=== PATIENT | male | born 1945 | race Caucasian/White ===

== ENCOUNTER 2020-11-25 16:16 | Emergency (ER) | payer MEDICARE, SELFPAY ==
[2020-11-25 16:26] VITALS: BP 157/113; PULSE 80; RESP 18; TEMP 36.6; O2SAT 100
--- NOTE | 2020-11-25 16:44 | ED.EAR ---
HPI - Ear Problem General Chief complaint: Ear Stated complaint: rt ear clogged Source: patient Mode of arrival: ambulatory Limitations: no limitations History of Present Illness HPI Narrative: Patient is a 75-year-old male who presents complaining with decreased hearing and right ear pain starting this a.m. Patient reports awaking and saw discharge from right ear. He denies fever, headache or known injury. He denies all other complaints at this time. Patient has not taking [id number]-[id number] medications prior to arrival. MD Complaint: ear pain, ear discharge and decreased hearing Location: right ear Related Data Home Medications Medication Instructions Recorded Confirmed ezetimibe 10 mg PO DAILY 11/25/20 11/25/20 hydrochlorothiazide 25 mg PO DAILY 11/25/20 11/25/20 Allergies Allergy/AdvReac Type Severity Reaction Status Date / Time cephalexin AdvReac Severe Rash Verified 11/25/20 16:46 Review of Systems Review of Systems: CONSTITUTIONAL: Denies fever, chills, or sweats. EYES: Denies visual changes, redness, or discharge. ENT: Reports right otalgia and decreased. CARDIOVASCULAR: Denies chest pain, palpitations, or edema. RESPIRATORY: Denies cough or dyspnea. GASTROINTESTINAL: Denies abdominal pain, nausea, vomiting, or diarrhea. GENITOURINARY: Denies dysuria or hematuria. SKIN: Denies rash or itching. MUSCULOSKELETAL: Denies back pain, joint pain, or myalgia. NEUROLOGIC: Denies headache, numbness, dizziness, or weakness. PSYCHIATRIC: Denies anxiety or depression. [facility] Past Medical History Medical History (Updated 11/25/20 @ 17:57 by MELITA Knott) Arthritis Colon polyps HTN (hypertension) Hypercholesterolemia Umbilical hernia Surgical History Surgical History H/O Spinal surgery H/O umbilical hernia repair Hx of tonsillectomy Social History Social History (Updated 11/25/20 @ 17:58 by MELITA Knott) Smoking status: Never smoker Alcohol intake: current Alcohol use details: Occasional Substance use: never Living arrangements: with family Comments At the time of signature, I have reviewed and agree with nursing past medical, surgical, social, and family history unless otherwise noted. Please see nursing chart for further information. There is no relevant family history pertinent to the presenting complaint. Exam Narrative: GENERAL: Well-appearing, well-nourished, and in no acute distress. HEAD: Normocephalic, atraumatic. EYES: EOMI. No redness or drainage. Conjunctiva are normal. ENT: Mucous membranes pink and moist. Left TM normal, right ear canal filled with pus and small amount of blood in canal NECK: AROM. Supple. No lymphadenopathy. CHEST: No respiratory distress. HEART: Regular rate and rhythm. EXTREMITIES: Normal range of motion. SKIN: Warm, dry, no rash. NEURO: No focal deficits. Alert and oriented x3. Gait steady. PSYCH: Normal affect. No signs of depression or anxiety. Course Vital Signs Vital signs: Vital Signs Temperature 36.6 C 11/25/20 16:26 Pulse Rate 80 11/25/20 16:26 Respiratory Rate 18 11/25/20 16:26 Blood Pressure 157/113 H 11/25/20 16:26 Pulse Oximetry 100 11/25/20 16:26 Temperature 36.6 C 11/25/20 16:26 Pulse Rate 80 11/25/20 16:26 Respiratory Rate 18 11/25/20 16:26 Blood Pressure 157/113 H 11/25/20 16:26 Pulse Oximetry 100 11/25/20 16:26 Reviewed. Patient has been instructed to follow-up with his PCP regarding his blood pressure. Medical Decision Making Vital Signs Vital Signs: Vital Signs Temperature 36.6 C 11/25/20 16:26 Pulse Rate 80 11/25/20 16:26 Respiratory Rate 18 11/25/20 16:26 Blood Pressure 157/113 H 11/25/20 16:26 Pulse Oximetry 100 11/25/20 16:26 Temperature 36.6 C 11/25/20 16:26 Pulse Rate 80 11/25/20 16:26 Respiratory Rate 18 11/25/20 16:26 Blood Pressure 157/113 H 11/25/20 16:26 P
== END 2020-11-25 17:10 | disposition home or self-care (01) ==
PROVIDERS: Emergency Provider Nurse Practitioner; PCP Family Medicine Adolescent Medicine
DX: H66.011 Acute suppurative otitis media with spontaneous rupture of ear drum, right ear (principal); M19.90 Unspecified osteoarthritis, unspecified site; I10 Essential (primary) hypertension; E78.00 Pure hypercholesterolemia, unspecified
CPT/HCPCS: 99213; G0463

== ENCOUNTER → 2021-10-02 16:48 | Outpatient (CLI) | payer MEDICARE, SELFPAY ==
--- NOTE | ~2021-10-02 | MR_ITS ---
EXAMINATION: MR lumbar spine wo con DATE: 10/02/2021 17:56 INDICATION: Low back pain. Unspecified fall, initial encounter. TECHNIQUE: Magnetic resonance imaging (MRI) of the lumbar spine was performed without intravenous con trast. Sequences included sagittal T2-weighted FSE, sagittal T2-weighted FS FSE, sagittal T1-weighted FSE, and axial T2-weighted FSE. COMPARISON: None FINDINGS: There is 13 degrees dextroscoliosis of thoracolumbar spine. There is 4 mm retrolisthesis of L2 on L3 and L3 on L4. There is 3 mm anterolisthesis of L4 on L5. There is 7 mm retrolisthesis of L5 on S1. Vertebral body heights are normal. There is moderately decreased disc height at T12-L1 and L1 -L2, severely decreased disc height at L2-L3 and L3-L4, and mildly decreased disc height at L4-L5. Th ere is severely decreased disc height at L5-S1 with interbody fusion. Epidural lipomatosis is noted. There is ligamentum flavum hypertrophy at the disc levels from T12-L1 through L4-L5. The distal spina l cord signal intensity is normal. The conus medullaris is at L1. The following disc levels are speci fically discussed: T12-L1: The disc is bulging with superimposed left central and subarticular zone extrusion. There is moderate right and severe left facet joint osteoarthritis. There is mild bilateral neural foraminal s tenosis. There is mild central canal stenosis. There is moderate stenosis of left lateral recess. L1-L2: The disc is bulging. There is mild bilateral facet joint osteoarthritis. There is mild bilater al neural foraminal stenosis. There is mild central canal stenosis. L2-L3: The disc is bulging and has an annular fissure. There is moderate bilateral facet joint osteoa rthritis. There is moderate bilateral neural foraminal stenosis. There is mild central canal stenosis . There is moderate stenosis of left lateral recess. L3-L4: The disc is bulging and has an annular fissure. There is severe bilateral facet joint osteoart hritis. There is moderate bilateral neural foraminal stenosis. There is severe central canal stenosis . L4-L5: The disc is bulging and has an annular fissure. There is severe bilateral facet joint osteoart hritis. There is moderate bilateral neural foraminal stenosis. There is severe central canal stenosis . L5-S1: There is moderate bilateral facet joint hypertrophy. There is mild bilateral neural foraminal stenosis. There is mild central canal stenosis with posterior decompression. IMPRESSION: 1. Severe lumbar spondylosis. Reviewed, dictated and finalized at location A.
== END ==
PROVIDERS: PCP Family Medicine Adolescent Medicine; Visit Provider Physician Assistant
DX: R20.2 Paresthesia of skin (principal); M47.896 Other spondylosis, lumbar region
CPT/HCPCS: 72148

== ENCOUNTER → 2021-10-25 13:54 | Outpatient (CLI) | payer MEDICARE, SELFPAY ==
--- NOTE | ~2021-10-25 | XR_ITS ---
EXAMINATION: XR lumbar spine min 4V DATE: 10/25/2021 14:14 INDICATION: Back pain. TECHNIQUE: 4 views of lumbar spine including flexion and extension views were obtained. COMPARISON: Lumbar spine MRI 10/02/2021 FINDINGS: There is 22 degrees dextroscoliosis of thoracolumbar spine. There is 3 mm retrolisthesis of L2 on L3 and L3 on L4 and 5 mm anterolisthesis of L4 on L5. Vertebral body heights are normal. There is interbody fusion at L5-S1. There is severely decreased disc height from L1-L2 through L3-L4 and m oderately decreased disc height at L4-L5. There is multilevel severe facet joint osteoarthritis. The spine is hypomobile with flexion and extension. IMPRESSION: 1. Severe lumbar spondylosis. 2. Thoracolumbar dextroscoliosis. Reviewed, dictated and finalized at location A.
== END ==
PROVIDERS: PCP Family Medicine Adolescent Medicine; Visit Provider Neurological Surgery
DX: M47.896 Other spondylosis, lumbar region (principal); M41.9 Scoliosis, unspecified
CPT/HCPCS: 72110

== ENCOUNTER 2022-04-16 10:45 | Outpatient (CLI) | payer MEDICARE, SELFPAY ==
--- NOTE | ~2022-04-16 | CT_ITS ---
EXAMINATION: CT inject muscle 1-2 w imaging DATE: 04/16/2022 11:36 INDICATION: Right piriformis muscle pain. TECHNIQUE: The procedure including the risks, benefits, and alternatives was discussed with the patie nt. Risks discussed included bleeding and infection. The patient verbalized understanding of the risk s and agreed to proceed. The skin overlying the right piriformis muscle was prepped and draped in us ua sterile fashion. Anesthetic was administered with 1% lidocaine subcutaneously. A 22 gauge needl e was advanced under CT guidance into the right piriformis muscle. 2 mL 1% lidocaine and 1 mL 80 mg/m L Depo-Medrol were injected. The dose-length product was 180.99 mGy-cm. The needle was removed and th e entry site was cleaned and dressed. There were no immediate complications. FINDINGS: CT images demonstrate the needle tip in the right piriformis muscle. IMPRESSION: 1. CT-guided right piriformis muscle injection with local anesthetic and steroid. Reviewed, dictated and finalized at location A. TS PHYSIOLOGIST IMPRESSION: 1. CT-guided right piriformis muscle injection with local anesthetic and stero id.
== END 2022-04-16 10:46 | disposition home or self-care (01) ==
PROVIDERS: PCP Family Medicine Adolescent Medicine; Visit Provider Nurse Practitioner Family
DX: G57.01 Lesion of sciatic nerve, right lower limb (principal); M79.18 Myalgia, other site
CPT/HCPCS: 20552; 77012; J1040

== ENCOUNTER 2022-07-02 05:42 | Inpatient (IN) | payer MEDICARE, SELFPAY ==
[2022-07-02] VITALS (34 sets, daily range): BP systolic 88–118; BP diastolic 8–76; PULSE 70–105; RESP 15–23; TEMP 36.5–37.8; O2SAT 90–100; BMI 36.3
--- NOTE | ~2022-07-02 | CT_ITS ---
EXAMINATION: CT abdomen pelvis wo con DATE: 07/02/2022 07:08 INDICATION: Right lower quadrant abdominal pain. Nausea, vomiting, and diarrhea. TECHNIQUE: Computed tomography (CT) of the abdomen and pelvis was performed without intravenous contr ast. Automated exposure control and iterative reconstruction technique were employed. The dose-length product was 1496.19 mGy-cm. COMPARISON: None. FINDINGS: The visualized portions of the lung bases demonstrate mild atelectasis. No pleural effusion . The heart size is normal. No pericardial effusion. There is a small sliding hiatal hernia. The live r, gallbladder, spleen, pancreas, and adrenal glands are normal. There are cysts in the kidneys measu ring up to 2.1 cm on the left. There is a 1 mm stone in right kidney. There are bilateral inguinal he rnias containing fat. The prostate is mildly enlarged. There is diverticulosis of the colon without e vidence of diverticulitis. There are appendicoliths in the appendix, which is fluid-filled and dilate d to 16 mm with adjacent fat stranding, consistent with acute appendicitis. There is an umbilical her suzie containing fat. There are a few punctate foci of free intraperitoneal gas in the anterior abdomen . There is severe lumbar spondylosis. IMPRESSION: 1. Acute appendicitis. 2. Punctate foci of free intraperitoneal gas. In the absence of recent surgery, this finding is consi stent with perforated viscus (such as the appendix). 3. Umbilical hernia and inguinal hernias containing fat. 4. Small sliding hiatal hernia. Reviewed, dictated and finalized at location A. IMPRESSION: 1. Acute appendicitis. 2. Punctate foci of free intraperitoneal gas. In the absence of recent surgery, this finding is consistent with perforated viscus (such as the appendix). 3. Umbilical hernia and inguinal hernias containing fat. 4. Small sliding hiatal hernia.
--- NOTE | ~2022-07-02 | XR_ITS ---
XR abdomen NG/feed tube insert INDICATION: Evaluate NG tube position. TECHNIQUE: Limited KUB perform for evaluating NG tube . COMPARISON: No prior studies for comparison. FINDINGS: NG tube tip in the stomach. Visualized bowel gas pattern is unremarkable.There is bibasila r atelectasis. IMPRESSION: 1: NG tube tip in the stomach. Reviewed, dictated and finalized at location B.
--- NOTE | ~2022-07-02 | CT_ITS ---
EXAMINATION: CT abdomen pelvis wo con DATE: 07/05/2022 18:12 INDICATION: Perforated appendicitis. TECHNIQUE: Computed tomography (CT) of the abdomen and pelvis was performed without intravenous contr ast. Automated exposure control and iterative reconstruction technique were employed. The dose-length product was 1603.67 mGy-cm. COMPARISON: 07/02/2022 FINDINGS: Small bilateral pleural effusions with dependent atelectasis in the bilateral lower lobes. Heart size is normal. No pericardial effusion. Nasogastric tube extends into the body the stomach with distal t ip curving back to the fundus. Liver, gallbladder, spleen, pancreas and bilateral adrenal glands are normal. Bilateral renal cysts the largest measuring up to 2.3 cm the left kidney. Unchanged nonobstru cting 1 mm right renal stone. Interval appendectomy with suture line at the tip the cecum. There is a surgical drain extending from right to left across the deep pelvis. Minimal free fluid scattered thr oughout the mesentery. No abscess or free intraperitoneal gas. There are multiple gas and fluid-fille d loops of small bowel extending to the colon without melly dilation or discrete transition point to suggest obstruction and this is most consistent with postoperative ileus. There are few scattered col onic diverticula without adjacent inflammatory stranding to suggest diverticulitis. Gas and a Bowman c atheter within the partially decompressed bladder which appears otherwise unremarkable. Prostatomegal y. Bilateral inguinal hernias containing fat which extends to the scrotum on both the left and right. Small fat-containing umbilical hernia. No pathologically enlarged abdominal or pelvic lymphadenopath y. Mild lumbar dextrocurvature with severe spondylosis. IMPRESSION: 1. Status post appendectomy with minimal free fluid scattered throughout the mesentery but no evident abscess or free intraperitoneal gas. 2. Multiple gas and fluid-filled but not likely dilated loops of small bowel without discrete transit ion point most consistent with a postoperative ileus. 3. 1 mm right renal stone. 4. Fat-containing umbilical and bilateral inguinal hernias. Reviewed, dictated and finalized at location A. IMPRESSION: 1. Status post appendectomy with minimal free fluid scattered throughout the me sentery but no evident abscess or free intraperitoneal gas. 2. Multiple gas and fluid-filled but not likely dilated loops of small bowel wi thout discrete transition point most consistent with a postoperative ileus. 3. 1 mm right renal stone. 4. Fat-containing umbilical and bilateral inguinal hernias.
--- NOTE | 2022-07-02 05:50 | ED.ABDPAIN ---
HPI - Abdominal Pain General Chief Complaint: Abdominal Pain <Kristin Yates MD - Last Filed: 07/02/22 07:04> Stated Complaint: n/v/d <Kristin Yates MD - Last Filed: 07/02/22 07:04> Source: patient <Kristin Yates MD - Last Filed: 07/02/22 07:04> Mode of arrival: ambulatory <Kristin Yates MD - Last Filed: 07/02/22 07:04> Limitations: no limitations <Kristin Yates MD - Last Filed: 07/02/22 07:04> History of Present Illness HPI narrative: Patient is a 76-year-old male with a history of spinal stenosis, hypertension, hyperlipidemia, presenting to the emergency department for evaluation of right lower quadrant abdominal pain. Patient reports a sharp, aching pain in the right lower quadrant which has been constant over the past 12 hours. Patient reports associated fever, chills, nausea and decreased appetite secondary to the pain. He denies dysuria, hematuria, constipation or diarrhea. No radiation of the pain to the flank. No overlying skin changes or rashes. Patient does have a history of umbilical hernia repair over a decade ago, denies history of other abdominal surgeries. He denies any chest pain, cough, shortness of breath. Last oral intake yesterday morning, over 12 hours ago. Patient was transported via EMS, noted to have borderline hypotension in route packet. IV access was obtained, patient was initiated on IV fluid bolus. <Kristin Yates MD - Last Filed: 07/02/22 07:04> Related Data Home Medications: Home Medications Medication Instructions Recorded Confirmed aspirin 325 mg tablet 325 mg PO DAILY PRN fever 09/13/21 07/02/22 fexofenadine 180 mg tablet 180 mg PO DAILY 09/13/21 07/02/22 gabapentin 300 mg capsule 600 mg PO BID 12/20/21 07/02/22 <Kristin Yates MD - Last Filed: 07/02/22 07:04> Allergies/Adverse Reactions: Allergies Allergy/AdvReac Type Severity Reaction Status Date / Time nickel Allergy Mild Other Verified 07/02/22 12:40 cephalexin AdvReac Severe Rash Verified 07/02/22 12:40 <Kristin Yates MD - Last Filed: 07/02/22 07:04> Review of Systems Review of Systems: CONSTITUTIONAL: Reports fever and chills EYES: Denies visual changes, redness, or discharge. ENT: Denies rhinorrhea, congestion, sore throat, or otalgia. CARDIOVASCULAR: Denies chest pain, palpitations, or edema. RESPIRATORY: Denies cough or dyspnea. GASTROINTESTINAL: Reports abdominal pain in the right lower quadrant, nausea, denies diarrhea or constipation GENITOURINARY: Denies dysuria or hematuria. SKIN: Denies rash or itching. MUSCULOSKELETAL: Reports chronic lower back pain, not worsened from normal, joint pain, or myalgia. NEUROLOGIC: Denies headache, numbness, or weakness. <Kristin Yates MD - Last Filed: 07/02/22 07:04> [facility] Past Medical History Medical History: Medical History Acute right hip pain Arthritis Colon polyps HTN (hypertension) Hypercholesterolemia Low Back Pain Lumbar stenosis Piriformis syndrome Trochanteric bursitis, right hip Umbilical hernia <Kristin Yates MD - Last Filed: 07/02/22 07:04> Surgical History Surgical History: Surgical History H/O Spinal surgery (1984) H/O umbilical hernia repair (2011) Hx of tonsillectomy <Kristin Yates MD - Last Filed: 07/02/22 07:04> Family History Family History: Family History Father Acute myocardial infarction Heart disease Mother Acute myocardial infarction Heart disease <Kristin Yates MD - Last Filed: 07/02/22 07:04> Social History Social History: Social History Smoking status: Never smoker Second hand tobacco smoke exposure: Yes Alcohol intake: current Alcohol use details: Occasional Substance use: never Subs
[2022-07-02] MEDS: MORPHINE SULFATE (*CRX) 4 MG/ML INJ IV PUSH (05:57)
[2022-07-02] MEDS: ONDANSETRON INJ 4 MG/2 ML VIAL IV PUSH (05:57)
[2022-07-02] MEDS: SODIUM CHLORIDE 0.9% IV 1,000 ML 999 ML IV CONT ×3 (05:58→10:34)
[2022-07-02 06:24] LABS: Basophils Absolute Auto 0.1 K/mm3 (0.0-0.1); Basophils Percent Auto 0.6 % (0.2-1.2); Eosinophils Percent Auto 0.1 % (0-4.4); Hematocrit 52.7 % (42.0-52.0); Hemoglobin 15.6 g/dL (14.0-18.0); Immature Granulocyte Percent A 0.6 % (0-0.5); Lymphocytes Absolute Auto 1.77 K/mm3 (0.9-3.2); Lymphocytes Percent Auto 10.1 % (18.3-44.2); Mean Corpuscular HGB Conc 29.6 g/dl (32-36); Mean Corpuscular Hemoglobin 28.8 pg (26-34); Mean Corpuscular Volume 97.4 fl (80-100); Monocytes Absolute Auto 1.4 K/mm3 (0.1-0.6); Monocytes Percent Auto 8.1 % (2.6-8.5); Neutrophils Absolute Auto 14.1 K/mm3 (1.3-6.7); Neutrophils Percent Auto 80.5 % (45.5-73.1); Platelet Count Result 283 k/mm3 (150-375); Red Blood Count 5.41 M/mm3 (4.6-6.20); Red Cell Distribution Width 14.5 % (11.5-14.5); White Blood Count 17.5 K/mm3 (4.5-10.0)
[2022-07-02 06:45] LABS: Hypochromasia 1+ (NORMAL); Platelet Estimate Adequate (Adequate)
[2022-07-02 06:46] LABS: Schistocytes None Seen (NORMAL)
[2022-07-02 06:58] LABS: Estimated Glomerular Filt Rate 28
[2022-07-02 07:02] LABS: Lactic Acid Reflex 4.9 mmol/L (0.7-2.0)
[2022-07-02] MEDS: ceFAZolin 2 GM/D5W 50 ML 2 GM/50 ML BAG IVPB (08:11)
[2022-07-02 08:13] LABS: Alanine Aminotransferase 22 U/L (6-50); Albumin Level 3.6 g/dL (3.5-5.1); Alkaline Phosphatase 78 U/L (38-126); Anion Gap 9 mmol/L (8-16); Aspartate Amino Transferase 22 U/L (17-59); Bilirubin,Total 0.9 mg/dL (0.2-1.3); Blood Urea Nitrogen 30 mg/dL (9-20); Calcium 8.1 mg/dL (8.4-10.2); Carbon Dioxide 24 mmol/L (22-30); Chloride 102 mmol/L (98-107); Estimated Glomerular Filt Rate 35; Glucose 123 mg/dL (65-110); Lipase 29 U/L (23-300); Potassium 4.9 mmol/L (3.4-5.0); Sodium 135 mmol/L (137-145)
[2022-07-02] MEDS: AZTREONAM 1 GM in SODIUM CHLORIDE 0.9% IV 50 ML 100 ML IVPB ×2 (08:34→18:18)
--- NOTE | 2022-07-02 08:54 | PM.IMHP ---
H&P: HPI History of Present Illness Date/Time: 07/02/22 08:54 Chief Complaint: RLQ abdominal pain Narrative: This is a 76-year-old man who presented to the ER today with complaints of right lower quadrant abdominal pain x 12 hours. He reports going to bed in his normal state of health and waking up through the night Review of Systems Review of Systems: All systems reviewed & are unremarkable except as noted in HPI and below Constitutional: Constitutional: Reports no additional constitutional complaints, Reports chills, Denies fatigue, Denies fever(s) and Denies poor appetite Eyes: Eyes: Reports no additional eye complaints ENT: Reports system reviewed and no additional complaints, except as documented and Denies dizziness Cardiovascular: Cardiovascular: Reports no additional cardiovascular complaints, Denies chest pain and Denies leg edema Respiratory: Respiratory: Reports no additional respiratory complaints, Denies cough and Denies dyspnea Gastrointestinal: Gastrointestinal: Reports as per HPI, Reports no additional gastrointestinal complaints, Reports abdominal pain, Denies change in stool character, Denies coffee ground emesis, Reports nausea, Reports vomiting and Denies hematemesis Genitourinary: Genitourinary: Reports no additional male genitourinary complaints Musculoskeletal: Musculoskeletal: Reports no additional musculoskeletal complaints, Denies abnormal gait and Denies joint swelling Integumentary/Breasts: Skin/Breast: Reports system reviewed and no additional complaints, except as docu Neurologic: Reports system reviewed and no additional complaints, except as documented, Denies headache(s), Denies focal weakness, Denies numbness and Denies tingling PMFSH Past Medical History Medical History Acute right hip pain Arthritis Colon polyps HTN (hypertension) Hypercholesterolemia Low Back Pain Lumbar stenosis Piriformis syndrome Trochanteric bursitis, right hip Umbilical hernia Surgical History Surgical History H/O Spinal surgery (1984) H/O umbilical hernia repair (2011) Hx of tonsillectomy Family History Family History Father Acute myocardial infarction Heart disease Mother Acute myocardial infarction Heart disease Social History Social History Smoking status: Never smoker Second hand tobacco smoke exposure: Yes Alcohol intake: current Alcohol use details: Occasional Substance use: never Substance use type: does not use Living arrangements: with family Occupation/Education: retired Gender identity (if verbalized by the patient): Male Spiritual care concerns: No Agree to blood products: Yes Meds Home Medications and Allergies Home Medications Medication Instructions Recorded Confirmed Type aspirin 325 mg tablet 325 mg PO DAILY PRN fever 09/13/21 03/19/22 History fexofenadine 180 mg tablet 180 mg PO DAILY 09/13/21 03/19/22 History gabapentin 300 mg capsule 600 mg PO BID 12/20/21 03/19/22 History diclofenac sodium 75 mg See Rx Instructions .Route 03/17/22 03/19/22 Rx tablet,delayed release .COMPLEX #180 tabs ezetimibe 10 mg tablet See Rx Instructions .Route 03/17/22 03/19/22 Rx .COMPLEX #90 tabs hydrochlorothiazide 25 mg tablet See Rx Instructions .Route 03/17/22 03/19/22 Rx .COMPLEX #90 tabs lisinopril 40 mg tablet 40 mg PO DAILY #90 tabs 03/19/22 03/19/22 Rx tramadol 50 mg tablet 50 mg PO Q4H PRN pain #90 tabs 04/16/22 Rx levofloxacin 500 mg tablet 500 mg PO DAILY #10 tabs 05/14/22 Rx benzonatate 200 mg capsule 200 mg PO TID PRN cough #30 caps 05/21/22 Rx Allergies Allergy/AdvReac Type Severity Reaction Status Date / Time nickel Allergy Mild Other Verified 07/02/22 05:50 cephalexin AdvReac Severe Rash Verified 07/02/22 05:50
--- NOTE | 2022-07-02 09:08 | PM.CNGS ---
Assessment and Plan Assessment and plan (1) Acute perforated appendicitis: Code(s): K35.32 - Acute appendicitis with perforation, localized peritonitis, and gangrene, without abscess Status: Acute Assessment and Plan: CT evidence of acute perforated appendicitis. No abscess seen on CT. He also presents with sepsis and acute renal failure. Discussed treatment options with the patient of both non operative versus surgical management with the patient. We discussed a laparoscopic appendectomy under general anesthesia. Description of the procedure, risks, benefits, alternatives, and expected recovery were discussed with the patient in detail. Also discussed the possibility of having to convert to an open procedure if necessary. Patient wishes to proceed with surgery. Given the concern of perforation and presentation with sepsis/RIC, he will require IV antibiotics and monitoring postoperatively. We would recommend to switch to IV aztreonam and metronidazole for broad-spectrum IV antibiotics. Continue IV fluid resuscitation, analgesics, and NPO status. (2) Sepsis: Code(s): A41.9 - Sepsis, unspecified organism Status: Acute Assessment and Plan: Criteria met on admission with hypotension, leukocytosis, acute renal failure, lactic acidosis. Secondary to perforated appendicitis. Blood cx pending. Continue broad-spectrum IV antibiotics and IV fluid resuscitation. Plan to proceed to the OR for urgent appendectomy today. (3) RIC (acute kidney injury): Code(s): N17.9 - Acute kidney failure, unspecified Status: Acute Assessment and Plan: Creatinine 2.3 on admission. Labs from December 2021 were normal. This improved already with IV fluid resuscitation. Likely related to sepsis/dehydration. Continue IV fluids and monitor labs. (4) HTN (hypertension): Code(s): I10 - Essential (primary) hypertension Status: Acute Plan I have discussed the patient's case and plan of care with Dr. Moreno. Thank you for allowing us to see the patient in consultation and we will continue to follow along with you. History of Present Illness Consult details Consult date: 07/02/22 Reason for consult: other (Acute perforated appendicitis) Requesting physician: Miguel Angel Comer MD Narrative: This is a 76-year-old man who presented to the ER today with complaints of right lower quadrant abdominal pain x 12 hours. He reports going to bed last night feeling well, and waking up with right lower quadrant abdominal pain and chills. The pain and chills continued to wake him up throughout the night. He developed nausea with 2 episodes of vomiting. His abdominal pain continued to worsen, and he presented to the ER this morning for further evaluation. Denies ever having this pain in the past. Labs were significant for a white blood cell count of 17,500, creatinine 2.3, GFR 28, lactic acid 4.9. CT scan of the abdomen and pelvis without contrast showed acute appendicitis with punctate foci of free intraperitoneal gas likely perforated appendicitis, umbilical hernia and inguinal hernias containing fat, and small sliding hiatal hernia. In the ER, he was found to be hypotensive with a blood pressure of 92/60 and as low as 88/58. His blood pressure improved with IV fluids. He has been afebrile. Our service was consulted by the ED physician for the acute perforated appendicitis. He is now seen in the ER. His abdominal pain has improved significantly after receiving analgesics in the ER. He was given 1 dose of Ancef IV in the ER. Remote history of an umbilical hernia repair. His home medication list has aspirin 325 mg daily listed and he reports only taking aspirin occasionally when he has a headache. This is not a regularly scheduled medication. Review of Systems Review of Systems: All systems reviewed & are unremarkable except as noted in HPI and below Constitutional: Constitutional: Reports no additional constitutional comp
[2022-07-02] MEDS: metroNIDAZOLE 500 MG/ISO 100ML 500 MG/100 ML BAG 100 MG IVPB ×3 (09:26→23:44)
[2022-07-02 09:45] LABS: Reflex Lactic Acid Yes or No Add Lactic
--- NOTE | 2022-07-02 09:51 | PC.NURSE ---
Hospitalist in ED to evaluated pt and gave Verbal order for 1 more NS bolus
--- NOTE | 2022-07-02 10:42 | ECG_ITS ---
Measurements Intervals [place] Rate: 86 P: 31 IL: 144 QRS: -20 QRSD: 98 T: 52 QT: 370 QTc: 444 Interpretive Statements SINUS RHYTHM DELAYED PRECORDIAL R/S TRANSITION LOW QRS VOLTAGE IN PRECORDIAL LEADS BASELINE WANDER- I, II BORDERLINE ECG NO PREVIOUS ECG AVAILABLE FOR COMPARISON Electronically Signed On 07-02-2022 11:06:13 CDT by Sammy Spear D.O.
[2022-07-02 10:48] LABS: Appearance Urine Cloudy (Clear); Bilirubin Urine 1+ (Negative); Blood Urine Negative (Negative); Color Urine Dark Yellow (Yellow); Glucose Urine UA Negative (Negative); Ketones Urine Trace mg/dL (Negative); Leukocyte Esterase Ur Trace LEU/UL (Negative); Nitrate Urine Negative (Negative); Protein Urine Trace mg/dL (Negative); Specific Grav Ur 1.022 (1.001-1.035)
[2022-07-02 11:20] LABS: Bacteria Urine 1+ /hpf; Mucus Urine Few /lpf; RBC Urine 0-2 /hpf (0-2); Squamous Epithelial Cell Urine Rare /hpf (Few)
[2022-07-02 11:27] LABS: Add Urine Microscopic? YES
[2022-07-02 11:44] LABS: Lactic Acid Reflex 2.1 mmol/L (0.7-2.0)
--- NOTE | 2022-07-02 12:07 | PM.IMHP ---
H&P: HPI History of Present Illness Date/Time: 07/02/22 12:07 Chief Complaint: severe abdominal pain Narrative: This is a 76-year-old man who presented to the ER today with complaints of right lower quadrant abdominal pain x 12 hours.? He reports going to bed last night feeling well, and waking up with right lower quadrant abdominal pain and chills.? The pain and chills continued to wake him up throughout the night.? He developed nausea with 2 episodes of vomiting.? His abdominal pain continued to worsen, and he presented to the ER this morning for further evaluation.? Labs were significant for a white blood cell count of 17,500, creatinine 2.3, GFR 28, lactic acid 4.9.? CT scan of the abdomen and pelvis without contrast showed acute appendicitis with punctate foci of free intraperitoneal gas likely perforated appendicitis, umbilical hernia and inguinal hernias containing fat, and small sliding hiatal hernia.? In the ER, he was found to be hypotensive with a blood pressure of 92/60 and as low as 88/58.? His blood pressure? improved with IV fluids.? He has been afebrile.? He was given 1 dose of Ancef IV in the ER.? general surgery was consulted. Review of Systems Review of Systems: All systems reviewed & are unremarkable except as noted in HPI and below Constitutional: Constitutional: Reports no additional constitutional complaints, Reports chills, Denies fatigue, Denies fever(s), Reports night sweats and Denies poor appetite Eyes: Eyes: Reports no additional eye complaints ENT: Reports system reviewed and no additional complaints, except as documented and Denies dizziness Cardiovascular: Cardiovascular: Reports no additional cardiovascular complaints, Denies chest pain at rest, Denies chest pain with activity, Reports leg edema (intermittent chronic foot/ankle swelling), Denies dyspnea on exertion and Denies orthopnea Respiratory: Respiratory: Reports no additional respiratory complaints, Denies cough and Denies dyspnea Gastrointestinal: Gastrointestinal: Reports as per HPI, Reports no additional gastrointestinal complaints, Reports abdominal pain, Denies bloating, Denies change in stool character, Denies coffee ground emesis, Denies constipation, Denies diarrhea, Reports nausea and Denies hematemesis Genitourinary: Genitourinary: Reports no additional male genitourinary complaints and Denies dysuria Musculoskeletal: Musculoskeletal: Reports no additional musculoskeletal complaints, Denies abnormal gait and Denies joint swelling Integumentary/Breasts: Skin/Breast: Reports system reviewed and no additional complaints, except as docu Neurologic: Reports system reviewed and no additional complaints, except as documented, Denies headache(s), Denies focal weakness, Denies numbness and Denies tingling PMFSH Past Medical History Medical History Acute right hip pain Arthritis Colon polyps HTN (hypertension) Hypercholesterolemia Low Back Pain Lumbar stenosis Piriformis syndrome Trochanteric bursitis, right hip Umbilical hernia Surgical History Surgical History H/O Spinal surgery (1984) H/O umbilical hernia repair (2011) Hx of tonsillectomy Family History Family History Father Acute myocardial infarction Heart disease Mother Acute myocardial infarction Heart disease Social History Social History Smoking status: Never smoker Second hand tobacco smoke exposure: Yes Alcohol intake: current Alcohol use details: Occasional Substance use: never Substance use type: does not use Living arrangements: with family Occupation/Education: retired Gender identity (if verbalized by the patient): Male Spiritual care concerns: No Agree to blood products: Yes Meds Home Medications and Allergies [facility]
--- NOTE | 2022-07-02 12:27 | WPDHPUPDATE1 ---
History and Physical Update Update Date/Time: 07/02/22 12:27 History and Physical has been reviewed, including an updated exam of the patient. There are NO changes in the patient's condition. Risks, benefits, and alternatives have been discussed and questions answered. Patient agrees to proceed with procedure.
[2022-07-02] MEDS: LACTATED RINGERS 1,000 ML 30 ML IV CONT ×2 (12:30→15:15)
--- NOTE | 2022-07-02 13:24 | WPDANESEPPF ---
Anes - Initial Pre Proc Eval Procedure: Operation Date: 07/02/22 13:30 Proposed Procedures p Laparoscopic Appendectomy - Demarcus Moreno MD Date/Time: 07/02/22 13:24 Surgeon: Zaki Rebolledo MD Pre Op Diagnosis: acute perforated bowel Patient Data Age: 76 Gender: M Height: Weight: Last Vital Signs Temp 36.7 C 07/02/22 12:43 Pulse 88 07/02/22 12:43 Resp 16 07/02/22 12:43 BP 110/54 L 07/02/22 12:43 Pulse Ox 100 07/02/22 12:43 O2 Del Method Room Air 07/02/22 12:43 Allergies Allergy/AdvReac Type Severity Reaction Status Date / Time nickel Allergy Mild Other Verified 07/02/22 12:40 cephalexin AdvReac Severe Rash Verified 07/02/22 12:40 Home Medications Medication Instructions Recorded Confirmed Type aspirin 325 mg tablet 325 mg PO DAILY PRN fever 09/13/21 07/02/22 History fexofenadine 180 mg tablet 180 mg PO DAILY 09/13/21 07/02/22 History gabapentin 300 mg capsule 600 mg PO BID 12/20/21 07/02/22 History diclofenac sodium 75 mg See Rx Instructions .Route 03/17/22 07/02/22 Rx tablet,delayed release .COMPLEX #180 tabs ezetimibe 10 mg tablet See Rx Instructions .Route 03/17/22 07/02/22 Rx .COMPLEX #90 tabs hydrochlorothiazide 25 mg tablet See Rx Instructions .Route 03/17/22 07/02/22 Rx .COMPLEX #90 tabs lisinopril 40 mg tablet 40 mg PO DAILY #90 tabs 03/19/22 07/02/22 Rx tramadol 50 mg tablet 50 mg PO Q4H PRN pain #90 tabs 04/16/22 07/02/22 Rx levofloxacin 500 mg tablet 500 mg PO DAILY #10 tabs 05/14/22 07/02/22 Rx benzonatate 200 mg capsule 200 mg PO TID PRN cough #30 caps 05/21/22 07/02/22 Rx Laboratory Tests 07/02/22 07/02/22 07/02/22 06:17 06:42 06:54 WBC 17.5 H K/mm3 (4.5-10.0) RBC 5.41 M/mm3 (4.6-6.20) Hgb 15.6 g/dL (14.0-18.0) Hct 52.7 H % (42.0-52.0) MCV 97.4 fl (80-100) MCH 28.8 pg (26-34) MCHC 29.6 L g/dl (32-36) RDW 14.5 % (11.5-14.5) Plt Count 283 k/mm3 (150-375) MPV 12.0 H fl (7.4-10.4) Immature Gran % (Auto) 0.6 H % (0-0.5) Neut % (Auto) 80.5 H % (45.5-73.1) Lymph % (Auto) 10.1 L % (18.3-44.2) [place] % (Auto) 8.1 % (2.6-8.5) Eos % (Auto) 0.1 % (0-4.4) Baso % (Auto) 0.6 % (0.2-1.2) Lymph # (Auto) 1.77 K/mm3 (0.9-3.2) [place] # (Auto) 1.4 H K/mm3 (0.1-0.6) Eos # (Auto) 0.0 K/mm3 (0-0.3) Baso # (Auto) 0.1 K/mm3 (0.0-0.1) Abs Immat Gran (auto) 0.10 H K/mm3 (0.00-0.031) Absolute Neuts (auto) 14.1 H K/mm3 (1.3-6.7) Absolute Nucleated RBC 0.0 K/mm3 (0.0-0.012) Nucleated RBC % 0.0 % (0.0-0.2) Platelet Estimate Adequate (Adequate) Hypochromasia 1+ (NORMAL) Schistocytes None seen (NORMAL) Sodium Potassium Chloride Carbon Dioxide Anion Gap BUN Creatinine 2.30 H mg/dL (0.8-1.5) Estim Creat Clear Calc Not Reportable Estimated GFR 28 L (59 - ) Glucose Lactic Acid 4.9 H* mmol/L (0.7-2.0) Calcium Total Bilirubin AST ALT Alkaline Phosphatase Total Protein Albumin Lipase Urine Color Urine Appearance Urine pH Ur Specific [place] Urine Protein Urine Glucose (UA) Urine Ketones Ur Blood (Man) Urine Nitrate Urine Bilirubin Urine Urobilinogen Leukocyte Esterase Rfl Urine RBC Urine WBC Ur Squamous Epith Cells Urine Bacteria Hyaline Casts Granular Casts Urine Mucus 07/02/22 07/02/22 07/02/22 0
[2022-07-02] MEDS: LIDO 1%/EPINEPHRINE 1:100,000 50 ML VIAL 20 ML INFILTRATE (14:13)
--- NOTE | 2022-07-02 16:20 | P.OPB_ITS ---
Procedure Note - Brief Procedure Note - Brief Date of procedure: 07/02/22 Acute appendicitis with perforation Post-op diagnosis: Same Procedure performed: Laparoscopic appendectomy Surgeon: Demarcus Moreno MD Registrar [employer]: [employer] Anesthesia: GETTristen Implants: none Estimated blood loss (mL): 10 Urine output (mL): -200.0 Drains: Yes ( 15 Urdu ELSA drain pelvis) Packing: No Pathology: Yes Complications: No immediate complications Condition: Stable Disposition: PACU
--- NOTE | 2022-07-02 16:36 | W.PM.PROC2 ---
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 He had a couple episodes of nausea and vomiting. Workup in emergency room showed a elevated white blood count [address]233. CT scan of the abdomen and pelvis showed a likely perforated appendix. He presents now for emergent laparoscopic appendectomy. Findings Patient a perforated appendix with minimal fecal contamination. The cecum appeared to be viable at the base of the appendix. Description of Procedure After informed consent was obtained patient brought to the operating room was placed in supine position and general endotracheal anesthesia was administered. He already had a Bowman catheter in place. The abdomen was then prepped and draped in usual sterile fashion. A time-out was then performed correctly identifying the patient as well as procedure to be performed verified he was given scheduled IV antibiotics. I then of the abdomen the left upper quadrant utilizing a 5mm Optiview port. Once inside the abdomen I in insufflated to adequate pneumoperitoneum of 15mmHg CO2. The patient had a history of previous umbilical hernia repair with piece of mesh. There was some omental adhesions to this mesh but I could see into the right lower quadrant the and without taking down these adhesions. I then placed a 12mm Optiview port in the lower epigastric region and a 5mm trocar port in the suprapubic region and 1 more additional 5mm trocar port in the right lower quadrant the abdomen. I was able to visualize the appendix which was actually right on the surface and not retrocecal. A blunt dissection utilizing the suction sand control worker tip was able to separate the appendix from the surrounding terminal ileum. The appendix seemed to have perforated about 0.5cm distal to the base of the appendix. There was a small amount of fecal material outside of the lumen of the appendix which was quickly aspirated her out of the abdomen. I was then able to hold the appendix midportion in the make a defect through the mesoappendix just at the base of the appendix. I then used a 5mm Endo-DAISY stapler to divide the appendix flush with the cecum. A vascular reload to the Endo-DAISY staple was then used to divide the mesoappendix. The appendix was then placed in Endo-Catch bag and brought out through the 12mm trocar port site. It was passed off table sent to pathology for examination. I then thoroughly irrigated out the right lower quadrant abdomen and the pelvis with sterile saline solution. Hemostasis good a baseplate staple lines. I irrigated the pelvis until the fluid was no longer cloudy. I then placed a 15 [place] round Dashawn drain through the right lower quadrant trocar port site and placed the tip of the drain into the pelvis. The drain was secured at the skin level the 3-0 nylon suture. I then removed all the trocar ports under visualization all port sites appeared hemostatic. I then allowed the abdomen decompressed. The 12mm lower epigastric trocar port fascial defect was closed utilizing 2 separate 0 PDS sutures placed in a figure-eight fashion. The skin edges on the port site to the proximal utilizing a running subcuticular 4 Monocryl suture. The incisions were then cleaned the skin glue was applied. The drain was placed to after grenade bulb suction. The patient tolerated the procedure well no complications. All sponges, needles, and instrument counts were correct at the end procedure. EBL was _10_cc. The patient was awakened and taken to recovery in stable and satisfactory condition. Implants None Estimated Blood Loss 10 Urine Output -200.0 Drains Yes ( ELSA drain pelvis) Packing
--- NOTE | 2022-07-02 17:39 | ADMGEN ---
This patient, Ludin Menon, was admitted to IMU Room 209-01 on 07/02/22 at 1635. Patient/family oriented to hospital policies and general routines including ID bracelet, bed and alarms, visiting hours, pain management, procedures, bathroom and other care routines, personal items, smoking policy, room service/diet, and visiting hours. Information on how to activate the Rapid Response Team has been discussed. Patient/Family are encouraged to report perceived risks to care and to ask questions if they do not understand what they are told or what they should do.
[2022-07-02] MEDS: GABAPENTIN 300 MG CAPSULE 600 MG PO (18:18)
[2022-07-02] MEDS: SODIUM CHLORIDE 0.9% IV 1,000 ML 100 ML IV CONT (21:17)
[2022-07-02] MEDS: oxyCODONE HCL (*CRX) 5 MG TAB IR PO (21:30)
[2022-07-03] VITALS (15 sets, daily range): BP systolic 112–160; BP diastolic 53–78; PULSE 75–99; RESP 16–94; TEMP 36.5–37.2; O2SAT 94–100
[2022-07-03] MEDS: AZTREONAM 1 GM in SODIUM CHLORIDE 0.9% IV 50 ML 100 ML IVPB ×4 (00:40→23:24)
[2022-07-03] MEDS: oxyCODONE HCL (*CRX) 5 MG TAB IR PO ×5 (02:50→23:58)
[2022-07-03 04:48] LABS: Basophils Percent Auto 0.1 % (0.2-1.2); Hematocrit 36.2 % (42.0-52.0); Hemoglobin 11.5 g/dL (14.0-18.0); Immature Granulocyte Absolute 0.09 K/mm3 (0.00-0.031); Immature Granulocyte Percent A 0.7 % (0-0.5); Lymphocytes Absolute Auto 0.63 K/mm3 (0.9-3.2); Lymphocytes Percent Auto 4.6 % (18.3-44.2); Mean Corpuscular HGB Conc 31.8 g/dl (32-36); Mean Corpuscular Hemoglobin 28.7 pg (26-34); Mean Corpuscular Volume 90.3 fl (80-100); Mean Platelet Volume 12.4 fl (7.4-10.4); Monocytes Absolute Auto 0.7 K/mm3 (0.1-0.6); Monocytes Percent Auto 5.4 % (2.6-8.5); Neutrophils Absolute Auto 12.2 K/mm3 (1.3-6.7); Neutrophils Percent Auto 89.2 % (45.5-73.1); Platelet Count Result 213 k/mm3 (150-375); Red Blood Count 4.01 M/mm3 (4.6-6.20); Red Cell Distribution Width 14.5 % (11.5-14.5); White Blood Count 13.7 K/mm3 (4.5-10.0)
[2022-07-03 05:02] LABS: Anion Gap 7 mmol/L (8-16); Blood Urea Nitrogen 34 mg/dL (9-20); Calcium 7.3 mg/dL (8.4-10.2); Carbon Dioxide 24 mmol/L (22-30); Chloride 105 mmol/L (98-107); Estimated CRCL calculation 43 ml/min; Estimated Glomerular Filt Rate 37; Glucose 122 mg/dL (65-110); Potassium 4.6 mmol/L (3.4-5.0); Sodium 136 mmol/L (137-145)
[2022-07-03 05:14] LABS: Anisocytosis 1+ (NORMAL); Burr Cells 2+ (NORMAL); Platelet Estimate Adequate (Adequate)
[2022-07-03 05:15] LABS: Schistocytes None Seen (NORMAL)
[2022-07-03] MEDS: SODIUM CHLORIDE 0.9% IV 1,000 ML 100 ML IV CONT ×2 (06:13→23:12)
[2022-07-03] MEDS: metroNIDAZOLE 500 MG/ISO 100ML 500 MG/100 ML BAG 100 MG IVPB ×3 (06:15→17:17)
[2022-07-03] MEDS: ENOXAPARIN 40 MG/0.4 ML SYRINGE SUB-Q (08:03)
[2022-07-03] MEDS: GABAPENTIN 300 MG CAPSULE 600 MG PO ×2 (08:03→17:17)
[2022-07-03] MEDS: lisinopriL 20 MG TABLET 40 MG PO (08:04)
[2022-07-03] MEDS: hydroCHLOROthiazide 25 MG TABLET PO (08:04)
[2022-07-03] MEDS: LORATADINE 10 MG TABLET PO (08:04)
[2022-07-03] MEDS: EZETIMIBE 10 MG TABLET PO (08:04)
[2022-07-03] MEDS: PANTOPRAZOLE 40 MG TABLET PO (08:04)
[2022-07-03] MEDS: LACTATED RINGERS 1,000 ML 999 ML IV CONT (09:33)
--- NOTE | 2022-07-03 12:13 | PM.IMPN ---
Progress Note: A&P Assessment and Plan (1) Acute perforated appendicitis: Code(s): K35.32 - Acute appendicitis with perforation, localized peritonitis, and gangrene, without abscess Status: Acute Assessment and Plan: Status post laparoscopic appendectomy. Continue IV aztreonam per surgery recommendations. continue maintenance IV fluids. Advance diet as tolerated (2) Sepsis: Code(s): A41.9 - Sepsis, unspecified organism Status: Acute Assessment and Plan: secondary to acute perforated appendicitis. Continue IV antibiotics. continue maintenance IV fluids. (3) RIC (acute kidney injury): Code(s): N17.9 - Acute kidney failure, unspecified Status: Acute Assessment and Plan: Improving. continue IV fluids. Monitor BMP daily (4) HTN (hypertension): Code(s): I10 - Essential (primary) hypertension Status: Acute Assessment and Plan: Continue home meds (5) Hypercholesterolemia: Code(s): E78.00 - Pure hypercholesterolemia, unspecified Status: Acute Assessment and Plan: Continue home meds Plan full code Subjective Date/time seen: 07/03/22 12:13 Interval history: Patient reports right lower quadrant tenderness Review of Systems Review of Systems: All systems reviewed & are unremarkable except as noted in HPI and below Constitutional: Constitutional: Reports no additional constitutional complaints, Reports chills, Denies fatigue, Denies fever(s), Reports night sweats and Denies poor appetite Eyes: Eyes: Reports no additional eye complaints ENT: Reports system reviewed and no additional complaints, except as documented and Denies dizziness Cardiovascular: Cardiovascular: Reports no additional cardiovascular complaints, Denies chest pain at rest, Denies chest pain with activity, Reports leg edema (intermittent chronic foot/ankle swelling), Denies dyspnea on exertion and Denies orthopnea Respiratory: Respiratory: Reports no additional respiratory complaints, Denies cough and Denies dyspnea Gastrointestinal: Gastrointestinal: Reports as per HPI, Reports no additional gastrointestinal complaints, Reports abdominal pain, Denies bloating, Denies change in stool character, Denies coffee ground emesis, Denies constipation, Denies diarrhea, Reports nausea and Denies hematemesis Genitourinary: Genitourinary: Reports no additional male genitourinary complaints and Denies dysuria Musculoskeletal: Musculoskeletal: Reports no additional musculoskeletal complaints, Denies abnormal gait and Denies joint swelling Integumentary/Breasts: Skin/Breast: Reports system reviewed and no additional complaints, except as docu Neurologic: Reports system reviewed and no additional complaints, except as documented, Denies headache(s), Denies focal weakness, Denies numbness and Denies tingling Exam Const: General: comfortable, no acute distress and awake Nutritional Appearance: average body habitus Orientation/consciousness: patient oriented x3 HENMT: Head: normocephalic and atraumatic Ears: hearing grossly normal bilaterally Mouth: Yes moist mucous membranes Eyes: General: appearance normal, both eyes and all related structures Pupils: Equal, round and reactive pupils present EOM: EOMs intact bilaterally Neck: Neck: normal visual inspection and full ROM Resp: Effort & Inspection: no respiratory distress Auscultation: clear to auscultation bilaterally Cardio: Rate: regular rate Rhythm: regular rhythm Heart sounds: S1 normal heart sound present and S2 normal heart sound present GI: Inspection: non-distended, scar (Small periumbilical scar), no visible herniation and other (Rounded, protuberant abdomen) GI Palp: Yes Soft to palpation, Yes Tenderness to palpation present (GI) (Right-sided tenderness most focally in the RLQ), No Guarding due to palpation present (GI), Yes No hepatosplenomegaly present and No Rebound tenderness present Percussio
--- NOTE | 2022-07-03 15:27 | PM.PNGS ---
Progress Note: A&P Assessment and Plan (1) Acute perforated appendicitis: Code(s): K35.32 - Acute appendicitis with perforation, localized peritonitis, and gangrene, without abscess Status: Acute Assessment and Plan: S/p laparoscopic appendectomy for perforated appendicitis with minimal fecal contamination. Continue IV Aztreonam and Flagyl. Monitor ELSA drain output. WBC down to 13,000 today. Repeat labs again tomorrow. Advanced to full liquids. Patient is having more bloating and some generalized abdominal pain this afternoon, will continue to monitor as he could develop an ileus. Pain is well-controlled. Encouraged getting up to the chair this evening and trying to ambulate with assistance if tolerated. Nursing plans to get the patient up this afternoon. PT and OT ordered, encourage incentive spirometry. (2) Sepsis: Code(s): A41.9 - Sepsis, unspecified organism Status: Acute Assessment and Plan: Secondary to perforated appendicitis s/p laparoscopic appendectomy. Continue IV antibiotics and IV fluids. Blood cx NGTD. Repeat lactic acid down to 2.1. Hypotension improved. RIC improving. (3) RIC (acute kidney injury): Code(s): N17.9 - Acute kidney failure, unspecified Status: Acute Assessment and Plan: Improving, creatinine down to 1.8, continue IV fluids and may start decreasing once taking more oral intake. Repeat labs tomorrow. Plan I have discussed the patient's case and plan of care with Dr. Moreno. Subjective Subjective Date/Time Seen: 07/03/22 15:27 Post Op day: 1 (Laparoscopic appendectomy) Patient reports: still having pain, tolerating liquids well, no flatus, no bowel movement and fever (100.1F last night, afebrile this morning) Interval history: Patient seen in IMU. He is complaining of some abdominal pain going across his mid abdomen. He denies any nausea or vomiting, but feels very bloated. He denies flatus or BM. Has not gotten out of bed yet. He had full liquids for lunch and did well with this. Not much of an appetite. No other complaints at this time. PT/OT ordered but have not yet seen the patient. He is requesting a walker as he uses one at home. Review of Systems Review of Systems: All systems reviewed & are unremarkable except as noted in HPI and below Constitutional: Constitutional: Reports no additional constitutional complaints Cardiovascular: Cardiovascular: Reports no additional cardiovascular complaints, Denies chest pain and Denies rapid heart rate Respiratory: Respiratory: Reports no additional respiratory complaints and Denies dyspnea Gastrointestinal: Gastrointestinal: Reports as per HPI and Reports no additional gastrointestinal complaints Exam Const: General: comfortable, no acute distress and awake Orientation/consciousness: patient oriented x3 Cardio: Rate: regular rate Rhythm: regular rhythm GI: Inspection: distended, incision (incision dry and intact, with localized ecchymosis, no erythema or drainage) and other (ELSA drain with yellow/[place] cloudy output) GI Palp: Yes Soft to palpation, Yes Tenderness to palpation present (GI) (diffuse tenderness), No Guarding due to palpation present (GI), No Hernia present and No Rebound tenderness present Auscultation: Hypoactive bowel sounds present Extrem: General: no edema Psych: Insight: Good insight present (Psych) Judgement: Good judgement present (Psych) Objective Data Vital Signs Vital Signs: Vital Signs - 24 hr 07/02/22 15:30 07/02/22 15:45 07/02/22 15:47 Temperature Pulse Rate 91 88 85 Respiratory Rate 20 20 18 Blood Pressure 92/60 L 100/59 L 103/54 L Pulse Oximetry 99 100 95 Oxygen Delivery Simple Face Mask Room Air Room Air Oxygen Flow Rate 8 07/02/22 16:00 07/02/22 15:50 07/02/22 16:15 Temperature Pulse Rate 82 83 82 Respiratory Rate 17 16 16 Blood Pressure 111/58 L 109/58 L 103/57 L Pulse Oximetry 96 95 96 Oxygen Delivery Room Air Room Air Room Air Oxygen Fl
[2022-07-03] MEDS: ONDANSETRON INJ 4 MG/2 ML VIAL IV PUSH ×2 (17:56→23:14)
[2022-07-03] MEDS: ACETAMINOPHEN 325 MG TABLET 650 MG PO ×2 (17:57→23:25)
[2022-07-03] MEDS: MORPHINE SULFATE (*CRX) 4 MG/ML INJ IV PUSH (23:14)
[2022-07-04] VITALS (15 sets, daily range): BP systolic 113–178; BP diastolic 58–88; PULSE 78–89; RESP 20–22; TEMP 36.2–37.1; O2SAT 93–99
[2022-07-04] MEDS: MORPHINE SULFATE (*CRX) 4 MG/ML INJ IV PUSH ×3 (03:24→13:30)
[2022-07-04] MEDS: ONDANSETRON INJ 4 MG/2 ML VIAL IV PUSH ×2 (03:24→06:54)
[2022-07-04] MEDS: oxyCODONE HCL (*CRX) 5 MG TAB IR PO (04:15)
[2022-07-04] MEDS: metroNIDAZOLE 500 MG/ISO 100ML 500 MG/100 ML BAG 100 MG IVPB ×5 (05:26→23:30)
[2022-07-04] MEDS: BENZONATATE 100 MG CAPSULE 200 MG PO (06:54)
[2022-07-04 09:13] LABS: Hemoglobin 13.9 g/dL (14.0-18.0); Mean Corpuscular HGB Conc 31.6 g/dl (32-36); Mean Corpuscular Hemoglobin 29.1 pg (26-34); Mean Corpuscular Volume 92.2 fl (80-100); Mean Platelet Volume 12.5 fl (7.4-10.4); Platelet Count Result 248 k/mm3 (150-375); Red Blood Count 4.77 M/mm3 (4.6-6.20); Red Cell Distribution Width 14.7 % (11.5-14.5); White Blood Count 16.7 K/mm3 (4.5-10.0)
[2022-07-04 09:24] LABS: Anion Gap 5 mmol/L (8-16); Blood Urea Nitrogen 31 mg/dL (9-20); Carbon Dioxide 25 mmol/L (22-30); Chloride 105 mmol/L (98-107); Estimated CRCL calculation 72 ml/min; Estimated Glomerular Filt Rate > 60; Glucose 130 mg/dL (65-110); Potassium 4.8 mmol/L (3.4-5.0); Sodium 135 mmol/L (137-145)
[2022-07-04] MEDS: AZTREONAM 1 GM in SODIUM CHLORIDE 0.9% IV 50 ML 100 ML IVPB ×3 (09:32→23:31)
[2022-07-04] MEDS: SODIUM CHLORIDE 0.9% IV 1,000 ML 100 ML IV CONT (09:33)
[2022-07-04] MEDS: ENOXAPARIN 40 MG/0.4 ML SYRINGE SUB-Q (09:34)
--- NOTE | 2022-07-04 09:56 | PM.PNGS ---
Progress Note: A&P Assessment and Plan (1) Acute perforated appendicitis: Code(s): K35.32 - Acute appendicitis with perforation, localized peritonitis, and gangrene, without abscess Status: Acute Assessment and Plan: Postop day 2. After laparoscopic appendectomy for perforated appendicitis. He continues to have a postoperative ileus. Will need to make him NPO again and placed an NG tube to decompress his stomach. We need to start him back on IV fluids since he has been throwing up overnight. Continue on IV antibiotics for now. If he spikes a fever then will have to do a CT scan looking for retained abdominal pelvic abscess after perforated appendicitis. Continue supportive management. Subjective Subjective Date/Time Seen: 07/04/22 09:56 Interval history: Patient is worse this morning with abdominal distension and episodes of emesis. He is not passing any flatus. No fever [place] [id number] today. Renal function has improved with a decrease of his creatinine down to 1.1. Exam GI: Other: The abdomen is distended but soft. Minimal bowel sounds. Incisions are healing well. ELSA drain is cloudy with output about 160 cc last 24hours. No feculent material was noted in the drain. Objective Data Vital Signs Vital Signs: Vital Signs - 24 hr 07/03/22 10:00 07/03/22 12:00 07/03/22 12:00 Temperature 36.9 C Pulse Rate 78 83 85 Respiratory Rate 94 H Blood Pressure 122/53 L Pulse Oximetry 94 Oxygen Delivery 07/03/22 14:00 07/03/22 17:19 07/03/22 16:00 Temperature 36.5 C Pulse Rate 75 83 Respiratory Rate 24 H Blood Pressure 142/73 H Pulse Oximetry 95 96 Oxygen Delivery Room Air 07/03/22 16:00 07/03/22 18:00 07/03/22 20:00 Temperature 36.6 C Pulse Rate 84 87 92 Respiratory Rate 20 Blood Pressure 160/78 H Pulse Oximetry 95 Oxygen Delivery 07/03/22 20:00 07/03/22 23:31 07/03/22 20:00 Temperature 36.6 C Pulse Rate 90 81 90 Respiratory Rate 22 H Blood Pressure 146/63 H Pulse Oximetry 94 Oxygen Delivery Room Air 07/03/22 22:00 07/04/22 00:00 07/04/22 00:00 Temperature Pulse Rate 82 81 81 Respiratory Rate Blood Pressure Pulse Oximetry Oxygen Delivery Room Air 07/04/22 02:00 07/04/22 04:00 07/04/22 04:00 Temperature Pulse Rate 81 78 78 Respiratory Rate Blood Pressure Pulse Oximetry Oxygen Delivery Room Air 07/04/22 04:00 07/04/22 06:00 07/04/22 08:00 Temperature 36.2 C L 37.1 C Pulse Rate 81 80 82 Respiratory Rate 22 H 22 H Blood Pressure 178/72 H 166/81 H Pulse Oximetry 94 95 Oxygen Delivery Intake/Output Intake/Output: Intake & Output 07/01/22 07/02/22 07/03/22 07/04/22 23:59 23:59 23:59 23:59 Intake Total 4050 3980 200 Output Total 315 2660 2160 Balance 3736 1320 -0500 Meds/Results Medications: Active Medications Generic Name Dose Route Start Last Admin Trade Name Freq PRN Reason Stop Dose Admin Acetaminophen 650 mg 07/03/22 09:38 07/03/22 23:25 Acetaminophen 325 Mg Tablet PO 650 mg Q6H PRN Administration Mild Pain (1-3) or Fever Benzonatate 200 mg 07/02/22 16:57 07/04/22 06:54 Benzonatate 100 Mg Capsule PO 200 mg TID PRN Administration cough Docusate Sodium 100 mg 07/03/22 15:25 Docusate Sodium 100 Mg Capsule PO Q12H PRN Constipation Ezetimibe 10 mg 07/03/22 09:00 07/03/22 08:04 Ezetimibe 10 Mg Tablet PO 10 mg DAILY ROSY Administration Enoxaparin Sodium 40 mg 07/03/22 09:00 07/04/22 09:34 Enoxaparin 40 Mg/0.4 Ml Syringe SUB-Q 40 mg DAILY ROSY Administration Gabapentin 600 mg 07/02/22 17:00 07/03/22 17:17 Gabapentin 300 Mg Capsule PO 600 mg BID ROSY Administration Hydrochlorothiazide 25 mg 07/03/22 09:00 07/03/22 08:04 Hydrochlorothiazide 25 Mg Tablet PO 25 mg DAILY ROSY Administration Aztreonam 1 gm/ Sodium 50 mls @ 100 mls/hr
--- NOTE | 2022-07-04 10:59 | PM.IMPN ---
Progress Note: A&P Assessment and Plan (1) Acute perforated appendicitis: Code(s): K35.32 - Acute appendicitis with perforation, localized peritonitis, and gangrene, without abscess Status: Acute Assessment and Plan: Status post laparoscopic appendectomy. Patient reported nausea and abdominal fullness. He was made NPO again this morning and NGT was placed and about 600 mL greenish fluid was obtained. Blood cultures growing Gram-negative bacilli. continue IV aztreonam per surgery recommendations. continue maintenance IV fluids. Advance diet as tolerated (2) Sepsis: Code(s): A41.9 - Sepsis, unspecified organism Status: Acute Assessment and Plan: Blood cultures growing Gram-negative bacilli. Likely secondary to acute perforated appendicitis. Continue IV antibiotics. continue maintenance IV fluids. (3) RIC (acute kidney injury): Code(s): N17.9 - Acute kidney failure, unspecified Status: Acute Assessment and Plan: Improving. continue IV fluids. Monitor BMP daily (4) HTN (hypertension): Code(s): I10 - Essential (primary) hypertension Status: Acute Assessment and Plan: Continue home meds (5) Hypercholesterolemia: Code(s): E78.00 - Pure hypercholesterolemia, unspecified Status: Acute Assessment and Plan: Continue home meds Subjective Date/time seen: 07/04/22 10:59 Interval history: Patient was nauseated this morning and complaining of abdominal fullness Review of Systems Review of Systems: All systems reviewed & are unremarkable except as noted in HPI and below Constitutional: Constitutional: Reports no additional constitutional complaints Cardiovascular: Cardiovascular: Reports no additional cardiovascular complaints, Denies chest pain and Denies rapid heart rate Respiratory: Respiratory: Reports no additional respiratory complaints and Denies dyspnea Gastrointestinal: Gastrointestinal: Reports as per HPI and Reports no additional gastrointestinal complaints Exam Const: General: awake and in distress Nutritional Appearance: average body habitus Orientation/consciousness: patient oriented x3 HENMT: Head: normocephalic and atraumatic Ears: hearing grossly normal bilaterally Mouth: Yes moist mucous membranes Eyes: General: appearance normal, both eyes and all related structures Pupils: Equal, round and reactive pupils present EOM: EOMs intact bilaterally Neck: Neck: normal visual inspection and full ROM Resp: Effort & Inspection: no respiratory distress Auscultation: clear to auscultation bilaterally Cardio: Rate: regular rate Rhythm: regular rhythm Heart sounds: S1 normal heart sound present and S2 normal heart sound present GI: Inspection: distended, scar (Small periumbilical scar), no visible herniation and other (Rounded, protuberant abdomen) GI Palp: Yes Tenderness to palpation present (GI) (Right-sided tenderness most focally in the RLQ) and Yes No hepatosplenomegaly present Percussion: Yes normal to percussion Auscultation: abnormal bowel sounds Rectal Exam: deferred Skin: General skin exam: normal color Rashes: no rashes Neuro: General: moves all extremities and no focal motor deficits Speech: normal speech Motor exam (neuro): 5/5 motor strength present throughout Extrem: General: normal to inspection and no edema Psych: Mental Status: mental status grossly normal Affect: normal affect Attitude: cooperative Insight: Good insight present (Psych) Judgement: Good judgement present (Psych) Objective Data Vital Signs Vital Signs: Vital Signs - 24 hr 07/03/22 12:00 07/03/22 12:00 07/03/22 14:00 Temperature 98.5 F Pulse Rate 83 85 75 Respiratory Rate 94 H Blood Pressure 122/53 L Pulse Oximetry 94 Oxygen Delivery 07/03/22 17:19 07/03/22 16:00 07/03/22 16:00 Temperature 97.7 F Pulse Rate 83 84 Respiratory Rate 24 H Blood Pressure 142/73 H Pulse Oximetry
--- NOTE | 2022-07-04 11:06 | PCOTNOTE ---
Attempted OT evaluation, patient refused therapy today. Will follow.
--- NOTE | 2022-07-04 11:06 | PCPTNOTE ---
Patient refusing PT evaluation at this time stating he would like to rest. Will attempt PT eval at later time/date.
[2022-07-04] MEDS: SODIUM CHLORIDE 0.9% IV 1,000 ML 130 ML IV CONT ×2 (14:37→23:30)
[2022-07-04] MEDS: HYDROmorphone HCL INJ (*CRX) 1 MG/ML SYR IV PUSH ×3 (16:13→22:27)
[2022-07-05] VITALS (13 sets, daily range): BP systolic 139–159; BP diastolic 63–81; PULSE 74–90; RESP 16–20; TEMP 36.2–36.8; O2SAT 93–100
[2022-07-05] MEDS: HYDROmorphone HCL INJ (*CRX) 1 MG/ML SYR IV PUSH ×3 (01:48→10:11)
[2022-07-05 05:10] LABS: Basophils Absolute Auto 0.1 K/mm3 (0.0-0.1); Basophils Percent Auto 0.4 % (0.2-1.2); Eosinophils Absolute Auto 0.1 K/mm3 (0-0.3); Eosinophils Percent Auto 0.4 % (0-4.4); Hematocrit 42.7 % (42.0-52.0); Hemoglobin 13.4 g/dL (14.0-18.0); Immature Granulocyte Absolute 0.15 K/mm3 (0.00-0.031); Immature Granulocyte Percent A 0.9 % (0-0.5); Lymphocytes Absolute Auto 0.79 K/mm3 (0.9-3.2); Lymphocytes Percent Auto 4.7 % (18.3-44.2); Mean Corpuscular HGB Conc 31.4 g/dl (32-36); Mean Corpuscular Hemoglobin 28.8 pg (26-34); Mean Corpuscular Volume 91.8 fl (80-100); Mean Platelet Volume 12.1 fl (7.4-10.4); Monocytes Absolute Auto 1.1 K/mm3 (0.1-0.6); Monocytes Percent Auto 6.4 % (2.6-8.5); Neutrophils Absolute Auto 14.7 K/mm3 (1.3-6.7); Neutrophils Percent Auto 87.2 % (45.5-73.1); Platelet Count Result 265 k/mm3 (150-375); Red Blood Count 4.65 M/mm3 (4.6-6.20); Red Cell Distribution Width 14.8 % (11.5-14.5); White Blood Count 16.9 K/mm3 (4.5-10.0)
[2022-07-05 05:21] LABS: Anion Gap 2 mmol/L (8-16); Blood Urea Nitrogen 43 mg/dL (9-20); Calcium 7.7 mg/dL (8.4-10.2); Carbon Dioxide 30 mmol/L (22-30); Chloride 106 mmol/L (98-107); Estimated CRCL calculation 50 ml/min; Estimated Glomerular Filt Rate 42; Glucose 106 mg/dL (65-110); Sodium 138 mmol/L (137-145)
[2022-07-05] MEDS: metroNIDAZOLE 500 MG/ISO 100ML 500 MG/100 ML BAG 100 MG IVPB ×4 (05:30→23:22)
--- NOTE | 2022-07-05 08:28 | PCOTNOTE ---
Patient refused to participate in OT evaluation. Will follow.
--- NOTE | 2022-07-05 09:22 | PM.IMPN ---
Progress Note: A&P Assessment and Plan (1) Acute perforated appendicitis: Code(s): K35.32 - Acute appendicitis with perforation, localized peritonitis, and gangrene, without abscess Status: Acute Assessment and Plan: 07/05 postop day 2 Continue aztreonam and metronidazole (2) RIC (acute kidney injury): Code(s): N17.9 - Acute kidney failure, unspecified Status: Acute Assessment and Plan: Creatinine 1.9 admission had normalized yesterday 1.6 07/05, continue to follow trend (3) Sepsis: Code(s): A41.9 - Sepsis, unspecified organism Status: Acute Assessment and Plan: Clinically improving (4) HTN (hypertension): Code(s): I10 - Essential (primary) hypertension Status: Acute Assessment and Plan: P.o. medications on will (5) Left foot drop: Code(s): M21.372 - Foot drop, left foot Status: Acute Assessment and Plan: Chronic and stable Subjective Date/time seen: 07/05/22 09:22 Interval history: Some abdominal discomfort. Has not passed gas. Still has nasogastric tube in. No nausea or vomiting. Denied chest pain or shortness of breath. No blood in urine. Has Bowman catheter. No weakness or numbness. Denied other pain. Review of Systems Review of Systems: All systems reviewed & are unremarkable except as noted in HPI and below Exam Narrative: HEENT: PERRL, sclerae nonicteric, pharyngeal mucosa pink and intact NECK: No JVD CHEST: Clear to auscultation. Normal effort. HEART: NL S1/S2, regular, no murmur ABDOMEN: BS present, protuberant but soft, mild incisional tenderness, no mass, no bruits EXTREMITIES: No cyanosis, edema, or clubbing NEUROLOGIC: CN intact and symmetric to inspection. MUSCULOSKELETAL: Left foot with weakness on dorsal and plantar flexion PSYCH: Alert. Oriented to person, place, and time. Objective Data Vital Signs Vital Signs: Vital Signs - 24 hr 07/04/22 12:00 07/04/22 10:00 07/04/22 12:00 Temperature 98.7 F Pulse Rate 82 81 83 Respiratory Rate 22 H Blood Pressure 166/81 H Pulse Oximetry 95 Oxygen Delivery 07/04/22 14:00 07/04/22 16:47 07/04/22 12:00 Temperature 98.2 F 98.6 F Pulse Rate 84 Respiratory Rate 20 Blood Pressure 153/72 H Pulse Oximetry 95 Oxygen Delivery Room Air 07/04/22 14:00 07/04/22 16:00 07/04/22 16:00 Temperature Pulse Rate 81 83 Respiratory Rate Blood Pressure Pulse Oximetry Oxygen Delivery Room Air 07/04/22 18:00 07/04/22 19:53 07/04/22 20:00 Temperature 98.3 F Pulse Rate 83 89 86 Respiratory Rate 20 Blood Pressure 152/88 H Pulse Oximetry 99 Oxygen Delivery 07/04/22 20:00 07/04/22 21:40 07/04/22 23:52 Temperature 97.2 F L Pulse Rate 86 84 82 Respiratory Rate 20 20 Blood Pressure 113/58 L Pulse Oximetry 99 93 Oxygen Delivery Room Air 07/05/22 00:00 07/05/22 00:00 07/05/22 02:00 Temperature Pulse Rate 82 82 80 Respiratory Rate 20 Blood Pressure Pulse Oximetry 93 Oxygen Delivery Room Air 07/05/22 04:00 07/05/22 04:00 07/05/22 04:00 Temperature 97.3 F L Pulse Rate 79 77 77 Respiratory Rate 20 20 Blood Pressure 139/81 Pulse Oximetry 95 95 Oxygen Delivery Room Air 07/05/22 06:00 07/05/22 08:00 Temperature 98.3 F Pulse Rate 74 79 Respiratory Rate 18 Blood Pressure 154/74 H Pulse Oximetry 96 Oxygen Delivery Intake/Output Intake/Output: Intake & Output 07/02/22 07/03/22 07/04/22 07/05/22 23:59 23:59 23:59 23:59 Intake Total 4050 3980 1780 150 Output Total 315 2660 7755 1590 Balance 3732 1320 -5975 -1440 Meds/Results Medications: Active Medications Generic Name Dose Route Start Last Admin Trade Name Freq PRN Reason Stop Dose Admin Acetaminophen 650 mg 07/03/22 09:38 07/03/22 23:25 Acetaminophen 325 Mg Tablet PO 650 mg Q6H PRN Administration Mild Pain (1-3) or Fever Benzonatate 200 mg 07/02
[2022-07-05] MEDS: SODIUM CHLORIDE 0.9% IV 1,000 ML 130 ML IV CONT ×2 (10:01→21:55)
[2022-07-05] MEDS: AZTREONAM 1 GM in SODIUM CHLORIDE 0.9% IV 50 ML 100 ML IVPB (10:01)
[2022-07-05] MEDS: PANTOPRAZOLE SODIUM IV 40 MG VIAL IV PUSH (10:02)
[2022-07-05] MEDS: ENOXAPARIN 40 MG/0.4 ML SYRINGE SUB-Q (10:02)
--- NOTE | 2022-07-05 10:20 | PM.PNGS ---
Progress Note: A&P Assessment and Plan (1) Acute perforated appendicitis: Code(s): K35.32 - Acute appendicitis with perforation, localized peritonitis, and gangrene, without abscess Status: Acute Assessment and Plan: Patient is improved today over yesterday. However he still has a ileus which could be due to abdominal pelvic abscess versus inflammation from his perforated appendicitis. For now will continue IV antibiotics. Acute from NPO and decompresses GI tract with an NG tube. We will go ahead and order a CT scan abdomen pelvis today with IV contrast to evaluate for retained abscess. He needs to get up out of bed and sit up in a chair. We will go ahead and switch to IV antibiotics to Zosyn from aztreonam. He has a allergy to cephalosporins which only causes a rash. I confirmed with him the and problems breathing with taking a cephalosporin. Order CT scan the abdomen pelvis today cannot give IV contrast due to his creatinine being 1.6. Subjective Subjective Date/Time Seen: 07/05/22 10:20 Post Op day: 3 Interval history: Patient is now postop day 3. After laparoscopic appendectomy for perforated appendicitis. Yesterday he had a rough day with nausea vomiting and abdominal distension. Nasogastric tube had to be replaced and he had [id number] of nasogastric tube output. The sclerae had a postoperative ileus due to the perforated appendicitis but I cannot rule out retained abscess. A pelvic which shows no purulence. White blood cell count was 13478 yesterday and is stable today at 16,000. He has had no fever. NG output is still bilious and is not passing any flatus. Exam GI: Other: Abdomen is soft and mildly distended. Distention is much better than yesterday. Decreased bowel sounds. Incisions are healing well. ELSA drain output is still light yellow serous without purulence or feculence. Urinary Catheter: Urinary Catheter: patent and draining and urine clear Objective Data Vital Signs Vital Signs: Vital Signs - 24 hr 07/04/22 12:00 07/04/22 12:00 07/04/22 14:00 Temperature 37.1 C 36.8 C Pulse Rate 82 83 Respiratory Rate 22 H Blood Pressure 166/81 H Pulse Oximetry 95 Oxygen Delivery 07/04/22 16:47 07/04/22 12:00 07/04/22 14:00 Temperature 37.0 C Pulse Rate 84 81 Respiratory Rate 20 Blood Pressure 153/72 H Pulse Oximetry 95 Oxygen Delivery Room Air 07/04/22 16:00 07/04/22 16:00 07/04/22 18:00 Temperature Pulse Rate 83 83 Respiratory Rate Blood Pressure Pulse Oximetry Oxygen Delivery Room Air 07/04/22 19:53 07/04/22 20:00 07/04/22 20:00 Temperature 36.8 C Pulse Rate 89 86 86 Respiratory Rate 20 20 Blood Pressure 152/88 H Pulse Oximetry 99 99 Oxygen Delivery Room Air 07/04/22 21:40 07/04/22 23:52 07/05/22 00:00 Temperature 36.2 C L Pulse Rate 84 82 82 Respiratory Rate 20 Blood Pressure 113/58 L Pulse Oximetry 93 Oxygen Delivery 07/05/22 00:00 07/05/22 02:00 07/05/22 04:00 Temperature 36.3 C L Pulse Rate 82 80 79 Respiratory Rate 20 20 Blood Pressure 139/81 Pulse Oximetry 93 95 Oxygen Delivery Room Air 07/05/22 04:00 07/05/22 04:00 07/05/22 06:00 Temperature Pulse Rate 77 77 74 Respiratory Rate 20 Blood Pressure Pulse Oximetry 95 Oxygen Delivery Room Air 07/05/22 08:00 Temperature 36.8 C Pulse Rate 79 Respiratory Rate 18 Blood Pressure 154/74 H Pulse Oximetry 96 Oxygen Delivery Intake/Output Intake/Output: Intake & Output 07/02/22 07/03/22 07/04/22 07/05/22 23:59 23:59 23:59 23:59 Intake Total 4050 3980 1780 1150 Output Total 315 9140 0760 2814 Balance 3733 5875 -3676 -0885 Meds/Results Medications: Active Medications Generic Name Dose Route Start Last Admin Trade Name Freq PRN Reason Stop Dose Admin Acetaminophen 650 mg 07/03/22 09:38 07/03/22 23:25 Acetaminophen 325 Mg Tablet PO 650 mg Q6H PRN Administration Mild Pain (
[2022-07-05] MEDS: LACTATED RINGERS 1,000 ML 999 ML IV CONT (11:20)
[2022-07-05] MEDS: PIPERACILLN/TAZ 3.375GM/NS50ML 3.375 GM/50 ML BAG IVPB ×3 (11:29→23:22)
[2022-07-05] MEDS: HYDROmorphone HCL INJ (*CRX) 1 MG/ML SYR 0.5 MG IV PUSH ×5 (13:30→23:16)
[2022-07-06] VITALS (11 sets, daily range): BP systolic 149–188; BP diastolic 57–71; PULSE 75–85; RESP 12–20; TEMP 36.1–37.1; O2SAT 95–99
[2022-07-06] MEDS: oxyCODONE HCL (*CRX) 5 MG TAB IR PO (01:42)
[2022-07-06] MEDS: ONDANSETRON INJ 4 MG/2 ML VIAL IV PUSH ×2 (01:46→06:53)
[2022-07-06] MEDS: HYDROmorphone HCL INJ (*CRX) 1 MG/ML SYR 0.5 MG IV PUSH ×7 (02:48→22:05)
[2022-07-06] MEDS: metroNIDAZOLE 500 MG/ISO 100ML 500 MG/100 ML BAG 100 MG IVPB (05:02)
[2022-07-06 05:07] LABS: Hematocrit 38.9 % (42.0-52.0); Hemoglobin 12.4 g/dL (14.0-18.0); Mean Corpuscular HGB Conc 31.9 g/dl (32-36); Mean Corpuscular Hemoglobin 29.2 pg (26-34); Mean Corpuscular Volume 91.5 fl (80-100); Mean Platelet Volume 11.8 fl (7.4-10.4); Platelet Count Result 227 k/mm3 (150-375); Red Blood Count 4.25 M/mm3 (4.6-6.20); Red Cell Distribution Width 14.6 % (11.5-14.5); White Blood Count 13.3 K/mm3 (4.5-10.0)
[2022-07-06] MEDS: PIPERACILLN/TAZ 3.375GM/NS50ML 3.375 GM/50 ML BAG IVPB ×4 (05:08→23:34)
[2022-07-06] MEDS: SODIUM CHLORIDE 0.9% IV 1,000 ML 130 ML IV CONT ×3 (05:12→22:01)
[2022-07-06 05:22] LABS: Albumin Level 2.7 g/dL (3.5-5.1); Anion Gap 3 mmol/L (8-16); Blood Urea Nitrogen 39 mg/dL (9-20); Calcium 7.7 mg/dL (8.4-10.2); Carbon Dioxide 29 mmol/L (22-30); Chloride 107 mmol/L (98-107); Estimated CRCL calculation 60 ml/min; Estimated Glomerular Filt Rate 54; Glucose 96 mg/dL (65-110); Phosphorus 3.5 mg/dL (2.5-4.5); Potassium 4.2 mmol/L (3.4-5.0); Sodium 139 mmol/L (137-145)
[2022-07-06] MEDS: PANTOPRAZOLE SODIUM IV 40 MG VIAL IV PUSH (09:17)
[2022-07-06] MEDS: ENOXAPARIN 40 MG/0.4 ML SYRINGE SUB-Q (09:17)
--- NOTE | 2022-07-06 10:43 | PM.IMPN ---
Progress Note: A&P Assessment and Plan (1) Acute perforated appendicitis: Code(s): K35.32 - Acute appendicitis with perforation, localized peritonitis, and gangrene, without abscess Status: Acute Assessment and Plan: 07/06 postop day 3, transferred from IMu to med/surgery floor Continue Lisset (WBC down to 13.3 07/06) (2) RIC (acute kidney injury): Code(s): N17.9 - Acute kidney failure, unspecified Status: Acute Assessment and Plan: Creatinine 1.9 admission had normalized yesterday 1.6 07/05, 1.3 07/06 Resolved (3) Sepsis: Code(s): A41.9 - Sepsis, unspecified organism Status: Acute Assessment and Plan: Clinically improving (4) HTN (hypertension): Code(s): I10 - Essential (primary) hypertension Status: Acute Assessment and Plan: P.o. medications on hold 07/06 Furosemide 20mg IV x 1 due to systolic hypternsion and edema (5) Left foot drop: Code(s): M21.372 - Foot drop, left foot Status: Acute Assessment and Plan: Chronic and stable Subjective Date/time seen: 07/06/22 10:43 Interval history: Incisional pain a little less. No stool or flatus yet. Denied cp or sob. No hematuria. No focal weakness or numbness. Exam Narrative: HEENT: PERRL, sclerae nonicteric, pharyngeal mucosa pink and intact NECK: No JVD CHEST: Clear to auscultation. Normal effort. HEART: NL S1/S2, regular, no murmur ABDOMEN: BS present, protuberant but soft, mild incisional tenderness, no mass, no bruits EXTREMITIES: Trace pitting edema of ankles NEUROLOGIC: CN intact and symmetric to inspection. MUSCULOSKELETAL: Left foot with weakness on dorsal and plantar flexion PSYCH: Alert. Oriented to person, place, and time. Objective Data Vital Signs Vital Signs: Vital Signs - 24 hr 07/05/22 12:00 07/05/22 12:00 07/05/22 14:00 Temperature 97.6 F Pulse Rate 85 90 81 Respiratory Rate 16 Blood Pressure 159/71 H Pulse Oximetry 100 Oxygen Delivery 07/05/22 12:00 07/05/22 16:00 07/05/22 16:00 Temperature Pulse Rate 81 Respiratory Rate Blood Pressure Pulse Oximetry Oxygen Delivery Room Air Room Air 07/05/22 16:00 07/05/22 18:00 07/05/22 20:00 Temperature 98.1 F 97.1 F L Pulse Rate 83 84 85 Respiratory Rate 16 20 Blood Pressure 159/63 H 157/69 H Pulse Oximetry 98 99 Oxygen Delivery 07/05/22 20:00 07/05/22 20:00 07/05/22 22:00 Temperature Pulse Rate 89 83 Respiratory Rate Blood Pressure Pulse Oximetry Oxygen Delivery Room Air 07/05/22 23:44 07/05/22 23:56 07/06/22 00:00 Temperature 97.8 F Pulse Rate 80 84 Respiratory Rate 20 Blood Pressure 158/64 H Pulse Oximetry 99 Oxygen Delivery Room Air 07/06/22 02:00 07/06/22 03:30 07/06/22 04:00 Temperature Pulse Rate 82 75 Respiratory Rate Blood Pressure Pulse Oximetry Oxygen Delivery Room Air 07/06/22 04:00 07/06/22 06:00 07/06/22 08:00 Temperature 97.3 F L 97.5 F L Pulse Rate 81 81 79 Respiratory Rate 20 20 Blood Pressure 153/71 H 174/66 H Pulse Oximetry 97 99 Oxygen Delivery Intake/Output Intake/Output: Intake & Output 07/03/22 07/04/22 07/05/22 07/06/22 23:59 23:59 23:59 23:59 Intake Total 3980 1780 3650 1460 Output Total 2660 5089 1535 1825 Balance 1320 -5975 -705 -365 Meds/Results Medications: Active Medications Generic Name Dose Route Start Last Admin Trade Name Fre PRN Reason Stop Dose Admin Acetaminophen 650 mg 07/03/22 09:38 07/03/22 23:25 Acetaminophen 325 Mg Tablet PO 650 mg Q6H PRN Administration Mild Pain (1-3) or Fever Benzonatate 200 mg 07/02/22 16:57 07/04/22 06:54 Benzonatate 100 Mg Capsule PO 200 mg TID PRN Administration cough Docusate Sodium 100 mg 07/03/22 15:25 Docusate Sodium 100 Mg Capsule PO Q12H PRN Constipation Ezetimibe 10 mg 07/03/22 09:00 07/04/22 10:41 Ezetimibe 10
--- NOTE | 2022-07-06 10:53 | PM.PNGS ---
Progress Note: A&P Assessment and Plan (1) Acute perforated appendicitis: Code(s): K35.32 - Acute appendicitis with perforation, localized peritonitis, and gangrene, without abscess Status: Acute Assessment and Plan: Continue IV antibiotics. Continue nasogastric tube decompression for now until he has bowel function. Ambulate with therapy. (2) Postoperative paralytic ileus: Code(s): T81.89XA - Other complications of procedures, not elsewhere classified, initial encounter; K56.0 - Paralytic ileus Status: Acute Assessment and Plan: Continue supportive management. Will give him some Reglan to help with bowel motility. Might consider giving him a suppository tomorrow. White blood cell count is decreasing and CT shows no retained abscess. Slow improvement. Subjective Subjective Date/Time Seen: 07/06/22 10:53 Post Op day: 3 Interval history: Patient is now postop day 3 after perforated appendicitis and laparoscopic appendectomy. Postoperative ileus requiring placement of NG tube and decompression GI tract. White blood cell count decreased to 13,000 today. He was switched to Zosyn yesterday for better IV antibiotic coverage. CT scan abdomen pelvis yesterday showed no evidence of retained pelvic abscess and likely a postoperative ileus. Today the nasogastric tube output is less bilious. He is having some stomach rumbling but no flatus or bowel movement yet. He has been able to get up out of bed sit up in a chair. He remains afebrile. Bowman catheter still in place with good urine output. Review of Systems Review of Systems: The remainder of the review of systems to include constitutional, HEENT, cardiovascular, respiratory, GI, , integumentary, musculoskeletal, endocrine, immunologic, hematologic, psychiatric, and neurologic are all negative except for which is mentioned above in the HPI. Exam Const: General: comfortable and no acute distress Resp: Effort & Inspection: normal respiratory effort Auscultation: clear to auscultation bilaterally Cardio: Rate: regular rate Rhythm: regular rhythm GI: Other: Abdomen is soft and mildly distended. Bowel sounds are noted. Incisions are healing without redness or drainage. Urinary Catheter: Urinary Catheter: patent and draining and urine clear Psych: Mental Status: mental status grossly normal Affect: normal affect Objective Data Vital Signs Vital Signs: Vital Signs - 24 hr 07/05/22 12:00 07/05/22 12:00 07/05/22 14:00 Temperature 36.4 C Pulse Rate 85 90 81 Respiratory Rate 16 Blood Pressure 159/71 H Pulse Oximetry 100 Oxygen Delivery 07/05/22 12:00 07/05/22 16:00 07/05/22 16:00 Temperature Pulse Rate 81 Respiratory Rate Blood Pressure Pulse Oximetry Oxygen Delivery Room Air Room Air 07/05/22 16:00 07/05/22 18:00 07/05/22 20:00 Temperature 36.7 C 36.2 C L Pulse Rate 83 84 85 Respiratory Rate 16 20 Blood Pressure 159/63 H 157/69 H Pulse Oximetry 98 99 Oxygen Delivery 07/05/22 20:00 07/05/22 20:00 07/05/22 22:00 Temperature Pulse Rate 89 83 Respiratory Rate Blood Pressure Pulse Oximetry Oxygen Delivery Room Air 07/05/22 23:44 07/05/22 23:56 07/06/22 00:00 Temperature 36.6 C Pulse Rate 80 84 Respiratory Rate 20 Blood Pressure 158/64 H Pulse Oximetry 99 Oxygen Delivery Room Air 07/06/22 02:00 07/06/22 03:30 07/06/22 04:00 Temperature Pulse Rate 82 75 Respiratory Rate Blood Pressure Pulse Oximetry Oxygen Delivery Room Air 07/06/22 04:00 07/06/22 06:00 07/06/22 08:00 Temperature 36.3 C L 36.4 C L Pulse Rate 81 81 79 Respiratory Rate 20 20 Blood Pressure 153/71 H 174/66 H Pulse Oximetry 97 99 Oxygen Delivery Intake/Output Intake/Output: Intake & Output 07/03/22 07/04/22 07/05/22 07/06/22 23:59 23:59 23:59 23:59 Intake Total 3980 1780 3650 1460 Output Total 5268 0836 7223 2878
[2022-07-06] MEDS: METOCLOPRAMIDE HCL INJ 10 MG/2 ML VIAL IV PUSH ×3 (12:19→23:34)
[2022-07-06] MEDS: FUROSEMIDE INJ 40 MG/4 ML VIAL 20 MG IV PUSH (12:19)
--- NOTE | 2022-07-06 12:50 | PC.NURSE ---
Received from [facility] / via bed.
--- NOTE | 2022-07-06 13:28 | PC.NURSE ---
This patient, Ludin Menon, was transferred to [facility] on 07/06/22 at 1243. Personal belongings sent with patient. Report given to Rosa LAMA. Appropriate documentation sent with patient.
[2022-07-07 03:31] VITALS: BP 163/62; PULSE 82; RESP 16; TEMP 36.9
[2022-07-07 04:47] LABS: Hematocrit 37.8 % (42.0-52.0); Hemoglobin 12.1 g/dL (14.0-18.0); Mean Corpuscular Hemoglobin 29.2 pg (26-34); Mean Corpuscular Volume 91.1 fl (80-100); Mean Platelet Volume 11.5 fl (7.4-10.4); Platelet Count Result 242 k/mm3 (150-375); Red Blood Count 4.15 M/mm3 (4.6-6.20); Red Cell Distribution Width 14.6 % (11.5-14.5); White Blood Count 12.1 K/mm3 (4.5-10.0)
[2022-07-07 05:03] LABS: Albumin Level 2.8 g/dL (3.5-5.1); Anion Gap 5 mmol/L (8-16); Blood Urea Nitrogen 36 mg/dL (9-20); Calcium 7.8 mg/dL (8.4-10.2); Carbon Dioxide 25 mmol/L (22-30); Chloride 110 mmol/L (98-107); Estimated CRCL calculation 71 ml/min; Estimated Glomerular Filt Rate > 60; Glucose 92 mg/dL (65-110); Phosphorus 4.1 mg/dL (2.5-4.5); Sodium 140 mmol/L (137-145)
[2022-07-07] MEDS: METOCLOPRAMIDE HCL INJ 10 MG/2 ML VIAL IV PUSH ×4 (05:22→23:29)
[2022-07-07] MEDS: PIPERACILLN/TAZ 3.375GM/NS50ML 3.375 GM/50 ML BAG IVPB ×4 (05:23→23:29)
[2022-07-07] MEDS: HYDROmorphone HCL INJ (*CRX) 1 MG/ML SYR 0.5 MG IV PUSH ×5 (06:08→17:51)
[2022-07-07] MEDS: SODIUM CHLORIDE 0.9% IV 1,000 ML 130 ML IV CONT (06:08)
[2022-07-07] MEDS: ENOXAPARIN 40 MG/0.4 ML SYRINGE SUB-Q (08:42)
[2022-07-07] MEDS: PANTOPRAZOLE SODIUM IV 40 MG VIAL IV PUSH (08:42)
[2022-07-07 09:49] VITALS: BP 177/60; PULSE 81; RESP 16; TEMP 36.2; O2SAT 98
[2022-07-07] MEDS: hydrALAZINE HCL 20 MG/ML VIAL 10 MG IV PUSH ×2 (10:14→17:51)
--- NOTE | 2022-07-07 11:01 | PM.PNGS ---
Progress Note: A&P Assessment and Plan (1) Acute perforated appendicitis: Code(s): K35.32 - Acute appendicitis with perforation, localized peritonitis, and gangrene, without abscess Status: Acute Assessment and Plan: Patient continues to have a postoperative ileus. Potassium level is 4. Magnesium level was not checked today. We will go ahead and get and magnesium level tomorrow. We give him a Dulcolax suppository today to see if we can stimulate passage of flatus and a bowel movement. Continue nasogastric tube decompression today. Ambulate chair. Continue IV antibiotics. Subjective Subjective Date/Time Seen: 07/07/22 11:01 Post Op day: 4 Interval history: Post op day 4 status post laparoscopic appendectomy for perforated appendicitis. He still appears to have a postoperative ileus. He is only passed 1 episode of flatus but no bowel movement yet. He continues to be mildly distended. Nasogastric tube output is less bilious [place] [address] he has been afebrile. He has been getting up to ambulate to a chair. He sat in a chair for 2hours yesterday. Exam Resp: Effort & Inspection: normal respiratory effort Auscultation: clear to auscultation bilaterally Cardio: Rate: regular rate Rhythm: regular rhythm GI: Other: Soft and moderately distended. Minimal diffuse tenderness. Incisions are healing well without any redness or drainage. ELSA drain output is serous. Extrem: Other: Mild 2+ pitting edema bilateral lower extremities. Psych: Mental Status: mental status grossly normal Affect: normal affect Objective Data Vital Signs Vital Signs: Vital Signs - 24 hr 07/06/22 12:00 07/06/22 13:00 07/06/22 13:35 Temperature 37.1 C 36.7 C Pulse Rate 82 80 Respiratory Rate 20 20 12 Blood Pressure 188/71 H 176/57 H Pulse Oximetry 95 95 96 Oxygen Delivery Room Air 07/06/22 16:00 07/06/22 20:00 07/06/22 20:00 Temperature 36.1 C L 36.9 C Pulse Rate 85 81 Respiratory Rate 12 18 Blood Pressure 153/58 H 181/62 H Pulse Oximetry 99 97 Oxygen Delivery Room Air 07/06/22 22:56 07/07/22 03:31 07/07/22 09:49 Temperature 36.9 C 36.9 C 36.2 C L Pulse Rate 80 82 81 Respiratory Rate 16 16 16 Blood Pressure 149/62 H 163/62 H 177/60 H Pulse Oximetry 97 98 Oxygen Delivery 07/07/22 08:42 Temperature Pulse Rate Respiratory Rate Blood Pressure Pulse Oximetry Oxygen Delivery Room Air Intake/Output Intake/Output: Intake & Output 07/04/22 07/05/22 07/06/22 07/07/22 23:59 23:59 23:59 23:59 Intake Total 1780 3650 3620 1100 Output Total 0755 4355 4275 890 [facility] -[phone] 210 Meds/Results Medications: Active Medications Generic Name Dose Route Start Last Admin Trade Name Freq PRN Reason Stop Dose Admin Acetaminophen 650 mg 07/03/22 09:38 07/03/22 23:25 Acetaminophen 325 Mg Tablet PO 650 mg Q6H PRN Administration Mild Pain (1-3) or Fever Benzonatate 200 mg 07/02/22 16:57 07/04/22 06:54 Benzonatate 100 Mg Capsule PO 200 mg TID PRN Administration cough Bisacodyl 10 mg 07/07/22 11:00 Bisacodyl 10 Mg Suppository RECTAL 07/07/22 11:01 ONCE ONE Bisacodyl 10 mg 07/07/22 10:55 Bisacodyl 10 Mg Suppository RECTAL QAM PRN Constipation Docusate Sodium 100 mg 07/03/22 15:25 Docusate Sodium 100 Mg Capsule PO Q12H PRN Constipation Ezetimibe 10 mg 07/03/22 09:00 07/04/22 10:41 Ezetimibe 10 Mg Tablet PO Not Given DAILY ROSY Enoxaparin Sodium 40 mg 07/03/22 09:00 07/07/22 08:42 Enoxaparin 40 Mg/0.4 Ml Syringe SUB-Q 40 mg DAILY ROSY Administration Furosemide 20 mg 07/07/22 10:59 Furosemide Inj 40 Mg/4 Ml Vial IV PUSH 07/07/22 11:00 ONCE ONE Gabapentin 600 mg 07/02/22 17:00 07/04/22 10:41 Gabapentin 300 Mg Capsule PO Not Given BID ROSY Hydralazine HCl 10 mg 07/07/22 09:53 07/07/22 10:14 Hydralazi
[2022-07-07] MEDS: BISACODYL 10 MG SUPPOSITORY RECTAL (11:08)
[2022-07-07] MEDS: FUROSEMIDE INJ 40 MG/4 ML VIAL 20 MG IV PUSH (11:08)
[2022-07-07] MEDS: KCL 20 MEQ/D5/0.45% SOD CHL 1,000 ML 90 ML IV CONT (11:30)
--- NOTE | 2022-07-07 11:46 | P.PNIM_ITS ---
Progress Note: A&P Assessment and Plan (1) Acute perforated appendicitis: Code(s): K35.32 - Acute appendicitis with perforation, localized peritonitis, and gangrene, without abscess Status: Acute Assessment and Plan: * S/p laparoscopic appendectomy on 07/02 * Continue Zosyn (WBC down to 12.1 today) * Managed per General surgery (2) RIC (acute kidney injury): Code(s): N17.9 - Acute kidney failure, unspecified Status: Acute Assessment and Plan: * Creatinine 1.9 admission * Resolved (3) Sepsis: Code(s): A41.9 - Sepsis, unspecified organism Status: Acute Assessment and Plan: * Secondary to acute perforated appendicitis * Clinically improving * Continue IV antibiotics as above (4) Bacteremia: Code(s): R78.81 - Bacteremia Status: Acute Assessment and Plan: * 2/2 blood cultures with growth of Bacteroides distasonis * Continue IV Zosyn * Repeat blood cultures today (5) HTN (hypertension): Code(s): I10 - Essential (primary) hypertension Status: Acute Assessment and Plan: * Blood pressure is running higher the past 1-2 days while p.o. antihypertensives on hold * Hydralazine as needed for systolic BP >165 * Lasix 20 mg IV x1 due to hypertension and edema * Monitor BP trends Subjective Date/time seen: 07/07/22 11:46 Interval history: Date of service: 07/07/2022 Ludin Menon a 76-year-old male with history of hypertension, hyperlipidemia, chronic back pain who is seen in follow-up for acute appendicitis. Patient reports being anxious today about being in the hospital. He complains of back pain which he reports is unchanged. He endorses abdominal discomfort which he rates as 5/10. He endorses bloating. Denies cramping. He is passing flatus but has not had a bowel movement. Denies shortness of breath, cough, chest pain. No urinary symptoms. Requests to speak with hospital stumper feller Review of Systems Review of Systems: All systems reviewed & are unremarkable except as noted in HPI and below Exam Narrative: General: Well-nourished, well-appearing 76-year-old male, sitting up in bed, comfortable, NARD Neuro: awake, alert and oriented x4, speech clear, no focal neuro deficits noted HEENMT: normocephalic, atraumatic, EOMI, sclerae anicteric Respiratory: clear to ausculta
--- NOTE | 2022-07-07 11:46 | PM.IMPN ---
Progress Note: A&P Assessment and Plan (1) Acute perforated appendicitis: Code(s): K35.32 - Acute appendicitis with perforation, localized peritonitis, and gangrene, without abscess Status: Acute Assessment and Plan: S/p laparoscopic appendectomy on 07/02 Continue Zosyn (WBC down to 12.1 today) Managed per General surgery (2) RIC (acute kidney injury): Code(s): N17.9 - Acute kidney failure, unspecified Status: Acute Assessment and Plan: Creatinine 1.9 admission Resolved (3) Sepsis: Code(s): A41.9 - Sepsis, unspecified organism Status: Acute Assessment and Plan: Secondary to acute perforated appendicitis Clinically improving Continue IV antibiotics as above (4) Bacteremia: Code(s): R78.81 - Bacteremia Status: Acute Assessment and Plan: 2/2 blood cultures with growth of Bacteroides distasonis Continue IV Zosyn Repeat blood cultures today (5) HTN (hypertension): Code(s): I10 - Essential (primary) hypertension Status: Acute Assessment and Plan: Blood pressure is running higher the past 1-2 days while p.o. antihypertensives on hold Hydralazine as needed for systolic BP >165 Lasix 20 mg IV x1 due to hypertension and edema Monitor BP trends Subjective Date/time seen: 07/07/22 11:46 Interval history: Date of service: 07/07/2022 Ludin Menon a 76-year-old male with history of hypertension, hyperlipidemia, chronic back pain who is seen in follow-up for acute appendicitis. Patient reports being anxious today about being in the hospital. He complains of back pain which he reports is unchanged. He endorses abdominal discomfort which he rates as 5/10. He endorses bloating. Denies cramping. He is passing flatus but has not had a bowel movement. Denies shortness of breath, cough, chest pain. No urinary symptoms. Requests to speak with hospital heading and priming tool setter Review of Systems Review of Systems: All systems reviewed & are unremarkable except as noted in HPI and below Exam Narrative: General: Well-nourished, well-appearing 76-year-old male, sitting up in bed, comfortable, NARD Neuro: awake, alert and oriented x4, speech clear, no focal neuro deficits noted HEENMT: normocephalic, atraumatic, EOMI, sclerae anicteric Respiratory: clear to auscultation bilaterally, nonlabored breathing Cardio: regular rate, regular rhythm with S1-S2 Abdomen: nondistended, normoactive bowel sounds, soft, nontender to palpation, ELSA drain with serous output Extremities: no edema, erythema, or tenderness to palpation Skin: no rashes or lesions, warm and dry Psych: appropriate mood, slightly anxious affect, judgment and insight intact Objective Data Vital Sign
[2022-07-07 13:49] VITALS: BP 191/73
[2022-07-07 16:51] VITALS: BP 174/67
[2022-07-07] MEDS: ONDANSETRON INJ 4 MG/2 ML VIAL IV PUSH (20:52)
[2022-07-07] MEDS: LORazepam INJ (*CRX) 2 MG/ML VIAL 0.5 MG IV PUSH (20:52)
[2022-07-07 21:49] VITALS: BP 148/68; PULSE 81; RESP 16; TEMP 37; O2SAT 98
[2022-07-08] MEDS: KCL 20 MEQ/D5/0.45% SOD CHL 1,000 ML 90 ML IV CONT ×2 (00:04→11:38)
[2022-07-08 00:10] VITALS: BP 142/55; PULSE 83; RESP 16; TEMP 36.8; O2SAT 95
[2022-07-08] MEDS: ONDANSETRON INJ 4 MG/2 ML VIAL IV PUSH ×2 (02:23→12:34)
[2022-07-08] MEDS: HYDROmorphone HCL INJ (*CRX) 1 MG/ML SYR 0.5 MG IV PUSH ×5 (04:54→22:37)
[2022-07-08 04:57] VITALS: BP 153/62; PULSE 81; RESP 16; TEMP 36.4; O2SAT 93
[2022-07-08 05:24] LABS: Basophils Absolute Auto 0.1 K/mm3 (0.0-0.1); Basophils Percent Auto 0.7 % (0.2-1.2); Eosinophils Absolute Auto 0.3 K/mm3 (0-0.3); Eosinophils Percent Auto 2.8 % (0-4.4); Hematocrit 37.3 % (42.0-52.0); Hemoglobin 11.8 g/dL (14.0-18.0); Immature Granulocyte Absolute 0.43 K/mm3 (0.00-0.031); Immature Granulocyte Percent A 4.4 % (0-0.5); Lymphocytes Absolute Auto 0.98 K/mm3 (0.9-3.2); Lymphocytes Percent Auto 10.1 % (18.3-44.2); Mean Corpuscular HGB Conc 31.6 g/dl (32-36); Mean Corpuscular Hemoglobin 28.4 pg (26-34); Mean Corpuscular Volume 89.7 fl (80-100); Mean Platelet Volume 11.5 fl (7.4-10.4); Monocytes Absolute Auto 1.1 K/mm3 (0.1-0.6); Monocytes Percent Auto 11.3 % (2.6-8.5); Neutrophils Absolute Auto 6.8 K/mm3 (1.3-6.7); Neutrophils Percent Auto 70.7 % (45.5-73.1); Platelet Count Result 244 k/mm3 (150-375); Red Blood Count 4.16 M/mm3 (4.6-6.20); Red Cell Distribution Width 14.6 % (11.5-14.5); White Blood Count 9.7 K/mm3 (4.5-10.0)
[2022-07-08] MEDS: PIPERACILLN/TAZ 3.375GM/NS50ML 3.375 GM/50 ML BAG IVPB ×3 (05:28→17:35)
[2022-07-08] MEDS: METOCLOPRAMIDE HCL INJ 10 MG/2 ML VIAL IV PUSH ×3 (05:29→17:35)
[2022-07-08 05:34] LABS: Alanine Aminotransferase 34 U/L (6-50); Albumin Level 2.8 g/dL (3.5-5.1); Alkaline Phosphatase 90 U/L (38-126); Anion Gap 3 mmol/L (8-16); Aspartate Amino Transferase 51 U/L (17-59); Bilirubin,Total 1.4 mg/dL (0.2-1.3); Blood Urea Nitrogen 29 mg/dL (9-20); Calcium 7.9 mg/dL (8.4-10.2); Carbon Dioxide 29 mmol/L (22-30); Chloride 109 mmol/L (98-107); Estimated CRCL calculation 78 ml/min; Estimated Glomerular Filt Rate > 60; Glucose 132 mg/dL (65-110); Phosphorus 3.7 mg/dL (2.5-4.5); Potassium 3.7 mmol/L (3.4-5.0); Sodium 141 mmol/L (137-145)
[2022-07-08] MEDS: PANTOPRAZOLE SODIUM IV 40 MG VIAL IV PUSH (08:31)
[2022-07-08] MEDS: ENOXAPARIN 40 MG/0.4 ML SYRINGE SUB-Q (08:31)
[2022-07-08] MEDS: BISACODYL 10 MG SUPPOSITORY RECTAL (08:38)
[2022-07-08 10:41] VITALS: BP 152/56; PULSE 91; RESP 16; TEMP 36.3; O2SAT 94
--- NOTE | 2022-07-08 11:13 | PM.PNGS ---
Progress Note: A&P Assessment and Plan (1) Acute perforated appendicitis: Code(s): K35.32 - Acute appendicitis with perforation, localized peritonitis, and gangrene, without abscess Status: Acute Assessment and Plan: Postop day 6 and still with postoperative ileus. Give another dulcolax suppository today. IV fluids currently with 20meq KCL, potassium this morning is 3.7. Will give an additional 40 meq KCL IVPB. Magnesium normal. Continue NG tube decompression, bowel rest, and maintenance IV fluids. Continue PT/OT to increase strength with goal of ambulation, up to chair today. Continue IV Zosyn, WBC normalized. Repeat labs again tomorrow. Plan I have discussed the patient's case and plan of care with Dr. Moreno. Subjective Subjective Date/Time Seen: 07/08/22 11:13 Post Op day: 6 (Laparoscopic appendectomy) Patient reports: voiding w/o difficulty, no flatus, no bowel movement and afebrile Interval history: Chart reviewed since last seen. He is sitting in the chair this morning and worked with PT to get to the chair. He was not able to ambulate due to generalized weakness. He reports generalized cramping abdominal pain and bloating. No better or worse than yesterday. No flatus or BM. Had a dulcolax suppository yesterday and again this morning. He reports having a hard time sleeping but getting some Ativan before bed last night for anxiety and having a better night sleeping. He also reports some lower extremity edema that is chronic, but slightly worse than normal. No other complaints at this time. NG tube with 700 cc output for day shift yesterday and another 700 cc output overnight last night. He is taking in ice chips with 4 cups yesterday. Review of Systems Review of Systems: All systems reviewed & are unremarkable except as noted in HPI and below Exam Const: General: comfortable and no acute distress Orientation/consciousness: patient oriented x3 Resp: Effort & Inspection: normal respiratory effort Auscultation: clear to auscultation bilaterally Cardio: Rate: regular rate Rhythm: regular rhythm GI: Inspection: distended, incision (dry and skin adhesive intact, no erythema or drainage) and other (RLQ ELSA drain with serous output) GI Palp: Yes Soft to palpation, Yes Tenderness to palpation present (GI) (diffusely tender) and No Guarding due to palpation present (GI) Auscultation: Hypoactive bowel sounds present Extrem: General: no calf tenderness and edema (mild bilateral 2+ pitting edema of lower extremities) Psych: Mental Status: mental status grossly normal Insight: Good insight present (Psych) Objective Data Vital Signs Vital Signs: Vital Signs - 24 hr 07/07/22 13:49 07/07/22 16:51 07/07/22 20:00 Temperature Pulse Rate Respiratory Rate Blood Pressure 191/73 H 174/67 H Pulse Oximetry Oxygen Delivery Room Air 07/07/22 21:49 07/08/22 00:10 07/08/22 04:57 Temperature 98.6 F 98.3 F 97.6 F Pulse Rate 81 83 81 Respiratory Rate 16 16 16 Blood Pressure 148/68 H 142/55 H 153/62 H Pulse Oximetry 98 95 93 Oxygen Delivery 07/08/22 10:41 Temperature 97.4 F L Pulse Rate 91 Respiratory Rate 16 Blood Pressure 152/56 H Pulse Oximetry 94 Oxygen Delivery Intake/Output Intake/Output: Intake & Output 07/05/22 07/06/22 07/07/22 07/08/22 23:59 23:59 23:59 23:59 Intake Total 3650 3620 2250 50 Output Total 4355 4275 2800 1600 [facility] -[phone] Meds/Results Medications: Active Medications Generic Name Dose Route Start Last Admin Trade Name Freq PRN Reason Stop Dose Admin Acetaminophen 650 mg 07/03/22 09:38 07/03/22 23:25 Acetaminophen 325 Mg Tablet PO 650 mg Q6H PRN Administration Mild Pain (1-3) or Fever Benzonatate 200 mg 07/02/22 16:57 07/04/22 06:54 Benzonatate 100 Mg Capsule PO 200 mg TID PRN Administration cough Bisacodyl 10 mg 07/07/22 10:55 07/08/22 08:38 Bisacodyl 10 Mg Suppository RECTAL 10 mg QA
--- NOTE | 2022-07-08 13:16 | P.PNIM_ITS ---
Progress Note: A&P Assessment and Plan (1) Acute perforated appendicitis: Code(s): K35.32 - Acute appendicitis with perforation, localized peritonitis, and gangrene, without abscess Status: Acute Assessment and Plan: * S/p laparoscopic appendectomy on 07/02 * Continue Zosyn (WBC down to 12.1 today) * Managed per General surgery (2) Postoperative paralytic ileus: Code(s): T81.89XA - Other complications of procedures, not elsewhere classified, initial encounter; K56.0 - Paralytic ileus Status: Acute Assessment and Plan: * Postop day 6, still with ileus * Dulcolax suppository given today per General surgery * NPO diet. Continue NG tube * Continue IV fluids * May need to consider TPN if not able to advance diet (3) RIC (acute kidney injury): Code(s): N17.9 - Acute kidney failure, unspecified Status: Resolved Assessment and Plan: * Creatinine 1.9 on admission * Resolved. Creatinine back to baseline, 1.0 today (4) Sepsis: Code(s): A41.9 - Sepsis, unspecified organism Status: Acute Assessment and Plan: * Secondary to acute perforated appendicitis * Clinically improving * Continue IV antibiotics as above (5) Bacteremia: Code(s): R78.81 - Bacteremia Status: Acute Assessment and Plan: * 2/2 blood cultures with growth of Bacteroides distasonis * Continue IV Zosyn * Repeat blood cultures collected on 07/07, negative today (6) HTN (hypertension): Code(s): I10 - Essential (primary) hypertension Status: Acute Assessment and Plan: * Blood pressures been slightly elevated, seems improved today. Last BP 152/56 * Hydralazine as needed for systolic BP >165 * Received 2 doses of IV Lasix due to edema, this improved BP * Monitor BP trends Subjective Date/time seen: 07/08/22 13:16 Interval history: Date of service: 07/08/2022 Ludin Menon a 76-year-old male with history of hypertension, hyperlipidemia, chronic back pain who is seen in follow-up for acute appendicitis. He feels anxious still today. Reports he has been having trouble sleeping. His symptoms have improved this morning after taking some pain medication. He has not had any bowel movements or passed flatus but states that his belly is ?rumbling? after receiving a suppository. He denies fevers but does endorse chills. Continues to endorse nausea but no episodes of emesis. Endorses 6/10 abdominal discomfort in the middle of his abdomen ?going left to right. ? Denies shortness of breath, cough, or chest pain
--- NOTE | 2022-07-08 13:16 | PM.IMPN ---
Progress Note: A&P Assessment and Plan (1) Acute perforated appendicitis: Code(s): K35.32 - Acute appendicitis with perforation, localized peritonitis, and gangrene, without abscess Status: Acute Assessment and Plan: S/p laparoscopic appendectomy on 07/02 Continue Zosyn (WBC down to 12.1 today) Managed per General surgery (2) Postoperative paralytic ileus: Code(s): T81.89XA - Other complications of procedures, not elsewhere classified, initial encounter; K56.0 - Paralytic ileus Status: Acute Assessment and Plan: Postop day 6, still with ileus Dulcolax suppository given today per General surgery NPO diet. Continue NG tube Continue IV fluids May need to consider TPN if not able to advance diet (3) RIC (acute kidney injury): Code(s): N17.9 - Acute kidney failure, unspecified Status: Resolved Assessment and Plan: Creatinine 1.9 on admission Resolved. Creatinine back to baseline, 1.0 today (4) Sepsis: Code(s): A41.9 - Sepsis, unspecified organism Status: Acute Assessment and Plan: Secondary to acute perforated appendicitis Clinically improving Continue IV antibiotics as above (5) Bacteremia: Code(s): R78.81 - Bacteremia Status: Acute Assessment and Plan: 2/2 blood cultures with growth of Bacteroides distasonis Continue IV Zosyn Repeat blood cultures collected on 07/07, negative today (6) HTN (hypertension): Code(s): I10 - Essential (primary) hypertension Status: Acute Assessment and Plan: Blood pressures been slightly elevated, seems improved today. Last BP 152/56 Hydralazine as needed for systolic BP >165 Received 2 doses of IV Lasix due to edema, this improved BP Monitor BP trends Subjective Date/time seen: 07/08/22 13:16 Interval history: Date of service: 07/08/2022 Ludin Menon a 76-year-old male with history of hypertension, hyperlipidemia, chronic back pain who is seen in follow-up for acute appendicitis. He feels anxious still today. Reports he has been having trouble sleeping. His symptoms have improved this morning after taking some pain medication. He has not had any bowel movements or passed flatus but states that his belly is ?rumbling? after receiving a suppository. He denies fevers but does endorse chills. Continues to endorse nausea but no episodes of emesis. Endorses 6/10 abdominal discomfort in the middle of his abdomen ?going left to right. ? Denies shortness of breath, cough, or chest pain Review of Systems Review of Systems: All systems reviewed & are unremarkable except as noted in HPI and below Exam Narrative: General: Well-nourished, well-appearing 76-year-old male, sitti
[2022-07-08 14:07] VITALS: BP 176/78; PULSE 79; RESP 18; TEMP 36.9; O2SAT 96
[2022-07-08] MEDS: hydrALAZINE HCL 20 MG/ML VIAL 10 MG IV PUSH (14:13)
[2022-07-08] MEDS: POTASSIUM CHLORIDE INJ 40 MEQ in SODIUM CHLORIDE 0.9% IV 500 ML 130 MEQ IVPB (15:47)
[2022-07-08 20:00] VITALS: BP 157/61; PULSE 79; PULSE 87; RESP 18; RESP 20; TEMP 36.7; O2SAT 95; O2SAT 96
[2022-07-08 22:29] VITALS: BP 157/61; PULSE 88; RESP 16; TEMP 36.7; O2SAT 95
[2022-07-09] VITALS (9 sets, daily range): BP systolic 146–171; BP diastolic 54–78; PULSE 73–81; RESP 14–20; TEMP 36.3–36.9; O2SAT 94–99
[2022-07-09] MEDS: PIPERACILLN/TAZ 3.375GM/NS50ML 3.375 GM/50 ML BAG IVPB ×5 (00:13→23:31)
[2022-07-09] MEDS: METOCLOPRAMIDE HCL INJ 10 MG/2 ML VIAL IV PUSH ×5 (00:13→23:31)
[2022-07-09] MEDS: HYDROmorphone HCL INJ (*CRX) 1 MG/ML SYR 0.5 MG IV PUSH ×3 (05:18→21:19)
[2022-07-09] MEDS: KCL 20 MEQ/D5/0.45% SOD CHL 1,000 ML 90 ML IV CONT (05:18)
[2022-07-09 05:42] LABS: Hemoglobin 12.3 g/dL (14.0-18.0); Mean Corpuscular HGB Conc 31.5 g/dl (32-36); Mean Corpuscular Hemoglobin 28.7 pg (26-34); Mean Corpuscular Volume 90.9 fl (80-100); Mean Platelet Volume 11.6 fl (7.4-10.4); Platelet Count Result 253 k/mm3 (150-375); Red Blood Count 4.29 M/mm3 (4.6-6.20); Red Cell Distribution Width 14.8 % (11.5-14.5); White Blood Count 11.5 K/mm3 (4.5-10.0)
[2022-07-09 06:00] LABS: Anion Gap 2 mmol/L (8-16); Blood Urea Nitrogen 23 mg/dL (9-20); Carbon Dioxide 30 mmol/L (22-30); Chloride 112 mmol/L (98-107); Estimated CRCL calculation 71 ml/min; Estimated Glomerular Filt Rate > 60; Glucose 125 mg/dL (65-110); Potassium 4.1 mmol/L (3.4-5.0); Sodium 144 mmol/L (137-145)
[2022-07-09 08:13] LABS: Alanine Aminotransferase 78 U/L (6-50); Albumin Level 2.7 g/dL (3.5-5.1); Alkaline Phosphatase 113 U/L (38-126); Aspartate Amino Transferase 96 U/L (17-59); Bilirubin,Total 1.2 mg/dL (0.2-1.3)
[2022-07-09] MEDS: ENOXAPARIN 40 MG/0.4 ML SYRINGE SUB-Q (09:41)
[2022-07-09] MEDS: PANTOPRAZOLE SODIUM IV 40 MG VIAL IV PUSH (09:41)
--- NOTE | 2022-07-09 14:56 | PM.PNGS ---
Progress Note: A&P Assessment and Plan (1) Acute perforated appendicitis: Code(s): K35.32 - Acute appendicitis with perforation, localized peritonitis, and gangrene, without abscess Status: Acute Assessment and Plan: Postop day 7 and bowel function returning. Start NG clamping trial this morning. Will remove NG tube and start clear liquids if he tolerates clamping. Decrease IV fluids. Continue IV Zosyn. Monitor ESLA drain. Continue PT/OT and encourage increasing activity as tolerated. WBC noted at 11,500 today, repeat labs tomorrow. CC working with patient on SNF placement on discharge. (2) Urinary retention: Code(s): R33.9 - Retention of urine, unspecified Status: Acute Assessment and Plan: Urinary retention with subsequent indwelling urinary catheter placement yesterday. Continue Odom for now. Will start Flomax. Plan I have discussed the patient's case and plan of care with Dr. Moreno. Subjective Subjective Date/Time Seen: 07/09/22 11:56 Post Op day: 7 (Laparoscopic appendectomy) Patient reports: no new complaints, feels better, pain is less, flatus and bowel movement Interval history: Patient seen today and still has some cramping abdominal pain that is in the center of his abdomen, near one of his incisions, but feels this is slightly better today. He has had at least 2 bowel movements this morning. His NG was clamped for the past hour and he is not having any nausea or bloating. He had urinary retention yesterday and an indwelling odom catheter was placed. He is still feeling anxious today. No other complaints at this time. Review of Systems Review of Systems: ROS unchanged Exam Const: General: comfortable and no acute distress Orientation/consciousness: patient oriented x3 Resp: Effort & Inspection: normal respiratory effort Auscultation: clear to auscultation bilaterally Cardio: Rate: regular rate Rhythm: regular rhythm GI: Inspection: incision (dry and skin adhesive intact, no erythema or drainage) and other (RLQ ELSA drain with serous output) GI Palp: Yes Soft to palpation, Yes Tenderness to palpation present (GI) (incisional tenderness mostly near the supraumbilical incision), No Guarding due to palpation present (GI) and No Rebound tenderness present Auscultation: normal bowel sounds Other: Abdomen less distended and softer today Urinary Catheter: Urinary Catheter: patent and draining and urine clear Neuro: General: moves all extremities and no focal motor deficits Extrem: General: no calf tenderness and edema (mild bilateral 2+ pitting edema of lower extremities) Psych: Mental Status: mental status grossly normal Insight: Good insight present (Psych) Objective Data Vital Signs Vital Signs: Vital Signs - 24 hr 07/08/22 20:00 07/08/22 22:29 07/08/22 20:00 Temperature 98.0 F 98.0 F Pulse Rate 79 88 87 Respiratory Rate 18 16 20 Blood Pressure 157/61 H 157/61 H Pulse Oximetry 96 95 95 Oxygen Delivery Room Air 07/09/22 00:43 07/09/22 06:59 07/09/22 10:01 Temperature 98.4 F 97.9 F 97.4 F L Pulse Rate 81 75 75 Respiratory Rate 16 14 18 Blood Pressure 150/54 H 146/60 H 155/60 H Pulse Oximetry 95 94 96 Oxygen Delivery 07/09/22 07:50 07/09/22 14:34 Temperature 97.5 F L Pulse Rate 73 Respiratory Rate 18 18 Blood Pressure 159/78 H Pulse Oximetry 96 98 Oxygen Delivery Room Air Intake/Output Intake/Output: Intake & Output 07/06/22 07/07/22 07/08/22 07/09/22 23:59 23:59 23:59 23:59 Intake Total 3620 2250 2770 150 Output Total 4275 2800 4200 980 Balance -655 -550 -1430 -830 Meds/Results Medications: Active Medications Generic Name Dose Route Start Last Admin Trade Name Freq PRN Reason Stop Dose Admin Benzonatate 200 mg 07/02/22 16:57 07/04/22 06:54 Benzonatate 100 Mg Capsule PO 200 mg TID PRN Administration cough Bisacodyl 10 mg 07/07/22 10:55 07/08/22 08:38 Bisacodyl 10 Mg Suppository RECT
[2022-07-09] MEDS: oxyCODONE HCL (*CRX) 5 MG TAB IR PO ×2 (15:38→19:59)
--- NOTE | 2022-07-09 16:03 | P.PNIM_ITS ---
Progress Note: A&P Assessment and Plan (1) Acute perforated appendicitis: Code(s): K35.32 - Acute appendicitis with perforation, localized peritonitis, and gangrene, without abscess Status: Acute Assessment and Plan: * S/p laparoscopic appendectomy on 07/02 * Continue Zosyn (WBC down to 11.5 today) * Managed per General surgery (2) Postoperative paralytic ileus: Code(s): T81.89XA - Other complications of procedures, not elsewhere classified, initial encounter; K56.0 - Paralytic ileus Status: Acute Assessment and Plan: * Postop day 7, bowel function has returned * NG tube removed today and patient has been started on clear liquids * Continue gentle IV fluids until better tolerating diet (3) RIC (acute kidney injury): Code(s): N17.9 - Acute kidney failure, unspecified Status: Resolved Assessment and Plan: * Creatinine 1.9 on admission * Resolved. Creatinine back to baseline, 1.1 today (4) Sepsis: Code(s): A41.9 - Sepsis, unspecified organism Status: Acute Assessment and Plan: * Secondary to acute perforated appendicitis * Clinically improving * Continue IV antibiotics as above (5) Bacteremia: Code(s): R78.81 - Bacteremia Status: Acute Assessment and Plan: * 2/2 blood cultures with growth of Bacteroides distasonis * Continue IV Zosyn * Repeat blood cultures collected on 07/07, negative to date (6) HTN (hypertension): Code(s): I10 - Essential (primary) hypertension Status: Acute Assessment and Plan: * Blood pressures improving. Last BP 159/78 * Hydralazine as needed for systolic BP >165 * will resume patient's p.o. lisinopril and hydrochlorothiazide * Monitor BP trends Subjective Date/time seen: 07/09/22 16:04 Interval history: Date of service: 07/09/2022 Ludin Menon a 76-year-old male with history of hypertension, hyperlipidemia, chronic back pain who is seen in follow-up for acute appendicitis. He is starting to feel a bit better today. He reports several loose stools today. He still has midline abdominal pain. Also complains of back pain due to laying in bed. Denies fever, chills, dizziness, lightheadedness. He has been able to get up with assistance. Anxiety is improved today. No urinary symptoms. No issues with NG tube. Review of Systems Review of Systems: All systems reviewed & are unremarkable except as noted in HPI and below Exam Narrative: Gen
--- NOTE | 2022-07-09 16:03 | PM.IMPN ---
Progress Note: A&P Assessment and Plan (1) Acute perforated appendicitis: Code(s): K35.32 - Acute appendicitis with perforation, localized peritonitis, and gangrene, without abscess Status: Acute Assessment and Plan: S/p laparoscopic appendectomy on 07/02 Continue Zosyn (WBC down to 11.5 today) Managed per General surgery (2) Postoperative paralytic ileus: Code(s): T81.89XA - Other complications of procedures, not elsewhere classified, initial encounter; K56.0 - Paralytic ileus Status: Acute Assessment and Plan: Postop day 7, bowel function has returned NG tube removed today and patient has been started on clear liquids Continue gentle IV fluids until better tolerating diet (3) RIC (acute kidney injury): Code(s): N17.9 - Acute kidney failure, unspecified Status: Resolved Assessment and Plan: Creatinine 1.9 on admission Resolved. Creatinine back to baseline, 1.1 today (4) Sepsis: Code(s): A41.9 - Sepsis, unspecified organism Status: Acute Assessment and Plan: Secondary to acute perforated appendicitis Clinically improving Continue IV antibiotics as above (5) Bacteremia: Code(s): R78.81 - Bacteremia Status: Acute Assessment and Plan: 2/2 blood cultures with growth of Bacteroides distasonis Continue IV Zosyn Repeat blood cultures collected on 07/07, negative to date (6) HTN (hypertension): Code(s): I10 - Essential (primary) hypertension Status: Acute Assessment and Plan: Blood pressures improving. Last BP 159/78 Hydralazine as needed for systolic BP >165 will resume patient's p.o. lisinopril and hydrochlorothiazide Monitor BP trends Subjective Date/time seen: 07/09/22 16:04 Interval history: Date of service: 07/09/2022 Ludin Menon a 76-year-old male with history of hypertension, hyperlipidemia, chronic back pain who is seen in follow-up for acute appendicitis. He is starting to feel a bit better today. He reports several loose stools today. He still has midline abdominal pain. Also complains of back pain due to laying in bed. Denies fever, chills, dizziness, lightheadedness. He has been able to get up with assistance. Anxiety is improved today. No urinary symptoms. No issues with NG tube. Review of Systems Review of Systems: All systems reviewed & are unremarkable except as noted in HPI and below Exam Narrative: General: Well-nourished, well-appearing 76-year-old male, supine in bed, comfortable Neuro: awake, alert and oriented x4, speech clear, no focal neuro deficits noted HEENMT: normocephalic, atraumatic, EOMI, sclerae anicteric Respiratory: clear to auscultation bilaterally, nonlabored breathing Cardio: regular rate, regular rhythm with S1-S2 Abdomen: nondistended, normoactive bowel sounds, soft, slightly tender to palp
[2022-07-09] MEDS: KCL 20 MEQ/D5/0.45% SOD CHL 1,000 ML 60 ML IV CONT (18:11)
[2022-07-09] MEDS: hydrALAZINE HCL 20 MG/ML VIAL 10 MG IV PUSH (23:31)
[2022-07-10] VITALS (7 sets, daily range): BP systolic 93–147; BP diastolic 45–83; PULSE 81–91; RESP 16–19; TEMP 35.8–36.9; O2SAT 96–99; BMI 41.2
[2022-07-10] MEDS: FLUoxetine HCL 10 MG CAPSULE PO (02:38)
[2022-07-10] MEDS: MELATONIN 3 MG TABLET PO ×2 (02:40→20:09)
[2022-07-10] MEDS: HYDROmorphone HCL INJ (*CRX) 1 MG/ML SYR 0.5 MG IV PUSH ×2 (05:09→10:29)
[2022-07-10] MEDS: PIPERACILLN/TAZ 3.375GM/NS50ML 3.375 GM/50 ML BAG IVPB ×2 (05:09→11:58)
[2022-07-10] MEDS: ONDANSETRON INJ 4 MG/2 ML VIAL IV PUSH (05:16)
[2022-07-10 05:37] LABS: Hemoglobin 11.6 g/dL (14.0-18.0); Mean Corpuscular HGB Conc 31.4 g/dl (32-36); Mean Corpuscular Hemoglobin 28.4 pg (26-34); Mean Corpuscular Volume 90.7 fl (80-100); Mean Platelet Volume 12.1 fl (7.4-10.4); Platelet Count Result 230 k/mm3 (150-375); Red Blood Count 4.08 M/mm3 (4.6-6.20); Red Cell Distribution Width 14.6 % (11.5-14.5); White Blood Count 9.6 K/mm3 (4.5-10.0)
[2022-07-10 05:50] LABS: Anion Gap 0 mmol/L (8-16); Blood Urea Nitrogen 17 mg/dL (9-20); Calcium 7.7 mg/dL (8.4-10.2); Carbon Dioxide 31 mmol/L (22-30); Chloride 109 mmol/L (98-107); Estimated CRCL calculation 80 ml/min; Estimated Glomerular Filt Rate > 60; Glucose 116 mg/dL (65-110); Sodium 140 mmol/L (137-145)
[2022-07-10] MEDS: ENOXAPARIN 40 MG/0.4 ML SYRINGE SUB-Q (10:11)
[2022-07-10] MEDS: TAMSULOSIN HCL 0.4 MG CAPSULE PO (10:12)
[2022-07-10] MEDS: PANTOPRAZOLE SODIUM IV 40 MG VIAL IV PUSH (10:12)
--- NOTE | 2022-07-10 10:15 | P.PNIM_ITS ---
Progress Note: A&P Assessment and Plan (1) Acute perforated appendicitis: Code(s): K35.32 - Acute appendicitis with perforation, localized peritonitis, and gangrene, without abscess Status: Acute Assessment and Plan: * S/p laparoscopic appendectomy on 07/02 * Change Zosyn to flagyl and augmentin (WBC down to 9.6 today) * Continue to trend labs * Surgery to remove drain today (2) Postoperative paralytic ileus: Code(s): T81.89XA - Other complications of procedures, not elsewhere classified, initial encounter; K56.0 - Paralytic ileus Status: Acute Assessment and Plan: * Postop day 8, bowel function has returned * NG tube removed today and patient has been started on clear liquids * Continue gentle IV fluids until better tolerating diet * Tolerating diet * diet advanced to full liquids (3) RIC (acute kidney injury): Code(s): N17.9 - Acute kidney failure, unspecified Status: Resolved Assessment and Plan: * Creatinine 1.9 on admission * Resolved. Creatinine back to baseline, 1.0 today (4) Sepsis: Code(s): A41.9 - Sepsis, unspecified organism Status: Acute Assessment and Plan: * Secondary to acute perforated appendicitis * Clinically improving * Change IV antibiotics to augmentin and flagyl (5) Bacteremia: Code(s): R78.81 - Bacteremia Status: Acute Assessment and Plan: * 2/2 blood cultures with growth of Bacteroides distasonis * Change zosyn to augmentin and flagyl * Repeat blood cultures collected on 07/07, negative to date (6) HTN (hypertension): Code(s): I10 - Essential (primary) hypertension Status: Acute Assessment and Plan: * Blood pressures improving. Last BP 93/67 * Hydralazine as needed for systolic BP >165 * will resume patient's p.o. lisinopril and hydrochlorothiazide * Monitor BP trends Plan Notable swelling to bilateral lower extremities start IV lasix x3 doses Add kandy hose Time Spent With Patient Time: 38 minutes Time with patient: Greater than 35 minutes Subjective Date/time seen: 07/10/22 1015 Interval history: 07/10/22 1015 patient is currently sit in the chair. Patient stated that he had just got some pain medicine so his pain was not bad. He was really excited that he got to eat today. He did state that the pain was worse due to playing in the bed. He had a little bit nauseous this last night and a little bit of anxiety however was relieve medication. Continues to have no chest pain, shortness a breath, nausea, vomiting, diarrhea constipation. Labs and vital signs remained stable at this time. Date of service: 07/09/2022 Ludin Menon a 76-year-old male with history of hypertension, hyperlipidemia, chronic back pain who is seen in follow-up for acute appendicitis. He is starting to feel a bit better today. He reports several loose stools today. He still has midline abdominal pain. Also complains of back pain due to laying in bed. Denies fever, chills, dizziness, lightheadedness. He has been able to get up with assistance. Anxiety is improved today. No urinary symptoms. No issues with NG tube.
[2022-07-10] MEDS: KCL 20 MEQ/D5/0.45% SOD CHL 1,000 ML 60 ML IV CONT (10:35)
--- NOTE | 2022-07-10 13:36 | PM.PNGS ---
Progress Note: A&P Assessment and Plan (1) Acute perforated appendicitis: Code(s): K35.32 - Acute appendicitis with perforation, localized peritonitis, and gangrene, without abscess Status: Acute Assessment and Plan: Tolerating clear liquids well. Bowels are moving. Advance to full liquids, start Ensure compact supplements. Stop IV fluids. Continue IV Zosyn. Increase activity as tolerated, continue PT/OT. CC working on SNF placement to [facility]. Hopefully, he can be discharged to SNF in the next few days if he continues to improve. (2) Urinary retention: Code(s): R33.9 - Retention of urine, unspecified Status: Acute Assessment and Plan: Continue Flomax. He feels he had an issue with urinating as he was not strong enough to stand for urination. He wishes to hold off on removing the catheter at least one more day to continue to work on his strength. He is also being diuresed today, therefore we will keep the Bowman today and potentially remove tomorrow. Plan I have discussed the patient's case and plan of care with Dr. Moreno. Subjective Subjective Date/Time Seen: 07/10/22 13:36 Post Op day: 8 (Laparoscopic appendectomy) Patient reports: no new complaints, feels better, pain is less, flatus, bowel movement and afebrile Interval history: Patient doing well today. Feeling better overall and reports feeling stronger. He has been in the chair today. He is tolerating clear liquids. He had a few BMs yesterday and another one overnight. He did not sleep well last night and was started on melatonin. He denies any nausea or bloating. His abdominal pain is improved today. Just some mild pain near the periumbilical incision. Review of Systems Review of Systems: ROS unchanged Exam Const: General: comfortable and no acute distress Orientation/consciousness: patient oriented x3 GI: Inspection: non-distended, incision (dry and skin adhesive intact, no erythema or drainage) and other (RLQ ELSA drain with serous output) GI Palp: Yes Soft to palpation, Yes Tenderness to palpation present (GI) (incisional) and No Guarding due to palpation present (GI) Auscultation: normal bowel sounds Urinary Catheter: Urinary Catheter: patent and draining and urine dark Extrem: General: no calf tenderness and edema (bilateral 3+ pitting edema of lower extremities) Psych: Mental Status: mental status grossly normal Insight: Good insight present (Psych) Objective Data Vital Signs Vital Signs: Vital Signs - 24 hr 07/09/22 14:34 07/09/22 18:00 07/09/22 19:48 Temperature 97.5 F L 98.1 F 97.6 F Pulse Rate 73 81 77 Respiratory Rate 18 18 16 Blood Pressure 159/78 H 165/66 H 164/70 H Pulse Oximetry 98 99 99 Oxygen Delivery 07/09/22 20:00 07/09/22 23:04 07/10/22 04:00 Temperature 97.7 F 98.4 F Pulse Rate 77 76 82 Respiratory Rate 16 20 19 Blood Pressure 171/68 H 147/60 H Pulse Oximetry 99 96 96 Oxygen Delivery Room Air 07/10/22 09:45 07/10/22 10:00 07/10/22 08:00 Temperature 96.4 F L Pulse Rate 88 86 Respiratory Rate 18 Blood Pressure 118/45 L 121/57 L Pulse Oximetry 98 Oxygen Delivery Room Air Intake/Output Intake/Output: Intake & Output 07/07/22 07/08/22 07/09/22 07/10/22 23:59 23:59 23:59 23:59 Intake Total 2250 2770 2280 2280 Output Total 2800 4200 1900 690 Balance -550 -2143 901 0217 Meds/Results Medications: Active Medications Generic Name Dose Route Start Last Admin Trade Name Freq PRN Reason Stop Dose Admin Benzonatate 200 mg 07/02/22 16:57 07/04/22 06:54 Benzonatate 100 Mg Capsule PO 200 mg TID PRN Administration cough Bisacodyl 10 mg 07/07/22 10:55 07/08/22 08:38 Bisacodyl 10 Mg Suppository RECTAL 10 mg QAM PRN Administration Constipation Docusate Sodium 100 mg 07/03/22 15:25 Docusate Sodium 100 Mg Capsule PO Q12H PRN Constipation Ezetimibe 10 mg 07/03/22 09:00 07/04/22 10:41 Ezetimibe 1
[2022-07-10] MEDS: FUROSEMIDE INJ 40 MG/4 ML VIAL IV PUSH (18:09)
[2022-07-10] MEDS: AMOXICILLIN/CLAVULANATE K 875-125 MG TAB 1 TABLET PO (20:09)
[2022-07-10] MEDS: DOCUSATE SODIUM 100 MG CAPSULE PO (20:09)
[2022-07-10] MEDS: metroNIDAZOLE 250 MG TABLET 500 MG PO (21:41)
[2022-07-11] VITALS (7 sets, daily range): BP systolic 97–135; BP diastolic 41–87; PULSE 79–99; RESP 16–18; TEMP 36.3–36.9; O2SAT 92–100
[2022-07-11] MEDS: oxyCODONE HCL (*CRX) 5 MG TAB IR PO ×2 (02:15→20:14)
[2022-07-11 05:13] LABS: Basophils Percent Auto 0.4 % (0.2-1.2); Eosinophils Absolute Auto 0.3 K/mm3 (0-0.3); Eosinophils Percent Auto 3.3 % (0-4.4); Hematocrit 38.8 % (42.0-52.0); Hemoglobin 12.2 g/dL (14.0-18.0); Immature Granulocyte Absolute 0.23 K/mm3 (0.00-0.031); Immature Granulocyte Percent A 2.4 % (0-0.5); Lymphocytes Absolute Auto 0.83 K/mm3 (0.9-3.2); Lymphocytes Percent Auto 8.7 % (18.3-44.2); Mean Corpuscular HGB Conc 31.4 g/dl (32-36); Mean Corpuscular Hemoglobin 29.1 pg (26-34); Mean Corpuscular Volume 92.6 fl (80-100); Mean Platelet Volume 11.7 fl (7.4-10.4); Monocytes Absolute Auto 0.6 K/mm3 (0.1-0.6); Monocytes Percent Auto 6.4 % (2.6-8.5); Neutrophils Absolute Auto 7.5 K/mm3 (1.3-6.7); Neutrophils Percent Auto 78.8 % (45.5-73.1); Platelet Count Result 222 k/mm3 (150-375); Red Blood Count 4.19 M/mm3 (4.6-6.20); Red Cell Distribution Width 14.9 % (11.5-14.5); White Blood Count 9.5 K/mm3 (4.5-10.0)
[2022-07-11 05:23] LABS: Anion Gap 6 mmol/L (8-16); Blood Urea Nitrogen 16 mg/dL (9-20); Carbon Dioxide 27 mmol/L (22-30); Chloride 104 mmol/L (98-107); Estimated CRCL calculation 73 ml/min; Estimated Glomerular Filt Rate > 60; Glucose 114 mg/dL (65-110); Potassium 4.1 mmol/L (3.4-5.0); Sodium 137 mmol/L (137-145)
[2022-07-11] MEDS: metroNIDAZOLE 250 MG TABLET 500 MG PO ×3 (05:45→21:52)
[2022-07-11] MEDS: DOCUSATE SODIUM 100 MG CAPSULE PO ×2 (09:57→20:14)
[2022-07-11] MEDS: ENOXAPARIN 40 MG/0.4 ML SYRINGE SUB-Q (09:57)
[2022-07-11] MEDS: AMOXICILLIN/CLAVULANATE K 875-125 MG TAB 1 TABLET PO ×2 (09:57→20:14)
[2022-07-11] MEDS: FLUoxetine HCL 10 MG CAPSULE PO (09:58)
[2022-07-11] MEDS: hydroCHLOROthiazide 25 MG TABLET PO (09:58)
[2022-07-11] MEDS: FUROSEMIDE INJ 40 MG/4 ML VIAL IV PUSH ×2 (09:58→17:05)
[2022-07-11] MEDS: lisinopriL 20 MG TABLET 40 MG PO (09:59)
[2022-07-11] MEDS: PANTOPRAZOLE SODIUM IV 40 MG VIAL IV PUSH (09:59)
[2022-07-11] MEDS: TAMSULOSIN HCL 0.4 MG CAPSULE PO (10:03)
--- NOTE | 2022-07-11 11:00 | PM.IMPN ---
Progress Note: A&P Assessment and Plan (1) Acute perforated appendicitis: Code(s): K35.32 - Acute appendicitis with perforation, localized peritonitis, and gangrene, without abscess Status: Acute Assessment and Plan: S/p laparoscopic appendectomy on 07/02 Change Zosyn to Flagyl and Augmentin (WBC down to 9.5 today) Continue to trend labs Surgery to remove drain today (2) Postoperative paralytic ileus: Code(s): T81.89XA - Other complications of procedures, not elsewhere classified, initial encounter; K56.0 - Paralytic ileus Status: Acute Assessment and Plan: Postop day 9, bowel function has returned NG tube removed today and patient has been started on clear liquids Continue gentle IV fluids until better tolerating diet Tolerating diet diet advanced to full liquids (3) RIC (acute kidney injury): Code(s): N17.9 - Acute kidney failure, unspecified Status: Resolved Assessment and Plan: Creatinine 1.9 on admission Resolved. Creatinine back to baseline, 1.10 today (4) Sepsis: Code(s): A41.9 - Sepsis, unspecified organism Status: Acute Assessment and Plan: Secondary to acute perforated appendicitis Clinically improving Change IV antibiotics to augmentin and flagyl, (5) Bacteremia: Code(s): R78.81 - Bacteremia Status: Acute Assessment and Plan: 2/2 blood cultures with growth of Bacteroides distasonis Change zosyn to augmentin and flagyl Repeat blood cultures collected on 07/07, negative to date (6) HTN (hypertension): Code(s): I10 - Essential (primary) hypertension Status: Acute Assessment and Plan: Blood pressures improving. Last BP 93/67 Hydralazine as needed for systolic BP >165 will resume patient's p.o. lisinopril and hydrochlorothiazide Monitor BP trends Plan Notable swelling to bilateral lower extremities start IV lasix x3 doses Add kandy hose Time Spent With Patient Time: 41 minutes Time with patient: Greater than 35 minutes Subjective Date/time seen: 07/11/22 1100 Interval history: 07/11/22 1100 Patient is sitting in the chair resting comfortably. He currently denies any chest pain, shortness a breath, nausea, vomiting, diarrhea constipation. He did state that he does not think the kandy hose are helping his legs. Legs still have 3 to 4+ pitting edema. urinary catheter is still present. He has been able to tolerate full liquids. He denies having any pain. 07/10/22 1015 patient is currently sit in the chair. Patient stated that he had just got some pain medicine so his pain was not bad. He was really excited that he got to eat today. He did state that the pain was worse due to playing in the bed. He had a little bit nauseous this last night and a little bit of anxiety however was relieve medication. Continues to have no chest pain, shortness a breath, nausea, vomiting, diarrhea constipation. Labs and vital signs remained stable at this time. Date of service: 07/09/2022 Ludin Menon a 76-year-old male with history of hypertension, hyperlipidemia, chronic back pain who is seen in follow-up for acute appendicitis. He is starting to feel a bit better today. He reports several loose stools today. He still has midline abdominal pain. Also complains of back pain due to laying in bed. Denies fever, chills, dizziness, lightheadedness. He has been able to get up with assistance. Anxiety is improved today. No urinary symptoms. No issues with NG tube.
--- NOTE | 2022-07-11 12:08 | PM.PNGS ---
Progress Note: A&P Assessment and Plan (1) Acute perforated appendicitis: Code(s): K35.32 - Acute appendicitis with perforation, localized peritonitis, and gangrene, without abscess Status: Acute Plan Postoperative ileus is not resolved after his perforated appendicitis. White blood count is normal he is on oral antibiotics. We will go ahead and advance him to a soft regular diet. Therapy is still seeing him. I think he has been accepted to nursing home at [facility] and can probably a discharge to nursing home facility hopefully hopefully tomorrow. Will try to get the Bowman catheter out again today. Subjective Subjective Date/Time Seen: 07/11/22 12:08 Interval history: Patient continues do well. Bowman class there is still a placed after diuresis. He is stronger today and will likely have the have the catheter removed. He is on Flomax. He tolerated full liquids very well. Having some bowel movements. He is afebrile and white blood cell count is normal. Review of Systems Review of Systems: The remainder of the review of systems to include constitutional, HEENT, cardiovascular, respiratory, GI, , integumentary, musculoskeletal, endocrine, immunologic, hematologic, psychiatric, and neurologic are all negative except for which is mentioned above in the HPI. Exam Const: General: comfortable and no acute distress Resp: Effort & Inspection: normal respiratory effort Auscultation: clear to auscultation bilaterally Cardio: Rate: regular rate Rhythm: regular rhythm GI: Other: Abdomen is soft and nondistended. Laparoscopic incisions are healing well. No redness or drainage. Good bowel sounds. Neuro: Speech: normal speech Sensory Exam: normal sensation Psych: Mental Status: mental status grossly normal Affect: normal affect Objective Data Vital Signs Vital Signs: Vital Signs - 24 hr 07/10/22 13:50 07/10/22 16:30 07/10/22 19:33 Temperature 36.2 C L 35.9 C L 36.3 C L Pulse Rate 81 91 86 Respiratory Rate 18 18 16 Blood Pressure 93/67 L 126/57 L 141/52 H Pulse Oximetry 99 97 99 Oxygen Delivery 07/10/22 20:00 07/10/22 23:09 07/11/22 04:00 Temperature 36.5 C 36.4 C L Pulse Rate 89 79 Respiratory Rate 17 18 Blood Pressure 106/83 126/51 L Pulse Oximetry 96 98 Oxygen Delivery Room Air 07/11/22 08:30 Temperature 36.3 C L Pulse Rate 88 Respiratory Rate 18 Blood Pressure 122/58 L Pulse Oximetry 99 Oxygen Delivery Intake/Output Intake/Output: Intake & Output 07/08/22 07/09/22 07/10/22 07/11/22 23:59 23:59 23:59 23:59 Intake Total 2770 2280 2720 850 Output Total 4200 1900 2670 650 Balance -1430 380 50 200 Meds/Results Medications: Active Medications Generic Name Dose Route Start Last Admin Trade Name Freq PRN Reason Stop Dose Admin Amoxicillin/Clavulanate Potassium 1 tablet 07/10/22 21:00 07/11/22 09:57 Amoxicillin/Clavulanate K 875-125 Mg Tab PO 1 tablet Q12HR ROSY Administration Benzonatate 200 mg 07/02/22 16:57 07/04/22 06:54 Benzonatate 100 Mg Capsule PO 200 mg TID PRN Administration cough Bisacodyl 10 mg 07/07/22 10:55 07/08/22 08:38 Bisacodyl 10 Mg Suppository RECTAL 10 mg QAM PRN Administration Constipation Docusate Sodium 100 mg 07/10/22 21:00 07/11/22 09:57 Docusate Sodium 100 Mg Capsule PO 100 mg Q12HR ROSY Administration Ezetimibe 10 mg 07/03/22 09:00 07/04/22 10:41 Ezetimibe 10 Mg Tablet PO Not Given DAILY ROSY Enoxaparin Sodium 40 mg 07/03/22 09:00 07/11/22 09:57 Enoxaparin 40 Mg/0.4 Ml Syringe SUB-Q 40 mg DAILY ROSY Administration Fluoxetine HCl 10 mg 07/10/22 02:30 07/11/22 09:58 Fluoxetine Hcl 10 Mg Capsule PO 10 mg QAM ROSY Administration Furosemide 40 mg 07/10/22 17:00 07/11/22 09:58 Furosemide Inj 40 Mg/4 Ml Vial IV PUSH 40 mg BID ROSY Administration Gabapentin 600 mg 07/02/22 17:00 07/04/22 10:41 Gabapenti
[2022-07-11] MEDS: MELATONIN 3 MG TABLET PO (20:14)
[2022-07-12 04:00] VITALS: BP 100/52; PULSE 87; RESP 18; TEMP 37.3; O2SAT 97
[2022-07-12] MEDS: metroNIDAZOLE 250 MG TABLET 500 MG PO ×3 (05:28→21:03)
[2022-07-12] MEDS: oxyCODONE HCL (*CRX) 5 MG TAB IR PO ×2 (05:30→14:56)
[2022-07-12 06:00] LABS: Basophils Absolute Auto 0.1 K/mm3 (0.0-0.1); Basophils Percent Auto 0.4 % (0.2-1.2); Eosinophils Absolute Auto 0.3 K/mm3 (0-0.3); Eosinophils Percent Auto 2.6 % (0-4.4); Hematocrit 38.3 % (42.0-52.0); Hemoglobin 12.2 g/dL (14.0-18.0); Immature Granulocyte Absolute 0.16 K/mm3 (0.00-0.031); Immature Granulocyte Percent A 1.3 % (0-0.5); Lymphocytes Absolute Auto 0.86 K/mm3 (0.9-3.2); Lymphocytes Percent Auto 7.2 % (18.3-44.2); Mean Corpuscular HGB Conc 31.9 g/dl (32-36); Mean Corpuscular Hemoglobin 28.8 pg (26-34); Mean Corpuscular Volume 90.3 fl (80-100); Mean Platelet Volume 12.3 fl (7.4-10.4); Monocytes Absolute Auto 0.8 K/mm3 (0.1-0.6); Monocytes Percent Auto 6.7 % (2.6-8.5); Neutrophils Absolute Auto 9.7 K/mm3 (1.3-6.7); Neutrophils Percent Auto 81.8 % (45.5-73.1); Platelet Count Result 236 k/mm3 (150-375); Red Blood Count 4.24 M/mm3 (4.6-6.20); Red Cell Distribution Width 14.6 % (11.5-14.5); White Blood Count 11.9 K/mm3 (4.5-10.0)
[2022-07-12 06:21] LABS: Alanine Aminotransferase 83 U/L (6-50); Albumin Level 3.2 g/dL (3.5-5.1); Alkaline Phosphatase 152 U/L (38-126); Anion Gap 8 mmol/L (8-16); Aspartate Amino Transferase 65 U/L (17-59); Bilirubin,Total 0.6 mg/dL (0.2-1.3); Blood Urea Nitrogen 27 mg/dL (9-20); Calcium 7.9 mg/dL (8.4-10.2); Carbon Dioxide 27 mmol/L (22-30); Chloride 101 mmol/L (98-107); Estimated CRCL calculation 62 ml/min; Estimated Glomerular Filt Rate 54; Glucose 115 mg/dL (65-110); Magnesium 1.7 mg/dL (1.6-2.3); Potassium 3.8 mmol/L (3.4-5.0); Sodium 136 mmol/L (137-145)
[2022-07-12 08:00] VITALS: PULSE 84; RESP 18; O2SAT 99
[2022-07-12] MEDS: FLUoxetine HCL 10 MG CAPSULE PO (08:24)
[2022-07-12] MEDS: ENOXAPARIN 40 MG/0.4 ML SYRINGE SUB-Q (08:24)
[2022-07-12] MEDS: TAMSULOSIN HCL 0.4 MG CAPSULE PO (08:24)
[2022-07-12] MEDS: AMOXICILLIN/CLAVULANATE K 875-125 MG TAB 1 TABLET PO ×2 (08:24→21:03)
[2022-07-12] MEDS: PANTOPRAZOLE 40 MG TABLET PO (08:24)
[2022-07-12] MEDS: DOCUSATE SODIUM 100 MG CAPSULE PO ×2 (08:24→21:03)
[2022-07-12] MEDS: lisinopriL 20 MG TABLET 40 MG PO (08:25)
[2022-07-12] MEDS: FUROSEMIDE INJ 40 MG/4 ML VIAL IV PUSH ×2 (08:25→18:50)
[2022-07-12] MEDS: hydroCHLOROthiazide 25 MG TABLET PO (08:25)
[2022-07-12 08:30] VITALS: BP 128/61; PULSE 84; RESP 18; TEMP 36.4; O2SAT 99
--- NOTE | 2022-07-12 10:45 | PM.IMPN ---
Progress Note: A&P Assessment and Plan (1) Acute perforated appendicitis: Code(s): K35.32 - Acute appendicitis with perforation, localized peritonitis, and gangrene, without abscess Status: Acute Assessment and Plan: S/p laparoscopic appendectomy on 07/02 Change Zosyn to Flagyl and Augmentin Continue to trend labs Drain removed on 07/10/22 (2) Postoperative paralytic ileus: Code(s): T81.89XA - Other complications of procedures, not elsewhere classified, initial encounter; K56.0 - Paralytic ileus Status: Resolved Assessment and Plan: Postop day 10, bowel function has returned NG tube removed today and patient has been started on clear liquids Continue gentle IV fluids until better tolerating diet Tolerating diet regular diet (3) RIC (acute kidney injury): Code(s): N17.9 - Acute kidney failure, unspecified Status: Resolved Assessment and Plan: Creatinine 1.9 on admission Resolved. Creatinine back to baseline, 1.30 today (4) Sepsis: Code(s): A41.9 - Sepsis, unspecified organism Status: Acute Assessment and Plan: Secondary to acute perforated appendicitis Clinically improving Change IV antibiotics to augmentin and flagyl, (5) Bacteremia: Code(s): R78.81 - Bacteremia Status: Acute Assessment and Plan: 2/2 blood cultures with growth of Bacteroides distasonis Change zosyn to augmentin and flagyl Repeat blood cultures collected on 07/07, negative to date (6) HTN (hypertension): Code(s): I10 - Essential (primary) hypertension Status: Acute Assessment and Plan: Blood pressures improving. Last BP 132/64 Hydralazine as needed for systolic BP >165 will resume patient's p.o. lisinopril and hydrochlorothiazide Monitor BP trends Plan Notable swelling to bilateral lower extremities start IV lasix x3 doses Add kandy hose Time Spent With Patient Time: 45 minutes Time with patient: Greater than 35 minutes Subjective Date/time seen: 07/12/22 1045 Interval history: 07/12/22 1045 Patient is sitting in the chair and he is doing pretty well. He stated that he feels great and that he is happy that he gets to eat food. He did walk with a walker he still does have 4+ pitting edema bilaterally. Currently he denies any chest pain, shortness a breath, nausea, vomiting, diarrhea constipation. Currently just waiting for placement. 07/11/22 1100 Patient is sitting in the chair resting comfortably. He currently denies any chest pain, shortness a breath, nausea, vomiting, diarrhea constipation. He did state that he does not think the kandy hose are helping his legs. Legs still have 3 to 4+ pitting edema. urinary catheter is still present. He has been able to tolerate full liquids. He denies having any pain. 07/10/22 1015 patient is currently sit in the chair. Patient stated that he had just got some pain medicine so his pain was not bad. He was really excited that he got to eat today. He did state that the pain was worse due to playing in the bed. He had a little bit nauseous this last night and a little bit of anxiety however was relieve medication. Continues to have no chest pain, shortness a breath, nausea, vomiting, diarrhea constipation. Labs and vital signs remained stable at this time. Date of service: 07/09/2022 Ludin Cervantes Lynsey a 76-year-old male with history of hypertension, hyperlipidemia, chronic back pain who is seen in follow-up for acute appendicitis. He is starting to feel a bit better today. He reports several loose stools today. He still has midline abdominal pain. Also complains of back pain due to laying in bed. Denies fever, chills, dizziness, lightheadedness. He has been able to get up with assistance. Anxiety is improved today. No urinary symptoms. No issues with NG tube.
--- NOTE | 2022-07-12 10:45 | P.PNIM_ITS ---
Progress Note: A&P Assessment and Plan (1) Acute perforated appendicitis: Code(s): K35.32 - Acute appendicitis with perforation, localized peritonitis, and gangrene, without abscess Status: Acute Assessment and Plan: * S/p laparoscopic appendectomy on 07/02 * Change Zosyn to Flagyl and Augmentin * Continue to trend labs * Drain removed on 07/10/22 (2) Postoperative paralytic ileus: Code(s): T81.89XA - Other complications of procedures, not elsewhere classified, initial encounter; K56.0 - Paralytic ileus Status: Resolved Assessment and Plan: * Postop day 10, bowel function has returned * NG tube removed today and patient has been started on clear liquids * Continue gentle IV fluids until better tolerating diet * Tolerating diet * regular diet (3) RIC (acute kidney injury): Code(s): N17.9 - Acute kidney failure, unspecified Status: Resolved Assessment and Plan: * Creatinine 1.9 on admission * Resolved. Creatinine back to baseline, 1.30 today (4) Sepsis: Code(s): A41.9 - Sepsis, unspecified organism Status: Acute Assessment and Plan: * Secondary to acute perforated appendicitis * Clinically improving * Change IV antibiotics to augmentin and flagyl, (5) Bacteremia: Code(s): R78.81 - Bacteremia Status: Acute Assessment and Plan: * 2/2 blood cultures with growth of Bacteroides distasonis * Change zosyn to augmentin and flagyl * Repeat blood cultures collected on 07/07, negative to date (6) HTN (hypertension): Code(s): I10 - Essential (primary) hypertension Status: Acute Assessment and Plan: * Blood pressures improving. Last BP 132/64 * Hydralazine as needed for systolic BP >165 * will resume patient's p.o. lisinopril and hydrochlorothiazide * Monitor BP trends Plan Notable swelling to bilateral lower extremities start IV lasix x3 doses Add kandy hose Time Spent With Patient Time: 45 minutes Time with patient: Greater than 35 minutes Subjective Date/time seen: 07/12/22 1045 Interval history: 07/12/22 1045 Patient is sitting in the chair and he is doing pretty well. He stated that he feels great and that he is happy that he gets to eat food. He did walk with a walker he still does have 4+ pitting edema bilaterally. Currently he denies any chest pain, shortness a breath, nausea, vomiting, diarrhea constipation. Currently just waiting for placement. 07/11/22 1100 Patient is sitting in the chair resting comfortably. He currently denies any chest pain, shortness a breath, nausea, vomiting, diarrhea constipation. He did state that he does not think the kandy hose are helping his legs. Legs still have 3 to 4+ pitting edema. urinary catheter is still present. He has been able to tolerate full liquids. He denies having any pain. 07/10/22 1015 patient is currently sit in the chair. Patient stated that he had just got some pain medicine so his pain was not bad. He was really excited that he got to eat today. He did state that the pain was worse due to playing in the bed. He had a little bit nauseous this last night and a little bit of anxiety however was relieve medication. Continues to have no chest pain, shortness a breath, na usea, vomiting, diarrhea constipation. Labs and vital signs remained stable at this time. Date of service:
--- NOTE | 2022-07-12 11:37 | PCOTNOTE ---
Attempted to see patient this am, however first attempt, patient was with physical therapy. Second attempt, patient was on phone. Waited 5 minutes and then patient waved over. Pt wrote on paper however difficult to read, My brother. Sorry. Patient then waved goodbye and said, Thank you.
[2022-07-12 12:35] VITALS: BP 132/64; PULSE 82; RESP 18; TEMP 36.4; O2SAT 100
--- NOTE | 2022-07-12 12:36 | PM.PNGS ---
Progress Note: A&P Assessment and Plan (1) Acute perforated appendicitis: Code(s): K35.32 - Acute appendicitis with perforation, localized peritonitis, and gangrene, without abscess Status: Acute Assessment and Plan: Status post appendectomy and healing well. See Dr. Moreno in the office in about 2 weeks. Discussed patient with Kong Melissa, hospitalist. Okay to discharge to senior care today from our perspective. Patient can take his tramadol that he normally takes p.r.n. for pain. (2) Postoperative paralytic ileus: Code(s): T81.89XA - Other complications of procedures, not elsewhere classified, initial encounter; K56.0 - Paralytic ileus Status: Resolved (3) Urinary retention: Code(s): R33.9 - Retention of urine, unspecified Status: Resolved Assessment and Plan: Bowman removed yesterday and patient voiding well. Subjective Subjective Date/Time Seen: 07/12/22 12:36 Patient reports: no new complaints, feels better, voiding w/o difficulty and afebrile Review of Systems Review of Systems: All systems reviewed & are unremarkable except as noted in HPI and below (HPI and those items noted below) Constitutional: Constitutional: Denies chills and Denies fever(s) Cardiovascular: Cardiovascular: Denies chest pain, Denies diaphoresis, Denies dyspnea and Denies paroxysmal nocturnal dyspnea Respiratory: Respiratory: Denies chest congestion, Denies cough and Denies dyspnea Integumentary/Breasts: Skin/Breast: Denies lesions and Denies rash Exam Const: General: comfortable, no acute distress, alert, awake and obese Nutritional Appearance: obese and edematous Orientation/consciousness: patient oriented x3 GI: Inspection: Abdominal wall edema, incision (Healing well) and obesity GI Palp: Yes Soft to palpation and No Tenderness to palpation present (GI) Extrem: General: edema Objective Data Vital Signs Vital Signs: Vital Signs - 24 hr 07/11/22 16:00 07/11/22 19:18 07/11/22 20:00 Temperature 36.4 C 36.8 C Pulse Rate 98 99 Respiratory Rate 18 16 Blood Pressure 115/87 106/62 Pulse Oximetry 97 97 Oxygen Delivery Room Air 07/11/22 23:36 07/11/22 21:20 07/12/22 04:00 Temperature 36.9 C 37.3 C Pulse Rate 91 87 Respiratory Rate 16 18 Blood Pressure 97/41 L 100/52 L Pulse Oximetry 92 94 97 Oxygen Delivery Room Air 07/12/22 08:30 07/12/22 08:00 Temperature 36.4 C Pulse Rate 84 84 Respiratory Rate 18 18 Blood Pressure 128/61 Pulse Oximetry 99 99 Oxygen Delivery Room Air Intake/Output Intake/Output: Intake & Output 07/09/22 07/10/22 07/11/22 07/12/22 23:59 23:59 23:59 23:59 Intake Total 2280 2720 2220 900 Output Total 1900 2670 2350 125 Balance 380 50 -130 775 Meds/Results Medications: Active Medications Generic Name Dose Route Start Last Admin Trade Name Freq PRN Reason Stop Dose Admin Amoxicillin/Clavulanate Potassium 1 tablet 07/10/22 21:00 07/12/22 08:24 Amoxicillin/Clavulanate K 875-125 Mg Tab PO 1 tablet Q12HR ROSY Administration Benzonatate 200 mg 07/02/22 16:57 07/04/22 06:54 Benzonatate 100 Mg Capsule PO 200 mg TID PRN Administration cough Bisacodyl 10 mg 07/07/22 10:55 07/08/22 08:38 Bisacodyl 10 Mg Suppository RECTAL 10 mg QAM PRN Administration Constipation Docusate Sodium 100 mg 07/10/22 21:00 07/12/22 08:24 Docusate Sodium 100 Mg Capsule PO 100 mg Q12HR ROSY Administration Ezetimibe 10 mg 07/03/22 09:00 07/04/22 10:41 Ezetimibe 10 Mg Tablet PO Not Given DAILY ROSY Enoxaparin Sodium 40 mg 07/03/22 09:00 07/12/22 08:24 Enoxaparin 40 Mg/0.4 Ml Syringe SUB-Q 40 mg DAILY ROSY Administration Fluoxetine HCl 10 mg 07/10/22 02:30 07/12/22 08:24 Fluoxetine Hcl 10 Mg Capsule PO 10 mg QAM ROSY Administration Furosemide 40 mg 07/10/22 17:00 07/12/22 08:25 Furosemide Inj 40 Mg/4 Ml Vial IV PUSH 40 mg BID ROSY Administration G
[2022-07-12 16:00] VITALS: BP 124/64; PULSE 66; RESP 18; TEMP 36.4; O2SAT 100
[2022-07-12 20:00] VITALS: BP 129/56; PULSE 89; RESP 18; TEMP 36.6; O2SAT 100
[2022-07-12] MEDS: MELATONIN 3 MG TABLET PO (21:03)
[2022-07-13 05:13] VITALS: BP 109/61; PULSE 78; RESP 20; TEMP 36.4; O2SAT 94
[2022-07-13] MEDS: metroNIDAZOLE 250 MG TABLET 500 MG PO ×3 (05:28→20:42)
[2022-07-13 05:51] LABS: Basophils Percent Auto 0.3 % (0.2-1.2); Eosinophils Absolute Auto 0.4 K/mm3 (0-0.3); Hematocrit 34.1 % (42.0-52.0); Hemoglobin 10.9 g/dL (14.0-18.0); Immature Granulocyte Absolute 0.12 K/mm3 (0.00-0.031); Lymphocytes Absolute Auto 0.92 K/mm3 (0.9-3.2); Mean Corpuscular Hemoglobin 28.5 pg (26-34); Mean Platelet Volume 12.8 fl (7.4-10.4); Monocytes Absolute Auto 0.8 K/mm3 (0.1-0.6); Monocytes Percent Auto 7.3 % (2.6-8.5); Neutrophils Absolute Auto 9.2 K/mm3 (1.3-6.7); Neutrophils Percent Auto 80.4 % (45.5-73.1); Platelet Count Result 220 k/mm3 (150-375); Red Blood Count 3.83 M/mm3 (4.6-6.20); Red Cell Distribution Width 14.6 % (11.5-14.5); White Blood Count 11.5 K/mm3 (4.5-10.0)
[2022-07-13 06:07] LABS: Alanine Aminotransferase 72 U/L (6-50); Albumin Level 2.8 g/dL (3.5-5.1); Alkaline Phosphatase 134 U/L (38-126); Anion Gap 5 mmol/L (8-16); Aspartate Amino Transferase 52 U/L (17-59); Bilirubin,Total 0.5 mg/dL (0.2-1.3); Blood Urea Nitrogen 29 mg/dL (9-20); Calcium 7.7 mg/dL (8.4-10.2); Carbon Dioxide 30 mmol/L (22-30); Chloride 100 mmol/L (98-107); Estimated CRCL calculation 74 ml/min; Estimated Glomerular Filt Rate > 60; Glucose 102 mg/dL (65-110); Magnesium 1.6 mg/dL (1.6-2.3); Potassium 3.8 mmol/L (3.4-5.0); Sodium 135 mmol/L (137-145)
[2022-07-13 06:10] LABS: Transferrin 148 mg/dL (206-381)
[2022-07-13 06:19] LABS: Iron 58 ug/dL (49-181)
[2022-07-13 06:31] LABS: Percent Iron Saturation 23 % (20-50)
[2022-07-13 07:10] LABS: Folic Acid 12.2 ng/mL (2.76->20)
[2022-07-13 08:00] VITALS: PULSE 78; RESP 20; O2SAT 94
[2022-07-13] MEDS: hydroCHLOROthiazide 25 MG TABLET PO (09:03)
[2022-07-13] MEDS: DOCUSATE SODIUM 100 MG CAPSULE PO ×2 (09:03→20:42)
[2022-07-13] MEDS: PANTOPRAZOLE 40 MG TABLET PO (09:03)
[2022-07-13] MEDS: TAMSULOSIN HCL 0.4 MG CAPSULE PO (09:03)
[2022-07-13] MEDS: lisinopriL 20 MG TABLET 40 MG PO (09:03)
[2022-07-13] MEDS: ENOXAPARIN 40 MG/0.4 ML SYRINGE SUB-Q (09:03)
[2022-07-13] MEDS: FLUoxetine HCL 10 MG CAPSULE PO (09:03)
[2022-07-13] MEDS: FUROSEMIDE INJ 40 MG/4 ML VIAL IV PUSH ×2 (09:03→17:15)
[2022-07-13] MEDS: AMOXICILLIN/CLAVULANATE K 875-125 MG TAB 1 TABLET PO ×2 (09:03→20:42)
[2022-07-13] MEDS: HYDROmorphone HCL INJ (*CRX) 1 MG/ML SYR 0.5 MG IV PUSH (09:09)
[2022-07-13] MEDS: MAGNESIUM SULF 4 GM/WATER100ML 4 GM/100 ML BAG IVPB (12:02)
[2022-07-13 13:56] VITALS: BP 104/51; PULSE 89; RESP 18; TEMP 36.4; O2SAT 100
[2022-07-13] MEDS: HYDROcodone/acetaminophen (*CRX) 5-325 MG TABLET 1 TAB PO ×2 (14:33→20:42)
--- NOTE | 2022-07-13 14:39 | PCOTNOTE ---
Attempted to see patient this pm, however patient unavailable with RN at this time.
--- NOTE | 2022-07-13 14:45 | PM.IMPN ---
Progress Note: A&P Assessment and Plan (1) Acute perforated appendicitis: Code(s): K35.32 - Acute appendicitis with perforation, localized peritonitis, and gangrene, without abscess Status: Acute Assessment and Plan: S/p laparoscopic appendectomy on 07/02 Change Zosyn to Flagyl and Augmentin day 8 of antibiotics Continue to trend labs Drain removed on 07/10/22 (2) Postoperative paralytic ileus: Code(s): T81.89XA - Other complications of procedures, not elsewhere classified, initial encounter; K56.0 - Paralytic ileus Status: Resolved Assessment and Plan: Postop day 11, bowel function has returned NG tube removed today and patient has been started on clear liquids Stop IV fluids Tolerating diet regular diet (3) RIC (acute kidney injury): Code(s): N17.9 - Acute kidney failure, unspecified Status: Resolved Assessment and Plan: Creatinine 1.9 on admission Resolved. Creatinine back to baseline, 1.10 today (4) Sepsis: Code(s): A41.9 - Sepsis, unspecified organism Status: Acute Assessment and Plan: Secondary to acute perforated appendicitis Clinically improving Change IV antibiotics to augmentin and flagyl, day 8 of total antibiotics (5) Bacteremia: Code(s): R78.81 - Bacteremia Status: Acute Assessment and Plan: 2/2 blood cultures with growth of Bacteroides distasonis Change zosyn to augmentin and flagyl Repeat blood cultures collected on 07/07, negative to date (6) HTN (hypertension): Code(s): I10 - Essential (primary) hypertension Status: Acute Assessment and Plan: Blood pressures improving. Last BP 109/61 Hydralazine as needed for systolic BP >165 will resume patient's p.o. lisinopril and hydrochlorothiazide Monitor BP trends Plan Notable swelling to bilateral lower extremities start IV lasix x3 doses Add kandy hose Time Spent With Patient Time: 48 minutes Time with patient: Greater than 35 minutes Subjective Date/time seen: 07/13/221444 Interval history: 07/13/221444 Patient is sitting in the chair. Patient is complaining of neck pain today. He cannot they turn his neck from side to side. He was also curious about his gabapentin. he denies any chest pain, shortness a breath, nausea, vomiting, diarrhea constipation. He did state that he had to really good explosions. 07/12/22 1045 Patient is sitting in the chair and he is doing pretty well. He stated that he feels great and that he is happy that he gets to eat food. He did walk with a walker he still does have 4+ pitting edema bilaterally. Currently he denies any chest pain, shortness a breath, nausea, vomiting, diarrhea constipation. Currently just waiting for placement. 07/11/22 1100 Patient is sitting in the chair resting comfortably. He currently denies any chest pain, shortness a breath, nausea, vomiting, diarrhea constipation. He did state that he does not think the kandy hose are helping his legs. Legs still have 3 to 4+ pitting edema. urinary catheter is still present. He has been able to tolerate full liquids. He denies having any pain. 07/10/22 1015 patient is currently sit in the chair. Patient stated that he had just got some pain medicine so his pain was not bad. He was really excited that he got to eat today. He did state that the pain was worse due to playing in the bed. He had a little bit nauseous this last night and a little bit of anxiety however was relieve medication. Continues to have no chest pain, shortness a breath, nausea, vomiting, diarrhea constipation. Labs and vital signs remained stable at this time. Date of service: 07/09/2022 Ludin Billy Menon a 76-year-old male with history of hypertension, hyperlipidemia, chronic back pain who is seen in follow-up for acute appendicitis. He is starting to feel a bit better
--- NOTE | 2022-07-13 14:45 | P.PNIM_ITS ---
Progress Note: A&P Assessment and Plan (1) Acute perforated appendicitis: Code(s): K35.32 - Acute appendicitis with perforation, localized peritonitis, and gangrene, without abscess Status: Acute Assessment and Plan: * S/p laparoscopic appendectomy on 07/02 * Change Zosyn to Flagyl and Augmentin day 8 of antibiotics * Continue to trend labs * Drain removed on 07/10/22 (2) Postoperative paralytic ileus: Code(s): T81.89XA - Other complications of procedures, not elsewhere classified, initial encounter; K56.0 - Paralytic ileus Status: Resolved Assessment and Plan: * Postop day 11, bowel function has returned * NG tube removed today and patient has been started on clear liquids * Stop IV fluids * Tolerating diet * regular diet (3) RIC (acute kidney injury): Code(s): N17.9 - Acute kidney failure, unspecified Status: Resolved Assessment and Plan: * Creatinine 1.9 on admission * Resolved. Creatinine back to baseline, 1.10 today (4) Sepsis: Code(s): A41.9 - Sepsis, unspecified organism Status: Acute Assessment and Plan: * Secondary to acute perforated appendicitis * Clinically improving * Change IV antibiotics to augmentin and flagyl, day 8 of total antibiotics (5) Bacteremia: Code(s): R78.81 - Bacteremia Status: Acute Assessment and Plan: * 2/2 blood cultures with growth of Bacteroides distasonis * Change zosyn to augmentin and flagyl * Repeat blood cultures collected on 07/07, negative to date (6) HTN (hypertension): Code(s): I10 - Essential (primary) hypertension Status: Acute Assessment and Plan: * Blood pressures improving. Last BP 109/61 * Hydralazine as needed for systolic BP >165 * will resume patient's p.o. lisinopril and hydrochlorothiazide * Monitor BP trends Plan Notable swelling to bilateral lower extremities start IV lasix x3 doses Add kandy hose Time Spent With Patient Time: 48 minutes Time with patient: Greater than 35 minutes Subjective Date/time seen: 07/13/221444 Interval history: 07/13/221444 Patient is sitting in the chair. Patient is complaining of neck pain today. He cannot they turn his neck from side to side. He was also curious about his gabapentin. he denies any chest pain, shortness a breath, nausea, vomiting, diarrhea constipation. He did state that he had to really good explosions. 07/12/22 1045 Patient is sitting in the chair and he is doing pretty well. He stated that he feels great and that he is happy that he gets to eat food. He did walk with a walker he still does have 4+ pitting edema bilaterally. Currently he denies any chest pain, shortness a breath, nausea, vomiting, diarrhea constipation. Currently just waiting for placement. 07/11/22 1100 Patient is sitting in the chair resting comfortably. He currently denies any chest pain, shortness a breath, nausea, vomiting, diarrhea constipation. He did state that he does not think the kandy hose are helping his legs. Legs still have 3 to 4+ pitting edema. urinary catheter is still present. He has been able to tolerate full liquids. He denies having any pain. 07/10/22 1015 patient is currently sit in the chair. Patient stated that he had just got some pain medicine so his pain was not bad. He was really excited that he got to eat today. He did
--- NOTE | 2022-07-13 16:41 | PM.PNGS ---
Progress Note: A&P Assessment and Plan (1) Acute perforated appendicitis: Code(s): K35.32 - Acute appendicitis with perforation, localized peritonitis, and gangrene, without abscess Status: Resolved Assessment and Plan: Doing well. Waiting to transfer to long term [facility] (2) Postoperative paralytic ileus: Code(s): T81.89XA - Other complications of procedures, not elsewhere classified, initial encounter; K56.0 - Paralytic ileus Status: Resolved Assessment and Plan: Eating solid food and having bowel movements. Doing well (3) Lower extremity edema: Code(s): R60.0 - Localized edema Status: Acute Assessment and Plan: Patient concerned about lower extremity edema. I explained that sitting with his legs hanging down only makes this worse. Explained that he needs to be in bed with his legs elevated when he is not up walking or doing therapy. Will order this. Subjective Subjective Date/Time Seen: 07/13/22 16:41 Patient reports: no new complaints, feels better, tolerating a regular diet, bowel movement and afebrile Exam Const: General: comfortable and no acute distress Orientation/consciousness: patient oriented x3 GI: Inspection: Abdominal wall edema, incision (Dry and healing well) and obesity GI Palp: Yes Soft to palpation, No Tenderness to palpation present (GI), No Guarding due to palpation present (GI), No Hernia present, No Palpable mass present and No Rebound tenderness present Neuro: General: patient oriented x3 and no focal motor deficits Extrem: General: no calf tenderness and edema bilateral (Both lower extremities very edematous) Psych: Affect: normal affect Insight: Good insight present (Psych) Judgement: Good judgement present (Psych) Objective Data Vital Signs Vital Signs: Vital Signs - 24 hr 07/12/22 20:00 07/12/22 20:00 07/13/22 05:13 Temperature 36.6 C 36.4 C Pulse Rate 89 89 78 Respiratory Rate 18 18 20 Blood Pressure 129/56 L 109/61 Pulse Oximetry 100 100 94 Oxygen Delivery Room Air 07/13/22 08:00 07/13/22 13:56 Temperature 36.4 C Pulse Rate 78 89 Respiratory Rate 20 18 Blood Pressure 104/51 L Pulse Oximetry 94 100 Oxygen Delivery Room Air Intake/Output Intake/Output: Intake & Output 07/10/22 07/11/22 07/12/2223 23:59 23:59 23:59 23:59 Intake Total 2720 2220 1980 770 Output Total 2670 2350 875 550 Balance 50 -130 1105 220 Meds/Results Medications: Active Medications Generic Name Dose Route Start Last Admin Trade Name Freq PRN Reason Stop Dose Admin Hydrocodone Bitart/Acetaminophen 1 tab 07/13/22 13:17 07/13/22 14:33 Hydrocodone/Acetaminophen (*Crx) 5-325 Mg Tablet PO 1 tab Q6H PRN Administration Pain Rated 4-6 Amoxicillin/Clavulanate Potassium 1 tablet 07/10/22 21:00 07/13/22 09:03 Amoxicillin/Clavulanate K 875-125 Mg Tab PO 1 tablet Q12HR ROSY Administration Benzonatate 200 mg 07/02/22 16:57 07/04/22 06:54 Benzonatate 100 Mg Capsule PO 200 mg TID PRN Administration cough Bisacodyl 10 mg 07/07/22 10:55 07/08/22 08:38 Bisacodyl 10 Mg Suppository RECTAL 10 mg QAM PRN Administration Constipation Docusate Sodium 100 mg 07/10/22 21:00 07/13/22 09:03 Docusate Sodium 100 Mg Capsule PO 100 mg Q12HR ROSY Administration Ezetimibe 10 mg 07/03/22 09:00 07/04/22 10:41 Ezetimibe 10 Mg Tablet PO Not Given DAILY ROSY Enoxaparin Sodium 40 mg 07/03/22 09:00 07/13/22 09:03 Enoxaparin 40 Mg/0.4 Ml Syringe SUB-Q 40 mg DAILY ROSY Administration Fluoxetine HCl 10 mg 07/10/22 02:30 07/13/22 09:03 Fluoxetine Hcl 10 Mg Capsule PO 10 mg QAM ROSY Administration Furosemide 40 mg 07/10/22 17:00 07/13/22 09:03 Furosemide Inj 40 Mg/4 Ml Vial IV PUSH 40 mg BID ROSY Administration Gabapentin 600 mg 07/02/22 17:00 07/04/22 10:41 Gabapentin 300 Mg Capsule PO Not Given BID ROSY Hydra
[2022-07-13] MEDS: GABAPENTIN 300 MG CAPSULE 600 MG PO (17:15)
[2022-07-13 20:00] VITALS: BP 154/52; PULSE 87; RESP 16; TEMP 37.4; O2SAT 98
[2022-07-13] MEDS: MELATONIN 3 MG TABLET PO (20:42)
[2022-07-14 04:57] VITALS: BP 123/60; PULSE 69; RESP 16; TEMP 36.9; O2SAT 97
[2022-07-14] MEDS: metroNIDAZOLE 250 MG TABLET 500 MG PO (05:08)
[2022-07-14 06:04] LABS: Basophils Absolute Auto 0.1 K/mm3 (0.0-0.1); Basophils Percent Auto 0.5 % (0.2-1.2); Eosinophils Absolute Auto 0.3 K/mm3 (0-0.3); Eosinophils Percent Auto 3.3 % (0-4.4); Hematocrit 32.6 % (42.0-52.0); Hemoglobin 10.4 g/dL (14.0-18.0); Immature Platelet Fraction Pct 16.6 % (0.9-11.2); Lymphocytes Absolute Auto 0.99 K/mm3 (0.9-3.2); Lymphocytes Percent Auto 10.2 % (18.3-44.2); Mean Corpuscular HGB Conc 31.9 g/dl (32-36); Mean Corpuscular Hemoglobin 29.1 pg (26-34); Mean Corpuscular Volume 91.1 fl (80-100); Mean Platelet Volume 13.1 fl (7.4-10.4); Monocytes Absolute Auto 0.8 K/mm3 (0.1-0.6); Monocytes Percent Auto 8.4 % (2.6-8.5); Neutrophils Absolute Auto 7.4 K/mm3 (1.3-6.7); Neutrophils Percent Auto 76.6 % (45.5-73.1); Platelet Count Result 236 k/mm3 (150-375); Red Blood Count 3.58 M/mm3 (4.6-6.20); Red Cell Distribution Width 14.6 % (11.5-14.5); White Blood Count 9.7 K/mm3 (4.5-10.0)
[2022-07-14 06:10] LABS: Alanine Aminotransferase 53 U/L (6-50); Albumin Level 2.5 g/dL (3.5-5.1); Alkaline Phosphatase 107 U/L (38-126); Anion Gap 2 mmol/L (8-16); Aspartate Amino Transferase 43 U/L (17-59); Bilirubin,Total 0.4 mg/dL (0.2-1.3); Blood Urea Nitrogen 29 mg/dL (9-20); Calcium 7.7 mg/dL (8.4-10.2); Carbon Dioxide 32 mmol/L (22-30); Chloride 100 mmol/L (98-107); Estimated CRCL calculation 77 ml/min; Estimated Glomerular Filt Rate 59; Glucose 101 mg/dL (65-110); Magnesium 2.3 mg/dL (1.6-2.3); Potassium 3.6 mmol/L (3.4-5.0); Sodium 134 mmol/L (137-145)
[2022-07-14] MEDS: TAMSULOSIN HCL 0.4 MG CAPSULE PO (08:34)
[2022-07-14] MEDS: DOCUSATE SODIUM 100 MG CAPSULE PO (08:34)
[2022-07-14] MEDS: AMOXICILLIN/CLAVULANATE K 875-125 MG TAB 1 TABLET PO (08:34)
[2022-07-14] MEDS: FLUoxetine HCL 10 MG CAPSULE PO (08:34)
[2022-07-14] MEDS: GABAPENTIN 300 MG CAPSULE 600 MG PO (08:35)
[2022-07-14] MEDS: PANTOPRAZOLE 40 MG TABLET PO (08:35)
[2022-07-14] MEDS: FUROSEMIDE INJ 40 MG/4 ML VIAL IV PUSH (08:35)
[2022-07-14] MEDS: lisinopriL 20 MG TABLET 40 MG PO (08:35)
[2022-07-14] MEDS: ENOXAPARIN 40 MG/0.4 ML SYRINGE SUB-Q (08:35)
[2022-07-14] MEDS: hydroCHLOROthiazide 25 MG TABLET PO (08:35)
--- NOTE | 2022-07-14 08:43 | PCPTNOTE ---
Attempted to see patient for PT, however patient working with OT.
[2022-07-14] MEDS: HYDROcodone/acetaminophen (*CRX) 5-325 MG TABLET 1 TAB PO (10:57)
--- NOTE | 2022-07-14 11:30 | P.DS_ITS ---
DS: Admitting Diagnosis Discharge Date 07/14/22 Admitting Diagnosis Acute appendicitis DS: Discharge Diagnosis Discharge Diagnosis (1) Acute perforated appendicitis: Code(s): K35.32 - Acute appendicitis with perforation, localized peritonitis, and gangrene, without abscess Status: Resolved Assessment and Plan: * S/p laparoscopic appendectomy on 07/02 * Change Zosyn to Flagyl and Augmentin day 9 of antibiotics * Continue to trend labs * Drain removed on 07/10/22 (2) Postoperative paralytic ileus: Code(s): T81.89XA - Other complications of procedures, not elsewhere classified, initial encounter; K56.0 - Paralytic ileus Status: Resolved Assessment and Plan: * Postop day 11, bowel function has returned * NG tube removed today and patient has been started on clear liquids * Stop IV fluids * Tolerating diet * regular diet (3) RIC (acute kidney injury): Code(s): N17.9 - Acute kidney failure, unspecified Status: Resolved Assessment and Plan: * Creatinine 1.9 on admission * Resolved. Creatinine back to baseline. (4) Sepsis: Code(s): A41.9 - Sepsis, unspecified organism Status: Acute Assessment and Plan: * Secondary to acute perforated appendicitis * Clinically improving * Change IV antibiotics to augmentin and flagyl, day 8 of total antibiotics (5) Bacteremia: Code(s): R78.81 - Bacteremia Status: Acute Assessment and Plan: * 2/2 blood cultures with growth of Bacteroides distasonis * Change zosyn to augmentin and flagyl * Repeat blood cultures collected on 07/07 are negative. (6) HTN (hypertension): Code(s): I10 - Essential (primary) hypertension Status: Acute Assessment and Plan: * Blood pressures improving. Last BP 109/61 * Hydralazine as needed for systolic BP >165 * will resume patient's p.o. lisinopril and hydrochlorothiazide * Monitor BP trends Plan Notable swelling to bilateral lower extremities start IV lasix x3 doses Add kandy mills DS: Summary Hospital Course Hospital Course: This is a 76-year-old the present to the ED on 07/02/2022 with complaints of right lower quadrant abdominal pain. CT scan of his abdomen pelvis showed acute appendicitis. General surgery consulted. Patient underwent laparoscopic appendectomy on 07/02/2022. Patient's appendix was found to be perforated. White blood cell count of 17,500 on day of presentation. Patient started on IV antibiotics. Patient developed postoperative ileus and NG tube was placed to decompress his stomach. Patient's blood cultures positive for Bacteroides distasonis and repeat blood cultures were drawn. Repeat blood cultures negative. Patient's NG tube removed 07/10/2022. Patient was evaluated by PT and OT. Patient was accepted into [facility] for rehab. Patient was accepted in able to be discharged on the day of 07/14/2022. Patient completed his a ntibiotic therapy while in the hospital. He was able to tolerate his diet and by the time of discharge was on a regular diet. Patient having regular bowel movements on day of discharge as well. Patient's labs and vital signs stable and she is medically clear for discharge. Time Spent with Patient Time attestation: Total time spent providing and/or coordinating discharge services: Exam Narrative: GENERAL: Comfortable, no acute distress MARIANN
--- NOTE | 2022-07-14 11:30 | PM.DS ---
DS: Admitting Diagnosis Discharge Date 07/14/22 Admitting Diagnosis Acute appendicitis DS: Discharge Diagnosis Discharge Diagnosis (1) Acute perforated appendicitis: Code(s): K35.32 - Acute appendicitis with perforation, localized peritonitis, and gangrene, without abscess Status: Resolved Assessment and Plan: S/p laparoscopic appendectomy on 07/02 Change Zosyn to Flagyl and Augmentin day 9 of antibiotics Continue to trend labs Drain removed on 07/10/22 (2) Postoperative paralytic ileus: Code(s): T81.89XA - Other complications of procedures, not elsewhere classified, initial encounter; K56.0 - Paralytic ileus Status: Resolved Assessment and Plan: Postop day 11, bowel function has returned NG tube removed today and patient has been started on clear liquids Stop IV fluids Tolerating diet regular diet (3) RIC (acute kidney injury): Code(s): N17.9 - Acute kidney failure, unspecified Status: Resolved Assessment and Plan: Creatinine 1.9 on admission Resolved. Creatinine back to baseline. (4) Sepsis: Code(s): A41.9 - Sepsis, unspecified organism Status: Acute Assessment and Plan: Secondary to acute perforated appendicitis Clinically improving Change IV antibiotics to augmentin and flagyl, day 8 of total antibiotics (5) Bacteremia: Code(s): R78.81 - Bacteremia Status: Acute Assessment and Plan: 2/2 blood cultures with growth of Bacteroides distasonis Change zosyn to augmentin and flagyl Repeat blood cultures collected on 07/07 are negative. (6) HTN (hypertension): Code(s): I10 - Essential (primary) hypertension Status: Acute Assessment and Plan: Blood pressures improving. Last BP 109/61 Hydralazine as needed for systolic BP >165 will resume patient's p.o. lisinopril and hydrochlorothiazide Monitor BP trends Plan Notable swelling to bilateral lower extremities start IV lasix x3 doses Add kandy mills DS: Summary Hospital Course Hospital Course: This is a 76-year-old the present to the ED on 07/02/2022 with complaints of right lower quadrant abdominal pain. CT scan of his abdomen pelvis showed acute appendicitis. General surgery consulted. Patient underwent laparoscopic appendectomy on 07/02/2022. Patient's appendix was found to be perforated. White blood cell count of 17,500 on day of presentation. Patient started on IV antibiotics. Patient developed postoperative ileus and NG tube was placed to decompress his stomach. Patient's blood cultures positive for Bacteroides distasonis and repeat blood cultures were drawn. Repeat blood cultures negative. Patient's NG tube removed 07/10/2022. Patient was evaluated by PT and OT. Patient was accepted into [facility] for rehab. Patient was accepted in able to be discharged on the day of 07/14/2022. Patient completed his antibiotic therapy while in the hospital. He was able to tolerate his diet and by the time of discharge was on a regular diet. Patient having regular bowel movements on day of discharge as well. Patient's labs and vital signs stable and she is medically clear for discharge. Time Spent with Patient Time attestation: Total time spent providing and/or coordinating discharge services: Exam Narrative: GENERAL: Comfortable, no acute distress HENMT: moist mucous membranes EYES: EOM intact b/l NECK: no lymphadenopathy RESPIRATORY: clear to auscultation CARDIO: RRR GI: soft, nontender, bowel sounds present SKIN: no rashes EXTREMITIES: no edema, redness or tenderness DS: Data Data Completed and Pending Completed studies during hospitalization: Pending at discharge 07/02/22 14:25 Surgical [PTH] Routine Labs on day of discharge: Labs from last 24 hours 07/14/22 05:08 WBC 9.7 RBC 3.58 L Hgb 10.4 L Hct 32.6 L MCV 91.1 MC
[2022-07-14 14:20] LABS: EDCOVIDSCREEN Negative (Negative)
== END 2022-07-14 14:25 | DRG 853 ==
LOC: ANHED 08:08 → ANH3MEDSUR 10:57 → ANHIMU 07-03 09:01 → ANH2MED 07-07 06:26 → ANH3MEDSUR 07-15 08:49 → ANHIMU 07-15 08:49
PROVIDERS: Internal Medicine; Internal Medicine Critical Care Medicine; Nurse Practitioner; Nurse Practitioner Family; Surgery; Admitting Provider Hospitalist; Emergency Provider Emergency Medicine; PCP Family Medicine Adolescent Medicine; Visit Provider Physician Assistant
PROC: 0DTJ4ZZ Resection of Appendix, Percutaneous Endoscopic Approach (ICD-10-PCS; CPT 44970; principal; 2022-07-02 13:30)
DX: A41.59 Other Gram-negative sepsis (principal); K35.32 Acute appendicitis with perforation, localized peritonitis, and gangrene, without abscess; K56.0 Paralytic ileus; N17.9 Acute kidney failure, unspecified; T81.89XA Other complications of procedures, not elsewhere classified, initial encounter; I10 Essential (primary) hypertension; R60.9 Edema, unspecified; Z20.822 Contact with and (suspected) exposure to COVID-19; Z79.899 Other long term (current) drug therapy
CPT/HCPCS: 36415; 74176; 80048; 80053; 80069; 80076; 81001; 82607; 82728; 82746; 83540; 83550; 83605; 83690; 83735; 84100; 84466; 85025; 85027; 85055; 87040; 87076; 87185; 87426; 88304; 93005; 96361; 96365; 96375; 97110; 97116; 97161; 97165; 97530; 97535; 99285; A9270; C9113; C9803; J0131; J0330; J0360; J0690; J1100; J1170; J1650; J1940; J2060; J2270; J2370; J2405; J2543; J2704; J2710; J2765; J3010; J3475; J3480; J7030; J7040; J7120

== ENCOUNTER 2022-09-01 14:43 | Emergency (ER) | payer MEDICARE, SELFPAY ==
--- NOTE | ~2022-09-01 | XR_ITS ---
XR ankle LT min 3V DATE: 09/01/2022 15:14 INDICATION: Left ankle pain and swelling. No injury. TECHNIQUE: 4 views COMPARISON: None FINDINGS: No fracture or dislocation of the ankle or disruption of the ankle mortise. No periosteal r eaction or bone destruction. There is generalized soft tissue swelling of the ankle. IMPRESSION: Generalized soft tissue swelling of the ankle; no significant bony abnormality Reviewed, dictated and finalized at location B.
--- NOTE | 2022-09-01 14:44 | ED.LOWEXIN ---
HPI - Extremity Injury (Lower) General Chief Complaint: Extremity Injury, Lower Stated Complaint: Throbbing & Swollen left ankle Time Seen by Provider: 09/01/22 14:44 Source: patient Mode of arrival: ambulatory Limitations: no limitations History of Present Illness HPI Narrative: Ludin is a 77-year-old male patient presenting to the clinic today with complaints of left ankle swelling/pain. He reports symptoms started around 12 30 today. He reports that he does have some swelling in his left leg. Pain is to the anterior aspect of the left ankle-area of pain looks to be indented from patient's orthotic brace. No known injury Related Data Home Medications Medication Instructions Recorded Confirmed aspirin 325 mg tablet 325 mg PO DAILY PRN fever 09/13/21 09/01/22 fexofenadine 180 mg tablet 180 mg PO DAILY PRN contact 09/13/21 09/01/22 dermititis gabapentin 300 mg capsule 600 mg PO BID 12/20/21 09/01/22 bisacodyl 5 mg tablet,delayed 5 mg PO ONCE 07/30/22 09/01/22 release Allergies Allergy/AdvReac Type Severity Reaction Status Date / Time nickel Allergy Mild Other Verified 09/01/22 14:52 cephalexin AdvReac Severe Rash Verified 09/01/22 14:52 Review of Systems Review of Systems: Pertinent positives per HPI. Patient denies any fever, chills, rash, headache, visual changes, dizziness, cough, runny nose, sore throat, shortness of breath, chest pain, palpitations, nausea, vomiting, diarrhea, constipation, abdominal pain, or any urinary issues. [facility] Past Medical History Medical History Acute right hip pain Arthritis Colon polyps HTN (hypertension) Hypercholesterolemia Low Back Pain Lumbar stenosis Piriformis syndrome Trochanteric bursitis, right hip Umbilical hernia Surgical History Surgical History H/O Spinal surgery (1984) H/O umbilical hernia repair (2011) History of appendectomy (06/2022) Perforated appemdix Hx of tonsillectomy Family History Family History Father Acute myocardial infarction Heart disease Alzheimer disease Mother Acute myocardial infarction Heart disease Alzheimer disease Social History Social History Smoking status: Never smoker Second hand tobacco smoke exposure: Yes Alcohol intake: never Alcohol use details: Occasional Substance use: never Substance use type: does not use Lack of Transportation: No Lack of Food: Never True Current Housing: I Have Housing Concerned About Future Housing: No Difficulty Paying Gas/Electric Bills: No Difficulty Paying for Meds: No Currently Unemployed: No Education: Master's Degree or Higher Difficulty w/ Childcare or Family Care: No Living arrangements: with family Occupation/Education: retired Gender identity (if verbalized by the patient): Male Spiritual care concerns: No Agree to blood products: Yes Comments At the time of my signature, I reviewed and agree with the nursing past medical, surgical, social, and family history. There is no relevant family history pertinent to the patient complaint. Exam Narrative: General: Well-developed, well nourished, in no apparent distress Head: Normocephalic, atraumatic. Cardio: Regular rate and rhythm, s1 and s2 normal, no murmur appreciated. Resp: Clear to auscultation bilaterally, no rhonchi, rales, wheezing or rubs. Musculoskeletal: No deformity, tender to palpation to the anterior lateral left ankle, grossly normal range of motion, muscle strength strong and equal, peripheral pulse strong, 2+ edema bilaterally left greater than right, no cyanosis, walking with a wheeled walker Course Course Emergency Course: Portions of this record may have been created with voice recognition softwareTangela Dye
[2022-09-01 14:53] VITALS: BP 140/87; PULSE 83; RESP 16; TEMP 36.8; O2SAT 99
== END 2022-09-01 15:41 | disposition home or self-care (01) ==
PROVIDERS: Emergency Provider Nurse Practitioner Family; PCP Family Medicine Adolescent Medicine
DX: R60.0 Localized edema (principal); M25.572 Pain in left ankle and joints of left foot; M19.90 Unspecified osteoarthritis, unspecified site; I10 Essential (primary) hypertension; E78.00 Pure hypercholesterolemia, unspecified; M48.061 Spinal stenosis, lumbar region without neurogenic claudication
CPT/HCPCS: 73610; 99213; G0463

== ENCOUNTER 2022-11-18 14:12 | Outpatient (CLI) | payer MEDICARE, SELFPAY ==
--- NOTE | ~2022-11-18 | US_ITS ---
US art doppler w press LE BI INDICATION: Abnormal peripheral circulation TECHNIQUE: Segmental pressures and plethysmographic and Doppler waveforms of the brachial and lower e xtremity arteries were obtained. COMPARISON: None. FINDINGS: Right and left brachial artery pressures of 125 mm Hg and 1:15 mm Hg, respectively, are concordant (n ormal difference <= 30 mmHg). There is bilateral multiphasic flow of the lower extremity arteries. The right ankle-brachial index (PAULINO) is 1.06 (normal >= 0.9-1.0). The right great toe-brachial index (TBI) is 0.52 (normal >= 0.60). The left PAULINO is 1.22. The left TBI is 0.31. IMPRESSION: 1. Normal bilateral ankle-brachial indices. 2: Diminished bilateral toe brachial indices consistent with peripheral arterial disease. Reviewed, dictated and finalized at location B. IMPRESSION: 1. Normal bilateral ankle-brachial indices. 2: Diminished bilateral toe brachial indices consistent with peripheral arteri al disease.
== END 2022-11-18 14:13 | disposition home or self-care (01) ==
LOC: ANHIMG 14:12
PROVIDERS: PCP Family Medicine Adolescent Medicine; Visit Provider Family Medicine Adolescent Medicine
DX: I73.9 Peripheral vascular disease, unspecified (principal)
CPT/HCPCS: 93923

== ENCOUNTER 2024-04-22 17:06 | Inpatient (IN) | payer MEDICARE, SELFPAY ==
[2024-04-22] VITALS (28 sets, daily range): BP systolic 62–156; BP diastolic 40–90; PULSE 79–117; RESP 16–26; TEMP 36.4–37; O2SAT 90–100; BMI 35.2
--- NOTE | ~2024-04-22 | XR_ITS ---
EXAMINATION: XR chest PICC line DATE: 05/04/2024 14:01 INDICATION: Central line placement. TECHNIQUE: A single frontal view of the chest was obtained. COMPARISON: Chest single view 05/01/2024 FINDINGS: There are airspace opacities in left lower lung zone. No pleural effusion or pneumothorax. The heart size is normal. A left upper extremity peripherally inserted central venous catheter (PICC) is seen with tip in the proximal right atrium. A right internal jugular central venous catheter is s een with tip in the superior vena cava. IMPRESSION: 1. PICC tip in the right atrium. 2. Airspace opacities in left lower lung zone with slight improvement, consistent with atelectasis ve rsus pneumonia. Reviewed, dictated and finalized at location A. IMPRESSION: 1. PICC tip in the right atrium. 2. Airspace opacities in left lower lung zone with slight improvement, consiste nt with atelectasis versus pneumonia.
--- NOTE | ~2024-04-22 | XR_ITS ---
EXAMINATION: XR UGI water soluble wo kub DATE: 05/09/2024 09:30 INDICATION: Gastric ulcer status post Clarence patch. TECHNIQUE: A single contrast was injected into the gastrostomy tube. Fluoroscopy of the stomach and p roximal small bowel was performed. Fluoroscopy exposure time was minutes. The total number of images was 19. Total dose-area product was 11.072 Gy-cm^2. COMPARISON: CT 05/08/2024, upper gastrointestinal series 04/28/2024 FINDINGS: There is an ulcer of the antrum of the stomach. There is contrast in a 6 x 3 cm area outsid e the expected ellison of the stomach. IMPRESSION: 1. Ulcer of the gastric antrum with contained extraluminal contrast similar to 04/28/2024. The extralu morgan contrast distribution is worse than typically seen after Clarence patch repair. Reviewed, dictated and finalized at location A. IMPRESSION: 1. Ulcer of the gastric antrum with contained extraluminal contrast similar to 04/28/2024. The extraluminal contrast distribution is worse than typically seen after Clarence patch repair.
--- NOTE | ~2024-04-22 | MR_ITS ---
EXAMINATION: MR lumbar spine wo/w con DATE: 05/26/2024 17:09 INDICATION: Sepsis. Assess for osteomyelitis. TECHNIQUE: Magnetic resonance imaging (MRI) of the lumbar spine was performed without and with 20 mL ProHance intravenous contrast. Sequences included sagittal T2-weighted FSE, sagittal T2-weighted FS F SE, and sagittal and axial T1-weighted FSE. Postcontrast sequences included axial T2-weighted FSE, sa gittal T1-weighted FSE, and axial and sagittal T1-weighted FS FSE. COMPARISON: None FINDINGS: 18 degrees lumbar dextroscoliosis. 2 mm retrolisthesis L3 on L4. L5 is fused to S1 with 3 mm retrolis thesis. Remaining vertebral body heights are normal. There is severe left-sided predominant disc heig ht loss at T12-L1 through L3-L4. Mild to moderate right-sided predominant disc height loss at L4-L5. There are annular fissures at each of these levels. There is increased T2 signal at the L1-L2 through L4-L5 disc spaces which appear to correspond in location and is likely related to vacuum phenomena e vident on the prior CT. There is however incompletely visualized large multiloculated peripherally en hancing fluid collection extending craniocaudally along the right psoas muscle for which differential would include abscess and therefore could not exclude associated discitis at these levels. Of the pr oximity is relatively close, definitive extension to the disc spaces is not identified There is howev er also peripheral increased T1 signal on noncontrast consistent with blood which would favor psoas m uscle hematoma. This could be secondarily superinfected. There is minimal enhancement along the right side of the endplates at L3-L4 and L4-L5 which does elevate suspicion for discitis and could not exc lude associated early osteomyelitis. There is however no appreciable marrow edema or loss of T1 marro w fat signal to more specifically suggest osteomyelitis. The conus medullaris terminates at L1. There is normal signal in the caudal spinal cord. The following disc levels are specifically discussed: T12-L1: Disc is bulging. There is moderate bilateral facet joint osteoarthritis. There is moderate bi lateral neural foraminal stenosis. There is moderate central canal stenosis. L1-L2: Disc is bulging. There is moderate bilateral facet joint osteoarthritis. There is mild to mode rate bilateral neural foraminal stenosis. There is mild central canal stenosis. L2-L3: Disc is bulging. There is severe bilateral facet joint osteoarthritis. There is moderate left and mild to moderate right neural foraminal stenosis. There is moderate central canal stenosis. L3-L4: Disc is bulging. There is severe bilateral facet joint osteoarthritis. There is moderate to se kika bilateral neural foraminal stenosis. There is severe central canal stenosis. L4-L5: Disc is mildly bulging. There is severe bilateral facet joint osteoarthritis. There is moderat e to severe right and moderate left neural foraminal stenosis. There is severe central canal stenosis . L5-S1: Disc space is fused with prominent left-sided predominant posterior endplate osteophytes. Ther e is severe bilateral facet joint osteoarthritis. Posterior decompression with left-sided hemilaminot rodrigue. There is mild right and moderate left neural foraminal stenosis. There is mild central canal maria c nosis. IMPRESSION: 1. Severe lumbar spondylosis with prominent increased disc signal at L1-L2 through L4-L5. Increased f luid signal is likely artifact of feculent phenomena which is seen at the same levels on locations on the prior CT although could not absent exclude discitis given the presence of a nearby complex locul ated right psoas muscle fluid collection with increased T1 signal suggesting this is due to hematoma although this could potentially be secondarily infected. Bone marrow signal remains normal with no me asurable enhancement along the endplates but no appreciable edema to more specifically elevated olu rn for discitis or osteomyelitis. Would consider percutaneous abscess drainage with Gram stain and cu lture of the right psoas fluid collection. Findings were discussed with Dashawn Stevens, the nurse car ing for the patient, at 6:18 PM. Reviewed, dictated and finalized at location A. IMPRESSION: 1. Severe lumbar spondylosis with prominent increased disc signal at L1-L2 thro ugh L4-L5. Increased fluid signal is likely artifact of feculent phenomena whic h is seen at the same levels on locations on the prior CT although could not ab sent exclude discitis given the presence of a nearby complex loculated right ps oas muscle fluid collection with increased T1 signal suggesting this is due to hematoma although this could potentially be secondarily infected. Bone marrow s ignal remains normal with no measurable enhancement along the endplates but no appreciable edema to more specifically elevated concern for discitis or osteomy elitis. Would consider percutaneous abscess drainage with Gram stain and cultur e of the right psoas fluid collection. Findings were discussed with Dashawn hubbard, the nurse caring for the patient, at 6:18 PM.
--- NOTE | ~2024-04-22 | CT_ITS ---
EXAMINATION: CTA LE LT DATE: 05/02/2024 16:33 INDICATION: Assess left lower limb ischemia with mild left foot TECHNIQUE: Computed tomographic angiography (CTA) of the left hemipelvis and left lower extremity was performed with 100 mL Omnipaque 350 intravenous contrast. Imaging begins at the level of the aortic bifurcation and extends through the left foot. The dose-length product was 1426.81 mGy-cm. COMPARISON: None. FINDINGS: Small amount of atherosclerotic plaque without hemodynamically significant stenosis at the aortic bif urcation and along the left common and internal iliac arteries. No evident atherosclerotic plaque sherwin ng the left external iliac, common femoral and deep (profunda) femoral arteries. Small amount of nonh emodynamically significant atherosclerotic plaque at the distal left superficial femoral and poplitea l arteries. There are scattered nonhemodynamically significant atherosclerotic plaque along the left tibioperoneal trunk and the anterior tibial, posterior tibial and peroneal arteries. The left peronea l anterior tibial arteries becomes atretic in the distal calf with minimal contrast seen in the anter ior tibial artery in the region of the distal most tibia with no discernible contrast evident in the dorsalis pedis artery. There is runoff below the ankle in the left posterior tibial artery. Gas and a Bowman catheter within the decompressed bladder. Moderate-sized fat-containing left inguinal hernia w hich extends to the base of the scrotum. No pathologically enlarged left pelvic or inguinal lymphaden opathy. IMPRESSION: 1. Scattered atherosclerotic plaque in the arteries of the left lower limb as detailed above without a discrete hemodynamic significant stenosis. Runoff below the ankle in the left posterior tibial art sandip this supplies the foot. Atretic distal peroneal and anterior tibial arteries with intraluminal co ntrast becoming indiscernible at the level of the ankle and with no appreciable contrast in the dorsa lis pedis artery. Reviewed, dictated and finalized at location B. IMPRESSION: 1. Scattered atherosclerotic plaque in the arteries of the left lower limb as detailed above without a discrete hemodynamic significant stenosis. Runoff belo w the ankle in the left posterior tibial artery this supplies the foot. Atretic distal peroneal and anterior tibial arteries with intraluminal contrast becomi ng indiscernible at the level of the ankle and with no appreciable contrast in the dorsalis pedis artery.
--- NOTE | ~2024-04-22 | CT_ITS ---
EXAMINATION: CT abdomen wo con DATE: 05/03/2024 10:38 INDICATION: Stomach perforation. TECHNIQUE: Computed tomography (CT) of the abdomen was performed without intravenous contrast after i njection of contrast into the gastrostomy tube. Automated exposure control and iterative reconstructi on technique were employed. The dose-length product was 1693.34 mGy-cm. COMPARISON: CT 04/22/2024, upper gastrointestinal series 04/28/2024 FINDINGS: The visualized portions of lung bases demonstrate small pleural effusions and mild atelecta sis. The heart size is normal. No pericardial effusion. The liver is normal. There is contrast in the gallbladder, which is normal in size. The spleen, pancreas, and adrenal glands are normal. There is cortical thinning in this kidneys. There are cysts in the kidneys measuring up to 22 mm on the left. There are no dilated loops of bowel. There is free intraperitoneal gas, consistent with recent surger y. Two surgical drains are noted. There is a gastrostomy tube in expected position. There is wall thi ckening of the gastric antrum. There is leakage of contrast from the posterior aspect of the gastric antrum where the mucosal defect measures 8 x 17 mm. There are no pathologically enlarged lymph nodes. There is a small volume of perihepatic ascites. There is severe lumbar spondylosis. IMPRESSION: 1. Perforation of the posterior aspect of the gastric antrum with extraluminal leakage of contrast. 2. Small volume of ascites. 3. Small pleural effusions. Reviewed, dictated and finalized at location A.
--- NOTE | ~2024-04-22 | CT_ITS ---
CLINICAL INDICATION: COMPARISON: . TECHNIQUE: Multiple contiguous axial images of the abdomen were performed without the administration of intravenous contrast. Water soluble contrast was given through the gastrostomy tube. The dose-length product (DLP) was 2083.75 mGy-cm. Automated exposure control and iterative reconstruction technique were employed. FINDINGS/OBSERVATIONS: Visualized lower thorax: Redemonstration of small bilateral pleural effusions (left greater than right) with adjacent consolid ation in the left lung base. The heart is of normal size, without pericardial effusion. Within the abdomen: Redemonstration of the gastrostomy tube opacifying the stomach with oral contrast. As best visualized on sagittal view the air opacified tract extending from the posterior superior mar gin of the stomach is again visualized, partially filled with oral contrast, but appears to occlude a fter the first (approximately) 3 cm. After the initial 3 cm, there is still a collection present, but without contrast within the cavity. This cavity measures 2.6 x 2.0 x 2.0 cm, and contains only air. Perhaps dedicated imaging of the bulb on the left side of the patient may be performed (not included on either the images this morning or the CT examination performed at 2:24 PM) to ascertain the presence of contrast evacuated by the drain . Remainder of the examination is otherwise unchanged. IMPRESSION: Redemonstration of a tract extending from the posterior superior margin of the antrum of the stomach only partially filled with oral contrast, perhaps demonstrating early healing. Reviewed, dictated and finalized at location A. IMPRESSION: Redemonstration of a tract extending from the posterior superior margin of the antrum of the stomach only partially filled with oral contrast, perhaps demonst rating early healing.
--- NOTE | ~2024-04-22 | CT_ITS ---
CLINICAL INDICATION: Leukocytosis and fever with a history of perforated gastric ulcer COMPARISON: CT examination of the abdomen and pelvis dated 05/03/2024. Reference is also made to a jamia in film evaluation of the chest performed 2 hours earlier on the same day. TECHNIQUE: Multiple contiguous axial images of the chest, abdomen and pelvis were performed without t he administration of intravenous contrast The dose-length product (DLP) was 1875.87 mGy-cm. Automated exposure control and iterative reconstruction technique were employed. FINDINGS/OBSERVATIONS: LUNG: Bilateral pleural effusions, increased from previous examination with adjacent consolidation, l eft greater than right. The bilateral upper lobes are clear. MEDIASTINUM: Limited evaluation without intravenous contrast. HEART: The heart is borderline enlarged, without pericardial effusion. SOFT TISSUES OF THE CHEST: Unremarkable. WITHIN THE ABDOMEN: Redemonstration of a percutaneous gastrostomy catheter with contrast in the endometrium good position . Air is identified with surrounding the catheter balloon within the stomach, not unexpected. Redemonstration of punctate foci of air along the undersurface of the anterior abdomen, to the left o f midline, decreased from prior study. The lack of enteric contrast limits evaluation of the presence or absence of a definitive continued l eak. However, within the upper abdomen (axial series images 99 through 119) anterior and caudal to the gre ater curvature of the stomach, and medial to the gastrostomy catheter is a focal collection of fluid and air which leads posteriorly and into the lumen of the stomach. This is best identified on sagitta l series, beginning with image 103, and extending through image 91. Right-sided drainage catheter is identified in excellent position, along the lesser curvature of the stomach - query the quality of the contents currently draining. Residual oral contrast within the distal colon. Left-sided drainage catheter is also identified. Remainder of examination is otherwise unchanged from prior. IMPRESSION: Findings suggesting air and possible fluid extending from the lumen of the antrum of the stomach, wit h a small anterior collection, as detailed above. Repeat evaluation with Gastrografin via the gastrostomy would provide additional information. Reviewed, dictated and finalized at location A. IMPRESSION: Findings suggesting air and possible fluid extending from the lumen of the antr um of the stomach, with a small anterior collection, as detailed above. Repeat evaluation with Gastrografin via the gastrostomy would provide additiona l information.
--- NOTE | ~2024-04-22 | XR_ITS ---
MODIFIED ESOPHAGRAM HISTORY: Aspiration. Swallow evaluation. TECHNIQUE: Modified barium esophagram was performed on 05/30/2024. I administered fluoroscopy and perf ormed the exam with speech pathologist. Patient was seated for lateral fluoroscopic imaging for arleth stion of thin liquids, pudding, solids and quantified amounts, followed by thin liquids in uncontroll ed amounts. This was recorded on tape. A single fluoroscopic spot image was also recorded. The DAP fo r this procedure was 1.786 Gycm2. The amount of fluoroscopy time used during this procedure was 2.2 m inutes. FINDINGS: Oral stage: Reduced lingual movement with premature spillage with thin liquids. Pharyngeal stage: Reduced laryngeal elevation and tongue base retraction. There is vallecular and pir iform sinus residue. There is laryngeal penetration with silent aspiration.. Cervical/esophageal stage: Adequate function. IMPRESSION: Oropharyngeal dysphagia with laryngeal penetration and silent aspiration. Please correla te with speech pathologist findings and specific feeding recommendations. Reviewed, dictated and finalized at location A. IMPRESSION: Oropharyngeal dysphagia with laryngeal penetration and silent aspir ation. Please correlate with speech pathologist findings and specific feeding recommendations.
--- NOTE | ~2024-04-22 | XR_ITS ---
EXAMINATION: XR chest 1V portable Exam Date/Time: 05/29/2024 16:05 CDT HISTORY: cough Comparison: 05/23/2024. RESULT: Lines, tubes, and devices: None. Lungs and pleura: Mild diffuse reticular opacities, with cephalization and indistinct vascular sonam ns. Segmental left and subsegmental right basilar airspace disease. Mild bilateral costophrenic angle blunting. Cardiomediastinal silhouette: Stable. Other: No acute osseous or upper abdominal finding. IMPRESSION: Mild pulmonary edema. Segmental left and subsegmental right basilar atelectasis/consolidation. Possible small bilateral pleural effusions. Reviewed, dictated and finalized at location K.
--- NOTE | ~2024-04-22 | CT_ITS ---
Non-contrast CT scan of the Abdomen and Pelvis Clinical indication: Status post perforated gastric ulcer repair Technique: 2.5 mm axial scans were obtained through the abdomen and pelvis without intravenous or or al contrast. Dose reduction technique was used on this scan by utilizing automated exposure control a nd iterative reconstruction technique. The dose-length product (DLP) was 3066.93 mGy-cm. COMPARISON: 05/09/2024 Findings: Images through the lung bases reveal small bilateral pleural effusions with mild bibasilar atelectatic change. There is no evidence of renal or ureteral calculi. The kidneys and the ureters are nondilated. The liver, spleen, pancreas, gallbladder, and adrenals appear normal. There are atherosclerotic calci fications of the aorta. No bowel obstruction. No extraluminal oral contrast present. There is wall thickening gastric antrum and proximal duodenum compatible with recent surgery/ulcer repair. Questionable small abscess or trac t extending from the gastric antrum superiorly, similar to prior exam, but no extraluminal oral contr ast is seen. 2 percutaneous drainage catheters are present in the right upper quadrant. There is righ t upper quadrant haziness and mesenteric edema, likely postoperative in nature. There is asymmetric enlargement of the right iliopsoas and psoas major muscles, compatible with intra muscular hematoma, with additional irregular hematoma extending to the posterior right retroperitoneu m.. Images through the pelvis were performed. Urinary bladder unremarkable, with Bowman catheter in place. No pelvic mass evident. Bilateral fat-containing inguinal hernias are present. Impression: Persistent wall thickening of the gastric antrum/duodenum with surrounding haziness, compatible posto perative change. There is persistent irregular tract with small amount of fluid and external air exte nding from the gastric antrum superiorly/anteriorly, which could reflect abscess or persistent contai sally perforation. No extraluminal contrast seen, and no oral contrast seen within this collection. Intramuscular hematoma of the right iliopsoas and psoas major muscles, with additional irregular frank ghazala extending to the posterior right retroperitoneum. Bilateral fat-containing inguinal hernias. Small bilateral pleural effusions. Reviewed, dictated and finalized at location M. Impression: Persistent wall thickening of the gastric antrum/duodenum with surrounding hazi ness, compatible postoperative change. There is persistent irregular tract with small amount of fluid and external air extending from the gastric antrum super iorly/anteriorly, which could reflect abscess or persistent contained perforati on. No extraluminal contrast seen, and no oral contrast seen within this collec tion. Intramuscular hematoma of the right iliopsoas and psoas major muscles, with add itional irregular hematoma extending to the posterior right retroperitoneum. Bilateral fat-containing inguinal hernias. Small bilateral pleural effusions.
--- NOTE | ~2024-04-22 | XR_ITS ---
XR chest 1V portable Ordering provider: Zully Redman APRN History: 78 years Male with . Pleural effusion . Comparison: May 14, 2024 FINDINGS: MEDIASTINUM: The cardiac silhouette is slightly enlarged. Left PICC line with the tip overlying superior vena cava. Congestive kristian. LUNGS: No effusions or pneumothorax. Minimal opacification in the left lung base is seen which may in dicate atelectasis versus pneumonia. Clinical correlation advised. OTHER: No free air under the diaphragm. Degenerative the spine. IMPRESSION: Left basilar atelectasis versus pneumonia. Clinical correlation advised. Reviewed, dictated and finalized at location A.
--- NOTE | ~2024-04-22 | XR_ITS ---
Portable chest x-ray Comparison: 04/25/2024 Clinical History: Respiratory failure Findings: Right IJ line remains in place. Small bilateral pleural effusions are present. There is mi ld pulmonary edema pattern and bibasilar atelectasis. Cardiomediastinal silhouette is stable. Bones and soft tissues are unremarkable. Impression: Mild pulmonary edema pattern and bibasilar atelectasis with small bilateral pleural effusions, left g reater than right. Right IJ line. Reviewed, dictated and finalized at location . Impression: Mild pulmonary edema pattern and bibasilar atelectasis with small bilateral ple ural effusions, left greater than right. Right IJ line.
--- NOTE | ~2024-04-22 | XR_ITS ---
XR chest port-a-cath/central Ordering provider: Demarcus Moreno MD History: 78 years Male with . ET tube and central line placement . Comparison: None. FINDINGS: MEDIASTINUM: The cardiac silhouette is slightly enlarged. Right central line with the tip overlying t he superior vena cava. Endotracheal tube with the tip above the lisa by about 2.8 cm. LUNGS: No pneumothorax. Opacification in the right lung base is seen suggestive of atelectasis versus pneumonia. Interstitial thickening in the left lung base. Minimal right pleural effusion. OTHER: No free air under the diaphragm. Degenerative changes of the spine. IMPRESSION: Right basilar atelectasis versus pneumonia. Interstitial thickening in the left lung base. Reviewed, dictated and finalized at location A.
--- NOTE | ~2024-04-22 | MR_ITS ---
EXAMINATION: MR thoracic spine wo/w con DATE: 05/26/2024 17:09 INDICATION: Sepsis. Assess for osteomyelitis. TECHNIQUE: Magnetic resonance imaging (MRI) of the thoracic spine was performed . without and with 20 mL ProHance intravenous contrast. Sagittal localizer T1-weighted FSE of the cervicothoracic spine wa s obtained. Sequences included sagittal T2-weighted FSE, sagittal T2-weighted FS FSE, sagittal T1-davion ghted FSE and axial T1-weighted SE. Postcontrast sequences included axial T2-weighted FSE, sagittal T 1-weighted FS FSE, and axial T1-weighted FS SE. COMPARISON: CT dated 05/22/2024 FINDINGS: Alignment is normal. Vertebral body heights are normal. Small Schmorl's nodes along the endplates in the mid to lower thoracic spine. Normal marrow signal. No marrow edema, loss of T1 fat signal or enha ncement to suggest osteomyelitis. Severe disc height loss at T12-L1 and L1-L2. Moderate disc height l oss at T3-T4, T6-T7, T8-T9 and T9-T10. Mild disc height loss at T2-T3, T5-T6 and and T7-T8. No abnorm al disc enhancement to suggest discitis. Right paracentral disc osteophyte complex at T10-T11 which r esults in mild central canal stenosis and indents the right ventral surface of cord.There is multilev el moderate to severe thoracic facet osteoarthritis. This contributes to additional mild central elizabeth l stenosis at T11-T12. There is also bilateral mild multilevel thoracic neural foraminal stenosis. Th ere is normal spinal cord signal. No abnormally enhancing lesions in the spine. There are small bilat eral pleural effusions with consolidation in the dependent lower lobes which could represent atelecta sis or pneumonia. IMPRESSION: 1. Moderate thoracic spondylosis with no evident discitis or ostomy myelitis. 2. Small bilateral pleural effusions with dependent atelectasis versus pneumonia in the bilateral low er lobes. Reviewed, dictated and finalized at location A. IMPRESSION: 1. Moderate thoracic spondylosis with no evident discitis or ostomy myelitis. 2. Small bilateral pleural effusions with dependent atelectasis versus pneumoni a in the bilateral lower lobes.
--- NOTE | ~2024-04-22 | XR_ITS ---
MODIFIED ESOPHAGRAM HISTORY: Assess for aspiration TECHNIQUE: Modified barium esophagram was performed on 05/26/2024. I administered fluoroscopy and perf ormed the exam with speech pathologist. Patient was seated for lateral fluoroscopic imaging for arleth stion of thin liquids, pudding, solids and quantified amounts, followed by thin liquids in uncontroll ed amounts. This was recorded on tape. A single fluoroscopic spot image was also recorded. The DAP fo r this procedure was 2.8 Gycm2. The amount of fluoroscopy time used during this procedure was 2.3 min utes. FINDINGS: Oral stage: There is reduced lingual movement. The dose is uncontrolled with anterior loss and premat ure spillage into the pharynx. Pharyngeal stage: Reduced laryngeal elevation and adduction. Reduced tongue base retraction. Reduced pharyngeal squeeze. There is vallecular and piriform sinus residue. Recurrent laryngeal penetration a nd aspiration. Cervical/esophageal stage: Adequate function. IMPRESSION: Oropharyngeal dysphagia with recurrent laryngeal penetration and aspiration. Please jonathan elate with speech pathologist findings and specific feeding recommendations. Reviewed, dictated and finalized at location A. IMPRESSION: Oropharyngeal dysphagia with recurrent laryngeal penetration and as piration. Please correlate with speech pathologist findings and specific feedi ng recommendations.
--- NOTE | ~2024-04-22 | XR_ITS ---
Portable chest x-ray Comparison: 04/22/2024 Clinical History: Respiratory failure Findings: Endotracheal tube and right IJ line are in place. There is small right pleural effusion an d probable right basilar atelectasis. Left lung essentially clear. Cardiomediastinal silhouette is s table. Bones and soft tissues are unremarkable. Impression: Small right pleural effusion with probable right basilar atelectasis. Correlate clinically for pneumo suzie. Support tubes, as above. Reviewed, dictated and finalized at location . Impression: Small right pleural effusion with probable right basilar atelectasis. Correlate clinically for pneumonia. Support tubes, as above.
--- NOTE | ~2024-04-22 | MR_ITS ---
EXAMINATION: MR cervical spine wo/w con DATE: 05/26/2024 17:09 INDICATION: Sepsis. Assess for osteomyelitis TECHNIQUE: Magnetic resonance imaging (MRI) of the cervical spine was performed without and with 20 m L ProHance intravenous contrast. Sequences included axial PD-weighted FSE, sagittal T1-weighted SE, s agittal PD-weighted FS FSE, axial T1-weighted SE, coronal PD-weighted FS FSE, coronal T1-weighted SE, axial T1-weighted FS SE. Postcontrast sequences included axial T1-weighted FS SE, sagittal T1-wegiht ed FS SE, and sagittal STIR FSE. OMPARISON: None FINDINGS: Reversal of the normal cervical lordosis. Vertebral body heights are normal. Bone marrow signal int ensity is normal with no marrow edema, loss of marrow fat signal or enhancement to suggest osteomyeli tis or other pathologic marrow replacing process.. Severe disc height loss at C5-C6 and C6-C7, modera te disc height loss at C4-C5 and mild disc height loss at C3-C4. No abnormal disc signal or enhanceme nt to suggest discitis. There are disc bulges contributing to mild central canal stenosis at C4-C5, C 5-C6 and C6-C7. There is multilevel severe uncovertebral and facet osteoarthritis. There is moderate to severe neural foraminal stenosis on the right at C5-6 and bilaterally at C6-C7 and moderate neural foraminal stenosis on the right at C2-C3 and bilaterally at C3-C4, C4-C5 and on the left at C5-C6. Cord signal intensity is normal. No abnormally enhancing lesions in the spine. There is prominent prevertebral soft tissue swelling with edema. There is a 1.7 x 1.3 x 0.4 cm small loculated fluid collection is slightly to the right midline in the retropharyngeal soft tissues anter ior to the base of the dens for which differential would include a small abscess. IMPRESSION: 1. Prevertebral/retropharyngeal soft tissue swelling anterior to the mid to upper cervical spine with peripheral enhancing fluid collection potentially a small abscess just right of midline at the level of the base of the dens. Findings were discussed with Dashawn Stevens, the nurse caring for the patie nt, at 6:18 PM. 2. Severe cervical spondylosis with no evident discitis or osteomyelitis. Reviewed, dictated and finalized at location A. IMPRESSION: 1. Prevertebral/retropharyngeal soft tissue swelling anterior to the mid to upp er cervical spine with peripheral enhancing fluid collection potentially a smal l abscess just right of midline at the level of the base of the dens. Findings were discussed with Dashawn Stevens, the nurse caring for the patient, at 6:18 P M. 2. Severe cervical spondylosis with no evident discitis or osteomyelitis.
--- NOTE | ~2024-04-22 | CT_ITS ---
EXAMINATION: CT chest abdomen pelvis wo con DATE: 05/22/2024 10:23 INDICATION: persistent bacteremia . TECHNIQUE: Computed tomography (CT) of the chest, abdomen, and pelvis was performed without intraveno us contrast. Automated exposure control and iterative reconstruction technique were employed. The dos e-length product was 1966.53 mGy-cm. COMPARISON: 05/08/2024; CT abdomen and pelvis 05/17/2024; CT abdomen 05/09/2024 and 05/03/2024 FINDINGS: CHEST: Exam limited by beam hardening from arm down positioning. Thoracic aorta: No significant dilation. No dissection. Lung parenchyma and airways: Bibasilar segmental consolidation. Scattered nodular opacities in the pe ripheral right upper lobe and right middle lobe, not seen in the prior study of 05/08/2024, rapid onse t favors infectious inflammatory process. Thoracic inlet, axillae and chest wall: No thyroid or soft tissue mass. No axillary lymphadenopathy. Left upper extremity PICC, terminating at the cavoatrial junction Mediastinum: Enlarged mediastinal lymph nodes. Dilated central pulmonary arteries as can be seen with pulmonary hypertension. Heart and pericardium: Cardiomegaly. Small volume pericardial fluid collection. Coronary artery calcifications: 2. Pleura: Small simple bilateral pleural fluid collections. Thoracic bones: No acute osseous finding. ABDOMEN/PELVIS: Liver: Normal. Biliary/Gallbladder: Gallbladder is normal. No bile duct dilation. Pancreas: No mass or duct dilation. Spleen: Normal. Adrenals:No mass. Kidneys: No suspicious mass, obstructing stone, or hydronephrosis. Simple left renal cyst. GI tract: No small or large bowel dilation. Normal appendix. Diverticulosis without diverticulitis. G -tube, in good position. Mesentery/Peritoneum: Persistent peritoneal gas collection anterior to the stomach secondary to antra l perforation, with small adjacent collection or tract. Perihepatic, gallbladder fossa, bilateral par acolic gutter and right psoas fluid of intermediate density. Retroperitoneum: No mass Atherosclerotic calcifications of intra-abdominal arterial vessels. Pelvis: Pelvic organs are within normal limits Soft Tissues: Significant body wall edema. Uncomplicated appearing bilateral fat-containing inguinal hernias. Interval removal of the upper abdominal drains. Abdominopelvic bones: No acute osseous finding in the abdomen/pelvis. Multilevel severe central elizabeth l stenosis in the lumbar spine secondary to degenerative changes. IMPRESSION: Nodular opacities in the right upper lobe and right middle lobe, likely representing small infectious /inflammatory foci. Segmental bibasilar atelectasis/consolidation. Small bilateral simple pleural effusions. Cardiomegaly with trace pericardial fluid. Peritoneal gas anterior to the stomach secondary to antral perforation, with possible small adjacent abscess or fistulous tract. Nonfluid density peritoneal and psoas collections, may represent complex ascites from bowel content, blood, or phlegmon, or combination thereof. Significant body wall edema. Reviewed, dictated and finalized at location K. IMPRESSION: Nodular opacities in the right upper lobe and right middle lobe, likely represe nting small infectious/inflammatory foci. Segmental bibasilar atelectasis/consolidation. Small bilateral simple pleural effusions. Cardiomegaly with trace pericardial fluid. Peritoneal gas anterior to the stomach secondary to antral perforation, with po ssible small adjacent abscess or fistulous tract. Nonfluid density peritoneal and psoas collections, may represent complex ascite s from bowel content, blood, or phlegmon, or combination thereof. Significant body wall edema.
--- NOTE | ~2024-04-22 | US_ITS ---
US renal BI Ordering provider: Jonathan Felix MD History: . elevated creatinine . Comparison: None. Technique: Ultrasound bilateral kidneys. Findings: RIGHT KIDNEY: Measures 11.6x 6.2x 5.8 cm in length which is normal in size. No renal cysts. No renal mass or visualized echogenic stones. Otherwise, normal echotexture and contour. No hydronephrosis. No rmal renal cortical thickness. LEFT KIDNEY: Measures 12.5x 6.5x 5.9 cm in length which is normal in size. Simple cyst is seen in the superior pole measuring 2.1 x 1.7 x 1.9 cm. no renal mass or visualized echogenic stones. Otherwise, normal echotexture and contour. No hydronephrosis. Normal renal cortical thickness. BLADDER: Not evaluated. Bowman's catheter is noted. IMPRESSION: Simple cyst in the left kidney upper pole. Other appearances are unremarkable. Reviewed, dictated and finalized at location A.
--- NOTE | ~2024-04-22 | XR_ITS ---
XR chest 1V portable Ordering provider: Eric Mancera APRN History: 78 years Male with . tachypnea; abdominal breathing . Comparison: May 17, 2024 FINDINGS: MEDIASTINUM: The cardiac silhouette is slightly enlarged. Congestive kristian. Left PICC line with the ti p overlying superior vena cava. LUNGS: No effusions or pneumothorax. Left basilar atelectasis versus pneumonia medially. Prominent markings bilaterally. Bilateral interst itial thickening. OTHER: No free air under the diaphragm. IMPRESSION: Left basilar atelectasis versus pneumonia. Cardiomegaly with congestive kristian and interstitial thickening which may indicate cardiac decompensati on and pulmonary edema. Clinical correlation advised. Pneumonitis is not excluded. Reviewed, dictated and finalized at location A. IMPRESSION: Left basilar atelectasis versus pneumonia. Cardiomegaly with congestive kristian and interstitial thickening which may indicat e cardiac decompensation and pulmonary edema. Clinical correlation advised. Pne umonitis is not excluded.
--- NOTE | ~2024-04-22 | XR_ITS ---
XR chest 1V portable Ordering provider: Irma Reynoso DO History: 78 years Male with . Respiratory failure intubated . Comparison: April 23, 2024 at 5:29 AM FINDINGS: MEDIASTINUM: The cardiac silhouette is slightly enlarged. Endotracheal tube is seen with the tip abov e the lisa by about 3.7 cm. Right central line with the tip overlying superior vena cava. Slightly prominent kristian. LUNGS: No pneumothorax. Right basilar atelectasis versus pneumonia with possible effusion is noted. B ilateral interstitial changes which may indicate pneumonitis versus edema. OTHER: No free air under the diaphragm. Degenerative changes of the spine. IMPRESSION: Right basilar atelectasis versus pneumonia with minimal effusion. Bilateral interstitial changes which may indicate pneumonitis versus pulmonary edema. Clinical correl ation advised. No significant change from previous examination. Reviewed, dictated and finalized at location A. IMPRESSION: Right basilar atelectasis versus pneumonia with minimal effusion. Bilateral interstitial changes which may indicate pneumonitis versus pulmonary edema. Clinical correlation advised. No significant change from previous examin ation.
--- NOTE | ~2024-04-22 | XR_ITS ---
EXAMINATION: XR hand RT 2V DATE: 05/23/2024 11:54 INDICATION: Right wrist pain TECHNIQUE: Posteroanterior, oblique and lateral views of the right hand were obtained. COMPARISON: None. FINDINGS: 1 cm ulnar minus variance. Widening of the scapholunate interval. There is disruption of the proximal carpal row with the lunate remaining in relatively normal alignment with respect to the head of the distal ulna but well proximal to the level of the distal articular surface of the radius. The scaphoi d remains in relatively normal alignment with respect to the distal radius. There is severe osteoarth ritis at the distal radioulnar, wrist, triscaphe and first carpal metacarpal joints. There are promin ent subarticular lucencies with sclerotic margins most likely degenerative subchondral cysts or diffe rential includes chronic erosions. These are seen at the distal radius and ulna, the capitate and bas e of the first metacarpal with additional smaller lucencies at a few additional carpal bones. Mild po lyarticular osteoarthritis at multiple metacarpophalangeal and interphalangeal joints. Prominent soft tissue swelling about the hand and wrist. IMPRESSION: 1. No acute fracture. 2. Likely chronic malalignment at the wrist and carpus including 1 cm ulnar minus variance and disrup tion of the proximal carpal row which is most likely sequela of old trauma. 3. 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 4. Multiple subarticular lucencies at the wrist and carpus most likely degenerative subchondral cyst although differential includes chronic erosion such as in the setting of gout. Reviewed, dictated and finalized at location A. IMPRESSION: 1. No acute fracture. 2. Likely chronic malalignment at the wrist and carpus including 1 cm ulnar min us variance and disruption of the proximal carpal row which is most likely sequ bee of old trauma. 3. 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 4. Multiple subarticular lucencies at the wrist and carpus most likely degenera tive subchondral cyst although differential includes chronic erosion such as in the setting of gout.
--- NOTE | ~2024-04-22 | XR_ITS ---
EXAMINATION: XR UGI water soluble wo kub DATE: 04/28/2024 15:51 INDICATION: Assess for gastric leak post perforated gastric ulcer repair TECHNIQUE: 100 mL of water-soluble oral contrast was injected through the patient's percutaneous brandon rostomy tube. A total of 23 fluoroscopic images and 3 overhead radiographs of the stomach and proxima l small bowel were obtained. Fluoroscopy exposure time was 2.2 minutes. Total DAP was 52.2 Gycm^2 COMPARISON: None. FINDINGS: General Assistant images demonstrate couple surgical drains as well as midline skin tono projecting over the u pper abdomen. Subsequent images demonstrate contrast injected through the percutaneous gastrostomy tu be outlining the bulb of the tube which is positioned in the mid body of the stomach. Contrast progre sses without evident obstruction to the normal-appearing proximal small bowel. There is appears to be a contained extraluminal leak of contrast at the gastric antrum with contrast projecting beyond the expected mucosal margins of the stomach and with irregular margins to the contrast. Findings were dis cussed with the calcified mass with at 4:55 PM. The configuration of the contrast suggests that is li alena locally confined by recorded omental patch. IMPRESSION: 1. Likely locally contained exophytic mucosal leakage of contrast at the gastric antrum at the site o f a reported repair ulcer. The irregular margins and absence of more diffuse distribution of the cont rast with no contrast extending along the adjacent drainage catheters suggests that this likely remai ns confined by a reported omental patch. Definitive determination is required would consider repeat c ontrast contrast injection into the gastrostomy tube with subsequent CT imaging. Reviewed, dictated and finalized at location A. IMPRESSION: 1. Likely locally contained exophytic mucosal leakage of contrast at the gastri c antrum at the site of a reported repair ulcer. The irregular margins and abse nce of more diffuse distribution of the contrast with no contrast extending sherwin ng the adjacent drainage catheters suggests that this likely remains confined b y a reported omental patch. Definitive determination is required would consider repeat contrast contrast injection into the gastrostomy tube with subsequent C T imaging.
--- NOTE | ~2024-04-22 | XR_ITS ---
CHEST RADIOGRAPH CLINICAL HISTORY: increase WBC, fever . COMPARISON: 05/04/2024 TECHNIQUE: Single portable view of the chest. FINDINGS Left upper extremity PICC line with its tip projecting over the right atrium. The remainder of the cardiomediastinal silhouette is otherwise unremarkable. Interval development of air bronchograms within the right mid to lower lung field, for which an early infiltrate is suspected. The remainder of the lungs are clear. IMPRESSION: Early infiltrate suspected within the right mid to lower lung field, as detailed above. Reviewed, dictated and finalized at location A. IMPRESSION: Early infiltrate suspected within the right mid to lower lung field, as detaile d above.
--- NOTE | ~2024-04-22 | XR_ITS ---
Portable chest x-ray Comparison: 04/24/2024 Clinical History: Respiratory failure Findings: Endotracheal tube and right IJ line are in place. There is central congestive change with mild bibasilar pulmonary edema and right basilar atelectasis. Cardiomediastinal silhouette is stable . Bones and soft tissues are unremarkable. Impression: Pulmonary edema pattern with central congestive change and right basilar atelectasis. Support tubes, as above. Reviewed, dictated and finalized at location . Impression: Pulmonary edema pattern with central congestive change and right basilar atelec tasis. Support tubes, as above.
--- NOTE | ~2024-04-22 | XR_ITS ---
EXAMINATION: XR chest 2V Exam Date/Time: 05/14/2024 14:00 CDT HISTORY: sob Comparison: X-ray chest and CT cap 05/08/2024. RESULT: Lines, tubes, and devices: Left upper extremity PICC terminating in the right atrium. Lungs and pleura: Indistinct and somewhat prominent appearing pulmonary vessels. Mild patchy subsegm ental bibasilar opacities. Bilateral costophrenic angle blunting. Cardiomediastinal silhouette: Stable. Other: No acute osseous or upper abdominal finding. IMPRESSION: Subsegmental bibasilar atelectasis/consolidation. Mild pulmonary congestion/interstitial edema. Small bilateral pleural effusions Reviewed, dictated and finalized at location K. IMPRESSION: Subsegmental bibasilar atelectasis/consolidation. Mild pulmonary congestion/int erstitial edema. Small bilateral pleural effusions
--- NOTE | ~2024-04-22 | CT_ITS ---
EXAMINATION: CTA chest abdomen pelvis DATE: 04/22/2024 18:10 CDT INDICATION: Flank pain with abdominal distention, and now with hypotension. TECHNIQUE: Computed tomographic angiography (CTA) of the chest was performed, along with multiple con tiguous axial images of the abdomen and pelvis with 100 mL Omnipaque-350 intravenous contrast. The do se-length product was 1486.30 mGy-cm. Maximum intensity projection 3D-reconstructions of the aorta an d other arteries were constructed by the technologist on a separate workstation. FINDINGS/OBSERVATIONS: PULMONARY ARTERIES: No filling defect is identified within the main or proximal pulmonary artery. The main pulmonary artery is not enlarged. THORACIC AORTA: No aneurysmal dilatation or dissection is present. The great vessels are intact LUNGS: Small bilateral pleural effusions, right greater than left with adjacent compressive atelectas is. MEDIASTINUM: No morphologically suspicious or pathologically enlarged lymph nodes are identified with in the mediastinum or bilateral axilla. BONES OF THE CHEST: No acute fracture. No significant degenerative disease. No lytic or blastic lesions. HEART: The heart is enlarged, without pericardial effusion. LIVER: The liver is decreased in attenuation and increased in size measuring 20 cm in longitudinal dimension . Perihepatic fluid is also noted. GALLBLADDER AND BILIARY SYSTEM: The gallbladder is distended, and otherwise unremarkable. PANCREAS: The pancreas enhances homogeneously without ductal dilatation. SPLEEN: The spleen enhances homogeneously and is not enlarged measuring 10 cm in longitudinal dimension. KIDNEYS: The bilateral kidneys enhance symmetrically without hydronephrosis or renal calculi. ADRENAL GLANDS: Unremarkable. GASTROINTESTINAL TRACT: Extraperitoneal air is identified within the abdomen for which viscus perforation is suspected. Significant mural thickening is identified within the distal stomach with surrounding punctate foci o f air for which the source of viscus perforation is suspected. A large amount of intraperitoneal, extra luminal air and fluid are present. No retroperitoneal air or fluid are noted. No air or fluid within the lesser sac. APPENDIX: Surgically absent. VASCULATURE: Unremarkable. No aneurysmal dilatation or significant stenosis. LYMPH NODES: No pathologically enlarged or morphologically suspicious lymph nodes within the retroperitoneum or at the root of the mesentery. PELVIC STRUCTURES: The bladder is minimally distended, and otherwise unremarkable. The prostate gland is not enlarged, but contains bulky calcifications. BODY WALL AND MUSCULOSKELETAL: Small fat-containing umbilical hernia. Significant degenerative disease is identified with osteophyte formation, disc space narrowing, endpl ate changes and vacuum phenomena. Facet arthropathy is also noted. IMPRESSION: Perforated viscus with a large amount of free air and fluid, with mural thickening in the distal stom ach and multiple punctate foci of extraluminal air in this area for which site of perforation is susp ected. Reviewed, dictated and finalized at location A. IMPRESSION: Perforated viscus with a large amount of free air and fluid, with mural thicken ing in the distal stomach and multiple punctate foci of extraluminal air in thi s area for which site of perforation is suspected.
--- NOTE | ~2024-04-22 | CT_ITS ---
EXAMINATION: CT guide absc cath placement DATE: 05/27/2024 16:46 INDICATION: Right psoas fluid collection TECHNIQUE: A time-out was performed to verify the patient's name, date of , and procedure to b e performed. The patient was confirmed to be receiving appropriate antibiotic coverage. The skin ove rlying the right lumbar paraspinal region was prepped and draped in usual sterile fashion. Anestheti c was administered with 1% lidocaine subcutaneously. Conscious sedation was provided with 50 mcg fent anyl. Utilizing CT guidance and 18-gauge trochar needle was inserted into the complex right psoas flu id collection. A J-wire was advanced to the needle with position confirmed by CT. Utilizing Seldinger technique the needle was removed over the wire and the tracks related dilated to 12 Vietnamese. A 12 Nixon nch catheter was then inserted over the wire and the loop formed and locked with position confirmed b y CT. The metal stiffener and the wire were removed and the catheter was stitched to the skin with plascencia ture. Antibiotic ointment and a sterile dressing were applied. An additional adhesive fixation device was applied. There is brisk drainage of dark maroon-colored fluid from the catheter and catheter tra ct during the procedure. 5 mL of dark maroon-colored fluid was aspirated and sent to the lab for Gram stain and cultures. The catheter was then attached to suction drainage. There were no immediate comp lications. The dose-length product was 605.56 mGy-cm. FINDINGS: CT images demonstrate the catheter within the right psoas fluid collection. 5 mL fluid was aspirated for testing. IMPRESSION: 1. Successful CT-guided right psoas muscle fluid collection drainage catheter placement. 2. 5 mL fluid was sent for aerobic and anaerobic cultures. 3. The catheter will be managed by Dr. Aguiar. Reviewed, dictated and finalized at location A. IMPRESSION: 1. Successful CT-guided right psoas muscle fluid collection drainage catheter p lacement. 2. 5 mL fluid was sent for aerobic and anaerobic cultures. 3. The catheter will be managed by Dr. Aguiar.
--- NOTE | ~2024-04-22 | XR_ITS ---
XR chest 1V portable Ordering provider: Cachorro Dick MD History: 78 years Male with . sob . Comparison: April 26, 2024 FINDINGS: MEDIASTINUM: The cardiac silhouette is slightly enlarged. Right central line with the tip overlying s uperior vena cava. Congestive kristian. LUNGS: No pneumothorax. Opacification in the lung bases suggestive of atelectasis versus pneumonia wi th possible effusion. Underlying pulmonary edema is not excluded. OTHER: No free air under the diaphragm. Degenerative changes of the spine. IMPRESSION: Bilateral basal atelectasis versus pneumonia with possible effusion. Underlying pulmonary edema is no t excluded. Reviewed, dictated and finalized at location A. IMPRESSION: Bilateral basal atelectasis versus pneumonia with possible effusion. Underlying pulmonary edema is not excluded.
--- NOTE | ~2024-04-22 | XR_ITS ---
CHEST RADIOGRAPH CLINICAL HISTORY: shortness of breath, wheezing . COMPARISON: 04/28/2024 TECHNIQUE: Single portable view of the chest. FINDINGS Redemonstration of a right internal jugular central venous catheter, with its tip injecting over the cavoatrial junction. The remainder of the cardiomediastinal silhouette is otherwise unremarkable. Improved right-sided ple ural effusion with interval increase in the left-sided pleural effusion, demonstrated on previous exa mination. Increased interstitial markings are identified bilaterally, findings suggesting moderate pulmonary va scular congestion. The lungs are otherwise clear. IMPRESSION: Interval increase in the left-sided pleural effusion with moderate pulmonary vascular congestion, as detailed above. Reviewed, dictated and finalized at location A. IMPRESSION: Interval increase in the left-sided pleural effusion with moderate pulmonary va scular congestion, as detailed above.
--- OUTSIDE RECORDS SUMMARY | 2024-04-22 17:01 | XMS_ITS | Continuity of Care Document ---
Author Organization [facility] - Main Address [address] [address] Insurance Providers Payer Plan Claims Address Claims Phone Policy Number Group Number Relation Employer Guarantor Name Guarantor Guarantor Address Guarantor Phone [facility] [id number] Self Ludin Oconnorbyron [address] [place] [id number] [facility] [id number] Self Ludin Lynsey [address] [place] [id number] Problems Condition ICD9 code ICD10 code SNOMED code Start Date End Date S tatus Anemia, unspecified D64.9 Impaired fasting glucose R73.01 Results No Results Allergies, adverse reactions, alerts No known allergies and adverse reactions Medications No administered medications reported Vital Signs No vital signs reported Social History No smoking Hx information available
[2024-04-22] MEDS: NOREPINEPHRINE 8 MG/D5W 250 ML 8 MG/250 ML BAG 9.38 MG IV CONT (17:32)
[2024-04-22] MEDS: SODIUM CHLORIDE 0.9% IV 2,000 ML 999 ML (17:35)
[2024-04-22] MEDS: SODIUM CHLORIDE 0.9% IV 1,000 ML 999 ML IV CONT (17:40)
[2024-04-22 17:50] LABS: Hematocrit 46.1 % (42.0-52.0); Hemoglobin 14.7 g/dL (14.0-18.0); Mean Corpuscular HGB Conc 31.9 g/dl (32-36); Mean Corpuscular Hemoglobin 29.6 pg (26-34); Mean Corpuscular Volume 92.8 fl (80-100); Mean Platelet Volume 12.4 fl (7.4-10.4); Platelet Count Result 335 k/mm3 (150-375); Red Blood Count 4.97 M/mm3 (4.6-6.20); Red Cell Distribution Width 13.7 % (11.5-14.5); White Blood Count 8.6 K/mm3 (4.5-10.0)
[2024-04-22 18:02] LABS: Estimated CRCL calculation 17 ml/min; Estimated Glomerular Filt Rate 13
[2024-04-22 18:03] LABS: INR 1.3; Prothrombin Time 16.9 Seconds (11.1-14.7)
[2024-04-22 18:04] LABS: Partial Thromboplastin Time 30.7 Seconds (22.3-36.8)
[2024-04-22] MEDS: TUBING, BLOOD SET 1 EACH XX ×2 (18:10)
[2024-04-22] MEDS: CEFEPIME 2 GM/NS 50 ML 2 GM/50 ML BAG IVPB (18:10)
[2024-04-22 18:14] LABS: Lactic Acid Reflex 5.4 mmol/L (0.7-2.0)
[2024-04-22 18:15] LABS: Alanine Aminotransferase 27 U/L (6-50); Albumin Level 3.8 g/dL (3.5-5.1); Alkaline Phosphatase 99 U/L (38-126); Anion Gap 17 mmol/L (4-12); Aspartate Amino Transferase 35 U/L (17-59); Bilirubin,Total 1.4 mg/dL (0.2-1.3); Blood Urea Nitrogen 67 mg/dL (9-20); Calcium 9.4 mg/dL (8.4-10.2); Carbon Dioxide 21 mmol/L (22-30); Chloride 99 mmol/L (98-107); Estimated CRCL calculation 18 ml/min; Estimated Glomerular Filt Rate 14; Glucose 112 mg/dL (65-110); Potassium 6.3 mmol/L (3.4-5.0); Sodium 137 mmol/L (137-145)
[2024-04-22] MEDS: SODIUM CHLORIDE 0.9% IV 250 ML 30 ML IV CONT (18:15)
[2024-04-22 18:18] LABS: Band Neutrophils Percent 60 % (0-6); Lymphocytes Absolute Manual 1.03 K/mm3 (1.1-4.5); Metamyelocytes Percent 3 %; Monocytes Absolute Manual 0.17 K/mm3 (0.1-0.90); Monocytes Percent Manual 2 % (3-9); Neutrophils Absolute Manual 7.13 K/mm3 (1.3-6.7); Neutrophils Percent Manual 23 % (46-73); Total Cells Counted 100
[2024-04-22 18:19] LABS: Platelet Estimate Adequate (Adequate); Schistocytes None Seen
[2024-04-22] MEDS: fentaNYL CITRATE INJ (*CRX) 100 MCG/2 ML VIAL (18:19)
[2024-04-22 18:22] LABS: Hypochromasia 1+
--- NOTE | 2024-04-22 18:25 | ED.ABDPAIN ---
HPI - Abdominal Pain General Chief Complaint: Abdominal Pain Stated Complaint: Abdominal Pain Time Seen by Provider: 04/22/24 17:20 History of Present Illness HPI narrative: 78-year-old male with a past medical history including hypertension, hyperlipidemia previous perforated appendicitis 2 years prior repaired by general surgeon Dr. Moreno your patient presents to the emergency department today with concerns of abdominal pain that started 3 hours prior to arrival. He states he had cramping abdominal pain and then slowly had abdominal distension. On initial presentation he is hypotensive, tachycardic, diaphoretic. Placed in the room 22 for medical resuscitation and evaluation. He is complaining of cramping right-sided flank and abdominal pain that started generalized aching with abdominal distension. No chest pain shortness a breath. No nausea or vomiting. No diarrhea. Normal bowel movement yesterday. Did not receive pain medicines prior to arrival. Normal vital signs any EMS with rapid decline upon presentation to the ER. Related Data Home Medications ?Medication ?Instructions ?Recorded ?Confirmed ?Last Taken ?Type aspirin 325 mg tablet 325 mg PO DAILY PRN fever 09/13/21 07/23/23 Unknown History fexofenadine 180 mg tablet 180 mg PO DAILY PRN contact 09/13/21 07/23/23 Unknown History dermititis gabapentin 300 mg capsule 600 mg PO BID 12/20/21 07/23/23 Unknown History hydrochlorothiazide 25 mg tablet See Rx Instructions .Route 07/23/23 07/23/23 Unknown History .COMPLEX PRN Allergies Allergy/AdvReac Type Severity Reaction Status Date / Time nickel Allergy Mild Other Verified 12/01/23 15:22 cephalexin AdvReac Severe Rash Verified 12/01/23 15:22 Review of Systems Review of Systems: As reviewed above in HPI [facility] Past Medical History Medical History PAD (peripheral artery disease) Acute perforated appendicitis RIC (acute kidney injury) Piriformis syndrome Trochanteric bursitis, right hip Lumbar stenosis Low Back Pain Arthritis Colon polyps Umbilical hernia HTN (hypertension) Hypercholesterolemia Surgical History Surgical History History of appendectomy (06/2022) Perforated appemdix H/O Spinal surgery (1984) H/O umbilical hernia repair (2011) Hx of tonsillectomy Family History Family History Father Acute myocardial infarction Heart disease Alzheimer disease Mother Acute myocardial infarction Heart disease Alzheimer disease Social History Social History Smoking status: Never smoker Second hand tobacco smoke exposure: Yes Alcohol intake: never Alcohol use details: Occasional Substance use: never Substance use type: does not use Lack of Transportation: No Lack of Food: Never True Current Housing: I Have Housing Concerned About Future Housing: No Difficulty Paying Gas/Electric Bills: No Difficulty Paying for Meds: No Currently Unemployed: No Education: Master's Degree or Higher Difficulty w/ Childcare or Family Care: No Living arrangements: with family Occupation/Education: retired Gender identity (if verbalized by the patient): Male Spiritual care concerns: No Agree to blood products: Yes Exam Narrative: GENERAL: In extremis, hypotensive, tachypneic, tachycardic, hypoxic. Diaphoretic HEAD: [Normocephalic, atraumatic.] EYES: Pale conjunctiva, pupils equal reactive to light, extraocular movements are full ENT: Nares clear, no rhinorrhea or epistaxis. Mucous membranes moist. NECK: Supple. CHEST: Labored breathing with respiratory distress, mild, tachypneic at 26 HEART: Tachycardic rate, regular rhythm. No murmur heard. [Normal peripheral pulses.] ABDOMEN: Massive abdominal distention with tenderness to palpation globally, right-sided flank ecchymoses, left-sided flank ecchymoses, mottling of the skin dependently, no rigidity, subjective guarding in the right-sided flank EXTREMITIES: Normal range of motion. [No edema.] SKIN: Cool and clammy extremities, NEURO: [No focal deficits]. Alert and oriented [x3.] PSYCH: [Normal mood and affect.] Course Vital Signs Vital signs: Vital Signs Temperature 36.4 C 04/22/24 17:16 Pulse Rate 98 04/22/24 17:16 Respiratory Rate 26 H 04/22/24 17:16 Blood Pressure 62/53 L 04/22/24 17:16 Pulse Oximetry 90 04/22/24 17:16 Oxygen Delivery Nasal Cannula 04/22/24 17:16 Oxygen Flow Rate 3 04/22/24 17:16 Temperature 36.5 C 04/22/24 18:14 Pulse Rate 112 H 04/22/24 18:14 Respiratory Rate 20 04/22/24 18:14 Blood Pressure 156/71 H 04/22/24 18:14 Pulse Oximetry 98 04/22/24 18:14 Oxygen Delivery Nasal Cannula 04/22/24 17:16 Oxygen Flow Rate 3 04/22/24 17:16 MDM - Abdominal Pain MDM Narrative Medical decision making narrative: 78-year-old male with history of perforated appendicitis 2 years ago, hypertension, hyperlipidemia. Presents today in extremis with hypotension, tachycardia, tachypnea and distension of the abdomen rapidly developing during presentation to the ER. Concern presently is for ruptured abdominal viscus, hemoperitoneum, aortic dissection, aortic rupture, sepsis, bladder rupture, small-bowel obstruction. Bedside echocardiogram and bedside fast examination shows diffuse free fluid and contents with air and his abdomen. No pericardial effusion, hyperdynamic ejection fraction consistent with tachycardia secondary to potentially ruptured viscus or organ in his abdomen. Patient was transfused 2 units packed red blood cells for potential hemorrhagic shock, 2 units of crystalloid given with moderate improvement, norepinephrine start peripherally at 5 micrograms/minute. CT angiography of the chest abdomen pelvis was ordered upon stabilization of the vitals. I followed the patient to the CT scanner and independently reviewed the films in real-time with suspected perforated viscus with intra-abdominal free fluid and air. Call general surgeon Dr. Moreno with concerns of needing emergent exploratory laparotomy. OR was made aware. Patient's laboratory studies started to return. No significant anemia, hemoglobin 14.7, no leukocytosis. Normal platelet count. Is a potassium 6.3, anion gap secondary to lactic acid of 5.4, acute renal failure with a creatinine of 4.15, BUN was 67. Likely dehydration and volume depletion. Glucose normal 112. LFTs within normal limits. CT angiography report per radiology shows perforated viscus was large amount of free fluid and air with mural thickening of distal stomach with suspected duodenal rupture versus duodenal ulcer perforation after discussion over the phone. Patient is made aware of the CT scan results and surgeon present at bedside. Going to operating room for ex lap. Spoke to the cage loader and the hospitalist who agreed to accept him to the ICU after the procedure. Patient presently does not have central access but if he still has pressor requirements after OR, this will be placed upstairs. Patient and family consented to procedure and patient left the emergency department at this time. Medical Records Attestation: I reviewed the patient's medical records. Lab Data Attestation: I reviewed the patient's lab results. 04/22/24 17:42 04/22/24 17:44 Labs: Lab Results 04/22/24 04/22/24 Range/Units 17:42 17:44 WBC 8.6 (4.5-10.0) K/mm3 RBC 4.97 (4.6-6.20) M/mm3 Hgb 14.7 D (14.0-18.0) g/dL Hct 46.1 (42.0-52.0) % MCV 92.8 (80-100) fl MCH 29.6 (26-34) pg MCHC 31.9 L (32-36) g/dl RDW 13.7 (11.5-14.5) % Plt Count 335 (150-375) k/mm3 MPV 12.4 H (7.4-10.4) fl Immature Gran % (Auto) Not Reportable Neut % (Auto) Not Reportable Lymph % (Auto) Not Reportable Harris % (Auto) Not Reportable Eos % (Auto) Not Reportable Baso % (Auto) Not Reportable Lymph # (Auto) Not Reportable Harris # (Auto) Not Reportable Eos # (Auto) Not Reportable Baso # (Auto) Not Reportable Abs Immat Gran (auto) Not Reportable Absolute Neuts (auto) Not Reportable Absolute Nucleated RBC Not Reportable Total Counted 100 Neutrophils % (Manual) 23 L (46-73) % Band Neutrophils % 60 H (0-6) % Lymphocytes % (Manual) 12.0 L (18-44) % Monocytes % (Manual) 2 L (3-9) % Metamyelocytes % 3 % Nucleated RBC % Not Reportable Abs Neuts (Manual) 7.13 H (1.3-6.7) K/mm3 Abs Lymphs (Manual) 1.03 L (1.1-4.5) K/mm3 Abs Monocytes (Manual) 0.17 (0.1-0.90) K/mm3 Platelet Estimate Adequate (Adequate) Hypochromasia 1+ Schistocytes None seen PT 16.9 H (11.1-14.7) Seconds INR 1.3 APTT 30.7 (22.3-36.8) Seconds Sodium 137 (137-145) mmol/L Potassium 6.3 H* (3.4-5.0) mmol/L Chloride 99 (98-107) mmol/L Carbon Dioxide 21 L (22-30) mmol/L Anion Gap 17 H (4-12) mmol/L BUN 67 H D (9-20) mg/dL Creatinine 4.15 H 4.40 H (0.7-1.3) mg/dL Estim Creat Clear Calc 18 17 ml/min Estimated GFR 14 L 13 L (59 - ) Glucose 112 H (65-110) mg/dL Lactic Acid 5.4 H* (0.7-2.0) mmol/L Calcium 9.4 (8.4-10.2) mg/dL Total Bilirubin 1.4 H (0.2-1.3) mg/dL AST 35 (17-59) U/L ALT 27 (6-50) U/L Alkaline Phosphatase 99 (38-126) U/L Total Protein 7.0 (6.3-8.2) g/dL Albumin 3.8 (3.5-5.1) g/dL Blood Type A Positive Antibody Screen Pending Crossmatch See Detail Imaging Data Attestation: I personally reviewed and interpreted this imaging study as follows: My impression: Perforated viscus with large amounts of free fluid and air, potential hemoperitoneum. Radiologist's impression: ITS Impressions Chest/Abdomen/Pelvis CTA 04/22/24 18:10 IMPRESSION: Perforated viscus with a large amount of free air and fluid, with mural thickening in the distal stomach and multiple punctate foci of extraluminal air in this area for which site of perforation is suspected. Critical Care Time Critical Care Time Critical Care Time: Yes Total Critical Care Time: 60 Discharge Plan Discharge Clinical Impression: Perforated abdominal viscus, Shock circulatory, Abdominal pain Patient Disposition: Still a Patient Condition: Serious Instructions: Antibiotic Form Patient Language: Ghanaian Prescriptions: No Action fexofenadine 180 mg tablet 180 mg PO DAILY PRN (Reason: contact dermititis) aspirin 325 mg tablet 325 mg PO DAILY PRN (Reason: fever) gabapentin 300 mg capsule 600 mg PO BID hydrochlorothiazide 25 mg tablet See Rx Instructions .ROUTE .COMPLEX PRN Dose Instruction: TAKE 1 TABLET BY MOUTH DAILY Rx Instructions: TAKE 1 TABLET BY MOUTH DAILY PRN; benzonatate 200 mg capsule 200 mg PO TID PRN (Reason: cough) Qty: 30 1RF lisinopril 40 mg tablet See Rx Instructions .ROUTE .COMPLEX Qty: 90 2RF Dose Instruction: TAKE 1 TABLET BY MOUTH EVERY DAY Rx Instructions: TAKE 1 TABLET BY MOUTH EVERY DAY furosemide 40 mg tablet 40 mg PO QAM Qty: 90 2RF tramadol 50 mg tablet 50 mg PO Q4H PRN (Reason: pain) Qty: 90 2RF diclofenac sodium 75 mg tablet,delayed release (DR/EC) See Rx Instructions .ROUTE .COMPLEX Qty: 180 2RF Dose Instruction: TAKE 1 TABLET BY MOUTH TWICE DAILY Rx Instructions: TAKE 1 TABLET BY MOUTH TWICE DAILY atorvastatin 20 mg tablet See Rx Instructions .ROUTE .COMPLEX Qty: 90 2RF Dose Instruction: TAKE 1 TABLET BY MOUTH EVERY DAY Rx Instructions: TAKE 1 TABLET BY MOUTH EVERY DAY Follow-up/Referrals: Ibrahima Bird MD [Primary Care Provider] - Time of Disposition: 18:44
--- NOTE | 2024-04-22 18:31 | WPDANESEPP ---
Anes - Eval Pre Procedure Procedure: Exploratory laparotomy Date/Time: 04/22/24 18:31 Surgeon: Josh Preop Diagnosis: Free air in abdomen Pre Op Diagnosis: Abdominal Pain Patient Data Age: 78 Gender: M Height: 1.8 m Weight: 114 kg Last Vital Signs Temp 97.7 F 04/22/24 18:14 Pulse 117 H 04/22/24 18:21 Resp 20 04/22/24 18:21 BP 122/76 04/22/24 18:21 Pulse Ox 100 04/22/24 18:21 O2 Del Method Nasal Cannula 04/22/24 17:16 O2 Flow Rate 3 04/22/24 17:16 Allergies Allergy/AdvReac Type Severity Reaction Status Date / Time nickel Allergy Mild Other Verified 12/01/23 15:22 cephalexin AdvReac Severe Rash Verified 12/01/23 15:22 Home Medications ?Medication ?Instructions ?Recorded ?Confirmed ?Type aspirin 325 mg tablet 325 mg PO DAILY PRN fever 09/13/21 07/23/23 History fexofenadine 180 mg tablet 180 mg PO DAILY PRN contact 09/13/21 07/23/23 History dermititis gabapentin 300 mg capsule 600 mg PO BID 12/20/21 07/23/23 History hydrochlorothiazide 25 mg tablet See Rx Instructions .Route 07/23/23 07/23/23 History .COMPLEX PRN benzonatate 200 mg capsule 200 mg PO TID PRN cough #30 caps 10/13/23 Rx lisinopril 40 mg tablet See Rx Instructions .Route 11/09/23 Rx .COMPLEX #90 tabs furosemide 40 mg tablet 40 mg PO QAM #90 tabs 02/03/24 Rx tramadol 50 mg tablet 50 mg PO Q4H PRN pain #90 tabs 02/08/24 Rx diclofenac sodium 75 mg See Rx Instructions .Route 02/16/24 Rx tablet,delayed release .COMPLEX #180 tabs atorvastatin 20 mg tablet See Rx Instructions .Route 03/06/24 Rx .COMPLEX #90 tabs Laboratory Tests 04/22/24 04/22/24 04/22/24 17:42 17:43 17:44 WBC 8.6 K/mm3 (4.5-10.0) RBC 4.97 M/mm3 (4.6-6.20) Hgb 14.7 D g/dL (14.0-18.0) Hct 46.1 % (42.0-52.0) MCV 92.8 fl (80-100) MCH 29.6 pg (26-34) MCHC 31.9 L g/dl (32-36) RDW 13.7 % (11.5-14.5) Plt Count 335 k/mm3 (150-375) MPV 12.4 H fl (7.4-10.4) Immature Gran % (Auto) Not Reportable Neut % (Auto) Not Reportable Lymph % (Auto) Not Reportable Conway % (Auto) Not Reportable Eos % (Auto) Not Reportable Baso % (Auto) Not Reportable Lymph # (Auto) Not Reportable [place] # (Auto) Not Reportable Eos # (Auto) Not Reportable Baso # (Auto) Not Reportable Abs Immat Gran (auto) Not Reportable Absolute Neuts (auto) Not Reportable Absolute Nucleated RBC Not Reportable Total Counted 100 Neutrophils % (Manual) 23 L % (46-73) Band Neutrophils % 60 H % (0-6) Lymphocytes % (Manual) 12.0 L % (18-44) Monocytes % (Manual) 2 L % (3-9) Metamyelocytes % 3 % Nucleated RBC % Not Reportable Abs Neuts (Manual) 7.13 H K/mm3 (1.3-6.7) Abs Lymphs (Manual) 1.03 L K/mm3 (1.1-4.5) Abs Monocytes (Manual) 0.17 K/mm3 (0.1-0.90) Platelet Estimate Adequate (Adequate) Hypochromasia 1+ Schistocytes None seen PT 16.9 H Seconds (11.1-14.7) INR 1.3 APTT 30.7 Seconds (22.3-36.8) Fibrinogen Pending D-Dimer Pending Sodium 137 mmol/L (137-145) Potassium 6.3 H* mmol/L (3.4-5.0) Chloride 99 mmol/L (98-107) Carbon Dioxide 21 L mmol/L (22-30) Anion Gap 17 H mmol/L (4-12) BUN 67 H D mg/dL (9-20) Creatinine 4.15 H mg/dL 4.40 H mg/dL (0.7-1.3) (0.8-1.5) Estim Creat Clear Calc 18 ml/min 17 ml/min Estimated GFR 14 L 13 L (59 - ) (59 - ) Glucose 112 H mg/dL (65-110) Lactic Acid 5.4 H* mmol/L (0.7-2.0) Calcium 9.4 mg/dL (8.4-10.2) Magnesium Pending Total Bilirubin 1.4 H mg/dL (0.2-1.3) AST 35 U/L (17-59) ALT 27 U/L (6-50) Alkaline Phosphatase 99 U/L (38-126) Total Protein 7.0 g/dL (6.3-8.2) Albumin 3.8 g/dL (3.5-5.1) Blood Type A Positive Antibody Screen Negative Crossmatch See Detail ECG: NSR from Patient hx anesthesia problems: none Family hx anesthesia problems: none Results Review: All pre-operative results and documents have been reviewed as part of the pre-operative evaluation. [facility] Past Medical History Medical History PAD (peripheral artery disease) Acute perforated appendicitis RIC (acute kidney injury) Piriformis syndrome Trochanteric bursitis, right hip Lumbar stenosis Low Back Pain Arthritis Colon polyps Umbilical hernia HTN (hypertension) Hypercholesterolemia Surgical History Surgical History History of appendectomy (06/2022) Perforated appemdix H/O Spinal surgery (1984) H/O umbilical hernia repair (2011) Hx of tonsillectomy Family History Family History Father Acute myocardial infarction Heart disease Alzheimer disease Mother Acute myocardial infarction Heart disease Alzheimer disease Social History Social History Smoking status: Never smoker Second hand tobacco smoke exposure: Yes Alcohol intake: never Alcohol use details: Occasional Substance use: never Substance use type: does not use Lack of Transportation: No Lack of Food: Never True Current Housing: I Have Housing Concerned About Future Housing: No Difficulty Paying Gas/Electric Bills: No Difficulty Paying for Meds: No Currently Unemployed: No Education: Master's Degree or Higher Difficulty w/ Childcare or Family Care: No Living arrangements: with family Occupation/Education: retired Gender identity (if verbalized by the patient): Male Spiritual care concerns: No Agree to blood products: Yes Exam Day of Procedure 04/22/24 18:31 Patient weight: obese Heart: regular rate and rhythm
[2024-04-22 18:39] LABS: Fibrinogen 1164 mg/dl (215-510)
[2024-04-22 18:44] LABS: Magnesium 2.1 mg/dL (1.6-2.3)
--- NOTE | 2024-04-22 18:51 | PC.NURSE ---
Blood consent not signed by pt d/t massive transfusion. Pt gave verbal consent for blood and v/u on needing the blood. ERP Dr T aware of pt not being able to sign. ERP ordered for blood to be given per Mass Transfusion protocol. ED KELBY Kenny, verified/cosigned both blood products at this time.
--- NOTE | 2024-04-22 18:59 | PC.NURSE ---
per vorb Dr. Hobbs patient to receive 2 units of blood mass transfusion. this rn obtained consent from EDP Dr. Araya for mass transfusion. this rn used closed loop communication to confirm mass transfusion for patient. edp dr. araya confirmed. patient recieving x2 units of blood via 18 gauge left AC on gravity tubing. pt sent to OR with mass transfusing still infusing.
--- NOTE | 2024-04-22 19:14 | P.CONS_ITS ---
Assessment and Plan Assessment and plan (1) Perforated abdominal viscus: Code(s): R19.8 - Other specified symptoms and signs involving the digestive system and abdomen Status: Acute Assessment and Plan: Patient likely has a perforated gastric or duodenal ulcer as imaged on CT scan. He has abdominal free air and acute surgical abdomen. He will need to go to the abdomen emergently this evening for exploratory laparotomy and repair of perforated duodenal ulcer. The risks, benefits, indications, expected outcomes were discussed with the patient and his family at the bedside in the emergency room. They understand 1 proceed with surgery. Postoperative admission to the ICU and need for mechanical ventilation was also discussed and they understand. Patient is already getting blood products in the emergency room. He will need to be typed and crossed formally and at least 2units of blood kept available for him in the blood bank. IV antibiotics and had anti fungal agent for a perforated duodenal ulcer. HPI Data of Consult Date/Time: 04/22/24 19:14 Requesting Physician: Demarcus Moreno MD Primary Care Provider: Ibrahima Bird MD Consult Narrative Reason for consult: Perforated abdominal viscus Narrative: Ludin Menon is a 78 year old male who is known to me from my treatment of him in 2022 for perforated appendicitis which was treated with laparoscopic appendectomy. He had an extended course in the hospital due to the peritonitis and postoperative ileus due to the perforated appendicitis but ultimately he did recover. He presented to the emergency room today complaining of right-sided abdominal pain. CT scan of the abdomen pelvis was obtained and in the emergency room the patient had decompensation with hypotension and what appeared to be possible blood in the abdomen. He was given IV fluid boluses and emergency release of blood products. His blood pressure is now better but he still is on pressors. The CT scan reading showed large amount abdominal free air with what appears to be a perforated distal gastric or duodenal ulcer. Presently the patient is hemodynamically stable and getting blood products. He will need to go to the operating room for emergent exploratory laparotomy and repair of the duodenal ulcer. Review of Systems 2 Review of Systems: The remainder of the review of systems to include constitutional, HEENT, cardiovascular, respiratory, GI, , integumentary, musculoskeletal, endocrine, immunologic, hematologic, psychiatric, and neurologic are all negative except for which is mentioned above in the HPI. [facility] Past Medical History Medical History PAD (peripheral artery disease) Acute perforated appendicitis RIC (acute kidney injury) Piriformis syndrome Trochanteric bursitis, right hip Lumbar stenosis Low Back Pain Arthritis Colon polyps Umbilical hernia HTN (hypertension) Hypercholesterolemia Surgical History Surgical History History of appendectomy (06/2022) Perforated appemdix H/O Spinal surgery (1984) H/O umbilical hernia repair (2011) Hx of tonsillectomy Family History Family History Father Acute myocardial infarction Heart disease Alzheimer disease Mother Acute myocardial infarction Heart disease Alzheimer disease Social History Social History Smoking status: Never smoker Second hand tobacco smoke exposure: Yes Alcohol intake: never Alcohol use details: Occasional Substance use: never Substance use type: does not use Lack of Transportation: No Lack of Food: Never True Current Housing: I Have Housing Concerned About Future Housing: No Difficulty Paying Gas/Electric Bills: No Difficulty Paying for Meds: No Currently Unemployed: No Education: Master's Degree or Higher Difficulty w/ Childcare or Family Care: No Living arrangements: with family Occupation/Education: retired Gender identity (if verbalized by the patient): Male Spiritual care concerns: No Agree to blood products: Yes Meds Home Medications and Allergies Home Medications ?Medication ?Instructions ?Recorded ?Confirmed ?Type aspirin 325 mg tablet 325 mg PO DAILY PRN fever 09/13/21 07/23/23 History fexofenadine 180 mg tablet 180 mg PO DAILY PRN contact 09/13/21 07/23/23 History dermititis gabapentin 300 mg capsule 600 mg PO BID 12/20/21 07/23/23 History hydrochlorothiazide 25 mg tablet See Rx Instructions .Route 07/23/23 07/23/23 History .COMPLEX PRN benzonatate 200 mg capsule 200 mg PO TID PRN cough #30 caps 10/13/23 Rx lisinopril 40 mg tablet See Rx Instructions .Route 11/09/23 Rx .COMPLEX #90 tabs furosemide 40 mg tablet 40 mg PO QAM #90 tabs 02/03/24 Rx tramadol 50 mg tablet 50 mg PO Q4H PRN pain #90 tabs 02/08/24 Rx diclofenac sodium 75 mg See Rx Instructions .Route 02/16/24 Rx tablet,delayed release .COMPLEX #180 tabs atorvastatin 20 mg tablet See Rx Instructions .Route 03/06/24 Rx .COMPLEX #90 tabs Allergies Allergy/AdvReac Type Severity Reaction Status Date / Time nickel Allergy Mild Other Verified 12/01/23 15:22 cephalexin AdvReac Severe Rash Verified 12/01/23 15:22 Vital Signs Vital Signs - 24 hr 04/22/24 17:16 04/22/24 17:24 04/22/24 17:32 Temperature 36.4 C Pulse Rate 98 90 79 Respiratory Rate 26 H 20 Blood Pressure 62/53 L 62/53 L 70/40 L Pulse Oximetry 90 90 Oxygen Delivery Nasal Cannula Oxygen Flow Rate 3 04/22/24 17:37 04/22/24 17:44 04/22/24 17:55 Temperature Pulse Rate 93 80 101 H Respiratory Rate 18 24 H Blood Pressure 80/61 L 81/49 L 106/72 Pulse Oximetry Oxygen Delivery Oxygen Flow Rate 04/22/24 17:56 04/22/24 18:01 04/22/24 18:06 Temperature Pulse Rate 98 103 H 99 Respiratory Rate 20 24 H 20 Blood Pressure 126/76 120/74 Pulse Oximetry 99 95 Oxygen Delivery Oxygen Flow Rate 04/22/24 18:11 04/22/24 18:14 04/22/24 18:15 Temperature 36.5 C Pulse Rate 100 112 H 113 H Respiratory Rate 21 H 20 19 Blood Pressure 120/70 156/71 H 156/71 H Pulse Oximetry 98 Oxygen Delivery Oxygen Flow Rate 04/22/24 18:16 04/22/24 18:21 04/22/24 18:22 Temperature 36.6 C Pulse Rate 113 H 117 H 114 H Respiratory Rate 22 H 20 18 Blood Pressure 122/76 Pulse Oximetry 97 100 97 Oxygen Delivery Oxygen Flow Rate 04/22/24 18:25 04/22/24 18:30 04/22/24 18:36 Temperature 37.0 C Pulse Rate 112 H 113 H 110 H Respiratory Rate 20 19 Blood Pressure 100/72 103/72 156/79 H Pulse Oximetry 97 99 Oxygen Delivery Oxygen Flow Rate 04/22/24 18:36 04/22/24 18:40 04/22/24 18:46 Temperature 36.6 C Pulse Rate 112 H 111 H 114 H Respiratory Rate 20 16 19 Blood Pressure 104/72 106/84 111/80 Pulse Oximetry 97 99 99 Oxygen Delivery Oxygen Flow Rate 04/22/24 18:50 04/22/24 18:55 04/22/24 18:55 Temperature 36.4 C Pulse Rate 111 H 108 H 108 H Respiratory Rate 17 19 17 Blood Pressure 112/74 124/77 124/77 Pulse Oximetry 98 98 Oxygen Delivery Oxygen Flow Rate 04/22/24 19:00 Temperature Pulse Rate 110 H Respiratory Rate 18 Blood Pressure 116/90 Pulse Oximetry 96 Oxygen Delivery Oxygen Flow Rate Exam 2 Const: General: in distress (Mild distress 0 abdominal pain. He is answering questions.) HENMT: Ears: TM's normal bilaterally Face/Nose/Sinus: Normal nares present Mouth: Yes moist mucous membranes Eyes: General: appearance normal, both eyes and all related structures S clera: sclerae normal Pupils: Equal, round and reactive pupils present E OM: EOMs intact bilaterally Neck: Neck: supple and no JVD Resp: Effort & Inspection: normal respiratory effort Auscultation: clear to auscultation bilaterally Cardio: Rate: tachycardic Rhythm: regular rhythm GI: Other: Abdomen is very distended and relatively firm. Diffuse abdominal tenderness with peritoneal signs. Acute surgical abdomen is noted. Skin: General skin exam: normal color and no rashes or lesions noted Neuro: General: gait normal Speech: normal speech Motor exam (neuro): 5 /5 motor strength present throughout Sensory Exam: normal sensation Extrem: General: normal to inspection Psych: Mental Status: mental status grossly normal Affect: normal affect Results Labs 04/22/24 17:42 04/22/24 17:44 Labs: Short CBC 04/22/24 Range/Units 17:42 WBC 8.6 (4.5-10.0) K/mm3 Hgb 14.7 D (14.0-18.0) g/dL Hct 46.1 (42.0-52.0) % Plt Count 335 (150-375) k/mm3 BMP 04/22/24 04/22/24 17:42 17:44 Sodium 137 Potassium 6.3 H* Chloride 99 Carbon Dioxide 21 L BUN 67 H D Creatinine 4.15 H 4.40 H Glucose 112 H Calcium 9.4 Liver Function 04/22/24 Range/Units 17:42 Total Bilirubin 1.4 H (0.2-1.3) mg/dL AST 35 (17-59) U/L ALT 27 (6-50) U/L Alkaline Phosphatase 99 (38-126) U/L Albumin 3.8 (3.5-5.1) g/dL Imaging Radiologist's impression: CT Scan Report Signed Patient: Ludin Menon : 1945 MR#: [id number] Age: 78 Acct:[id number] Loc: [facility] ADM Date: 04/22/24Attending Dr: Ordering Physician: Delfino Araya MD Date of Service: 04/22/24 Procedure(s): CTA chest abdomen pelvis Accession Number(s): [id number] cc: Delfino Araya MD; Ibrahima Bird MD~ EXAMINATION: CTA chest abdomen pelvis DATE: 04/22/2024 18:10 CDT INDICATION: Flank pain with abdominal distention, and now with hypotension. TECHNIQUE: Computed tomographic angiography (CTA) of the chest was performed, along with multiple contiguous axial images of the abdomen and pelvis with 100 mL Omnipaque-350 intravenous contrast. The dose-length product was 1486.30 mGy- cm. Maximum intensity projection 3D-reconstructions of the aorta and other arteries were constructed by the technologist on a separate workstation. FINDINGS/OBSERVATIONS: PULMONARY ARTERIES: No filling defect is identified within the main or proximal pulmonary artery. The main pulmonary artery is not enlarged. THORACIC AORTA: No aneurysmal dilatation or dissection is present. The great vessels are intact LUNGS: Small bilateral pleural effusions, right greater than left with adjacent compressive atelectasis. MEDIASTINUM: No morphologically suspicious or pathologically enlarged lymph nodes are identified within the mediastinum or bilateral axilla. BONES OF THE CHEST: No acute fracture. No significant degenerative disease. No lytic or blastic lesions. HEART: The heart is enlarged, without pericardial effusion. LIVER: The liver is decreased in attenuation and increased in size measuring 20 cm in longitudinal dimension. Perihepatic fluid is also noted. GALLBLADDER AND BILIARY SYSTEM: The gallbladder is distended, and otherwise unremarkable. PANCREAS: The pancreas enhances homogeneously without ductal dilatation. SPLEEN: The spleen enhances homogeneously and is not enlarged measuring 10 cm in longitudinal dimension. KIDNEYS: The bilateral kidneys enhance symmetrically without hydronephrosis or renal calculi. ADRENAL GLANDS: Unremarkable. GASTROINTESTINAL TRACT: Extraperitoneal air is identified within the abdomen for which viscus perforation is suspected. Significant mural thickening is identified within the distal stomach with surrounding punctate foci of air for which the source of viscus perforation is suspected. A large amount of intraperitoneal, extra luminal air and fluid are present. No retroperitoneal air or fluid are noted. No air or fluid within the lesser sac. APPENDIX: Surgically absent. VASCULATURE: Unremarkable. No aneurysmal dilatation or significant stenosis. LYMPH NODES: No pathologically enlarged or morphologically suspicious lymph nodes within the retroperitoneum or at the root of the mesentery. PELVIC STRUCTURES: The bladder is minimally distended, and otherwise unremarkable. The prostate gland is not enlarged, but contains bulky calcifications. BODY WALL AND MUSCULOSKELETAL: Small fat-containing umbilical hernia. Significant degenerative disease is identified with osteophyte formation, disc space narrowing, endplate changes and vacuum phenomena. Facet arthropathy is also noted. IMPRESSION: Perforated viscus with a large amount of free air and fluid, with mural thickening in the distal stomach and multiple punctate foci of extraluminal air in this area for which site of perforation is suspected. Reviewed, dictated and finalized at location A.
--- NOTE | 2024-04-22 19:38 | WPDANESEPPF ---
Anes - Initial Pre Proc Eval Procedure: Operation Date: 04/22/24 19:30 Proposed Procedures p Exploratory Laparotomy, Pos Bowel Resec - Demarcus Moreno MD Date/Time: 04/22/24 19:38 Surgeon: Demarcus Moreno MD Pre Op Diagnosis: Abdominal Pain Patient Data Age: 78 Gender: M Height: 1.8 m Weight: 114 kg Last Vital Signs Temp 97.6 F 04/22/24 19:31 Pulse 112 H 04/22/24 19:31 Resp 18 04/22/24 19:31 BP 116/90 04/22/24 19:31 Pulse Ox 96 04/22/24 19:31 O2 Del Method Nasal Cannula 04/22/24 17:16 O2 Flow Rate 3 04/22/24 17:16 Allergies Allergy/AdvReac Type Severity Reaction Status Date / Time nickel Allergy Mild Other Verified 12/01/23 15:22 cephalexin AdvReac Severe Rash Verified 12/01/23 15:22 Home Medications ?Medication ?Instructions ?Recorded ?Confirmed ?Type aspirin 325 mg tablet 325 mg PO DAILY PRN fever 09/13/21 07/23/23 History fexofenadine 180 mg tablet 180 mg PO DAILY PRN contact 09/13/21 07/23/23 History dermititis gabapentin 300 mg capsule 600 mg PO BID 12/20/21 07/23/23 History hydrochlorothiazide 25 mg tablet See Rx Instructions .Route 07/23/23 07/23/23 History .COMPLEX PRN benzonatate 200 mg capsule 200 mg PO TID PRN cough #30 caps 10/13/23 Rx lisinopril 40 mg tablet See Rx Instructions .Route 11/09/23 Rx .COMPLEX #90 tabs furosemide 40 mg tablet 40 mg PO QAM #90 tabs 02/03/24 Rx tramadol 50 mg tablet 50 mg PO Q4H PRN pain #90 tabs 02/08/24 Rx diclofenac sodium 75 mg See Rx Instructions .Route 02/16/24 Rx tablet,delayed release .COMPLEX #180 tabs atorvastatin 20 mg tablet See Rx Instructions .Route 03/06/24 Rx .COMPLEX #90 tabs Laboratory Tests 04/22/24 04/22/24 04/22/24 17:42 17:43 17:44 WBC 8.6 K/mm3 (4.5-10.0) RBC 4.97 M/mm3 (4.6-6.20) Hgb 14.7 D g/dL (14.0-18.0) Hct 46.1 % (42.0-52.0) MCV 92.8 fl (80-100) MCH 29.6 pg (26-34) MCHC 31.9 L g/dl (32-36) RDW 13.7 % (11.5-14.5) Plt Count 335 k/mm3 (150-375) MPV 12.4 H fl (7.4-10.4) Immature Gran % (Auto) Not Reportable Neut % (Auto) Not Reportable Lymph % (Auto) Not Reportable [place] % (Auto) Not Reportable Eos % (Auto) Not Reportable Baso % (Auto) Not Reportable Lymph # (Auto) Not Reportable [place] # (Auto) Not Reportable Eos # (Auto) Not Reportable Baso # (Auto) Not Reportable Abs Immat Gran (auto) Not Reportable Absolute Neuts (auto) Not Reportable Absolute Nucleated RBC Not Reportable Total Counted 100 Neutrophils % (Manual) 23 L % (46-73) Band Neutrophils % 60 H % (0-6) Lymphocytes % (Manual) 12.0 L % (18-44) Monocytes % (Manual) 2 L % (3-9) Metamyelocytes % 3 % Nucleated RBC % Not Reportable Abs Neuts (Manual) 7.13 H K/mm3 (1.3-6.7) Abs Lymphs (Manual) 1.03 L K/mm3 (1.1-4.5) Abs Monocytes (Manual) 0.17 K/mm3 (0.1-0.90) Platelet Estimate Adequate (Adequate) Hypochromasia 1+ Schistocytes None seen PT 16.9 H Seconds (11.1-14.7) INR 1.3 APTT 30.7 Seconds (22.3-36.8) Fibrinogen 1164 H mg/dl (215-510) D-Dimer 7.40 H ug/mL (<0.48) Sodium 137 mmol/L (137-145) Potassium 6.3 H* mmol/L (3.4-5.0) Chloride 99 mmol/L (98-107) Carbon Dioxide 21 L mmol/L (22-30) Anion Gap 17 H mmol/L (4-12) BUN 67 H D mg/dL (9-20) Creatinine 4.15 H mg/dL 4.40 H mg/dL (0.7-1.3) (0.8-1.5) Estim Creat Clear Calc 18 ml/min 17 ml/min Estimated GFR 14 L 13 L (59 - ) (59 - ) Glucose 112 H mg/dL (65-110) Lactic Acid 5.4 H* mmol/L (0.7-2.0) Calcium 9.4 mg/dL (8.4-10.2) Magnesium 2.1 mg/dL (1.6-2.3) Total Bilirubin 1.4 H mg/dL (0.2-1.3) AST 35 U/L (17-59) ALT 27 U/L (6-50) Alkaline Phosphatase 99 U/L (38-126) Total Protein 7.0 g/dL (6.3-8.2) Albumin 3.8 g/dL (3.5-5.1) Blood Type A Positive Antibody Screen Negative Crossmatch See Detail Patient hx anesthesia problems: none Family hx anesthesia problems: none Results Review: All pre-operative results and documents have been reviewed as part of the pre-operative evaluation. [facility] Past Medical History Medical History PAD (peripheral artery disease) Acute perforated appendicitis RIC (acute kidney injury) Piriformis syndrome Trochanteric bursitis, right hip Lumbar stenosis Low Back Pain Arthritis Colon polyps Umbilical hernia HTN (hypertension) Hypercholesterolemia Surgical History Surgical History History of appendectomy (06/2022) Perforated appemdix H/O Spinal surgery (1984) H/O umbilical hernia repair (2011) Hx of tonsillectomy Family History Family History Father Acute myocardial infarction Heart disease Alzheimer disease Mother Acute myocardial infarction Heart disease Alzheimer disease Social History Social History Smoking status: Never smoker Second hand tobacco smoke exposure: Yes Alcohol intake: never Alcohol use details: Occasional Substance use: never Substance use type: does not use Lack of Transportation: No Lack of Food: Never True Current Housing: I Have Housing Concerned About Future Housing: No Difficulty Paying Gas/Electric Bills: No Difficulty Paying for Meds: No Currently Unemployed: No Education: Master's Degree or Higher Difficulty w/ Childcare or Family Care: No Living arrangements: with family Occupation/Education: retired Gender identity (if verbalized by the patient): Male Spiritual care concerns: No Agree to blood products: Yes Anes - Eval Final PreProcedure Day of Procedure 04/22/24 19:38 Patient weight: obese Lungs: normal air movement Airway: Mallampati scale class II Neurological: alert and oriented Last oral intake: >/= 8 hours ASA classification: V Emergent: yes Anesthetic plan: proceed Anesthesia type and monitoring: general ETT and standard monitoring (Poss art line, poss art line discussed w pt and his son at bedside. ) Results Review: All pre-operative results and documents have been reviewed as part of the pre-operative evaluation. Pt critically ill w acute abdomen, electrolytes abnormal, GFR depressed. K 6.3. Discussed added lines, poss art/CVP/ poss post op mechanical vent and ICU admission w pt and son Raymond who understand and wish to proceed for this emergency surgery. Informed Consent: The patient's anesthetic plan and its attendant risks and benefits were discussed with the patient/family/POA. Questions were solicited and answers provided to the satisfaction of the patient/family/POA.
[2024-04-22 19:47] LABS: Reflex Lactic Acid Yes or No Add Lactic
--- NOTE | 2024-04-22 19:47 | PC.NURSE ---
At 1810, 2 units verified at bedside by 2 RNs and started to administered with 250mls Normal Saline to gravity to pts left AC 18G site under mass transfusion protocol.
[2024-04-22] MEDS: VANCOMYCIN 1,750 MG/NS 500 ML 1,750 MG/500 ML BAG 250 MG IVPB (20:23)
--- NOTE | 2024-04-22 20:32 | P.PCNANE_ITS ---
Arterial Cath Proc Note Consent: I have discussed with the patient/family/POA, the non-emergent placement of an arterial catheter, including its clinical necessity/indication and associated potential risks and complications. The patient/family/POA and/or understand(s) and acknowledge(s) the need to proceed with the arterial catheter insertion as an important element of the patient's clinical management. Given emergent patient conditions, temporal constraints may have precluded informed consent. Time-Out: A pre-procedural Time-Out was completed immediately before starting the procedure and confirmed: Patient Identification, Site, Procedure, Patient Position and the Availability of Requisite Equipment. 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
[2024-04-22 20:39] LABS: Hemoglobin 14.3 g/dL (14.0-18.0); Mean Corpuscular HGB Conc 31.8 g/dl (32-36); Mean Corpuscular Hemoglobin 29.2 pg (26-34); Mean Corpuscular Volume 91.8 fl (80-100); Mean Platelet Volume 12.5 fl (7.4-10.4); Platelet Count Result 295 k/mm3 (150-375); White Blood Count 8.9 K/mm3 (4.5-10.0)
[2024-04-22 20:41] LABS: Alveolar/Arterial O2 Gradient < 0.0 mmHg; Base Excess ABG -8.1 mEq/l (+/-2.0); Fractional Inspired Oxygen 21 %; HCO3 ABG 21.5 mEq/l (22.0-26.0); Oxygen Saturation ABG 98.9 % (95.0-100.0); PO2 FiO2 Ratio Arterial Blood > 0.00 %
[2024-04-22 20:43] LABS: PCO2 ABG 61.3 mmHg (35.0-45.0); pH ABG 7.162 (7.350-7.450)
[2024-04-22 20:48] LABS: Anion Gap 15 mmol/L (4-12); Blood Urea Nitrogen 62 mg/dL (9-20); Calcium 8.3 mg/dL (8.4-10.2); Carbon Dioxide 20 mmol/L (22-30); Chloride 102 mmol/L (98-107); Estimated CRCL calculation 20 ml/min; Estimated Glomerular Filt Rate 16; Glucose 107 mg/dL (65-110); Potassium 6.2 mmol/L (3.4-5.0); Sodium 137 mmol/L (137-145)
[2024-04-22 21:47] LABS: Alveolar/Arterial O2 Gradient 495.1 mmHg; Base Excess ABG -6.5 mEq/l (+/-2.0); Fractional Inspired Oxygen 100 %; Oxygen Content ABG 19.6 %vol (16.0-22.0); Oxygen Saturation ABG 98.8 % (95.0-100.0); Oxyhemoglobin 97.9 % THb (90.0-100.0); PCO2 ABG 49.9 mmHg (35.0-45.0); PO2 FiO2 Ratio Arterial Blood 1.68 %
[2024-04-22 21:54] LABS: Modified Allen's Test Pass; Site Drawn RIGHT RADIAL; pH ABG 7.243 (7.350-7.450)
[2024-04-22 21:55] LABS: Arterial Blood Gas Tidal Volume 500 ml; Arterial Blood Gas Vent Mode PRESSURE CONTROL; Arterial Blood Gas Ventilator rate 12 /MIN; Device VENTILATOR
--- NOTE | 2024-04-22 22:19 | WPDANESCVCPN ---
Anes - Cent Venous Cath Note Consent: I have discussed with the patient/family/POA, the non-emergent placement of a central venous catheter, including its clinical necessity/indication and associated potential risks and complications. The patient/family/POA understand(s) and acknowledge(s) the need to proceed with central venous catheter insertion as an important element of the patient's clinical management given emergent patient conditions, temporal constraints may have precluded informed consent. Time-Out: A pre-procedural Time-Out was completed immediately before starting the procedure and confirmed: Patient Identification, Site, Procedure, Patient Position and the Availability of Requisite Equipment. Procedure Note Patient position: trendelenburg Central venous catheter insertion site: right internal jugular CVC method of insertion: ultrasound-guided Hand hygiene/Aseptic technique: Hand hygiene procedures were performed. Aseptic technique was maintained throughout the procedure. Sterile barrier precautions: Maximal sterile barrier precautions, including use of a cap, mask, sterile gown, sterile gloves and a sterile full body drape. Site prep: chlorhexidine Skin anesthesia: placed under general anesthesia Kinyarwanda: 7 Lumen: 3 Length (cm): 20 cm Depth of insertion (cm): 18 Closure/Dressing: suture, biopatch and tegaderm Complications: None immediately noted/suspected. Confirmed venous w pressure tubing. Chest X Ray: Ordered/review to follow.
[2024-04-22 23:18] LABS: Alveolar/Arterial O2 Gradient 562.5 mmHg; Arterial Blood Gas PEEP 8 cmH2O; Arterial Blood Gas Tidal Volume 500 ml; Arterial Blood Gas Vent Mode CMV; Arterial Blood Gas Ventilator rate 20 /MIN; Base Excess ABG -5.4 mEq/l (+/-2.0); Device VENTILATOR; Fractional Inspired Oxygen 100 %; HCO3 ABG 20.7 mEq/l (22.0-26.0); Oxygen Saturation ABG 97.5 % (95.0-100.0); PCO2 ABG 42.8 mmHg (35.0-45.0); PO2 ABG 107.7 mmHg (80.0-100.0); PO2 FiO2 Ratio Arterial Blood 1.08 %; Site Drawn ARTLINE; Total Hemoglobin 14.6 g/dL (12.0-18.0); pH ABG 7.303 (7.350-7.450)
--- NOTE | 2024-04-22 23:34 | PM.IMHP ---
H&P: HPI History of Present Illness Date/Time: 04/22/24 23:34 Chief Complaint: 3 days of abdominal pain Narrative: 78-year-old male with a past medical history of the osteoarthritis on chronic NSAID therapy, hyperlipidemia, hypertension, prior umbilical hernia repair, perforated appendix status post resection 2022 who presented to the ER via EMS with 3 days of sharp radiating abdominal pain. Initial blood pressure on EMS arrival to the scene was 104 systolic and blood sugar was 114. Patient was satting 90% on room air at home. On arrival to the ER the patient was markedly hypotensive with systolic blood pressures of 62/53. He had a normal white count but his % bands were 60%. BMP demonstrated acute kidney injury on chronic kidney disease creatinine increased from 1.4-4.15 and potassium of 6.3 with a serum bicarb slightly decreased at 21. His D-dimer was elevated. The patient's lactic acid was 5.4. He received a 30 mL/kilos bolus and 2 units of packed red blood cells in the ER and he was sent for stat CT of the chest abdomen and pelvis. CT demonstrated perforated viscus with large amount of free air and fluid with mural thickening of the distal stomach and multiple punctate foci of extraluminal air with suspected perforated ulcer. Patient was evaluated by the surgeon in the ER was taken directly to the OR. In the ER patient received 2.3 L of isotonic fluids and albumin. He was started on Levophed due to persistent hypotension arrived to the ICU on Levophed 5 mcg minute. Her repeat BMP was performed postoperatively and patient was found to be persistently hyperkalemic at that time he received amps of bicarb, calcium, insulin and glucose. His ABG in PACU demonstrated mild Ellik acidosis. The patient was on pressure support ventilation at the time with high volumes of 600 and rate of 12 with 100% FiO2. Patient arrived to the ICU not on sedation and not responsive to painful stimuli. He is intubated with ET tube at 25 at the [facility]. Anesthesiology reported that the patient had over 2 L of gastric contents within the peritoneal space. Operative note not available for my review. Review of Systems Review of Systems: ROS unobtainable: Yes unobtainable due to endotracheal tube PMFSH Past Medical History Medical History (Updated 04/23/24 @ 08:09 by Irma Reynoso DO) PAD (peripheral artery disease) Acute perforated appendicitis RIC (acute kidney injury) Piriformis syndrome Trochanteric bursitis, right hip Lumbar stenosis Low Back Pain Arthritis Colon polyps (07/02/22) Umbilical hernia HTN (hypertension) Hypercholesterolemia Surgical History Surgical History History of appendectomy (06/2022) Perforated appemdix H/O Spinal surgery (1984) H/O umbilical hernia repair (2011) Hx of tonsillectomy Family History Family History Father Acute myocardial infarction Heart disease Alzheimer disease Mother Acute myocardial infarction Heart disease Alzheimer disease Social History Social History (Updated 04/22/24 @ 23:45 by Irma Reynoso DO) Social History: Code status: Full code Surrogate decision maker: Erika () Smoking status: Never smoker Second hand tobacco smoke exposure: Yes Alcohol intake: never Alcohol use details: Occasional Substance use: never Substance use type: does not use Lack of Transportation: No Lack of Food: Never True Current Housing: I Have Housing Concerned About Future Housing: No Difficulty Paying Gas/Electric Bills: No Difficulty Paying for Meds: No Currently Unemployed: No Education: Master's Degree or Higher Difficulty w/ Childcare or Family Care: No Living arrangements: with family Occupation/Education: retired Gender identity (if verbalized by the patient): Male Spiritual care concerns: No Agree to blood products: Yes Meds Home Medications and Allergies Home Medications ?Medication ?Instructions ?Recorded ?Confirmed ?Type aspirin 325 mg tablet 325 mg PO DAILY PRN fever 09/13/21 07/23/23 History fexofenadine 180 mg tablet 180 mg PO DAILY PRN contact 09/13/21 07/23/23 History dermititis gabapentin 300 mg capsule 600 mg PO BID 12/20/21 07/23/23 History hydrochlorothiazide 25 mg tablet See Rx Instructions .Route 07/23/23 07/23/23 History .COMPLEX PRN benzonatate 200 mg capsule 200 mg PO TID PRN cough #30 caps 10/13/23 Rx lisinopril 40 mg tablet See Rx Instructions .Route 11/09/23 Rx .COMPLEX #90 tabs furosemide 40 mg tablet 40 mg PO QAM #90 tabs 02/03/24 Rx tramadol 50 mg tablet 50 mg PO Q4H PRN pain #90 tabs 02/08/24 Rx diclofenac sodium 75 mg See Rx Instructions .Route 02/16/24 Rx tablet,delayed release .COMPLEX #180 tabs atorvastatin 20 mg tablet See Rx Instructions .Route 03/06/24 Rx .COMPLEX #90 tabs Allergies Allergy/AdvReac Type Severity Reaction Status Date / Time nickel Allergy Mild Other Verified 12/01/23 15:22 cephalexin AdvReac Severe Rash Verified 12/01/23 15:22 Vital Signs Vital Signs - 24 hr 04/22/24 17:16 04/22/24 17:24 04/22/24 17:32 Temperature 97.6 F Pulse Rate 98 90 79 Respiratory Rate 26 H 20 Blood Pressure 62/53 L 62/53 L 70/40 L Pulse Oximetry 90 90 Oxygen Delivery Nasal Cannula Oxygen Flow Rate 4 04/22/24 17:37 04/22/24 17:44 04/22/24 17:55 Temperature Pulse Rate 93 80 101 H Respiratory Rate 18 24 H Blood Pressure 80/61 L 81/49 L 106/72 Pulse Oximetry Oxygen Delivery Oxygen Flow Rate 04/22/24 17:56 04/22/24 18:01 04/22/24 18:06 Temperature Pulse Rate 98 103 H 99 Respiratory Rate 20 24 H 20 Blood Pressure 126/76 120/74 Pulse Oximetry 99 95 Oxygen Delivery Oxygen Flow Rate 04/22/24 18:11 04/22/24 18:14 04/22/24 18:15 Temperature 97.7 F Pulse Rate 100 112 H 113 H Respiratory Rate 21 H 20 19 Blood Pressure 120/70 156/71 H 156/71 H Pulse Oximetry 98 Oxygen Delivery Oxygen Flow Rate 04/22/24 18:16 04/22/24 18:21 04/22/24 18:22 Temperature 97.9 F Pulse Rate 113 H 117 H 114 H Respiratory Rate 22 H 20 18 Blood Pressure 122/76 Pulse Oximetry 97 100 97 Oxygen Delivery Oxygen Flow Rate 04/22/24 18:25 04/22/24 18:30 04/22/24 18:36 Temperature 98.6 F Pulse Rate 112 H 113 H 110 H Respiratory Rate 20 19 Blood Pressure 100/72 103/72 156/79 H Pulse Oximetry 97 99 Oxygen Delivery Oxygen Flow Rate 04/22/24 18:36 04/22/24 18:40 04/22/24 18:46 Temperature 97.9 F Pulse Rate 112 H 111 H 114 H Respiratory Rate 20 16 19 Blood Pressure 104/72 106/84 111/80 Pulse Oximetry 97 99 99 Oxygen Delivery Oxygen Flow Rate 04/22/24 18:50 04/22/24 18:55 04/22/24 18:55 Temperature 97.6 F Pulse Rate 111 H 108 H 108 H Respiratory Rate 17 19 17 Blood Pressure 112/74 124/77 124/77 Pulse Oximetry 98 98 Oxygen Delivery Oxygen Flow Rate 04/22/24 19:00 04/22/24 19:31 Temperature 97.6 F Pulse Rate 110 H 112 H Respiratory Rate 18 18 Blood Pressure 116/90 116/90 Pulse Oximetry 96 96 Oxygen Delivery Oxygen Flow Rate Exam Narrative: Weight 114 kg BMI 35 Const: Other: Acutely ill-appearing, intubated, sedated, obese HENMT: Other: Mucous membranes are dry, ET tube measuring at 25 at the lip, head is normocephalic atraumatic, few missing teeth, bridge in the lower jaw Eyes: Other: Pupils are equal and sluggishly reactive no scleral icterus Neck: Other: No JVD, trachea midline Resp: Other: Equal breath sounds, patient is not over breathing the vent Cardio: Other: Sinus tachycardia, 1+ bilateral radial pulses, unable to palpate pedal or posterior tibial pulses, pulses obtained with Doppler ultrasound GI: Other: Distended, postoperative dressings in place dressings are clean dry and intact patient has 2 ELSA drains, abdomen bowel sounds : Other: Bowman catheter in place was a small amount of turbid yellow urine Skin: Other: Generally cold to touch, 2nd cap refill, fingers and toes are cyanotic Neuro: Other: Patient is sedated, pupils are sluggishly reactive but equal Extrem: Other: 2+ pitting edema bilateral lower extremities, poor peripheral pulses of lower extremities with dorsalis pedis and posterior tibial the right lower extremity barely audible with the Doppler ultrasound, slightly better auscultation of pulses of the left pedal and dorsalis pedis Psych: Other: Unable to assess due to patient condition H&P: Results Labs Labs: Laboratory Tests 04/22/24 23:29 04/22/24 04/22/24 04/22/24 17:42 17:43 17:44 WBC 8.6 RBC 4.97 Hgb 14.7 D Hct 46.1 MCV 92.8 MCH 29.6 MCHC 31.9 L RDW 13.7 Plt Count 335 MPV 12.4 H Immature Gran % (Auto) Not Reportable Neut % (Auto) Not Reportable Lymph % (Auto) Not Reportable [place] % (Auto) Not Reportable Eos % (Auto) Not Reportable Baso % (Auto) Not Reportable Lymph # (Auto) Not Reportable [place] # (Auto) Not Reportable Eos # (Auto) Not Reportable Baso # (Auto) Not Reportable Abs Immat Gran (auto) Not Reportable Absolute Neuts (auto) Not Reportable Absolute Nucleated RBC Not Reportable Total Counted 100 Neutrophils % (Manual) 23 L Band Neutrophils % 60 H Lymphocytes % (Manual) 12.0 L Monocytes % (Manual) 2 L Metamyelocytes % 3 Nucleated RBC % Not Reportable Abs Neuts (Manual) 7.13 H Abs Lymphs (Manual) 1.03 L Abs Monocytes (Manual) 0.17 Platelet Estimate Adequate Hypochromasia 1+ Schistocytes None seen PT 16.9 H INR 1.3 APTT 30.7 Fibrinogen 1164 H D-Dimer 7.40 H Puncture Site ABG pH ABG pCO2 ABG pO2 ABG PO2/FiO2 Ratio ABG HCO3 ABG O2 Saturation ABG O2 Content ABG Base Excess A-a Gradient Oxyhemoglobin Total Hemoglobin O2 Delivery Device O2 Liters/Min Minute Volume Vent Rate Vent Mode FiO2 Tidal Volume PEEP Peak Inspir Pressure Pressure Support Sodium 137 Potassium 6.3 H* Chloride 99 Carbon Dioxide 21 L Anion Gap 17 H BUN 67 H D Creatinine 4.15 H 4.40 H Estim Creat Clear Calc 18 17 Estimated GFR 14 L 13 L Glucose 112 H Lactic Acid 5.4 H* Calcium 9.4 Phosphorus Magnesium 2.1 Total Bilirubin 1.4 H AST 35 ALT 27 Alkaline Phosphatase 99 Total Protein 7.0 Albumin 3.8 Procalcitonin Blood Type A Positive Antibody Screen Negative Crossmatch See Detail 04/22/24 04/22/24 04/22/24 20:27 21:25 23:08 WBC 8.9 RBC 4.90 Hgb 14.3 Hct 45.0 MCV 91.8 MCH 29.2 MCHC 31.8 L RDW 14.0 Plt Count 295 MPV 12.5 H Immature Gran % (Auto) Neut % (Auto) Lymph % (Auto) [place] % (Auto) Eos % (Auto) Baso % (Auto) Lymph # (Auto) [place] # (Auto) Eos # (Auto) Baso # (Auto) Abs Immat Gran (auto) Absolute Neuts (auto) Absolute Nucleated RBC Total Counted Neutrophils % (Manual) Band Neutrophils % Lymphocytes % (Manual) Monocytes % (Manual) Metamyelocytes % Nucleated RBC % Abs Neuts (Manual) Abs Lymphs (Manual) Abs Monocytes (Manual) Platelet Estimate Hypochromasia Schistocytes PT INR APTT Fibrinogen D-Dimer Puncture Site Not Reportable Right radial Artline ABG pH 7.162 L* 7.243 L* 7.303 L ABG pCO2 61.3 H* 49.9 H 42.8 ABG pO2 190.0 H 168.0 H 107.7 H ABG PO2/FiO2 Ratio > 0.00 1.68 1.08 ABG HCO3 21.5 L 21.0 L 20.7 L ABG O2 Saturation 98.9 98.8 97.5 ABG O2 Content 21.0 19.6 20.0 ABG Base Excess -8.1 -6.5 -5.4 A-a Gradient < 0.0 495.1 562.5 Oxyhemoglobin 98.0 97.9 97.0 Total Hemoglobin 15.0 14.0 14.6 O2 Delivery Device Not Reportable Ventilator Ventilator O2 Liters/Min Not Reportable Not Reportable Not Reportable Minute Volume Not Reportable Not Reportable Vent Rate 12 20 Vent Mode Pressure control Cmv FiO2 21 100 100 Tidal Volume 500 500 PEEP Not Reportable 8 Peak Inspir Pressure Not Reportable Not Reportable Pressure Support Not Reportable Not Reportable Sodium 137 Potassium 6.2 H* Chloride 102 Carbon Dioxide 20 L Anion Gap 15 H BUN 62 H Creatinine 3.77 H Estim Creat Clear Calc 20 Estimated GFR 16 L Glucose 107 Lactic Acid Calcium 8.3 L Phosphorus Magnesium Total Bilirubin AST ALT Alkaline Phosphatase Total Protein Albumin Procalcitonin Blood Type Antibody Screen Crossmatch 04/22/24 04/22/24 04/22/24 23:27 23:28 23:29 WBC Pending 9.6 RBC Pending 4.70 Hgb Pending 13.7 L Hct Pending 42.4 MCV Pending 90.2 MCH Pending 29.1 MCHC Pending 32.3 RDW Pending 14.1 Plt Count Pending 280 MPV Pending 11.8 H Immature Gran % (Auto) Pending Neut % (Auto) Pending Lymph % (Auto) Pending [place] % (Auto) Pending Eos % (Auto) Pending Baso % (Auto) Pending Lymph # (Auto) Pending [place] # (Auto) Pending Eos # (Auto) Pending Baso # (Auto) Pending Abs Immat Gran (auto) Pending Absolute Neuts (auto) Pending Absolute Nucleated RBC Pending Total Counted Neutrophils % (Manual) Band Neutrophils % Lymphocytes % (Manual) Monocytes % (Manual) Metamyelocytes % Nucleated RBC % Pending Abs Neuts (Manual) Abs Lymphs (Manual) Abs Monocytes (Manual) Platelet Estimate Hypochromasia Schistocytes PT Pending INR Pending APTT Pending Fibrinogen Pending D-Dimer Pending Puncture Site ABG pH ABG pCO2 ABG pO2 ABG PO2/FiO2 Ratio ABG HCO3 ABG O2 Saturation ABG O2 Content ABG Base Excess A-a Gradient Oxyhemoglobin Total Hemoglobin O2 Delivery Device O2 Liters/Min Minute Volume Vent Rate Vent Mode FiO2 Tidal Volume PEEP Peak Inspir Pressure Pressure Support Sodium Pending Potassium Pending Chloride Pending Carbon Dioxide Pending Anion Gap Pending BUN Pending Creatinine Pending Estim Creat Clear Calc Pending Estimated GFR Pending Glucose Pending Lactic Acid Pending Calcium Pending Phosphorus Pending Magnesium Pending Pending Total Bilirubin Pending AST Pending ALT Pending Alkaline Phosphatase Pending Total Protein Pending Albumin Pending Procalcitonin Pending Blood Type Antibody Screen Crossmatch Impressions Chest/Abdomen/Pelvis CTA 04/22/24 18:10 IMPRESSION: Perforated viscus with a large amount of free air and fluid, with mural thickening in the distal stomach and multiple punctate foci of extraluminal air in this area for which site of perforation is suspected. Chest X-Ray 04/22/24 23:18 IMPRESSION: Right basilar atelectasis versus pneumonia. Interstitial thickening in the left lung base. Assessment and Plan Assessment and plan (1) Perforated gastric ulcer: Qualifiers: Gastric ulcer chronicity: acute Qualified Code(s): K25.1 - Acute gastric ulcer with perforation Code(s): K25.5 - Chronic or unspecified gastric ulcer with perforation Status: Acute (2) Septic shock: Code(s): A41.9 - Sepsis, unspecified organism; R65.21 - Severe sepsis with septic shock Status: Acute (3) Acute kidney injury superimposed on stage 3b chronic kidney disease: Code(s): N17.9 - Acute kidney failure, unspecified; N18.32 - Chronic kidney disease, stage 3b Status: Acute (4) Acute hyperkalemia: Code(s): E87.5 - Hyperkalemia Status: Acute (5) PAD (peripheral artery disease): Code(s): I73.9 - Peripheral vascular disease, unspecified Status: Acute Plan The patient has septic shock due to perforated gastric ulcer with associated presume peritonitis and infection. Patient received Levaquin and Flagyl in the ER. Agree with change of the patient's antibiotics to Zosyn and vancomycin. Blood cultures are pending. The patient received adequate isotonic fluid resuscitation, albumin and blood products. Patient's hemoglobin has remained stable. Patient still remains hypotensive in is on Levophed. Initially patient was only requiring low-dose Levophed but throughout the course of the night patient became more profoundly hypotensive with acute decompensation again in pie icer machine hours of the . Subsequently vasopressin added to pressor therapy. Will continue pressors to maintain maps around 65. Patient started to wake up and appeared to be in distress and was started on sedation with fentanyl and Versed will aim for RASS of 0 to negative2. Will monitor CBC and electrolyte panel closely. Lactic acidosis improving with current management. Will continue IV fluid hydration with LR at 100 mL an hour. Patient does have acute kidney injury on chronic kidney disease with associated hyperkalemia and due to ATN from septic shock. The patient has received treatment for acute hyperkalemia including rectal Kayexalate, nebulizer treatment, dextrose, insulin, calcium and bicarb. Patient had metabolic acidosis a but with ventilator changes to a.c./CMPVwith a drop in tidal volume to 500 increased rate to 20 ABGs improving. Repeat ABG has been ordered for a.m. and will follow. Initial chest x-ray postop demonstrated ET tube about 2 cm above the lisa order was given to pull back ET tube 1 cm and repeat chest x-rays been ordered for a.m.. Serial chest x-rays and ABGs have been ordered for vent management. Will aim for low tidal volume strategy to reduce barotrauma. Patient did have persistent hypoxia despite 100% FiO2 and subsequently PEEP was increased to 8. The patient has poor peripheral pulses but known history of peripheral artery disease. Will monitor pulses closely. 130 minute spent in critical care activities. Condition: Critical Prognosis: Guarded Patient's family does not have access to the patient's home medications at this time and will bring in a record in the morning. Due to a high probability of clinically significant, life threatening deterioration, the patient required my highest level of preparedness to intervene emergently and I personally spent this critical care time directly and personally managing the patient. This critical care time included obtaining a history; examining the patient; pulse oximetry; ordering and review of studies; arranging urgent treatment with development of a management plan; evaluation of patient's response to treatment; frequent reassessment; and discussions with other providers. It was exclusive of separately billable procedures and treating other patients and teaching time. Please see Assessment and Plan section and the rest of the note for further information on patient assessment and treatment. Quality VTE Prophylaxis VTE prophylaxis: mechanical ordered (SCDs) Hospitalist MIPS Advance Care Plan I have confirmed that the patient's Advanced Care Plan is present, code status is documented, or surrogate decision maker is listed in patient medical record.: Yes Medication Reconciliation The patient is not eligible for med reconciliation; the patient is in a emergent medical situation where delaying treatment would jeopardize the patients health.: Yes
[2024-04-22 23:36] LABS: Hematocrit 43.2 % (42.0-52.0); Hemoglobin 13.8 g/dL (14.0-18.0); Mean Corpuscular HGB Conc 31.9 g/dl (32-36); Mean Corpuscular Hemoglobin 28.9 pg (26-34); Mean Corpuscular Volume 90.6 fl (80-100); Platelet Count Result 303 k/mm3 (150-375); Red Blood Count 4.77 M/mm3 (4.6-6.20); Red Cell Distribution Width 14.1 % (11.5-14.5); White Blood Count 9.4 K/mm3 (4.5-10.0)
[2024-04-22 23:36] LABS: Hematocrit 42.4 % (42.0-52.0); Hemoglobin 13.7 g/dL (14.0-18.0); Mean Corpuscular HGB Conc 32.3 g/dl (32-36); Mean Corpuscular Hemoglobin 29.1 pg (26-34); Mean Corpuscular Volume 90.2 fl (80-100); Mean Platelet Volume 11.8 fl (7.4-10.4); Platelet Count Result 280 k/mm3 (150-375); Red Cell Distribution Width 14.1 % (11.5-14.5); White Blood Count 9.6 K/mm3 (4.5-10.0)
--- NOTE | 2024-04-22 23:46 | ADMGEN ---
This patient, Ludin Menon, was admitted to Intensive Care Unit-7. Patient/family oriented to hospital policies and general routines including ID bracelet, bed and alarms, visiting hours, pain management, procedures, bathroom and other care routines, personal items, smoking policy, room service/diet, and visiting hours. Information on how to activate the Rapid Response Team has been discussed. Patient/Family are encouraged to report perceived risks to care and to ask questions if they do not understand what they are told or what they should do.
[2024-04-22 23:48] LABS: INR 1.4; Prothrombin Time 17.5 Seconds (11.1-14.7)
[2024-04-22 23:49] LABS: Magnesium 1.8 mg/dL (1.6-2.3); Partial Thromboplastin Time 34.2 Seconds (22.3-36.8)
[2024-04-22 23:49] LABS: Alanine Aminotransferase 29 U/L (6-50); Albumin Level 3.1 g/dL (3.5-5.1); Alkaline Phosphatase 74 U/L (38-126); Anion Gap 15 mmol/L (4-12); Aspartate Amino Transferase 47 U/L (17-59); Blood Urea Nitrogen 63 mg/dL (9-20); Calcium 8.2 mg/dL (8.4-10.2); Carbon Dioxide 18 mmol/L (22-30); Chloride 105 mmol/L (98-107); Estimated CRCL calculation 20 ml/min; Estimated Glomerular Filt Rate 16; Glucose 89 mg/dL (65-110); Magnesium 1.8 mg/dL (1.6-2.3); Phosphorus 4.9 mg/dL (2.5-4.5); Potassium 5.4 mmol/L (3.4-5.0); Sodium 138 mmol/L (137-145)
[2024-04-22 23:50] LABS: Lactic Acid Reflex 2.2 mmol/L (0.7-2.0)
[2024-04-22 23:55] LABS: Fibrinogen 1021 mg/dl (215-510)
[2024-04-23] VITALS (63 sets, daily range): BP systolic 60–157; BP diastolic 41–96; PULSE 67–135; RESP 20–26; TEMP 36.6–38.1; O2SAT 95–99
[2024-04-23 00:03] LABS: D Dimer 7.51 ug/mL (<0.48)
[2024-04-23 00:05] LABS: Procalcitonin 67.5 ng/mL
[2024-04-23 00:11] LABS: Band Neutrophils Percent 24 % (0-6); Hypochromasia 1+; Lymphocytes Absolute Manual 2.63 K/mm3 (1.1-4.5); Monocytes Absolute Manual 0.56 K/mm3 (0.1-0.90); Monocytes Percent Manual 6 % (3-9); Neutrophils Percent Manual 42 % (46-73); Platelet Estimate Adequate (Adequate); Schistocytes None Seen; Total Cells Counted 100
[2024-04-23] MEDS: PANTOPRAZOLE SODIUM IV 80 MG in SODIUM CHLORIDE 0.9% IV 500 ML 50 MG IV CONT ×3 (00:17→21:25)
[2024-04-23] MEDS: FENTANYL 2,500MCG/NS250ML(*CRX 2,500 MCG/250 ML BAG IV CONT (00:18)
[2024-04-23] MEDS: FLUCONAZOLE 100 MG/NACL 50 ML 100 MG/50 ML BTL 50 MG IVPB ×2 (00:20→22:13)
[2024-04-23] MEDS: MIDAZOLAM 100MG/NS 100ML(*CRX) 100 MG/100 ML BAG IV CONT (00:20)
[2024-04-23] MEDS: LACTATED RINGERS 1,000 ML 100 ML IV CONT ×2 (00:23→12:38)
[2024-04-23] MEDS: PIPERACILLIN/TAZ 2.25G/NS 50ML 2.25 GM/50 ML BAG IVPB ×5 (01:00→23:51)
[2024-04-23] MEDS: VASOPRESSIN INJ 100 UNITS in DEXTROSE 5% 95 ML IV CONT (05:35)
[2024-04-23] MEDS: SODIUM BICARBONATE 8.4% 50 MEQ/50 ML SYRINGE IV PUSH ×3 (05:36→13:32)
[2024-04-23 05:47] LABS: Alveolar/Arterial O2 Gradient 300.6 mmHg; Base Excess ABG -0.8 mEq/l (+/-2.0); Carboxyhemoglobin 0.4 % THb (0-2.0); Fractional Inspired Oxygen 60 %; HCO3 ABG 23.2 mEq/l (22.0-26.0); Methemoglobin ABG 0.1 %THb (0-1.5); Oxygen Content ABG 19.3 %vol (16.0-22.0); Oxygen Saturation ABG 96.8 % (95.0-100.0); Oxyhemoglobin 96.3 % THb (90.0-100.0); PCO2 ABG 36.6 mmHg (35.0-45.0); PO2 ABG 86.9 mmHg (80.0-100.0); PO2 FiO2 Ratio Arterial Blood 1.45 %; Reduced Hemoglobin 3.2 %THb (0-5.0); Total Hemoglobin 14.2 g/dL (12.0-18.0)
[2024-04-23 05:48] LABS: Arterial Blood Gas PEEP 8 cmH2O; Arterial Blood Gas Tidal Volume 500 ml; Arterial Blood Gas Vent Mode CMV; Arterial Blood Gas Ventilator rate 20 /MIN; Device VENTILATOR; Site Drawn ARTLINE
[2024-04-23 05:52] LABS: Hematocrit 40.7 % (42.0-52.0); Hemoglobin 13.4 g/dL (14.0-18.0); Mean Corpuscular HGB Conc 32.9 g/dl (32-36); Mean Corpuscular Hemoglobin 29.3 pg (26-34); Mean Corpuscular Volume 88.9 fl (80-100); Platelet Count Result 301 k/mm3 (150-375); Red Blood Count 4.58 M/mm3 (4.6-6.20); Red Cell Distribution Width 14.1 % (11.5-14.5); White Blood Count 12.3 K/mm3 (4.5-10.0)
[2024-04-23 06:21] LABS: Alanine Aminotransferase 29 U/L (6-50); Alkaline Phosphatase 95 U/L (38-126); Anion Gap 10 mmol/L (4-12); Aspartate Amino Transferase 46 U/L (17-59); Bilirubin,Total 3.2 mg/dL (0.2-1.3); Blood Urea Nitrogen 68 mg/dL (9-20); Calcium 8.3 mg/dL (8.4-10.2); Carbon Dioxide 24 mmol/L (22-30); Chloride 104 mmol/L (98-107); Creatine Kinase 408 U/L (55-170); Estimated CRCL calculation 19 ml/min; Estimated Glomerular Filt Rate 15; Glucose 91 mg/dL (65-110); Magnesium 1.8 mg/dL (1.6-2.3); Phosphorus 3.8 mg/dL (2.5-4.5); Potassium 6.5 mmol/L (3.4-5.0); Sodium 138 mmol/L (137-145)
[2024-04-23 06:51] LABS: Anisocytosis 1+; Band Neutrophils Percent 18 % (0-6); Burr Cells 1+; Lymphocytes Absolute Manual 0.86 K/mm3 (1.1-4.5); Lymphocytes Percent Manual 7 % (18-44); Monocytes Absolute Manual 0.12 K/mm3 (0.1-0.90); Monocytes Percent Manual 1 % (3-9); Neutrophils Absolute Manual 11.31 K/mm3 (1.3-6.7); Neutrophils Percent Manual 74 % (46-73); Platelet Estimate Adequate (Adequate); Schistocytes None Seen; Total Cells Counted 100
[2024-04-23] MEDS: CALCIUM GLUC 1,000 MG/NS 50 ML 1,000 MG/50 ML BAG 100 MG IVPB ×2 (07:08→13:32)
[2024-04-23] MEDS: LACTATED RINGERS 1,000 ML 999 ML IV CONT ×2 (07:11→10:23)
[2024-04-23] MEDS: HYDROCORTISONE SODIUM SUCCINATE 100 MG/2 ML VIAL IV PUSH ×3 (07:11→21:23)
[2024-04-23] MEDS: INSULIN HUMAN REGULAR (*BKC) 100 UNITS/ML 10 UNITS IV PUSH ×2 (07:17→13:34)
[2024-04-23] MEDS: DEXTROSE 50% 25 GM/50 ML SYRINGE IV PUSH ×2 (07:17→13:32)
[2024-04-23] MEDS: NOREPINEPHRINE 8 MG/D5W 250 ML 8 MG/250 ML BAG 56.25 MG IV CONT (07:20)
[2024-04-23] MEDS: ALBUTEROL SULFATE NEB 2.5 MG/3 ML INH 15 MG INHALATION ×2 (07:27→13:47)
[2024-04-23] MEDS: ALBUMIN HUMAN 25% 25 GM/100 ML 100 ML IVPB ×4 (08:00→23:51)
[2024-04-23] MEDS: ENOXAPARIN 30 MG/0.3 ML SYRINGE SUB-Q (08:42)
--- NOTE | 2024-04-23 09:43 | P.CONIN_ITS ---
Assessment and Plan Assessment and plan (1) Acute respiratory failure: Code(s): J96.00 - Acute respiratory failure, unspecified whether with hypoxia or hypercapnia Status: Acute Assessment and Plan: 04/22: Remains intubated post surgery/anesthesia -will continue CMV mode of ventilation, peep of 8 and 60% FiO2 -start bronchodilators -sedated with fentanyl and Versed infusion, maintain RASS of 0 to -2, daily sedation vacation and SBT (2) Septic shock: Code(s): A41.9 - Sepsis, unspecified organism; R65.21 - Severe sepsis with septic shock Status: Acute Assessment and Plan: 04/22: Patient presented with abdominal pain, CT abdomen and pelvis revealed perforated gastric ulcer, free air in the abdomen. status post ex lap with open gastrostomy tube placement, repair of the large gastric ulcer with Clarence patch, ELSA drain -patient was hypotensive when he arrived to the ER, with systolic blood pressures in the 60s, was given 2.5 L IV fluids, started on the Levophed. Patient then went to the OR where he had the procedure, remained on Levophed, central line was inserted in the OR and patient was transferred to the ICU -upon arrival to the ICU patient required addition of vasopressin along with Levophed -04/23.: Additional 2 L IV fluids were given as patient's blood pressures were low in the 60s and 70s systolic, -Patient currently on vasopressin, Levophed, will maintain MAP > 65 mm Hg and SBP > 100 mmHg -started on stress dose steroids -patient currently on Zosyn and fluconazole per surgery -04/23: Blood cultures ordered (3) Acute kidney injury superimposed on stage 3b chronic kidney disease: Code(s): N17.9 - Acute kidney failure, unspecified; N18.32 - Chronic kidney disease, stage 3b Status: Acute Assessment and Plan: Patient presented with acute on chronic kidney disease -creatinine on admission was 4.40 (baseline creatinine is 1.2-1.4) -patient was given 2.5 L of IV fluids in the ER, -on maintenance IV fluids, LR at 100 mL/hr -04/23 give additional 2 L IV fluid bolus as patient was hypotensive and probably is third-spacing -will infuse albumin for intravascular volume expansion -continue to monitor urine output, renal function electrolytes (4) Perforated gastric ulcer: Qualifiers: Gastric ulcer chronicity: acute Qualified Code(s): K25.1 - Acute gastric ulcer with perforation Code(s): K25.5 - Chronic or unspecified gastric ulcer with perforation Status: Acute Assessment and Plan: 04/22: Patient presented with abdominal pain, CT abdomen and pelvis revealed perforated gastric ulcer, free air in the abdomen. status post ex lap with open gastrostomy tube placement, repair of the large gastric ulcer with Clarence patch, ELSA drain -surgery following -continue antibiotics as above -on Protonix infusion (5) Acute hyperkalemia: Code(s): E87.5 - Hyperkalemia Status: Acute Assessment and Plan: Acute hyperkalemia secondary to acute kidney injury -hyperkalemia has been treated -will repeat BMP at noon today Plan DVT prophylaxis: Lovenox Stress ulcer prophylaxis: Protonix infusion Nutrition: NPO Code Status: Full code, as discussed code status with 2 daughters Critical Care Time Spent: 55 minutes Discussed with 2 daughters in rounds and updated them with patient's condition and plan of care. I did update them regarding patient being intubated on mechanical ventilation, in septic shock, on 2 pressors, acute on chronic kidney disease, hyperkalemia. I discussed with them regarding code status to which they said they wanted everything to be done but the patient would not want to be in a vegetative state. Due to a high probability of clinically significant, life threatening deterioration, the patient required my highest level of preparedness to intervene emergently and I personally spent this critical care time directly and personally managing the patient. This critical care time included obtaining a history; examining the patient; pulse oximetry; ordering and review of studies; arranging urgent treatment with development of a management plan; evaluation of patient's response to treatment; frequent reassessment; and discussions with other providers. It was exclusive of separately billable procedures and treating other patients and teaching time. Please see Assessment and Plan section and the rest of the note for further information on patient assessment and treatment This dictation may have been done utilizing a voice recognition system. Attempts have been made to correct errors. However, there may be uncorrected grammatical, spelling, and recognitions errors present. Delivery Director Consult Note Consult date: 04/23/24 Reason for consult: Acute respiratory failure, abdominal pain, perforated gastric ulcer, 04/22: status post ex lap with open gastrostomy tube placement, repair of the large gastric ulcer with Clarence patch, ELSA drain HPI: Ludin Menon is a 78 year old male with past medical history peripheral arterial disease, chronic arthritis, essential hypertension, hyperlipidemia, umbilical hernia repair, perforated appendix resection in 2022 presented the ER via EMS with 3 days of abdominal pain, which was cramping in nature, along with abdominal distention. In the ER he was hypotensive tachycardic, diaphoretic. In the ER systolic blood pressures were in the 60s, was given 2.5 L of IV fluids in the ER, lactic acid was 5.4, 60% bandemia, WBC count of 8.6, hemoglobin of 14.7, platelets of 335. INR was 1.3, sodium 137, potassium 6.3, chloride 99, CO2 21, BUN 67, creatinine 4.15, lactic acid of 5.4, blood sugars of 112, total bilirubin was 1.4, LFTs were within normal limits. CTA chest abdomen and pelvis: Perforated viscus with a large amount of free air and fluid, with mural thickening in the distal stomach and multiple punctate foci of extraluminal air in this area for which site of perforation is suspected. 04/22: Patient underwent an ex lap with open G-tube placement, repair of large gastric ulcer with Clarence patch, placement of a GP drain. Operative report is not available at the time of my writing this note. Patient was started on Zosyn and fluconazole. Patient was transferred to the ICU for further management, at that time he was on Levophed. 04/23/2024: Patient seen and examined the ICU, remains intubated on CMV mode of ventilation, peep of 8, 60% FiO2. Also on Levophed at 23 mcg/min, vasopressin 0.04 units/min, phenylephrine 40 mcg/min. I have asked the bedside RN to bolus patient with 1 L LR, started patient on stress dose steroids. Urine output has been low, T-max of 100.4?. Lactic acid this morning is 3.0. Patient patient opens his eyes and follows simple command Review of Systems 2 Review of Systems: ROS unobtainable: Yes unobtainable due to endotracheal tube and unobtainable due to medical condition PMFSH Past Medical History Medical History (Updated 04/23/24 @ 10:57 by Albert Tony MD) PAD (peripheral artery disease) Acute perforated appendicitis RIC (acute kidney injury) Piriformis syndrome Trochanteric bursitis, right hip Lumbar stenosis Low Back Pain Arthritis Colon polyps (07/02/22) Umbilical hernia HTN (hypertension) Hypercholesterolemia Surgical History Surgical History History of appendectomy (06/2022) Perforated appemdix H/O Spinal surgery (1984) H/O umbilical hernia repair (2011) Hx of tonsillectomy Family History Family History Father Acute myocardial infarction Heart disease Alzheimer disease Mother Acute myocardial infarction Heart disease Alzheimer disease Social History Social History (Updated 04/22/24 @ 23:45 by Irma Reynoso DO) Social History: Code status: Full code Surrogate decision maker: Erika () Smoking status: Never smoker Second hand tobacco smoke exposure: Yes Alcohol intake: never Alcohol use details: Occasional Substance use: never Substance use type: does not use Lack of Transportation: No Lack of Food: Never True Current Housing: I Have Housing Concerned About Future Housing: No Difficulty Paying Gas/Electric Bills: No Difficulty Paying for Meds: No Currently Unemployed: No Education: Master's Degree or Higher Difficulty w/ Childcare or Family Care: No Living arrangements: with family Occupation/Education: retired Gender identity (if verbalized by the patient): Male Spiritual care concerns: No Agree to blood products: Yes Meds Home Medications and Allergies Home Medications ?Medication ?Instructions ?Recorded ?Confirmed ?Type aspirin 325 mg tablet 325 mg PO DAILY PRN fever 09/13/21 07/23/23 History fexofenadine 180 mg tablet 180 mg PO DAILY PRN contact 09/13/21 07/23/23 History dermititis gabapentin 300 mg capsule 600 mg PO HS 12/20/21 04/23/24 History hydrochlorothiazide 25 mg tablet See Rx Instructions .Route 07/23/23 07/23/23 History .COMPLEX PRN benzonatate 200 mg capsule 200 mg PO TID PRN cough #30 caps 10/13/23 Rx lisinopril 40 mg tablet See Rx Instructions .Route 11/09/23 04/23/24 Rx .COMPLEX #90 tabs furosemide 40 mg tablet 40 mg PO QAM #90 tabs 02/03/24 04/23/24 Rx tramadol 50 mg tablet 50 mg PO Q4H PRN pain #90 tabs 02/08/24 04/23/24 Rx diclofenac sodium 75 mg See Rx Instructions .Route 02/16/24 04/23/24 Rx tablet,delayed release .COMPLEX #180 tabs atorvastatin 20 mg tablet See Rx Instructions .Route 03/06/24 04/23/24 Rx .COMPLEX #90 tabs Allergies Allergy/AdvReac Type Severity Reaction Status Date / Time nickel Allergy Mild Other Verified 12/01/23 15:22 cephalexin AdvReac Severe Rash Verified 12/01/23 15:22 Vital Signs Vital Signs - 24 hr 04/22/24 17:16 04/22/24 17:24 04/22/24 17:32 Temperature 97.6 F Pulse Rate 98 90 79 Respiratory Rate 26 H 20 Blood Pressure 62/53 L 62/53 L 70/40 L Pulse Oximetry 90 90 Oxygen Delivery Nasal Cannula Oxygen Flow Rate 4 Fraction of Inspired Oxygen 04/22/24 17:37 04/22/24 17:44 04/22/24 17:55 Temperature Pulse Rate 93 80 101 H Respiratory Rate 18 24 H Blood Pressure 80/61 L 81/49 L 106/72 Pulse Oximetry Oxygen Delivery Oxygen Flow Rate Fraction of Inspired Oxygen 04/22/24 17:56 04/22/24 18:01 04/22/24 18:06 Temperature Pulse Rate 98 103 H 99 Respiratory Rate 20 24 H 20 Blood Pressure 126/76 120/74 Pulse Oximetry 99 95 Oxygen Delivery Oxygen Flow Rate Fraction of Inspired Oxygen 04/22/24 18:11 04/22/24 18:14 04/22/24 18:15 Temperature 97.7 F Pulse Rate 100 112 H 113 H Respiratory Rate 21 H 20 19 Blood Pressure 120/70 156/71 H 156/71 H Pulse Oximetry 98 Oxygen Delivery Oxygen Flow Rate Fraction of Inspired Oxygen 04/22/24 18:16 04/22/24 18:21 04/22/24 18:22 Temperature 97.9 F Pulse Rate 113 H 117 H 114 H Respiratory Rate 22 H 20 18 Blood Pressure 122/76 Pulse Oximetry 97 100 97 Oxygen Delivery Oxygen Flow Rate Fraction of Inspired Oxygen 04/22/24 18:25 04/22/24 18:30 04/22/24 18:36 Temperature 98.6 F Pulse Rate 112 H 113 H 110 H Respiratory Rate 20 19 Blood Pressure 100/72 103/72 156/79 H Pulse Oximetry 97 99 Oxygen Delivery Oxygen Flow Rate Fraction of Inspired Oxygen 04/22/24 18:36 04/22/24 18:40 04/22/24 18:46 Temperature 97.9 F Pulse Rate 112 H 111 H 114 H Respiratory Rate 20 16 19 Blood Pressure 104/72 106/84 111/80 Pulse Oximetry 97 99 99 Oxygen Delivery Oxygen Flow Rate Fraction of Inspired Oxygen 04/22/24 18:50 04/22/24 18:55 04/22/24 18:55 Temperature 97.6 F Pulse Rate 111 H 108 H 108 H Respiratory Rate 17 19 17 Blood Pressure 112/74 124/77 124/77 Pulse Oximetry 98 98 Oxygen Delivery Oxygen Flow Rate Fraction of Inspired Oxygen 04/22/24 19:00 04/22/24 19:31 04/22/24 22:35 Temperature 97.6 F Pulse Rate 110 H 112 H 105 H Respiratory Rate 18 18 20 Blood Pressure 116/90 116/90 Pulse Oximetry 96 96 96 Oxygen Delivery Mechanical Ventilation Oxygen Flow Rate Fraction of Inspired Oxygen 80 04/22/24 22:45 04/22/24 22:50 04/22/24 23:45 Temperature Pulse Rate 111 H 112 H 103 H Respiratory Rate Blood Pressure 140/64 87/46 L Pulse Oximetry 94 Oxygen Delivery Mechanical Ventilation Oxygen Flow Rate Fraction of Inspired Oxygen 100 04/23/24 00:00 04/23/24 00:00 04/23/24 00:00 Temperature 98 F Pulse Rate 105 H 104 H 104 H Respiratory Rate 20 20 Blood Pressure 109/54 L Pulse Oximetry 96 98 Oxygen Delivery Mechanical Ventilation Oxygen Flow Rate Fraction of Inspired Oxygen 80 04/23/24 00:18 04/23/24 00:20 04/23/24 00:45 Temperature Pulse Rate 105 H 105 H 106 H Respiratory Rate 20 20 20 Blood Pressure Pulse Oximetry Oxygen Delivery Oxygen Flow Rate Fraction of Inspired Oxygen 04/23/24 02:00 04/23/24 02:00 04/23/24 02:00 Temperature Pulse Rate 107 H 104 H 106 H Respiratory Rate 20 Blood Pressure 104/52 L Pulse Oximetry Oxygen Delivery Oxygen Flow Rate Fraction of Inspired Oxygen 04/23/24 02:00 04/23/24 02:05 04/23/24 03:15 Temperature 99.1 F Pulse Rate 106 H 107 H 108 H Respiratory Rate 20 Blood Pressure 104/52 L 86/46 L Pulse Oximetry 99 99 Oxygen Delivery Mechanical Ventilation Oxygen Flow Rate Fraction of Inspired Oxygen 80 04/23/24 03:45 04/23/24 04:00 04/23/24 04:00 Temperature Pulse Rate 110 H 119 H 105 H Respiratory Rate 20 20 Blood Pressure 82/46 L Pulse Oximetry 96 Oxygen Delivery Mechanical Ventilation Oxygen Flow Rate Fraction of Inspired Oxygen 80 04/23/24 04:00 04/23/24 04:00 04/23/24 04:00 Temperature 100 F H Pulse Rate 112 H 112 H Respiratory Rate 20 Blood Pressure 77/43 L Pulse Oximetry 96 Oxygen Delivery Oxygen Flow Rate Fraction of Inspired Oxygen 60 04/23/24 04:15 04/23/24 04:30 04/23/24 04:40 Temperature Pulse Rate 115 H 115 H 118 H Respiratory Rate Blood Pressure 85/46 L 84/45 L 77/44 L Pulse Oximetry Oxygen Delivery Oxygen Flow Rate Fraction of Inspired Oxygen 04/23/24 05:00 04/23/24 05:05 04/23/24 05:15 Temperature Pulse Rate 119 H 128 H 118 H Respiratory Rate Blood Pressure 82/50 L 77/46 L Pulse Oximetry 96 Oxygen Delivery Mechanical Ventilation Oxygen Flow Rate Fraction of Inspired Oxygen 60 04/23/24 05:34 04/23/24 05:35 04/23/24 06:00 Temperature Pulse Rate 124 H 124 H 127 H Respiratory Rate Blood Pressure 81/47 L 85/50 L Pulse Oximetry Oxygen Delivery Oxygen Flow Rate Fraction of Inspired Oxygen 04/23/24 06:00 04/23/24 07:00 04/23/24 07:20 Temperature 100.4 F H Pulse Rate 127 H 131 H 133 H Respiratory Rate 20 Blood Pressure 60/41 L 75/48 L 75/49 L Pulse Oximetry 95 Oxygen Delivery Oxygen Flow Rate Fraction of Inspired Oxygen 04/23/24 07:20 04/23/24 07:27 04/23/24 07:27 Temperature Pulse Rate 133 H 131 H 131 H Respiratory Rate 20 Blood Pressure 75/49 L Pulse Oximetry 95 Oxygen Delivery Mechanical Ventilation Oxygen Flow Rate Fraction of Inspired Oxygen 60 04/23/24 08:00 04/23/24 08:00 04/23/24 08:00 Temperature Pulse Rate 134 H 134 H 134 H Respiratory Rate 20 Blood Pressure 90/58 L 90/51 L Pulse Oximetry Oxygen Delivery Oxygen Flow Rate Fraction of Inspired Oxygen 04/23/24 08:00 04/23/24 08:00 04/23/24 08:48 Temperature 100.5 F H Pulse Rate 134 H 134 H 131 H Respiratory Rate 20 20 20 Blood Pressure 79/53 L Pulse Oximetry 95 Oxygen Delivery Oxygen Flow Rate Fraction of Inspired Oxygen Exam 2 Narrative: General: Intubated and sedated, in no acute distress HEENT:? Pupils equal and reactive, sclerae is clear ETT in place Neck:? Supple Respiratory:? Coarse breath sounds bilaterally, decreased at bases, adequate air entry, no wheezing Cardiac:? S1-S2 is normal, sinus tachycardia Abdomen:? Soft, nondistended, tender to palpation, hypoactive bowel sound Extremities:? Cool extremities, dopplerable pedal pulses Neuro:? Patient is intubated, sedated, opens eyes and follows simple command Skin:? Dry scaly skin - bilateral lower extremity Psych:? Unable to assess at this time Results Labs 04/23/24 05:40 04/23/24 05:40 Labs: Short CBC 04/22/24 04/22/24 04/22/24 Range/Units 17:42 20:27 23:28 WBC 8.6 8.9 9.4 (4.5-10.0) K/mm3 Hgb 14.7 D 14.3 13.8 L (14.0-18.0) g/dL Hct 46.1 45.0 43.2 (42.0-52.0) % Plt Count 335 295 303 (150-375) k/mm3 04/22/24 04/23/24 Range/Units 23:29 05:40 WBC 9.6 12.3 H (4.5-10.0) K/mm3 Hgb 13.7 L 13.4 L (14.0-18.0) g/dL Hct 42.4 40.7 L (42.0-52.0) % Plt Count 280 301 (150-375) k/mm3 BMP 04/22/24 04/22/24 04/22/24 17:42 17:44 20:27 Sodium 137 137 Potassium 6.3 H* 6.2 H* Chloride 99 102 Carbon Dioxide 21 L 20 L BUN 67 H D 62 H Creatinine 4.15 H 4.40 H 3.77 H Glucose 112 H 107 Calcium 9.4 8.3 L 03/14/25 03/15/25 23:28 05:40 Sodium 138 138 Potassium 5.4 H 6.5 H* Chloride 105 104 Carbon Dioxide 18 L 24 BUN 63 H 68 H Creatinine 3.71 H 3.99 H Glucose 89 91 Calcium 8.2 L 8.3 L Cardiac Enzymes 04/23/24 Range/Units 05:40 Total Creatine Kinase 408 H (55-170) U/L Liver Function 04/22/24 04/22/24 04/23/24 Range/Units 17:42 23:28 05:40 Total Bilirubin 1.4 H 3.0 H 3.2 H (0.2-1.3) mg/dL AST 35 47 46 (17-59) U/L ALT 27 29 29 (6-50) U/L Alkaline Phosphatase 99 74 95 (38-126) U/L Albumin 3.8 3.1 L 3.0 L (3.5-5.1) g/dL Quality VTE Prophylaxis VTE prophylaxis: pharmacologic ordered Hospitalist MIPS Advance Care Plan I have confirmed that the patient's Advanced Care Plan is present, code status is documented, or surrogate decision maker is listed in patient medical record.: Yes Medication Reconciliation I have utilized all available resources to obtain, update and review the patients current medications (includes all prescriptions, OTC, herbals, cannabis, and nutritional supplements).: Yes
[2024-04-23 09:51] LABS: Reflex Lactic Acid Yes or No Add Lactic
--- NOTE | 2024-04-23 10:15 | W.PM.PROC2 ---
Procedure Note - Detailed Date of Procedure 04/22/24 Pre-op Diagnosis Abdominal Pain, ruptured abdominal viscus and abdominal free air Post-op Diagnosis Other (Perforated antral gastric ulcer with severe peritonitis and abdominal contamination gastric contents) Procedure Performed Exploratory laparotomy with repair of antral gastric ulcer with omental Clarence patch. Placement of open gastrostomy tube. Surgeon Demarcus Moreno MD Winding Machine Operator Diane KING Anesthesia General Indications Patient is a 78-year-old gentleman who into the emergency room with complaints of was thought to be flu like symptoms for about 4 days. About 2 days ago was started having some increasing upper abdominal pain and increasing abdominal girth and distention. When he presented to the emergency room had severe abdominal pain and CT scan abdomen pelvis was performed showing a large amount abdominal free air as well as what appeared to be a perforated gastric or duodenal ulcer. Large amount of ascites was noted. He decompensated in the emergency room with hypotension and tachycardia. He was then given IV fluids and blood products as per the ER physician. Then taken emergently to the operating room for exploratory laparotomy. Findings The patient had a perforated gastric antral ulcer on the anterior wall along the distal lesser curve of the stomach. The ulcer was large measuring approximately 2.5x2cm. There was [id number] of gastric succus and contents aspirated from the abdomen on initial entry into the abdomen. There was severe peritonitis of the upper abdomen were all the gastric contents was noted. The gallbladder was distended and had staining from the gastric contents the wall was viable. The liver was viable as well. The remaining part of the stomach was viable. All the colon the small bowel distal to the ligament Treitz that was visualized appeared to be normal. There was no evidence of bowel obstruction. No bleeding from the ulcer was noted. Description of Procedure After informed consent was obtained from the patient and his family he was brought emergently to the operating room directly from the emergency room. He was placed supine on the operating table and then general endotracheal anesthesia was administered by anesthesia. A Bowman catheter was placed decompress the bladder. An attempt to place a nasogastric tube was initially unsuccessful. The abdomen was then widely prepped from the nipples to the pubis in the usual sterile fashion. A time-out was then performed correctly identifying the patient as well as procedure to be performed. He had already been given broad-spectrum IV antibiotics in the emergency room. I then proceeded to make a epigastric midline incision starting just below the xiphoid process extending almost all the way down to the umbilicus. Dissection was carried down through the subcutaneous tissue electrocautery until the midline fascia was encountered. I then incised the midline fascia and opened the peritoneum and there was a kwong of air as the pneumoperitoneum was released. There was a large amount of gastric contents which was mildly cloudy with some bile tinged but really particulates of food in all of the contamination. No hemoperitoneum was noted. I then opened the midline fascia the mesh the whole length of skin incision. A Merritt retractor was placed to aid with closure. I then proceeded to pack the small bowel and the transverse colon away with laparotomy packs and the right lobe of the liver was retracted with a sweetheart retractor to expose the distal stomach and 1st portion of the duodenum. In the anterior wall of the gastric antrum along the distal lesser curve of the stomach I found a large defect in the stomach wall. It measured approximately 2.5x2cm. It easily admitted my index finger into the lumen of the stomach and distally into the 1st portion of the duodenum and pylorus. There was no bleeding from the perforated ulcer. My assessment was that the defect was so large that an attempt at a modified Clarence patch with primary closure of the defect and then omental patch on top of the closure would not be possible. Therefore a traditional Clarence patch with omentum placed into the defect and sutured to the edges of the anterior wall the stomach was performed. The patient had generous amount of omentum. The ended omentum was actually adherent to an umbilical hernia sac which I could easily see and feel had no involvement of bowel with the hernia. I then proceeded to divide the omentum close to the hernia sac with the LigaSure energy device to mobilize the omentum. I then divided the attachments of the midportion of the omentum off of the mid transverse colon so that I could further mobilize the omental flap up to the defect in the antrum of the stomach. The omental flap easily reached without any tension. Then utilizing multiple 2-0 silk sutures I then performed coverage of the defect with the omentum getting approximated 1cm bite of the anterior gastric wall with a generous portion of the omentum. A portion of omentum was stuffed into the defect and secured circumferentially with the 2-0 silk sutures. When this was done drainage of gastric contents out of the defect was markedly reduced. The omentum flap appeared to be totally viable without evidence of ischemia. I then proceeded to irrigate out the abdomen with [id number] of warm sterile saline solution. When all this irrigation and aspiration of fluid was complete the fluid aspirated was relatively clear. Anesthesia tried many times to pass a nasogastric tube but could not get past a area in the esophagus which would not let the NG tube passed. Fearing further traumatization of the esophagus we abandoned trying to place a nasogastric tube. I then thought the next best thing would be to place a open gastrostomy tube so that we could at the very least decompress the stomach through a G-tube. The lateral anterior wall of the midportion of the gastric body easily reached the left upper abdominal wall. I then placed a 0 silk suture in a pursestring fashion on the anterior wall of the gastric body a couple cm away from the short gastric vessels. This was followed by a inner pursestring suture of 2-0 silk suture. I then passed a 24 [place] Bowman catheter through the left upper quadrant abdominal wall. I checked the integrity of the Bowman catheter balloon by insufflated the balloon with 15cc of sterile saline solution. The balloon was completely intact. In order to help facilitate further drainage from the Bowman catheter I was using as a gastrostomy tube I cut off the very tip of the tube and this portion the tube was passed off and discarded. I once more checked the balloon and this did not impair the integrity of the Bowman balloon. I then made a defect through the anterior gastric wall in the center of the to pursestrings sutures with electrocautery. Once I entered the lumen of the stomach I then spread with a he to enlarge the gastrotomy I then placed the 24 [place] Bowman catheter into the stomach. The 2 pursestring silk sutures were then tied down around the catheter. The Bowman balloon was then insufflated with 15cc of sterile saline solution. I then pulled up on the Bowman external to the abdominal wall so that the anterior wall of the body of the stomach was in approximation to the left upper quadrant abdominal wall. I then further secured the anterior wall the stomach to the peritoneum in this area with additional 3-0 silk sutures. I then proceeded to secure the gastrostomy to to the skin in left upper quadrant utilizing a 0 silk suture. I then placed 2 separate 19 [place] round Dashawn drain in the upper abdomen. One drain was placed from the right upper quadrant abdominal wall and this drain extended superior to the Clarence patch and tip of the drain was placed in the left upper quadrant underneath the body of the stomach. The 2nd 19 [place] round Dashawn drain was placed via the mid left abdominal wall and it was placed inferior to the omental patch and the tip of the drain extended to the area of Morison's pouch. Both drains were then secured at the skin level utilizing 3-0 nylon sutures. I then proceeded to close the abdomen utilizing looped #1 PDS suture started at each end of the incision and then run to the manager learning of the midportion of the incision. The 2 sutures were then tied together. There was no tension on the closure. The skin edges were then approximated utilizing skin tono. Incision was then cleaned and then sterile dressings were applied to the G-tube, both Dashawn drains, and the midline incision. At this point the anesthesiologist then placed a central line to have good venous access postoperatively. That procedure can be found in the documentation from anesthesia. The patient tolerated the procedure well no complications. All sponges, needles, and instrument counts were correct at the end procedure. EBL was _30__cc. The patient was the from the operating room to intensive care unit intubated and sedated in stable but critical condition. Implants 24 [place] Bowman catheter used for a gastrostomy tube. Estimated Blood Loss 30 Drains Yes (Nineteen [place] Dashawn drain x2 upper abdomen) Packing No Pathology None sent Complications No immediate complications Condition Critical Disposition ICU [facility] Billing Surgery - Charge Forward: Surgery Billing
[2024-04-23] MEDS: MINERAL OIL/WHITE PETROLATUM OINTMENT 1 APPLIC EACH EYE ×2 (10:30→20:05)
[2024-04-23 10:48] LABS: Lactic Acid 2.7 mmol/L (0.7-2.0)
[2024-04-23] MEDS: NOREPINEPHRINE 8 MG/D5W 250 ML 8 MG/250 ML BAG 37.5 MG IV CONT (12:38)
[2024-04-23 12:53] LABS: Anion Gap 12 mmol/L (4-12); Blood Urea Nitrogen 66 mg/dL (9-20); Calcium 8.3 mg/dL (8.4-10.2); Carbon Dioxide 22 mmol/L (22-30); Chloride 103 mmol/L (98-107); Estimated CRCL calculation 20 ml/min; Estimated Glomerular Filt Rate 15; Glucose 178 mg/dL (65-110); Sodium 137 mmol/L (137-145)
[2024-04-23] MEDS: SODIUM POLYSTYRENE SULFONONATE 15 GM/60 ML BTL 30 GM RECTAL (13:34)
[2024-04-23] MEDS: CENTRAL LINE FLUSH 10 ML IV PUSH ×2 (13:46→20:43)
[2024-04-23 13:48] LABS: Lactic Acid Reflex 1.7 mmol/L (0.7-2.0)
[2024-04-23 14:40] LABS: Glucose Point of Care 117 mg/dl (65-105)
[2024-04-23 15:57] LABS: MRSA (PCR) NOT DETECTED (NOT DETECTE)
--- NOTE | 2024-04-23 17:04 | WPDPN ---
Progress Note: A&P Assessment and Plan (1) Perforated gastric ulcer: Qualifiers: Gastric ulcer chronicity: acute Qualified Code(s): K25.1 - Acute gastric ulcer with perforation Code(s): K25.5 - Chronic or unspecified gastric ulcer with perforation Status: Acute Assessment and Plan: Status post exploratory laparotomy and repair with omental Clarence patch. Placement of open gastrostomy tube to allow decompression of the stomach. Unable to pass a nasogastric tube during surgery. Continue NPO status for now. Continue IV Protonix drip. Perforated ulcer most likely secondary to chronic use of diclofenac nonsteroidal anti-inflammatory medication. May need to consider starting TPN the next couple of days. (2) Acute kidney injury superimposed on stage 3b chronic kidney disease: Code(s): N17.9 - Acute kidney failure, unspecified; N18.32 - Chronic kidney disease, stage 3b Status: Acute Assessment and Plan: Acute kidney injury on top of chronic renal insufficiency. Creatinine has increased to 3.9 today. He is starting to make more urine however. Hopefully the creatinine will plateau and start to decrease and his kidneys will recover. (3) Acute respiratory failure: Code(s): J96.00 - Acute respiratory failure, unspecified whether with hypoxia or hypercapnia Status: Acute Assessment and Plan: FiO2 is 60% now. Patient remains on vent support. Management as per vice president media relations Subjective Date/time seen: 04/23/24 17:04 Interval history: Patient remains intubated and sedated on the ventilator. Current FiO2 is 60%. He is postop day 1 after exploratory laparotomy and repair of large anterior antral gastric perforated ulcer with omental Clarence patch. Placement of open gastrostomy tube. Patient remains on Levophed and vasopressin which are weaning down. He is starting to make some urine but his creatinine increased to 3.9. He had underlying renal insufficiency prior to this insult. Abdominal drains and G-tube remain in place. Exam GI: Other: Abdomen is soft and mildly distended. Midline incision is dressed and dry. No redness or drainage from the midline incision. Left upper quadrant gastrostomy tube in place with typical dark bilious drainage. Epigastric Dash[place] drains x2 output is relatively low with bile tinged fluid. Objective Data Vital Signs Vital Signs: Vital Signs - 24 hr 04/22/24 17:16 04/22/24 17:24 04/22/24 17:32 Temperature 36.4 C Pulse Rate 98 90 79 Respiratory Rate 26 H 20 Blood Pressure 62/53 L 62/53 L 70/40 L Pulse Oximetry 90 90 Oxygen Delivery Nasal Cannula Oxygen Flow Rate 4 Fraction of Inspired Oxygen 04/22/24 17:37 04/22/24 17:44 04/22/24 17:55 Temperature Pulse Rate 93 80 101 H Respiratory Rate 18 24 H Blood Pressure 80/61 L 81/49 L 106/72 Pulse Oximetry Oxygen Delivery Oxygen Flow Rate Fraction of Inspired Oxygen 04/22/24 17:56 04/22/24 18:01 04/22/24 18:06 Temperature Pulse Rate 98 103 H 99 Respiratory Rate 20 24 H 20 Blood Pressure 126/76 120/74 Pulse Oximetry 99 95 Oxygen Delivery Oxygen Flow Rate Fraction of Inspired Oxygen 04/22/24 18:11 04/22/24 18:14 04/22/24 18:15 Temperature 36.5 C Pulse Rate 100 112 H 113 H Respiratory Rate 21 H 20 19 Blood Pressure 120/70 156/71 H 156/71 H Pulse Oximetry 98 Oxygen Delivery Oxygen Flow Rate Fraction of Inspired Oxygen 04/22/24 18:16 04/22/24 18:21 04/22/24 18:22 Temperature 36.6 C Pulse Rate 113 H 117 H 114 H Respiratory Rate 22 H 20 18 Blood Pressure 122/76 Pulse Oximetry 97 100 97 Oxygen Delivery Oxygen Flow Rate Fraction of Inspired Oxygen 04/22/24 18:25 04/22/24 18:30 04/22/24 18:36 Temperature 37.0 C Pulse Rate 112 H 113 H 110 H Respiratory Rate 20 19 Blood Pressure 100/72 103/72 156/79 H Pulse Oximetry 97 99 Oxygen Delivery Oxygen Flow Rate Fraction of Inspired Oxygen 04/22/24 18:36 04/22/24 18:40 04/22/24 18:46 Temperature 36.6 C Pulse Rate 112 H 111 H 114 H Respiratory Rate 20 16 19 Blood Pressure 104/72 106/84 111/80 Pulse Oximetry 97 99 99 Oxygen Delivery Oxygen Flow Rate Fraction of Inspired Oxygen 04/22/24 18:50 04/22/24 18:55 04/22/24 18:55 Temperature 36.4 C Pulse Rate 111 H 108 H 108 H Respiratory Rate 17 19 17 Blood Pressure 112/74 124/77 124/77 Pulse Oximetry 98 98 Oxygen Delivery Oxygen Flow Rate Fraction of Inspired Oxygen 04/22/24 19:00 04/22/24 19:31 04/22/24 22:35 Temperature 36.4 C Pulse Rate 110 H 112 H 105 H Respiratory Rate 18 18 20 Blood Pressure 116/90 116/90 Pulse Oximetry 96 96 96 Oxygen Delivery Mechanical Ventilation Oxygen Flow Rate Fraction of Inspired Oxygen 80 04/22/24 22:45 04/22/24 22:50 04/22/24 23:45 Temperature Pulse Rate 111 H 112 H 103 H Respiratory Rate Blood Pressure 140/64 87/46 L Pulse Oximetry 94 Oxygen Delivery Mechanical Ventilation Oxygen Flow Rate Fraction of Inspired Oxygen 100 04/23/24 00:00 04/23/24 00:00 04/23/24 00:00 Temperature 36.6 C Pulse Rate 105 H 104 H 104 H Respiratory Rate 20 20 Blood Pressure 109/54 L Pulse Oximetry 96 98 Oxygen Delivery Mechanical Ventilation Oxygen Flow Rate Fraction of Inspired Oxygen 80 04/23/24 00:18 04/23/24 00:20 04/23/24 00:45 Temperature Pulse Rate 105 H 105 H 106 H Respiratory Rate 20 20 20 Blood Pressure Pulse Oximetry Oxygen Delivery Oxygen Flow Rate Fraction of Inspired Oxygen 04/23/24 02:00 04/23/24 02:00 04/23/24 02:00 Temperature Pulse Rate 107 H 104 H 106 H Respiratory Rate 20 Blood Pressure 104/52 L Pulse Oximetry Oxygen Delivery Oxygen Flow Rate Fraction of Inspired Oxygen 04/23/24 02:00 04/23/24 02:05 04/23/24 03:15 Temperature 37.3 C Pulse Rate 106 H 107 H 108 H Respiratory Rate 20 Blood Pressure 104/52 L 86/46 L Pulse Oximetry 99 99 Oxygen Delivery Mechanical Ventilation Oxygen Flow Rate Fraction of Inspired Oxygen 80 04/23/24 03:45 04/23/24 04:00 04/23/24 04:00 Temperature Pulse Rate 110 H 119 H 105 H Respiratory Rate 20 20 Blood Pressure 82/46 L Pulse Oximetry 96 Oxygen Delivery Mechanical Ventilation Oxygen Flow Rate Fraction of Inspired Oxygen 80 04/23/24 04:00 04/23/24 04:00 04/23/24 04:00 Temperature 37.7 C H Pulse Rate 112 H 112 H Respiratory Rate 20 Blood Pressure 77/43 L Pulse Oximetry 96 Oxygen Delivery Oxygen Flow Rate Fraction of Inspired Oxygen 60 04/23/24 04:15 04/23/24 04:30 04/23/24 04:40 Temperature Pulse Rate 115 H 115 H 118 H Respiratory Rate Blood Pressure 85/46 L 84/45 L 77/44 L Pulse Oximetry Oxygen Delivery Oxygen Flow Rate Fraction of Inspired Oxygen 04/23/24 05:00 04/23/24 05:05 04/23/24 05:15 Temperature Pulse Rate 119 H 128 H 118 H Respiratory Rate Blood Pressure 82/50 L 77/46 L Pulse Oximetry 96 Oxygen Delivery Mechanical Ventilation Oxygen Flow Rate Fraction of Inspired Oxygen 60 04/23/24 05:34 04/23/24 05:35 04/23/24 06:00 Temperature Pulse Rate 124 H 124 H 127 H Respiratory Rate Blood Pressure 81/47 L 85/50 L Pulse Oximetry Oxygen Delivery Oxygen Flow Rate Fraction of Inspired Oxygen 04/23/24 06:00 04/23/24 07:00 04/23/24 07:20 Temperature 38.0 C H Pulse Rate 127 H 131 H 133 H Respiratory Rate 20 Blood Pressure 60/41 L 75/48 L 75/49 L Pulse Oximetry 95 Oxygen Delivery Oxygen Flow Rate Fraction of Inspired Oxygen 04/23/24 07:20 04/23/24 07:27 04/23/24 07:27 Temperature Pulse Rate 133 H 131 H 131 H Respiratory Rate 20 Blood Pressure 75/49 L Pulse Oximetry 95 Oxygen Delivery Mechanical Ventilation Oxygen Flow Rate Fraction of Inspired Oxygen 60 04/23/24 08:00 04/23/24 08:00 04/23/24 08:00 Temperature Pulse Rate 134 H 134 H 134 H Respiratory Rate 20 Blood Pressure 90/58 L 90/51 L Pulse Oximetry Oxygen Delivery Oxygen Flow Rate Fraction of Inspired Oxygen 04/23/24 08:00 04/23/24 08:00 04/23/24 08:00 Temperature 38.1 C H Pulse Rate 134 H 134 H 135 H Respiratory Rate 20 20 Blood Pressure 79/53 L Pulse Oximetry 95 Oxygen Delivery Oxygen Flow Rate Fraction of Inspired Oxygen 04/23/24 08:00 04/23/24 08:48 04/23/24 10:00 Temperature Pulse Rate 131 H 129 H Respiratory Rate 20 Blood Pressure 121/66 Pulse Oximetry Oxygen Delivery Oxygen Flow Rate Fraction of Inspired Oxygen 60 04/23/24 10:00 04/23/24 10:00 04/23/24 10:00 Temperature Pulse Rate 129 H 129 H 129 H Respiratory Rate 20 20 Blood Pressure 121/66 Pulse Oximetry Oxygen Delivery Oxygen Flow Rate Fraction of Inspired Oxygen 04/23/24 10:00 04/23/24 10:00 04/23/24 10:30 Temperature 37.7 C H Pulse Rate 129 H 129 H 121 H Respiratory Rate 20 Blood Pressure 121/66 141/73 H Pulse Oximetry 96 Oxygen Delivery Oxygen Flow Rate Fraction of Inspired Oxygen 04/23/24 10:35 04/23/24 11:00 04/23/24 12:00 Temperature Pulse Rate 114 H 117 H Respiratory Rate Blood Pressure 138/72 Pulse Oximetry 97 Oxygen Delivery Mechanical Ventilation Oxygen Flow Rate Fraction of Inspired Oxygen 60 60 04/23/24 12:00 04/23/24 12:00 04/23/24 12:00 Temperature Pulse Rate 119 H 119 H 119 H Respiratory Rate 20 Blood Pressure 125/65 125/65 Pulse Oximetry Oxygen Delivery Oxygen Flow Rate Fraction of Inspired Oxygen 04/23/24 12:00 04/23/24 12:00 04/23/24 12:05 Temperature 37.5 C Pulse Rate 119 H 119 H 118 H Respiratory Rate 20 20 Blood Pressure 125/65 132/67 Pulse Oximetry 96 Oxygen Delivery Oxygen Flow Rate Fraction of Inspired Oxygen 04/23/24 12:10 04/23/24 12:15 04/23/24 12:30 Temperature Pulse Rate 119 H 118 H 117 H Respiratory Rate Blood Pressure 135/70 136/70 137/78 Pulse Oximetry Oxygen Delivery Oxygen Flow Rate Fraction of Inspired Oxygen 04/23/24 12:38 04/23/24 12:38 04/23/24 12:45 Temperature Pulse Rate 114 H 114 H 117 H Respiratory Rate Blood Pressure 140/96 H 140/96 H 110/61 Pulse Oximetry Oxygen Delivery Oxygen Flow Rate Fraction of Inspired Oxygen 04/23/24 13:47 04/23/24 13:47 04/23/24 14:00 Temperature Pulse Rate 109 H 109 H 107 H Respiratory Rate 20 Blood Pressure 142/67 H Pulse Oximetry 98 Oxygen Delivery Mechanical Ventilation Oxygen Flow Rate Fraction of Inspired Oxygen 60 04/23/24 14:00 04/23/24 14:00 04/23/24 14:00 Temperature Pulse Rate 107 H 107 H 107 H Respiratory Rate 20 20 Blood Pressure 142/67 H Pulse Oximetry Oxygen Delivery Oxygen Flow Rate Fraction of Inspired Oxygen 04/23/24 14:05 04/23/24 14:10 04/23/24 14:15 Temperature Pulse Rate 106 H 111 H 119 H Respiratory Rate Blood Pressure 143/67 H 153/87 H 135/68 Pulse Oximetry Oxygen Delivery Oxygen Flow Rate Fraction of Inspired Oxygen 04/23/24 14:20 04/23/24 14:25 04/23/24 14:30 Temperature Pulse Rate 117 H 116 H 114 H Respiratory Rate Blood Pressure 132/64 140/67 138/63 Pulse Oximetry Oxygen Delivery Oxygen Flow Rate Fraction of Inspired Oxygen Intake/Output Intake/Output: Intake & Output 04/20/24 04/21/24 04/22/24 04/23/24 23:59 23:59 23:59 23:59 Intake Total 3966.5 3558.5 Output Total 475 Balance 3966.5 3083.5 Meds/Results Medications: Active Medications Generic Name Dose Route Start Last Admin Trade Name Freq PRN Reason Stop Dose Admin Dextrose 12.5 gm 04/22/24 23:06 Dextrose 50% 25 Gm/50 Ml Syringe IV PUSH PRN PRN Hypoglycemia Protocol Enoxaparin Sodium 30 mg 04/23/24 09:00 04/23/24 08:42 Enoxaparin 30 Mg/0.3 Ml Syringe SUB-Q 30 mg DAILY ROSY Administration Glucagon 1 mg 04/22/24 23:06 Glucagon For Inj 1 Mg Vial IM PRN PRN Hypoglycemia Protocol Glucose 15 gm 04/22/24 23:06 Glucose Oral Gel 15 Gm Of Glucse In 37.5 Gm Tube PO PRN PRN Hypoglycemia Protocol Hydrocortisone Sodium Succinate 100 mg 04/23/24 14:00 04/23/24 13:35 Hydrocortisone Sodium Succinate 100 Mg/2 Ml Vial IV PUSH 100 mg Q8HR ROSY Administration Norepinephrine Bitartrate 8 mg in 250 mls @ 37.5 mls/hr 04/22/24 17:55 04/23/24 14:30 Levophed 8 Mg/D5w 250 Ml IV CONT 15 mcg/min .Q6H40M ROSY 28.13 mls/hr Titration Protocol 20 MCG/MIN Piperacillin Sod/Tazobactam Sod 2.25 gm in 50 mls @ 100 mls/hr 04/23/24 00:00 04/23/24 13:45 Zosyn 2.25 Gm/Ns 50 Ml IVPB Infused Q6HR ROSY Infusion Fluconazole/Dextrose 100 mg in 50 mls @ 50 mls/hr 04/22/24 22:00 04/23/24 07:10 Diflucan 100 Mg/Nacl 50 Ml IVPB Infused Q24H ROSY Infusion Pantoprazole Sodium 80 mg/ 500 mls @ 50 mls/hr 04/22/24 22:00 04/23/24 10:44 Sodium Chloride IV CONT 50 mls/hr .Q10H ROSY Administration Fentanyl Citrate 2,500 mcg in 250 mls @ 5 mls/hr 04/22/24 23:10 04/23/24 14:00 Fentanyl 2,500 Mcg/Ns 250 Ml IV CONT 50 mcg/hr .Q50H ROSY 5 mls/hr Titration Protocol 50 MCG/HR Midazolam HCl 100 mg in 100 mls @ 2 mls/hr 04/22/24 23:10 04/23/24 14:00 Versed 100 Mg/Ns 100 Ml IV CONT 2 mg/hr .Q50H ROSY 2 mls/hr Titration Protocol 2 MG/HR Dextrose 1,000 mls @ 100 mls/hr 04/22/24 23:06 Dextrose 5% 1,000 Ml IVPB PRN PRN Hypoglycemia Protocol Lactated Ringer's 1,000 mls @ 100 mls/hr 04/22/24 23:55 04/23/24 12:38 Lr - Lactated Ringers Iv IV CONT 100 mls/hr .Q10H ROSY Administration Vasopressin 100 units/ 100 mls @ 2.4 mls/hr 04/23/24 05:05 04/23/24 14:00 Dextrose IV CONT 0.04 units/min .[id number] ROSY 2.4 mls/hr Titration Protocol 0.04 UNITS/MIN Phenylephrine HCl 50 mg/ 250 ml in 250 mls @ 12 mls/hr 04/23/24 07:15 04/23/24 07:30 Dextrose IV CONT Not Given .[id number] ROSY Protocol 40 MCG/MIN Albumin Human 100 mls @ 60 mls/hr 04/23/24 08:00 04/23/24 14:34 Albutein IVPB Infused Q6HR ROSY Infusion Ipratropium [place] 0.5 mg 04/23/24 14:00 04/23/24 13:47 Ipratropium Br 0.02% Inh Soln 0.5 Mg/2.5 Ml Vial INHALATION Not Given Q6HRT ROSY Levalbuterol HCl 0.63 mg 04/23/24 14:00 04/23/24 13:47 Levalbuterol Neb 1.25 Mg/3 Ml INHALATION Not Given Q6HRT ROSY Midazolam HCl 2 mg 04/22/24 23:06 Midazolam Hcl (*Crx) 2 Mg/2 Ml Vial IV PUSH Q5M PRN ventilator asynchrony Morphine Sulfate 4 mg 04/22/24 22:02 Morphine Sulfate (*Crx) 4 Mg/Ml Inj IV PUSH Q3H PRN Pain Rated 7-10 Multi-Ingred Cream/Lotion/Oil/Oint 1 applic 04/23/24 09:00 04/23/24 10:30 Mineral Oil/White Petrolatum Ointment EACH EYE 1 applic Q12HR ROSY Administration Sodium Chloride 10 ml 04/23/24 14:00 04/23/24 13:46 Central Line Flush IV PUSH 10 ml Q8HR ROSY Administration Sodium Chloride 20 ml 04/23/24 10:16 Central Line Flush IV PUSH PRN PRN after blood draws Vancomycin HCl 1 each 04/22/24 21:03 Vancomycin For Acute Kidney Injury IVPB PRN PRN Vancomycin Protocol Radiology Results: ITS Impressions Chest/Abdomen/Pelvis CTA 04/22/24 18:10 IMPRESSION: Perforated viscus with a large amount of free air and fluid, with mural thickening in the distal stomach and multiple punctate foci of extraluminal air in this area for which site of perforation is suspected. Chest X-Ray 04/23/24 07:13 Impression: Small right pleural effusion with probable right basilar atelectasis. Correlate clinically for pneumonia. Support tubes, as above. Labs Labs: Laboratory Results - last 24 hr 04/22/24 04/22/24 04/22/24 17:42 17:43 17:44 WBC 8.6 RBC 4.97 Hgb 14.7 D Hct 46.1 MCV 92.8 MCH 29.6 MCHC 31.9 L RDW 13.7 Plt Count 335 MPV 12.4 H Immature Gran % (Auto) Not Reportable Neut % (Auto) Not Reportable Lymph % (Auto) Not Reportable [place] % (Auto) Not Reportable Eos % (Auto) Not Reportable Baso % (Auto) Not Reportable Lymph # (Auto) Not Reportable [place] # (Auto) Not Reportable Eos # (Auto) Not Reportable Baso # (Auto) Not Reportable Abs Immat Gran (auto) Not Reportable Absolute Neuts (auto) Not Reportable Absolute Nucleated RBC Not Reportable Total Counted 100 Neutrophils % (Manual) 23 L Band Neutrophils % 60 H Lymphocytes % (Manual) 12.0 L Monocytes % (Manual) 2 L Metamyelocytes % 3 Nucleated RBC % Not Reportable Abs Neuts (Manual) 7.13 H Abs Lymphs (Manual) 1.03 L Abs Monocytes (Manual) 0.17 Platelet Estimate Adequate Hypochromasia 1+ Anisocytosis [place] Cells Schistocytes None seen PT 16.9 H INR 1.3 APTT 30.7 Fibrinogen 1164 H D-Dimer 7.40 H Puncture Site ABG pH ABG pCO2 ABG pO2 ABG PO2/FiO2 Ratio ABG HCO3 ABG O2 Saturation ABG O2 Content ABG Base Excess A-a Gradient Oxyhemoglobin Carboxyhemoglobin Methemoglobin Reduced Hemoglobin Total Hemoglobin O2 Delivery Device O2 Liters/Min Minute Volume Vent Rate Vent Mode FiO2 Tidal Volume PEEP Peak Inspir Pressure Pressure Support Sodium 137 Potassium 6.3 H* Chloride 99 Carbon Dioxide 21 L Anion Gap 17 H BUN 67 H D Creatinine 4.15 H 4.40 H Estim Creat Clear Calc 18 17 Estimated GFR 14 L 13 L Glucose 112 H POC Capillary Glucose Lactic Acid 5.4 H* Calcium 9.4 Phosphorus Magnesium 2.1 Total Bilirubin 1.4 H AST 35 ALT 27 Alkaline Phosphatase 99 Total Creatine Kinase Total Protein 7.0 Albumin 3.8 Procalcitonin Nasal MRSA (PCR) Blood Type A Positive Antibody Screen Negative Crossmatch See Detail 04/22/24 04/22/24 04/22/24 20:27 21:25 23:08 WBC 8.9 RBC 4.90 Hgb 14.3 Hct 45.0 MCV 91.8 MCH 29.2 MCHC 31.8 L RDW 14.0 Plt Count 295 MPV 12.5 H Immature Gran % (Auto) Neut % (Auto) Lymph % (Auto) [place] % (Auto) Eos % (Auto) Baso % (Auto) Lymph # (Auto) [place] # (Auto) Eos # (Auto) Baso # (Auto) Abs Immat Gran (auto) Absolute Neuts (auto) Absolute Nucleated RBC Total Counted Neutrophils % (Manual) Band Neutrophils % Lymphocytes % (Manual) Monocytes % (Manual) Metamyelocytes % Nucleated RBC % Abs Neuts (Manual) Abs Lymphs (Manual) Abs Monocytes (Manual) Platelet Estimate Hypochromasia Anisocytosis Fredy Cells Schistocytes PT INR APTT Fibrinogen D-Dimer Puncture Site Not Reportable Right radial Artline ABG pH 7.162 L* 7.243 L* 7.303 L ABG pCO2 61.3 H* 49.9 H 42.8 ABG pO2 190.0 H 168.0 H 107.7 H ABG PO2/FiO2 Ratio > 0.00 1.68 1.08 ABG HCO3 21.5 L 21.0 L 20.7 L ABG O2 Saturation 98.9 98.8 97.5 ABG O2 Content 21.0 19.6 20.0 ABG Base Excess -8.1 -6.5 -5.4 A-a Gradient < 0.0 495.1 562.5 Oxyhemoglobin 98.0 97.9 97.0 Carboxyhemoglobin Methemoglobin Reduced Hemoglobin Total Hemoglobin 15.0 14.0 14.6 O2 Delivery Device Not Reportable Ventilator Ventilator O2 Liters/Min Not Reportable Not Reportable Not Reportable Minute Volume Not Reportable Not Reportable Vent Rate 12 20 Vent Mode Pressure control Cmv FiO2 21 100 100 Tidal Volume 500 500 PEEP Not Reportable 8 Peak Inspir Pressure Not Reportable Not Reportable Pressure Support Not Reportable Not Reportable Sodium 137 Potassium 6.2 H* Chloride 102 Carbon Dioxide 20 L Anion Gap 15 H BUN 62 H Creatinine 3.77 H Estim Creat Clear Calc 20 Estimated GFR 16 L Glucose 107 POC Capillary Glucose Lactic Acid Calcium 8.3 L Phosphorus Magnesium Total Bilirubin AST ALT Alkaline Phosphatase Total Creatine Kinase Total Protein Albumin Procalcitonin Nasal MRSA (PCR) Blood Type Antibody Screen Crossmatch 04/22/24 04/22/24 04/22/24 23:27 23:28 23:29 WBC 9.4 9.6 RBC 4.77 4.70 Hgb 13.8 L 13.7 L Hct 43.2 42.4 MCV 90.6 90.2 MCH 28.9 29.1 MCHC 31.9 L 32.3 RDW 14.1 14.1 Plt Count 303 280 MPV 12.0 H 11.8 H Immature Gran % (Auto) Not Reportable Neut % (Auto) Not Reportable Lymph % (Auto) Not Reportable [place] % (Auto) Not Reportable Eos % (Auto) Not Reportable Baso % (Auto) Not Reportable Lymph # (Auto) Not Reportable [place] # (Auto) Not Reportable Eos # (Auto) Not Reportable Baso # (Auto) Not Reportable Abs Immat Gran (auto) Not Reportable Absolute Neuts (auto) Not Reportable Absolute Nucleated RBC Not Reportable Total Counted 100 Neutrophils % (Manual) 42 L Band Neutrophils % 24 H Lymphocytes % (Manual) 28.0 Monocytes % (Manual) 6 Metamyelocytes % Nucleated RBC % Not Reportable Abs Neuts (Manual) 6.20 Abs Lymphs (Manual) 2.63 Abs Monocytes (Manual) 0.56 Platelet Estimate Adequate Hypochromasia 1+ Anisocytosis [place] Cells Schistocytes None seen PT 17.5 H INR 1.4 APTT 34.2 Fibrinogen 1021 H D-Dimer 7.51 H Puncture Site ABG pH ABG pCO2 ABG pO2 ABG PO2/FiO2 Ratio ABG HCO3 ABG O2 Saturation ABG O2 Content ABG Base Excess A-a Gradient Oxyhemoglobin Carboxyhemoglobin Methemoglobin Reduced Hemoglobin Total Hemoglobin O2 Delivery Device O2 Liters/Min Minute Volume Vent Rate Vent Mode FiO2 Tidal Volume PEEP Peak Inspir Pressure Pressure Support Sodium 138 Potassium 5.4 H Chloride 105 Carbon Dioxide 18 L Anion Gap 15 H BUN 63 H Creatinine 3.71 H Estim Creat Clear Calc 20 Estimated GFR 16 L Glucose 89 POC Capillary Glucose Lactic Acid 2.2 H Calcium 8.2 L Phosphorus 4.9 H Magnesium 1.8 1.8 Total Bilirubin 3.0 H AST 47 ALT 29 Alkaline Phosphatase 74 Total Creatine Kinase Total Protein 6.0 L Albumin 3.1 L Procalcitonin 67.5 Nasal MRSA (PCR) Blood Type Antibody Screen Crossmatch 04/23/24 04/23/24 04/23/24 05:40 07:46 10:30 WBC 12.3 H RBC 4.58 L Hgb 13.4 L Hct 40.7 L MCV 88.9 MCH 29.3 MCHC 32.9 RDW 14.1 Plt Count 301 MPV 12.0 H Immature Gran % (Auto) Not Reportable Neut % (Auto) Not Reportable Lymph % (Auto) Not Reportable [place] % (Auto) Not Reportable Eos % (Auto) Not Reportable Baso % (Auto) Not Reportable Lymph # (Auto) Not Reportable [place] # (Auto) Not Reportable Eos # (Auto) Not Reportable Baso # (Auto) Not Reportable Abs Immat Gran (auto) Not Reportable Absolute Neuts (auto) Not Reportable Absolute Nucleated RBC Not Reportable Total Counted 100 Neutrophils % (Manual) 74 H Band Neutrophils % 18 H Lymphocytes % (Manual) 7 L Monocytes % (Manual) 1 L Metamyelocytes % Nucleated RBC % Not Reportable Abs Neuts (Manual) 11.31 H Abs Lymphs (Manual) 0.86 L Abs Monocytes (Manual) 0.12 Platelet Estimate Adequate Hypochromasia Anisocytosis 1+ Fredy Cells 1+ Schistocytes None seen PT INR APTT Fibrinogen D-Dimer Puncture Site Artline ABG pH 7.420 ABG pCO2 36.6 ABG pO2 86.9 ABG PO2/FiO2 Ratio 1.45 ABG HCO3 23.2 ABG O2 Saturation 96.8 ABG O2 Content 19.3 ABG Base Excess -0.8 A-a Gradient 300.6 Oxyhemoglobin 96.3 Carboxyhemoglobin 0.4 Methemoglobin 0.1 Reduced Hemoglobin 3.2 Total Hemoglobin 14.2 O2 Delivery Device Ventilator O2 Liters/Min Not Reportable Minute Volume Not Reportable Vent Rate 20 Vent Mode Cmv FiO2 60 Tidal Volume 500 PEEP 8 Peak Inspir Pressure Not Reportable Pressure Support Not Reportable Sodium 138 Potassium 6.5 H* Chloride 104 Carbon Dioxide 24 Anion Gap 10 BUN 68 H Creatinine 3.99 H Estim Creat Clear Calc 19 Estimated GFR 15 L Glucose 91 POC Capillary Glucose Lactic Acid 3.0 H 2.7 H Calcium 8.3 L Phosphorus 3.8 Magnesium 1.8 Total Bilirubin 3.2 H AST 46 ALT 29 Alkaline Phosphatase 95 Total Creatine Kinase 408 H Total Protein 6.0 L Albumin 3.0 L Procalcitonin Nasal MRSA (PCR) Blood Type Antibody Screen Crossmatch 04/23/24 04/23/24 04/23/24 12:30 13:24 13:30 WBC RBC Hgb Hct MCV MCH MCHC RDW Plt Count MPV Immature Gran % (Auto) Neut % (Auto) Lymph % (Auto) [place] % (Auto) Eos % (Auto) Baso % (Auto) Lymph # (Auto) [place] # (Auto) Eos # (Auto) Baso # (Auto) Abs Immat Gran (auto) Absolute Neuts (auto) Absolute Nucleated RBC Total Counted Neutrophils % (Manual) Band Neutrophils % Lymphocytes % (Manual) Monocytes % (Manual) Metamyelocytes % Nucleated RBC % Abs Neuts (Manual) Abs Lymphs (Manual) Abs Monocytes (Manual) Platelet Estimate Hypochromasia Anisocytosis Fred[place] Cells Schistocytes PT INR APTT Fibrinogen D-Dimer Puncture Site ABG pH ABG pCO2 ABG pO2 ABG PO2/FiO2 Ratio ABG HCO3 ABG O2 Saturation ABG O2 Content ABG Base Excess A-a Gradient Oxyhemoglobin Carboxyhemoglobin Methemoglobin Reduced Hemoglobin Total Hemoglobin O2 Delivery Device O2 Liters/Min Minute Volume Vent Rate Vent Mode FiO2 Tidal Volume PEEP Peak Inspir Pressure Pressure Support Sodium 137 Potassium 6.0 H* Chloride 103 Carbon Dioxide 22 Anion Gap 12 BUN 66 H Creatinine 3.86 H Estim Creat Clear Calc 20 Estimated GFR 15 L Glucose 178 H POC Capillary Glucose 117 H Lactic Acid 1.7 Calcium 8.3 L Phosphorus Magnesium Total Bilirubin AST ALT Alkaline Phosphatase Total Creatine Kinase Total Protein Albumin Procalcitonin Nasal MRSA (PCR) Not detected Blood Type Antibody Screen Crossmatch
[2024-04-23 19:11] LABS: Anion Gap 11 mmol/L (4-12); Blood Urea Nitrogen 67 mg/dL (9-20); Calcium 8.6 mg/dL (8.4-10.2); Carbon Dioxide 25 mmol/L (22-30); Chloride 102 mmol/L (98-107); Estimated CRCL calculation 20 ml/min; Estimated Glomerular Filt Rate 15; Glucose 238 mg/dL (65-110); Potassium 5.2 mmol/L (3.4-5.0); Sodium 138 mmol/L (137-145)
[2024-04-23 19:19] LABS: Vancomycin Trough 9.2 ug/mL (10.0-20.0)
[2024-04-23] MEDS: VANCOMYCIN 1,750 MG/NS 500 ML 1,750 MG/500 ML BAG 250 MG IVPB (20:04)
[2024-04-23] MEDS: LEVALBUTEROL NEB 1.25 MG/3 ML 0.63 MG INHALATION (20:53)
[2024-04-23] MEDS: IPRATROPIUM BR 0.02% INH SOLN 0.5 MG/2.5 ML VIAL INHALATION (20:53)
[2024-04-24] VITALS (37 sets, daily range): BP systolic 100–150; BP diastolic 45–72; PULSE 69–88; RESP 11–25; TEMP 35.9–37.3; O2SAT 95–98
[2024-04-24] MEDS: NOREPINEPHRINE 8 MG/D5W 250 ML 8 MG/250 ML BAG 9.38 MG IV CONT (01:37)
[2024-04-24] MEDS: LEVALBUTEROL NEB 1.25 MG/3 ML 0.63 MG INHALATION ×4 (02:24→20:15)
[2024-04-24] MEDS: IPRATROPIUM BR 0.02% INH SOLN 0.5 MG/2.5 ML VIAL INHALATION ×4 (02:25→20:16)
[2024-04-24] MEDS: LACTATED RINGERS 1,000 ML 100 ML IV CONT (04:14)
[2024-04-24 05:04] LABS: Alveolar/Arterial O2 Gradient 180.4 mmHg; Base Excess ABG -0.9 mEq/l (+/-2.0); Carboxyhemoglobin 0.3 % THb (0-2.0); Fractional Inspired Oxygen 45 %; HCO3 ABG 22.5 mEq/l (22.0-26.0); Oxygen Content ABG 14.6 %vol (16.0-22.0); Oxyhemoglobin 97.7 % THb (90.0-100.0); PCO2 ABG 32.8 mmHg (35.0-45.0); PO2 ABG 103.1 mmHg (80.0-100.0); PO2 FiO2 Ratio Arterial Blood 2.29 %; Total Hemoglobin 10.5 g/dL (12.0-18.0); pH ABG 7.454 (7.350-7.450)
[2024-04-24 05:08] LABS: Site Drawn ARTLINE
[2024-04-24 05:09] LABS: Device VENTILATOR
[2024-04-24 05:28] LABS: Arterial Blood Gas PEEP 8 cmH2O; Arterial Blood Gas Tidal Volume 500 ml; Arterial Blood Gas Vent Mode CMV; Arterial Blood Gas Ventilator rate 20 /MIN
[2024-04-24] MEDS: PIPERACILLIN/TAZ 2.25G/NS 50ML 2.25 GM/50 ML BAG IVPB ×3 (06:00→18:00)
[2024-04-24] MEDS: ALBUMIN HUMAN 25% 25 GM/100 ML 100 ML IVPB ×3 (06:01→18:00)
[2024-04-24] MEDS: CENTRAL LINE FLUSH 10 ML IV PUSH ×3 (06:02→22:47)
[2024-04-24] MEDS: HYDROCORTISONE SODIUM SUCCINATE 100 MG/2 ML VIAL IV PUSH (06:02)
[2024-04-24 06:18] LABS: Hematocrit 29.4 % (42.0-52.0); Hemoglobin 9.6 g/dL (14.0-18.0); Mean Corpuscular HGB Conc 32.7 g/dl (32-36); Mean Corpuscular Hemoglobin 29.6 pg (26-34); Mean Corpuscular Volume 90.7 fl (80-100); Mean Platelet Volume 11.7 fl (7.4-10.4); Platelet Count Result 178 k/mm3 (150-375); Red Blood Count 3.24 M/mm3 (4.6-6.20); Red Cell Distribution Width 14.3 % (11.5-14.5); White Blood Count 13.8 K/mm3 (4.5-10.0)
[2024-04-24 06:36] LABS: Alanine Aminotransferase 21 U/L (6-50); Albumin Level 3.3 g/dL (3.5-5.1); Alkaline Phosphatase 73 U/L (38-126); Anion Gap 12 mmol/L (4-12); Aspartate Amino Transferase 26 U/L (17-59); Bilirubin,Total 2.5 mg/dL (0.2-1.3); Blood Urea Nitrogen 71 mg/dL (9-20); Calcium 8.7 mg/dL (8.4-10.2); Carbon Dioxide 25 mmol/L (22-30); Chloride 104 mmol/L (98-107); Estimated CRCL calculation 21 ml/min; Estimated Glomerular Filt Rate 16; Glucose 114 mg/dL (65-110); Phosphorus 4.8 mg/dL (2.5-4.5); Potassium 4.3 mmol/L (3.4-5.0); Sodium 141 mmol/L (137-145)
[2024-04-24 07:10] LABS: Monocytes Absolute Manual 0.27 K/mm3 (0.1-0.90); Monocytes Percent Manual 2 % (3-9); Total Cells Counted 100
[2024-04-24 07:13] LABS: Band Neutrophils Percent 11 % (0-6); Lymphocytes Absolute Manual 0.13 K/mm3 (1.1-4.5); Lymphocytes Percent Manual 1 % (18-44); Neutrophils Absolute Manual 13.38 K/mm3 (1.3-6.7); Neutrophils Percent Manual 86 % (46-73)
[2024-04-24 07:16] LABS: Dohle Bodies Present; Schistocytes None Seen
[2024-04-24 07:17] LABS: Burr Cells 1+; Platelet Estimate Adequate (Adequate)
[2024-04-24 07:25] LABS: Creatine Kinase 387 U/L (55-170)
[2024-04-24] MEDS: PANTOPRAZOLE SODIUM IV 80 MG in SODIUM CHLORIDE 0.9% IV 500 ML 50 MG IV CONT ×2 (08:19→18:00)
--- NOTE | 2024-04-24 08:26 | WPDINTPN ---
Progress Note: A&P Assessment and Plan (1) Acute respiratory failure: Code(s): J96.00 - Acute respiratory failure, unspecified whether with hypoxia or hypercapnia Status: Acute Assessment and Plan: 04/22: Remains intubated post surgery/anesthesia -will continue CMV mode of ventilation, peep of 8 and 60% FiO2 -start bronchodilators -sedated with fentanyl and Versed infusion, maintain RASS of 0 to -2, daily sedation vacation and SBT -I have asked the bedside RN to wean of sedation, once patient is more awake will place patient on SBT and evaluate for extubation (2) Septic shock: Code(s): A41.9 - Sepsis, unspecified organism; R65.21 - Severe sepsis with septic shock Status: Acute Assessment and Plan: 04/22: Patient presented with abdominal pain, CT abdomen and pelvis revealed perforated gastric ulcer, free air in the abdomen. status post ex lap with open gastrostomy tube placement, repair of the large gastric ulcer with Clarence patch, ELSA drain -patient was hypotensive when he arrived to the ER, with systolic blood pressures in the 60s, was given 2.5 L IV fluids, started on the Levophed. Patient then went to the OR where he had the procedure, remained on Levophed, central line was inserted in the OR and patient was transferred to the ICU -upon arrival to the ICU patient required addition of vasopressin along with Levophed -04/23.: Additional 2 L IV fluids were given as patient's blood pressures were low in the 60s and 70s systolic, -Patient currently on vasopressin, Levophed, will maintain MAP > 65 mm Hg and SBP > 100 mmHg -started on stress dose steroids -patient currently on Zosyn and fluconazole per surgery -04/23: Blood cultures ordered -continue maintenance IV fluids (3) Acute kidney injury superimposed on stage 3b chronic kidney disease: Code(s): N17.9 - Acute kidney failure, unspecified; N18.32 - Chronic kidney disease, stage 3b Status: Acute Assessment and Plan: Patient presented with acute on chronic kidney disease -creatinine on admission was 4.40 (baseline creatinine is 1.2-1.4) -patient was given 2.5 L of IV fluids in the ER, -on maintenance IV fluids -04/23 give additional 2 L IV fluid bolus as patient was hypotensive and probably is third-spacing -will infuse albumin for intravascular volume expansion -continue to monitor urine output, renal function electrolytes Check urine electrolytes, urine eosinophils and CK level (4) Perforated gastric ulcer: Qualifiers: Gastric ulcer chronicity: acute Qualified Code(s): K25.1 - Acute gastric ulcer with perforation Code(s): K25.5 - Chronic or unspecified gastric ulcer with perforation Status: Acute Assessment and Plan: 04/22: Patient presented with abdominal pain, CT abdomen and pelvis revealed perforated gastric ulcer, free air in the abdomen. status post ex lap with open gastrostomy tube placement, repair of the large gastric ulcer with Clarence patch, ELSA drain -surgery following -continue antibiotics as above -on Protonix infusion (5) Acute hyperkalemia: Code(s): E87.5 - Hyperkalemia Status: Acute Assessment and Plan: RESOLVED -continue to monitor Plan DVT prophylaxis: Lovenox Stress ulcer prophylaxis: Protonix infusion Nutrition: NPO, patient may likely require TPN Code Status: Full code, as discussed code status with 2 daughters Critical Care Time Spent: 35 minutes Discussed with 2 daughters in rounds and updated them with patient's condition and plan of care. I did update them regarding patient being intubated on mechanical ventilation, in septic shock, on 2 pressors, acute on chronic kidney disease, hyperkalemia. I discussed with them regarding code status to which they said they wanted everything to be done but the patient would not want to be in a vegetative state. Due to a high probability of clinically significant, life threatening deterioration, the patient required my highest level of preparedness to intervene emergently and I personally spent this critical care time directly and personally managing the patient. This critical care time included obtaining a history; examining the patient; pulse oximetry; ordering and review of studies; arranging urgent treatment with development of a management plan; evaluation of patient's response to treatment; frequent reassessment; and discussions with other providers. It was exclusive of separately billable procedures and treating other patients and teaching time. Please see Assessment and Plan section and the rest of the note for further information on patient assessment and treatment This dictation may have been done utilizing a voice recognition system. Attempts have been made to correct errors. However, there may be uncorrected grammatical, spelling, and recognitions errors present. Subjective Date/time seen: 04/24/24 08:26 Interval history: Reason for consult: Acute respiratory failure, abdominal pain, perforated gastric ulcer, 04/22: status post ex lap with open gastrostomy tube placement, repair of the large gastric ulcer with Clarence patch, ELSA drain 04/24/2024: Patient seen and examined the ICU, remains intubated on CMV mode of ventilation, peep of 8, 45% FiO2. Sedated with fentanyl and Versed infusion, patient does not open his eyes or follow simple commands. Urine output has been adequate, afebrile. Off all pressors Review of Systems Review of Systems: ROS unobtainable: Yes unobtainable due to endotracheal tube and unobtainable due to medical condition Exam Narrative: General: Intubated and sedated, in no acute distress HEENT:? Pupils equal and reactive, sclerae is clear ETT in place Neck:? Supple Respiratory:? Coarse breath sounds bilaterally, decreased at bases, adequate air entry, no wheezing Cardiac:? S1-S2 is normal, sinus tachycardia Abdomen:? Soft, nondistended, tender to palpation, very hypoactive bowel sound Extremities:? Bilateral feet are warm, pulses are palpable, discoloration of the feet has improved Neuro:? Patient is intubated, sedated, does not open his eyes or follow simple commands Skin:? Dry scaly skin - bilateral lower extremity Psych:? Unable to assess at this time Objective Data Vital Signs Vital Signs: Vital Signs - 24 hr 04/23/24 08:48 04/23/24 10:00 04/23/24 10:00 Temperature Pulse Rate 131 H 129 H 129 H Respiratory Rate 20 Blood Pressure 121/66 121/66 Pulse Oximetry Oxygen Delivery Fraction of Inspired Oxygen 04/23/24 10:00 04/23/24 10:00 04/23/24 10:00 Temperature Pulse Rate 129 H 129 H 129 H Respiratory Rate 20 20 Blood Pressure Pulse Oximetry Oxygen Delivery Fraction of Inspired Oxygen 04/23/24 10:00 04/23/24 10:30 04/23/24 10:35 Temperature 100 F H Pulse Rate 129 H 121 H 114 H Respiratory Rate 20 Blood Pressure 121/66 141/73 H Pulse Oximetry 96 97 Oxygen Delivery Mechanical Ventilation Fraction of Inspired Oxygen 60 04/23/24 11:00 04/23/24 12:00 04/23/24 12:00 Temperature Pulse Rate 117 H 119 H Respiratory Rate Blood Pressure 138/72 125/65 Pulse Oximetry Oxygen Delivery Fraction of Inspired Oxygen 60 04/23/24 12:00 04/23/24 12:00 04/23/24 12:00 Temperature Pulse Rate 119 H 119 H 119 H Respiratory Rate 20 20 Blood Pressure 125/65 Pulse Oximetry Oxygen Delivery Fraction of Inspired Oxygen 04/23/24 12:00 04/23/24 12:00 04/23/24 12:00 Temperature 99.5 F Pulse Rate 119 H 107 H 119 H Respiratory Rate 20 20 Blood Pressure 125/65 Pulse Oximetry 96 96 Oxygen Delivery Mechanical Ventilation Fraction of Inspired Oxygen 80 04/23/24 12:05 04/23/24 12:10 04/23/24 12:15 Temperature Pulse Rate 118 H 119 H 118 H Respiratory Rate Blood Pressure 132/67 135/70 136/70 Pulse Oximetry Oxygen Delivery Fraction of Inspired Oxygen 04/23/24 12:30 04/23/24 12:38 04/23/24 12:38 Temperature Pulse Rate 117 H 114 H 114 H Respiratory Rate Blood Pressure 137/78 140/96 H 140/96 H Pulse Oximetry Oxygen Delivery Fraction of Inspired Oxygen 04/23/24 12:45 04/23/24 13:47 04/23/24 13:47 Temperature Pulse Rate 117 H 109 H 109 H Respiratory Rate 20 Blood Pressure 110/61 Pulse Oximetry 98 Oxygen Delivery Mechanical Ventilation Fraction of Inspired Oxygen 60 04/23/24 14:00 04/23/24 14:00 04/23/24 14:00 Temperature Pulse Rate 107 H 107 H 107 H Respiratory Rate 20 Blood Pressure 142/67 H 142/67 H Pulse Oximetry Oxygen Delivery Fraction of Inspired Oxygen 04/23/24 14:00 04/23/24 14:00 04/23/24 14:00 Temperature 99.1 F Pulse Rate 107 H 106 H 106 H Respiratory Rate 20 20 Blood Pressure 142/67 H Pulse Oximetry 97 Oxygen Delivery Fraction of Inspired Oxygen 04/23/24 14:05 04/23/24 14:10 04/23/24 14:15 Temperature Pulse Rate 106 H 111 H 119 H Respiratory Rate Blood Pressure 143/67 H 153/87 H 135/68 Pulse Oximetry Oxygen Delivery Fraction of Inspired Oxygen 04/23/24 14:20 04/23/24 14:25 04/23/24 14:30 Temperature Pulse Rate 117 H 116 H 114 H Respiratory Rate Blood Pressure 132/64 140/67 138/63 Pulse Oximetry Oxygen Delivery Fraction of Inspired Oxygen 04/23/24 15:30 04/23/24 15:45 04/23/24 16:00 Temperature Pulse Rate 109 H 108 H 108 H Respiratory Rate Blood Pressure 121/58 L 117/57 L 122/57 L Pulse Oximetry Oxygen Delivery Fraction of Inspired Oxygen 04/23/24 16:00 04/23/24 16:00 04/23/24 16:00 Temperature Pulse Rate 108 H 108 H 108 H Respiratory Rate 20 20 Blood Pressure 122/57 L Pulse Oximetry Oxygen Delivery Fraction of Inspired Oxygen 04/23/24 16:00 04/23/24 16:00 04/23/24 16:00 Temperature 98.6 F Pulse Rate 118 H 108 H 95 Respiratory Rate 20 20 Blood Pressure 122/57 L Pulse Oximetry 97 97 Oxygen Delivery Mechanical Ventilation Fraction of Inspired Oxygen 80 04/23/24 16:00 04/23/24 16:15 04/23/24 16:45 Temperature Pulse Rate 111 H 105 H Respiratory Rate Blood Pressure 90/48 L 113/56 L Pulse Oximetry Oxygen Delivery Fraction of Inspired Oxygen 60 04/23/24 17:15 04/23/24 17:28 04/23/24 17:30 Temperature Pulse Rate 99 100 98 Respiratory Rate Blood Pressure 121/57 L 134/60 Pulse Oximetry 97 Oxygen Delivery Mechanical Ventilation Fraction of Inspired Oxygen 50 04/23/24 18:00 04/23/24 18:00 04/23/24 18:00 Temperature Pulse Rate 95 95 95 Respiratory Rate 20 20 Blood Pressure 141/62 H Pulse Oximetry Oxygen Delivery Fraction of Inspired Oxygen 04/23/24 18:00 04/23/24 18:00 04/23/24 18:00 Temperature 98.5 F Pulse Rate 95 95 95 Respiratory Rate 20 Blood Pressure 141/62 H 141/62 H Pulse Oximetry 97 Oxygen Delivery Fraction of Inspired Oxygen 04/23/24 20:00 04/23/24 20:00 04/23/24 20:00 Temperature Pulse Rate 75 75 Respiratory Rate 20 Blood Pressure Pulse Oximetry 97 Oxygen Delivery Mechanical Ventilation Fraction of Inspired Oxygen 60 60 04/23/24 20:00 04/23/24 20:00 04/23/24 20:00 Temperature Pulse Rate 75 75 75 Respiratory Rate 20 20 Blood Pressure 141/62 H Pulse Oximetry Oxygen Delivery Fraction of Inspired Oxygen 04/23/24 20:00 04/23/24 20:00 04/23/24 20:30 Temperature 98.2 F Pulse Rate 78 78 70 Respiratory Rate 20 Blood Pressure 149/65 H 154/66 H Pulse Oximetry 97 Oxygen Delivery Fraction of Inspired Oxygen 04/23/24 20:40 04/23/24 20:50 04/23/24 20:50 Temperature Pulse Rate 70 86 86 Respiratory Rate 26 H Blood Pressure 154/66 H Pulse Oximetry 98 Oxygen Delivery Mechanical Ventilation Fraction of Inspired Oxygen 50 04/23/24 21:00 04/23/24 21:21 04/23/24 21:24 Temperature Pulse Rate 71 71 67 Respiratory Rate Blood Pressure 155/66 H 155/66 H 157/66 H Pulse Oximetry Oxygen Delivery Fraction of Inspired Oxygen 04/23/24 21:54 04/23/24 21:54 04/23/24 22:00 Temperature Pulse Rate 78 78 78 Respiratory Rate 20 Blood Pressure 116/55 L 104/51 L Pulse Oximetry 97 Oxygen Delivery Fraction of Inspired Oxygen 04/23/24 22:00 04/23/24 22:00 04/23/24 22:00 Temperature Pulse Rate 78 78 78 Respiratory Rate 20 20 Blood Pressure 116/55 L Pulse Oximetry Oxygen Delivery Fraction of Inspired Oxygen 04/23/24 23:00 04/23/24 23:15 04/23/24 23:22 Temperature Pulse Rate 92 88 92 Respiratory Rate Blood Pressure 116/56 L 120/57 L Pulse Oximetry 98 Oxygen Delivery Mechanical Ventilation Fraction of Inspired Oxygen 45 04/24/24 00:00 04/24/24 00:00 04/24/24 00:00 Temperature 97.1 F L Pulse Rate 86 86 Respiratory Rate 20 20 Blood Pressure 100/49 L Pulse Oximetry 97 96 Oxygen Delivery Mechanical Ventilation Fraction of Inspired Oxygen 45 45 04/24/24 00:00 04/24/24 00:00 04/24/24 00:00 Temperature Pulse Rate 87 87 87 Respiratory Rate 20 Blood Pressure 113/54 L Pulse Oximetry Oxygen Delivery Fraction of Inspired Oxygen 04/24/24 00:00 04/24/24 00:00 04/24/24 01:37 Temperature Pulse Rate 87 87 79 Respiratory Rate 20 Blood Pressure 100/49 L 111/53 L Pulse Oximetry Oxygen Delivery Fraction of Inspired Oxygen 04/24/24 02:00 04/24/24 02:00 04/24/24 02:00 Temperature Pulse Rate 76 76 76 Respiratory Rate 20 20 Blood Pressure 107/52 L 107/52 L Pulse Oximetry 97 Oxygen Delivery Fraction of Inspired Oxygen 04/24/24 02:00 04/24/24 02:07 04/24/24 02:25 Temperature Pulse Rate 76 76 77 Respiratory Rate 20 Blood Pressure 107/52 L Pulse Oximetry 97 Oxygen Delivery Mechanical Ventilation Fraction of Inspired Oxygen 45 04/24/24 02:25 04/24/24 02:40 04/24/24 04:00 Temperature Pulse Rate 77 80 76 Respiratory Rate 20 21 H Blood Pressure 135/55 L Pulse Oximetry Oxygen Delivery Fraction of Inspired Oxygen 04/24/24 04:00 04/24/24 04:00 04/24/24 04:00 Temperature Pulse Rate 76 76 76 Respiratory Rate 20 20 Blood Pressure 142/57 H Pulse Oximetry Oxygen Delivery Fraction of Inspired Oxygen 04/24/24 04:00 04/24/24 04:00 04/24/24 04:00 Temperature 96.7 F L Pulse Rate 75 78 Respiratory Rate 20 22 H Blood Pressure 127/53 L Pulse Oximetry 97 97 Oxygen Delivery Mechanical Ventilation Fraction of Inspired Oxygen 45 45 04/24/24 04:00 04/24/24 05:00 04/24/24 05:14 Temperature Pulse Rate 78 76 76 Respiratory Rate Blood Pressure 106/46 L Pulse Oximetry 98 Oxygen Delivery Mechanical Ventilation Fraction of Inspired Oxygen 45 04/24/24 05:30 04/24/24 05:45 04/24/24 06:00 Temperature Pulse Rate 76 76 76 Respiratory Rate 20 Blood Pressure 106/46 L 101/45 L 106/46 L Pulse Oximetry 97 Oxygen Delivery Fraction of Inspired Oxygen 04/24/24 06:00 04/24/24 06:00 04/24/24 06:00 Temperature Pulse Rate 76 73 73 Respiratory Rate 20 20 Blood Pressure 105/46 L Pulse Oximetry Oxygen Delivery Fraction of Inspired Oxygen 04/24/24 06:00 04/24/24 07:52 04/24/24 07:53 Temperature Pulse Rate 73 72 71 Respiratory Rate 20 20 Blood Pressure 105/46 L Pulse Oximetry Oxygen Delivery Fraction of Inspired Oxygen Intake/Output Intake/Output: Intake & Output 04/21/24 04/22/24 04/23/24 04/24/24 23:59 23:59 23:59 23:59 Intake Total 3966.5 5508.2 1270.0 Output Total 1120 840 Balance 3966.5 4388.2 430.0 Meds/Results Medications: Active Medications Generic Name Dose Route Start Last Admin Trade Name Freq PRN Reason Stop Dose Admin Dextrose 12.5 gm 04/22/24 23:06 Dextrose 50% 25 Gm/50 Ml Syringe IV PUSH PRN PRN Hypoglycemia Protocol Enoxaparin Sodium 30 mg 04/23/24 09:00 04/23/24 08:42 Enoxaparin 30 Mg/0.3 Ml Syringe SUB-Q 30 mg DAILY ROSY Administration Glucagon 1 mg 04/22/24 23:06 Glucagon For Inj 1 Mg Vial IM PRN PRN Hypoglycemia Protocol Glucose 15 gm 04/22/24 23:06 Glucose Oral Gel 15 Gm Of Glucse In 37.5 Gm Tube PO PRN PRN Hypoglycemia Protocol Hydrocortisone Sodium Succinate 100 mg 04/23/24 14:00 04/24/24 06:02 Hydrocortisone Sodium Succinate 100 Mg/2 Ml Vial IV PUSH 100 mg Q8HR ROSY Administration Norepinephrine Bitartrate 8 mg in 250 mls @ 0 mls/hr 04/22/24 17:55 04/24/24 06:00 Levophed 8 Mg/D5w 250 Ml IV CONT 0 mcg/min .Q0M ROSY 0 mls/hr Titration Protocol Piperacillin Sod/Tazobactam Sod 2.25 gm in 50 mls @ 100 mls/hr 04/23/24 00:00 04/24/24 06:44 Zosyn 2.25 Gm/Ns 50 Ml IVPB Infused Q6HR ROSY Infusion Fluconazole/Dextrose 100 mg in 50 mls @ 50 mls/hr 04/22/24 22:00 04/23/24 23:23 Diflucan 100 Mg/Nacl 50 Ml IVPB Infused Q24H ROSY Infusion Pantoprazole Sodium 80 mg/ 500 mls @ 50 mls/hr 04/22/24 22:00 04/24/24 08:19 Sodium Chloride IV CONT 50 mls/hr .Q10H ROSY Administration Fentanyl Citrate 2,500 mcg in 250 mls @ 2.5 mls/hr 04/22/24 23:10 04/24/24 07:52 Fentanyl 2,500 Mcg/Ns 250 Ml IV CONT 25 mcg/hr .Q72H ROSY 2.5 mls/hr Titration Protocol 25 MCG/HR Midazolam HCl 100 mg in 100 mls @ 1 mls/hr 04/22/24 23:10 04/24/24 07:53 Versed 100 Mg/Ns 100 Ml IV CONT 1 mg/hr .Q72H ROSY 1 mls/hr Titration Protocol 1 MG/HR Dextrose 1,000 mls @ 100 mls/hr 04/22/24 23:06 Dextrose 5% 1,000 Ml IVPB PRN PRN Hypoglycemia Protocol Lactated Ringer's 1,000 mls @ 75 mls/hr 04/22/24 23:55 04/24/24 07:51 Lr - Lactated Ringers Iv IV CONT 75 mls/hr .Q08Q00A ROSY Infusion Vasopressin 100 units/ 100 mls @ 0 mls/hr 04/23/24 05:05 04/24/24 06:00 Dextrose IV CONT 0 units/min .Q0M ROSY 0 mls/hr Titration Protocol 0 UNITS/MIN Albumin Human 100 mls @ 60 mls/hr 04/23/24 08:00 04/24/24 07:43 Albutein IVPB Infused Q6HR ROSY Infusion Ipratropium [place] 0.5 mg 04/23/24 14:00 04/24/24 02:25 Ipratropium Br 0.02% Inh Soln 0.5 Mg/2.5 Ml Vial INHALATION 0.5 mg Q6HRT ROSY Administration Levalbuterol HCl 0.63 mg 04/23/24 14:00 04/24/24 02:24 Levalbuterol Neb 1.25 Mg/3 Ml INHALATION 0.63 mg Q6HRT ROSY Administration Midazolam HCl 2 mg 04/22/24 23:06 Midazolam Hcl (*Crx) 2 Mg/2 Ml Vial IV PUSH Q5M PRN ventilator asynchrony Morphine Sulfate 4 mg 04/22/24 22:02 Morphine Sulfate (*Crx) 4 Mg/Ml Inj IV PUSH Q3H PRN Pain Rated 7-10 Multi-Ingred Cream/Lotion/Oil/Oint 1 applic 04/23/24 09:00 04/23/24 20:05 Mineral Oil/White Petrolatum Ointment EACH EYE 1 applic Q12HR ROSY Administration Sodium Chloride 10 ml 04/23/24 14:00 04/24/24 06:02 Central Line Flush IV PUSH 10 ml Q8HR ROSY Administration Sodium Chloride 20 ml 04/23/24 10:16 Central Line Flush IV PUSH PRN PRN after blood draws Vancomycin HCl 1 each 04/22/24 21:03 Vancomycin For Acute Kidney Injury IVPB PRN PRN Vancomycin Protocol Radiology Results: ITS Impressions Chest/Abdomen/Pelvis CTA 04/22/24 18:10 IMPRESSION: Perforated viscus with a large amount of free air and fluid, with mural thickening in the distal stomach and multiple punctate foci of extraluminal air in this area for which site of perforation is suspected. Chest X-Ray 04/24/24 06:43 IMPRESSION: Right basilar atelectasis versus pneumonia with minimal effusion. Bilateral interstitial changes which may indicate pneumonitis versus pulmonary edema. Clinical correlation advised. No significant change from previous examination. Labs Labs: Laboratory Results - last 24 hr 04/23/24 04/23/24 04/23/24 10:30 12:30 13:24 WBC RBC Hgb Hct MCV MCH MCHC RDW Plt Count MPV Immature Gran % (Auto) Neut % (Auto) Lymph % (Auto) [place] % (Auto) Eos % (Auto) Baso % (Auto) Lymph # (Auto) [place] # (Auto) Eos # (Auto) Baso # (Auto) Abs Immat Gran (auto) Absolute Neuts (auto) Absolute Nucleated RBC Total Counted Neutrophils % (Manual) Band Neutrophils % Lymphocytes % (Manual) Monocytes % (Manual) Nucleated RBC % Abs Neuts (Manual) Abs Lymphs (Manual) Abs Monocytes (Manual) Dohle Bodies Platelet Estimate Fredy Cells Schistocytes Puncture Site ABG pH ABG pCO2 ABG pO2 ABG PO2/FiO2 Ratio ABG HCO3 ABG O2 Saturation ABG O2 Content ABG Base Excess A-a Gradient Oxyhemoglobin Carboxyhemoglobin Methemoglobin Reduced Hemoglobin Total Hemoglobin O2 Delivery Device O2 Liters/Min Minute Volume Vent Rate Vent Mode FiO2 Tidal Volume PEEP Peak Inspir Pressure Pressure Support Sodium 137 Potassium 6.0 H* Chloride 103 Carbon Dioxide 22 Anion Gap 12 BUN 66 H Creatinine 3.86 H Estim Creat Clear Calc 20 Estimated GFR 15 L Glucose 178 H POC Capillary Glucose 117 H Lactic Acid 2.7 H Calcium 8.3 L Phosphorus Magnesium Total Bilirubin AST ALT Alkaline Phosphatase Total Creatine Kinase Total Protein Albumin Nasal MRSA (PCR) Vancomycin Trough 04/23/24 04/23/24 04/24/24 13:30 18:56 05:00 WBC RBC Hgb Hct MCV MCH MCHC RDW Plt Count MPV Immature Gran % (Auto) Neut % (Auto) Lymph % (Auto) [place] % (Auto) Eos % (Auto) Baso % (Auto) Lymph # (Auto) [place] # (Auto) Eos # (Auto) Baso # (Auto) Abs Immat Gran (auto) Absolute Neuts (auto) Absolute Nucleated RBC Total Counted Neutrophils % (Manual) Band Neutrophils % Lymphocytes % (Manual) Monocytes % (Manual) Nucleated RBC % Abs Neuts (Manual) Abs Lymphs (Manual) Abs Monocytes (Manual) Dohle Bodies Platelet Estimate Fredy Cells Schistocytes Puncture Site Artline ABG pH 7.454 H ABG pCO2 32.8 L ABG pO2 103.1 H ABG PO2/FiO2 Ratio 2.29 ABG HCO3 22.5 ABG O2 Saturation 98.0 ABG O2 Content 14.6 L ABG Base Excess -0.9 A-a Gradient 180.4 Oxyhemoglobin 97.7 Carboxyhemoglobin 0.3 Methemoglobin 0.0 Reduced Hemoglobin 2.0 Total Hemoglobin 10.5 L O2 Delivery Device Ventilator O2 Liters/Min Pediatric Clinical Nurse Specialist Minute Volume Not Reportable Vent Rate 20 Vent Mode Cmv FiO2 45 Tidal Volume 500 PEEP 8 Peak Inspir Pressure Not Reportable Pressure Support Not Reportable Sodium 138 Potassium 5.2 H Chloride 102 Carbon Dioxide 25 Anion Gap 11 BUN 67 H Creatinine 3.83 H Estim Creat Clear Calc 20 Estimated GFR 15 L Glucose 238 H POC Capillary Glucose Lactic Acid 1.7 Calcium 8.6 Phosphorus Magnesium Total Bilirubin AST ALT Alkaline Phosphatase Total Creatine Kinase Total Protein Albumin Nasal MRSA (PCR) Not detected Vancomycin Trough 9.2 L 04/24/24 05:53 WBC 13.8 H RBC 3.24 L Hgb 9.6 L D Hct 29.4 L MCV 90.7 MCH 29.6 MCHC 32.7 RDW 14.3 Plt Count 178 MPV 11.7 H Immature Gran % (Auto) Not Reportable Neut % (Auto) Not Reportable Lymph % (Auto) Not Reportable [place] % (Auto) Not Reportable Eos % (Auto) Not Reportable Baso % (Auto) Not Reportable Lymph # (Auto) Not Reportable [place] # (Auto) Not Reportable Eos # (Auto) Not Reportable Baso # (Auto) Not Reportable Abs Immat Gran (auto) Not Reportable Absolute Neuts (auto) Not Reportable Absolute Nucleated RBC Not Reportable Total Counted 100 Neutrophils % (Manual) 86 H Band Neutrophils % 11 H Lymphocytes % (Manual) 1 L Monocytes % (Manual) 2 L Nucleated RBC % Not Reportable Abs Neuts (Manual) 13.38 H Abs Lymphs (Manual) 0.13 L Abs Monocytes (Manual) 0.27 Dohle Bodies Present Platelet Estimate Adequate Fredy Cells 1+ Schistocytes None seen Puncture Site ABG pH ABG pCO2 ABG pO2 ABG PO2/FiO2 Ratio ABG HCO3 ABG O2 Saturation ABG O2 Content ABG Base Excess A-a Gradient Oxyhemoglobin Carboxyhemoglobin Methemoglobin Reduced Hemoglobin Total Hemoglobin O2 Delivery Device O2 Liters/Min Minute Volume Vent Rate Vent Mode FiO2 Tidal Volume PEEP Peak Inspir Pressure Pressure Support Sodium 141 Potassium 4.3 Chloride 104 Carbon Dioxide 25 Anion Gap 12 BUN 71 H Creatinine 3.70 H Estim Creat Clear Calc 21 Estimated GFR 16 L Glucose 114 H POC Capillary Glucose Lactic Acid Calcium 8.7 Phosphorus 4.8 H Magnesium 2.0 Total Bilirubin 2.5 H AST 26 ALT 21 Alkaline Phosphatase 73 Total Creatine Kinase 387 H Total Protein 6.0 L Albumin 3.3 L Nasal MRSA (PCR) Vancomycin Trough Quality VTE Prophylaxis VTE prophylaxis: pharmacologic ordered
--- NOTE | 2024-04-24 08:57 | P.CONNP_ITS ---
Assessment and Plan Assessment and plan (1) Acute kidney injury superimposed on stage 3b chronic kidney disease: Code(s): N17.9 - Acute kidney failure, unspecified; N18.32 - Chronic kidney disease, stage 3b Status: Acute Assessment and Plan: the patient has Chronic kidney disease. His baseline creatinine is around 1.5. This is probably related to hypertension, peripheral vascular disease, and possibly chronic nonsteroidal anti-inflammatory agent use. we can evaluate this further when he recovers, possibly in the office if he needs follow-up. The patient has acute kidney injury. there are multiple contributing factors. He had hypotension on admission and prior was hypotensive for a little while as well before he presented. He has septic shock and is on pressor which contributes to kidney injury as well he was on diclofenac before admission and has chronic kidney increasing the risk of RIC in the setting. His creatinine is improving a little bit not very much. He does not seem dehydrated or pre renal to me right now but we will check electrolytes. Will check an ultrasound of the kidneys to be sure there is nothing else going on since he had abdominal surgery but he is making urine so I doubt that he has obstruction. Will check a renal ultrasound, urine electrolytes, CPK. Continue general supportive measures and blood pressure support. Will check another lab tomorrow. (2) Perforated gastric ulcer: Qualifiers: Gastric ulcer chronicity: acute Qualified Code(s): K25.1 - Acute gastric ulcer with perforation Code(s): K25.5 - Chronic or unspecified gastric ulcer with perforation Status: Acute Assessment and Plan: He had a perforated gastric ulcer, likely related to nonsteroidal anti- inflammatory agents. This was repaired in the OR and he is recovering from this. (3) Acute respiratory failure: Code(s): J96.00 - Acute respiratory failure, unspecified whether with hypoxia or hypercapnia Status: Acute Assessment and Plan: the patient is on the ventilator. Settings are okay with a minute volume of 10, peep of 8, and FiO2 of 25%. (4) Shock circulatory: Code(s): R57.9 - Shock, unspecified Status: Acute Assessment and Plan: The patient is improved in this regard. He is off norepinephrine and vasopressin. Blood pressure seems to be doing pretty well in the low 100s. (5) Anemia: Code(s): D64.9 - Anemia, unspecified Status: Acute Assessment and Plan: Hemoglobin was low on admission and required blood transfusion. hemoglobin dropped from 13.4 yesterday morning to 9.6 today. Will repeat a CBC later today. (6) Acute hyperkalemia: Code(s): E87.5 - Hyperkalemia Status: Acute Assessment and Plan: Patient had hyperkalemia probably for related to steroidals plus the renal failure. His he potassium is fine today. (7) HTN (hypertension): Code(s): I10 - Essential (primary) hypertension Status: Acute Assessment and Plan: Blood pressure meds are on hold (8) Hypercholesterolemia: Code(s): E78.00 - Pure hypercholesterolemia, unspecified Status: Acute Assessment and Plan: atorvastatin is on hold History of Present Illness Reason for Consult Consult date: 04/24/24 Chief Complaint Chief complaint: Abdominal Pain History of Present Illness Narrative: Ludin is a very pleasant 78-year-old gentleman who has multiple medical problems including peripheral arterial disease, hypertension, hyperlipidemia, arthritis, low back pain, lumbar stenosis, trochanteric bursitis, piriform is syndrome. The patient has been taking diclofenac daily for his multiple arthritic issues. On the of this month the patient presented to the emergency room with abdominal pain. This had been going on for a few hours. He also developed abdominal distension. He was seen in the ER. X-ray showed free air. blood pressure is very low. He received IV fluids and pressors. Surgery was consulted And he was taken to the OR revealing a perforated gastric ulcer. He was transferred to the ICU. He has been on IV fluids and pressors to maintain his blood pressure. He is on the ventilator and sedated. He cannot give a history. As an outpatient his creatinine has been variable. It seems to run anywhere from about 1.1 to about 2.19. The higher creatinine was in August of 2022, in the setting of poor appetite a recent appendectomy for acute appendicitis and continued use of furosemide. It is unclear whether he was taking diclofenac at that time. I think his baseline creatinine is probably around 1.5. On admission his creatinine was 4.15. This georgette to 4.4 and has come down a little bit since then. His most recent creatinine was 3.7. He is making some urine. His blood pressure has been doing better but he requires norepinephrine plus vasopressin to maintain this blood pressure. He did receive a lot of IV fluid on the and the and he is getting some IV fluids now he was anemic on admission as well and received a unit of blood. Review of Systems 2 Review of Systems: ROS unobtainable: Yes unobtainable due to endotracheal tube, unobtainable due to medical condition and unobtainable due to mental status PMFSH Past Medical History Medical History PAD (peripheral artery disease) Acute perforated appendicitis RIC (acute kidney injury) Piriformis syndrome Trochanteric bursitis, right hip Lumbar stenosis Low Back Pain Arthritis Colon polyps (07/02/22) Umbilical hernia HTN (hypertension) Hypercholesterolemia Surgical History Surgical History History of appendectomy (06/2022) Perforated appemdix H/O Spinal surgery (1984) H/O umbilical hernia repair (2011) Hx of tonsillectomy Family History Family History Father Acute myocardial infarction Heart disease Alzheimer disease Mother Acute myocardial infarction Heart disease Alzheimer disease Social History Social History Social History: Code status: Full code Surrogate decision maker: Erika () Smoking status: Never smoker Second hand tobacco smoke exposure: Yes Alcohol intake: never Alcohol use details: Occasional Substance use: never Substance use type: does not use Lack of Transportation: No Lack of Food: Never True Current Housing: I Have Housing Concerned About Future Housing: No Difficulty Paying Gas/Electric Bills: No Difficulty Paying for Meds: No Currently Unemployed: No Education: Master's Degree or Higher Difficulty w/ Childcare or Family Care: No Living arrangements: with family Occupation/Education: retired Gender identity (if verbalized by the patient): Male Spiritual care concerns: No Agree to blood products: Yes Meds Home Medications and Allergies Home Medications ?Medication ?Instructions ?Recorded ?Confirmed ?Type aspirin 325 mg tablet 325 mg PO DAILY PRN fever 09/13/21 07/23/23 History fexofenadine 180 mg tablet 180 mg PO DAILY PRN contact 09/13/21 07/23/23 History dermititis gabapentin 300 mg capsule 600 mg PO HS 12/20/21 04/23/24 History hydrochlorothiazide 25 mg tablet See Rx Instructions .Route 07/23/23 07/23/23 History .COMPLEX PRN benzonatate 200 mg capsule 200 mg PO TID PRN cough #30 caps 10/13/23 Rx lisinopril 40 mg tablet See Rx Instructions .Route 11/09/23 04/23/24 Rx .COMPLEX #90 tabs furosemide 40 mg tablet 40 mg PO QAM #90 tabs 02/03/24 04/23/24 Rx tramadol 50 mg tablet 50 mg PO Q4H PRN pain #90 tabs 02/08/24 04/23/24 Rx diclofenac sodium 75 mg See Rx Instructions .Route 02/16/24 04/23/24 Rx tablet,delayed release .COMPLEX #180 tabs atorvastatin 20 mg tablet See Rx Instructions .Route 03/06/24 04/23/24 Rx .COMPLEX #90 tabs Allergies Allergy/AdvReac Type Severity Reaction Status Date / Time nickel Allergy Mild Other Verified 12/01/23 15:22 cephalexin AdvReac Severe Rash Verified 12/01/23 15:22 Vital Signs Vital Signs - 24 hr 04/23/24 10:00 04/23/24 10:00 04/23/24 10:00 Temperature Pulse Rate 129 H 129 H 129 H Respiratory Rate 20 Blood Pressure 121/66 121/66 Pulse Oximetry Oxygen Delivery Fraction of Inspired Oxygen 04/23/24 10:00 04/23/24 10:00 04/23/24 10:00 Temperature 100 F H Pulse Rate 129 H 129 H 129 H Respiratory Rate 20 20 Blood Pressure 121/66 Pulse Oximetry 96 Oxygen Delivery Fraction of Inspired Oxygen 04/23/24 10:30 04/23/24 10:35 04/23/24 11:00 Temperature Pulse Rate 121 H 114 H 117 H Respiratory Rate Blood Pressure 141/73 H 138/72 Pulse Oximetry 97 Oxygen Delivery Mechanical Ventilation Fraction of Inspired Oxygen 60 04/23/24 12:00 04/23/24 12:00 04/23/24 12:00 Temperature Pulse Rate 119 H 119 H Respiratory Rate Blood Pressure 125/65 125/65 Pulse Oximetry Oxygen Delivery Fraction of Inspired Oxygen 60 04/23/24 12:00 04/23/24 12:00 04/23/24 12:00 Temperature 99.5 F Pulse Rate 119 H 119 H 119 H Respiratory Rate 20 20 20 Blood Pressure 125/65 Pulse Oximetry 96 Oxygen Delivery Fraction of Inspired Oxygen 04/23/24 12:00 04/23/24 12:00 04/23/24 12:05 Temperature Pulse Rate 107 H 119 H 118 H Respiratory Rate 20 Blood Pressure 132/67 Pulse Oximetry 96 Oxygen Delivery Mechanical Ventilation Fraction of Inspired Oxygen 80 04/23/24 12:10 04/23/24 12:15 04/23/24 12:30 Temperature Pulse Rate 119 H 118 H 117 H Respiratory Rate Blood Pressure 135/70 136/70 137/78 Pulse Oximetry Oxygen Delivery Fraction of Inspired Oxygen 04/23/24 12:38 04/23/24 12:38 04/23/24 12:45 Temperature Pulse Rate 114 H 114 H 117 H Respiratory Rate Blood Pressure 140/96 H 140/96 H 110/61 Pulse Oximetry Oxygen Delivery Fraction of Inspired Oxygen 04/23/24 13:47 04/23/24 13:47 04/23/24 14:00 Temperature Pulse Rate 109 H 109 H 107 H Respiratory Rate 20 Blood Pressure 142/67 H Pulse Oximetry 98 Oxygen Delivery Mechanical Ventilation Fraction of Inspired Oxygen 60 04/23/24 14:00 04/23/24 14:00 04/23/24 14:00 Temperature Pulse Rate 107 H 107 H 107 H Respiratory Rate 20 20 Blood Pressure 142/67 H Pulse Oximetry Oxygen Delivery Fraction of Inspired Oxygen 04/23/24 14:00 04/23/24 14:00 04/23/24 14:05 Temperature 99.1 F Pulse Rate 106 H 106 H 106 H Respiratory Rate 20 Blood Pressure 142/67 H 143/67 H Pulse Oximetry 97 Oxygen Delivery Fraction of Inspired Oxygen 04/23/24 14:10 04/23/24 14:15 04/23/24 14:20 Temperature Pulse Rate 111 H 119 H 117 H Respiratory Rate Blood Pressure 153/87 H 135/68 132/64 Pulse Oximetry Oxygen Delivery Fraction of Inspired Oxygen 04/23/24 14:25 04/23/24 14:30 04/23/24 15:30 Temperature Pulse Rate 116 H 114 H 109 H Respiratory Rate Blood Pressure 140/67 138/63 121/58 L Pulse Oximetry Oxygen Delivery Fraction of Inspired Oxygen 04/23/24 15:45 04/23/24 16:00 04/23/24 16:00 Temperature Pulse Rate 108 H 108 H 108 H Respiratory Rate 20 Blood Pressure 117/57 L 122/57 L Pulse Oximetry Oxygen Delivery Fraction of Inspired Oxygen 04/23/24 16:00 04/23/24 16:00 04/23/24 16:00 Temperature Pulse Rate 108 H 108 H 118 H Respiratory Rate 20 Blood Pressure 122/57 L Pulse Oximetry Oxygen Delivery Fraction of Inspired Oxygen 04/23/24 16:00 04/23/24 16:00 04/23/24 16:00 Temperature 98.6 F Pulse Rate 108 H 95 Respiratory Rate 20 20 Blood Pressure 122/57 L Pulse Oximetry 97 97 Oxygen Delivery Mechanical Ventilation Fraction of Inspired Oxygen 80 60 04/23/24 16:15 04/23/24 16:45 04/23/24 17:15 Temperature Pulse Rate 111 H 105 H 99 Respiratory Rate Blood Pressure 90/48 L 113/56 L 121/57 L Pulse Oximetry Oxygen Delivery Fraction of Inspired Oxygen 04/23/24 17:28 04/23/24 17:30 04/23/24 18:00 Temperature Pulse Rate 100 98 95 Respiratory Rate Blood Pressure 134/60 141/62 H Pulse Oximetry 97 Oxygen Delivery Mechanical Ventilation Fraction of Inspired Oxygen 50 04/23/24 18:00 04/23/24 18:00 04/23/24 18:00 Temperature Pulse Rate 95 95 95 Respiratory Rate 20 20 Blood Pressure 141/62 H Pulse Oximetry Oxygen Delivery Fraction of Inspired Oxygen 04/23/24 18:00 04/23/24 18:00 04/23/24 20:00 Temperature 98.5 F Pulse Rate 95 95 75 Respiratory Rate 20 20 Blood Pressure 141/62 H Pulse Oximetry 97 97 Oxygen Delivery Mechanical Ventilation Fraction of Inspired Oxygen 60 04/23/24 20:00 04/23/24 20:00 04/23/24 20:00 Temperature Pulse Rate 75 75 Respiratory Rate Blood Pressure 141/62 H Pulse Oximetry Oxygen Delivery Fraction of Inspired Oxygen 60 04/23/24 20:00 04/23/24 20:00 04/23/24 20:00 Temperature Pulse Rate 75 75 78 Respiratory Rate 20 20 Blood Pressure Pulse Oximetry Oxygen Delivery Fraction of Inspired Oxygen 04/23/24 20:00 04/23/24 20:30 04/23/24 20:40 Temperature 98.2 F Pulse Rate 78 70 70 Respiratory Rate 20 Blood Pressure 149/65 H 154/66 H 154/66 H Pulse Oximetry 97 Oxygen Delivery Fraction of Inspired Oxygen 04/23/24 20:50 04/23/24 20:50 04/23/24 21:00 Temperature Pulse Rate 86 86 71 Respiratory Rate 26 H Blood Pressure 155/66 H Pulse Oximetry 98 Oxygen Delivery Mechanical Ventilation Fraction of Inspired Oxygen 50 04/23/24 21:21 04/23/24 21:24 04/23/24 21:54 Temperature Pulse Rate 71 67 78 Respiratory Rate Blood Pressure 155/66 H 157/66 H Pulse Oximetry Oxygen Delivery Fraction of Inspired Oxygen 04/23/24 21:54 04/23/24 22:00 04/23/24 22:00 Temperature Pulse Rate 78 78 78 Respiratory Rate 20 20 Blood Pressure 116/55 L 104/51 L Pulse Oximetry 97 Oxygen Delivery Fraction of Inspired Oxygen 04/23/24 22:00 04/23/24 22:00 04/23/24 23:00 Temperature Pulse Rate 78 78 92 Respiratory Rate 20 Blood Pressure 116/55 L 116/56 L Pulse Oximetry Oxygen Delivery Fraction of Inspired Oxygen 04/23/24 23:15 04/23/24 23:22 04/24/24 00:00 Temperature Pulse Rate 88 92 86 Respiratory Rate 20 Blood Pressure 120/57 L Pulse Oximetry 98 97 Oxygen Delivery Mechanical Ventilation Mechanical Ventilation Fraction of Inspired Oxygen 45 45 04/24/24 00:00 04/24/24 00:00 04/24/24 00:00 Temperature 97.1 F L Pulse Rate 86 87 Respiratory Rate 20 Blood Pressure 100/49 L Pulse Oximetry 96 Oxygen Delivery Fraction of Inspired Oxygen 45 04/24/24 00:00 04/24/24 00:00 04/24/24 00:00 Temperature Pulse Rate 87 87 87 Respiratory Rate 20 20 Blood Pressure 113/54 L Pulse Oximetry Oxygen Delivery Fraction of Inspired Oxygen 04/24/24 00:00 04/24/24 01:37 04/24/24 02:00 Temperature Pulse Rate 87 79 76 Respiratory Rate 20 Blood Pressure 100/49 L 111/53 L 107/52 L Pulse Oximetry 97 Oxygen Delivery Fraction of Inspired Oxygen 04/24/24 02:00 04/24/24 02:00 04/24/24 02:00 Temperature Pulse Rate 76 76 76 Respiratory Rate 20 20 Blood Pressure 107/52 L Pulse Oximetry Oxygen Delivery Fraction of Inspired Oxygen 04/24/24 02:07 04/24/24 02:25 04/24/24 02:25 Temperature Pulse Rate 76 77 77 Respiratory Rate 20 Blood Pressure 107/52 L Pulse Oximetry 97 Oxygen Delivery Mechanical Ventilation Fraction of Inspired Oxygen 45 04/24/24 02:40 04/24/24 04:00 04/24/24 04:00 Temperature Pulse Rate 80 76 76 Respiratory Rate 21 H 20 Blood Pressure 135/55 L Pulse Oximetry Oxygen Delivery Fraction of Inspired Oxygen 04/24/24 04:00 04/24/24 04:00 04/24/24 04:00 Temperature Pulse Rate 76 76 75 Respiratory Rate 20 20 Blood Pressure 142/57 H Pulse Oximetry 97 Oxygen Delivery Mechanical Ventilation Fraction of Inspired Oxygen 45 04/24/24 04:00 04/24/24 04:00 04/24/24 04:00 Temperature 96.7 F L Pulse Rate 78 78 Respiratory Rate 22 H Blood Pressure 127/53 L Pulse Oximetry 97 Oxygen Delivery Fraction of Inspired Oxygen 45 04/24/24 05:00 04/24/24 05:14 04/24/24 05:30 Temperature Pulse Rate 76 76 76 Respiratory Rate Blood Pressure 106/46 L 106/46 L Pulse Oximetry 98 Oxygen Delivery Mechanical Ventilation Fraction of Inspired Oxygen 45 04/24/24 05:45 04/24/24 06:00 04/24/24 06:00 Temperature Pulse Rate 76 76 76 Respiratory Rate 20 Blood Pressure 101/45 L 106/46 L 105/46 L Pulse Oximetry 97 Oxygen Delivery Fraction of Inspired Oxygen 04/24/24 06:00 04/24/24 06:00 04/24/24 06:00 Temperature Pulse Rate 73 73 73 Respiratory Rate 20 20 Blood Pressure 105/46 L Pulse Oximetry Oxygen Delivery Fraction of Inspired Oxygen 04/24/24 07:52 04/24/24 07:53 Temperature Pulse Rate 72 71 Respiratory Rate 20 20 Blood Pressure Pulse Oximetry Oxygen Delivery Fraction of Inspired Oxygen Exam 2 Narrative: Exam Narrative: Well developed well-nourished Male on the ventilator and sedated looking comfortable. Skin is warm and dry without rash Head normocephalic atraumatic Eyes normal sclerae and conjunctivae Mouth normal lips teeth and gums as far as I can see but he is orally intubated Neck no nodes no thyromegaly no carotid bruits Axillae no nodes Lungs symmetric and mildly coarse without wheezes on auscultation and percussion Heart regular rate and rhythm without rub or gallop. 1/6 systolic murmur. Abdomen bowel sounds absent and distended but not rigid, no HSM, masses, or bruits. Extremities no cyanosis, clubbing, but 1+ bilateral presacral edema Pulses 2+ equal in radial arteries Psychological not anxious or depressed Neuro sedated motor tone is normal cranial nerves 2-12 intact passively as he does not follow commands reflexes 2+ and equal in the biceps and patellar tendons cerebellar no seizure tremor or clonus Results Lab Results 04/24/24 05:53 04/24/24 05:53 Lab results: Most recent lab results ABG pH 7.454 (7.350-7.450) H 04/24/24 05:00 ABG pCO2 32.8 mmHg (35.0-45.0) L 04/24/24 05:00 ABG pO2 103.1 mmHg (80.0-100.0) H 04/24/24 05:00 ABG HCO3 22.5 mEq/l (22.0-26.0) 04/24/24 05:00 ABG O2 Saturation 98.0 % (95.0-100.0) 04/24/24 05:00 Calcium 8.7 mg/dL (8.4-10.2) 04/24/24 05:53 Phosphorus 4.8 mg/dL (2.5-4.5) H 04/24/24 05:53 Magnesium 2.0 mg/dL (1.6-2.3) 04/24/24 05:53
[2024-04-24] MEDS: MINERAL OIL/WHITE PETROLATUM OINTMENT 1 APPLIC EACH EYE ×2 (09:05→22:47)
[2024-04-24] MEDS: ENOXAPARIN 30 MG/0.3 ML SYRINGE SUB-Q (09:05)
--- NOTE | 2024-04-24 09:06 | PM.IMPN ---
Progress Note: A&P Assessment and Plan (1) Acute respiratory failure: Code(s): J96.00 - Acute respiratory failure, unspecified whether with hypoxia or hypercapnia Status: Acute Assessment and Plan: 04/22: Remains intubated post surgery/anesthesia -will continue CMV mode of ventilation, peep of 8 and 60% FiO2 -start bronchodilators -sedated with fentanyl and Versed infusion, maintain RASS of 0 to -2, daily sedation vacation and SBT -I have asked the bedside RN to wean of sedation, once patient is more awake will place patient on SBT and evaluate for extubation (2) Septic shock: Code(s): A41.9 - Sepsis, unspecified organism; R65.21 - Severe sepsis with septic shock Status: Acute Assessment and Plan: 04/22: Patient presented with abdominal pain, CT abdomen and pelvis revealed perforated gastric ulcer, free air in the abdomen. status post ex lap with open gastrostomy tube placement, repair of the large gastric ulcer with Clarence patch, ELSA drain -patient was hypotensive when he arrived to the ER, with systolic blood pressures in the 60s, was given 2.5 L IV fluids, started on the Levophed. Patient then went to the OR where he had the procedure, remained on Levophed, central line was inserted in the OR and patient was transferred to the ICU -upon arrival to the ICU patient required addition of vasopressin along with Levophed -04/23.: Additional 2 L IV fluids were given as patient's blood pressures were low in the 60s and 70s systolic, -Patient currently on vasopressin, Levophed, will maintain MAP > 65 mm Hg and SBP > 100 mmHg -started on stress dose steroids -patient currently on Zosyn and fluconazole per surgery -04/23: Blood cultures ordered -continue maintenance IV fluids (3) Acute kidney injury superimposed on stage 3b chronic kidney disease: Code(s): N17.9 - Acute kidney failure, unspecified; N18.32 - Chronic kidney disease, stage 3b Status: Acute Assessment and Plan: Patient presented with acute on chronic kidney disease -creatinine on admission was 4.40 (baseline creatinine is 1.2-1.4) -patient was given 2.5 L of IV fluids in the ER, -on maintenance IV fluids -04/23 give additional 2 L IV fluid bolus as patient was hypotensive and probably is third-spacing -will infuse albumin for intravascular volume expansion -continue to monitor urine output, renal function electrolytes Check urine electrolytes, urine eosinophils and CK level (4) Perforated gastric ulcer: Onset Date: 04/2024 Qualifiers: Gastric ulcer chronicity: acute Qualified Code(s): K25.1 - Acute gastric ulcer with perforation Code(s): K25.5 - Chronic or unspecified gastric ulcer with perforation Status: Inactive Assessment and Plan: 04/22: Patient presented with abdominal pain, CT abdomen and pelvis revealed perforated gastric ulcer, free air in the abdomen. status post ex lap with open gastrostomy tube placement, repair of the large gastric ulcer with Clarence patch, ELSA drain -surgery following -continue antibiotics as above -on Protonix infusion (5) Acute hyperkalemia: Code(s): E87.5 - Hyperkalemia Status: Acute Assessment and Plan: RESOLVED -continue to monitor Subjective Date/time seen: 04/24/24 09:06 Interval history: Patient is currently intubated. Most of the history was obtained from the wood milling machine tender documentation. Currently is off on sedation . Exam Narrative: General: Intubated and sedated, in no acute distress HEENT:? Pupils equal and reactive, sclerae is clear ETT in place Neck:? Supple Respiratory:? Coarse breath sounds bilaterally, decreased at bases, adequate air entry, no wheezing Cardiac:? S1-S2 is normal, sinus tachycardia Abdomen:? Soft, nondistended, tender to palpation, very hypoactive bowel sound Extremities:? Bilateral feet are warm, pulses are palpable, discoloration of the feet has improved Neuro:? Patient is intubated, sedated, does not open his eyes or follow simple commands Skin:? Dry scaly skin - bilateral lower extremity Psych:? Unable to assess at this time Const: Other: Acutely ill-appearing, intubated, sedated, obese HENMT: Other: Mucous membranes are dry, ET tube measuring at 25 at the lip, head is normocephalic atraumatic, few missing teeth, bridge in the lower jaw Eyes: Other: Pupils are equal and sluggishly reactive no scleral icterus Neck: Other: No JVD, trachea midline Resp: Other: Equal breath sounds, patient is not over breathing the vent Cardio: Other: Sinus tachycardia, 1+ bilateral radial pulses, unable to palpate pedal or posterior tibial pulses, pulses obtained with Doppler ultrasound GI: Other: Distended, postoperative dressings in place dressings are clean dry and intact patient has 2 ELSA drains, abdomen bowel sounds : Other: Bowman catheter in place was a small amount of turbid yellow urine Skin: Other: Generally cold to touch, 2nd cap refill, fingers and toes are cyanotic Neuro: Other: Patient is sedated, pupils are sluggishly reactive but equal Extrem: Other: 2+ pitting edema bilateral lower extremities, poor peripheral pulses of lower extremities with dorsalis pedis and posterior tibial the right lower extremity barely audible with the Doppler ultrasound, slightly better auscultation of pulses of the left pedal and dorsalis pedis Psych: Other: Unable to assess due to patient condition Objective Data Vital Signs Vital Signs: Vital Signs - 24 hr 04/23/24 10:00 04/23/24 10:00 04/23/24 10:00 Temperature Pulse Rate 129 H 129 H 129 H Respiratory Rate 20 Blood Pressure 121/66 121/66 Pulse Oximetry Oxygen Delivery Fraction of Inspired Oxygen 04/23/24 10:00 04/23/24 10:00 04/23/24 10:00 Temperature 100 F H Pulse Rate 129 H 129 H 129 H Respiratory Rate 20 20 Blood Pressure 121/66 Pulse Oximetry 96 Oxygen Delivery Fraction of Inspired Oxygen 04/23/24 10:30 04/23/24 10:35 04/23/24 11:00 Temperature Pulse Rate 121 H 114 H 117 H Respiratory Rate Blood Pressure 141/73 H 138/72 Pulse Oximetry 97 Oxygen Delivery Mechanical Ventilation Fraction of Inspired Oxygen 60 04/23/24 12:00 04/23/24 12:00 04/23/24 12:00 Temperature Pulse Rate 119 H 119 H Respiratory Rate Blood Pressure 125/65 125/65 Pulse Oximetry Oxygen Delivery Fraction of Inspired Oxygen 60 04/23/24 12:00 04/23/24 12:00 04/23/24 12:00 Temperature 99.5 F Pulse Rate 119 H 119 H 119 H Respiratory Rate 20 20 20 Blood Pressure 125/65 Pulse Oximetry 96 Oxygen Delivery Fraction of Inspired Oxygen 04/23/24 12:00 04/23/24 12:00 04/23/24 12:05 Temperature Pulse Rate 107 H 119 H 118 H Respiratory Rate 20 Blood Pressure 132/67 Pulse Oximetry 96 Oxygen Delivery Mechanical Ventilation Fraction of Inspired Oxygen 80 04/23/24 12:10 04/23/24 12:15 04/23/24 12:30 Temperature Pulse Rate 119 H 118 H 117 H Respiratory Rate Blood Pressure 135/70 136/70 137/78 Pulse Oximetry Oxygen Delivery Fraction of Inspired Oxygen 04/23/24 12:38 04/23/24 12:38 04/23/24 12:45 Temperature Pulse Rate 114 H 114 H 117 H Respiratory Rate Blood Pressure 140/96 H 140/96 H 110/61 Pulse Oximetry Oxygen Delivery Fraction of Inspired Oxygen 04/23/24 13:47 04/23/24 13:47 04/23/24 14:00 Temperature Pulse Rate 109 H 109 H 107 H Respiratory Rate 20 Blood Pressure 142/67 H Pulse Oximetry 98 Oxygen Delivery Mechanical Ventilation Fraction of Inspired Oxygen 60 04/23/24 14:00 04/23/24 14:00 04/23/24 14:00 Temperature Pulse Rate 107 H 107 H 107 H Respiratory Rate 20 20 Blood Pressure 142/67 H Pulse Oximetry Oxygen Delivery Fraction of Inspired Oxygen 04/23/24 14:00 04/23/24 14:00 04/23/24 14:05 Temperature 99.1 F Pulse Rate 106 H 106 H 106 H Respiratory Rate 20 Blood Pressure 142/67 H 143/67 H Pulse Oximetry 97 Oxygen Delivery Fraction of Inspired Oxygen 04/23/24 14:10 04/23/24 14:15 04/23/24 14:20 Temperature Pulse Rate 111 H 119 H 117 H Respiratory Rate Blood Pressure 153/87 H 135/68 132/64 Pulse Oximetry Oxygen Delivery Fraction of Inspired Oxygen 04/23/24 14:25 04/23/24 14:30 04/23/24 15:30 Temperature Pulse Rate 116 H 114 H 109 H Respiratory Rate Blood Pressure 140/67 138/63 121/58 L Pulse Oximetry Oxygen Delivery Fraction of Inspired Oxygen 04/23/24 15:45 04/23/24 16:00 04/23/24 16:00 Temperature Pulse Rate 108 H 108 H 108 H Respiratory Rate 20 Blood Pressure 117/57 L 122/57 L Pulse Oximetry Oxygen Delivery Fraction of Inspired Oxygen 04/23/24 16:00 04/23/24 16:00 04/23/24 16:00 Temperature Pulse Rate 108 H 108 H 118 H Respiratory Rate 20 Blood Pressure 122/57 L Pulse Oximetry Oxygen Delivery Fraction of Inspired Oxygen 04/23/24 16:00 04/23/24 16:00 04/23/24 16:00 Temperature 98.6 F Pulse Rate 108 H 95 Respiratory Rate 20 20 Blood Pressure 122/57 L Pulse Oximetry 97 97 Oxygen Delivery Mechanical Ventilation Fraction of Inspired Oxygen 80 60 04/23/24 16:15 04/23/24 16:45 04/23/24 17:15 Temperature Pulse Rate 111 H 105 H 99 Respiratory Rate Blood Pressure 90/48 L 113/56 L 121/57 L Pulse Oximetry Oxygen Delivery Fraction of Inspired Oxygen 04/23/24 17:28 04/23/24 17:30 04/23/24 18:00 Temperature Pulse Rate 100 98 95 Respiratory Rate Blood Pressure 134/60 141/62 H Pulse Oximetry 97 Oxygen Delivery Mechanical Ventilation Fraction of Inspired Oxygen 50 04/23/24 18:00 04/23/24 18:00 04/23/24 18:00 Temperature Pulse Rate 95 95 95 Respiratory Rate 20 20 Blood Pressure 141/62 H Pulse Oximetry Oxygen Delivery Fraction of Inspired Oxygen 04/23/24 18:00 04/23/24 18:00 04/23/24 20:00 Temperature 98.5 F Pulse Rate 95 95 75 Respiratory Rate 20 20 Blood Pressure 141/62 H Pulse Oximetry 97 97 Oxygen Delivery Mechanical Ventilation Fraction of Inspired Oxygen 60 04/23/24 20:00 04/23/24 20:00 04/23/24 20:00 Temperature Pulse Rate 75 75 Respiratory Rate Blood Pressure 141/62 H Pulse Oximetry Oxygen Delivery Fraction of Inspired Oxygen 60 04/23/24 20:00 04/23/24 20:00 04/23/24 20:00 Temperature Pulse Rate 75 75 78 Respiratory Rate 20 20 Blood Pressure Pulse Oximetry Oxygen Delivery Fraction of Inspired Oxygen 04/23/24 20:00 04/23/24 20:30 04/23/24 20:40 Temperature 98.2 F Pulse Rate 78 70 70 Respiratory Rate 20 Blood Pressure 149/65 H 154/66 H 154/66 H Pulse Oximetry 97 Oxygen Delivery Fraction of Inspired Oxygen 04/23/24 20:50 04/23/24 20:50 04/23/24 21:00 Temperature Pulse Rate 86 86 71 Respiratory Rate 26 H Blood Pressure 155/66 H Pulse Oximetry 98 Oxygen Delivery Mechanical Ventilation Fraction of Inspired Oxygen 50 04/23/24 21:21 04/23/24 21:24 04/23/24 21:54 Temperature Pulse Rate 71 67 78 Respiratory Rate Blood Pressure 155/66 H 157/66 H Pulse Oximetry Oxygen Delivery Fraction of Inspired Oxygen 04/23/24 21:54 04/23/24 22:00 04/23/24 22:00 Temperature Pulse Rate 78 78 78 Respiratory Rate 20 20 Blood Pressure 116/55 L 104/51 L Pulse Oximetry 97 Oxygen Delivery Fraction of Inspired Oxygen 04/23/24 22:00 04/23/24 22:00 04/23/24 23:00 Temperature Pulse Rate 78 78 92 Respiratory Rate 20 Blood Pressure 116/55 L 116/56 L Pulse Oximetry Oxygen Delivery Fraction of Inspired Oxygen 04/23/24 23:15 04/23/24 23:22 04/24/24 00:00 Temperature Pulse Rate 88 92 86 Respiratory Rate 20 Blood Pressure 120/57 L Pulse Oximetry 98 97 Oxygen Delivery Mechanical Ventilation Mechanical Ventilation Fraction of Inspired Oxygen 45 45 04/24/24 00:00 04/24/24 00:00 04/24/24 00:00 Temperature 97.1 F L Pulse Rate 86 87 Respiratory Rate 20 Blood Pressure 100/49 L Pulse Oximetry 96 Oxygen Delivery Fraction of Inspired Oxygen 45 04/24/24 00:00 04/24/24 00:00 04/24/24 00:00 Temperature Pulse Rate 87 87 87 Respiratory Rate 20 20 Blood Pressure 113/54 L Pulse Oximetry Oxygen Delivery Fraction of Inspired Oxygen 04/24/24 00:00 04/24/24 01:37 04/24/24 02:00 Temperature Pulse Rate 87 79 76 Respiratory Rate 20 Blood Pressure 100/49 L 111/53 L 107/52 L Pulse Oximetry 97 Oxygen Delivery Fraction of Inspired Oxygen 04/24/24 02:00 04/24/24 02:00 04/24/24 02:00 Temperature Pulse Rate 76 76 76 Respiratory Rate 20 20 Blood Pressure 107/52 L Pulse Oximetry Oxygen Delivery Fraction of Inspired Oxygen 04/24/24 02:07 04/24/24 02:25 04/24/24 02:25 Temperature Pulse Rate 76 77 77 Respiratory Rate 20 Blood Pressure 107/52 L Pulse Oximetry 97 Oxygen Delivery Mechanical Ventilation Fraction of Inspired Oxygen 45 04/24/24 02:40 04/24/24 04:00 04/24/24 04:00 Temperature Pulse Rate 80 76 76 Respiratory Rate 21 H 20 Blood Pressure 135/55 L Pulse Oximetry Oxygen Delivery Fraction of Inspired Oxygen 04/24/24 04:00 04/24/24 04:00 04/24/24 04:00 Temperature Pulse Rate 76 76 75 Respiratory Rate 20 20 Blood Pressure 142/57 H Pulse Oximetry 97 Oxygen Delivery Mechanical Ventilation Fraction of Inspired Oxygen 45 04/24/24 04:00 04/24/24 04:00 04/24/24 04:00 Temperature 96.7 F L Pulse Rate 78 78 Respiratory Rate 22 H Blood Pressure 127/53 L Pulse Oximetry 97 Oxygen Delivery Fraction of Inspired Oxygen 45 04/24/24 05:00 04/24/24 05:14 04/24/24 05:30 Temperature Pulse Rate 76 76 76 Respiratory Rate Blood Pressure 106/46 L 106/46 L Pulse Oximetry 98 Oxygen Delivery Mechanical Ventilation Fraction of Inspired Oxygen 45 04/24/24 05:45 04/24/24 06:00 04/24/24 06:00 Temperature Pulse Rate 76 76 76 Respiratory Rate 20 Blood Pressure 101/45 L 106/46 L 105/46 L Pulse Oximetry 97 Oxygen Delivery Fraction of Inspired Oxygen 04/24/24 06:00 04/24/24 06:00 04/24/24 06:00 Temperature Pulse Rate 73 73 73 Respiratory Rate 20 20 Blood Pressure 105/46 L Pulse Oximetry Oxygen Delivery Fraction of Inspired Oxygen 04/24/24 07:52 04/24/24 07:53 04/24/24 08:00 Temperature Pulse Rate 72 71 71 Respiratory Rate 20 20 Blood Pressure 101/54 L Pulse Oximetry Oxygen Delivery Fraction of Inspired Oxygen 04/24/24 08:00 04/24/24 08:50 04/24/24 08:50 Temperature Pulse Rate 71 75 69 Respiratory Rate 20 Blood Pressure 101/54 L Pulse Oximetry 96 Oxygen Delivery Mechanical Ventilation Fraction of Inspired Oxygen 45 04/24/24 09:03 04/24/24 09:03 Temperature Pulse Rate 72 70 Respiratory Rate 20 20 Blood Pressure Pulse Oximetry Oxygen Delivery Fraction of Inspired Oxygen Intake/Output Intake/Output: Intake & Output 04/21/24 04/22/24 04/23/24 04/24/24 23:59 23:59 23:59 23:59 Intake Total 3966.5 5508.2 1274.2 Output Total 1120 840 Balance 3966.5 4388.2 434.2 Meds/Results Medications: Active Medications Generic Name Dose Route Start Last Admin Trade Name Freq PRN Reason Stop Dose Admin Dextrose 12.5 gm 04/22/24 23:06 Dextrose 50% 25 Gm/50 Ml Syringe IV PUSH PRN PRN Hypoglycemia Protocol Enoxaparin Sodium 30 mg 04/23/24 09:00 04/24/24 09:05 Enoxaparin 30 Mg/0.3 Ml Syringe SUB-Q 30 mg DAILY ROSY Administration Glucagon 1 mg 04/22/24 23:06 Glucagon For Inj 1 Mg Vial IM PRN PRN Hypoglycemia Protocol Glucose 15 gm 04/22/24 23:06 Glucose Oral Gel 15 Gm Of Glucse In 37.5 Gm Tube PO PRN PRN Hypoglycemia Protocol Hydrocortisone Sodium Succinate 100 mg 04/23/24 14:00 04/24/24 06:02 Hydrocortisone Sodium Succinate 100 Mg/2 Ml Vial IV PUSH 100 mg Q8HR ROSY Administration Norepinephrine Bitartrate 8 mg in 250 mls @ 0 mls/hr 04/22/24 17:55 04/24/24 08:00 Levophed 8 Mg/D5w 250 Ml IV CONT 0 mcg/min .Q0M ROSY 0 mls/hr Titration Protocol Piperacillin Sod/Tazobactam Sod 2.25 gm in 50 mls @ 100 mls/hr 04/23/24 00:00 04/24/24 06:44 Zosyn 2.25 Gm/Ns 50 Ml IVPB Infused Q6HR ROSY Infusion Fluconazole/Dextrose 100 mg in 50 mls @ 50 mls/hr 04/22/24 22:00 04/23/24 23:23 Diflucan 100 Mg/Nacl 50 Ml IVPB Infused Q24H ROSY Infusion Pantoprazole Sodium 80 mg/ 500 mls @ 50 mls/hr 04/22/24 22:00 04/24/24 08:19 Sodium Chloride IV CONT 50 mls/hr .Q10H ROSY Administration Fentanyl Citrate 2,500 mcg in 250 mls @ 2.5 mls/hr 04/22/24 23:10 04/24/24 09:03 Fentanyl 2,500 Mcg/Ns 250 Ml IV CONT 0 mcg/hr .Q72H ROSY 0 mls/hr Titration Protocol 25 MCG/HR Midazolam HCl 100 mg in 100 mls @ 1 mls/hr 04/22/24 23:10 04/24/24 09:03 Versed 100 Mg/Ns 100 Ml IV CONT 0 mg/hr .Q72H ROSY 0 mls/hr Titration Protocol 1 MG/HR Dextrose 1,000 mls @ 100 mls/hr 04/22/24 23:06 Dextrose 5% 1,000 Ml IVPB PRN PRN Hypoglycemia Protocol Lactated Ringer's 1,000 mls @ 75 mls/hr 04/22/24 23:55 04/24/24 07:51 Lr - Lactated Ringers Iv IV CONT 75 mls/hr .[id number] ROSY Infusion Vasopressin 100 units/ 100 mls @ 0 mls/hr 04/23/24 05:05 04/24/24 08:00 Dextrose IV CONT 0 units/min .Q0M ROSY 0 mls/hr Titration Protocol 0 UNITS/MIN Albumin Human 100 mls @ 60 mls/hr 04/23/24 08:00 04/24/24 07:43 Albutein IVPB Infused Q6HR ROSY Infusion Ipratropium [place] 0.5 mg 04/23/24 14:00 04/24/24 08:49 Ipratropium Br 0.02% Inh Soln 0.5 Mg/2.5 Ml Vial INHALATION 0.5 mg Q6HRT ROSY Administration Levalbuterol HCl 0.63 mg 04/23/24 14:00 04/24/24 08:49 Levalbuterol Neb 1.25 Mg/3 Ml INHALATION 0.63 mg Q6HRT ROSY Administration Midazolam HCl 2 mg 04/22/24 23:06 Midazolam Hcl (*Crx) 2 Mg/2 Ml Vial IV PUSH Q5M PRN ventilator asynchrony Morphine Sulfate 4 mg 04/22/24 22:02 Morphine Sulfate (*Crx) 4 Mg/Ml Inj IV PUSH Q3H PRN Pain Rated 7-10 Multi-Ingred Cream/Lotion/Oil/Oint 1 applic 04/23/24 09:00 04/24/24 09:05 Mineral Oil/White Petrolatum Ointment EACH EYE 1 applic Q12HR ROSY Administration Sodium Chloride 10 ml 04/23/24 14:00 04/24/24 06:02 Central Line Flush IV PUSH 10 ml Q8HR ROSY Administration Sodium Chloride 20 ml 04/23/24 10:16 Central Line Flush IV PUSH PRN PRN after blood draws Vancomycin HCl 1 each 04/22/24 21:03 Vancomycin For Acute Kidney Injury IVPB PRN PRN Vancomycin Protocol Radiology Results: ITS Impressions Chest/Abdomen/Pelvis CTA 04/22/24 18:10 IMPRESSION: Perforated viscus with a large amount of free air and fluid, with mural thickening in the distal stomach and multiple punctate foci of extraluminal air in this area for which site of perforation is suspected. Chest X-Ray 04/24/24 06:43 IMPRESSION: Right basilar atelectasis versus pneumonia with minimal effusion. Bilateral interstitial changes which may indicate pneumonitis versus pulmonary edema. Clinical correlation advised. No significant change from previous examination. Labs Labs: Laboratory Results - last 24 hr 04/23/24 04/23/24 04/23/24 10:30 12:30 13:24 WBC RBC Hgb Hct MCV MCH MCHC RDW Plt Count MPV Immature Gran % (Auto) Neut % (Auto) Lymph % (Auto) [place] % (Auto) Eos % (Auto) Baso % (Auto) Lymph # (Auto) [place] # (Auto) Eos # (Auto) Baso # (Auto) Abs Immat Gran (auto) Absolute Neuts (auto) Absolute Nucleated RBC Total Counted Neutrophils % (Manual) Band Neutrophils % Lymphocytes % (Manual) Monocytes % (Manual) Nucleated RBC % Abs Neuts (Manual) Abs Lymphs (Manual) Abs Monocytes (Manual) Dohle Bodies Platelet Estimate [place] Cells Schistocytes Puncture Site ABG pH ABG pCO2 ABG pO2 ABG PO2/FiO2 Ratio ABG HCO3 ABG O2 Saturation ABG O2 Content ABG Base Excess A-a Gradient Oxyhemoglobin Carboxyhemoglobin Methemoglobin Reduced Hemoglobin Total Hemoglobin O2 Delivery Device O2 Liters/Min Minute Volume Vent Rate Vent Mode FiO2 Tidal Volume PEEP Peak Inspir Pressure Pressure Support Sodium 137 Potassium 6.0 H* Chloride 103 Carbon Dioxide 22 Anion Gap 12 BUN 66 H Creatinine 3.86 H Estim Creat Clear Calc 20 Estimated GFR 15 L Glucose 178 H POC Capillary Glucose 117 H Lactic Acid 2.7 H Calcium 8.3 L Phosphorus Magnesium Total Bilirubin AST ALT Alkaline Phosphatase Total Creatine Kinase Total Protein Albumin Nasal MRSA (PCR) Vancomycin Trough 04/23/24 04/23/24 04/24/24 13:30 18:56 05:00 WBC RBC Hgb Hct MCV MCH MCHC RDW Plt Count MPV Immature Gran % (Auto) Neut % (Auto) Lymph % (Auto) [place] % (Auto) Eos % (Auto) Baso % (Auto) Lymph # (Auto) [place] # (Auto) Eos # (Auto) Baso # (Auto) Abs Immat Gran (auto) Absolute Neuts (auto) Absolute Nucleated RBC Total Counted Neutrophils % (Manual) Band Neutrophils % Lymphocytes % (Manual) Monocytes % (Manual) Nucleated RBC % Abs Neuts (Manual) Abs Lymphs (Manual) Abs Monocytes (Manual) Dohle Bodies Platelet Estimate [place] Cells Schistocytes Puncture Site Artline ABG pH 7.454 H ABG pCO2 32.8 L ABG pO2 103.1 H ABG PO2/FiO2 Ratio 2.29 ABG HCO3 22.5 ABG O2 Saturation 98.0 ABG O2 Content 14.6 L ABG Base Excess -0.9 A-a Gradient 180.4 Oxyhemoglobin 97.7 Carboxyhemoglobin 0.3 Methemoglobin 0.0 Reduced Hemoglobin 2.0 Total Hemoglobin 10.5 L O2 Delivery Device Ventilator O2 Liters/Min Deployment Manager Minute Volume Not Reportable Vent Rate 20 Vent Mode Cmv FiO2 45 Tidal Volume 500 PEEP 8 Peak Inspir Pressure Not Reportable Pressure Support Not Reportable Sodium 138 Potassium 5.2 H Chloride 102 Carbon Dioxide 25 Anion Gap 11 BUN 67 H Creatinine 3.83 H Estim Creat Clear Calc 20 Estimated GFR 15 L Glucose 238 H POC Capillary Glucose Lactic Acid 1.7 Calcium 8.6 Phosphorus Magnesium Total Bilirubin AST ALT Alkaline Phosphatase Total Creatine Kinase Total Protein Albumin Nasal MRSA (PCR) Not detected Vancomycin Trough 9.2 L 04/24/24 05:53 WBC 13.8 H RBC 3.24 L Hgb 9.6 L D Hct 29.4 L MCV 90.7 MCH 29.6 MCHC 32.7 RDW 14.3 Plt Count 178 MPV 11.7 H Immature Gran % (Auto) Not Reportable Neut % (Auto) Not Reportable Lymph % (Auto) Not Reportable [place] % (Auto) Not Reportable Eos % (Auto) Not Reportable Baso % (Auto) Not Reportable Lymph # (Auto) Not Reportable [place] # (Auto) Not Reportable Eos # (Auto) Not Reportable Baso # (Auto) Not Reportable Abs Immat Gran (auto) Not Reportable Absolute Neuts (auto) Not Reportable Absolute Nucleated RBC Not Reportable Total Counted 100 Neutrophils % (Manual) 86 H Band Neutrophils % 11 H Lymphocytes % (Manual) 1 L Monocytes % (Manual) 2 L Nucleated RBC % Not Reportable Abs Neuts (Manual) 13.38 H Abs Lymphs (Manual) 0.13 L Abs Monocytes (Manual) 0.27 Dohle Bodies Present Platelet Estimate Adequate [place] Cells 1+ Schistocytes None seen Puncture Site ABG pH ABG pCO2 ABG pO2 ABG PO2/FiO2 Ratio ABG HCO3 ABG O2 Saturation ABG O2 Content ABG Base Excess A-a Gradient Oxyhemoglobin Carboxyhemoglobin Methemoglobin Reduced Hemoglobin Total Hemoglobin O2 Delivery Device O2 Liters/Min Minute Volume Vent Rate Vent Mode FiO2 Tidal Volume PEEP Peak Inspir Pressure Pressure Support Sodium 141 Potassium 4.3 Chloride 104 Carbon Dioxide 25 Anion Gap 12 BUN 71 H Creatinine 3.70 H Estim Creat Clear Calc 21 Estimated GFR 16 L Glucose 114 H POC Capillary Glucose Lactic Acid Calcium 8.7 Phosphorus 4.8 H Magnesium 2.0 Total Bilirubin 2.5 H AST 26 ALT 21 Alkaline Phosphatase 73 Total Creatine Kinase 387 H Total Protein 6.0 L Albumin 3.3 L Nasal MRSA (PCR) Vancomycin Trough Hospitalist MIPS Advance Care Plan I have confirmed that the patient's Advanced Care Plan is present, code status is documented, or surrogate decision maker is listed in patient medical record.: Yes Medication Reconciliation I have utilized all available resources to obtain, update and review the patients current medications (includes all prescriptions, OTC, herbals, cannabis, and nutritional supplements).: Yes
[2024-04-24 10:11] LABS: Creatinine Urine 128.5 mg/dL
[2024-04-24 10:17] LABS: Potassium Urine Random 77.1 meq/L
[2024-04-24 10:18] LABS: Sodium Urine Random < 5 meq/L
[2024-04-24 10:37] LABS: Eosinophil Urine None Seen % (None Seen); Urine Eos QC 2nd Tech Confirmed
[2024-04-24 10:54] LABS: Cortisol Random > 123.00 ug/dL
--- NOTE | 2024-04-24 11:37 | P.PN_ITS ---
Progress Note: A&P Assessment and Plan (1) Perforated gastric ulcer: Qualifiers: Gastric ulcer chronicity: acute Qualified Code(s): K25.1 - Acute gastric ulcer with perforation Code(s): K25.5 - Chronic or unspecified gastric ulcer with perforation Status: Acute Assessment and Plan: Postop day 2, status post laparotomy with repair of large perforated gastric ulcer with omental Clarence patch. Patient had 3L of gastric contents in the abdomen and severe peritonitis in the upper abdomen. Drains are in place and the output is bile tinged. Output is stable and slowly decreasing. Gastrostomy tube in place decompressing the stomach since we were not able to get a nasogastric tube in place. I discussed with aircraft accessories mechanic, likely will start TPN tomorrow. (2) Acute kidney injury superimposed on stage 3b chronic kidney disease: Code(s): N17.9 - Acute kidney failure, unspecified; N18.32 - Chronic kidney disease, stage 3b Status: Acute Assessment and Plan: Nephrology following. Seems to be stabilizing he is making urine. (3) Septic shock: Code(s): A41.9 - Sepsis, unspecified organism; R65.21 - Severe sepsis with septic shock Status: Acute Assessment and Plan: Hypotension seems to be resolved. He is now off pressors. Continue broad- spectrum IV antibiotics as ordered. (4) Acute respiratory failure: Code(s): J96.00 - Acute respiratory failure, unspecified whether with hypoxia or hypercapnia Status: Acute Assessment and Plan: Vent support is weaning down and FiO2 is down to 45%. Continue management as per aircraft accessories mechanic. Subjective Date/time seen: 04/24/24 11:37 Interval history: Patient is postop day 2 after emergent exploratory laparotomy and repair of large anterior antral gastric perforated ulcer with omental Clarence patch. He remains on the ventilator today. However he is responsive and opens his eyes to voice and pain. FiO2 was weaned down to 45% from 60% yesterday. [place] [address]. Nephrology consult was obtained for acute kidney injury superimposed on chronic renal insufficiency. Patient creatinine is still about 3.7 but he is making urine. She remains on broad- spectrum IV antibiotics to include vancomycin, Zosyn, and Diflucan for antifungal coverage. Exam GI: Other: Abdomen is obese and mildly distended. It is soft. Midline incision is dressed without any drainage and redness from the incision. Left upper quadrant ga strostomy tube site is clean and dry. Gastrostomy tube is to gravity bag drainage. Output is dark gastric and bilious but nonbloody. ELSA drains x2 is only blood tinged. Output is minimally bilious. Objective Data Vital Signs Vital Signs: Vital Signs - 24 hr 04/23/24 12:00 04/23/24 12:00 04/23/24 12:00 Temperature Pulse Rate 119 H 119 H Respiratory Rate Blood Pressure 125/65 125/65 Pulse Oximetry Oxygen Delivery Fraction of Inspired Oxygen 60 04/23/24 12:00 04/23/24 12:00 04/23/24 12:00 Temperature 37.5 C Pulse Rate 119 H 119 H 119 H Respiratory Rate 20 20 20 Blood Pressure 125/65 Pulse Oximetry 96 Oxygen Delivery Fraction of Inspired Oxygen 04/23/24 12:00 04/23/24 12:00 04/23/24 12:05 Temperature Pulse Rate 107 H 119 H 118 H Respiratory Rate 20 Blood Pressure 132/67 Pulse Oximetry 96 Oxygen Delivery Mechanical Ventilation Fraction of Inspired Oxygen 80 04/23/24 12:10 04/23/24 12:15 04/23/24 12:30 Temperature Pulse Rate 119 H 118 H 117 H Respiratory Rate Blood Pressure 135/70 136/70 137/78 Pulse Oximetry Oxygen Delivery Fraction of Inspired Oxygen 04/23/24 12:38 04/23/24 12:38 04/23/24 12:45 Temperature Pulse Rate 114 H 114 H 117 H Respiratory Rate Blood Pressure 140/96 H 140/96 H 110/61 Pulse Oximetry Oxygen Delivery Fraction of Inspired Oxygen 04/23/24 13:47 04/23/24 13:47 04/23/24 14:00 Temperature Pulse Rate 109 H 109 H 107 H Respiratory Rate 20 Blood Pressure 142/67 H Pulse Oximetry 98 Oxygen Delivery Mechanical Ventilation Fraction of Inspired Oxygen 60 04/23/24 14:00 04/23/24 14:00 04/23/24 14:00 Temperature Pulse Rate 107 H 107 H 107 H Respiratory Rate 20 20 Blood Pressure 142/67 H Pulse Oximetry Oxygen Delivery Fraction of Inspired Oxygen 04/23/24 14:00 04/23/24 14:00 04/23/24 14:05 Temperature 37.3 C Pulse Rate 106 H 106 H 106 H Respiratory Rate 20 Blood Pressure 142/67 H 143/67 H Pulse Oximetry 97 Oxygen Delivery Fraction of Inspired Oxygen 04/23/24 14:10 04/23/24 14:15 04/23/24 14:20 Temperature Pulse Rate 111 H 119 H 117 H Respiratory Rate Blood Pressure 153/87 H 135/68 132/64 Pulse Oximetry Oxygen Delivery Fraction of Inspired Oxygen 04/23/24 14:25 04/23/24 14:30 04/23/24 15:30 Temperature Pulse Rate 116 H 114 H 109 H Respiratory Rate Blood Pressure 140/67 138/63 121/58 L Pulse Oximetry Oxygen Delivery Fraction of Inspired Oxygen 04/23/24 15:45 04/23/24 16:00 04/23/24 16:00 Temperature Pulse Rate 108 H 108 H 108 H Respiratory Rate 20 Blood Pressure 117/57 L 122/57 L Pulse Oximetry Oxygen Delivery Fraction of Inspired Oxygen 04/23/24 16:00 04/23/24 16:00 04/23/24 16:00 Temperature Pulse Rate 108 H 108 H 118 H Respiratory Rate 20 Blood Pressure 122/57 L Pulse Oximetry Oxygen Delivery Fraction of Inspired Oxygen 04/23/24 16:00 04/23/24 16:00 04/23/24 16:00 Temperature 37.0 C Pulse Rate 108 H 95 Respiratory Rate 20 20 Blood Pressure 122/57 L Pulse Oximetry 97 97 Oxygen Delivery Mechanical Ventilation Fraction of Inspired Oxygen 80 60 04/23/24 16:15 04/23/24 16:45 04/23/24 17:15 Temperature Pulse Rate 111 H 105 H 99 Respiratory Rate Blood Pressure 90/48 L 113/56 L 121/57 L Pulse Oximetry Oxygen Delivery Fraction of Inspired Oxygen 04/23/24 17:28 04/23/24 17:30 04/23/24 18:00 Temperature Pulse Rate 100 98 95 Respiratory Rate Blood Pressure 134/60 141/62 H Pulse Oximetry 97 Oxygen Delivery Mechanical Ventilation Fraction of Inspired Oxygen 50 04/23/24 18:00 04/23/24 18:00 04/23/24 18:00 Temperature Pulse Rate 95 95 95 Respiratory Rate 20 20 Blood Pressure 141/62 H Pulse Oximetry Oxygen Delivery Fraction of Inspired Oxygen 04/23/24 18:00 04/23/24 18:00 04/23/24 20:00 Temperature 36.9 C Pulse Rate 95 95 75 Respiratory Rate 20 20 Blood Pressure 141/62 H Pulse Oximetry 97 97 Oxygen Delivery Mechanical Ventilation Fraction of Inspired Oxygen 60 04/23/24 20:00 04/23/24 20:00 04/23/24 20:00 Temperature Pulse Rate 75 75 Respiratory Rate Blood Pressure 141/62 H Pulse Oximetry Oxygen Delivery Fraction of Inspired Oxygen 60 04/23/24 20:00 04/23/24 20:00 04/23/24 20:00 Temperature Pulse Rate 75 75 78 Respiratory Rate 20 20 Blood Pressure Pulse Oximetry Oxygen Delivery Fraction of Inspired Oxygen 04/23/24 20:00 04/23/24 20:30 04/23/24 20:40 Temperature 36.8 C Pulse Rate 78 70 70 Respiratory Rate 20 Blood Pressure 149/65 H 154/66 H 154/66 H Pulse Oximetry 97 Oxygen Delivery Fraction of Inspired Oxygen 04/23/24 20:50 04/23/24 20:50 04/23/24 21:00 Temperature Pulse Rate 86 86 71 Respiratory Rate 26 H Blood Pressure 155/66 H Pulse Oximetry 98 Oxygen Delivery Mechanical Ventilation Fraction of Inspired Oxygen 50 04/23/24 21:21 04/23/24 21:24 04/23/24 21:54 Temperature Pulse Rate 71 67 78 Respiratory Rate Blood Pressure 155/66 H 157/66 H Pulse Oximetry Oxygen Delivery Fraction of Inspired Oxygen 04/23/24 21:54 04/23/24 22:00 04/23/24 22:00 Temperature Pulse Rate 78 78 78 Respiratory Rate 20 20 Blood Pressure 116/55 L 104/51 L Pulse Oximetry 97 Oxygen Delivery Fraction of Inspired Oxygen 04/23/24 22:00 04/23/24 22:00 04/23/24 23:00 Temperature Pulse Rate 78 78 92 Respiratory Rate 20 Blood Pressure 116/55 L 116/56 L Pulse Oximetry Oxygen Delivery Fraction of Inspired Oxygen 04/23/24 23:15 04/23/24 23:22 04/24/24 00:00 Temperature Pulse Rate 88 92 86 Respiratory Rate 20 Blood Pressure 120/57 L Pulse Oximetry 98 97 Oxygen Delivery Mechanical Ventilation Mechanical Ventilation Fraction of Inspired Oxygen 45 45 04/24/24 00:00 04/24/24 00:00 04/24/24 00:00 Temperature 36.2 C L Pulse Rate 86 87 Respiratory Rate 20 Blood Pressure 100/49 L Pulse Oximetry 96 Oxygen Delivery Fraction of Inspired Oxygen 45 04/24/24 00:00 04/24/24 00:00 04/24/24 00:00 Temperature Pulse Rate 87 87 87 Respiratory Rate 20 20 Blood Pressure 113/54 L Pulse Oximetry Oxygen Delivery Fraction of Inspired Oxygen 04/24/24 00:00 04/24/24 01:37 04/24/24 02:00 Temperature Pulse Rate 87 79 76 Respiratory Rate 20 Blood Pressure 100/49 L 111/53 L 107/52 L Pulse Oximetry 97 Oxygen Delivery Fraction of Inspired Oxygen 04/24/24 02:00 04/24/24 02:00 04/24/24 02:00 Temperature Pulse Rate 76 76 76 Respiratory Rate 20 20 Blood Pressure 107/52 L Pulse Oximetry Oxygen Delivery Fraction of Inspired Oxygen 04/24/24 02:07 04/24/24 02:25 04/24/24 02:25 Temperature Pulse Rate 76 77 77 Respiratory Rate 20 Blood Pressure 107/52 L Pulse Oximetry 97 Oxygen Delivery Mechanical Ventilation Fraction of Inspired Oxygen 45 04/24/24 02:40 04/24/24 04:00 04/24/24 04:00 Temperature Pulse Rate 80 76 76 Respiratory Rate 21 H 20 Blood Pressure 135/55 L Pulse Oximetry Oxygen Delivery Fraction of Inspired Oxygen 04/24/24 04:00 04/24/24 04:00 04/24/24 04:00 Temperature Pulse Rate 76 76 75 Respiratory Rate 20 20 Blood Pressure 142/57 H Pulse Oximetry 97 Oxygen Delivery Mechanical Ventilation Fraction of Inspired Oxygen 45 04/24/24 04:00 04/24/24 04:00 04/24/24 04:00 Temperature 35.9 C L Pulse Rate 78 78 Respiratory Rate 22 H Blood Pressure 127/53 L Pulse Oximetry 97 Oxygen Delivery Fraction of Inspired Oxygen 45 04/24/24 05:00 04/24/24 05:14 04/24/24 05:30 Temperature Pulse Rate 76 76 76 Respiratory Rate Blood Pressure 106/46 L 106/46 L Pulse Oximetry 98 Oxygen Delivery Mechanical Ventilation Fraction of Inspired Oxygen 45 04/24/24 05:45 04/24/24 06:00 04/24/24 06:00 Temperature Pulse Rate 76 76 76 Respiratory Rate 20 Blood Pressure 101/45 L 106/46 L 105/46 L Pulse Oximetry 97 Oxygen Delivery Fraction of Inspired Oxygen 04/24/24 06:00 04/24/24 06:00 04/24/24 06:00 Temperature Pulse Rate 73 73 73 Respiratory Rate 20 20 Blood Pressure 105/46 L Pulse Oximetry Oxygen Delivery Fraction of Inspired Oxygen 04/24/24 07:52 04/24/24 07:53 04/24/24 08:00 Temperature Pulse Rate 72 71 71 Respiratory Rate 20 20 Blood Pressure 101/54 L Pulse Oximetry Oxygen Delivery Fraction of Inspired Oxygen 04/24/24 08:00 04/24/24 08:00 04/24/24 08:00 Temperature 36.1 C L Pulse Rate 71 71 Respiratory Rate 20 Blood Pressure 101/54 L 101/54 L Pulse Oximetry 96 Oxygen Delivery Fraction of Inspired Oxygen 45 04/24/24 08:50 04/24/24 08:50 04/24/24 09:03 Temperature Pulse Rate 75 69 72 Respiratory Rate 20 20 Blood Pressure Pulse Oximetry 96 Oxygen Delivery Mechanical Ventilation Fraction of Inspired Oxygen 45 04/24/24 09:03 04/24/24 09:06 04/24/24 10:00 Temperature Pulse Rate 70 72 71 Respiratory Rate 20 20 Blood Pressure 128/56 L Pulse Oximetry Oxygen Delivery Fraction of Inspired Oxygen 04/24/24 10:00 04/24/24 10:00 04/24/24 10:00 Temperature Pulse Rate 71 71 71 Respiratory Rate 20 20 Blood Pressure 134/72 Pulse Oximetry Oxygen Delivery Fraction of Inspired Oxygen 04/24/24 10:00 04/24/24 10:25 04/24/24 10:32 Temperature 36.3 C L Pulse Rate 71 79 Respiratory Rate 20 Blood Pressure 134/72 Pulse Oximetry 97 97 Oxygen Delivery Mechanical Ventilation Fraction of Inspired Oxygen 45 45 Intake/Output Intake/Output: Intake & Output 04/21/24 04/22/24 04/23/24 04/24/24 23:59 23:59 23:59 23:59 Intake Total 3966.5 5508.2 1469.2 Output Total 1120 840 Balance 3966.5 4388.2 629.2 Meds/Results Medications: Active Medications Generic Name Dose Route Start Last Admin Trade Name Freq PRN Reason Stop Dose Admin Dextrose 12.5 gm 04/22/24 23:06 Dextrose 50% 25 Gm/50 Ml Syringe IV PUSH PRN PRN Hypoglycemia Protocol Enoxaparin Sodium 30 mg 04/23/24 09:00 04/24/24 09:05 Enoxaparin 30 Mg/0.3 Ml Syringe SUB-Q 30 mg DAILY ROSY Administration Glucagon 1 mg 04/22/24 23:06 Glucagon For Inj 1 Mg Vial IM PRN PRN Hypoglycemia Protocol Glucose 15 gm 04/22/24 23:06 Glucose Oral Gel 15 Gm Of Glucse In 37.5 Gm Tube PO PRN PRN Hypoglycemia Protocol Hydrocortisone Sodium Succinate 50 mg 04/24/24 18:00 Hydrocortisone Sodium Succinate 100 Mg/2 Ml Vial IV PUSH 04/25/24 06:01 Q12H ROSY Norepinephrine Bitartrate 8 mg in 250 mls @ 0 mls/hr 04/22/24 17:55 04/24/24 10:00 Levophed 8 Mg/D5w 250 Ml IV CONT 0 mcg/min .Q0M ROSY 0 mls/hr Titration Protocol Piperacillin Sod/Tazobactam Sod 2.25 gm in 50 mls @ 100 mls/hr 04/23/24 00:00 04/24/24 06:44 Zosyn 2.25 Gm/Ns 50 Ml IVPB Infused Q6HR ROSY Infusion Fluconazole/Dextrose 100 mg in 50 mls @ 50 mls/hr 04/22/24 22:00 04/23/24 23:23 Diflucan 100 Mg/Nacl 50 Ml IVPB Infused Q24H ROSY Infusion Pantoprazole Sodium 80 mg/ 500 mls @ 50 mls/hr 04/22/24 22:00 04/24/24 08:19 Sodium Chloride IV CONT 50 mls/hr .Q10H ROSY Administration Fentanyl Citrate 2,500 mcg in 250 mls @ 0 mls/hr 04/22/24 23:10 04/24/24 10:00 Fentanyl 2,500 Mcg/Ns 250 Ml IV CONT 0 mcg/hr .Q0M ROSY 0 mls/hr Titration Protocol Midazolam HCl 100 mg in 100 mls @ 0 mls/hr 04/22/24 23:10 04/24/24 10:00 Versed 100 Mg/Ns 100 Ml IV CONT 0 mg/hr .Q0M ROSY 0 mls/hr Titration Protocol Dextrose 1,000 mls @ 100 mls/hr 04/22/24 23:06 Dextrose 5% 1,000 Ml IVPB PRN PRN Hypoglycemia Protocol Vasopressin 100 units/ 100 mls @ 0 mls/hr 04/23/24 05:05 04/24/24 10:00 Dextrose IV CONT 0 units/min .Q0M ROSY 0 mls/hr Titration Protocol 0 UNITS/MIN Albumin Human 100 mls @ 60 mls/hr 04/23/24 08:00 04/24/24 07:43 Albutein IVPB Infused Q6HR ROSY Infusion Ipratropium [place] 0.5 mg 04/23/24 14:00 04/24/24 08:49 Ipratropium Br 0.02% Inh Soln 0.5 Mg/2.5 Ml Vial INHALATION 0.5 mg Q6HRT ROSY Administration Levalbuterol HCl 0.63 mg 04/23/24 14:00 04/24/24 08:49 Levalbuterol Neb 1.25 Mg/3 Ml INHALATION 0.63 mg Q6HRT ROSY Administration Midazolam HCl 2 mg 04/22/24 23:06 Midazolam Hcl (*Crx) 2 Mg/2 Ml Vial IV PUSH Q5M PRN ventilator asynchrony Morphine Sulfate 4 mg 04/22/24 22:02 Morphine Sulfate (*Crx) 4 Mg/Ml Inj IV PUSH Q3H PRN Pain Rated 7-10 Multi-Ingred Cream/Lotion/Oil/Oint 1 applic 04/23/24 09:00 04/24/24 09:05 Mineral Oil/White Petrolatum Ointment EACH EYE 1 applic Q12HR ROSY Administration Sodium Chloride 10 ml 04/23/24 14:00 04/24/24 06:02 Central Line Flush IV PUSH 10 ml Q8HR ROSY Administration Sodium Chloride 20 ml 04/23/24 10:16 Central Line Flush IV PUSH PRN PRN after blood draws Radiology Results: ITS Impressions Chest/Abdomen/Pelvis CTA 04/22/24 18:10 IMPRESSION: Perforated viscus with a large amount of free air and fluid, with mural thickening in the distal stomach and multiple punctate foci of extraluminal air in this area for which site of perforation is suspected. Chest X-Ray 04/24/24 06:43 IMPRESSION: Right basilar atelectasis versus pneumonia with minimal effusion. Bilateral interstitial changes which may indicate pneumonitis versus pulmonary edema. Clinical correlation advised. No significant change from previous examination. Labs Labs: Laboratory Results - last 24 hr 04/23/24 04/23/24 04/23/24 12:30 13:24 13:30 WBC RBC Hgb Hct MCV MCH MCHC RDW Plt Count MPV Immature Gran % (Auto) Neut % (Auto) Lymph % (Auto) [place] % (Auto) Eos % (Auto) Baso % (Auto) Lymph # (Auto) [place] # (Auto) Eos # (Auto) Baso # (Auto) Abs Immat Gran (auto) Absolute Neuts (auto) Absolute Nucleated RBC Total Counted Neutrophils % (Manual) Band Neutrophils % Lymphocytes % (Manual) Monocytes % (Manual) Nucleated RBC % Abs Neuts (Manual) Abs Lymphs (Manual) Abs Monocytes (Manual) Dohle Bodies Platelet Estimate [place] Cells Schistocytes Puncture Site ABG pH ABG pCO2 ABG pO2 ABG PO2/FiO2 Ratio ABG HCO3 ABG O2 Saturation ABG O2 Content ABG Base Excess A-a Gradient Oxyhemoglobin Carboxyhemoglobin Methemoglobin Reduced Hemoglobin Total Hemoglobin O2 Delivery Device O2 Liters/Min Minute Volume Vent Rate Vent Mode FiO2 Tidal Volume PEEP Peak Inspir Pressure Pressure Support Sodium 137 Potassium 6.0 H* Chloride 103 Carbon Dioxide 22 Anion Gap 12 BUN 66 H Creatinine 3.86 H Estim Creat Clear Calc 20 Estimated GFR 15 L Glucose 178 H POC Capillary Glucose 117 H Lactic Acid 1.7 Calcium 8.3 L Phosphorus Magnesium Total Bilirubin AST ALT Alkaline Phosphatase Total Creatine Kinase Total Protein Albumin Random Cortisol Urine Eosinophils Ur Random Sodium Ur Random Potassium Urine Creatinine Nasal MRSA (PCR) Not detected Vancomycin Trough 04/23/24 04/24/24 04/24/24 18:56 05:00 05:53 WBC 13.8 H RBC 3.24 L Hgb 9.6 L D Hct 29.4 L MCV 90.7 MCH 29.6 MCHC 32.7 RDW 14.3 Plt Count 178 MPV 11.7 H Immature Gran % (Auto) Not Reportable Neut % (Auto) Not Reportable Lymph % (Auto) Not Reportable [place] % (Auto) Not Reportable Eos % (Auto) Not Reportable Baso % (Auto) Not Reportable Lymph # (Auto) Not Reportable [place] # (Auto) Not Reportable Eos # (Auto) Not Reportable Baso # (Auto) Not Reportable Abs Immat Gran (auto) Not Reportable Absolute Neuts (auto) Not Reportable Absolute Nucleated RBC Not Reportable Total Counted 100 Neutrophils % (Manual) 86 H Band Neutrophils % 11 H Lymphocytes % (Manual) 1 L Monocytes % (Manual) 2 L Nucleated RBC % Not Reportable Abs Neuts (Manual) 13.38 H Abs Lymphs (Manual) 0.13 L Abs Monocytes (Manual) 0.27 Dohle Bodies Present Platelet Estimate Adequate [place] Cells 1+ Schistocytes None seen Puncture Site Artline ABG pH 7.454 H ABG pCO2 32.8 L ABG pO2 103.1 H ABG PO2/FiO2 Ratio 2.29 ABG HCO3 22.5 ABG O2 Saturation 98.0 ABG O2 Content 14.6 L ABG Base Excess -0.9 A-a Gradient 180.4 Oxyhemoglobin 97.7 Carboxyhemoglobin 0.3 Methemoglobin 0.0 Reduced Hemoglobin 2.0 Total Hemoglobin 10.5 L O2 Delivery Device Ventilator O2 Liters/Min Cutting Machine Tender Helper Minute Volume Not Reportable Vent Rate 20 Vent Mode Cmv FiO2 45 Tidal Volume 500 PEEP 8 Peak Inspir Pressure Not Reportable Pressure Support Not Reportable Sodium 138 141 Potassium 5.2 H 4.3 Chloride 102 104 Carbon Dioxide 25 25 Anion Gap 11 12 BUN 67 H 71 H Creatinine 3.83 H 3.70 H Estim Creat Clear Calc 20 21 Estimated GFR 15 L 16 L Glucose 238 H 114 H POC Capillary Glucose Lactic Acid Calcium 8.6 8.7 Phosphorus 4.8 H Magnesium 2.0 Total Bilirubin 2.5 H AST 26 ALT 21 Alkaline Phosphatase 73 Total Creatine Kinase 387 H Total Protein 6.0 L Albumin 3.3 L Random Cortisol > 123.00 Urine Eosinophils Ur Random Sodium Ur Random Potassium Urine Creatinine Nasal MRSA (PCR) Vancomycin Trough 9.2 L 04/24/24 09:26 WBC RBC Hgb Hct MCV MCH MCHC RDW Plt Count MPV Immature Gran % (Auto) Neut % (Auto) Lymph % (Auto) [place] % (Auto) Eos % (Auto) Baso % (Auto) Lymph # (Auto) [place] # (Auto) Eos # (Auto) Baso # (Auto) Abs Immat Gran (auto) Absolute Neuts (auto) Absolute Nucleated RBC Total Counted Neutrophils % (Manual) Band Neutrophils % Lymphocytes % (Manual) Monocytes % (Manual) Nucleated RBC % Abs Neuts (Manual) Abs Lymphs (Manual) Abs Monocytes (Manual) Dohle Bodies Platelet Estimate [place] Cells Schistocytes Puncture Site ABG pH ABG pCO2 ABG pO2 ABG PO2/FiO2 Ratio ABG HCO3 ABG O2 Saturation ABG O2 Content ABG Base Excess A-a Gradient Oxyhemoglobin Carboxyhemoglobin Methemoglobin Reduced Hemoglobin Total Hemoglobin O2 Delivery Device O2 Liters/Min Minute Volume Vent Rate Vent Mode FiO2 Tidal Volume PEEP Peak Inspir Pressure Pressure Support Sodium Potassium Chloride Carbon Dioxide Anion Gap BUN Creatinine Estim Creat Clear Calc Estimated GFR Glucose POC Capillary Glucose Lactic Acid Calcium Phosphorus Magnesium Total Bilirubin AST ALT Alkaline Phosphatase Total Creatine Kinase Total Protein Albumin Random Cortisol Urine Eosinophils None seen Ur Random Sodium < 5 Ur Random Potassium 77.1 Urine Creatinine 128.5 Nasal MRSA (PCR) Vancomycin Trough
[2024-04-24 12:02] LABS: Glucose Point of Care 99 mg/dl (65-105)
[2024-04-24 12:49] LABS: Sodium Urine Random < 5 meq/L
[2024-04-24 12:55] LABS: Creatinine Urine 129.6 mg/dL; Total Protein Urine Random 43 mg/dL; Ur Ttl Prot Creatinine Ratio 0.33 mg/mg (0-0.20)
[2024-04-24 12:59] LABS: Add Urine Microscopic? YES; Appearance Urine Turbid (Clear); Bacteria Urine None Seen /hpf; Bilirubin Urine 2+ (Negative); Blood Urine 3+ (Negative); Color Urine Dark Yellow (Yellow); Glucose Urine UA Negative (Negative); Hyaline Casts Urine Present /lpf; Ketones Urine Negative (Negative); Leukocyte Esterase Ur Trace LEU/UL (Negative); Mucus Urine Present /lpf; Need Manual Microscopic Reviewed; Nitrate Urine Negative (Negative); Non Pathogenic Casts >20; Protein Urine 2+ mg/dL (Negative); Specific Grav Ur 1.026 (1.001-1.035); Squamous Epithelial Cell Urine Many /hpf (Few)
[2024-04-24] MEDS: HYDROCORTISONE SODIUM SUCCINATE 100 MG/2 ML VIAL 50 MG IV PUSH (18:00)
[2024-04-24 18:13] LABS: Glucose Point of Care 92 mg/dl (65-105)
[2024-04-24] MEDS: FLUCONAZOLE 100 MG/NACL 50 ML 100 MG/50 ML BTL 50 MG IVPB (22:47)
[2024-04-24] MEDS: MORPHINE SULFATE (*CRX) 4 MG/ML INJ IV PUSH (23:06)
[2024-04-25] VITALS (25 sets, daily range): BP systolic 117–175; BP diastolic 49–88; PULSE 63–88; RESP 12–23; TEMP 36.8–37.3; O2SAT 94–100; BMI 36.8
[2024-04-25] MEDS: PIPERACILLIN/TAZ 2.25G/NS 50ML 2.25 GM/50 ML BAG IVPB ×4 (00:15→19:50)
[2024-04-25] MEDS: ALBUMIN HUMAN 25% 25 GM/100 ML 100 ML IVPB ×4 (00:15→18:32)
[2024-04-25] MEDS: LEVALBUTEROL NEB 1.25 MG/3 ML 0.63 MG INHALATION ×4 (02:13→20:19)
[2024-04-25] MEDS: IPRATROPIUM BR 0.02% INH SOLN 0.5 MG/2.5 ML VIAL INHALATION ×4 (02:14→20:20)
[2024-04-25 04:58] LABS: Alveolar/Arterial O2 Gradient 148.3 mmHg; Base Excess ABG 0.7 mEq/l (+/-2.0); Carboxyhemoglobin 0.2 % THb (0-2.0); Fractional Inspired Oxygen 45 %; HCO3 ABG 25.1 mEq/l (22.0-26.0); Methemoglobin ABG 0.1 %THb (0-1.5); Oxygen Content ABG 17.3 %vol (16.0-22.0); Oxygen Saturation ABG 98.6 % (95.0-100.0); Oxyhemoglobin 98.3 % THb (90.0-100.0); PCO2 ABG 39.2 mmHg (35.0-45.0); PO2 FiO2 Ratio Arterial Blood 2.84 %; Reduced Hemoglobin 1.4 %THb (0-5.0); Total Hemoglobin 12.4 g/dL (12.0-18.0); pH ABG 7.424 (7.350-7.450)
[2024-04-25] MEDS: PANTOPRAZOLE SODIUM IV 80 MG in SODIUM CHLORIDE 0.9% IV 500 ML 50 MG IV CONT ×2 (04:58→20:15)
[2024-04-25 05:34] LABS: Device VENTILATOR; Site Drawn ARTLINE
[2024-04-25 05:36] LABS: Arterial Blood Gas Minute Volume 7.7 LPM; Arterial Blood Gas PEEP 5 cmH2O; Arterial Blood Gas Vent Mode ASV
[2024-04-25 05:42] LABS: Arterial Blood Gas Pressure Support 18 cmH2O
[2024-04-25 06:10] LABS: Hematocrit 29.7 % (42.0-52.0); Hemoglobin 9.7 g/dL (14.0-18.0); Mean Corpuscular HGB Conc 32.7 g/dl (32-36); Mean Corpuscular Hemoglobin 29.6 pg (26-34); Mean Corpuscular Volume 90.5 fl (80-100); Platelet Count Result 160 k/mm3 (150-375); Red Blood Count 3.28 M/mm3 (4.6-6.20); Red Cell Distribution Width 14.2 % (11.5-14.5); White Blood Count 15.4 K/mm3 (4.5-10.0)
[2024-04-25] MEDS: CENTRAL LINE FLUSH 10 ML IV PUSH ×3 (06:13→22:09)
[2024-04-25] MEDS: HYDROCORTISONE SODIUM SUCCINATE 100 MG/2 ML VIAL 50 MG IV PUSH (06:13)
[2024-04-25 06:44] LABS: Band Neutrophils Percent 9 % (0-6); Burr Cells 1+; Dohle Bodies Present; Large Platelets Present; Lymphocytes Absolute Manual 0.61 K/mm3 (1.1-4.5); Lymphocytes Percent Manual 4 % (18-44); Monocytes Absolute Manual 0.61 K/mm3 (0.1-0.90); Monocytes Percent Manual 4 % (3-9); Neutrophils Absolute Manual 14.16 K/mm3 (1.3-6.7); Neutrophils Percent Manual 83 % (46-73); Platelet Estimate Adequate (Adequate); Schistocytes None Seen; Total Cells Counted 100
[2024-04-25 06:58] LABS: Alanine Aminotransferase 26 U/L (6-50); Albumin Level 3.5 g/dL (3.5-5.1); Alkaline Phosphatase 110 U/L (38-126); Anion Gap 12 mmol/L (4-12); Aspartate Amino Transferase 36 U/L (17-59); Bilirubin,Total 2.4 mg/dL (0.2-1.3); Blood Urea Nitrogen 80 mg/dL (9-20); Carbon Dioxide 25 mmol/L (22-30); Chloride 107 mmol/L (98-107); Estimated CRCL calculation 0 ml/min; Estimated Glomerular Filt Rate 16; Glucose 78 mg/dL (65-110); Magnesium 2.2 mg/dL (1.6-2.3); Phosphorus 5.1 mg/dL (2.5-4.5); Sodium 144 mmol/L (137-145)
[2024-04-25 07:12] LABS: Creatine Kinase 355 U/L (55-170)
--- NOTE | 2024-04-25 09:09 | WPDINTPN ---
Progress Note: A&P Assessment and Plan (1) Acute respiratory failure: Code(s): J96.00 - Acute respiratory failure, unspecified whether with hypoxia or hypercapnia Status: Acute Assessment and Plan: 04/22: Remains intubated post surgery/anesthesia -currently on ASV mode of ventilation 100% minute ventilation, peep of 5, 45% FiO2 -continue bronchodilators -off sedation since 04/24 -patient still seems to be somnolent could be related to residual effect of sedation medications due to acute renal failure -will place patient on SBT and evaluate for extubation, -chest x-ray reviewed will probably diurese patient for extubation (2) Septic shock: Code(s): A41.9 - Sepsis, unspecified organism; R65.21 - Severe sepsis with septic shock Status: Acute Assessment and Plan: 04/22: Patient presented with abdominal pain, CT abdomen and pelvis revealed perforated gastric ulcer, free air in the abdomen. status post ex lap with open gastrostomy tube placement, repair of the large gastric ulcer with Clarence patch, ELSA drain -patient was hypotensive when he arrived to the ER, with systolic blood pressures in the 60s, was given 2.5 L IV fluids, started on the Levophed. Patient then went to the OR where he had the procedure, remained on Levophed, central line was inserted in the OR and patient was transferred to the ICU -upon arrival to the ICU patient required addition of vasopressin along with Levophed -04/23.: Additional 2 L IV fluids were given as patient's blood pressures were low in the 60s and 70s systolic, -OFF ALL PRESSORS 04/24 -wean stress dose steroids -patient currently on Zosyn and fluconazole per surgery -04/23: Blood cultures negative x2 so far -will start albumin as patient is third-spacing (3) Acute kidney injury superimposed on stage 3b chronic kidney disease: Code(s): N17.9 - Acute kidney failure, unspecified; N18.32 - Chronic kidney disease, stage 3b Status: Acute Assessment and Plan: Patient presented with acute on chronic kidney disease -creatinine on admission was 4.40 (baseline creatinine is 1.2-1.4) -patient was given 2.5 L of IV fluids in the ER, -on maintenance IV fluids -04/23 give additional 2 L IV fluid bolus as patient was hypotensive and probably is third-spacing -will infuse albumin for intravascular volume expansion -continue to monitor urine output, renal function electrolytes CK levels slightly elevated -no urine he is on of pills -urine lytes showing prerenal picture (4) Perforated gastric ulcer: Onset Date: 04/2024 Qualifiers: Gastric ulcer chronicity: acute Qualified Code(s): K25.1 - Acute gastric ulcer with perforation Code(s): K25.5 - Chronic or unspecified gastric ulcer with perforation Status: Inactive Assessment and Plan: 04/22: Patient presented with abdominal pain, CT abdomen and pelvis revealed perforated gastric ulcer, free air in the abdomen. status post ex lap with open gastrostomy tube placement, repair of the large gastric ulcer with Clarence patch, ELSA drain -surgery following -continue antibiotics as above -on Protonix infusion, will discuss with surgery (5) Acute hyperkalemia: Code(s): E87.5 - Hyperkalemia Status: Acute Assessment and Plan: RESOLVED -continue to monitor Plan DVT prophylaxis: Lovenox Stress ulcer prophylaxis: Protonix infusion Nutrition: NPO, patient may likely require TPN Code Status: Full code, as discussed code status with 2 daughters Critical Care Time Spent: 34 minutes Discussed with 2 daughters in rounds and updated them with patient's condition and plan of care. I did update them regarding patient being intubated on mechanical ventilation, in septic shock, on 2 pressors, acute on chronic kidney disease, hyperkalemia. I discussed with them regarding code status to which they said they wanted everything to be done but the patient would not want to be in a vegetative state. Due to a high probability of clinically significant, life threatening deterioration, the patient required my highest level of preparedness to intervene emergently and I personally spent this critical care time directly and personally managing the patient. This critical care time included obtaining a history; examining the patient; pulse oximetry; ordering and review of studies; arranging urgent treatment with development of a management plan; evaluation of patient's response to treatment; frequent reassessment; and discussions with other providers. It was exclusive of separately billable procedures and treating other patients and teaching time. Please see Assessment and Plan section and the rest of the note for further information on patient assessment and treatment This dictation may have been done utilizing a voice recognition system. Attempts have been made to correct errors. However, there may be uncorrected grammatical, spelling, and recognitions errors present. Subjective Date/time seen: 04/25/24 09:09 Interval history: Reason for consult: Acute respiratory failure, abdominal pain, perforated gastric ulcer, 04/22: Intubated 04/22: status post ex lap with open gastrostomy tube placement, repair of the large gastric ulcer with Clarence patch, ELSA drain 04/25/2024: Patient seen examined the ICU, remains intubated on ASV mode of ventilation, peep of 5, 45% FiO2. Patient has been off sedation since the morning of 04/24. Patient opens his eyes, follows simple commands in all extremities, nods to questions appropriately. Urine output has been adequate, creatinine stable stable. Remains off all pressors. Hypertensive Review of Systems Review of Systems: ROS unobtainable: Yes unobtainable due to endotracheal tube and unobtainable due to medical condition Exam Narrative: General: Intubated and off sedation, in no acute distress HEENT:? Pupils equal and reactive, sclerae is clear ETT in place Neck:? Supple Respiratory:? Coarse breath sounds bilaterally, decreased at bases, adequate air entry, no wheezing Cardiac:? S1-S2 is normal, rate controlled Abdomen:? Soft, nondistended, tender to palpation, very hypoactive bowel sound Extremities:? Bilateral feet are warm, pulses are palpable, discoloration of the feet has resolved Neuro:? Patient is intubated, not on any sedation, is awake, alert, nods to questions and follows simple commands Skin:? Dry scaly skin - bilateral lower extremity Psych:? Unable to assess at this time Objective Data Vital Signs Vital Signs: Vital Signs - 24 hr 04/24/24 10:04/24/24 10:00 04/24/24 10:00 Temperature Pulse Rate 71 71 71 Respiratory Rate 20 20 Blood Pressure 128/56 L Pulse Oximetry Oxygen Delivery Fraction of Inspired Oxygen 04/24/24 10:04/24/24 10:00 04/24/24 10:00 Temperature 97.4 F L Pulse Rate 71 71 85 Respiratory Rate 20 Blood Pressure 134/72 134/72 Pulse Oximetry 97 Oxygen Delivery Fraction of Inspired Oxygen 04/24/24 10:25 04/24/24 10:32 04/24/24 12:00 Temperature Pulse Rate 79 86 Respiratory Rate Blood Pressure 132/62 Pulse Oximetry 97 Oxygen Delivery Mechanical Ventilation Fraction of Inspired Oxygen 45 45 04/24/24 12:00 04/24/24 12:00 04/24/24 12:00 Temperature Pulse Rate 88 88 88 Respiratory Rate 20 20 Blood Pressure 132/62 Pulse Oximetry Oxygen Delivery Fraction of Inspired Oxygen 04/24/24 12:00 04/24/24 12:00 04/24/24 12:00 Temperature 98.1 F Pulse Rate 87 Respiratory Rate 13 13 Blood Pressure 132/62 Pulse Oximetry 95 95 Oxygen Delivery Mechanical Ventilation Fraction of Inspired Oxygen 45 45 04/24/24 12:00 04/24/24 13:49 04/24/24 13:52 Temperature Pulse Rate 80 74 76 Respiratory Rate 13 Blood Pressure Pulse Oximetry 96 Oxygen Delivery Mechanical Ventilation Fraction of Inspired Oxygen 45 04/24/24 14:00 04/24/24 14:00 04/24/24 14:00 Temperature 98.4 F Pulse Rate 77 79 79 Respiratory Rate 13 Blood Pressure 133/60 128/58 L Pulse Oximetry 96 Oxygen Delivery Fraction of Inspired Oxygen 04/24/24 14:00 04/24/24 14:00 04/24/24 14:00 Temperature Pulse Rate 79 79 80 Respiratory Rate 13 13 Blood Pressure 141/63 H Pulse Oximetry Oxygen Delivery Fraction of Inspired Oxygen 04/24/24 14:04 04/24/24 16:00 04/24/24 16:00 Temperature 98.8 F Pulse Rate 79 81 Respiratory Rate 13 11 L 11 L Blood Pressure 149/64 H Pulse Oximetry 96 96 Oxygen Delivery Mechanical Ventilation Fraction of Inspired Oxygen 35 04/24/24 16:00 04/24/24 16:00 04/24/24 17:08 Temperature Pulse Rate 77 77 Respiratory Rate Blood Pressure Pulse Oximetry 96 Oxygen Delivery Mechanical Ventilation Fraction of Inspired Oxygen 35 35 04/24/24 18:00 04/24/24 18:00 04/24/24 18:50 Temperature 98.8 F Pulse Rate 81 81 83 Respiratory Rate 11 L 15 Blood Pressure 150/65 H Pulse Oximetry 96 Oxygen Delivery Fraction of Inspired Oxygen 04/24/24 18:51 04/24/24 19:52 04/24/24 19:54 Temperature Pulse Rate 85 85 85 Respiratory Rate 15 15 Blood Pressure Pulse Oximetry 96 Oxygen Delivery Mechanical Ventilation Fraction of Inspired Oxygen 35 04/24/24 19:54 04/24/24 20:00 04/24/24 20:16 Temperature 99 F Pulse Rate 81 84 Respiratory Rate 12 Blood Pressure 117/51 L Pulse Oximetry 97 97 Oxygen Delivery Mechanical Ventilation Fraction of Inspired Oxygen 35 35 04/24/24 20:16 04/24/24 20:30 04/24/24 22:00 Temperature Pulse Rate 84 88 88 Respiratory Rate 25 H 22 H Blood Pressure Pulse Oximetry Oxygen Delivery Fraction of Inspired Oxygen 04/24/24 22:00 04/24/24 23:00 04/25/24 00:00 Temperature 99.2 F Pulse Rate 88 82 79 Respiratory Rate 16 16 Blood Pressure 144/52 H Pulse Oximetry 96 98 98 Oxygen Delivery Mechanical Ventilation Mechanical Ventilation Fraction of Inspired Oxygen 35 35 04/25/24 00:00 04/25/24 00:00 04/25/24 00:00 Temperature 99.1 F Pulse Rate 79 73 Respiratory Rate 12 Blood Pressure 117/49 L Pulse Oximetry 94 Oxygen Delivery Fraction of Inspired Oxygen 35 04/25/24 01:54 04/25/24 02:00 04/25/24 02:14 Temperature 98.2 F Pulse Rate 76 76 83 Respiratory Rate 12 23 H Blood Pressure 146/76 H Pulse Oximetry 96 Oxygen Delivery Fraction of Inspired Oxygen 04/25/24 02:22 04/25/24 02:22 04/25/24 04:00 Temperature Pulse Rate 79 81 82 Respiratory Rate 17 12 Blood Pressure Pulse Oximetry 97 97 Oxygen Delivery Mechanical Ventilation Mechanical Ventilation Fraction of Inspired Oxygen 45 35 04/25/24 04:00 04/25/24 04:00 04/25/24 04:00 Temperature 98.4 F Pulse Rate 82 74 Respiratory Rate 15 Blood Pressure 151/80 H Pulse Oximetry 97 Oxygen Delivery Fraction of Inspired Oxygen 35 04/25/24 05:05 04/25/24 06:00 04/25/24 06:00 Temperature 98.2 F Pulse Rate 82 68 63 Respiratory Rate 13 Blood Pressure 163/58 H Pulse Oximetry 100 98 Oxygen Delivery Mechanical Ventilation Fraction of Inspired Oxygen 45 04/25/24 08:43 04/25/24 08:43 Temperature Pulse Rate 73 70 Respiratory Rate 14 Blood Pressure Pulse Oximetry 100 Oxygen Delivery Mechanical Ventilation Fraction of Inspired Oxygen 45 Intake/Output Intake/Output: Intake & Output 04/22/24 04/23/24 04/24/24 04/25/24 23:59 23:59 23:59 23:59 Intake Total 3966.5 5508.2 2303.7 650 Output Total 1120 1550 680 Balance 3966.5 4388.2 753.7 -30 Meds/Results Medications: Active Medications Generic Name Dose Route Start Last Admin Trade Name Freq PRN Reason Stop Dose Admin Dextrose 12.5 gm 04/22/24 23:06 Dextrose 50% 25 Gm/50 Ml Syringe IV PUSH PRN PRN Hypoglycemia Protocol Enoxaparin Sodium 30 mg 04/23/24 09:00 04/24/24 09:05 Enoxaparin 30 Mg/0.3 Ml Syringe SUB-Q 30 mg DAILY ROSY Administration Glucagon 1 mg 04/22/24 23:06 Glucagon For Inj 1 Mg Vial IM PRN PRN Hypoglycemia Protocol Glucose 15 gm 04/22/24 23:06 Glucose Oral Gel 15 Gm Of Glucse In 37.5 Gm Tube PO PRN PRN Hypoglycemia Protocol Hydralazine HCl 10 mg 04/25/24 08:00 Hydralazine Hcl 20 Mg/Ml Vial IV PUSH Q4H PRN Blood Pressure - High Piperacillin Sod/Tazobactam Sod 2.25 gm in 50 mls @ 100 mls/hr 04/23/24 00:00 04/25/24 06:13 Zosyn 2.25 Gm/Ns 50 Ml IVPB 100 mls/hr Q6HR ROSY Administration Fluconazole/Dextrose 100 mg in 50 mls @ 50 mls/hr 04/22/24 22:00 04/24/24 23:45 Diflucan 100 Mg/Nacl 50 Ml IVPB Infused Q24H ROSY Infusion Pantoprazole Sodium 80 mg/ 500 mls @ 50 mls/hr 04/22/24 22:00 04/25/24 04:58 Sodium Chloride IV CONT 50 mls/hr .Q10H ROSY Administration Dextrose 1,000 mls @ 100 mls/hr 04/22/24 23:06 Dextrose 5% 1,000 Ml IVPB PRN PRN Hypoglycemia Protocol Albumin Human 100 mls @ 60 mls/hr 04/25/24 08:05 Albutein IVPB 04/26/24 01:39 Q6HR ROSY Ipratropium [place] 0.5 mg 04/23/24 14:00 04/25/24 08:42 Ipratropium Br 0.02% Inh Soln 0.5 Mg/2.5 Ml Vial INHALATION 0.5 mg Q6HRT ROSY Administration Levalbuterol HCl 0.63 mg 04/23/24 14:00 04/25/24 08:42 Levalbuterol Neb 1.25 Mg/3 Ml INHALATION 0.63 mg Q6HRT ROSY Administration Midazolam HCl 2 mg 04/22/24 23:06 Midazolam Hcl (*Crx) 2 Mg/2 Ml Vial IV PUSH Q5M PRN ventilator asynchrony Morphine Sulfate 4 mg 04/22/24 22:02 04/24/24 23:06 Morphine Sulfate (*Crx) 4 Mg/Ml Inj IV PUSH 4 mg Q3H PRN Administration Pain Rated 7-10 Multi-Ingred Cream/Lotion/Oil/Oint 1 applic 04/23/24 09:00 04/24/24 22:47 Mineral Oil/White Petrolatum Ointment EACH EYE 1 applic Q12HR ROSY Administration Sodium Chloride 10 ml 04/23/24 14:00 04/25/24 06:13 Central Line Flush IV PUSH 10 ml Q8HR ROSY Administration Sodium Chloride 20 ml 04/23/24 10:16 Central Line Flush IV PUSH PRN PRN after blood draws Radiology Results: ITS Impressions Chest/Abdomen/Pelvis CTA 04/22/24 18:10 IMPRESSION: Perforated viscus with a large amount of free air and fluid, with mural thickening in the distal stomach and multiple punctate foci of extraluminal air in this area for which site of perforation is suspected. Renal Ultrasound 04/24/24 11:58 IMPRESSION: Simple cyst in the left kidney upper pole. Other appearances are unremarkable. Chest X-Ray 04/25/24 06:37 Impression: Pulmonary edema pattern with central congestive change and right basilar atelectasis. Support tubes, as above. Labs Labs: Laboratory Results - last 24 hr 04/22/24 04/24/24 04/24/24 17:42 05:53 09:25 WBC RBC Hgb Hct MCV MCH MCHC RDW Plt Count MPV Immature Gran % (Auto) Neut % (Auto) Lymph % (Auto) [place] % (Auto) Eos % (Auto) Baso % (Auto) Lymph # (Auto) [place] # (Auto) Eos # (Auto) Baso # (Auto) Abs Immat Gran (auto) Absolute Neuts (auto) Absolute Nucleated RBC Total Counted Neutrophils % (Manual) Band Neutrophils % Lymphocytes % (Manual) Monocytes % (Manual) Nucleated RBC % Abs Neuts (Manual) Abs Lymphs (Manual) Abs Monocytes (Manual) Dohle Bodies Platelet Estimate Large Platelets [place] Cells Schistocytes Puncture Site ABG pH ABG pCO2 ABG pO2 ABG PO2/FiO2 Ratio ABG HCO3 ABG O2 Saturation ABG O2 Content ABG Base Excess A-a Gradient Oxyhemoglobin Carboxyhemoglobin Methemoglobin Reduced Hemoglobin Total Hemoglobin O2 Delivery Device O2 Liters/Min Minute Volume Vent Rate Vent Mode FiO2 Tidal Volume PEEP Peak Inspir Pressure Pressure Support Sodium Potassium Chloride Carbon Dioxide Anion Gap BUN Creatinine Estim Creat Clear Calc Estimated GFR Glucose POC Capillary Glucose Calcium Phosphorus Magnesium Total Bilirubin AST ALT Alkaline Phosphatase Total Creatine Kinase Total Protein Albumin Random Cortisol > 123.00 Urine Color Dark yellow Urine Appearance Turbid H Urine pH 5.0 Ur Specific [place] 1.026 Urine Protein 2+ H Urine Glucose (UA) Negative Urine Ketones Negative Ur Blood (Man) 3+ H Urine Nitrate Negative Urine Bilirubin 2+ H Urine Urobilinogen 1.0 Ur Leukocyte Esterase Trace H Add Ur Microanalysis Reviewed Urine RBC 3-5 H Urine WBC 6-10 H Ur Squamous Epith Cells Many H Urine Bacteria None seen Urine Casts >20 Hyaline Casts Present Urine Mucus Present Urine Eosinophils U Random Total Protein 43 Ur Random Sodium < 5 Ur Random Potassium Urine Creatinine 129.6 Protein/Creat Ratio 2 0.33 H Crossmatch See Detail 04/24/24 04/24/24 04/24/24 09:26 11:50 18:09 WBC RBC Hgb Hct MCV MCH MCHC RDW Plt Count MPV Immature Gran % (Auto) Neut % (Auto) Lymph % (Auto) [place] % (Auto) Eos % (Auto) Baso % (Auto) Lymph # (Auto) [place] # (Auto) Eos # (Auto) Baso # (Auto) Abs Immat Gran (auto) Absolute Neuts (auto) Absolute Nucleated RBC Total Counted Neutrophils % (Manual) Band Neutrophils % Lymphocytes % (Manual) Monocytes % (Manual) Nucleated RBC % Abs Neuts (Manual) Abs Lymphs (Manual) Abs Monocytes (Manual) Dohle Bodies Platelet Estimate Large Platelets [place] Cells Schistocytes Puncture Site ABG pH ABG pCO2 ABG pO2 ABG PO2/FiO2 Ratio ABG HCO3 ABG O2 Saturation ABG O2 Content ABG Base Excess A-a Gradient Oxyhemoglobin Carboxyhemoglobin Methemoglobin Reduced Hemoglobin Total Hemoglobin O2 Delivery Device O2 Liters/Min Minute Volume Vent Rate Vent Mode FiO2 Tidal Volume PEEP Peak Inspir Pressure Pressure Support Sodium Potassium Chloride Carbon Dioxide Anion Gap BUN Creatinine Estim Creat Clear Calc Estimated GFR Glucose POC Capillary Glucose 99 92 Calcium Phosphorus Magnesium Total Bilirubin AST ALT Alkaline Phosphatase Total Creatine Kinase Total Protein Albumin Random Cortisol Urine Color Urine Appearance Urine pH Ur Specific [place] Urine Protein Urine Glucose (UA) Urine Ketones Ur Blood (Man) Urine Nitrate Urine Bilirubin Urine Urobilinogen Ur Leukocyte Esterase Add Ur Microanalysis Urine RBC Urine WBC Ur Squamous Epith Cells Urine Bacteria Urine Casts Hyaline Casts Urine Mucus Urine Eosinophils None seen U Random Total Protein Ur Random Sodium < 5 Ur Random Potassium 77.1 Urine Creatinine 128.5 Protein/Creat Ratio 2 Crossmatch 04/25/24 04/25/24 04:39 05:58 WBC 15.4 H RBC 3.28 L Hgb 9.7 L Hct 29.7 L MCV 90.5 MCH 29.6 MCHC 32.7 RDW 14.2 Plt Count 160 MPV 12.0 H Immature Gran % (Auto) Not Reportable Neut % (Auto) Not Reportable Lymph % (Auto) Not Reportable [place] % (Auto) Not Reportable Eos % (Auto) Not Reportable Baso % (Auto) Not Reportable Lymph # (Auto) Not Reportable [place] # (Auto) Not Reportable Eos # (Auto) Not Reportable Baso # (Auto) Not Reportable Abs Immat Gran (auto) Not Reportable Absolute Neuts (auto) Not Reportable Absolute Nucleated RBC Not Reportable Total Counted 100 Neutrophils % (Manual) 83 H Band Neutrophils % 9 H Lymphocytes % (Manual) 4 L Monocytes % (Manual) 4 Nucleated RBC % Not Reportable Abs Neuts (Manual) 14.16 H Abs Lymphs (Manual) 0.61 L Abs Monocytes (Manual) 0.61 Dohle Bodies Present Platelet Estimate Adequate Large Platelets Present [place] Cells 1+ Schistocytes None seen Puncture Site [place] ABG pH 7.424 ABG pCO2 39.2 ABG pO2 128.0 H ABG PO2/FiO2 Ratio 2.84 ABG HCO3 25.1 ABG O2 Saturation 98.6 ABG O2 Content 17.3 ABG Base Excess 0.7 A-a Gradient 148.3 Oxyhemoglobin 98.3 Carboxyhemoglobin 0.2 Methemoglobin 0.1 Reduced Hemoglobin 1.4 Total Hemoglobin 12.4 O2 Delivery Device Ventilator O2 Liters/Min Not Reportable Minute Volume 7.7 Vent Rate Not Reportable Vent Mode Asv FiO2 45 Tidal Volume Not Reportable PEEP 5 Peak Inspir Pressure Not Reportable Pressure Support 18 Sodium 144 Potassium 4.0 Chloride 107 Carbon Dioxide 25 Anion Gap 12 BUN 80 H Creatinine 3.68 H Estim Creat Clear Calc 0 Estimated GFR 16 L Glucose 78 POC Capillary Glucose Calcium 9.0 Phosphorus 5.1 H Magnesium 2.2 Total Bilirubin 2.4 H AST 36 ALT 26 Alkaline Phosphatase 110 Total Creatine Kinase 355 H Total Protein 6.0 L Albumin 3.5 Random Cortisol Urine Color Urine Appearance Urine pH Ur Specific [place] Urine Protein Urine Glucose (UA) Urine Ketones Ur Blood (Man) Urine Nitrate Urine Bilirubin Urine Urobilinogen Ur Leukocyte Esterase Add Ur Microanalysis Urine RBC Urine WBC Ur Squamous Epith Cells Urine Bacteria Urine Casts Hyaline Casts Urine Mucus Urine Eosinophils U Random Total Protein Ur Random Sodium Ur Random Potassium Urine Creatinine Protein/Creat Ratio 2 Crossmatch Quality VTE Prophylaxis VTE prophylaxis: pharmacologic ordered
[2024-04-25] MEDS: ENOXAPARIN 30 MG/0.3 ML SYRINGE SUB-Q (09:22)
--- NOTE | 2024-04-25 09:22 | P.PNIM_ITS ---
Progress Note: A&P Assessment and Plan (1) Perforated abdominal viscus: Code(s): R19.8 - Other specified symptoms and signs involving the digestive system and abdomen Status: Acute (2) Abdominal pain: Code(s): R10.9 - Unspecified abdominal pain Status: Acute (3) Acute kidney injury superimposed on stage 3b chronic kidney disease: Code(s): N17.9 - Acute kidney failure, unspecified; N18.32 - Chronic kidney disease, stage 3b Status: Acute (4) PAD (peripheral artery disease): Code(s): I73.9 - Peripheral vascular disease, unspecified Status: Acute (5) Shock circulatory: Code(s): R57.9 - Shock, unspecified Status: Acute (6) Acute respiratory failure: Code(s): J96.00 - Acute respiratory failure, unspecified whether with hypoxia or hypercapnia Status: Acute Plan (1) Acute respiratory failure: Code(s): J96.00 - Acute respiratory failure, unspecified whether with hypoxia or hypercapnia Status: Acute Assessment and Plan: 04/22: Remains intubated post surgery/anesthesia currently on ASV mode of ventilation 100% minute ventilation, peep of 5, 45% FiO2 continue bronchodilators Weaning trial per game operator (2) Septic shock: Code(s): A41.9 - Sepsis, unspecified organism; R65.21 - Severe sepsis with septic shock Status: Acute Assessment and Plan: 04/22: Patient presented with abdominal pain, CT abdomen and pelvis revealed perforated gastric ulcer, free air in the abdomen. status post ex lap with open gastrostomy tube placement, repair of the large gastric ulcer with Clarence patch, ELSA drain -patient was hypotensive when he arrived to the ER, with systolic blood pressures in the 60s, was given 2.5 L IV fluids, started on the Levophed. Patient then went to the OR where he had the procedure, remained on Levophed, central line was inserted in the OR and patient was transferred to the ICU upon arrival to the ICU patient required addition of vasopressin along with Levophed Patient is off vasopressors now, no growth from better culture (3) Acute kidney injury superimposed on stage 3b chronic kidney disease: Code(s): N17.9 - Acute kidney failure, unspecified; N18.32 - Chronic kidney disease, stage 3b Status: Acute Assessment and Plan: Patient presented with acute on chronic kidney disease creatinine on admission was 4.40 (baseline creatinine is 1.2-1.4) Likely secondary to sepsis Creatinine is trending down slowly today CK levels slightly elevated -no urine he is on of pills -urine lytes showing prerenal picture (4) Perforated gastric ulcer: Onset Date: 04/2024 Qualifiers: Gastric ulcer chronicity: acute Qualified Code(s): K25.1 - Acute gastric ulcer with perforation Code(s): K25.5 - Chronic or unspecified gastric ulcer with perforation Status: Inactive Assessment and Plan: 04/22: Patient presented with abdominal pain, CT abdomen and pelvis revealed perforated gastric ulcer, free air in the abdomen. status post ex lap with open gastrostomy tube placement, repair of the large gastric ulcer with Clarence patch, ELSA drain Patient on Protonix infusion Further management treatment per general surgeon (5) Acute hyperkalemia: Code(s): E87.5 - Hyperkalemia Status: Acute Assessment and Plan: RESOLVED -continue to monitor Subjective Date/time seen: 04/25/24 09:22 Interval history: Patient was intubated, on weaning trial. Patient was able to blink eyes. No obvious distress. Afebrile pressure stable. Labs reviewed, leukocytosis persists improving. Creatinine is trending down Exam Narrative: General: Intubated and off sedation, in no acute distress HEENT:? Pupils equal and reactive, sclerae is clear ETT in place Neck:? Supple Respiratory:? Coarse breath sounds bilaterally, decreased at bases, adequate air entry, no wheezing Cardiac:? S1-S2 is normal, rate controlled Abdomen:? Soft, nondistended, tender to palpation, very hypoactive bowel sound Extremities:? Bilateral feet are warm, pulses are palpable, discoloration of the feet has resolved Neuro:? Patient is intubated, not on any sedation, is awake, alert, nods to questions and follows simple commands Skin:? Dry scaly skin - bilateral lower extremity Psych:? Unable to assess at this time Objective Data Vital Signs Vital Signs: Vital Signs - 24 hr 04/24/24 10:04/24/24 10:04/24/24 10:00 Temperature Pulse Rate 71 71 71 Respiratory Rate 20 20 Blood Pressure 128/56 L Pulse Oximetry Oxygen Delivery Fraction of Inspired Oxygen 04/24/24 10:04/24/24 10:00 04/24/24 10:00 Temperature 97.4 F L Pulse Rate 71 71 85 Respiratory Rate 20 Blood Pressure 134/72 134/72 Pulse Oximetry 97 Oxygen Delivery Fraction of Inspired Oxygen 04/24/24 10:25 04/24/24 10:32 04/24/24 12:00 Temperature Pulse Rate 79 86 Respiratory Rate Blood Pressure 132/62 Pulse Oximetry 97 Oxygen Delivery Mechanical Ventilation Fraction of Inspired Oxygen 45 45 04/24/24 12:00 04/24/24 12:00 04/24/24 12:00 Temperature Pulse Rate 88 88 88 Respiratory Rate 20 20 Blood Pressure 132/62 Pulse Oximetry Oxygen Delivery Fraction of Inspired Oxygen 04/24/24 12:00 04/24/24 12:00 04/24/24 12:00 Temperature 98.1 F Pulse Rate 87 Respiratory Rate 13 13 Blood Pressure 132/62 Pulse Oximetry 95 95 Oxygen Delivery Mechanical Ventilation Fraction of Inspired Oxygen 45 45 04/24/24 12:00 04/24/24 13:49 04/24/24 13:52 Temperature Pulse Rate 80 74 76 Respiratory Rate 13 Blood Pressure Pulse Oximetry 96 Oxygen Delivery Mechanical Ventilation Fraction of Inspired Oxygen 45 04/24/24 14:00 04/24/24 14:00 04/24/24 14:00 Temperature 98.4 F Pulse Rate 77 79 79 Respiratory Rate 13 Blood Pressure 133/60 128/58 L Pulse Oximetry 96 Oxygen Delivery Fraction of Inspired Oxygen 04/24/24 14:00 04/24/24 14:00 04/24/24 14:00 Temperature Pulse Rate 79 79 80 Respiratory Rate 13 13 Blood Pressure 141/63 H Pulse Oximetry Oxygen Delivery Fraction of Inspired Oxygen 04/24/24 14:04 04/24/24 16:00 04/24/24 16:00 Temperature 98.8 F Pulse Rate 79 81 Respiratory Rate 13 11 L 11 L Blood Pressure 149/64 H Pulse Oximetry 96 96 Oxygen Delivery Mechanical Ventilation Fraction of Inspired Oxygen 35 04/24/24 16:00 04/24/24 16:00 04/24/24 17:08 Temperature Pulse Rate 77 77 Respiratory Rate Blood Pressure Pulse Oximetry 96 Oxygen Delivery Mechanical Ventilation Fraction of Inspired Oxygen 35 35 04/24/24 18:00 04/24/24 18:00 04/24/24 18:50 Temperature 98.8 F Pulse Rate 81 81 83 Respiratory Rate 11 L 15 Blood Pressure 150/65 H Pulse Oximetry 96 Oxygen Delivery Fraction of Inspired Oxygen 04/24/24 18:51 04/24/24 19:52 04/24/24 19:54 Temperature Pulse Rate 85 85 85 Respiratory Rate 15 15 Blood Pressure Pulse Oximetry 96 Oxygen Delivery Mechanical Ventilation Fraction of Inspired Oxygen 35 04/24/24 19:54 04/24/24 20:00 04/24/24 20:16 Temperature 99 F Pulse Rate 81 84 Respiratory Rate 12 Blood Pressure 117/51 L Pulse Oximetry 97 97 Oxygen Delivery Mechanical Ventilation Fraction of Inspired Oxygen 35 35 04/24/24 20:16 04/24/24 20:30 04/24/24 22:00 Temperature Pulse Rate 84 88 88 Respiratory Rate 25 H 22 H Blood Pressure Pulse Oximetry Oxygen Delivery Fraction of Inspired Oxygen 04/24/24 22:00 04/24/24 23:00 04/25/24 00:00 Temperature 99.2 F Pulse Rate 88 82 79 Respiratory Rate 16 16 Blood Pressure 144/52 H Pulse Oximetry 96 98 98 Oxygen Delivery Mechanical Ventilation Mechanical Ventilation Fraction of Inspired Oxygen 35 35 04/25/24 00:00 04/25/24 00:00 04/25/24 00:00 Temperature 99.1 F Pulse Rate 79 73 Respiratory Rate 12 Blood Pressure 117/49 L Pulse Oximetry 94 Oxygen Delivery Fraction of Inspired Oxygen 35 04/25/24 01:54 04/25/24 02:00 04/25/24 02:14 Temperature 98.2 F Pulse Rate 76 76 83 Respiratory Rate 12 23 H Blood Pressure 146/76 H Pulse Oximetry 96 Oxygen Delivery Fraction of Inspired Oxygen 04/25/24 02:22 04/25/24 02:22 04/25/24 04:00 Temperature Pulse Rate 79 81 82 Respiratory Rate 17 12 Blood Pressure Pulse Oximetry 97 97 Oxygen Delivery Mechanical Ventilation Mechanical Ventilation Fraction of Inspired Oxygen 45 35 04/25/24 04:00 04/25/24 04:00 04/25/24 04:00 Temperature 98.4 F Pulse Rate 82 74 Respiratory Rate 15 Blood Pressure 151/80 H Pulse Oximetry 97 Oxygen Delivery Fraction of Inspired Oxygen 35 04/25/24 05:05 04/25/24 06:00 04/25/24 06:00 Temperature 98.2 F Pulse Rate 82 68 63 Respiratory Rate 13 Blood Pressure 163/58 H Pulse Oximetry 100 98 Oxygen Delivery Mechanical Ventilation Fraction of Inspired Oxygen 45 04/25/24 08:00 04/25/24 08:00 04/25/24 08:00 Temperature 98.4 F Pulse Rate 78 73 Respiratory Rate 13 Blood Pressure 159/84 H Pulse Oximetry 97 Oxygen Delivery Fraction of Inspired Oxygen 35 04/25/24 08:43 04/25/24 08:43 Temperature Pulse Rate 73 70 Respiratory Rate 14 Blood Pressure Pulse Oximetry 100 Oxygen Delivery Mechanical Ventilation Fraction of Inspired Oxygen 45 Intake/Output Intake/Output: Intake & Output 04/22/24 04/23/24 04/24/24 04/25/24 23:59 23:59 23:59 23:59 Intake Total 3966.5 5508.2 2303.7 650 Output Total 1120 1550 680 Balance 3966.5 4388.2 753.7 -30 Meds/Results Medications: Active Medications Generic Name Dose Route Start Last Admin Trade Name Freq PRN Reason Stop Dose Admin Dextrose 12.5 gm 04/22/24 23:06 Dextrose 50% 25 Gm/50 Ml Syringe IV PUSH PRN PRN Hypoglycemia Protocol Enoxaparin Sodium 30 mg 04/23/24 09:00 04/24/24 09:05 Enoxaparin 30 Mg/0.3 Ml Syringe SUB-Q 30 mg DAILY ROSY Administration Glucagon 1 mg 04/22/24 23:06 Glucagon For Inj 1 Mg Vial IM PRN PRN Hypoglycemia Protocol Glucose 15 gm 04/22/24 23:06 Glucose Oral Gel 15 Gm Of Glucse In 37.5 Gm Tube PO PRN PRN Hypoglycemia Protocol Hydralazine HCl 10 mg 04/25/24 08:00 Hydralazine Hcl 20 Mg/Ml Vial IV PUSH Q4H PRN Blood Pressure - High Piperacillin Sod/Tazobactam Sod 2.25 gm in 50 mls @ 100 mls/hr 04/23/24 00:00 04/25/24 06:13 Zosyn 2.25 Gm/Ns 50 Ml IVPB 100 mls/hr Q6HR ROSY Administration Fluconazole/Dextrose 100 mg in 50 mls @ 50 mls/hr 04/22/24 22:00 04/24/24 23:45 Diflucan 100 Mg/Nacl 50 Ml IVPB Infused Q24H ROSY Infusion Pantoprazole Sodium 80 mg/ 500 mls @ 50 mls/hr 04/22/24 22:00 04/25/24 04:58 Sodium Chloride IV CONT 50 mls/hr .Q10H ROSY Administration Dextrose 1,000 mls @ 100 mls/hr 04/22/24 23:06 Dextrose 5% 1,000 Ml IVPB PRN PRN Hypoglycemia Protocol Albumin Human 100 mls @ 60 mls/hr 04/25/24 08:05 Albutein IVPB 04/26/24 01:39 Q6HR ROSY Ipratropium [place] 0.5 mg 04/23/24 14:00 04/25/24 08:42 Ipratropium Br 0.02% Inh Soln 0.5 Mg/2.5 Ml Vial INHALATION 0.5 mg Q6HRT ROSY Administration Levalbuterol HCl 0.63 mg 04/23/24 14:00 04/25/24 08:42 Levalbuterol Neb 1.25 Mg/3 Ml INHALATION 0.63 mg Q6HRT ROSY Administration Midazolam HCl 2 mg 04/22/24 23:06 Midazolam Hcl (*Crx) 2 Mg/2 Ml Vial IV PUSH Q5M PRN ventilator asynchrony Morphine Sulfate 4 mg 04/22/24 22:02 04/24/24 23:06 Morphine Sulfate (*Crx) 4 Mg/Ml Inj IV PUSH 4 mg Q3H PRN Administration Pain Rated 7-10 Multi-Ingred Cream/Lotion/Oil/Oint 1 applic 04/23/24 09:00 04/25/24 09:13 Mineral Oil/White Petrolatum Ointment EACH EYE Not Given Q12HR ROSY Sodium Chloride 10 ml 04/23/24 14:00 04/25/24 06:13 Central Line Flush IV PUSH 10 ml Q8HR ROYS Administration Sodium Chloride 20 ml 04/23/24 10:16 Central Line Flush IV PUSH PRN PRN after blood draws Radiology Results: ITS Impressions Chest/Abdomen/Pelvis CTA 04/22/24 18:10 IMPRESSION: Perforated viscus with a large amount of free air and fluid, with mural thickening in the distal stomach and multiple punctate foci of extraluminal air in this area for which site of perforation is suspected. Renal Ultrasound 04/24/24 11:58 IMPRESSION: Simple cyst in the left kidney upper pole. Other appearances are unremarkable. Chest X-Ray 04/25/24 06:37 Impression: Pulmonary edema pattern with central congestive change and right basilar atelectasis. Support tubes, as above. Labs Labs: Laboratory Results - last 24 hr 04/22/24 04/24/24 04/24/24 17:42 05:53 09:25 WBC RBC Hgb Hct MCV MCH MCHC RDW Plt Count MPV Immature Gran % (Auto) Neut % (Auto) Lymph % (Auto) [place] % (Auto) Eos % (Auto) Baso % (Auto) Lymph # (Auto) [place] # (Auto) Eos # (Auto) Baso # (Auto) Abs Immat Gran (auto) Absolute Neuts (auto) Absolute Nucleated RBC Total Counted Neutrophils % (Manual) Band Neutrophils % Lymphocytes % (Manual) Monocytes % (Manual) Nucleated RBC % Abs Neuts (Manual) Abs Lymphs (Manual) Abs Monocytes (Manual) Dohle Bodies Platelet Estimate Large Platelets Fredy Cells Schistocytes Puncture Site ABG pH ABG pCO2 ABG pO2 ABG PO2/FiO2 Ratio ABG HCO3 ABG O2 Saturation ABG O2 Content ABG Base Excess A-a Gradient Oxyhemoglobin Carboxyhemoglobin Methemoglobin Reduced Hemoglobin Total Hemoglobin O2 Delivery Device O2 Liters/Min Minute Volume Vent Rate Vent Mode FiO2 Tidal Volume PEEP Peak Inspir Pressure Pressure Support Sodium Potassium Chloride Carbon Dioxide Anion Gap BUN Creatinine Estim Creat Clear Calc Estimated GFR Glucose POC Capillary Glucose Calcium Phosphorus Magnesium Total Bilirubin AST ALT Alkaline Phosphatase Total Creatine Kinase Total Protein Albumin Random Cortisol > 123.00 Urine Color Dark yellow Urine Appearance Turbid H Urine pH 5.0 Ur Specific [place] 1.026 Urine Protein 2+ H Urine Glucose (UA) Negative Urine Ketones Negative Ur Blood (Man) 3+ H Urine Nitrate Negative Urine Bilirubin 2+ H Urine Urobilinogen 1.0 Ur Leukocyte Esterase Trace H Add Ur Microanalysis Reviewed Urine RBC 3-5 H Urine WBC 6-10 H Ur Squamous Epith Cells Many H Urine Bacteria None seen Urine Casts >20 Hyaline Casts Present Urine Mucus Present Urine Eosinophils U Random Total Protein 43 Ur Random Sodium < 5 Ur Random Potassium Urine Creatinine 129.6 Protein/Creat Ratio 2 0.33 H Crossmatch See Detail 04/24/24 04/24/24 04/24/24 09:26 11:50 18:09 WBC RBC Hgb Hct MCV MCH MCHC RDW Plt Count MPV Immature Gran % (Auto) Neut % (Auto) Lymph % (Auto) [place] % (Auto) Eos % (Auto) Baso % (Auto) Lymph # (Auto) [place] # (Auto) Eos # (Auto) Baso # (Auto) Abs Immat Gran (auto) Absolute Neuts (auto) Absolute Nucleated RBC Total Counted Neutrophils % (Manual) Band Neutrophils % Lymphocytes % (Manual) Monocytes % (Manual) Nucleated RBC % Abs Neuts (Manual) Abs Lymphs (Manual) Abs Monocytes (Manual) Dohle Bodies Platelet Estimate Large Platelets Fredy Cells Schistocytes Puncture Site ABG pH ABG pCO2 ABG pO2 ABG PO2/FiO2 Ratio ABG HCO3 ABG O2 Saturation ABG O2 Content ABG Base Excess A-a Gradient Oxyhemoglobin Carboxyhemoglobin Methemoglobin Reduced Hemoglobin Total Hemoglobin O2 Delivery Device O2 Liters/Min Minute Volume Vent Rate Vent Mode FiO2 Tidal Volume PEEP Peak Inspir Pressure Pressure Support Sodium Potassium Chloride Carbon Dioxide Anion Gap BUN Creatinine Estim Creat Clear Calc Estimated GFR Glucose POC Capillary Glucose 99 92 Calcium Phosphorus Magnesium Total Bilirubin AST ALT Alkaline Phosphatase Total Creatine Kinase Total Protein Albumin Random Cortisol Urine Color Urine Appearance Urine pH Ur Specific [place] Urine Protein Urine Glucose (UA) Urine Ketones Ur Blood (Man) Urine Nitrate Urine Bilirubin Urine Urobilinogen Ur Leukocyte Esterase Add Ur Microanalysis Urine RBC Urine WBC Ur Squamous Epith Cells Urine Bacteria Urine Casts Hyaline Casts Urine Mucus Urine Eosinophils None seen U Random Total Protein Ur Random Sodium < 5 Ur Random Potassium 77.1 Urine Creatinine 128.5 Protein/Creat Ratio 2 Crossmatch 04/25/24 04/25/24 04:39 05:58 WBC 15.4 H RBC 3.28 L Hgb 9.7 L Hct 29.7 L MCV 90.5 MCH 29.6 MCHC 32.7 RDW 14.2 Plt Count 160 MPV 12.0 H Immature Gran % (Auto) Not Reportable Neut % (Auto) Not Reportable Lymph % (Auto) Not Reportable [place] % (Auto) Not Reportable Eos % (Auto) Not Reportable Baso % (Auto) Not Reportable Lymph # (Auto) Not Reportable [place] # (Auto) Not Reportable Eos # (Auto) Not Reportable Baso # (Auto) Not Reportable Abs Immat Gran (auto) Not Reportable Absolute Neuts (auto) Not Reportable Absolute Nucleated RBC Not Reportable Total Counted 100 Neutrophils % (Manual) 83 H Band Neutrophils % 9 H Lymphocytes % (Manual) 4 L Monocytes % (Manual) 4 Nucleated RBC % Not Reportable Abs Neuts (Manual) 14.16 H Abs Lymphs (Manual) 0.61 L Abs Monocytes (Manual) 0.61 Dohle Bodies Present Platelet Estimate Adequate Large Platelets Present [place] Cells 1+ Schistocytes None seen Puncture Site Artline ABG pH 7.424 ABG pCO2 39.2 ABG pO2 128.0 H ABG PO2/FiO2 Ratio 2.84 ABG HCO3 25.1 ABG O2 Saturation 98.6 ABG O2 Content 17.3 ABG Base Excess 0.7 A-a Gradient 148.3 Oxyhemoglobin 98.3 Carboxyhemoglobin 0.2 Methemoglobin 0.1 Reduced Hemoglobin 1.4 Total Hemoglobin 12.4 O2 Delivery Device Ventilator O2 Liters/Min Not Reportable Minute Volume 7.7 Vent Rate Not Reportable Vent Mode Asv FiO2 45 Tidal Volume Not Reportable PEEP 5 Peak Inspir Pressure Not Reportable Pressure Support 18 Sodium 144 Potassium 4.0 Chloride 107 Carbon Dioxide 25 Anion Gap 12 BUN 80 H Creatinine 3.68 H Estim Creat Clear Calc 0 Estimated GFR 16 L Glucose 78 POC Capillary Glucose Calcium 9.0 Phosphorus 5.1 H Magnesium 2.2 Total Bilirubin 2.4 H AST 36 ALT 26 Alkaline Phosphatase 110 Total Creatine Kinase 355 H Total Protein 6.0 L Albumin 3.5 Random Cortisol Urine Color Urine Appearance Urine pH Ur Specific [place] Urine Protein Urine Glucose (UA) Urine Ketones Ur Blood (Man) Urine Nitrate Urine Bilirubin Urine Urobilinogen Ur Leukocyte Esterase Add Ur Microanalysis Urine RBC Urine WBC Ur Squamous Epith Cells Urine Bacteria Urine Casts Hyaline Casts Urine Mucus Urine Eosinophils U Random Total Protein Ur Random Sodium Ur Random Potassium Urine Creatinine Protein/Creat Ratio 2 Crossmatch
--- NOTE | 2024-04-25 09:35 | P.PNNP_ITS ---
Progress Note: A&P Assessment and Plan (1) Acute kidney injury superimposed on stage 3b chronic kidney disease: Code(s): N17.9 - Acute kidney failure, unspecified; N18.32 - Chronic kidney disease, stage 3b Status: Acute Assessment and Plan: the patient has Chronic kidney disease. His baseline creatinine is around 1.5. This is probably related to hypertension, peripheral vascular disease, and possibly chronic nonsteroidal anti-inflammatory agent use. we can evaluate this further when he recovers, possibly in the office if he needs follow-up. The patient has acute kidney injury. CT shows normal kidneys Renal sono simple cyst x 1 o/w unremarkable. Urine 'lytes are prerenal there are multiple contributing factors. diclofenac hypotension septic shock third spacing pt will be starting TPN this afternoon. okay to give a one time dose of diuretics later after TPN starts. once belly improves, his third spacing should mobilize and may improve available fluid to help kidney recovery. if the third spacing improves too quickly he may go into fluid overload shifting the fluid into the lungs. will watch volume status closely. starting tpn bumex 2mg IV once after TPN starts BP support resp support Will check another lab tomorrow. discussed with Dr Tony (2) Perforated gastric ulcer: Onset Date: 04/2024 Qualifiers: Gastric ulcer chronicity: acute Qualified Code(s): K25.1 - Acute gastric ulcer with perforation Code(s): K25.5 - Chronic or unspecified gastric ulcer with perforation Status: Inactive Assessment and Plan: He had a perforated gastric ulcer, likely related to nonsteroidal anti- inflammatory agents. This was repaired in the OR and he is recovering from this . (3) Acute respiratory failure: Code(s): J96.00 - Acute respiratory failure, unspecified whether with hypoxia or hypercapnia Status: Acute Assessment and Plan: the patient is on the ventilator. he is awake after sedation stopped considering removing ETT (4) Shock circulatory: Code(s): R57.9 - Shock, unspecified Status: Acute Assessment and Plan: The patient is improved in this regard. He is off norepinephrine and vasopressin. Blood pressure seems to be doing pretty well in the low 100s. (5) Anemia: Code(s): D64.9 - Anemia, unspecified Status: Acute Assessment and Plan: Hemoglobin was low on admission and required blood transfusion. hemoglobin dropped from 13.4 to 9.6 and now stable at 9.7. no need for epo yet (6) Acute hyperkalemia: Code(s): E87.5 - Hyperkalemia Status: Acute Assessment and Plan: Patient had hyperkalemia probably for related to steroidals plus the renal failure. His potassium is fine today. (7) HTN (hypertension): Code(s): I10 - Essential (primary) hypertension Status: Acute Assessment and Plan: Blood pressure meds are on hold (8) Hypercholesterolemia: Code(s): E78.00 - Pure hypercholesterolemia, unspecified Status: Acute Assessment and Plan: atorvastatin is on hold Subjective Date/time seen: 04/25/24 09:35 Interval history: pt is awake and regards examiner. he does not interact much more than that he looks comfortable Review of Systems Review of Systems: ROS unobtainable: Yes unobtainable due to endotracheal tube Exam Narrative: WDWN male intubated in NAD Neuro makes eye contact but doesn't interact much skin no rash head ncat lungs coarse mildly bilaterally cor reg no rub abd BS absent and distended ext 1+ bilateral presacral edema. Objective Data Vital Signs Vital Signs: Vital Signs - 24 hr 04/24/24 10:04/24/24 10:00 04/24/24 10:00 Temperature Pulse Rate 71 71 71 Respiratory Rate 20 20 Blood Pressure 128/56 L Pulse Oximetry Oxygen Delivery Fraction of Inspired Oxygen 04/24/24 10:00 04/24/24 10:00 04/24/24 10:00 Temperature 97.4 F L Pulse Rate 71 71 85 Respiratory Rate 20 Blood Pressure 134/72 134/72 Pulse Oximetry 97 Oxygen Delivery Fraction of Inspired Oxygen 04/24/24 10:25 04/24/24 10:32 04/24/24 12:00 Temperature Pulse Rate 79 86 Respiratory Rate Blood Pressure 132/62 Pulse Oximetry 97 Oxygen Delivery Mechanical Ventilation Fraction of Inspired Oxygen 45 45 04/24/24 12:00 04/24/24 12:00 04/24/24 12:00 Temperature Pulse Rate 88 88 88 Respiratory Rate 20 20 Blood Pressure 132/62 Pulse Oximetry Oxygen Delivery Fraction of Inspired Oxygen 04/24/24 12:00 04/24/24 12:00 04/24/24 12:00 Temperature 98.1 F Pulse Rate 87 Respiratory Rate 13 13 Blood Pressure 132/62 Pulse Oximetry 95 95 Oxygen Delivery Mechanical Ventilation Fraction of Inspired Oxygen 45 45 04/24/24 12:00 04/24/24 13:49 04/24/24 13:52 Temperature Pulse Rate 80 74 76 Respiratory Rate 13 Blood Pressure Pulse Oximetry 96 Oxygen Delivery Mechanical Ventilation Fraction of Inspired Oxygen 45 04/24/24 14:00 04/24/24 14:00 04/24/24 14:00 Temperature 98.4 F Pulse Rate 77 79 79 Respiratory Rate 13 Blood Pressure 133/60 128/58 L Pulse Oximetry 96 Oxygen Delivery Fraction of Inspired Oxygen 04/24/24 14:00 04/24/24 14:00 04/24/24 14:00 Temperature Pulse Rate 79 79 80 Respiratory Rate 13 13 Blood Pressure 141/63 H Pulse Oximetry Oxygen Delivery Fraction of Inspired Oxygen 04/24/24 14:04 04/24/24 16:00 04/24/24 16:00 Temperature 98.8 F Pulse Rate 79 81 Respiratory Rate 13 11 L 11 L Blood Pressure 149/64 H Pulse Oximetry 96 96 Oxygen Delivery Mechanical Ventilation Fraction of Inspired Oxygen 35 04/24/24 16:00 04/24/24 16:00 04/24/24 17:08 Temperature Pulse Rate 77 77 Respiratory Rate Blood Pressure Pulse Oximetry 96 Oxygen Delivery Mechanical Ventilation Fraction of Inspired Oxygen 35 35 04/24/24 18:00 04/24/24 18:00 04/24/24 18:50 Temperature 98.8 F Pulse Rate 81 81 83 Respiratory Rate 11 L 15 Blood Pressure 150/65 H Pulse Oximetry 96 Oxygen Delivery Fraction of Inspired Oxygen 04/24/24 18:51 04/24/24 19:52 04/24/24 19:54 Temperature Pulse Rate 85 85 85 Respiratory Rate 15 15 Blood Pressure Pulse Oximetry 96 Oxygen Delivery Mechanical Ventilation Fraction of Inspired Oxygen 35 04/24/24 19:54 04/24/24 20:00 04/24/24 20:16 Temperature 99 F Pulse Rate 81 84 Respiratory Rate 12 Blood Pressure 117/51 L Pulse Oximetry 97 97 Oxygen Delivery Mechanical Ventilation Fraction of Inspired Oxygen 35 35 04/24/24 20:16 04/24/24 20:30 04/24/24 22:00 Temperature Pulse Rate 84 88 88 Respiratory Rate 25 H 22 H Blood Pressure Pulse Oximetry Oxygen Delivery Fraction of Inspired Oxygen 04/24/24 22:00 04/24/24 23:00 04/25/24 00:00 Temperature 99.2 F Pulse Rate 88 82 79 Respiratory Rate 16 16 Blood Pressure 144/52 H Pulse Oximetry 96 98 98 Oxygen Delivery Mechanical Ventilation Mechanical Ventilation Fraction of Inspired Oxygen 35 35 04/25/24 00:00 04/25/24 00:00 04/25/24 00:00 Temperature 99.1 F Pulse Rate 79 73 Respiratory Rate 12 Blood Pressure 117/49 L Pulse Oximetry 94 Oxygen Delivery Fraction of Inspired Oxygen 35 04/25/24 01:54 04/25/24 02:00 04/25/24 02:14 Temperature 98.2 F Pulse Rate 76 76 83 Respiratory Rate 12 23 H Blood Pressure 146/76 H Pulse Oximetry 96 Oxygen Delivery Fraction of Inspired Oxygen 04/25/24 02:22 04/25/24 02:22 04/25/24 04:00 Temperature Pulse Rate 79 81 82 Respiratory Rate 17 12 Blood Pressure Pulse Oximetry 97 97 Oxygen Delivery Mechanical Ventilation Mechanical Ventilation Fraction of Inspired Oxygen 45 35 04/25/24 04:00 04/25/24 04:00 04/25/24 04:00 Temperature 98.4 F Pulse Rate 82 74 Respiratory Rate 15 Blood Pressure 151/80 H Pulse Oximetry 97 Oxygen Delivery Fraction of Inspired Oxygen 35 04/25/24 05:05 04/25/24 06:00 04/25/24 06:00 Temperature 98.2 F Pulse Rate 82 68 63 Respiratory Rate 13 Blood Pressure 163/58 H Pulse Oximetry 100 98 Oxygen Delivery Mechanical Ventilation Fraction of Inspired Oxygen 45 04/25/24 08:00 04/25/24 08:00 04/25/24 08:00 Temperature 98.4 F Pulse Rate 78 73 Respiratory Rate 13 Blood Pressure 159/84 H Pulse Oximetry 97 Oxygen Delivery Fraction of Inspired Oxygen 35 04/25/24 08:43 04/25/24 08:43 Temperature Pulse Rate 73 70 Respiratory Rate 14 Blood Pressure Pulse Oximetry 100 Oxygen Delivery Mechanical Ventilation Fraction of Inspired Oxygen 45 Intake/Output Intake/Output: Intake & Output 04/22/24 04/23/24 04/24/24 04/25/24 23:59 23:59 23:59 23:59 Intake Total 3966.5 5508.2 2303.7 650 Output Total 1120 1550 680 Balance 3966.5 4388.2 753.7 -30 Meds/Results Medications: Active Medications Generic Name Dose Route Start Last Admin Trade Name Freq PRN Reason Stop Dose Admin Dextrose 12.5 gm 04/22/24 23:06 Dextrose 50% 25 Gm/50 Ml Syringe IV PUSH PRN PRN Hypoglycemia Protocol Enoxaparin Sodium 30 mg 04/23/24 09:00 04/25/24 09:22 Enoxaparin 30 Mg/0.3 Ml Syringe SUB-Q 30 mg DAILY ROSY Administration Glucagon 1 mg 04/22/24 23:06 Glucagon For Inj 1 Mg Vial IM PRN PRN Hypoglycemia Protocol Glucose 15 gm 04/22/24 23:06 Glucose Oral Gel 15 Gm Of Glucse In 37.5 Gm Tube PO PRN PRN Hypoglycemia Protocol Hydralazine HCl 10 mg 04/25/24 08:00 Hydralazine Hcl 20 Mg/Ml Vial IV PUSH Q4H PRN Blood Pressure - High Piperacillin Sod/Tazobactam Sod 2.25 gm in 50 mls @ 100 mls/hr 04/23/24 00:00 04/25/24 06:13 Zosyn 2.25 Gm/Ns 50 Ml IVPB 100 mls/hr Q6HR ROSY Administration Fluconazole/Dextrose 100 mg in 50 mls @ 50 mls/hr 04/22/24 22:00 04/24/24 23:45 Diflucan 100 Mg/Nacl 50 Ml IVPB Infused Q24H ROSY Infusion Pantoprazole Sodium 80 mg/ 500 mls @ 50 mls/hr 04/22/24 22:00 04/25/24 04:58 Sodium Chloride IV CONT 50 mls/hr .Q10H ROSY Administration Dextrose 1,000 mls @ 100 mls/hr 04/22/24 23:06 Dextrose 5% 1,000 Ml IVPB PRN PRN Hypoglycemia Protocol Albumin Human 100 mls @ 60 mls/hr 04/25/24 08:05 04/25/24 09:22 Albutein IVPB 04/26/24 01:39 60 mls/hr Q6HR ROSY Administration Ipratropium [place] 0.5 mg 04/23/24 14:00 04/25/24 08:42 Ipratropium Br 0.02% Inh Soln 0.5 Mg/2.5 Ml Vial INHALATION 0.5 mg Q6HRT ROSY Administration Levalbuterol HCl 0.63 mg 04/23/24 14:00 04/25/24 08:42 Levalbuterol Neb 1.25 Mg/3 Ml INHALATION 0.63 mg Q6HRT ROSY Administration Midazolam HCl 2 mg 04/22/24 23:06 Midazolam Hcl (*Crx) 2 Mg/2 Ml Vial IV PUSH Q5M PRN ventilator asynchrony Morphine Sulfate 4 mg 04/22/24 22:02 04/24/24 23:06 Morphine Sulfate (*Crx) 4 Mg/Ml Inj IV PUSH 4 mg Q3H PRN Administration Pain Rated 7-10 Multi-Ingred Cream/Lotion/Oil/Oint 1 applic 04/23/24 09:00 04/25/24 09:13 Mineral Oil/White Petrolatum Ointment EACH EYE Not Given Q12HR ROSY Sodium Chloride 10 ml 04/23/24 14:00 04/25/24 06:13 Central Line Flush IV PUSH 10 ml Q8HR ROSY Administration Sodium Chloride 20 ml 04/23/24 10:16 Central Line Flush IV PUSH PRN PRN after blood draws Radiology Results: ITS Impressions Chest/Abdomen/Pelvis CTA 04/22/24 18:10 IMPRESSION: Perforated viscus with a large amount of free air and fluid, with mural thickening in the distal stomach and multiple punctate foci of extraluminal air in this area for which site of perforation is suspected. Renal Ultrasound 04/24/24 11:58 IMPRESSION: Simple cyst in the left kidney upper pole. Other appearances are unremarkable. Chest X-Ray 04/25/24 06:37 Impression: Pulmonary edema pattern with central congestive change and right basilar atelectasis. Support tubes, as above. Labs Labs: Laboratory Results - last 24 hr 04/22/24 04/24/24 04/24/24 17:42 05:53 09:25 WBC RBC Hgb Hct MCV MCH MCHC RDW Plt Count MPV Immature Gran % (Auto) Neut % (Auto) Lymph % (Auto) [place] % (Auto) Eos % (Auto) Baso % (Auto) Lymph # (Auto) [place] # (Auto) Eos # (Auto) Baso # (Auto) Abs Immat Gran (auto) Absolute Neuts (auto) Absolute Nucleated RBC Total Counted Neutrophils % (Manual) Band Neutrophils % Lymphocytes % (Manual) Monocytes % (Manual) Nucleated RBC % Abs Neuts (Manual) Abs Lymphs (Manual) Abs Monocytes (Manual) Dohle Bodies Platelet Estimate Large Platelets Fredy Cells Schistocytes Puncture Site ABG pH ABG pCO2 ABG pO2 ABG PO2/FiO2 Ratio ABG HCO3 ABG O2 Saturation ABG O2 Content ABG Base Excess A-a Gradient Oxyhemoglobin Carboxyhemoglobin Methemoglobin Reduced Hemoglobin Total Hemoglobin O2 Delivery Device O2 Liters/Min Minute Volume Vent Rate Vent Mode FiO2 Tidal Volume PEEP Peak Inspir Pressure Pressure Support Sodium Potassium Chloride Carbon Dioxide Anion Gap BUN Creatinine Estim Creat Clear Calc Estimated GFR Glucose POC Capillary Glucose Calcium Phosphorus Magnesium Total Bilirubin AST ALT Alkaline Phosphatase Total Creatine Kinase Total Protein Albumin Random Cortisol > 123.00 Urine Color Dark yellow Urine Appearance Turbid H Urine pH 5.0 Ur Specific [place] 1.026 Urine Protein 2+ H Urine Glucose (UA) Negative Urine Ketones Negative Ur Blood (Man) 3+ H Urine Nitrate Negative Urine Bilirubin 2+ H Urine Urobilinogen 1.0 Ur Leukocyte Esterase Trace H Add Ur Microanalysis Reviewed Urine RBC 3-5 H Urine WBC 6-10 H Ur Squamous Epith Cells Many H Urine Bacteria None seen Urine Casts >20 Hyaline Casts Present Urine Mucus Present Urine Eosinophils U Random Total Protein 43 Ur Random Sodium < 5 Ur Random Potassium Urine Creatinine 129.6 Protein/Creat Ratio 2 0.33 H Crossmatch See Detail 04/24/24 04/24/24 04/24/24 09:26 11:50 18:09 WBC RBC Hgb Hct MCV MCH MCHC RDW Plt Count MPV Immature Gran % (Auto) Neut % (Auto) Lymph % (Auto) [place] % (Auto) Eos % (Auto) Baso % (Auto) Lymph # (Auto) [place] # (Auto) Eos # (Auto) Baso # (Auto) Abs Immat Gran (auto) Absolute Neuts (auto) Absolute Nucleated RBC Total Counted Neutrophils % (Manual) Band Neutrophils % Lymphocytes % (Manual) Monocytes % (Manual) Nucleated RBC % Abs Neuts (Manual) Abs Lymphs (Manual) Abs Monocytes (Manual) Dohle Bodies Platelet Estimate Large Platelets Fredy Cells Schistocytes Puncture Site ABG pH ABG pCO2 ABG pO2 ABG PO2/FiO2 Ratio ABG HCO3 ABG O2 Saturation ABG O2 Content ABG Base Excess A-a Gradient Oxyhemoglobin Carboxyhemoglobin Methemoglobin Reduced Hemoglobin Total Hemoglobin O2 Delivery Device O2 Liters/Min Minute Volume Vent Rate Vent Mode FiO2 Tidal Volume PEEP Peak Inspir Pressure Pressure Support Sodium Potassium Chloride Carbon Dioxide Anion Gap BUN Creatinine Estim Creat Clear Calc Estimated GFR Glucose POC Capillary Glucose 99 92 Calcium Phosphorus Magnesium Total Bilirubin AST ALT Alkaline Phosphatase Total Creatine Kinase Total Protein Albumin Random Cortisol Urine Color Urine Appearance Urine pH Ur Specific [place] Urine Protein Urine Glucose (UA) Urine Ketones Ur Blood (Man) Urine Nitrate Urine Bilirubin Urine Urobilinogen Ur Leukocyte Esterase Add Ur Microanalysis Urine RBC Urine WBC Ur Squamous Epith Cells Urine Bacteria Urine Casts Hyaline Casts Urine Mucus Urine Eosinophils None seen U Random Total Protein Ur Random Sodium < 5 Ur Random Potassium 77.1 Urine Creatinine 128.5 Protein/Creat Ratio 2 Crossmatch 04/25/24 04/25/24 04:39 05:58 WBC 15.4 H RBC 3.28 L Hgb 9.7 L Hct 29.7 L MCV 90.5 MCH 29.6 MCHC 32.7 RDW 14.2 Plt Count 160 MPV 12.0 H Immature Gran % (Auto) Not Reportable Neut % (Auto) Not Reportable Lymph % (Auto) Not Reportable [place] % (Auto) Not Reportable Eos % (Auto) Not Reportable Baso % (Auto) Not Reportable Lymph # (Auto) Not Reportable [place] # (Auto) Not Reportable Eos # (Auto) Not Reportable Baso # (Auto) Not Reportable Abs Immat Gran (auto) Not Reportable Absolute Neuts (auto) Not Reportable Absolute Nucleated RBC Not Reportable Total Counted 100 Neutrophils % (Manual) 83 H Band Neutrophils % 9 H Lymphocytes % (Manual) 4 L Monocytes % (Manual) 4 Nucleated RBC % Not Reportable Abs Neuts (Manual) 14.16 H Abs Lymphs (Manual) 0.61 L Abs Monocytes (Manual) 0.61 Dohle Bodies Present Platelet Estimate Adequate Large Platelets Present Central Cells 1+ Schistocytes None seen Puncture Site Artline ABG pH 7.424 ABG pCO2 39.2 ABG pO2 128.0 H ABG PO2/FiO2 Ratio 2.84 ABG HCO3 25.1 ABG O2 Saturation 98.6 ABG O2 Content 17.3 ABG Base Excess 0.7 A-a Gradient 148.3 Oxyhemoglobin 98.3 Carboxyhemoglobin 0.2 Methemoglobin 0.1 Reduced Hemoglobin 1.4 Total Hemoglobin 12.4 O2 Delivery Device Ventilator O2 Liters/Min Not Reportable Minute Volume 7.7 Vent Rate Not Reportable Vent Mode Asv FiO2 45 Tidal Volume Not Reportable PEEP 5 Peak Inspir Pressure Not Reportable Pressure Support 18 Sodium 144 Potassium 4.0 Chloride 107 Carbon Dioxide 25 Anion Gap 12 BUN 80 H Creatinine 3.68 H Estim Creat Clear Calc 0 Estimated GFR 16 L Glucose 78 POC Capillary Glucose Calcium 9.0 Phosphorus 5.1 H Magnesium 2.2 Total Bilirubin 2.4 H AST 36 ALT 26 Alkaline Phosphatase 110 Total Creatine Kinase 355 H Total Protein 6.0 L Albumin 3.5 Random Cortisol Urine Color Urine Appearance Urine pH Ur Specific [place] Urine Protein Urine Glucose (UA) Urine Ketones Ur Blood (Man) Urine Nitrate Urine Bilirubin Urine Urobilinogen Ur Leukocyte Esterase Add Ur Microanalysis Urine RBC Urine WBC Ur Squamous Epith Cells Urine Bacteria Urine Casts Hyaline Casts Urine Mucus Urine Eosinophils U Random Total Protein Ur Random Sodium Ur Random Potassium Urine Creatinine Protein/Creat Ratio 2 Crossmatch
--- NOTE | 2024-04-25 10:45 | P.PNGS_ITS ---
Progress Note: A&P Assessment and Plan (1) Perforated gastric ulcer: Onset Date: 04/2024 Qualifiers: Gastric ulcer chronicity: acute Qualified Code(s): K25.1 - Acute gastric ulcer with perforation Code(s): K25.5 - Chronic or unspecified gastric ulcer with perforation Status: Inactive Assessment and Plan: Postop day 3, status post laparotomy with repair of large perforated gastric ulcer with omental Clarence patch. Patient had 3L of gastric contents in the abdomen and severe peritonitis in the upper abdomen. ELSA drains x [address] with more serous output today. Gastrostomy tube in place decompressing the stomach since we were not able to get a nasogastric tube in place. Continue G-tube to gravity. Will start TPN today as we do not plan to feed him for at least a week postop while the repair is healing. Will consult the dietitian for recommendat ions. Continue IV Protonix, and continue IV Zosyn and Fluconazole. Continue supportive care. (2) Acute kidney injury superimposed on stage 3b chronic kidney disease: Code(s): N17.9 - Acute kidney failure, unspecified; N18.32 - Chronic kidney disease, stage 3b Status: Acute Assessment and Plan: Nephrology following. Continues to have adequate urine output. (3) Septic shock: Code(s): A41.9 - Sepsis, unspecified organism; R65.21 - Severe sepsis with septic shock Status: Acute Assessment and Plan: Remains off vasopressors. Continue broad-spectrum IV antibiotics as ordered. (4) Acute respiratory failure: Code(s): J96.00 - Acute respiratory failure, unspecified whether with hypoxia or hypercapnia Status: Acute Assessment and Plan: Vent support is weaning down and FiO2 remains at 45%. He is off sedation and on a breathing trial this morning. 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 Plan I have discussed the patient's case and plan of care with Dr. Moreno. Subjective Subjective Date/Time Seen: 04/25/24 10:45 Post Op day: 3 (Exploratory laparotomy with repair of antral gastric ulcer with omental Clarence patch, Placement of open gastrostomy tube) Interval history: Seen in the ICU. He is intubated but off sedation. He is alert and nods appropriately to questions. He is not having any abdominal pain but is having some back pain. This improved after his head of the bed was elevated. He is currently on a breathing trial. He is on a Protonix infusion. Otherwise, no vasopressors or other infusions running. Gtube output was 150 cc overnight. ELSA drains x 2 noted. Urine output 450 overnight (37.5 cc/hr overnight). Review of Systems Review of Systems: ROS unobtainable: Yes unobtainable due to endotracheal tube Exam Const: General: comfortable, alert, awake and ill appearing Orientation/consciousness: Other orientation findings (intubated) GI: Inspection: distended, incision (dressing dry and intact) and other (ELSA drain x 2 with cloudy serous drainage) GI Palp: Yes Soft to palpation, Yes Tenderness to palpation present (GI) and No Guarding due to palpation present (GI) Auscultation: absent bowel sounds Other: G tube to gravity with minimal amount of bilious appearing output in odom bag Urinary Catheter: Urinary Catheter: patent and draining Objective Data Vital Signs Vital Signs: Vital Signs - 24 hr 04/24/24 12:00 04/24/24 12:00 04/24/24 12:00 Temperature Pulse Rate 86 88 88 Respiratory Rate 20 20 Blood Pressure 132/62 Pulse Oximetry Oxygen Delivery Fraction of Inspired Oxygen 04/24/24 12:00 04/24/24 12:00 04/24/24 12:00 Temperature 98.1 F Pulse Rate 88 87 Respiratory Rate 13 Blood Pressure 132/62 132/62 Pulse Oximetry 95 Oxygen Delivery Fraction of Inspired Oxygen 45 04/24/24 12:00 04/24/24 12:00 04/24/24 13:49 Temperature Pulse Rate 80 74 Respiratory Rate 13 13 Blood Pressure Pulse Oximetry 95 Oxygen Delivery Mechanical Ventilation Fraction of Inspired Oxygen 45 04/24/24 13:52 04/24/24 14:00 04/24/24 14:00 Temperature 98.4 F Pulse Rate 76 77 79 Respiratory Rate 13 Blood Pressure 133/60 Pulse Oximetry 96 96 Oxygen Delivery Mechanical Ventilation Fraction of Inspired Oxygen 45 04/24/24 14:00 04/24/24 14:00 04/24/24 14:00 Temperature Pulse Rate 79 79 79 Respiratory Rate 13 13 Blood Pressure 128/58 L Pulse Oximetry Oxygen Delivery Fraction of Inspired Oxygen 04/24/24 14:00 04/24/24 14:04 04/24/24 16:00 Temperature 98.8 F Pulse Rate 80 79 81 Respiratory Rate 13 11 L Blood Pressure 141/63 H 149/64 H Pulse Oximetry 96 Oxygen Delivery Fraction of Inspired Oxygen 04/24/24 16:00 04/24/24 16:00 04/24/24 16:00 Temperature Pulse Rate 77 Respiratory Rate 11 L Blood Pressure Pulse Oximetry 96 Oxygen Delivery Mechanical Ventilation Fraction of Inspired Oxygen 35 35 04/24/24 17:08 04/24/24 18:00 04/24/24 18:00 Temperature 98.8 F Pulse Rate 77 81 81 Respiratory Rate 11 L Blood Pressure 150/65 H Pulse Oximetry 96 96 Oxygen Delivery Mechanical Ventilation Fraction of Inspired Oxygen 35 04/24/24 18:50 04/24/24 18:51 04/24/24 19:52 Temperature Pulse Rate 83 85 85 Respiratory Rate 15 15 15 Blood Pressure Pulse Oximetry 96 Oxygen Delivery Mechanical Ventilation Fraction of Inspired Oxygen 35 04/24/24 19:54 04/24/24 19:54 04/24/24 20:00 Temperature 99 F Pulse Rate 85 81 Respiratory Rate 12 Blood Pressure 117/51 L Pulse Oximetry 97 Oxygen Delivery Fraction of Inspired Oxygen 35 04/24/24 20:16 04/24/24 20:16 04/24/24 20:30 Temperature Pulse Rate 84 84 88 Respiratory Rate 25 H 22 H Blood Pressure Pulse Oximetry 97 Oxygen Delivery Mechanical Ventilation Fraction of Inspired Oxygen 35 04/24/24 22:00 04/24/24 22:00 04/24/24 23:00 Temperature 99.2 F Pulse Rate 88 88 82 Respiratory Rate 16 Blood Pressure 144/52 H Pulse Oximetry 96 98 Oxygen Delivery Mechanical Ventilation Fraction of Inspired Oxygen 35 04/25/24 00:00 04/25/24 00:00 04/25/24 00:00 Temperature Pulse Rate 79 79 Respiratory Rate 16 Blood Pressure Pulse Oximetry 98 Oxygen Delivery Mechanical Ventilation Fraction of Inspired Oxygen 35 35 04/25/24 00:00 04/25/24 01:54 04/25/24 02:00 Temperature 99.1 F 98.2 F Pulse Rate 73 76 76 Respiratory Rate 12 12 Blood Pressure 117/49 L 146/76 H Pulse Oximetry 94 96 Oxygen Delivery Fraction of Inspired Oxygen 04/25/24 02:14 04/25/24 02:22 04/25/24 02:22 Temperature Pulse Rate 83 79 81 Respiratory Rate 23 H 17 Blood Pressure Pulse Oximetry 97 Oxygen Delivery Mechanical Ventilation Fraction of Inspired Oxygen 45 04/25/24 04:00 04/25/24 04:00 04/25/24 04:00 Temperature Pulse Rate 82 82 Respiratory Rate 12 Blood Pressure Pulse Oximetry 97 Oxygen Delivery Mechanical Ventilation Fraction of Inspired Oxygen 35 35 04/25/24 04:00 04/25/24 05:05 04/25/24 06:00 Temperature 98.4 F Pulse Rate 74 82 68 Respiratory Rate 15 Blood Pressure 151/80 H Pulse Oximetry 97 100 Oxygen Delivery Mechanical Ventilation Fraction of Inspired Oxygen 45 04/25/24 06:00 04/25/24 08:00 04/25/24 08:00 Temperature 98.2 F Pulse Rate 63 78 Respiratory Rate 13 Blood Pressure 163/58 H Pulse Oximetry 98 Oxygen Delivery Fraction of Inspired Oxygen 35 04/25/24 08:00 04/25/24 08:43 04/25/24 08:43 Temperature 98.4 F Pulse Rate 73 73 70 Respiratory Rate 13 14 Blood Pressure 159/84 H Pulse Oximetry 97 100 Oxygen Delivery Mechanical Ventilation Fraction of Inspired Oxygen 45 Intake/Output Intake/Output: Intake & Output 04/22/24 04/23/24 04/24/24 04/25/24 23:59 23:59 23:59 23:59 Intake Total 3966.5 5508.2 2303.7 650 Output Total 1120 1550 680 Balance 3966.5 4388.2 753.7 -30 Meds/Results Medications: Active Medications Generic Name Dose Route Start Last Admin Trade Name Freq PRN Reason Stop Dose Admin Bumetanide 2 mg 04/25/24 20:00 Bumetanide Inj 1 Mg/4 Ml Vial IV PUSH 04/25/24 20:01 ONCE ONE Dextrose 12.5 gm 04/22/24 23:06 Dextrose 50% 25 Gm/50 Ml Syringe IV PUSH PRN PRN Hypoglycemia Protocol Enoxaparin Sodium 30 mg 04/23/24 09:00 04/25/24 09:22 Enoxaparin 30 Mg/0.3 Ml Syringe SUB-Q 30 mg DAILY ROSY Administration Glucagon 1 mg 04/22/24 23:06 Glucagon For Inj 1 Mg Vial IM PRN PRN Hypoglycemia Protocol Glucose 15 gm 04/22/24 23:06 Glucose Oral Gel 15 Gm Of Glucse In 37.5 Gm Tube PO PRN PRN Hypoglycemia Protocol Hydralazine HCl 10 mg 04/25/24 08:00 Hydralazine Hcl 20 Mg/Ml Vial IV PUSH Q4H PRN Blood Pressure - High Piperacillin Sod/Tazobactam Sod 2.25 gm in 50 mls @ 100 mls/hr 04/23/24 00:00 04/25/24 06:13 Zosyn 2.25 Gm/Ns 50 Ml IVPB 100 mls/hr Q6HR ROSY Administration Fluconazole/Dextrose 100 mg in 50 mls @ 50 mls/hr 04/22/24 22:00 04/24/24 23:45 Diflucan 100 Mg/Nacl 50 Ml IVPB Infused Q24H ROSY Infusion Pantoprazole Sodium 80 mg/ 500 mls @ 50 mls/hr 04/22/24 22:00 04/25/24 04:58 Sodium Chloride IV CONT 50 mls/hr .Q10H ROSY Administration Dextrose 1,000 mls @ 100 mls/hr 04/22/24 23:06 Dextrose 5% 1,000 Ml IVPB PRN PRN Hypoglycemia Protocol Albumin Human 100 mls @ 60 mls/hr 04/25/24 08:05 04/25/24 09:22 Albutein IVPB 04/26/24 01:39 60 mls/hr Q6HR ROSY Administration Ipratropium [place] 0.5 mg 04/23/24 14:00 04/25/24 08:42 Ipratropium Br 0.02% Inh Soln 0.5 Mg/2.5 Ml Vial INHALATION 0.5 mg Q6HRT ROSY Administration Levalbuterol HCl 0.63 mg 04/23/24 14:00 04/25/24 08:42 Levalbuterol Neb 1.25 Mg/3 Ml INHALATION 0.63 mg Q6HRT ROSY Administration Midazolam HCl 2 mg 04/22/24 23:06 Midazolam Hcl (*Crx) 2 Mg/2 Ml Vial IV PUSH Q5M PRN ventilator asynchrony Morphine Sulfate 4 mg 04/22/24 22:02 04/24/24 23:06 Morphine Sulfate (*Crx) 4 Mg/Ml Inj IV PUSH 4 mg Q3H PRN Administration Pain Rated 7-10 Multi-Ingred Cream/Lotion/Oil/Oint 1 applic 04/23/24 09:00 04/25/24 09:13 Mineral Oil/White Petrolatum Ointment EACH EYE Not Given Q12HR ROSY Sodium Chloride 10 ml 04/23/24 14:00 04/25/24 06:13 Central Line Flush IV PUSH 10 ml Q8HR ROSY Administration Sodium Chloride 20 ml 04/23/24 10:16 Central Line Flush IV PUSH PRN PRN after blood draws Radiology Results: ITS Impressions Chest/Abdomen/Pelvis CTA 04/22/24 18:10 IMPRESSION: Perforated viscus with a large amount of free air and fluid, with mural thickening in the distal stomach and multiple punctate foci of extraluminal air in this area for which site of perforation is suspected. Renal Ultrasound 04/24/24 11:58 IMPRESSION: Simple cyst in the left kidney upper pole. Other appearances are unremarkable. Chest X-Ray 04/25/24 06:37 Impression: Pulmonary edema pattern with central congestive change and right basilar atelectasis. Support tubes, as above. Labs Labs: Laboratory Results - last 24 hr 04/22/24 04/24/24 04/24/24 17:42 05:53 09:25 WBC RBC Hgb Hct MCV MCH MCHC RDW Plt Count MPV Immature Gran % (Auto) Neut % (Auto) Lymph % (Auto) [place] % (Auto) Eos % (Auto) Baso % (Auto) Lymph # (Auto) [place] # (Auto) Eos # (Auto) Baso # (Auto) Abs Immat Gran (auto) Absolute Neuts (auto) Absolute Nucleated RBC Total Counted Neutrophils % (Manual) Band Neutrophils % Lymphocytes % (Manual) Monocytes % (Manual) Nucleated RBC % Abs Neuts (Manual) Abs Lymphs (Manual) Abs Monocytes (Manual) Dohle Bodies Platelet Estimate Large Platelets Spur Cells Schistocytes Puncture Site ABG pH ABG pCO2 ABG pO2 ABG PO2/FiO2 Ratio ABG HCO3 ABG O2 Saturation ABG O2 Content ABG Base Excess A-a Gradient Oxyhemoglobin Carboxyhemoglobin Methemoglobin Reduced Hemoglobin Total Hemoglobin O2 Delivery Device O2 Liters/Min Minute Volume Vent Rate Vent Mode FiO2 Tidal Volume PEEP Peak Inspir Pressure Pressure Support Sodium Potassium Chloride Carbon Dioxide Anion Gap BUN Creatinine Estim Creat Clear Calc Estimated GFR Glucose POC Capillary Glucose Calcium Phosphorus Magnesium Total Bilirubin AST ALT Alkaline Phosphatase Total Creatine Kinase Total Protein Albumin Random Cortisol > 123.00 Urine Color Dark yellow Urine Appearance Turbid H Urine pH 5.0 Ur Specific [place] 1.026 Urine Protein 2+ H Urine Glucose (UA) Negative Urine Ketones Negative Ur Blood (Man) 3+ H Urine Nitrate Negative Urine Bilirubin 2+ H Urine Urobilinogen 1.0 Ur Leukocyte Esterase Trace H Add Ur Microanalysis Reviewed Urine RBC 3-5 H Urine WBC 6-10 H Ur Squamous Epith Cells Many H Urine Bacteria None seen Urine Casts >20 Hyaline Casts Present Urine Mucus Present U Random Total Protein 43 Ur Random Sodium < 5 Urine Creatinine 129.6 Protein/Creat Ratio 2 0.33 H Crossmatch See Detail 04/24/24 04/24/24 04/25/24 11:50 18:09 04:39 WBC RBC Hgb Hct MCV MCH MCHC RDW Plt Count MPV Immature Gran % (Auto) Neut % (Auto) Lymph % (Auto) [place] % (Auto) Eos % (Auto) Baso % (Auto) Lymph # (Auto) [place] # (Auto) Eos # (Auto) Baso # (Auto) Abs Immat Gran (auto) Absolute Neuts (auto) Absolute Nucleated RBC Total Counted Neutrophils % (Manual) Band Neutrophils % Lymphocytes % (Manual) Monocytes % (Manual) Nucleated RBC % Abs Neuts (Manual) Abs Lymphs (Manual) Abs Monocytes (Manual) Dohle Bodies Platelet Estimate Large Platelets Fredy Cells Schistocytes Puncture Site Artline ABG pH 7.424 ABG pCO2 39.2 ABG pO2 128.0 H ABG PO2/FiO2 Ratio 2.84 ABG HCO3 25.1 ABG O2 Saturation 98.6 ABG O2 Content 17.3 ABG Base Excess 0.7 A-a Gradient 148.3 Oxyhemoglobin 98.3 Carboxyhemoglobin 0.2 Methemoglobin 0.1 Reduced Hemoglobin 1.4 Total Hemoglobin 12.4 O2 Delivery Device Ventilator O2 Liters/Min Not Reportable Minute Volume 7.7 Vent Rate Not Reportable Vent Mode Asv FiO2 45 Tidal Volume Not Reportable PEEP 5 Peak Inspir Pressure Not Reportable Pressure Support 18 Sodium Potassium Chloride Carbon Dioxide Anion Gap BUN Creatinine Estim Creat Clear Calc Estimated GFR Glucose POC Capillary Glucose 99 92 Calcium Phosphorus Magnesium Total Bilirubin AST ALT Alkaline Phosphatase Total Creatine Kinase Total Protein Albumin Random Cortisol Urine Color Urine Appearance Urine pH Ur Specific [place] Urine Protein Urine Glucose (UA) Urine Ketones Ur Blood (Man) Urine Nitrate Urine Bilirubin Urine Urobilinogen Ur Leukocyte Esterase Add Ur Microanalysis Urine RBC Urine WBC Ur Squamous Epith Cells Urine Bacteria Urine Casts Hyaline Casts Urine Mucus U Random Total Protein Ur Random Sodium Urine Creatinine Protein/Creat Ratio 2 Crossmatch 04/25/24 05:58 WBC 15.4 H RBC 3.28 L Hgb 9.7 L Hct 29.7 L MCV 90.5 MCH 29.6 MCHC 32.7 RDW 14.2 Plt Count 160 MPV 12.0 H Immature Gran % (Auto) Not Reportable Neut % (Auto) Not Reportable Lymph % (Auto) Not Reportable [place] % (Auto) Not Reportable Eos % (Auto) Not Reportable Baso % (Auto) Not Reportable Lymph # (Auto) Not Reportable [place] # (Auto) Not Reportable Eos # (Auto) Not Reportable Baso # (Auto) Not Reportable Abs Immat Gran (auto) Not Reportable Absolute Neuts (auto) Not Reportable Absolute Nucleated RBC Not Reportable Total Counted 100 Neutrophils % (Manual) 83 H Band Neutrophils % 9 H Lymphocytes % (Manual) 4 L Monocytes % (Manual) 4 Nucleated RBC % Not Reportable Abs Neuts (Manual) 14.16 H Abs Lymphs (Manual) 0.61 L Abs Monocytes (Manual) 0.61 Dohle Bodies Present Platelet Estimate Adequate Large Platelets Present Fredy Cells 1+ Schistocytes None seen Puncture Site ABG pH ABG pCO2 ABG pO2 ABG PO2/FiO2 Ratio ABG HCO3 ABG O2 Saturation ABG O2 Content ABG Base Excess A-a Gradient Oxyhemoglobin Carboxyhemoglobin Methemoglobin Reduced Hemoglobin Total Hemoglobin O2 Delivery Device O2 Liters/Min Minute Volume Vent Rate Vent Mode FiO2 Tidal Volume PEEP Peak Inspir Pressure Pressure Support Sodium 144 Potassium 4.0 Chloride 107 Carbon Dioxide 25 Anion Gap 12 BUN 80 H Creatinine 3.68 H Estim Creat Clear Calc 0 Estimated GFR 16 L Glucose 78 POC Capillary Glucose Calcium 9.0 Phosphorus 5.1 H Magnesium 2.2 Total Bilirubin 2.4 H AST 36 ALT 26 Alkaline Phosphatase 110 Total Creatine Kinase 355 H Total Protein 6.0 L Albumin 3.5 Random Cortisol Urine Color Urine Appearance Urine pH Ur Specific [place] Urine Protein Urine Glucose (UA) Urine Ketones Ur Blood (Man) Urine Nitrate Urine Bilirubin Urine Urobilinogen Ur Leukocyte Esterase Add Ur Microanalysis Urine RBC Urine WBC Ur Squamous Epith Cells Urine Bacteria Urine Casts Hyaline Casts Urine Mucus U Random Total Protein Ur Random Sodium Urine Creatinine Protein/Creat Ratio 2 Crossmatch
--- NOTE | 2024-04-25 11:57 | PC.NURSE ---
Awake and following commands. Production Team Member aware- SBT 09/13 RT notified
[2024-04-25] MEDS: FAT EMULSIONS IV 20% 250 ML 20.83 ML IVPB (12:04)
[2024-04-25] MEDS: AMINO ACIDS 5%/DEXTROSE 15% 2,000 ML with MULTIVITAMINS-12 INJ VIAL 1 2.5 ML, MULTIVITA... 40 ML IV CONT (12:04)
[2024-04-25] MEDS: hydrALAZINE HCL 20 MG/ML VIAL 10 MG IV PUSH (12:18)
[2024-04-25 12:20] LABS: Hematocrit 30.9 % (42.0-52.0); Hemoglobin 10.1 g/dL (14.0-18.0); Mean Corpuscular HGB Conc 32.7 g/dl (32-36); Mean Corpuscular Volume 88.8 fl (80-100); Mean Platelet Volume 11.4 fl (7.4-10.4); Platelet Count Result 150 k/mm3 (150-375); Red Blood Count 3.48 M/mm3 (4.6-6.20); Red Cell Distribution Width 14.2 % (11.5-14.5); White Blood Count 14.9 K/mm3 (4.5-10.0)
[2024-04-25 12:24] LABS: Glucose Point of Care 79 mg/dl (65-105)
[2024-04-25 13:45] LABS: Alveolar/Arterial O2 Gradient 119.4 mmHg; Base Excess ABG -2.8 mEq/l (+/-2.0); Fractional Inspired Oxygen 35 %; HCO3 ABG 20.2 mEq/l (22.0-26.0); Oxygen Content ABG 15.5 %vol (16.0-22.0); Oxygen Saturation ABG 97.7 % (95.0-100.0); Oxyhemoglobin 96.5 % THb (90.0-100.0); PCO2 ABG 29.7 mmHg (35.0-45.0); PO2 ABG 95.6 mmHg (80.0-100.0); PO2 FiO2 Ratio Arterial Blood 2.73 %; Total Hemoglobin 11.3 g/dL (12.0-18.0); pH ABG 7.451 (7.350-7.450)
[2024-04-25] MEDS: BUMETANIDE INJ 1 MG/4 ML VIAL 2 MG IV PUSH (13:49)
[2024-04-25 14:01] LABS: Arterial Blood Gas PEEP 5 cmH2O; Arterial Blood Gas Vent Mode ASV; Device VENTILATOR; Modified Allen's Test Pass; Site Drawn RIGHT RADIAL
[2024-04-25] MEDS: MORPHINE SULFATE (*CRX) 4 MG/ML INJ IV PUSH (16:53)
[2024-04-25 18:49] LABS: Glucose Point of Care 118 mg/dl (65-105)
[2024-04-25] MEDS: FLUCONAZOLE 100 MG/NACL 50 ML 100 MG/50 ML BTL 50 MG IVPB (22:09)
[2024-04-26] VITALS (24 sets, daily range): BP systolic 146–171; BP diastolic 64–84; PULSE 67–88; RESP 12–20; TEMP 36.8–37.7; O2SAT 90–98
[2024-04-26] MEDS: ALBUMIN HUMAN 25% 25 GM/100 ML 100 ML IVPB (00:30)
[2024-04-26] MEDS: PIPERACILLIN/TAZ 2.25G/NS 50ML 2.25 GM/50 ML BAG IVPB ×4 (00:45→17:49)
[2024-04-26] MEDS: IPRATROPIUM BR 0.02% INH SOLN 0.5 MG/2.5 ML VIAL INHALATION ×4 (01:59→19:43)
[2024-04-26] MEDS: LEVALBUTEROL NEB 1.25 MG/3 ML 0.63 MG INHALATION ×4 (01:59→19:43)
[2024-04-26 05:14] LABS: Basophils Absolute Auto 0.1 K/mm3 (0.0-0.1); Basophils Percent Auto 0.7 % (0.2-1.2); Eosinophils Absolute Auto 0.1 K/mm3 (0-0.3); Eosinophils Percent Auto 0.5 % (0-4.4); Hematocrit 32.9 % (42.0-52.0); Hemoglobin 10.5 g/dL (14.0-18.0); Immature Granulocyte Absolute 0.61 K/mm3 (0.00-0.031); Immature Granulocyte Percent A 5.5 % (0-0.5); Lymphocytes Absolute Auto 0.61 K/mm3 (0.9-3.2); Lymphocytes Percent Auto 5.5 % (18.3-44.2); Mean Corpuscular HGB Conc 31.9 g/dl (32-36); Mean Corpuscular Hemoglobin 29.2 pg (26-34); Mean Corpuscular Volume 91.6 fl (80-100); Mean Platelet Volume 11.9 fl (7.4-10.4); Monocytes Absolute Auto 0.8 K/mm3 (0.1-0.6); Neutrophils Absolute Auto 8.9 K/mm3 (1.3-6.7); Neutrophils Percent Auto 80.8 % (45.5-73.1); Platelet Count Result 150 k/mm3 (150-375); Red Blood Count 3.59 M/mm3 (4.6-6.20); Red Cell Distribution Width 14.4 % (11.5-14.5); White Blood Count 11.1 K/mm3 (4.5-10.0)
[2024-04-26 05:26] LABS: Alanine Aminotransferase 23 U/L (6-50); Albumin Level 3.9 g/dL (3.5-5.1); Alkaline Phosphatase 103 U/L (38-126); Anion Gap 12 mmol/L (4-12); Aspartate Amino Transferase 25 U/L (17-59); Bilirubin,Total 2.2 mg/dL (0.2-1.3); Blood Urea Nitrogen 89 mg/dL (9-20); Carbon Dioxide 27 mmol/L (22-30); Chloride 108 mmol/L (98-107); Creatine Kinase 238 U/L (55-170); Estimated CRCL calculation 21 ml/min; Estimated Glomerular Filt Rate 16; Glucose 102 mg/dL (65-110); Magnesium 2.2 mg/dL (1.6-2.3); Phosphorus 4.7 mg/dL (2.5-4.5); Potassium 3.5 mmol/L (3.4-5.0); Sodium 147 mmol/L (137-145)
[2024-04-26] MEDS: CENTRAL LINE FLUSH 10 ML IV PUSH ×3 (06:07→22:15)
[2024-04-26 07:34] LABS: Triglycerides 239 mg/dL (<150)
--- NOTE | 2024-04-26 08:09 | PM.PNNEP ---
Progress Note: A&P Assessment and Plan (1) Acute kidney injury superimposed on stage 3b chronic kidney disease: Code(s): N17.9 - Acute kidney failure, unspecified; N18.32 - Chronic kidney disease, stage 3b Status: Acute Assessment and Plan: the patient has Chronic kidney disease. His baseline creatinine is around 1.5. This is probably related to hypertension, peripheral vascular disease, and possibly chronic nonsteroidal anti-inflammatory agent use. we can evaluate this further when he recovers, possibly in the office if he needs follow-up. The patient has acute kidney injury. CT shows normal kidneys Renal sono simple cyst x 1 o/w unremarkable. Urine 'lytes are prerenal there are multiple contributing factors. diclofenac hypotension septic shock third spacing His urine output is doing well. He received a dose of bumetanide yesterday and made an extra L of urine yesterday compared to the day before. He is still making lots of urine overnight, 1525. hopefully urine output will continue to be this good so he will get the fluid from the TPN off but will check intake and output this evening and see if he is getting rid of as much as we are giving him. If not I can give him another dose of Bumex. The creatinine is marginally better The sodium level is a little high. This is most likely multifactorial. The kidneys are having a little trouble balancing the salt and water issues. I will give a little D5W today bring the sodium level back down. Repeat BMP later today (2) Perforated gastric ulcer: Onset Date: 04/2024 Qualifiers: Gastric ulcer chronicity: acute Qualified Code(s): K25.1 - Acute gastric ulcer with perforation Code(s): K25.5 - Chronic or unspecified gastric ulcer with perforation Status: Inactive Assessment and Plan: He had a perforated gastric ulcer, likely related to nonsteroidal anti-inflammatory agents. This was repaired in the OR and he is recovering from this. (3) Acute respiratory failure: Code(s): J96.00 - Acute respiratory failure, unspecified whether with hypoxia or hypercapnia Status: Acute Assessment and Plan: the patient is breathing on his own. (4) Shock circulatory: Code(s): R57.9 - Shock, unspecified Status: Acute Assessment and Plan: Blood pressure doing well (5) Anemia: Code(s): D64.9 - Anemia, unspecified Status: Acute Assessment and Plan: hemoglobin 10.5. (6) Acute hyperkalemia: Code(s): E87.5 - Hyperkalemia Status: Acute Assessment and Plan: His potassium is fine today. (7) HTN (hypertension): Code(s): I10 - Essential (primary) hypertension Status: Acute Assessment and Plan: Blood pressure meds are on hold (8) Hypercholesterolemia: Code(s): E78.00 - Pure hypercholesterolemia, unspecified Status: Acute Assessment and Plan: atorvastatin is on hold Subjective Date/time seen: 04/26/24 08:09 Interval history: patient is extubated now. He is awake and conversive bit weak he is thirsty belly still uncomfortable as it has been Exam Narrative: WDWN male resting comfortably in bed in NAD Neuro alert and interactive skin no rash or subcu nodules head ncat lungs fairly clear cor reg no rub abd BS absent, may be a tingle or two, and distended ext 1+ bilateral presacral edema. Objective Data Vital Signs Vital Signs: Vital Signs - 24 hr 04/25/24 08:43 04/25/24 08:43 04/25/24 10:00 Temperature Pulse Rate 73 70 67 Respiratory Rate 14 Blood Pressure Pulse Oximetry 100 Oxygen Delivery Mechanical Ventilation Oxygen Flow Rate Fraction of Inspired Oxygen 35 04/25/24 10:00 04/25/24 11:21 04/25/24 12:00 Temperature Pulse Rate 70 65 81 Respiratory Rate 17 Blood Pressure 167/79 H Pulse Oximetry 98 98 Oxygen Delivery Mechanical Ventilation Oxygen Flow Rate Fraction of Inspired Oxygen 35 04/25/24 12:00 04/25/24 12:00 04/25/24 14:00 Temperature Pulse Rate 85 82 73 Respiratory Rate 12 12 14 Blood Pressure 158/77 H Pulse Oximetry 96 96 Oxygen Delivery Mechanical Ventilation Oxygen Flow Rate Fraction of Inspired Oxygen 04/25/24 14:00 04/25/24 14:00 04/25/24 14:03 Temperature Pulse Rate 75 76 74 Respiratory Rate 17 13 Blood Pressure 175/85 H Pulse Oximetry 99 96 Oxygen Delivery Nasal Cannula Oxygen Flow Rate 2 Fraction of Inspired Oxygen 04/25/24 14:10 04/25/24 14:12 04/25/24 16:00 Temperature 98.3 F Pulse Rate 81 81 68 Respiratory Rate 16 18 12 Blood Pressure 150/73 H Pulse Oximetry 96 97 Oxygen Delivery Nasal Cannula Oxygen Flow Rate 2 Fraction of Inspired Oxygen 04/25/24 16:00 04/25/24 16:00 04/25/24 18:00 Temperature 98.4 F Pulse Rate 72 69 67 Respiratory Rate 16 12 Blood Pressure 163/70 H Pulse Oximetry 96 97 Oxygen Delivery Nasal Cannula Oxygen Flow Rate 2 Fraction of Inspired Oxygen 04/25/24 18:00 04/25/24 19:41 04/25/24 19:45 Temperature Pulse Rate 74 83 83 Respiratory Rate 18 Blood Pressure Pulse Oximetry 97 Oxygen Delivery Nasal Cannula Oxygen Flow Rate 2 Fraction of Inspired Oxygen 04/25/24 19:45 04/25/24 20:19 04/25/24 20:19 Temperature 98.3 F Pulse Rate 83 78 78 Respiratory Rate 18 18 18 Blood Pressure 134/76 Pulse Oximetry 95 95 Oxygen Delivery Nasal Cannula Oxygen Flow Rate 2 Fraction of Inspired Oxygen 04/25/24 20:38 04/25/24 22:00 04/25/24 22:00 Temperature 98.2 F Pulse Rate 78 88 83 Respiratory Rate 18 16 Blood Pressure 166/88 H Pulse Oximetry 95 Oxygen Delivery Oxygen Flow Rate Fraction of Inspired Oxygen 04/26/24 00:00 04/26/24 00:00 04/26/24 00:00 Temperature 98.3 F Pulse Rate 83 67 67 Respiratory Rate 16 16 Blood Pressure 149/74 H Pulse Oximetry 95 96 Oxygen Delivery Nasal Cannula Oxygen Flow Rate 2 Fraction of Inspired Oxygen 04/26/24 01:59 04/26/24 02:00 04/26/24 02:00 Temperature 98.2 F Pulse Rate 68 71 75 Respiratory Rate 16 16 Blood Pressure 157/75 H Pulse Oximetry 96 Oxygen Delivery Oxygen Flow Rate Fraction of Inspired Oxygen 04/26/24 02:12 04/26/24 03:56 04/26/24 03:56 Temperature Pulse Rate 68 75 68 Respiratory Rate 16 16 Blood Pressure Pulse Oximetry 96 Oxygen Delivery Nasal Cannula Oxygen Flow Rate 2 Fraction of Inspired Oxygen 04/26/24 04:00 04/26/24 06:00 04/26/24 06:00 Temperature 98.4 F 98.2 F Pulse Rate 72 69 69 Respiratory Rate 16 14 Blood Pressure 156/80 H 148/77 H Pulse Oximetry 95 96 Oxygen Delivery Oxygen Flow Rate Fraction of Inspired Oxygen 04/26/24 07:48 04/26/24 07:48 04/26/24 08:04 Temperature Pulse Rate 67 74 Respiratory Rate 20 20 Blood Pressure Pulse Oximetry 97 Oxygen Delivery Nasal Cannula Oxygen Flow Rate 2 Fraction of Inspired Oxygen Intake/Output Intake/Output: Intake & Output 04/23/24 04/24/24 04/25/24 04/26/24 23:59 23:59 23:59 23:59 Intake Total 5508.2 2303.7 1650 400 Output Total 1120 1550 2505 1525 Balance 4388.2 523.7 -644 -1272 Meds/Results Medications: Active Medications Generic Name Dose Route Start Last Admin Trade Name Freq PRN Reason Stop Dose Admin Dextrose 12.5 gm 04/22/24 23:06 Dextrose 50% 25 Gm/50 Ml Syringe IV PUSH PRN PRN Hypoglycemia Protocol Enoxaparin Sodium 30 mg 04/23/24 09:00 04/25/24 09:22 Enoxaparin 30 Mg/0.3 Ml Syringe SUB-Q 30 mg DAILY ROSY Administration Glucagon 1 mg 04/22/24 23:06 Glucagon For Inj 1 Mg Vial IM PRN PRN Hypoglycemia Protocol Glucose 15 gm 04/22/24 23:06 Glucose Oral Gel 15 Gm Of Glucse In 37.5 Gm Tube PO PRN PRN Hypoglycemia Protocol Hydralazine HCl 10 mg 04/25/24 08:00 04/25/24 12:18 Hydralazine Hcl 20 Mg/Ml Vial IV PUSH 10 mg Q4H PRN Administration Blood Pressure - High Piperacillin Sod/Tazobactam Sod 2.25 gm in 50 mls @ 100 mls/hr 04/23/24 00:00 04/26/24 06:07 Zosyn 2.25 Gm/Ns 50 Ml IVPB 100 mls/hr Q6HR ROSY Administration Fluconazole/Dextrose 100 mg in 50 mls @ 50 mls/hr 04/22/24 22:00 04/25/24 23:10 Diflucan 100 Mg/Nacl 50 Ml IVPB Infused Q24H ROSY Infusion Pantoprazole Sodium 80 mg/ 500 mls @ 50 mls/hr 04/22/24 22:00 04/26/24 05:10 Sodium Chloride IV CONT Not Given .Q10H ROSY Dextrose 1,000 mls @ 100 mls/hr 04/22/24 23:06 Dextrose 5% 1,000 Ml IVPB PRN PRN Hypoglycemia Protocol Dextrose 1,000 mls @ 50 mls/hr 04/25/24 10:46 Dextrose 10% IV CONT .Q20H PRN if PN is interrupted Multivitamins 2.5 ml/ 2,005 mls @ 40 mls/hr 04/25/24 12:00 04/25/24 12:04 Multivitamins 2.5 ml/ Amino IV CONT 40 mls/hr Acids/Dextrose .Q24H ROSY Administration Protocol Fat Emulsion Intravenous 250 mls @ 20.833 mls/hr 04/25/24 12:00 04/26/24 00:05 Lipids 20% IVPB Infused Q24H ROSY Infusion Ipratropium [place] 0.5 mg 04/23/24 14:00 04/26/24 07:49 Ipratropium Br 0.02% Inh Soln 0.5 Mg/2.5 Ml Vial INHALATION 0.5 mg Q6HRT ROSY Administration Levalbuterol HCl 0.63 mg 04/23/24 14:00 04/26/24 07:48 Levalbuterol Neb 1.25 Mg/3 Ml INHALATION 0.63 mg Q6HRT ROSY Administration Morphine Sulfate 4 mg 04/22/24 22:02 04/25/24 16:53 Morphine Sulfate (*Crx) 4 Mg/Ml Inj IV PUSH 4 mg Q3H PRN Administration Pain Rated 7-10 Multi-Ingred Cream/Lotion/Oil/Oint 1 applic 04/23/24 09:00 04/25/24 20:32 Mineral Oil/White Petrolatum Ointment EACH EYE Not Given Q12HR ROSY Sodium Chloride 10 ml 04/23/24 14:00 04/26/24 06:07 Central Line Flush IV PUSH 10 ml Q8HR ROSY Administration Sodium Chloride 20 ml 04/23/24 10:16 Central Line Flush IV PUSH PRN PRN after blood draws Radiology Results: ITS Impressions Chest/Abdomen/Pelvis CTA 04/22/24 18:10 IMPRESSION: Perforated viscus with a large amount of free air and fluid, with mural thickening in the distal stomach and multiple punctate foci of extraluminal air in this area for which site of perforation is suspected. Renal Ultrasound 04/24/24 11:58 IMPRESSION: Simple cyst in the left kidney upper pole. Other appearances are unremarkable. Chest X-Ray 04/26/24 06:18 Impression: Mild pulmonary edema pattern and bibasilar atelectasis with small bilateral pleural effusions, left greater than right. Right IJ line. Labs Labs: Laboratory Results - last 24 hr 04/22/24 04/25/24 04/25/24 17:42 12:06 12:22 WBC 14.9 H RBC 3.48 L Hgb 10.1 L Hct 30.9 L MCV 88.8 MCH 29.0 MCHC 32.7 RDW 14.2 Plt Count 150 MPV 11.4 H Immature Gran % (Auto) Neut % (Auto) Lymph % (Auto) Stephenson % (Auto) Eos % (Auto) Baso % (Auto) Lymph # (Auto) Stephenson # (Auto) Eos # (Auto) Baso # (Auto) Abs Immat Gran (auto) Absolute Neuts (auto) Absolute Nucleated RBC Nucleated RBC % Puncture Site ABG pH ABG pCO2 ABG pO2 ABG PO2/FiO2 Ratio ABG HCO3 ABG O2 Saturation ABG O2 Content ABG Base Excess A-a Gradient Oxyhemoglobin Total Hemoglobin O2 Delivery Device O2 Liters/Min Minute Volume Vent Rate Vent Mode FiO2 Tidal Volume PEEP Peak Inspir Pressure Pressure Support Sodium Potassium Chloride Carbon Dioxide Anion Gap BUN Creatinine Estim Creat Clear Calc Estimated GFR Glucose POC Capillary Glucose 79 Calcium Phosphorus Magnesium Total Bilirubin AST ALT Alkaline Phosphatase Total Creatine Kinase Total Protein Albumin Triglycerides Blood Type A Positive Antibody Screen Negative Crossmatch See Detail 04/25/24 04/25/24 04/26/24 13:38 18:47 05:01 WBC 11.1 H RBC 3.59 L Hgb 10.5 L Hct 32.9 L MCV 91.6 MCH 29.2 MCHC 31.9 L RDW 14.4 Plt Count 150 MPV 11.9 H Immature Gran % (Auto) 5.5 H Neut % (Auto) 80.8 H Lymph % (Auto) 5.5 L Stephenson % (Auto) 7.0 Eos % (Auto) 0.5 Baso % (Auto) 0.7 Lymph # (Auto) 0.61 L Stephenson # (Auto) 0.8 H Eos # (Auto) 0.1 Baso # (Auto) 0.1 Abs Immat Gran (auto) 0.61 H Absolute Neuts (auto) 8.9 H Absolute Nucleated RBC 0.000 Nucleated RBC % 0.0 Puncture Site Right radial ABG pH 7.451 H ABG pCO2 29.7 L ABG pO2 95.6 ABG PO2/FiO2 Ratio 2.73 ABG HCO3 20.2 L ABG O2 Saturation 97.7 ABG O2 Content 15.5 L ABG Base Excess -2.8 A-a Gradient 119.4 Oxyhemoglobin 96.5 Total Hemoglobin 11.3 L O2 Delivery Device Ventilator O2 Liters/Min Not Reportable Minute Volume 100.0 Vent Rate Not Reportable Vent Mode Asv FiO2 35 Tidal Volume Not Reportable PEEP 5 Peak Inspir Pressure Not Reportable Pressure Support Not Reportable Sodium 147 H Potassium 3.5 Chloride 108 H Carbon Dioxide 27 Anion Gap 12 BUN 89 H Creatinine 3.63 H Estim Creat Clear Calc 21 Estimated GFR 16 L Glucose 102 POC Capillary Glucose 118 H Calcium 9.0 Phosphorus 4.7 H Magnesium 2.2 Total Bilirubin 2.2 H AST 25 ALT 23 Alkaline Phosphatase 103 Total Creatine Kinase 238 H Total Protein 6.0 L Albumin 3.9 Triglycerides 239 H Blood Type Antibody Screen Crossmatch
[2024-04-26] MEDS: DEXTROSE 5% 1,000 ML 1,000 ML 100 ML IV CONT (08:28)
[2024-04-26] MEDS: ENOXAPARIN 30 MG/0.3 ML SYRINGE SUB-Q (08:29)
[2024-04-26] MEDS: PANTOPRAZOLE SODIUM IV 80 MG in SODIUM CHLORIDE 0.9% IV 500 ML 50 MG IV CONT (08:29)
--- NOTE | 2024-04-26 08:50 | P.PNINT_ITS ---
Progress Note: A&P Assessment and Plan (1) Acute respiratory failure: Code(s): J96.00 - Acute respiratory failure, unspecified whether with hypoxia or hypercapnia Status: Acute Assessment and Plan: 04/22: intubated post surgery/anesthesia -04/25: Extubated -currently on 2 L nasal cannula with adequate O2 sats -PT/OT has been ordered, patient up to chair -continue incentive spirometry and EzPAP (2) Septic shock: Code(s): A41.9 - Sepsis, unspecified organism; R65.21 - Severe sepsis with septic shock Status: Acute Assessment and Plan: 04/22: Patient presented with abdominal pain, CT abdomen and pelvis revealed perforated gastric ulcer, free air in the abdomen. status post ex lap with open gastrostomy tube placement, repair of the large gastric ulcer with Clarence patch, ELSA drain -patient was hypotensive when he arrived to the ER, with systolic blood pressures in the 60s, was given 2.5 L IV fluids, started on the Levophed. Patient then went to the OR where he had the procedure, remained on Levophed, central line was inserted in the OR and patient was transferred to the ICU -upon arrival to the ICU patient required addition of vasopressin along with Levophed -04/23.: Additional 2 L IV fluids were given as patient's blood pressures were low in the 60s and 70s systolic, -OFF ALL PRESSORS 04/24 -OFF stress dose steroids -patient currently on Zosyn and fluconazole per surgery -04/23: Blood cultures negative x2 so far -status post albumin (3) Acute kidney injury superimposed on stage 3b chronic kidney disease: Code(s): N17.9 - Acute kidney failure, unspecified; N18.32 - Chronic kidney disease, stage 3b Status: Acute Assessment and Plan: Patient presented with acute on chronic kidney disease -creatinine on admission was 4.40 (baseline creatinine is 1.2-1.4) -patient was given 2.5 L of IV fluids in the ER, -on maintenance IV fluids -04/23 give additional 2 L IV fluid bolus as patient was hypotensive and probably is third-spacing -status post intravascular volume expansion -continue to monitor urine output, renal function electrolytes CK levels slightly elevated -urine eosinophils negative -urine lytes showing prerenal picture, patient was adequately fluid-resuscitated (4) Perforated gastric ulcer: Onset Date: 04/2024 Qualifiers: Gastric ulcer chronicity: acute Qualified Code(s): K25.1 - Acute gastric ulcer with perforation Code(s): K25.5 - Chronic or unspecified gastric ulcer with perforation Status: Inactive Assessment and Plan: 04/22: Patient presented with abdominal pain, CT abdomen and pelvis revealed perforated gastric ulcer, free air in the abdomen. status post ex lap with open gastrostomy tube placement, repair of the large gastric ulcer with Clarence patch, ELSA drain -surgery following -continue antibiotics as above -on Protonix infusion, will discuss with surgery (5) Acute hyperkalemia: Code(s): E87.5 - Hyperkalemia Status: Acute Assessment and Plan: RESOLVED -continue to monitor Plan DVT prophylaxis: Lovenox Stress ulcer prophylaxis: Protonix infusion Nutrition: TPN started on 04/25 per surgery Code Status: Full code, as discussed code status with 2 daughters Critical Care Time Spent: 32 minutes Discussed with 2 daughters in rounds and updated them with patient's condition and plan of care. Due to a high probability of clinically significant, life threatening deterioration, the patient required my highest level of preparedness to intervene emergently and I personally spent this critical care time directly and personally managing the patient. This critical care time included obtaining a history; examining the patient; pulse oximetry; ordering and review of studies; arranging urgent treatment with development of a management plan; evaluation of patient's response to treatment; frequent reassessment; and discussions with other providers. It was exclusive of separately billable procedures and treating other patients and teaching time. Please see Assessment and Plan section and the rest of the note for further information on patient assessment and treatment This dictation may have been done utilizing a voice recognition system. Attempts have been made to correct errors. However, there may be uncorrected grammatical, spelling, and recognitions errors present. Subjective Date/time seen: 04/26/24 08:50 Interval history: Reason for consult: Acute respiratory failure, abdominal pain, perforated gastric ulcer, 04/22: Intubated 04/22: status post ex lap with open gastrostomy tube placement, repair of the large gastric ulcer with Clarence patch, ELSA drain 04/25: Extubated 04/26/2024: Patient seen and examined the ICU, remains extubated, on 2 L nasal cannula with adequate O2 sats. Urine output has been adequate in response to diuretics, creatinine almost stable at 3.63. Patient is awake, alert, oriented to his date of and he knows the president's name. Did not know where he was or what year is it. Patient states he is tired and weak. Denies any chest pain, shortness of breath. Does not complain of abdominal pain, nausea vomiting at this time Review of Systems Review of Systems: All systems reviewed & are unremarkable except as noted in HPI and below Exam Narrative: General: Patient is awake but closes eyes, in no acute distress HEENT:? Pupils equal and reactive, sclerae is clear Neck:? Supple Respiratory:? Coarse breath sounds bilaterally, decreased at bases, adequate air entry, no wheezing Cardiac:? S1-S2 is normal, rate controlled Abdomen:? Soft, nondistended, tender to palpation, very hypoactive bowel sound Extremities:? Bilateral feet are warm, pulses are palpable, discoloration of the feet has resolved Neuro:? Patient is awake,, opens his eyes, follows simple commands in all e xtremities, able to answer questions. Oriented to his date of , he knew the name of the president. He did not know where he was or what year it was Skin:? Dry scaly skin - bilateral lower extremity Psych:? Unable to assess at this time Objective Data Vital Signs Vital Signs: Vital Signs - 24 hr 04/25/24 10:00 04/25/24 10:00 04/25/24 11:21 Temperature Pulse Rate 67 70 65 Respiratory Rate 17 Blood Pressure 167/79 H Pulse Oximetry 98 98 Oxygen Delivery Mechanical Ventilation Oxygen Flow Rate Fraction of Inspired Oxygen 35 04/25/24 12:00 04/25/24 12:00 04/25/24 12:00 Temperature Pulse Rate 81 85 82 Respiratory Rate 12 12 Blood Pressure 158/77 H Pulse Oximetry 96 96 Oxygen Delivery Mechanical Ventilation Oxygen Flow Rate Fraction of Inspired Oxygen 04/25/24 14:00 04/25/24 14:00 04/25/24 14:00 Temperature Pulse Rate 73 75 76 Respiratory Rate 14 17 Blood Pressure 175/85 H Pulse Oximetry 99 Oxygen Delivery Oxygen Flow Rate Fraction of Inspired Oxygen 04/25/24 14:03 04/25/24 14:10 04/25/24 14:12 Temperature Pulse Rate 74 81 81 Respiratory Rate 13 16 18 Blood Pressure Pulse Oximetry 96 96 Oxygen Delivery Nasal Cannula Nasal Cannula Oxygen Flow Rate 2 2 Fraction of Inspired Oxygen 04/25/24 16:00 04/25/24 16:00 04/25/24 16:00 Temperature 98.3 F Pulse Rate 68 72 69 Respiratory Rate 12 16 Blood Pressure 150/73 H Pulse Oximetry 97 96 Oxygen Delivery Nasal Cannula Oxygen Flow Rate 2 Fraction of Inspired Oxygen 04/25/24 18:00 04/25/24 18:00 04/25/24 19:41 Temperature 98.4 F Pulse Rate 67 74 83 Respiratory Rate 12 18 Blood Pressure 163/70 H Pulse Oximetry 97 97 Oxygen Delivery Nasal Cannula Oxygen Flow Rate 2 Fraction of Inspired Oxygen 04/25/24 19:45 04/25/24 19:45 04/25/24 20:19 Temperature 98.3 F Pulse Rate 83 83 78 Respiratory Rate 18 18 Blood Pressure 134/76 Pulse Oximetry 95 95 Oxygen Delivery Nasal Cannula Oxygen Flow Rate 2 Fraction of Inspired Oxygen 04/25/24 20:19 04/25/24 20:38 04/25/24 22:00 Temperature Pulse Rate 78 78 88 Respiratory Rate 18 18 Blood Pressure Pulse Oximetry Oxygen Delivery Oxygen Flow Rate Fraction of Inspired Oxygen 04/25/24 22:00 04/26/24 00:00 04/26/24 00:00 Temperature 98.2 F Pulse Rate 83 83 67 Respiratory Rate 16 16 Blood Pressure 166/88 H Pulse Oximetry 95 95 Oxygen Delivery Nasal Cannula Oxygen Flow Rate 2 Fraction of Inspired Oxygen 04/26/24 00:00 04/26/24 01:59 04/26/24 02:00 Temperature 98.3 F Pulse Rate 67 68 71 Respiratory Rate 16 16 Blood Pressure 149/74 H Pulse Oximetry 96 Oxygen Delivery Oxygen Flow Rate Fraction of Inspired Oxygen 04/26/24 02:00 04/26/24 02:12 04/26/24 03:56 Temperature 98.2 F Pulse Rate 75 68 75 Respiratory Rate 16 16 16 Blood Pressure 157/75 H Pulse Oximetry 96 96 Oxygen Delivery Nasal Cannula Oxygen Flow Rate 2 Fraction of Inspired Oxygen 04/26/24 03:56 04/26/24 04:00 04/26/24 06:00 Temperature 98.4 F Pulse Rate 68 72 69 Respiratory Rate 16 Blood Pressure 156/80 H Pulse Oximetry 95 Oxygen Delivery Oxygen Flow Rate Fraction of Inspired Oxygen 04/26/24 06:00 04/26/24 07:48 04/26/24 07:48 Temperature 98.2 F Pulse Rate 69 67 Respiratory Rate 14 20 Blood Pressure 148/77 H Pulse Oximetry 96 97 Oxygen Delivery Nasal Cannula Oxygen Flow Rate 2 Fraction of Inspired Oxygen 04/26/24 08:04 Temperature Pulse Rate 74 Respiratory Rate 20 Blood Pressure Pulse Oximetry Oxygen Delivery Oxygen Flow Rate Fraction of Inspired Oxygen Intake/Output Intake/Output: Intake & Output 04/23/24 04/24/24 04/25/24 04/26/24 23:59 23:59 23:59 23:59 Intake Total 5508.2 2303.7 1650 900 Output Total 1120 1550 2505 1525 Balance 4388.2 693.7 -857 -625 Meds/Results Medications: Active Medications Generic Name Dose Route Start Last Admin Trade Name Freq PRN Reason Stop Dose Admin Dextrose 12.5 gm 04/22/24 23:06 Dextrose 50% 25 Gm/50 Ml Syringe IV PUSH PRN PRN Hypoglycemia Protocol Enoxaparin Sodium 30 mg 04/23/24 09:00 04/26/24 08:29 Enoxaparin 30 Mg/0.3 Ml Syringe SUB-Q 30 mg DAILY ROSY Administration Glucagon 1 mg 04/22/24 23:06 Glucagon For Inj 1 Mg Vial IM PRN PRN Hypoglycemia Protocol Glucose 15 gm 04/22/24 23:06 Glucose Oral Gel 15 Gm Of Glucse In 37.5 Gm Tube PO PRN PRN Hypoglycemia Protocol Hydralazine HCl 10 mg 04/25/24 08:00 04/25/24 12:18 Hydralazine Hcl 20 Mg/Ml Vial IV PUSH 10 mg Q4H PRN Administration Blood Pressure - High Piperacillin Sod/Tazobactam Sod 2.25 gm in 50 mls @ 100 mls/hr 04/23/24 00:00 04/26/24 06:07 Zosyn 2.25 Gm/Ns 50 Ml IVPB 100 mls/hr Q6HR ROSY Administration Fluconazole/Dextrose 100 mg in 50 mls @ 50 mls/hr 04/22/24 22:00 04/25/24 23:10 Diflucan 100 Mg/Nacl 50 Ml IVPB Infused Q24H ROSY Infusion Pantoprazole Sodium 80 mg/ 500 mls @ 50 mls/hr 04/22/24 22:00 04/26/24 08:29 Sodium Chloride IV CONT 50 mls/hr .Q10H ROSY Administration Dextrose 1,000 mls @ 100 mls/hr 04/22/24 23:06 Dextrose 5% 1,000 Ml IVPB PRN PRN Hypoglycemia Protocol Dextrose 1,000 mls @ 50 mls/hr 04/25/24 10:46 Dextrose 10% IV CONT .Q20H PRN if PN is interrupted Multivitamins 2.5 ml/ 2,005 mls @ 40 mls/hr 04/25/24 12:00 04/25/24 12:04 Multivitamins 2.5 ml/ Amino IV CONT 40 mls/hr Acids/Dextrose .Q24H ROSY Administration Protocol Fat Emulsion Intravenous 250 mls @ 20.833 mls/hr 04/25/24 12:00 04/26/24 00:05 Lipids 20% IVPB Infused Q24H ROSY Infusion Dextrose 1,000 mls @ 100 mls/hr 04/26/24 08:15 04/26/24 08:28 Dextrose 5% 1,000 Ml IV CONT 04/26/24 14:14 100 mls/hr .Q10H ROSY Administration Ipratropium [place] 0.5 mg 04/23/24 14:00 04/26/24 07:49 Ipratropium Br 0.02% Inh Soln 0.5 Mg/2.5 Ml Vial INHALATION 0.5 mg Q6HRT ROSY Administration Levalbuterol HCl 0.63 mg 04/23/24 14:00 04/26/24 07:48 Levalbuterol Neb 1.25 Mg/3 Ml INHALATION 0.63 mg Q6HRT ROSY Administration Morphine Sulfate 4 mg 04/22/24 22:02 04/25/24 16:53 Morphine Sulfate (*Crx) 4 Mg/Ml Inj IV PUSH 4 mg Q3H PRN Administration Pain Rated 7-10 Sodium Chloride 10 ml 04/23/24 14:00 04/26/24 06:07 Central Line Flush IV PUSH 10 ml Q8HR ROSY Administration Sodium Chloride 20 ml 04/23/24 10:16 Central Line Flush IV PUSH PRN PRN after blood draws Radiology Results: ITS Impressions Chest/Abdomen/Pelvis CTA 04/22/24 18:10 IMPRESSION: Perforated viscus with a large amount of free air and fluid, with mural thickening in the distal stomach and multiple punctate foci of extraluminal air in this area for which site of perforation is suspected. Renal Ultrasound 04/24/24 11:58 IMPRESSION: Simple cyst in the left kidney upper pole. Other appearances are unremarkable. Chest X-Ray 04/26/24 06:18 Impression: Mild pulmonary edema pattern and bibasilar atelectasis with small bilateral pleural effusions, left greater than right. Right IJ line. Labs Labs: Laboratory Results - last 24 hr 04/22/24 04/25/24 04/25/24 17:42 12:06 12:22 WBC 14.9 H RBC 3.48 L Hgb 10.1 L Hct 30.9 L MCV 88.8 MCH 29.0 MCHC 32.7 RDW 14.2 Plt Count 150 MPV 11.4 H Immature Gran % (Auto) Neut % (Auto) Lymph % (Auto) [place] % (Auto) Eos % (Auto) Baso % (Auto) Lymph # (Auto) [place] # (Auto) Eos # (Auto) Baso # (Auto) Abs Immat Gran (auto) Absolute Neuts (auto) Absolute Nucleated RBC Nucleated RBC % Puncture Site ABG pH ABG pCO2 ABG pO2 ABG PO2/FiO2 Ratio ABG HCO3 ABG O2 Saturation ABG O2 Content ABG Base Excess A-a Gradient Oxyhemoglobin Total Hemoglobin O2 Delivery Device O2 Liters/Min Minute Volume Vent Rate Vent Mode FiO2 Tidal Volume PEEP Peak Inspir Pressure Pressure Support Sodium Potassium Chloride Carbon Dioxide Anion Gap BUN Creatinine Estim Creat Clear Calc Estimated GFR Glucose POC Capillary Glucose 79 Calcium Phosphorus Magnesium Total Bilirubin AST ALT Alkaline Phosphatase Total Creatine Kinase Total Protein Albumin Triglycerides Blood Type A Positive Antibody Screen Negative Crossmatch See Detail 04/25/24 04/25/24 04/26/24 13:38 18:47 05:01 WBC 11.1 H RBC 3.59 L Hgb 10.5 L Hct 32.9 L MCV 91.6 MCH 29.2 MCHC 31.9 L RDW 14.4 Plt Count 150 MPV 11.9 H Immature Gran % (Auto) 5.5 H Neut % (Auto) 80.8 H Lymph % (Auto) 5.5 L [place] % (Auto) 7.0 Eos % (Auto) 0.5 Baso % (Auto) 0.7 Lymph # (Auto) 0.61 L [place] # (Auto) 0.8 H Eos # (Auto) 0.1 Baso # (Auto) 0.1 Abs Immat Gran (auto) 0.61 H Absolute Neuts (auto) 8.9 H Absolute Nucleated RBC 0.000 Nucleated RBC % 0.0 Puncture Site Right radial ABG pH 7.451 H ABG pCO2 29.7 L ABG pO2 95.6 ABG PO2/FiO2 Ratio 2.73 ABG HCO3 20.2 L ABG O2 Saturation 97.7 ABG O2 Content 15.5 L ABG Base Excess -2.8 A-a Gradient 119.4 Oxyhemoglobin 96.5 Total Hemoglobin 11.3 L O2 Delivery Device Ventilator O2 Liters/Min Not Reportable Minute Volume 100.0 Vent Rate Not Reportable Vent Mode Asv FiO2 35 Tidal Volume Not Reportable PEEP 5 Peak Inspir Pressure Not Reportable Pressure Support Not Reportable Sodium 147 H Potassium 3.5 Chloride 108 H Carbon Dioxide 27 Anion Gap 12 BUN 89 H Creatinine 3.63 H Estim Creat Clear Calc 21 Estimated GFR 16 L Glucose 102 POC Capillary Glucose 118 H Calcium 9.0 Phosphorus 4.7 H Magnesium 2.2 Total Bilirubin 2.2 H AST 25 ALT 23 Alkaline Phosphatase 103 Total Creatine Kinase 238 H Total Protein 6.0 L Albumin 3.9 Triglycerides 239 H Blood Type Antibody Screen Crossmatch Quality VTE Prophylaxis VTE prophylaxis: pharmacologic ordered
--- NOTE | 2024-04-26 11:41 | PCNFU ---
Nutrition Follow-Up Complete: Inadequate oral intake related to mechanical ventilation, altered GI function as evidenced by need for full TPN Goal: Tolerate TPN at goal rate Oral intake as medically able Patient is progressing towards goal. We will continue current goal. Pt current nutrition is TPN at 40 ml/hr. Nutrition recommendation: 50 ml/hr. Last recorded weight is 119.2 kg, down from 123 kg. Bowel Motility: last reported BM 04/20 Labs Reviewed: PO4 4.7, Na 147, BUN 89, Cr 3.63 Meds Noted:Protonix, Clinimix 5/15 at 40 ml/hr with 250 ml of 20% lipids, Zosyn, Dextrose 5% Skin: WNL Additional Notes: Patient current with TPN at 40 ml/hr and Lipids. Recommend advancing TPN to 50ml/hr today, providing 1352 kcal/60 gm protein. Discussions with JOSH Borja today regarding TPN rates. Agree with diet orders. Monitoring intakes, weights, labs, meds, plan of care Following in ICU rounds, reassess Thursday and Fridays
[2024-04-26] MEDS: FAT EMULSIONS IV 20% 250 ML 20.83 ML IVPB (11:59)
[2024-04-26] MEDS: AMINO ACIDS 5%/DEXTROSE 15% 2,000 ML with MULTIVITAMINS-12 INJ VIAL 1 2.5 ML, MULTIVITA... 40 ML IV CONT (11:59)
[2024-04-26 12:13] LABS: Glucose Point of Care 120 mg/dl (65-105)
[2024-04-26] MEDS: hydrALAZINE HCL 20 MG/ML VIAL 10 MG IV PUSH (14:07)
--- NOTE | 2024-04-26 14:37 | PM.PNGS ---
Progress Note: A&P Assessment and Plan (1) Perforated gastric ulcer: Onset Date: 04/2024 Qualifiers: Gastric ulcer chronicity: acute Qualified Code(s): K25.1 - Acute gastric ulcer with perforation Code(s): K25.5 - Chronic or unspecified gastric ulcer with perforation Status: Inactive Assessment and Plan: Postop day 4, status post laparotomy with repair of large perforated gastric ulcer with omental Clarence patch. Patient had 3L of gastric contents in the abdomen and severe peritonitis in the upper abdomen. ELSA drains x [address] with serous output, continue to monitor for now. Gastrostomy tube in place decompressing the stomach since we were not able to get a nasogastric tube in place. Continue G-tube to gravity. Will increase TPN to 50 mL/her per dietitian recommendations. Will not plan on feeding him for at least a week while the repair is healing. Will switch the Protonix infusion to Q12H IV push Protonix 40 mg. Continue IV Zosyn and Fluconazole. WBC count trending down. Okay to downgrade out of ICU to IMU from a surgical standpoint. Continue supportive care. (2) Acute kidney injury superimposed on stage 3b chronic kidney disease: Code(s): N17.9 - Acute kidney failure, unspecified; N18.32 - Chronic kidney disease, stage 3b Status: Acute Assessment and Plan: Creatinine slowly coming down over the past few days and is at 3.63 today. Responded well to diuresis yesterday. Nephrology following. (3) Septic shock: Code(s): A41.9 - Sepsis, unspecified organism; R65.21 - Severe sepsis with septic shock Status: Acute Assessment and Plan: Resolved. No longer on vasopressors. Okay to downgrade out of ICU. Continue broad-spectrum IV antibiotics as ordered. (4) Acute respiratory failure: Code(s): J96.00 - Acute respiratory failure, unspecified whether with hypoxia or hypercapnia Status: Acute Assessment and Plan: Extubated yesterday and doing well today. Plan to move out of ICU today. Plan I have discussed the patient's case and plan of care with Dr. Moreno. Subjective Subjective Date/Time Seen: 04/26/24 14:37 Post Op day: 4 (Exploratory laparotomy with repair of antral gastric ulcer with omental Clarence patch, Placement of open gastrostomy tube) Interval history: Patient extubated yesterday and now on 2 liters O2 in the ICU. He has had some intermittent confusion, which he is aware of, although he answers orientation questions appropriately for me this morning. He is alert and answering all questions well. He denies any abdominal pain. He has not noticed passing any flatus and still has not had a BM since surgery. No nausea or bloating. G-tube to gravity with 150 cc out overnight. Good u/o overnight. ELSA drains x [address] with 45 cc out overnight from one and 30 cc from the other. WBC trending down. He is afebrile. He was diuresed yesterday with Bumex. Creatinine down slightly to 3.6 and BUN still high at 89. Exam Const: General: comfortable and no acute distress Orientation/consciousness: patient oriented x3 Resp: Effort & Inspection: normal respiratory effort Auscultation: clear to auscultation bilaterally Cardio: Rate: regular rate Rhythm: regular rhythm GI: Inspection: incision (dry and tono intact, no erythema) and other (abdomen mildly distende) GI Palp: Yes Soft to palpation, Yes Tenderness to palpation present (GI), No Guarding due to palpation present (GI) and No Rebound tenderness present Auscultation: absent bowel sounds Other: G tube to gravity with minimal amount of gastric bilious appearing output in odom bag. Skin around the gastrostomy site is clean and dry. ELSA drain x 2 with serous drainage Psych: Mental Status: mental status grossly normal Objective Data Vital Signs Vital Signs: Vital Signs - 24 hr 04/25/24 16:00 04/25/24 16:00 04/25/24 16:00 Temperature 98.3 F Pulse Rate 68 72 69 Respiratory Rate 12 16 Blood Pressure 150/73 H Pulse Oximetry 97 96 Oxygen Delivery Nasal Cannula Oxygen Flow Rate 2 04/25/24 18:00 04/25/24 18:00 04/25/24 19:41 Temperature 98.4 F Pulse Rate 67 74 83 Respiratory Rate 12 18 Blood Pressure 163/70 H Pulse Oximetry 97 97 Oxygen Delivery Nasal Cannula Oxygen Flow Rate 2 04/25/24 19:45 04/25/24 19:45 04/25/24 20:19 Temperature 98.3 F Pulse Rate 83 83 78 Respiratory Rate 18 18 Blood Pressure 134/76 Pulse Oximetry 95 95 Oxygen Delivery Nasal Cannula Oxygen Flow Rate 2 04/25/24 20:19 04/25/24 20:38 04/25/24 22:00 Temperature Pulse Rate 78 78 88 Respiratory Rate 18 18 Blood Pressure Pulse Oximetry Oxygen Delivery Oxygen Flow Rate 04/25/24 22:00 04/26/24 00:00 04/26/24 00:00 Temperature 98.2 F Pulse Rate 83 83 67 Respiratory Rate 16 16 Blood Pressure 166/88 H Pulse Oximetry 95 95 Oxygen Delivery Nasal Cannula Oxygen Flow Rate 2 04/26/24 00:00 04/26/24 01:59 04/26/24 02:00 Temperature 98.3 F Pulse Rate 67 68 71 Respiratory Rate 16 16 Blood Pressure 149/74 H Pulse Oximetry 96 Oxygen Delivery Oxygen Flow Rate 04/26/24 02:00 04/26/24 02:12 04/26/24 03:56 Temperature 98.2 F Pulse Rate 75 68 75 Respiratory Rate 16 16 16 Blood Pressure 157/75 H Pulse Oximetry 96 96 Oxygen Delivery Nasal Cannula Oxygen Flow Rate 2 04/26/24 03:56 04/26/24 04:00 04/26/24 06:00 Temperature 98.4 F Pulse Rate 68 72 69 Respiratory Rate 16 Blood Pressure 156/80 H Pulse Oximetry 95 Oxygen Delivery Oxygen Flow Rate 04/26/24 06:00 04/26/24 07:48 04/26/24 07:48 Temperature 98.2 F Pulse Rate 69 67 Respiratory Rate 14 20 Blood Pressure 148/77 H Pulse Oximetry 96 97 Oxygen Delivery Nasal Cannula Oxygen Flow Rate 2 04/26/24 08:00 04/26/24 08:00 04/26/24 08:00 Temperature 98.2 F Pulse Rate 70 72 Respiratory Rate 12 Blood Pressure 147/70 H Pulse Oximetry 94 94 Oxygen Delivery Nasal Cannula Oxygen Flow Rate 2 04/26/24 08:04 04/26/24 10:00 04/26/24 10:00 Temperature 98.2 F Pulse Rate 74 74 74 Respiratory Rate 20 12 Blood Pressure 164/68 H Pulse Oximetry 94 Oxygen Delivery Oxygen Flow Rate 04/26/24 12:00 04/26/24 12:00 04/26/24 12:00 Temperature 98.9 F Pulse Rate 75 73 Respiratory Rate 12 Blood Pressure 157/73 H Pulse Oximetry 95 95 Oxygen Delivery Nasal Cannula Oxygen Flow Rate 2 04/26/24 14:00 04/26/24 14:00 Temperature 98.9 F Pulse Rate 73 72 Respiratory Rate 16 Blood Pressure 171/72 H Pulse Oximetry 95 Oxygen Delivery Oxygen Flow Rate Intake/Output Intake/Output: Intake & Output 04/23/24 04/24/24 04/25/24 04/26/24 23:59 23:59 23:59 23:59 Intake Total 5508.2 2303.7 1650 2556.7 Output Total 1120 1550 2505 2950 Balance 4388.2 753.7 -855 -393.3 Meds/Results Medications: Active Medications Generic Name Dose Route Start Last Admin Trade Name Freq PRN Reason Stop Dose Admin Dextrose 12.5 gm 04/22/24 23:06 Dextrose 50% 25 Gm/50 Ml Syringe IV PUSH PRN PRN Hypoglycemia Protocol Enoxaparin Sodium 30 mg 04/23/24 09:00 04/26/24 08:29 Enoxaparin 30 Mg/0.3 Ml Syringe SUB-Q 30 mg DAILY ROSY Administration Glucagon 1 mg 04/22/24 23:06 Glucagon For Inj 1 Mg Vial IM PRN PRN Hypoglycemia Protocol Glucose 15 gm 04/22/24 23:06 Glucose Oral Gel 15 Gm Of Glucse In 37.5 Gm Tube PO PRN PRN Hypoglycemia Protocol Hydralazine HCl 10 mg 04/25/24 08:00 04/26/24 14:07 Hydralazine Hcl 20 Mg/Ml Vial IV PUSH 10 mg Q4H PRN Administration Blood Pressure - High Piperacillin Sod/Tazobactam Sod 2.25 gm in 50 mls @ 100 mls/hr 04/23/24 00:00 04/26/24 12:30 Zosyn 2.25 Gm/Ns 50 Ml IVPB Infused Q6HR ROSY Infusion Fluconazole/Dextrose 100 mg in 50 mls @ 50 mls/hr 04/22/24 22:00 04/25/24 23:10 Diflucan 100 Mg/Nacl 50 Ml IVPB Infused Q24H ROSY Infusion Dextrose 1,000 mls @ 100 mls/hr 04/22/24 23:06 Dextrose 5% 1,000 Ml IVPB PRN PRN Hypoglycemia Protocol Dextrose 1,000 mls @ 50 mls/hr 04/25/24 10:46 Dextrose 10% IV CONT .Q20H PRN if PN is interrupted Multivitamins 2.5 ml/ 2,005 mls @ 50 mls/hr 04/25/24 12:00 04/26/24 11:59 Multivitamins 2.5 ml/ Amino IV CONT 40 mls/hr Acids/Dextrose .Q24H ROSY Administration Protocol Fat Emulsion Intravenous 250 mls @ 20.833 mls/hr 04/25/24 12:00 04/26/24 11:59 Lipids 20% IVPB 20.83 mls/hr Q24H ROSY Administration Ipratropium [place] 0.5 mg 04/23/24 14:00 04/26/24 07:49 Ipratropium Br 0.02% Inh Soln 0.5 Mg/2.5 Ml Vial INHALATION 0.5 mg Q6HRT ROSY Administration Levalbuterol HCl 0.63 mg 04/23/24 14:00 04/26/24 07:48 Levalbuterol Neb 1.25 Mg/3 Ml INHALATION 0.63 mg Q6HRT ROSY Administration Morphine Sulfate 4 mg 04/22/24 22:02 04/25/24 16:53 Morphine Sulfate (*Crx) 4 Mg/Ml Inj IV PUSH 4 mg Q3H PRN Administration Pain Rated 7-10 Sodium Chloride 10 ml 04/23/24 14:00 04/26/24 14:07 Central Line Flush IV PUSH 10 ml Q8HR ROSY Administration Sodium Chloride 20 ml 04/23/24 10:16 Central Line Flush IV PUSH PRN PRN after blood draws Radiology Results: ITS Impressions Chest/Abdomen/Pelvis CTA 04/22/24 18:10 IMPRESSION: Perforated viscus with a large amount of free air and fluid, with mural thickening in the distal stomach and multiple punctate foci of extraluminal air in this area for which site of perforation is suspected. Renal Ultrasound 04/24/24 11:58 IMPRESSION: Simple cyst in the left kidney upper pole. Other appearances are unremarkable. Chest X-Ray 04/26/24 06:18 Impression: Mild pulmonary edema pattern and bibasilar atelectasis with small bilateral pleural effusions, left greater than right. Right IJ line. Labs Labs: Laboratory Results - last 24 hr 04/22/24 04/25/24 04/26/24 17:42 18:47 05:01 WBC 11.1 H RBC 3.59 L Hgb 10.5 L Hct 32.9 L MCV 91.6 MCH 29.2 MCHC 31.9 L RDW 14.4 Plt Count 150 MPV 11.9 H Immature Gran % (Auto) 5.5 H Neut % (Auto) 80.8 H Lymph % (Auto) 5.5 L [place] % (Auto) 7.0 Eos % (Auto) 0.5 Baso % (Auto) 0.7 Lymph # (Auto) 0.61 L [place] # (Auto) 0.8 H Eos # (Auto) 0.1 Baso # (Auto) 0.1 Abs Immat Gran (auto) 0.61 H Absolute Neuts (auto) 8.9 H Absolute Nucleated RBC 0.000 Nucleated RBC % 0.0 Sodium 147 H Potassium 3.5 Chloride 108 H Carbon Dioxide 27 Anion Gap 12 BUN 89 H Creatinine 3.63 H Estim Creat Clear Calc 21 Estimated GFR 16 L Glucose 102 POC Capillary Glucose 118 H Calcium 9.0 Phosphorus 4.7 H Magnesium 2.2 Total Bilirubin 2.2 H AST 25 ALT 23 Alkaline Phosphatase 103 Total Creatine Kinase 238 H Total Protein 6.0 L Albumin 3.9 Triglycerides 239 H Blood Type A Positive Antibody Screen Negative Crossmatch See Detail 04/26/24 12:08 WBC RBC Hgb Hct MCV MCH MCHC RDW Plt Count MPV Immature Gran % (Auto) Neut % (Auto) Lymph % (Auto) [place] % (Auto) Eos % (Auto) Baso % (Auto) Lymph # (Auto) [place] # (Auto) Eos # (Auto) Baso # (Auto) Abs Immat Gran (auto) Absolute Neuts (auto) Absolute Nucleated RBC Nucleated RBC % Sodium Potassium Chloride Carbon Dioxide Anion Gap BUN Creatinine Estim Creat Clear Calc Estimated GFR Glucose POC Capillary Glucose 120 H Calcium Phosphorus Magnesium Total Bilirubin AST ALT Alkaline Phosphatase Total Creatine Kinase Total Protein Albumin Triglycerides Blood Type Antibody Screen Crossmatch
[2024-04-26 17:11] LABS: Anion Gap 11 mmol/L (4-12); Blood Urea Nitrogen 83 mg/dL (9-20); Calcium 8.8 mg/dL (8.4-10.2); Carbon Dioxide 27 mmol/L (22-30); Chloride 108 mmol/L (98-107); Estimated CRCL calculation 28 ml/min; Estimated Glomerular Filt Rate 23; Glucose 126 mg/dL (65-110); Potassium 3.3 mmol/L (3.4-5.0); Sodium 146 mmol/L (137-145)
[2024-04-26] MEDS: KCL 20 MEQ/D5W 1,000 ML 1,000 ML 100 ML IV CONT (17:49)
[2024-04-26] MEDS: FLUCONAZOLE 100 MG/NACL 50 ML 100 MG/50 ML BTL 50 MG IVPB (22:15)
[2024-04-26] MEDS: PANTOPRAZOLE SODIUM IV 40 MG VIAL IV PUSH (22:15)
[2024-04-26] MEDS: ACETAMINOPHEN 650 MG SUPPOSITORY RECTAL (22:57)
[2024-04-27] VITALS (29 sets, daily range): BP systolic 135–197; BP diastolic 53–83; PULSE 63–88; RESP 16–22; TEMP 36.4–37.6; O2SAT 90–100; BMI 10.0
[2024-04-27] MEDS: PIPERACILLIN/TAZ 2.25G/NS 50ML 2.25 GM/50 ML BAG IVPB ×5 (00:05→23:53)
[2024-04-27] MEDS: IPRATROPIUM BR 0.02% INH SOLN 0.5 MG/2.5 ML VIAL INHALATION ×4 (01:36→19:42)
[2024-04-27] MEDS: LEVALBUTEROL NEB 1.25 MG/3 ML 0.63 MG INHALATION ×4 (01:36→19:42)
[2024-04-27 04:46] LABS: Hematocrit 37.6 % (42.0-52.0); Hemoglobin 12.1 g/dL (14.0-18.0); Mean Corpuscular HGB Conc 32.2 g/dl (32-36); Mean Corpuscular Hemoglobin 29.2 pg (26-34); Mean Corpuscular Volume 90.6 fl (80-100); Mean Platelet Volume 12.4 fl (7.4-10.4); Platelet Count Result 149 k/mm3 (150-375); Red Blood Count 4.15 M/mm3 (4.6-6.20); Red Cell Distribution Width 14.4 % (11.5-14.5); White Blood Count 10.7 K/mm3 (4.5-10.0)
[2024-04-27 05:03] LABS: Alanine Aminotransferase 19 U/L (6-50); Albumin Level 3.4 g/dL (3.5-5.1); Alkaline Phosphatase 97 U/L (38-126); Anion Gap 11 mmol/L (4-12); Aspartate Amino Transferase 19 U/L (17-59); Bilirubin,Total 2.7 mg/dL (0.2-1.3); Blood Urea Nitrogen 74 mg/dL (9-20); Calcium 8.5 mg/dL (8.4-10.2); Carbon Dioxide 27 mmol/L (22-30); Chloride 108 mmol/L (98-107); Creatine Kinase 118 U/L (55-170); Estimated CRCL calculation 33 ml/min; Estimated Glomerular Filt Rate 27; Glucose 147 mg/dL (65-110); Potassium 3.2 mmol/L (3.4-5.0); Sodium 146 mmol/L (137-145)
[2024-04-27 05:16] LABS: Band Neutrophils Percent 5 % (0-6); Lymphocytes Absolute Manual 0.53 K/mm3 (1.1-4.5); Lymphocytes Percent Manual 5 % (18-44); Monocytes Absolute Manual 0.85 K/mm3 (0.1-0.90); Monocytes Percent Manual 8 % (3-9); Neutrophils Percent Manual 82 % (46-73); Platelet Estimate Adequate (Adequate); Total Cells Counted 100
[2024-04-27 05:17] LABS: Hypochromasia 1+; Large Platelets Present; Schistocytes None Seen
--- NOTE | 2024-04-27 06:02 | PC.NURSE ---
pt transferred to 212 report given to Brianne LAMA
[2024-04-27] MEDS: CENTRAL LINE FLUSH 10 ML IV PUSH ×3 (06:03→20:38)
--- NOTE | 2024-04-27 06:05 | PC.NURSE ---
This patient, Ludin Menon, was received from [ICU room 7 ] on 04/27/24 at 0602. Patient/family oriented to unit policies and routines
--- NOTE | 2024-04-27 09:42 | PM.IMPN ---
Progress Note: A&P Assessment and Plan (1) HTN (hypertension): Code(s): I10 - Essential (primary) hypertension Status: Acute (2) Acute kidney injury superimposed on stage 3b chronic kidney disease: Code(s): N17.9 - Acute kidney failure, unspecified; N18.32 - Chronic kidney disease, stage 3b Status: Acute (3) Hypertensive urgency: Code(s): I16.0 - Hypertensive urgency Status: Acute Plan Acute respiratory failure: Code(s): J96.00 - Acute respiratory failure, unspecified whether with hypoxia or hypercapnia Status: Acute Assessment and Plan: 04/22: Remains intubated post surgery/anesthesia currently on ASV mode of ventilation 100% minute ventilation, peep of 5, 45% FiO2 continue bronchodilators Patient was extubated on April 25, tolerated extubation Now patient is on 2 L oxygen, pulse ox about 96-99 Septic shock: Code(s): A41.9 - Sepsis, unspecified organism; R65.21 - Severe sepsis with septic shock Status: Acute Assessment and Plan: 04/22: Patient presented with abdominal pain, CT abdomen and pelvis revealed perforated gastric ulcer, free air in the abdomen. status post ex lap with open gastrostomy tube placement, repair of the large gastric ulcer with Clarence patch, ELSA drain -patient was hypotensive when he arrived to the ER, with systolic blood pressures in the 60s, was given 2.5 L IV fluids, started on the Levophed. Patient then went to the OR where he had the procedure, remained on Levophed, central line was inserted in the OR and patient was transferred to the ICU upon arrival to the ICU patient required addition of vasopressin along with Levophed Patient is off vasopressors now, no growth from better culture, moved to IMU Continue Zosyn IV Acute kidney injury superimposed on stage 3b chronic kidney disease: Code(s): N17.9 - Acute kidney failure, unspecified; N18.32 - Chronic kidney disease, stage 3b Status: Acute Assessment and Plan: Patient presented with acute on chronic kidney disease creatinine on admission was 4.40 (baseline creatinine is 1.2-1.4) Likely secondary to sepsis Creatinine is trending down slowly Uncontrolled hypertension Continue hydralazine 10 mg IV push p.r.n. with parameters Blood pressure 197/65, tachycardia. Provide labetalol 20 mg IV push once 04/27 CK levels slightly elevated no urine he is on of pills urine lytes showing prerenal picture Perforated gastric ulcer: Onset Date: 04/2024 Qualifiers: Gastric ulcer chronicity: acute Qualified Code(s): K25.1 - Acute gastric ulcer with perforation Code(s): K25.5 - Chronic or unspecified gastric ulcer with perforation Status: Inactive Assessment and Plan: 04/22: Patient presented with abdominal pain, CT abdomen and pelvis revealed perforated gastric ulcer, free air in the abdomen. status post ex lap with open gastrostomy tube placement, repair of the large gastric ulcer with Clarence patch, ELSA drain Patient on Protonix infusion Further management treatment per general surgeon Acute hyperkalemia: Code(s): E87.5 - Hyperkalemia Status: Acute Assessment and Plan: RESOLVED -continue to monitor Subjective Date/time seen: 04/27/24 09:42 Interval history: I saw examined the patient today, patient denies nausea vomiting, patient has not passed gas yet. Patient also denies headache, chest pain headache, focal weakness. Labs reviewed. Patient afebrile, blood pressure is not well controlled Exam Narrative: General: Patient is awake but closes eyes, in no acute distress HEENT:? Pupils equal and reactive, sclerae is clear Neck:? Supple Respiratory:? Coarse breath sounds bilaterally, decreased at bases, adequate air entry, no wheezing Cardiac:? S1-S2 is normal, rate controlled Abdomen:? Soft, nondistended, tender to palpation, very hypoactive bowel sound Extremities:? Bilateral feet are warm, pulses are palpable, discoloration of the feet has resolved Neuro:? Patient is awake,, opens his eyes, follows simple commands in all extremities, able to answer questions. Oriented to his date of , he knew the name of the president. He did not know where he was or what year it was Skin:? Dry scaly skin - bilateral lower extremity Psych:? Unable to assess at this time Objective Data Vital Signs Vital Signs: Vital Signs - 24 hr 04/26/24 10:04/26/24 10:04/26/24 12:00 Temperature 98.2 F Pulse Rate 74 74 Respiratory Rate 12 Blood Pressure 164/68 H Pulse Oximetry 94 95 Oxygen Delivery Nasal Cannula Oxygen Flow Rate 2 Fraction of Inspired Oxygen 04/26/24 12:00 04/26/24 12:00 04/26/24 14:00 Temperature 98.9 F Pulse Rate 75 73 73 Respiratory Rate 12 Blood Pressure 157/73 H Pulse Oximetry 95 Oxygen Delivery Oxygen Flow Rate Fraction of Inspired Oxygen 04/26/24 14:00 04/26/24 14:39 04/26/24 14:53 Temperature 98.9 F Pulse Rate 72 72 77 Respiratory Rate 16 20 20 Blood Pressure 171/72 H Pulse Oximetry 95 Oxygen Delivery Oxygen Flow Rate Fraction of Inspired Oxygen 04/26/24 16:00 04/26/24 16:00 04/26/24 16:00 Temperature 99.6 F Pulse Rate 77 83 Respiratory Rate 16 Blood Pressure 169/64 H Pulse Oximetry 93 93 Oxygen Delivery Nasal Cannula Oxygen Flow Rate 2 Fraction of Inspired Oxygen 04/26/24 18:00 04/26/24 18:00 04/26/24 19:25 Temperature 99.9 F H Pulse Rate 77 77 78 Respiratory Rate 18 17 Blood Pressure 169/64 H Pulse Oximetry 95 95 Oxygen Delivery Nasal Cannula Oxygen Flow Rate 2 Fraction of Inspired Oxygen 04/26/24 19:27 04/26/24 19:43 04/26/24 19:43 Temperature Pulse Rate 78 72 Respiratory Rate 16 Blood Pressure Pulse Oximetry 94 Oxygen Delivery Nasal Cannula Oxygen Flow Rate 2 Fraction of Inspired Oxygen 28 04/26/24 19:56 04/26/24 20:00 04/26/24 21:28 Temperature 98.9 F Pulse Rate 71 88 74 Respiratory Rate 16 16 Blood Pressure 146/84 H Pulse Oximetry 98 Oxygen Delivery Oxygen Flow Rate Fraction of Inspired Oxygen 04/26/24 22:00 04/27/24 00:00 04/27/24 00:00 Temperature 100 F H Pulse Rate 72 73 72 Respiratory Rate 18 18 Blood Pressure Pulse Oximetry 90 90 Oxygen Delivery Nasal Cannula Oxygen Flow Rate 2 Fraction of Inspired Oxygen 04/27/24 00:00 04/27/24 01:36 04/27/24 01:44 Temperature 99.6 F Pulse Rate 73 81 71 Respiratory Rate 17 18 16 Blood Pressure 160/67 H Pulse Oximetry 96 Oxygen Delivery Oxygen Flow Rate Fraction of Inspired Oxygen 04/27/24 02:00 04/27/24 04:00 04/27/24 04:00 Temperature 99.4 F Pulse Rate 63 68 68 Respiratory Rate 16 16 Blood Pressure 135/83 Pulse Oximetry 95 95 Oxygen Delivery Nasal Cannula Oxygen Flow Rate 2 Fraction of Inspired Oxygen 04/27/24 04:00 04/27/24 05:53 04/27/24 06:10 Temperature 97.8 F Pulse Rate 68 73 73 Respiratory Rate 20 Blood Pressure 164/74 H Pulse Oximetry 97 Oxygen Delivery Oxygen Flow Rate Fraction of Inspired Oxygen 04/27/24 06:26 04/27/24 08:03 04/27/24 08:59 Temperature 98.9 F Pulse Rate 67 Respiratory Rate 20 Blood Pressure 187/72 H Pulse Oximetry 97 96 97 Oxygen Delivery Nasal Cannula Nasal Cannula Oxygen Flow Rate 2 2 Fraction of Inspired Oxygen 04/27/24 08:59 04/27/24 09:14 Temperature Pulse Rate 69 88 Respiratory Rate 20 20 Blood Pressure Pulse Oximetry Oxygen Delivery Oxygen Flow Rate Fraction of Inspired Oxygen Intake/Output Intake/Output: Intake & Output 04/24/24 04/25/24 04/26/24 04/27/24 23:59 23:59 23:59 23:59 Intake Total 2303.7 1650 3188.2 300 Output Total 1550 2505 4250 2150 Balance 753.7 -855 -1061.8 -1850 Meds/Results Medications: Active Medications Generic Name Dose Route Start Last Admin Trade Name Freq PRN Reason Stop Dose Admin Acetaminophen 650 mg 04/26/24 22:19 04/26/24 22:57 Acetaminophen 650 Mg Suppository RECTAL 650 mg Q6H PRN Administration Mild Pain (1-3) or Fever Artificial Tears 1 drop 04/27/24 08:37 Artificial Tears Ophth Soln 15 Ml Bottle EACH EYE QID PRN Dry Eye(s) Dextrose 12.5 gm 04/22/24 23:06 Dextrose 50% 25 Gm/50 Ml Syringe IV PUSH PRN PRN Hypoglycemia Protocol Enoxaparin Sodium 30 mg 04/23/24 09:00 04/26/24 08:29 Enoxaparin 30 Mg/0.3 Ml Syringe SUB-Q 30 mg DAILY ROSY Administration Glucagon 1 mg 04/22/24 23:06 Glucagon For Inj 1 Mg Vial IM PRN PRN Hypoglycemia Protocol Glucose 15 gm 04/22/24 23:06 Glucose Oral Gel 15 Gm Of Glucse In 37.5 Gm Tube PO PRN PRN Hypoglycemia Protocol Hydralazine HCl 10 mg 04/25/24 08:00 04/26/24 14:07 Hydralazine Hcl 20 Mg/Ml Vial IV PUSH 10 mg Q4H PRN Administration Blood Pressure - High Piperacillin Sod/Tazobactam Sod 2.25 gm in 50 mls @ 100 mls/hr 04/23/24 00:00 04/27/24 06:02 Zosyn 2.25 Gm/Ns 50 Ml IVPB 100 mls/hr Q6HR ROSY Administration Fluconazole/Dextrose 100 mg in 50 mls @ 50 mls/hr 04/22/24 22:00 04/26/24 23:10 Diflucan 100 Mg/Nacl 50 Ml IVPB Infused Q24H ROSY Infusion Dextrose 1,000 mls @ 100 mls/hr 04/22/24 23:06 Dextrose 5% 1,000 Ml IVPB PRN PRN Hypoglycemia Protocol Dextrose 1,000 mls @ 50 mls/hr 04/25/24 10:46 Dextrose 10% IV CONT .Q20H PRN if PN is interrupted Multivitamins 2.5 ml/ 2,005 mls @ 50 mls/hr 04/25/24 12:00 04/26/24 15:50 Multivitamins 2.5 ml/ Amino IV CONT 50 mls/hr Acids/Dextrose .Q24H ROSY Infusion Protocol Fat Emulsion Intravenous 250 mls @ 20.833 mls/hr 04/25/24 12:00 04/27/24 00:00 Lipids 20% IVPB Infused Q24H ROSY Infusion Ipratropium [place] 0.5 mg 04/23/24 14:00 04/27/24 08:57 Ipratropium Br 0.02% Inh Soln 0.5 Mg/2.5 Ml Vial INHALATION 0.5 mg Q6HRT ROSY Administration Levalbuterol HCl 0.63 mg 04/23/24 14:00 04/27/24 08:57 Levalbuterol Neb 1.25 Mg/3 Ml INHALATION 0.63 mg Q6HRT ROSY Administration Morphine Sulfate 4 mg 04/22/24 22:02 04/25/24 16:53 Morphine Sulfate (*Crx) 4 Mg/Ml Inj IV PUSH 4 mg Q3H PRN Administration Pain Rated 7-10 Pantoprazole Sodium 40 mg 04/26/24 21:00 04/26/24 22:15 Pantoprazole Sodium Iv 40 Mg Vial IV PUSH 40 mg Q12HR ROSY Administration Sodium Chloride 10 ml 04/23/24 14:00 04/27/24 06:03 Central Line Flush IV PUSH 10 ml Q8HR ROSY Administration Sodium Chloride 20 ml 04/23/24 10:16 Central Line Flush IV PUSH PRN PRN after blood draws Radiology Results: ITS Impressions Chest/Abdomen/Pelvis CTA 04/22/24 18:10 IMPRESSION: Perforated viscus with a large amount of free air and fluid, with mural thickening in the distal stomach and multiple punctate foci of extraluminal air in this area for which site of perforation is suspected. Renal Ultrasound 04/24/24 11:58 IMPRESSION: Simple cyst in the left kidney upper pole. Other appearances are unremarkable. Chest X-Ray 04/26/24 06:18 Impression: Mild pulmonary edema pattern and bibasilar atelectasis with small bilateral pleural effusions, left greater than right. Right IJ line. Labs Labs: Laboratory Results - last 24 hr 04/26/24 04/26/24 04/27/24 12:08 16:50 04:34 WBC 10.7 H RBC 4.15 L Hgb 12.1 L Hct 37.6 L MCV 90.6 MCH 29.2 MCHC 32.2 RDW 14.4 Plt Count 149 L MPV 12.4 H Immature Gran % (Auto) Not Reportable Neut % (Auto) Not Reportable Lymph % (Auto) Not Reportable [place] % (Auto) Not Reportable Eos % (Auto) Not Reportable Baso % (Auto) Not Reportable Lymph # (Auto) Not Reportable [place] # (Auto) Not Reportable Eos # (Auto) Not Reportable Baso # (Auto) Not Reportable Abs Immat Gran (auto) Not Reportable Absolute Neuts (auto) Not Reportable Absolute Nucleated RBC Not Reportable Total Counted 100 Neutrophils % (Manual) 82 H Band Neutrophils % 5 Lymphocytes % (Manual) 5 L Monocytes % (Manual) 8 Nucleated RBC % Not Reportable Abs Neuts (Manual) 9.30 H Abs Lymphs (Manual) 0.53 L Abs Monocytes (Manual) 0.85 Platelet Estimate Adequate Large Platelets Present Hypochromasia 1+ Schistocytes None seen Sodium 146 H 146 H Potassium 3.3 L 3.2 L Chloride 108 H 108 H Carbon Dioxide 27 27 Anion Gap 11 11 BUN 83 H 74 H Creatinine 2.76 H 2.33 H Estim Creat Clear Calc 28 33 Estimated GFR 23 L 27 L Glucose 126 H 147 H POC Capillary Glucose 120 H Calcium 8.8 8.5 Phosphorus 3.0 Magnesium 2.0 Total Bilirubin 2.7 H AST 19 ALT 19 Alkaline Phosphatase 97 Total Creatine Kinase 118 Total Protein 6.0 L Albumin 3.4 L
[2024-04-27] MEDS: PANTOPRAZOLE SODIUM IV 40 MG VIAL IV PUSH ×2 (09:54→20:38)
[2024-04-27] MEDS: ENOXAPARIN 30 MG/0.3 ML SYRINGE SUB-Q (09:54)
[2024-04-27] MEDS: POTASSIUM CHLORIDE INJ 40 MEQ in SODIUM CHLORIDE 0.9% IV 500 ML 130 MEQ IVPB (10:09)
--- NOTE | 2024-04-27 10:09 | PM.PNNEP ---
Progress Note: A&P Assessment and Plan (1) Acute kidney injury superimposed on stage 3b chronic kidney disease: Code(s): N17.9 - Acute kidney failure, unspecified; N18.32 - Chronic kidney disease, stage 3b Status: Acute Assessment and Plan: the patient has Chronic kidney disease. His baseline creatinine is around 1.5. This is probably related to hypertension, peripheral vascular disease, and possibly chronic nonsteroidal anti-inflammatory agent use. we can evaluate this further when he recovers, possibly in the office if he needs follow-up. The patient has acute kidney injury. CT shows normal kidneys Renal sono simple cyst x 1 o/w unremarkable. Urine 'lytes are prerenal there are multiple contributing factors. diclofenac hypotension septic shock third spacing His urine output is doing well. He received Bumex 2 days ago. But none since. The creatinine is improved (2) Perforated gastric ulcer: Onset Date: 04/2024 Qualifiers: Gastric ulcer chronicity: acute Qualified Code(s): K25.1 - Acute gastric ulcer with perforation Code(s): K25.5 - Chronic or unspecified gastric ulcer with perforation Status: Inactive Assessment and Plan: He had a perforated gastric ulcer, likely related to nonsteroidal anti-inflammatory agents. This was repaired in the OR and he is recovering from this. (3) Acute respiratory failure: Code(s): J96.00 - Acute respiratory failure, unspecified whether with hypoxia or hypercapnia Status: Acute Assessment and Plan: the patient is breathing on his own. (4) Shock circulatory: Code(s): R57.9 - Shock, unspecified Status: Acute Assessment and Plan: Blood pressure doing well (5) Anemia: Code(s): D64.9 - Anemia, unspecified Status: Acute Assessment and Plan: hemoglobin 10.5. (6) Acute hyperkalemia: Code(s): E87.5 - Hyperkalemia Status: Acute Assessment and Plan: His potassium is fine today. (7) HTN (hypertension): Code(s): I10 - Essential (primary) hypertension Status: Acute Assessment and Plan: Blood pressure meds are on hold (8) Hypercholesterolemia: Code(s): E78.00 - Pure hypercholesterolemia, unspecified Status: Acute Assessment and Plan: atorvastatin is on hold Subjective Date/time seen: 04/27/24 10:09 Interval history: Patient is more awake. He did not recognize be. He is just waking Exam Narrative: WDWN male resting comfortably in bed in NAD Neuro alert and interactive skin no rash or subcu nodules head ncat lungs fairly clear cor reg no rub abd BS absent, may be a tingle or two, and distended ext 1+ bilateral presacral edema. Objective Data Vital Signs Vital Signs: Vital Signs - 24 hr 04/26/24 12:00 04/26/24 12:00 04/26/24 12:00 Temperature 98.9 F Pulse Rate 75 73 Respiratory Rate 12 Blood Pressure 157/73 H Pulse Oximetry 95 95 Oxygen Delivery Nasal Cannula Oxygen Flow Rate 2 Fraction of Inspired Oxygen 04/26/24 14:00 04/26/24 14:00 04/26/24 14:39 Temperature 98.9 F Pulse Rate 73 72 72 Respiratory Rate 16 20 Blood Pressure 171/72 H Pulse Oximetry 95 Oxygen Delivery Oxygen Flow Rate Fraction of Inspired Oxygen 04/26/24 14:53 04/26/24 16:00 04/26/24 16:00 Temperature 99.6 F Pulse Rate 77 77 Respiratory Rate 20 16 Blood Pressure 169/64 H Pulse Oximetry 93 93 Oxygen Delivery Nasal Cannula Oxygen Flow Rate 2 Fraction of Inspired Oxygen 04/26/24 16:00 04/26/24 18:00 04/26/24 18:00 Temperature 99.9 F H Pulse Rate 83 77 77 Respiratory Rate 18 Blood Pressure 169/64 H Pulse Oximetry 95 Oxygen Delivery Oxygen Flow Rate Fraction of Inspired Oxygen 04/26/24 19:25 04/26/24 19:27 04/26/24 19:43 Temperature Pulse Rate 78 78 Respiratory Rate 17 Blood Pressure Pulse Oximetry 95 94 Oxygen Delivery Nasal Cannula Nasal Cannula Oxygen Flow Rate 2 2 Fraction of Inspired Oxygen 28 04/26/24 19:43 04/26/24 19:56 04/26/24 20:00 Temperature 98.9 F Pulse Rate 72 71 88 Respiratory Rate 16 16 16 Blood Pressure 146/84 H Pulse Oximetry 98 Oxygen Delivery Oxygen Flow Rate Fraction of Inspired Oxygen 04/26/24 21:28 04/26/24 22:00 04/27/24 00:00 Temperature 100 F H Pulse Rate 74 72 73 Respiratory Rate 18 18 Blood Pressure Pulse Oximetry 90 90 Oxygen Delivery Nasal Cannula Oxygen Flow Rate 2 Fraction of Inspired Oxygen 04/27/24 00:00 04/27/24 00:00 04/27/24 01:36 Temperature 99.6 F Pulse Rate 72 73 81 Respiratory Rate 17 18 Blood Pressure 160/67 H Pulse Oximetry 96 Oxygen Delivery Oxygen Flow Rate Fraction of Inspired Oxygen 04/27/24 01:44 04/27/24 02:00 04/27/24 04:00 Temperature 99.4 F Pulse Rate 71 63 68 Respiratory Rate 16 16 Blood Pressure 135/83 Pulse Oximetry 95 Oxygen Delivery Oxygen Flow Rate Fraction of Inspired Oxygen 04/27/24 04:00 04/27/24 04:00 04/27/24 05:53 Temperature Pulse Rate 68 68 73 Respiratory Rate 16 Blood Pressure Pulse Oximetry 95 Oxygen Delivery Nasal Cannula Oxygen Flow Rate 2 Fraction of Inspired Oxygen 04/27/24 06:10 04/27/24 06:26 04/27/24 08:03 Temperature 97.8 F 98.9 F Pulse Rate 73 67 Respiratory Rate 20 20 Blood Pressure 164/74 H 187/72 H Pulse Oximetry 97 97 96 Oxygen Delivery Nasal Cannula Oxygen Flow Rate 2 Fraction of Inspired Oxygen 04/27/24 08:59 04/27/24 08:59 04/27/24 09:14 Temperature Pulse Rate 69 88 Respiratory Rate 20 20 Blood Pressure Pulse Oximetry 97 Oxygen Delivery Nasal Cannula Oxygen Flow Rate 2 Fraction of Inspired Oxygen Intake/Output Intake/Output: Intake & Output 04/24/24 04/25/24 04/26/24 04/27/24 23:59 23:59 23:59 23:59 Intake Total 2303.7 1650 3188.2 300 Output Total 1550 2505 4250 2150 Balance 753.7 -855 -1061.8 -1850 Meds/Results Medications: Active Medications Generic Name Dose Route Start Last Admin Trade Name Freq PRN Reason Stop Dose Admin Acetaminophen 650 mg 04/26/24 22:19 04/26/24 22:57 Acetaminophen 650 Mg Suppository RECTAL 650 mg Q6H PRN Administration Mild Pain (1-3) or Fever Artificial Tears 1 drop 04/27/24 08:37 Artificial Tears Ophth Soln 15 Ml Bottle EACH EYE QID PRN Dry Eye(s) Dextrose 12.5 gm 04/22/24 23:06 Dextrose 50% 25 Gm/50 Ml Syringe IV PUSH PRN PRN Hypoglycemia Protocol Enoxaparin Sodium 30 mg 04/23/24 09:00 04/27/24 09:54 Enoxaparin 30 Mg/0.3 Ml Syringe SUB-Q 30 mg DAILY ROSY Administration Glucagon 1 mg 04/22/24 23:06 Glucagon For Inj 1 Mg Vial IM PRN PRN Hypoglycemia Protocol Glucose 15 gm 04/22/24 23:06 Glucose Oral Gel 15 Gm Of Glucse In 37.5 Gm Tube PO PRN PRN Hypoglycemia Protocol Hydralazine HCl 10 mg 04/25/24 08:00 04/26/24 14:07 Hydralazine Hcl 20 Mg/Ml Vial IV PUSH 10 mg Q4H PRN Administration Blood Pressure - High Piperacillin Sod/Tazobactam Sod 2.25 gm in 50 mls @ 100 mls/hr 04/23/24 00:00 04/27/24 06:02 Zosyn 2.25 Gm/Ns 50 Ml IVPB 100 mls/hr Q6HR ROSY Administration Fluconazole/Dextrose 100 mg in 50 mls @ 50 mls/hr 04/22/24 22:00 04/26/24 23:10 Diflucan 100 Mg/Nacl 50 Ml IVPB Infused Q24H ROSY Infusion Dextrose 1,000 mls @ 100 mls/hr 04/22/24 23:06 Dextrose 5% 1,000 Ml IVPB PRN PRN Hypoglycemia Protocol Dextrose 1,000 mls @ 50 mls/hr 04/25/24 10:46 Dextrose 10% IV CONT .Q20H PRN if PN is interrupted Multivitamins 2.5 ml/ 2,005 mls @ 50 mls/hr 04/25/24 12:00 04/26/24 15:50 Multivitamins 2.5 ml/ Amino IV CONT 50 mls/hr Acids/Dextrose .Q24H ROSY Infusion Protocol Fat Emulsion Intravenous 250 mls @ 20.833 mls/hr 04/25/24 12:00 04/27/24 00:00 Lipids 20% IVPB Infused Q24H ROSY Infusion Potassium Chloride 40 meq/ 520 mls @ 130 mls/hr 04/27/24 09:47 Sodium Chloride IVPB 04/27/24 13:46 ONCE ONE Ipratropium [place] 0.5 mg 04/23/24 14:00 04/27/24 08:57 Ipratropium Br 0.02% Inh Soln 0.5 Mg/2.5 Ml Vial INHALATION 0.5 mg Q6HRT ROSY Administration Levalbuterol HCl 0.63 mg 04/23/24 14:00 04/27/24 08:57 Levalbuterol Neb 1.25 Mg/3 Ml INHALATION 0.63 mg Q6HRT ROSY Administration Morphine Sulfate 4 mg 04/22/24 22:02 04/25/24 16:53 Morphine Sulfate (*Crx) 4 Mg/Ml Inj IV PUSH 4 mg Q3H PRN Administration Pain Rated 7-10 Pantoprazole Sodium 40 mg 04/26/24 21:00 04/27/24 09:54 Pantoprazole Sodium Iv 40 Mg Vial IV PUSH 40 mg Q12HR ROSY Administration Sodium Chloride 10 ml 04/23/24 14:00 04/27/24 06:03 Central Line Flush IV PUSH 10 ml Q8HR ROSY Administration Sodium Chloride 20 ml 04/23/24 10:16 Central Line Flush IV PUSH PRN PRN after blood draws Radiology Results: ITS Impressions Chest/Abdomen/Pelvis CTA 04/22/24 18:10 IMPRESSION: Perforated viscus with a large amount of free air and fluid, with mural thickening in the distal stomach and multiple punctate foci of extraluminal air in this area for which site of perforation is suspected. Renal Ultrasound 04/24/24 11:58 IMPRESSION: Simple cyst in the left kidney upper pole. Other appearances are unremarkable. Chest X-Ray 04/26/24 06:18 Impression: Mild pulmonary edema pattern and bibasilar atelectasis with small bilateral pleural effusions, left greater than right. Right IJ line. Labs Labs: Laboratory Results - last 24 hr 04/26/24 04/26/24 04/27/24 12:08 16:50 04:34 WBC 10.7 H RBC 4.15 L Hgb 12.1 L Hct 37.6 L MCV 90.6 MCH 29.2 MCHC 32.2 RDW 14.4 Plt Count 149 L MPV 12.4 H Immature Gran % (Auto) Not Reportable Neut % (Auto) Not Reportable Lymph % (Auto) Not Reportable [place] % (Auto) Not Reportable Eos % (Auto) Not Reportable Baso % (Auto) Not Reportable Lymph # (Auto) Not Reportable [place] # (Auto) Not Reportable Eos # (Auto) Not Reportable Baso # (Auto) Not Reportable Abs Immat Gran (auto) Not Reportable Absolute Neuts (auto) Not Reportable Absolute Nucleated RBC Not Reportable Total Counted 100 Neutrophils % (Manual) 82 H Band Neutrophils % 5 Lymphocytes % (Manual) 5 L Monocytes % (Manual) 8 Nucleated RBC % Not Reportable Abs Neuts (Manual) 9.30 H Abs Lymphs (Manual) 0.53 L Abs Monocytes (Manual) 0.85 Platelet Estimate Adequate Large Platelets Present Hypochromasia 1+ Schistocytes None seen Sodium 146 H 146 H Potassium 3.3 L 3.2 L Chloride 108 H 108 H Carbon Dioxide 27 27 Anion Gap 11 11 BUN 83 H 74 H Creatinine 2.76 H 2.33 H Estim Creat Clear Calc 28 33 Estimated GFR 23 L 27 L Glucose 126 H 147 H POC Capillary Glucose 120 H Calcium 8.8 8.5 Phosphorus 3.0 Magnesium 2.0 Total Bilirubin 2.7 H AST 19 ALT 19 Alkaline Phosphatase 97 Total Creatine Kinase 118 Total Protein 6.0 L Albumin 3.4 L
--- NOTE | 2024-04-27 11:24 | P.PNGS_ITS ---
Progress Note: A&P Assessment and Plan (1) Perforated gastric ulcer: Onset Date: 04/2024 Qualifiers: Gastric ulcer chronicity: acute Qualified Code(s): K25.1 - Acute gastric ulcer with perforation Code(s): K25.5 - Chronic or unspecified gastric ulcer with perforation Status: Inactive Assessment and Plan: Postop day 5, status post laparotomy with repair of large perforated gastric ulcer with omental Clarence patch. Patient had 3L of gastric contents in the abdomen and severe peritonitis in the upper abdomen. ELSA drains x [address] with serous output, continue to monitor for now. Gastrostomy tube in place decompressing the stomach since we were not able to get a nasogastric tube in place. Continue G-tube to gravity. Continue TPN to 50 mL/hr. May consider water- soluble upper GI on Thursday to reassess the repair. Continue IV Zosyn and Fluconazole, continue Protonix IV Q12H. WBC count continues to trend down. Continue PT/OT, will try to get up to the chair today. (2) Acute kidney injury superimposed on stage 3b chronic kidney disease: Code(s): N17.9 - Acute kidney failure, unspecified; N18.32 - Chronic kidney disease, stage 3b Status: Acute Assessment and Plan: Responding well to diuresis. Creatinine coming down. Nephrology following. (3) Septic shock: Code(s): A41.9 - Sepsis, unspecified organism; R65.21 - Severe sepsis with septic shock Status: Acute Assessment and Plan: Resolved. Continue broad-spectrum IV antibiotics as ordered. (4) Acute respiratory failure: Code(s): J96.00 - Acute respiratory failure, unspecified whether with hypoxia or hypercapnia Status: Acute Assessment and Plan: Resolved. Plan I have discussed the patient's case and plan of care with Dr. Moreno. Subjective Subjective Date/Time Seen: 04/27/24 11:24 Post Op day: 5 (Exploratory laparotomy with repair of antral gastric ulcer with omental Clarence patch, Placement of open gastrostomy tube) Patient reports: no flatus, no bowel movement and fever (temp 100F last night around 2200) Interval history: Patient in IMU. He denies any abdominal pain or nausea. He is planning to try to get up into the chair today with therapy. He has not been out of bed since surgery while he was in the ICU intubated. White blood cell count trending down to 10,700 today. RIC improving. Gastrostomy tube with about 250 cc out overnight. good response to diuretics with good urine output. He had about 4100 cc urine output in the past 24 hours. He was about 1 L negative yesterday. Exam Const: General: comfortable and no acute distress Orientation/consciousness: patient oriented x3 GI: Inspection: incision (dry and tono intact, no erythema) and other (abdomen mildly distended) GI Palp: Yes Soft to palpation, Yes Tenderness to palpation present (GI) (tender near midline incision) and No Guarding due to palpation present (GI) Auscultation: absent bowel sounds Other: G tube to gravity with minimal amount of gastric bilious appearing output in odom bag. Skin around the gastrostomy site is clean and dry. ELSA drain x 2 with serous drainage Urinary Catheter: Urinary Catheter: patent and draining Extrem: General: no calf tenderness and no edema Objective Data Vital Signs Vital Signs: Vital Signs - 24 hr 04/26/24 12:00 04/26/24 12:00 04/26/24 12:00 Temperature 98.9 F Pulse Rate 75 73 Respiratory Rate 12 Blood Pressure 157/73 H Pulse Oximetry 95 95 Oxygen Delivery Nasal Cannula Oxygen Flow Rate 2 Fraction of Inspired Oxygen 04/26/24 14:00 04/26/24 14:00 04/26/24 14:39 Temperature 98.9 F Pulse Rate 73 72 72 Respiratory Rate 16 20 Blood Pressure 171/72 H Pulse Oximetry 95 Oxygen Delivery Oxygen Flow Rate Fraction of Inspired Oxygen 04/26/24 14:53 04/26/24 16:00 04/26/24 16:00 Temperature 99.6 F Pulse Rate 77 77 Respiratory Rate 20 16 Blood Pressure 169/64 H Pulse Oximetry 93 93 Oxygen Delivery Nasal Cannula Oxygen Flow Rate 2 Fraction of Inspired Oxygen 04/26/24 16:00 04/26/24 18:00 04/26/24 18:00 Temperature 99.9 F H Pulse Rate 83 77 77 Respiratory Rate 18 Blood Pressure 169/64 H Pulse Oximetry 95 Oxygen Delivery Oxygen Flow Rate Fraction of Inspired Oxygen 04/26/24 19:25 04/26/24 19:27 04/26/24 19:43 Temperature Pulse Rate 78 78 Respiratory Rate 17 Blood Pressure Pulse Oximetry 95 94 Oxygen Delivery Nasal Cannula Nasal Cannula Oxygen Flow Rate 2 2 Fraction of Inspired Oxygen 28 04/26/24 19:43 04/26/24 19:56 04/26/24 20:00 Temperature 98.9 F Pulse Rate 72 71 88 Respiratory Rate 16 16 16 Blood Pressure 146/84 H Pulse Oximetry 98 Oxygen Delivery Oxygen Flow Rate Fraction of Inspired Oxygen 04/26/24 21:28 04/26/24 22:00 04/27/24 00:00 Temperature 100 F H Pulse Rate 74 72 73 Respiratory Rate 18 18 Blood Pressure Pulse Oximetry 90 90 Oxygen Delivery Nasal Cannula Oxygen Flow Rate 2 Fraction of Inspired Oxygen 04/27/24 00:00 04/27/24 00:00 04/27/24 01:36 Temperature 99.6 F Pulse Rate 72 73 81 Respiratory Rate 17 18 Blood Pressure 160/67 H Pulse Oximetry 96 Oxygen Delivery Oxygen Flow Rate Fraction of Inspired Oxygen 04/27/24 01:44 04/27/24 02:00 04/27/24 04:00 Temperature 99.4 F Pulse Rate 71 63 68 Respiratory Rate 16 16 Blood Pressure 135/83 Pulse Oximetry 95 Oxygen Delivery Oxygen Flow Rate Fraction of Inspired Oxygen 04/27/24 04:00 04/27/24 04:00 04/27/24 05:53 Temperature Pulse Rate 68 68 73 Respiratory Rate 16 Blood Pressure Pulse Oximetry 95 Oxygen Delivery Nasal Cannula Oxygen Flow Rate 2 Fraction of Inspired Oxygen 04/27/24 06:10 04/27/24 06:26 04/27/24 08:03 Temperature 97.8 F 98.9 F Pulse Rate 73 67 Respiratory Rate 20 20 Blood Pressure 164/74 H 187/72 H Pulse Oximetry 97 97 96 Oxygen Delivery Nasal Cannula Oxygen Flow Rate 2 Fraction of Inspired Oxygen 04/27/24 08:59 04/27/24 08:59 04/27/24 09:14 Temperature Pulse Rate 69 88 Respiratory Rate 20 20 Blood Pressure Pulse Oximetry 97 Oxygen Delivery Nasal Cannula Oxygen Flow Rate 2 Fraction of Inspired Oxygen Intake/Output Intake/Output: Intake & Output 04/24/24 04/25/24 04/26/24 04/27/24 23:59 23:59 23:59 23:59 Intake Total 2303.7 1650 3188.2 300 Output Total 1550 2505 4250 2150 Balance 753.7 -855 -1061.8 -1850 Meds/Results Medications: Active Medications Generic Name Dose Route Start Last Admin Trade Name Freq PRN Reason Stop Dose Admin Acetaminophen 650 mg 04/26/24 22:19 04/26/24 22:57 Acetaminophen 650 Mg Suppository RECTAL 650 mg Q6H PRN Administration Mild Pain (1-3) or Fever Artificial Tears 1 drop 04/27/24 08:37 Artificial Tears Ophth Soln 15 Ml Bottle EACH EYE QID PRN Dry Eye(s) Dextrose 12.5 gm 04/22/24 23:06 Dextrose 50% 25 Gm/50 Ml Syringe IV PUSH PRN PRN Hypoglycemia Protocol Enoxaparin Sodium 30 mg 04/23/24 09:00 04/27/24 09:54 Enoxaparin 30 Mg/0.3 Ml Syringe SUB-Q 30 mg DAILY ROSY Administration Glucagon 1 mg 04/22/24 23:06 Glucagon For Inj 1 Mg Vial IM PRN PRN Hypoglycemia Protocol Glucose 15 gm 04/22/24 23:06 Glucose Oral Gel 15 Gm Of Glucse In 37.5 Gm Tube PO PRN PRN Hypoglycemia Protocol Hydralazine HCl 10 mg 04/25/24 08:00 04/26/24 14:07 Hydralazine Hcl 20 Mg/Ml Vial IV PUSH 10 mg Q4H PRN Administration Blood Pressure - High Piperacillin Sod/Tazobactam Sod 2.25 gm in 50 mls @ 100 mls/hr 04/23/24 00:00 04/27/24 06:02 Zosyn 2.25 Gm/Ns 50 Ml IVPB 100 mls/hr Q6HR ROSY Administration Fluconazole/Dextrose 100 mg in 50 mls @ 50 mls/hr 04/22/24 22:00 04/26/24 23:10 Diflucan 100 Mg/Nacl 50 Ml IVPB Infused Q24H ROSY Infusion Dextrose 1,000 mls @ 100 mls/hr 04/22/24 23:06 Dextrose 5% 1,000 Ml IVPB PRN PRN Hypoglycemia Protocol Dextrose 1,000 mls @ 50 mls/hr 04/25/24 10:46 Dextrose 10% IV CONT .Q20H PRN if PN is interrupted Multivitamins 2.5 ml/ 2,005 mls @ 50 mls/hr 04/25/24 12:00 04/26/24 15:50 Multivitamins 2.5 ml/ Amino IV CONT 50 mls/hr Acids/Dextrose .Q24H ROSY Infusion Protocol Fat Emulsion Intravenous 250 mls @ 20.833 mls/hr 04/25/24 12:00 04/27/24 00:00 Lipids 20% IVPB Infused Q24H ROSY Infusion Potassium Chloride 40 meq/ 520 mls @ 130 mls/hr 04/27/24 09:47 04/27/24 10:09 Sodium Chloride IVPB 04/27/24 13:46 130 mls/hr ONCE ONE Administration Ipratropium [place] 0.5 mg 04/23/24 14:00 04/27/24 08:57 Ipratropium Br 0.02% Inh Soln 0.5 Mg/2.5 Ml Vial INHALATION 0.5 mg Q6HRT ROSY Administration Levalbuterol HCl 0.63 mg 04/23/24 14:00 04/27/24 08:57 Levalbuterol Neb 1.25 Mg/3 Ml INHALATION 0.63 mg Q6HRT ROSY Administration Morphine Sulfate 4 mg 04/22/24 22:02 04/25/24 16:53 Morphine Sulfate (*Crx) 4 Mg/Ml Inj IV PUSH 4 mg Q3H PRN Administration Pain Rated 7-10 Pantoprazole Sodium 40 mg 04/26/24 21:00 04/27/24 09:54 Pantoprazole Sodium Iv 40 Mg Vial IV PUSH 40 mg Q12HR ROSY Administration Sodium Chloride 10 ml 04/23/24 14:00 04/27/24 06:03 Central Line Flush IV PUSH 10 ml Q8HR ROSY Administration Sodium Chloride 20 ml 04/23/24 10:16 Central Line Flush IV PUSH PRN PRN after blood draws Radiology Results: ITS Impressions Chest/Abdomen/Pelvis CTA 04/22/24 18:10 IMPRESSION: Perforated viscus with a large amount of free air and fluid, with mural thickening in the distal stomach and multiple punctate foci of extraluminal air in this area for which site of perforation is suspected. Renal Ultrasound 04/24/24 11:58 IMPRESSION: Simple cyst in the left kidney upper pole. Other appearances are unremarkable. Chest X-Ray 04/26/24 06:18 Impression: Mild pulmonary edema pattern and bibasilar atelectasis with small bilateral pleural effusions, left greater than right. Right IJ line. Labs Labs: Laboratory Results - last 24 hr 04/26/24 04/26/2425 12:08 16:50 04:34 WBC 10.7 H RBC 4.15 L Hgb 12.1 L Hct 37.6 L MCV 90.6 MCH 29.2 MCHC 32.2 RDW 14.4 Plt Count 149 L MPV 12.4 H Immature Gran % (Auto) Not Reportable Neut % (Auto) Not Reportable Lymph % (Auto) Not Reportable [place] % (Auto) Not Reportable Eos % (Auto) Not Reportable Baso % (Auto) Not Reportable Lymph # (Auto) Not Reportable [place] # (Auto) Not Reportable Eos # (Auto) Not Reportable Baso # (Auto) Not Reportable Abs Immat Gran (auto) Not Reportable Absolute Neuts (auto) Not Reportable Absolute Nucleated RBC Not Reportable Total Counted 100 Neutrophils % (Manual) 82 H Band Neutrophils % 5 Lymphocytes % (Manual) 5 L Monocytes % (Manual) 8 Nucleated RBC % Not Reportable Abs Neuts (Manual) 9.30 H Abs Lymphs (Manual) 0.53 L Abs Monocytes (Manual) 0.85 Platelet Estimate Adequate Large Platelets Present Hypochromasia 1+ Schistocytes None seen Sodium 146 H 146 H Potassium 3.3 L 3.2 L Chloride 108 H 108 H Carbon Dioxide 27 27 Anion Gap 11 11 BUN 83 H 74 H Creatinine 2.76 H 2.33 H Estim Creat Clear Calc 28 33 Estimated GFR 23 L 27 L Glucose 126 H 147 H POC Capillary Glucose 120 H Calcium 8.8 8.5 Phosphorus 3.0 Magnesium 2.0 Total Bilirubin 2.7 H AST 19 ALT 19 Alkaline Phosphatase 97 Total Creatine Kinase 118 Total Protein 6.0 L Albumin 3.4 L
[2024-04-27] MEDS: AMINO ACIDS 5%/DEXTROSE 15% 2,000 ML with MULTIVITAMINS-12 INJ VIAL 1 2.5 ML, MULTIVITA... 50 ML IV CONT (11:44)
[2024-04-27] MEDS: FAT EMULSIONS IV 20% 250 ML 20.83 ML IVPB (11:44)
[2024-04-27 12:06] LABS: Glucose Point of Care 118 mg/dl (65-105)
[2024-04-27] MEDS: LABETALOL HCL INJ 100 MG/20 ML VIAL 20 MG IV PUSH (13:37)
[2024-04-27] MEDS: hydrALAZINE HCL 20 MG/ML VIAL 10 MG IV PUSH ×2 (15:21→17:16)
[2024-04-27] MEDS: LIDOCAINE 5% PATCH 1 PATCH TRANSDERM (17:15)
[2024-04-27] MEDS: MORPHINE SULFATE (*CRX) 4 MG/ML INJ IV PUSH ×3 (17:27→23:56)
[2024-04-27 17:58] LABS: Glucose Point of Care 108 mg/dl (65-105)
[2024-04-27] MEDS: LORazepam INJ (*CRX) 2 MG/ML VIAL 0.5 MG IV PUSH (20:36)
[2024-04-27] MEDS: FLUCONAZOLE 100 MG/NACL 50 ML 100 MG/50 ML BTL 50 MG IVPB (20:38)
[2024-04-28] VITALS (26 sets, daily range): BP systolic 149–186; BP diastolic 57–67; PULSE 66–88; RESP 20; TEMP 36.2–36.9; O2SAT 96–100
[2024-04-28] MEDS: IPRATROPIUM BR 0.02% INH SOLN 0.5 MG/2.5 ML VIAL INHALATION ×4 (01:41→20:35)
[2024-04-28] MEDS: LEVALBUTEROL NEB 1.25 MG/3 ML 0.63 MG INHALATION ×4 (01:41→20:35)
[2024-04-28] MEDS: MORPHINE SULFATE (*CRX) 4 MG/ML INJ IV PUSH ×6 (04:12→23:42)
[2024-04-28] MEDS: CENTRAL LINE FLUSH 10 ML IV PUSH ×3 (05:19→20:05)
[2024-04-28] MEDS: PIPERACILLIN/TAZ 2.25G/NS 50ML 2.25 GM/50 ML BAG IVPB (05:20)
[2024-04-28 05:35] LABS: Hematocrit 37.3 % (42.0-52.0); Mean Corpuscular HGB Conc 32.2 g/dl (32-36); Mean Corpuscular Hemoglobin 29.3 pg (26-34); Mean Platelet Volume 12.6 fl (7.4-10.4); Platelet Count Result 156 k/mm3 (150-375); Red Cell Distribution Width 14.4 % (11.5-14.5); White Blood Count 11.5 K/mm3 (4.5-10.0)
[2024-04-28 06:01] LABS: Alanine Aminotransferase 24 U/L (6-50); Albumin Level 3.2 g/dL (3.5-5.1); Alkaline Phosphatase 136 U/L (38-126); Anion Gap 9 mmol/L (4-12); Aspartate Amino Transferase 29 U/L (17-59); Bilirubin,Total 2.6 mg/dL (0.2-1.3); Blood Urea Nitrogen 61 mg/dL (9-20); Calcium 8.6 mg/dL (8.4-10.2); Carbon Dioxide 29 mmol/L (22-30); Chloride 112 mmol/L (98-107); Estimated CRCL calculation 44 ml/min; Estimated Glomerular Filt Rate 39; Glucose 132 mg/dL (65-110); Phosphorus 2.7 mg/dL (2.5-4.5); Potassium 3.3 mmol/L (3.4-5.0); Sodium 150 mmol/L (137-145); Triglycerides 207 mg/dL (<150)
[2024-04-28 06:24] LABS: Total Cells Counted 100
[2024-04-28 06:25] LABS: Band Neutrophils Percent 5 % (0-6); Eosinophils Absolute Manual 0.57 K/mm3 (0.02-0.50); Eosinophils Percent Manual 5 % (0-4); Lymphocytes Absolute Manual 1.03 K/mm3 (1.1-4.5); Lymphocytes Percent Manual 9 % (18-44); Monocytes Absolute Manual 0.46 K/mm3 (0.1-0.90); Monocytes Percent Manual 4 % (3-9); Neutrophils Absolute Manual 9.43 K/mm3 (1.3-6.7); Neutrophils Percent Manual 77 % (46-73); Platelet Estimate Adequate (Adequate); Schistocytes None Seen
[2024-04-28] MEDS: hydrALAZINE HCL 20 MG/ML VIAL 10 MG IV PUSH (08:46)
[2024-04-28] MEDS: PANTOPRAZOLE SODIUM IV 40 MG VIAL IV PUSH ×2 (08:46→20:04)
[2024-04-28] MEDS: LIDOCAINE 5% PATCH 1 PATCH TRANSDERM (08:48)
[2024-04-28] MEDS: ENOXAPARIN 30 MG/0.3 ML SYRINGE SUB-Q (08:48)
--- NOTE | 2024-04-28 10:06 | P.PNIM_ITS ---
Progress Note: A&P Assessment and Plan (1) HTN (hypertension): Code(s): I10 - Essential (primary) hypertension Status: Acute (2) Acute kidney injury superimposed on stage 3b chronic kidney disease: Code(s): N17.9 - Acute kidney failure, unspecified; N18.32 - Chronic kidney disease, stage 3b Status: Acute (3) Hypertensive urgency: Code(s): I16.0 - Hypertensive urgency Status: Acute Plan Acute respiratory failure: Code(s): J96.00 - Acute respiratory failure, unspecified whether with hypoxia or hypercapnia Status: Acute Assessment and Plan: 04/22: Remains intubated post surgery/anesthesia currently on ASV mode of ventilation 100% minute ventilation, peep of 5, 45% FiO2 continue bronchodilators Patient was extubated on April 25, tolerated extubation Now patient is on 2 L oxygen, pulse ox about 96-99 had shortness or breath 30, patient has coarse breath sound, repeated chest x- ray. Provide Lasix 40 mg IV push once 04/28 Septic shock: Code(s): A41.9 - Sepsis, unspecified organism; R65.21 - Severe sepsis with septic shock Status: Acute Assessment and Plan: 04/22: Patient presented with abdominal pain, CT abdomen and pelvis revealed perforated gastric ulcer, free air in the abdomen. status post ex lap with open gastrostomy tube placement, repair of the large gastric ulcer with Clarence patch, ELSA drain -patient was hypotensive when he arrived to the ER, with systolic blood pressures in the 60s, was given 2.5 L IV fluids, started on the Levophed. Patient then went to the OR where he had the procedure, remained on Levophed, central line was inserted in the OR and patient was transferred to the ICU upon arrival to the ICU patient required addition of vasopressin along with Levophed Patient is off vasopressors now, no growth from better culture, moved to IMU Continue IV Zosyn and Fluconazole Sepsis resolved Acute kidney injury superimposed on stage 3b chronic kidney disease Code(s): N17.9 - Acute kidney failure, unspecified; N18.32 - Chronic kidney disease, stage 3b Status: Acute Assessment and Plan: Patient presented with acute on chronic kidney disease creatinine on admission was 4.40 (baseline creatinine is 1.2-1.4) Likely secondary to sepsis Creatinine is trending down slowly Management per carpenter helper Hypernatremia Sodium is trending up, sodium 150 today May restart D5 water, management per carpenter helper Uncontrolled hypertension Continue hydralazine 10 mg IV push p.r.n. with parameters Blood pressure 197/65, tachycardia. Provide labetalol 20 mg IV push once 04/27 Patient still has uncontrolled hypertension, provide labetalol 20 mg IV push once and continue hydralazine IV q.4 hours p.r.n. with parameters optimize pain management, CK levels slightly elevated no urine he is on of pills urine lytes showing prerenal picture Perforated gastric ulcer: Onset Date: 04/2024 Qualifiers: Gastric ulcer chronicity: acute Qualified Code(s): K25.1 - Acute gastric ulcer with perforation Code(s): K25.5 - Chronic or unspecified gastric ulcer with perforation Status: Inactive Assessment and Plan: 04/22: Patient presented with abdominal pain, CT abdomen and pelvis revealed perforated gastric ulcer, free air in the abdomen. status post ex lap with open gastrostomy tube placement, repair of the large gastric ulcer with Clarence patch, ELSA drain Patient on Protonix infusion Patient has not passed gas yet, will start Reglan IV 10 mg q.6 hours Further management treatment per general surgeon Acute hyperkalemia: Code(s): E87.5 - Hyperkalemia Status: Acute Assessment and Plan: RESOLVED -continue to monitor Subjective Date/time seen: 04/28/24 10:06 Interval history: I saw examined the patient in presents of patient's daughter today, patient is on TPN, had not passed gas yet, denied nausea vomiting. patient denied chest pain, has right shoulder pain. In are not known, patient had some shortness breath. Patient is afebrile blood pressure stable, no O2 desaturation on room air. Exam Narrative: General: Patient is awake but closes eyes, in no acute distress HEENT:? Pupils equal and reactive, sclerae is clear Neck:? Supple Respiratory:? Coarse breath sounds bilaterally, decreased at bases, adequate air entry, no wheezing Cardiac:? S1-S2 is normal, rate controlled Abdomen:? Soft, nondistended, tender to palpation, very hypoactive bowel sound Extremities:? Bilateral feet are warm, pulses are palpable, discoloration of the feet has resolved Neuro:? Patient is awake,, opens his eyes, follows simple commands in all extremities, able to answer questions. Oriented to his date of , he knew the name of the president. He did not know where he was or what year it was Skin:? Dry scaly skin - bilateral lower extremity Psych:? Unable to assess at this time Objective Data Vital Signs Vital Signs: Vital Signs - 24 hr 04/27/24 11:53 04/27/24 12:00 04/27/24 12:00 Temperature 97.9 F Pulse Rate 72 72 Respiratory Rate 22 H Blood Pressure 197/65 H Pulse Oximetry 99 99 Oxygen Delivery Nasal Cannula Oxygen Flow Rate 2 Fraction of Inspired Oxygen 04/27/24 13:37 04/27/24 13:48 04/27/24 14:00 Temperature Pulse Rate 72 67 64 Respiratory Rate 20 Blood Pressure Pulse Oximetry Oxygen Delivery Oxygen Flow Rate Fraction of Inspired Oxygen 04/27/24 14:08 04/27/24 14:29 04/27/24 16:00 Temperature Pulse Rate 68 72 Respiratory Rate 20 Blood Pressure 178/74 H Pulse Oximetry Oxygen Delivery Oxygen Flow Rate Fraction of Inspired Oxygen 04/27/24 16:00 04/27/24 16:26 04/27/24 16:35 Temperature 97.7 F Pulse Rate 73 Respiratory Rate 18 Blood Pressure 185/65 H Pulse Oximetry 100 100 Oxygen Delivery Nasal Cannula Nasal Cannula Oxygen Flow Rate 2 2 Fraction of Inspired Oxygen 04/27/24 18:00 04/27/24 19:44 04/27/24 19:44 Temperature Pulse Rate 72 72 Respiratory Rate 20 Blood Pressure Pulse Oximetry 97 Oxygen Delivery Nasal Cannula Oxygen Flow Rate 2 Fraction of Inspired Oxygen 28 04/27/24 19:53 04/27/24 20:00 04/27/24 20:00 Temperature Pulse Rate 69 71 75 Respiratory Rate 20 20 Blood Pressure Pulse Oximetry 96 Oxygen Delivery Nasal Cannula Oxygen Flow Rate 2 Fraction of Inspired Oxygen 04/27/24 20:04 04/27/24 22:00 04/27/24 23:27 Temperature 97.6 F 97.8 F Pulse Rate 71 73 69 Respiratory Rate 20 20 Blood Pressure 163/53 H 159/56 H Pulse Oximetry 96 97 Oxygen Delivery Oxygen Flow Rate Fraction of Inspired Oxygen 04/28/24 00:00 04/28/24 00:00 04/28/24 01:41 Temperature Pulse Rate 74 74 73 Respiratory Rate 20 20 Blood Pressure Pulse Oximetry 97 Oxygen Delivery Nasal Cannula Oxygen Flow Rate 2 Fraction of Inspired Oxygen 04/28/24 01:53 04/28/24 02:00 04/28/24 03:50 Temperature Pulse Rate 72 72 73 Respiratory Rate 20 20 Blood Pressure Pulse Oximetry 97 Oxygen Delivery Nasal Cannula Oxygen Flow Rate 2 Fraction of Inspired Oxygen 04/28/24 03:50 04/28/24 04:00 04/28/24 06:00 Temperature 97.7 F Pulse Rate 76 75 71 Respiratory Rate 20 Blood Pressure 156/57 H Pulse Oximetry 98 Oxygen Delivery Oxygen Flow Rate Fraction of Inspired Oxygen 04/28/24 08:00 04/28/24 08:08 04/28/24 08:08 Temperature 97.6 F Pulse Rate 73 70 Respiratory Rate 20 20 Blood Pressure 186/67 H Pulse Oximetry 100 96 Oxygen Delivery Nasal Cannula Oxygen Flow Rate 2 Fraction of Inspired Oxygen 04/28/24 08:25 Temperature Pulse Rate 73 Respiratory Rate 20 Blood Pressure Pulse Oximetry Oxygen Delivery Oxygen Flow Rate Fraction of Inspired Oxygen Intake/Output Intake/Output: Intake & Output 04/25/24 04/26/24 04/27/24 04/28/24 23:59 23:59 23:59 23:59 Intake Total 1650 3188.2 1745 100 Output Total 2505 [address] [facility] -855 -1061.8 -5531 -1250 Meds/Results Medications: Active Medications Generic Name Dose Route Start Last Admin Trade Name Freq PRN Reason Stop Dose Admin Acetaminophen 650 mg 04/26/24 22:19 04/26/24 22:57 Acetaminophen 650 Mg Suppository RECTAL 650 mg Q6H PRN Administration Mild Pain (1-3) or Fever Artificial Tears 1 drop 04/27/24 08:37 Artificial Tears Ophth Soln 15 Ml Bottle EACH EYE QID PRN Dry Eye(s) Dextrose 12.5 gm 04/22/24 23:06 Dextrose 50% 25 Gm/50 Ml Syringe IV PUSH PRN PRN Hypoglycemia Protocol Enoxaparin Sodium 30 mg 04/23/24 09:00 04/28/24 08:48 Enoxaparin 30 Mg/0.3 Ml Syringe SUB-Q 30 mg DAILY ROSY Administration Glucagon 1 mg 04/22/24 23:06 Glucagon For Inj 1 Mg Vial IM PRN PRN Hypoglycemia Protocol Glucose 15 gm 04/22/24 23:06 Glucose Oral Gel 15 Gm Of Glucse In 37.5 Gm Tube PO PRN PRN Hypoglycemia Protocol Hydralazine HCl 10 mg 04/25/24 08:00 04/28/24 08:46 Hydralazine Hcl 20 Mg/Ml Vial IV PUSH 10 mg Q4H PRN Administration Blood Pressure - High Fluconazole/Dextrose 100 mg in 50 mls @ 50 mls/hr 04/22/24 22:00 04/27/24 21:38 Diflucan 100 Mg/Nacl 50 Ml IVPB Infused Q24H ROSY Infusion Dextrose 1,000 mls @ 100 mls/hr 04/22/24 23:06 Dextrose 5% 1,000 Ml IVPB PRN PRN Hypoglycemia Protocol Dextrose 1,000 mls @ 50 mls/hr 04/25/24 10:46 Dextrose 10% IV CONT .Q20H PRN if PN is interrupted Multivitamins 2.5 ml/ 2,005 mls @ 50 mls/hr 04/25/24 12:00 04/27/24 11:44 Multivitamins 2.5 ml/ Amino IV CONT 50 mls/hr Acids/Dextrose .Q24H ROSY Administration Protocol Fat Emulsion Intravenous 250 mls @ 20.833 mls/hr 04/25/24 12:00 04/27/24 23:45 Lipids 20% IVPB Infused Q24H ROSY Infusion Potassium Chloride/Dextrose 1,000 mls @ 125 mls/hr 04/28/24 10:00 Kcl 20 Meq/D5w 1,000 Ml IV CONT .Q8H ROSY Piperacillin/Tazobactam/Dextrose 3.375 gm in 50 mls @ 100 mls/hr 04/28/24 12:00 Zosyn 3.375 Gm/Ns 50 Ml IVPB Q6HR ROSY Ipratropium [place] 0.5 mg 04/23/24 14:00 04/28/24 08:07 Ipratropium Br 0.02% Inh Soln 0.5 Mg/2.5 Ml Vial INHALATION 0.5 mg Q6HRT ROSY Administration Levalbuterol HCl 0.63 mg 04/23/24 14:00 04/28/24 08:07 Levalbuterol Neb 1.25 Mg/3 Ml INHALATION 0.63 mg Q6HRT ROSY Administration Lidocaine 1 patch 04/27/24 16:35 04/28/24 08:48 Lidocaine 5% Patch TRANSDERM 1 patch DAILY ROSY Administration Lorazepam 0.5 mg 04/27/24 19:01 04/27/24 20:36 Lorazepam Inj (*Crx) 2 Mg/Ml Vial IV PUSH 0.5 mg HS PRN Administration Sleep Miscellaneous Information 1 each 04/28/24 00:01 Tpn Needs To Be Renewed Or It Will Automatically Discontinue. XX 05/28/24 00:00 CLARIFY ROSY Morphine Sulfate 4 mg 04/22/24 22:02 04/28/24 07:59 Morphine Sulfate (*Crx) 4 Mg/Ml Inj IV PUSH 4 mg Q3H PRN Administration Pain Rated 7-10 Pantoprazole Sodium 40 mg 04/26/24 21:00 04/28/24 08:46 Pantoprazole Sodium Iv 40 Mg Vial IV PUSH 40 mg Q12HR ROSY Administration Sodium Chloride 10 ml 04/23/24 14:00 04/28/24 05:19 Central Line Flush IV PUSH 10 ml Q8HR ROSY Administration Sodium Chloride 20 ml 04/23/24 10:16 Central Line Flush IV PUSH PRN PRN after blood draws Radiology Results: ITS Impressions Chest/Abdomen/Pelvis CTA 04/22/24 18:10 IMPRESSION: Perforated viscus with a large amount of free air and fluid, with mural thickening in the distal stomach and multiple punctate foci of extraluminal air in this area for which site of perforation is suspected. Renal Ultrasound 04/24/24 11:58 IMPRESSION: Simple cyst in the left kidney upper pole. Other appearances are unremarkable. Chest X-Ray 04/26/24 06:18 Impression: Mild pulmonary edema pattern and bibasilar atelectasis with small bilateral pleural effusions, left greater than right. Right IJ line. Labs Labs: Laboratory Results - last 24 hr 04/27/24 04/27/24 04/28/24 12:01 17:55 05:19 WBC 11.5 H RBC 4.10 L Hgb 12.0 L Hct 37.3 L MCV 91.0 MCH 29.3 MCHC 32.2 RDW 14.4 Plt Count 156 MPV 12.6 H Immature Gran % (Auto) Not Reportable Neut % (Auto) Not Reportable Lymph % (Auto) Not Reportable [place] % (Auto) Not Reportable Eos % (Auto) Not Reportable Baso % (Auto) Not Reportable Lymph # (Auto) Not Reportable [place] # (Auto) Not Reportable Eos # (Auto) Not Reportable Baso # (Auto) Not Reportable Abs Immat Gran (auto) Not Reportable Absolute Neuts (auto) Not Reportable Absolute Nucleated RBC Not Reportable Total Counted 100 Neutrophils % (Manual) 77 H Band Neutrophils % 5 Lymphocytes % (Manual) 9 L Monocytes % (Manual) 4 Eosinophils % (Manual) 5 H Nucleated RBC % Not Reportable Abs Neuts (Manual) 9.43 H Abs Lymphs (Manual) 1.03 L Abs Monocytes (Manual) 0.46 Absolute Eos (Manual) 0.57 H Platelet Estimate Adequate Schistocytes None seen Sodium 150 H Potassium 3.3 L Chloride 112 H Carbon Dioxide 29 Anion Gap 9 BUN 61 H D Creatinine 1.71 H Estim Creat Clear Calc 44 Estimated GFR 39 L Glucose 132 H POC Capillary Glucose 118 H 108 H Calcium 8.6 Phosphorus 2.7 Magnesium 2.0 Total Bilirubin 2.6 H AST 29 ALT 24 Alkaline Phosphatase 136 H Total Protein 6.0 L Albumin 3.2 L Triglycerides 207 H
[2024-04-28] MEDS: LABETALOL HCL INJ 100 MG/20 ML VIAL 20 MG IV PUSH (10:32)
[2024-04-28] MEDS: KCL 20 MEQ/D5W 1,000 ML 1,000 ML 125 ML IV CONT ×2 (10:42→18:12)
--- NOTE | 2024-04-28 11:49 | PM.PNGS ---
Progress Note: A&P Assessment and Plan (1) Perforated gastric ulcer: Onset Date: 04/2024 Qualifiers: Gastric ulcer chronicity: acute Qualified Code(s): K25.1 - Acute gastric ulcer with perforation Code(s): K25.5 - Chronic or unspecified gastric ulcer with perforation Status: Inactive Assessment and Plan: Postop day 6 status post laparotomy with repair of large perforated gastric ulcer with omental Clarence patch. ELSA drains x [address] with serous output, continue to monitor for now. Gastrostomy tube in place decompressing the stomach since we were not able to get a nasogastric tube in place. Will order a water-soluble upper GI study through the Gastrostomy tube to evaluate for gastric leak. Will keep NPO for now and continue TPN to 50 mL/hr. Continue IV Zosyn and Fluconazole, continue Protonix IV Q12H. Continue PT/OT to continue working with the patient on strength and increasing activity. (2) Acute kidney injury superimposed on stage 3b chronic kidney disease: Code(s): N17.9 - Acute kidney failure, unspecified; N18.32 - Chronic kidney disease, stage 3b Status: Acute Assessment and Plan: Improving. Creatinine coming down. Nephrology following. (3) Septic shock: Code(s): A41.9 - Sepsis, unspecified organism; R65.21 - Severe sepsis with septic shock Status: Acute Assessment and Plan: Resolved. Continue broad-spectrum IV antibiotics as ordered. (4) Acute respiratory failure: Code(s): J96.00 - Acute respiratory failure, unspecified whether with hypoxia or hypercapnia Status: Acute Assessment and Plan: Resolved. Plan I have discussed the patient's case and plan of care with Dr. Moreno. Subjective Subjective Date/Time Seen: 04/28/24 11:49 Post Op day: 6 (Exploratory laparotomy with repair of antral gastric ulcer with omental Clarence patch, Placement of open gastrostomy tube) Patient reports: no new complaints, feels better, no flatus, no bowel movement and afebrile Interval history: Patient reports having generalized abdominal pain, but feels it is improving. No nausea. He is currently on TPN. gastrostomy tube to gravity with 100 cc out overnight. He was able to get up to the chair yesterday, but had some dizziness and returned to bed. Exam Const: General: comfortable and no acute distress Orientation/consciousness: patient oriented x3 GI: Inspection: distended and incision (dry and tono intact, no erythema) GI Palp: Yes Soft to palpation, Yes Tenderness to palpation present (GI) (mostly at midline incision and across the upper abdomen), No Guarding due to palpation present (GI) and No Rebound tenderness present Auscultation: absent bowel sounds Other: G tube to gravity with minimal amount of gastric bilious appearing output in odom bag. Skin around the gastrostomy site is clean and dry. ELSA drain x 2 with serous drainage Urinary Catheter: Urinary Catheter: patent and draining ( Dark yellow) Extrem: General: no calf tenderness and no edema Objective Data Vital Signs Vital Signs: Vital Signs - 24 hr 04/27/24 11:53 04/27/24 12:00 04/27/24 12:00 Temperature 97.9 F Pulse Rate 72 72 Respiratory Rate 22 H Blood Pressure 197/65 H Pulse Oximetry 99 99 Oxygen Delivery Nasal Cannula Oxygen Flow Rate 2 Fraction of Inspired Oxygen 04/27/24 13:37 04/27/24 13:48 04/27/24 14:00 Temperature Pulse Rate 72 67 64 Respiratory Rate 20 Blood Pressure Pulse Oximetry Oxygen Delivery Oxygen Flow Rate Fraction of Inspired Oxygen 04/27/24 14:08 04/27/24 14:29 04/27/24 16:00 Temperature Pulse Rate 68 72 Respiratory Rate 20 Blood Pressure 178/74 H Pulse Oximetry Oxygen Delivery Oxygen Flow Rate Fraction of Inspired Oxygen 04/27/24 16:00 04/27/24 16:26 04/27/24 16:35 Temperature 97.7 F Pulse Rate 73 Respiratory Rate 18 Blood Pressure 185/65 H Pulse Oximetry 100 100 Oxygen Delivery Nasal Cannula Nasal Cannula Oxygen Flow Rate 2 2 Fraction of Inspired Oxygen 04/27/24 18:00 04/27/24 19:44 04/27/24 19:44 Temperature Pulse Rate 72 72 Respiratory Rate 20 Blood Pressure Pulse Oximetry 97 Oxygen Delivery Nasal Cannula Oxygen Flow Rate 2 Fraction of Inspired Oxygen 28 04/27/24 19:53 04/27/24 20:00 04/27/24 20:00 Temperature Pulse Rate 69 71 75 Respiratory Rate 20 20 Blood Pressure Pulse Oximetry 96 Oxygen Delivery Nasal Cannula Oxygen Flow Rate 2 Fraction of Inspired Oxygen 04/27/24 20:04 04/27/24 22:00 04/27/24 23:27 Temperature 97.6 F 97.8 F Pulse Rate 71 73 69 Respiratory Rate 20 20 Blood Pressure 163/53 H 159/56 H Pulse Oximetry 96 97 Oxygen Delivery Oxygen Flow Rate Fraction of Inspired Oxygen 04/28/24 00:00 04/28/24 00:00 04/28/24 01:41 Temperature Pulse Rate 74 74 73 Respiratory Rate 20 20 Blood Pressure Pulse Oximetry 97 Oxygen Delivery Nasal Cannula Oxygen Flow Rate 2 Fraction of Inspired Oxygen 04/28/24 01:53 04/28/24 02:00 04/28/24 03:50 Temperature Pulse Rate 72 72 73 Respiratory Rate 20 20 Blood Pressure Pulse Oximetry 97 Oxygen Delivery Nasal Cannula Oxygen Flow Rate 2 Fraction of Inspired Oxygen 04/28/24 03:50 04/28/24 04:00 04/28/24 06:00 Temperature 97.7 F Pulse Rate 76 75 71 Respiratory Rate 20 Blood Pressure 156/57 H Pulse Oximetry 98 Oxygen Delivery Oxygen Flow Rate Fraction of Inspired Oxygen 04/28/24 08:00 04/28/24 08:08 04/28/24 08:08 Temperature 97.6 F Pulse Rate 73 70 Respiratory Rate 20 20 Blood Pressure 186/67 H Pulse Oximetry 100 96 Oxygen Delivery Nasal Cannula Oxygen Flow Rate 2 Fraction of Inspired Oxygen 04/28/24 08:25 04/28/24 10:32 Temperature Pulse Rate 73 73 Respiratory Rate 20 Blood Pressure Pulse Oximetry Oxygen Delivery Oxygen Flow Rate Fraction of Inspired Oxygen Intake/Output Intake/Output: Intake & Output 04/25/24 04/26/24 04/27/24 04/28/24 23:59 23:59 23:59 23:59 Intake Total 1650 3188.2 1745 100 Output Total 2505 4250 3500 1350 [facility]855 -1061.8 -1755 -1250 Meds/Results Medications: Active Medications Generic Name Dose Route Start Last Admin Trade Name Freq PRN Reason Stop Dose Admin Acetaminophen 650 mg 04/26/24 22:19 04/26/24 22:57 Acetaminophen 650 Mg Suppository RECTAL 650 mg Q6H PRN Administration Mild Pain (1-3) or Fever Artificial Tears 1 drop 04/27/24 08:37 Artificial Tears Ophth Soln 15 Ml Bottle EACH EYE QID PRN Dry Eye(s) Dextrose 12.5 gm 04/22/24 23:06 Dextrose 50% 25 Gm/50 Ml Syringe IV PUSH PRN PRN Hypoglycemia Protocol Enoxaparin Sodium 40 mg 04/29/24 09:00 Enoxaparin 40 Mg/0.4 Ml Syringe SUB-Q DAILY ROSY Glucagon 1 mg 04/22/24 23:06 Glucagon For Inj 1 Mg Vial IM PRN PRN Hypoglycemia Protocol Glucose 15 gm 04/22/24 23:06 Glucose Oral Gel 15 Gm Of Glucse In 37.5 Gm Tube PO PRN PRN Hypoglycemia Protocol Hydralazine HCl 10 mg 04/25/24 08:00 04/28/24 08:46 Hydralazine Hcl 20 Mg/Ml Vial IV PUSH 10 mg Q4H PRN Administration Blood Pressure - High Fluconazole/Dextrose 100 mg in 50 mls @ 50 mls/hr 04/22/24 22:00 04/27/24 21:38 Diflucan 100 Mg/Nacl 50 Ml IVPB Infused Q24H ROSY Infusion Dextrose 1,000 mls @ 100 mls/hr 04/22/24 23:06 Dextrose 5% 1,000 Ml IVPB PRN PRN Hypoglycemia Protocol Dextrose 1,000 mls @ 50 mls/hr 04/25/24 10:46 Dextrose 10% IV CONT .Q20H PRN if PN is interrupted Multivitamins 2.5 ml/ 2,005 mls @ 50 mls/hr 04/25/24 12:00 04/27/24 11:44 Multivitamins 2.5 ml/ Amino IV CONT 50 mls/hr Acids/Dextrose .Q24H ROSY Administration Protocol Fat Emulsion Intravenous 250 mls @ 20.833 mls/hr 04/25/24 12:00 04/27/24 23:45 Lipids 20% IVPB Infused Q24H ROSY Infusion Potassium Chloride/Dextrose 1,000 mls @ 125 mls/hr 04/28/24 10:00 04/28/24 10:42 Kcl 20 Meq/D5w 1,000 Ml IV CONT 125 mls/hr .Q8H ROSY Administration Piperacillin/Tazobactam/Dextrose 3.375 gm in 50 mls @ 100 mls/hr 04/28/24 12:00 Zosyn 3.375 Gm/Ns 50 Ml IVPB Q6HR ROSY Ipratropium [place] 0.5 mg 04/23/24 14:00 04/28/24 08:07 Ipratropium Br 0.02% Inh Soln 0.5 Mg/2.5 Ml Vial INHALATION 0.5 mg Q6HRT ROSY Administration Levalbuterol HCl 0.63 mg 04/23/24 14:00 04/28/24 08:07 Levalbuterol Neb 1.25 Mg/3 Ml INHALATION 0.63 mg Q6HRT ROSY Administration Lidocaine 1 patch 04/27/24 16:35 04/28/24 08:48 Lidocaine 5% Patch TRANSDERM 1 patch DAILY ROSY Administration Lorazepam 0.5 mg 04/27/24 19:01 04/27/24 20:36 Lorazepam Inj (*Crx) 2 Mg/Ml Vial IV PUSH 0.5 mg HS PRN Administration Sleep Metoclopramide HCl 10 mg 04/28/24 12:00 Metoclopramide Hcl Inj 10 Mg/2 Ml Vial IV PUSH Q6HR [facility] Miscellaneous Information 1 each 04/28/24 00:01 Tpn Needs To Be Renewed Or It Will Automatically Discontinue. XX 05/28/24 00:00 CLARIFY ROSY Morphine Sulfate 4 mg 04/22/24 22:02 04/28/24 07:59 Morphine Sulfate (*Crx) 4 Mg/Ml Inj IV PUSH 4 mg Q3H PRN Administration Pain Rated 7-10 Pantoprazole Sodium 40 mg 04/26/24 21:00 04/28/24 08:46 Pantoprazole Sodium Iv 40 Mg Vial IV PUSH 40 mg Q12HR ROSY Administration Sodium Chloride 10 ml 04/23/24 14:00 04/28/24 05:19 Central Line Flush IV PUSH 10 ml Q8HR ROSY Administration Sodium Chloride 20 ml 04/23/24 10:16 Central Line Flush IV PUSH PRN PRN after blood draws Radiology Results: ITS Impressions Chest/Abdomen/Pelvis CTA 04/22/24 18:10 IMPRESSION: Perforated viscus with a large amount of free air and fluid, with mural thickening in the distal stomach and multiple punctate foci of extraluminal air in this area for which site of perforation is suspected. Renal Ultrasound 04/24/24 11:58 IMPRESSION: Simple cyst in the left kidney upper pole. Other appearances are unremarkable. Chest X-Ray 04/26/24 06:18 Impression: Mild pulmonary edema pattern and bibasilar atelectasis with small bilateral pleural effusions, left greater than right. Right IJ line. Labs Labs: Laboratory Results - last 24 hr 04/27/24 04/27/24 04/28/24 12:01 17:55 05:19 WBC 11.5 H RBC 4.10 L Hgb 12.0 L Hct 37.3 L MCV 91.0 MCH 29.3 MCHC 32.2 RDW 14.4 Plt Count 156 MPV 12.6 H Immature Gran % (Auto) Not Reportable Neut % (Auto) Not Reportable Lymph % (Auto) Not Reportable [place] % (Auto) Not Reportable Eos % (Auto) Not Reportable Baso % (Auto) Not Reportable Lymph # (Auto) Not Reportable [place] # (Auto) Not Reportable Eos # (Auto) Not Reportable Baso # (Auto) Not Reportable Abs Immat Gran (auto) Not Reportable Absolute Neuts (auto) Not Reportable Absolute Nucleated RBC Not Reportable Total Counted 100 Neutrophils % (Manual) 77 H Band Neutrophils % 5 Lymphocytes % (Manual) 9 L Monocytes % (Manual) 4 Eosinophils % (Manual) 5 H Nucleated RBC % Not Reportable Abs Neuts (Manual) 9.43 H Abs Lymphs (Manual) 1.03 L Abs Monocytes (Manual) 0.46 Absolute Eos (Manual) 0.57 H Platelet Estimate Adequate Schistocytes None seen Sodium 150 H Potassium 3.3 L Chloride 112 H Carbon Dioxide 29 Anion Gap 9 BUN 61 H D Creatinine 1.71 H Estim Creat Clear Calc 44 Estimated GFR 39 L Glucose 132 H POC Capillary Glucose 118 H 108 H Calcium 8.6 Phosphorus 2.7 Magnesium 2.0 Total Bilirubin 2.6 H AST 29 ALT 24 Alkaline Phosphatase 136 H Total Protein 6.0 L Albumin 3.2 L Triglycerides 207 H
[2024-04-28] MEDS: AMINO ACIDS 5%/DEXTROSE 15% 2,000 ML with MULTIVITAMINS-12 INJ VIAL 1 2.5 ML, MULTIVITA... 50 ML IV CONT (11:53)
[2024-04-28] MEDS: FAT EMULSIONS IV 20% 250 ML 20.83 ML IVPB (11:55)
--- NOTE | 2024-04-28 12:02 | PCOTNOTE ---
RN, in with Patient, Patient not available at this time. Will try back at a later time.
[2024-04-28 12:10] LABS: Glucose Point of Care 128 mg/dl (65-105)
[2024-04-28] MEDS: METOCLOPRAMIDE HCL INJ 10 MG/2 ML VIAL IV PUSH ×3 (12:12→23:42)
[2024-04-28] MEDS: PIPERACILLN/TAZ 3.375GM/NS50ML 3.375 GM/50 ML BAG IVPB ×3 (12:12→23:43)
[2024-04-28 12:20] LABS: Chloride Rand Ur <20 mmol/L (32-290); Creatinine Random Urine 127 mg/dL (20-320)
--- NOTE | 2024-04-28 13:04 | PCOTNOTE ---
Per RN, Patient having increased shortness of breath, ordering a stat chest x-ray, not available at this time
[2024-04-28] MEDS: FUROSEMIDE INJ 40 MG/4 ML VIAL IV PUSH (13:24)
--- NOTE | 2024-04-28 13:45 | P.PNNP_ITS ---
Progress Note: A&P Assessment and Plan (1) Acute kidney injury superimposed on stage 3b chronic kidney disease: Code(s): N17.9 - Acute kidney failure, unspecified; N18.32 - Chronic kidney disease, stage 3b Status: Acute Assessment and Plan: the patient has Chronic kidney disease. His baseline creatinine is around 1.5. This is probably related to hypertension, peripheral vascular disease, and possibly chronic nonsteroidal anti-inflammatory agent use. we can evaluate this further when he recovers, possibly in the office if he needs follow-up. The patient has acute kidney injury. CT shows normal kidneys Renal sono simple cyst x 1 o/w unremarkable. Urine 'lytes are prerenal there are multiple contributing factors. diclofenac hypotension septic shock third spacing His urine output is doing well. He received Bumex 3 days ago. But none since. The creatinine is improved to 1.71 sodium level is stiull high. will give D5W with 20KCL per liter at 125/hr and repeat in 8 hours. (2) Perforated gastric ulcer: Onset Date: 04/2024 Qualifiers: Gastric ulcer chronicity: acute Qualified Code(s): K25.1 - Acute gastric ulcer with perforation Code(s): K25.5 - Chronic or unspecified gastric ulcer with perforation Status: Inactive Assessment and Plan: He had a perforated gastric ulcer, likely related to nonsteroidal anti- inflammatory agents. This was repaired in the OR and he is recovering from this. (3) Acute respiratory failure: Code(s): J96.00 - Acute respiratory failure, unspecified whether with hypoxia or hypercapnia Status: Acute Assessment and Plan: the patient is breathing on his own. (4) Shock circulatory: Code(s): R57.9 - Shock, unspecified Status: Acute Assessment and Plan: Blood pressure doing well (5) Anemia: Code(s): D64.9 - Anemia, unspecified Status: Acute Assessment and Plan: hemoglobin 10.5.upn to 12. probably due to hemoconcentration (6) Acute hyperkalemia: Code(s): E87.5 - Hyperkalemia Status: Acute Assessment and Plan: His potassium is fine today. (7) HTN (hypertension): Code(s): I10 - Essential (primary) hypertension Status: Acute Assessment and Plan: Blood pressure meds are on hold (8) Hypercholesterolemia: Code(s): E78.00 - Pure hypercholesterolemia, unspecified Status: Acute Assessment and Plan: atorvastatin is on hold Subjective Date/time seen: 04/28/24 13:45 Interval history: in room. patient is feeling sob. says he was sob when she got here at 11zm. Nurse came in. I asked her to get an O2 sat and let hospitalist know about the sob. Exam Narrative: WDWN male resting comfortably in bed in NAD Neuro alert and interactive skin no rash or subcu nodules head ncat lungs fairly clear and symmetric cor reg no rub abd BS very hypoactive if any ext 1+ bilateral presacral edema. Objective Data Vital Signs Vital Signs: Vital Signs - 24 hr 04/27/24 13:48 04/27/24 14:00 04/27/24 14:08 Temperature Pulse Rate 67 64 68 Respiratory Rate 20 20 Blood Pressure Pulse Oximetry Oxygen Delivery Oxygen Flow Rate Fraction of Inspired Oxygen 04/27/24 14:29 04/27/24 16:00 04/27/24 16:00 Temperature Pulse Rate 72 Respiratory Rate Blood Pressure 178/74 H Pulse Oximetry 100 Oxygen Delivery Nasal Cannula Oxygen Flow Rate 2 Fraction of Inspired Oxygen 04/27/24 16:26 04/27/24 16:35 04/27/24 18:00 Temperature 97.7 F Pulse Rate 73 72 Respiratory Rate 18 Blood Pressure 185/65 H Pulse Oximetry 100 Oxygen Delivery Nasal Cannula Oxygen Flow Rate 2 Fraction of Inspired Oxygen 04/27/24 19:44 04/27/24 19:44 04/27/24 19:53 Temperature Pulse Rate 72 69 Respiratory Rate 20 20 Blood Pressure Pulse Oximetry 97 Oxygen Delivery Nasal Cannula Oxygen Flow Rate 2 Fraction of Inspired Oxygen 28 04/27/24 20:00 04/27/24 20:00 04/27/24 20:04 Temperature 97.6 F Pulse Rate 71 75 71 Respiratory Rate 20 20 Blood Pressure 163/53 H Pulse Oximetry 96 96 Oxygen Delivery Nasal Cannula Oxygen Flow Rate 2 Fraction of Inspired Oxygen 04/27/24 22:00 04/27/24 23:27 04/28/24 00:00 Temperature 97.8 F Pulse Rate 73 69 74 Respiratory Rate 20 20 Blood Pressure 159/56 H Pulse Oximetry 97 97 Oxygen Delivery Nasal Cannula Oxygen Flow Rate 2 Fraction of Inspired Oxygen 04/28/24 00:00 04/28/24 01:41 04/28/24 01:53 Temperature Pulse Rate 74 73 72 Respiratory Rate 20 20 Blood Pressure Pulse Oximetry Oxygen Delivery Oxygen Flow Rate Fraction of Inspired Oxygen 04/28/24 02:00 04/28/24 03:50 04/28/24 03:50 Temperature 97.7 F Pulse Rate 72 73 76 Respiratory Rate 20 20 Blood Pressure 156/57 H Pulse Oximetry 97 98 Oxygen Delivery Nasal Cannula Oxygen Flow Rate 2 Fraction of Inspired Oxygen 04/28/24 04:00 04/28/24 06:00 04/28/24 08:00 Temperature 97.6 F Pulse Rate 75 71 73 Respiratory Rate 20 Blood Pressure 186/67 H Pulse Oximetry 100 Oxygen Delivery Oxygen Flow Rate Fraction of Inspired Oxygen 04/28/24 08:08 04/28/24 08:08 04/28/24 08:25 Temperature Pulse Rate 70 73 Respiratory Rate 20 20 Blood Pressure Pulse Oximetry 96 Oxygen Delivery Nasal Cannula Oxygen Flow Rate 2 Fraction of Inspired Oxygen 04/28/24 10:32 04/28/24 11:49 Temperature 97.1 F L Pulse Rate 73 68 Respiratory Rate 20 Blood Pressure 161/66 H Pulse Oximetry 99 Oxygen Delivery Oxygen Flow Rate Fraction of Inspired Oxygen Intake/Output Intake/Output: Intake & Output 04/25/24 04/26/24 04/27/24 04/28/24 23:59 23:59 23:59 23:59 Intake Total 1650 3188.2 1745 1307.5 Output Total 2505 4250 3500 1350 Balance -855 -1061.8 -1755 -42.5 Meds/Results Medications: Active Medications Generic Name Dose Route Start Last Admin Trade Name Freq PRN Reason Stop Dose Admin Acetaminophen 650 mg 04/26/24 22:19 04/26/24 22:57 Acetaminophen 650 Mg Suppository RECTAL 650 mg Q6H PRN Administration Mild Pain (1-3) or Fever Artificial Tears 1 drop 04/27/24 08:37 Artificial Tears Ophth Soln 15 Ml Bottle EACH EYE QID PRN Dry Eye(s) Dextrose 12.5 gm 04/22/24 23:06 Dextrose 50% 25 Gm/50 Ml Syringe IV PUSH PRN PRN Hypoglycemia Protocol Enoxaparin Sodium 40 mg 04/29/24 09:00 Enoxaparin 40 Mg/0.4 Ml Syringe SUB-Q DAILY ROSY Glucagon 1 mg 04/22/24 23:06 Glucagon For Inj 1 Mg Vial IM PRN PRN Hypoglycemia Protocol Glucose 15 gm 04/22/24 23:06 Glucose Oral Gel 15 Gm Of Glucse In 37.5 Gm Tube PO PRN PRN Hypoglycemia Protocol Hydralazine HCl 10 mg 04/25/24 08:00 04/28/24 08:46 Hydralazine Hcl 20 Mg/Ml Vial IV PUSH 10 mg Q4H PRN Administration Blood Pressure - High Fluconazole/Dextrose 100 mg in 50 mls @ 50 mls/hr 04/22/24 22:00 04/27/24 21:38 Diflucan 100 Mg/Nacl 50 Ml IVPB Infused Q24H ROSY Infusion Dextrose 1,000 mls @ 100 mls/hr 04/22/24 23:06 Dextrose 5% 1,000 Ml IVPB PRN PRN Hypoglycemia Protocol Dextrose 1,000 mls @ 50 mls/hr 04/25/24 10:46 Dextrose 10% IV CONT .Q20H PRN if PN is interrupted Multivitamins 2.5 ml/ 2,005 mls @ 50 mls/hr 04/25/24 12:00 04/28/24 11:53 Multivitamins 2.5 ml/ Amino IV CONT 50 mls/hr Acids/Dextrose .Q24H ROSY Administration Protocol Fat Emulsion Intravenous 250 mls @ 20.833 mls/hr 04/25/24 12:00 04/28/24 11:55 Lipids 20% IVPB 20.83 mls/hr Q24H ROSY Administration Potassium Chloride/Dextrose 1,000 mls @ 125 mls/hr 04/28/24 10:00 04/28/24 10:42 Kcl 20 Meq/D5w 1,000 Ml IV CONT 125 mls/hr .Q8H ROSY Administration Piperacillin/Tazobactam/Dextrose 3.375 gm in 50 mls @ 100 mls/hr 04/28/24 12:00 04/28/24 12:12 Zosyn 3.375 Gm/Ns 50 Ml IVPB 100 mls/hr Q6HR ROSY Administration Ipratropium [place] 0.5 mg 04/23/24 14:00 04/28/24 08:07 Ipratropium Br 0.02% Inh Soln 0.5 Mg/2.5 Ml Vial INHALATION 0.5 mg Q6HRT ROSY Administration Levalbuterol HCl 0.63 mg 04/23/24 14:00 04/28/24 08:07 Levalbuterol Neb 1.25 Mg/3 Ml INHALATION 0.63 mg Q6HRT ROSY Administration Lidocaine 1 patch 04/27/24 16:35 04/28/24 08:48 Lidocaine 5% Patch TRANSDERM 1 patch DAILY ROSY Administration Lorazepam 0.5 mg 04/27/24 19:01 04/27/24 20:36 Lorazepam Inj (*Crx) 2 Mg/Ml Vial IV PUSH 0.5 mg HS PRN Administration Sleep Metoclopramide HCl 10 mg 04/28/24 12:00 04/28/24 12:12 Metoclopramide Hcl Inj 10 Mg/2 Ml Vial IV PUSH 10 mg Q6HR ROSY Administration Miscellaneous Information 1 each 04/28/24 00:01 Tpn Needs To Be Renewed Or It Will Automatically Discontinue. XX 05/28/24 00:00 CLARIFY ROSY Morphine Sulfate 4 mg 04/22/24 22:02 04/28/24 12:20 Morphine Sulfate (*Crx) 4 Mg/Ml Inj IV PUSH 4 mg Q3H PRN Administration Pain Rated 7-10 Pantoprazole Sodium 40 mg 04/26/24 21:00 04/28/24 08:46 Pantoprazole Sodium Iv 40 Mg Vial IV PUSH 40 mg Q12HR ROSY Administration Sodium Chloride 10 ml 04/23/24 14:00 04/28/24 05:19 Central Line Flush IV PUSH 10 ml Q8HR ROSY Administration Sodium Chloride 20 ml 04/23/24 10:16 Central Line Flush IV PUSH PRN PRN after blood draws Radiology Results: ITS Impressions Chest/Abdomen/Pelvis CTA 04/22/24 18:10 IMPRESSION: Perforated viscus with a large amount of free air and fluid, with mural thickening in the distal stomach and multiple punctate foci of extraluminal air in this area for which site of perforation is suspected. Renal Ultrasound 04/24/24 11:58 IMPRESSION: Simple cyst in the left kidney upper pole. Other appearances are unremarkable. Labs Labs: Laboratory Results - last 24 hr 04/24/24 04/27/24 04/28/24 09:26 17:55 05:19 WBC 11.5 H RBC 4.10 L Hgb 12.0 L Hct 37.3 L MCV 91.0 MCH 29.3 MCHC 32.2 RDW 14.4 Plt Count 156 MPV 12.6 H Immature Gran % (Auto) Not Reportable Neut % (Auto) Not Reportable Lymph % (Auto) Not Reportable [place] % (Auto) Not Reportable Eos % (Auto) Not Reportable Baso % (Auto) Not Reportable Lymph # (Auto) Not Reportable [place] # (Auto) Not Reportable Eos # (Auto) Not Reportable Baso # (Auto) Not Reportable Abs Immat Gran (auto) Not Reportable Absolute Neuts (auto) Not Reportable Absolute Nucleated RBC Not Reportable Total Counted 100 Neutrophils % (Manual) 77 H Band Neutrophils % 5 Lymphocytes % (Manual) 9 L Monocytes % (Manual) 4 Eosinophils % (Manual) 5 H Nucleated RBC % Not Reportable Abs Neuts (Manual) 9.43 H Abs Lymphs (Manual) 1.03 L Abs Monocytes (Manual) 0.46 Absolute Eos (Manual) 0.57 H Platelet Estimate Adequate Schistocytes None seen Sodium 150 H Potassium 3.3 L Chloride 112 H Carbon Dioxide 29 Anion Gap 9 BUN 61 H D Creatinine 1.71 H Estim Creat Clear Calc 44 Estimated GFR 39 L Glucose 132 H POC Capillary Glucose 108 H Calcium 8.6 Phosphorus 2.7 Magnesium 2.0 Total Bilirubin 2.6 H AST 29 ALT 24 Alkaline Phosphatase 136 H Total Protein 6.0 L Albumin 3.2 L Triglycerides 207 H Ur Random Creatinine 127 Ur Random Chloride <20 L U Random Chloride/Creat See note 04/28/24 12:06 WBC RBC Hgb Hct MCV MCH MCHC RDW Plt Count MPV Immature Gran % (Auto) Neut % (Auto) Lymph % (Auto) [place] % (Auto) Eos % (Auto) Baso % (Auto) Lymph # (Auto) [place] # (Auto) Eos # (Auto) Baso # (Auto) Abs Immat Gran (auto) Absolute Neuts (auto) Absolute Nucleated RBC Total Counted Neutrophils % (Manual) Band Neutrophils % Lymphocytes % (Manual) Monocytes % (Manual) Eosinophils % (Manual) Nucleated RBC % Abs Neuts (Manual) Abs Lymphs (Manual) Abs Monocytes (Manual) Absolute Eos (Manual) Platelet Estimate Schistocytes Sodium Potassium Chloride Carbon Dioxide Anion Gap BUN Creatinine Estim Creat Clear Calc Estimated GFR Glucose POC Capillary Glucose 128 H Calcium Phosphorus Magnesium Total Bilirubin AST ALT Alkaline Phosphatase Total Protein Albumin Triglycerides Ur Random Creatinine Ur Random Chloride U Random Chloride/Creat
--- NOTE | 2024-04-28 14:17 | PCPTNOTE ---
Attempted to see patient for PT, however patient got very anxious during breathing treatment prior to PT and per MD to wait on therapy for tomorrow.
[2024-04-28 18:50] LABS: Anion Gap 9 mmol/L (4-12); Blood Urea Nitrogen 58 mg/dL (9-20); Calcium 8.8 mg/dL (8.4-10.2); Carbon Dioxide 28 mmol/L (22-30); Chloride 110 mmol/L (98-107); Estimated CRCL calculation 47 ml/min; Estimated Glomerular Filt Rate 42; Glucose 156 mg/dL (65-110); Potassium 3.3 mmol/L (3.4-5.0); Sodium 147 mmol/L (137-145)
[2024-04-28] MEDS: LORazepam INJ (*CRX) 2 MG/ML VIAL 0.5 MG IV PUSH (20:04)
[2024-04-28] MEDS: FLUCONAZOLE 100 MG/NACL 50 ML 100 MG/50 ML BTL 50 MG IVPB (20:05)
[2024-04-28 23:39] LABS: Glucose Point of Care 144 mg/dl (65-105)
[2024-04-29] VITALS (16 sets, daily range): BP systolic 133–184; BP diastolic 63–78; PULSE 75–86; RESP 14–20; TEMP 36.6–37.1; O2SAT 98–100; BMI 35.6
[2024-04-29] MEDS: LEVALBUTEROL NEB 1.25 MG/3 ML 0.63 MG INHALATION ×4 (02:15→19:39)
[2024-04-29] MEDS: IPRATROPIUM BR 0.02% INH SOLN 0.5 MG/2.5 ML VIAL INHALATION ×4 (02:15→19:39)
[2024-04-29] MEDS: MORPHINE SULFATE (*CRX) 4 MG/ML INJ IV PUSH ×3 (04:12→21:08)
[2024-04-29] MEDS: KCL 20 MEQ/D5W 1,000 ML 1,000 ML 75 ML IV CONT ×2 (05:28→15:45)
[2024-04-29] MEDS: METOCLOPRAMIDE HCL INJ 10 MG/2 ML VIAL IV PUSH ×4 (05:29→23:17)
[2024-04-29] MEDS: CENTRAL LINE FLUSH 10 ML IV PUSH ×3 (05:29→21:09)
[2024-04-29] MEDS: PIPERACILLN/TAZ 3.375GM/NS50ML 3.375 GM/50 ML BAG IVPB ×4 (05:29→23:17)
[2024-04-29 05:46] LABS: Anion Gap 9 mmol/L (4-12); Blood Urea Nitrogen 57 mg/dL (9-20); Calcium 8.7 mg/dL (8.4-10.2); Carbon Dioxide 27 mmol/L (22-30); Chloride 111 mmol/L (98-107); Estimated CRCL calculation 46 ml/min; Estimated CRCL calculation 47 ml/min; Estimated Glomerular Filt Rate 41; Estimated Glomerular Filt Rate 42; Glucose 148 mg/dL (65-110); Phosphorus 2.5 mg/dL (2.5-4.5); Potassium 3.2 mmol/L (3.4-5.0); Sodium 147 mmol/L (137-145)
--- NOTE | 2024-04-29 08:50 | P.PNIM_ITS ---
Progress Note: A&P Assessment and Plan (1) HTN (hypertension): Code(s): I10 - Essential (primary) hypertension Status: Acute (2) Acute kidney injury superimposed on stage 3b chronic kidney disease: Code(s): N17.9 - Acute kidney failure, unspecified; N18.32 - Chronic kidney disease, stage 3b Status: Acute (3) Hypertensive urgency: Code(s): I16.0 - Hypertensive urgency Status: Acute Plan Acute respiratory failure: Code(s): J96.00 - Acute respiratory failure, unspecified whether with hypoxia or hypercapnia Status: Acute Assessment and Plan: 04/22: Remains intubated post surgery/anesthesia currently on ASV mode of ventilation 100% minute ventilation, peep of 5, 45% FiO2 continue bronchodilators Patient was extubated on April 25, tolerated extubation Now patient is on 2 L oxygen, pulse ox about 96-99 had shortness or breath 30, patient has coarse breath sound, repeated chest x- ray:Bilateral basal atelectasis versus pneumonia with possible effusion. Underlying pulmonary edema is not excluded Provide Lasix 40 mg IV push once 04/28 now patient does not have rest distress, patient is on 2 L oxygen 04/29 Septic shock: Code(s): A41.9 - Sepsis, unspecified organism; R65.21 - Severe sepsis with septic shock Status: Acute Assessment and Plan: 04/22: Patient presented with abdominal pain, CT abdomen and pelvis revealed perforated gastric ulcer, free air in the abdomen. status post ex lap with open gastrostomy tube placement, repair of the large gastric ulcer with Clarence patch, ELSA drain -patient was hypotensive when he arrived to the ER, with systolic blood pressures in the 60s, was given 2.5 L IV fluids, started on the Levophed. Demetrius chun then went to the OR where he had the procedure, remained on Levophed, central line was inserted in the OR and patient was transferred to the ICU upon arrival to the ICU patient required addition of vasopressin along with Levophed Patient is off vasopressors now, no growth from better culture, moved to IMU Continue IV Zosyn and Fluconazole Sepsis resolved Acute kidney injury superimposed on stage 3b chronic kidney disease Code(s): N17.9 - Acute kidney failure, unspecified; N18.32 - Chronic kidney disease, stage 3b Status: Acute Assessment and Plan: Patient presented with acute on chronic kidney disease creatinine on admission was 4.40 (baseline creatinine is 1.2-1.4) Likely secondary to sepsis Creatinine is trending down slowly Management per clinical trial data manager Hypernatremia Sodium is trending up, Management per clinical trial data manager Uncontrolled hypertension Continue hydralazine 10 mg IV push p.r.n. with parameters Blood pressure 197/65, tachycardia. Provide labetalol 20 mg IV push once 04/27 Patient still has uncontrolled hypertension, provide labetalol 20 mg IV push once and continue hydralazine IV q.4 hours p.r.n. with parameters optimize pain management, now bp is controlled 133/65 CK levels slightly elevated no urine he is on of pills urine lytes showing prerenal picture Perforated gastric ulcer: Onset Date: 04/2024 Qualifiers: Gastric ulcer chronicity: acute Qualified Code(s): K25.1 - Acute gastric ulcer with perforation Code(s): K25.5 - Chronic or unspecified gastric ulcer with perforation Status: Inactive Assessment and Plan: 04/22: Patient presented with abdominal pain, CT abdomen and pelvis revealed perforated gastric ulcer, free air in the abdomen. status post ex lap with open gastrostomy tube placement, repair of the large gastric ulcer with Clarence patch, ELSA drain Patient on Protonix infusion Patient has not passed gas yet, will start Reglan IV 10 mg q.6 hours Further management treatment per general surgeon Acute hyperkalemia: Code(s): E87.5 - Hyperkalemia Status: Acute Assessment and Plan: RESOLVED -continue to monitor Subjective Date/time seen: 04/29/24 08:50 Interval history: I saw and examined the patient today, patient still on NG tube feeding, patient has not passed gas yet. Patient denies nausea vomiting. Abdomen pain is tolerable. Patient denies chest pain shortness of breath today Exam Narrative: GENERAL: Pleasant, in no acute distress. Well-nourished. - EYES: EOMI. Anicteric. - HENT: Moist mucous membranes. - LUNGS: Clear to auscultation bilateral ly, no wheezing, rhonchi, or rales. - CARDIOVASCULAR: Regular rate and rhyth m. No murmur. No JVD. - ABDOMEN: Soft, mild tender and non-dis tended. Hypoactive bowel sounds, surgical wound is dry and clean No palpable masses. Scant fluid drained out in ELSA - EXTREMITIES: No edema. Peripheral puls es 2+. Non-tender. - NEUROLOGIC: No focal neurological defi cits. CN II-XII grossly intact. - PSYCHIATRIC: Awake, Alert and oriented x 3. Appropriate mood and affect. - SKIN: No rashes or lesions. Warm. - LYMPH: No cervical lymphadenopathy. Objective Data Vital Signs Vital Signs: Vital Signs - 24 hr 04/28/24 10:00 04/28/24 10:32 04/28/24 11:49 Temperature 97.1 F L Pulse Rate 76 73 68 Respiratory Rate 20 Blood Pressure 161/66 H Pulse Oximetry 99 Oxygen Delivery Oxygen Flow Rate 04/28/24 12:00 04/28/24 12:00 04/28/24 13:52 Temperature Pulse Rate 66 88 Respiratory Rate 20 Blood Pressure Pulse Oximetry 100 Oxygen Delivery Nasal Cannula Oxygen Flow Rate 2 04/28/24 14:00 04/28/24 14:03 04/28/24 16:00 Temperature Pulse Rate 72 73 Respiratory Rate 20 Blood Pressure Pulse Oximetry 99 Oxygen Delivery Nasal Cannula Oxygen Flow Rate 2 04/28/24 16:00 04/28/24 16:00 04/28/24 18:00 Temperature 97.2 F L Pulse Rate 73 76 73 Respiratory Rate 20 Blood Pressure 149/60 H Pulse Oximetry 99 Oxygen Delivery Oxygen Flow Rate 04/28/24 19:49 04/28/24 19:55 04/28/24 20:00 Temperature 98.5 F Pulse Rate 75 75 76 Respiratory Rate 20 20 Blood Pressure 180/67 H Pulse Oximetry 100 100 Oxygen Delivery Nasal Cannula Oxygen Flow Rate 2 04/28/24 20:36 04/28/24 20:42 04/28/24 20:50 Temperature Pulse Rate 82 82 79 Respiratory Rate 20 20 Blood Pressure Pulse Oximetry 96 Oxygen Delivery Nasal Cannula Oxygen Flow Rate 2 04/28/24 23:42 04/29/24 00:00 04/29/24 02:15 Temperature Pulse Rate 84 85 75 Respiratory Rate 20 Blood Pressure Pulse Oximetry Oxygen Delivery Oxygen Flow Rate 04/29/24 02:25 04/29/24 04:00 04/29/24 08:00 Temperature 97.8 F Pulse Rate 76 82 76 Respiratory Rate 20 14 Blood Pressure 133/65 Pulse Oximetry 100 Oxygen Delivery Oxygen Flow Rate Intake/Output Intake/Output: Intake & Output 04/26/24 04/27/24 04/28/2404/29/25 23:59 23:59 23:59 23:59 Intake Total 3188.2 1745 2757.5 877.5 Output Total 4252 3941 9609 1300 Balance -1061.8 -1755 -1917.5 -422.5 Meds/Results Medications: Active Medications Generic Name Dose Route Start Last Admin Trade Name Freq PRN Reason Stop Dose Admin Acetaminophen 650 mg 04/26/24 22:19 04/26/24 22:57 Acetaminophen 650 Mg Suppository RECTAL 650 mg Q6H PRN Administration Mild Pain (1-3) or Fever Artificial Tears 1 drop 04/27/24 08:37 Artificial Tears Ophth Soln 15 Ml Bottle EACH EYE QID PRN Dry Eye(s) Dextrose 12.5 gm 04/22/24 23:06 Dextrose 50% 25 Gm/50 Ml Syringe IV PUSH PRN PRN Hypoglycemia Protocol Enoxaparin Sodium 40 mg 04/29/24 09:00 Enoxaparin 40 Mg/0.4 Ml Syringe SUB-Q DAILY ROSY Glucagon 1 mg 04/22/24 23:06 Glucagon For Inj 1 Mg Vial IM PRN PRN Hypoglycemia Protocol Glucose 15 gm 04/22/24 23:06 Glucose Oral Gel 15 Gm Of Glucse In 37.5 Gm Tube PO PRN PRN Hypoglycemia Protocol Hydralazine HCl 10 mg 04/25/24 08:00 04/28/24 08:46 Hydralazine Hcl 20 Mg/Ml Vial IV PUSH 10 mg Q4H PRN Administration Blood Pressure - High Fluconazole/Dextrose 100 mg in 50 mls @ 50 mls/hr 04/22/24 22:00 04/28/24 21:05 Diflucan 100 Mg/Nacl 50 Ml IVPB Infused Q24H ROSY Infusion Dextrose 1,000 mls @ 100 mls/hr 04/22/24 23:06 Dextrose 5% 1,000 Ml IVPB PRN PRN Hypoglycemia Protocol Dextrose 1,000 mls @ 50 mls/hr 04/25/24 10:46 Dextrose 10% IV CONT .Q20H PRN if PN is interrupted Multivitamins 2.5 ml/ 2,005 mls @ 50 mls/hr 04/25/24 12:00 04/28/24 11:53 Multivitamins 2.5 ml/ Amino IV CONT 50 mls/hr Acids/Dextrose .Q24H ROSY Administration Protocol Fat Emulsion Intravenous 250 mls @ 20.833 mls/hr 04/25/24 12:00 04/28/24 23:57 Lipids 20% IVPB Infused Q24H ROSY Infusion Potassium Chloride/Dextrose 1,000 mls @ 75 mls/hr 04/28/24 10:00 04/29/24 05:28 Kcl 20 Meq/D5w 1,000 Ml IV CONT 75 mls/hr .[id number] ROSY Administration Piperacillin/Tazobactam/Dextrose 3.375 gm in 50 mls @ 100 mls/hr 04/28/24 12:00 04/29/24 06:00 Zosyn 3.375 Gm/Ns 50 Ml IVPB Infused Q6HR ROSY Infusion Ipratropium [place] 0.5 mg 04/23/24 14:00 04/29/24 08:05 Ipratropium Br 0.02% Inh Soln 0.5 Mg/2.5 Ml Vial INHALATION 0.5 mg Q6HRT ROSY Administration Levalbuterol HCl 0.63 mg 04/23/24 14:00 04/29/24 08:05 Levalbuterol Neb 1.25 Mg/3 Ml INHALATION 0.63 mg Q6HRT ROSY Administration Lidocaine 1 patch 04/27/24 16:35 04/28/24 08:48 Lidocaine 5% Patch TRANSDERM 1 patch DAILY ROSY Administration Lorazepam 0.5 mg 04/27/24 19:01 04/28/24 20:04 Lorazepam Inj (*Crx) 2 Mg/Ml Vial IV PUSH 0.5 mg HS PRN Administration Sleep Metoclopramide HCl 10 mg 04/28/24 12:00 04/29/24 05:29 Metoclopramide Hcl Inj 10 Mg/2 Ml Vial IV PUSH 10 mg Q6HR ROSY Administration Miscellaneous Information 1 each 04/29/24 00:01 Tpn Needs To Be Renewed Or It Will Automatically Discontinue. XX 05/29/24 00:00 CLARIFY ROSY Morphine Sulfate 4 mg 04/22/24 22:02 04/29/24 04:12 Morphine Sulfate (*Crx) 4 Mg/Ml Inj IV PUSH 4 mg Q3H PRN Administration Pain Rated 7-10 Pantoprazole Sodium 40 mg 04/26/24 21:00 04/28/24 20:04 Pantoprazole Sodium Iv 40 Mg Vial IV PUSH 40 mg Q12HR ROSY Administration Sodium Chloride 10 ml 04/23/24 14:00 04/29/24 05:29 Central Line Flush IV PUSH 10 ml Q8HR ROSY Administration Sodium Chloride 20 ml 04/23/24 10:16 Central Line Flush IV PUSH PRN PRN after blood draws Radiology Results: ITS Impressions Chest/Abdomen/Pelvis CTA 04/22/24 18:10 IMPRESSION: Perforated viscus with a large amount of free air and fluid, with mural thickening in the distal stomach and multiple punctate foci of extraluminal air in this area for which site of perforation is suspected. Renal Ultrasound 04/24/24 11:58 IMPRESSION: Simple cyst in the left kidney upper pole. Other appearances are unremarkable. Chest X-Ray 04/28/24 13:44 IMPRESSION: Bilateral basal atelectasis versus pneumonia with possible effusion. Underlying pulmonary edema is not excluded. Upper GI Series 04/28/24 16:58 IMPRESSION: 1. Likely locally contained exophytic mucosal leakage of contrast at the gastric antrum at the site of a reported repair ulcer. The irregular margins and absence of more diffuse distribution of the contrast with no contrast extending along the adjacent drainage catheters suggests that this likely remains confined by a reported omental patch. Definitive determination is required would consider repeat contrast contrast injection into the gastrostomy tube with subsequent CT imaging. Labs Labs: Laboratory Results - last 24 hr 04/24/24 04/28/24 04/28/24 09:26 12:06 18:26 Sodium 147 H Potassium 3.3 L Chloride 110 H Carbon Dioxide 28 Anion Gap 9 BUN 58 H Creatinine 1.61 H Estim Creat Clear Calc 47 Estimated GFR 42 L Glucose 156 H POC Capillary Glucose 128 H Calcium 8.8 Phosphorus Ur Random Creatinine 127 Ur Random Chloride <20 L U Random Chloride/Creat See note 04/28/24 04/29/24 04/29/24 23:33 05:27 05:27 Sodium 147 H Potassium 3.2 L Chloride 111 H Carbon Dioxide 27 Anion Gap 9 BUN 57 H Creatinine 1.62 H 1.63 H Estim Creat Clear Calc 47 Estimated GFR Glucose POC Capillary Glucose 144 H Calcium Phosphorus Ur Random Creatinine Ur Random Chloride U Random Chloride/Creat 04/29/24 04/29/24 05:27 05:27 Sodium Potassium Chloride Carbon Dioxide Anion Gap BUN Creatinine Estim Creat Clear Calc 46 Estimated GFR 42 L 41 L Glucose 148 H POC Capillary Glucose Calcium 8.7 Phosphorus 2.5 Ur Random Creatinine Ur Random Chloride U Random Chloride/Creat
[2024-04-29] MEDS: LIDOCAINE 5% PATCH 1 PATCH TRANSDERM (08:57)
[2024-04-29] MEDS: ENOXAPARIN 40 MG/0.4 ML SYRINGE SUB-Q (08:59)
[2024-04-29] MEDS: PANTOPRAZOLE SODIUM IV 40 MG VIAL IV PUSH ×2 (08:59→21:08)
--- NOTE | 2024-04-29 09:59 | PCDIET ---
Tube feeding recommendations: Jevity 1.5 @ 40 ml/h : 1320 kcal, 56 g protein, 670 ml free water. Eventual goal rate 60 ml/h to provide 1980 kcal, 84 g protein, 1003 ml free water. Recommend starting at 40 ml/h and advancing to goal as tolerated
--- NOTE | 2024-04-29 10:51 | WPDPN ---
Progress Note: A&P Assessment and Plan (1) Perforated abdominal viscus: Code(s): R19.8 - Other specified symptoms and signs involving the digestive system and abdomen Status: Acute Assessment and Plan: Postop day 7 after emergent exploratory laparotomy and repair of large distal antral gastric ulcer with omental patch. He seems to be recovering pretty well. Continue TPN for now. We will repeat his water-soluble upper GI study early next week and if the spine very small leak in. Then hopefully can start him on tube feeds via his gastrostomy tube and stop his TPN. He will need to get a speech therapy evaluation and modified barium swallow prior to allowing him to have p.o. intake eventually. Continue with Zosyn and Diflucan for oral antibiotic therapy for now. White blood cell count is relatively low. No fevers to suggest ongoing sepsis. Continue PT and OT. DVT prophylaxis with Lovenox and GI treatment with a scheduled IV proton pump inhibitors. (2) Acute kidney injury superimposed on stage 3b chronic kidney disease: Code(s): N17.9 - Acute kidney failure, unspecified; N18.32 - Chronic kidney disease, stage 3b Status: Acute Assessment and Plan: Renal function is improving. He is making good urine. Nephrology is following and managing. (3) Malnutrition following gastrointestinal surgery: Code(s): K91.2 - Postsurgical malabsorption, not elsewhere classified Status: Acute Assessment and Plan: Continue on TPN for now. Upper GI study shows a small contained leak from the repaired gastric ulcer site. Will need to stay NPO for now and continue on the TPN until the leak has stopped. Subjective Date/time seen: 04/29/24 10:51 Interval history: Patient is doing fairly well today. Awake and alert and does not seem to be confused this morning. He did get up out of bed to a chair yesterday. Water-soluble upper GI study yesterday showed very small contained leak from the area of gastric perforation still. No evidence of gastric outlet obstruction. Exam GI: Other: Abdomen is soft and nondistended. Midline incision is healing well with tono in place. Bilateral upper quadrant abdominal drain sites are intact. Output from both drains is mostly [place] serous. No bilious drainage. Gastrostomy tube in place and sutured with dry dressing. Drainage from the gastrostomy tube is typical bilious and nonbloody. Objective Data Vital Signs Vital Signs: Vital Signs - 24 hr 04/28/24 11:49 04/28/24 12:00 04/28/24 12:00 Temperature 36.2 C L Pulse Rate 68 66 Respiratory Rate 20 Blood Pressure 161/66 H Pulse Oximetry 99 100 Oxygen Delivery Nasal Cannula Oxygen Flow Rate 2 04/28/24 13:52 04/28/24 14:00 04/28/24 14:03 Temperature Pulse Rate 88 72 73 Respiratory Rate 20 20 Blood Pressure Pulse Oximetry Oxygen Delivery Oxygen Flow Rate 04/28/24 16:00 04/28/24 16:00 04/28/24 16:00 Temperature 36.2 C L Pulse Rate 73 76 Respiratory Rate 20 Blood Pressure 149/60 H Pulse Oximetry 99 99 Oxygen Delivery Nasal Cannula Oxygen Flow Rate 2 04/28/24 18:00 04/28/24 19:49 04/28/24 19:55 Temperature 36.9 C Pulse Rate 73 75 75 Respiratory Rate 20 20 Blood Pressure 180/67 H Pulse Oximetry 100 100 Oxygen Delivery Nasal Cannula Oxygen Flow Rate 2 04/28/24 20:00 04/28/24 20:36 04/28/24 20:42 Temperature Pulse Rate 76 82 82 Respiratory Rate 20 Blood Pressure Pulse Oximetry 96 Oxygen Delivery Nasal Cannula Oxygen Flow Rate 2 04/28/24 20:50 04/28/24 23:42 04/29/24 00:00 Temperature Pulse Rate 79 84 85 Respiratory Rate 20 Blood Pressure Pulse Oximetry Oxygen Delivery Oxygen Flow Rate 04/29/24 02:15 04/29/24 02:25 04/29/24 04:00 Temperature Pulse Rate 75 76 82 Respiratory Rate 20 20 Blood Pressure Pulse Oximetry Oxygen Delivery Oxygen Flow Rate 04/29/24 08:00 04/29/24 08:05 04/29/24 08:19 Temperature 36.6 C Pulse Rate 76 79 78 Respiratory Rate 14 20 20 Blood Pressure 133/65 Pulse Oximetry 100 Oxygen Delivery Oxygen Flow Rate Intake/Output Intake/Output: Intake & Output 04/26/24 04/27/24 04/28/24 04/29/24 23:59 23:59 23:59 23:59 Intake Total 3188.2 1745 2757.5 877.5 Output Total 4250 3500 4675 1300 Balance -1061.8 -1755 -1917.5 -422.5 Meds/Results Medications: Active Medications Generic Name Dose Route Start Last Admin Trade Name Freq PRN Reason Stop Dose Admin Acetaminophen 650 mg 04/26/24 22:19 04/26/24 22:57 Acetaminophen 650 Mg Suppository RECTAL 650 mg Q6H PRN Administration Mild Pain (1-3) or Fever Artificial Tears 1 drop 04/27/24 08:37 Artificial Tears Ophth Soln 15 Ml Bottle EACH EYE QID PRN Dry Eye(s) Dextrose 12.5 gm 04/22/24 23:06 Dextrose 50% 25 Gm/50 Ml Syringe IV PUSH PRN PRN Hypoglycemia Protocol Enoxaparin Sodium 40 mg 04/29/24 09:00 04/29/24 08:59 Enoxaparin 40 Mg/0.4 Ml Syringe SUB-Q 40 mg DAILY ROSY Administration Glucagon 1 mg 04/22/24 23:06 Glucagon For Inj 1 Mg Vial IM PRN PRN Hypoglycemia Protocol Glucose 15 gm 04/22/24 23:06 Glucose Oral Gel 15 Gm Of Glucse In 37.5 Gm Tube PO PRN PRN Hypoglycemia Protocol Hydralazine HCl 10 mg 04/25/24 08:00 04/28/24 08:46 Hydralazine Hcl 20 Mg/Ml Vial IV PUSH 10 mg Q4H PRN Administration Blood Pressure - High Fluconazole/Dextrose 100 mg in 50 mls @ 50 mls/hr 04/22/24 22:00 04/28/24 21:05 Diflucan 100 Mg/Nacl 50 Ml IVPB Infused Q24H ROSY Infusion Dextrose 1,000 mls @ 100 mls/hr 04/22/24 23:06 Dextrose 5% 1,000 Ml IVPB PRN PRN Hypoglycemia Protocol Dextrose 1,000 mls @ 50 mls/hr 04/25/24 10:46 Dextrose 10% IV CONT .Q20H PRN if PN is interrupted Multivitamins 2.5 ml/ 2,005 mls @ 50 mls/hr 04/25/24 12:00 04/28/24 11:53 Multivitamins 2.5 ml/ Amino IV CONT 50 mls/hr Acids/Dextrose .Q24H ROSY Administration Protocol Fat Emulsion Intravenous 250 mls @ 20.833 mls/hr 04/25/24 12:00 04/28/24 23:57 Lipids 20% IVPB Infused Q24H ROSY Infusion Potassium Chloride/Dextrose 1,000 mls @ 100 mls/hr 04/28/24 10:00 04/29/24 05:28 Kcl 20 Meq/D5w 1,000 Ml IV CONT 75 mls/hr .Q10H ROSY Administration Piperacillin/Tazobactam/Dextrose 3.375 gm in 50 mls @ 100 mls/hr 04/28/24 12:00 04/29/24 06:00 Zosyn 3.375 Gm/Ns 50 Ml IVPB Infused Q6HR ROSY Infusion Ipratropium [place] 0.5 mg 04/23/24 14:00 04/29/24 08:05 Ipratropium Br 0.02% Inh Soln 0.5 Mg/2.5 Ml Vial INHALATION 0.5 mg Q6HRT ROSY Administration Levalbuterol HCl 0.63 mg 04/23/24 14:00 04/29/24 08:05 Levalbuterol Neb 1.25 Mg/3 Ml INHALATION 0.63 mg Q6HRT ROSY Administration Lidocaine 1 patch 04/27/24 16:35 04/29/24 08:57 Lidocaine 5% Patch TRANSDERM 1 patch DAILY ROSY Administration Lorazepam 0.5 mg 04/27/24 19:01 04/28/24 20:04 Lorazepam Inj (*Crx) 2 Mg/Ml Vial IV PUSH 0.5 mg HS PRN Administration Sleep Metoclopramide HCl 10 mg 04/28/24 12:00 04/29/24 05:29 Metoclopramide Hcl Inj 10 Mg/2 Ml Vial IV PUSH 10 mg Q6HR ROSY Administration Miscellaneous Information 1 each 04/29/24 00:01 Tpn Needs To Be Renewed Or It Will Automatically Discontinue. XX 05/29/24 00:00 CLARIFY ROSY Morphine Sulfate 4 mg 04/22/24 22:02 04/29/24 04:12 Morphine Sulfate (*Crx) 4 Mg/Ml Inj IV PUSH 4 mg Q3H PRN Administration Pain Rated 7-10 Pantoprazole Sodium 40 mg 04/26/24 21:00 04/29/24 08:59 Pantoprazole Sodium Iv 40 Mg Vial IV PUSH 40 mg Q12HR ROSY Administration Sodium Chloride 10 ml 04/23/24 14:00 04/29/24 05:29 Central Line Flush IV PUSH 10 ml Q8HR ROSY Administration Sodium Chloride 20 ml 04/23/24 10:16 Central Line Flush IV PUSH PRN PRN after blood draws Radiology Results: ITS Impressions Chest/Abdomen/Pelvis CTA 04/22/24 18:10 IMPRESSION: Perforated viscus with a large amount of free air and fluid, with mural thickening in the distal stomach and multiple punctate foci of extraluminal air in this area for which site of perforation is suspected. Renal Ultrasound 04/24/24 11:58 IMPRESSION: Simple cyst in the left kidney upper pole. Other appearances are unremarkable. Chest X-Ray 04/28/24 13:44 IMPRESSION: Bilateral basal atelectasis versus pneumonia with possible effusion. Underlying pulmonary edema is not excluded. Upper GI Series 04/28/24 16:58 IMPRESSION: 1. Likely locally contained exophytic mucosal leakage of contrast at the gastric antrum at the site of a reported repair ulcer. The irregular margins and absence of more diffuse distribution of the contrast with no contrast extending along the adjacent drainage catheters suggests that this likely remains confined by a reported omental patch. Definitive determination is required would consider repeat contrast contrast injection into the gastrostomy tube with subsequent CT imaging. Labs Labs: Laboratory Results - last 24 hr 04/24/24 04/28/24 04/28/24 09:26 12:06 18:26 Sodium 147 H Potassium 3.3 L Chloride 110 H Carbon Dioxide 28 Anion Gap 9 BUN 58 H Creatinine 1.61 H Estim Creat Clear Calc 47 Estimated GFR 42 L Glucose 156 H POC Capillary Glucose 128 H Calcium 8.8 Phosphorus Magnesium Ur Random Creatinine 127 Ur Random Chloride <20 L U Random Chloride/Creat See note 04/28/24 04/29/24 04/29/24 23:33 05:27 05:27 Sodium 147 H Potassium 3.2 L Chloride 111 H Carbon Dioxide 27 Anion Gap 9 BUN 57 H Creatinine 1.62 H 1.63 H Estim Creat Clear Calc 47 Estimated GFR Glucose POC Capillary Glucose 144 H Calcium Phosphorus Magnesium Ur Random Creatinine Ur Random Chloride U Random Chloride/Creat 04/29/24 04/29/24 05:27 05:27 Sodium Potassium Chloride Carbon Dioxide Anion Gap BUN Creatinine Estim Creat Clear Calc 46 Estimated GFR 42 L 41 L Glucose 148 H POC Capillary Glucose Calcium 8.7 Phosphorus 2.5 Magnesium Cancelled Ur Random Creatinine Ur Random Chloride U Random Chloride/Creat
--- NOTE | 2024-04-29 10:55 | P.PNNP_ITS ---
Progress Note: A&P Assessment and Plan (1) Acute kidney injury superimposed on stage 3b chronic kidney disease: Code(s): N17.9 - Acute kidney failure, unspecified; N18.32 - Chronic kidney disease, stage 3b Status: Acute Assessment and Plan: the patient has Chronic kidney disease. His baseline creatinine is around 1.5. This is probably related to hypertension, peripheral vascular disease, and possibly chronic nonsteroidal anti-inflammatory agent use. we can evaluate this further when he recovers, possibly in the office if he needs follow-up. The patient has acute kidney injury. CT shows normal kidneys Renal sono simple cyst x 1 o/w unremarkable. Urine 'lytes are prerenal there are multiple contributing factors. diclofenac hypotension septic shock third spacing His urine output is doing well. He is not on diuretics. The creatinine is improved to 1.63 sodium level is still high. He received D5W with 20KCL per liter at 125/hr and repeat labs were better after 8hours but not quite target. I reduce the dose from 125-75 overnight. The day nurse tells me that he has not been getting his IV fluids other than the TPN. I was writing orders because his numbers were still off this morning but because he was not getting any fluid I just restarted the D5W with 20 of K at 125 an hour and will see how his labs are this afternoon. (2) Perforated gastric ulcer: Onset Date: 04/2024 Qualifiers: Gastric ulcer chronicity: acute Qualified Code(s): K25.1 - Acute gastric ulcer with perforation Code(s): K25.5 - Chronic or unspecified gastric ulcer with perforation Status: Inactive Assessment and Plan: He had a perforated gastric ulcer, likely related to nonsteroidal anti- inflammatory agents. This was repaired in the OR and he is recovering from this. (3) Acute respiratory failure: Code(s): J96.00 - Acute respiratory failure, unspecified whether with hypoxia or hypercapnia Status: Acute Assessment and Plan: the patient is breathing on his own. (4) Shock circulatory: Code(s): R57.9 - Shock, unspecified Status: Acute Assessment and Plan: Blood pressure doing well (5) Anemia: Code(s): D64.9 - Anemia, unspecified Status: Acute Assessment and Plan: hemoglobin 10.5.upn to 12. probably due to hemoconcentration (6) Acute hyperkalemia: Code(s): E87.5 - Hyperkalemia Status: Acute Assessment and Plan: His potassium is fine today. (7) HTN (hypertension): Code(s): I10 - Essential (primary) hypertension Status: Acute Assessment and Plan: Blood pressure meds are on hold (8) Hypercholesterolemia: Code(s): E78.00 - Pure hypercholesterolemia, unspecified Status: Acute Assessment and Plan: atorvastatin is on hold Subjective Date/time seen: 04/29/24 10:55 Interval history: Patient is awake. He feels better Exam Narrative: WDWN male resting comfortably in bed in NAD Neuro alert and interactive skin no rash or subcu nodules head ncat lungs clear to auscultation cor reg no rub abd BS very hypoactive if any ext 1+ bilateral presacral edema. Objective Data Vital Signs Vital Signs: Vital Signs - 24 hr 04/28/24 11:49 04/28/24 12:00 04/28/24 12:00 Temperature 97.1 F L Pulse Rate 68 66 Respiratory Rate 20 Blood Pressure 161/66 H Pulse Oximetry 99 100 Oxygen Delivery Nasal Cannula Oxygen Flow Rate 2 04/28/24 13:52 04/28/24 14:00 04/28/24 14:03 Temperature Pulse Rate 88 72 73 Respiratory Rate 20 20 Blood Pressure Pulse Oximetry Oxygen Delivery Oxygen Flow Rate 04/28/24 16:00 04/28/24 16:00 04/28/24 16:00 Temperature 97.2 F L Pulse Rate 73 76 Respiratory Rate 20 Blood Pressure 149/60 H Pulse Oximetry 99 99 Oxygen Delivery Nasal Cannula Oxygen Flow Rate 2 04/28/24 18:00 04/28/24 19:49 04/28/24 19:55 Temperature 98.5 F Pulse Rate 73 75 75 Respiratory Rate 20 20 Blood Pressure 180/67 H Pulse Oximetry 100 100 Oxygen Delivery Nasal Cannula Oxygen Flow Rate 2 04/28/24 20:00 04/28/24 20:36 04/28/24 20:42 Temperature Pulse Rate 76 82 82 Respiratory Rate 20 Blood Pressure Pulse Oximetry 96 Oxygen Delivery Nasal Cannula Oxygen Flow Rate 2 04/28/24 20:50 04/28/24 23:42 04/29/24 00:00 Temperature Pulse Rate 79 84 85 Respiratory Rate 20 Blood Pressure Pulse Oximetry Oxygen Delivery Oxygen Flow Rate 04/29/24 02:15 04/29/24 02:25 04/29/24 04:00 Temperature Pulse Rate 75 76 82 Respiratory Rate 20 20 Blood Pressure Pulse Oximetry Oxygen Delivery Oxygen Flow Rate 04/29/24 08:00 04/29/24 08:05 04/29/24 08:19 Temperature 97.8 F Pulse Rate 76 79 78 Respiratory Rate 14 20 20 Blood Pressure 133/65 Pulse Oximetry 100 Oxygen Delivery Oxygen Flow Rate Intake/Output Intake/Output: Intake & Output 04/26/24 04/27/24 04/28/24 04/29/24 23:59 23:59 23:59 23:59 Intake Total 3188.2 1745 2757.5 877.5 Output Total 4250 3500 4675 1300 Balance -1061.8 -1755 -1917.5 -422.5 Meds/Results Medications: Active Medications Generic Name Dose Route Start Last Admin Trade Name Freq PRN Reason Stop Dose Admin Acetaminophen 650 mg 04/26/24 22:19 04/26/24 22:57 Acetaminophen 650 Mg Suppository RECTAL 650 mg Q6H PRN Administration Mild Pain (1-3) or Fever Artificial Tears 1 drop 04/27/24 08:37 Artificial Tears Ophth Soln 15 Ml Bottle EACH EYE QID PRN Dry Eye(s) Dextrose 12.5 gm 04/22/24 23:06 Dextrose 50% 25 Gm/50 Ml Syringe IV PUSH PRN PRN Hypoglycemia Protocol Enoxaparin Sodium 40 mg 04/29/24 09:00 04/29/24 08:59 Enoxaparin 40 Mg/0.4 Ml Syringe SUB-Q 40 mg DAILY ROSY Administration Glucagon 1 mg 04/22/24 23:06 Glucagon For Inj 1 Mg Vial IM PRN PRN Hypoglycemia Protocol Glucose 15 gm 04/22/24 23:06 Glucose Oral Gel 15 Gm Of Glucse In 37.5 Gm Tube PO PRN PRN Hypoglycemia Protocol Hydralazine HCl 10 mg 04/25/24 08:00 04/28/24 08:46 Hydralazine Hcl 20 Mg/Ml Vial IV PUSH 10 mg Q4H PRN Administration Blood Pressure - High Fluconazole/Dextrose 100 mg in 50 mls @ 50 mls/hr 04/22/24 22:00 04/28/24 21:05 Diflucan 100 Mg/Nacl 50 Ml IVPB Infused Q24H ROSY Infusion Dextrose 1,000 mls @ 100 mls/hr 04/22/24 23:06 Dextrose 5% 1,000 Ml IVPB PRN PRN Hypoglycemia Protocol Dextrose 1,000 mls @ 50 mls/hr 04/25/24 10:46 Dextrose 10% IV CONT .Q20H PRN if PN is interrupted Multivitamins 2.5 ml/ 2,005 mls @ 50 mls/hr 04/25/24 12:00 04/28/24 11:53 Multivitamins 2.5 ml/ Amino IV CONT 50 mls/hr Acids/Dextrose .Q24H ROSY Administration Protocol Fat Emulsion Intravenous 250 mls @ 20.833 mls/hr 04/25/24 12:00 04/28/24 23:57 Lipids 20% IVPB Infused Q24H ROSY Infusion Potassium Chloride/Dextrose 1,000 mls @ 100 mls/hr 04/28/24 10:00 04/29/24 05:28 Kcl 20 Meq/D5w 1,000 Ml IV CONT 75 mls/hr .Q10H ROSY Administration Piperacillin/Tazobactam/Dextrose 3.375 gm in 50 mls @ 100 mls/hr 04/28/24 12:00 04/29/24 06:00 Zosyn 3.375 Gm/Ns 50 Ml IVPB Infused Q6HR ROYS Infusion Ipratropium [place] 0.5 mg 04/23/24 14:00 04/29/24 08:05 Ipratropium Br 0.02% Inh Soln 0.5 Mg/2.5 Ml Vial INHALATION 0.5 mg Q6HRT ROSY Administration Levalbuterol HCl 0.63 mg 04/23/24 14:00 04/29/24 08:05 Levalbuterol Neb 1.25 Mg/3 Ml INHALATION 0.63 mg Q6HRT ROSY Administration Lidocaine 1 patch 04/27/24 16:35 04/29/24 08:57 Lidocaine 5% Patch TRANSDERM 1 patch DAILY ROSY Administration Lorazepam 0.5 mg 04/27/24 19:01 04/28/24 20:04 Lorazepam Inj (*Crx) 2 Mg/Ml Vial IV PUSH 0.5 mg HS PRN Administration Sleep Metoclopramide HCl 10 mg 04/28/24 12:00 04/29/24 05:29 Metoclopramide Hcl Inj 10 Mg/2 Ml Vial IV PUSH 10 mg Q6HR ROSY Administration Miscellaneous Information 1 each 04/29/24 00:01 Tpn Needs To Be Renewed Or It Will Automatically Discontinue. XX 05/29/24 00:00 CLARIFY ROSY Morphine Sulfate 4 mg 04/22/24 22:02 04/29/24 04:12 Morphine Sulfate (*Crx) 4 Mg/Ml Inj IV PUSH 4 mg Q3H PRN Administration Pain Rated 7-10 Pantoprazole Sodium 40 mg 04/26/24 21:00 04/29/24 08:59 Pantoprazole Sodium Iv 40 Mg Vial IV PUSH 40 mg Q12HR ROSY Administration Sodium Chloride 10 ml 04/23/24 14:00 04/29/24 05:29 Central Line Flush IV PUSH 10 ml Q8HR ROSY Administration Sodium Chloride 20 ml 04/23/24 10:16 Central Line Flush IV PUSH PRN PRN after blood draws Radiology Results: ITS Impressions Chest/Abdomen/Pelvis CTA 04/22/24 18:10 IMPRESSION: Perforated viscus with a large amount of free air and fluid, with mural thickening in the distal stomach and multiple punctate foci of extraluminal air in this area for which site of perforation is suspected. Renal Ultrasound 04/24/24 11:58 IMPRESSION: Simple cyst in the left kidney upper pole. Other appearances are unremarkable. Chest X-Ray 04/28/24 13:44 IMPRESSION: Bilateral basal atelectasis versus pneumonia with possible effusion. Underlying pulmonary edema is not excluded. Upper GI Series 04/28/24 16:58 IMPRESSION: 1. Likely locally contained exophytic mucosal leakage of contrast at the gastric antrum at the site of a reported repair ulcer. The irregular margins and absence of more diffuse distribution of the contrast with no contrast extending along the adjacent drainage catheters suggests that this likely remains confined by a reported omental patch. Definitive determination is required would consider repeat contrast contrast injection into the gastrostomy tube with subsequent CT imaging. Labs Labs: Laboratory Results - last 24 hr 04/24/24 04/28/24 04/28/24 09:26 12:06 18:26 Sodium 147 H Potassium 3.3 L Chloride 110 H Carbon Dioxide 28 Anion Gap 9 BUN 58 H Creatinine 1.61 H Estim Creat Clear Calc 47 Estimated GFR 42 L Glucose 156 H POC Capillary Glucose 128 H Calcium 8.8 Phosphorus Magnesium Ur Random Creatinine 127 Ur Random Chloride <20 L U Random Chloride/Creat See note 04/28/24 04/29/24 04/29/24 23:33 05:27 05:27 Sodium 147 H Potassium 3.2 L Chloride 111 H Carbon Dioxide 27 Anion Gap 9 BUN 57 H Creatinine 1.62 H 1.63 H Estim Creat Clear Calc 47 Estimated GFR Glucose POC Capillary Glucose 144 H Calcium Phosphorus Magnesium Ur Random Creatinine Ur Random Chloride U Random Chloride/Creat 04/29/24 04/29/24 05:27 05:27 Sodium Potassium Chloride Carbon Dioxide Anion Gap BUN Creatinine Estim Creat Clear Calc 46 Estimated GFR 42 L 41 L Glucose 148 H POC Capillary Glucose Calcium 8.7 Phosphorus 2.5 Magnesium Cancelled Ur Random Creatinine Ur Random Chloride U Random Chloride/Creat
[2024-04-29 11:40] LABS: Glucose Point of Care 122 mg/dl (65-105)
[2024-04-29] MEDS: AMINO ACIDS 5%/DEXTROSE 15% 2,000 ML with MULTIVITAMINS-12 INJ VIAL 1 2.5 ML, MULTIVITA... 50 ML IV CONT (15:42)
[2024-04-29] MEDS: FAT EMULSIONS IV 20% 250 ML 20.83 ML IVPB (15:45)
[2024-04-29 16:58] LABS: Anion Gap 9 mmol/L (4-12); Blood Urea Nitrogen 57 mg/dL (9-20); Calcium 8.6 mg/dL (8.4-10.2); Carbon Dioxide 26 mmol/L (22-30); Chloride 109 mmol/L (98-107); Estimated CRCL calculation 50 ml/min; Estimated Glomerular Filt Rate 44; Glucose 136 mg/dL (65-110); Potassium 3.4 mmol/L (3.4-5.0); Sodium 144 mmol/L (137-145)
[2024-04-29 18:17] LABS: Glucose Point of Care 122 mg/dl (65-105)
[2024-04-29 19:58] LABS: Glucose Point of Care 129 mg/dl (65-105)
[2024-04-29] MEDS: FLUCONAZOLE 100 MG/NACL 50 ML 100 MG/50 ML BTL 50 MG IVPB (21:09)
[2024-04-29] MEDS: ALTEPLASE 2 MG VIAL (CATHFLO) IV PUSH (21:42)
[2024-04-29] MEDS: WATER, STERILE FOR INJECTION 10 ML VIAL XX (21:43)
[2024-04-29] MEDS: hydrALAZINE HCL 20 MG/ML VIAL 10 MG IV PUSH (23:17)
[2024-04-30] VITALS (15 sets, daily range): BP systolic 157–199; BP diastolic 59–73; PULSE 75–91; RESP 18–20; TEMP 36.4–37.4; O2SAT 97–100
[2024-04-30] MEDS: MORPHINE SULFATE (*CRX) 4 MG/ML INJ IV PUSH ×5 (00:12→21:32)
[2024-04-30] MEDS: LEVALBUTEROL NEB 1.25 MG/3 ML 0.63 MG INHALATION ×4 (01:59→19:27)
[2024-04-30] MEDS: IPRATROPIUM BR 0.02% INH SOLN 0.5 MG/2.5 ML VIAL INHALATION ×4 (02:00→19:27)
[2024-04-30] MEDS: LORazepam INJ (*CRX) 2 MG/ML VIAL 0.5 MG IV PUSH ×2 (02:29→21:10)
[2024-04-30] MEDS: KCL 20 MEQ/D5W 1,000 ML 1,000 ML 75 ML IV CONT (02:59)
[2024-04-30 04:24] LABS: Basophils Absolute Auto 0.1 K/mm3 (0.0-0.1); Basophils Percent Auto 0.5 % (0.2-1.2); Eosinophils Absolute Auto 0.5 K/mm3 (0-0.3); Eosinophils Percent Auto 3.4 % (0-4.4); Hematocrit 34.6 % (42.0-52.0); Hemoglobin 11.1 g/dL (14.0-18.0); Immature Granulocyte Percent A 5.4 % (0-0.5); Lymphocytes Percent Auto 4.7 % (18.3-44.2); Mean Corpuscular HGB Conc 32.1 g/dl (32-36); Mean Corpuscular Hemoglobin 29.3 pg (26-34); Mean Corpuscular Volume 91.3 fl (80-100); Mean Platelet Volume 12.3 fl (7.4-10.4); Monocytes Percent Auto 6.5 % (2.6-8.5); Neutrophils Absolute Auto 11.8 K/mm3 (1.3-6.7); Neutrophils Percent Auto 79.5 % (45.5-73.1); Platelet Count Result 191 k/mm3 (150-375); Red Blood Count 3.79 M/mm3 (4.6-6.20); Red Cell Distribution Width 14.6 % (11.5-14.5); White Blood Count 14.8 K/mm3 (4.5-10.0)
[2024-04-30 04:35] LABS: Anion Gap 10 mmol/L (4-12); Blood Urea Nitrogen 51 mg/dL (9-20); Calcium 8.3 mg/dL (8.4-10.2); Carbon Dioxide 24 mmol/L (22-30); Chloride 109 mmol/L (98-107); Estimated CRCL calculation 48 ml/min; Estimated Glomerular Filt Rate 42; Glucose 144 mg/dL (65-110); Magnesium 1.7 mg/dL (1.6-2.3); Phosphorus 2.7 mg/dL (2.5-4.5); Potassium 3.2 mmol/L (3.4-5.0); Sodium 143 mmol/L (137-145); Triglycerides 216 mg/dL (<150)
[2024-04-30] MEDS: CENTRAL LINE FLUSH 10 ML IV PUSH ×3 (05:25→21:08)
[2024-04-30] MEDS: METOCLOPRAMIDE HCL INJ 10 MG/2 ML VIAL IV PUSH ×4 (05:44→23:08)
[2024-04-30] MEDS: PIPERACILLN/TAZ 3.375GM/NS50ML 3.375 GM/50 ML BAG IVPB ×4 (05:45→23:08)
--- NOTE | 2024-04-30 08:28 | PM.PNNEP ---
Progress Note: A&P Assessment and Plan (1) Acute kidney injury superimposed on stage 3b chronic kidney disease: Code(s): N17.9 - Acute kidney failure, unspecified; N18.32 - Chronic kidney disease, stage 3b Status: Acute Assessment and Plan: the patient has chronic kidney disease. His baseline creatinine is around 1.5. This is probably related to hypertension, peripheral vascular disease, and possibly chronic nonsteroidal anti-inflammatory agent use. we can evaluate this further when he recovers, possibly in the office if he needs follow-up. The patient has acute kidney injury. CT shows normal kidneys Renal sono simple cyst x 1 o/w unremarkable. Urine 'lytes are prerenal there are multiple contributing factors. diclofenac hypotension septic shock third spacing His urine output is doing well. he made 2000 cc urine yesterday. I/O are positive a little. He is not on diuretics. The creatinine is slightly improved to 1.61 sodium level is down to 143 now. probably his lower urine output and kidney function improvement is allowing his kidneys to balance sodium better. will reduce d5w to 50 and see how he does. this will give him 2400cc fluid (tpn and d5w) plus his other meds. K is low still. will give a k rider. (2) Perforated gastric ulcer: Onset Date: 04/2024 Qualifiers: Gastric ulcer chronicity: acute Qualified Code(s): K25.1 - Acute gastric ulcer with perforation Code(s): K25.5 - Chronic or unspecified gastric ulcer with perforation Status: Inactive Assessment and Plan: He had a perforated gastric ulcer, likely related to nonsteroidal anti-inflammatory agents. This was repaired in the OR and he is recovering from this. (3) Acute respiratory failure: Code(s): J96.00 - Acute respiratory failure, unspecified whether with hypoxia or hypercapnia Status: Acute Assessment and Plan: the patient is breathing on his own. in the middle of a breathing tx when I saw him (4) Shock circulatory: Code(s): R57.9 - Shock, unspecified Status: Acute Assessment and Plan: Blood pressure doing well (5) Anemia: Code(s): D64.9 - Anemia, unspecified Status: Acute Assessment and Plan: hemoglobin 11.1 today (6) Acute hyperkalemia: Code(s): E87.5 - Hyperkalemia Status: Acute Assessment and Plan: His potassium is now low. (7) HTN (hypertension): Code(s): I10 - Essential (primary) hypertension Status: Acute Assessment and Plan: Blood pressure meds are on hold (8) Hypercholesterolemia: Code(s): E78.00 - Pure hypercholesterolemia, unspecified Status: Acute Assessment and Plan: atorvastatin is on hold Subjective Date/time seen: 04/30/24 08:28 Interval history: patient is feeling about the same passing no gas no cp or sob Exam Narrative: WDWN male resting comfortably in bed in NAD Neuro alert and interactive skin no rash or subcu nodules head ncat lungs clear to auscultation cor reg no rub abd BS very hypoactive if any ext no edema. Objective Data Vital Signs Vital Signs: Vital Signs - 24 hr 04/29/24 12:00 04/29/24 13:48 04/29/24 13:59 Temperature Pulse Rate 75 75 79 Respiratory Rate 20 20 Blood Pressure Pulse Oximetry Oxygen Delivery Oxygen Flow Rate 04/29/24 16:00 04/29/24 16:00 04/29/24 19:39 Temperature 98.8 F Pulse Rate 75 82 85 Respiratory Rate 18 20 Blood Pressure 162/63 H Pulse Oximetry 100 Oxygen Delivery Oxygen Flow Rate 04/29/24 19:50 04/29/24 20:00 04/29/24 20:00 Temperature Pulse Rate 85 86 Respiratory Rate 20 Blood Pressure Pulse Oximetry 98 Oxygen Delivery Nasal Cannula Oxygen Flow Rate 2 04/29/24 20:30 04/29/24 21:26 04/30/24 00:00 Temperature 97.8 F 97.8 F Pulse Rate 83 85 82 Respiratory Rate 18 18 Blood Pressure 184/78 H 161/73 H Pulse Oximetry 100 100 100 Oxygen Delivery Nasal Cannula Oxygen Flow Rate 2.5 04/30/24 00:00 04/30/24 01:59 04/30/24 02:20 Temperature Pulse Rate 91 85 85 Respiratory Rate 20 20 Blood Pressure Pulse Oximetry Oxygen Delivery Oxygen Flow Rate 04/30/24 04:00 04/30/24 07:23 04/30/24 07:23 Temperature Pulse Rate 82 77 Respiratory Rate 20 Blood Pressure Pulse Oximetry 99 Oxygen Delivery Nasal Cannula Oxygen Flow Rate 1 04/30/24 07:35 Temperature Pulse Rate 79 Respiratory Rate 20 Blood Pressure Pulse Oximetry Oxygen Delivery Oxygen Flow Rate Intake/Output Intake/Output: Intake & Output 04/27/24 04/28/24 04/29/24 04/30/24 23:59 23:59 23:59 23:59 Intake Total 1745 2757.5 3239.5 1092.5 Output Total 3500 4675 2335 1095 Balance -1755 -1917.5 904.5 -2.5 Meds/Results Medications: Active Medications Generic Name Dose Route Start Last Admin Trade Name Freq PRN Reason Stop Dose Admin Acetaminophen 650 mg 04/26/24 22:19 04/26/24 22:57 Acetaminophen 650 Mg Suppository RECTAL 650 mg Q6H PRN Administration Mild Pain (1-3) or Fever Alteplase, Recombinant 2 mg 04/29/24 18:20 04/29/24 21:42 Alteplase 2 Mg Vial (Cathflo) IV PUSH 2 mg ONCE PRN Administration Line Occlusion Artificial Tears 1 drop 04/27/24 08:37 Artificial Tears Ophth Soln 15 Ml Bottle EACH EYE QID PRN Dry Eye(s) Atorvastatin Calcium 20 mg 04/30/24 09:00 Atorvastatin 20 Mg Tablet BY MOUTH DAILY ROSY Dextrose 12.5 gm 04/22/24 23:06 Dextrose 50% 25 Gm/50 Ml Syringe IV PUSH PRN PRN Hypoglycemia Protocol Enoxaparin Sodium 40 mg 04/29/24 09:00 04/29/24 08:59 Enoxaparin 40 Mg/0.4 Ml Syringe SUB-Q 40 mg DAILY ROSY Administration Glucagon 1 mg 04/22/24 23:06 Glucagon For Inj 1 Mg Vial IM PRN PRN Hypoglycemia Protocol Glucose 15 gm 04/22/24 23:06 Glucose Oral Gel 15 Gm Of Glucse In 37.5 Gm Tube PO PRN PRN Hypoglycemia Protocol Hydralazine HCl 10 mg 04/25/24 08:00 04/29/24 23:17 Hydralazine Hcl 20 Mg/Ml Vial IV PUSH 10 mg Q4H PRN Administration Blood Pressure - High Fluconazole/Dextrose 100 mg in 50 mls @ 50 mls/hr 04/22/24 22:00 04/29/24 22:09 Diflucan 100 Mg/Nacl 50 Ml IVPB Infused Q24H ROSY Infusion Dextrose 1,000 mls @ 100 mls/hr 04/22/24 23:06 Dextrose 5% 1,000 Ml IVPB PRN PRN Hypoglycemia Protocol Dextrose 1,000 mls @ 50 mls/hr 04/25/24 10:46 Dextrose 10% IV CONT .Q20H PRN if PN is interrupted Multivitamins 2.5 ml/ 2,005 mls @ 50 mls/hr 04/25/24 12:00 04/29/24 15:42 Multivitamins 2.5 ml/ Amino IV CONT 50 mls/hr Acids/Dextrose .Q24H ROSY Administration Protocol Fat Emulsion Intravenous 250 mls @ 20.833 mls/hr 04/25/24 12:00 04/30/24 04:00 Lipids 20% IVPB Infused Q24H ROSY Infusion Potassium Chloride/Dextrose 1,000 mls @ 100 mls/hr 04/28/24 10:00 04/30/24 02:59 Kcl 20 Meq/D5w 1,000 Ml IV CONT 75 mls/hr .Q10H ROSY Administration Piperacillin/Tazobactam/Dextrose 3.375 gm in 50 mls @ 100 mls/hr 04/28/24 12:00 04/30/24 05:45 Zosyn 3.375 Gm/Ns 50 Ml IVPB 100 mls/hr Q6HR ROSY Administration Multivitamins 1.25 ml/ 1,002.5 mls @ 50 mls/hr 05/01/24 12:00 Multivitamins 1.25 ml/ Amino IV CONT Acids/Electrolytes/Dextrose .Q20H3M ROSY Ipratropium [place] 0.5 mg 04/23/24 14:00 04/30/24 07:23 Ipratropium Br 0.02% Inh Soln 0.5 Mg/2.5 Ml Vial INHALATION 0.5 mg Q6HRT ROSY Administration Levalbuterol HCl 0.63 mg 04/23/24 14:00 04/30/24 07:23 Levalbuterol Neb 1.25 Mg/3 Ml INHALATION 0.63 mg Q6HRT ROSY Administration Lidocaine 1 patch 04/27/24 16:35 04/29/24 08:57 Lidocaine 5% Patch TRANSDERM 1 patch DAILY ROSY Administration Lorazepam 0.5 mg 04/27/24 19:01 04/30/24 02:29 Lorazepam Inj (*Crx) 2 Mg/Ml Vial IV PUSH 0.5 mg HS PRN Administration Sleep Metoclopramide HCl 10 mg 04/28/24 12:00 04/30/24 05:44 Metoclopramide Hcl Inj 10 Mg/2 Ml Vial IV PUSH 10 mg Q6HR ROSY Administration Morphine Sulfate 4 mg 04/22/24 22:02 04/30/24 00:12 Morphine Sulfate (*Crx) 4 Mg/Ml Inj IV PUSH 4 mg Q3H PRN Administration Pain Rated 7-10 Pantoprazole Sodium 40 mg 04/26/24 21:00 04/29/24 21:08 Pantoprazole Sodium Iv 40 Mg Vial IV PUSH 40 mg Q12HR ROSY Administration Sodium Chloride 10 ml 04/23/24 14:00 04/30/24 05:25 Central Line Flush IV PUSH 10 ml Q8HR ROSY Administration Sodium Chloride 20 ml 04/23/24 10:16 Central Line Flush IV PUSH PRN PRN after blood draws Radiology Results: ITS Impressions Chest/Abdomen/Pelvis CTA 04/22/24 18:10 IMPRESSION: Perforated viscus with a large amount of free air and fluid, with mural thickening in the distal stomach and multiple punctate foci of extraluminal air in this area for which site of perforation is suspected. Renal Ultrasound 04/24/24 11:58 IMPRESSION: Simple cyst in the left kidney upper pole. Other appearances are unremarkable. Chest X-Ray 04/28/24 13:44 IMPRESSION: Bilateral basal atelectasis versus pneumonia with possible effusion. Underlying pulmonary edema is not excluded. Upper GI Series 04/28/24 16:58 IMPRESSION: 1. Likely locally contained exophytic mucosal leakage of contrast at the gastric antrum at the site of a reported repair ulcer. The irregular margins and absence of more diffuse distribution of the contrast with no contrast extending along the adjacent drainage catheters suggests that this likely remains confined by a reported omental patch. Definitive determination is required would consider repeat contrast contrast injection into the gastrostomy tube with subsequent CT imaging. Labs Labs: Laboratory Results - last 24 hr 04/29/24 04/29/24 04/29/24 05:27 11:06 16:28 WBC RBC Hgb Hct MCV MCH MCHC RDW Plt Count MPV Immature Gran % (Auto) Neut % (Auto) Lymph % (Auto) [place] % (Auto) Eos % (Auto) Baso % (Auto) Lymph # (Auto) [place] # (Auto) Eos # (Auto) Baso # (Auto) Abs Immat Gran (auto) Absolute Neuts (auto) Absolute Nucleated RBC Nucleated RBC % Sodium 144 Potassium 3.4 Chloride 109 H Carbon Dioxide 26 Anion Gap 9 BUN 57 H Creatinine 1.54 H Estim Creat Clear Calc 50 Estimated GFR 44 L Glucose 136 H POC Capillary Glucose 122 H Calcium 8.6 Phosphorus Magnesium Cancelled Triglycerides 04/29/24 04/29/24 04/30/24 18:11 19:39 04:19 WBC 14.8 H RBC 3.79 L Hgb 11.1 L Hct 34.6 L MCV 91.3 MCH 29.3 MCHC 32.1 RDW 14.6 H Plt Count 191 MPV 12.3 H Immature Gran % (Auto) 5.4 H Neut % (Auto) 79.5 H Lymph % (Auto) 4.7 L [place] % (Auto) 6.5 Eos % (Auto) 3.4 Baso % (Auto) 0.5 Lymph # (Auto) 0.70 L [place] # (Auto) 1.0 H Eos # (Auto) 0.5 H Baso # (Auto) 0.1 Abs Immat Gran (auto) 0.80 H Absolute Neuts (auto) 11.8 H Absolute Nucleated RBC 0.000 Nucleated RBC % 0.0 Sodium Potassium Chloride Carbon Dioxide Anion Gap BUN Creatinine Estim Creat Clear Calc Estimated GFR Glucose POC Capillary Glucose 122 H 129 H Calcium Phosphorus Magnesium Triglycerides 04/30/24 04:20 WBC RBC Hgb Hct MCV MCH MCHC RDW Plt Count MPV Immature Gran % (Auto) Neut % (Auto) Lymph % (Auto) [place] % (Auto) Eos % (Auto) Baso % (Auto) Lymph # (Auto) [place] # (Auto) Eos # (Auto) Baso # (Auto) Abs Immat Gran (auto) Absolute Neuts (auto) Absolute Nucleated RBC Nucleated RBC % Sodium 143 Potassium 3.2 L Chloride 109 H Carbon Dioxide 24 Anion Gap 10 BUN 51 H Creatinine 1.61 H Estim Creat Clear Calc 48 Estimated GFR 42 L Glucose 144 H POC Capillary Glucose Calcium 8.3 L Phosphorus 2.7 Magnesium 1.7 Triglycerides 216 H
[2024-04-30] MEDS: LIDOCAINE 5% PATCH 1 PATCH TRANSDERM (08:59)
[2024-04-30] MEDS: ENOXAPARIN 40 MG/0.4 ML SYRINGE SUB-Q (08:59)
[2024-04-30] MEDS: PANTOPRAZOLE SODIUM IV 40 MG VIAL IV PUSH ×2 (08:59→21:08)
--- NOTE | 2024-04-30 09:19 | P.PNIM_ITS ---
Progress Note: A&P Assessment and Plan (1) Perforated abdominal viscus: Code(s): R19.8 - Other specified symptoms and signs involving the digestive system and abdomen Status: Acute Assessment and Plan: * Post op ileus persists * Continue Zosyn * Continue supportive care (2) Malnutrition following gastrointestinal surgery: Code(s): K91.2 - Postsurgical malabsorption, not elsewhere classified Status: Acute Assessment and Plan: * Continue TPN (3) Acute kidney injury superimposed on stage 3b chronic kidney disease: Code(s): N17.9 - Acute kidney failure, unspecified; N18.32 - Chronic kidney disease, stage 3b Status: Acute Assessment and Plan: * 04/30 creatinine 1.61, stable (4) Anemia: Code(s): D64.9 - Anemia, unspecified Status: Acute Assessment and Plan: * 04/30 Hgb 11.1, slightly decreased (5) Acute respiratory failure: Code(s): J96.00 - Acute respiratory failure, unspecified whether with hypoxia or hypercapnia Status: Acute Assessment and Plan: * 04/30 O2 1 L by NC, wean as tolerated (6) Hypokalemia: Code(s): E87.6 - Hypokalemia Status: Acute Assessment and Plan: * 04/30 3.2, K-rider ordered (7) HTN (hypertension): Code(s): I10 - Essential (primary) hypertension Status: Acute Assessment and Plan: * 04/30 158/59 * Continue to monitor Subjective Date/time seen: 04/30/24 09:19 Interval history: No stool or flatus. Abdominal pain still requires intermittent opioid analgesic. Denied chest pain or sob. Overall is feeling a bit better today. Review of Systems Review of Systems: All systems reviewed & are unremarkable except as noted in HPI and below Exam Narrative: HEENT: PERRL, sclerae nonicteric, pharyngeal mucosa pink and intact NECK: No JVD CHEST: Clear to auscultation. Normal effort. HEART: NL S1/S2, regular, no murmur. ABDOMEN: BS absent, protuberant but soft, nontender. EXTREMITIES: No cyanosis, edema, or clubbing. NEUROLOGIC: CN intact and symmetric to inspection. MUSCULOSKELETAL: Tone and strength symmetric. PSYCH: Alert. Oriented to person, place. Objective Data Vital Signs Vital Signs: Vital Signs - 24 hr 04/29/24 12:00 04/29/24 13:48 04/29/24 13:59 Temperature Pulse Rate 75 75 79 Respiratory Rate 20 20 Blood Pressure Pulse Oximetry Oxygen Delivery Oxygen Flow Rate 04/29/24 16:00 04/29/24 16:00 04/29/24 19:39 Temperature 98.8 F Pulse Rate 75 82 85 Respiratory Rate 18 20 Blood Pressure 162/63 H Pulse Oximetry 100 Oxygen Delivery Oxygen Flow Rate 04/29/24 19:50 04/29/24 20:00 04/29/24 20:00 Temperature Pulse Rate 85 86 Respiratory Rate 20 Blood Pressure Pulse Oximetry 98 Oxygen Delivery Nasal Cannula Oxygen Flow Rate 2 04/29/24 20:30 04/29/24 21:26 04/30/24 00:00 Temperature 97.8 F 97.8 F Pulse Rate 83 85 82 Respiratory Rate 18 18 Blood Pressure 184/78 H 161/73 H Pulse Oximetry 100 100 100 Oxygen Delivery Nasal Cannula Oxygen Flow Rate 2.5 04/30/24 00:00 04/30/24 01:59 04/30/24 02:20 Temperature Pulse Rate 91 85 85 Respiratory Rate 20 20 Blood Pressure Pulse Oximetry Oxygen Delivery Oxygen Flow Rate 04/30/24 04:00 04/30/24 07:23 04/30/24 07:23 Temperature Pulse Rate 82 77 Respiratory Rate 20 Blood Pressure Pulse Oximetry 99 Oxygen Delivery Nasal Cannula Oxygen Flow Rate 1 04/30/24 07:35 04/30/24 08:00 Temperature 99.3 F Pulse Rate 79 80 Respiratory Rate 20 20 Blood Pressure 158/59 H Pulse Oximetry 100 Oxygen Delivery Oxygen Flow Rate Intake/Output Intake/Output: Intake & Output 04/27/24 04/28/24 04/29/24 04/30/24 23:59 23:59 23:59 23:59 Intake Total 1745 2757.5 3239.5 1092.5 Output Total 3500 3898 2335 1095 Balance 1755 -1917.5 904.5 -2.5 Meds/Results Medications: Active Medications Generic Name Dose Route Start Last Admin Trade Name Freq PRN Reason Stop Dose Admin Acetaminophen 650 mg 04/26/24 22:19 04/26/24 22:57 Acetaminophen 650 Mg Suppository RECTAL 650 mg Q6H PRN Administration Mild Pain (1-3) or Fever Alteplase, Recombinant 2 mg 04/29/24 18:20 04/29/24 21:42 Alteplase 2 Mg Vial (Cathflo) IV PUSH 2 mg ONCE PRN Administration Line Occlusion Artificial Tears 1 drop 04/27/24 08:37 Artificial Tears Ophth Soln 15 Ml Bottle EACH EYE QID PRN Dry Eye(s) Atorvastatin Calcium 20 mg 04/30/24 09:00 Atorvastatin 20 Mg Tablet BY MOUTH DAILY ROSY Dextrose 12.5 gm 04/22/24 23:06 Dextrose 50% 25 Gm/50 Ml Syringe IV PUSH PRN PRN Hypoglycemia Protocol Enoxaparin Sodium 40 mg 04/29/24 09:00 04/30/24 08:59 Enoxaparin 40 Mg/0.4 Ml Syringe SUB-Q 40 mg DAILY ROSY Administration Glucagon 1 mg 04/22/24 23:06 Glucagon For Inj 1 Mg Vial IM PRN PRN Hypoglycemia Protocol Glucose 15 gm 04/22/24 23:06 Glucose Oral Gel 15 Gm Of Glucse In 37.5 Gm Tube PO PRN PRN Hypoglycemia Protocol Hydralazine HCl 10 mg 04/25/24 08:00 04/29/24 23:17 Hydralazine Hcl 20 Mg/Ml Vial IV PUSH 10 mg Q4H PRN Administration Blood Pressure - High Fluconazole/Dextrose 100 mg in 50 mls @ 50 mls/hr 04/22/24 22:00 04/29/24 22:09 Diflucan 100 Mg/Nacl 50 Ml IVPB Infused Q24H ROSY Infusion Dextrose 1,000 mls @ 100 mls/hr 04/22/24 23:06 Dextrose 5% 1,000 Ml IVPB PRN PRN Hypoglycemia Protocol Dextrose 1,000 mls @ 50 mls/hr 04/25/24 10:46 Dextrose 10% IV CONT .Q20H PRN if PN is interrupted Multivitamins 2.5 ml/ 2,005 mls @ 50 mls/hr 04/25/24 12:00 04/29/24 15:42 Multivitamins 2.5 ml/ Amino IV CONT 50 mls/hr Acids/Dextrose .Q24H ROSY Administration Protocol Fat Emulsion Intravenous 250 mls @ 20.833 mls/hr 04/25/24 12:00 04/30/24 04:00 Lipids 20% IVPB Infused Q24H ROSY Infusion Piperacillin/Tazobactam/Dextrose 3.375 gm in 50 mls @ 100 mls/hr 04/28/24 12:00 04/30/24 05:45 Zosyn 3.375 Gm/Ns 50 Ml IVPB 100 mls/hr Q6HR ROSY Administration Multivitamins 1.25 ml/ 1,002.5 mls @ 50 mls/hr 05/01/24 12:00 Multivitamins 1.25 ml/ Amino IV CONT Acids/Electrolytes/Dextrose .Q20H3M ROSY Dextrose 1,000 mls @ 50 mls/hr 04/30/24 08:35 Dextrose 5% 1,000 Ml IV CONT .Q20H ROSY Potassium Chloride 40 meq/ 520 mls @ 130 mls/hr 04/30/24 08:45 Sodium Chloride IVPB 04/30/24 12:44 ONCE ONE Ipratropium [place] 0.5 mg 04/23/24 14:00 04/30/24 07:23 Ipratropium Br 0.02% Inh Soln 0.5 Mg/2.5 Ml Vial INHALATION 0.5 mg Q6HRT ROSY Administration Levalbuterol HCl 0.63 mg 04/23/24 14:00 04/30/24 07:23 Levalbuterol Neb 1.25 Mg/3 Ml INHALATION 0.63 mg Q6HRT ROSY Administration Lidocaine 1 patch 04/27/24 16:35 04/30/24 08:59 Lidocaine 5% Patch TRANSDERM 1 patch DAILY ROSY Administration Lorazepam 0.5 mg 04/27/24 19:01 04/30/24 02:29 Lorazepam Inj (*Crx) 2 Mg/Ml Vial IV PUSH 0.5 mg HS PRN Administration Sleep Metoclopramide HCl 10 mg 04/28/24 12:00 04/30/24 05:44 Metoclopramide Hcl Inj 10 Mg/2 Ml Vial IV PUSH 10 mg Q6HR ROSY Administration Morphine Sulfate 4 mg 04/22/24 22:02 04/30/24 08:57 Morphine Sulfate (*Crx) 4 Mg/Ml Inj IV PUSH 4 mg Q3H PRN Administration Pain Rated 7-10 Pantoprazole Sodium 40 mg 04/26/24 21:00 04/30/24 08:59 Pantoprazole Sodium Iv 40 Mg Vial IV PUSH 40 mg Q12HR ROSY Administration Sodium Chloride 10 ml 04/23/24 14:00 04/30/24 05:25 Central Line Flush IV PUSH 10 ml Q8HR ROSY Administration Sodium Chloride 20 ml 04/23/24 10:16 Central Line Flush IV PUSH PRN PRN after blood draws Radiology Results: ITS Impressions Chest/Abdomen/Pelvis CTA 04/22/24 18:10 IMPRESSION: Perforated viscus with a large amount of free air and fluid, with mural thickening in the distal stomach and multiple punctate foci of extraluminal air in this area for which site of perforation is suspected. Renal Ultrasound 04/24/24 11:58 IMPRESSION: Simple cyst in the left kidney upper pole. Other appearances are unremarkable. Chest X-Ray 04/28/24 13:44 IMPRESSION: Bilateral basal atelectasis versus pneumonia with possible effusion. Underlying pulmonary edema is not excluded. Upper GI Series 04/28/24 16:58 IMPRESSION: 1. Likely locally contained exophytic mucosal leakage of contrast at the gastric antrum at the site of a reported repair ulcer. The irregular margins and absence of more diffuse distribution of the contrast with no contrast extending along the adjacent drainage catheters suggests that this likely remains confined by a reported omental patch. Definitive determination is required would consider repeat contrast contrast injection into the gastrostomy tube with subsequent CT imaging. Labs Labs: Laboratory Results - last 24 hr 04/29/24 04/29/24 04/29/24 05:27 11:06 16:28 WBC RBC Hgb Hct MCV MCH MCHC RDW Plt Count MPV Immature Gran % (Auto) Neut % (Auto) Lymph % (Auto) [place] % (Auto) Eos % (Auto) Baso % (Auto) Lymph # (Auto) [place] # (Auto) Eos # (Auto) Baso # (Auto) Abs Immat Gran (auto) Absolute Neuts (auto) Absolute Nucleated RBC Nucleated RBC % Sodium 144 Potassium 3.4 Chloride 109 H Carbon Dioxide 26 Anion Gap 9 BUN 57 H Creatinine 1.54 H Estim Creat Clear Calc 50 Estimated GFR 44 L Glucose 136 H POC Capillary Glucose 122 H Calcium 8.6 Phosphorus Magnesium Cancelled Triglycerides 04/29/24 04/29/24 04/30/24 18:11 19:39 04:19 WBC 14.8 H RBC 3.79 L Hgb 11.1 L Hct 34.6 L MCV 91.3 MCH 29.3 MCHC 32.1 RDW 14.6 H Plt Count 191 MPV 12.3 H Immature Gran % (Auto) 5.4 H Neut % (Auto) 79.5 H Lymph % (Auto) 4.7 L [place] % (Auto) 6.5 Eos % (Auto) 3.4 Baso % (Auto) 0.5 Lymph # (Auto) 0.70 L [place] # (Auto) 1.0 H Eos # (Auto) 0.5 H Baso # (Auto) 0.1 Abs Immat Gran (auto) 0.80 H Absolute Neuts (auto) 11.8 H Absolute Nucleated RBC 0.000 Nucleated RBC % 0.0 Sodium Potassium Chloride Carbon Dioxide Anion Gap BUN Creatinine Estim Creat Clear Calc Estimated GFR Glucose POC Capillary Glucose 122 H 129 H Calcium Phosphorus Magnesium Triglycerides 04/30/24 04:20 WBC RBC Hgb Hct MCV MCH MCHC RDW Plt Count MPV Immature Gran % (Auto) Neut % (Auto) Lymph % (Auto) [place] % (Auto) Eos % (Auto) Baso % (Auto) Lymph # (Auto) [place] # (Auto) Eos # (Auto) Baso # (Auto) Abs Immat Gran (auto) Absolute Neuts (auto) Absolute Nucleated RBC Nucleated RBC % Sodium 143 Potassium 3.2 L Chloride 109 H Carbon Dioxide 24 Anion Gap 10 BUN 51 H Creatinine 1.61 H Estim Creat Clear Calc 48 Estimated GFR 42 L Glucose 144 H POC Capillary Glucose Calcium 8.3 L Phosphorus 2.7 Magnesium 1.7 Triglycerides 216 H
--- NOTE | 2024-04-30 10:54 | P.PNGS_ITS ---
Progress Note: A&P Assessment and Plan (1) Perforated abdominal viscus: Code(s): R19.8 - Other specified symptoms and signs involving the digestive system and abdomen Status: Acute Assessment and Plan: small contained leak on upper GI, continue bowel rest and NG tube decompression, repeat upper GI next week, continue drains and antibiotics (2) Malnutrition following gastrointestinal surgery: Code(s): K91.2 - Postsurgical malabsorption, not elsewhere classified Status: Acute Assessment and Plan: continue TPN for now Subjective Subjective Date/Time Seen: 04/30/24 10:54 Interval history: no acute issues, some incisional pain, G tube with bilious drainage Review of Systems Review of Systems: All systems reviewed & are unremarkable except as noted in HPI and below Exam Const: General: cooperative, comfortable, no acute distress, ill appearing and obese Resp: Auscultation: clear to auscultation bilaterally Cardio: Rate: regular rate Rhythm: regular rhythm GI: Inspection: distended, incision and obesity GI Palp: Yes abdominal tenderness, Yes Soft to palpation, No Guarding due to palpation present (GI) and No Rigid due to palpation Other: G tube with bilious drainage, ELSA x2 with serous drainage (no bile) Objective Data Vital Signs Vital Signs: Vital Signs - 24 hr 04/29/24 12:00 04/29/24 13:48 04/29/24 13:59 Temperature Pulse Rate 75 75 79 Respiratory Rate 20 20 Blood Pressure Pulse Oximetry Oxygen Delivery Oxygen Flow Rate 04/29/24 16:00 04/29/24 16:00 04/29/24 19:39 Temperature 37.1 C Pulse Rate 75 82 85 Respiratory Rate 18 20 Blood Pressure 162/63 H Pulse Oximetry 100 Oxygen Delivery Oxygen Flow Rate 04/29/24 19:50 04/29/24 20:00 04/29/24 20:00 Temperature Pulse Rate 85 86 Respiratory Rate 20 Blood Pressure Pulse Oximetry 98 Oxygen Delivery Nasal Cannula Oxygen Flow Rate 2 04/29/24 20:30 04/29/24 21:26 04/30/24 00:00 Temperature 36.6 C 36.6 C Pulse Rate 83 85 82 Respiratory Rate 18 18 Blood Pressure 184/78 H 161/73 H Pulse Oximetry 100 100 100 Oxygen Delivery Nasal Cannula Oxygen Flow Rate 2.5 04/30/24 00:00 04/30/24 01:59 04/30/24 02:20 Temperature Pulse Rate 91 85 85 Respiratory Rate 20 20 Blood Pressure Pulse Oximetry Oxygen Delivery Oxygen Flow Rate 04/30/24 04:00 04/30/24 07:23 04/30/24 07:23 Temperature Pulse Rate 82 77 Respiratory Rate 20 Blood Pressure Pulse Oximetry 99 Oxygen Delivery Nasal Cannula Oxygen Flow Rate 1 04/30/24 07:35 04/30/24 08:00 Temperature 37.4 C Pulse Rate 79 80 Respiratory Rate 20 20 Blood Pressure 158/59 H Pulse Oximetry 100 Oxygen Delivery Oxygen Flow Rate Intake/Output Intake/Output: Intake & Output 04/27/24 04/28/24 04/29/24 04/30/24 23:59 23:59 23:59 23:59 Intake Total 1745 2757.5 3239.5 1092.5 Output Total 3500 4675 2335 1095 Balance -1755 -1917.5 904.5 -2.5 Meds/Results Medications: Active Medications Generic Name Dose Route Start Last Admin Trade Name Freq PRN Reason Stop Dose Admin Acetaminophen 650 mg 04/26/24 22:19 04/26/24 22:57 Acetaminophen 650 Mg Suppository RECTAL 650 mg Q6H PRN Administration Mild Pain (1-3) or Fever Alteplase, Recombinant 2 mg 04/29/24 18:20 04/29/24 21:42 Alteplase 2 Mg Vial (Cathflo) IV PUSH 2 mg ONCE PRN Administration Line Occlusion Artificial Tears 1 drop 04/27/24 08:37 Artificial Tears Ophth Soln 15 Ml Bottle EACH EYE QID PRN Dry Eye(s) Atorvastatin Calcium 20 mg 04/30/24 09:00 Atorvastatin 20 Mg Tablet BY MOUTH DAILY ROSY Dextrose 12.5 gm 04/22/24 23:06 Dextrose 50% 25 Gm/50 Ml Syringe IV PUSH PRN PRN Hypoglycemia Protocol Enoxaparin Sodium 40 mg 04/29/24 09:00 04/30/24 08:59 Enoxaparin 40 Mg/0.4 Ml Syringe SUB-Q 40 mg DAILY ROSY Administration Glucagon 1 mg 04/22/24 23:06 Glucagon For Inj 1 Mg Vial IM PRN PRN Hypoglycemia Protocol Glucose 15 gm 04/22/24 23:06 Glucose Oral Gel 15 Gm Of Glucse In 37.5 Gm Tube PO PRN PRN Hypoglycemia Protocol Hydralazine HCl 10 mg 04/25/24 08:00 04/29/24 23:17 Hydralazine Hcl 20 Mg/Ml Vial IV PUSH 10 mg Q4H PRN Administration Blood Pressure - High Fluconazole/Dextrose 100 mg in 50 mls @ 50 mls/hr 04/22/24 22:00 04/29/24 22:09 Diflucan 100 Mg/Nacl 50 Ml IVPB Infused Q24H ROSY Infusion Dextrose 1,000 mls @ 100 mls/hr 04/22/24 23:06 Dextrose 5% 1,000 Ml IVPB PRN PRN Hypoglycemia Protocol Dextrose 1,000 mls @ 50 mls/hr 04/25/24 10:46 Dextrose 10% IV CONT .Q20H PRN if PN is interrupted Multivitamins 2.5 ml/ 2,005 mls @ 50 mls/hr 04/25/24 12:00 04/29/24 15:42 Multivitamins 2.5 ml/ Amino IV CONT 50 mls/hr Acids/Dextrose .Q24H ROSY Administration Protocol Fat Emulsion Intravenous 250 mls @ 20.833 mls/hr 04/25/24 12:00 04/30/24 04:00 Lipids 20% IVPB Infused Q24H ROSY Infusion Piperacillin/Tazobactam/Dextrose 3.375 gm in 50 mls @ 100 mls/hr 04/28/24 12:00 04/30/24 05:45 Zosyn 3.375 Gm/Ns 50 Ml IVPB 100 mls/hr Q6HR ROSY Administration Multivitamins 1.25 ml/ 1,002.5 mls @ 50 mls/hr 05/01/24 12:00 Multivitamins 1.25 ml/ Amino IV CONT Acids/Electrolytes/Dextrose .Q20H3M ROSY Dextrose 1,000 mls @ 50 mls/hr 04/30/24 08:35 Dextrose 5% 1,000 Ml IV CONT .Q20H ROSY Potassium Chloride 40 meq/ 520 mls @ 130 mls/hr 04/30/24 08:45 Sodium Chloride IVPB 04/30/24 12:44 ONCE ONE Ipratropium [place] 0.5 mg 04/23/24 14:00 04/30/24 07:23 Ipratropium Br 0.02% Inh Soln 0.5 Mg/2.5 Ml Vial INHALATION 0.5 mg Q6HRT ROSY Administration Levalbuterol HCl 0.63 mg 04/23/24 14:00 04/30/24 07:23 Levalbuterol Neb 1.25 Mg/3 Ml INHALATION 0.63 mg Q6HRT ROSY Administration Lidocaine 1 patch 04/27/24 16:35 04/30/24 08:59 Lidocaine 5% Patch TRANSDERM 1 patch DAILY ROSY Administration Lorazepam 0.5 mg 04/27/24 19:01 04/30/24 02:29 Lorazepam Inj (*Crx) 2 Mg/Ml Vial IV PUSH 0.5 mg HS PRN Administration Sleep Metoclopramide HCl 10 mg 04/28/24 12:00 04/30/24 05:44 Metoclopramide Hcl Inj 10 Mg/2 Ml Vial IV PUSH 10 mg Q6HR ROSY Administration Morphine Sulfate 4 mg 04/22/24 22:02 04/30/24 08:57 Morphine Sulfate (*Crx) 4 Mg/Ml Inj IV PUSH 4 mg Q3H PRN Administration Pain Rated 7-10 Pantoprazole Sodium 40 mg 04/26/24 21:00 04/30/24 08:59 Pantoprazole Sodium Iv 40 Mg Vial IV PUSH 40 mg Q12HR ROSY Administration Sodium Chloride 10 ml 04/23/24 14:00 04/30/24 05:25 Central Line Flush IV PUSH 10 ml Q8HR ROSY Administration Sodium Chloride 20 ml 04/23/24 10:16 Central Line Flush IV PUSH PRN PRN after blood draws Radiology Results: ITS Impressions Chest/Abdomen/Pelvis CTA 04/22/24 18:10 IMPRESSION: Perforated viscus with a large amount of free air and fluid, with mural thickening in the distal stomach and multiple punctate foci of extraluminal air in this area for which site of perforation is suspected. Renal Ultrasound 04/24/24 11:58 IMPRESSION: Simple cyst in the left kidney upper pole. Other appearances are unremarkable. Chest X-Ray 04/28/24 13:44 IMPRESSION: Bilateral basal atelectasis versus pneumonia with possible effusion. Underlying pulmonary edema is not excluded. Upper GI Series 04/28/24 16:58 IMPRESSION: 1. Likely locally contained exophytic mucosal leakage of contrast at the gastric antrum at the site of a reported repair ulcer. The irregular margins and absence of more diffuse distribution of the contrast with no contrast extending along the adjacent drainage catheters suggests that this likely remains confined by a reported omental patch. Definitive determination is required would consider repeat contrast contrast injection into the gastrostomy tube with subsequent CT imaging. Labs Labs: Laboratory Results - last 24 hr 04/29/24 04/29/24 04/29/24 11:06 16:28 18:11 WBC RBC Hgb Hct MCV MCH MCHC RDW Plt Count MPV Immature Gran % (Auto) Neut % (Auto) Lymph % (Auto) [place] % (Auto) Eos % (Auto) Baso % (Auto) Lymph # (Auto) [place] # (Auto) Eos # (Auto) Baso # (Auto) Abs Immat Gran (auto) Absolute Neuts (auto) Absolute Nucleated RBC Nucleated RBC % Sodium 144 Potassium 3.4 Chloride 109 H Carbon Dioxide 26 Anion Gap 9 BUN 57 H Creatinine 1.54 H Estim Creat Clear Calc 50 Estimated GFR 44 L Glucose 136 H POC Capillary Glucose 122 H 122 H Calcium 8.6 Phosphorus Magnesium Triglycerides 04/29/24 04/30/24 04/30/24 19:39 04:19 04:20 WBC 14.8 H RBC 3.79 L Hgb 11.1 L Hct 34.6 L MCV 91.3 MCH 29.3 MCHC 32.1 RDW 14.6 H Plt Count 191 MPV 12.3 H Immature Gran % (Auto) 5.4 H Neut % (Auto) 79.5 H Lymph % (Auto) 4.7 L [place] % (Auto) 6.5 Eos % (Auto) 3.4 Baso % (Auto) 0.5 Lymph # (Auto) 0.70 L [place] # (Auto) 1.0 H Eos # (Auto) 0.5 H Baso # (Auto) 0.1 Abs Immat Gran (auto) 0.80 H Absolute Neuts (auto) 11.8 H Absolute Nucleated RBC 0.000 Nucleated RBC % 0.0 Sodium 143 Potassium 3.2 L Chloride 109 H Carbon Dioxide 24 Anion Gap 10 BUN 51 H Creatinine 1.61 H Estim Creat Clear Calc 48 Estimated GFR 42 L Glucose 144 H POC Capillary Glucose 129 H Calcium 8.3 L Phosphorus 2.7 Magnesium 1.7 Triglycerides 216 H
[2024-04-30 11:12] LABS: Glucose Point of Care 136 mg/dl (65-105)
[2024-04-30] MEDS: POTASSIUM CHLORIDE INJ 40 MEQ in SODIUM CHLORIDE 0.9% IV 500 ML 130 MEQ IVPB (12:32)
[2024-04-30] MEDS: DEXTROSE 5% 1,000 ML 1,000 ML 50 ML IV CONT (12:32)
[2024-04-30] MEDS: AMINO ACIDS 5%/DEXTROSE 15% 2,000 ML with MULTIVITAMINS-12 INJ VIAL 1 2.5 ML, MULTIVITA... 50 ML IV CONT (14:25)
[2024-04-30] MEDS: FAT EMULSIONS IV 20% 250 ML 20.83 ML IVPB (14:26)
[2024-04-30 16:48] LABS: Anion Gap 8 mmol/L (4-12); Blood Urea Nitrogen 48 mg/dL (9-20); Calcium 8.3 mg/dL (8.4-10.2); Carbon Dioxide 24 mmol/L (22-30); Chloride 110 mmol/L (98-107); Estimated CRCL calculation 52 ml/min; Estimated Glomerular Filt Rate 46; Glucose 109 mg/dL (65-110); Potassium 3.8 mmol/L (3.4-5.0); Sodium 142 mmol/L (137-145)
[2024-04-30 17:17] LABS: Glucose Point of Care 108 mg/dl (65-105)
[2024-04-30] MEDS: FLUCONAZOLE 100 MG/NACL 50 ML 100 MG/50 ML BTL 50 MG IVPB (21:08)
[2024-04-30] MEDS: hydrALAZINE HCL 20 MG/ML VIAL 10 MG IV PUSH (23:29)
[2024-05-01] VITALS (17 sets, daily range): BP systolic 153–189; BP diastolic 52–81; PULSE 62–93; RESP 16–20; TEMP 36.4–36.9; O2SAT 97–100
[2024-05-01 00:01] LABS: Glucose Point of Care 100 mg/dl (65-105)
[2024-05-01] MEDS: IPRATROPIUM BR 0.02% INH SOLN 0.5 MG/2.5 ML VIAL INHALATION ×4 (01:32→21:28)
[2024-05-01] MEDS: LEVALBUTEROL NEB 1.25 MG/3 ML 0.63 MG INHALATION ×4 (01:32→21:28)
[2024-05-01] MEDS: PIPERACILLN/TAZ 3.375GM/NS50ML 3.375 GM/50 ML BAG IVPB ×4 (05:30→23:06)
[2024-05-01] MEDS: METOCLOPRAMIDE HCL INJ 10 MG/2 ML VIAL IV PUSH ×4 (05:30→23:05)
[2024-05-01] MEDS: CENTRAL LINE FLUSH 10 ML IV PUSH ×3 (05:30→20:13)
[2024-05-01 05:43] LABS: Basophils Absolute Auto 0.1 K/mm3 (0.0-0.1); Basophils Percent Auto 0.5 % (0.2-1.2); Eosinophils Absolute Auto 0.4 K/mm3 (0-0.3); Eosinophils Percent Auto 2.9 % (0-4.4); Hematocrit 34.2 % (42.0-52.0); Immature Granulocyte Absolute 0.59 K/mm3 (0.00-0.031); Immature Granulocyte Percent A 3.9 % (0-0.5); Mean Corpuscular HGB Conc 32.2 g/dl (32-36); Mean Corpuscular Hemoglobin 29.6 pg (26-34); Mean Corpuscular Volume 91.9 fl (80-100); Mean Platelet Volume 12.9 fl (7.4-10.4); Monocytes Percent Auto 6.9 % (2.6-8.5); Neutrophils Absolute Auto 12.2 K/mm3 (1.3-6.7); Neutrophils Percent Auto 81.8 % (45.5-73.1); Platelet Count Result 218 k/mm3 (150-375); Red Blood Count 3.72 M/mm3 (4.6-6.20); Red Cell Distribution Width 14.7 % (11.5-14.5)
[2024-05-01 05:53] LABS: Anion Gap 8 mmol/L (4-12); Blood Urea Nitrogen 46 mg/dL (9-20); Calcium 8.4 mg/dL (8.4-10.2); Carbon Dioxide 23 mmol/L (22-30); Chloride 110 mmol/L (98-107); Estimated CRCL calculation 49 ml/min; Estimated Glomerular Filt Rate 42; Glucose 130 mg/dL (65-110); Magnesium 1.7 mg/dL (1.6-2.3); Phosphorus 2.6 mg/dL (2.5-4.5); Potassium 3.4 mmol/L (3.4-5.0); Sodium 141 mmol/L (137-145)
[2024-05-01] MEDS: LIDOCAINE 5% PATCH 1 PATCH TRANSDERM (09:33)
[2024-05-01] MEDS: ENOXAPARIN 40 MG/0.4 ML SYRINGE SUB-Q (09:33)
[2024-05-01] MEDS: MORPHINE SULFATE (*CRX) 4 MG/ML INJ IV PUSH ×5 (09:33→23:10)
[2024-05-01] MEDS: PANTOPRAZOLE SODIUM IV 40 MG VIAL IV PUSH ×2 (09:34→19:58)
--- NOTE | 2024-05-01 10:12 | P.PNIM_ITS ---
Progress Note: A&P Assessment and Plan (1) Perforated abdominal viscus: Code(s): R19.8 - Other specified symptoms and signs involving the digestive system and abdomen Status: Acute Assessment and Plan: * Post op ileus persists * Continue Zosyn * Continue supportive care (2) Malnutrition following gastrointestinal surgery: Code(s): K91.2 - Postsurgical malabsorption, not elsewhere classified Status: Acute Assessment and Plan: * Continue TPN (3) Acute kidney injury superimposed on stage 3b chronic kidney disease: Code(s): N17.9 - Acute kidney failure, unspecified; N18.32 - Chronic kidney disease, stage 3b Status: Acute Assessment and Plan: * 04/30 creatinine 1.61, . 1.6 (4) Anemia: Code(s): D64.9 - Anemia, unspecified Status: Acute Assessment and Plan: * 04/30 Hgb 11.1, 05/01/11.0 (5) Acute respiratory failure: Code(s): J96.00 - Acute respiratory failure, unspecified whether with hypoxia or hyp ercapnia Status: Acute Assessment and Plan: * 04/30 O2 1 L by NC, 05/01 on room air (6) Hypokalemia: Code(s): E87.6 - Hypokalemia Status: Acute Assessment and Plan: * 04/30 3.2, K-rider ordered * 05/01 K 3.4 (7) HTN (hypertension): Code(s): I10 - Essential (primary) hypertension Status: Acute Assessment and Plan: * 04/30 158/59, 05/01 167/52 * Continue to monitor Subjective Date/time seen: 05/01/24 10:12 Interval history: No stool or flatus. Abdominal pain improved. No opioids yet today.. Denied chest pain or sob. Overall is feeling a bit better today. Review of Systems Review of Systems: All systems reviewed & are unremarkable except as noted in HPI and below Exam Narrative: HEENT: PERRL, sclerae nonicteric, pharyngeal mucosa pink and intact NECK: No JVD CHEST: Clear to auscultation. Normal effort. HEART: NL S1/S2, regular, Soft LIZETTE RUSB ABDOMEN: BS hypoactive, protuberant but soft, mild diffuse tenderness. EXTREMITIES: No cyanosis, clubbing. Trace pitting edema of ankles. NEUROLOGIC: CN intact and symmetric to inspection. MUSCULOSKELETAL: Tone and strength symmetric. PSYCH: Alert. Oriented to person, place, time. Objective Data Vital Signs Vital Signs: Vital Signs - 24 hr 04/30/24 12:00 04/30/24 12:00 04/30/24 14:42 Temperature 97.5 F L Pulse Rate 78 77 79 Respiratory Rate 20 20 Blood Pressure 159/72 H Pulse Oximetry 99 Oxygen Delivery 04/30/24 14:58 04/30/24 16:00 04/30/24 16:00 Temperature 98.2 F Pulse Rate 79 78 83 Respiratory Rate 20 20 Blood Pressure 157/65 H Pulse Oximetry 100 Oxygen Delivery 04/30/24 19:28 04/30/24 19:28 04/30/24 19:38 Temperature Pulse Rate 83 80 Respiratory Rate 20 20 Blood Pressure Pulse Oximetry 97 Oxygen Delivery Room Air 04/30/24 20:00 04/30/24 20:00 04/30/24 23:53 Temperature 97.7 F Pulse Rate 82 87 Respiratory Rate 18 Blood Pressure 199/71 H Pulse Oximetry 100 Oxygen Delivery Room Air 05/01/24 00:00 05/01/24 01:32 05/01/24 01:37 Temperature Pulse Rate 88 91 Respiratory Rate 20 Blood Pressure 174/81 H Pulse Oximetry Oxygen Delivery 05/01/24 01:43 05/01/24 04:00 05/01/24 08:00 Temperature 98.5 F Pulse Rate 93 85 79 Respiratory Rate 20 20 Blood Pressure 167/52 H Pulse Oximetry 99 Oxygen Delivery 05/01/24 08:44 05/01/24 08:44 05/01/24 08:52 Temperature Pulse Rate 67 71 Respiratory Rate 20 20 Blood Pressure Pulse Oximetry 97 Oxygen Delivery Room Air Intake/Output Intake/Output: Intake & Output 04/28/24 04/29/24 04/30/24 05/01/24 23:59 23:59 23:59 23:59 Intake Total 2757.5 3239.5 2428.3 250 Output Total 4675 2335 2485 862 Balance -1917.5 904.5 -56.7 -612 Meds/Results Medications: Active Medications Generic Name Dose Route Start Last Admin Trade Name Freq PRN Reason Stop Dose Admin Acetaminophen 650 mg 04/26/24 22:19 04/26/24 22:57 Acetaminophen 650 Mg Suppository RECTAL 650 mg Q6H PRN Administration Mild Pain (1-3) or Fever Alteplase, Recombinant 2 mg 04/29/24 18:20 04/29/24 21:42 Alteplase 2 Mg Vial (Cathflo) IV PUSH 2 mg ONCE PRN Administration Line Occlusion Artificial Tears 1 drop 04/27/24 08:37 Artificial Tears Ophth Soln 15 Ml Bottle EACH EYE QID PRN Dry Eye(s) Atorvastatin Calcium 20 mg 04/30/24 09:00 Atorvastatin 20 Mg Tablet BY MOUTH DAILY ROSY Dextrose 12.5 gm 04/22/24 23:06 Dextrose 50% 25 Gm/50 Ml Syringe IV PUSH PRN PRN Hypoglycemia Protocol Enoxaparin Sodium 40 mg 04/29/24 09:00 05/01/24 09:33 Enoxaparin 40 Mg/0.4 Ml Syringe SUB-Q 40 mg DAILY ROSY Administration Glucagon 1 mg 04/22/24 23:06 Glucagon For Inj 1 Mg Vial IM PRN PRN Hypoglycemia Protocol Glucose 15 gm 04/22/24 23:06 Glucose Oral Gel 15 Gm Of Glucse In 37.5 Gm Tube PO PRN PRN Hypoglycemia Protocol Hydralazine HCl 10 mg 04/25/24 08:00 04/30/24 23:29 Hydralazine Hcl 20 Mg/Ml Vial IV PUSH 10 mg Q4H PRN Administration Blood Pressure - High Fluconazole/Dextrose 100 mg in 50 mls @ 50 mls/hr 04/22/24 22:00 04/30/24 21:08 Diflucan 100 Mg/Nacl 50 Ml IVPB 50 mls/hr Q24H ROSY Administration Dextrose 1,000 mls @ 100 mls/hr 04/22/24 23:06 Dextrose 5% 1,000 Ml IVPB PRN PRN Hypoglycemia Protocol Dextrose 1,000 mls @ 50 mls/hr 04/25/24 10:46 Dextrose 10% IV CONT .Q20H PRN if PN is interrupted Multivitamins 2.5 ml/ 2,005 mls @ 50 mls/hr 04/25/24 12:00 04/30/24 14:25 Multivitamins 2.5 ml/ Amino IV CONT 50 mls/hr Acids/Dextrose .Q24H ROSY Administration Protocol Fat Emulsion Intravenous 250 mls @ 20.833 mls/hr 04/25/24 12:00 04/30/24 14:26 Lipids 20% IVPB 20.83 mls/hr Q24H ROSY Administration Piperacillin/Tazobactam/Dextrose 3.375 gm in 50 mls @ 100 mls/hr 04/28/24 12: 00 05/01/24 05:30 Zosyn 3.375 Gm/Ns 50 Ml IVPB 100 mls/hr Q6HR ROSY Administration Multivitamins 1.25 ml/ 1,002.5 mls @ 50 mls/hr 05/01/24 12:00 Multivitamins 1.25 ml/ Amino IV CONT Acids/Electrolytes/Dextrose .Q20H3M ROSY Dextrose 1,000 mls @ 50 mls/hr 04/30/24 08:35 04/30/24 12:32 Dextrose 5% 1,000 Ml IV CONT 50 mls/hr .Q20H ROSY Administration Ipratropium [place] 0.5 mg 04/23/24 14:00 05/01/24 08:43 Ipratropium Br 0.02% Inh Soln 0.5 Mg/2.5 Ml Vial INHALATION 0.5 mg Q6HRT ROSY Administration Levalbuterol HCl 0.63 mg 04/23/24 14:00 05/01/24 08:43 Levalbuterol Neb 1.25 Mg/3 Ml INHALATION 0.63 mg Q6HRT ROSY Administration Lidocaine 1 patch 04/27/24 16:35 05/01/24 09:33 Lidocaine 5% Patch TRANSDERM 1 patch DAILY ROSY Administration Lorazepam 0.5 mg 04/27/24 19:01 04/30/24 21:10 Lorazepam Inj (*Crx) 2 Mg/Ml Vial IV PUSH 0.5 mg HS PRN Administration Sleep Metoclopramide HCl 10 mg 04/28/24 12:00 05/01/24 05:30 Metoclopramide Hcl Inj 10 Mg/2 Ml Vial IV PUSH 10 mg Q6HR ROSY Administration Morphine Sulfate 4 mg 04/22/24 22:02 05/01/24 09:33 Morphine Sulfate (*Crx) 4 Mg/Ml Inj IV PUSH 4 mg Q3H PRN Administration Pain Rated 7-10 Pantoprazole Sodium 40 mg 04/26/24 21:00 05/01/24 09:34 Pantoprazole Sodium Iv 40 Mg Vial IV PUSH 40 mg Q12HR ROSY Administration Sodium Chloride 10 ml 04/23/24 14:00 05/01/24 05:30 Central Line Flush IV PUSH 10 ml Q8HR ROSY Administration Sodium Chloride 20 ml 04/23/24 10:16 Central Line Flush IV PUSH PRN PRN after blood draws Radiology Results: ITS Impressions Chest/Abdomen/Pelvis CTA 04/22/24 18:10 IMPRESSION: Perforated viscus with a large amount of free air and fluid, with mural thickening in the distal stomach and multiple punctate foci of extraluminal air in this area for which site of perforation is suspected. Renal Ultrasound 04/24/24 11:58 IMPRESSION: Simple cyst in the left kidney upper pole. Other appearances are unremarkable. Upper GI Series 04/28/24 16:58 IMPRESSION: 1. Likely locally contained exophytic mucosal leakage of contrast at the gastric antrum at the site of a reported repair ulcer. The irregular margins and absence of more diffuse distribution of the contrast with no contrast extending along th e adjacent drainage catheters suggests that this likely remains confined by a reported omental patch. Definitive determination is required would consider repeat contrast contrast injection into the gastrostomy tube with subsequent CT imaging. Chest X-Ray 05/01/24 06:24 IMPRESSION: Interval increase in the left-sided pleural effusion with moderate pulmonary vascular congestion, as detailed above. Labs Labs: Laboratory Results - last 24 hr 04/30/24 04/30/24 04/30/24 11:10 16:28 17:14 WBC RBC Hgb Hct MCV MCH MCHC RDW Plt Count MPV Immature Gran % (Auto) Neut % (Auto) Lymph % (Auto) [place] % (Auto) Eos % (Auto) Baso % (Auto) Lymph # (Auto) [place] # (Auto) Eos # (Auto) Baso # (Auto) Abs Immat Gran (auto) Absolute Neuts (auto) Absolute Nucleated RBC Nucleated RBC % Sodium 142 Potassium 3.8 Chloride 110 H Carbon Dioxide 24 Anion Gap 8 BUN 48 H Creatinine 1.50 H Estim Creat Clear Calc 52 Estimated GFR 46 L Glucose 109 POC Capillary Glucose 136 H 108 H Calcium 8.3 L Phosphorus Magnesium 04/30/24 05/01/24 23:59 05:29 WBC 15.0 H RBC 3.72 L Hgb 11.0 L Hct 34.2 L MCV 91.9 MCH 29.6 MCHC 32.2 RDW 14.7 H Plt Count 218 MPV 12.9 H Immature Gran % (Auto) 3.9 H Neut % (Auto) 81.8 H Lymph % (Auto) 4.0 L [place] % (Auto) 6.9 Eos % (Auto) 2.9 Baso % (Auto) 0.5 Lymph # (Auto) 0.60 L [place] # (Auto) 1.0 H Eos # (Auto) 0.4 H Baso # (Auto) 0.1 Abs Immat Gran (auto) 0.59 H Absolute Neuts (auto) 12.2 H Absolute Nucleated RBC 0.000 Nucleated RBC % 0.0 Sodium 141 Potassium 3.4 Chloride 110 H Carbon Dioxide 23 Anion Gap 8 BUN 46 H Creatinine 1.60 H Estim Creat Clear Calc 49 Estimated GFR 42 L Glucose 130 H POC Capillary Glucose 100 Calcium 8.4 Phosphorus 2.6 Magnesium 1.7
--- NOTE | 2024-05-01 10:55 | P.PNNP_ITS ---
Progress Note: A&P Assessment and Plan (1) Acute kidney injury superimposed on stage 3b chronic kidney disease: Code(s): N17.9 - Acute kidney failure, unspecified; N18.32 - Chronic kidney disease, stage 3b Status: Acute Assessment and Plan: the patient has chronic kidney disease. His baseline creatinine is around 1.5. This is probably related to hypertension, peripheral vascular disease, and possibly chronic nonsteroidal anti-inflammatory agent use. we can evaluate this further when he recovers, possibly in the office if he needs follow-up. The patient has acute kidney injury. CT shows normal kidneys Renal sono simple cyst x 1 o/w unremarkable. Urine 'lytes are prerenal there are multiple contributing factors. diclofenac hypotension septic shock third spacing His urine output is doing well. he made 2485 cc urine yesterday. I/O are about equal He is not on diuretics. The creatinine is about the same sodium level is about the same in the normal range. He is getting TPN, the contents of which cannot be changed, and D5W 50. Potassium is good now. Chest x-ray shows a little bit of congestion. He does have a tiny bit of swelling today but he has no shortness of breath or hypoxia. Will just hold off on the D5W. Hopefully, since the kidney function seems to be improved and the urine output is better than before, he might be able to handle his sodium. Will check another BMP this afternoon and I will have the nurses call me the result. Hold off on diuretics for now. Discussed with Dr. Colby. (2) Perforated gastric ulcer: Onset Date: 04/2024 Qualifiers: Gastric ulcer chronicity: acute Qualified Code(s): K25.1 - Acute gastric ulcer with perforation Code(s): K25.5 - Chronic or unspecified gastric ulcer with perforation Status: Inactive Assessment and Plan: He had a perforated gastric ulcer, likely related to nonsteroidal anti- inflammatory agents. This was repaired in the OR and he is recovering from this. (3) Acute respiratory failure: Code(s): J96.00 - Acute respiratory failure, unspecified whether with hypoxia or hypercapnia Status: Acute Assessment and Plan: the patient is breathing on his own. Off oxygen and his O2 sats are good (4) Shock circulatory: Code(s): R57.9 - Shock, unspecified Status: Acute Assessment and Plan: Blood pressure doing well (5) Anemia: Code(s): D64.9 - Anemia, unspecified Status: Acute Assessment and Plan: hemoglobin 11.0 today (6) Acute hyperkalemia: Code(s): E87.5 - Hyperkalemia Status: Acute Assessment and Plan: His potassium is now normal (7) HTN (hypertension): Code(s): I10 - Essential (primary) hypertension Status: Acute Assessment and Plan: Blood pressure meds are on hold. Systolic pressures have been creeping up. He is on hydralazine p.r.n. for blood pressures. Will start a clonidine patch (8) Hypercholesterolemia: Code(s): E78.00 - Pure hypercholesterolemia, unspecified Status: Acute Assessment and Plan: atorvastatin is on hold Subjective Date/time seen: 05/01/24 10:55 Interval history: Patient is feeling about the same. No shortness of breath No chest pain He is passing a little Exam Narrative: WDWN male resting comfortably in bed in NAD Neuro alert and interactive skin no rash or subcu nodules head ncat lungs clear to auscultation cor reg no rub abd BS more active diffusely ext trace bilateral edema. Objective Data Vital Signs Vital Signs: Vital Signs - 24 hr 04/30/24 12:00 04/30/24 12:00 04/30/24 14:42 Temperature 97.5 F L Pulse Rate 78 77 79 Respiratory Rate 20 20 Blood Pressure 159/72 H Pulse Oximetry 99 Oxygen Delivery 04/30/24 14:58 04/30/24 16:00 04/30/24 16:00 Temperature 98.2 F Pulse Rate 79 78 83 Respiratory Rate 20 20 Blood Pressure 157/65 H Pulse Oximetry 100 Oxygen Delivery 04/30/24 19:28 04/30/24 19:28 04/30/24 19:38 Temperature Pulse Rate 83 80 Respiratory Rate 20 20 Blood Pressure Pulse Oximetry 97 Oxygen Delivery Room Air 04/30/24 20:00 04/30/24 20:00 04/30/24 23:53 Temperature 97.7 F Pulse Rate 82 87 Respiratory Rate 18 Blood Pressure 199/71 H Pulse Oximetry 100 Oxygen Delivery Room Air 05/01/24 00:00 05/01/24 01:32 05/01/24 01:37 Temperature Pulse Rate 88 91 Respiratory Rate 20 Blood Pressure 174/81 H Pulse Oximetry Oxygen Delivery 05/01/24 01:43 05/01/24 04:00 05/01/24 08:00 Temperature 98.5 F Pulse Rate 93 85 79 Respiratory Rate 20 20 Blood Pressure 167/52 H Pulse Oximetry 99 Oxygen Delivery 05/01/24 08:44 05/01/24 08:44 05/01/24 08:52 Temperature Pulse Rate 67 71 Respiratory Rate 20 20 Blood Pressure Pulse Oximetry 97 Oxygen Delivery Room Air Intake/Output Intake/Output: Intake & Output 04/28/24 04/29/24 04/30/24 05/01/24 23:59 23:59 23:59 23:59 Intake Total 2757.5 3239.5 2428.3 250 Output Total 4675 2335 2485 862 Balance -1917.5 904.5 -56.7 -612 Meds/Results Medications: Active Medications Generic Name Dose Route Start Last Admin Trade Name Freq PRN Reason Stop Dose Admin Acetaminophen 650 mg 04/26/24 22:19 04/26/24 22:57 Acetaminophen 650 Mg Suppository RECTAL 650 mg Q6H PRN Administration Mild Pain (1-3) or Fever Alteplase, Recombinant 2 mg 04/29/24 18:20 04/29/24 21:42 Alteplase 2 Mg Vial (Cathflo) IV PUSH 2 mg ONCE PRN Administration Line Occlusion Artificial Tears 1 drop 04/27/24 08:37 Artificial Tears Ophth Soln 15 Ml Bottle EACH EYE QID PRN Dry Eye(s) Atorvastatin Calcium 20 mg 04/30/24 09:00 Atorvastatin 20 Mg Tablet BY MOUTH DAILY ROSY Dextrose 12.5 gm 04/22/24 23:06 Dextrose 50% 25 Gm/50 Ml Syringe IV PUSH PRN PRN Hypoglycemia Protocol Enoxaparin Sodium 40 mg 04/29/24 09:00 05/01/24 09:33 Enoxaparin 40 Mg/0.4 Ml Syringe SUB-Q 40 mg DAILY ROSY Administration Glucagon 1 mg 04/22/24 23:06 Glucagon For Inj 1 Mg Vial IM PRN PRN Hypoglycemia Protocol Glucose 15 gm 04/22/24 23:06 Glucose Oral Gel 15 Gm Of Glucse In 37.5 Gm Tube PO PRN PRN Hypoglycemia Protocol Hydralazine HCl 10 mg 04/25/24 08:00 04/30/24 23:29 Hydralazine Hcl 20 Mg/Ml Vial IV PUSH 10 mg Q4H PRN Administration Blood Pressure - High Fluconazole/Dextrose 100 mg in 50 mls @ 50 mls/hr 04/22/24 22:00 04/30/24 21:08 Diflucan 100 Mg/Nacl 50 Ml IVPB 50 mls/hr Q24H ROSY Administration Dextrose 1,000 mls @ 100 mls/hr 04/22/24 23:06 Dextrose 5% 1,000 Ml IVPB PRN PRN Hypoglycemia Protocol Dextrose 1,000 mls @ 50 mls/hr 04/25/24 10:46 Dextrose 10% IV CONT .Q20H PRN if PN is interrupted Multivitamins 2.5 ml/ 2,005 mls @ 50 mls/hr 04/25/24 12:00 04/30/24 14:25 Multivitamins 2.5 ml/ Amino IV CONT 50 mls/hr Acids/Dextrose .Q24H ROSY Administration Protocol Fat Emulsion Intravenous 250 mls @ 20.833 mls/hr 04/25/24 12:00 04/30/24 14:26 Lipids 20% IVPB 20.83 mls/hr Q24H ROSY Administration Piperacillin/Tazobactam/Dextrose 3.375 gm in 50 mls @ 100 mls/hr 04/28/24 12:00 05/01/24 05:30 Zosyn 3.375 Gm/Ns 50 Ml IVPB 100 mls/hr Q6HR ROSY Administration Multivitamins 1.25 ml/ 1,002.5 mls @ 50 mls/hr 05/01/24 12:00 Multivitamins 1.25 ml/ Amino IV CONT Acids/Electrolytes/Dextrose .Q20H3M ROSY Dextrose 1,000 mls @ 50 mls/hr 04/30/24 08:35 04/30/24 12:32 Dextrose 5% 1,000 Ml IV CONT 50 mls/hr .Q20H ROSY Administration Ipratropium [place] 0.5 mg 04/23/24 14:00 05/01/24 08:43 Ipratropium Br 0.02% Inh Soln 0.5 Mg/2.5 Ml Vial INHALATION 0.5 mg Q6HRT ROSY Administration Levalbuterol HCl 0.63 mg 04/23/24 14:00 05/01/24 08:43 Levalbuterol Neb 1.25 Mg/3 Ml INHALATION 0.63 mg Q6HRT ROSY Administration Lidocaine 1 patch 04/27/24 16:35 05/01/24 09:33 Lidocaine 5% Patch TRANSDERM 1 patch DAILY ROSY Administration Lorazepam 0.5 mg 04/27/24 19:01 04/30/24 21:10 Lorazepam Inj (*Crx) 2 Mg/Ml Vial IV PUSH 0.5 mg HS PRN Administration Sleep Metoclopramide HCl 10 mg 04/28/24 12:00 05/01/24 05:30 Metoclopramide Hcl Inj 10 Mg/2 Ml Vial IV PUSH 10 mg Q6HR ROSY Administration Morphine Sulfate 4 mg 04/22/24 22:02 05/01/24 09:33 Morphine Sulfate (*Crx) 4 Mg/Ml Inj IV PUSH 4 mg Q3H PRN Administration Pain Rated 7-10 Pantoprazole Sodium 40 mg 04/26/24 21:00 05/01/24 09:34 Pantoprazole Sodium Iv 40 Mg Vial IV PUSH 40 mg Q12HR ROSY Administration Sodium Chloride 10 ml 04/23/24 14:00 05/01/24 05:30 Central Line Flush IV PUSH 10 ml Q8HR ROSY Administration Sodium Chloride 20 ml 04/23/24 10:16 Central Line Flush IV PUSH PRN PRN after blood draws Radiology Results: ITS Impressions Chest/Abdomen/Pelvis CTA 04/22/24 18:10 IMPRESSION: Perforated viscus with a large amount of free air and fluid, with mural thickening in the distal stomach and multiple punctate foci of extraluminal air in this area for which site of perforation is suspected. Renal Ultrasound 04/24/24 11:58 IMPRESSION: Simple cyst in the left kidney upper pole. Other appearances are unremarkable. Upper GI Series 04/28/24 16:58 IMPRESSION: 1. Likely locally contained exophytic mucosal leakage of contrast at the gastric antrum at the site of a reported repair ulcer. The irregular margins and absence of more diffuse distribution of the contrast with no contrast extending along the adjacent drainage catheters suggests that this likely remains confined by a reported omental patch. Definitive determination is required would consider repeat contrast contrast injection into the gastrostomy tube with subsequent CT imaging. Chest X-Ray 05/01/24 06:24 IMPRESSION: Interval increase in the left-sided pleural effusion with moderate pulmonary vascular congestion, as detailed above. Labs Labs: Laboratory Results - last 24 hr 04/30/24 04/30/24 04/30/24 11:10 16:28 17:14 WBC RBC Hgb Hct MCV MCH MCHC RDW Plt Count MPV Immature Gran % (Auto) Neut % (Auto) Lymph % (Auto) [place] % (Auto) Eos % (Auto) Baso % (Auto) Lymph # (Auto) [place] # (Auto) Eos # (Auto) Baso # (Auto) Abs Immat Gran (auto) Absolute Neuts (auto) Absolute Nucleated RBC Nucleated RBC % Sodium 142 Potassium 3.8 Chloride 110 H Carbon Dioxide 24 Anion Gap 8 BUN 48 H Creatinine 1.50 H Estim Creat Clear Calc 52 Estimated GFR 46 L Glucose 109 POC Capillary Glucose 136 H 108 H Calcium 8.3 L Phosphorus Magnesium 04/30/24 05/01/24 23:59 05:29 WBC 15.0 H RBC 3.72 L Hgb 11.0 L Hct 34.2 L MCV 91.9 MCH 29.6 MCHC 32.2 RDW 14.7 H Plt Count 218 MPV 12.9 H Immature Gran % (Auto) 3.9 H Neut % (Auto) 81.8 H Lymph % (Auto) 4.0 L [place] % (Auto) 6.9 Eos % (Auto) 2.9 Baso % (Auto) 0.5 Lymph # (Auto) 0.60 L [place] # (Auto) 1.0 H Eos # (Auto) 0.4 H Baso # (Auto) 0.1 Abs Immat Gran (auto) 0.59 H Absolute Neuts (auto) 12.2 H Absolute Nucleated RBC 0.000 Nucleated RBC % 0.0 Sodium 141 Potassium 3.4 Chloride 110 H Carbon Dioxide 23 Anion Gap 8 BUN 46 H Creatinine 1.60 H Estim Creat Clear Calc 49 Estimated GFR 42 L Glucose 130 H POC Capillary Glucose 100 Calcium 8.4 Phosphorus 2.6 Magnesium 1.7
[2024-05-01] MEDS: cloNIDine 0.1 MG/24 HR PATCH 1 PATCH TRANSDERM (11:36)
[2024-05-01 12:06] LABS: Glucose Point of Care 138 mg/dl (65-105)
--- NOTE | 2024-05-01 12:43 | PM.PNGS ---
Progress Note: A&P Assessment and Plan (1) Perforated abdominal viscus: Code(s): R19.8 - Other specified symptoms and signs involving the digestive system and abdomen Status: Acute Assessment and Plan: exam largely benign, cont G tube decompression and bowel rest, ELSA x 2 c no bilious drainage, cont abx, PT/OT, plan for repeat UGI early next wk (2) Malnutrition following gastrointestinal surgery: Code(s): K91.2 - Postsurgical malabsorption, not elsewhere classified Status: Acute Assessment and Plan: cont TPN Subjective Subjective Date/Time Seen: 05/01/24 12:43 Interval history: no acute issues, feels ok Review of Systems Review of Systems: All systems reviewed & are unremarkable except as noted in HPI and below Exam Const: General: cooperative, comfortable and no acute distress Resp: Auscultation: diminished lung sounds Cardio: Rate: regular rate Rhythm: regular rhythm GI: Inspection: normal to inspection and distended GI Palp: Yes abdominal tenderness and Yes Soft to palpation Other: ELSA x 2 c serous drainage, G tube c bilious output Objective Data Vital Signs Vital Signs: Vital Signs - 24 hr 04/30/24 14:42 04/30/24 14:58 04/30/24 16:00 Temperature 36.8 C Pulse Rate 79 79 78 Respiratory Rate 20 20 20 Blood Pressure 157/65 H Pulse Oximetry 100 Oxygen Delivery 04/30/24 16:00 04/30/24 19:28 04/30/24 19:28 Temperature Pulse Rate 83 83 Respiratory Rate 20 Blood Pressure Pulse Oximetry 97 Oxygen Delivery Room Air 04/30/24 19:38 04/30/24 20:00 04/30/24 20:00 Temperature Pulse Rate 80 82 Respiratory Rate 20 Blood Pressure Pulse Oximetry Oxygen Delivery Room Air 04/30/24 23:53 05/01/24 00:00 05/01/24 01:32 Temperature 36.5 C Pulse Rate 87 88 91 Respiratory Rate 18 20 Blood Pressure 199/71 H Pulse Oximetry 100 Oxygen Delivery 05/01/24 01:37 05/01/24 01:43 05/01/24 04:00 Temperature Pulse Rate 93 85 Respiratory Rate 20 Blood Pressure 174/81 H Pulse Oximetry Oxygen Delivery 05/01/24 08:00 05/01/24 08:00 05/01/24 08:44 Temperature 36.9 C Pulse Rate 79 78 Respiratory Rate 20 Blood Pressure 167/52 H Pulse Oximetry 99 97 Oxygen Delivery Room Air 05/01/24 08:44 05/01/24 08:52 Temperature Pulse Rate 67 71 Respiratory Rate 20 20 Blood Pressure Pulse Oximetry Oxygen Delivery Intake/Output Intake/Output: Intake & Output 04/28/24 04/29/24 04/30/24 05/01/24 23:59 23:59 23:59 23:59 Intake Total 2757.5 3239.5 2428.3 300 Output Total 4675 2335 2485 862 Balance -1917.5 904.5 -56.7 -562 Meds/Results Medications: Active Medications Generic Name Dose Route Start Last Admin Trade Name Freq PRN Reason Stop Dose Admin Acetaminophen 650 mg 04/26/24 22:19 04/26/24 22:57 Acetaminophen 650 Mg Suppository RECTAL 650 mg Q6H PRN Administration Mild Pain (1-3) or Fever Alteplase, Recombinant 2 mg 04/29/24 18:20 04/29/24 21:42 Alteplase 2 Mg Vial (Cathflo) IV PUSH 2 mg ONCE PRN Administration Line Occlusion Artificial Tears 1 drop 04/27/24 08:37 Artificial Tears Ophth Soln 15 Ml Bottle EACH EYE QID PRN Dry Eye(s) Atorvastatin Calcium 20 mg 04/30/24 09:00 Atorvastatin 20 Mg Tablet BY MOUTH DAILY ROSY Clonidine HCl 1 patch 05/01/24 09:00 05/01/24 11:36 Clonidine 0.1 Mg/24 Hr Patch TRANSDERM 1 patch WEEKLY ROSY Administration Dextrose 12.5 gm 04/22/24 23:06 Dextrose 50% 25 Gm/50 Ml Syringe IV PUSH PRN PRN Hypoglycemia Protocol Enoxaparin Sodium 40 mg 04/29/24 09:00 05/01/24 09:33 Enoxaparin 40 Mg/0.4 Ml Syringe SUB-Q 40 mg DAILY ROSY Administration Glucagon 1 mg 04/22/24 23:06 Glucagon For Inj 1 Mg Vial IM PRN PRN Hypoglycemia Protocol Glucose 15 gm 04/22/24 23:06 Glucose Oral Gel 15 Gm Of Glucse In 37.5 Gm Tube PO PRN PRN Hypoglycemia Protocol Hydralazine HCl 10 mg 04/25/24 08:00 04/30/24 23:29 Hydralazine Hcl 20 Mg/Ml Vial IV PUSH 10 mg Q4H PRN Administration Blood Pressure - High Fluconazole/Dextrose 100 mg in 50 mls @ 50 mls/hr 04/22/24 22:00 04/30/24 21:08 Diflucan 100 Mg/Nacl 50 Ml IVPB 50 mls/hr Q24H ROSY Administration Dextrose 1,000 mls @ 100 mls/hr 04/22/24 23:06 Dextrose 5% 1,000 Ml IVPB PRN PRN Hypoglycemia Protocol Dextrose 1,000 mls @ 50 mls/hr 04/25/24 10:46 Dextrose 10% IV CONT .Q20H PRN if PN is interrupted Multivitamins 2.5 ml/ 2,005 mls @ 50 mls/hr 04/25/24 12:00 04/30/24 14:25 Multivitamins 2.5 ml/ Amino IV CONT 50 mls/hr Acids/Dextrose .Q24H ROSY Administration Protocol Fat Emulsion Intravenous 250 mls @ 20.833 mls/hr 04/25/24 12:00 04/30/24 14:26 Lipids 20% IVPB 20.83 mls/hr Q24H ROSY Administration Piperacillin/Tazobactam/Dextrose 3.375 gm in 50 mls @ 100 mls/hr 04/28/24 12:00 05/01/24 11:36 Zosyn 3.375 Gm/Ns 50 Ml IVPB 100 mls/hr Q6HR ROSY Administration Multivitamins 1.25 ml/ 1,002.5 mls @ 50 mls/hr 05/01/24 12:00 Multivitamins 1.25 ml/ Amino IV CONT Acids/Electrolytes/Dextrose .Q20H3M ROSY Ipratropium [place] 0.5 mg 04/23/24 14:00 05/01/24 08:43 Ipratropium Br 0.02% Inh Soln 0.5 Mg/2.5 Ml Vial INHALATION 0.5 mg Q6HRT ROSY Administration Levalbuterol HCl 0.63 mg 04/23/24 14:00 05/01/24 08:43 Levalbuterol Neb 1.25 Mg/3 Ml INHALATION 0.63 mg Q6HRT ROSY Administration Lidocaine 1 patch 04/27/24 16:35 05/01/24 09:33 Lidocaine 5% Patch TRANSDERM 1 patch DAILY ROSY Administration Lorazepam 0.5 mg 04/27/24 19:01 04/30/24 21:10 Lorazepam Inj (*Crx) 2 Mg/Ml Vial IV PUSH 0.5 mg HS PRN Administration Sleep Metoclopramide HCl 10 mg 04/28/24 12:00 05/01/24 11:36 Metoclopramide Hcl Inj 10 Mg/2 Ml Vial IV PUSH 10 mg Q6HR ROSY Administration Morphine Sulfate 4 mg 04/22/24 22:02 05/01/24 09:33 Morphine Sulfate (*Crx) 4 Mg/Ml Inj IV PUSH 4 mg Q3H PRN Administration Pain Rated 7-10 Pantoprazole Sodium 40 mg 04/26/24 21:00 05/01/24 09:34 Pantoprazole Sodium Iv 40 Mg Vial IV PUSH 40 mg Q12HR ROSY Administration Perflutren Lipid Microsphere 0 ml 05/01/24 11:01 Perflutren Lipid Microspheres 1.5 Ml Vial Diluted To 10 Ml Total Volume IV PUSH 05/04/24 11:01 ONCE PRN adequate visualization Protocol Sodium Chloride 10 ml 04/23/24 14:00 05/01/24 05:30 Central Line Flush IV PUSH 10 ml Q8HR ROSY Administration Sodium Chloride 20 ml 04/23/24 10:16 Central Line Flush IV PUSH PRN PRN after blood draws Radiology Results: ITS Impressions Chest/Abdomen/Pelvis CTA 04/22/24 18:10 IMPRESSION: Perforated viscus with a large amount of free air and fluid, with mural thickening in the distal stomach and multiple punctate foci of extraluminal air in this area for which site of perforation is suspected. Renal Ultrasound 04/24/24 11:58 IMPRESSION: Simple cyst in the left kidney upper pole. Other appearances are unremarkable. Upper GI Series 04/28/24 16:58 IMPRESSION: 1. Likely locally contained exophytic mucosal leakage of contrast at the gastric antrum at the site of a reported repair ulcer. The irregular margins and absence of more diffuse distribution of the contrast with no contrast extending along the adjacent drainage catheters suggests that this likely remains confined by a reported omental patch. Definitive determination is required would consider repeat contrast contrast injection into the gastrostomy tube with subsequent CT imaging. Chest X-Ray 05/01/24 06:24 IMPRESSION: Interval increase in the left-sided pleural effusion with moderate pulmonary vascular congestion, as detailed above. Labs Labs: Laboratory Results - last 24 hr 04/30/24 04/30/24 04/30/24 16:28 17:14 23:59 WBC RBC Hgb Hct MCV MCH MCHC RDW Plt Count MPV Immature Gran % (Auto) Neut % (Auto) Lymph % (Auto) [place] % (Auto) Eos % (Auto) Baso % (Auto) Lymph # (Auto) [place] # (Auto) Eos # (Auto) Baso # (Auto) Abs Immat Gran (auto) Absolute Neuts (auto) Absolute Nucleated RBC Nucleated RBC % Sodium 142 Potassium 3.8 Chloride 110 H Carbon Dioxide 24 Anion Gap 8 BUN 48 H Creatinine 1.50 H Estim Creat Clear Calc 52 Estimated GFR 46 L Glucose 109 POC Capillary Glucose 108 H 100 Calcium 8.3 L Phosphorus Magnesium 05/01/24 05/01/24 05:29 11:56 WBC 15.0 H RBC 3.72 L Hgb 11.0 L Hct 34.2 L MCV 91.9 MCH 29.6 MCHC 32.2 RDW 14.7 H Plt Count 218 MPV 12.9 H Immature Gran % (Auto) 3.9 H Neut % (Auto) 81.8 H Lymph % (Auto) 4.0 L [place] % (Auto) 6.9 Eos % (Auto) 2.9 Baso % (Auto) 0.5 Lymph # (Auto) 0.60 L [place] # (Auto) 1.0 H Eos # (Auto) 0.4 H Baso # (Auto) 0.1 Abs Immat Gran (auto) 0.59 H Absolute Neuts (auto) 12.2 H Absolute Nucleated RBC 0.000 Nucleated RBC % 0.0 Sodium 141 Potassium 3.4 Chloride 110 H Carbon Dioxide 23 Anion Gap 8 BUN 46 H Creatinine 1.60 H Estim Creat Clear Calc 49 Estimated GFR 42 L Glucose 130 H POC Capillary Glucose 138 H Calcium 8.4 Phosphorus 2.6 Magnesium 1.7
[2024-05-01] MEDS: FAT EMULSIONS IV 20% 250 ML 20.83 ML IVPB (14:09)
[2024-05-01] MEDS: AMINO ACIDS 5%/D15W/E-LYTES/CA 1,000 ML with MULTIVITAMINS-12 INJ VIAL 1 1.25 ML, MULTI... 50 ML IV CONT (16:28)
[2024-05-01] MEDS: FLUCONAZOLE 100 MG/NACL 50 ML 100 MG/50 ML BTL 50 MG IVPB (20:12)
[2024-05-01 20:31] LABS: Anion Gap 11 mmol/L (4-12); Blood Urea Nitrogen 43 mg/dL (9-20); Carbon Dioxide 23 mmol/L (22-30); Chloride 108 mmol/L (98-107); Estimated CRCL calculation 47 ml/min; Estimated Glomerular Filt Rate 41; Glucose 113 mg/dL (65-110); Potassium 3.6 mmol/L (3.4-5.0); Sodium 142 mmol/L (137-145)
[2024-05-01] MEDS: hydrALAZINE HCL 20 MG/ML VIAL 10 MG IV PUSH (21:59)
--- NOTE | 2024-05-01 22:17 | PC.NURSE ---
This patient, Ludin Menon, was transferred to [[id number] ] on 05/01/24 at 2218. Personal belongings sent with patient. Report given to [Franca Perez RN ]. Appropriate documentation sent with patient.
--- NOTE | 2024-05-01 22:20 | PC.NURSE ---
Transfer received from IMU. Report received from KELBY Foster.
[2024-05-01] MEDS: LORazepam INJ (*CRX) 2 MG/ML VIAL 0.5 MG IV PUSH (22:48)
[2024-05-02] VITALS (17 sets, daily range): BP systolic 143–180; BP diastolic 50–66; PULSE 72–94; RESP 16–18; TEMP 36.6–37; O2SAT 96–99
[2024-05-02 02:17] LABS: Glucose Point of Care 128 mg/dl (65-105)
[2024-05-02] MEDS: LEVALBUTEROL NEB 1.25 MG/3 ML 0.63 MG INHALATION ×4 (02:35→20:47)
[2024-05-02] MEDS: IPRATROPIUM BR 0.02% INH SOLN 0.5 MG/2.5 ML VIAL INHALATION ×4 (02:35→20:47)
[2024-05-02] MEDS: MORPHINE SULFATE (*CRX) 4 MG/ML INJ IV PUSH ×4 (03:43→23:59)
[2024-05-02] MEDS: CENTRAL LINE FLUSH 20 ML IV PUSH ×2 (04:54→22:46)
[2024-05-02 04:56] LABS: Basophils Absolute Auto 0.1 K/mm3 (0.0-0.1); Basophils Percent Auto 0.4 % (0.2-1.2); Eosinophils Absolute Auto 0.3 K/mm3 (0-0.3); Hematocrit 33.1 % (42.0-52.0); Hemoglobin 10.6 g/dL (14.0-18.0); Immature Granulocyte Absolute 0.38 K/mm3 (0.00-0.031); Immature Granulocyte Percent A 2.5 % (0-0.5); Immature Platelet Fraction Pct 12.6 % (0.9-11.2); Lymphocytes Absolute Auto 0.61 K/mm3 (0.9-3.2); Mean Corpuscular Volume 90.7 fl (80-100); Mean Platelet Volume 13.3 fl (7.4-10.4); Monocytes Absolute Auto 1.1 K/mm3 (0.1-0.6); Monocytes Percent Auto 7.4 % (2.6-8.5); Neutrophils Absolute Auto 12.8 K/mm3 (1.3-6.7); Neutrophils Percent Auto 83.7 % (45.5-73.1); Platelet Count Result 254 k/mm3 (150-375); Red Blood Count 3.65 M/mm3 (4.6-6.20); Red Cell Distribution Width 14.7 % (11.5-14.5); White Blood Count 15.3 K/mm3 (4.5-10.0)
[2024-05-02] MEDS: PIPERACILLN/TAZ 3.375GM/NS50ML 3.375 GM/50 ML BAG IVPB ×4 (04:59→23:30)
[2024-05-02] MEDS: METOCLOPRAMIDE HCL INJ 10 MG/2 ML VIAL IV PUSH ×4 (05:00→23:24)
[2024-05-02] MEDS: CENTRAL LINE FLUSH 10 ML IV PUSH ×3 (05:02→21:12)
[2024-05-02 05:06] LABS: INR 1.1; Prothrombin Time 14.9 Seconds (11.1-14.7)
[2024-05-02 05:08] LABS: Partial Thromboplastin Time 30.9 Seconds (22.3-36.8)
[2024-05-02 05:10] LABS: Alanine Aminotransferase 25 U/L (6-50); Albumin Level 3.1 g/dL (3.5-5.1); Alkaline Phosphatase 155 U/L (38-126); Anion Gap 11 mmol/L (4-12); Aspartate Amino Transferase 32 U/L (17-59); Bilirubin,Total 3.4 mg/dL (0.2-1.3); Blood Urea Nitrogen 49 mg/dL (9-20); Calcium 8.8 mg/dL (8.4-10.2); Carbon Dioxide 21 mmol/L (22-30); Chloride 110 mmol/L (98-107); Estimated CRCL calculation 43 ml/min; Estimated Glomerular Filt Rate 37; Glucose 140 mg/dL (65-110); Magnesium 1.9 mg/dL (1.6-2.3); Phosphorus 3.5 mg/dL (2.5-4.5); Potassium 3.2 mmol/L (3.4-5.0); Sodium 142 mmol/L (137-145)
[2024-05-02 05:17] LABS: Transferrin 128 mg/dL (206-381)
[2024-05-02 06:06] LABS: Glucose Point of Care 131 mg/dl (65-105)
--- NOTE | 2024-05-02 07:00 | ECHO_ITS ---
Patient Info Name: Ludin Menon Age: 78 years : 1945 Gender: Male Ht: 72 in Wt: 276 lbs BSA: 2.57 m2 HR: 77 bpm BP: 145 / 61 mmHg Technical Quality: Good Exam Date: 05/02/2024 2:14 PM Exam Location: Echo Lab Patient Status: Inpatient Admit Date: 04/22/2024 Staff Ordering Physician: Jonathan Felix MD Policy Manager: Marcia Carolina RDCS Attending Provider: Demarcus Moreno MD Referring Physician: Isidro BERUMEN; Exam Type: CA echo doppler color flow Study Info Indications - Volume overload Complete two-dimensional, color flow and Doppler transthoracic echocardiogram is performed. Summary 1. Complete two-dimensional, color flow and Doppler transthoracic echocardiogram is performed. 2. Left ventricular chamber dimension is normal. 3. Left ventricular systolic function is normal, estimated at 65-70%. 4. There is moderate concentric increased left ventricular wall thickness. 5. The left ventricular diastolic function is grade I diastolic dysfunction. 6. E/e' 10 is mildly elevated. 7. Right ventricular chamber dimension is mildly enlarged. 8. There is moderate aortic valve sclerosis. 9. The mitral valve has mildly calcified annulus. 10. No pulmonary hypertension, estimated pulmonary arterial systolic pressure is 25 mmHg. Left Ventricle E/e' 10 is mildly elevated. Left ventricular chamber dimension is normal. Left ventricular systolic function is normal, estimated at 65-70%. There is moderate concentric increased left ventricular wall thickness. The left ventricular diastolic function is grade I diastolic dysfunction. Right Ventricle Right ventricular systolic function is normal and with normal TAPSE 2.3 cm. Right ventricular chamber dimension is mildly enlarged. Left Atria Left atrial chamber dimension is normal. Right Atria Right atrial chamber dimension is normal. Aortic Valve The aortic valve is trileaflet. There is moderate aortic valve sclerosis. There is no aortic valve stenosis. There is no aortic valve regurgitation. Pulmonic Valve There is no pulmonic regurgitation. Mitral Valve The mitral valve has mildly calcified annulus. There is no mitral valve stenosis. There is no mitral valve regurgitation. Tricuspid Valve There is no tricuspid valve regurgitation. No pulmonary hypertension, estimated pulmonary arterial systolic pressure is 25 mmHg. Pericardium/Pleural There is no pericardial effusion. Inferior Vena Cava Inferior vena cava is not well visualized. Aorta The aortic root size at the sinus of Valsalva is normal. Left Ventricular Outflow Tract Name Value Normal LVOT 2D LVOT Diameter 2.0 cm LVOT Doppler LVOT Peak Gradient 8 mmHg LVOT Mean Gradient 5 mmHg LVOT VTI 34 cm LVOT VTI/AV VTI Ratio 1.3 LVOT Stroke Volume 107 ml LVOT CO 21.1 l/min LVOT CI 8.2 l/min/m2 Pulmonic Valve Name Value Normal PV Doppler PV Peak Gradient 5 mmHg Mitral Valve Name Value Normal MV Doppler MV Decel [place] 303 cm/s2 MV PHT 99 ms MV Area (PHT) 2.2 cm2 4.0-5.0 MV Diastolic Function MV E Peak Velocity 104 cm/s MV A Peak Velocity 117 cm/s MV E/A 0.9 MV Decel Time 343 ms MV Annular TDI MV E/e' (Septal) 10.9 <=8.0 MV E/e' (Lateral) 9.4 <=8.0 MV E/e' (Average) 10.2 Tricuspid Valve Name Value Normal TV Regurgitation Doppler TR Peak Velocity 224 cm/s TR Peak Gradient 20 mmHg Estimated PAP/RSVP RA Pressure 5 mmHg <=5 PA Systolic Pressure 25 mmHg <36 RV Systolic Pressure 25 mmHg <36 Aorta Name Value Normal Ascending Aorta Ao Root Diameter (MM) 3.6 cm Ao Root Diam Index (MM) 1.4 cm/m2 Aortic Valve Name Value Normal AV Doppler AV Peak Velocity 146 cm/s AV Peak Gradient 8 mmHg AV Mean Gradient 7 mmHg AV VTI 27 cm AV Area (Cont Eq VTI) 4.0 cm2 >=3.0 AV Area (Cont Eq Ariel) 3.1 cm2 AV Regurgitation 2D LVOT Area 3.1 cm2 Ventricles Name Value Normal LV Dimensions 2D/MM IVS Diastolic Thickness (2D) 1.8 cm 0.6-1.0 LVID Diastole (2D) 4.1 cm 4.2-5.8 LVIW Diastolic Thickness (2D) 1.3 cm 0.6-1.0 LVID Systole (2D) 2.9 cm 2.5-4.0 LVOT Diameter 2.0 cm LV Mass (2D Cubed) 269.48 g 88.00-224.00 LV Mass Index (2D Cubed) 105 g/m2 49-115 Relative Wall Thickness (2D) 0.65 LV Fractional Shortening/Ejection Fraction 2D/MM LV Fractional Shortening (2D) 31 % 25-43 LV EF (2D Teicholz) 58 % 52-72 LV Diastolic Volume (4C MOD) 115 ml LV EF (4C MOD) 66 % LV Diastolic Volume (2C MOD) 99 ml LV EF (2C MOD) 73 % LV Diastolic Volume (BP MOD) 115 ml 62-150 LV Diastolic Volume Index (BP MOD) 45 ml/m2 34-74 LV Systolic Volume (BP MOD) 34 ml 21-61 LV Systolic Volume Index (BP MOD) 13 ml/m2 11-31 LV EF (BP MOD) 71 % 52-72 LV Diastolic Length (4C) 8.8 cm LV Systolic Length (4C) 6.6 cm LV Stroke Volume (4C MOD) 76 ml RV Dimensions 2D/MM RVID Diastole (2D) 5.0 cm 2.5-3.5 Atria Name Value Normal LA Dimensions LA Dimension (MM) 4.1 cm 3.0-4.1 LA Volume (4C A-L) 44 ml LA Volume (BP A-L) 47 ml RA Dimensions RA Area (4C) 13.2 cm2 <=18.0 Report Signatures
[2024-05-02] MEDS: PANTOPRAZOLE SODIUM IV 40 MG VIAL IV PUSH ×2 (08:03→20:17)
[2024-05-02] MEDS: ENOXAPARIN 40 MG/0.4 ML SYRINGE SUB-Q (08:04)
[2024-05-02] MEDS: LIDOCAINE 5% PATCH 1 PATCH TRANSDERM (08:04)
[2024-05-02] MEDS: KCL 40 MEQ/WATER 100 ML 100 ML 25 ML IVPB (10:37)
--- NOTE | 2024-05-02 11:01 | P.PNNP_ITS ---
Progress Note: A&P Assessment and Plan (1) Acute kidney injury: Code(s): N17.9 - Acute kidney failure, unspecified Status: Acute Assessment and Plan: * suspect multifactorial etiology: * NSAID use * hypotension/hemodynmic instability/shock * sepsis/infection * third spacing * evaluation to date: * CT shows normal kidneys * renal u/s with simple cyst x 1 o/w unremarkable. * urine electrolytes are prerenal * CPK mildly elevated (but not enough to affect kidneys) * urine eosinophils negative * mild proteinuria * good urine output noted * creatinine better but fluctuating * follow trend of repeat labs and UOP (2) Stage 3b chronic kidney disease: Code(s): N18.32 - Chronic kidney disease, stage 3b Status: Chronic Assessment and Plan: * creatinine ~ 1.5mg/dl in November 2023 * suspect secondary to hypertension, peripheral vascular disease, and possibly chronic NSAID use as well as age-related change (3) Perforated gastric ulcer: Onset Date: 04/2024 Qualifiers: Gastric ulcer chronicity: acute Qualified Code(s): K25.1 - Acute gastric ulcer with perforation Code(s): K25.5 - Chronic or unspecified gastric ulcer with perforation Status: Acute Assessment and Plan: * suspect secondary to NSAID use * s/p exploratory laparotomy and repair of antral gastric ulcer with omental Clarence patch and placement of open gastrostomy tube (on 04/22) * on antibiotics * TPN for nutritional support * General Surgery following (4) Acute respiratory failure: Code(s): J96.00 - Acute respiratory failure, unspecified whether with hypoxia or hypercapnia Status: Acute Assessment and Plan: * resolved * on room air * follow CXRs and respiratory status (5) Anemia: Code(s): D64.9 - Anemia, unspecified Status: Acute Assessment and Plan: * relatively stable * due to RIC, CKD, and acute illness * follow trend of H/H (6) HTN (hypertension): Code(s): I10 - Essential (primary) hypertension Status: Acute Assessment and Plan: * blood pressure slowly increasing * on PRN hydralazine and clonidine patch * resume oral meds when able to take po intake * follow trend of hemodynamics Will continue to follow. L Subjective Date/time seen: 05/02/24 11:01 Interval history: Follow-up for acute kidney injury/acute renal failure on chronic kidney disease. Chart reviewed -- assuming care from Dr. Felix; no apparent distress voiced at the time of my visit; denies any chest pain or shortness of breath; renal function/creatinine continues to fluctuate but continues to make good urine output; no other issues/events overnight or earlier this morning. Exam 2 Narrative: General: elderly but WD/WN male in NAD Heart: normal S1 and S2; no rub Lungs: clear anteriorly Abdomen: soft, mild TTP; some bowel sounds; +G-tube Extremities: no cyanosis or clubbing; trace - 1+ edema Skin: warm and dry Objective Data Vital Signs Vital Signs: Vital Signs Temp Pulse Resp BP Pulse Ox O2 Del Method 05/02/24 08:20 147/55 H 05/02/24 08:00 Room Air 05/02/24 07:56 78 18 05/02/24 07:24 76 18 05/02/24 05:27 98.6 F 72 16 145/61 H 96 05/02/24 04:00 80 05/02/24 02:46 86 18 05/02/24 02:35 86 18 05/02/24 00:59 98.2 F 93 16 168/50 H 97 05/02/24 00:00 89 05/01/24 22:30 98.4 F 93 20 153/53 H 98 05/01/24 21:52 85 20 05/01/24 21:32 87 97 Room Air 05/01/24 21:28 87 20 05/01/24 20:00 83 05/01/24 20:00 Room Air 05/01/24 19:33 97.6 F 86 18 180/62 H 99 05/01/24 16:00 98.0 F 82 16 189/62 H 100 05/01/24 16:00 78 05/01/24 14:08 84 20 05/01/24 13:54 62 20 Intake/Output Intake/Output: Intake & Output 04/29/24 04/30/24 05/01/24 05/02/24 23:59 23:59 23:59 23:59 Intake Total 3239.5 2478.3 730 2305 Output Total 2335 2485 2162 720 Balance 904.5 -6.7 -1432 1585 Meds/Results Medications: Active Medications Generic Name Dose Route Start Last Admin Trade Name Freq PRN Reason Stop Dose Admin Acetaminophen 650 mg 04/26/24 22:19 04/26/24 22:57 Acetaminophen 650 Mg Suppository RECTAL 650 mg Q6H PRN Administration Mild Pain (1-3) or Fever Alteplase, Recombinant 2 mg 04/29/24 18:20 04/29/24 21:42 Alteplase 2 Mg Vial (Cathflo) IV PUSH 2 mg ONCE PRN Administration Line Occlusion Artificial Tears 1 drop 04/27/24 08:37 Artificial Tears Ophth Soln 15 Ml Bottle EACH EYE QID PRN Dry Eye(s) Atorvastatin Calcium 20 mg 04/30/24 09:00 Atorvastatin 20 Mg Tablet BY MOUTH DAILY ROSY Clonidine HCl 1 patch 05/01/24 09:00 05/01/24 11:36 Clonidine 0.1 Mg/24 Hr Patch TRANSDERM 1 patch WEEKLY ROSY Administration Dextrose 12.5 gm 04/22/24 23:06 Dextrose 50% 25 Gm/50 Ml Syringe IV PUSH PRN PRN Hypoglycemia Protocol Enoxaparin Sodium 40 mg 04/29/24 09:00 05/02/24 08:04 Enoxaparin 40 Mg/0.4 Ml Syringe SUB-Q 40 mg DAILY ROSY Administration Glucagon 1 mg 04/22/24 23:06 Glucagon For Inj 1 Mg Vial IM PRN PRN Hypoglycemia Protocol Glucose 15 gm 04/22/24 23:06 Glucose Oral Gel 15 Gm Of Glucse In 37.5 Gm Tube PO PRN PRN Hypoglycemia Protocol Hydralazine HCl 10 mg 04/25/24 08:00 05/01/24 21:59 Hydralazine Hcl 20 Mg/Ml Vial IV PUSH 10 mg Q4H PRN Administration Blood Pressure - High Fluconazole/Dextrose 100 mg in 50 mls @ 50 mls/hr 04/22/24 22:00 05/01/24 20:12 Diflucan 100 Mg/Nacl 50 Ml IVPB 50 mls/hr Q24H ROSY Administration Dextrose 1,000 mls @ 100 mls/hr 04/22/24 23:06 Dextrose 5% 1,000 Ml IVPB PRN PRN Hypoglycemia Protocol Dextrose 1,000 mls @ 50 mls/hr 04/25/24 10:46 Dextrose 10% IV CONT .Q20H PRN if PN is interrupted Multivitamins 2.5 ml/ 2,005 mls @ 50 mls/hr 04/25/24 12:00 05/02/24 12:24 Multivitamins 2.5 ml/ Amino IV CONT 50 mls/hr Acids/Dextrose .Q24H ROSY Administration Protocol Fat Emulsion Intravenous 250 mls @ 20.833 mls/hr 04/25/24 12:00 05/02/24 12:22 Lipids 20% IVPB 20.83 mls/hr Q24H ROSY Administration Piperacillin/Tazobactam/Dextrose 3.375 gm in 50 mls @ 100 mls/hr 04/28/24 12:00 05/02/24 12:22 Zosyn 3.375 Gm/Ns 50 Ml IVPB 100 mls/hr Q6HR ROSY Administration Potassium Chloride 100 mls @ 25 mls/hr 05/02/24 10:14 05/02/24 10:37 Kcl 40 Meq/Water 100 Ml IVPB 05/02/24 14:13 25 mls/hr ONCE ONE Administration Ipratropium [place] 0.5 mg 04/23/24 14:00 05/02/24 07:24 Ipratropium Br 0.02% Inh Soln 0.5 Mg/2.5 Ml Vial INHALATION 0.5 mg Q6HRT ROSY Administration Levalbuterol HCl 0.63 mg 04/23/24 14:00 05/02/24 07:24 Levalbuterol Neb 1.25 Mg/3 Ml INHALATION 0.63 mg Q6HRT ROSY Administration Lidocaine 1 patch 04/27/24 16:35 05/02/24 08:04 Lidocaine 5% Patch TRANSDERM 1 patch DAILY ROSY Administration Lorazepam 0.5 mg 04/27/24 19:01 05/01/24 22:48 Lorazepam Inj (*Crx) 2 Mg/Ml Vial IV PUSH 0.5 mg HS PRN Administration Sleep Metoclopramide HCl 10 mg 04/28/24 12:00 05/02/24 12:24 Metoclopramide Hcl Inj 10 Mg/2 Ml Vial IV PUSH 10 mg Q6HR ROSY Administration Miscellaneous Information 1 each 05/02/24 00:01 Fluconazole Needs To Be Renewed Or It Will Automatically Discontinue. XX 06/01/24 00:00 CLARIFY ROSY Miscellaneous Information 1 each 05/02/24 00:01 Morphine Needs To Be Renewed Or It Will Automatically Discontinue. XX 06/01/24 00:00 CLARIFY ROSY Morphine Sulfate 4 mg 04/22/24 22:02 05/02/24 08:02 Morphine Sulfate (*Crx) 4 Mg/Ml Inj IV PUSH 4 mg Q3H PRN Administration Pain Rated 7-10 Pantoprazole Sodium 40 mg 04/26/24 21:00 05/02/24 08:03 Pantoprazole Sodium Iv 40 Mg Vial IV PUSH 40 mg Q12HR ROSY Administration Perflutren Lipid Microsphere 0 ml 05/01/24 11:01 Perflutren Lipid Microspheres 1.5 Ml Vial Diluted To 10 Ml Total Volume IV PUSH 05/04/24 11:01 ONCE PRN adequate visualization Protocol Sodium Chloride 10 ml 04/23/24 14:00 05/02/24 05:02 Central Line Flush IV PUSH 10 ml Q8HR ROSY Administration Sodium Chloride 20 ml 04/23/24 10:16 05/02/24 04:54 Central Line Flush IV PUSH 20 ml PRN PRN Administration after blood draws Radiology Results: ITS Impressions Chest/Abdomen/Pelvis CTA 04/22/24 18:10 IMPRESSION: Perforated viscus with a large amount of free air and fluid, with mural thickening in the distal stomach and multiple punctate foci of extraluminal air in this area for which site of perforation is suspected. Renal Ultrasound 04/24/24 11:58 IMPRESSION: Simple cyst in the left kidney upper pole. Other appearances are unremarkable. Upper GI Series 04/28/24 16:58 IMPRESSION: 1. Likely locally contained exophytic mucosal leakage of contrast at the gastric antrum at the site of a reported repair ulcer. The irregular margins and absence of more diffuse distribution of the contrast with no contrast extending along the adjacent drainage catheters suggests that this likely remains confined by a reported omental patch. Definitive determination is required would consider repeat contrast contrast injection into the gastrostomy tube with subsequent CT imaging. Chest X-Ray 05/01/24 06:24 IMPRESSION: Interval increase in the left-sided pleural effusion with moderate pulmonary vascular congestion, as detailed above. Labs Labs: Laboratory Tests 05/02/24 04:26 05/02/24 04:26 Calcium 8.8 Phosphorus 3.5 Magnesium 1.9 Transferrin 128 L Total Bilirubin 3.4 H AST 32 ALT 25 Alkaline Phosphatase 155 H Total Protein 6.0 L Albumin 3.1 L
--- NOTE | 2024-05-02 11:19 | PM.IMPN ---
Progress Note: A&P Assessment and Plan (1) HTN (hypertension): Code(s): I10 - Essential (primary) hypertension Status: Acute (2) Perforated abdominal viscus: Code(s): R19.8 - Other specified symptoms and signs involving the digestive system and abdomen Status: Acute (3) Malnutrition following gastrointestinal surgery: Code(s): K91.2 - Postsurgical malabsorption, not elsewhere classified Status: Acute (4) Acute kidney injury superimposed on stage 3b chronic kidney disease: Code(s): N17.9 - Acute kidney failure, unspecified; N18.32 - Chronic kidney disease, stage 3b Status: Acute Plan 78-year-old male with a past medical history of the osteoarthritis on chronic NSAID therapy, hyperlipidemia, hypertension, prior umbilical hernia repair, perforated appendix status post resection 2022 who presented to the ER via EMS with 3 days of sharp radiating abdominal pain. CT demonstrated perforated viscus with large amount of free air and fluid with mural thickening of the distal stomach and multiple punctate foci of extraluminal air with suspected perforated ulcer. Patient was evaluated by the surgeon in the ER was taken directly to the OR. Status post exploratory laparotomy with repair of antral gastric ulcer with omental Clarence patch. Placement of open gastrostomy tube on 04/22/2024. Patient was admitted to the ICU with shock requiring pressor support, intubated. Was eventually extubated on 04/25/2024. He was off pressor support on 04/24/2024. Has been on Zosyn and Diflucan as per surgery. 1. Septic shock in setting of peritonitis with perforated gastric ulcer: Shock has resolved Status post exploratory laparotomy with repair of antral gastric ulcer with omental Clarence patch, open gastrostomy tube Surgery is following Continues to be on Zosyn, Diflucan Still has the NG tube for postop ileus Currently on TPN Await bowel function to return Electrolyte supplementation as per pharmacy as patient is on TPN Continue with PPI 2. RIC on CKD stage IIIB: Avoid nephrotoxins Recheck BMP in a.m. Nephrology following Renal ultrasound was unremarkable for any acute issues 3. DVT prophylaxis: Lovenox 4. Code status: Full 5. Disposition: Pending improvement Time Spent With Patient Time: 38 min Subjective Date/time seen: 05/02/24 11:19 Interval history: No acute events overnight, Has not passed flatus yet Review of Systems Review of Systems: All systems reviewed & are unremarkable except as noted in HPI and below Exam Narrative: HEENT: PERRL, sclerae nonicteric, pharyngeal mucosa pink and intact NECK: No JVD CHEST: Clear to auscultation. Normal effort. HEART: NL S1/S2, regular, ABDOMEN: Midline dressing present, drains present, NG tube present EXTREMITIES: No cyanosis, clubbing. Trace pitting edema of ankles. NEUROLOGIC: CN intact and symmetric to inspection. MUSCULOSKELETAL: Tone and strength symmetric. PSYCH: Alert. Oriented to person, place, time. Objective Data Vital Signs Vital Signs: Vital Signs - 24 hr 05/01/24 13:54 05/01/24 14:08 05/01/24 16:00 Temperature Pulse Rate 62 84 78 Respiratory Rate 20 20 Blood Pressure Pulse Oximetry Oxygen Delivery 05/01/24 16:00 05/01/24 19:33 05/01/24 20:00 Temperature 98.0 F 97.6 F Pulse Rate 82 86 Respiratory Rate 16 18 Blood Pressure 189/62 H 180/62 H Pulse Oximetry 100 99 Oxygen Delivery Room Air 05/01/24 20:00 05/01/24 21:28 05/01/24 21:32 Temperature Pulse Rate 83 87 87 Respiratory Rate 20 Blood Pressure Pulse Oximetry 97 Oxygen Delivery Room Air 05/01/24 21:52 05/01/24 22:30 05/02/24 00:00 Temperature 98.4 F Pulse Rate 85 93 89 Respiratory Rate 20 20 Blood Pressure 153/53 H Pulse Oximetry 98 Oxygen Delivery 05/02/24 00:59 05/02/24 02:35 05/02/24 02:46 Temperature 98.2 F Pulse Rate 93 86 86 Respiratory Rate 16 18 18 Blood Pressure 168/50 H Pulse Oximetry 97 Oxygen Delivery 05/02/24 04:00 05/02/24 05:27 05/02/24 07:24 Temperature 98.6 F Pulse Rate 80 72 76 Respiratory Rate 16 18 Blood Pressure 145/61 H Pulse Oximetry 96 Oxygen Delivery 05/02/24 07:56 05/02/24 08:20 Temperature Pulse Rate 78 Respiratory Rate 18 Blood Pressure 147/55 H Pulse Oximetry Oxygen Delivery Intake/Output Intake/Output: Intake & Output 04/29/24 04/30/24 05/01/24 05/02/24 23:59 23:59 23:59 23:59 Intake Total 3239.5 2478.3 730 300 Output Total 5819 1516 2165 720 Balance 904.5 -6.7 -1432 -420 Meds/Results Medications: Active Medications Generic Name Dose Route Start Last Admin Trade Name Freq PRN Reason Stop Dose Admin Acetaminophen 650 mg 04/26/24 22:19 04/26/24 22:57 Acetaminophen 650 Mg Suppository RECTAL 650 mg Q6H PRN Administration Mild Pain (1-3) or Fever Alteplase, Recombinant 2 mg 04/29/24 18:20 04/29/24 21:42 Alteplase 2 Mg Vial (Cathflo) IV PUSH 2 mg ONCE PRN Administration Line Occlusion Artificial Tears 1 drop 04/27/24 08:37 Artificial Tears Ophth Soln 15 Ml Bottle EACH EYE QID PRN Dry Eye(s) Atorvastatin Calcium 20 mg 04/30/24 09:00 Atorvastatin 20 Mg Tablet BY MOUTH DAILY ROSY Clonidine HCl 1 patch 05/01/24 09:00 05/01/24 11:36 Clonidine 0.1 Mg/24 Hr Patch TRANSDERM 1 patch WEEKLY ROSY Administration Dextrose 12.5 gm 04/22/24 23:06 Dextrose 50% 25 Gm/50 Ml Syringe IV PUSH PRN PRN Hypoglycemia Protocol Enoxaparin Sodium 40 mg 04/29/24 09:00 05/02/24 08:04 Enoxaparin 40 Mg/0.4 Ml Syringe SUB-Q 40 mg DAILY ROSY Administration Glucagon 1 mg 04/22/24 23:06 Glucagon For Inj 1 Mg Vial IM PRN PRN Hypoglycemia Protocol Glucose 15 gm 04/22/24 23:06 Glucose Oral Gel 15 Gm Of Glucse In 37.5 Gm Tube PO PRN PRN Hypoglycemia Protocol Hydralazine HCl 10 mg 04/25/24 08:00 05/01/24 21:59 Hydralazine Hcl 20 Mg/Ml Vial IV PUSH 10 mg Q4H PRN Administration Blood Pressure - High Fluconazole/Dextrose 100 mg in 50 mls @ 50 mls/hr 04/22/24 22:00 05/01/24 20:12 Diflucan 100 Mg/Nacl 50 Ml IVPB 50 mls/hr Q24H ROSY Administration Dextrose 1,000 mls @ 100 mls/hr 04/22/24 23:06 Dextrose 5% 1,000 Ml IVPB PRN PRN Hypoglycemia Protocol Dextrose 1,000 mls @ 50 mls/hr 04/25/24 10:46 Dextrose 10% IV CONT .Q20H PRN if PN is interrupted Multivitamins 2.5 ml/ 2,005 mls @ 50 mls/hr 04/25/24 12:00 04/30/24 14:25 Multivitamins 2.5 ml/ Amino IV CONT 50 mls/hr Acids/Dextrose .Q24H ROSY Administration Protocol Fat Emulsion Intravenous 250 mls @ 20.833 mls/hr 04/25/24 12:00 05/02/24 02:12 Lipids 20% IVPB Infused Q24H ROSY Infusion Piperacillin/Tazobactam/Dextrose 3.375 gm in 50 mls @ 100 mls/hr 04/28/24 12:00 05/02/24 05:29 Zosyn 3.375 Gm/Ns 50 Ml IVPB Infused Q6HR ROSY Infusion Potassium Chloride 100 mls @ 25 mls/hr 05/02/24 10:14 05/02/24 10:37 Kcl 40 Meq/Water 100 Ml IVPB 05/02/24 14:13 25 mls/hr ONCE ONE Administration Ipratropium [place] 0.5 mg 04/23/24 14:00 05/02/24 07:24 Ipratropium Br 0.02% Inh Soln 0.5 Mg/2.5 Ml Vial INHALATION 0.5 mg Q6HRT ROSY Administration Levalbuterol HCl 0.63 mg 04/23/24 14:00 05/02/24 07:24 Levalbuterol Neb 1.25 Mg/3 Ml INHALATION 0.63 mg Q6HRT ROSY Administration Lidocaine 1 patch 04/27/24 16:35 05/02/24 08:04 Lidocaine 5% Patch TRANSDERM 1 patch DAILY ROSY Administration Lorazepam 0.5 mg 04/27/24 19:01 05/01/24 22:48 Lorazepam Inj (*Crx) 2 Mg/Ml Vial IV PUSH 0.5 mg HS PRN Administration Sleep Metoclopramide HCl 10 mg 04/28/24 12:00 05/02/24 05:00 Metoclopramide Hcl Inj 10 Mg/2 Ml Vial IV PUSH 10 mg Q6HR ROSY Administration Miscellaneous Information 1 each 05/02/24 00:01 Fluconazole Needs To Be Renewed Or It Will Automatically Discontinue. XX 06/01/24 00:00 [facility] Miscellaneous Information 1 each 05/02/24 00:01 Morphine Needs To Be Renewed Or It Will Automatically Discontinue. XX 06/01/24 00:00 [facility] Morphine Sulfate 4 mg 04/22/24 22:02 05/02/24 08:02 Morphine Sulfate (*Crx) 4 Mg/Ml Inj IV PUSH 4 mg Q3H PRN Administration Pain Rated 7-10 Pantoprazole Sodium 40 mg 04/26/24 21:00 05/02/24 08:03 Pantoprazole Sodium Iv 40 Mg Vial IV PUSH 40 mg Q12HR ROSY Administration Perflutren Lipid Microsphere 0 ml 05/01/24 11:01 Perflutren Lipid Microspheres 1.5 Ml Vial Diluted To 10 Ml Total Volume IV PUSH 05/04/24 11:01 ONCE PRN adequate visualization Protocol Sodium Chloride 10 ml 04/23/24 14:00 05/02/24 05:02 Central Line Flush IV PUSH 10 ml Q8HR ROSY Administration Sodium Chloride 20 ml 04/23/24 10:16 05/02/24 04:54 Central Line Flush IV PUSH 20 ml PRN PRN Administration after blood draws Radiology Results: ITS Impressions Chest/Abdomen/Pelvis CTA 04/22/24 18:10 IMPRESSION: Perforated viscus with a large amount of free air and fluid, with mural thickening in the distal stomach and multiple punctate foci of extraluminal air in this area for which site of perforation is suspected. Renal Ultrasound 04/24/24 11:58 IMPRESSION: Simple cyst in the left kidney upper pole. Other appearances are unremarkable. Upper GI Series 04/28/24 16:58 IMPRESSION: 1. Likely locally contained exophytic mucosal leakage of contrast at the gastric antrum at the site of a reported repair ulcer. The irregular margins and absence of more diffuse distribution of the contrast with no contrast extending along the adjacent drainage catheters suggests that this likely remains confined by a reported omental patch. Definitive determination is required would consider repeat contrast contrast injection into the gastrostomy tube with subsequent CT imaging. Chest X-Ray 05/01/24 06:24 IMPRESSION: Interval increase in the left-sided pleural effusion with moderate pulmonary vascular congestion, as detailed above. Labs Labs: Laboratory Results - last 24 hr 05/01/24 05/01/2405/02/25 11:56 19:57 00:18 WBC RBC Hgb Hct MCV MCH MCHC RDW Plt Count MPV Immature Gran % (Auto) Neut % (Auto) Lymph % (Auto) [place] % (Auto) Eos % (Auto) Baso % (Auto) Lymph # (Auto) [place] # (Auto) Eos # (Auto) Baso # (Auto) Abs Immat Gran (auto) Absolute Neuts (auto) Absolute Nucleated RBC Nucleated RBC % % Immature Plt Fraction PT INR APTT Sodium 142 Potassium 3.6 Chloride 108 H Carbon Dioxide 23 Anion Gap 11 BUN 43 H Creatinine 1.64 H Estim Creat Clear Calc 47 Estimated GFR 41 L Glucose 113 H POC Capillary Glucose 138 H 128 H Calcium 9.0 Phosphorus Magnesium Transferrin Total Bilirubin AST ALT Alkaline Phosphatase Total Protein Albumin 05/02/24 05/02/24 05/02/24 04:26 04:29 05:29 WBC 15.3 H RBC 3.65 L Hgb 10.6 L Hct 33.1 L MCV 90.7 MCH 29.0 MCHC 32.0 RDW 14.7 H Plt Count 254 MPV 13.3 H Immature Gran % (Auto) 2.5 H Neut % (Auto) 83.7 H Lymph % (Auto) 4.0 L [place] % (Auto) 7.4 Eos % (Auto) 2.0 Baso % (Auto) 0.4 Lymph # (Auto) 0.61 L [place] # (Auto) 1.1 H Eos # (Auto) 0.3 Baso # (Auto) 0.1 Abs Immat Gran (auto) 0.38 H Absolute Neuts (auto) 12.8 H Absolute Nucleated RBC 0.000 Nucleated RBC % 0.0 % Immature Plt Fraction 12.6 H PT 14.9 H INR 1.1 APTT 30.9 Sodium 142 Potassium 3.2 L Chloride 110 H Carbon Dioxide 21 L Anion Gap 11 BUN 49 H Creatinine 1.80 H Estim Creat Clear Calc 43 Estimated GFR 37 L Glucose 140 H POC Capillary Glucose 131 H Calcium 8.8 Phosphorus 3.5 Magnesium 1.9 Transferrin 128 L Total Bilirubin 3.4 H AST 32 ALT 25 Alkaline Phosphatase 155 H Total Protein 6.0 L Albumin 3.1 L Quality VTE Prophylaxis VTE prophylaxis: pharmacologic ordered
[2024-05-02 11:26] LABS: Triglycerides 226 mg/dL (<150)
[2024-05-02 12:03] LABS: Glucose Point of Care 108 mg/dl (65-105)
[2024-05-02] MEDS: FAT EMULSIONS IV 20% 250 ML 20.83 ML IVPB (12:22)
[2024-05-02] MEDS: AMINO ACIDS 5%/DEXTROSE 15% 2,000 ML with MULTIVITAMINS-12 INJ VIAL 1 2.5 ML, MULTIVITA... 50 ML IV CONT (12:24)
--- NOTE | 2024-05-02 15:53 | P.PNGS_ITS ---
Progress Note: A&P Assessment and Plan (1) Critical limb ischemia of left lower extremity: Code(s): I70.222 - Atherosclerosis of [place] arteries of extremities with rest pain, left leg Status: Acute Assessment and Plan: * ? Concern for limb ischemia in the left lower extremity. On my exam this afternoon, the patient has a cool, mottled left foot. I was able to doppler his pedal and posterior pulses. He is not having any pain or paresthesia. Discussed with Dr. Moreno and ordered stat CTA left lower extremity. Discussed the Case with Nephrology due to giving contrast in the setting of his improving RIC, will start NS @ 50 cc/hr along with his TPN leading up to the CTA and for an hour after. Also discussed the case with the Hospitalist and we would recommend starting a Heparin infusion now while awaiting workup. This can be discontinued if his CTA is negative. Will follow closely. (2) Perforated abdominal viscus: Code(s): R19.8 - Other specified symptoms and signs involving the digestive system and abdomen Status: Acute Assessment and Plan: * Postop day 9 status post laparotomy with repair of large perforated gastric ulcer with omental [place] patch. His WBC count has slowly come up over the past 3 days and is at 15,300 today. He is not having any abdominal pain and only minimal tenderness in the RUQ. He is afebrile. His incision is healing well without any signs of an infection. Continue IV antibiotics for now. Monitor ELSA drains x 2, which continue to have serous output. Repeat labs again tomorrow. He is getting CTA left lower extremity this afternoon, but we will consider repeating a water-soluble upper GI tomorrow to reassess his gastric leak. (3) Malnutrition following gastrointestinal surgery: Code(s): K91.2 - Postsurgical malabsorption, not elsewhere classified Status: Acute Assessment and Plan: * Continue TPN for now. Plan I have discussed the patient's case and plan of care with Dr. Moreno. Subjective Subjective Date/Time Seen: 05/02/24 15:53 Patient reports: no new complaints Interval history: Patient is sleeping when I walked in the room but was able to wake up and was conversable. He denies any specific complaints. He denies abdominal pain or nausea. There is one BM documented from yesterday evening, but he does not recall having a bowel movement. He denies flatus. On my exam, his left leg is cold and appears slightly purple and mottled. With further questioning, he denies any pain in his left lower extremity, denies numbness/tingling. He denies SOB, chest pain, or any other complaints at this time. Per nursing, his left foot did not appear mottled or cold this morning when she had last assessed him. Exam Const: General: comfortable and no acute distress Orientation/consciousness: patient oriented x3 Resp: Effort & Inspection: normal respiratory effort Auscultation: wheezes right lower and diminished lung sounds Cardio: Rate: regular rate Rhythm: regular rhythm GI: Inspection: incision (dry with tono intact, no erythema) and other (mildly distended) GI Palp: Yes Soft to palpation, Yes Tenderness to palpation present (GI) (mild tenderness in the RUQ and right mid abdomen), No Guarding due to palpation present (GI) and No Rebound tenderness present Auscultation: Hypoactive bowel sounds present Other: ELSA drain x 2 with scant serous drainage Gastrostomy tube to gravity with the gauze dressing around the tube dry and intact, skin without erythema and no drainage Neuro: General: no focal motor deficits Extrem: Right upper extremity: normal capillary refill and edema (mild diffuse edema ) Left upper extremity: normal capillary refill and edema (mild diffuse edema) Other: Bilateral lower extremities with mild 1-2+ edema. His left foot is very cool in comparison to his right foot which is warm. The skin of his left foot extending to the ankle and lower 1/4 of the lower leg appears slightly pale with mottling of the lateral ankle and dorsal foot. Capillary refill slightly long on the left foot compared to right. He is able to wiggle his toes and actively dorsiflex and plantarflex his left foot, but his ROM and strength of dorsiflexion is slightly decreased in the left compared to the right. I am unable to palpate DP or pedal pulses bilaterally, but was able to doppler weak pulses bilaterally of both pedal and posterior tibial pulses. He had diminished sensation of the both feet on the plantar aspect of his feet. Psych: Mental Status: mental status grossly normal Objective Data Vital Signs Vital Signs: Vital Signs - 24 hr 05/01/24 16:00 05/01/24 16:00 05/01/24 19:33 Temperature 98.0 F 97.6 F Pulse Rate 78 82 86 Respiratory Rate 16 18 Blood Pressure 189/62 H 180/62 H Pulse Oximetry 100 99 Oxygen Delivery 05/01/24 20:00 05/01/24 20:00 05/01/24 21:28 Temperature Pulse Rate 83 87 Respiratory Rate 20 Blood Pressure Pulse Oximetry Oxygen Delivery Room Air 05/01/24 21:32 05/01/24 21:52 05/01/24 22:30 Temperature 98.4 F Pulse Rate 87 85 93 Respiratory Rate 20 20 Blood Pressure 153/53 H Pulse Oximetry 97 98 Oxygen Delivery Room Air 05/02/24 00:00 05/02/24 00:59 05/02/24 02:35 Temperature 98.2 F Pulse Rate 89 93 86 Respiratory Rate 16 18 Blood Pressure 168/50 H Pulse Oximetry 97 Oxygen Delivery 05/02/24 02:46 05/02/24 04:00 05/02/24 05:27 Temperature 98.6 F Pulse Rate 86 80 72 Respiratory Rate 18 16 Blood Pressure 145/61 H Pulse Oximetry 96 Oxygen Delivery 05/02/24 07:24 05/02/24 07:56 05/02/24 08:00 Temperature Pulse Rate 76 78 Respiratory Rate 18 18 Blood Pressure Pulse Oximetry Oxygen Delivery Room Air 05/02/24 08:20 05/02/24 13:53 Temperature Pulse Rate 75 Respiratory Rate 18 Blood Pressure 147/55 H Pulse Oximetry Oxygen Delivery Intake/Output Intake/Output: Intake & Output 04/29/24 04/30/24 05/01/24 05/02/24 23:59 23:59 23:59 23:59 Intake Total 3239.5 2478.3 730 2455 Output Total 2335 2485 2162 720 Balance 904.5 -6.7 -1432 1735 Meds/Results Medications: Active Medications Generic Name Dose Route Start Last Admin Trade Name Freq PRN Reason Stop Dose Admin Acetaminophen 650 mg 04/26/24 22:19 04/26/24 22:57 Acetaminophen 650 Mg Suppository RECTAL 650 mg Q6H PRN Administration Mild Pain (1-3) or Fever Alteplase, Recombinant 2 mg 04/29/24 18:20 04/29/24 21:42 Alteplase 2 Mg Vial (Cathflo) IV PUSH 2 mg ONCE PRN Administration Line Occlusion Artificial Tears 1 drop 04/27/24 08:37 Artificial Tears Ophth Soln 15 Ml Bottle EACH EYE QID PRN Dry Eye(s) Atorvastatin Calcium 20 mg 04/30/24 09:00 Atorvastatin 20 Mg Tablet BY MOUTH DAILY ROSY Clonidine HCl 1 patch 05/01/24 09:00 05/01/24 11:36 Clonidine 0.1 Mg/24 Hr Patch TRANSDERM 1 patch WEEKLY ROSY Administration Dextrose 12.5 gm 04/22/24 23:06 Dextrose 50% 25 Gm/50 Ml Syringe IV PUSH PRN PRN Hypoglycemia Protocol Enoxaparin Sodium 40 mg 04/29/24 09:00 05/02/24 08:04 Enoxaparin 40 Mg/0.4 Ml Syringe SUB-Q 40 mg DAILY ROSY Administration Glucagon 1 mg 04/22/24 23:06 Glucagon For Inj 1 Mg Vial IM PRN PRN Hypoglycemia Protocol Glucose 15 gm 04/22/24 23:06 Glucose Oral Gel 15 Gm Of Glucse In 37.5 Gm Tube PO PRN PRN Hypoglycemia Protocol Hydralazine HCl 10 mg 04/25/24 08:00 05/01/24 21:59 Hydralazine Hcl 20 Mg/Ml Vial IV PUSH 10 mg Q4H PRN Administration Blood Pressure - High Fluconazole/Dextrose 100 mg in 50 mls @ 50 mls/hr 04/22/24 22:00 05/01/24 20:12 Diflucan 100 Mg/Nacl 50 Ml IVPB 50 mls/hr Q24H ROSY Administration Dextrose 1,000 mls @ 100 mls/hr 04/22/24 23:06 Dextrose 5% 1,000 Ml IVPB PRN PRN Hypoglycemia Protocol Dextrose 1,000 mls @ 50 mls/hr 04/25/24 10:46 Dextrose 10% IV CONT .Q20H PRN if PN is interrupted Multivitamins 2.5 ml/ 2,005 mls @ 50 mls/hr 04/25/24 12:00 05/02/24 12:24 Multivitamins 2.5 ml/ Amino IV CONT 50 mls/hr Acids/Dextrose .Q24H ROSY Administration Protocol Fat Emulsion Intravenous 250 mls @ 20.833 mls/hr 04/25/24 12:00 05/02/24 12:22 Lipids 20% IVPB 20.83 mls/hr Q24H ROSY Administration Piperacillin/Tazobactam/Dextrose 3.375 gm in 50 mls @ 100 mls/hr 04/28/24 12:00 05/02/24 12:52 Zosyn 3.375 Gm/Ns 50 Ml IVPB Infused Q6HR ROSY Infusion Sodium Chloride 1,000 mls @ 50 mls/hr 05/02/24 15:50 Normal Saline Iv IV CONT .Q20H ROSY Ipratropium [place] 0.5 mg 04/23/24 14:00 05/02/24 13:53 Ipratropium Br 0.02% Inh Soln 0.5 Mg/2.5 Ml Vial INHALATION 0.5 mg Q6HRT ROSY Administration Levalbuterol HCl 0.63 mg 04/23/24 14:00 05/02/24 13:53 Levalbuterol Neb 1.25 Mg/3 Ml INHALATION 0.63 mg Q6HRT ROSY Administration Lidocaine 1 patch 04/27/24 16:35 05/02/24 08:04 Lidocaine 5% Patch TRANSDERM 1 patch DAILY ROSY Administration Lorazepam 0.5 mg 04/27/24 19:01 05/01/24 22:48 Lorazepam Inj (*Crx) 2 Mg/Ml Vial IV PUSH 0.5 mg HS PRN Administration Sleep Metoclopramide HCl 10 mg 04/28/24 12:00 05/02/24 12:24 Metoclopramide Hcl Inj 10 Mg/2 Ml Vial IV PUSH 10 mg Q6HR ROSY Administration Miscellaneous Information 1 each 05/02/24 00:01 Fluconazole Needs To Be Renewed Or It Will Automatically Discontinue. XX 06/01/24 00:00 [facility] Miscellaneous Information 1 each 05/02/24 00:01 Morphine Needs To Be Renewed Or It Will Automatically Discontinue. XX 06/01/24 00:00 [facility] Morphine Sulfate 4 mg 04/22/24 22:02 05/02/24 08:02 Morphine Sulfate (*Crx) 4 Mg/Ml Inj IV PUSH 4 mg Q3H PRN Administration Pain Rated 7-10 Pantoprazole Sodium 40 mg 04/26/24 21:00 05/02/24 08:03 Pantoprazole Sodium Iv 40 Mg Vial IV PUSH 40 mg Q12HR ROSY Administration Perflutren Lipid Microsphere 0 ml 05/01/24 11:01 Perflutren Lipid Microspheres 1.5 Ml Vial Diluted To 10 Ml Total Volume IV PUSH 05/04/24 11:01 ONCE PRN adequate visualization Protocol Sodium Chloride 10 ml 04/23/24 14:00 05/02/24 13:50 Central Line Flush IV PUSH 10 ml Q8HR ROSY Administration Sodium Chloride 20 ml 04/23/24 10:16 05/02/24 04:54 Central Line Flush IV PUSH 20 ml PRN PRN Administration after blood draws Radiology Results: ITS Impressions Chest/Abdomen/Pelvis CTA 04/22/24 18:10 IMPRESSION: Perforated viscus with a large amount of free air and fluid, with mural thickening in the distal stomach and multiple punctate foci of extraluminal air in this area for which site of perforation is suspected. Renal Ultrasound 04/24/24 11:58 IMPRESSION: Simple cyst in the left kidney upper pole. Other appearances are unremarkable. Upper GI Series 04/28/24 16:58 IMPRESSION: 1. Likely locally contained exophytic mucosal leakage of contrast at the gastric antrum at the site of a reported repair ulcer. The irregular margins and absence of more diffuse distribution of the contrast with no contrast extending along the adjacent drainage catheters suggests that this likely remains confined by a reported omental patch. Definitive determination is required would consider repeat contrast contrast injection into the gastrostomy tube with subsequent CT imaging. Chest X-Ray 05/01/24 06:24 IMPRESSION: Interval increase in the left-sided pleural effusion with moderate pulmonary vascular congestion, as detailed above. Labs Labs: Laboratory Results - last 24 hr 05/01/24 05/02/24 05/02/24 19:57 00:18 04:21 WBC RBC Hgb Hct MCV MCH MCHC RDW Plt Count MPV Immature Gran % (Auto) Neut % (Auto) Lymph % (Auto) Randall % (Auto) Eos % (Auto) Baso % (Auto) Lymph # (Auto) Randall # (Auto) Eos # (Auto) Baso # (Auto) Abs Immat Gran (auto) Absolute Neuts (auto) Absolute Nucleated RBC Nucleated RBC % % Immature Plt Fraction PT INR APTT Sodium 142 Potassium 3.6 Chloride 108 H Carbon Dioxide 23 Anion Gap 11 BUN 43 H Creatinine 1.64 H Estim Creat Clear Calc 47 Estimated GFR 41 L Glucose 113 H POC Capillary Glucose 128 H Calcium 9.0 Phosphorus Magnesium Transferrin Total Bilirubin AST ALT Alkaline Phosphatase Total Protein Albumin Triglycerides 226 H 05/02/24 05/02/24 05/02/24 04:26 04:29 05:29 WBC 15.3 H RBC 3.65 L Hgb 10.6 L Hct 33.1 L MCV 90.7 MCH 29.0 MCHC 32.0 RDW 14.7 H Plt Count 254 MPV 13.3 H Immature Gran % (Auto) 2.5 H Neut % (Auto) 83.7 H Lymph % (Auto) 4.0 L Randall % (Auto) 7.4 Eos % (Auto) 2.0 Baso % (Auto) 0.4 Lymph # (Auto) 0.61 L Randall # (Auto) 1.1 H Eos # (Auto) 0.3 Baso # (Auto) 0.1 Abs Immat Gran (auto) 0.38 H Absolute Neuts (auto) 12.8 H Absolute Nucleated RBC 0.000 Nucleated RBC % 0.0 % Immature Plt Fraction 12.6 H PT 14.9 H INR 1.1 APTT 30.9 Sodium 142 Potassium 3.2 L Chloride 110 H Carbon Dioxide 21 L Anion Gap 11 BUN 49 H Creatinine 1.80 H Estim Creat Clear Calc 43 Estimated GFR 37 L Glucose 140 H POC Capillary Glucose 131 H Calcium 8.8 Phosphorus 3.5 Magnesium 1.9 Transferrin 128 L Total Bilirubin 3.4 H AST 32 ALT 25 Alkaline Phosphatase 155 H Total Protein 6.0 L Albumin 3.1 L Triglycerides 05/02/24 11:52 WBC RBC Hgb Hct MCV MCH MCHC RDW Plt Count MPV Immature Gran % (Auto) Neut % (Auto) Lymph % (Auto) Randall % (Auto) Eos % (Auto) Baso % (Auto) Lymph # (Auto) Randall # (Auto) Eos # (Auto) Baso # (Auto) Abs Immat Gran (auto) Absolute Neuts (auto) Absolute Nucleated RBC Nucleated RBC % % Immature Plt Fraction PT INR APTT Sodium Potassium Chloride Carbon Dioxide Anion Gap BUN Creatinine Estim Creat Clear Calc Estimated GFR Glucose POC Capillary Glucose 108 H Calcium Phosphorus Magnesium Transferrin Total Bilirubin AST ALT Alkaline Phosphatase Total Protein Albumin Triglycerides
[2024-05-02] MEDS: SODIUM CHLORIDE 0.9% IV 1,000 ML 50 ML IV CONT (16:02)
--- NOTE | 2024-05-02 16:06 | PC.NURSE ---
pt to CT via bed
[2024-05-02] MEDS: HEPARIN SOD/D5W 100 UNITS/ML 25,000 UNITS/250 ML BAG 15 UNITS IV CONT (17:02)
[2024-05-02 18:29] LABS: Basophils Absolute Auto 0.1 K/mm3 (0.0-0.1); Basophils Percent Auto 0.4 % (0.2-1.2); Eosinophils Absolute Auto 0.3 K/mm3 (0-0.3); Eosinophils Percent Auto 2.4 % (0-4.4); Hematocrit 31.9 % (42.0-52.0); Hemoglobin 10.2 g/dL (14.0-18.0); Immature Granulocyte Absolute 0.26 K/mm3 (0.00-0.031); Immature Granulocyte Percent A 1.9 % (0-0.5); Lymphocytes Absolute Auto 0.68 K/mm3 (0.9-3.2); Lymphocytes Percent Auto 4.9 % (18.3-44.2); Mean Corpuscular Hemoglobin 29.1 pg (26-34); Mean Corpuscular Volume 90.9 fl (80-100); Mean Platelet Volume 12.2 fl (7.4-10.4); Monocytes Percent Auto 7.5 % (2.6-8.5); Neutrophils Absolute Auto 11.6 K/mm3 (1.3-6.7); Neutrophils Percent Auto 82.9 % (45.5-73.1); Platelet Count Result 247 k/mm3 (150-375); Red Blood Count 3.51 M/mm3 (4.6-6.20); Red Cell Distribution Width 14.8 % (11.5-14.5); White Blood Count 13.9 K/mm3 (4.5-10.0)
[2024-05-02 18:41] LABS: INR 1.1
[2024-05-02 18:43] LABS: Partial Thromboplastin Time 46.3 Seconds (22.3-36.8)
[2024-05-02 18:47] LABS: Glucose Point of Care 138 mg/dl (65-105)
[2024-05-02] MEDS: LORazepam INJ (*CRX) 2 MG/ML VIAL 0.5 MG IV PUSH (20:17)
[2024-05-02] MEDS: hydrALAZINE HCL 20 MG/ML VIAL 10 MG IV PUSH (20:23)
[2024-05-02] MEDS: FLUCONAZOLE 100 MG/NACL 50 ML 100 MG/50 ML BTL 50 MG IVPB (21:11)
[2024-05-02 23:06] LABS: Partial Thromboplastin Time 49.2 Seconds (22.3-36.8)
[2024-05-02] MEDS: HEPARIN SODIUM 5,000 UNITS/ML VIAL 7500 UNITS IV PUSH (23:22)
[2024-05-03] VITALS (17 sets, daily range): BP systolic 135–158; BP diastolic 42–68; PULSE 72–83; RESP 16–17; TEMP 36.4–36.8; O2SAT 96–97
[2024-05-03] MEDS: [UNRECOGNIZED DRUG - REMARK] 1 EACH XX (00:25)
[2024-05-03] MEDS: [UNRECOGNIZED DRUG - REMARK] 1 EACH XX (00:25)
[2024-05-03] MEDS: hydrALAZINE HCL 20 MG/ML VIAL 10 MG IV PUSH ×2 (01:47→21:47)
[2024-05-03 01:58] LABS: Glucose Point of Care 129 mg/dl (65-105)
[2024-05-03] MEDS: IPRATROPIUM BR 0.02% INH SOLN 0.5 MG/2.5 ML VIAL INHALATION ×4 (02:33→21:16)
[2024-05-03] MEDS: LEVALBUTEROL NEB 1.25 MG/3 ML 0.63 MG INHALATION ×4 (02:34→21:16)
[2024-05-03] MEDS: CENTRAL LINE FLUSH 20 ML IV PUSH (04:55)
[2024-05-03] MEDS: METOCLOPRAMIDE HCL INJ 10 MG/2 ML VIAL IV PUSH ×4 (04:59→23:54)
[2024-05-03] MEDS: MORPHINE SULFATE (*CRX) 4 MG/ML INJ IV PUSH ×5 (04:59→21:49)
[2024-05-03] MEDS: CENTRAL LINE FLUSH 10 ML IV PUSH ×3 (05:00→20:24)
[2024-05-03] MEDS: PIPERACILLN/TAZ 3.375GM/NS50ML 3.375 GM/50 ML BAG IVPB ×4 (05:00→23:53)
[2024-05-03 05:04] LABS: Basophils Absolute Auto 0.1 K/mm3 (0.0-0.1); Basophils Percent Auto 0.5 % (0.2-1.2); Eosinophils Absolute Auto 0.3 K/mm3 (0-0.3); Eosinophils Percent Auto 2.3 % (0-4.4); Hematocrit 29.7 % (42.0-52.0); Hemoglobin 9.7 g/dL (14.0-18.0); Immature Granulocyte Absolute 0.26 K/mm3 (0.00-0.031); Immature Granulocyte Percent A 2.1 % (0-0.5); Lymphocytes Percent Auto 5.7 % (18.3-44.2); Mean Corpuscular HGB Conc 32.7 g/dl (32-36); Mean Corpuscular Hemoglobin 29.7 pg (26-34); Mean Corpuscular Volume 90.8 fl (80-100); Monocytes Percent Auto 8.1 % (2.6-8.5); Neutrophils Percent Auto 81.3 % (45.5-73.1); Platelet Count Result 250 k/mm3 (150-375); Red Blood Count 3.27 M/mm3 (4.6-6.20); Red Cell Distribution Width 14.8 % (11.5-14.5); White Blood Count 12.3 K/mm3 (4.5-10.0)
[2024-05-03 05:14] LABS: Partial Thromboplastin Time 97.4 Seconds (22.3-36.8)
[2024-05-03 05:20] LABS: Anion Gap 10 mmol/L (4-12); Blood Urea Nitrogen 58 mg/dL (9-20); Calcium 8.5 mg/dL (8.4-10.2); Carbon Dioxide 21 mmol/L (22-30); Chloride 112 mmol/L (98-107); Estimated CRCL calculation 37 ml/min; Estimated Glomerular Filt Rate 31; Glucose 134 mg/dL (65-110); Potassium 3.4 mmol/L (3.4-5.0); Sodium 143 mmol/L (137-145)
[2024-05-03 05:28] LABS: Platelet Estimate Adequate (Adequate)
[2024-05-03 05:29] LABS: Hypochromasia 1+; Large Platelets Present
[2024-05-03 05:30] LABS: Schistocytes None Seen
[2024-05-03 07:07] LABS: Glucose Point of Care 131 mg/dl (65-105)
[2024-05-03] MEDS: HEPARIN SOD/D5W 100 UNITS/ML 25,000 UNITS/250 ML BAG 19 UNITS IV CONT ×2 (07:12→20:21)
[2024-05-03] MEDS: LIDOCAINE 5% PATCH 1 PATCH TRANSDERM (08:34)
[2024-05-03] MEDS: PANTOPRAZOLE SODIUM IV 40 MG VIAL IV PUSH ×2 (08:35→20:24)
--- NOTE | 2024-05-03 09:02 | PM.IMPN ---
Progress Note: A&P Assessment and Plan (1) HTN (hypertension): Code(s): I10 - Essential (primary) hypertension Status: Acute (2) Perforated abdominal viscus: Code(s): R19.8 - Other specified symptoms and signs involving the digestive system and abdomen Status: Acute (3) Malnutrition following gastrointestinal surgery: Code(s): K91.2 - Postsurgical malabsorption, not elsewhere classified Status: Acute (4) Acute kidney injury superimposed on stage 3b chronic kidney disease: Code(s): N17.9 - Acute kidney failure, unspecified; N18.32 - Chronic kidney disease, stage 3b Status: Acute Plan 78-year-old male with a past medical history of the osteoarthritis on chronic NSAID therapy, hyperlipidemia, hypertension, prior umbilical hernia repair, perforated appendix status post resection 2022 who presented to the ER via EMS with 3 days of sharp radiating abdominal pain. CT demonstrated perforated viscus with large amount of free air and fluid with mural thickening of the distal stomach and multiple punctate foci of extraluminal air with suspected perforated ulcer. Patient was evaluated by the surgeon in the ER was taken directly to the OR. Status post exploratory laparotomy with repair of antral gastric ulcer with omental Clarence patch. Placement of open gastrostomy tube on 04/22/2024. Patient was admitted to the ICU with shock requiring pressor support, intubated. Was eventually extubated on 04/25/2024. He was off pressor support on 04/24/2024. Has been on Zosyn and Diflucan as per surgery. Septic shock in setting of peritonitis with perforated gastric ulcer: Shock has resolved Status post exploratory laparotomy with repair of antral gastric ulcer with omental Clarence patch, open gastrostomy tube Surgery is following Continues to be on Zosyn, Diflucan Still has the NG tube for postop ileus Currently on TPN Await bowel function to return Electrolyte supplementation as per pharmacy as patient is on TPN Continue with PPI Critical limb ischemia of left lower extremity cool, mottled left foot on 05/02 CT showed scattered atherosclerotic plaque in the arteries of the left lower limb as detailed above without a discrete hemodynamic significant stenosis RIC on CKD stage IIIB: Avoid nephrotoxins Recheck BMP in a.m. Nephrology following Renal ultrasound was unremarkable for any acute issues DVT prophylaxis: Lovenox Code status: Full Patient still NPO on TPN, patient has a general weakness, consult PT OT sore for a for evaluation and assisting placement Subjective Date/time seen: 05/03/24 09:02 Interval history: Patient has no new issue even over the night, patient denies any chest pain or shortness of breath; patient has not passed gas yet, patient is on TPN, patient is afebrile, blood pressure stable Exam Narrative: HEENT: PERRL, sclerae nonicteric, pharyngeal mucosa pink and intact NECK: No JVD CHEST: Clear to auscultation. Normal effort. HEART: NL S1/S2, regular, ABDOMEN: Midline dressing present, drains present, NG tube present EXTREMITIES: No cyanosis, clubbing. Trace pitting edema of ankles. NEUROLOGIC: CN intact and symmetric to inspection. MUSCULOSKELETAL: Tone and strength symmetric. PSYCH: Alert. Oriented to person, place, time. Objective Data Vital Signs Vital Signs: Vital Signs - 24 hr 05/02/24 12:00 05/02/24 13:53 05/02/24 16:00 Temperature 98.0 F Pulse Rate 76 75 78 Respiratory Rate 18 17 Blood Pressure 143/66 H Pulse Oximetry 99 Oxygen Delivery 05/02/24 16:00 05/02/24 20:00 05/02/24 20:23 Temperature 97.8 F Pulse Rate 83 79 81 Respiratory Rate 16 Blood Pressure 180/66 H Pulse Oximetry 98 Oxygen Delivery 05/02/24 20:47 05/02/24 21:00 05/02/24 21:00 Temperature Pulse Rate 94 86 Respiratory Rate 16 16 Blood Pressure Pulse Oximetry Oxygen Delivery Room Air 05/03/24 00:00 05/03/24 02:00 05/03/24 02:34 Temperature 98.2 F Pulse Rate 83 83 82 Respiratory Rate 16 16 Blood Pressure 158/68 H Pulse Oximetry 96 Oxygen Delivery 05/03/24 02:43 05/03/24 04:00 05/03/24 06:09 Temperature 97.8 F Pulse Rate 78 79 79 Respiratory Rate 16 16 Blood Pressure 135/42 L Pulse Oximetry 97 Oxygen Delivery 05/03/24 08:04 Temperature Pulse Rate 77 Respiratory Rate 16 Blood Pressure Pulse Oximetry Oxygen Delivery Intake/Output Intake/Output: Intake & Output 04/30/24 05/01/24 05/02/24 05/03/24 23:59 23:59 23:59 23:59 Intake Total 2478.3 780 2650.7 497.9 Output Total 2485 2162 1800 970 Balance -6.7 -1382 850.7 -472.1 Meds/Results Medications: Active Medications Generic Name Dose Route Start Last Admin Trade Name Freq PRN Reason Stop Dose Admin Acetaminophen 650 mg 04/26/24 22:19 04/26/24 22:57 Acetaminophen 650 Mg Suppository RECTAL 650 mg Q6H PRN Administration Mild Pain (1-3) or Fever Alteplase, Recombinant 2 mg 04/29/24 18:20 04/29/24 21:42 Alteplase 2 Mg Vial (Cathflo) IV PUSH 2 mg ONCE PRN Administration Line Occlusion Artificial Tears 1 drop 04/27/24 08:37 Artificial Tears Ophth Soln 15 Ml Bottle EACH EYE QID PRN Dry Eye(s) Atorvastatin Calcium 20 mg 04/30/24 09:00 Atorvastatin 20 Mg Tablet BY MOUTH DAILY ROSY Clonidine HCl 1 patch 05/01/24 09:00 05/01/24 11:36 Clonidine 0.1 Mg/24 Hr Patch TRANSDERM 1 patch WEEKLY ROSY Administration Dextrose 12.5 gm 04/22/24 23:06 Dextrose 50% 25 Gm/50 Ml Syringe IV PUSH PRN PRN Hypoglycemia Protocol Enoxaparin Sodium 40 mg 04/29/24 09:00 05/02/24 08:04 Enoxaparin 40 Mg/0.4 Ml Syringe SUB-Q 40 mg DAILY ROSY Administration Glucagon 1 mg 04/22/24 23:06 Glucagon For Inj 1 Mg Vial IM PRN PRN Hypoglycemia Protocol Glucose 15 gm 04/22/24 23:06 Glucose Oral Gel 15 Gm Of Glucse In 37.5 Gm Tube PO PRN PRN Hypoglycemia Protocol Heparin Sodium (Porcine) 4,000 units 05/02/24 16:05 Heparin Sodium 5,000 Units/Ml Vial IV PUSH PRN PRN aPTT 55 - 70 seconds Heparin Sodium (Porcine) 7,500 units 05/02/24 16:05 05/02/24 23:22 Heparin Sodium 5,000 Units/Ml Vial IV PUSH 7,500 units PRN PRN Administration aPTT less than 55 seconds Hydralazine HCl 10 mg 04/25/24 08:00 05/03/24 01:47 Hydralazine Hcl 20 Mg/Ml Vial IV PUSH 10 mg Q4H PRN Administration Blood Pressure - High Fluconazole/Dextrose 100 mg in 50 mls @ 50 mls/hr 04/22/24 22:00 05/02/24 22:11 Diflucan 100 Mg/Nacl 50 Ml IVPB Infused Q24H ROSY Infusion Dextrose 1,000 mls @ 100 mls/hr 04/22/24 23:06 Dextrose 5% 1,000 Ml IVPB PRN PRN Hypoglycemia Protocol Dextrose 1,000 mls @ 50 mls/hr 04/25/24 10:46 Dextrose 10% IV CONT .Q20H PRN if PN is interrupted Multivitamins 2.5 ml/ 2,005 mls @ 50 mls/hr 04/25/24 12:00 05/02/24 12:24 Multivitamins 2.5 ml/ Amino IV CONT 50 mls/hr Acids/Dextrose .Q24H ROSY Administration Protocol Fat Emulsion Intravenous 250 mls @ 20.833 mls/hr 04/25/24 12:00 05/03/24 00:26 Lipids 20% IVPB Infused Q24H ROSY Infusion Piperacillin/Tazobactam/Dextrose 3.375 gm in 50 mls @ 100 mls/hr 04/28/24 12:00 05/03/24 05:28 Zosyn 3.375 Gm/Ns 50 Ml IVPB 05/05/24 23:59 Infused Q6HR ROSY Infusion Heparin Sodium/Dextrose 25,000 units in 250 mls @ 19 mls/hr 05/02/24 16:05 05/03/24 07:12 Heparin Sodium/D5w 100 Units/Ml IV CONT 1,900 units/hr .[id number] ROSY 19 mls/hr Administration Protocol 1,900 UNITS/HR Ipratropium [place] 0.5 mg 04/23/24 14:00 05/03/24 08:03 Ipratropium Br 0.02% Inh Soln 0.5 Mg/2.5 Ml Vial INHALATION 0.5 mg Q6HRT ROSY Administration Levalbuterol HCl 0.63 mg 04/23/24 14:00 05/03/24 08:03 Levalbuterol Neb 1.25 Mg/3 Ml INHALATION 0.63 mg Q6HRT ROSY Administration Lidocaine 1 patch 04/27/24 16:35 05/03/24 08:34 Lidocaine 5% Patch TRANSDERM 1 patch DAILY ROSY Administration Lorazepam 0.5 mg 04/27/24 19:01 05/02/24 20:17 Lorazepam Inj (*Crx) 2 Mg/Ml Vial IV PUSH 0.5 mg HS PRN Administration Sleep Metoclopramide HCl 10 mg 04/28/24 12:00 05/03/24 04:59 Metoclopramide Hcl Inj 10 Mg/2 Ml Vial IV PUSH 10 mg Q6HR ROSY Administration Miscellaneous Information 1 each 05/02/24 00:01 05/03/24 00:26 Fluconazole Needs To Be Renewed Or It Will Automatically Discontinue. XX 06/01/24 00:00 Not Given CLARIFY ROSY Miscellaneous Information 1 each 05/02/24 00:01 05/03/24 00:26 Morphine Needs To Be Renewed Or It Will Automatically Discontinue. XX 06/01/24 00:00 Not Given CLARIFY ROSY Morphine Sulfate 4 mg 04/22/24 22:02 05/03/24 04:59 Morphine Sulfate (*Crx) 4 Mg/Ml Inj IV PUSH 4 mg Q3H PRN Administration Pain Rated 7-10 Pantoprazole Sodium 40 mg 04/26/24 21:00 05/03/24 08:35 Pantoprazole Sodium Iv 40 Mg Vial IV PUSH 40 mg Q12HR ROSY Administration Perflutren Lipid Microsphere 0 ml 05/01/24 11:01 Perflutren Lipid Microspheres 1.5 Ml Vial Diluted To 10 Ml Total Volume IV PUSH 05/04/24 11:01 ONCE PRN adequate visualization Protocol Sodium Chloride 10 ml 04/23/24 14:00 05/03/24 05:00 Central Line Flush IV PUSH 10 ml Q8HR ROSY Administration Sodium Chloride 20 ml 04/23/24 10:16 05/03/24 04:55 Central Line Flush IV PUSH 20 ml PRN PRN Administration after blood draws Radiology Results: ITS Impressions Chest/Abdomen/Pelvis CTA 04/22/24 18:10 IMPRESSION: Perforated viscus with a large amount of free air and fluid, with mural thickening in the distal stomach and multiple punctate foci of extraluminal air in this area for which site of perforation is suspected. Renal Ultrasound 04/24/24 11:58 IMPRESSION: Simple cyst in the left kidney upper pole. Other appearances are unremarkable. Upper GI Series 04/28/24 16:58 IMPRESSION: 1. Likely locally contained exophytic mucosal leakage of contrast at the gastric antrum at the site of a reported repair ulcer. The irregular margins and absence of more diffuse distribution of the contrast with no contrast extending along the adjacent drainage catheters suggests that this likely remains confined by a reported omental patch. Definitive determination is required would consider repeat contrast contrast injection into the gastrostomy tube with subsequent CT imaging. Chest X-Ray 05/01/24 06:24 IMPRESSION: Interval increase in the left-sided pleural effusion with moderate pulmonary vascular congestion, as detailed above. Lower Extremity CTA 05/02/24 16:36 IMPRESSION: 1. Scattered atherosclerotic plaque in the arteries of the left lower limb as detailed above without a discrete hemodynamic significant stenosis. Runoff below the ankle in the left posterior tibial artery this supplies the foot. Atretic distal peroneal and anterior tibial arteries with intraluminal contrast becoming indiscernible at the level of the ankle and with no appreciable contrast in the dorsalis pedis artery. Labs Labs: Laboratory Results - last 24 hr 05/02/24 05/02/24 05/02/24 04:21 11:52 18:21 WBC 13.9 H RBC 3.51 L Hgb 10.2 L Hct 31.9 L MCV 90.9 MCH 29.1 MCHC 32.0 RDW 14.8 H Plt Count 247 MPV 12.2 H Immature Gran % (Auto) 1.9 H Neut % (Auto) 82.9 H Lymph % (Auto) 4.9 L [place] % (Auto) 7.5 Eos % (Auto) 2.4 Baso % (Auto) 0.4 Lymph # (Auto) 0.68 L [place] # (Auto) 1.0 H Eos # (Auto) 0.3 Baso # (Auto) 0.1 Abs Immat Gran (auto) 0.26 H Absolute Neuts (auto) 11.6 H Absolute Nucleated RBC 0.000 Band Neutrophils % Nucleated RBC % 0.0 Platelet Estimate Large Platelets Hypochromasia Schistocytes PT 15.0 H INR 1.1 APTT 46.3 H Sodium Potassium Chloride Carbon Dioxide Anion Gap BUN Creatinine Estim Creat Clear Calc Estimated GFR Glucose POC Capillary Glucose 108 H Calcium Triglycerides 226 H 05/02/24 05/02/24 05/03/24 18:43 22:43 01:35 WBC RBC Hgb Hct MCV MCH MCHC RDW Plt Count MPV Immature Gran % (Auto) Neut % (Auto) Lymph % (Auto) [place] % (Auto) Eos % (Auto) Baso % (Auto) Lymph # (Auto) [place] # (Auto) Eos # (Auto) Baso # (Auto) Abs Immat Gran (auto) Absolute Neuts (auto) Absolute Nucleated RBC Band Neutrophils % Nucleated RBC % Platelet Estimate Large Platelets Hypochromasia Schistocytes PT INR APTT 49.2 H Sodium Potassium Chloride Carbon Dioxide Anion Gap BUN Creatinine Estim Creat Clear Calc Estimated GFR Glucose POC Capillary Glucose 138 H 129 H Calcium Triglycerides 05/03/24 05/03/24 04:51 06:04 WBC 12.3 H RBC 3.27 L Hgb 9.7 L Hct 29.7 L MCV 90.8 MCH 29.7 MCHC 32.7 RDW 14.8 H Plt Count 250 MPV 13.0 H Immature Gran % (Auto) 2.1 H Neut % (Auto) 81.3 H Lymph % (Auto) 5.7 L [place] % (Auto) 8.1 Eos % (Auto) 2.3 Baso % (Auto) 0.5 Lymph # (Auto) 0.70 L [place] # (Auto) 1.0 H Eos # (Auto) 0.3 Baso # (Auto) 0.1 Abs Immat Gran (auto) 0.26 H Absolute Neuts (auto) 10.0 H Absolute Nucleated RBC 0.000 Band Neutrophils % Not Reportable Nucleated RBC % 0.0 Platelet Estimate Adequate Large Platelets Present Hypochromasia 1+ Schistocytes None seen PT INR APTT 97.4 H Sodium 143 Potassium 3.4 Chloride 112 H Carbon Dioxide 21 L Anion Gap 10 BUN 58 H Creatinine 2.10 H Estim Creat Clear Calc 37 Estimated GFR 31 L Glucose 134 H POC Capillary Glucose 131 H Calcium 8.5 Triglycerides
--- NOTE | 2024-05-03 09:48 | P.PNGS_ITS ---
Progress Note: A&P Assessment and Plan (1) Perforated abdominal viscus: Code(s): R19.8 - Other specified symptoms and signs involving the digestive system and abdomen Status: Acute Assessment and Plan: * Postop day 11 status post laparotomy with repair of large perforated gastric ulcer with omental Clarence patch. WBC count down from 15 to 12.3 today. He is slowly improving clinically. Incision is healing well. Continue IV Zosyn and fluconazole while NPO. He will need at least 14 days of treatment, and potentially longer. Continue to monitor ELSA drains x 2. Will give water soluble contrast through his gastrostomy tube and get a CT scan today to re-evaluate the gastric leak. If there is no leak, then we could consider starting trickle tube feedings through his gastrostomy tube. Eventually, we will need a swallow study before feeding him, but will start with tube feedings initially. We will keep the TPN going until we are able to start giving nutrition if he no longer has a gastric leak. Will have nursing attempt to get peripheral IVs today with a goal of removing his central line. If he will need to continue with TPN, then we may need to consider PICC line placement later today or tomorrow prior to removing his central line. We will also plan on holding the heparin infusion prior to removing the central line, which will be coordinated with nursing. (2) Malnutrition following gastrointestinal surgery: Code(s): K91.2 - Postsurgical malabsorption, not elsewhere classified Status: Acute Assessment and Plan: * Continue TPN while the repair is healing and he remains NPO. (3) PAD (peripheral artery disease): Code(s): I73.9 - Peripheral vascular disease, unspecified Status: Acute Assessment and Plan: * Yesterday patient found to have a cold, mottled left foot. CTA left lower extremity showed scattered atherosclerotic plaque in the arteries with no distal perfusion into the dorsalis pedis artery. Supply below the ankle to the foot is from the left posterior tibial artery. This is likely an acute on chronic issue, and there is no proximal significant stenosis identified that would require urgent surgical management. This has improved with anticoagulation and his foot has regained color and warmth today. Will continue the Heparin infusion for now and monitor closely. Plan I have discussed the patient's case and plan of care with Dr. Moreno. Subjective Subjective Date/Time Seen: 05/03/24 09:48 Post Op day: 11 (Exploratory laparotomy with repair of antral gastric ulcer with omental Clarence patch, placement of open gastrostomy tube) Patient reports: no new complaints and afebrile (WBC count down from 15 to 12 today) Interval history: Patient has had some confusion at night at times per staff, but this improves by morning. He is oriented x 3 for me this morning. Denies any abdominal pain, nausea, SOB, cough, chest pain, leg pain, or any other complaints. He had one BM documented 2 nights ago, but denies having any BM yesterday or through the night last night. He denies flatus today. ELSA drains with minimal output over the pa st 24 hours. Gastrostomy tube with 400 cc output in the past 24 hours. Good urine output, at 66 cc/hr overnight (800 cc in 12 hours). Exam Const: General: comfortable and no acute distress Orientation/consciousness: patient oriented x3 Resp: Effort & Inspection: normal respiratory effort Auscultation: diminished lung sounds Cardio: Rate: regular rate Rhythm: regular rhythm GI: Other: Abdomen mildly distended and soft. ELSA drains x 2 with serous output. Gastrostomy tube to gravity with dark bilious-appearing output in bag. Skin around the G- tube without erythema or drainage. Incision dry and tono intact, no erythema. He has mild tenderness near his midline incision and RUQ, no guarding or peritoneal signs. Good bowel sounds today. Urinary Catheter: Urinary Catheter: patent and draining and urine clear Skin: General skin exam: normal color Neuro: General: moves all extremities and no focal motor deficits Extrem: General: no calf tenderness bilaterally Other: Bilateral lower extremities are both warm with good color today. No mottling or pallor on the left lower extremity. Movement is equal bilaterally with ROM intact. Strong pedal pulse palpable today, unable to palpate PT pulse. Objective Data Vital Signs Vital Signs: Vital Signs - 24 hr 05/02/24 12:00 05/02/24 13:53 05/02/24 16:00 Temperature 98.0 F Pulse Rate 76 75 78 Respiratory Rate 18 17 Blood Pressure 143/66 H Pulse Oximetry 99 Oxygen Delivery 05/02/24 16:00 05/02/24 20:00 05/02/24 20:23 Temperature 97.8 F Pulse Rate 83 79 81 Respiratory Rate 16 Blood Pressure 180/66 H Pulse Oximetry 98 Oxygen Delivery 05/02/24 20:47 05/02/24 21:00 05/02/24 21:00 Temperature Pulse Rate 94 86 Respiratory Rate 16 16 Blood Pressure Pulse Oximetry Oxygen Delivery Room Air 05/03/24 00:00 05/03/24 02:00 05/03/24 02:34 Temperature 98.2 F Pulse Rate 83 83 82 Respiratory Rate 16 16 Blood Pressure 158/68 H Pulse Oximetry 96 Oxygen Delivery 05/03/24 02:43 05/03/24 04:00 05/03/24 06:09 Temperature 97.8 F Pulse Rate 78 79 79 Respiratory Rate 16 16 Blood Pressure 135/42 L Pulse Oximetry 97 Oxygen Delivery 05/03/24 08:00 05/03/24 08:04 Temperature Pulse Rate 72 77 Respiratory Rate 16 Blood Pressure Pulse Oximetry Oxygen Delivery Intake/Output Intake/Output: Intake & Output 04/30/24 05/01/24 05/02/24 05/03/24 23:59 23:59 23:59 23:59 Intake Total 2478.3 780 2650.7 497.9 Output Total 2485 2162 1800 970 Balance -6.7 -1382 850.7 -472.1 Meds/Results Medications: Active Medications Generic Name Dose Route Start Last Admin Trade Name Freq PRN Reason Stop Dose Admin Acetaminophen 650 mg 04/26/24 22:19 04/26/24 22:57 Acetaminophen 650 Mg Suppository RECTAL 650 mg Q6H PRN Administration Mild Pain (1-3) or Fever Alteplase, Recombinant 2 mg 04/29/24 18:20 04/29/24 21:42 Alteplase 2 Mg Vial (Cathflo) IV PUSH 2 mg ONCE PRN Administration Line Occlusion Artificial Tears 1 drop 04/27/24 08:37 Artificial Tears Ophth Soln 15 Ml Bottle EACH EYE QID PRN Dry Eye(s) Atorvastatin Calcium 20 mg 04/30/24 09:00 Atorvastatin 20 Mg Tablet BY MOUTH DAILY ROSY Clonidine HCl 1 patch 05/01/24 09:00 05/01/24 11:36 Clonidine 0.1 Mg/24 Hr Patch TRANSDERM 1 patch WEEKLY ROSY Administration Dextrose 12.5 gm 04/22/24 23:06 Dextrose 50% 25 Gm/50 Ml Syringe IV PUSH PRN PRN Hypoglycemia Protocol Enoxaparin Sodium 40 mg 04/29/24 09:00 05/02/24 08:04 Enoxaparin 40 Mg/0.4 Ml Syringe SUB-Q 40 mg DAILY ROSY Administration Glucagon 1 mg 04/22/24 23:06 Glucagon For Inj 1 Mg Vial IM PRN PRN Hypoglycemia Protocol Glucose 15 gm 04/22/24 23:06 Glucose Oral Gel 15 Gm Of Glucse In 37.5 Gm Tube PO PRN PRN Hypoglycemia Protocol Heparin Sodium (Porcine) 4,000 units 05/02/24 16:05 Heparin Sodium 5,000 Units/Ml Vial IV PUSH PRN PRN aPTT 55 - 70 seconds Heparin Sodium (Porcine) 7,500 units 05/02/24 16:05 05/02/24 23:22 Heparin Sodium 5,000 Units/Ml Vial IV PUSH 7,500 units PRN PRN Administration aPTT less than 55 seconds Hydralazine HCl 10 mg 04/25/24 08:00 05/03/24 01:47 Hydralazine Hcl 20 Mg/Ml Vial IV PUSH 10 mg Q4H PRN Administration Blood Pressure - High Fluconazole/Dextrose 100 mg in 50 mls @ 50 mls/hr 04/22/24 22:00 05/02/24 22:11 Diflucan 100 Mg/Nacl 50 Ml IVPB Infused Q24H ROSY Infusion Dextrose 1,000 mls @ 100 mls/hr 04/22/24 23:06 Dextrose 5% 1,000 Ml IVPB PRN PRN Hypoglycemia Protocol Dextrose 1,000 mls @ 50 mls/hr 04/25/24 10:46 Dextrose 10% IV CONT .Q20H PRN if PN is interrupted Multivitamins 2.5 ml/ 2,005 mls @ 50 mls/hr 04/25/24 12:00 05/02/24 12:24 Multivitamins 2.5 ml/ Amino IV CONT 50 mls/hr Acids/Dextrose .Q24H ROSY Administration Protocol Fat Emulsion Intravenous 250 mls @ 20.833 mls/hr 04/25/24 12:00 05/03/24 00:26 Lipids 20% IVPB Infused Q24H ROSY Infusion Piperacillin/Tazobactam/Dextrose 3.375 gm in 50 mls @ 100 mls/hr 04/28/24 12:00 05/03/24 05:28 Zosyn 3.375 Gm/Ns 50 Ml IVPB 05/05/24 23:59 Infused Q6HR ROSY Infusion Heparin Sodium/Dextrose 25,000 units in 250 mls @ 19 mls/hr 05/02/24 16:05 05/03/24 07:12 Heparin Sodium/D5w 100 Units/Ml IV CONT 1,900 units/hr .[id number] ROSY 19 mls/hr Administration Protocol 1,900 UNITS/HR Ipratropium [place] 0.5 mg 04/23/24 14:00 05/03/24 08:03 Ipratropium Br 0.02% Inh Soln 0.5 Mg/2.5 Ml Vial INHALATION 0.5 mg Q6HRT ROSY Administration Levalbuterol HCl 0.63 mg 04/23/24 14:00 05/03/24 08:03 Levalbuterol Neb 1.25 Mg/3 Ml INHALATION 0.63 mg Q6HRT ROSY Administration Lidocaine 1 patch 04/27/24 16:35 05/03/24 08:34 Lidocaine 5% Patch TRANSDERM 1 patch DAILY ROSY Administration Lorazepam 0.5 mg 04/27/24 19:01 05/02/24 20:17 Lorazepam Inj (*Crx) 2 Mg/Ml Vial IV PUSH 0.5 mg HS PRN Administration Sleep Metoclopramide HCl 10 mg 04/28/24 12:00 05/03/24 04:59 Metoclopramide Hcl Inj 10 Mg/2 Ml Vial IV PUSH 10 mg Q6HR ROSY Administration Miscellaneous Information 1 each 05/02/24 00:01 05/03/24 00:26 Fluconazole Needs To Be Renewed Or It Will Automatically Discontinue. XX 06/01/24 00:00 Not Given CLARIFY ROSY Miscellaneous Information 1 each 05/02/24 00:01 05/03/24 00:26 Morphine Needs To Be Renewed Or It Will Automatically Discontinue. XX 06/01/24 00:00 Not Given CLARIFY ROSY Morphine Sulfate 4 mg 04/22/24 22:02 05/03/24 04:59 Morphine Sulfate (*Crx) 4 Mg/Ml Inj IV PUSH 4 mg Q3H PRN Administration Pain Rated 7-10 Pantoprazole Sodium 40 mg 04/26/24 21:00 05/03/24 08:35 Pantoprazole Sodium Iv 40 Mg Vial IV PUSH 40 mg Q12HR ROSY Administration Perflutren Lipid Microsphere 0 ml 05/01/24 11:01 Perflutren Lipid Microspheres 1.5 Ml Vial Diluted To 10 Ml Total Volume IV PUSH 05/04/24 11:01 ONCE PRN adequate visualization Protocol Sodium Chloride 10 ml 04/23/24 14:00 05/03/24 05:00 Central Line Flush IV PUSH 10 ml Q8HR ROSY Administration Sodium Chloride 20 ml 04/23/24 10:16 05/03/24 04:55 Central Line Flush IV PUSH 20 ml PRN PRN Administration after blood draws Radiology Results: ITS Impressions Chest/Abdomen/Pelvis CTA 04/22/24 18:10 IMPRESSION: Perforated viscus with a large amount of free air and fluid, with mural thickening in the distal stomach and multiple punctate foci of extraluminal air in this area for which site of perforation is suspected. Renal Ultrasound 04/24/24 11:58 IMPRESSION: Simple cyst in the left kidney upper pole. Other appearances are unremarkable. Upper GI Series 04/28/24 16:58 IMPRESSION: 1. Likely locally contained exophytic mucosal leakage of contrast at the gastric antrum at the site of a reported repair ulcer. The irregular margins and absence of more diffuse distribution of the contrast with no contrast extending along the adjacent drainage catheters suggests that this likely remains confined by a reported omental patch. Definitive determination is required would consider repeat contrast contrast injection into the gastrostomy tube with subsequent CT imaging. Chest X-Ray 05/01/24 06:24 IMPRESSION: Interval increase in the left-sided pleural effusion with moderate pulmonary vascular congestion, as detailed above. Lower Extremity CTA 05/02/24 16:36 IMPRESSION: 1. Scattered atherosclerotic plaque in the arteries of the left lower limb as detailed above without a discrete hemodynamic significant stenosis. Runoff below the ankle in the left posterior tibial artery this supplies the foot. Atretic distal peroneal and anterior tibial arteries with intraluminal contrast becoming indiscernible at the level of the ankle and with no appreciable contrast in the dorsalis pedis artery. Labs Labs: Laboratory Results - last 24 hr 05/02/24 05/02/24 05/02/24 04:21 11:52 18:21 WBC 13.9 H RBC 3.51 L Hgb 10.2 L Hct 31.9 L MCV 90.9 MCH 29.1 MCHC 32.0 RDW 14.8 H Plt Count 247 MPV 12.2 H Immature Gran % (Auto) 1.9 H Neut % (Auto) 82.9 H Lymph % (Auto) 4.9 L [place] % (Auto) 7.5 Eos % (Auto) 2.4 Baso % (Auto) 0.4 Lymph # (Auto) 0.68 L [place] # (Auto) 1.0 H Eos # (Auto) 0.3 Baso # (Auto) 0.1 Abs Immat Gran (auto) 0.26 H Absolute Neuts (auto) 11.6 H Absolute Nucleated RBC 0.000 Band Neutrophils % Nucleated RBC % 0.0 Platelet Estimate Large Platelets Hypochromasia Schistocytes PT 15.0 H INR 1.1 APTT 46.3 H Sodium Potassium Chloride Carbon Dioxide Anion Gap BUN Creatinine Estim Creat Clear Calc Estimated GFR Glucose POC Capillary Glucose 108 H Calcium Triglycerides 226 H 05/02/24 05/02/24 05/03/24 18:43 22:43 01:35 WBC RBC Hgb Hct MCV MCH MCHC RDW Plt Count MPV Immature Gran % (Auto) Neut % (Auto) Lymph % (Auto) [place] % (Auto) Eos % (Auto) Baso % (Auto) Lymph # (Auto) [place] # (Auto) Eos # (Auto) Baso # (Auto) Abs Immat Gran (auto) Absolute Neuts (auto) Absolute Nucleated RBC Band Neutrophils % Nucleated RBC % Platelet Estimate Large Platelets Hypochromasia Schistocytes PT INR APTT 49.2 H Sodium Potassium Chloride Carbon Dioxide Anion Gap BUN Creatinine Estim Creat Clear Calc Estimated GFR Glucose POC Capillary Glucose 138 H 129 H Calcium Triglycerides 05/03/24 05/03/24 04:51 06:04 WBC 12.3 H RBC 3.27 L Hgb 9.7 L Hct 29.7 L MCV 90.8 MCH 29.7 MCHC 32.7 RDW 14.8 H Plt Count 250 MPV 13.0 H Immature Gran % (Auto) 2.1 H Neut % (Auto) 81.3 H Lymph % (Auto) 5.7 L [place] % (Auto) 8.1 Eos % (Auto) 2.3 Baso % (Auto) 0.5 Lymph # (Auto) 0.70 L [place] # (Auto) 1.0 H Eos # (Auto) 0.3 Baso # (Auto) 0.1 Abs Immat Gran (auto) 0.26 H Absolute Neuts (auto) 10.0 H Absolute Nucleated RBC 0.000 Band Neutrophils % Not Reportable Nucleated RBC % 0.0 Platelet Estimate Adequate Large Platelets Present Hypochromasia 1+ Schistocytes None seen PT INR APTT 97.4 H Sodium 143 Potassium 3.4 Chloride 112 H Carbon Dioxide 21 L Anion Gap 10 BUN 58 H Creatinine 2.10 H Estim Creat Clear Calc 37 Estimated GFR 31 L Glucose 134 H POC Capillary Glucose 131 H Calcium 8.5 Triglycerides
--- NOTE | 2024-05-03 10:10 | PCOTNOTE ---
The patient treatment was not able to be completed. Patient out of the room. Will plan to continue treatment per plan of care.
--- NOTE | 2024-05-03 11:03 | P.PNNP_ITS ---
Progress Note: A&P Assessment and Plan (1) Acute kidney injury: Code(s): N17.9 - Acute kidney failure, unspecified Status: Acute Assessment and Plan: * continues to fluctuate * suspect multifactorial etiology: * NSAID use * hypotension/hemodynmic instability/shock * sepsis/infection * third spacing * evaluation to date: * CT shows normal kidneys * renal u/s with simple cyst x 1 o/w unremarkable. * urine electrolytes are prerenal * CPK mildly elevated (but not enough to affect kidneys) * urine eosinophils negative * mild proteinuria * good urine output noted * creatinine better but fluctuating * follow trend of repeat labs and UOP (2) Stage 3b chronic kidney disease: Code(s): N18.32 - Chronic kidney disease, stage 3b Status: Chronic Assessment and Plan: * creatinine ~ 1.5mg/dl in November 2023 * suspect secondary to hypertension, peripheral vascular disease, and possibly chronic NSAID use as well as age-related change (3) Perforated gastric ulcer: Onset Date: 04/2024 Qualifiers: Gastric ulcer chronicity: acute Qualified Code(s): K25.1 - Acute gastric ulcer with perforation Code(s): K25.5 - Chronic or unspecified gastric ulcer with perforation Status: Acute Assessment and Plan: * suspect secondary to NSAID use * s/p exploratory laparotomy and repair of antral gastric ulcer with omental Clarence patch and placement of open gastrostomy tube (on 04/22) * on antibiotics * TPN for nutritional support * General Surgery following (4) PAD (peripheral artery disease): Code(s): I73.9 - Peripheral vascular disease, unspecified Status: Acute Assessment and Plan: * CTA of left lower extremity noted * suspect acute on chronic issue * on heparin gtt (5) Acute respiratory failure: Code(s): J96.00 - Acute respiratory failure, unspecified whether with hypoxia or hypercapnia Status: Acute Assessment and Plan: * resolved * on room air * follow CXRs and respiratory status (6) Anemia: Code(s): D64.9 - Anemia, unspecified Status: Acute Assessment and Plan: * relatively stable * due to RIC, CKD, and acute illness * follow trend of H/H (7) Malnutrition following gastrointestinal surgery: Code(s): K91.2 - Postsurgical malabsorption, not elsewhere classified Status: Acute Assessment and Plan: * remains on TPN for now * plan tube feeds in no evidence of gastric leak * eventual goal is to transition to oral intake (8) HTN (hypertension): Code(s): I10 - Essential (primary) hypertension Status: Acute Assessment and Plan: * blood pressure slowly increasing * on PRN hydralazine and clonidine patch * resume oral meds when able to take po intake * follow trend of hemodynamics Will continue to follow. L Subjective Date/time seen: 05/03/24 11:03 Interval history: Follow-up for acute kidney injury/acute renal failure on chronic kidney disease. Noted cold mottled left foot yesterday afternoon -- started on heparin gtt and underwent CTA of right lower extremity with findings noted (no urgent surgical intervention needed based on this test); remains on heparin gtt with improved perfusion/color to left foot; renal function/creatinine continues to fluctuate but make good urine output; reported some confusion earlier this AM but seems at baseline mentation at the time of my visit. Exam 2 Narrative: General: elderly but WD/WN male in NAD Heart: normal S1 and S2; no rub Lungs: clear anteriorly Abdomen: soft, nontender; some bowel sounds; +G-tube Extremities: no cyanosis or clubbing; trace - 1+ edema Skin: warm and intact Objective Data Vital Signs Vital Signs: Vital Signs Temp Pulse Resp BP Pulse Ox O2 Del Method 05/03/24 08:30 Room Air 05/03/24 08:15 76 16 05/03/24 08:04 77 16 05/03/24 08:00 72 05/03/24 06:09 97.8 F 79 16 135/42 L 97 05/03/24 04:00 79 05/03/24 02:43 78 16 05/03/24 02:34 82 16 05/03/24 02:00 98.2 F 83 16 158/68 H 96 05/03/24 00:00 83 05/02/24 21:00 86 16 05/02/24 21:00 Room Air 05/02/24 20:47 94 16 05/02/24 20:23 97.8 F 81 16 180/66 H 98 05/02/24 20:00 79 Intake/Output Intake/Output: Intake & Output 04/30/24 05/01/24 05/02/24 05/03/24 23:59 23:59 23:59 23:59 Intake Total 9978.3 780 2650.7 2009.2 Output Total 2485 2162 1800 970 Balance -6.7 -1382 850.7 1040.2 Meds/Results Medications: Active Medications Generic Name Dose Route Start Last Admin Trade Name Freq PRN Reason Stop Dose Admin Acetaminophen 650 mg 04/26/24 22:19 04/26/24 22:57 Acetaminophen 650 Mg Suppository RECTAL 650 mg Q6H PRN Administration Mild Pain (1-3) or Fever Alteplase, Recombinant 2 mg 04/29/24 18:20 04/29/24 21:42 Alteplase 2 Mg Vial (Cathflo) IV PUSH 2 mg ONCE PRN Administration Line Occlusion Artificial Tears 1 drop 04/27/24 08:37 Artificial Tears Ophth Soln 15 Ml Bottle EACH EYE QID PRN Dry Eye(s) Atorvastatin Calcium 20 mg 04/30/24 09:00 Atorvastatin 20 Mg Tablet BY MOUTH DAILY ROSY Clonidine HCl 1 patch 05/01/24 09:00 05/01/24 11:36 Clonidine 0.1 Mg/24 Hr Patch TRANSDERM 1 patch WEEKLY ROSY Administration Dextrose 12.5 gm 04/22/24 23:06 Dextrose 50% 25 Gm/50 Ml Syringe IV PUSH PRN PRN Hypoglycemia Protocol Glucagon 1 mg 04/22/24 23:06 Glucagon For Inj 1 Mg Vial IM PRN PRN Hypoglycemia Protocol Glucose 15 gm 04/22/24 23:06 Glucose Oral Gel 15 Gm Of Glucse In 37.5 Gm Tube PO PRN PRN Hypoglycemia Protocol Heparin Sodium (Porcine) 4,000 units 05/02/24 16:05 Heparin Sodium 5,000 Units/Ml Vial IV PUSH PRN PRN aPTT 55 - 70 seconds Heparin Sodium (Porcine) 7,500 units 05/02/24 16:05 05/02/24 23:22 Heparin Sodium 5,000 Units/Ml Vial IV PUSH 7,500 units PRN PRN Administration aPTT less than 55 seconds Hydralazine HCl 10 mg 04/25/24 08:00 05/03/24 01:47 Hydralazine Hcl 20 Mg/Ml Vial IV PUSH 10 mg Q4H PRN Administration Blood Pressure - High Dextrose 1,000 mls @ 100 mls/hr 04/22/24 23:06 Dextrose 5% 1,000 Ml IVPB PRN PRN Hypoglycemia Protocol Dextrose 1,000 mls @ 50 mls/hr 04/25/24 10:46 Dextrose 10% IV CONT .Q20H PRN if PN is interrupted Multivitamins 2.5 ml/ 2,005 mls @ 50 mls/hr 04/25/24 12:00 05/03/24 15:52 Multivitamins 2.5 ml/ Amino IV CONT 50 mls/hr Acids/Dextrose .Q24H ROSY Administration Protocol Fat Emulsion Intravenous 250 mls @ 20.833 mls/hr 04/25/24 12:00 05/03/24 15:52 Lipids 20% IVPB 20.83 mls/hr Q24H ROSY Administration Piperacillin/Tazobactam/Dextrose 3.375 gm in 50 mls @ 100 mls/hr 04/28/24 12:00 05/03/24 17:19 Zosyn 3.375 Gm/Ns 50 Ml IVPB 05/05/24 23:59 100 mls/hr Q6HR ROSY Administration Heparin Sodium/Dextrose 25,000 units in 250 mls @ 19 mls/hr 05/02/24 16:05 05/03/24 11:53 Heparin Sodium/D5w 100 Units/Ml IV CONT 1,900 units/hr .[id number] ROSY 19 mls/hr Titration Protocol 1,900 UNITS/HR Fluconazole 200 mg in 100 mls @ 100 mls/hr 05/03/24 21:00 Diflucan 200 Mg/Nacl 100 Ml IVPB 05/05/24 23:59 QHS ROSY Ipratropium [place] 0.5 mg 04/23/24 14:00 05/03/24 13:42 Ipratropium Br 0.02% Inh Soln 0.5 Mg/2.5 Ml Vial INHALATION 0.5 mg Q6HRT ROSY Administration Levalbuterol HCl 0.63 mg 04/23/24 14:00 05/03/24 13:42 Levalbuterol Neb 1.25 Mg/3 Ml INHALATION 0.63 mg Q6HRT ROSY Administration Lidocaine 1 patch 04/27/24 16:35 05/03/24 08:34 Lidocaine 5% Patch TRANSDERM 1 patch DAILY ROSY Administration Lorazepam 0.5 mg 04/27/24 19:01 05/02/24 20:17 Lorazepam Inj (*Crx) 2 Mg/Ml Vial IV PUSH 0.5 mg HS PRN Administration Sleep Metoclopramide HCl 10 mg 04/28/24 12:00 05/03/24 17:18 Metoclopramide Hcl Inj 10 Mg/2 Ml Vial IV PUSH 10 mg Q6HR ROSY Administration Morphine Sulfate 4 mg 04/22/24 22:02 05/03/24 17:18 Morphine Sulfate (*Crx) 4 Mg/Ml Inj IV PUSH 4 mg Q3H PRN Administration Pain Rated 7-10 Pantoprazole Sodium 40 mg 04/26/24 21:00 05/03/24 08:35 Pantoprazole Sodium Iv 40 Mg Vial IV PUSH 40 mg Q12HR ROSY Administration Perflutren Lipid Microsphere 0 ml 05/01/24 11:01 Perflutren Lipid Microspheres 1.5 Ml Vial Diluted To 10 Ml Total Volume IV PUSH 05/04/24 11:01 ONCE PRN adequate visualization Protocol Sodium Chloride 10 ml 04/23/24 14:00 05/03/24 11:18 Central Line Flush IV PUSH 10 ml Q8HR ROSY Administration Sodium Chloride 20 ml 04/23/24 10:16 05/03/24 04:55 Central Line Flush IV PUSH 20 ml PRN PRN Administration after blood draws Radiology Results: ITS Impressions Chest/Abdomen/Pelvis CTA 04/22/24 18:10 IMPRESSION: Perforated viscus with a large amount of free air and fluid, with mural thickening in the distal stomach and multiple punctate foci of extraluminal air in this area for which site of perforation is suspected. Renal Ultrasound 04/24/24 11:58 IMPRESSION: Simple cyst in the left kidney upper pole. Other appearances are unremarkable. Upper GI Series 04/28/24 16:58 IMPRESSION: 1. Likely locally contained exophytic mucosal leakage of contrast at the gastric antrum at the site of a reported repair ulcer. The irregular margins and absence of more diffuse distribution of the contrast with no contrast extending along the adjacent drainage catheters suggests that this likely remains confined by a reported omental patch. Definitive determination is required would consider repeat contrast contrast injection into the gastrostomy tube with subsequent CT imaging. Chest X-Ray 05/01/24 06:24 IMPRESSION: Interval increase in the left-sided pleural effusion with moderate pulmonary vascular congestion, as detailed above. Lower Extremity CTA 05/02/24 16:36 IMPRESSION: 1. Scattered atherosclerotic plaque in the arteries of the left lower limb as detailed above without a discrete hemodynamic significant stenosis. Runoff below the ankle in the left posterior tibial artery this supplies the foot. Atretic distal peroneal and anterior tibial arteries with intraluminal contrast becoming indiscernible at the level of the ankle and with no appreciable contrast in the dorsalis pedis artery. Abdomen CT 05/03/24 10:41 IMPRESSION: 1. Perforation of the posterior aspect of the gastric antrum with extraluminal leakage of contrast. 2. Small volume of ascites. 3. Small pleural effusions. ADDENDUM: 05/03/24 1331 The extraluminal contrast remains near the site of perforation and may be contained by the omental patch. I discussed these findings with Dr. Moreno. Labs Labs: Laboratory Tests 05/03/24 04:51 05/03/24 04:51 Calcium 8.5
--- NOTE | 2024-05-03 11:40 | PCNFU ---
Nutrition Follow-Up Complete: Inadequate oral intake related to altered GI function as evidenced by need for full TPN Goal: Meet estimated nutrition needs Patient is progressing towards goal. We will continue current goal. Pt current nutrition is TPN at 50 ml/hr. Last recorded weight is 125.2 kg, up from 123 kg on admit. Bowel Motility: BM reported 05/01 Labs Reviewed: Glu 134, Cr 2.10, BUN 58, GFR 31, Hct 29.7, Hgb 9.7 Meds Noted: Protonix, Reglan, Zosyn, Diflucan, Clinimix E 5/15 at 50ml/hr with 250 ml of 20% Lipid Emulsion. Skin: WNL Additional Notes: Upper GI planned for today. Patient remains on a TPN at this time providing 1352 kcal/60 gm protein. Meeting 73% kcal needs at 15 kcal/kg and 61% protein needs at 0.8-1.0 gm protein. If tube feedings start would recommend Jevity 1.5 at 20 ml/hr goal rate at 60 ml/hr. Monitoring TPN tolerance, GI function, plan of care, weights, labs, orders Follow up Thursday/Thursday
[2024-05-03 12:21] LABS: Glucose Point of Care 113 mg/dl (65-105)
[2024-05-03] MEDS: FAT EMULSIONS IV 20% 250 ML 20.83 ML IVPB (15:52)
[2024-05-03] MEDS: AMINO ACIDS 5%/DEXTROSE 15% 2,000 ML with MULTIVITAMINS-12 INJ VIAL 1 2.5 ML, MULTIVITA... 50 ML IV CONT (15:52)
[2024-05-03 18:46] LABS: Glucose Point of Care 116 mg/dl (65-105)
[2024-05-03] MEDS: FLUCONAZOLE 200 MG/NACL 100 ML 200 MG/100 ML BAG 100 MG IVPB (20:24)
[2024-05-03] MEDS: LORazepam INJ (*CRX) 2 MG/ML VIAL 0.5 MG IV PUSH (21:48)
[2024-05-03 23:52] LABS: Glucose Point of Care 121 mg/dl (65-105)
[2024-05-04] VITALS (11 sets, daily range): BP systolic 130–140; BP diastolic 50–58; PULSE 75–81; RESP 17–20; TEMP 36.4–36.7; O2SAT 96–100
[2024-05-04] MEDS: METOCLOPRAMIDE HCL INJ 10 MG/2 ML VIAL IV PUSH ×3 (05:25→17:12)
[2024-05-04] MEDS: CENTRAL LINE FLUSH 10 ML IV PUSH ×4 (05:25→20:35)
[2024-05-04] MEDS: CENTRAL LINE FLUSH 20 ML IV PUSH (05:25)
[2024-05-04] MEDS: PIPERACILLN/TAZ 3.375GM/NS50ML 3.375 GM/50 ML BAG IVPB ×3 (05:25→17:12)
[2024-05-04 05:40] LABS: Anion Gap 12 mmol/L (4-12); Blood Urea Nitrogen 62 mg/dL (9-20); Calcium 8.2 mg/dL (8.4-10.2); Carbon Dioxide 19 mmol/L (22-30); Chloride 111 mmol/L (98-107); Estimated CRCL calculation 33 ml/min; Estimated Glomerular Filt Rate 26; Glucose 129 mg/dL (65-110); Potassium 3.2 mmol/L (3.4-5.0); Sodium 142 mmol/L (137-145)
[2024-05-04 05:42] LABS: Partial Thromboplastin Time 124.5 Seconds (22.3-36.8)
[2024-05-04 05:44] LABS: Glucose Point of Care 122 mg/dl (65-105)
[2024-05-04] MEDS: MORPHINE SULFATE (*CRX) 4 MG/ML INJ IV PUSH ×4 (07:17→20:32)
[2024-05-04] MEDS: IPRATROPIUM BR 0.02% INH SOLN 0.5 MG/2.5 ML VIAL INHALATION (07:25)
[2024-05-04] MEDS: LEVALBUTEROL NEB 1.25 MG/3 ML 0.63 MG INHALATION (07:25)
[2024-05-04] MEDS: PANTOPRAZOLE SODIUM IV 40 MG VIAL IV PUSH ×2 (08:20→20:30)
[2024-05-04] MEDS: KCL 40 MEQ/WATER 100 ML 100 ML 25 ML IVPB (08:20)
[2024-05-04] MEDS: LIDOCAINE 5% PATCH 1 PATCH TRANSDERM (08:20)
[2024-05-04 08:56] LABS: Triglycerides 172 mg/dL (<150)
--- NOTE | 2024-05-04 09:52 | P.PNGS_ITS ---
Progress Note: A&P Assessment and Plan (1) Perforated abdominal viscus: Code(s): R19.8 - Other specified symptoms and signs involving the digestive system and abdomen Status: Acute Assessment and Plan: * Postop day 12 status post laparotomy with repair of large perforated gastric ulcer with omental Clarence patch. CBC pending this morning. CT scan with WS contrast through the gastrostomy tube showed still a possible small but contained gastric leak. Yesterday after the CT scan, we started continuous water at 20 cc/hr through the gastrostomy tube while monitoring the ELSA drains output. So far, ELSA drainage has been minimal, and actually decreased over the past 24 hours. Continue TPN for now. Will consider starting trickle tube feedings if he is able to tolerate the water infusion. Continue IV Zosyn and f luconazole. We have ordered a PICC line that should be placed this morning, with a goal of removing the right IJ central line once the PICC is in place. Incision is healing well. May remove tono later today or tomorrow. Continue working with PT/OT to increase activity as tolerated, up to chair today. (2) Malnutrition following gastrointestinal surgery: Code(s): K91.2 - Postsurgical malabsorption, not elsewhere classified Status: Acute Assessment and Plan: * Continue TPN, see plan above. (3) PAD (peripheral artery disease): Code(s): I73.9 - Peripheral vascular disease, unspecified Status: Acute Assessment and Plan: * Continue heparin infusion for now and we will plan to transition to Lovenox injections once his right IJ central line has been removed. Plan I have discussed the patient's case and plan of care with Dr. Moreno. Subjective Subjective Date/Time Seen: 05/04/24 09:52 Post Op day: 12 (Exploratory laparotomy with repair of antral gastric ulcer with omental Clarence patch, placement of open gastrostomy tube) Patient reports: no flatus, no bowel movement and afebrile Interval history: Patient reports having some lower abdominal pain that radiated into his back earlier this morning, which quickly resolved. No abd pain at this time. No flatus or BM. He has no specific complaints at this time. Per staff, he worked with therapy and was 2 assist to get up to [place] steady for transfer and had to use the tate to get him back to bed. ELSA drains with only 5 cc out of drain #1 and #2 yesterday over day shift and no documented output overnight. 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 Exam Const: General: comfortable and no acute distress Orientation/consciousness: patient oriented x3 GI: Other: Abdomen mildly distended and soft. He has tenderness near his incisions and mild tenderness in the upper abdomen. Today, he is also mildly tender in the LLQ. ELSA drains x 2 with scant serous output. Gastrostomy tube in place with dry gauze dressing around the tube and it has water running through at 20 cc/hr. Skin around the G-tube without erythema or drainage. Incision dry and tono intact, no erythema. Good bowel sounds today. Urinary Catheter: Urinary Catheter: patent and draining and urine clear Neuro: General: moves all extremities and no focal motor deficits Extrem: General: no calf tenderness and no edema Other: Bilateral lower extremities are both warm with good color. No mottling or pallor on the left lower extremity. Movement is equal bilaterally with ROM intact. Bilateral weak, but palpable pedal and PT pulses. Objective Data Vital Signs Vital Signs: Vital Signs - 24 hr 05/03/24 12:00 05/03/24 13:44 05/03/24 13:44 Temperature Pulse Rate 77 80 Respiratory Rate 16 Blood Pressure Pulse Oximetry 97 Oxygen Delivery Room Air 05/03/24 14:00 05/03/24 16:00 05/03/24 19:45 Temperature 97.6 F 97.7 F Pulse Rate 80 77 77 Respiratory Rate 17 17 Blood Pressure 140/62 155/63 H Pulse Oximetry 97 97 Oxygen Delivery 05/03/24 20:00 05/03/24 20:00 05/03/24 21:17 Temperature Pulse Rate 78 81 Respiratory Rate 16 Blood Pressure Pulse Oximetry Oxygen Delivery Room Air 05/03/24 21:27 05/03/24 21:27 05/04/24 00:00 Temperature Pulse Rate 78 81 Respiratory Rate 16 Blood Pressure Pulse Oximetry 97 Oxygen Delivery Room Air 05/04/24 04:00 05/04/24 05:13 05/04/24 07:27 Temperature 97.7 F Pulse Rate 75 75 Respiratory Rate 18 Blood Pressure 140/55 L Pulse Oximetry 97 96 Oxygen Delivery Room Air 05/04/24 07:27 05/04/24 07:42 Temperature Pulse Rate 76 78 Respiratory Rate 18 20 Blood Pressure Pulse Oximetry Oxygen Delivery Intake/Output Intake/Output: Intake & Output 05/01/24 05/02/24 05/03/24 05/04/24 23:59 23:59 23:59 23:59 Intake Total 780 2650.7 2321.1 867 Output Total 2162 1800 2330 800 Balance -1382 850.7 -8.9 67 Meds/Results Medications: Active Medications Generic Name Dose Route Start Last Admin Trade Name Freq PRN Reason Stop Dose Admin Acetaminophen 650 mg 04/26/24 22:19 04/26/24 22:57 Acetaminophen 650 Mg Suppository RECTAL 650 mg Q6H PRN Administration Mild Pain (1-3) or Fever Alteplase, Recombinant 2 mg 04/29/24 18:20 04/29/24 21:42 Alteplase 2 Mg Vial (Cathflo) IV PUSH 2 mg ONCE PRN Administration Line Occlusion Artificial Tears 1 drop 04/27/24 08:37 Artificial Tears Ophth Soln 15 Ml Bottle EACH EYE QID PRN Dry Eye(s) Atorvastatin Calcium 20 mg 04/30/24 09:00 Atorvastatin 20 Mg Tablet BY MOUTH DAILY ROSY Clonidine HCl 1 patch 05/01/24 09:00 05/01/24 11:36 Clonidine 0.1 Mg/24 Hr Patch TRANSDERM 1 patch WEEKLY ROSY Administration Dextrose 12.5 gm 04/22/24 23:06 Dextrose 50% 25 Gm/50 Ml Syringe IV PUSH PRN PRN Hypoglycemia Protocol Glucagon 1 mg 04/22/24 23:06 Glucagon For Inj 1 Mg Vial IM PRN PRN Hypoglycemia Protocol Glucose 15 gm 04/22/24 23:06 Glucose Oral Gel 15 Gm Of Glucse In 37.5 Gm Tube PO PRN PRN Hypoglycemia Protocol Heparin Sodium (Porcine) 4,000 units 05/02/24 16:05 Heparin Sodium 5,000 Units/Ml Vial IV PUSH PRN PRN aPTT 55 - 70 seconds Heparin Sodium (Porcine) 7,500 units 05/02/24 16:05 05/02/24 23:22 Heparin Sodium 5,000 Units/Ml Vial IV PUSH 7,500 units PRN PRN Administration aPTT less than 55 seconds Hydralazine HCl 10 mg 04/25/24 08:00 05/03/24 21:47 Hydralazine Hcl 20 Mg/Ml Vial IV PUSH 10 mg Q4H PRN Administration Blood Pressure - High Dextrose 1,000 mls @ 100 mls/hr 04/22/24 23:06 Dextrose 5% 1,000 Ml IVPB PRN PRN Hypoglycemia Protocol Dextrose 1,000 mls @ 50 mls/hr 04/25/24 10:46 Dextrose 10% IV CONT .Q20H PRN if PN is interrupted Multivitamins 2.5 ml/ 2,005 mls @ 50 mls/hr 04/25/24 12:00 05/03/24 15:52 Multivitamins 2.5 ml/ Amino IV CONT 50 mls/hr Acids/Dextrose .Q24H ROSY Administration Protocol Fat Emulsion Intravenous 250 mls @ 20.833 mls/hr 04/25/24 12:00 05/04/24 03:53 Lipids 20% IVPB Infused Q24H ROSY Infusion Piperacillin/Tazobactam/Dextrose 3.375 gm in 50 mls @ 100 mls/hr 04/28/24 12:00 05/04/24 05:25 Zosyn 3.375 Gm/Ns 50 Ml IVPB 05/05/24 23:59 100 mls/hr Q6HR ROSY Administration Heparin Sodium/Dextrose 25,000 units in 250 mls @ 17 mls/hr 05/02/24 16:05 05/04/24 07:46 Heparin Sodium/D5w 100 Units/Ml IV CONT Not Given .[id number] ROSY Protocol 1,700 UNITS/HR Fluconazole 200 mg in 100 mls @ 100 mls/hr 05/03/24 21:00 05/03/24 21:24 Diflucan 200 Mg/Nacl 100 Ml IVPB 05/05/24 23:59 Infused QHS ORSY Infusion Potassium Chloride 100 mls @ 25 mls/hr 05/04/24 07:45 05/04/24 08:20 Kcl 40 Meq/Water 100 Ml IVPB 05/04/24 11:44 25 mls/hr ONCE ONE Administration Ipratropium Mobile 0.5 mg 05/04/24 09:32 Ipratropium Br 0.02% Inh Soln 0.5 Mg/2.5 Ml Vial INHALATION Q6HRT PRN Shortness Of Breath Levalbuterol HCl 0.63 mg 05/04/24 09:32 Levalbuterol Neb 1.25 Mg/3 Ml INHALATION Q6HRT PRN Shortness Of Breath Lidocaine 1 patch 04/27/24 16:35 05/04/24 08:20 Lidocaine 5% Patch TRANSDERM 1 patch DAILY ROSY Administration Lorazepam 0.5 mg 04/27/24 19:01 05/03/24 21:48 Lorazepam Inj (*Crx) 2 Mg/Ml Vial IV PUSH 0.5 mg HS PRN Administration Sleep Metoclopramide HCl 10 mg 04/28/24 12:00 05/04/24 05:25 Metoclopramide Hcl Inj 10 Mg/2 Ml Vial IV PUSH 10 mg Q6HR ROSY Administration Morphine Sulfate 4 mg 04/22/24 22:02 05/04/24 07:17 Morphine Sulfate (*Crx) 4 Mg/Ml Inj IV PUSH 4 mg Q3H PRN Administration Pain Rated 7-10 Pantoprazole Sodium 40 mg 04/26/24 21:00 05/04/24 08:20 Pantoprazole Sodium Iv 40 Mg Vial IV PUSH 40 mg Q12HR ROSY Administration Perflutren Lipid Microsphere 0 ml 05/01/24 11:01 Perflutren Lipid Microspheres 1.5 Ml Vial Diluted To 10 Ml Total Volume IV PUSH 05/04/24 11:01 ONCE PRN adequate visualization Protocol Sodium Chloride 10 ml 04/23/24 14:00 05/04/24 05:25 Central Line Flush IV PUSH 10 ml Q8HR ROSY Administration Sodium Chloride 20 ml 04/23/24 10:16 05/04/24 05:25 Central Line Flush IV PUSH 20 ml PRN PRN Administration after blood draws Radiology Results: ITS Impressions Chest/Abdomen/Pelvis CTA 04/22/24 18:10 IMPRESSION: Perforated viscus with a large amount of free air and fluid, with mural thickening in the distal stomach and multiple punctate foci of extraluminal air in this area for which site of perforation is suspected. Renal Ultrasound 04/24/24 11:58 IMPRESSION: Simple cyst in the left kidney upper pole. Other appearances are unremarkable. Upper GI Series 04/28/24 16:58 IMPRESSION: 1. Likely locally contained exophytic mucosal leakage of contrast at the gastric antrum at the site of a reported repair ulcer. The irregular margins and absence of more diffuse distribution of the contrast with no contrast extending along the adjacent drainage catheters suggests that this likely remains confined by a reported omental patch. Definitive determination is required would consider repeat contrast contrast injection into the gastrostomy tube with subsequent CT imaging. Chest X-Ray 05/01/24 06:24 IMPRESSION: Interval increase in the left-sided pleural effusion with moderate pulmonary vascular congestion, as detailed above. Lower Extremity CTA 05/02/24 16:36 IMPRESSION: 1. Scattered atherosclerotic plaque in the arteries of the left lower limb as detailed above without a discrete hemodynamic significant stenosis. Runoff below the ankle in the left posterior tibial artery this supplies the foot. Atretic distal peroneal and anterior tibial arteries with intraluminal contrast becoming indiscernible at the level of the ankle and with no appreciable contrast in the dorsalis pedis artery. Abdomen CT 05/03/24 10:41 IMPRESSION: 1. Perforation of the posterior aspect of the gastric antrum with extraluminal leakage of contrast. 2. Small volume of ascites. 3. Small pleural effusions. ADDENDUM: 05/03/24 1331 The extraluminal contrast remains near the site of perforation and may be contai sally by the omental patch. I discussed these findings with Dr. Moreno. Labs Labs: Laboratory Results - last 24 hr 05/03/24 05/03/24 05/03/24 11:14 11:54 17:58 APTT 75.0 H 72.0 H Sodium Potassium Chloride Carbon Dioxide Anion Gap BUN Creatinine Estim Creat Clear Calc Estimated GFR Glucose POC Capillary Glucose 113 H Calcium Triglycerides 05/03/24 05/03/24 05/04/24 18:37 23:48 05:02 APTT Sodium Potassium Chloride Carbon Dioxide Anion Gap BUN Creatinine Estim Creat Clear Calc Estimated GFR Glucose POC Capillary Glucose 116 H 121 H Calcium Triglycerides 172 H 05/04/24 05/04/24 05:03 05:40 APTT 124.5 H Sodium 142 Potassium 3.2 L Chloride 111 H Carbon Dioxide 19 L Anion Gap 12 BUN 62 H Creatinine 2.40 H Estim Creat Clear Calc 33 Estimated GFR 26 L Glucose 129 H POC Capillary Glucose 122 H Calcium 8.2 L Triglycerides
[2024-05-04] MEDS: HEPARIN SOD/D5W 100 UNITS/ML 25,000 UNITS/250 ML BAG 17 UNITS IV CONT (10:02)
[2024-05-04 10:20] LABS: Hematocrit 28.6 % (42.0-52.0); Hemoglobin 9.1 g/dL (14.0-18.0); Mean Corpuscular HGB Conc 31.8 g/dl (32-36); Mean Corpuscular Hemoglobin 29.4 pg (26-34); Mean Corpuscular Volume 92.3 fl (80-100); Mean Platelet Volume 12.5 fl (7.4-10.4); Platelet Count Result 275 k/mm3 (150-375); Red Cell Distribution Width 15.1 % (11.5-14.5)
--- NOTE | 2024-05-04 10:28 | PCPTNOTE ---
Attempted to see patient for PT, however per RN patient will be getting a PICC line soon and will have to be in bed. Patient unable to bed seen for this reason.
--- NOTE | 2024-05-04 11:25 | P.PNIM_ITS ---
Progress Note: A&P Assessment and Plan (1) Perforated abdominal viscus: Code(s): R19.8 - Other specified symptoms and signs involving the digestive system and abdomen Status: Acute Assessment and Plan: * Septic shock in setting of peritonitis with perforated gastric ulcer: * Shock has resolved * Status post exploratory laparotomy with repair of antral gastric ulcer with omental Clarence patch, open gastrostomy tube * Surgery is following * Continues to be on Zosyn, Diflucan * Currently on TPN, start tube feeding today. * Await bowel function to return * Electrolyte supplementation as per pharmacy as patient is on TPN * Continue with PPI. * Pain regimen. * Monitor labs. (2) Malnutrition following gastrointestinal surgery: Code(s): K91.2 - Postsurgical malabsorption, not elsewhere classified Status: Acute Assessment and Plan: * Patient has been receiving TPN. * Starting tube feeding today at 20 ml/hr to see how patient tolerates. * Surgery following. (3) Acute kidney injury superimposed on stage 3b chronic kidney disease: Code(s): N17.9 - Acute kidney failure, unspecified; N18.32 - Chronic kidney disease, stage 3b Status: Acute Assessment and Plan: * Avoid nephrotoxins * BUN 62, Creatinine 2.40, & GFR 26. * Nephrology following * Renal ultrasound was unremarkable for any acute issues. * Monitor labs. (4) HTN (hypertension): Code(s): I10 - Essential (primary) hypertension Status: Acute Assessment and Plan: * Blood pressure 140/55. Continue Clonidine patch and Hydralazine PRN. (5) Generalized weakness: Code(s): R53.1 - Weakness Status: Acute Assessment and Plan: * PT/OT (6) Hypokalemia: Code(s): E87.6 - Hypokalemia Status: Acute Assessment and Plan: * Potassium 3.2. * Potassium chloride 40 meq IVPB x1 given. * Monitor levels. Plan 78-year-old male with a past medical history of the osteoarthritis on chronic NSAID therapy, hyperlipidemia, hypertension, prior umbilical hernia repair, perforated appendix status post resection 2022 who presented to the ER via EMS with 3 days of sharp radiating abdominal pain. CT demonstrated perforated viscus with large amount of free air and fluid with mural thickening of the distal stomach and multiple punctate foci of extraluminal air with suspected perforated ulcer. Patient was evaluated by the surgeon in the ER was taken directly to the OR. Status post exploratory laparotomy with repair of antral gastric ulcer with omental Clarence patch. Placement of open gastrostomy tube on 04/22/2024. Patient was admitted to the ICU with shock requiring pressor support, intubated. Was eventually extubated on 04/25/2024. He was off pressor support on 04/24/2024. Has been on Zosyn and Diflucan as per surgery. Subjective Date/time seen: 05/04/24 11:25 Interval history: Patient lying in bed with daughter at bedside. Patient reports pain in his back that is a 7 , constant, and aching. Patient denies chest pain, palpitations, headache, dizziness, nausea, or vomiting. Surgery plans to start patient on tube feedings today. Review of Systems Review of Systems: All systems reviewed & are unremarkable except as noted in HPI and below Exam Const: General: no acute distress and uncomfortable Resp: Effort & Inspection: normal respiratory effort Auscultation: d iminished lung sounds Cardio: Rate: regular rate Rhythm: regular rhythm Other: Telemetry- 72. GI: GI Palp: Yes Soft to palpation Auscultation: normal bowel sounds Neuro: Speech: normal speech Extrem: General: no pedal edema Other: 1+PP bilateral feet are warm. Psych: Mental Status: mental status grossly normal Affect: normal affect Objective Data Vital Signs Vital Signs: Vital Signs - 24 hr 05/03/24 12:00 05/03/24 13:44 05/03/24 13:44 Temperature Pulse Rate 77 80 Respiratory Rate 16 Blood Pressure Pulse Oximetry 97 Oxygen Delivery Room Air 05/03/24 14:00 05/03/24 16:00 05/03/24 19:45 Temperature 97.6 F 97.7 F Pulse Rate 80 77 77 Respiratory Rate 17 17 Blood Pressure 140/62 155/63 H Pulse Oximetry 97 97 Oxygen Delivery 05/03/24 20:00 05/03/24 20:00 05/03/24 21:17 Temperature Pulse Rate 78 81 Respiratory Rate 16 Blood Pressure Pulse Oximetry Oxygen Delivery Room Air 05/03/24 21:27 05/03/24 21:27 05/04/24 00:00 Temperature Pulse Rate 78 81 Respiratory Rate 16 Blood Pressure Pulse Oximetry 97 Oxygen Delivery Room Air 05/04/24 04:00 05/04/24 05:13 05/04/24 07:27 Temperature 97.7 F Pulse Rate 75 75 Respiratory Rate 18 Blood Pressure 140/55 L Pulse Oximetry 97 96 Oxygen Delivery Room Air 05/04/24 07:27 05/04/24 07:42 05/04/24 08:00 Temperature Pulse Rate 76 78 75 Respiratory Rate 18 20 Blood Pressure Pulse Oximetry Oxygen Delivery 05/04/24 08:00 Temperature Pulse Rate Respiratory Rate Blood Pressure Pulse Oximetry Oxygen Delivery Room Air Intake/Output Intake/Output: Intake & Output 05/01/24 05/02/24 05/03/24 05/04/24 23:59 23:59 23:59 23:59 Intake Total 780 2650.7 2321.1 934 Output Total 2162 1800 2330 800 Balance -1382 850.7 -8.9 134 Meds/Results Medications: Active Medications Generic Name Dose Route Start Last Admin Trade Name Freq PRN Reason Stop Dose Admin Acetaminophen 650 mg 04/26/24 22:19 04/26/24 22:57 Acetaminophen 650 Mg Suppository RECTAL 650 mg Q6H PRN Administration Mild Pain (1-3) or Fever Alteplase, Recombinant 2 mg 04/29/24 18:20 04/29/24 21:42 Alteplase 2 Mg Vial (Cathflo) IV PUSH 2 mg ONCE PRN Administration Line Occlusion Artificial Tears 1 drop 04/27/24 08:37 Artificial Tears Ophth Soln 15 Ml Bottle EACH EYE QID PRN Dry Eye(s) Atorvastatin Calcium 20 mg 04/30/24 09:00 Atorvastatin 20 Mg Tablet BY MOUTH DAILY [facility] Clonidine HCl 1 patch 05/01/24 09:00 05/01/24 11:36 Clonidine 0.1 Mg/24 Hr Patch TRANSDERM 1 patch WEEKLY ROSY Administration Dextrose 12.5 gm 04/22/24 23:06 Dextrose 50% 25 Gm/50 Ml Syringe IV PUSH PRN PRN Hypoglycemia Protocol Glucagon 1 mg 04/22/24 23:06 Glucagon For Inj 1 Mg Vial IM PRN PRN Hypoglycemia Protocol Glucose 15 gm 04/22/24 23:06 Glucose Oral Gel 15 Gm Of Glucse In 37.5 Gm Tube PO PRN PRN Hypoglycemia Protocol Heparin Sodium (Porcine) 4,000 units 05/02/24 16:05 Heparin Sodium 5,000 Units/Ml Vial IV PUSH PRN PRN aPTT 55 - 70 seconds Heparin Sodium (Porcine) 7,500 units 05/02/24 16:05 05/02/24 23:22 Heparin Sodium 5,000 Units/Ml Vial IV PUSH 7,500 units PRN PRN Administration aPTT less than 55 seconds Hydralazine HCl 10 mg 04/25/24 08:00 05/03/24 21:47 Hydralazine Hcl 20 Mg/Ml Vial IV PUSH 10 mg Q4H PRN Administration Blood Pressure - High Dextrose 1,000 mls @ 100 mls/hr 04/22/24 23:06 Dextrose 5% 1,000 Ml IVPB PRN PRN Hypoglycemia Protocol Dextrose 1,000 mls @ 50 mls/hr 04/25/24 10:46 Dextrose 10% IV CONT .Q20H PRN if PN is interrupted Multivitamins 2.5 ml/ 2,005 mls @ 50 mls/hr 04/25/24 12:00 05/03/24 15:52 Multivitamins 2.5 ml/ Amino IV CONT 50 mls/hr Acids/Dextrose .Q24H ROSY Administration Protocol Fat Emulsion Intravenous 250 mls @ 20.833 mls/hr 04/25/24 12:00 05/04/24 03:53 Lipids 20% IVPB Infused Q24H ROSY Infusion Piperacillin/Tazobactam/Dextrose 3.375 gm in 50 mls @ 100 mls/hr 04/28/24 12:00 05/04/24 05:25 Zosyn 3.375 Gm/Ns 50 Ml IVPB 05/05/24 23:59 100 mls/hr Q6HR ROSY Administration Heparin Sodium/Dextrose 25,000 units in 250 mls @ 17 mls/hr 05/02/24 16:05 05/04/24 10:02 Heparin Sodium/D5w 100 Units/Ml IV CONT 1,700 units/hr .[id number] ROSY 17 mls/hr Administration Protocol 1,700 UNITS/HR Fluconazole 200 mg in 100 mls @ 100 mls/hr 05/03/24 21:00 05/03/24 21:24 Diflucan 200 Mg/Nacl 100 Ml IVPB 05/05/24 23:59 Infused QHS ROSY Infusion Potassium Chloride 100 mls @ 25 mls/hr 05/04/24 07:45 05/04/24 08:20 Kcl 40 Meq/Water 100 Ml IVPB 05/04/24 11:44 25 mls/hr ONCE ONE Administration Ipratropium [place] 0.5 mg 05/04/24 09:32 Ipratropium Br 0.02% Inh Soln 0.5 Mg/2.5 Ml Vial INHALATION Q6HRT PRN Shortness Of Breath Levalbuterol HCl 0.63 mg 05/04/24 09:32 Levalbuterol Neb 1.25 Mg/3 Ml INHALATION Q6HRT PRN Shortness Of Breath Lidocaine 1 patch 04/27/24 16:35 05/04/24 08:20 Lidocaine 5% Patch TRANSDERM 1 patch DAILY ROSY Administration Lorazepam 0.5 mg 04/27/24 19:01 05/03/24 21:48 Lorazepam Inj (*Crx) 2 Mg/Ml Vial IV PUSH 0.5 mg HS PRN Administration Sleep Metoclopramide HCl 10 mg 04/28/24 12:00 05/04/24 05:25 Metoclopramide Hcl Inj 10 Mg/2 Ml Vial IV PUSH 10 mg Q6HR ROSY Administration Morphine Sulfate 4 mg 04/22/24 22:02 05/04/24 07:17 Morphine Sulfate (*Crx) 4 Mg/Ml Inj IV PUSH 4 mg Q3H PRN Administration Pain Rated 7-10 Pantoprazole Sodium 40 mg 04/26/24 21:00 05/04/24 08:20 Pantoprazole Sodium Iv 40 Mg Vial IV PUSH 40 mg Q12HR ROSY Administration Sodium Chloride 10 ml 04/23/24 14:00 05/04/24 05:25 Central Line Flush IV PUSH 10 ml Q8HR ROSY Administration Sodium Chloride 20 ml 04/23/24 10:16 05/04/24 05:25 Central Line Flush IV PUSH 20 ml PRN PRN Administration after blood draws Radiology Results: ITS Impressions Chest/Abdomen/Pelvis CTA 04/22/24 18:10 IMPRESSION: Perforated viscus with a large amount of free air and fluid, with mural thickening in the distal stomach and multiple punctate foci of extraluminal air in this area for which site of perforation is suspected. Renal Ultrasound 04/24/24 11:58 IMPRESSION: Simple cyst in the left kidney upper pole. Other appearances are unremarkable. Upper GI Series 04/28/24 16:58 IMPRESSION: 1. Likely locally contained exophytic mucosal leakage of contrast at the gastric antrum at the site of a reported repair ulcer. The irregular margins and absence of more diffuse distribution of the contrast with no contrast extending along the adjacent drainage catheters suggests that this likely remains confined by a reported omental patch. Definitive determination is required would consider repeat contrast contrast injection into the gastrostomy tube with subsequent CT imaging. Chest X-Ray 05/01/24 06:24 IMPRESSION: Interval increase in the left-sided pleural effusion with moderate pulmonary vascular congestion, as detailed above. Lower Extremity CTA 05/02/24 16:36 IMPRESSION: 1. Scattered atherosclerotic plaque in the arteries of the left lower limb as detailed above without a discrete hemodynamic significant stenosis. Runoff below the ankle in the left posterior tibial artery this supplies the foot. Atretic distal peroneal and anterior tibial arteries with intraluminal contrast becoming indiscernible at the level of the ankle and with no appreciable contrast in the dorsalis pedis artery. Abdomen CT 05/03/24 10:41 IMPRESSION: 1. Perforation of the posterior aspect of the gastric antrum with extraluminal leakage of contrast. 2. Small volume of ascites. 3. Small pleural effusions. ADDENDUM: 05/03/24 1331 The extraluminal contrast remains near the site of perforation and may be contained by the omental patch. I discussed these findings with Dr. Moreno. Labs Labs: Laboratory Results - last 24 hr 05/03/24 05/03/24 05/03/24 11:14 11:54 17:58 WBC RBC Hgb Hct MCV MCH MCHC RDW Plt Count MPV APTT 75.0 H 72.0 H Sodium Potassium Chloride Carbon Dioxide Anion Gap BUN Creatinine Estim Creat Clear Calc Estimated GFR Glucose POC Capillary Glucose 113 H Calcium Triglycerides 05/03/24 05/03/24 05/04/24 18:37 23:48 05:02 WBC RBC Hgb Hct MCV MCH MCHC RDW Plt Count MPV APTT Sodium Potassium Chloride Carbon Dioxide Anion Gap BUN Creatinine Estim Creat Clear Calc Estimated GFR Glucose POC Capillary Glucose 116 H 121 H Calcium Triglycerides 172 H 05/04/24 05/04/24 05/04/24 05:03 05:40 10:05 WBC 10.0 RBC 3.10 L Hgb 9.1 L Hct 28.6 L MCV 92.3 MCH 29.4 MCHC 31.8 L RDW 15.1 H Plt Count 275 MPV 12.5 H APTT 124.5 H Sodium 142 Potassium 3.2 L Chloride 111 H Carbon Dioxide 19 L Anion Gap 12 BUN 62 H Creatinine 2.40 H Estim Creat Clear Calc 33 Estimated GFR 26 L Glucose 129 H POC Capillary Glucose 122 H Calcium 8.2 L Triglycerides Quality VTE Prophylaxis VTE prophylaxis: mechanical ordered and pharmacologic ordered
[2024-05-04 12:14] LABS: Glucose Point of Care 114 mg/dl (65-105)
--- NOTE | 2024-05-04 13:16 | P.PNNP_ITS ---
Progress Note: A&P Assessment and Plan (1) Acute kidney injury: Code(s): N17.9 - Acute kidney failure, unspecified Status: Acute Assessment and Plan: * continues to fluctuate * suspect multifactorial etiology: * NSAID use * hypotension/hemodynmic instability/shock * sepsis/infection * third spacing * recent contrast exposure (with LE CTA on 05/02) * evaluation to date: * CT shows normal kidneys * renal u/s with simple cyst x 1 o/w unremarkable. * urine electrolytes are prerenal * CPK mildly elevated (but not enough to affect kidneys) * urine eosinophils negative * mild proteinuria * good urine output noted * follow trend of repeat labs and UOP (2) Stage 3b chronic kidney disease: Code(s): N18.32 - Chronic kidney disease, stage 3b Status: Chronic Assessment and Plan: * creatinine ~ 1.5mg/dl in November 2023 * suspect secondary to hypertension, peripheral vascular disease, and possibly chronic NSAID use as well as age-related change (3) Perforated gastric ulcer: Onset Date: 04/2024 Qualifiers: Gastric ulcer chronicity: acute Qualified Code(s): K25.1 - Acute gastric ulcer with perforation Code(s): K25.5 - Chronic or unspecified gastric ulcer with perforation Status: Acute Assessment and Plan: * suspect secondary to NSAID use * s/p exploratory laparotomy and repair of antral gastric ulcer with omental Clarence patch and placement of open gastrostomy tube (on 04/22) * on antibiotics * TPN for nutritional support * G-tube feeding when able * General Surgery following (4) PAD (peripheral artery disease): Code(s): I73.9 - Peripheral vascular disease, unspecified Status: Acute Assessment and Plan: * CTA of left lower extremity noted * suspect acute on chronic issue * on heparin gtt (with plan to transition to lovenox) (5) Acute respiratory failure: Code(s): J96.00 - Acute respiratory failure, unspecified whether with hypoxia or hypercapnia Status: Acute Assessment and Plan: * resolved * on room air * follow CXRs and respiratory status (6) Anemia: Code(s): D64.9 - Anemia, unspecified Status: Acute Assessment and Plan: * relatively stable * due to RIC, CKD, and acute illness * follow trend of H/H (7) Malnutrition following gastrointestinal surgery: Code(s): K91.2 - Postsurgical malabsorption, not elsewhere classified Status: Acute Assessment and Plan: * remains on TPN for now * plan tube feeds in no evidence of gastric leak * eventual goal is to transition to oral intake (8) HTN (hypertension): Code(s): I10 - Essential (primary) hypertension Status: Acute Assessment and Plan: * blood pressure slowly increasing * on PRN hydralazine and clonidine patch * resume oral meds when able to take po intake * follow trend of hemodynamics Will continue to follow. L Subjective Date/time seen: 05/04/24 13:16 Interval history: Follow-up for acute kidney injury/acute renal failure. Renal function/creatinine worsening since 05/01 when it had come down as low as 1.5mg/dl -- however, continues to make good urine output in spite of this; major complaint is that of back pain; no apparent distress noted; no other issues/events overnight or earlier this morning. Exam 2 Narrative: General: elderly but WD/WN male in NAD Heart: normal S1 and S2; no rub Lungs: clear anteriorly Abdomen: soft, nontender; some bowel sounds; +G-tube Extremities: no cyanosis or clubbing; trace - 1+ edema Skin: no rash Objective Data Vital Signs Vital Signs: Vital Signs Temp Pulse Resp BP Pulse Ox O2 Del Method 05/04/24 12:00 77 05/04/24 08:00 Room Air 05/04/24 08:00 75 05/04/24 07:42 78 20 05/04/24 07:27 76 18 05/04/24 07:27 96 Room Air 05/04/24 05:13 97.7 F 75 18 140/55 L 97 05/04/24 04:00 75 05/04/24 00:00 81 05/03/24 21:27 78 16 05/03/24 21:27 97 Room Air 05/03/24 21:17 81 16 05/03/24 20:00 78 05/03/24 20:00 Room Air 05/03/24 19:45 97.7 F 77 17 155/63 H 97 Intake/Output Intake/Output: Intake & Output 05/01/24 05/02/24 05/03/24 05/04/24 23:59 23:59 23:59 23:59 Intake Total 780 2650.7 2321.1 2275.9 Output Total 2162 1800 2330 800 Balance -1382 850.7 -8.9 1475.9 Meds/Results Medications: Active Medications Generic Name Dose Route Start Last Admin Trade Name Freq PRN Reason Stop Dose Admin Acetaminophen 650 mg 04/26/24 22:19 04/26/24 22:57 Acetaminophen 650 Mg Suppository RECTAL 650 mg Q6H PRN Administration Mild Pain (1-3) or Fever Artificial Tears 1 drop 04/27/24 08:37 Artificial Tears Ophth Soln 15 Ml Bottle EACH EYE QID PRN Dry Eye(s) Atorvastatin Calcium 20 mg 04/30/24 09:00 Atorvastatin 20 Mg Tablet BY MOUTH DAILY ROSY Clonidine HCl 1 patch 05/01/24 09:00 05/01/24 11:36 Clonidine 0.1 Mg/24 Hr Patch TRANSDERM 1 patch WEEKLY ROSY Administration Dextrose 12.5 gm 04/22/24 23:06 Dextrose 50% 25 Gm/50 Ml Syringe IV PUSH PRN PRN Hypoglycemia Protocol Enoxaparin Sodium 100 mg 05/04/24 16:00 05/04/24 15:03 Enoxaparin 100 Mg/Ml Syringe SUB-Q Not Given 0600,1800 [facility] Enoxaparin Sodium 25 mg 05/04/24 16:00 05/04/24 15:03 Enoxaparin 60 Mg/0.6 Ml Syringe SUB-Q Not Given 0600,1800 [facility] Glucagon 1 mg 04/22/24 23:06 Glucagon For Inj 1 Mg Vial IM PRN PRN Hypoglycemia Protocol Glucose 15 gm 04/22/24 23:06 Glucose Oral Gel 15 Gm Of Glucse In 37.5 Gm Tube PO PRN PRN Hypoglycemia Protocol Hydralazine HCl 10 mg 04/25/24 08:00 05/03/24 21:47 Hydralazine Hcl 20 Mg/Ml Vial IV PUSH 10 mg Q4H PRN Administration Blood Pressure - High Dextrose 1,000 mls @ 100 mls/hr 04/22/24 23:06 Dextrose 5% 1,000 Ml IVPB PRN PRN Hypoglycemia Protocol Dextrose 1,000 mls @ 50 mls/hr 04/25/24 10:46 Dextrose 10% IV CONT .Q20H PRN if PN is interrupted Multivitamins 2.5 ml/ 2,005 mls @ 50 mls/hr 04/25/24 12:00 05/04/24 15:17 Multivitamins 2.5 ml/ Amino IV CONT 50 mls/hr Acids/Dextrose .Q24H ROSY Administration Protocol Fat Emulsion Intravenous 250 mls @ 20.833 mls/hr 04/25/24 12:00 05/04/24 15:17 Lipids 20% IVPB 20 mls/hr Q24H ROSY Administration Piperacillin/Tazobactam/Dextrose 3.375 gm in 50 mls @ 100 mls/hr 04/28/24 12:00 05/04/24 12:21 Zosyn 3.375 Gm/Ns 50 Ml IVPB 05/05/24 23:59 Infused Q6HR ROSY Infusion Fluconazole 200 mg in 100 mls @ 100 mls/hr 05/03/24 21:00 05/03/24 21:24 Diflucan 200 Mg/Nacl 100 Ml IVPB 05/05/24 23:59 Infused QHS ROSY Infusion Ipratropium [place] 0.5 mg 05/04/24 09:32 Ipratropium Br 0.02% Inh Soln 0.5 Mg/2.5 Ml Vial INHALATION Q6HRT PRN Shortness Of Breath Levalbuterol HCl 0.63 mg 05/04/24 09:32 Levalbuterol Neb 1.25 Mg/3 Ml INHALATION Q6HRT PRN Shortness Of Breath Lidocaine 1 patch 04/27/24 16:35 05/04/24 08:20 Lidocaine 5% Patch TRANSDERM 1 patch DAILY ROSY Administration Lorazepam 0.5 mg 04/27/24 19:01 05/03/24 21:48 Lorazepam Inj (*Crx) 2 Mg/Ml Vial IV PUSH 0.5 mg HS PRN Administration Sleep Metoclopramide HCl 10 mg 04/28/24 12:00 05/04/24 11:51 Metoclopramide Hcl Inj 10 Mg/2 Ml Vial IV PUSH 10 mg Q6HR ROSY Administration Morphine Sulfate 4 mg 04/22/24 22:02 05/04/24 15:10 Morphine Sulfate (*Crx) 4 Mg/Ml Inj IV PUSH 4 mg Q3H PRN Administration Pain Rated 7-10 Pantoprazole Sodium 40 mg 04/26/24 21:00 05/04/24 08:20 Pantoprazole Sodium Iv 40 Mg Vial IV PUSH 40 mg Q12HR ROSY Administration Sodium Chloride 10 ml 04/23/24 14:00 05/04/24 11:52 Central Line Flush IV PUSH 10 ml Q8HR ROSY Administration Sodium Chloride 20 ml 04/23/24 10:16 05/04/24 05:25 Central Line Flush IV PUSH 20 ml PRN PRN Administration after blood draws Sodium Chloride 10 ml 05/04/24 22:00 Central Line Flush IV PUSH Q8HR ROSY Sodium Chloride 10 ml 05/04/24 14:15 Central Line Flush IV PUSH PRN PRN with TPN bag changes Sodium Chloride 20 ml 05/04/24 14:15 Central Line Flush IV PUSH PRN PRN after blood draws Radiology Results: ITS Impressions Chest/Abdomen/Pelvis CTA 04/22/24 18:10 IMPRESSION: Perforated viscus with a large amount of free air and fluid, with mural thickening in the distal stomach and multiple punctate foci of extraluminal air in this area for which site of perforation is suspected. Renal Ultrasound 04/24/24 11:58 IMPRESSION: Simple cyst in the left kidney upper pole. Other appearances are unremarkable. Upper GI Series 04/28/24 16:58 IMPRESSION: 1. Likely locally contained exophytic mucosal leakage of contrast at the gastric antrum at the site of a reported repair ulcer. The irregular margins and absence of more diffuse distribution of the contrast with no contrast extending along the adjacent drainage catheters suggests that this likely remains confined by a reported omental patch. Definitive determination is required would consider repeat contrast contrast injection into the gastrostomy tube with subsequent CT imaging. Lower Extremity CTA 05/02/24 16:36 IMPRESSION: 1. Scattered atherosclerotic plaque in the arteries of the left lower limb as detailed above without a discrete hemodynamic significant stenosis. Runoff below the ankle in the left posterior tibial artery this supplies the foot. Atretic distal peroneal and anterior tibial arteries with intraluminal contrast becoming indiscernible at the level of the ankle and with no appreciable contrast in the dorsalis pedis artery. Abdomen CT 05/03/24 10:41 IMPRESSION: 1. Perforation of the posterior aspect of the gastric antrum with extraluminal leakage of contrast. 2. Small volume of ascites. 3. Small pleural effusions. ADDENDUM: 05/03/24 1331 The extraluminal contrast remains near the site of perforation and may be contained by the omental patch. I discussed these findings with Dr. Moreno. Labs Labs: Laboratory Tests 05/04/24 10:05 05/04/24 05:03
[2024-05-04] MEDS: LIDOCAINE 1% PF INJ 5 ML VIAL INFILTRATE (14:15)
--- NOTE | 2024-05-04 14:28 | PCOTNOTE ---
Attempted to see Patient at this time. Patient in bed sleeping, stated he had just recently got done with a procedure with his PICC line and exhausted, needs rest. Patient declined to participate and requested therapy come back tomorrow.
[2024-05-04] MEDS: AMINO ACIDS 5%/DEXTROSE 15% 2,000 ML with MULTIVITAMINS-12 INJ VIAL 1 2.5 ML, MULTIVITA... 50 ML IV CONT (15:17)
[2024-05-04] MEDS: FAT EMULSIONS IV 20% 250 ML 20 ML IVPB (15:17)
[2024-05-04 18:00] LABS: Glucose Point of Care 100 mg/dl (65-105)
[2024-05-04] MEDS: FLUCONAZOLE 200 MG/NACL 100 ML 200 MG/100 ML BAG 100 MG IVPB (20:39)
[2024-05-04 23:49] LABS: Glucose Point of Care 127 mg/dl (65-105)
[2024-05-05] VITALS (9 sets, daily range): BP systolic 118–157; BP diastolic 50–54; PULSE 72–78; RESP 17–18; TEMP 36.5–36.7; O2SAT 97–100
[2024-05-05] MEDS: METOCLOPRAMIDE HCL INJ 10 MG/2 ML VIAL IV PUSH ×5 (00:15→23:31)
[2024-05-05] MEDS: PIPERACILLN/TAZ 3.375GM/NS50ML 3.375 GM/50 ML BAG IVPB ×2 (00:15→06:16)
[2024-05-05] MEDS: MORPHINE SULFATE (*CRX) 4 MG/ML INJ IV PUSH ×3 (04:50→19:32)
[2024-05-05 05:14] LABS: Basophils Absolute Auto 0.1 K/mm3 (0.0-0.1); Basophils Percent Auto 0.8 % (0.2-1.2); Eosinophils Absolute Auto 0.3 K/mm3 (0-0.3); Eosinophils Percent Auto 3.3 % (0-4.4); Hematocrit 30.6 % (42.0-52.0); Hemoglobin 9.7 g/dL (14.0-18.0); Immature Granulocyte Absolute 0.15 K/mm3 (0.00-0.031); Immature Granulocyte Percent A 1.7 % (0-0.5); Immature Platelet Fraction Pct 10.9 % (0.9-11.2); Lymphocytes Absolute Auto 0.67 K/mm3 (0.9-3.2); Lymphocytes Percent Auto 7.6 % (18.3-44.2); Mean Corpuscular HGB Conc 31.7 g/dl (32-36); Mean Corpuscular Hemoglobin 29.3 pg (26-34); Mean Corpuscular Volume 92.4 fl (80-100); Mean Platelet Volume 13.3 fl (7.4-10.4); Monocytes Absolute Auto 0.8 K/mm3 (0.1-0.6); Monocytes Percent Auto 9.6 % (2.6-8.5); Neutrophils Absolute Auto 6.8 K/mm3 (1.3-6.7); Platelet Count Result 305 k/mm3 (150-375); Red Blood Count 3.31 M/mm3 (4.6-6.20); Red Cell Distribution Width 15.3 % (11.5-14.5); White Blood Count 8.8 K/mm3 (4.5-10.0)
[2024-05-05 05:23] LABS: Alanine Aminotransferase 35 U/L (6-50); Alkaline Phosphatase 235 U/L (38-126); Anion Gap 12 mmol/L (4-12); Aspartate Amino Transferase 46 U/L (17-59); Bilirubin,Total 2.5 mg/dL (0.2-1.3); Blood Urea Nitrogen 70 mg/dL (9-20); Calcium 8.5 mg/dL (8.4-10.2); Carbon Dioxide 19 mmol/L (22-30); Chloride 111 mmol/L (98-107); Estimated CRCL calculation 28 ml/min; Estimated Glomerular Filt Rate 22; Glucose 136 mg/dL (65-110); Magnesium 2.1 mg/dL (1.6-2.3); Potassium 3.6 mmol/L (3.4-5.0); Sodium 142 mmol/L (137-145)
[2024-05-05 05:44] LABS: Anisocytosis 1+; Large Platelets Present; Platelet Estimate Adequate (Adequate); Schistocytes None Seen; Spherocytes 1+
[2024-05-05 06:17] LABS: Glucose Point of Care 132 mg/dl (65-105)
[2024-05-05] MEDS: ENOXAPARIN 60 MG/0.6 ML SYRINGE 25 MG SUB-Q ×2 (06:17→18:04)
[2024-05-05] MEDS: CENTRAL LINE FLUSH 20 ML IV PUSH ×2 (06:18)
[2024-05-05] MEDS: ENOXAPARIN 100 MG/ML SYRINGE SUB-Q ×2 (06:18→18:04)
[2024-05-05] MEDS: CENTRAL LINE FLUSH 10 ML IV PUSH ×3 (06:18→20:31)
[2024-05-05] MEDS: PANTOPRAZOLE SODIUM IV 40 MG VIAL IV PUSH ×2 (08:12→20:31)
[2024-05-05] MEDS: LIDOCAINE 5% PATCH 1 PATCH TRANSDERM (08:12)
--- NOTE | 2024-05-05 10:06 | PCSTNOTE ---
Please refer to the Bedside Swallow Evaluation in the EMR. Please note, silent aspiration cannot be ruled out at bedside.
--- NOTE | 2024-05-05 10:08 | P.PNIM_ITS ---
Progress Note: A&P Assessment and Plan (1) Perforated abdominal viscus: Code(s): R19.8 - Other specified symptoms and signs involving the digestive system and abdomen Status: Acute Assessment and Plan: * Septic shock in setting of peritonitis with perforated gastric ulcer: * Shock has resolved * Status post exploratory laparotomy with repair of antral gastric ulcer with omental Clarence patch, open gastrostomy tube * Surgery is following * Zosyn and Diflucan stopped today. * Passed swallow study. * TPN cut in half and tube feeding increased to 40 cc/hr. Surgery will consider starting clear liquids in the next day or so depending on how patient progresses. * Await bowel function to return * Electrolyte supplementation as per pharmacy as patient is on TPN. * Continue with PPI. * Pain regimen. * Monitor labs. (2) Malnutrition following gastrointestinal surgery: Code(s): K91.2 - Postsurgical malabsorption, not elsewhere classified Status: Acute Assessment and Plan: * Passed swallow study. * TPN cut in half and tube feeding increased to 40 cc/hr. Surgery will consider starting clear liquids in the next day or so depending on how patient progresses. * Surgery following. (3) Acute kidney injury superimposed on stage 3b chronic kidney disease: Code(s): N17.9 - Acute kidney failure, unspecified; N18.32 - Chronic kidney disease, stage 3b Status: Acute Assessment and Plan: * Avoid nephrotoxins * BUN 70, Creatinine 2.84, & GFR 22. * Nephrology following * Renal ultrasound was unremarkable for any acute issues. * Monitor labs. (4) HTN (hypertension): Code(s): I10 - Essential (primary) hypertension Status: Acute Assessment and Plan: * Blood pressure 118/53. Continue Clonidine patch and Hydralazine PRN. (5) Generalized weakness: Code(s): R53.1 - Weakness Status: Acute Assessment and Plan: * PT/OT (6) Hypokalemia: Code(s): E87.6 - Hypokalemia Status: Acute Assessment and Plan: * Potassium 3.6. * Monitor levels. Plan 78-year-old male with a past medical history of the osteoarthritis on chronic NS AID therapy, hyperlipidemia, hypertension, prior umbilical hernia repair, perforated appendix status post resection 2022 who presented to the ER via EMS with 3 days of sharp radiating abdominal pain. CT demonstrated perforated viscus with large amount of free air and fluid with mural thickening of the distal stomach and multiple punctate foci of extraluminal air with suspected perforated ulcer. Patient was evaluated by the surgeon in the ER was taken directly to the OR. Status post exploratory laparotomy with repair of antral gastric ulcer with omental Clarence patch. Placement of open gastrostomy tube on 04/22/2024. Patient was admitted to the ICU with shock requiring pressor support, intubated. Was eventually extubated on 04/25/2024. He was off pressor support on 04/24/2024. Has been on Zosyn and Diflucan as per surgery. Subjective Date/time seen: 05/05/24 10:08 Interval history: Patient sitting up in chair. Patient rates pain in his neck a 7 , constant, and aching. Patient denies chest pain, palpitations, headache, dizziness, nausea, or vomiting. Patient passed his swallow study this morning. Patient reports tolerating the tube feedings well. Review of Systems Review of Systems: All systems reviewed & are unremarkable except as noted in HPI and below Exam Const: General: no acute distress and uncomfortable Resp: Effort & Inspection: normal respiratory effort Auscultation: diminished lung sounds Cardio: Rate: regular rate Rhythm: regular rhythm Other: Telemetry- SR 75. GI: GI Palp: Yes Soft to palpation Auscultation: normal bowel sounds Other: Mildly distended. ELSA drains x2 with scant serous output. Neuro: Speech: normal speech Extrem: General: pedal edema bilaterally (trace edema) Psych: Mental Status: mental status grossly normal Affect: normal affect Objective Data Vital Signs Vital Signs: Vital Signs - 24 hr 05/04/24 12:00 05/04/24 14:00 05/04/24 16:00 Temperature 98.1 F Pulse Rate 77 75 75 Respiratory Rate 18 Blood Pressure 130/50 L Pulse Oximetry 100 Oxygen Delivery 05/04/24 19:26 05/04/24 20:00 05/05/24 00:00 Temperature 97.6 F Pulse Rate 80 77 77 Respiratory Rate 17 Blood Pressure 138/58 L Pulse Oximetry 99 Oxygen Delivery 05/05/24 04:00 05/05/24 06:00 05/05/24 08:00 Temperature 97.7 F Pulse Rate 75 76 75 Respiratory Rate 17 Blood Pressure 118/53 L Pulse Oximetry 97 Oxygen Delivery 05/05/24 08:10 Temperature Pulse Rate Respiratory Rate Blood Pressure Pulse Oximetry Oxygen Delivery Room Air Intake/Output Intake/Output: Intake & Output 05/02/24 05/03/24 05/04/24 05/05/24 23:59 23:59 23:59 23:59 Intake Total 2650.7 2321.1 2525.9 660 Output Total 1800 2330 1650 600 Balance 850.7 -8.9 875.9 60 Meds/Results Medications: Active Medications Generic Name Dose Route Start Last Admin Trade Name Freq PRN Reason Stop Dose Admin Acetaminophen 650 mg 04/26/24 22:19 04/26/24 22:57 Acetaminophen 650 Mg Suppository RECTAL 650 mg Q6H PRN Administration Mild Pain (1-3) or Fever Artificial Tears 1 drop 04/27/24 08:37 Artificial Tears Ophth Soln 15 Ml Bottle EACH EYE QID PRN Dry Eye(s) Atorvastatin Calcium 20 mg 04/30/24 09:00 Atorvastatin 20 Mg Tablet BY MOUTH DAILY ROSY Clonidine HCl 1 patch 05/01/24 09:00 05/01/24 11:36 Clonidine 0.1 Mg/24 Hr Patch TRANSDERM 1 patch WEEKLY ROSY Administration Dextrose 12.5 gm 04/22/24 23:06 Dextrose 50% 25 Gm/50 Ml Syringe IV PUSH PRN PRN Hypoglycemia Protocol Enoxaparin Sodium 100 mg 05/04/24 16:00 05/05/24 06:18 Enoxaparin 100 Mg/Ml Syringe SUB-Q 100 mg 0600,1800 ROSY Administration Enoxaparin Sodium 25 mg 05/04/24 16:00 05/05/24 06:17 Enoxaparin 60 Mg/0.6 Ml Syringe SUB-Q 25 mg 0600,1800 ROSY Administration Glucagon 1 mg 04/22/24 23:06 Glucagon For Inj 1 Mg Vial IM PRN PRN Hypoglycemia Protocol Glucose 15 gm 04/22/24 23:06 Glucose Oral Gel 15 Gm Of Glucse In 37.5 Gm Tube PO PRN PRN Hypoglycemia Protocol Hydralazine HCl 10 mg 04/25/24 08:00 05/03/24 21:47 Hydralazine Hcl 20 Mg/Ml Vial IV PUSH 10 mg Q4H PRN Administration Blood Pressure - High Dextrose 1,000 mls @ 100 mls/hr 04/22/24 23:06 Dextrose 5% 1,000 Ml IVPB PRN PRN Hypoglycemia Protocol Dextrose 1,000 mls @ 50 mls/hr 04/25/24 10:46 Dextrose 10% IV CONT .Q20H PRN if PN is interrupted Multivitamins 2.5 ml/ 2,005 mls @ 50 mls/hr 04/25/24 12:00 05/04/24 15:17 Multivitamins 2.5 ml/ Amino IV CONT 50 mls/hr Acids/Dextrose .Q24H ROSY Administration Protocol Fat Emulsion Intravenous 250 mls @ 20.833 mls/hr 04/25/24 12:00 05/05/24 04:24 Lipids 20% IVPB Infused Q24H ROSY Infusion Ipratropium [place] 0.5 mg 05/04/24 09:32 Ipratropium Br 0.02% Inh Soln 0.5 Mg/2.5 Ml Vial INHALATION Q6HRT PRN Shortness Of Breath Levalbuterol HCl 0.63 mg 05/04/24 09:32 Levalbuterol Neb 1.25 Mg/3 Ml INHALATION Q6HRT PRN Shortness Of Breath Lidocaine 1 patch 04/27/24 16:35 05/05/24 08:12 Lidocaine 5% Patch TRANSDERM 1 patch DAILY ROSY Administration Lorazepam 0.5 mg 04/27/24 19:01 05/03/24 21:48 Lorazepam Inj (*Crx) 2 Mg/Ml Vial IV PUSH 0.5 mg HS PRN Administration Sleep Metoclopramide HCl 10 mg 04/28/24 12:00 05/05/24 06:17 Metoclopramide Hcl Inj 10 Mg/2 Ml Vial IV PUSH 10 mg Q6HR ROSY Administration Morphine Sulfate 4 mg 04/22/24 22:02 05/05/24 04:50 Morphine Sulfate (*Crx) 4 Mg/Ml Inj IV PUSH 4 mg Q3H PRN Administration Pain Rated 7-10 Pantoprazole Sodium 40 mg 04/26/24 21:00 05/05/24 08:12 Pantoprazole Sodium Iv 40 Mg Vial IV PUSH 40 mg Q12HR ROSY Administration Sodium Chloride 10 ml 04/23/24 14:00 05/05/24 06:18 Central Line Flush IV PUSH 10 ml Q8HR ROSY Administration Sodium Chloride 20 ml 04/23/24 10:16 05/05/24 06:18 Central Line Flush IV PUSH 20 ml PRN PRN Administration after blood draws Sodium Chloride 10 ml 05/04/24 14:15 Central Line Flush IV PUSH PRN PRN with TPN bag changes Sodium Chloride 20 ml 05/04/24 14:15 05/05/24 06:18 Central Line Flush IV PUSH 20 ml PRN PRN Administration after blood draws Radiology Results: ITS Impressions Chest/Abdomen/Pelvis CTA 04/22/24 18:10 IMPRESSION: Perforated viscus with a large amount of free air and fluid, with mural thickening in the distal stomach and multiple punctate foci of extraluminal air in this area for which site of perforation is suspected. Renal Ultrasound 04/24/24 11:58 IMPRESSION: Simple cyst in the left kidney upper pole. Other appearances are unremarkable. Upper GI Series 04/28/24 16:58 IMPRESSION: 1. Likely locally contained exophytic mucosal leakage of contrast at the gastric antrum at the site of a reported repair ulcer. The irregular margins and absence of more diffuse distribution of the contrast with no contrast extending along the adjacent drainage catheters suggests that this likely remains confined by a reported omental patch. Definitive determination is required would consider repeat contrast contrast injection into the gastrostomy tube with subsequent CT imaging. Lower Extremity CTA 05/02/24 16:36 IMPRESSION: 1. Scattered atherosclerotic plaque in the arteries of the left lower limb as detailed above without a discrete hemodynamic significant stenosis. Runoff below the ankle in the left posterior tibial artery this supplies the foot. Atretic distal peroneal and anterior tibial arteries with intraluminal contrast becoming indiscernible at the level of the ankle and with no appreciable contrast in the dorsalis pedis artery. Abdomen CT 05/03/24 10:41 IMPRESSION: 1. Perforation of the posterior aspect of the gastric antrum with extraluminal leakage of contrast. 2. Small volume of ascites. 3. Small pleural effusions. ADDENDUM: 05/03/24 1331 The extraluminal contrast remains near the site of perforation and may be contained by the omental patch. I discussed these findings with Dr. Moreno. Chest X-Ray 05/04/24 14:03 IMPRESSION: 1. PICC tip in the right atrium. 2. Airspace opacities in left lower lung zone with slight improvement, consistent with atelectasis versus pneumonia. Labs Labs: Laboratory Results - last 24 hr 05/04/24 05/04/24 05/04/24 10:05 12:05 17:57 WBC 10.0 RBC 3.10 L Hgb 9.1 L Hct 28.6 L MCV 92.3 MCH 29.4 MCHC 31.8 L RDW 15.1 H Plt Count 275 MPV 12.5 H Immature Gran % (Auto) Neut % (Auto) Lymph % (Auto) [place] % (Auto) Eos % (Auto) Baso % (Auto) Lymph # (Auto) [place] # (Auto) Eos # (Auto) Baso # (Auto) Abs Immat Gran (auto) Absolute Neuts (auto) Absolute Nucleated RBC Band Neutrophils % Nucleated RBC % Platelet Estimate Large Platelets % Immature Plt Fraction Anisocytosis Spherocytes Schistocytes Sodium Potassium Chloride Carbon Dioxide Anion Gap BUN Creatinine Estim Creat Clear Calc Estimated GFR Glucose POC Capillary Glucose 114 H 100 Calcium Magnesium Total Bilirubin AST ALT Alkaline Phosphatase Total Protein Albumin 05/04/24 05/05/24 05/05/24 23:40 04:48 05:57 WBC 8.8 RBC 3.31 L Hgb 9.7 L Hct 30.6 L MCV 92.4 MCH 29.3 MCHC 31.7 L RDW 15.3 H Plt Count 305 MPV 13.3 H Immature Gran % (Auto) 1.7 H Neut % (Auto) 77.0 H Lymph % (Auto) 7.6 L [place] % (Auto) 9.6 H Eos % (Auto) 3.3 Baso % (Auto) 0.8 Lymph # (Auto) 0.67 L [place] # (Auto) 0.8 H Eos # (Auto) 0.3 Baso # (Auto) 0.1 Abs Immat Gran (auto) 0.15 H Absolute Neuts (auto) 6.8 H Absolute Nucleated RBC 0.000 Band Neutrophils % Not Reportable Nucleated RBC % 0.0 Platelet Estimate Adequate Large Platelets Present % Immature Plt Fraction 10.9 Anisocytosis 1+ Spherocytes 1+ Schistocytes None seen Sodium 142 Potassium 3.6 Chloride 111 H Carbon Dioxide 19 L Anion Gap 12 BUN 70 H Creatinine 2.84 H Estim Creat Clear Calc 28 Estimated GFR 22 L Glucose 136 H POC Capillary Glucose 127 H 132 H Calcium 8.5 Magnesium 2.1 Total Bilirubin 2.5 H AST 46 ALT 35 Alkaline Phosphatase 235 H Total Protein 6.0 L Albumin 3.0 L Quality VTE Prophylaxis VTE prophylaxis: mechanical ordered and pharmacologic ordered
--- NOTE | 2024-05-05 11:00 | P.PNGS_ITS ---
Progress Note: A&P Assessment and Plan (1) Perforated abdominal viscus: Code(s): R19.8 - Other specified symptoms and signs involving the digestive system and abdomen Status: Acute Assessment and Plan: * Postop day 13 status post laparotomy with repair of large perforated gastric ulcer with omental Clarence patch. He continues to slowly improve. His WBC count has normalized. We stopped the IV Zosyn and Fluconazole. He is tolerating trickle tube feedings without any change in the ELSA drainage. Continue to monitor ELSA drains. Will advance his tube feeding to 40 cc/hr today and cut his TPN rate in half. He passed his swallow test, so we will consider starting clear liquids in the next day or so depending on how he progresses. Will hopefully stop the TPN tomorrow if he is tolerating tube feedings. PICC line is in place and his central line has been removed. Incision continues to heal well and mitch have been removed. Continue to increase activity, PT/OT following. (2) Malnutrition following gastrointestinal surgery: Code(s): K91.2 - Postsurgical malabsorption, not elsewhere classified Status: Acute Assessment and Plan: * Will decrease TPN rate today, discussed rate changes with the dietitian. See plan above. (3) PAD (peripheral artery disease): Code(s): I73.9 - Peripheral vascular disease, unspecified Status: Acute Assessment and Plan: * He has been transitioned to Lovenox 1 mg/kg Q12H. We will plan on eventually transitioning him to an oral agent once he is tolerating oral intake prior to discharge. Plan I have discussed the patient's case and plan of care with Dr. Moreno. Subjective Subjective Date/Time Seen: 05/05/24 11:00 Post Op day: 13 (Exploratory laparotomy with repair of antral gastric ulcer with omental Clarence patch, placement of open gastrostomy tube) Patient reports: no new complaints, no flatus, no bowel movement and afebrile Interval history: Patient passed his swallow test without any restrictions from speech therapy. He denies any abdominal pain. He actually complains more of pain in his right neck where the central line was removed. He still feels weak and is requiring a fair amount of assistance to stand and transfer to the chair. Per nursing, he is tolerating tube feedings with no high residuals. Exam Const: General: comfortable and no acute distress Orientation/consciousness: patient oriented x3 GI: Other: Abdomen mildly distended and soft. He has tenderness near his incisions and mild tenderness in the upper abdomen. ELSA drains x 2 with scant serous output, nothing in the drains that look like tube feeding. Gastrostomy tube in place with dry gauze dressing and skin around the G-tube without erythema or drainage. Incision dry with no erythema. Mitch removed and steri strips applied. Good bowel sounds again today. Urinary Catheter: Urinary Catheter: patent and draining and urine clear Extrem: General: no calf tenderness and no edema Other: Bilateral lower extremities are both warm with good color. No mottling or pallor on the left lower extremity. Movement is equal bilaterally with ROM intact. Bilateral weak, but palpable pedal and PT pulses. Objective Data Vital Signs Vital Signs: Vital Signs - 24 hr 05/04/24 12:00 05/04/24 14:00 05/04/24 16:00 Temperature 98.1 F Pulse Rate 77 75 75 Respiratory Rate 18 Blood Pressure 130/50 L Pulse Oximetry 100 Oxygen Delivery 05/04/24 19:26 05/04/24 20:00 05/05/24 00:00 Temperature 97.6 F Pulse Rate 80 77 77 Respiratory Rate 17 Blood Pressure 138/58 L Pulse Oximetry 99 Oxygen Delivery 05/05/24 04:00 05/05/24 06:00 05/05/24 08:00 Temperature 97.7 F Pulse Rate 75 76 75 Respiratory Rate 17 Blood Pressure 118/53 L Pulse Oximetry 97 Oxygen Delivery 05/05/24 08:10 Temperature Pulse Rate Respiratory Rate Blood Pressure Pulse Oximetry Oxygen Delivery Room Air Intake/Output Intake/Output: Intake & Output 05/02/24 05/03/24 05/04/24 05/05/24 23:59 23:59 23:59 23:59 Intake Total 2650.7 2321.1 2525.9 660 Output Total 1800 2330 1650 600 Balance 850.7 -8.9 875.9 60 Meds/Results Medications: Active Medications Generic Name Dose Route Start Last Admin Trade Name Freq PRN Reason Stop Dose Admin Acetaminophen 650 mg 04/26/24 22:19 04/26/24 22:57 Acetaminophen 650 Mg Suppository RECTAL 650 mg Q6H PRN Administration Mild Pain (1-3) or Fever Acetaminophen 650 mg 05/05/24 10:27 Acetaminophen Elixir 325 Mg/10.15 Ml Udc PO Q6H PRN Mild Pain (1-3) or Fever Artificial Tears 1 drop 04/27/24 08:37 Artificial Tears Ophth Soln 15 Ml Bottle EACH EYE QID PRN Dry Eye(s) Atorvastatin Calcium 20 mg 04/30/24 09:00 Atorvastatin 20 Mg Tablet BY MOUTH DAILY ROSY Clonidine HCl 1 patch 05/01/24 09:00 05/01/24 11:36 Clonidine 0.1 Mg/24 Hr Patch TRANSDERM 1 patch WEEKLY ROSY Administration Dextrose 12.5 gm 04/22/24 23:06 Dextrose 50% 25 Gm/50 Ml Syringe IV PUSH PRN PRN Hypoglycemia Protocol Enoxaparin Sodium 100 mg 05/04/24 16:00 05/05/24 06:18 Enoxaparin 100 Mg/Ml Syringe SUB-Q 100 mg 0600,1800 ROSY Administration Enoxaparin Sodium 25 mg 05/04/24 16:00 05/05/24 06:17 Enoxaparin 60 Mg/0.6 Ml Syringe SUB-Q 25 mg 0600,1800 ROSY Administration Glucagon 1 mg 04/22/24 23:06 Glucagon For Inj 1 Mg Vial IM PRN PRN Hypoglycemia Protocol Glucose 15 gm 04/22/24 23:06 Glucose Oral Gel 15 Gm Of Glucse In 37.5 Gm Tube PO PRN PRN Hypoglycemia Protocol Hydralazine HCl 10 mg 04/25/24 08:00 05/03/24 21:47 Hydralazine Hcl 20 Mg/Ml Vial IV PUSH 10 mg Q4H PRN Administration Blood Pressure - High Dextrose 1,000 mls @ 100 mls/hr 04/22/24 23:06 Dextrose 5% 1,000 Ml IVPB PRN PRN Hypoglycemia Protocol Dextrose 1,000 mls @ 50 mls/hr 04/25/24 10:46 Dextrose 10% IV CONT .Q20H PRN if PN is interrupted Multivitamins 2.5 ml/ 2,005 mls @ 50 mls/hr 04/25/24 12:00 05/04/24 15:17 Multivitamins 2.5 ml/ Amino IV CONT 50 mls/hr Acids/Dextrose .Q24H ROSY Administration Protocol Fat Emulsion Intravenous 250 mls @ 20.833 mls/hr 04/25/24 12:00 05/05/24 04:24 Lipids 20% IVPB Infused Q24H ROSY Infusion Ipratropium [place] 0.5 mg 05/04/24 09:32 Ipratropium Br 0.02% Inh Soln 0.5 Mg/2.5 Ml Vial INHALATION Q6HRT PRN Shortness Of Breath Levalbuterol HCl 0.63 mg 05/04/24 09:32 Levalbuterol Neb 1.25 Mg/3 Ml INHALATION Q6HRT PRN Shortness Of Breath Lidocaine 1 patch 04/27/24 16:35 05/05/24 08:12 Lidocaine 5% Patch TRANSDERM 1 patch DAILY ROSY Administration Lorazepam 0.5 mg 04/27/24 19:01 05/03/24 21:48 Lorazepam Inj (*Crx) 2 Mg/Ml Vial IV PUSH 0.5 mg HS PRN Administration Sleep Metoclopramide HCl 10 mg 04/28/24 12:00 05/05/24 06:17 Metoclopramide Hcl Inj 10 Mg/2 Ml Vial IV PUSH 10 mg Q6HR ROSY Administration Morphine Sulfate 4 mg 04/22/24 22:02 05/05/24 04:50 Morphine Sulfate (*Crx) 4 Mg/Ml Inj IV PUSH 4 mg Q3H PRN Administration Pain Rated 7-10 Pantoprazole Sodium 40 mg 04/26/24 21:00 05/05/24 08:12 Pantoprazole Sodium Iv 40 Mg Vial IV PUSH 40 mg Q12HR ROSY Administration Sodium Chloride 10 ml 04/23/24 14:00 05/05/24 06:18 Central Line Flush IV PUSH 10 ml Q8HR ROSY Administration Sodium Chloride 20 ml 04/23/24 10:16 05/05/24 06:18 Central Line Flush IV PUSH 20 ml PRN PRN Administration after blood draws Sodium Chloride 10 ml 05/04/24 14:15 Central Line Flush IV PUSH PRN PRN with TPN bag changes Sodium Chloride 20 ml 05/04/24 14:15 05/05/24 06:18 Central Line Flush IV PUSH 20 ml PRN PRN Administration after blood draws Radiology Results: ITS Impressions Chest/Abdomen/Pelvis CTA 04/22/24 18:10 IMPRESSION: Perforated viscus with a large amount of free air and fluid, with mural thickening in the distal stomach and multiple punctate foci of extraluminal air in this area for which site of perforation is suspected. Renal Ultrasound 04/24/24 11:58 IMPRESSION: Simple cyst in the left kidney upper pole. Other appearances are unremarkable. Upper GI Series 04/28/24 16:58 IMPRESSION: 1. Likely locally contained exophytic mucosal leakage of contrast at the gastric antrum at the site of a reported repair ulcer. The irregular margins and absence of more diffuse distribution of the contrast with no contrast extending along the adjacent drainage catheters suggests that this likely remains confined by a reported omental patch. Definitive determination is required would consider repeat contrast contrast injection into the gastrostomy tube with subsequent CT imaging. Lower Extremity CTA 05/02/24 16:36 IMPRESSION: 1. Scattered atherosclerotic plaque in the arteries of the left lower limb as detailed above without a discrete hemodynamic significant stenosis. Runoff below the ankle in the left posterior tibial artery this supplies the foot. Atretic distal peroneal and anterior tibial arteries with intraluminal contrast becoming indiscernible at the level of the ankle and with no appreciable contrast in the dorsalis pedis artery. Abdomen CT 05/03/24 10:41 IMPRESSION: 1. Perforation of the posterior aspect of the gastric antrum with extraluminal leakage of contrast. 2. Small volume of ascites. 3. Small pleural effusions. ADDENDUM: 05/03/24 1331 The extraluminal contrast remains near the site of perforation and may be contained by the omental patch. I discussed these findings with Dr. Moreno. Chest X-Ray 05/04/24 14:03 IMPRESSION: 1. PICC tip in the right atrium. 2. Airspace opacities in left lower lung zone with slight improvement, consistent with atelectasis versus pneumonia. Labs Labs: Laboratory Results - last 24 hr 05/04/24 05/04/24 05/04/24 12:05 17:57 23:40 WBC RBC Hgb Hct MCV MCH MCHC RDW Plt Count MPV Immature Gran % (Auto) Neut % (Auto) Lymph % (Auto) [place] % (Auto) Eos % (Auto) Baso % (Auto) Lymph # (Auto) [place] # (Auto) Eos # (Auto) Baso # (Auto) Abs Immat Gran (auto) Absolute Neuts (auto) Absolute Nucleated RBC Band Neutrophils % Nucleated RBC % Platelet Estimate Large Platelets % Immature Plt Fraction Anisocytosis Spherocytes Schistocytes Sodium Potassium Chloride Carbon Dioxide Anion Gap BUN Creatinine Estim Creat Clear Calc Estimated GFR Glucose POC Capillary Glucose 114 H 100 127 H Calcium Magnesium Total Bilirubin AST ALT Alkaline Phosphatase Total Protein Albumin 05/05/24 05/05/24 04:48 05:57 WBC 8.8 RBC 3.31 L Hgb 9.7 L Hct 30.6 L MCV 92.4 MCH 29.3 MCHC 31.7 L RDW 15.3 H Plt Count 305 MPV 13.3 H Immature Gran % (Auto) 1.7 H Neut % (Auto) 77.0 H Lymph % (Auto) 7.6 L [place] % (Auto) 9.6 H Eos % (Auto) 3.3 Baso % (Auto) 0.8 Lymph # (Auto) 0.67 L [place] # (Auto) 0.8 H Eos # (Auto) 0.3 Baso # (Auto) 0.1 Abs Immat Gran (auto) 0.15 H Absolute Neuts (auto) 6.8 H Absolute Nucleated RBC 0.000 Band Neutrophils % Not Reportable Nucleated RBC % 0.0 Platelet Estimate Adequate Large Platelets Present % Immature Plt Fraction 10.9 Anisocytosis 1+ Spherocytes 1+ Schistocytes None seen Sodium 142 Potassium 3.6 Chloride 111 H Carbon Dioxide 19 L Anion Gap 12 BUN 70 H Creatinine 2.84 H Estim Creat Clear Calc 28 Estimated GFR 22 L Glucose 136 H POC Capillary Glucose 132 H Calcium 8.5 Magnesium 2.1 Total Bilirubin 2.5 H AST 46 ALT 35 Alkaline Phosphatase 235 H Total Protein 6.0 L Albumin 3.0 L
--- NOTE | 2024-05-05 11:13 | PCNFU ---
Nutrition Follow-Up Complete: Inadequate oral intake related to altered GI function as evidenced by need for full TPN Goal: Meet estimated nutrition needs Patient is progressing towards goal. We will continue current goal. Pt current nutrition is Clinimix E 5/15 at 50 ml/hr with Jevity 1.5 at 20 ml/hr. Last recorded weight is 125.2 kg, up from 123 kg on admit. Bowel Motility: Spoke with nursing regarding BM, +Bm 04/20. Patient did confirm with nursing. Labs Reviewed: Cr 2.84, GFR 22, BUN 70, TG 172, Alb 3.0 Meds Noted:Reglan, Zosyn, Clinimix E 5/15, Lipid Emulsion. Skin:WNL Additional Notes:Spoke with nursing, patient is tolerating tube feedings of Jevity 1.5 at 20 ml/hr. Discussion with JOSH Borja today, recommending 1/2 rate TPN and increased tube feedings at 30 ml/hr with goal rate of 40 ml/hr. Patient had Bedside Swallow today, recommend regular consistencies and monitoring with po intake. Monitoring diet orders, GI function, plan of care, weights, labs, orders Follow up Thursday/Thursday
[2024-05-05 12:50] LABS: Glucose Point of Care 117 mg/dl (65-105)
--- NOTE | 2024-05-05 14:19 | P.PNNP_ITS ---
Progress Note: A&P Assessment and Plan (1) Acute kidney injury: Code(s): N17.9 - Acute kidney failure, unspecified Status: Acute Assessment and Plan: * continues to fluctuate * suspect multifactorial etiology: * NSAID use * hypotension/hemodynmic instability/shock * sepsis/infection * third spacing * recent contrast exposure (with LE CTA on 05/02) * evaluation to date: * CT shows normal kidneys * renal u/s with simple cyst x 1 o/w unremarkable. * urine electrolytes are prerenal * CPK mildly elevated (but not enough to affect kidneys) * urine eosinophils negative * mild proteinuria * good urine output noted * follow trend of repeat labs and UOP (2) Stage 3b chronic kidney disease: Code(s): N18.32 - Chronic kidney disease, stage 3b Status: Chronic Assessment and Plan: * creatinine ~ 1.5mg/dl in November 2023 * suspect secondary to hypertension, peripheral vascular disease, and possibly chronic NSAID use as well as age-related change (3) Perforated gastric ulcer: Onset Date: 04/2024 Qualifiers: Gastric ulcer chronicity: acute Qualified Code(s): K25.1 - Acute gastric ulcer with perforation Code(s): K25.5 - Chronic or unspecified gastric ulcer with perforation Status: Acute Assessment and Plan: * suspect secondary to NSAID use * s/p exploratory laparotomy and repair of antral gastric ulcer with omental Clarence patch and placement of open gastrostomy tube (on 04/22) * completed course of antibiotics * weaning TPN * G-tube feeding being advanced * General Surgery following (4) PAD (peripheral artery disease): Code(s): I73.9 - Peripheral vascular disease, unspecified Status: Acute Assessment and Plan: * CTA of left lower extremity noted * suspect acute on chronic issue * on anticoagulation (5) Acute respiratory failure: Code(s): J96.00 - Acute respiratory failure, unspecified whether with hypoxia or hypercapnia Status: Acute Assessment and Plan: * resolved * on room air * follow CXRs and respiratory status (6) Anemia: Code(s): D64.9 - Anemia, unspecified Status: Acute Assessment and Plan: * relatively stable * due to RIC, CKD, and acute illness * follow trend of H/H (7) Malnutrition following gastrointestinal surgery: Code(s): K91.2 - Postsurgical malabsorption, not elsewhere classified Status: Acute Assessment and Plan: * on TPN * slowly transitioning to tube feeds as tolerated * eventual goal is to transition to oral intake (8) HTN (hypertension): Code(s): I10 - Essential (primary) hypertension Status: Acute Assessment and Plan: * blood pressure under reasonable control * on PRN hydralazine and clonidine patch * resume oral meds when able to take po intake * follow trend of hemodynamics Will continue to follow. L Subjective Date/time seen: 05/05/24 14:19 Interval history: Follow-up for acute kidney injury/acute renal failure. Renal function/creatinine worsening since 05/01 (when it had come down as low as 1.5mg/dl) but continues to make good urine output; off heparin gtt and transitioned to lovenox; tube feeds are being advanced and TPN is being weaned as tolerated; no apparent distress noted. Exam 2 Narrative: General: elderly but WD/WN male in NAD Heart: normal S1 and S2; no rub Lungs: clear anteriorly Abdomen: soft, nontender; some bowel sounds; +G-tube Extremities: no cyanosis or clubbing; trace - 1+ edema Skin: no nodules Objective Data Vital Signs Vital Signs: Vital Signs Temp Pulse Resp BP Pulse Ox O2 Del Method 05/05/24 14:00 98.0 F 78 18 143/50 H 99 05/05/24 12:00 72 05/05/24 08:10 Room Air 05/05/24 08:00 75 05/05/24 06:00 97.7 F 76 17 118/53 L 97 05/05/24 04:00 75 05/05/24 00:00 77 05/04/24 20:00 77 05/04/24 19:26 97.6 F 80 17 138/58 L 99 Intake/Output Intake/Output: Intake & Output 05/02/24 05/03/24 05/04/24 05/05/24 23:59 23:59 23:59 23:59 Intake Total 2650.7 2321.1 2525.9 1791.6 Output Total 1800 2330 1670 1450 Balance 850.7 -8.9 855.9 341.6 Meds/Results Medications: Active Medications Generic Name Dose Route Start Last Admin Trade Name Freq PRN Reason Stop Dose Admin Acetaminophen 650 mg 04/26/24 22:19 04/26/24 22:57 Acetaminophen 650 Mg Suppository RECTAL 650 mg Q6H PRN Administration Mild Pain (1-3) or Fever Acetaminophen 650 mg 05/05/24 10:27 Acetaminophen Elixir 325 Mg/10.15 Ml Udc PO Q6H PRN Mild Pain (1-3) or Fever Artificial Tears 1 drop 04/27/24 08:37 Artificial Tears Ophth Soln 15 Ml Bottle EACH EYE QID PRN Dry Eye(s) Atorvastatin Calcium 20 mg 04/30/24 09:00 Atorvastatin 20 Mg Tablet BY MOUTH DAILY ROSY Clonidine HCl 1 patch 05/01/24 09:00 05/01/24 11:36 Clonidine 0.1 Mg/24 Hr Patch TRANSDERM 1 patch WEEKLY ROSY Administration Dextrose 12.5 gm 04/22/24 23:06 Dextrose 50% 25 Gm/50 Ml Syringe IV PUSH PRN PRN Hypoglycemia Protocol Enoxaparin Sodium 100 mg 05/04/24 16:00 05/05/24 18:04 Enoxaparin 100 Mg/Ml Syringe SUB-Q 100 mg 0600,1800 ROSY Administration Enoxaparin Sodium 25 mg 05/04/24 16:00 05/05/24 18:04 Enoxaparin 60 Mg/0.6 Ml Syringe SUB-Q 25 mg 0600,1800 ROSY Administration Glucagon 1 mg 04/22/24 23:06 Glucagon For Inj 1 Mg Vial IM PRN PRN Hypoglycemia Protocol Glucose 15 gm 04/22/24 23:06 Glucose Oral Gel 15 Gm Of Glucse In 37.5 Gm Tube PO PRN PRN Hypoglycemia Protocol Hydralazine HCl 10 mg 04/25/24 08:00 05/03/24 21:47 Hydralazine Hcl 20 Mg/Ml Vial IV PUSH 10 mg Q4H PRN Administration Blood Pressure - High Dextrose 1,000 mls @ 100 mls/hr 04/22/24 23:06 Dextrose 5% 1,000 Ml IVPB PRN PRN Hypoglycemia Protocol Dextrose 1,000 mls @ 50 mls/hr 04/25/24 10:46 Dextrose 10% IV CONT .Q20H PRN if PN is interrupted Multivitamins 2.5 ml/ 2,005 mls @ 25 mls/hr 04/25/24 12:00 05/05/24 16:26 Multivitamins 2.5 ml/ Amino IV CONT 25 mls/hr Acids/Dextrose .Q24H ROSY Administration Protocol Fat Emulsion Intravenous 250 mls @ 20.833 mls/hr 04/25/24 12:00 05/05/24 16:27 Lipids 20% IVPB 20 mls/hr Q24H ROSY Administration Ipratropium [place] 0.5 mg 05/04/24 09:32 Ipratropium Br 0.02% Inh Soln 0.5 Mg/2.5 Ml Vial INHALATION Q6HRT PRN Shortness Of Breath Levalbuterol HCl 0.63 mg 05/04/24 09:32 Levalbuterol Neb 1.25 Mg/3 Ml INHALATION Q6HRT PRN Shortness Of Breath Lidocaine 1 patch 04/27/24 16:35 05/05/24 08:12 Lidocaine 5% Patch TRANSDERM 1 patch DAILY ROSY Administration Lorazepam 0.5 mg 04/27/24 19:01 05/03/24 21:48 Lorazepam Inj (*Crx) 2 Mg/Ml Vial IV PUSH 0.5 mg HS PRN Administration Sleep Metoclopramide HCl 10 mg 04/28/24 12:00 05/05/24 18:04 Metoclopramide Hcl Inj 10 Mg/2 Ml Vial IV PUSH 10 mg Q6HR ROSY Administration Morphine Sulfate 4 mg 04/22/24 22:02 05/05/24 11:22 Morphine Sulfate (*Crx) 4 Mg/Ml Inj IV PUSH 4 mg Q3H PRN Administration Pain Rated 7-10 Pantoprazole Sodium 40 mg 04/26/24 21:00 05/05/24 08:12 Pantoprazole Sodium Iv 40 Mg Vial IV PUSH 40 mg Q12HR ROSY Administration Sodium Chloride 10 ml 04/23/24 14:00 05/05/24 11:23 Central Line Flush IV PUSH 10 ml Q8HR ROSY Administration Sodium Chloride 20 ml 04/23/24 10:16 05/05/24 06:18 Central Line Flush IV PUSH 20 ml PRN PRN Administration after blood draws Sodium Chloride 10 ml 05/04/24 14:15 Central Line Flush IV PUSH PRN PRN with TPN bag changes Sodium Chloride 20 ml 05/04/24 14:15 05/05/24 06:18 Central Line Flush IV PUSH 20 ml PRN PRN Administration after blood draws Radiology Results: ITS Impressions Chest/Abdomen/Pelvis CTA 04/22/24 18:10 IMPRESSION: Perforated viscus with a large amount of free air and fluid, with mural thickening in the distal stomach and multiple punctate foci of extraluminal air in this area for which site of perforation is suspected. Renal Ultrasound 04/24/24 11:58 IMPRESSION: Simple cyst in the left kidney upper pole. Other appearances are unremarkable. Upper GI Series 04/28/24 16:58 IMPRESSION: 1. Likely locally contained exophytic mucosal leakage of contrast at the gastric antrum at the site of a reported repair ulcer. The irregular margins and absence of more diffuse distribution of the contrast with no contrast extending along the adjacent drainage catheters suggests that this likely remains confined by a reported omental patch. Definitive determination is required would consider repeat contrast contrast injection into the gastrostomy tube with subsequent CT imaging. Lower Extremity CTA 05/02/24 16:36 IMPRESSION: 1. Scattered atherosclerotic plaque in the arteries of the left lower limb as detailed above without a discrete hemodynamic significant stenosis. Runoff below the ankle in the left posterior tibial artery this supplies the foot. Atretic distal peroneal and anterior tibial arteries with intraluminal contrast becoming indiscernible at the level of the ankle and with no appreciable contrast in the dorsalis pedis artery. Abdomen CT 05/03/24 10:41 IMPRESSION: 1. Perforation of the posterior aspect of the gastric antrum with extraluminal leakage of contrast. 2. Small volume of ascites. 3. Small pleural effusions. ADDENDUM: 05/03/24 1331 The extraluminal contrast remains near the site of perforation and may be contained by the omental patch. I discussed these findings with Dr. Moreno. Chest X-Ray 05/04/24 14:03 IMPRESSION: 1. PICC tip in the right atrium. 2. Airspace opacities in left lower lung zone with slight improvement, consistent with atelectasis versus pneumonia. Labs Labs: Laboratory Tests 05/05/24 04:48 05/05/24 04:48 Calcium 8.5 Magnesium 2.1 Total Bilirubin 2.5 H AST 46 ALT 35 Alkaline Phosphatase 235 H Total Protein 6.0 L Albumin 3.0 L
[2024-05-05] MEDS: AMINO ACIDS 5%/DEXTROSE 15% 2,000 ML with MULTIVITAMINS-12 INJ VIAL 1 2.5 ML, MULTIVITA... 25 ML IV CONT (16:26)
[2024-05-05] MEDS: FAT EMULSIONS IV 20% 250 ML 20 ML IVPB (16:27)
[2024-05-05 18:28] LABS: Glucose Point of Care 121 mg/dl (65-105)
[2024-05-05 23:37] LABS: Glucose Point of Care 140 mg/dl (65-105)
[2024-05-06] VITALS (11 sets, daily range): BP systolic 148–184; BP diastolic 52–66; PULSE 75–85; RESP 16–20; TEMP 36.4–37.9; O2SAT 95–99
[2024-05-06 05:49] LABS: Glucose Point of Care 130 mg/dl (65-105)
[2024-05-06] MEDS: METOCLOPRAMIDE HCL INJ 10 MG/2 ML VIAL IV PUSH ×3 (06:19→17:01)
[2024-05-06] MEDS: CENTRAL LINE FLUSH 10 ML IV PUSH ×3 (06:20→21:01)
[2024-05-06] MEDS: ENOXAPARIN 100 MG/ML SYRINGE SUB-Q ×2 (06:30→17:01)
[2024-05-06] MEDS: ENOXAPARIN 60 MG/0.6 ML SYRINGE 25 MG SUB-Q ×2 (06:30→17:01)
[2024-05-06] MEDS: LIDOCAINE 5% PATCH 1 PATCH TRANSDERM (08:23)
[2024-05-06] MEDS: MORPHINE SULFATE (*CRX) 4 MG/ML INJ IV PUSH ×5 (08:23→21:52)
[2024-05-06] MEDS: PANTOPRAZOLE SODIUM IV 40 MG VIAL IV PUSH ×2 (08:23→21:00)
--- NOTE | 2024-05-06 11:00 | PCNFU ---
Nutrition Follow-Up Complete: Inadequate oral intake related to altered GI function as evidenced by need for full TPN Goal: Meet estimated nutrition needs Patient is progressing towards goal. We will continue current goal. Pt current nutrition is Jevity 1.5 at 40 ml/hr with TPN at 25 ml/hr. Nutrition recommendation: Recommend d/c TPN and increase Jevity 1.5 to goal rate of 60 ml/hr. If able to tolerate PO recommending clear liquid diet. Last recorded weight is 125.2 kg, up from 123 kg on admit. Bowel Motility: Last reported BM 04/20 Labs Reviewed: No new labs to report. Meds Noted: Reglan, Zosyn, Diflucan, Lovenox. Skin: WNL Additional Notes: Patient is tolerating tube feedings of Jevity 1.5 at 40 ml/hr. Recommend d/c TPN and increase tube feedings to goal rate of 60ml/hr. Total nutrition from TF: 1980 kcal/84 gm protein/1003 ml water. Flush 100 ml q 4 hours. Patient passed bedside swallow eval, if patient is able to tolerate po recommend starting clear liquid diet. Ensure Clear TID will be on trays for additional 220 kcal and 8 gm protein. Monitoring TPN tolerance, GI function, plan of care, weights, labs, orders Follow up 3 days.
[2024-05-06 11:55] LABS: Glucose Point of Care 101 mg/dl (65-105)
--- NOTE | 2024-05-06 11:58 | P.PNIM_ITS ---
Progress Note: A&P Assessment and Plan (1) Perforated abdominal viscus: Code(s): R19.8 - Other specified symptoms and signs involving the digestive system and abdomen Status: Acute Assessment and Plan: * Septic shock in setting of peritonitis with perforated gastric ulcer: * Shock has resolved * Status post exploratory laparotomy with repair of antral gastric ulcer with omental Clarence patch, open gastrostomy tube * Surgery is following * Zosyn and Diflucan stopped today. * Passed swallow study. * TPN cut in half and tube feeding increased to 40 cc/hr. Surgery will consider starting clear liquids in the next day or so depending on how patient progresses. * Await bowel function to return * Electrolyte supplementation as per pharmacy as patient is on TPN. * Continue with PPI. * Pain regimen. * Monitor labs. (2) Malnutrition following gastrointestinal surgery: Code(s): K91.2 - Postsurgical malabsorption, not elsewhere classified Status: Acute Assessment and Plan: * Passed swallow study. * TPN cut in half and tube feeding increased to 40 cc/hr. Surgery will consider starting clear liquids in the next day or so depending on how patient progresses. * Surgery following. (3) Acute kidney injury superimposed on stage 3b chronic kidney disease: Code(s): N17.9 - Acute kidney failure, unspecified; N18.32 - Chronic kidney disease, stage 3b Status: Acute Assessment and Plan: * Avoid nephrotoxins * BUN 71, Creatinine 2.76, & GFR 23. * Nephrology following * Renal ultrasound was unremarkable for any acute issues. * Monitor labs. (4) HTN (hypertension): Code(s): I10 - Essential (primary) hypertension Status: Acute Assessment and Plan: * Blood pressure 148/55. Continue Clonidine patch and Hydralazine PRN. (5) Generalized weakness: Code(s): R53.1 - Weakness Status: Acute Assessment and Plan: * PT/OT (6) Hypokalemia: Code(s): E87.6 - Hypokalemia Status: Acute Assessment and Plan: * Potassium 3.6. * Monitor levels. Plan 78-year-old male with a past medical history of the osteoarthritis on chronic NS AID therapy, hyperlipidemia, hypertension, prior umbilical hernia repair, perforated appendix status post resection 2022 who presented to the ER via EMS with 3 days of sharp radiating abdominal pain. CT demonstrated perforated viscus with large amount of free air and fluid with mural thickening of the distal stomach and multiple punctate foci of extraluminal air with suspected perforated ulcer. Patient was evaluated by the surgeon in the ER was taken directly to the OR. Status post exploratory laparotomy with repair of antral gastric ulcer with omental Clarence patch. Placement of open gastrostomy tube on 04/22/2024. Patient was admitted to the ICU with shock requiring pressor support, intubated. Was eventually extubated on 04/25/2024. He was off pressor support on 04/24/2024. Has been on Zosyn and Diflucan as per surgery. Subjective Date/time seen: 05/06/24 11:58 Interval history: Patient sitting up in chair. Granddaughter at bedside. Patient reports pain in back is a 7 1/2 , constant, and aching. Patient denies chest pain, palpitations, headache, dizziness, nausea, or vomiting. Review of Systems Review of Systems: All systems reviewed & are unremarkable except as noted in HPI and below Exam Const: General: no acute distress and uncomfortable Resp: Effort & Inspection: normal respiratory effort Auscultation: diminished lung sounds Cardio: Rate: regular rate Rhythm: regular rhythm Other: Telemetry SR 78 GI: GI Palp: Yes Soft to palpation Auscultation: normal bowel sounds Other: Mildly distended. ELSA drains x2 with scant serous output. Neuro: Speech: normal speech Extrem: General: no pedal edema Psych: Mental Status: mental status grossly normal Affect: normal affect Objective Data Vital Signs Vital Signs: Vital Signs - 24 hr 05/05/24 12:00 05/05/24 14:00 05/05/24 16:00 Temperature 98.0 F Pulse Rate 72 78 72 Respiratory Rate 18 Blood Pressure 143/50 H Pulse Oximetry 99 Oxygen Delivery 05/05/24 19:37 05/05/24 20:00 05/06/24 00:00 Temperature 97.9 F Pulse Rate 78 74 75 Respiratory Rate 18 Blood Pressure 157/54 H Pulse Oximetry 100 Oxygen Delivery 05/06/24 04:00 05/06/24 04:21 05/06/24 07:49 Temperature 98.0 F 98.6 F Pulse Rate 80 77 80 Respiratory Rate 17 20 Blood Pressure 148/55 H 153/52 H Pulse Oximetry 96 97 Oxygen Delivery 05/06/24 08:20 Temperature Pulse Rate Respiratory Rate Blood Pressure Pulse Oximetry Oxygen Delivery Room Air Intake/Output Intake/Output: Intake & Output 05/03/24 05/04/24 05/05/24 05/06/24 23:59 23:59 23:59 23:59 Intake Total 2321.1 2525.9 1791.6 840 Output Total 2330 1670 1450 815 Balance -8.9 855.9 341.6 25 Meds/Results Medications: Active Medications Generic Name Dose Route Start Last Admin Trade Name Freq PRN Reason Stop Dose Admin Acetaminophen 650 mg 04/26/24 22:19 04/26/24 22:57 Acetaminophen 650 Mg Suppository RECTAL 650 mg Q6H PRN Administration Mild Pain (1-3) or Fever Acetaminophen 650 mg 05/05/24 10:27 Acetaminophen Elixir 325 Mg/10.15 Ml Udc PO Q6H PRN Mild Pain (1-3) or Fever Artificial Tears 1 drop 04/27/24 08:37 Artificial Tears Ophth Soln 15 Ml Bottle EACH EYE QID PRN Dry Eye(s) Atorvastatin Calcium 20 mg 04/30/24 09:00 Atorvastatin 20 Mg Tablet BY MOUTH DAILY ROSY Clonidine HCl 1 patch 05/01/24 09:00 05/01/24 11:36 Clonidine 0.1 Mg/24 Hr Patch TRANSDERM 1 patch WEEKLY ROSY Administration Dextrose 12.5 gm 04/22/24 23:06 Dextrose 50% 25 Gm/50 Ml Syringe IV PUSH PRN PRN Hypoglycemia Protocol Enoxaparin Sodium 100 mg 05/04/24 16:00 05/06/24 06:30 Enoxaparin 100 Mg/Ml Syringe SUB-Q 100 mg 0600,1800 ROSY Administration Enoxaparin Sodium 25 mg 05/04/24 16:00 05/06/24 06:30 Enoxaparin 60 Mg/0.6 Ml Syringe SUB-Q 25 mg 0600,1800 ROSY Administration Glucagon 1 mg 04/22/24 23:06 Glucagon For Inj 1 Mg Vial IM PRN PRN Hypoglycemia Protocol Glucose 15 gm 04/22/24 23:06 Glucose Oral Gel 15 Gm Of Glucse In 37.5 Gm Tube PO PRN PRN Hypoglycemia Protocol Hydralazine HCl 10 mg 04/25/24 08:00 05/03/24 21:47 Hydralazine Hcl 20 Mg/Ml Vial IV PUSH 10 mg Q4H PRN Administration Blood Pressure - High Dextrose 1,000 mls @ 100 mls/hr 04/22/24 23:06 Dextrose 5% 1,000 Ml IVPB PRN PRN Hypoglycemia Protocol Dextrose 1,000 mls @ 50 mls/hr 04/25/24 10:46 Dextrose 10% IV CONT .Q20H PRN if PN is interrupted Multivitamins 2.5 ml/ 2,005 mls @ 25 mls/hr 04/25/24 12:00 05/05/24 16:26 Multivitamins 2.5 ml/ Amino IV CONT 25 mls/hr Acids/Dextrose .Q24H ROSY Administration Protocol Fat Emulsion Intravenous 250 mls @ 20.833 mls/hr 04/25/24 12:00 05/06/24 05:00 Lipids 20% IVPB Infused Q24H ROSY Infusion Ipratropium [place] 0.5 mg 05/04/24 09:32 Ipratropium Br 0.02% Inh Soln 0.5 Mg/2.5 Ml Vial INHALATION Q6HRT PRN Shortness Of Breath Levalbuterol HCl 0.63 mg 05/04/24 09:32 Levalbuterol Neb 1.25 Mg/3 Ml INHALATION Q6HRT PRN Shortness Of Breath Lidocaine 1 patch 04/27/24 16:35 05/06/24 08:23 Lidocaine 5% Patch TRANSDERM 1 patch DAILY ROSY Administration Lorazepam 0.5 mg 04/27/24 19:01 05/03/24 21:48 Lorazepam Inj (*Crx) 2 Mg/Ml Vial IV PUSH 0.5 mg HS PRN Administration Sleep Metoclopramide HCl 10 mg 04/28/24 12:00 05/06/24 06:19 Metoclopramide Hcl Inj 10 Mg/2 Ml Vial IV PUSH 10 mg Q6HR ROSY Administration Morphine Sulfate 4 mg 04/22/24 22:02 05/06/24 08:23 Morphine Sulfate (*Crx) 4 Mg/Ml Inj IV PUSH 4 mg Q3H PRN Administration Pain Rated 7-10 Pantoprazole Sodium 40 mg 04/26/24 21:00 05/06/24 08:23 Pantoprazole Sodium Iv 40 Mg Vial IV PUSH 40 mg Q12HR ROSY Administration Sodium Chloride 10 ml 04/23/24 14:00 05/06/24 06:20 Central Line Flush IV PUSH 10 ml Q8HR ROSY Administration Sodium Chloride 20 ml 04/23/24 10:16 05/05/24 06:18 Central Line Flush IV PUSH 20 ml PRN PRN Administration after blood draws Sodium Chloride 10 ml 05/04/24 14:15 Central Line Flush IV PUSH PRN PRN with TPN bag changes Sodium Chloride 20 ml 05/04/24 14:15 05/05/24 06:18 Central Line Flush IV PUSH 20 ml PRN PRN Administration after blood draws Radiology Results: ITS Impressions Chest/Abdomen/Pelvis CTA 04/22/24 18:10 IMPRESSION: Perforated viscus with a large amount of free air and fluid, with mural thickening in the distal stomach and multiple punctate foci of extraluminal air in this area for which site of perforation is suspected. Renal Ultrasound 04/24/24 11:58 IMPRESSION: Simple cyst in the left kidney upper pole. Other appearances are unremarkable. Upper GI Series 04/28/24 16:58 IMPRESSION: 1. Likely locally contained exophytic mucosal leakage of contrast at the gastric antrum at the site of a reported repair ulcer. The irregular margins and absence of more diffuse distribution of the contrast with no contrast extending along the adjacent drainage catheters suggests that this likely remains confined by a reported omental patch. Definitive determination is required would consider repeat contrast contrast injection into the gastrostomy tube with subsequent CT imaging. Lower Extremity CTA 05/02/24 16:36 IMPRESSION: 1. Scattered atherosclerotic plaque in the arteries of the left lower limb as d etailed above without a discrete hemodynamic significant stenosis. Runoff below the ankle in the left posterior tibial artery this supplies the foot. Atretic distal peroneal and anterior tibial arteries with intraluminal contrast becoming indiscernible at the level of the ankle and with no appreciable contrast in the dorsalis pedis artery. Abdomen CT 05/03/24 10:41 IMPRESSION: 1. Perforation of the posterior aspect of the gastric antrum with extraluminal leakage of contrast. 2. Small volume of ascites. 3. Small pleural effusions. ADDENDUM: 05/03/24 1331 The extraluminal contrast remains near the site of perforation and may be contained by the omental patch. I discussed these findings with Dr. Moreno. Chest X-Ray 05/04/24 14:03 IMPRESSION: 1. PICC tip in the right atrium. 2. Airspace opacities in left lower lung zone with slight improvement, consistent with atelectasis versus pneumonia. Labs Labs: Laboratory Results - last 24 hr 05/05/24 05/05/24 05/05/24 12:48 18:25 23:34 POC Capillary Glucose 117 H 121 H 140 H 05/06/24 05/06/24 05:45 11:53 POC Capillary Glucose 130 H 101 Quality VTE Prophylaxis VTE prophylaxis: mechanical ordered and pharmacologic ordered
[2024-05-06 12:03] LABS: Basophils Absolute Auto 0.1 K/mm3 (0.0-0.1); Basophils Percent Auto 0.9 % (0.2-1.2); Eosinophils Absolute Auto 0.3 K/mm3 (0-0.3); Eosinophils Percent Auto 3.8 % (0-4.4); Hematocrit 30.2 % (42.0-52.0); Hemoglobin 9.6 g/dL (14.0-18.0); Immature Granulocyte Absolute 0.14 K/mm3 (0.00-0.031); Immature Granulocyte Percent A 1.7 % (0-0.5); Immature Platelet Fraction Pct 9.8 % (0.9-11.2); Lymphocytes Absolute Auto 0.62 K/mm3 (0.9-3.2); Lymphocytes Percent Auto 7.6 % (18.3-44.2); Mean Corpuscular HGB Conc 31.8 g/dl (32-36); Mean Corpuscular Hemoglobin 29.3 pg (26-34); Mean Corpuscular Volume 92.1 fl (80-100); Mean Platelet Volume 13.3 fl (7.4-10.4); Monocytes Absolute Auto 0.8 K/mm3 (0.1-0.6); Monocytes Percent Auto 10.1 % (2.6-8.5); Neutrophils Absolute Auto 6.2 K/mm3 (1.3-6.7); Neutrophils Percent Auto 75.9 % (45.5-73.1); Platelet Count Result 298 k/mm3 (150-375); Red Blood Count 3.28 M/mm3 (4.6-6.20); Red Cell Distribution Width 15.4 % (11.5-14.5); White Blood Count 8.1 K/mm3 (4.5-10.0)
[2024-05-06 12:09] LABS: Triglycerides 128 mg/dL (<150)
[2024-05-06 12:11] LABS: Alanine Aminotransferase 37 U/L (6-50); Alkaline Phosphatase 251 U/L (38-126); Anion Gap 12 mmol/L (4-12); Aspartate Amino Transferase 40 U/L (17-59); Bilirubin,Total 1.5 mg/dL (0.2-1.3); Blood Urea Nitrogen 71 mg/dL (9-20); Calcium 8.4 mg/dL (8.4-10.2); Carbon Dioxide 18 mmol/L (22-30); Chloride 113 mmol/L (98-107); Estimated CRCL calculation 29 ml/min; Estimated Glomerular Filt Rate 23; Glucose 138 mg/dL (65-110); Magnesium 2.1 mg/dL (1.6-2.3); Phosphorus 3.8 mg/dL (2.5-4.5); Potassium 3.6 mmol/L (3.4-5.0); Sodium 143 mmol/L (137-145)
--- NOTE | 2024-05-06 12:13 | P.PNNP_ITS ---
Progress Note: A&P Assessment and Plan (1) Acute kidney injury: Code(s): N17.9 - Acute kidney failure, unspecified Status: Acute Assessment and Plan: * continues to fluctuate * suspect multifactorial etiology: * NSAID use * hypotension/hemodynmic instability/shock * sepsis/infection * third spacing * recent contrast exposure (with LE CTA on 05/02) * evaluation to date: * CT shows normal kidneys * renal u/s with simple cyst x 1 o/w unremarkable. * urine electrolytes are prerenal * CPK mildly elevated (but not enough to affect kidneys) * urine eosinophils negative * mild proteinuria * good urine output noted * follow trend of repeat labs and UOP (2) Stage 3b chronic kidney disease: Code(s): N18.32 - Chronic kidney disease, stage 3b Status: Chronic Assessment and Plan: * creatinine ~ 1.5mg/dl in November 2023 * suspect secondary to hypertension, peripheral vascular disease, and possibly chronic NSAID use as well as age-related change (3) Perforated gastric ulcer: Onset Date: 04/2024 Qualifiers: Gastric ulcer chronicity: acute Qualified Code(s): K25.1 - Acute gastric ulcer with perforation Code(s): K25.5 - Chronic or unspecified gastric ulcer with perforation Status: Acute Assessment and Plan: * suspect secondary to NSAID use * s/p exploratory laparotomy and repair of antral gastric ulcer with omental [place] patch and placement of open gastrostomy tube (on 04/22) * completed course of antibiotics * weaning TPN * G-tube feeding being advanced * General Surgery following (4) PAD (peripheral artery disease): Code(s): I73.9 - Peripheral vascular disease, unspecified Status: Acute Assessment and Plan: * CTA of left lower extremity noted * suspect acute on chronic issue * on anticoagulation (5) Acute respiratory failure: Code(s): J96.00 - Acute respiratory failure, unspecified whether with hypoxia or hypercapnia Status: Acute Assessment and Plan: * resolved * on room air * follow CXRs and respiratory status (6) Anemia: Code(s): D64.9 - Anemia, unspecified Status: Acute Assessment and Plan: * relatively stable * due to RIC, CKD, and acute illness * follow trend of H/H (7) Malnutrition following gastrointestinal surgery: Code(s): K91.2 - Postsurgical malabsorption, not elsewhere classified Status: Acute Assessment and Plan: * on TPN * slowly transitioning to tube feeds as tolerated * eventual goal is to transition to oral intake (8) HTN (hypertension): Code(s): I10 - Essential (primary) hypertension Status: Acute Assessment and Plan: * blood pressure under reasonable control * on PRN hydralazine and clonidine patch * resume oral meds when able to take po intake * follow trend of hemodynamics Will continue to follow. L Subjective Date/time seen: 05/06/24 12:12 Interval history: Follow-up for acute kidney injury/acute renal failure. Tolerating tube feeds reasonably well with slow weaning of TPN; unfortunately, renal function/creatinine continues to fluctuate although still making reasonable urine output; no other issues/events overnight or earlier this morning; no apparent distress noted. Exam 2 Narrative: General: elderly but WD/WN male in NAD Heart: normal S1 and S2; no rub Lungs: clear anteriorly Abdomen: soft, nontender; some bowel sounds; +G-tube Extremities: no cyanosis or clubbing; trace - 1+ edema Skin: warm and dry Objective Data Vital Signs Vital Signs: Vital Signs Temp Pulse Resp BP Pulse Ox O2 Del Method 05/06/24 12:00 97.5 F L 75 16 99 05/06/24 08:20 Room Air 05/06/24 08:00 76 05/06/24 07:49 98.6 F 80 20 153/52 H 97 05/06/24 04:21 98.0 F 77 17 148/55 H 96 05/06/24 04:00 80 05/06/24 00:00 75 05/05/24 20:00 74 05/05/24 19:37 97.9 F 78 18 157/54 H 100 Intake/Output Intake/Output: Intake & Output 05/03/24 05/04/24 05/05/24 05/06/24 23:59 23:59 23:59 23:59 Intake Total 2321.1 2525.9 1791.6 840 Output Total 2330 1670 1450 1249 Balance -8.9 855.9 341.6 -409 Meds/Results Medications: Active Medications Generic Name Dose Route Start Last Admin Trade Name Freq PRN Reason Stop Dose Admin Acetaminophen 650 mg 04/26/24 22:19 04/26/24 22:57 Acetaminophen 650 Mg Suppository RECTAL 650 mg Q6H PRN Administration Mild Pain (1-3) or Fever Acetaminophen 650 mg 05/05/24 10:27 Acetaminophen Elixir 325 Mg/10.15 Ml Udc PO Q6H PRN Mild Pain (1-3) or Fever Artificial Tears 1 drop 04/27/24 08:37 Artificial Tears Ophth Soln 15 Ml Bottle EACH EYE QID PRN Dry Eye(s) Atorvastatin Calcium 20 mg 04/30/24 09:00 Atorvastatin 20 Mg Tablet BY MOUTH DAILY ROSY Clonidine HCl 1 patch 05/01/24 09:00 05/01/24 11:36 Clonidine 0.1 Mg/24 Hr Patch TRANSDERM 1 patch WEEKLY ROSY Administration Dextrose 12.5 gm 04/22/24 23:06 Dextrose 50% 25 Gm/50 Ml Syringe IV PUSH PRN PRN Hypoglycemia Protocol Enoxaparin Sodium 100 mg 05/04/24 16:00 05/06/24 06:30 Enoxaparin 100 Mg/Ml Syringe SUB-Q 100 mg 0600,1800 ROSY Administration Enoxaparin Sodium 25 mg 05/04/24 16:00 05/06/24 06:30 Enoxaparin 60 Mg/0.6 Ml Syringe SUB-Q 25 mg 0600,1800 ROSY Administration Glucagon 1 mg 04/22/24 23:06 Glucagon For Inj 1 Mg Vial IM PRN PRN Hypoglycemia Protocol Glucose 15 gm 04/22/24 23:06 Glucose Oral Gel 15 Gm Of Glucse In 37.5 Gm Tube PO PRN PRN Hypoglycemia Protocol Hydralazine HCl 10 mg 04/25/24 08:00 05/03/24 21:47 Hydralazine Hcl 20 Mg/Ml Vial IV PUSH 10 mg Q4H PRN Administration Blood Pressure - High Dextrose 1,000 mls @ 100 mls/hr 04/22/24 23:06 Dextrose 5% 1,000 Ml IVPB PRN PRN Hypoglycemia Protocol Dextrose 1,000 mls @ 50 mls/hr 04/25/24 10:46 Dextrose 10% IV CONT .Q20H PRN if PN is interrupted Fat Emulsion Intravenous 250 mls @ 20.833 mls/hr 04/25/24 12:00 05/06/24 05:00 Lipids 20% IVPB Infused Q24H ROSY Infusion Multivitamins 1.25 ml/ 1,002.5 mls @ 25 mls/hr 05/06/24 16:30 Multivitamins 1.25 ml/ Amino IV CONT Acids/Dextrose .Q24H ROSY Ipratropium [place] 0.5 mg 05/04/24 09:32 Ipratropium Br 0.02% Inh Soln 0.5 Mg/2.5 Ml Vial INHALATION Q6HRT PRN Shortness Of Breath Levalbuterol HCl 0.63 mg 05/04/24 09:32 Levalbuterol Neb 1.25 Mg/3 Ml INHALATION Q6HRT PRN Shortness Of Breath Lidocaine 1 patch 04/27/24 16:35 05/06/24 08:23 Lidocaine 5% Patch TRANSDERM 1 patch DAILY ROSY Administration Lorazepam 0.5 mg 04/27/24 19:01 05/03/24 21:48 Lorazepam Inj (*Crx) 2 Mg/Ml Vial IV PUSH 0.5 mg HS PRN Administration Sleep Metoclopramide HCl 10 mg 04/28/24 12:00 05/06/24 11:55 Metoclopramide Hcl Inj 10 Mg/2 Ml Vial IV PUSH 10 mg Q6HR ROSY Administration Morphine Sulfate 4 mg 04/22/24 22:02 05/06/24 15:08 Morphine Sulfate (*Crx) 4 Mg/Ml Inj IV PUSH 4 mg Q3H PRN Administration Pain Rated 7-10 Pantoprazole Sodium 40 mg 04/26/24 21:00 05/06/24 08:23 Pantoprazole Sodium Iv 40 Mg Vial IV PUSH 40 mg Q12HR ROSY Administration Sodium Chloride 10 ml 04/23/24 14:00 05/06/24 11:56 Central Line Flush IV PUSH 10 ml Q8HR ROSY Administration Sodium Chloride 20 ml 04/23/24 10:16 05/05/24 06:18 Central Line Flush IV PUSH 20 ml PRN PRN Administration after blood draws Sodium Chloride 10 ml 05/04/24 14:15 Central Line Flush IV PUSH PRN PRN with TPN bag changes Sodium Chloride 20 ml 05/04/24 14:15 05/05/24 06:18 Central Line Flush IV PUSH 20 ml PRN PRN Administration after blood draws Radiology Results: ITS Impressions Chest/Abdomen/Pelvis CTA 04/22/24 18:10 IMPRESSION: Perforated viscus with a large amount of free air and fluid, with mural thickening in the distal stomach and multiple punctate foci of extraluminal air in this area for which site of perforation is suspected. Renal Ultrasound 04/24/24 11:58 IMPRESSION: Simple cyst in the left kidney upper pole. Other appearances are unremarkable. Upper GI Series 04/28/24 16:58 IMPRESSION: 1. Likely locally contained exophytic mucosal leakage of contrast at the gastric antrum at the site of a reported repair ulcer. The irregular margins and absence of more diffuse distribution of the contrast with no contrast extending along the adjacent drainage catheters suggests that this likely remains confined by a reported omental patch. Definitive determination is required would consider repeat contrast contrast injection into the gastrostomy tube with subsequent CT imaging. Lower Extremity CTA 05/02/24 16:36 IMPRESSION: 1. Scattered atherosclerotic plaque in the arteries of the left lower limb as detailed above without a discrete hemodynamic significant stenosis. Runoff below the ankle in the left posterior tibial artery this supplies the foot. Atretic distal peroneal and anterior tibial arteries with intraluminal contrast becoming indiscernible at the level of the ankle and with no appreciable contrast in the dorsalis pedis artery. Abdomen CT 05/03/24 10:41 IMPRESSION: 1. Perforation of the posterior aspect of the gastric antrum with extraluminal leakage of contrast. 2. Small volume of ascites. 3. Small pleural effusions. ADDENDUM: 05/03/24 1331 The extraluminal contrast remains near the site of perforation and may be contained by the omental patch. I discussed these findings with Dr. Moreno. Chest X-Ray 05/04/24 14:03 IMPRESSION: 1. PICC tip in the right atrium. 2. Airspace opacities in left lower lung zone with slight improvement, consistent with atelectasis versus pneumonia. Labs Labs: Laboratory Tests 05/06/24 11:23 05/06/24 11:23 Calcium 8.4 Phosphorus 3.8 Magnesium 2.1 Total Bilirubin 1.5 H AST 40 ALT 37 Alkaline Phosphatase 251 H Total Protein 6.0 L Albumin 3.0 L Triglycerides 128
[2024-05-06] MEDS: AMINO ACIDS 5%/DEXTROSE 15% 1,000 ML with MULTIVITAMINS-12 INJ VIAL 1 1.25 ML, MULTIVIT... 25 ML IV CONT (16:50)
[2024-05-06] MEDS: FAT EMULSIONS IV 20% 250 ML 20 ML IVPB (16:50)
--- NOTE | 2024-05-06 17:11 | PC.NURSE ---
On 05/06/24, the student,Jovanny Jarrett, provided care and completed [facility] documentation on this patient. I have reviewed the student's documentation and agree with the findings.
--- NOTE | 2024-05-06 18:23 | PM.PNGS ---
Progress Note: A&P Assessment and Plan (1) Perforated abdominal viscus: Code(s): R19.8 - Other specified symptoms and signs involving the digestive system and abdomen Status: Acute Assessment and Plan: Tube feeding rate advanced to 60 an hour. If tolerates okay will DC TPN tomorrow. May try working in some liquids day after tomorrow. (2) Malnutrition following gastrointestinal surgery: Code(s): K91.2 - Postsurgical malabsorption, not elsewhere classified Status: Acute Assessment and Plan: See above (3) PAD (peripheral artery disease): Code(s): I73.9 - Peripheral vascular disease, unspecified Status: Acute Assessment and Plan: He has been transitioned to Lovenox 1 mg/kg Q12H. We will plan on eventually transitioning him to an oral agent once he is tolerating oral intake prior to discharge. Subjective Subjective Date/Time Seen: 05/06/24 18:23 Patient reports: no new complaints, bowel movement, afebrile and other (Tolerating tube feedings pretty well. Have advanced goal rate to 60 cc an hour as recommended by dietitian.) Exam Const: General: comfortable, alert and awake Orientation/consciousness: patient oriented x3 GI: Inspection: obesity GI Palp: Yes Soft to palpation and No Tenderness to palpation present (GI) Objective Data Vital Signs Vital Signs: Vital Signs - 24 hr 05/05/24 19:37 05/05/24 20:00 05/06/24 00:00 Temperature 36.6 C Pulse Rate 78 74 75 Respiratory Rate 18 Blood Pressure 157/54 H Pulse Oximetry 100 Oxygen Delivery 05/06/24 04:00 05/06/24 04:21 05/06/24 07:49 Temperature 36.7 C 37.0 C Pulse Rate 80 77 80 Respiratory Rate 17 20 Blood Pressure 148/55 H 153/52 H Pulse Oximetry 96 97 Oxygen Delivery 05/06/24 08:00 05/06/24 08:20 05/06/24 12:00 Temperature Pulse Rate 76 77 Respiratory Rate Blood Pressure Pulse Oximetry Oxygen Delivery Room Air 05/06/24 14:00 05/06/24 15:18 05/06/24 16:00 Temperature 36.4 C L 36.4 C L Pulse Rate 75 75 77 Respiratory Rate 16 16 Blood Pressure 165/66 H Pulse Oximetry 99 99 Oxygen Delivery Intake/Output Intake/Output: Intake & Output 05/03/24 05/04/24 05/05/24 05/06/24 23:59 23:59 23:59 23:59 Intake Total 2321.1 2525.9 1791.6 1450 Output Total 2330 1670 1450 1249 Balance -8.9 855.9 341.6 201 Meds/Results Medications: Active Medications Generic Name Dose Route Start Last Admin Trade Name Freq PRN Reason Stop Dose Admin Acetaminophen 650 mg 04/26/24 22:19 04/26/24 22:57 Acetaminophen 650 Mg Suppository RECTAL 650 mg Q6H PRN Administration Mild Pain (1-3) or Fever Acetaminophen 650 mg 05/05/24 10:27 Acetaminophen Elixir 325 Mg/10.15 Ml Udc PO Q6H PRN Mild Pain (1-3) or Fever Artificial Tears 1 drop 04/27/24 08:37 Artificial Tears Ophth Soln 15 Ml Bottle EACH EYE QID PRN Dry Eye(s) Atorvastatin Calcium 20 mg 04/30/24 09:00 Atorvastatin 20 Mg Tablet BY MOUTH DAILY ROSY Clonidine HCl 1 patch 05/01/24 09:00 05/01/24 11:36 Clonidine 0.1 Mg/24 Hr Patch TRANSDERM 1 patch WEEKLY ROSY Administration Dextrose 12.5 gm 04/22/24 23:06 Dextrose 50% 25 Gm/50 Ml Syringe IV PUSH PRN PRN Hypoglycemia Protocol Enoxaparin Sodium 100 mg 05/04/24 16:00 05/06/24 17:01 Enoxaparin 100 Mg/Ml Syringe SUB-Q 100 mg 0600,1800 ROSY Administration Enoxaparin Sodium 25 mg 05/04/24 16:00 05/06/24 17:01 Enoxaparin 60 Mg/0.6 Ml Syringe SUB-Q 25 mg 0600,1800 ROSY Administration Glucagon 1 mg 04/22/24 23:06 Glucagon For Inj 1 Mg Vial IM PRN PRN Hypoglycemia Protocol Glucose 15 gm 04/22/24 23:06 Glucose Oral Gel 15 Gm Of Glucse In 37.5 Gm Tube PO PRN PRN Hypoglycemia Protocol Hydralazine HCl 10 mg 04/25/24 08:00 05/03/24 21:47 Hydralazine Hcl 20 Mg/Ml Vial IV PUSH 10 mg Q4H PRN Administration Blood Pressure - High Dextrose 1,000 mls @ 100 mls/hr 04/22/24 23:06 Dextrose 5% 1,000 Ml IVPB PRN PRN Hypoglycemia Protocol Dextrose 1,000 mls @ 50 mls/hr 04/25/24 10:46 Dextrose 10% IV CONT .Q20H PRN if PN is interrupted Fat Emulsion Intravenous 250 mls @ 20.833 mls/hr 04/25/24 12:00 05/06/24 16:50 Lipids 20% IVPB 20 mls/hr Q24H ROSY Administration Multivitamins 1.25 ml/ 1,002.5 mls @ 25 mls/hr 05/06/24 16:30 05/06/24 16:50 Multivitamins 1.25 ml/ Amino IV CONT 25 mls/hr Acids/Dextrose .Q24H ROSY Administration Ipratropium [place] 0.5 mg 05/04/24 09:32 Ipratropium Br 0.02% Inh Soln 0.5 Mg/2.5 Ml Vial INHALATION Q6HRT PRN Shortness Of Breath Levalbuterol HCl 0.63 mg 05/04/24 09:32 Levalbuterol Neb 1.25 Mg/3 Ml INHALATION Q6HRT PRN Shortness Of Breath Lidocaine 1 patch 04/27/24 16:35 05/06/24 08:23 Lidocaine 5% Patch TRANSDERM 1 patch DAILY ROSY Administration Lorazepam 0.5 mg 04/27/24 19:01 05/03/24 21:48 Lorazepam Inj (*Crx) 2 Mg/Ml Vial IV PUSH 0.5 mg HS PRN Administration Sleep Metoclopramide HCl 10 mg 04/28/24 12:00 05/06/24 17:01 Metoclopramide Hcl Inj 10 Mg/2 Ml Vial IV PUSH 10 mg Q6HR ROSY Administration Morphine Sulfate 4 mg 04/22/24 22:02 05/06/24 15:08 Morphine Sulfate (*Crx) 4 Mg/Ml Inj IV PUSH 4 mg Q3H PRN Administration Pain Rated 7-10 Pantoprazole Sodium 40 mg 04/26/24 21:00 05/06/24 08:23 Pantoprazole Sodium Iv 40 Mg Vial IV PUSH 40 mg Q12HR ROSY Administration Sodium Chloride 10 ml 04/23/24 14:00 05/06/24 11:56 Central Line Flush IV PUSH 10 ml Q8HR ROSY Administration Sodium Chloride 20 ml 04/23/24 10:16 05/05/24 06:18 Central Line Flush IV PUSH 20 ml PRN PRN Administration after blood draws Sodium Chloride 10 ml 05/04/24 14:15 Central Line Flush IV PUSH PRN PRN with TPN bag changes Sodium Chloride 20 ml 05/04/24 14:15 05/05/24 06:18 Central Line Flush IV PUSH 20 ml PRN PRN Administration after blood draws Radiology Results: ITS Impressions Chest/Abdomen/Pelvis CTA 04/22/24 18:10 IMPRESSION: Perforated viscus with a large amount of free air and fluid, with mural thickening in the distal stomach and multiple punctate foci of extraluminal air in this area for which site of perforation is suspected. Renal Ultrasound 04/24/24 11:58 IMPRESSION: Simple cyst in the left kidney upper pole. Other appearances are unremarkable. Upper GI Series 04/28/24 16:58 IMPRESSION: 1. Likely locally contained exophytic mucosal leakage of contrast at the gastric antrum at the site of a reported repair ulcer. The irregular margins and absence of more diffuse distribution of the contrast with no contrast extending along the adjacent drainage catheters suggests that this likely remains confined by a reported omental patch. Definitive determination is required would consider repeat contrast contrast injection into the gastrostomy tube with subsequent CT imaging. Lower Extremity CTA 05/02/24 16:36 IMPRESSION: 1. Scattered atherosclerotic plaque in the arteries of the left lower limb as detailed above without a discrete hemodynamic significant stenosis. Runoff below the ankle in the left posterior tibial artery this supplies the foot. Atretic distal peroneal and anterior tibial arteries with intraluminal contrast becoming indiscernible at the level of the ankle and with no appreciable contrast in the dorsalis pedis artery. Abdomen CT 05/03/24 10:41 IMPRESSION: 1. Perforation of the posterior aspect of the gastric antrum with extraluminal leakage of contrast. 2. Small volume of ascites. 3. Small pleural effusions. ADDENDUM: 05/03/24 1331 The extraluminal contrast remains near the site of perforation and may be contained by the omental patch. I discussed these findings with Dr. Moreno. Chest X-Ray 05/04/24 14:03 IMPRESSION: 1. PICC tip in the right atrium. 2. Airspace opacities in left lower lung zone with slight improvement, consistent with atelectasis versus pneumonia. Labs Labs: Laboratory Results - last 24 hr 05/05/24 05/05/24 05/06/24 18:25 23:34 05:45 WBC RBC Hgb Hct MCV MCH MCHC RDW Plt Count MPV Immature Gran % (Auto) Neut % (Auto) Lymph % (Auto) [place] % (Auto) Eos % (Auto) Baso % (Auto) Lymph # (Auto) [place] # (Auto) Eos # (Auto) Baso # (Auto) Abs Immat Gran (auto) Absolute Neuts (auto) Absolute Nucleated RBC Nucleated RBC % % Immature Plt Fraction Sodium Potassium Chloride Carbon Dioxide Anion Gap BUN Creatinine Estim Creat Clear Calc Estimated GFR Glucose POC Capillary Glucose 121 H 140 H 130 H Calcium Phosphorus Magnesium Total Bilirubin AST ALT Alkaline Phosphatase Total Protein Albumin Triglycerides 05/06/24 05/06/24 11:23 11:53 WBC 8.1 RBC 3.28 L Hgb 9.6 L Hct 30.2 L MCV 92.1 MCH 29.3 MCHC 31.8 L RDW 15.4 H Plt Count 298 MPV 13.3 H Immature Gran % (Auto) 1.7 H Neut % (Auto) 75.9 H Lymph % (Auto) 7.6 L [place] % (Auto) 10.1 H Eos % (Auto) 3.8 Baso % (Auto) 0.9 Lymph # (Auto) 0.62 L [place] # (Auto) 0.8 H Eos # (Auto) 0.3 Baso # (Auto) 0.1 Abs Immat Gran (auto) 0.14 H Absolute Neuts (auto) 6.2 Absolute Nucleated RBC 0.000 Nucleated RBC % 0.0 % Immature Plt Fraction 9.8 Sodium 143 Potassium 3.6 Chloride 113 H Carbon Dioxide 18 L Anion Gap 12 BUN 71 H Creatinine 2.76 H Estim Creat Clear Calc 29 Estimated GFR 23 L Glucose 138 H POC Capillary Glucose 101 Calcium 8.4 Phosphorus 3.8 Magnesium 2.1 Total Bilirubin 1.5 H AST 40 ALT 37 Alkaline Phosphatase 251 H Total Protein 6.0 L Albumin 3.0 L Triglycerides 128
[2024-05-06] MEDS: LORazepam INJ (*CRX) 2 MG/ML VIAL 0.5 MG IV PUSH (21:00)
[2024-05-07] VITALS (11 sets, daily range): BP systolic 101–136; BP diastolic 39–57; PULSE 77–94; RESP 16–18; TEMP 36.6–38.2; O2SAT 94–96
[2024-05-07 00:09] LABS: Glucose Point of Care 136 mg/dl (65-105)
[2024-05-07] MEDS: METOCLOPRAMIDE HCL INJ 10 MG/2 ML VIAL IV PUSH ×2 (00:26→05:59)
[2024-05-07] MEDS: ACETAMINOPHEN ELIXIR 325 MG/10.15 ML UDC 650 MG PO ×2 (01:04→17:37)
[2024-05-07] MEDS: MORPHINE SULFATE (*CRX) 4 MG/ML INJ IV PUSH ×3 (02:23→14:18)
[2024-05-07 04:38] LABS: Estimated CRCL calculation 27 ml/min; Estimated Glomerular Filt Rate 21
[2024-05-07] MEDS: ENOXAPARIN 60 MG/0.6 ML SYRINGE 25 MG SUB-Q (05:58)
[2024-05-07] MEDS: ENOXAPARIN 100 MG/ML SYRINGE SUB-Q (05:59)
[2024-05-07] MEDS: CENTRAL LINE FLUSH 10 ML IV PUSH ×3 (05:59→21:32)
[2024-05-07 06:03] LABS: Glucose Point of Care 146 mg/dl (65-105)
[2024-05-07] MEDS: LIDOCAINE 5% PATCH 1 PATCH TRANSDERM (09:50)
[2024-05-07] MEDS: PANTOPRAZOLE SODIUM IV 40 MG VIAL IV PUSH ×2 (09:51→20:31)
[2024-05-07 10:01] LABS: Albumin Level 2.8 g/dL (3.5-5.1); Anion Gap 9 mmol/L (4-12); Blood Urea Nitrogen 74 mg/dL (9-20); Calcium 7.8 mg/dL (8.4-10.2); Carbon Dioxide 19 mmol/L (22-30); Chloride 110 mmol/L (98-107); Estimated CRCL calculation 25 ml/min; Estimated Glomerular Filt Rate 19; Glucose 425 mg/dL (65-110); Phosphorus 3.9 mg/dL (2.5-4.5); Potassium 3.8 mmol/L (3.4-5.0); Sodium 138 mmol/L (137-145)
[2024-05-07 10:31] LABS: Glucose Point of Care 131 mg/dl (65-105)
--- NOTE | 2024-05-07 10:35 | P.PNIM_ITS ---
Progress Note: A&P Assessment and Plan (1) Perforated abdominal viscus: Code(s): R19.8 - Other specified symptoms and signs involving the digestive system and abdomen Status: Acute Assessment and Plan: * Septic shock in setting of peritonitis with perforated gastric ulcer: * Shock has resolved * Status post exploratory laparotomy with repair of antral gastric ulcer with omental Clarence patch, open gastrostomy tube * Surgery is following * Zosyn and Diflucan stopped on 05/05/24. * Passed swallow study. * TPN stopped today. Tube feeding at 60 cc/hr. Increase flush from 30 cc to 120 cc. Surgery will consider starting clear liquids in the next day or so depending on how patient progresses. * Await bowel function to return * Continue with PPI. * Pain regimen. * Monitor labs. (2) Malnutrition following gastrointestinal surgery: Code(s): K91.2 - Postsurgical malabsorption, not elsewhere classified Status: Acute Assessment and Plan: * Passed swallow study. * TPN stopped today. Tube feeding at 60 cc/hr. Increase flush from 30 cc to 120 cc. Surgery will consider starting clear liquids in the next day or so depending on how patient progresses. * Surgery following. (3) Acute kidney injury superimposed on stage 3b chronic kidney disease: Code(s): N17.9 - Acute kidney failure, unspecified; N18.32 - Chronic kidney disease, stage 3b Status: Acute Assessment and Plan: * Avoid nephrotoxins * BUN 74, Creatinine 3.19, & GFR 19. * Nephrology following * Renal ultrasound was unremarkable for any acute issues. * Monitor labs. (4) HTN (hypertension): Code(s): I10 - Essential (primary) hypertension Status: Acute Assessment and Plan: * Blood pressure 136/57. * Continue Clonidine patch and Hydralazine PRN. (5) Generalized weakness: Code(s): R53.1 - Weakness Status: Acute Assessment and Plan: * PT/OT (6) Hypokalemia: Code(s): E87.6 - Hypokalemia Status: Acute Assessment and Plan: * Potassium 3.8. * Monitor levels. Plan 78-year-old male with a past medical history of the osteoarthritis on chronic NSAID therapy, hyperlipidemia, hypertension, prior umbilical hernia repair, perforated appendix status post resection 2022 who presented to the ER via EMS with 3 days of sharp radiating abdominal pain. CT demonstrated perforated viscus with large amount of free air and fluid with mural thickening of the distal stomach and multiple punctate foci of extraluminal air with suspected perforated ulcer. Patient was evaluated by the surgeon in the ER was taken directly to the OR. Status post exploratory laparotomy with repair of antral gastric ulcer with omental Clarence patch. Placement of open gastrostomy tube on 04/22/2024. Patient was admitted to the ICU with shock requiring pressor support, intubated. Was eventually extubated on 04/25/2024. He was off pressor support on 04/24/2024. Has been on Zosyn and Diflucan as per surgery, stopped 05/05/24. Subjective Date/time seen: 05/07/24 10:35 Interval history: Patient lying in bed with hob elevated. Patient denies chest pain, shortness of breath, nausea, vomiting, headache, dizziness, nausea, or vomiting. Review of Systems Review of Systems: All systems reviewed & are unremarkable except as noted in HPI and below Exam Const: General: comfortable and no acute distress Resp: Effort & Inspection: normal respiratory effort Auscultation: diminished lung sounds Cardio: Rate: regular rate Rhythm: regular rhythm Other: Telemetry- SR 82 GI: GI Palp: Yes Soft to palpation and Yes Tenderness to palpation present (GI) Other: hypoactive bowel sounds. Urinary Catheter: Urinary Catheter: patent and draining Neuro: Speech: normal speech Extrem: General: no pedal edema Psych: Mental Status: mental status grossly normal Affect: normal affect Objective Data Vital Signs Vital Signs: Vital Signs - 24 hr 05/06/24 12:00 05/06/24 14:00 05/06/24 15:18 Temperature 97.5 F L 97.5 F L Pulse Rate 77 75 75 Respiratory Rate 16 16 Blood Pressure 165/66 H Pulse Oximetry 99 99 Oxygen Delivery Fraction of Inspired Oxygen 05/06/24 16:00 05/06/24 19:20 05/06/24 20:00 Temperature 100.2 F H Pulse Rate 77 85 85 Respiratory Rate 16 16 Blood Pressure 184/59 H Pulse Oximetry 95 95 Oxygen Delivery Room Air Fraction of Inspired Oxygen 05/06/24 20:00 05/07/24 00:00 05/07/24 00:47 Temperature 100.7 F H Pulse Rate 83 94 94 Respiratory Rate 16 Blood Pressure 136/57 L Pulse Oximetry 95 Oxygen Delivery Fraction of Inspired Oxygen 05/07/24 01:04 05/07/24 04:00 05/07/24 04:27 Temperature 100.7 F H 97.8 F Pulse Rate 84 79 Respiratory Rate 16 Blood Pressure 104/39 L Pulse Oximetry 96 Oxygen Delivery Fraction of Inspired Oxygen Intake/Output Intake/Output: Intake & Output 05/04/24 05/05/24 05/06/24 05/07/24 23:59 23:59 23:59 23:59 Intake Total 2525.9 1791.6 1450 1354 Output Total 1670 1450 1624 350 Balance 855.9 341.6 -174 1004 Meds/Results Medications: Active Medications Generic Name Dose Route Start Last Admin Trade Name Freq PRN Reason Stop Dose Admin Acetaminophen 650 mg 04/26/24 22:19 04/26/24 22:57 Acetaminophen 650 Mg Suppository RECTAL 650 mg Q6H PRN Administration Mild Pain (1-3) or Fever Acetaminophen 650 mg 05/05/24 10:27 05/07/24 01:04 Acetaminophen Elixir 325 Mg/10.15 Ml Udc PO 650 mg Q6H PRN Administration Mild Pain (1-3) or Fever Artificial Tears 1 drop 04/27/24 08:37 Artificial Tears Ophth Soln 15 Ml Bottle EACH EYE QID PRN Dry Eye(s) Atorvastatin Calcium 20 mg 04/30/24 09:00 Atorvastatin 20 Mg Tablet BY MOUTH DAILY ROSY Clonidine HCl 1 patch 05/01/24 09:00 05/01/24 11:36 Clonidine 0.1 Mg/24 Hr Patch TRANSDERM 1 patch WEEKLY ROSY Administration Dextrose 12.5 gm 04/22/24 23:06 Dextrose 50% 25 Gm/50 Ml Syringe IV PUSH PRN PRN Hypoglycemia Protocol Enoxaparin Sodium 100 mg 05/04/24 16:00 05/07/24 05:59 Enoxaparin 100 Mg/Ml Syringe SUB-Q 100 mg 0600,1800 ROSY Administration Enoxaparin Sodium 25 mg 05/04/24 16:00 05/07/24 05:58 Enoxaparin 60 Mg/0.6 Ml Syringe SUB-Q 25 mg 0600,1800 ROSY Administration Glucagon 1 mg 04/22/24 23:06 Glucagon For Inj 1 Mg Vial IM PRN PRN Hypoglycemia Protocol Glucose 15 gm 04/22/24 23:06 Glucose Oral Gel 15 Gm Of Glucse In 37.5 Gm Tube PO PRN PRN Hypoglycemia Protocol Hydralazine HCl 10 mg 04/25/24 08:00 05/03/24 21:47 Hydralazine Hcl 20 Mg/Ml Vial IV PUSH 10 mg Q4H PRN Administration Blood Pressure - High Dextrose 1,000 mls @ 100 mls/hr 04/22/24 23:06 Dextrose 5% 1,000 Ml IVPB PRN PRN Hypoglycemia Protocol Dextrose 1,000 mls @ 50 mls/hr 04/25/24 10:46 Dextrose 10% IV CONT .Q20H PRN if PN is interrupted Fat Emulsion Intravenous 250 mls @ 20.833 mls/hr 04/25/24 12:00 05/07/24 05:20 Lipids 20% IVPB Infused Q24H ROSY Infusion Multivitamins 1.25 ml/ 1,002.5 mls @ 25 mls/hr 05/06/24 16:30 05/06/24 16:50 Multivitamins 1.25 ml/ Amino IV CONT 25 mls/hr Acids/Dextrose .Q24H ROSY Administration Ipratropium [place] 0.5 mg 05/04/24 09:32 Ipratropium Br 0.02% Inh Soln 0.5 Mg/2.5 Ml Vial INHALATION Q6HRT PRN Shortness Of Breath Levalbuterol HCl 0.63 mg 05/04/24 09:32 Levalbuterol Neb 1.25 Mg/3 Ml INHALATION Q6HRT PRN Shortness Of Breath Lidocaine 1 patch 04/27/24 16:35 05/07/24 09:50 Lidocaine 5% Patch TRANSDERM 1 patch DAILY ROSY Administration Lorazepam 0.5 mg 04/27/24 19:01 05/06/24 21:00 Lorazepam Inj (*Crx) 2 Mg/Ml Vial IV PUSH 0.5 mg HS PRN Administration Sleep Metoclopramide HCl 10 mg 04/28/24 12:00 05/07/24 05:59 Metoclopramide Hcl Inj 10 Mg/2 Ml Vial IV PUSH 10 mg Q6HR ROSY Administration Morphine Sulfate 4 mg 04/22/24 22:02 05/07/24 09:56 Morphine Sulfate (*Crx) 4 Mg/Ml Inj IV PUSH 4 mg Q3H PRN Administration Pain Rated 7-10 Pantoprazole Sodium 40 mg 04/26/24 21:00 05/07/24 09:51 Pantoprazole Sodium Iv 40 Mg Vial IV PUSH 40 mg Q12HR ROSY Administration Sodium Chloride 10 ml 04/23/24 14:00 05/07/24 05:59 Central Line Flush IV PUSH 10 ml Q8HR ROSY Administration Sodium Chloride 20 ml 04/23/24 10:16 05/05/24 06:18 Central Line Flush IV PUSH 20 ml PRN PRN Administration after blood draws Sodium Chloride 10 ml 05/04/24 14:15 Central Line Flush IV PUSH PRN PRN with TPN bag changes Sodium Chloride 20 ml 05/04/24 14:15 05/05/24 06:18 Central Line Flush IV PUSH 20 ml PRN PRN Administration after blood draws Radiology Results: ITS Impressions Chest/Abdomen/Pelvis CTA 04/22/24 18:10 IMPRESSION: Perforated viscus with a large amount of free air and fluid, with mural thickening in the distal stomach and multiple punctate foci of extraluminal air in this area for which site of perforation is suspected. Renal Ultrasound 04/24/24 11:58 IMPRESSION: Simple cyst in the left kidney upper pole. Other appearances are unremarkable. Upper GI Series 04/28/24 16:58 IMPRESSION: 1. Likely locally contained exophytic mucosal leakage of contrast at the gastric antrum at the site of a reported repair ulcer. The irregular margins and absence of more diffuse distribution of the contrast with no contrast extending along the adjacent drainage catheters suggests that this likely remains confined by a reported omental patch. Definitive determination is required would consider repeat contrast contrast injection into the gastrostomy tube with subsequent CT imaging. Lower Extremity CTA 05/02/24 16:36 IMPRESSION: 1. Scattered atherosclerotic plaque in the arteries of the left lower limb as detailed above without a discrete hemodynamic significant stenosis. Runoff below the ankle in the left posterior tibial artery this supplies the foot. Atretic distal peroneal and anterior tibial arteries with intraluminal contrast becoming indiscernible at the level of the ankle and with no appreciable contrast in the dorsalis pedis artery. Abdomen CT 05/03/24 10:41 IMPRESSION: 1. Perforation of the posterior aspect of the gastric antrum with extraluminal leakage of contrast. 2. Small volume of ascites. 3. Small pleural effusions. ADDENDUM: 05/03/24 0266 The extraluminal contrast remains near the site of perforation and may be contained by the omental patch. I discussed these findings with Dr. Moreno. Chest X-Ray 05/04/24 14:03 IMPRESSION: 1. PICC tip in the right atrium. 2. Airspace opacities in left lower lung zone with slight improvement, consistent with atelectasis versus pneumonia. Labs Labs: Laboratory Results - last 24 hr 05/06/24 05/06/24 05/06/24 11:23 11:53 23:33 WBC 8.1 RBC 3.28 L Hgb 9.6 L Hct 30.2 L MCV 92.1 MCH 29.3 MCHC 31.8 L RDW 15.4 H Plt Count 298 MPV 13.3 H Immature Gran % (Auto) 1.7 H Neut % (Auto) 75.9 H Lymph % (Auto) 7.6 L [place] % (Auto) 10.1 H Eos % (Auto) 3.8 Baso % (Auto) 0.9 Lymph # (Auto) 0.62 L [place] # (Auto) 0.8 H Eos # (Auto) 0.3 Baso # (Auto) 0.1 Abs Immat Gran (auto) 0.14 H Absolute Neuts (auto) 6.2 Absolute Nucleated RBC 0.000 Nucleated RBC % 0.0 % Immature Plt Fraction 9.8 Sodium 143 Potassium 3.6 Chloride 113 H Carbon Dioxide 18 L Anion Gap 12 BUN 71 H Creatinine 2.76 H Estim Creat Clear Calc 29 Estimated GFR 23 L Glucose 138 H POC Capillary Glucose 101 136 H Calcium 8.4 Phosphorus 3.8 Magnesium 2.1 Total Bilirubin 1.5 H AST 40 ALT 37 Alkaline Phosphatase 251 H Total Protein 6.0 L Albumin 3.0 L Triglycerides 128 05/07/24 05/07/24 05/07/24 03:45 06:01 09:45 WBC RBC Hgb Hct MCV MCH MCHC RDW Plt Count MPV Immature Gran % (Auto) Neut % (Auto) Lymph % (Auto) [place] % (Auto) Eos % (Auto) Baso % (Auto) Lymph # (Auto) [place] # (Auto) Eos # (Auto) Baso # (Auto) Abs Immat Gran (auto) Absolute Neuts (auto) Absolute Nucleated RBC Nucleated RBC % % Immature Plt Fraction Sodium 138 Potassium 3.8 Chloride 110 H Carbon Dioxide 19 L Anion Gap 9 BUN 74 H Creatinine 2.96 H 3.19 H Estim Creat Clear Calc 27 25 Estimated GFR 21 L 19 L Glucose 425 H POC Capillary Glucose 146 H Calcium 7.8 L Phosphorus 3.9 Magnesium Total Bilirubin AST ALT Alkaline Phosphatase Total Protein Albumin 2.8 L Triglycerides 05/07/24 10:29 WBC RBC Hgb Hct MCV MCH MCHC RDW Plt Count MPV Immature Gran % (Auto) Neut % (Auto) Lymph % (Auto) [place] % (Auto) Eos % (Auto) Baso % (Auto) Lymph # (Auto) [place] # (Auto) Eos # (Auto) Baso # (Auto) Abs Immat Gran (auto) Absolute Neuts (auto) Absolute Nucleated RBC Nucleated RBC % % Immature Plt Fraction Sodium Potassium Chloride Carbon Dioxide Anion Gap BUN Creatinine Estim Creat Clear Calc Estimated GFR Glucose POC Capillary Glucose 131 H Calcium Phosphorus Magnesium Total Bilirubin AST ALT Alkaline Phosphatase Total Protein Albumin Triglycerides Quality VTE Prophylaxis VTE prophylaxis: mechanical ordered and pharmacologic ordered
--- NOTE | 2024-05-07 11:10 | P.PNGS_ITS ---
Progress Note: A&P Assessment and Plan (1) Perforated gastric ulcer: Onset Date: 04/2024 Qualifiers: Gastric ulcer chronicity: acute Qualified Code(s): K25.1 - Acute gastric ulcer with perforation Code(s): K25.5 - Chronic or unspecified gastric ulcer with perforation Status: Acute Assessment and Plan: No sign of abscess or leakage from repair. ELSA drains have small output and clear fluid. Tube feeds advanced to 60 cc an hour yesterday and tolerating well. Probably try liquids tomorrow. (2) Malnutrition following gastrointestinal surgery: Code(s): K91.2 - Postsurgical malabsorption, not elsewhere classified Status: Acute Assessment and Plan: Discontinue TPN today. Tube feeds being tolerated at 60 cc an hour. (3) Acute kidney injury superimposed on stage 3b chronic kidney disease: Code(s): N17.9 - Acute kidney failure, unspecified; N18.32 - Chronic kidney disease, stage 3b Status: Acute Assessment and Plan: Creatinine continues to slowly rise, will increase flushes on tube feeds from 30cc to 120 cc. Subjective Subjective Date/Time Seen: 05/07/24 11:10 Post Op day: #15 Patient reports: no new complaints, still having pain (Had pain medication about an hour earlier and feeling much better now), no bowel movement and fever (Had temp 38.2? about midnight last night) Exam Const: General: cooperative, comfortable, awake and lethargic Orientation/consciousness: No confusion GI: Inspection: incision (All are dry and healing), obesity and other (Left ELSA yellow clear, right ELSA serous) GI Palp: Yes Soft to palpation (Protuberant), Yes Tenderness to palpation present (GI) (Mild diffuse tenderness) and No Guarding due to palpation present (GI) Auscultation: Hypoactive bowel sounds present Urinary Catheter: Urinary Catheter: patent and draining Objective Data Vital Signs Vital Signs: Vital Signs - 24 hr 05/06/24 12:00 05/06/24 14:00 05/06/24 15:18 Temperature 36.4 C L 36.4 C L Pulse Rate 77 75 75 Respiratory Rate 16 16 Blood Pressure 165/66 H Pulse Oximetry 99 99 Oxygen Delivery Fraction of Inspired Oxygen 05/06/24 16:00 05/06/24 19:20 05/06/24 20:00 Temperature 37.9 C H Pulse Rate 77 85 85 Respiratory Rate 16 16 Blood Pressure 184/59 H Pulse Oximetry 95 95 Oxygen Delivery Room Air Fraction of Inspired Oxygen 05/06/24 20:00 05/07/24 00:00 05/07/24 00:47 Temperature 38.2 C H Pulse Rate 83 94 94 Respiratory Rate 16 Blood Pressure 136/57 L Pulse Oximetry 95 Oxygen Delivery Fraction of Inspired Oxygen 05/07/24 01:04 05/07/24 04:00 05/07/24 04:27 Temperature 38.2 C H 36.6 C Pulse Rate 84 79 Respiratory Rate 16 Blood Pressure 104/39 L Pulse Oximetry 96 Oxygen Delivery Fraction of Inspired Oxygen temp 38.2? midnight 1:00 a.m. last night, normal since Intake/Output Intake/Output: Intake & Output 05/04/24 05/05/24 05/06/24 05/07/24 23:59 23:59 23:59 23:59 Intake Total 2525.9 1791.6 1450 1354 Output Total 1670 1450 1624 350 Balance 855.9 341.6 -174 1004 ELSA 1. 15 cc output yesterday ELSA 2. 20 cc output yesterday Meds/Results Medications: Active Medications Generic Name Dose Route Start Last Admin Trade Name Freq PRN Reason Stop Dose Admin Acetaminophen 650 mg 04/26/24 22:19 04/26/24 22:57 Acetaminophen 650 Mg Suppository RECTAL 650 mg Q6H PRN Administration Mild Pain (1-3) or Fever Acetaminophen 650 mg 05/05/24 10:27 05/07/24 01:04 Acetaminophen Elixir 325 Mg/10.15 Ml Udc PO 650 mg Q6H PRN Administration Mild Pain (1-3) or Fever Artificial Tears 1 drop 04/27/24 08:37 Artificial Tears Ophth Soln 15 Ml Bottle EACH EYE QID PRN Dry Eye(s) Atorvastatin Calcium 20 mg 04/30/24 09:00 Atorvastatin 20 Mg Tablet BY MOUTH DAILY ROSY Clonidine HCl 1 patch 05/01/24 09:00 05/01/24 11:36 Clonidine 0.1 Mg/24 Hr Patch TRANSDERM 1 patch WEEKLY ROSY Administration Dextrose 12.5 gm 04/22/24 23:06 Dextrose 50% 25 Gm/50 Ml Syringe IV PUSH PRN PRN Hypoglycemia Protocol Enoxaparin Sodium 100 mg 05/04/24 16:00 05/07/24 05:59 Enoxaparin 100 Mg/Ml Syringe SUB-Q 100 mg 0600,1800 ROSY Administration Enoxaparin Sodium 25 mg 05/04/24 16:00 05/07/24 05:58 Enoxaparin 60 Mg/0.6 Ml Syringe SUB-Q 25 mg 0600,1800 ROSY Administration Glucagon 1 mg 04/22/24 23:06 Glucagon For Inj 1 Mg Vial IM PRN PRN Hypoglycemia Protocol Glucose 15 gm 04/22/24 23:06 Glucose Oral Gel 15 Gm Of Glucse In 37.5 Gm Tube PO PRN PRN Hypoglycemia Protocol Hydralazine HCl 10 mg 04/25/24 08:00 05/03/24 21:47 Hydralazine Hcl 20 Mg/Ml Vial IV PUSH 10 mg Q4H PRN Administration Blood Pressure - High Dextrose 1,000 mls @ 100 mls/hr 04/22/24 23:06 Dextrose 5% 1,000 Ml IVPB PRN PRN Hypoglycemia Protocol Dextrose 1,000 mls @ 50 mls/hr 04/25/24 10:46 Dextrose 10% IV CONT .Q20H PRN if PN is interrupted Multivitamins 1.25 ml/ 1,002.5 mls @ 25 mls/hr 05/06/24 16:30 05/06/24 16:50 Multivitamins 1.25 ml/ Amino IV CONT 25 mls/hr Acids/Dextrose .Q24H ROSY Administration Ipratropium [place] 0.5 mg 05/04/24 09:32 Ipratropium Br 0.02% Inh Soln 0.5 Mg/2.5 Ml Vial INHALATION Q6HRT PRN Shortness Of Breath Levalbuterol HCl 0.63 mg 05/04/24 09:32 Levalbuterol Neb 1.25 Mg/3 Ml INHALATION Q6HRT PRN Shortness Of Breath Lidocaine 1 patch 04/27/24 16:35 05/07/24 09:50 Lidocaine 5% Patch TRANSDERM 1 patch DAILY ROSY Administration Lorazepam 0.5 mg 04/27/24 19:01 05/06/24 21:00 Lorazepam Inj (*Crx) 2 Mg/Ml Vial IV PUSH 0.5 mg HS PRN Administration Sleep Morphine Sulfate 4 mg 04/22/24 22:02 05/07/24 09:56 Morphine Sulfate (*Crx) 4 Mg/Ml Inj IV PUSH 4 mg Q3H PRN Administration Pain Rated 7-10 Pantoprazole Sodium 40 mg 04/26/24 21:00 05/07/24 09:51 Pantoprazole Sodium Iv 40 Mg Vial IV PUSH 40 mg Q12HR ROSY Administration Sodium Chloride 10 ml 04/23/24 14:00 05/07/24 05:59 Central Line Flush IV PUSH 10 ml Q8HR ROSY Administration Sodium Chloride 20 ml 04/23/24 10:16 05/05/24 06:18 Central Line Flush IV PUSH 20 ml PRN PRN Administration after blood draws Sodium Chloride 10 ml 05/04/24 14:15 Central Line Flush IV PUSH PRN PRN with TPN bag changes Sodium Chloride 20 ml 05/04/24 14:15 05/05/24 06:18 Central Line Flush IV PUSH 20 ml PRN PRN Administration after blood draws Radiology Results: ITS Impressions Chest/Abdomen/Pelvis CTA 04/22/24 18:10 IMPRESSION: Perforated viscus with a large amount of free air and fluid, with mural thickening in the distal stomach and multiple punctate foci of extraluminal air in this area for which site of perforation is suspected. Renal Ultrasound 04/24/24 11:58 IMPRESSION: Simple cyst in the left kidney upper pole. Other appearances are unremarkable. Upper GI Series 04/28/24 16:58 IMPRESSION: 1. Likely locally contained exophytic mucosal leakage of contrast at the gastric antrum at the site of a reported repair ulcer. The irregular margins and absence of more diffuse distribution of the contrast with no contrast extending along the adjacent drainage catheters suggests that this likely remains confined by a reported omental patch. Definitive determination is required would consider repeat contrast contrast injection into the gastrostomy tube with subsequent CT imaging. Lower Extremity CTA 05/02/24 16:36 IMPRESSION: 1. Scattered atherosclerotic plaque in the arteries of the left lower limb as detailed above without a discrete hemodynamic significant stenosis. Runoff below the ankle in the left posterior tibial artery this supplies the foot. Atretic distal peroneal and anterior tibial arteries with intraluminal contrast becoming indiscernible at the level of the ankle and with no appreciable contrast in the dorsalis pedis artery. Abdomen CT 05/03/24 10:41 IMPRESSION: 1. Perforation of the posterior aspect of the gastric antrum with extraluminal leakage of contrast. 2. Small volume of ascites. 3. Small pleural effusions. ADDENDUM: 05/03/24 1331 The extraluminal contrast remains near the site of perforation and may be contained by the omental patch. I discussed these findings with Dr. Moreno. Chest X-Ray 05/04/24 14:03 IMPRESSION: 1. PICC tip in the right atrium. 2. Airspace opacities in left lower lung zone with slight improvement, consistent with atelectasis versus pneumonia. Labs Labs: Laboratory Results - last 24 hr 05/06/24 05/06/24 05/06/24 11:23 11:53 23:33 WBC 8.1 RBC 3.28 L Hgb 9.6 L Hct 30.2 L MCV 92.1 MCH 29.3 MCHC 31.8 L RDW 15.4 H Plt Count 298 MPV 13.3 H Immature Gran % (Auto) 1.7 H Neut % (Auto) 75.9 H Lymph % (Auto) 7.6 L [place] % (Auto) 10.1 H Eos % (Auto) 3.8 Baso % (Auto) 0.9 Lymph # (Auto) 0.62 L [place] # (Auto) 0.8 H Eos # (Auto) 0.3 Baso # (Auto) 0.1 Abs Immat Gran (auto) 0.14 H Absolute Neuts (auto) 6.2 Absolute Nucleated RBC 0.000 Nucleated RBC % 0.0 % Immature Plt Fraction 9.8 Sodium 143 Potassium 3.6 Chloride 113 H Carbon Dioxide 18 L Anion Gap 12 BUN 71 H Creatinine 2.76 H Estim Creat Clear Calc 29 Estimated GFR 23 L Glucose 138 H POC Capillary Glucose 101 136 H Calcium 8.4 Phosphorus 3.8 Magnesium 2.1 Total Bilirubin 1.5 H AST 40 ALT 37 Alkaline Phosphatase 251 H Total Protein 6.0 L Albumin 3.0 L Triglycerides 128 05/07/24 05/07/24 05/07/24 03:45 06:01 09:45 WBC RBC Hgb Hct MCV MCH MCHC RDW Plt Count MPV Immature Gran % (Auto) Neut % (Auto) Lymph % (Auto) [place] % (Auto) Eos % (Auto) Baso % (Auto) Lymph # (Auto) [place] # (Auto) Eos # (Auto) Baso # (Auto) Abs Immat Gran (auto) Absolute Neuts (auto) Absolute Nucleated RBC Nucleated RBC % % Immature Plt Fraction Sodium 138 Potassium 3.8 Chloride 110 H Carbon Dioxide 19 L Anion Gap 9 BUN 74 H Creatinine 2.96 H 3.19 H Estim Creat Clear Calc 27 25 Estimated GFR 21 L 19 L Glucose 425 H POC Capillary Glucose 146 H Calcium 7.8 L Phosphorus 3.9 Magnesium Total Bilirubin AST ALT Alkaline Phosphatase Total Protein Albumin 2.8 L Triglycerides 05/07/24 10:29 WBC RBC Hgb Hct MCV MCH MCHC RDW Plt Count MPV Immature Gran % (Auto) Neut % (Auto) Lymph % (Auto) [place] % (Auto) Eos % (Auto) Baso % (Auto) Lymph # (Auto) [place] # (Auto) Eos # (Auto) Baso # (Auto) Abs Immat Gran (auto) Absolute Neuts (auto) Absolute Nucleated RBC Nucleated RBC % % Immature Plt Fraction Sodium Potassium Chloride Carbon Dioxide Anion Gap BUN Creatinine Estim Creat Clear Calc Estimated GFR Glucose POC Capillary Glucose 131 H Calcium Phosphorus Magnesium Total Bilirubin AST ALT Alkaline Phosphatase Total Protein Albumin Triglycerides creatinine continues to slowly increase
--- NOTE | 2024-05-07 11:11 | P.PNNP_ITS ---
Progress Note: A&P Assessment and Plan (1) Acute kidney injury: Code(s): N17.9 - Acute kidney failure, unspecified Status: Acute Assessment and Plan: * continues to fluctuate * suspect multifactorial etiology: * NSAID use * hypotension/hemodynmic instability/shock * sepsis/infection * third spacing * recent contrast exposure (with LE CTA on 05/02) * evaluation to date: * CT shows normal kidneys * renal u/s with simple cyst x 1 o/w unremarkable. * urine electrolytes are prerenal * CPK mildly elevated (but not enough to affect kidneys) * urine eosinophils negative * mild proteinuria * decrease in urine output noted in the last 24 hours.... * consider repeat imaging if renal function worse tomorrow * follow trend of repeat labs and UOP (2) Stage 3b chronic kidney disease: Code(s): N18.32 - Chronic kidney disease, stage 3b Status: Chronic Assessment and Plan: * creatinine ~ 1.5mg/dl in November 2023 * suspect secondary to hypertension, peripheral vascular disease, and possibly chronic NSAID use as well as age-related change (3) Perforated gastric ulcer: Onset Date: 04/2024 Qualifiers: Gastric ulcer chronicity: acute Qualified Code(s): K25.1 - Acute gastric ulcer with perforation Code(s): K25.5 - Chronic or unspecified gastric ulcer with perforation Status: Acute Assessment and Plan: * suspect secondary to NSAID use * s/p exploratory laparotomy and repair of antral gastric ulcer with omental Clarence patch and placement of open gastrostomy tube (on 04/22) * completed course of antibiotics * TPN to be discontinued today * tolerating G-tube feeding at this time * General Surgery following (4) PAD (peripheral artery disease): Code(s): I73.9 - Peripheral vascular disease, unspecified Status: Acute Assessment and Plan: * CTA of left lower extremity noted * suspect acute on chronic issue * on anticoagulation (5) Acute respiratory failure: Code(s): J96.00 - Acute respiratory failure, unspecified whether with hypoxia or hypercapnia Status: Acute Assessment and Plan: * resolved * on room air * follow CXRs and respiratory status (6) Anemia: Code(s): D64.9 - Anemia, unspecified Status: Acute Assessment and Plan: * relatively stable * due to RIC, CKD, and acute illness * follow trend of H/H (7) Malnutrition following gastrointestinal surgery: Code(s): K91.2 - Postsurgical malabsorption, not elsewhere classified Status: Acute Assessment and Plan: * off TPN today * continue tube feeds at this time * eventual goal is to transition to oral intake (8) HTN (hypertension): Code(s): I10 - Essential (primary) hypertension Status: Acute Assessment and Plan: * blood pressure under reasonable control * on PRN hydralazine and clonidine patch * resume oral meds via G-tube as tolerated * follow trend of hemodynamics Will continue to follow. L Subjective Date/time seen: 05/07/24 11:11 Interval history: Follow-up for acute kidney injury/acute renal failure. Noted plans for discontinuation of TPN since tolerating tube feeds reasonably well; however, renal function/creatinine has deteriorated once again and more concerning is decline in urine output in the last 24 hours as well; no apparent distress noted as resting comfortably at the time of my visit. Exam 2 Narrative: General: elderly but WD/WN male in NAD Heart: normal S1 and S2; no rub Lungs: clear anteriorly Abdomen: soft, nontender; some bowel sounds; +G-tube Extremities: no cyanosis or clubbing; trace - 1+ edema Skin: warm and intact Objective Data Vital Signs Vital Signs: Vital Signs Temp Pulse Resp BP Pulse Ox O2 Del Method FiO2 05/07/24 10:53 Room Air 05/07/24 08:00 79 05/07/24 08:00 Room Air 05/07/24 04:27 97.8 F 79 16 104/39 L 96 05/07/24 04:00 84 05/07/24 01:04 100.7 F H 05/07/24 00:47 100.7 F H 94 16 136/57 L 95 05/07/24 00:00 94 05/06/24 20:00 83 05/06/24 20:00 85 16 95 Room Air 28 05/06/24 19:20 100.2 F H 85 16 184/59 H 95 05/06/24 16:00 77 05/06/24 15:18 97.5 F L 75 16 165/66 H 99 05/06/24 14:00 97.5 F L 75 16 99 Intake/Output Intake/Output: Intake & Output 05/04/24 05/05/24 05/06/2429/25 23:59 23:59 23:59 23:59 Intake Total 2525.9 1791.6 1450 1354 Output Total 1670 1450 1624 350 Balance 855.9 341.6 -174 1004 Meds/Results Medications: Active Medications Generic Name Dose Route Start Last Admin Trade Name Freq PRN Reason Stop Dose Admin Acetaminophen 650 mg 04/26/24 22:19 04/26/24 22:57 Acetaminophen 650 Mg Suppository RECTAL 650 mg Q6H PRN Administration Mild Pain (1-3) or Fever Acetaminophen 650 mg 05/05/24 10:27 05/07/24 01:04 Acetaminophen Elixir 325 Mg/10.15 Ml Udc PO 650 mg Q6H PRN Administration Mild Pain (1-3) or Fever Artificial Tears 1 drop 04/27/24 08:37 Artificial Tears Ophth Soln 15 Ml Bottle EACH EYE QID PRN Dry Eye(s) Atorvastatin Calcium 20 mg 04/30/24 09:00 Atorvastatin 20 Mg Tablet BY MOUTH DAILY ROSY Clonidine HCl 1 patch 05/01/24 09:00 05/01/24 11:36 Clonidine 0.1 Mg/24 Hr Patch TRANSDERM 1 patch WEEKLY ROSY Administration Dextrose 12.5 gm 04/22/24 23:06 Dextrose 50% 25 Gm/50 Ml Syringe IV PUSH PRN PRN Hypoglycemia Protocol Enoxaparin Sodium 100 mg 05/04/24 16:00 05/07/24 05:59 Enoxaparin 100 Mg/Ml Syringe SUB-Q 100 mg 0600,1800 ROSY Administration Enoxaparin Sodium 25 mg 05/04/24 16:00 05/07/24 05:58 Enoxaparin 60 Mg/0.6 Ml Syringe SUB-Q 25 mg 0600,1800 ROSY Administration Glucagon 1 mg 04/22/24 23:06 Glucagon For Inj 1 Mg Vial IM PRN PRN Hypoglycemia Protocol Glucose 15 gm 04/22/24 23:06 Glucose Oral Gel 15 Gm Of Glucse In 37.5 Gm Tube PO PRN PRN Hypoglycemia Protocol Hydralazine HCl 10 mg 04/25/24 08:00 05/03/24 21:47 Hydralazine Hcl 20 Mg/Ml Vial IV PUSH 10 mg Q4H PRN Administration Blood Pressure - High Dextrose 1,000 mls @ 100 mls/hr 04/22/24 23:06 Dextrose 5% 1,000 Ml IVPB PRN PRN Hypoglycemia Protocol Dextrose 1,000 mls @ 50 mls/hr 04/25/24 10:46 Dextrose 10% IV CONT .Q20H PRN if PN is interrupted Multivitamins 1.25 ml/ 1,002.5 mls @ 25 mls/hr 05/06/24 16:30 05/06/24 16:50 Multivitamins 1.25 ml/ Amino IV CONT 25 mls/hr Acids/Dextrose .Q24H ROSY Administration Ipratropium [place] 0.5 mg 05/04/24 09:32 Ipratropium Br 0.02% Inh Soln 0.5 Mg/2.5 Ml Vial INHALATION Q6HRT PRN Shortness Of Breath Levalbuterol HCl 0.63 mg 05/04/24 09:32 Levalbuterol Neb 1.25 Mg/3 Ml INHALATION Q6HRT PRN Shortness Of Breath Lidocaine 1 patch 04/27/24 16:35 05/07/24 09:50 Lidocaine 5% Patch TRANSDERM 1 patch DAILY ORSY Administration Lorazepam 0.5 mg 04/27/24 19:01 05/06/24 21:00 Lorazepam Inj (*Crx) 2 Mg/Ml Vial IV PUSH 0.5 mg HS PRN Administration Sleep Morphine Sulfate 4 mg 04/22/24 22:02 05/07/24 09:56 Morphine Sulfate (*Crx) 4 Mg/Ml Inj IV PUSH 4 mg Q3H PRN Administration Pain Rated 7-10 Pantoprazole Sodium 40 mg 04/26/24 21:00 05/07/24 09:51 Pantoprazole Sodium Iv 40 Mg Vial IV PUSH 40 mg Q12HR ROSY Administration Sodium Chloride 10 ml 04/23/24 14:00 05/07/24 05:59 Central Line Flush IV PUSH 10 ml Q8HR ROSY Administration Sodium Chloride 20 ml 04/23/24 10:16 05/05/24 06:18 Central Line Flush IV PUSH 20 ml PRN PRN Administration after blood draws Sodium Chloride 10 ml 05/04/24 14:15 Central Line Flush IV PUSH PRN PRN with TPN bag changes Sodium Chloride 20 ml 05/04/24 14:15 05/05/24 06:18 Central Line Flush IV PUSH 20 ml PRN PRN Administration after blood draws Radiology Results: ITS Impressions Chest/Abdomen/Pelvis CTA 04/22/24 18:10 IMPRESSION: Perforated viscus with a large amount of free air and fluid, with mural thickening in the distal stomach and multiple punctate foci of extraluminal air in this area for which site of perforation is suspected. Renal Ultrasound 04/24/24 11:58 IMPRESSION: Simple cyst in the left kidney upper pole. Other appearances are unremarkable. Upper GI Series 04/28/24 16:58 IMPRESSION: 1. Likely locally contained exophytic mucosal leakage of contrast at the gastric antrum at the site of a reported repair ulcer. The irregular margins and absence of more diffuse distribution of the contrast with no contrast extending along the adjacent drainage catheters suggests that this likely remains confined by a reported omental patch. Definitive determination is required would consider repeat contrast contrast injection into the gastrostomy tube with subsequent CT imaging. Lower Extremity CTA 05/02/24 16:36 IMPRESSION: 1. Scattered atherosclerotic plaque in the arteries of the left lower limb as detailed above without a discrete hemodynamic significant stenosis. Runoff below the ankle in the left posterior tibial artery this supplies the foot. Atretic distal peroneal and anterior tibial arteries with intraluminal contrast becoming indiscernible at the level of the ankle and with no appreciable contrast in the dorsalis pedis artery. Abdomen CT 05/03/24 10:41 IMPRESSION: 1. Perforation of the posterior aspect of the gastric antrum with extraluminal leakage of contrast. 2. Small volume of ascites. 3. Small pleural effusions. ADDENDUM: 05/03/24 1331 The extraluminal contrast remains near the site of perforation and may be contained by the omental patch. I discussed these findings with Dr. Moreno. Chest X-Ray 05/04/24 14:03 IMPRESSION: 1. PICC tip in the right atrium. 2. Airspace opacities in left lower lung zone with slight improvement, consistent with atelectasis versus pneumonia. Labs Labs: Laboratory Tests 05/06/24 11:23 05/07/24 09:45 Calcium 7.8 L Phosphorus 3.9 Albumin 2.8 L
[2024-05-07 12:07] LABS: Glucose Point of Care 130 mg/dl (65-105)
--- NOTE | 2024-05-07 16:57 | PM.EVENT ---
Event Note Event Note Event Note: Nurse (Teresita LAMA) called whether we can decrease the dose Lovenox from 125mg SQ BID to 120 mg SQ BID since pharmacy recommend the decrease in dosage due to CrCl. Agreed to decrease in dosage.
[2024-05-07] MEDS: ENOXAPARIN 120 MG/0.8 ML SYRINGE SUB-Q (17:34)
[2024-05-07 18:50] LABS: Glucose Point of Care 131 mg/dl (65-105)
[2024-05-07] MEDS: LORazepam INJ (*CRX) 2 MG/ML VIAL 0.5 MG IV PUSH (20:31)
[2024-05-07 23:36] LABS: Glucose Point of Care 128 mg/dl (65-105)
[2024-05-08] VITALS (10 sets, daily range): BP systolic 135–155; BP diastolic 53–57; PULSE 82–90; RESP 16–18; TEMP 36.7–37.6; O2SAT 96–100
[2024-05-08] MEDS: MORPHINE SULFATE (*CRX) 4 MG/ML INJ IV PUSH (00:21)
[2024-05-08 06:06] LABS: Glucose Point of Care 131 mg/dl (65-105)
[2024-05-08] MEDS: ENOXAPARIN 120 MG/0.8 ML SYRINGE SUB-Q (06:09)
[2024-05-08] MEDS: CENTRAL LINE FLUSH 20 ML IV PUSH (06:10)
[2024-05-08] MEDS: CENTRAL LINE FLUSH 10 ML IV PUSH ×2 (06:10→20:51)
[2024-05-08] MEDS: ACETAMINOPHEN ELIXIR 325 MG/10.15 ML UDC 650 MG PO ×2 (06:34→12:38)
[2024-05-08 06:47] LABS: Basophils Absolute Auto 0.1 K/mm3 (0.0-0.1); Basophils Percent Auto 0.4 % (0.2-1.2); Eosinophils Absolute Auto 0.2 K/mm3 (0-0.3); Eosinophils Percent Auto 1.4 % (0-4.4); Hematocrit 31.2 % (42.0-52.0); Hemoglobin 9.8 g/dL (14.0-18.0); Immature Granulocyte Absolute 0.19 K/mm3 (0.00-0.031); Immature Granulocyte Percent A 1.5 % (0-0.5); Immature Platelet Fraction Pct 9.5 % (0.9-11.2); Lymphocytes Absolute Auto 0.95 K/mm3 (0.9-3.2); Lymphocytes Percent Auto 7.5 % (18.3-44.2); Mean Corpuscular HGB Conc 31.4 g/dl (32-36); Mean Corpuscular Volume 92.3 fl (80-100); Mean Platelet Volume 13.7 fl (7.4-10.4); Monocytes Percent Auto 7.8 % (2.6-8.5); Neutrophils Absolute Auto 10.4 K/mm3 (1.3-6.7); Neutrophils Percent Auto 81.4 % (45.5-73.1); Platelet Count Result 307 k/mm3 (150-375); Red Blood Count 3.38 M/mm3 (4.6-6.20); Red Cell Distribution Width 15.9 % (11.5-14.5); White Blood Count 12.8 K/mm3 (4.5-10.0)
[2024-05-08 07:05] LABS: Alanine Aminotransferase 35 U/L (6-50); Alkaline Phosphatase 234 U/L (38-126); Anion Gap 11 mmol/L (4-12); Aspartate Amino Transferase 37 U/L (17-59); Bilirubin,Total 1.1 mg/dL (0.2-1.3); Blood Urea Nitrogen 90 mg/dL (9-20); Calcium 8.2 mg/dL (8.4-10.2); Carbon Dioxide 19 mmol/L (22-30); Chloride 112 mmol/L (98-107); Estimated CRCL calculation 20 ml/min; Estimated Glomerular Filt Rate 15; Glucose 145 mg/dL (65-110); Phosphorus 4.2 mg/dL (2.5-4.5); Potassium 4.2 mmol/L (3.4-5.0); Sodium 142 mmol/L (137-145)
[2024-05-08 07:16] LABS: Platelet Estimate Adequate (Adequate)
[2024-05-08 07:17] LABS: Giant Platelets Present; Large Platelets Present; Schistocytes None Seen
[2024-05-08] MEDS: LIDOCAINE 5% PATCH 1 PATCH TRANSDERM (08:42)
[2024-05-08] MEDS: cloNIDine 0.1 MG/24 HR PATCH 1 PATCH TRANSDERM (08:43)
[2024-05-08] MEDS: PANTOPRAZOLE SODIUM IV 40 MG VIAL IV PUSH ×2 (08:43→20:50)
--- NOTE | 2024-05-08 10:56 | P.PNIM_ITS ---
Progress Note: A&P Assessment and Plan (1) Perforated abdominal viscus: Code(s): R19.8 - Other specified symptoms and signs involving the digestive system and abdomen Status: Acute Assessment and Plan: * Septic shock in setting of peritonitis with perforated gastric ulcer: * Shock has resolved * Status post exploratory laparotomy with repair of antral gastric ulcer with omental Clarence patch, open gastrostomy tube * Surgery is following. Surgery wants to hold tube feedings and hold off on starting oral liquids. * Zosyn and Diflucan stopped on 05/05/24. * Passed swallow study. * Await bowel function to return * Continue with PPI. * Pain regimen. * Monitor labs. (2) Pneumonia: Code(s): J18.9 - Pneumonia, unspecified organism Status: Acute Assessment and Plan: * Chest X-ray showed: FINDINGS Left upper extremity PICC line with its tip projecting over the right atrium. The remainder of the cardiomediastinal silhouette is otherwise unremarkable. Interval development of air bronchograms within the right mid to lower lung field, for which an early infiltrate is suspected. The remainder of the lungs are clear. IMPRESSION: Early infiltrate suspected within the right mid to lower lung field, as detailed above. * Patient started on Levofloxacin 750 mg IVPB q 48. * Instructed and patient demonstrated how to use incentive spirometer. * Nebs PRN. (3) Malnutrition following gastrointestinal surgery: Code(s): K91.2 - Postsurgical malabsorption, not elsewhere classified Status: Acute Assessment and Plan: * Passed swallow study. * Surgery wants to hold tube feedings and hold off on starting oral liquids. * Bolus NS 1,000 ml and then NS @ 100ml/hr, per Nephrology. * Surgery following. (4) Acute kidney injury superimposed on stage 3b chronic kidney disease: Code(s): N17.9 - Acute kidney failure, unspecified; N18.32 - Chronic kidney disease, stage 3b Status: Acute Assessment and Plan: * Avoid nephrotoxins * BUN 90, Creatinine 3.98, & GFR 15. * Nephrology following * Renal ultrasound was unremarkable for any acute issues. * Monitor labs. (5) HTN (hypertension): Code(s): I10 - Essential (primary) hypertension Status: Acute Assessment and Plan: * Blood pressure 147/57. * Continue Clonidine patch and Hydralazine PRN. (6) Generalized weakness: Code(s): R53.1 - Weakness Status: Acute Assessment and Plan: * PT/OT (7) Hypokalemia: Code(s): E87.6 - Hypokalemia Status: Acute Assessment and Plan: * Potassium 4.2. * Monitor levels. Plan 78-year-old male with a past medical history of the osteoarthritis on chronic NSAID therapy, hyperlipidemia, hypertension, prior umbilical hernia repair, perforated appendix status post resection 2022 who presented to the ER via EMS with 3 days of sharp radiating abdominal pain. CT demonstrated perforated viscus with large amount of free air and fluid with mural thickening of the distal stomach and multiple punctate foci of extraluminal air with suspected perforated ulcer. Patient was evaluated by the surgeon in the ER was taken directly to the OR. Status post exploratory laparotomy with repair of antral gastric ulcer with omental Clarence patch. Placement of open gastrostomy tube on 04/22/2024. Patient was admitted to the ICU with shock requiring pressor support, intubated. Was eventually extubated on 04/25/2024. He was off pressor support on 04/24/2024. Has been on Zosyn and Diflucan as per surgery, stopped 05/05/24. Subjective Date/time seen: 05/08/24 10:56 Interval history: Patient sitting up in bed. Patient reports pain in back is a 6 , frequent, and aching. Patient denies chest pain, palpitations, headache, dizziness, nausea, or vomiting. Review of Systems Review of Systems: All systems reviewed & are unremarkable except as noted in HPI and below Exam Const: General: no acute distress and uncomfortable Resp: Effort & Inspection: normal respiratory effort Auscultation: diminished lung sounds Cardio: Rate: regular rate Rhythm: regular rhythm Other: Telemetry- SR 89. GI: GI Palp: Yes Soft to palpation Auscultation: normal bowel sounds Urinary Catheter: Urinary Catheter: patent and draining Neuro: Speech: normal speech Extrem: General: pedal edema bilaterally (trace edema) Psych: Mental Status: mental status grossly normal Affect: normal affect Objective Data Vital Signs Vital Signs: Vital Signs - 24 hr 05/07/24 12:00 05/07/24 14:00 05/07/24 16:00 Temperature 99.8 F H Pulse Rate 85 85 85 Respiratory Rate 18 Blood Pressure 118/44 L Pulse Oximetry 94 Oxygen Delivery Fraction of Inspired Oxygen 05/07/24 19:42 05/07/24 20:00 05/07/24 20:00 Temperature 98.5 F Pulse Rate 79 79 77 Respiratory Rate 16 16 Blood Pressure 101/48 L Pulse Oximetry 96 96 Oxygen Delivery Room Air Fraction of Inspired Oxygen 05/08/24 00:00 05/08/24 04:00 05/08/24 04:22 Temperature 98.7 F Pulse Rate 90 85 86 Respiratory Rate 16 Blood Pressure 147/57 H Pulse Oximetry 96 Oxygen Delivery Fraction of Inspired Oxygen 05/08/24 06:34 Temperature 99.7 F H Pulse Rate Respiratory Rate Blood Pressure Pulse Oximetry Oxygen Delivery Fraction of Inspired Oxygen Intake/Output Intake/Output: Intake & Output 05/05/24 05/06/24 05/07/24 05/08/24 23:59 23:59 23:59 23:59 Intake Total 1791.6 1450 2692 669 Output Total 1450 1624 665 250 Balance 341.6 -174 2027 419 Meds/Results Medications: Active Medications Generic Name Dose Route Start Last Admin Trade Name Freq PRN Reason Stop Dose Admin Acetaminophen 650 mg 04/26/24 22:19 04/26/24 22:57 Acetaminophen 650 Mg Suppository RECTAL 650 mg Q6H PRN Administration Mild Pain (1-3) or Fever Acetaminophen 650 mg 05/05/24 10:27 05/08/24 06:34 Acetaminophen Elixir 325 Mg/10.15 Ml Udc PO 650 mg Q6H PRN Administration Mild Pain (1-3) or Fever Artificial Tears 1 drop 04/27/24 08:37 Artificial Tears Ophth Soln 15 Ml Bottle EACH EYE QID PRN Dry Eye(s) Atorvastatin Calcium 20 mg 04/30/24 09:00 Atorvastatin 20 Mg Tablet BY MOUTH DAILY [facility] Clonidine HCl 1 patch 05/01/24 09:00 05/08/24 08:43 Clonidine 0.1 Mg/24 Hr Patch TRANSDERM 1 patch WEEKLY ROSY Administration Dextrose 12.5 gm 04/22/24 23:06 Dextrose 50% 25 Gm/50 Ml Syringe IV PUSH PRN PRN Hypoglycemia Protocol Enoxaparin Sodium 120 mg 05/09/24 06:00 Enoxaparin 120 Mg/0.8 Ml Syringe SUB-Q Q24H ROSY Glucagon 1 mg 04/22/24 23:06 Glucagon For Inj 1 Mg Vial IM PRN PRN Hypoglycemia Protocol Glucose 15 gm 04/22/24 23:06 Glucose Oral Gel 15 Gm Of Glucse In 37.5 Gm Tube PO PRN PRN Hypoglycemia Protocol Hydralazine HCl 10 mg 04/25/24 08:00 05/03/24 21:47 Hydralazine Hcl 20 Mg/Ml Vial IV PUSH 10 mg Q4H PRN Administration Blood Pressure - High Dextrose 1,000 mls @ 100 mls/hr 04/22/24 23:06 Dextrose 5% 1,000 Ml IVPB PRN PRN Hypoglycemia Protocol Dextrose 1,000 mls @ 50 mls/hr 04/25/24 10:46 Dextrose 10% IV CONT .Q20H PRN if PN is interrupted Sodium Chloride 1,000 mls @ 100 mls/hr 05/08/24 08:55 Normal Saline Iv IV CONT .Q10H ROSY Levofloxacin/Dextrose 750 mg in 150 mls @ 100 mls/hr 05/08/24 10:35 Levaquin 750 Mg/D5w 150 Ml IVPB Q48HR ROSY Ipratropium [place] 0.5 mg 05/04/24 09:32 Ipratropium Br 0.02% Inh Soln 0.5 Mg/2.5 Ml Vial INHALATION Q6HRT PRN Shortness Of Breath Levalbuterol HCl 0.63 mg 05/04/24 09:32 Levalbuterol Neb 1.25 Mg/3 Ml INHALATION Q6HRT PRN Shortness Of Breath Lidocaine 1 patch 04/27/24 16:35 05/08/24 08:42 Lidocaine 5% Patch TRANSDERM 1 patch DAILY ROSY Administration Lorazepam 0.5 mg 04/27/24 19:01 05/07/24 20:31 Lorazepam Inj (*Crx) 2 Mg/Ml Vial IV PUSH 0.5 mg HS PRN Administration Sleep Morphine Sulfate 4 mg 04/22/24 22:02 05/08/24 00:21 Morphine Sulfate (*Crx) 4 Mg/Ml Inj IV PUSH 4 mg Q3H PRN Administration Pain Rated 7-10 Pantoprazole Sodium 40 mg 04/26/24 21:00 05/08/24 08:43 Pantoprazole Sodium Iv 40 Mg Vial IV PUSH 40 mg Q12HR ROSY Administration Sodium Chloride 10 ml 04/23/24 14:00 05/08/24 06:10 Central Line Flush IV PUSH 10 ml Q8HR ROSY Administration Sodium Chloride 20 ml 04/23/24 10:16 05/08/24 06:10 Central Line Flush IV PUSH 20 ml PRN PRN Administration after blood draws Sodium Chloride 10 ml 05/04/24 14:15 Central Line Flush IV PUSH PRN PRN with TPN bag changes Sodium Chloride 20 ml 05/04/24 14:15 05/05/24 06:18 Central Line Flush IV PUSH 20 ml PRN PRN Administration after blood draws Radiology Results: ITS Impressions Chest/Abdomen/Pelvis CTA 04/22/24 18:10 IMPRESSION: Perforated viscus with a large amount of free air and fluid, with mural thickening in the distal stomach and multiple punctate foci of extraluminal air in this area for which site of perforation is suspected. Renal Ultrasound 04/24/24 11:58 IMPRESSION: Simple cyst in the left kidney upper pole. Other appearances are unremarkable. Upper GI Series 04/28/24 16:58 IMPRESSION: 1. Likely locally contained exophytic mucosal leakage of contrast at the gastric antrum at the site of a reported repair ulcer. The irregular margins and absence of more diffuse distribution of the contrast with no contrast extending along the adjacent drainage catheters suggests that this likely remains confined by a reported omental patch. Definitive determination is required would consider repeat contrast contrast injection into the gastrostomy tube with subsequent CT imaging. Lower Extremity CTA 05/02/24 16:36 IMPRESSION: 1. Scattered atherosclerotic plaque in the arteries of the left lower limb as detailed above without a discrete hemodynamic significant stenosis. Runoff below the ankle in the left posterior tibial artery this supplies the foot. Atretic distal peroneal and anterior tibial arteries with intraluminal contrast becoming indiscernible at the level of the ankle and with no appreciable contrast in the dorsalis pedis artery. Abdomen CT 05/03/24 10:41 IMPRESSION: 1. Perforation of the posterior aspect of the gastric antrum with extraluminal leakage of contrast. 2. Small volume of ascites. 3. Small pleural effusions. ADDENDUM: 05/03/24 1331 The extraluminal contrast remains near the site of perforation and may be contained by the omental patch. I discussed these findings with Dr. Moreno. Chest X-Ray 03/30/25 08:14 IMPRESSION: Early infiltrate suspected within the right mid to lower lung field, as detailed above. Labs Labs: Laboratory Results - last 24 hr 05/07/24 05/07/24 05/07/24 12:03 18:47 23:31 WBC RBC Hgb Hct MCV MCH MCHC RDW Plt Count MPV Immature Gran % (Auto) Neut % (Auto) Lymph % (Auto) [place] % (Auto) Eos % (Auto) Baso % (Auto) Lymph # (Auto) [place] # (Auto) Eos # (Auto) Baso # (Auto) Abs Immat Gran (auto) Absolute Neuts (auto) Absolute Nucleated RBC Band Neutrophils % Nucleated RBC % Platelet Estimate Large Platelets Giant Platelets % Immature Plt Fraction Schistocytes Sodium Potassium Chloride Carbon Dioxide Anion Gap BUN Creatinine Estim Creat Clear Calc Estimated GFR Glucose POC Capillary Glucose 130 H 131 H 128 H Calcium Phosphorus Total Bilirubin AST ALT Alkaline Phosphatase Total Protein Albumin 05/08/24 05/08/24 06:02 06:09 WBC 12.8 H RBC 3.38 L Hgb 9.8 L Hct 31.2 L MCV 92.3 MCH 29.0 MCHC 31.4 L RDW 15.9 H Plt Count 307 MPV 13.7 H Immature Gran % (Auto) 1.5 H Neut % (Auto) 81.4 H Lymph % (Auto) 7.5 L [place] % (Auto) 7.8 Eos % (Auto) 1.4 Baso % (Auto) 0.4 Lymph # (Auto) 0.95 [place] # (Auto) 1.0 H Eos # (Auto) 0.2 Baso # (Auto) 0.1 Abs Immat Gran (auto) 0.19 H Absolute Neuts (auto) 10.4 H Absolute Nucleated RBC 0.000 Band Neutrophils % Not Reportable Nucleated RBC % 0.0 Platelet Estimate Adequate Large Platelets Present Giant Platelets Present % Immature Plt Fraction 9.5 Schistocytes None seen Sodium 142 Potassium 4.2 Chloride 112 H Carbon Dioxide 19 L Anion Gap 11 BUN 90 H D Creatinine 3.98 H Estim Creat Clear Calc 20 Estimated GFR 15 L Glucose 145 H POC Capillary Glucose 131 H Calcium 8.2 L Phosphorus 4.2 Total Bilirubin 1.1 AST 37 ALT 35 Alkaline Phosphatase 234 H Total Protein 6.0 L Albumin 3.0 L Quality VTE Prophylaxis VTE prophylaxis: mechanical ordered and pharmacologic ordered
[2024-05-08 11:00] LABS: Add Urine Microscopic? YES; Appearance Urine Turbid (Clear); Bacteria Urine None Seen /hpf; Bilirubin Urine 1+ (Negative); Blood Urine 2+ (Negative); Color Urine Dark Yellow (Yellow); Glucose Urine UA Negative (Negative); Granular Casts Urine Present /lpf; Ketones Urine Negative (Negative); Leukocyte Esterase Ur 2+ LEU/UL (Negative); Nitrate Urine Negative (Negative); Non Pathogenic Casts >20; Protein Urine 1+ mg/dL (Negative); Specific Grav Ur 1.018 (1.001-1.035); Squamous Epithelial Cell Urine Many /hpf (Few); WBC Urine 21-50 /hpf (0-3)
[2024-05-08 11:01] LABS: Amorphous Sediment Urine Heavy
[2024-05-08 11:08] LABS: Sodium Urine Random 35 meq/L
[2024-05-08 11:09] LABS: Creatinine Urine 151.6 mg/dL; Total Protein Urine Random 24 mg/dL; Ur Ttl Prot Creatinine Ratio 0.16 mg/mg (0-0.20); Urea Random Urine 582 MG/DL
[2024-05-08 11:17] LABS: Eosinophil Urine 3 % (None Seen); Urine Eos QC 2nd Tech Confirmed
[2024-05-08] MEDS: levoFLOXacin 750 MG/D5W 150 ML 750 MG/150 ML BAG 100 MG IVPB (11:25)
[2024-05-08] MEDS: SODIUM CHLORIDE 0.9% IV 1,000 ML 999 ML IV CONT (11:26)
[2024-05-08] MEDS: SODIUM CHLORIDE 0.9% IV 1,000 ML 100 ML IV CONT ×2 (11:27→21:56)
[2024-05-08 12:02] LABS: Glucose Point of Care 126 mg/dl (65-105)
--- NOTE | 2024-05-08 12:10 | P.PNNP_ITS ---
Progress Note: A&P Assessment and Plan (1) Acute kidney injury: Code(s): N17.9 - Acute kidney failure, unspecified Status: Acute Assessment and Plan: * deterioration noted in the last few days * had improved to baseline (1.5mg/dl) on 04/30) * suspect initial insult to be of multifactorial etiology: * NSAID use * hypotension/hemodynmic instability/shock * sepsis/infection * third spacing * evaluation to date: * CT shows normal kidneys * renal u/s with simple cyst x 1 o/w unremarkable. * urine electrolytes are prerenal * CPK mildly elevated (but not enough to affect kidneys) * urine eosinophils negative * mild proteinuria * another acute insult noted by recent labs (since 05/02): * possible due to pre-renal factors, infection (UTI +/- pneumonia versus gastric leak) * recent imaging CT of C/A/P on 05/08 noted * repeat urine studies (on 05/08) suggestive of UTI and prerenal azotemia * agree with trial of IVFs * monitor respiratory status given noted bilateral pleural effusion on recent imaging * follow trend of repeat labs and UOP (2) Stage 3b chronic kidney disease: Code(s): N18.32 - Chronic kidney disease, stage 3b Status: Chronic Assessment and Plan: * creatinine ~ 1.5mg/dl in November 2023 * suspect secondary to hypertension, peripheral vascular disease, and possibly chronic NSAID use as well as age-related change (3) Perforated gastric ulcer: Onset Date: 04/2024 Qualifiers: Gastric ulcer chronicity: acute Qualified Code(s): K25.1 - Acute gastric ulcer with perforation Code(s): K25.5 - Chronic or unspecified gastric ulcer with perforation Status: Acute Assessment and Plan: * suspect secondary to NSAID use * s/p exploratory laparotomy and repair of antral gastric ulcer with omental [place] patch and placement of open gastrostomy tube (on 04/22) * completed course of antibiotics * TPN to be discontinued * was tolerating G-tube feeding but placed on hold due to concern for possible gastric leak * General Surgery following (4) PAD (peripheral artery disease): Code(s): I73.9 - Peripheral vascular disease, unspecified Status: Acute Assessment and Plan: * CTA of left lower extremity noted * suspect acute on chronic issue * on anticoagulation (5) Acute respiratory failure: Code(s): J96.00 - Acute respiratory failure, unspecified whether with hypoxia or hypercapnia Status: Acute Assessment and Plan: * resolved * on room air * follow imaging and respiratory status * noted pleural effusion on CT of chest (6) Anemia: Code(s): D64.9 - Anemia, unspecified Status: Acute Assessment and Plan: * relatively stable * due to RIC, CKD, and acute illness * follow trend of H/H (7) Malnutrition following gastrointestinal surgery: Code(s): K91.2 - Postsurgical malabsorption, not elsewhere classified Status: Acute Assessment and Plan: * off TPN * tube feeds on hold given concerns for gastric leak based on CT imaging on 05/08 * eventual goal is to transition to oral intake (8) HTN (hypertension): Code(s): I10 - Essential (primary) hypertension Status: Acute Assessment and Plan: * blood pressure under reasonable control * on PRN hydralazine and clonidine patch * resume oral meds via G-tube when able * follow trend of hemodynamics Will continue to follow. L Subjective Date/time seen: 05/08/24 12:10 Interval history: Follow-up for acute kidney injury/acute renal failure. Renal function/creatinine continues to deteriorate by trend of labs over the last 48 hours in association with decline in urine output as well; stable hemodynamics noted but low grade fevers noted in the last 24 hours; repeat CT imaging done earlier today noted/reviewed; antibiotics initiated given concerns for possible pneumonia and UTI (based on imaging and urine testing); major complaint remains that of back pain which seems somewhat better with heating pad at the time of my visit as well as dry mouth. Exam 2 Narrative: General: elderly but WD/WN male in NAD Heart: normal S1 and S2; no rub Lungs: clear anteriorly; decreased at bases Abdomen: soft, nontender; some bowel sounds; +G-tube Extremities: no cyanosis or clubbing; trace - 1+ edema Skin: no rash Objective Data Vital Signs Vital Signs: Vital Signs Temp Pulse Resp BP Pulse Ox O2 Del Method FiO2 05/08/24 12:08 98.4 F 87 18 135/53 L 97 05/08/24 06:34 99.7 F H 05/08/24 04:22 98.7 F 86 16 147/57 H 96 05/08/24 04:00 85 05/08/24 00:00 90 05/07/24 20:00 77 05/07/24 20:00 79 16 96 Room Air 28 05/07/24 19:42 98.5 F 79 16 101/48 L 96 05/07/24 16:00 85 05/07/24 14:00 99.8 F H 85 18 118/44 L 94 Intake/Output Intake/Output: Intake & Output 05/05/24 05/06/24 05/07/24 05/08/24 23:59 23:59 23:59 23:59 Intake Total 1791.6 1450 2692 669 Output Total 1450 1624 665 250 Balance 341.6 -174 7 419 Meds/Results Medications: Active Medications Generic Name Dose Route Start Last Admin Trade Name Freq PRN Reason Stop Dose Admin Acetaminophen 650 mg 04/26/24 22:19 04/26/24 22:57 Acetaminophen 650 Mg Suppository RECTAL 650 mg Q6H PRN Administration Mild Pain (1-3) or Fever Acetaminophen 650 mg 05/05/24 10:27 05/08/24 12:38 Acetaminophen Elixir 325 Mg/10.15 Ml Udc PO 650 mg Q6H PRN Administration Mild Pain (1-3) or Fever Artificial Tears 1 drop 04/27/24 08:37 Artificial Tears Ophth Soln 15 Ml Bottle EACH EYE QID PRN Dry Eye(s) Atorvastatin Calcium 20 mg 04/30/24 09:00 Atorvastatin 20 Mg Tablet BY MOUTH DAILY ROSY Clonidine HCl 1 patch 05/01/24 09:00 05/08/24 08:43 Clonidine 0.1 Mg/24 Hr Patch TRANSDERM 1 patch WEEKLY ROSY Administration Dextrose 12.5 gm 04/22/24 23:06 Dextrose 50% 25 Gm/50 Ml Syringe IV PUSH PRN PRN Hypoglycemia Protocol Enoxaparin Sodium 120 mg 05/09/24 06:00 Enoxaparin 120 Mg/0.8 Ml Syringe SUB-Q Q24H ROSY Glucagon 1 mg 04/22/24 23:06 Glucagon For Inj 1 Mg Vial IM PRN PRN Hypoglycemia Protocol Glucose 15 gm 04/22/24 23:06 Glucose Oral Gel 15 Gm Of Glucse In 37.5 Gm Tube PO PRN PRN Hypoglycemia Protocol Hydralazine HCl 10 mg 04/25/24 08:00 05/03/24 21:47 Hydralazine Hcl 20 Mg/Ml Vial IV PUSH 10 mg Q4H PRN Administration Blood Pressure - High Dextrose 1,000 mls @ 100 mls/hr 04/22/24 23:06 Dextrose 5% 1,000 Ml IVPB PRN PRN Hypoglycemia Protocol Dextrose 1,000 mls @ 50 mls/hr 04/25/24 10:46 Dextrose 10% IV CONT .Q20H PRN if PN is interrupted Sodium Chloride 1,000 mls @ 100 mls/hr 05/08/24 08:55 05/08/24 11:27 Normal Saline Iv IV CONT 100 mls/hr .Q10H ROSY Administration Levofloxacin/Dextrose 750 mg in 150 mls @ 100 mls/hr 05/08/24 10:35 05/08/24 11:25 Levaquin 750 Mg/D5w 150 Ml IVPB 100 mls/hr Q48HR ROSY Administration Ipratropium [place] 0.5 mg 05/04/24 09:32 Ipratropium Br 0.02% Inh Soln 0.5 Mg/2.5 Ml Vial INHALATION Q6HRT PRN Shortness Of Breath Levalbuterol HCl 0.63 mg 05/04/24 09:32 Levalbuterol Neb 1.25 Mg/3 Ml INHALATION Q6HRT PRN Shortness Of Breath Lidocaine 1 patch 04/27/24 16:35 05/08/24 08:42 Lidocaine 5% Patch TRANSDERM 1 patch DAILY ROSY Administration Lorazepam 0.5 mg 04/27/24 19:01 05/07/24 20:31 Lorazepam Inj (*Crx) 2 Mg/Ml Vial IV PUSH 0.5 mg HS PRN Administration Sleep Morphine Sulfate 4 mg 04/22/24 22:02 05/08/24 00:21 Morphine Sulfate (*Crx) 4 Mg/Ml Inj IV PUSH 4 mg Q3H PRN Administration Pain Rated 7-10 Pantoprazole Sodium 40 mg 04/26/24 21:00 05/08/24 08:43 Pantoprazole Sodium Iv 40 Mg Vial IV PUSH 40 mg Q12HR ROSY Administration Sodium Chloride 10 ml 04/23/24 14:00 05/08/24 06:10 Central Line Flush IV PUSH 10 ml Q8HR ROSY Administration Sodium Chloride 20 ml 04/23/24 10:16 05/08/24 06:10 Central Line Flush IV PUSH 20 ml PRN PRN Administration after blood draws Sodium Chloride 10 ml 05/04/24 14:15 Central Line Flush IV PUSH PRN PRN with TPN bag changes Sodium Chloride 20 ml 05/04/24 14:15 05/05/24 06:18 Central Line Flush IV PUSH 20 ml PRN PRN Administration after blood draws Radiology Results: ITS Impressions Chest/Abdomen/Pelvis CTA 04/22/24 18:10 IMPRESSION: Perforated viscus with a large amount of free air and fluid, with mural thickening in the distal stomach and multiple punctate foci of extraluminal air in this area for which site of perforation is suspected. Renal Ultrasound 04/24/24 11:58 IMPRESSION: Simple cyst in the left kidney upper pole. Other appearances are unremarkable. Upper GI Series 04/28/24 16:58 IMPRESSION: 1. Likely locally contained exophytic mucosal leakage of contrast at the gastric antrum at the site of a reported repair ulcer. The irregular margins and absence of more diffuse distribution of the contrast with no contrast extending along the adjacent drainage catheters suggests that this likely remains confined by a reported omental patch. Definitive determination is required would consider repeat contrast contrast injection into the gastrostomy tube with subsequent CT imaging. Lower Extremity CTA 05/02/24 16:36 IMPRESSION: 1. Scattered atherosclerotic plaque in the arteries of the left lower limb as detailed above without a discrete hemodynamic significant stenosis. Runoff below the ankle in the left posterior tibial artery this supplies the foot. Atretic distal peroneal and anterior tibial arteries with intraluminal contrast becoming indiscernible at the level of the ankle and with no appreciable contrast in the dorsalis pedis artery. Abdomen CT 05/03/24 10:41 IMPRESSION: 1. Perforation of the posterior aspect of the gastric antrum with extraluminal leakage of contrast. 2. Small volume of ascites. 3. Small pleural effusions. ADDENDUM: 05/03/24 1331 The extraluminal contrast remains near the site of perforation and may be contained by the omental patch. I discussed these findings with Dr. Moreno. Chest X-Ray 05/08/24 08:14 IMPRESSION: Early infiltrate suspected within the right mid to lower lung field, as detailed above. Chest/Abdomen/Pelvis CT 05/08/24 10:43 IMPRESSION: Findings suggesting air and possible fluid extending from the lumen of the antrum of the stomach, with a small anterior collection, as detailed above. Repeat evaluation with Gastrografin via the gastrostomy would provide additional information. Labs Labs: Laboratory Tests 05/08/24 06:09 05/08/24 06:09 Calcium 8.2 L Phosphorus 4.2 Total Bilirubin 1.1 AST 37 ALT 35 Alkaline Phosphatase 234 H Total Protein 6.0 L Albumin 3.0 L
--- NOTE | 2024-05-08 12:40 | PM.PNGS ---
Progress Note: A&P Assessment and Plan (1) Perforated gastric ulcer: Onset Date: 04/2024 Qualifiers: Gastric ulcer chronicity: acute Qualified Code(s): K25.1 - Acute gastric ulcer with perforation Code(s): K25.5 - Chronic or unspecified gastric ulcer with perforation Status: Acute Assessment and Plan: Patient had low-grade fever last 2 days and today white blood cell count up to 12,800 from 8,100 2 days ago. Chest x-ray suggested an infiltrate. CT scan without contrast chest, abdomen, and pelvis is concerning for small gastric leak not drained by ELSA drains. Patient clinically does not appear any different and has same abdominal exam as before with normal and active bowel sounds. Will get Gastrografin G-tube injection with water-soluble contrast to better evaluate. Hold tube feedings for now. Also hold off on starting oral liquids today too. (2) Malnutrition following gastrointestinal surgery: Code(s): K91.2 - Postsurgical malabsorption, not elsewhere classified Status: Acute Assessment and Plan: Holding tube feeds for now until water-soluble contrast G-tube injection has been performed and read. (3) Acute kidney injury superimposed on stage 3b chronic kidney disease: Code(s): N17.9 - Acute kidney failure, unspecified; N18.32 - Chronic kidney disease, stage 3b Status: Acute Assessment and Plan: Creatinine up to nearly 4 and BUN up to 90. Probably due to hypovolemia. Will bolus with 1000 cc of saline and start saline at 100 per hour. Ask Nephrology to evaluate. Subjective Subjective Date/Time Seen: 05/08/24 12:40 Patient reports: no new complaints, pain is less (Pain is in his lower back, has had pain here before admission but worse since), bowel movement and fever (Low-grade temp 37.7? yesterday, was 38.2 day before) Exam Const: General: comfortable, alert and awake Orientation/consciousness: No confusion GI: Inspection: incision (Dry and healing well, ELSA drains clear with small amount) and obesity GI Palp: Yes Soft to palpation (Protuberant), Yes Tenderness to palpation present (GI) (Mild incisional) and No Rebound tenderness present Auscultation: normal bowel sounds Urinary Catheter: Urinary Catheter: patent and draining Objective Data Vital Signs Vital Signs: Vital Signs - 24 hr 05/07/24 14:00 05/07/24 16:00 05/07/24 19:42 Temperature 37.7 C H 36.9 C Pulse Rate 85 85 79 Respiratory Rate 18 16 Blood Pressure 118/44 L 101/48 L Pulse Oximetry 94 96 Oxygen Delivery Fraction of Inspired Oxygen 05/07/24 20:00 05/07/24 20:00 05/08/24 00:00 Temperature Pulse Rate 79 77 90 Respiratory Rate 16 Blood Pressure Pulse Oximetry 96 Oxygen Delivery Room Air Fraction of Inspired Oxygen 05/08/24 04:00 05/08/24 04:22 05/08/24 06:34 Temperature 37.1 C 37.6 C H Pulse Rate 85 86 Respiratory Rate 16 Blood Pressure 147/57 H Pulse Oximetry 96 Oxygen Delivery Fraction of Inspired Oxygen 05/08/24 12:28 Temperature 36.9 C Pulse Rate 87 Respiratory Rate 18 Blood Pressure 135/53 L Pulse Oximetry 97 Oxygen Delivery Fraction of Inspired Oxygen low-grade fever as noted Intake/Output Intake/Output: Intake & Output 05/05/24 05/06/24 05/07/24 05/08/24 23:59 23:59 23:59 23:59 Intake Total 1791.6 1450 2692 669 Output Total 1450 1624 665 250 Balance 341.6 -174 2027 419 Meds/Results Medications: Active Medications Generic Name Dose Route Start Last Admin Trade Name Freq PRN Reason Stop Dose Admin Acetaminophen 650 mg 04/26/24 22:19 04/26/24 22:57 Acetaminophen 650 Mg Suppository RECTAL 650 mg Q6H PRN Administration Mild Pain (1-3) or Fever Acetaminophen 650 mg 05/05/24 10:27 05/08/24 06:34 Acetaminophen Elixir 325 Mg/10.15 Ml Udc PO 650 mg Q6H PRN Administration Mild Pain (1-3) or Fever Artificial Tears 1 drop 04/27/24 08:37 Artificial Tears Ophth Soln 15 Ml Bottle EACH EYE QID PRN Dry Eye(s) Atorvastatin Calcium 20 mg 04/30/24 09:00 Atorvastatin 20 Mg Tablet BY MOUTH DAILY ROSY Clonidine HCl 1 patch 05/01/24 09:00 05/08/24 08:43 Clonidine 0.1 Mg/24 Hr Patch TRANSDERM 1 patch WEEKLY ROSY Administration Dextrose 12.5 gm 04/22/24 23:06 Dextrose 50% 25 Gm/50 Ml Syringe IV PUSH PRN PRN Hypoglycemia Protocol Enoxaparin Sodium 120 mg 05/09/24 06:00 Enoxaparin 120 Mg/0.8 Ml Syringe SUB-Q Q24H ROSY Glucagon 1 mg 04/22/24 23:06 Glucagon For Inj 1 Mg Vial IM PRN PRN Hypoglycemia Protocol Glucose 15 gm 04/22/24 23:06 Glucose Oral Gel 15 Gm Of Glucse In 37.5 Gm Tube PO PRN PRN Hypoglycemia Protocol Hydralazine HCl 10 mg 04/25/24 08:00 05/03/24 21:47 Hydralazine Hcl 20 Mg/Ml Vial IV PUSH 10 mg Q4H PRN Administration Blood Pressure - High Dextrose 1,000 mls @ 100 mls/hr 04/22/24 23:06 Dextrose 5% 1,000 Ml IVPB PRN PRN Hypoglycemia Protocol Dextrose 1,000 mls @ 50 mls/hr 04/25/24 10:46 Dextrose 10% IV CONT .Q20H PRN if PN is interrupted Sodium Chloride 1,000 mls @ 100 mls/hr 05/08/24 08:55 05/08/24 11:27 Normal Saline Iv IV CONT 100 mls/hr .Q10H ROSY Administration Levofloxacin/Dextrose 750 mg in 150 mls @ 100 mls/hr 05/08/24 10:35 05/08/24 11:25 Levaquin 750 Mg/D5w 150 Ml IVPB 100 mls/hr Q48HR ROSY Administration Ipratropium [place] 0.5 mg 05/04/24 09:32 Ipratropium Br 0.02% Inh Soln 0.5 Mg/2.5 Ml Vial INHALATION Q6HRT PRN Shortness Of Breath Levalbuterol HCl 0.63 mg 05/04/24 09:32 Levalbuterol Neb 1.25 Mg/3 Ml INHALATION Q6HRT PRN Shortness Of Breath Lidocaine 1 patch 04/27/24 16:35 05/08/24 08:42 Lidocaine 5% Patch TRANSDERM 1 patch DAILY ROSY Administration Lorazepam 0.5 mg 04/27/24 19:01 05/07/24 20:31 Lorazepam Inj (*Crx) 2 Mg/Ml Vial IV PUSH 0.5 mg HS PRN Administration Sleep Morphine Sulfate 4 mg 04/22/24 22:02 05/08/24 00:21 Morphine Sulfate (*Crx) 4 Mg/Ml Inj IV PUSH 4 mg Q3H PRN Administration Pain Rated 7-10 Pantoprazole Sodium 40 mg 04/26/24 21:00 05/08/24 08:43 Pantoprazole Sodium Iv 40 Mg Vial IV PUSH 40 mg Q12HR ROSY Administration Sodium Chloride 10 ml 04/23/24 14:00 05/08/24 06:10 Central Line Flush IV PUSH 10 ml Q8HR ROSY Administration Sodium Chloride 20 ml 04/23/24 10:16 05/08/24 06:10 Central Line Flush IV PUSH 20 ml PRN PRN Administration after blood draws Sodium Chloride 10 ml 05/04/24 14:15 Central Line Flush IV PUSH PRN PRN with TPN bag changes Sodium Chloride 20 ml 05/04/24 14:15 05/05/24 06:18 Central Line Flush IV PUSH 20 ml PRN PRN Administration after blood draws Radiology Results: ITS Impressions Chest/Abdomen/Pelvis CTA 04/22/24 18:10 IMPRESSION: Perforated viscus with a large amount of free air and fluid, with mural thickening in the distal stomach and multiple punctate foci of extraluminal air in this area for which site of perforation is suspected. Renal Ultrasound 04/24/24 11:58 IMPRESSION: Simple cyst in the left kidney upper pole. Other appearances are unremarkable. Upper GI Series 04/28/24 16:58 IMPRESSION: 1. Likely locally contained exophytic mucosal leakage of contrast at the gastric antrum at the site of a reported repair ulcer. The irregular margins and absence of more diffuse distribution of the contrast with no contrast extending along the adjacent drainage catheters suggests that this likely remains confined by a reported omental patch. Definitive determination is required would consider repeat contrast contrast injection into the gastrostomy tube with subsequent CT imaging. Lower Extremity CTA 05/02/24 16:36 IMPRESSION: 1. Scattered atherosclerotic plaque in the arteries of the left lower limb as detailed above without a discrete hemodynamic significant stenosis. Runoff below the ankle in the left posterior tibial artery this supplies the foot. Atretic distal peroneal and anterior tibial arteries with intraluminal contrast becoming indiscernible at the level of the ankle and with no appreciable contrast in the dorsalis pedis artery. Abdomen CT 05/03/24 10:41 IMPRESSION: 1. Perforation of the posterior aspect of the gastric antrum with extraluminal leakage of contrast. 2. Small volume of ascites. 3. Small pleural effusions. ADDENDUM: 05/03/24 1331 The extraluminal contrast remains near the site of perforation and may be contained by the omental patch. I discussed these findings with Dr. Moreno. Chest X-Ray 05/08/24 08:14 IMPRESSION: Early infiltrate suspected within the right mid to lower lung field, as detailed above. Chest/Abdomen/Pelvis CT 05/08/24 10:43 IMPRESSION: Findings suggesting air and possible fluid extending from the lumen of the antrum of the stomach, with a small anterior collection, as detailed above. Repeat evaluation with Gastrografin via the gastrostomy would provide additional information. Labs Labs: Laboratory Results - last 24 hr 05/07/24 05/07/24 05/08/24 18:47 23:31 06:02 WBC RBC Hgb Hct MCV MCH MCHC RDW Plt Count MPV Immature Gran % (Auto) Neut % (Auto) Lymph % (Auto) [place] % (Auto) Eos % (Auto) Baso % (Auto) Lymph # (Auto) [place] # (Auto) Eos # (Auto) Baso # (Auto) Abs Immat Gran (auto) Absolute Neuts (auto) Absolute Nucleated RBC Band Neutrophils % Nucleated RBC % Platelet Estimate Large Platelets Giant Platelets % Immature Plt Fraction Schistocytes Sodium Potassium Chloride Carbon Dioxide Anion Gap BUN Creatinine Estim Creat Clear Calc Estimated GFR Glucose POC Capillary Glucose 131 H 128 H 131 H Calcium Phosphorus Total Bilirubin AST ALT Alkaline Phosphatase Total Protein Albumin Urine Color Urine Appearance Urine pH Ur Specific [place] Urine Protein Urine Glucose (UA) Urine Ketones Ur Blood (Man) Urine Nitrate Urine Bilirubin Urine Urobilinogen Leukocyte Esterase Rfl Urine RBC Urine WBC Ur Squamous Epith Cells Amorphous Sediment Urine Bacteria Urine Casts Granular Casts Urine Eosinophils U Random Total Protein Ur Random Sodium Ur Random Urea Urine Creatinine Protein/Creat Ratio 2 05/08/24 05/08/24 05/08/24 06:09 10:38 10:42 WBC 12.8 H RBC 3.38 L Hgb 9.8 L Hct 31.2 L MCV 92.3 MCH 29.0 MCHC 31.4 L RDW 15.9 H Plt Count 307 MPV 13.7 H Immature Gran % (Auto) 1.5 H Neut % (Auto) 81.4 H Lymph % (Auto) 7.[address] [place] % (Auto) 7.8 Eos % (Auto) 1.4 Baso % (Auto) 0.4 Lymph # (Auto) 0.95 [place] # (Auto) 1.0 H Eos # (Auto) 0.2 Baso # (Auto) 0.1 Abs Immat Gran (auto) 0.19 H Absolute Neuts (auto) 10.4 H Absolute Nucleated RBC 0.000 Band Neutrophils % Not Reportable Nucleated RBC % 0.0 Platelet Estimate Adequate Large Platelets Present Giant Platelets Present % Immature Plt Fraction 9.5 Schistocytes None seen Sodium 142 Potassium 4.2 Chloride 112 H Carbon Dioxide 19 L Anion Gap 11 BUN 90 H D Creatinine 3.98 H Estim Creat Clear Calc 20 Estimated GFR 15 L Glucose 145 H POC Capillary Glucose Calcium 8.2 L Phosphorus 4.2 Total Bilirubin 1.1 AST 37 ALT 35 Alkaline Phosphatase 234 H Total Protein 6.0 L Albumin 3.0 L Urine Color Dark yellow Urine Appearance Turbid H Urine pH 5.0 Ur Specific [place] 1.018 Urine Protein 1+ H Urine Glucose (UA) Negative Urine Ketones Negative Ur Blood (Man) 2+ H Urine Nitrate Negative Urine Bilirubin 1+ H Urine Urobilinogen 1.0 Leukocyte Esterase Rfl 2+ H Urine RBC 6-10 H Urine WBC 21-50 H Ur Squamous Epith Cells Many H Amorphous Sediment Heavy H Urine Bacteria None seen Urine Casts >20 Granular Casts Present Urine Eosinophils 3 U Random Total Protein 24 Ur Random Sodium 35 Ur Random Urea 582 Urine Creatinine 151.6 Protein/Creat Ratio 2 0.16 05/08/24 11:58 WBC RBC Hgb Hct MCV MCH MCHC RDW Plt Count MPV Immature Gran % (Auto) Neut % (Auto) Lymph % (Auto) [place] % (Auto) Eos % (Auto) Baso % (Auto) Lymph # (Auto) [place] # (Auto) Eos # (Auto) Baso # (Auto) Abs Immat Gran (auto) Absolute Neuts (auto) Absolute Nucleated RBC Band Neutrophils % Nucleated RBC % Platelet Estimate Large Platelets Giant Platelets % Immature Plt Fraction Schistocytes Sodium Potassium Chloride Carbon Dioxide Anion Gap BUN Creatinine Estim Creat Clear Calc Estimated GFR Glucose POC Capillary Glucose 126 H Calcium Phosphorus Total Bilirubin AST ALT Alkaline Phosphatase Total Protein Albumin Urine Color Urine Appearance Urine pH Ur Specific [place] Urine Protein Urine Glucose (UA) Urine Ketones Ur Blood (Man) Urine Nitrate Urine Bilirubin Urine Urobilinogen Leukocyte Esterase Rfl Urine RBC Urine WBC Ur Squamous Epith Cells Amorphous Sediment Urine Bacteria Urine Casts Granular Casts Urine Eosinophils U Random Total Protein Ur Random Sodium Ur Random Urea Urine Creatinine Protein/Creat Ratio 2 white blood cell count up to 12,800 with no left shift. Creatinine nearly 4, BUN 90 Imaging Attestation: I personally reviewed and interpreted this imaging study as follows: (CT scan without contrast chest abdomen pelvis) My impression: Small pockets of air and possibly fluid posterior to stomach and medial to ELSA drains. No free fluid appreciated Radiologist's impression:
[2024-05-08 17:48] LABS: Glucose Point of Care 113 mg/dl (65-105)
[2024-05-08] MEDS: LORazepam INJ (*CRX) 2 MG/ML VIAL 0.5 MG IV PUSH (20:50)
[2024-05-08 23:42] LABS: Glucose Point of Care 119 mg/dl (65-105)
[2024-05-09] VITALS (9 sets, daily range): BP systolic 126–143; BP diastolic 47–55; PULSE 85–93; RESP 18; TEMP 36.7–37.2; O2SAT 97–100
[2024-05-09] MEDS: MORPHINE SULFATE (*CRX) 4 MG/ML INJ IV PUSH ×4 (00:31→15:45)
[2024-05-09 05:38] LABS: Glucose Point of Care 134 mg/dl (65-105)
[2024-05-09] MEDS: ENOXAPARIN 120 MG/0.8 ML SYRINGE SUB-Q (06:31)
[2024-05-09 06:57] LABS: Basophils Percent Auto 0.4 % (0.2-1.2); Eosinophils Absolute Auto 0.1 K/mm3 (0-0.3); Eosinophils Percent Auto 1.4 % (0-4.4); Hematocrit 26.1 % (42.0-52.0); Hemoglobin 8.3 g/dL (14.0-18.0); Immature Granulocyte Absolute 0.16 K/mm3 (0.00-0.031); Immature Granulocyte Percent A 1.6 % (0-0.5); Immature Platelet Fraction Pct 9.1 % (0.9-11.2); Lymphocytes Absolute Auto 0.65 K/mm3 (0.9-3.2); Lymphocytes Percent Auto 6.5 % (18.3-44.2); Mean Corpuscular HGB Conc 31.8 g/dl (32-36); Mean Corpuscular Hemoglobin 29.2 pg (26-34); Mean Corpuscular Volume 91.9 fl (80-100); Mean Platelet Volume 13.5 fl (7.4-10.4); Monocytes Absolute Auto 0.9 K/mm3 (0.1-0.6); Monocytes Percent Auto 8.6 % (2.6-8.5); Neutrophils Absolute Auto 8.2 K/mm3 (1.3-6.7); Neutrophils Percent Auto 81.5 % (45.5-73.1); Platelet Count Result 219 k/mm3 (150-375); Red Blood Count 2.84 M/mm3 (4.6-6.20); White Blood Count 10.1 K/mm3 (4.5-10.0)
[2024-05-09 07:05] LABS: Alanine Aminotransferase 28 U/L (6-50); Albumin Level 2.7 g/dL (3.5-5.1); Alkaline Phosphatase 211 U/L (38-126); Anion Gap 12 mmol/L (4-12); Aspartate Amino Transferase 30 U/L (17-59); Bilirubin,Total 0.9 mg/dL (0.2-1.3); Blood Urea Nitrogen 91 mg/dL (9-20); Calcium 8.3 mg/dL (8.4-10.2); Carbon Dioxide 18 mmol/L (22-30); Chloride 113 mmol/L (98-107); Estimated CRCL calculation 21 ml/min; Estimated Glomerular Filt Rate 16; Glucose 143 mg/dL (65-110); Magnesium 2.1 mg/dL (1.6-2.3); Phosphorus 4.2 mg/dL (2.5-4.5); Potassium 4.1 mmol/L (3.4-5.0); Sodium 143 mmol/L (137-145)
[2024-05-09] MEDS: PANTOPRAZOLE SODIUM IV 40 MG VIAL IV PUSH ×2 (09:37→20:08)
[2024-05-09] MEDS: LIDOCAINE 5% PATCH 1 PATCH TRANSDERM (09:37)
[2024-05-09] MEDS: SODIUM CHLORIDE 0.9% IV 1,000 ML 100 ML IV CONT ×2 (09:38→20:13)
--- NOTE | 2024-05-09 10:40 | PM.IMHP ---
H&P: HPI History of Present Illness Date/Time: 05/09/24 10:40 Review of Systems Review of Systems: All systems reviewed & are unremarkable except as noted in HPI and below PMFSH Past Medical History Medical History (Updated 05/08/24 @ 16:40 by Ashlie Jordan APRN) Perforated gastric ulcer (04/2024) Repair 05/03 PAD (peripheral artery disease) Acute perforated appendicitis Piriformis syndrome Trochanteric bursitis, right hip Lumbar stenosis Low Back Pain Arthritis Colon polyps (07/02/22) Umbilical hernia HTN (hypertension) Hypercholesterolemia Surgical History Surgical History (Updated 04/24/24 @ 13:25 by Ibrahima Bird MD) History of abdominal surgery (04/2024) Repair perforated gastric ulcer History of appendectomy (06/2022) Perforated appemdix H/O Spinal surgery (1984) H/O umbilical hernia repair (2011) Hx of tonsillectomy Family History Family History Father Acute myocardial infarction Heart disease Alzheimer disease Mother Acute myocardial infarction Heart disease Alzheimer disease Social History Social History Social History: Code status: Full code Surrogate decision maker: Erika () Smoking status: Never smoker Second hand tobacco smoke exposure: Yes Alcohol intake: never Alcohol use details: Occasional Substance use: never Substance use type: does not use Lack of Transportation: No Lack of Food: Never True Current Housing: I Have Housing Concerned About Future Housing: No Difficulty Paying Gas/Electric Bills: No Difficulty Paying for Meds: No Currently Unemployed: No Education: Master's Degree or Higher Difficulty w/ Childcare or Family Care: No Living arrangements: with family Occupation/Education: retired Gender identity (if verbalized by the patient): Male Spiritual care concerns: No Agree to blood products: Yes Meds Home Medications and Allergies Home Medications ?Medication ?Instructions ?Recorded ?Confirmed ?Type aspirin 325 mg tablet 325 mg PO DAILY PRN fever 09/13/21 04/24/24 History fexofenadine 180 mg tablet 180 mg PO DAILY PRN contact 09/13/21 04/24/24 History dermititis gabapentin 300 mg capsule 600 mg PO Q12H 12/20/21 04/24/24 History hydrochlorothiazide 25 mg tablet 25 mg PO DAILY 07/23/23 04/24/24 History lisinopril 40 mg tablet See Rx Instructions .Route 11/09/23 04/23/24 Rx .COMPLEX #90 tabs furosemide 40 mg tablet 40 mg PO QAM #90 tabs 02/03/24 04/23/24 Rx tramadol 50 mg tablet 50 mg PO Q4H PRN pain #90 tabs 02/08/24 04/23/24 Rx diclofenac sodium 75 mg See Rx Instructions .Route 02/16/24 04/23/24 Rx tablet,delayed release .COMPLEX #180 tabs atorvastatin 20 mg tablet See Rx Instructions .Route 03/06/24 04/23/24 Rx .COMPLEX #90 tabs Allergies Allergy/AdvReac Type Severity Reaction Status Date / Time nickel Allergy Mild Other Verified 12/01/23 15:22 cetirizine (From yrte) Allergy Unknown Unknown Verified 04/24/24 14:15 cephalexin AdvReac Severe Rash Verified 12/01/23 15:22 Vital Signs Vital Signs - 24 hr 05/08/24 12:00 05/08/24 12:28 05/08/24 16:00 Temperature 98.4 F Pulse Rate 88 87 82 Respiratory Rate 18 Blood Pressure 135/53 L Pulse Oximetry 97 Oxygen Delivery Fraction of Inspired Oxygen 05/08/24 19:57 05/08/24 20:00 05/08/24 20:00 Temperature 98.0 F Pulse Rate 88 88 86 Respiratory Rate 18 18 Blood Pressure 155/55 H Pulse Oximetry 100 100 Oxygen Delivery Room Air Fraction of Inspired Oxygen 28 05/09/24 00:00 05/09/24 04:00 05/09/24 05:11 Temperature 98.6 F Pulse Rate 90 93 86 Respiratory Rate 18 Blood Pressure 132/55 L Pulse Oximetry 100 Oxygen Delivery Fraction of Inspired Oxygen 05/09/24 08:00 05/09/24 09:30 Temperature Pulse Rate 85 Respiratory Rate Blood Pressure Pulse Oximetry Oxygen Delivery Room Air Fraction of Inspired Oxygen H&P: Results Labs Labs: Short CBC 05/09/24 Range/Units 06:26 WBC 10.1 H (4.5-10.0) K/mm3 Hgb 8.3 L (14.0-18.0) g/dL Hct 26.1 L (42.0-52.0) % Plt Count 219 (150-375) k/mm3 BMP 05/09/24 06:26 Sodium 143 Potassium 4.1 Chloride 113 H Carbon Dioxide 18 L BUN 91 H Creatinine 3.80 H Glucose 143 H Calcium 8.3 L Liver Function 05/09/24 Range/Units 06:26 Total Bilirubin 0.9 (0.2-1.3) mg/dL AST 30 (17-59) U/L ALT 28 (6-50) U/L Alkaline Phosphatase 211 H (38-126) U/L Albumin 2.7 L (3.5-5.1) g/dL Urine 05/08/24 Range/Units 10:38 Urine Color Dark yellow (Yellow) Urine Appearance Turbid H (Clear) Urine pH 5.0 (5.0-9.0) Ur Specific [place] 1.018 (1.001-1.035) Urine Protein 1+ H (Negative) mg/dL Urine Glucose (UA) Negative (Negative) mg/dL
--- NOTE | 2024-05-09 10:51 | P.PNNP_ITS ---
Progress Note: A&P Assessment and Plan (1) Acute kidney injury: Code(s): N17.9 - Acute kidney failure, unspecified Status: Acute Assessment and Plan: * a bit worse in the last several days * had improved to baseline (1.5mg/dl) on 04/30 * suspect initial insult to be of multifactorial etiology: * NSAID use * hypotension/hemodynmic instability/shock * sepsis/infection * third spacing * evaluation to date: * CT shows normal kidneys * renal u/s with simple cyst x 1 o/w unremarkable. * urine electrolytes are prerenal * CPK mildly elevated (but not enough to affect kidneys) * urine eosinophils negative * mild proteinuria * another acute insult noted by recent labs (since 05/02): * possible due to pre-renal factors, infection (UTI +/- pneumonia versus gastric leak) * recent imaging CT of C/A/P on 05/08 noted * repeat urine studies (on 05/08) suggestive of UTI and prerenal azotemia * on trial of IVFs * monitor respiratory status given noted bilateral pleural effusion on recent imaging * follow trend of repeat labs and UOP (2) Stage 3b chronic kidney disease: Code(s): N18.32 - Chronic kidney disease, stage 3b Status: Chronic Assessment and Plan: * creatinine ~ 1.5mg/dl in November 2023 * suspect secondary to hypertension, peripheral vascular disease, and possibly chronic NSAID use as well as age-related change (3) Perforated gastric ulcer: Onset Date: 04/2024 Qualifiers: Gastric ulcer chronicity: acute Qualified Code(s): K25.1 - Acute gastric ulcer with perforation Code(s): K25.5 - Chronic or unspecified gastric ulcer with perforation Status: Acute Assessment and Plan: * suspect secondary to NSAID use * s/p exploratory laparotomy and repair of antral gastric ulcer with omental Clarence patch and placement of open gastrostomy tube (on 04/22) * completed course of antibiotics * TPN to be discontinued * was tolerating G-tube feeding but placed on hold due to concern for possible gastric leak * repeat imaging planned to re-assess this issue * General Surgery following (4) PAD (peripheral artery disease): Code(s): I73.9 - Peripheral vascular disease, unspecified Status: Acute Assessment and Plan: * CTA of left lower extremity noted * suspect acute on chronic issue * on anticoagulation (5) Acute respiratory failure: Code(s): J96.00 - Acute respiratory failure, unspecified whether with hypoxia or hypercapnia Status: Acute Assessment and Plan: * resolved * on room air * follow imaging and respiratory status * noted pleural effusion on CT of chest (6) Anemia: Code(s): D64.9 - Anemia, unspecified Status: Acute Assessment and Plan: * relatively stable * due to RIC, CKD, and acute illness * consider RADHA given renal function while hospitalized * follow trend of H/H (7) Malnutrition following gastrointestinal surgery: Code(s): K91.2 - Postsurgical malabsorption, not elsewhere classified Status: Acute Assessment and Plan: * off TPN * tube feeds on hold given concerns for gastric leak based on CT imaging on 05/08 * eventual goal is to transition to oral intake (8) HTN (hypertension): Code(s): I10 - Essential (primary) hypertension Status: Acute Assessment and Plan: * blood pressure under reasonable control * on PRN hydralazine and clonidine patch * resume oral meds via G-tube when able * follow trend of hemodynamics Will continue to follow. L Subjective Date/time seen: 05/09/24 10:51 Interval history: Follow-up for acute kidney injury/acute renal failure. Renal function/creatinine a tad better by recent labs with better urine output with IVFs; no apparent distress noted at the time of my visit; back pain seems to be doing a bit better currently; no other issues/events overnight or earlier this morning. Exam 2 Narrative: General: elderly but WD/WN male in NAD Heart: normal S1 and S2; no rub Lungs: clear anteriorly; decreased at bases Abdomen: soft, nontender; some bowel sounds; +G-tube Extremities: no cyanosis or clubbing; trace - 1+ edema Skin: no nodules Objective Data Vital Signs Vital Signs: Vital Signs Temp Pulse Resp BP Pulse Ox O2 Del Method FiO2 05/09/24 09:30 Room Air 05/09/24 08:00 85 05/09/24 05:11 98.6 F 86 18 132/55 L 100 05/09/24 04:00 93 05/09/24 00:00 90 05/08/24 20:00 86 05/08/24 20:00 88 18 100 Room Air 28 05/08/24 19:57 98.0 F 88 18 155/55 H 100 Intake/Output Intake/Output: Intake & Output 05/06/24 05/07/24 05/08/24 05/09/24 23:59 23:59 23:59 23:59 Intake Total 1450 2692 1819 1000 Output Total 1624 647 126 8052 Balance -174 2026 1254 -50 Meds/Results Medications: Active Medications Generic Name Dose Route Start Last Admin Trade Name Freq PRN Reason Stop Dose Admin Acetaminophen 650 mg 04/26/24 22:19 04/26/24 22:57 Acetaminophen 650 Mg Suppository RECTAL 650 mg Q6H PRN Administration Mild Pain (1-3) or Fever Acetaminophen 650 mg 05/05/24 10:27 05/08/24 12:38 Acetaminophen Elixir 325 Mg/10.15 Ml Udc PO 650 mg Q6H PRN Administration Mild Pain (1-3) or Fever Artificial Tears 1 drop 04/27/24 08:37 Artificial Tears Ophth Soln 15 Ml Bottle EACH EYE QID PRN Dry Eye(s) Atorvastatin Calcium 20 mg 04/30/24 09:00 Atorvastatin 20 Mg Tablet BY MOUTH DAILY ROSY Clonidine HCl 1 patch 05/01/24 09:00 05/08/24 08:43 Clonidine 0.1 Mg/24 Hr Patch TRANSDERM 1 patch WEEKLY ROSY Administration Dextrose 12.5 gm 04/22/24 23:06 Dextrose 50% 25 Gm/50 Ml Syringe IV PUSH PRN PRN Hypoglycemia Protocol Enoxaparin Sodium 120 mg 05/09/24 06:00 05/09/24 06:31 Enoxaparin 120 Mg/0.8 Ml Syringe SUB-Q 120 mg Q24H ROSY Administration Glucagon 1 mg 04/22/24 23:06 Glucagon For Inj 1 Mg Vial IM PRN PRN Hypoglycemia Protocol Glucose 15 gm 04/22/24 23:06 Glucose Oral Gel 15 Gm Of Glucse In 37.5 Gm Tube PO PRN PRN Hypoglycemia Protocol Hydralazine HCl 10 mg 04/25/24 08:00 05/03/24 21:47 Hydralazine Hcl 20 Mg/Ml Vial IV PUSH 10 mg Q4H PRN Administration Blood Pressure - High Dextrose 1,000 mls @ 100 mls/hr 04/22/24 23:06 Dextrose 5% 1,000 Ml IVPB PRN PRN Hypoglycemia Protocol Dextrose 1,000 mls @ 50 mls/hr 04/25/24 10:46 Dextrose 10% IV CONT .Q20H PRN if PN is interrupted Sodium Chloride 1,000 mls @ 100 mls/hr 05/08/24 08:55 05/09/24 09:38 Normal Saline Iv IV CONT 100 mls/hr .Q10H ROSY Administration Levofloxacin/Dextrose 750 mg in 150 mls @ 100 mls/hr 05/08/24 10:35 05/08/24 12:55 Levaquin 750 Mg/D5w 150 Ml IVPB Infused Q48HR ROSY Infusion Ipratropium [place] 0.5 mg 05/04/24 09:32 Ipratropium Br 0.02% Inh Soln 0.5 Mg/2.5 Ml Vial INHALATION Q6HRT PRN Shortness Of Breath Levalbuterol HCl 0.63 mg 05/04/24 09:32 Levalbuterol Neb 1.25 Mg/3 Ml INHALATION Q6HRT PRN Shortness Of Breath Lidocaine 1 patch 04/27/24 16:35 05/09/24 09:37 Lidocaine 5% Patch TRANSDERM 1 patch DAILY ROSY Administration Lorazepam 0.5 mg 04/27/24 19:01 05/08/24 20:50 Lorazepam Inj (*Crx) 2 Mg/Ml Vial IV PUSH 0.5 mg HS PRN Administration Sleep Morphine Sulfate 4 mg 04/22/24 22:02 05/09/24 15:45 Morphine Sulfate (*Crx) 4 Mg/Ml Inj IV PUSH 4 mg Q3H PRN Administration Pain Rated 7-10 Pantoprazole Sodium 40 mg 04/26/24 21:00 05/09/24 09:37 Pantoprazole Sodium Iv 40 Mg Vial IV PUSH 40 mg Q12HR ROSY Administration Sodium Chloride 10 ml 04/23/24 14:00 05/09/24 13:07 Central Line Flush IV PUSH 10 ml Q8HR ROSY Administration Sodium Chloride 20 ml 04/23/24 10:16 05/08/24 06:10 Central Line Flush IV PUSH 20 ml PRN PRN Administration after blood draws Sodium Chloride 10 ml 05/04/24 14:15 Central Line Flush IV PUSH PRN PRN with TPN bag changes Sodium Chloride 20 ml 05/04/24 14:15 05/05/24 06:18 Central Line Flush IV PUSH 20 ml PRN PRN Administration after blood draws Radiology Results: ITS Impressions Chest/Abdomen/Pelvis CTA 04/22/24 18:10 IMPRESSION: Perforated viscus with a large amount of free air and fluid, with mural thickening in the distal stomach and multiple punctate foci of extraluminal air in this area for which site of perforation is suspected. Renal Ultrasound 04/24/24 11:58 IMPRESSION: Simple cyst in the left kidney upper pole. Other appearances are unremarkable. Lower Extremity CTA 05/02/24 16:36 IMPRESSION: 1. Scattered atherosclerotic plaque in the arteries of the left lower limb as detailed above without a discrete hemodynamic significant stenosis. Runoff below the ankle in the left posterior tibial artery this supplies the foot. Atretic distal peroneal and anterior tibial arteries with intraluminal contrast becoming indiscernible at the level of the ankle and with no appreciable contrast in the dorsalis pedis artery. Chest X-Ray 05/08/24 08:14 IMPRESSION: Early infiltrate suspected within the right mid to lower lung field, as detailed above. Chest/Abdomen/Pelvis CT 05/08/24 10:43 IMPRESSION: Findings suggesting air and possible fluid extending from the lumen of the antrum of the stomach, with a small anterior collection, as detailed above. Repeat evaluation with Gastrografin via the gastrostomy would provide additional information. Upper GI Series 05/09/24 09:31 IMPRESSION: 1. Ulcer of the gastric antrum with contained extraluminal contrast similar to 04/28/2024. The extraluminal contrast distribution is worse than typically seen after Clarence patch repair. Labs Labs: Laboratory Tests 05/09/24 06:26 05/09/24 06:26 Calcium 8.3 L Phosphorus 4.2 Magnesium 2.1 Total Bilirubin 0.9 AST 30 ALT 28 Alkaline Phosphatase 211 H Total Protein 6.0 L Albumin 2.7 L
--- NOTE | 2024-05-09 11:18 | P.PNIM_ITS ---
Progress Note: A&P Assessment and Plan (1) Perforated abdominal viscus: Code(s): R19.8 - Other specified symptoms and signs involving the digestive system and abdomen Status: Acute Assessment and Plan: * Septic shock in setting of peritonitis with perforated gastric ulcer: * Shock has resolved * Status post exploratory laparotomy with repair of antral gastric ulcer with omental Clarence patch, open gastrostomy tube * Surgery is following. Surgery wants to hold tube feedings and hold off on starting oral liquids. * Zosyn and Diflucan stopped on 05/05/24. * Passed swallow study. * Await bowel function to return * Continue with PPI. * Pain regimen. * Monitor labs. * Upper GI series today showed: FINDINGS: There is an ulcer of the antrum of the stomach. There is contrast in a 6 x 3 cm area outside the expected ellison of the stomach. IMPRESSION: 1. Ulcer of the gastric antrum with contained extraluminal contrast similar to 04/28/2024. The extraluminal contrast distribution is worse than typically seen after Clarence patch repair. * CT abdomen without contrast, give water soluble contrast through G tube only ordered. (2) Pneumonia: Code(s): J18.9 - Pneumonia, unspecified organism Status: Acute Assessment and Plan: * Chest X-ray showed: FINDINGS Left upper extremity PICC line with its tip projecting over the right atrium. The remainder of the cardiomediastinal silhouette is otherwise unremarkable. Interval development of air bronchograms within the right mid to lower lung field, for which an early infiltrate is suspected. The remainder of the lungs are clear. IMPRESSION: Early infiltrate suspected within the right mid to lower lung field, as detailed above. * Continue Levofloxacin 750 mg IVPB q 48. * Instructed to continue using incentive spirometer, air movement is improving. * Cornet * Nebs PRN. * WBC improving from 12.8>10.1. (3) Malnutrition following gastrointestinal surgery: Code(s): K91.2 - Postsurgical malabsorption, not elsewhere classified Status: Acute Assessment and Plan: * Passed swallow study. * Surgery wants to hold tube feedings and hold off on starting oral liquids. * NS @ 100ml/hr * Surgery following. (4) Acute kidney injury superimposed on stage 3b chronic kidney disease: Code(s): N17.9 - Acute kidney failure, unspecified; N18.32 - Chronic kidney disease, stage 3b Status: Acute Assessment and Plan: * Avoid nephrotoxins * BUN 91, Creatinine 3.80, & GFR 16 * NS@ 100 ml/hr. * Nephrology following * Renal ultrasound was unremarkable for any acute issues. * Monitor labs. (5) HTN (hypertension): Code(s): I10 - Essential (primary) hypertension Status: Acute Assessment and Plan: * Blood pressure 132/55. * Continue Clonidine patch and Hydralazine PRN. (6) Generalized weakness: Code(s): R53.1 - Weakness Status: Acute Assessment and Plan: * PT/OT (7) Hypokalemia: Code(s): E87.6 - Hypokalemia Status: Acute Assessment and Plan: * Potassium 4.1. * Monitor levels. Plan 78-year-old male with a past medical history of the osteoarthritis on chronic NSAID therapy, hyperlipidemia, hypertension, prior umbilical hernia repair, perforated appendix status post resection 2022 who presented to the ER via EMS with 3 days of sharp radiating abdominal pain. CT demonstrated perforated viscus with large amount of free air and fluid with mural thickening of the distal stomach and multiple punctate foci of extraluminal air with suspected perforated ulcer. Patient was evaluated by the surgeon in the ER was taken directly to the OR. Status post exploratory laparotomy with repair of antral gastric ulcer with omental Clarence patch. Placement of open gastrostomy tube on 04/22/2024. Patient was admitted to the ICU with shock requiring pressor support, intubated. Was eventually extubated on 04/25/2024. He was off pressor support on 04/24/2024. Has been on Zosyn and Diflucan as per surgery, stopped 05/05/24. Subjective Date/time seen: 05/09/24 11:18 Interval history: Patient denies chest pain, palpitations, headache, dizziness, nausea, or vomiting. Patient reports that he has been using his incentive spirometer. Review of Systems Review of Systems: All systems reviewed & are unremarkable except as noted in HPI and below Exam Const: General: comfortable and no acute distress Resp: Effort & Inspection: normal respiratory effort Other: Slightly diminished, air movement improving. Cardio: Rate: regular rate Rhythm: regular rhythm Other: Telemetry-SR 87 GI: GI Palp: Yes Soft to palpation Auscultation: normal bowel sounds Other: semi distended. Neuro: Speech: normal speech Extrem: General: pedal edema (1+ RLE, trace LLE) Psych: Mental Status: mental status grossly normal Affect: normal affect Objective Data Vital Signs Vital Signs: Vital Signs - 24 hr 05/08/24 12:00 05/08/24 12:28 05/08/24 16:00 Temperature 98.4 F Pulse Rate 88 87 82 Respiratory Rate 18 Blood Pressure 135/53 L Pulse Oximetry 97 Oxygen Delivery Fraction of Inspired Oxygen 05/08/24 19:57 05/08/24 20:00 05/08/24 20:00 Temperature 98.0 F Pulse Rate 88 88 86 Respiratory Rate 18 18 Blood Pressure 155/55 H Pulse Oximetry 100 100 Oxygen Delivery Room Air Fraction of Inspired Oxygen 05/09/24 00:00 05/09/24 04:00 05/09/24 05:11 Temperature 98.6 F Pulse Rate 90 93 86 Respiratory Rate 18 Blood Pressure 132/55 L Pulse Oximetry 100 Oxygen Delivery Fraction of Inspired Oxygen 05/09/24 08:00 05/09/24 09:30 Temperature Pulse Rate 85 Respiratory Rate Blood Pressure Pulse Oximetry Oxygen Delivery Room Air Fraction of Inspired Oxygen Intake/Output Intake/Output: Intake & Output 05/06/24 05/07/24 05/08/24 05/09/24 23:59 23:59 23:59 23:59 Intake Total 1450 2692 1819 1000 Output Total 1624 665 565 700 Balance -174 2027 1254 300 Meds/Results Medications: Active Medications Generic Name Dose Route Start Last Admin Trade Name Freq PRN Reason Stop Dose Admin Acetaminophen 650 mg 04/26/24 22:19 04/26/24 22:57 Acetaminophen 650 Mg Suppository RECTAL 650 mg Q6H PRN Administration Mild Pain (1-3) or Fever Acetaminophen 650 mg 05/05/24 10:27 05/08/24 12:38 Acetaminophen Elixir 325 Mg/10.15 Ml Udc PO 650 mg Q6H PRN Administration Mild Pain (1-3) or Fever Artificial Tears 1 drop 04/27/24 08:37 Artificial Tears Ophth Soln 15 Ml Bottle EACH EYE QID PRN Dry Eye(s) Atorvastatin Calcium 20 mg 04/30/24 09:00 Atorvastatin 20 Mg Tablet BY MOUTH DAILY ROSY Clonidine HCl 1 patch 05/01/24 09:00 05/08/24 08:43 Clonidine 0.1 Mg/24 Hr Patch TRANSDERM 1 patch WEEKLY ROSY Administration Dextrose 12.5 gm 04/22/24 23:06 Dextrose 50% 25 Gm/50 Ml Syringe IV PUSH PRN PRN Hypoglycemia Protocol Enoxaparin Sodium 120 mg 05/09/24 06:00 05/09/24 06:31 Enoxaparin 120 Mg/0.8 Ml Syringe SUB-Q 120 mg Q24H ROSY Administration Glucagon 1 mg 04/22/24 23:06 Glucagon For Inj 1 Mg Vial IM PRN PRN Hypoglycemia Protocol Glucose 15 gm 04/22/24 23:06 Glucose Oral Gel 15 Gm Of Glucse In 37.5 Gm Tube PO PRN PRN Hypoglycemia Protocol Hydralazine HCl 10 mg 04/25/24 08:00 05/03/24 21:47 Hydralazine Hcl 20 Mg/Ml Vial IV PUSH 10 mg Q4H PRN Administration Blood Pressure - High Dextrose 1,000 mls @ 100 mls/hr 04/22/24 23:06 Dextrose 5% 1,000 Ml IVPB PRN PRN Hypoglycemia Protocol Dextrose 1,000 mls @ 50 mls/hr 04/25/24 10:46 Dextrose 10% IV CONT .Q20H PRN if PN is interrupted Sodium Chloride 1,000 mls @ 100 mls/hr 05/08/24 08:55 05/09/24 09:38 Normal Saline Iv IV CONT 100 mls/hr .Q10H ROSY Administration Levofloxacin/Dextrose 750 mg in 150 mls @ 100 mls/hr 05/08/24 10:35 05/08/24 12:55 Levaquin 750 Mg/D5w 150 Ml IVPB Infused Q48HR ROSY Infusion Ipratropium [place] 0.5 mg 05/04/24 09:32 Ipratropium Br 0.02% Inh Soln 0.5 Mg/2.5 Ml Vial INHALATION Q6HRT PRN Shortness Of Breath Levalbuterol HCl 0.63 mg 05/04/24 09:32 Levalbuterol Neb 1.25 Mg/3 Ml INHALATION Q6HRT PRN Shortness Of Breath Lidocaine 1 patch 04/27/24 16:35 05/09/24 09:37 Lidocaine 5% Patch TRANSDERM 1 patch DAILY ROSY Administration Lorazepam 0.5 mg 04/27/24 19:01 05/08/24 20:50 Lorazepam Inj (*Crx) 2 Mg/Ml Vial IV PUSH 0.5 mg HS PRN Administration Sleep Morphine Sulfate 4 mg 04/22/24 22:02 05/09/24 09:37 Morphine Sulfate (*Crx) 4 Mg/Ml Inj IV PUSH 4 mg Q3H PRN Administration Pain Rated 7-10 Pantoprazole Sodium 40 mg 04/26/24 21:00 05/09/24 09:37 Pantoprazole Sodium Iv 40 Mg Vial IV PUSH 40 mg Q12HR ROSY Administration Sodium Chloride 10 ml 04/23/24 14:00 05/09/24 07:43 Central Line Flush IV PUSH Not Given Q8HR ROSY Sodium Chloride 20 ml 04/23/24 10:16 05/08/24 06:10 Central Line Flush IV PUSH 20 ml PRN PRN Administration after blood draws Sodium Chloride 10 ml 05/04/24 14:15 Central Line Flush IV PUSH PRN PRN with TPN bag changes Sodium Chloride 20 ml 05/04/24 14:15 05/05/24 06:18 Central Line Flush IV PUSH 20 ml PRN PRN Administration after blood draws Radiology Results: ITS Impressions Chest/Abdomen/Pelvis CTA 04/22/24 18:10 IMPRESSION: Perforated viscus with a large amount of free air and fluid, with mural thickening in the distal stomach and multiple punctate foci of extraluminal air in this area for which site of perforation is suspected. Renal Ultrasound 04/24/24 11:58 IMPRESSION: Simple cyst in the left kidney upper pole. Other appearances are unremarkable. Lower Extremity CTA 05/02/24 16:36 IMPRESSION: 1. Scattered atherosclerotic plaque in the arteries of the left lower limb as detailed above without a discrete hemodynamic significant stenosis. Runoff below the ankle in the left posterior tibial artery this supplies the foot. Atretic distal peroneal and anterior tibial arteries with intraluminal contrast becoming indiscernible at the level of the ankle and with no appreciable contrast in the dorsalis pedis artery. Abdomen CT 05/03/24 10:41 IMPRESSION: 1. Perforation of the posterior aspect of the gastric antrum with extraluminal leakage of contrast. 2. Small volume of ascites. 3. Small pleural effusions. ADDENDUM: 05/03/24 1331 The extraluminal contrast remains near the site of perforation and may be contained by the omental patch. I discussed these findings with Dr. Moreno. Chest X-Ray 05/08/24 08:14 IMPRESSION: Early infiltrate suspected within the right mid to lower lung field, as detailed above. Chest/Abdomen/Pelvis CT 05/08/24 10:43 IMPRESSION: Findings suggesting air and possible fluid extending from the lumen of the antrum of the stomach, with a small anterior collection, as detailed above. Repeat evaluation with Gastrografin via the gastrostomy would provide additional information. Upper GI Series 05/09/24 09:31 IMPRESSION: 1. Ulcer of the gastric antrum with contained extraluminal contrast similar to 04/28/2024. The extraluminal contrast distribution is worse than typically seen after Clarence patch repair. Labs Labs: Laboratory Results - last 24 hr 05/08/24 05/08/24 05/08/24 10:42 11:58 17:45 WBC RBC Hgb Hct MCV MCH MCHC RDW Plt Count MPV Immature Gran % (Auto) Neut % (Auto) Lymph % (Auto) [place] % (Auto) Eos % (Auto) Baso % (Auto) Lymph # (Auto) [place] # (Auto) Eos # (Auto) Baso # (Auto) Abs Immat Gran (auto) Absolute Neuts (auto) Absolute Nucleated RBC Nucleated RBC % % Immature Plt Fraction Sodium Potassium Chloride Carbon Dioxide Anion Gap BUN Creatinine Estim Creat Clear Calc Estimated GFR Glucose POC Capillary Glucose 126 H 113 H Calcium Phosphorus Magnesium Total Bilirubin AST ALT Alkaline Phosphatase Total Protein Albumin Urine Eosinophils 3 05/08/24 05/09/24 05/09/24 23:38 05:34 06:26 WBC 10.1 H RBC 2.84 L Hgb 8.3 L Hct 26.1 L MCV 91.9 MCH 29.2 MCHC 31.8 L RDW 16.0 H Plt Count 219 MPV 13.5 H Immature Gran % (Auto) 1.6 H Neut % (Auto) 81.5 H Lymph % (Auto) 6.5 L [place] % (Auto) 8.6 H Eos % (Auto) 1.4 Baso % (Auto) 0.4 Lymph # (Auto) 0.65 L [place] # (Auto) 0.9 H Eos # (Auto) 0.1 Baso # (Auto) 0.0 Abs Immat Gran (auto) 0.16 H Absolute Neuts (auto) 8.2 H Absolute Nucleated RBC 0.000 Nucleated RBC % 0.0 % Immature Plt Fraction 9.1 Sodium 143 Potassium 4.1 Chloride 113 H Carbon Dioxide 18 L Anion Gap 12 BUN 91 H Creatinine 3.80 H Estim Creat Clear Calc 21 Estimated GFR 16 L Glucose 143 H POC Capillary Glucose 119 H 134 H Calcium 8.3 L Phosphorus 4.2 Magnesium 2.1 Total Bilirubin 0.9 AST 30 ALT 28 Alkaline Phosphatase 211 H Total Protein 6.0 L Albumin 2.7 L Urine Eosinophils Quality VTE Prophylaxis VTE prophylaxis: mechanical ordered and pharmacologic ordered
[2024-05-09 11:55] LABS: Glucose Point of Care 124 mg/dl (65-105)
--- NOTE | 2024-05-09 12:17 | P.PNGS_ITS ---
Progress Note: A&P Assessment and Plan (1) Perforated gastric ulcer: Onset Date: 04/2024 Qualifiers: Gastric ulcer chronicity: acute Qualified Code(s): K25.1 - Acute gastric ulcer with perforation Code(s): K25.5 - Chronic or unspecified gastric ulcer with perforation Status: Acute Assessment and Plan: WBC down to 10,000 today and no fevers overnight or this morning. CT abdomen/pelvis concerning for gastric leak. Water-soluble contrast study through the G-tube ordered today to further evaluate and showed the ulcer of the gastric antrum with contained extraluminal contrast similar to his previous imaging from 04/28/24. Will order a CT abdomen with water-soluble contrast through the G-tube today to better evaluate the possible extraluminal contrast. Unlikely that this is an acute finding that is causing his fevers and leukocytosis. Chest x-ray radha wed an infiltrate and he was started on renally-dosed IV Levaquin. Continue to hold tube feedings until CT has resulted. Could potentially start clear liquids with tube feeding if CT appears unchanged. (2) Malnutrition following gastrointestinal surgery: Code(s): K91.2 - Postsurgical malabsorption, not elsewhere classified Status: Acute Assessment and Plan: Holding tube feeds for now until CT has resulted, see plan above. If we need to hold tube feedings, then we may need to restarting TPN. (3) Acute kidney injury superimposed on stage 3b chronic kidney disease: Code(s): N17.9 - Acute kidney failure, unspecified; N18.32 - Chronic kidney disease, stage 3b Status: Acute Assessment and Plan: Creatinine down slightly to 3.8 today and urine output better overnight after trial of IV fluids, Nephrology following. Continue IV fluids for now, especially while NPO. Plan I have discussed the patient's case and plan of care with Dr. Aguiar. Subjective Subjective Date/Time Seen: 05/09/24 12:17 Post Op day: 17 Patient reports: flatus, bowel movement (this am) and afebrile (no fever over 100F since 05/07) Interval history: Patient denies any abdominal pain or nausea. He had some shoulder pain earlier this morning and is using a lidocaine patch. He also had a bowel movement this morning. Denies any other issues. Per nursing, he had tube feeding running this morning when they assessed the patient. This was supposed to be held. He has been tolerating tube feedings without any issues with residuals. Minimal output from ELSA drains. Review of Systems Review of Systems: All systems reviewed & are unremarkable except as noted in HPI and below Exam Const: General: comfortable and no acute distress GI: Auscultation: normal bowel sounds Other: Abdomen mildly distended and soft. He has mild tenderness near gastrostomy tube in the LUQ and RUQ. No guarding. ELSA drains x 2 with scant serous output. Gastrostomy tube in place with dry gauze dressing and skin around the G-tube wi thout erythema or drainage. Incision dry with steri strips intact, no erythema. Extrem: Other: Bilateral lower extremities are both warm with good color. No mottling or pallor on the left lower extremity. Objective Data Vital Signs Vital Signs: Vital Signs - 24 hr 05/08/24 12:28 05/08/24 16:00 05/08/24 19:57 Temperature 98.4 F 98.0 F Pulse Rate 87 82 88 Respiratory Rate 18 18 Blood Pressure 135/53 L 155/55 H Pulse Oximetry 97 100 Oxygen Delivery Fraction of Inspired Oxygen 05/08/24 20:00 05/08/24 20:00 05/09/24 00:00 Temperature Pulse Rate 88 86 90 Respiratory Rate 18 Blood Pressure Pulse Oximetry 100 Oxygen Delivery Room Air Fraction of Inspired Oxygen 05/09/24 04:00 05/09/24 05:11 05/09/24 08:00 Temperature 98.6 F Pulse Rate 93 86 85 Respiratory Rate 18 Blood Pressure 132/55 L Pulse Oximetry 100 Oxygen Delivery Fraction of Inspired Oxygen 05/09/24 09:30 Temperature Pulse Rate Respiratory Rate Blood Pressure Pulse Oximetry Oxygen Delivery Room Air Fraction of Inspired Oxygen Intake/Output Intake/Output: Intake & Output 05/06/24 05/07/24 05/08/24 05/09/24 23:59 23:59 23:59 23:59 Intake Total 1450 2692 1819 1000 Output Total 1624 665 565 700 Balance -174 2027 1254 300 Meds/Results Medications: Active Medications Generic Name Dose Route Start Last Admin Trade Name Freq PRN Reason Stop Dose Admin Acetaminophen 650 mg 04/26/24 22:19 04/26/24 22:57 Acetaminophen 650 Mg Suppository RECTAL 650 mg Q6H PRN Administration Mild Pain (1-3) or Fever Acetaminophen 650 mg 05/05/24 10:27 05/08/24 12:38 Acetaminophen Elixir 325 Mg/10.15 Ml Udc PO 650 mg Q6H PRN Administration Mild Pain (1-3) or Fever Artificial Tears 1 drop 04/27/24 08:37 Artificial Tears Ophth Soln 15 Ml Bottle EACH EYE QID PRN Dry Eye(s) Atorvastatin Calcium 20 mg 04/30/24 09:00 Atorvastatin 20 Mg Tablet BY MOUTH DAILY ROSY Clonidine HCl 1 patch 05/01/24 09:00 05/08/24 08:43 Clonidine 0.1 Mg/24 Hr Patch TRANSDERM 1 patch WEEKLY ROSY Administration Dextrose 12.5 gm 04/22/24 23:06 Dextrose 50% 25 Gm/50 Ml Syringe IV PUSH PRN PRN Hypoglycemia Protocol Enoxaparin Sodium 120 mg 05/09/24 06:00 05/09/24 06:31 Enoxaparin 120 Mg/0.8 Ml Syringe SUB-Q 120 mg Q24H ROSY Administration Glucagon 1 mg 04/22/24 23:06 Glucagon For Inj 1 Mg Vial IM PRN PRN Hypoglycemia Protocol Glucose 15 gm 04/22/24 23:06 Glucose Oral Gel 15 Gm Of Glucse In 37.5 Gm Tube PO PRN PRN Hypoglycemia Protocol Hydralazine HCl 10 mg 04/25/24 08:00 05/03/24 21:47 Hydralazine Hcl 20 Mg/Ml Vial IV PUSH 10 mg Q4H PRN Administration Blood Pressure - High Dextrose 1,000 mls @ 100 mls/hr 04/22/24 23:06 Dextrose 5% 1,000 Ml IVPB PRN PRN Hypoglycemia Protocol Dextrose 1,000 mls @ 50 mls/hr 04/25/24 10:46 Dextrose 10% IV CONT .Q20H PRN if PN is interrupted Sodium Chloride 1,000 mls @ 100 mls/hr 05/08/24 08:55 05/09/24 09:38 Normal Saline Iv IV CONT 100 mls/hr .Q10H ROSY Administration Levofloxacin/Dextrose 750 mg in 150 mls @ 100 mls/hr 05/08/24 10:35 05/08/24 12:55 Levaquin 750 Mg/D5w 150 Ml IVPB Infused Q48HR ROSY Infusion Ipratropium [place] 0.5 mg 05/04/24 09:32 Ipratropium Br 0.02% Inh Soln 0.5 Mg/2.5 Ml Vial INHALATION Q6HRT PRN Shortness Of Breath Levalbuterol HCl 0.63 mg 05/04/24 09:32 Levalbuterol Neb 1.25 Mg/3 Ml INHALATION Q6HRT PRN Shortness Of Breath Lidocaine 1 patch 04/27/24 16:35 05/09/24 09:37 Lidocaine 5% Patch TRANSDERM 1 patch DAILY ROSY Administration Lorazepam 0.5 mg 04/27/24 19:01 05/08/24 20:50 Lorazepam Inj (*Crx) 2 Mg/Ml Vial IV PUSH 0.5 mg HS PRN Administration Sleep Morphine Sulfate 4 mg 04/22/24 22:02 05/09/24 09:37 Morphine Sulfate (*Crx) 4 Mg/Ml Inj IV PUSH 4 mg Q3H PRN Administration Pain Rated 7-10 Pantoprazole Sodium 40 mg 04/26/24 21:00 05/09/24 09:37 Pantoprazole Sodium Iv 40 Mg Vial IV PUSH 40 mg Q12HR ROSY Administration Sodium Chloride 10 ml 04/23/24 14:00 05/09/24 07:43 Central Line Flush IV PUSH Not Given Q8HR ROSY Sodium Chloride 20 ml 04/23/24 10:16 05/08/24 06:10 Central Line Flush IV PUSH 20 ml PRN PRN Administration after blood draws Sodium Chloride 10 ml 05/04/24 14:15 Central Line Flush IV PUSH PRN PRN with TPN bag changes Sodium Chloride 20 ml 05/04/24 14:15 05/05/24 06:18 Central Line Flush IV PUSH 20 ml PRN PRN Administration after blood draws Radiology Results: ITS Impressions Chest/Abdomen/Pelvis CTA 04/22/24 18:10 IMPRESSION: Perforated viscus with a large amount of free air and fluid, with mural thickening in the distal stomach and multiple punctate foci of extraluminal air in this area for which site of perforation is suspected. Renal Ultrasound 04/24/24 11:58 IMPRESSION: Simple cyst in the left kidney upper pole. Other appearances are unremarkable. Lower Extremity CTA 05/02/24 16:36 IMPRESSION: 1. Scattered atherosclerotic plaque in the arteries of the left lower limb as detailed above without a discrete hemodynamic significant stenosis. Runoff below the ankle in the left posterior tibial artery this supplies the foot. Atretic distal peroneal and anterior tibial arteries with intraluminal contrast becoming indiscernible at the level of the ankle and with no appreciable contrast in the dorsalis pedis artery. Abdomen CT 05/03/24 10:41 IMPRESSION: 1. Perforation of the posterior aspect of the gastric antrum with extraluminal leakage of contrast. 2. Small volume of ascites. 3. Small pleural effusions. ADDENDUM: 05/03/24 1331 The extraluminal contrast remains near the site of perforation and may be contained by the omental patch. I discussed these findings with Dr. Moreno. Chest X-Ray 05/08/24 08:14 IMPRESSION: Early infiltrate suspected within the right mid to lower lung field, as detailed above. Chest/Abdomen/Pelvis CT 05/08/24 10:43 IMPRESSION: Findings suggesting air and possible fluid extending from the lumen of the antrum of the stomach, with a small anterior collection, as detailed above. Repeat evaluation with Gastrografin via the gastrostomy would provide additional information. Upper GI Series 05/09/24 09:31 IMPRESSION: 1. Ulcer of the gastric antrum with contained extraluminal contrast similar to 04/28/2024. The extraluminal contrast distribution is worse than typically seen after Clarence patch repair. Labs Labs: Laboratory Results - last 24 hr 05/08/24 05/08/24 05/09/24 17:45 23:38 05:34 WBC RBC Hgb Hct MCV MCH MCHC RDW Plt Count MPV Immature Gran % (Auto) Neut % (Auto) Lymph % (Auto) [place] % (Auto) Eos % (Auto) Baso % (Auto) Lymph # (Auto) [place] # (Auto) Eos # (Auto) Baso # (Auto) Abs Immat Gran (auto) Absolute Neuts (auto) Absolute Nucleated RBC Nucleated RBC % % Immature Plt Fraction Sodium Potassium Chloride Carbon Dioxide Anion Gap BUN Creatinine Estim Creat Clear Calc Estimated GFR Glucose POC Capillary Glucose 113 H 119 H 134 H Calcium Phosphorus Magnesium Total Bilirubin AST ALT Alkaline Phosphatase Total Protein Albumin 05/09/24 05/09/24 06:26 11:51 WBC 10.1 H RBC 2.84 L Hgb 8.3 L Hct 26.1 L MCV 91.9 MCH 29.2 MCHC 31.8 L RDW 16.0 H Plt Count 219 MPV 13.5 H Immature Gran % (Auto) 1.6 H Neut % (Auto) 81.5 H Lymph % (Auto) 6.[address] [place] % (Auto) 8.6 H Eos % (Auto) 1.4 Baso % (Auto) 0.4 Lymph # (Auto) 0.[address] [place] # (Auto) 0.9 H Eos # (Auto) 0.1 Baso # (Auto) 0.0 Abs Immat Gran (auto) 0.16 H Absolute Neuts (auto) 8.2 H Absolute Nucleated RBC 0.000 Nucleated RBC % 0.0 % Immature Plt Fraction 9.1 Sodium 143 Potassium 4.1 Chloride 113 H Carbon Dioxide 18 L Anion Gap 12 BUN 91 H Creatinine 3.80 H Estim Creat Clear Calc 21 Estimated GFR 16 L Glucose 143 H POC Capillary Glucose 124 H Calcium 8.3 L Phosphorus 4.2 Magnesium 2.1 Total Bilirubin 0.9 AST 30 ALT 28 Alkaline Phosphatase 211 H Total Protein 6.0 L Albumin 2.7 L
[2024-05-09] MEDS: CENTRAL LINE FLUSH 10 ML IV PUSH ×2 (13:07→20:08)
--- NOTE | 2024-05-09 13:15 | PCNFU ---
Nutrition Follow-Up Complete: Inadequate oral intake related to altered GI function as evidenced by need for full tube feeding Meet estimated nutrition needs -Nutrition is on hold today because of procedure Goal: Pt current nutrition is NPO. Nutrition recommendation: Depending on results, restart tube feeding: Jevity 1.5 @ 40 ml/h. Flush 30 ml q 4 h. TPN is stopped. Last recorded weight is 127.7 kg. Bowel Motility: +2 BMs 05/09/24 Labs Reviewed: Hgb 8.3, Hct 26.1, Alb 2.7, BUN 91, Cre 3.8, Glu 143 Meds Noted: Protonix Skin: No skin issues Additional Notes: Pt having CT today determine status of GI leak; to restart TF and clear liquids afterward if cleared. If not cleared, restart TPN Clinmix E 15 @ 50 ml/g to provide 1352 kcal, 60 g protein, 1450 ml total volume. Monitoring TPN tolerance, GI function, plan of care, weights, labs, orders Follow up Thursday/Thursday
[2024-05-09 17:44] LABS: Glucose Point of Care 110 mg/dl (65-105)
[2024-05-09 23:30] LABS: Glucose Point of Care 95 mg/dl (65-105)
[2024-05-10] VITALS (13 sets, daily range): BP systolic 121–141; BP diastolic 49–67; PULSE 84–96; RESP 16–18; TEMP 36.5–37; O2SAT 95–100
[2024-05-10] MEDS: LORazepam INJ (*CRX) 2 MG/ML VIAL 0.5 MG IV PUSH ×2 (00:28→23:50)
[2024-05-10] MEDS: MORPHINE SULFATE (*CRX) 4 MG/ML INJ IV PUSH ×5 (00:30→23:55)
[2024-05-10] MEDS: SODIUM CHLORIDE 0.9% IV 1,000 ML 100 ML IV CONT (05:50)
[2024-05-10] MEDS: CENTRAL LINE FLUSH 10 ML IV PUSH ×3 (05:50→21:14)
[2024-05-10] MEDS: ENOXAPARIN 120 MG/0.8 ML SYRINGE SUB-Q (05:51)
[2024-05-10 06:05] LABS: Glucose Point of Care 100 mg/dl (65-105)
[2024-05-10 06:06] LABS: Basophils Percent Auto 0.3 % (0.2-1.2); Eosinophils Absolute Auto 0.1 K/mm3 (0-0.3); Eosinophils Percent Auto 0.5 % (0-4.4); Hematocrit 21.1 % (42.0-52.0); Immature Granulocyte Absolute 0.14 K/mm3 (0.00-0.031); Immature Granulocyte Percent A 1.5 % (0-0.5); Lymphocytes Absolute Auto 0.68 K/mm3 (0.9-3.2); Lymphocytes Percent Auto 7.2 % (18.3-44.2); Mean Corpuscular HGB Conc 31.3 g/dl (32-36); Mean Corpuscular Hemoglobin 28.9 pg (26-34); Mean Corpuscular Volume 92.5 fl (80-100); Mean Platelet Volume 12.9 fl (7.4-10.4); Monocytes Absolute Auto 0.9 K/mm3 (0.1-0.6); Monocytes Percent Auto 9.9 % (2.6-8.5); Neutrophils Absolute Auto 7.6 K/mm3 (1.3-6.7); Neutrophils Percent Auto 80.6 % (45.5-73.1); Platelet Count Result 175 k/mm3 (150-375); Red Blood Count 2.28 M/mm3 (4.6-6.20); White Blood Count 9.5 K/mm3 (4.5-10.0)
[2024-05-10 06:18] LABS: Alanine Aminotransferase 25 U/L (6-50); Albumin Level 2.5 g/dL (3.5-5.1); Alkaline Phosphatase 169 U/L (38-126); Anion Gap 13 mmol/L (4-12); Aspartate Amino Transferase 32 U/L (17-59); Bilirubin,Total 0.7 mg/dL (0.2-1.3); Blood Urea Nitrogen 95 mg/dL (9-20); Calcium 8.2 mg/dL (8.4-10.2); Carbon Dioxide 16 mmol/L (22-30); Chloride 119 mmol/L (98-107); Estimated CRCL calculation 21 ml/min; Estimated Glomerular Filt Rate 15; Glucose 102 mg/dL (65-110); Phosphorus 5.5 mg/dL (2.5-4.5); Potassium 4.1 mmol/L (3.4-5.0); Sodium 148 mmol/L (137-145)
[2024-05-10 06:24] LABS: Hemoglobin 6.6 g/dL (14.0-18.0)
--- NOTE | 2024-05-10 06:34 | PC.NURSE ---
05/10/[address] Reynoso for critical hemoglobin. Dr. Reynoso with a patient and requests a message be left with Kimberly the nurse for the hospitalist group r/t crtical hemoglobin and she can notify the day provider of result. At 0630 a message was left on Kimberly's phone. Charge nurse made aware and will pass information along to the day nurse.
[2024-05-10 07:28] LABS: Hematocrit 21.2 % (42.0-52.0); Mean Corpuscular HGB Conc 31.6 g/dl (32-36); Mean Corpuscular Hemoglobin 29.1 pg (26-34); Mean Corpuscular Volume 92.2 fl (80-100); Platelet Count Result 182 k/mm3 (150-375); Red Cell Distribution Width 15.9 % (11.5-14.5); White Blood Count 9.7 K/mm3 (4.5-10.0)
[2024-05-10 07:39] LABS: Hemoglobin 6.7 g/dL (14.0-18.0)
[2024-05-10] MEDS: levoFLOXacin 750 MG/D5W 150 ML 750 MG/150 ML BAG 100 MG IVPB (08:13)
[2024-05-10] MEDS: LIDOCAINE 5% PATCH 1 PATCH TRANSDERM (08:14)
[2024-05-10] MEDS: PANTOPRAZOLE SODIUM IV 40 MG VIAL IV PUSH ×2 (08:14→21:07)
[2024-05-10] MEDS: SODIUM CHLORIDE 0.9% IV 250 ML 30 ML IV CONT (09:47)
[2024-05-10] MEDS: TUBING, BLOOD PLUM PUMP TUBING 1 EACH XX (09:48)
--- NOTE | 2024-05-10 10:22 | P.PNNP_ITS ---
Progress Note: A&P Assessment and Plan (1) Acute kidney injury: Code(s): N17.9 - Acute kidney failure, unspecified Status: Acute Assessment and Plan: * a bit worse but relatively stable in the last several days * had improved to baseline (1.5mg/dl) on 04/30 * suspect initial insult to be of multifactorial etiology: * NSAID use * hypotension/hemodynmic instability/shock * sepsis/infection * third spacing * evaluation to date: * CT shows normal kidneys * renal u/s with simple cyst x 1 o/w unremarkable. * urine electrolytes are prerenal * CPK mildly elevated (but not enough to affect kidneys) * urine eosinophils negative * mild proteinuria * another acute insult noted by recent labs (since 05/02): * possible due to pre-renal factors, infection (UTI +/- pneumonia versus gastric leak) * recent imaging noted - no evidence of gastric leak * repeat urine studies (on 05/08) suggestive of UTI and prerenal azotemia * back off on IVFs since tolerating tube feeds * titrate FWF with tube feeds given elevated sodium level * follow trend of repeat labs and UOP (2) Stage 3b chronic kidney disease: Code(s): N18.32 - Chronic kidney disease, stage 3b Status: Chronic Assessment and Plan: * creatinine ~ 1.5mg/dl in November 2023 * suspect secondary to hypertension, peripheral vascular disease, and possibly chronic NSAID use as well as age-related change (3) Perforated gastric ulcer: Onset Date: 04/2024 Qualifiers: Gastric ulcer chronicity: acute Qualified Code(s): K25.1 - Acute gastric ulcer with perforation Code(s): K25.5 - Chronic or unspecified gastric ulcer with perforation Status: Acute Assessment and Plan: * suspect secondary to NSAID use * s/p exploratory laparotomy and repair of antral gastric ulcer with omental Clarence patch and placement of open gastrostomy tube (on 04/22) * completed course of antibiotics * TPN to be discontinued * tolerating G-tube feedings * General Surgery following (4) PAD (peripheral artery disease): Code(s): I73.9 - Peripheral vascular disease, unspecified Status: Acute Assessment and Plan: * CTA of left lower extremity noted * suspect acute on chronic issue * on anticoagulation (5) Acute respiratory failure: Code(s): J96.00 - Acute respiratory failure, unspecified whether with hypoxia or hypercapnia Status: Acute Assessment and Plan: * resolved * on room air * follow imaging and respiratory status * noted pleural effusion on CT of chest (6) Anemia: Code(s): D64.9 - Anemia, unspecified Status: Acute Assessment and Plan: * noted acute drop (on 05/10) * due to RIC, CKD, and acute illness * consider RADHA given renal function while hospitalized * PRBC transfusion per protocol * follow trend of H/H (7) Malnutrition following gastrointestinal surgery: Code(s): K91.2 - Postsurgical malabsorption, not elsewhere classified Status: Acute Assessment and Plan: * off TPN * tube feeds ongoing * eventual goal is to transition to oral intake (8) HTN (hypertension): Code(s): I10 - Essential (primary) hypertension Status: Acute Assessment and Plan: * blood pressure under reasonable control * on PRN hydralazine and clonidine patch * resume oral meds via G-tube when able * follow trend of hemodynamics Will continue to follow. Subjective Date/time seen: 05/10/24 10:22 Interval history: Follow-up for acute kidney injury/acute renal failure. Further imaging/testing yesterday seems to indicate there is no gastric leak; tolerating tube feedings at this time as well; renal function/creatinine about the same but still has reasonable urine output; drop in H/H noted by AM labs so PRBC transfusion ordered/initiated; no evidence of hematochezia or melena per patient or nursing staff. Exam Narrative: General: elderly but WD/WN male in NAD Heart: normal S1 and S2; no rub Lungs: clear anteriorly; decreased at bases Abdomen: soft, nontender; some bowel sounds; +G-tube Extremities: no cyanosis or clubbing; trace - 1+ edema Skin: warm and dry Objective Data Vital Signs Vital Signs: Vital Signs Temp Pulse Resp BP Pulse Ox O2 Del Method 05/10/24 10:20 97.9 F 85 16 125/67 100 05/10/24 10:05 97.7 F 86 16 123/49 L 98 05/10/24 08:00 86 05/10/24 08:00 Room Air 05/10/24 04:43 97.8 F 87 18 124/62 95 05/10/24 04:00 87 05/10/24 00:00 89 05/09/24 20:00 87 05/09/24 19:20 98.9 F 89 18 143/50 H 97 Intake/Output Intake/Output: Intake & Output 05/07/24 05/08/24 05/09/24 05/10/24 23:59 23:59 23:59 23:59 Intake Total 2692 1819 1999 2260 Output Total 488 259 2134 1107 Balance 2026 0176 007 4698 Meds/Results Medications: Active Medications Generic Name Dose Route Start Last Admin Trade Name Freq PRN Reason Stop Dose Admin Acetaminophen 650 mg 04/26/24 22:19 04/26/24 22:57 Acetaminophen 650 Mg Suppository RECTAL 650 mg Q6H PRN Administration Mild Pain (1-3) or Fever Acetaminophen 650 mg 05/05/24 10:27 05/08/24 12:38 Acetaminophen Elixir 325 Mg/10.15 Ml Udc PO 650 mg Q6H PRN Administration Mild Pain (1-3) or Fever Artificial Tears 1 drop 04/27/24 08:37 Artificial Tears Ophth Soln 15 Ml Bottle EACH EYE QID PRN Dry Eye(s) Atorvastatin Calcium 20 mg 04/30/24 09:00 Atorvastatin 20 Mg Tablet BY MOUTH DAILY ROSY Clonidine HCl 1 patch 05/01/24 09:00 05/08/24 08:43 Clonidine 0.1 Mg/24 Hr Patch TRANSDERM 1 patch WEEKLY ROSY Administration Dextrose 12.5 gm 04/22/24 23:06 Dextrose 50% 25 Gm/50 Ml Syringe IV PUSH PRN PRN Hypoglycemia Protocol Enoxaparin Sodium 120 mg 05/09/24 06:00 05/10/24 05:51 Enoxaparin 120 Mg/0.8 Ml Syringe SUB-Q 120 mg Q24H ROSY Administration Glucagon 1 mg 04/22/24 23:06 Glucagon For Inj 1 Mg Vial IM PRN PRN Hypoglycemia Protocol Glucose 15 gm 04/22/24 23:06 Glucose Oral Gel 15 Gm Of Glucse In 37.5 Gm Tube PO PRN PRN Hypoglycemia Protocol Hydralazine HCl 10 mg 04/25/24 08:00 05/03/24 21:47 Hydralazine Hcl 20 Mg/Ml Vial IV PUSH 10 mg Q4H PRN Administration Blood Pressure - High Dextrose 1,000 mls @ 100 mls/hr 04/22/24 23:06 Dextrose 5% 1,000 Ml IVPB PRN PRN Hypoglycemia Protocol Sodium Chloride 1,000 mls @ 50 mls/hr 05/08/24 08:55 05/10/24 14:56 Normal Saline Iv IV CONT 50 mls/hr .Q20H ROSY Infusion Levofloxacin/Dextrose 750 mg in 150 mls @ 100 mls/hr 05/08/24 10:35 05/10/24 08:13 Levaquin 750 Mg/D5w 150 Ml IVPB 100 mls/hr Q48HR ROSY Administration Ipratropium [place] 0.5 mg 05/04/24 09:32 Ipratropium Br 0.02% Inh Soln 0.5 Mg/2.5 Ml Vial INHALATION Q6HRT PRN Shortness Of Breath Levalbuterol HCl 0.63 mg 05/04/24 09:32 Levalbuterol Neb 1.25 Mg/3 Ml INHALATION Q6HRT PRN Shortness Of Breath Lidocaine 1 patch 04/27/24 16:35 05/10/24 08:14 Lidocaine 5% Patch TRANSDERM 1 patch DAILY ROSY Administration Lorazepam 0.5 mg 04/27/24 19:01 05/10/24 00:28 Lorazepam Inj (*Crx) 2 Mg/Ml Vial IV PUSH 0.5 mg HS PRN Administration Sleep Morphine Sulfate 4 mg 04/22/24 22:02 05/10/24 16:56 Morphine Sulfate (*Crx) 4 Mg/Ml Inj IV PUSH 4 mg Q3H PRN Administration Pain Rated 7-10 Pantoprazole Sodium 40 mg 04/26/24 21:00 05/10/24 08:14 Pantoprazole Sodium Iv 40 Mg Vial IV PUSH 40 mg Q12HR ROSY Administration Sodium Chloride 10 ml 04/23/24 14:00 05/10/24 12:38 Central Line Flush IV PUSH 10 ml Q8HR ROSY Administration Sodium Chloride 20 ml 04/23/24 10:16 05/08/24 06:10 Central Line Flush IV PUSH 20 ml PRN PRN Administration after blood draws Sodium Chloride 10 ml 05/04/24 14:15 Central Line Flush IV PUSH PRN PRN with TPN bag changes Sodium Chloride 20 ml 05/04/24 14:15 05/05/24 06:18 Central Line Flush IV PUSH 20 ml PRN PRN Administration after blood draws Radiology Results: ITS Impressions Chest/Abdomen/Pelvis CTA 04/22/24 18:10 IMPRESSION: Perforated viscus with a large amount of free air and fluid, with mural thick ening in the distal stomach and multiple punctate foci of extraluminal air in this area for which site of perforation is suspected. Renal Ultrasound 04/24/24 11:58 IMPRESSION: Simple cyst in the left kidney upper pole. Other appearances are unremarkable. Lower Extremity CTA 05/02/24 16:36 IMPRESSION: 1. Scattered atherosclerotic plaque in the arteries of the left lower limb as detailed above without a discrete hemodynamic significant stenosis. Runoff below the ankle in the left posterior tibial artery this supplies the foot. Atretic distal peroneal and anterior tibial arteries with intraluminal contrast becoming indiscernible at the level of the ankle and with no appreciable contrast in the dorsalis pedis artery. Chest X-Ray 05/08/24 08:14 IMPRESSION: Early infiltrate suspected within the right mid to lower lung field, as detailed above. Chest/Abdomen/Pelvis CT 05/08/24 10:43 IMPRESSION: Findings suggesting air and possible fluid extending from the lumen of the antrum of the stomach, with a small anterior collection, as detailed above. Repeat evaluation with Gastrografin via the gastrostomy would provide additional information. Upper GI Series 05/09/24 09:31 IMPRESSION: 1. Ulcer of the gastric antrum with contained extraluminal contrast similar to 04/28/2024. The extraluminal contrast distribution is worse than typically seen after Clarence patch repair. Abdomen CT 05/09/24 15:27 IMPRESSION: Redemonstration of a tract extending from the posterior superior margin of the antrum of the stomach only partially filled with oral contrast, perhaps demonstrating early healing. Labs Labs: Laboratory Tests 05/10/24 05:57 WBC 9.5 Hgb 6.6 L* Hct 21.1 L Plt Count 175 Sodium 148 H Potassium 4.1 Chloride 119 H Carbon Dioxide 16 L Anion Gap 13 H BUN 95 H Creatinine 3.83 H Estim Creat Clear Calc 21 Estimated GFR 15 L Glucose 102 Calcium 8.2 L Phosphorus 5.5 H Total Bilirubin 0.7 AST 32 ALT 25 Alkaline Phosphatase 169 H Total Protein 5.0 L Albumin 2.5 L
--- NOTE | 2024-05-10 10:34 | P.PNIM_ITS ---
Progress Note: A&P Assessment and Plan (1) Perforated abdominal viscus: Code(s): R19.8 - Other specified symptoms and signs involving the digestive system and abdomen Status: Acute Assessment and Plan: * Septic shock in setting of peritonitis with perforated gastric ulcer: * Shock has resolved * Status post exploratory laparotomy with repair of antral gastric ulcer with omental Clarence patch, open gastrostomy tube * Surgery is following, restarted tube feedings today. * Zosyn and Diflucan stopped on 05/05/24. * Passed swallow study. * Await bowel function to return * Continue with PPI. * Pain regimen. * Monitor labs. * Upper GI series today showed: FINDINGS: There is an ulcer of the antrum of the stomach. There is contrast in a 6 x 3 cm area outside the expected ellison of the stomach. IMPRESSION: 1. Ulcer of the gastric antrum with contained extraluminal contrast similar to 04/28/2024. The extraluminal contrast distribution is worse than typically seen after Clarence patch repair. * CT abdomen without contrast, give water soluble contrast through G tube only showed: FINDINGS/OBSERVATIONS: Visualized lower thorax: Redemonstration of small bilateral pleural effusions (left greater than right) w ith adjacent consolidation in the left lung base. The heart is of normal size, without pericardial effusion. Within the abdomen: Redemonstration of the gastrostomy tube opacifying the stomach with oral contrast. As best visualized on sagittal view the air opacified tract extending from the posterior superior margin of the stomach is again visualized, partially filled with oral contrast, but appears to occlude after the first (approximately) 3 cm. After the initial 3 cm, there is still a collection present, but without contrast within the cavity. This cavity measures 2.6 x 2.0 x 2.0 cm, and contains only air. Perhaps dedicated imaging of the bulb on the left side of the patient may be performed (not included on either the images this morning or the CT examination performed at 2:24 PM) to ascertain the presence of contrast evacuated by the drain. Remainder of the examination is otherwise unchanged. IMPRESSION: Redemonstration of a tract extending from the posterior superior margin of the antrum of the stomach only partially filled with oral contrast, perhaps demonstrating early healing. (2) Pneumonia: Code(s): J18.9 - Pneumonia, unspecified organism Status: Acute Assessment and Plan: * Chest X-ray showed: FINDINGS Left upper extremity PICC line with its tip projecting over the right atrium. The remainder of the cardiomediastinal silhouette is otherwise unremarkable. Interval development of air bronchograms within the right mid to lower lung field, for which an early infiltrate is suspected. The remainder of the lungs are clear. IMPRESSION: Early infiltrate suspected within the right mid to lower lung field, as detailed above. * Continue Levofloxacin 750 mg IVPB q 48. * Instructed to continue using incentive spirometer, air movement is improving. * [place] * Nebs PRN. * WBC improving from 12.8>10.1>9.7. (3) Malnutrition following gastrointestinal surgery: Code(s): K91.2 - Postsurgical malabsorption, not elsewhere classified Status: Acute Assessment and Plan: * Passed swallow study. * Surgery restarted tube feedings today. * NS @ 50ml/hr * Surgery following. (4) Acute kidney injury superimposed on stage 3b chronic kidney disease: Code(s): N17.9 - Acute kidney failure, unspecified; N18.32 - Chronic kidney disease, stage 3b Status: Acute Assessment and Plan: * Avoid nephrotoxins * BUN 95, Creatinine 3.83, & GFR 15 * NS@ 50 ml/hr. * Nephrology following * Renal ultrasound was unremarkable for any acute issues. * Monitor labs. (5) Anemia: Code(s): D64.9 - Anemia, unspecified Status: Acute Assessment and Plan: * H&H 6.7/21.2 * Patient received 1 unit of PRBC's. * Post transfusion H&H was 7.4/23.3. * CBC at 22:00. * Trend CBC. (6) HTN (hypertension): Code(s): I10 - Essential (primary) hypertension Status: Acute Assessment and Plan: * Blood pressure 141/50. * Continue Clonidine patch and Hydralazine PRN. (7) Generalized weakness: Code(s): R53.1 - Weakness Status: Acute Assessment and Plan: * PT/OT (8) Hypokalemia: Code(s): E87.6 - Hypokalemia Status: Acute Assessment and Plan: * Potassium 4.1. * Monitor levels. Plan 78-year-old male with a past medical history of the osteoarthritis on chronic NSAID therapy, hyperlipidemia, hypertension, prior umbilical hernia repair, perforated appendix status post resection 2022 who presented to the ER via EMS with 3 days of sharp radiating abdominal pain. CT demonstrated perforated viscus with large amount of free air and fluid with mural thickening of the distal stomach and multiple punctate foci of extraluminal air with suspected perforated ulcer. Patient was evaluated by the surgeon in the ER was taken directly to the OR. Status post exploratory laparotomy with repair of antral gastric ulcer with omental Clarence patch. Placement of open gastrostomy tube on 04/22/2024. Patient was admitted to the ICU with shock requiring pressor support, intubated. Was eventually extubated on 04/25/2024. He was off pressor support on 04/24/2024. Has been on Zosyn and Diflucan as per surgery, stopped 05/05/24. Subjective Date/time seen: 05/10/24 10:34 Interval history: Patient lying in bed with hob elevated. Daughter at bedside. Patient denies chest pain, palpitations, headache, dizziness, nausea, or vomiting. Patient reports abdominal tenderness that is a 7 and frequent. Review of Systems Review of Systems: All systems reviewed & are unremarkable except as noted in HPI and below Exam Const: General: no acute distress and uncomfortable Resp: Effort & Inspection: normal respiratory effort Other: Slightly diminished, air movement improving. Cardio: Rate: regular rate Rhythm: regular rhythm Other: Telemetry SR 85. GI: GI Palp: Yes Tenderness to palpation present (GI) Auscultation: normal bowel sounds Other: Gastrostomy tube in place with dry gauze dressing and skin around the G-tube without erythema or drainage. Incision dry with steri strips intact, no erythema. Slightly distended. Neuro: Speech: normal speech Extrem: General: pedal edema bilaterally 2+ Psych: Mental Status: mental status grossly normal Affect: normal affect Objective Data Vital Signs Vital Signs: Vital Signs - 24 hr 05/09/24 12:00 05/09/24 14:00 05/09/24 16:00 Temperature 98.1 F Pulse Rate 90 91 89 Respiratory Rate 18 Blood Pressure 126/47 L Pulse Oximetry 99 05/09/24 19:20 05/09/24 20:00 05/10/24 00:00 Temperature 98.9 F Pulse Rate 89 87 89 Respiratory Rate 18 Blood Pressure 143/50 H Pulse Oximetry 97 05/10/24 04:00 05/10/24 04:43 05/10/24 10:05 Temperature 97.8 F 97.7 F Pulse Rate 87 87 86 Respiratory Rate 18 16 Blood Pressure 124/62 123/49 L Pulse Oximetry 95 98 05/10/24 10:20 Temperature 97.9 F Pulse Rate 85 Respiratory Rate 16 Blood Pressure 125/67 Pulse Oximetry 100 Intake/Output Intake/Output: Intake & Output 05/07/24 05/08/24 05/09/24 05/10/24 23:59 23:59 23:59 23:59 Intake Total 2692 1819 1999 1000 Output Total 529 641 5421 657 Balance 2026 131 287 343 Meds/Results Medications: Active Medications Generic Name Dose Route Start Last Admin Trade Name Freq PRN Reason Stop Dose Admin Acetaminophen 650 mg 04/26/24 22:19 04/26/24 22:57 Acetaminophen 650 Mg Suppository RECTAL 650 mg Q6H PRN Administration Mild Pain (1-3) or Fever Acetaminophen 650 mg 05/05/24 10:27 05/08/24 12:38 Acetaminophen Elixir 325 Mg/10.15 Ml Udc PO 650 mg Q6H PRN Administration Mild Pain (1-3) or Fever Artificial Tears 1 drop 04/27/24 08:37 Artificial Tears Ophth Soln 15 Ml Bottle EACH EYE QID PRN Dry Eye(s) Atorvastatin Calcium 20 mg 04/30/24 09:00 Atorvastatin 20 Mg Tablet BY MOUTH DAILY ROSY Clonidine HCl 1 patch 05/01/24 09:00 05/08/24 08:43 Clonidine 0.1 Mg/24 Hr Patch TRANSDERM 1 patch WEEKLY ROSY Administration Dextrose 12.5 gm 04/22/24 23:06 Dextrose 50% 25 Gm/50 Ml Syringe IV PUSH PRN PRN Hypoglycemia Protocol Enoxaparin Sodium 120 mg 05/09/24 06:00 05/10/24 05:51 Enoxaparin 120 Mg/0.8 Ml Syringe SUB-Q 120 mg Q24H ROSY Administration Glucagon 1 mg 04/22/24 23:06 Glucagon For Inj 1 Mg Vial IM PRN PRN Hypoglycemia Protocol Glucose 15 gm 04/22/24 23:06 Glucose Oral Gel 15 Gm Of Glucse In 37.5 Gm Tube PO PRN PRN Hypoglycemia Protocol Hydralazine HCl 10 mg 04/25/24 08:00 05/03/24 21:47 Hydralazine Hcl 20 Mg/Ml Vial IV PUSH 10 mg Q4H PRN Administration Blood Pressure - High Dextrose 1,000 mls @ 100 mls/hr 04/22/24 23:06 Dextrose 5% 1,000 Ml IVPB PRN PRN Hypoglycemia Protocol Dextrose 1,000 mls @ 50 mls/hr 04/25/24 10:46 Dextrose 10% IV CONT .Q20H PRN if PN is interrupted Sodium Chloride 1,000 mls @ 100 mls/hr 05/08/24 08:55 05/10/24 05:50 Normal Saline Iv IV CONT 100 mls/hr .Q10H ROSY Administration Levofloxacin/Dextrose 750 mg in 150 mls @ 100 mls/hr 05/08/24 10:35 05/10/24 08:13 Levaquin 750 Mg/D5w 150 Ml IVPB 100 mls/hr Q48HR ROSY Administration Sodium Chloride 250 mls @ 30 mls/hr 05/10/24 07:40 05/10/24 09:47 Normal Saline Iv IV CONT 05/10/24 15:59 30 mls/hr .Q8H20M STA Administration Ipratropium [place] 0.5 mg 05/04/24 09:32 Ipratropium Br 0.02% Inh Soln 0.5 Mg/2.5 Ml Vial INHALATION Q6HRT PRN Shortness Of Breath Levalbuterol HCl 0.63 mg 05/04/24 09:32 Levalbuterol Neb 1.25 Mg/3 Ml INHALATION Q6HRT PRN Shortness Of Breath Lidocaine 1 patch 04/27/24 16:35 05/10/24 08:14 Lidocaine 5% Patch TRANSDERM 1 patch DAILY ROSY Administration Lorazepam 0.5 mg 04/27/24 19:01 05/10/24 00:28 Lorazepam Inj (*Crx) 2 Mg/Ml Vial IV PUSH 0.5 mg HS PRN Administration Sleep Morphine Sulfate 4 mg 04/22/24 22:02 05/10/24 00:30 Morphine Sulfate (*Crx) 4 Mg/Ml Inj IV PUSH 4 mg Q3H PRN Administration Pain Rated 7-10 Pantoprazole Sodium 40 mg 04/26/24 21:00 05/10/24 08:14 Pantoprazole Sodium Iv 40 Mg Vial IV PUSH 40 mg Q12HR ROSY Administration Sodium Chloride 10 ml 04/23/24 14:00 05/10/24 05:50 Central Line Flush IV PUSH 10 ml Q8HR ROSY Administration Sodium Chloride 20 ml 04/23/24 10:16 05/08/24 06:10 Central Line Flush IV PUSH 20 ml PRN PRN Administration after blood draws Sodium Chloride 10 ml 05/04/24 14:15 Central Line Flush IV PUSH PRN PRN with TPN bag changes Sodium Chloride 20 ml 05/04/24 14:15 05/05/24 06:18 Central Line Flush IV PUSH 20 ml PRN PRN Administration after blood draws Radiology Results: ITS Impressions Chest/Abdomen/Pelvis CTA 04/22/24 18:10 IMPRESSION: Perforated viscus with a large amount of free air and fluid, with mural thickening in the distal stomach and multiple punctate foci of extraluminal air in this area for which site of perforation is suspected. Renal Ultrasound 04/24/24 11:58 IMPRESSION: Simple cyst in the left kidney upper pole. Other appearances are unremarkable. Lower Extremity CTA 05/02/24 16:36 IMPRESSION: 1. Scattered atherosclerotic plaque in the arteries of the left lower limb as detailed above without a discrete hemodynamic significant stenosis. Runoff below the ankle in the left posterior tibial artery this supplies the foot. Atretic distal peroneal and anterior tibial arteries with intraluminal contrast becoming indiscernible at the level of the ankle and with no appreciable contrast in the dorsalis pedis artery. Chest X-Ray 05/08/24 08:14 IMPRESSION: Early infiltrate suspected within the right mid to lower lung field, as detailed above. Chest/Abdomen/Pelvis CT 05/08/24 10:43 IMPRESSION: Findings suggesting air and possible fluid extending from the lumen of the antrum of the stomach, with a small anterior collection, as detailed above. Repeat evaluation with Gastrografin via the gastrostomy would provide additional information. Upper GI Series 05/09/24 09:31 IMPRESSION: 1. Ulcer of the gastric antrum with contained extraluminal contrast similar to 04/28/2024. The extraluminal contrast distribution is worse than typically seen after Clarence patch repair. Abdomen CT 05/09/24 15:27 IMPRESSION: Redemonstration of a tract extending from the posterior superior margin of the antrum of the stomach only partially filled with oral contrast, perhaps demonstrating early healing. Labs Labs: Laboratory Results - last 24 hr 05/09/24 05/09/24 05/09/24 11:51 17:42 23:19 WBC RBC Hgb Hct MCV MCH MCHC RDW Plt Count MPV Immature Gran % (Auto) Neut % (Auto) Lymph % (Auto) [place] % (Auto) Eos % (Auto) Baso % (Auto) Lymph # (Auto) [place] # (Auto) Eos # (Auto) Baso # (Auto) Abs Immat Gran (auto) Absolute Neuts (auto) Absolute Nucleated RBC Nucleated RBC % Sodium Potassium Chloride Carbon Dioxide Anion Gap BUN Creatinine Estim Creat Clear Calc Estimated GFR Glucose POC Capillary Glucose 124 H 110 H 95 Calcium Phosphorus Total Bilirubin AST ALT Alkaline Phosphatase Total Protein Albumin Blood Type Antibody Screen Crossmatch 05/10/24 05/10/24 05/10/24 05:57 05:58 07:23 WBC 9.5 9.7 RBC 2.28 L 2.30 L Hgb 6.6 L* 6.7 L* Hct 21.1 L 21.2 L MCV 92.5 92.2 MCH 28.9 29.1 MCHC 31.3 L 31.6 L RDW 16.0 H 15.9 H Plt Count 175 182 MPV 12.9 H 13.0 H Immature Gran % (Auto) 1.5 H Neut % (Auto) 80.6 H Lymph % (Auto) 7.2 L [place] % (Auto) 9.9 H Eos % (Auto) 0.5 Baso % (Auto) 0.3 Lymph # (Auto) 0.68 L [place] # (Auto) 0.9 H Eos # (Auto) 0.1 Baso # (Auto) 0.0 Abs Immat Gran (auto) 0.14 H Absolute Neuts (auto) 7.6 H Absolute Nucleated RBC 0.000 Nucleated RBC % 0.0 Sodium 148 H Potassium 4.1 Chloride 119 H Carbon Dioxide 16 L Anion Gap 13 H BUN 95 H Creatinine 3.83 H Estim Creat Clear Calc 21 Estimated GFR 15 L Glucose 102 POC Capillary Glucose 100 Calcium 8.2 L Phosphorus 5.5 H Total Bilirubin 0.7 AST 32 ALT 25 Alkaline Phosphatase 169 H Total Protein 5.0 L Albumin 2.5 L Blood Type Antibody Screen Crossmatch 05/10/24 07:47 WBC RBC Hgb Hct MCV MCH MCHC RDW Plt Count MPV Immature Gran % (Auto) Neut % (Auto) Lymph % (Auto) [place] % (Auto) Eos % (Auto) Baso % (Auto) Lymph # (Auto) [place] # (Auto) Eos # (Auto) Baso # (Auto) Abs Immat Gran (auto) Absolute Neuts (auto) Absolute Nucleated RBC Nucleated RBC % Sodium Potassium Chloride Carbon Dioxide Anion Gap BUN Creatinine Estim Creat Clear Calc Estimated GFR Glucose POC Capillary Glucose Calcium Phosphorus Total Bilirubin AST ALT Alkaline Phosphatase Total Protein Albumin Blood Type A Positive Antibody Screen Negative Crossmatch See Detail Quality VTE Prophylaxis VTE prophylaxis: mechanical ordered and pharmacologic ordered
[2024-05-10 11:43] LABS: Glucose Point of Care 103 mg/dl (65-105)
--- NOTE | 2024-05-10 13:19 | PCNFU ---
Nutrition Follow-Up Complete: Inadequate oral intake related to altered GI function as evidenced by need for full TPN Goal: Meet estimated nutrition needs We will continue current goal-nutrition currently on hold. Pt current nutrition is NPO. Last recorded weight is 127.7 kg, up from 123 kg on admit. Bowel Motility: +BM rpeorted 05/10 Labs Reviewed:Glu 148, BUN 95, Cr 3.83, GFR 15, Hgb 6.7, Hct 21.2, Alb 2.5 Meds Noted: NS, Protonix. Skin: WNL Additional Notes: Patient remains NPO. Spoke with JOSH Borja today regarding nutrition. Patient had Upper GI series on 05/09. Surgery plans to see patient today and advance diet orders. Monitoring diet orders, GI function, plan of care, weights, labs, orders every 3 days.
--- NOTE | 2024-05-10 13:57 | P.PNGS_ITS ---
Progress Note: A&P Assessment and Plan (1) Perforated gastric ulcer: Onset Date: 04/2024 Qualifiers: Gastric ulcer chronicity: acute Qualified Code(s): K25.1 - Acute gastric ulcer with perforation Code(s): K25.5 - Chronic or unspecified gastric ulcer with perforation Status: Acute Assessment and Plan: WBC normalized and no fevers since the weekend. It does not appear that the patient has a significant gastric leak and he is no longer having any fevers and his leukocytosis resolved. We will try to restart his tube feedings today and advance to goal rate as tolerated. Will also allow him to have sips of water while advancing his diet. Will turn his IV fluids down to 50 mL/hr for now while advancing his tube feedings. Continue to monitor the ELSA drains and their output. His hemoglobin dropped today from 8.3 to 6.7. He doesn't have any signs of act miranda bleeding at this time. We would recommend to continue his therapeutic Lovenox for now, especially as his left foot is cold again today. He is not having any pain or paresthesia in his left lower extremity and still has good ROM. 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 With his renal failure, it would be ideal to avoid another contrast study unless absolutely necessary. Will keep him on the Lovenox for now and continue to monitor closely. (2) Malnutrition following gastrointestinal surgery: Code(s): K91.2 - Postsurgical malabsorption, not elsewhere classified Status: Acute Assessment and Plan: Will resume tube feeding and advance as tolerated over the next 24 hours to get back to his goal rate of 60 mL/hr. (3) Acute kidney injury superimposed on stage 3b chronic kidney disease: Code(s): N17.9 - Acute kidney failure, unspecified; N18.32 - Chronic kidney disease, stage 3b Status: Acute Assessment and Plan: Creatinine still at 3.83, will decrease IV fluids while restarting his tube feedings. His urine output has picked up some over the past 24 hours. Nephrology is following. Plan I have discussed the patient's case and plan of care with Dr. Moreno. Subjective Subjective Date/Time Seen: 05/10/24 13:57 Post Op day: 18 Patient reports: no new complaints, flatus, bowel movement and afebrile Interval history: Patient sitting in the chair this afternoon and feeling well. His only complaint of pain today was his shoulder and lower back pain, and he feels better being up in the chair. He also feels the Lidocaine patch is helping. He denies any abdominal pain, nausea, shortness of breath or cough. He denies pain in his lower extremities or any numbness/tingling. He has been afebrile for a few days. WBC count down to normal today, but his hemoglobin dropped from 8.3 to 6.7. He received PRBCs this morning. He has had many bowel movements in the past 24 hours but no dark or melanotic stools. He still has a Bowman in place with clear yellow urine draining. Exam Const: General: comfortable and no acute distress Orientation/consciousness: patient oriented x3 GI: Auscultation: normal bowel sounds Other: Abdomen mildly distended and soft. He has mild tenderness near gastrostomy tube in the LUQ and RUQ. No guarding. ELSA drains x 2, the RUQ drain has scant serous output, the LUQ drain has scant cloudy yellow/[place] output. Gastrostomy tube in place with dry gauze dressing and skin around the G-tube without erythema or drainage. Incision dry with steri strips intact, no erythema. Urinary Catheter: Urinary Catheter: patent and draining and urine clear (yellow) Neuro: General: moves all extremities Extrem: General: no calf tenderness bilaterally and edema (bilateral lower extremity 2-3+ pitting edema) Other: Left lower extremity is cold again on exam and unable to palpate pedal pulse on left, he has no pain in the left leg and sensation is intact, he is able to wiggle his toes and flex/extend his left ankle. Right lower extremity is warm with normal color and good capillary refill. His skin is pale bilaterally. Objective Data Vital Signs Vital Signs: Vital Signs - 24 hr 05/09/24 14:00 05/09/24 16:00 05/09/24 19:20 Temperature 98.1 F 98.9 F Pulse Rate 91 89 89 Respiratory Rate 18 18 Blood Pressure 126/47 L 143/50 H Pulse Oximetry 99 97 Oxygen Delivery 05/09/24 20:00 05/10/24 00:00 05/10/24 04:00 Temperature Pulse Rate 87 89 87 Respiratory Rate Blood Pressure Pulse Oximetry Oxygen Delivery 05/10/24 04:43 05/10/24 10:05 05/10/24 10:20 Temperature 97.8 F 97.7 F 97.9 F Pulse Rate 87 86 85 Respiratory Rate 18 16 16 Blood Pressure 124/62 123/49 L 125/67 Pulse Oximetry 95 98 100 Oxygen Delivery 05/10/24 11:20 05/10/24 11:48 05/10/24 12:20 Temperature 98.1 F 98.6 F Pulse Rate 84 90 Respiratory Rate 16 18 Blood Pressure 132/51 L 121/61 Pulse Oximetry 97 97 Oxygen Delivery Room Air 05/10/24 13:07 Temperature 98.0 F Pulse Rate 88 Respiratory Rate 16 Blood Pressure 141/50 H Pulse Oximetry 96 Oxygen Delivery Intake/Output Intake/Output: Intake & Output 05/07/24 05/08/24 05/09/24 05/10/24 23:59 23:59 23:59 23:59 Intake Total 2692 1819 2000 1350 Output Total 290 153 7398 1107 Balance 2026 1254 940 243 Meds/Results Medications: Active Medications Generic Name Dose Route Start Last Admin Trade Name Freq PRN Reason Stop Dose Admin Acetaminophen 650 mg 04/26/24 22:19 04/26/24 22:57 Acetaminophen 650 Mg Suppository RECTAL 650 mg Q6H PRN Administration Mild Pain (1-3) or Fever Acetaminophen 650 mg 05/05/24 10:27 05/08/24 12:38 Acetaminophen Elixir 325 Mg/10.15 Ml Udc PO 650 mg Q6H PRN Administration Mild Pain (1-3) or Fever Artificial Tears 1 drop 04/27/24 08:37 Artificial Tears Ophth Soln 15 Ml Bottle EACH EYE QID PRN Dry Eye(s) Atorvastatin Calcium 20 mg 04/30/24 09:00 Atorvastatin 20 Mg Tablet BY MOUTH DAILY ROSY Clonidine HCl 1 patch 05/01/24 09:00 05/08/24 08:43 Clonidine 0.1 Mg/24 Hr Patch TRANSDERM 1 patch WEEKLY ROSY Administration Dextrose 12.5 gm 04/22/24 23:06 Dextrose 50% 25 Gm/50 Ml Syringe IV PUSH PRN PRN Hypoglycemia Protocol Enoxaparin Sodium 120 mg 05/09/24 06:00 05/10/24 05:51 Enoxaparin 120 Mg/0.8 Ml Syringe SUB-Q 120 mg Q24H ROSY Administration Glucagon 1 mg 04/22/24 23:06 Glucagon For Inj 1 Mg Vial IM PRN PRN Hypoglycemia Protocol Glucose 15 gm 04/22/24 23:06 Glucose Oral Gel 15 Gm Of Glucse In 37.5 Gm Tube PO PRN PRN Hypoglycemia Protocol Hydralazine HCl 10 mg 04/25/24 08:00 05/03/24 21:47 Hydralazine Hcl 20 Mg/Ml Vial IV PUSH 10 mg Q4H PRN Administration Blood Pressure - High Dextrose 1,000 mls @ 100 mls/hr 04/22/24 23:06 Dextrose 5% 1,000 Ml IVPB PRN PRN Hypoglycemia Protocol Dextrose 1,000 mls @ 50 mls/hr 04/25/24 10:46 Dextrose 10% IV CONT .Q20H PRN if PN is interrupted Sodium Chloride 1,000 mls @ 100 mls/hr 05/08/24 08:55 05/10/24 05:50 Normal Saline Iv IV CONT 100 mls/hr .Q10H ROSY Administration Levofloxacin/Dextrose 750 mg in 150 mls @ 100 mls/hr 05/08/24 10:35 05/10/24 08:13 Levaquin 750 Mg/D5w 150 Ml IVPB 100 mls/hr Q48HR ROSY Administration Sodium Chloride 250 mls @ 30 mls/hr 05/10/24 07:40 05/10/24 09:47 Normal Saline Iv IV CONT 05/10/24 15:59 30 mls/hr .Q8H20M STA Administration Ipratropium [place] 0.5 mg 05/04/24 09:32 Ipratropium Br 0.02% Inh Soln 0.5 Mg/2.5 Ml Vial INHALATION Q6HRT PRN Shortness Of Breath Levalbuterol HCl 0.63 mg 05/04/24 09:32 Levalbuterol Neb 1.25 Mg/3 Ml INHALATION Q6HRT PRN Shortness Of Breath Lidocaine 1 patch 04/27/24 16:35 05/10/24 08:14 Lidocaine 5% Patch TRANSDERM 1 patch DAILY ROSY Administration Lorazepam 0.5 mg 04/27/24 19:01 05/10/24 00:28 Lorazepam Inj (*Crx) 2 Mg/Ml Vial IV PUSH 0.5 mg HS PRN Administration Sleep Morphine Sulfate 4 mg 04/22/24 22:02 05/10/24 12:37 Morphine Sulfate (*Crx) 4 Mg/Ml Inj IV PUSH 4 mg Q3H PRN Administration Pain Rated 7-10 Pantoprazole Sodium 40 mg 04/26/24 21:00 05/10/24 08:14 Pantoprazole Sodium Iv 40 Mg Vial IV PUSH 40 mg Q12HR ROSY Administration Sodium Chloride 10 ml 04/23/24 14:00 05/10/24 12:38 Central Line Flush IV PUSH 10 ml Q8HR ROSY Administration Sodium Chloride 20 ml 04/23/24 10:16 05/08/24 06:10 Central Line Flush IV PUSH 20 ml PRN PRN Administration after blood draws Sodium Chloride 10 ml 05/04/24 14:15 Central Line Flush IV PUSH PRN PRN with TPN bag changes Sodium Chloride 20 ml 05/04/24 14:15 05/05/24 06:18 Central Line Flush IV PUSH 20 ml PRN PRN Administration after blood draws Radiology Results: ITS Impressions Chest/Abdomen/Pelvis CTA 04/22/24 18:10 IMPRESSION: Perforated viscus with a large amount of free air and fluid, with mural thickening in the distal stomach and multiple punctate foci of extraluminal air in this area for which site of perforation is suspected. Renal Ultrasound 04/24/24 11:58 IMPRESSION: Simple cyst in the left kidney upper pole. Other appearances are unremarkable. Lower Extremity CTA 05/02/24 16:36 IMPRESSION: 1. Scattered atherosclerotic plaque in the arteries of the left lower limb as detailed above without a discrete hemodynamic significant stenosis. Runoff below the ankle in the left posterior tibial artery this supplies the foot. Atretic distal peroneal and anterior tibial arteries with intraluminal contrast becoming indiscernible at the level of the ankle and with no appreciable contrast in the dorsalis pedis artery. Chest X-Ray 05/08/24 08:14 IMPRESSION: Early infiltrate suspected within the right mid to lower lung field, as detailed above. Chest/Abdomen/Pelvis CT 05/08/24 10:43 IMPRESSION: Findings suggesting air and possible fluid extending from the lumen of the antrum of the stomach, with a small anterior collection, as detailed above. Repeat evaluation with Gastrografin via the gastrostomy would provide additional information. Upper GI Series 05/09/24 09:31 IMPRESSION: 1. Ulcer of the gastric antrum with contained extraluminal contrast similar to 04/28/2024. The extraluminal contrast distribution is worse than typically seen after Clarence patch repair. Abdomen CT 05/09/24 15:27 IMPRESSION: Redemonstration of a tract extending from the posterior superior margin of the antrum of the stomach only partially filled with oral contrast, perhaps demonstrating early healing. Labs Labs: Laboratory Results - last 24 hr 05/09/24 05/09/24 05/10/24 17:42 23:19 05:57 WBC 9.5 RBC 2.28 L Hgb 6.6 L* Hct 21.1 L MCV 92.5 MCH 28.9 MCHC 31.3 L RDW 16.0 H Plt Count 175 MPV 12.9 H Immature Gran % (Auto) 1.5 H Neut % (Auto) 80.6 H Lymph % (Auto) 7.2 L [place] % (Auto) 9.9 H Eos % (Auto) 0.5 Baso % (Auto) 0.3 Lymph # (Auto) 0.68 L [place] # (Auto) 0.9 H Eos # (Auto) 0.1 Baso # (Auto) 0.0 Abs Immat Gran (auto) 0.14 H Absolute Neuts (auto) 7.6 H Absolute Nucleated RBC 0.000 Nucleated RBC % 0.0 Sodium 148 H Potassium 4.1 Chloride 119 H Carbon Dioxide 16 L Anion Gap 13 H BUN 95 H Creatinine 3.83 H Estim Creat Clear Calc 21 Estimated GFR 15 L Glucose 102 POC Capillary Glucose 110 H 95 Calcium 8.2 L Phosphorus 5.5 H Total Bilirubin 0.7 AST 32 ALT 25 Alkaline Phosphatase 169 H Total Protein 5.0 L Albumin 2.5 L Blood Type Antibody Screen Crossmatch 05/10/24 05/10/24 05/10/24 05:58 07:23 07:47 WBC 9.7 RBC 2.30 L Hgb 6.7 L* Hct 21.2 L MCV 92.2 MCH 29.1 MCHC 31.6 L RDW 15.9 H Plt Count 182 MPV 13.0 H Immature Gran % (Auto) Neut % (Auto) Lymph % (Auto) [place] % (Auto) Eos % (Auto) Baso % (Auto) Lymph # (Auto) [place] # (Auto) Eos # (Auto) Baso # (Auto) Abs Immat Gran (auto) Absolute Neuts (auto) Absolute Nucleated RBC Nucleated RBC % Sodium Potassium Chloride Carbon Dioxide Anion Gap BUN Creatinine Estim Creat Clear Calc Estimated GFR Glucose POC Capillary Glucose 100 Calcium Phosphorus Total Bilirubin AST ALT Alkaline Phosphatase Total Protein Albumin Blood Type A Positive Antibody Screen Negative Crossmatch See Detail 05/10/24 11:41 WBC RBC Hgb Hct MCV MCH MCHC RDW Plt Count MPV Immature Gran % (Auto) Neut % (Auto) Lymph % (Auto) [place] % (Auto) Eos % (Auto) Baso % (Auto) Lymph # (Auto) [place] # (Auto) Eos # (Auto) Baso # (Auto) Abs Immat Gran (auto) Absolute Neuts (auto) Absolute Nucleated RBC Nucleated RBC % Sodium Potassium Chloride Carbon Dioxide Anion Gap BUN Creatinine Estim Creat Clear Calc Estimated GFR Glucose POC Capillary Glucose 103 Calcium Phosphorus Total Bilirubin AST ALT Alkaline Phosphatase Total Protein Albumin Blood Type Antibody Screen Crossmatch
[2024-05-10 15:34] LABS: Basophils Absolute Auto 0.1 K/mm3 (0.0-0.1); Basophils Percent Auto 0.5 % (0.2-1.2); Eosinophils Absolute Auto 0.1 K/mm3 (0-0.3); Eosinophils Percent Auto 0.9 % (0-4.4); Hematocrit 23.3 % (42.0-52.0); Hemoglobin 7.4 g/dL (14.0-18.0); Immature Granulocyte Absolute 0.14 K/mm3 (0.00-0.031); Immature Granulocyte Percent A 1.5 % (0-0.5); Immature Platelet Fraction Pct 8.6 % (0.9-11.2); Lymphocytes Absolute Auto 0.67 K/mm3 (0.9-3.2); Lymphocytes Percent Auto 7.3 % (18.3-44.2); Mean Corpuscular HGB Conc 31.8 g/dl (32-36); Mean Corpuscular Hemoglobin 29.4 pg (26-34); Mean Corpuscular Volume 92.5 fl (80-100); Mean Platelet Volume 13.4 fl (7.4-10.4); Monocytes Absolute Auto 0.8 K/mm3 (0.1-0.6); Monocytes Percent Auto 9.1 % (2.6-8.5); Neutrophils Absolute Auto 7.4 K/mm3 (1.3-6.7); Neutrophils Percent Auto 80.7 % (45.5-73.1); Platelet Count Result 161 k/mm3 (150-375); Red Blood Count 2.52 M/mm3 (4.6-6.20); Red Cell Distribution Width 15.9 % (11.5-14.5); White Blood Count 9.2 K/mm3 (4.5-10.0)
[2024-05-10 17:52] LABS: Glucose Point of Care 108 mg/dl (65-105)
[2024-05-10] MEDS: SODIUM CHLORIDE 0.9% IV 1,000 ML 50 ML IV CONT (21:15)
[2024-05-10 22:19] LABS: Basophils Percent Auto 0.5 % (0.2-1.2); Eosinophils Absolute Auto 0.1 K/mm3 (0-0.3); Eosinophils Percent Auto 1.3 % (0-4.4); Hematocrit 22.1 % (42.0-52.0); Hemoglobin 7.1 g/dL (14.0-18.0); Immature Granulocyte Absolute 0.17 K/mm3 (0.00-0.031); Immature Granulocyte Percent A 2.2 % (0-0.5); Lymphocytes Absolute Auto 0.66 K/mm3 (0.9-3.2); Lymphocytes Percent Auto 8.4 % (18.3-44.2); Mean Corpuscular HGB Conc 32.1 g/dl (32-36); Mean Corpuscular Hemoglobin 29.5 pg (26-34); Mean Corpuscular Volume 91.7 fl (80-100); Mean Platelet Volume 12.7 fl (7.4-10.4); Monocytes Absolute Auto 0.8 K/mm3 (0.1-0.6); Monocytes Percent Auto 9.6 % (2.6-8.5); Neutrophils Absolute Auto 6.2 K/mm3 (1.3-6.7); Platelet Count Result 164 k/mm3 (150-375); Red Blood Count 2.41 M/mm3 (4.6-6.20); Red Cell Distribution Width 15.8 % (11.5-14.5); White Blood Count 7.9 K/mm3 (4.5-10.0)
[2024-05-11] VITALS (14 sets, daily range): BP systolic 130–155; BP diastolic 50–58; PULSE 85–95; RESP 16; TEMP 36.4–37.2; O2SAT 96–100
[2024-05-11 00:03] LABS: Glucose Point of Care 125 mg/dl (65-105)
[2024-05-11] MEDS: ENOXAPARIN 120 MG/0.8 ML SYRINGE SUB-Q (06:29)
[2024-05-11] MEDS: CENTRAL LINE FLUSH 10 ML IV PUSH ×3 (06:29→21:02)
[2024-05-11 06:38] LABS: Glucose Point of Care 138 mg/dl (65-105)
--- NOTE | 2024-05-11 06:40 | P.PNIM_ITS ---
Progress Note: A&P Assessment and Plan (1) Perforated abdominal viscus: Code(s): R19.8 - Other specified symptoms and signs involving the digestive system and abdomen Status: Acute Assessment and Plan: * Septic shock in setting of peritonitis with perforated gastric ulcer: * Shock has resolved * Status post exploratory laparotomy with repair of antral gastric ulcer with omental Clarence patch, open gastrostomy tube * CT of the abdomen: Redemonstration of a tract extending from the posterior superior margin of the antrum of the stomach only partially filled with oral contrast, perhaps demonstrating early healing. * Surgery is following, restarted tube feedings today. * Zosyn and Diflucan stopped on 05/05/24. * Continue levofloxacin for now * Stop IV fluids for now * Passed swallow study. * Noted bowel movement with bowel sounds present * General surgery to advance diet * Continue with PPI. * Pain regimen. * Monitor labs. * Upper GI series today showed: FINDINGS: There is an ulcer of the antrum of the stomach. There is contrast in a 6 x 3 cm area outside the expected ellison of the stomach. (2) Pneumonia: Code(s): J18.9 - Pneumonia, unspecified organism Status: Acute Assessment and Plan: * Chest xray from 05/08/2024 showed early infiltrate * Continue levaquin for now * Encourage IS use * Cornet therapy * nebs PRN (3) Malnutrition following gastrointestinal surgery: Code(s): K91.2 - Postsurgical malabsorption, not elsewhere classified Status: Acute Assessment and Plan: * Passed swallow study. * Continue tube feedings * NS @ 50ml/hr * Passed swallow study * Advance deit per surgery's recommendations * Surgery following. (4) Acute kidney injury superimposed on stage 3b chronic kidney disease: Code(s): N17.9 - Acute kidney failure, unspecified; N18.32 - Chronic kidney disease, stage 3b Status: Acute Assessment and Plan: * Avoid nephrotoxins * BUN 95, Creatinine 3.83, & GFR 15 * today BUN 94, Creatinine is 3.75 * baseline most likely around 1.5 * NS@ 50 ml/hr stopped for now * Trial with lasix 40mg x 1 * Nephrology following * Renal ultrasound was unremarkable for any acute issues. * trend labs * Adjust therapy as indicated (5) Anemia: Code(s): D64.9 - Anemia, unspecified Status: Acute Assessment and Plan: * H&H 6.7/21.2 from 05/10/2024 * Patient received 1 unit of PRBC's. * Post transfusion H&H was 7.4/23.3. * Current H/H 6.8/21.8 * 1 unit PRBCs ordered * Could be related to fluid overload as well * Trend CBC. * transfuse if hgb <7.0 * Consider anemia labs if hgb remains low (6) HTN (hypertension): Code(s): I10 - Essential (primary) hypertension Status: Acute Assessment and Plan: * Blood pressure 127/51 * Continue Clonidine patch and Hydralazine PRN. * Trend BP * Adjust therapy as indicated (7) Generalized weakness: Code(s): R53.1 - Weakness Status: Acute Assessment and Plan: * PT/OT (8) Hypokalemia: Code(s): E87.6 - Hypokalemia Status: Acute Assessment and Plan: * Potassium 4.1. * Monitor levels. (9) Hypernatremia: Code(s): E87.0 - Hyperosmolality and hypernatremia Status: Acute Assessment and Plan: * Sodium slightly elevated at 149 * Continue to trend * Stop IV fluid Plan Discussed case with General surgery who was concerned of the fluid overload. Fluids have been turned off at this time. Tube feedings are to continued per their request. Diet to be advanced per General surgery as well. Continue to trend monitor labs and vital signs. Time Spent With Patient Time: 56 minutes Time with patient: Greater than 35 minutes Subjective Date/time seen: 05/11/24 06:40 Interval history: 05/11/2024 Patient is lying in bed is comfortable. Surgery was also present. Patient also did have a hemoglobin of 6.8 today. He denies any current chest pain, shortness a breath, nausea, vomiting, diarrhea constipation. Patient states that he feels pretty okay and pain is controlled. Will give 1 dose of Lasix to see if that will help with the bilateral lower extremities swelling and possibly the work of breathing. Since admission 78-year-old male with a past medical history of the osteoarthritis on chronic NSAID therapy, hyperlipidemia, hypertension, prior umbilical hernia repair, perforated appendix status post resection 2022 who presented to the ER via EMS with 3 days of sharp radiating abdominal pain. CT demonstrated perforated viscus with large amount of free air and fluid with mural thickening of the distal stomach and multiple punctate foci of extraluminal air with suspected perforated ulcer. Patient was evaluated by the surgeon in the ER was taken directly to the OR. Status post exploratory laparotomy with repair of antral gastric ulcer with omental Clarence patch. Placement of open gastrostomy tube on 04/22/2024. Patient was admitted to the ICU with shock requiring pressor support, intubated. Was eventually extubated on 04/25/2024. He was off pressor support on 04/24/2024. Has been on Zosyn and Diflucan as per surgery, stopped 05/05/24. Review of Systems Review of Systems: All systems reviewed & are unremarkable except as noted in HPI and below Exam Narrative: General: well-nourished, well-appearing 78-year-old male, sitting up in bed, comfortable, NARD Neuro: awake, alert and oriented x4, speech clear, no focal neuro deficits noted HEENMT: normocephalic, atraumatic, EOMI, sclerae anicteric, moist oral mucosa Respiratory: Clear per auscultation bilaterally however increased work of breathing Cardio: regular rate, regular rhythm with S1-S2 Abdomen: Soft and not tender to drains present and midline incision which is clean dry and intact and appears to be healing well with no signs of infection Extremities: 4+ pitting edema bilaterally temperature even bilaterally Skin: no rashes or lesions, warm and dry Psych: appropriate mood and affect, judgment and insight intact Objective Data Vital Signs Vital Signs: Vital Signs - 24 hr 05/10/24 08:00 05/10/24 08:00 05/10/24 10:05 Temperature 97.7 F Pulse Rate 86 86 Respiratory Rate 16 Blood Pressure 123/49 L Pulse Oximetry 98 Oxygen Delivery Room Air 05/10/24 10:20 05/10/24 11:20 05/10/24 11:48 Temperature 97.9 F 98.1 F Pulse Rate 85 84 Respiratory Rate 16 16 Blood Pressure 125/67 132/51 L Pulse Oximetry 100 97 Oxygen Delivery Room Air 05/10/24 12:00 05/10/24 12:20 05/10/24 13:07 Temperature 98.6 F 98.0 F Pulse Rate 96 90 88 Respiratory Rate 18 16 Blood Pressure 121/61 141/50 H Pulse Oximetry 97 96 Oxygen Delivery 05/10/24 13:08 05/10/24 20:00 05/10/24 21:16 Temperature 98.0 F 98.1 F Pulse Rate 88 85 87 Respiratory Rate 16 16 Blood Pressure 141/50 H 127/51 L Pulse Oximetry 96 97 Oxygen Delivery 05/11/24 00:00 05/11/24 04:00 Temperature Pulse Rate 87 85 Respiratory Rate Blood Pressure Pulse Oximetry Oxygen Delivery Intake/Output Intake/Output: Intake & Output 05/08/24 05/09/24 05/10/24 05/11/24 23:59 23:59 23:59 23:59 Intake Total 1819 1999 2350 Output Total 565 1060 1107 Balance 5306 795 5305 Meds/Results Medications: Active Medications Generic Name Dose Route Start Last Admin Trade Name Freq PRN Reason Stop Dose Admin Acetaminophen 650 mg 04/26/24 22:19 04/26/24 22:57 Acetaminophen 650 Mg Suppository RECTAL 650 mg Q6H PRN Administration Mild Pain (1-3) or Fever Acetaminophen 650 mg 05/05/24 10:27 05/08/24 12:38 Acetaminophen Elixir 325 Mg/10.15 Ml Udc PO 650 mg Q6H PRN Administration Mild Pain (1-3) or Fever Artificial Tears 1 drop 04/27/24 08:37 Artificial Tears Ophth Soln 15 Ml Bottle EACH EYE QID PRN Dry Eye(s) Atorvastatin Calcium 20 mg 04/30/24 09:00 Atorvastatin 20 Mg Tablet BY MOUTH DAILY ROSY Clonidine HCl 1 patch 05/01/24 09:00 05/08/24 08:43 Clonidine 0.1 Mg/24 Hr Patch TRANSDERM 1 patch WEEKLY ROSY Administration Dextrose 12.5 gm 04/22/24 23:06 Dextrose 50% 25 Gm/50 Ml Syringe IV PUSH PRN PRN Hypoglycemia Protocol Enoxaparin Sodium 120 mg 05/09/24 06:00 05/11/24 06:29 Enoxaparin 120 Mg/0.8 Ml Syringe SUB-Q 120 mg Q24H ROSY Administration Glucagon 1 mg 04/22/24 23:06 Glucagon For Inj 1 Mg Vial IM PRN PRN Hypoglycemia Protocol Glucose 15 gm 04/22/24 23:06 Glucose Oral Gel 15 Gm Of Glucse In 37.5 Gm Tube PO PRN PRN Hypoglycemia Protocol Hydralazine HCl 10 mg 04/25/24 08:00 05/03/24 21:47 Hydralazine Hcl 20 Mg/Ml Vial IV PUSH 10 mg Q4H PRN Administration Blood Pressure - High Dextrose 1,000 mls @ 100 mls/hr 04/22/24 23:06 Dextrose 5% 1,000 Ml IVPB PRN PRN Hypoglycemia Protocol Sodium Chloride 1,000 mls @ 50 mls/hr 05/08/24 08:55 05/10/24 21:15 Normal Saline Iv IV CONT 50 mls/hr .Q20H ROSY Administration Levofloxacin/Dextrose 750 mg in 150 mls @ 100 mls/hr 05/08/24 10:35 05/10/24 08:13 Levaquin 750 Mg/D5w 150 Ml IVPB 100 mls/hr Q48HR ROSY Administration Ipratropium [place] 0.5 mg 05/04/24 09:32 Ipratropium Br 0.02% Inh Soln 0.5 Mg/2.5 Ml Vial INHALATION Q6HRT PRN Shortness Of Breath Levalbuterol HCl 0.63 mg 05/04/24 09:32 Levalbuterol Neb 1.25 Mg/3 Ml INHALATION Q6HRT PRN Shortness Of Breath Lidocaine 1 patch 04/27/24 16:35 05/10/24 08:14 Lidocaine 5% Patch TRANSDERM 1 patch DAILY ROSY Administration Lorazepam 0.5 mg 04/27/24 19:01 05/10/24 23:50 Lorazepam Inj (*Crx) 2 Mg/Ml Vial IV PUSH 0.5 mg HS PRN Administration Sleep Morphine Sulfate 4 mg 04/22/24 22:02 05/10/24 23:55 Morphine Sulfate (*Crx) 4 Mg/Ml Inj IV PUSH 4 mg Q3H PRN Administration Pain Rated 7-10 Pantoprazole Sodium 40 mg 04/26/24 21:00 05/10/24 21:07 Pantoprazole Sodium Iv 40 Mg Vial IV PUSH 40 mg Q12HR ROSY Administration Sodium Chloride 10 ml 04/23/24 14:00 05/11/24 06:29 Central Line Flush IV PUSH 10 ml Q8HR ROSY Administration Sodium Chloride 20 ml 04/23/24 10:16 05/08/24 06:10 Central Line Flush IV PUSH 20 ml PRN PRN Administration after blood draws Sodium Chloride 10 ml 05/04/24 14:15 Central Line Flush IV PUSH PRN PRN with TPN bag changes Sodium Chloride 20 ml 05/04/24 14:15 05/05/24 06:18 Central Line Flush IV PUSH 20 ml PRN PRN Administration after blood draws Radiology Results: ITS Impressions Chest/Abdomen/Pelvis CTA 04/22/24 18:10 IMPRESSION: Perforated viscus with a large amount of free air and fluid, with mural thickening in the distal stomach and multiple punctate foci of extraluminal air in this area for which site of perforation is suspected. Renal Ultrasound 04/24/24 11:58 IMPRESSION: Simple cyst in the left kidney upper pole. Other appearances are unremarkable. Lower Extremity CTA 05/02/24 16:36 IMPRESSION: 1. Scattered atherosclerotic plaque in the arteries of the left lower limb as detailed above without a discrete hemodynamic significant stenosis. Runoff below the ankle in the left posterior tibial artery this supplies the foot. Atretic distal peroneal and anterior tibial arteries with intraluminal contrast becoming indiscernible at the level of the ankle and with no appreciable contrast in the dorsalis pedis artery. Chest X-Ray 05/08/24 08:14 IMPRESSION: Early infiltrate suspected within the right mid to lower lung field, as detailed above. Chest/Abdomen/Pelvis CT 05/08/24 10:43 IMPRESSION: Findings suggesting air and possible fluid extending from the lumen of the antrum of the stomach, with a small anterior collection, as detailed above. Repeat evaluation with Gastrografin via the gastrostomy would provide additional information. Upper GI Series 05/09/24 09:31 IMPRESSION: 1. Ulcer of the gastric antrum with contained extraluminal contrast similar to 04/28/2024. The extraluminal contrast distribution is worse than typically seen after Clarence patch repair. Abdomen CT 05/09/24 15:27 IMPRESSION: Redemonstration of a tract extending from the posterior superior margin of the antrum of the stomach only partially filled with oral contrast, perhaps demonstrating early healing. Labs Labs: Laboratory Results - last 24 hr 05/10/24 05/10/24 05/10/24 07:23 07:47 11:41 WBC 9.7 RBC 2.30 L Hgb 6.7 L* Hct 21.2 L MCV 92.2 MCH 29.1 MCHC 31.6 L RDW 15.9 H Plt Count 182 MPV 13.0 H Immature Gran % (Auto) Neut % (Auto) Lymph % (Auto) Bullock % (Auto) Eos % (Auto) Baso % (Auto) Lymph # (Auto) Bullock # (Auto) Eos # (Auto) Baso # (Auto) Abs Immat Gran (auto) Absolute Neuts (auto) Absolute Nucleated RBC Nucleated RBC % % Immature Plt Fraction POC Capillary Glucose 103 Blood Type A Positive Antibody Screen Negative Crossmatch See Detail 05/10/24 05/10/24 05/10/24 15:24 17:50 22:14 WBC 9.2 7.9 RBC 2.52 L 2.41 L Hgb 7.4 L 7.1 L Hct 23.3 L 22.1 L MCV 92.5 91.7 MCH 29.4 29.5 MCHC 31.8 L 32.1 RDW 15.9 H 15.8 H Plt Count 161 164 MPV 13.4 H 12.7 H Immature Gran % (Auto) 1.5 H 2.2 H Neut % (Auto) 80.7 H 78.0 H Lymph % (Auto) 7.3 L 8.4 L Bullock % (Auto) 9.1 H 9.6 H Eos % (Auto) 0.9 1.3 Baso % (Auto) 0.5 0.5 Lymph # (Auto) 0.67 L 0.66 L Bullock # (Auto) 0.8 H 0.8 H Eos # (Auto) 0.1 0.1 Baso # (Auto) 0.1 0.0 Abs Immat Gran (auto) 0.14 H 0.17 H Absolute Neuts (auto) 7.4 H 6.2 Absolute Nucleated RBC 0.000 0.000 Nucleated RBC % 0.0 0.0 % Immature Plt Fraction 8.6 POC Capillary Glucose 108 H Blood Type Antibody Screen Crossmatch 05/10/24 05/11/24 23:53 06:34 WBC RBC Hgb Hct MCV MCH MCHC RDW Plt Count MPV Immature Gran % (Auto) Neut % (Auto) Lymph % (Auto) Bullock % (Auto) Eos % (Auto) Baso % (Auto) Lymph # (Auto) Bullock # (Auto) Eos # (Auto) Baso # (Auto) Abs Immat Gran (auto) Absolute Neuts (auto) Absolute Nucleated RBC Nucleated RBC % % Immature Plt Fraction POC Capillary Glucose 125 H 138 H Blood Type Antibody Screen Crossmatch Quality VTE Prophylaxis VTE prophylaxis: mechanical ordered and pharmacologic ordered Hospitalist MIPS Advance Care Plan I have confirmed that the patient's Advanced Care Plan is present, code status is documented, or surrogate decision maker is listed in patient medical record.: Yes Medication Reconciliation I have utilized all available resources to obtain, update and review the patients current medications (includes all prescriptions, OTC, herbals, cannabis, and nutritional supplements).: Yes
[2024-05-11 07:12] LABS: Alanine Aminotransferase 34 U/L (6-50); Albumin Level 2.5 g/dL (3.5-5.1); Alkaline Phosphatase 181 U/L (38-126); Anion Gap 12 mmol/L (4-12); Aspartate Amino Transferase 48 U/L (17-59); Bilirubin,Total 0.7 mg/dL (0.2-1.3); Blood Urea Nitrogen 94 mg/dL (9-20); Calcium 8.2 mg/dL (8.4-10.2); Carbon Dioxide 18 mmol/L (22-30); Chloride 119 mmol/L (98-107); Estimated CRCL calculation 21 ml/min; Estimated Glomerular Filt Rate 16; Glucose 156 mg/dL (65-110); Phosphorus 5.2 mg/dL (2.5-4.5); Potassium 4.1 mmol/L (3.4-5.0); Sodium 149 mmol/L (137-145)
[2024-05-11 07:18] LABS: Basophils Percent Auto 0.4 % (0.2-1.2); Eosinophils Absolute Auto 0.2 K/mm3 (0-0.3); Eosinophils Percent Auto 1.9 % (0-4.4); Hematocrit 21.8 % (42.0-52.0); Immature Granulocyte Absolute 0.21 K/mm3 (0.00-0.031); Immature Granulocyte Percent A 2.7 % (0-0.5); Immature Platelet Fraction Pct 10.1 % (0.9-11.2); Lymphocytes Absolute Auto 0.71 K/mm3 (0.9-3.2); Lymphocytes Percent Auto 9.1 % (18.3-44.2); Mean Corpuscular HGB Conc 31.2 g/dl (32-36); Mean Corpuscular Hemoglobin 28.8 pg (26-34); Mean Corpuscular Volume 92.4 fl (80-100); Mean Platelet Volume 13.9 fl (7.4-10.4); Monocytes Absolute Auto 0.7 K/mm3 (0.1-0.6); Monocytes Percent Auto 8.5 % (2.6-8.5); Neutrophils Absolute Auto 6.1 K/mm3 (1.3-6.7); Neutrophils Percent Auto 77.4 % (45.5-73.1); Platelet Count Result 138 k/mm3 (150-375); Red Blood Count 2.36 M/mm3 (4.6-6.20); Red Cell Distribution Width 15.9 % (11.5-14.5); White Blood Count 7.8 K/mm3 (4.5-10.0)
[2024-05-11 08:47] LABS: Hemoglobin 6.8 g/dL (14.0-18.0)
[2024-05-11] MEDS: PANTOPRAZOLE SODIUM IV 40 MG VIAL IV PUSH ×2 (08:58→21:00)
[2024-05-11] MEDS: LIDOCAINE 5% PATCH 1 PATCH TRANSDERM (08:58)
[2024-05-11] MEDS: FUROSEMIDE INJ 40 MG/4 ML VIAL IV PUSH (10:39)
[2024-05-11] MEDS: SODIUM CHLORIDE 0.9% IV 250 ML 30 ML IV CONT (10:39)
[2024-05-11] MEDS: TUBING, BLOOD PLUM PUMP TUBING 1 EACH XX (11:00)
--- NOTE | 2024-05-11 12:11 | PM.PNGS ---
Progress Note: A&P Assessment and Plan (1) Perforated gastric ulcer: Onset Date: 04/2024 Qualifiers: Gastric ulcer chronicity: acute Qualified Code(s): K25.1 - Acute gastric ulcer with perforation Code(s): K25.5 - Chronic or unspecified gastric ulcer with perforation Status: Acute Assessment and Plan: Tolerating tube feedings at goal and WBC count remains normal. Will continue to monitor for now. Doubt that there is a significant gastric leak as he seems to be healing well. Will start him on a clear liquid diet today. Monitor ELSA drains, which I will flush this afternoon as there is minimal to no output over the past few days. He does appear more edematous today. IV fluids stopped this morning and hospitalist is diuresing him. His hemoglobin drifted down slightly again today to 6.8. He will get another blood transfusion today. No signs of active bleeding. Continue therapeutic dosed Lovenox for his peripheral arterial disease. (2) Malnutrition following gastrointestinal surgery: Code(s): K91.2 - Postsurgical malabsorption, not elsewhere classified Status: Acute Assessment and Plan: Tolerating tube feedings at goal. Continue for now wall trying to slowly advanced an oral diet. (3) Acute kidney injury superimposed on stage 3b chronic kidney disease: Code(s): N17.9 - Acute kidney failure, unspecified; N18.32 - Chronic kidney disease, stage 3b Status: Acute Assessment and Plan: Creatinine slightly improved today to 3.75. He is being diuresed today. Nephrology is following. Plan I have discussed the patient's case and plan of care with Dr. Moreno. Subjective Subjective Date/Time Seen: 05/11/24 12:11 Patient reports: no new complaints, flatus and bowel movement Interval history: Patient denies any abdominal pain this morning. He has no specific complaints. Sipping on water without any issues. Tube feeding has been advanced overnight and he has tolerated this well. He was increased to goal this morning. There are documented overnight bowel movements in the last 24 hours. Per nursing, he has only had 2-3 bowel movements yesterday during day shift and 1 overnight. Patient denies excessive diarrhea and reports 3 bowel movements yesterday. Still no blood noted in his stool or Bowman catheter. Hgb down to 6.8 again this morning. Hgb went up to 7.4 after 1 unit of blood yesterday. Exam Const: General: comfortable and no acute distress GI: Inspection: Abdominal wall edema (mild edema in bilateral flanks) Other: Abdomen mildly distended and soft. He has mild tenderness in the RUQ. No guarding. ELSA drains x 2, the RUQ drain has scant serous output, the LUQ drain with no output today. Gastrostomy tube in place with dry gauze dressing and skin around the G-tube without erythema or drainage. Incision dry with steri strips intact, no erythema. Urinary Catheter: Urinary Catheter: patent and draining and urine clear Extrem: General: no calf tenderness bilaterally and edema (bilateral lower extremity 3+ pitting edema) Objective Data Vital Signs Vital Signs: Vital Signs - 24 hr 05/10/24 12:20 05/10/24 13:07 05/10/24 13:08 Temperature 98.6 F 98.0 F 98.0 F Pulse Rate 90 88 88 Respiratory Rate 18 16 16 Blood Pressure 121/61 141/50 H 141/50 H Pulse Oximetry 97 96 96 Oxygen Delivery 05/10/24 20:00 05/10/24 21:16 05/11/24 00:00 Temperature 98.1 F Pulse Rate 85 87 87 Respiratory Rate 16 Blood Pressure 127/51 L Pulse Oximetry 97 Oxygen Delivery 05/11/24 04:00 05/11/24 06:00 05/11/24 08:00 Temperature 98.9 F Pulse Rate 85 85 Respiratory Rate 16 Blood Pressure 136/55 L Pulse Oximetry 96 Oxygen Delivery Room Air 05/11/24 10:55 05/11/24 11:10 Temperature 98.3 F 97.6 F Pulse Rate 87 87 Respiratory Rate 16 16 Blood Pressure 130/56 L 138/57 L Pulse Oximetry 97 96 Oxygen Delivery Intake/Output Intake/Output: Intake & Output 05/08/24 05/09/24 05/10/24 05/11/24 23:59 23:59 23:59 23:59 Intake Total 1819 2000 2350 707 Output Total 565 1060 1107 865 Balance 4042 089 8679 158 Meds/Results Medications: Active Medications Generic Name Dose Route Start Last Admin Trade Name Freq PRN Reason Stop Dose Admin Acetaminophen 650 mg 04/26/24 22:19 04/26/24 22:57 Acetaminophen 650 Mg Suppository RECTAL 650 mg Q6H PRN Administration Mild Pain (1-3) or Fever Acetaminophen 650 mg 05/05/24 10:27 05/08/24 12:38 Acetaminophen Elixir 325 Mg/10.15 Ml Udc PO 650 mg Q6H PRN Administration Mild Pain (1-3) or Fever Artificial Tears 1 drop 04/27/24 08:37 Artificial Tears Ophth Soln 15 Ml Bottle EACH EYE QID PRN Dry Eye(s) Atorvastatin Calcium 20 mg 04/30/24 09:00 Atorvastatin 20 Mg Tablet BY MOUTH DAILY ROSY Clonidine HCl 1 patch 05/01/24 09:00 05/08/24 08:43 Clonidine 0.1 Mg/24 Hr Patch TRANSDERM 1 patch WEEKLY ROSY Administration Dextrose 12.5 gm 04/22/24 23:06 Dextrose 50% 25 Gm/50 Ml Syringe IV PUSH PRN PRN Hypoglycemia Protocol Enoxaparin Sodium 120 mg 05/09/24 06:00 05/11/24 06:29 Enoxaparin 120 Mg/0.8 Ml Syringe SUB-Q 120 mg Q24H ROSY Administration Glucagon 1 mg 04/22/24 23:06 Glucagon For Inj 1 Mg Vial IM PRN PRN Hypoglycemia Protocol Glucose 15 gm 04/22/24 23:06 Glucose Oral Gel 15 Gm Of Glucse In 37.5 Gm Tube PO PRN PRN Hypoglycemia Protocol Hydralazine HCl 10 mg 04/25/24 08:00 05/03/24 21:47 Hydralazine Hcl 20 Mg/Ml Vial IV PUSH 10 mg Q4H PRN Administration Blood Pressure - High Dextrose 1,000 mls @ 100 mls/hr 04/22/24 23:06 Dextrose 5% 1,000 Ml IVPB PRN PRN Hypoglycemia Protocol Sodium Chloride 250 mls @ 30 mls/hr 05/11/24 09:13 05/11/24 10:39 Normal Saline Iv IV CONT 05/11/24 17:32 30 mls/hr .Q8H20M STA Administration Ipratropium [place] 0.5 mg 05/04/24 09:32 Ipratropium Br 0.02% Inh Soln 0.5 Mg/2.5 Ml Vial INHALATION Q6HRT PRN Shortness Of Breath Levalbuterol HCl 0.63 mg 05/04/24 09:32 Levalbuterol Neb 1.25 Mg/3 Ml INHALATION Q6HRT PRN Shortness Of Breath Levofloxacin 750 mg 05/12/24 09:00 Levofloxacin 750 Mg Tablet PO 05/14/24 09:01 Q48HR ROSY Lidocaine 1 patch 04/27/24 16:35 05/11/24 08:58 Lidocaine 5% Patch TRANSDERM 1 patch DAILY ROSY Administration Lorazepam 0.5 mg 04/27/24 19:01 05/10/24 23:50 Lorazepam Inj (*Crx) 2 Mg/Ml Vial IV PUSH 0.5 mg HS PRN Administration Sleep Miscellaneous Information 0 each 05/11/24 00:01 Please Renew Morphine If Still Needed XX 06/10/24 00:00 CLARIFY ROSY Morphine Sulfate 4 mg 04/22/24 22:02 05/10/24 23:55 Morphine Sulfate (*Crx) 4 Mg/Ml Inj IV PUSH 4 mg Q3H PRN Administration Pain Rated 7-10 Pantoprazole Sodium 40 mg 04/26/24 21:00 05/11/24 08:58 Pantoprazole Sodium Iv 40 Mg Vial IV PUSH 40 mg Q12HR ROSY Administration Sodium Chloride 10 ml 04/23/24 14:00 05/11/24 06:29 Central Line Flush IV PUSH 10 ml Q8HR ROSY Administration Sodium Chloride 20 ml 04/23/24 10:16 05/08/24 06:10 Central Line Flush IV PUSH 20 ml PRN PRN Administration after blood draws Sodium Chloride 10 ml 05/04/24 14:15 Central Line Flush IV PUSH PRN PRN with TPN bag changes Sodium Chloride 20 ml 05/04/24 14:15 05/05/24 06:18 Central Line Flush IV PUSH 20 ml PRN PRN Administration after blood draws Radiology Results: ITS Impressions Chest/Abdomen/Pelvis CTA 04/22/24 18:10 IMPRESSION: Perforated viscus with a large amount of free air and fluid, with mural thickening in the distal stomach and multiple punctate foci of extraluminal air in this area for which site of perforation is suspected. Renal Ultrasound 04/24/24 11:58 IMPRESSION: Simple cyst in the left kidney upper pole. Other appearances are unremarkable. Lower Extremity CTA 05/02/24 16:36 IMPRESSION: 1. Scattered atherosclerotic plaque in the arteries of the left lower limb as detailed above without a discrete hemodynamic significant stenosis. Runoff below the ankle in the left posterior tibial artery this supplies the foot. Atretic distal peroneal and anterior tibial arteries with intraluminal contrast becoming indiscernible at the level of the ankle and with no appreciable contrast in the dorsalis pedis artery. Chest X-Ray 05/08/24 08:14 IMPRESSION: Early infiltrate suspected within the right mid to lower lung field, as detailed above. Chest/Abdomen/Pelvis CT 05/08/24 10:43 IMPRESSION: Findings suggesting air and possible fluid extending from the lumen of the antrum of the stomach, with a small anterior collection, as detailed above. Repeat evaluation with Gastrografin via the gastrostomy would provide additional information. Upper GI Series 05/09/24 09:31 IMPRESSION: 1. Ulcer of the gastric antrum with contained extraluminal contrast similar to 04/28/2024. The extraluminal contrast distribution is worse than typically seen after Clarence patch repair. Abdomen CT 05/09/24 15:27 IMPRESSION: Redemonstration of a tract extending from the posterior superior margin of the antrum of the stomach only partially filled with oral contrast, perhaps demonstrating early healing. Labs Labs: Laboratory Results - last 24 hr 05/10/24 05/10/24 05/10/24 07:47 15:24 17:50 WBC 9.2 RBC 2.52 L Hgb 7.4 L Hct 23.3 L MCV 92.5 MCH 29.4 MCHC 31.8 L RDW 15.9 H Plt Count 161 MPV 13.4 H Immature Gran % (Auto) 1.5 H Neut % (Auto) 80.7 H Lymph % (Auto) 7.3 L [place] % (Auto) 9.1 H Eos % (Auto) 0.9 Baso % (Auto) 0.5 Lymph # (Auto) 0.67 L [place] # (Auto) 0.8 H Eos # (Auto) 0.1 Baso # (Auto) 0.1 Abs Immat Gran (auto) 0.14 H Absolute Neuts (auto) 7.4 H Absolute Nucleated RBC 0.000 Nucleated RBC % 0.0 % Immature Plt Fraction 8.6 Sodium Potassium Chloride Carbon Dioxide Anion Gap BUN Creatinine Estim Creat Clear Calc Estimated GFR Glucose POC Capillary Glucose 108 H Calcium Phosphorus Total Bilirubin AST ALT Alkaline Phosphatase Total Protein Albumin Blood Type A Positive Antibody Screen Negative Crossmatch See Detail 05/10/24 05/10/24 05/11/24 22:14 23:53 06:30 WBC 7.9 7.8 RBC 2.41 L 2.36 L Hgb 7.1 L 6.8 L* Hct 22.1 L 21.8 L MCV 91.7 92.4 MCH 29.5 28.8 MCHC 32.1 31.2 L RDW 15.8 H 15.9 H Plt Count 164 138 L MPV 12.7 H 13.9 H Immature Gran % (Auto) 2.2 H 2.7 H Neut % (Auto) 78.0 H 77.4 H Lymph % (Auto) 8.4 L 9.1 L [place] % (Auto) 9.6 H 8.5 Eos % (Auto) 1.3 1.9 Baso % (Auto) 0.5 0.4 Lymph # (Auto) 0.66 L 0.71 L [place] # (Auto) 0.8 H 0.7 H Eos # (Auto) 0.1 0.2 Baso # (Auto) 0.0 0.0 Abs Immat Gran (auto) 0.17 H 0.21 H Absolute Neuts (auto) 6.2 6.1 Absolute Nucleated RBC 0.000 0.000 Nucleated RBC % 0.0 0.0 % Immature Plt Fraction 10.1 Sodium Potassium Chloride Carbon Dioxide Anion Gap BUN Creatinine Estim Creat Clear Calc Estimated GFR Glucose POC Capillary Glucose 125 H Calcium Phosphorus Total Bilirubin AST ALT Alkaline Phosphatase Total Protein Albumin Blood Type Antibody Screen Crossmatch 05/11/24 05/11/24 06:34 06:35 WBC RBC Hgb Hct MCV MCH MCHC RDW Plt Count MPV Immature Gran % (Auto) Neut % (Auto) Lymph % (Auto) [place] % (Auto) Eos % (Auto) Baso % (Auto) Lymph # (Auto) [place] # (Auto) Eos # (Auto) Baso # (Auto) Abs Immat Gran (auto) Absolute Neuts (auto) Absolute Nucleated RBC Nucleated RBC % % Immature Plt Fraction Sodium 149 H Potassium 4.1 Chloride 119 H Carbon Dioxide 18 L Anion Gap 12 BUN 94 H Creatinine 3.75 H Estim Creat Clear Calc 21 Estimated GFR 16 L Glucose 156 H POC Capillary Glucose 138 H Calcium 8.2 L Phosphorus 5.2 H Total Bilirubin 0.7 AST 48 ALT 34 Alkaline Phosphatase 181 H Total Protein 6.0 L Albumin 2.5 L Blood Type Antibody Screen Crossmatch
[2024-05-11 12:16] LABS: Glucose Point of Care 160 mg/dl (65-105)
--- NOTE | 2024-05-11 13:47 | P.PNNP_ITS ---
Progress Note: A&P Assessment and Plan (1) Acute kidney injury: Code(s): N17.9 - Acute kidney failure, unspecified Status: Acute Assessment and Plan: * a bit worse but relatively stable in the last several days * had improved to baseline (1.5mg/dl) on 04/30 * suspect initial insult to be of multifactorial etiology: * NSAID use * hypotension/hemodynmic instability/shock * sepsis/infection * third spacing * evaluation to date: * CT shows normal kidneys * renal u/s with simple cyst x 1 o/w unremarkable. * urine electrolytes are prerenal * CPK mildly elevated (but not enough to affect kidneys) * urine eosinophils negative * mild proteinuria * another acute insult noted by recent labs (since 05/02): * possible due to pre-renal factors, infection (UTI +/- pneumonia versus gastric leak) * recent imaging noted - no evidence of gastric leak * repeat urine studies (on 05/08) suggestive of UTI and prerenal azotemia * back off on IVFs since tolerating tube feeds * titrate FWF with tube feeds given elevated sodium level * follow trend of repeat labs and UOP (2) Stage 3b chronic kidney disease: Code(s): N18.32 - Chronic kidney disease, stage 3b Status: Chronic Assessment and Plan: * creatinine ~ 1.5mg/dl in November 2023 * suspect secondary to hypertension, peripheral vascular disease, and possibly chronic NSAID use as well as age-related change (3) Perforated gastric ulcer: Onset Date: 04/2024 Qualifiers: Gastric ulcer chronicity: acute Qualified Code(s): K25.1 - Acute gastric ulcer with perforation Code(s): K25.5 - Chronic or unspecified gastric ulcer with perforation Status: Acute Assessment and Plan: * suspect secondary to NSAID use * s/p exploratory laparotomy and repair of antral gastric ulcer with omental Clarence patch and placement of open gastrostomy tube (on 04/22) * completed course of antibiotics * TPN to be discontinued * tolerating G-tube feedings * General Surgery following (4) PAD (peripheral artery disease): Code(s): I73.9 - Peripheral vascular disease, unspecified Status: Acute Assessment and Plan: * CTA of left lower extremity noted * suspect acute on chronic issue * on anticoagulation (5) Acute respiratory failure: Code(s): J96.00 - Acute respiratory failure, unspecified whether with hypoxia or hypercapnia Status: Acute Assessment and Plan: * resolved * on room air * follow imaging and respiratory status * noted pleural effusion on CT of chest (6) Anemia: Code(s): D64.9 - Anemia, unspecified Status: Acute Assessment and Plan: * noted acute drop (on 05/10 and 05/11) * due to RIC, CKD, and acute illness * consider RADHA given renal function while hospitalized * PRBC transfusion per protocol * follow trend of H/H (7) Malnutrition following gastrointestinal surgery: Code(s): K91.2 - Postsurgical malabsorption, not elsewhere classified Status: Acute Assessment and Plan: * off TPN * tube feeds ongoing * eventual goal is to transition to oral intake (8) HTN (hypertension): Code(s): I10 - Essential (primary) hypertension Status: Acute Assessment and Plan: * blood pressure under reasonable control * on PRN hydralazine and clonidine patch * resume oral meds via G-tube when able * follow trend of hemodynamics Will continue to follow. Subjective Date/time seen: 05/11/24 13:47 Interval history: Follow-up for acute kidney injury/acute renal failure. Renal function/creatinine remains about the same but continues to have good urine output; tolerated PRBC transfusion yesterday with appropriate incrementation in hemoglobin but repeat labs this morning show hemoglobin down to 6.8 -- another PRBC transfusion today; tolerating tube feeds at this time. Exam Narrative: General: elderly but WD/WN male in NAD Heart: normal S1 and S2; no rub Lungs: clear anteriorly; decreased at bases Abdomen: soft, nontender; some bowel sounds; +G-tube Extremities: no cyanosis or clubbing; trace - 1+ edema Skin: warm and intact Objective Data Vital Signs Vital Signs: Vital Signs Temp Pulse Resp BP Pulse Ox O2 Del Method 05/11/24 13:40 98.2 F 92 16 155/50 H 100 05/11/24 13:10 98.5 F 94 16 144/52 H 98 05/11/24 12:10 97.6 F 88 16 138/58 L 98 05/11/24 12:00 87 05/11/24 11:10 97.6 F 87 16 138/57 L 96 05/11/24 10:55 98.3 F 87 16 130/56 L 97 05/11/24 08:00 86 05/11/24 08:00 Room Air 05/11/24 06:00 98.9 F 85 16 136/55 L 96 05/11/24 04:00 85 05/11/24 00:00 87 05/10/24 21:16 98.1 F 87 16 127/51 L 97 05/10/24 20:00 85 Intake/Output Intake/Output: Intake & Output 05/08/24 05/09/24 05/10/24 05/11/24 23:59 23:59 23:59 23:59 Intake Total 1819 2000 2350 1722 Output Total 565 1060 1107 865 Balance 2520 256 6831 857 Meds/Results Medications: Active Medications Generic Name Dose Route Start Last Admin Trade Name Freq PRN Reason Stop Dose Admin Acetaminophen 650 mg 04/26/24 22:19 04/26/24 22:57 Acetaminophen 650 Mg Suppository RECTAL 650 mg Q6H PRN Administration Mild Pain (1-3) or Fever Acetaminophen 650 mg 05/05/24 10:27 05/08/24 12:38 Acetaminophen Elixir 325 Mg/10.15 Ml Udc PO 650 mg Q6H PRN Administration Mild Pain (1-3) or Fever Artificial Tears 1 drop 04/27/24 08:37 Artificial Tears Ophth Soln 15 Ml Bottle EACH EYE QID PRN Dry Eye(s) Atorvastatin Calcium 20 mg 04/30/24 09:00 Atorvastatin 20 Mg Tablet BY MOUTH DAILY ROSY Clonidine HCl 1 patch 05/01/24 09:00 05/08/24 08:43 Clonidine 0.1 Mg/24 Hr Patch TRANSDERM 1 patch WEEKLY ROSY Administration Dextrose 12.5 gm 04/22/24 23:06 Dextrose 50% 25 Gm/50 Ml Syringe IV PUSH PRN PRN Hypoglycemia Protocol Enoxaparin Sodium 120 mg 05/09/24 06:00 05/11/24 06:29 Enoxaparin 120 Mg/0.8 Ml Syringe SUB-Q 120 mg Q24H ROSY Administration Glucagon 1 mg 04/22/24 23:06 Glucagon For Inj 1 Mg Vial IM PRN PRN Hypoglycemia Protocol Glucose 15 gm 04/22/24 23:06 Glucose Oral Gel 15 Gm Of Glucse In 37.5 Gm Tube PO PRN PRN Hypoglycemia Protocol Hydralazine HCl 10 mg 04/25/24 08:00 05/03/24 21:47 Hydralazine Hcl 20 Mg/Ml Vial IV PUSH 10 mg Q4H PRN Administration Blood Pressure - High Dextrose 1,000 mls @ 100 mls/hr 04/22/24 23:06 Dextrose 5% 1,000 Ml IVPB PRN PRN Hypoglycemia Protocol Dextrose 1,000 mls @ 100 mls/hr 05/11/24 14:20 05/11/24 14:44 Dextrose 5% 1,000 Ml IV CONT 05/12/24 00:19 100 mls/hr .Q10H ROSY Administration Ipratropium [place] 0.5 mg 05/04/24 09:32 Ipratropium Br 0.02% Inh Soln 0.5 Mg/2.5 Ml Vial INHALATION Q6HRT PRN Shortness Of Breath Levalbuterol HCl 0.63 mg 05/04/24 09:32 Levalbuterol Neb 1.25 Mg/3 Ml INHALATION Q6HRT PRN Shortness Of Breath Levofloxacin 750 mg 05/12/24 09:00 Levofloxacin 750 Mg Tablet PO 05/14/24 09:01 Q48HR ROSY Lidocaine 1 patch 04/27/24 16:35 05/11/24 08:58 Lidocaine 5% Patch TRANSDERM 1 patch DAILY ROSY Administration Lorazepam 0.5 mg 04/27/24 19:01 05/10/24 23:50 Lorazepam Inj (*Crx) 2 Mg/Ml Vial IV PUSH 0.5 mg HS PRN Administration Sleep Morphine Sulfate 4 mg 04/22/24 22:02 05/11/24 14:54 Morphine Sulfate (*Crx) 4 Mg/Ml Inj IV PUSH 4 mg Q3H PRN Administration Pain Rated 7-10 Pantoprazole Sodium 40 mg 04/26/24 21:00 05/11/24 08:58 Pantoprazole Sodium Iv 40 Mg Vial IV PUSH 40 mg Q12HR ROSY Administration Sodium Chloride 10 ml 04/23/24 14:00 05/11/24 14:10 Central Line Flush IV PUSH 10 ml Q8HR ROSY Administration Sodium Chloride 20 ml 04/23/24 10:16 05/08/24 06:10 Central Line Flush IV PUSH 20 ml PRN PRN Administration after blood draws Sodium Chloride 10 ml 05/04/24 14:15 Central Line Flush IV PUSH PRN PRN with TPN bag changes Sodium Chloride 20 ml 05/04/24 14:15 05/05/24 06:18 Central Line Flush IV PUSH 20 ml PRN PRN Administration after blood draws Radiology Results: ITS Impressions Chest/Abdomen/Pelvis CTA 04/22/24 18:10 IMPRESSION: Perforated viscus with a large amount of free air and fluid, with mural thickening in the distal stomach and multiple punctate foci of extraluminal air in this area for which site of perforation is suspected. Renal Ultrasound 04/24/24 11:58 IMPRESSION: Simple cyst in the left kidney upper pole. Other appearances are unremarkable. Lower Extremity CTA 05/02/24 16:36 IMPRESSION: 1. Scattered atherosclerotic plaque in the arteries of the left lower limb as detailed above without a discrete hemodynamic significant stenosis. Runoff below the ankle in the left posterior tibial artery this supplies the foot. Atretic distal peroneal and anterior tibial arteries with intraluminal contrast becoming indiscernible at the level of the ankle and with no appreciable contrast in the dorsalis pedis artery. Chest X-Ray 05/08/24 08:14 IMPRESSION: Early infiltrate suspected within the right mid to lower lung field, as detailed above. Chest/Abdomen/Pelvis CT 05/08/24 10:43 IMPRESSION: Findings suggesting air and possible fluid extending from the lumen of the antrum of the stomach, with a small anterior collection, as detailed above. Repeat evaluation with Gastrografin via the gastrostomy would provide additional information. Upper GI Series 05/09/24 09:31 IMPRESSION: 1. Ulcer of the gastric antrum with contained extraluminal contrast similar to 04/28/2024. The extraluminal contrast distribution is worse than typically seen after Clarence patch repair. Abdomen CT 05/09/24 15:27 IMPRESSION: Redemonstration of a tract extending from the posterior superior margin of the antrum of the stomach only partially filled with oral contrast, perhaps demonstrating early healing. Labs Labs: Laboratory Tests 05/11/24 06:35 WBC 7.8 Hgb 6.8 L* Hct 21.8 L Plt Count 138 L Sodium 149 H Potassium 4.1 Chloride 119 H Carbon Dioxide 18 L Anion Gap 12 BUN 94 H Creatinine 3.75 H Estim Creat Clear Calc 21 Estimated GFR 16 L Glucose 156 H Calcium 8.2 L Phosphorus 5.2 H Total Bilirubin 0.7 AST 48 ALT 34 Alkaline Phosphatase 181 H Total Protein 6.0 L Albumin 2.5 L
--- NOTE | 2024-05-11 13:53 | PCPTNOTE ---
Attempted to see patient for PT, however patient reported he just worked with OT and needed a rest break. Patient declined PT at this time.
[2024-05-11] MEDS: WATER FOR IRRIGATION, STERILE 1,000 ML BOTTLE 1000 ML (14:10)
[2024-05-11] MEDS: DEXTROSE 5% 1,000 ML 1,000 ML 100 ML IV CONT (14:44)
[2024-05-11] MEDS: MORPHINE SULFATE (*CRX) 4 MG/ML INJ IV PUSH (14:54)
[2024-05-11 15:52] LABS: Hematocrit 23.9 % (42.0-52.0); Hemoglobin 7.8 g/dL (14.0-18.0); Mean Corpuscular HGB Conc 32.6 g/dl (32-36); Mean Corpuscular Hemoglobin 30.1 pg (26-34); Mean Corpuscular Volume 92.3 fl (80-100); Mean Platelet Volume 13.7 fl (7.4-10.4); Platelet Count Result 157 k/mm3 (150-375); Red Blood Count 2.59 M/mm3 (4.6-6.20); Red Cell Distribution Width 15.6 % (11.5-14.5); White Blood Count 8.7 K/mm3 (4.5-10.0)
[2024-05-11 18:38] LABS: Glucose Point of Care 183 mg/dl (65-105)
[2024-05-12] VITALS (21 sets, daily range): BP systolic 124–150; BP diastolic 49–65; PULSE 86–102; RESP 14–20; TEMP 36.3–37.1; O2SAT 95–100; BMI 10.0
[2024-05-12 00:21] LABS: Glucose Point of Care 159 mg/dl (65-105)
[2024-05-12] MEDS: MORPHINE SULFATE (*CRX) 4 MG/ML INJ IV PUSH ×2 (02:34→15:59)
[2024-05-12] MEDS: ENOXAPARIN 120 MG/0.8 ML SYRINGE SUB-Q (05:50)
[2024-05-12] MEDS: CENTRAL LINE FLUSH 20 ML IV PUSH (05:50)
[2024-05-12] MEDS: CENTRAL LINE FLUSH 10 ML IV PUSH ×2 (05:50→20:49)
[2024-05-12 06:25] LABS: Glucose Point of Care 146 mg/dl (65-105)
--- NOTE | 2024-05-12 06:25 | P.PNIM_ITS ---
Progress Note: A&P Assessment and Plan (1) Perforated abdominal viscus: Code(s): R19.8 - Other specified symptoms and signs involving the digestive system and abdomen Status: Acute Assessment and Plan: * Septic shock in setting of peritonitis with perforated gastric ulcer: * Shock has resolved * Status post exploratory laparotomy with repair of antral gastric ulcer with omental Clarence patch, open gastrostomy tube * CT of the abdomen: Redemonstration of a tract extending from the posterior superior margin of the antrum of the stomach only partially filled with oral contrast, perhaps demonstrating early healing. * Surgery is following * Continue levofloxacin for now * Passed swallow study. * Noted bowel movement with bowel sounds present * Diet advanced to clear liquids, with tube feeding * Drains present with minimal output * Continue with PPI. * Pain regimen. * Monitor labs. * Upper GI series showed: FINDINGS: There is an ulcer of the antrum of the stomach. There is contrast in a 6 x 3 cm area outside the expected ellison of the stomach. (2) Pneumonia: Code(s): J18.9 - Pneumonia, unspecified organism Status: Acute Assessment and Plan: * Chest xray from 05/08/2024 showed early infiltrate * Continue levaquin for now * Encourage IS use * Cornet therapy * nebs PRN * No oxygen demand * Continue current therapy (3) Malnutrition following gastrointestinal surgery: Code(s): K91.2 - Postsurgical malabsorption, not elsewhere classified Status: Acute Assessment and Plan: * Passed swallow study. * Continue tube feedings * NS @ 50ml/hr * Passed swallow study * Advance deit per surgery's recommendations * Surgery following. (4) Acute kidney injury superimposed on stage 3b chronic kidney disease: Code(s): N17.9 - Acute kidney failure, unspecified; N18.32 - Chronic kidney disease, stage 3b Status: Acute Assessment and Plan: * Avoid nephrotoxins * BUN 95, Creatinine 3.83, & GFR 15 * today BUN 96, Creatinine is 3.89 * baseline most likely around 1.5 * NS@ 50 ml/hr stopped for now * Trial with lasix 40mg x 1 on 05/11/2024 with worsening kidney function * Nephrology following * Renal ultrasound was unremarkable for any acute issues. * trend labs * Adjust therapy as indicated (5) Anemia: Code(s): D64.9 - Anemia, unspecified Status: Acute Assessment and Plan: * H&H 6.7/21.2 from 05/10/2024 * Patient received 1 unit of PRBC's. * Post transfusion H&H was 7.4/23.3. * Current H/H 6.6/20.9 * 1 unit PRBCs ordered * Could be related to fluid overload as well * Trend CBC. * transfuse if hgb <7.0 * anemia labs obtained iron 23, TIBC 147,% saturation 16, transferrin less than 80, ferritin 842 * 500 mg of IV iron ordered and given (6) HTN (hypertension): Code(s): I10 - Essential (primary) hypertension Status: Acute Assessment and Plan: * Blood pressure 148/52 * Continue Clonidine patch and Hydralazine PRN. * Trend BP * Adjust therapy as indicated (7) Generalized weakness: Code(s): R53.1 - Weakness Status: Acute Assessment and Plan: * PT/OT (8) Hypokalemia: Code(s): E87.6 - Hypokalemia Status: Acute Assessment and Plan: * Potassium 4.2 * Monitor levels. * Trend labs * Replace as indicated (9) Hypernatremia: Code(s): E87.0 - Hyperosmolality and hypernatremia Status: Acute Assessment and Plan: * Sodium slightly elevated at 144 * Continue to trend * Stop IV fluid * resolved Time Spent With Patient Time: 56 minutes Time with patient: Greater than 35 minutes Subjective Date/time seen: 05/12/24 06:25 Interval history: 05/12/2024 Patient is doing better today. He is lying in bed. Hemoglobin is down again and blood has been ordered. Spoke with surgery about continuing or discontinuing the Lovenox. Will continue to trend H&H Ordered 1 does of iron. 05/11/2024 Patient is lying in bed is comfortable. Surgery was also present. Patient also did have a hemoglobin of 6.8 today. He denies any current chest pain, shortness a breath, nausea, vomiting, diarrhea constipation. Patient states that he feels pretty okay and pain is controlled. Will give 1 dose of Lasix to see if that will help with the bilateral lower extremities swelling and possibly the work of breathing. Since admission 78-year-old male with a past medical history of the osteoarthritis on chronic NSAID therapy, hyperlipidemia, hypertension, prior umbilical hernia repair, perforated appendix status post resection 2022 who presented to the ER via EMS with 3 days of sharp radiating abdominal pain. CT demonstrated perforated viscus with large amount of free air and fluid with mural thickening of the distal stomach and multiple punctate foci of extraluminal air with suspected perforated ulcer. Patient was evaluated by the surgeon in the ER was taken directly to the OR. Status post exploratory laparotomy with repair of antral gastric ulcer with omental Clarence patch. Placement of open gastrostomy tube on 04/22/2024. Patient was admitted to the ICU with shock requiring pressor support, intubated. Was eventually extubated on 04/25/2024. He was off pressor support on 04/24/2024. Has been on Zosyn and Diflucan as per surgery, stopped 05/05/24. Review of Systems Review of Systems: All systems reviewed & are unremarkable except as noted in HPI and below Exam Narrative: General: well-nourished, ill-appearing 78-year-old male, sitting up in bed, comfortable, NARD Neuro: awake, alert and oriented x4, speech clear, no focal neuro deficits noted HEENMT: normocephalic, atraumatic, EOMI, sclerae anicteric, moist oral mucosa Respiratory: Clear per auscultation bilaterally however increased work of breathing Cardio: regular rate, regular rhythm with S1-S2 Abdomen: Soft and not tender to drains present and midline incision which is clean dry and intact and appears to be healing well with no signs of infection, G tube present Extremities: 4+ pitting edema bilaterally temperature even bilaterally Skin: no rashes or lesions, warm and dry Psych: appropriate mood and affect, judgment and insight intact Objective Data Vital Signs Vital Signs: Vital Signs - 24 hr 05/11/24 08:00 05/11/24 08:00 05/11/24 10:55 Temperature 98.3 F Pulse Rate 86 87 Respiratory Rate 16 Blood Pressure 130/56 L Pulse Oximetry 97 Oxygen Delivery Room Air 05/11/24 11:10 05/11/24 12:00 05/11/24 12:10 Temperature 97.6 F 97.6 F Pulse Rate 87 87 88 Respiratory Rate 16 16 Blood Pressure 138/57 L 138/58 L Pulse Oximetry 96 98 Oxygen Delivery 05/11/24 13:10 05/11/24 13:50 05/11/24 14:13 Temperature 98.5 F 98.2 F 98.2 F Pulse Rate 94 92 92 Respiratory Rate 16 16 16 Blood Pressure 144/52 H 155/50 H 155/50 H Pulse Oximetry 98 100 100 Oxygen Delivery 05/11/24 16:00 05/11/24 20:00 05/11/24 20:02 Temperature 98.7 F Pulse Rate 93 95 87 Respiratory Rate 16 Blood Pressure 148/50 H Pulse Oximetry 98 Oxygen Delivery 05/12/24 00:00 05/12/24 04:00 05/12/24 05:44 Temperature 98.2 F Pulse Rate 94 88 88 Respiratory Rate 14 Blood Pressure 148/52 H Pulse Oximetry 97 Oxygen Delivery Intake/Output Intake/Output: Intake & Output 05/09/24 05/10/24 05/11/24 05/12/24 23:59 23:59 23:59 23:59 Intake Total 19990 1722 2405 Output Total 1060 1107 865 850 Balance 940 8756 256 1114 Meds/Results Medications: Active Medications Generic Name Dose Route Start Last Admin Trade Name Freq PRN Reason Stop Dose Admin Acetaminophen 650 mg 04/26/24 22:19 04/26/24 22:57 Acetaminophen 650 Mg Suppository RECTAL 650 mg Q6H PRN Administration Mild Pain (1-3) or Fever Acetaminophen 650 mg 05/05/24 10:27 05/08/24 12:38 Acetaminophen Elixir 325 Mg/10.15 Ml Udc PO 650 mg Q6H PRN Administration Mild Pain (1-3) or Fever Artificial Tears 1 drop 04/27/24 08:37 Artificial Tears Ophth Soln 15 Ml Bottle EACH EYE QID PRN Dry Eye(s) Atorvastatin Calcium 20 mg 04/30/24 09:00 Atorvastatin 20 Mg Tablet BY MOUTH DAILY ROSY Clonidine HCl 1 patch 05/01/24 09:00 05/08/24 08:43 Clonidine 0.1 Mg/24 Hr Patch TRANSDERM 1 patch WEEKLY ROSY Administration Dextrose 12.5 gm 04/22/24 23:06 Dextrose 50% 25 Gm/50 Ml Syringe IV PUSH PRN PRN Hypoglycemia Protocol Enoxaparin Sodium 120 mg 05/09/24 06:00 05/12/24 05:50 Enoxaparin 120 Mg/0.8 Ml Syringe SUB-Q 120 mg Q24H ROSY Administration Glucagon 1 mg 04/22/24 23:06 Glucagon For Inj 1 Mg Vial IM PRN PRN Hypoglycemia Protocol Glucose 15 gm 04/22/24 23:06 Glucose Oral Gel 15 Gm Of Glucse In 37.5 Gm Tube PO PRN PRN Hypoglycemia Protocol Hydralazine HCl 10 mg 04/25/24 08:00 05/03/24 21:47 Hydralazine Hcl 20 Mg/Ml Vial IV PUSH 10 mg Q4H PRN Administration Blood Pressure - High Dextrose 1,000 mls @ 100 mls/hr 04/22/24 23:06 Dextrose 5% 1,000 Ml IVPB PRN PRN Hypoglycemia Protocol Ipratropium [place] 0.5 mg 05/04/24 09:32 Ipratropium Br 0.02% Inh Soln 0.5 Mg/2.5 Ml Vial INHALATION Q6HRT PRN Shortness Of Breath Levalbuterol HCl 0.63 mg 05/04/24 09:32 Levalbuterol Neb 1.25 Mg/3 Ml INHALATION Q6HRT PRN Shortness Of Breath Levofloxacin 750 mg 05/12/24 09:00 Levofloxacin 750 Mg Tablet PO 05/14/24 09:01 Q48HR ROSY Lidocaine 1 patch 04/27/24 16:35 05/11/24 08:58 Lidocaine 5% Patch TRANSDERM 1 patch DAILY ROSY Administration Lorazepam 0.5 mg 04/27/24 19:01 05/10/24 23:50 Lorazepam Inj (*Crx) 2 Mg/Ml Vial IV PUSH 0.5 mg HS PRN Administration Sleep Morphine Sulfate 4 mg 04/22/24 22:02 05/12/24 02:34 Morphine Sulfate (*Crx) 4 Mg/Ml Inj IV PUSH 4 mg Q3H PRN Administration Pain Rated 7-10 Pantoprazole Sodium 40 mg 04/26/24 21:00 05/11/24 21:00 Pantoprazole Sodium Iv 40 Mg Vial IV PUSH 40 mg Q12HR ROSY Administration Sodium Chloride 10 ml 04/23/24 14:00 05/12/24 05:50 Central Line Flush IV PUSH 10 ml Q8HR ROSY Administration Sodium Chloride 20 ml 04/23/24 10:16 05/08/24 06:10 Central Line Flush IV PUSH 20 ml PRN PRN Administration after blood draws Sodium Chloride 10 ml 05/04/24 14:15 Central Line Flush IV PUSH PRN PRN with TPN bag changes Sodium Chloride 20 ml 05/04/24 14:15 05/12/24 05:50 Central Line Flush IV PUSH 20 ml PRN PRN Administration after blood draws Radiology Results: ITS Impressions Chest/Abdomen/Pelvis CTA 04/22/24 18:10 IMPRESSION: Perforated viscus with a large amount of free air and fluid, with mural thickening in the distal stomach and multiple punctate foci of extraluminal air in this area for which site of perforation is suspected. Renal Ultrasound 04/24/24 11:58 IMPRESSION: Simple cyst in the left kidney upper pole. Other appearances are unremarkable. Lower Extremity CTA 05/02/24 16:36 IMPRESSION: 1. Scattered atherosclerotic plaque in the arteries of the left lower limb as d etailed above without a discrete hemodynamic significant stenosis. Runoff below the ankle in the left posterior tibial artery this supplies the foot. Atretic distal peroneal and anterior tibial arteries with intraluminal contrast becoming indiscernible at the level of the ankle and with no appreciable contrast in the dorsalis pedis artery. Chest X-Ray 05/08/24 08:14 IMPRESSION: Early infiltrate suspected within the right mid to lower lung field, as detailed above. Chest/Abdomen/Pelvis CT 05/08/24 10:43 IMPRESSION: Findings suggesting air and possible fluid extending from the lumen of the antrum of the stomach, with a small anterior collection, as detailed above. Repeat evaluation with Gastrografin via the gastrostomy would provide additional information. Upper GI Series 05/09/24 09:31 IMPRESSION: 1. Ulcer of the gastric antrum with contained extraluminal contrast similar to 04/28/2024. The extraluminal contrast distribution is worse than typically seen after Clarence patch repair. Abdomen CT 05/09/24 15:27 IMPRESSION: Redemonstration of a tract extending from the posterior superior margin of the antrum of the stomach only partially filled with oral contrast, perhaps demonstrating early healing. Labs Labs: Laboratory Results - last 24 hr 05/10/24 05/11/24 05/11/24 07:47 06:30 06:34 WBC 7.8 RBC 2.36 L Hgb 6.8 L* Hct 21.8 L MCV 92.4 MCH 28.8 MCHC 31.2 L RDW 15.9 H Plt Count 138 L MPV 13.9 H Immature Gran % (Auto) 2.7 H Neut % (Auto) 77.4 H Lymph % (Auto) 9.1 L [place] % (Auto) 8.5 Eos % (Auto) 1.9 Baso % (Auto) 0.4 Lymph # (Auto) 0.71 L [place] # (Auto) 0.7 H Eos # (Auto) 0.2 Baso # (Auto) 0.0 Abs Immat Gran (auto) 0.21 H Absolute Neuts (auto) 6.1 Absolute Nucleated RBC 0.000 Nucleated RBC % 0.0 % Immature Plt Fraction 10.1 Sodium Potassium Chloride Carbon Dioxide Anion Gap BUN Creatinine Estim Creat Clear Calc Estimated GFR Glucose POC Capillary Glucose 138 H Calcium Phosphorus Total Bilirubin AST ALT Alkaline Phosphatase Total Protein Albumin Blood Type A Positive Antibody Screen Negative Crossmatch See Detail 05/11/24 05/11/24 05/11/24 06:35 12:14 15:36 WBC 8.7 RBC 2.59 L Hgb 7.8 L Hct 23.9 L MCV 92.3 MCH 30.1 MCHC 32.6 RDW 15.6 H Plt Count 157 MPV 13.7 H Immature Gran % (Auto) Neut % (Auto) Lymph % (Auto) [place] % (Auto) Eos % (Auto) Baso % (Auto) Lymph # (Auto) [place] # (Auto) Eos # (Auto) Baso # (Auto) Abs Immat Gran (auto) Absolute Neuts (auto) Absolute Nucleated RBC Nucleated RBC % % Immature Plt Fraction Sodium 149 H Potassium 4.1 Chloride 119 H Carbon Dioxide 18 L Anion Gap 12 BUN 94 H Creatinine 3.75 H Estim Creat Clear Calc 21 Estimated GFR 16 L Glucose 156 H POC Capillary Glucose 160 H Calcium 8.2 L Phosphorus 5.2 H Total Bilirubin 0.7 AST 48 ALT 34 Alkaline Phosphatase 181 H Total Protein 6.0 L Albumin 2.5 L Blood Type Antibody Screen Crossmatch 05/11/24 05/12/24 18:08 00:13 WBC RBC Hgb Hct MCV MCH MCHC RDW Plt Count MPV Immature Gran % (Auto) Neut % (Auto) Lymph % (Auto) [place] % (Auto) Eos % (Auto) Baso % (Auto) Lymph # (Auto) [place] # (Auto) Eos # (Auto) Baso # (Auto) Abs Immat Gran (auto) Absolute Neuts (auto) Absolute Nucleated RBC Nucleated RBC % % Immature Plt Fraction Sodium Potassium Chloride Carbon Dioxide Anion Gap BUN Creatinine Estim Creat Clear Calc Estimated GFR Glucose POC Capillary Glucose 183 H 159 H Calcium Phosphorus Total Bilirubin AST ALT Alkaline Phosphatase Total Protein Albumin Blood Type Antibody Screen Crossmatch Quality VTE Prophylaxis VTE prophylaxis: mechanical ordered and pharmacologic ordered
[2024-05-12 06:43] LABS: Basophils Percent Auto 0.4 % (0.2-1.2); Eosinophils Absolute Auto 0.2 K/mm3 (0-0.3); Eosinophils Percent Auto 1.9 % (0-4.4); Immature Granulocyte Absolute 0.33 K/mm3 (0.00-0.031); Immature Granulocyte Percent A 3.2 % (0-0.5); Lymphocytes Percent Auto 8.7 % (18.3-44.2); Mean Corpuscular HGB Conc 31.6 g/dl (32-36); Mean Corpuscular Hemoglobin 29.6 pg (26-34); Mean Corpuscular Volume 93.7 fl (80-100); Mean Platelet Volume 13.3 fl (7.4-10.4); Monocytes Absolute Auto 0.8 K/mm3 (0.1-0.6); Neutrophils Absolute Auto 8.1 K/mm3 (1.3-6.7); Neutrophils Percent Auto 77.8 % (45.5-73.1); Platelet Count Result 113 k/mm3 (150-375); Red Blood Count 2.23 M/mm3 (4.6-6.20); Red Cell Distribution Width 15.9 % (11.5-14.5); White Blood Count 10.4 K/mm3 (4.5-10.0)
[2024-05-12 06:53] LABS: Alanine Aminotransferase 35 U/L (6-50); Albumin Level 2.4 g/dL (3.5-5.1); Alkaline Phosphatase 172 U/L (38-126); Anion Gap 10 mmol/L (4-12); Aspartate Amino Transferase 49 U/L (17-59); Bilirubin,Total 0.7 mg/dL (0.2-1.3); Blood Urea Nitrogen 96 mg/dL (9-20); Calcium 7.8 mg/dL (8.4-10.2); Carbon Dioxide 18 mmol/L (22-30); Chloride 116 mmol/L (98-107); Estimated CRCL calculation 21 ml/min; Estimated Glomerular Filt Rate 15; Glucose 146 mg/dL (65-110); Magnesium 2.2 mg/dL (1.6-2.3); Phosphorus 5.3 mg/dL (2.5-4.5); Potassium 4.2 mmol/L (3.4-5.0); Sodium 144 mmol/L (137-145)
[2024-05-12 07:33] LABS: Hematocrit 20.9 % (42.0-52.0); Hemoglobin 6.6 g/dL (14.0-18.0)
[2024-05-12 07:36] LABS: Hypochromasia 1+; Platelet Estimate Slightly Decreased (Adequate)
[2024-05-12 07:37] LABS: Anisocytosis 1+
[2024-05-12 07:41] LABS: Schistocytes None Seen
[2024-05-12] MEDS: LIDOCAINE 5% PATCH 1 PATCH TRANSDERM (08:20)
[2024-05-12] MEDS: PANTOPRAZOLE SODIUM IV 40 MG VIAL IV PUSH ×2 (08:20→20:49)
[2024-05-12] MEDS: levoFLOXacin 750 MG TABLET PO (08:20)
[2024-05-12] MEDS: SODIUM CHLORIDE 0.9% IV 250 ML 30 ML IV CONT (08:37)
[2024-05-12] MEDS: TUBING, BLOOD PLUM PUMP TUBING 1 EACH XX ×3 (08:37→16:51)
--- NOTE | 2024-05-12 10:07 | P.PNGS_ITS ---
Progress Note: A&P Assessment and Plan (1) Perforated gastric ulcer: Onset Date: 04/2024 Qualifiers: Gastric ulcer chronicity: acute Qualified Code(s): K25.1 - Acute gastric ulcer with perforation Code(s): K25.5 - Chronic or unspecified gastric ulcer with perforation Status: Acute Assessment and Plan: WBC count up slightly to 10.4 today. He has been afebrile since last weekend and is not having any abdominal pain. His exam is benign and his incision and drains all appear clean without any signs of infection. Repeat labs tomorrow. Monitor drains. Will stop tube feeding and start advancing his diet to full liquids with supplements. Hgb still low, no signs of active bleeding. Discussed with Hospitalist, will continue Lovenox for now unless he shows signs of bleeding. Hospitalist will initiate and anemia workup and speak with Nephrology regarding his fluid status. (2) Malnutrition following gastrointestinal surgery: Code(s): K91.2 - Postsurgical malabsorption, not elsewhere classified Status: Acute Assessment and Plan: Will stop tube feedings and start advancing his diet. Will add supplements (3) Acute kidney injury superimposed on stage 3b chronic kidney disease: Code(s): N17.9 - Acute kidney failure, unspecified; N18.32 - Chronic kidney disease, stage 3b Status: Acute Assessment and Plan: Creatinine still at 3.89 and BUN continues to climb to 96 today. Discussed with Hospitalist. He appears fluid overloaded. Hospitalist will discuss with Nephrology. Plan I have discussed the patient's case and plan of care with Dr. Moreno. Subjective Subjective Date/Time Seen: 05/12/24 10:07 Post Op day: 20 Patient reports: tolerating liquids well, bowel movement and afebrile Interval history: Patient seen in the chair today. He denies any specific complaints. His work of breathing looks slightly more labored today, but no respiratory distress. He is on room air with good O2 saturations. He denies cough or SOB. He denies abdominal pain. He had at least 1-2 bowel movements yesterday that were soft and brown per staff, no diarrhea. Hgb again down to 6.6 today after receiving 1 unit of PRBCs yesterday. 2 units have been ordered this morning by the Hospitalist. He has no drain output documented from ELSA drains last night, but there is 5-10 cc in both drains on my exam. He is tolerating his tube feedings at goal per nursing. He also has tolerating the clear liquid diet well and has eaten 100% of all of his trays. Exam Const: General: comfortable and no acute distress Orientation/consciousness: patient oriented x3 Resp: Effort & Inspection: audible wheezes (initially on my exam he had slight audible wheezing), labored (very mildly labored with more work of breathing today, no distress), no respiratory distress, no stridor and not tachypneic Auscultation: crackles on the right at the base Cardio: Rate: regular rate Rhythm: regular rhythm GI: Inspection: Abdominal wall edema bilateral (mostly in bilateral flanks) Auscultation: normal bowel sounds Other: Abdomen mildly distended and soft. He has mild tenderness in the RUQ. No guarding. ELSA drains x 2, the RUQ drain has scant rust-colored output, the LUQ drain with scant cloudy yellow drainage. Gastrostomy tube in place with dry gauze dressing and skin around the G-tube without erythema or drainage. Incision dry with steri strips intact, no erythema. Urinary Catheter: Urinary Catheter: patent and draining and urine clear Extrem: General: no calf tenderness bilaterally and edema (bilateral lower extremity 3+ pitting edema) Other: Bilateral feet are warm with normal color and good capillary refill Objective Data Vital Signs Vital Signs: Vital Signs - 24 hr 05/11/24 10:55 05/11/24 11:10 05/11/24 12:00 Temperature 98.3 F 97.6 F Pulse Rate 87 87 87 Respiratory Rate 16 16 Blood Pressure 130/56 L 138/57 L Pulse Oximetry 97 96 Oxygen Delivery 05/11/24 12:10 05/11/24 13:10 05/11/24 13:50 Temperature 97.6 F 98.5 F 98.2 F Pulse Rate 88 94 92 Respiratory Rate 16 16 16 Blood Pressure 138/58 L 144/52 H 155/50 H Pulse Oximetry 98 98 100 Oxygen Delivery 05/11/24 14:13 05/11/24 16:00 05/11/24 20:00 Temperature 98.2 F Pulse Rate 92 93 95 Respiratory Rate 16 Blood Pressure 155/50 H Pulse Oximetry 100 Oxygen Delivery 05/11/24 20:02 05/12/24 00:00 05/12/24 04:00 Temperature 98.7 F Pulse Rate 87 94 88 Respiratory Rate 16 Blood Pressure 148/50 H Pulse Oximetry 98 Oxygen Delivery 05/12/24 05:44 05/12/24 08:00 05/12/24 09:00 Temperature 98.2 F 97.5 F L Pulse Rate 88 87 Respiratory Rate 14 20 Blood Pressure 148/52 H 124/49 L Pulse Oximetry 97 97 Oxygen Delivery Room Air 05/12/24 09:15 Temperature 98.3 F Pulse Rate 94 Respiratory Rate 18 Blood Pressure 150/59 H Pulse Oximetry 100 Oxygen Delivery Intake/Output Intake/Output: Intake & Output 05/09/24 05/10/24 05/11/24 05/12/24 23:59 23:59 23:59 23:59 Intake Total 19990 1722 2405 Output Total 1060 1107 865 850 Balance 940 2757 358 7721 Meds/Results Medications: Active Medications Generic Name Dose Route Start Last Admin Trade Name Freq PRN Reason Stop Dose Admin Acetaminophen 650 mg 04/26/24 22:19 04/26/24 22:57 Acetaminophen 650 Mg Suppository RECTAL 650 mg Q6H PRN Administration Mild Pain (1-3) or Fever Acetaminophen 650 mg 05/05/24 10:27 05/08/24 12:38 Acetaminophen Elixir 325 Mg/10.15 Ml Udc PO 650 mg Q6H PRN Administration Mild Pain (1-3) or Fever Artificial Tears 1 drop 04/27/24 08:37 Artificial Tears Ophth Soln 15 Ml Bottle EACH EYE QID PRN Dry Eye(s) Atorvastatin Calcium 20 mg 04/30/24 09:00 Atorvastatin 20 Mg Tablet BY MOUTH DAILY ROSY Clonidine HCl 1 patch 05/01/24 09:00 05/08/24 08:43 Clonidine 0.1 Mg/24 Hr Patch TRANSDERM 1 patch WEEKLY ROSY Administration Dextrose 12.5 gm 04/22/24 23:06 Dextrose 50% 25 Gm/50 Ml Syringe IV PUSH PRN PRN Hypoglycemia Protocol Enoxaparin Sodium 120 mg 05/09/24 06:00 05/12/24 05:50 Enoxaparin 120 Mg/0.8 Ml Syringe SUB-Q 120 mg Q24H ROSY Administration Glucagon 1 mg 04/22/24 23:06 Glucagon For Inj 1 Mg Vial IM PRN PRN Hypoglycemia Protocol Glucose 15 gm 04/22/24 23:06 Glucose Oral Gel 15 Gm Of Glucse In 37.5 Gm Tube PO PRN PRN Hypoglycemia Protocol Hydralazine HCl 10 mg 04/25/24 08:00 05/03/24 21:47 Hydralazine Hcl 20 Mg/Ml Vial IV PUSH 10 mg Q4H PRN Administration Blood Pressure - High Dextrose 1,000 mls @ 100 mls/hr 04/22/24 23:06 Dextrose 5% 1,000 Ml IVPB PRN PRN Hypoglycemia Protocol Sodium Chloride 250 mls @ 30 mls/hr 05/12/24 07:35 05/12/24 08:37 Normal Saline Iv IV CONT 05/12/24 15:54 30 mls/hr .Q8H20M STA Administration Ipratropium [place] 0.5 mg 05/04/24 09:32 Ipratropium Br 0.02% Inh Soln 0.5 Mg/2.5 Ml Vial INHALATION Q6HRT PRN Shortness Of Breath Levalbuterol HCl 0.63 mg 05/04/24 09:32 Levalbuterol Neb 1.25 Mg/3 Ml INHALATION Q6HRT PRN Shortness Of Breath Levofloxacin 750 mg 05/12/24 09:00 05/12/24 08:20 Levofloxacin 750 Mg Tablet PO 05/14/24 09:01 750 mg Q48HR ROSY Administration Lidocaine 1 patch 04/27/24 16:35 05/12/24 08:20 Lidocaine 5% Patch TRANSDERM 1 patch DAILY ROSY Administration Lorazepam 0.5 mg 04/27/24 19:01 05/10/24 23:50 Lorazepam Inj (*Crx) 2 Mg/Ml Vial IV PUSH 0.5 mg HS PRN Administration Sleep Morphine Sulfate 4 mg 04/22/24 22:02 05/12/24 02:34 Morphine Sulfate (*Crx) 4 Mg/Ml Inj IV PUSH 4 mg Q3H PRN Administration Pain Rated 7-10 Pantoprazole Sodium 40 mg 04/26/24 21:00 05/12/24 08:20 Pantoprazole Sodium Iv 40 Mg Vial IV PUSH 40 mg Q12HR ROSY Administration Sodium Chloride 10 ml 04/23/24 14:00 05/12/24 05:50 Central Line Flush IV PUSH 10 ml Q8HR ROSY Administration Sodium Chloride 20 ml 04/23/24 10:16 05/08/24 06:10 Central Line Flush IV PUSH 20 ml PRN PRN Administration after blood draws Sodium Chloride 10 ml 05/04/24 14:15 Central Line Flush IV PUSH PRN PRN with TPN bag changes Sodium Chloride 20 ml 05/04/24 14:15 05/12/24 05:50 Central Line Flush IV PUSH 20 ml PRN PRN Administration after blood draws Radiology Results: ITS Impressions Chest/Abdomen/Pelvis CTA 04/22/24 18:10 IMPRESSION: Perforated viscus with a large amount of free air and fluid, with mural thickening in the distal stomach and multiple punctate foci of extraluminal air in this area for which site of perforation is suspected. Renal Ultrasound 04/24/24 11:58 IMPRESSION: Simple cyst in the left kidney upper pole. Other appearances are unremarkable. Lower Extremity CTA 05/02/24 16:36 IMPRESSION: 1. Scattered atherosclerotic plaque in the arteries of the left lower limb as detailed above without a discrete hemodynamic significant stenosis. Runoff below the ankle in the left posterior tibial artery this supplies the foot. Atretic distal peroneal and anterior tibial arteries with intraluminal contrast becoming indiscernible at the level of the ankle and with no appreciable contrast in the dorsalis pedis artery. Chest X-Ray 05/08/24 08:14 IMPRESSION: Early infiltrate suspected within the right mid to lower lung field, as detailed above. Chest/Abdomen/Pelvis CT 05/08/24 10:43 IMPRESSION: Findings suggesting air and possible fluid extending from the lumen of the antrum of the stomach, with a small anterior collection, as detailed above. Repeat evaluation with Gastrografin via the gastrostomy would provide additional information. Upper GI Series 05/09/24 09:31 IMPRESSION: 1. Ulcer of the gastric antrum with contained extraluminal contrast similar to 04/28/2024. The extraluminal contrast distribution is worse than typically seen after Clarence patch repair. Abdomen CT 05/09/24 15:27 IMPRESSION: Redemonstration of a tract extending from the posterior superior margin of the antrum of the stomach only partially filled with oral contrast, perhaps demonstrating early healing. Labs Labs: Laboratory Results - last 24 hr 05/10/24 05/11/24 05/11/24 07:47 12:14 15:36 WBC 8.7 RBC 2.59 L Hgb 7.8 L Hct 23.9 L MCV 92.3 MCH 30.1 MCHC 32.6 RDW 15.6 H Plt Count 157 MPV 13.7 H Immature Gran % (Auto) Neut % (Auto) Lymph % (Auto) [place] % (Auto) Eos % (Auto) Baso % (Auto) Lymph # (Auto) [place] # (Auto) Eos # (Auto) Baso # (Auto) Abs Immat Gran (auto) Absolute Neuts (auto) Absolute Nucleated RBC Band Neutrophils % Nucleated RBC % Platelet Estimate % Immature Plt Fraction Hypochromasia Anisocytosis Schistocytes Sodium Potassium Chloride Carbon Dioxide Anion Gap BUN Creatinine Estim Creat Clear Calc Estimated GFR Glucose POC Capillary Glucose 160 H Calcium Phosphorus Magnesium Total Bilirubin AST ALT Alkaline Phosphatase Total Protein Albumin Blood Type A Positive Antibody Screen Negative Crossmatch See Detail 05/11/24 05/12/24 05/12/24 18:08 00:13 05:39 WBC RBC Hgb Hct MCV MCH MCHC RDW Plt Count MPV Immature Gran % (Auto) Neut % (Auto) Lymph % (Auto) [place] % (Auto) Eos % (Auto) Baso % (Auto) Lymph # (Auto) [place] # (Auto) Eos # (Auto) Baso # (Auto) Abs Immat Gran (auto) Absolute Neuts (auto) Absolute Nucleated RBC Band Neutrophils % Nucleated RBC % Platelet Estimate % Immature Plt Fraction Hypochromasia Anisocytosis Schistocytes Sodium Potassium Chloride Carbon Dioxide Anion Gap BUN Creatinine Estim Creat Clear Calc Estimated GFR Glucose POC Capillary Glucose 183 H 159 H 146 H Calcium Phosphorus Magnesium Total Bilirubin AST ALT Alkaline Phosphatase Total Protein Albumin Blood Type Antibody Screen Crossmatch 05/12/24 06:36 WBC 10.4 H RBC 2.23 L Hgb 6.6 L* Hct 20.9 L* MCV 93.7 MCH 29.6 MCHC 31.6 L RDW 15.9 H Plt Count 113 L MPV 13.3 H Immature Gran % (Auto) 3.2 H Neut % (Auto) 77.8 H Lymph % (Auto) 8.7 L [place] % (Auto) 8.0 Eos % (Auto) 1.9 Baso % (Auto) 0.4 Lymph # (Auto) 0.90 [place] # (Auto) 0.8 H Eos # (Auto) 0.2 Baso # (Auto) 0.0 Abs Immat Gran (auto) 0.33 H Absolute Neuts (auto) 8.1 H Absolute Nucleated RBC 0.000 Band Neutrophils % Not Reportable Nucleated RBC % 0.0 Platelet Estimate Slightly decreased % Immature Plt Fraction 12.0 H Hypochromasia 1+ Anisocytosis 1+ Schistocytes None seen Sodium 144 Potassium 4.2 Chloride 116 H Carbon Dioxide 18 L Anion Gap 10 BUN 96 H Creatinine 3.89 H Estim Creat Clear Calc 21 Estimated GFR 15 L Glucose 146 H POC Capillary Glucose Calcium 7.8 L Phosphorus 5.3 H Magnesium 2.2 Total Bilirubin 0.7 AST 49 ALT 35 Alkaline Phosphatase 172 H Total Protein 5.0 L Albumin 2.4 L Blood Type Antibody Screen Crossmatch
--- NOTE | 2024-05-12 10:25 | PCNFU ---
Nutrition Follow-Up Complete: Inadequate oral intake related to altered GI function as evidenced by need for TF. Goal: Meet estimated nutrition needs Patient is progressing towards goal. We will continue current goal. Pt current nutrition is Clear Liquids with Nepro at 50 ml/hr. Last recorded weight is 127 kg, up from 123 kg on admit. Bowel Motility: +BM reported 05/10 Labs Reviewed: Glu 146, PO4 5.3, Cr 3.89, BUN 96 Meds Noted: Protonix, NS Skin: WNL Additional Notes: Patient started on clear liquids and is tolerating per nursing. Spoke with JOSH Borja regarding tube feeding formula. Recommend change to Nepro at 50 ml/hr due to elevated renal labs. Tube feeding providing 1980 kcal/89 gm protein/800 ml water. Flush 30 ml q 4 hours. Clear liquid trays will have diet supplement of ensure clear providing an additional 240 kcal and 8 gm protein. Agree with diet orders. Monitoring GI function, plan of care, weights, labs, orders Follow up Thursday/Thursday
[2024-05-12 10:35] LABS: Iron 23 ug/dL (49-181)
[2024-05-12 11:15] LABS: Percent Iron Saturation 16 % (20-50)
[2024-05-12 11:40] LABS: Folic Acid 7.9 ng/mL (2.76->20)
[2024-05-12 12:06] LABS: Glucose Point of Care 133 mg/dl (65-105)
[2024-05-12] MEDS: IRON SUCROSE COMPLEX 400 MG, IRON SUCROSE COMPLEX 100 MG in SODIUM CHLORIDE 0.9% IV 250 ML 78.57 MG IVPB (12:09)
[2024-05-12 12:54] LABS: Transferrin < 80 mg/dL (206-381)
--- NOTE | 2024-05-12 13:20 | P.PNNP_ITS ---
Progress Note: A&P Assessment and Plan (1) Acute kidney injury: Code(s): N17.9 - Acute kidney failure, unspecified Status: Acute Assessment and Plan: * a bit worse but relatively stable in the last several days * had improved to baseline (1.5mg/dl) on 04/30 * suspect initial insult to be of multifactorial etiology: * NSAID use * hypotension/hemodynmic instability/shock * sepsis/infection * third spacing * evaluation to date: * CT shows normal kidneys * renal u/s with simple cyst x 1 o/w unremarkable. * urine electrolytes are prerenal * CPK mildly elevated (but not enough to affect kidneys) * urine eosinophils negative * mild proteinuria * another acute insult noted by recent labs (since 05/02): * possible due to pre-renal factors, infection (UTI +/- pneumonia versus gastric leak) * recent imaging noted - no evidence of gastric leak * repeat urine studies (on 05/08) suggestive of UTI and prerenal azotemia * back off on IVFs since tolerating tube feeds * titrate FWF with tube feeds given elevated sodium level * follow trend of repeat labs and UOP (2) Stage 3b chronic kidney disease: Code(s): N18.32 - Chronic kidney disease, stage 3b Status: Chronic Assessment and Plan: * creatinine ~ 1.5mg/dl in November 2023 * suspect secondary to hypertension, peripheral vascular disease, and possibly chronic NSAID use as well as age-related change (3) Perforated gastric ulcer: Onset Date: 04/2024 Qualifiers: Gastric ulcer chronicity: acute Qualified Code(s): K25.1 - Acute gastric ulcer with perforation Code(s): K25.5 - Chronic or unspecified gastric ulcer with perforation Status: Acute Assessment and Plan: * suspect secondary to NSAID use * s/p exploratory laparotomy and repair of antral gastric ulcer with omental Clarence patch and placement of open gastrostomy tube (on 04/22) * completed course of antibiotics * TPN to be discontinued * tolerating G-tube feedings * General Surgery following (4) PAD (peripheral artery disease): Code(s): I73.9 - Peripheral vascular disease, unspecified Status: Acute Assessment and Plan: * CTA of left lower extremity noted * suspect acute on chronic issue * on anticoagulation (5) Acute respiratory failure: Code(s): J96.00 - Acute respiratory failure, unspecified whether with hypoxia or hypercapnia Status: Acute Assessment and Plan: * resolved * on room air * follow imaging and respiratory status * noted pleural effusion on CT of chest (6) Anemia: Code(s): D64.9 - Anemia, unspecified Status: Acute Assessment and Plan: * noted acute drop (on 05/10, 05/11, and 05/12) * due to RIC, CKD, and acute illness * anemia studies note iron deficiency * consider RADHA given renal function while hospitalized * PRBC transfusion per protocol * follow trend of H/H (7) Malnutrition following gastrointestinal surgery: Code(s): K91.2 - Postsurgical malabsorption, not elsewhere classified Status: Acute Assessment and Plan: * off TPN * tube feeds ongoing * eventual goal is to transition to oral intake (8) HTN (hypertension): Code(s): I10 - Essential (primary) hypertension Status: Acute Assessment and Plan: * blood pressure under reasonable control * on PRN hydralazine and clonidine patch * resume oral meds via G-tube when able * follow trend of hemodynamics Will continue to follow. L Subjective Date/time seen: 05/12/24 13:20 Interval history: Follow-up for acute kidney injury/acute renal failure. Renal function/creatinine has been up and down over the last few days but continues to have good urine output; tolerated PRBC transfusion yesterday but repeat labs this morning show hemoglobin down again -- another PRBC transfusion today; tolerating tube feeds at this time; no apparent distress noted. Exam 2 Narrative: General: elderly but WD/WN male in NAD Heart: normal S1 and S2; no rub Lungs: clear anteriorly; decreased at bases Abdomen: soft, nontender; some bowel sounds; +G-tube Extremities: no cyanosis or clubbing; trace - 1+ edema Skin: no rash Objective Data Vital Signs Vital Signs: Vital Signs Temp Pulse Resp BP Pulse Ox O2 Del Method 05/12/24 13:00 98.5 F 102 H 18 132/61 98 05/12/24 12:20 97.3 F L 94 18 148/65 H 98 05/12/24 12:05 97.3 F L 92 18 128/56 L 98 05/12/24 12:00 88 05/12/24 11:55 97.3 F L 92 18 128/56 L 98 05/12/24 11:15 98.5 F 92 18 144/55 H 98 05/12/24 10:15 97.9 F 90 18 128/56 L 98 05/12/24 09:15 98.3 F 94 18 150/59 H 100 05/12/24 09:00 97.5 F L 87 20 124/49 L 97 05/12/24 08:00 87 05/12/24 08:00 Room Air 05/12/24 05:44 98.2 F 88 14 148/52 H 97 05/12/24 04:00 88 05/12/24 00:00 94 05/11/24 20:02 98.7 F 87 16 148/50 H 98 05/11/24 20:00 95 Intake/Output Intake/Output: Intake & Output 05/09/24 05/10/24 05/11/24 05/12/24 23:59 23:59 23:59 23:59 Intake Total 1999 2350 1722 3595 Output Total 1060 3984 937 9123 Balance 940 2615 805 9952 Meds/Results Medications: Active Medications Generic Name Dose Route Start Last Admin Trade Name Freq PRN Reason Stop Dose Admin Acetaminophen 650 mg 04/26/24 22:19 04/26/24 22:57 Acetaminophen 650 Mg Suppository RECTAL 650 mg Q6H PRN Administration Mild Pain (1-3) or Fever Acetaminophen 650 mg 05/05/24 10:27 05/08/24 12:38 Acetaminophen Elixir 325 Mg/10.15 Ml Udc PO 650 mg Q6H PRN Administration Mild Pain (1-3) or Fever Artificial Tears 1 drop 04/27/24 08:37 Artificial Tears Ophth Soln 15 Ml Bottle EACH EYE QID PRN Dry Eye(s) Atorvastatin Calcium 20 mg 04/30/24 09:00 Atorvastatin 20 Mg Tablet BY MOUTH DAILY ROSY Clonidine HCl 1 patch 05/01/24 09:00 05/08/24 08:43 Clonidine 0.1 Mg/24 Hr Patch TRANSDERM 1 patch WEEKLY ROSY Administration Dextrose 12.5 gm 04/22/24 23:06 Dextrose 50% 25 Gm/50 Ml Syringe IV PUSH PRN PRN Hypoglycemia Protocol Enoxaparin Sodium 120 mg 05/09/24 06:00 05/12/24 05:50 Enoxaparin 120 Mg/0.8 Ml Syringe SUB-Q 120 mg Q24H ROSY Administration Glucagon 1 mg 04/22/24 23:06 Glucagon For Inj 1 Mg Vial IM PRN PRN Hypoglycemia Protocol Glucose 15 gm 04/22/24 23:06 Glucose Oral Gel 15 Gm Of Glucse In 37.5 Gm Tube PO PRN PRN Hypoglycemia Protocol Hydralazine HCl 10 mg 04/25/24 08:00 05/03/24 21:47 Hydralazine Hcl 20 Mg/Ml Vial IV PUSH 10 mg Q4H PRN Administration Blood Pressure - High Dextrose 1,000 mls @ 100 mls/hr 04/22/24 23:06 Dextrose 5% 1,000 Ml IVPB PRN PRN Hypoglycemia Protocol Sodium Chloride 250 mls @ 30 mls/hr 05/12/24 16:18 05/12/24 16:50 Normal Saline Iv IV CONT 05/13/24 00:37 Not Given .Q8H20M STA Ipratropium [place] 0.5 mg 05/04/24 09:32 Ipratropium Br 0.02% Inh Soln 0.5 Mg/2.5 Ml Vial INHALATION Q6HRT PRN Shortness Of Breath Levalbuterol HCl 0.63 mg 05/04/24 09:32 Levalbuterol Neb 1.25 Mg/3 Ml INHALATION Q6HRT PRN Shortness Of Breath Levofloxacin 750 mg 05/12/24 09:00 05/12/24 08:20 Levofloxacin 750 Mg Tablet PO 05/14/24 09:01 750 mg Q48HR ROSY Administration Lidocaine 1 patch 04/27/24 16:35 05/12/24 08:20 Lidocaine 5% Patch TRANSDERM 1 patch DAILY ROSY Administration Lorazepam 0.5 mg 04/27/24 19:01 05/10/24 23:50 Lorazepam Inj (*Crx) 2 Mg/Ml Vial IV PUSH 0.5 mg HS PRN Administration Sleep Morphine Sulfate 4 mg 04/22/24 22:02 05/12/24 15:59 Morphine Sulfate (*Crx) 4 Mg/Ml Inj IV PUSH 4 mg Q3H PRN Administration Pain Rated 7-10 Pantoprazole Sodium 40 mg 04/26/24 21:00 05/12/24 08:20 Pantoprazole Sodium Iv 40 Mg Vial IV PUSH 40 mg Q12HR ROSY Administration Sodium Chloride 10 ml 04/23/24 14:00 05/12/24 12:15 Central Line Flush IV PUSH Not Given Q8HR ROSY Sodium Chloride 20 ml 04/23/24 10:16 05/08/24 06:10 Central Line Flush IV PUSH 20 ml PRN PRN Administration after blood draws Sodium Chloride 10 ml 05/04/24 14:15 Central Line Flush IV PUSH PRN PRN with TPN bag changes Sodium Chloride 20 ml 05/04/24 14:15 05/12/24 05:50 Central Line Flush IV PUSH 20 ml PRN PRN Administration after blood draws Radiology Results: ITS Impressions Chest/Abdomen/Pelvis CTA 04/22/24 18:10 IMPRESSION: Perforated viscus with a large amount of free air and fluid, with mural thickening in the distal stomach and multiple punctate foci of extraluminal air in this area for which site of perforation is suspected. Renal Ultrasound 04/24/24 11:58 IMPRESSION: Simple cyst in the left kidney upper pole. Other appearances are unremarkable. Lower Extremity CTA 05/02/24 16:36 IMPRESSION: 1. Scattered atherosclerotic plaque in the arteries of the left lower limb as detailed above without a discrete hemodynamic significant stenosis. Runoff below the ankle in the left posterior tibial artery this supplies the foot. Atretic distal peroneal and anterior tibial arteries with intraluminal contrast becoming indiscernible at the level of the ankle and with no appreciable contrast in the dorsalis pedis artery. Chest X-Ray 05/08/24 08:14 IMPRESSION: Early infiltrate suspected within the right mid to lower lung field, as detailed above. Chest/Abdomen/Pelvis CT 05/08/24 10:43 IMPRESSION: Findings suggesting air and possible fluid extending from the lumen of the antrum of the stomach, with a small anterior collection, as detailed above. Repeat evaluation with Gastrografin via the gastrostomy would provide additional information. Upper GI Series 05/09/24 09:31 IMPRESSION: 1. Ulcer of the gastric antrum with contained extraluminal contrast similar to 04/28/2024. The extraluminal contrast distribution is worse than typically seen after Clarence patch repair. Abdomen CT 05/09/24 15:27 IMPRESSION: Redemonstration of a tract extending from the posterior superior margin of the antrum of the stomach only partially filled with oral contrast, perhaps demonstrating early healing. Labs Labs: Laboratory Tests 05/12/24 06:36 05/12/24 06:36 Calcium 7.8 L Phosphorus 5.3 H Magnesium 2.2 Iron 23 L TIBC 147 L % Saturation 16 L Transferrin < 80 Ferritin 842 Total Bilirubin 0.7 AST 49 ALT 35 Alkaline Phosphatase 172 H Total Protein 5.0 L Albumin 2.4 L Vitamin B12 575 Folate 7.9
--- NOTE | 2024-05-12 14:10 | PCPTNOTE ---
Attempted to see patient for PT, however patient was working with OT.
--- NOTE | 2024-05-12 16:15 | PC.NURSE ---
Hung pt's 2nd unit of blood at 1205 and forgot to press start on IV pump. Realized at 1610 that pt's blood was not running so I called the blood bank and they said to return the blood to the blood bank and put an order in for another unit.
[2024-05-12 18:15] LABS: Glucose Point of Care 141 mg/dl (65-105)
[2024-05-12 21:31] LABS: Hematocrit 27.4 % (42.0-52.0); Hemoglobin 8.6 g/dL (14.0-18.0)
[2024-05-13] VITALS (10 sets, daily range): BP systolic 127–135; BP diastolic 54–67; PULSE 81–88; RESP 16–20; TEMP 36.6–36.8; O2SAT 95–99
[2024-05-13 00:32] LABS: Glucose Point of Care 110 mg/dl (65-105)
[2024-05-13] MEDS: MORPHINE SULFATE (*CRX) 4 MG/ML INJ IV PUSH ×3 (02:03→16:59)
[2024-05-13] MEDS: CENTRAL LINE FLUSH 20 ML IV PUSH (05:48)
[2024-05-13] MEDS: CENTRAL LINE FLUSH 10 ML IV PUSH ×3 (05:48→21:07)
[2024-05-13] MEDS: ENOXAPARIN 120 MG/0.8 ML SYRINGE SUB-Q (05:48)
[2024-05-13 06:47] LABS: Alanine Aminotransferase 38 U/L (6-50); Albumin Level 2.5 g/dL (3.5-5.1); Alkaline Phosphatase 178 U/L (38-126); Anion Gap 11 mmol/L (4-12); Aspartate Amino Transferase 46 U/L (17-59); Bilirubin,Total 0.9 mg/dL (0.2-1.3); Blood Urea Nitrogen 96 mg/dL (9-20); Carbon Dioxide 18 mmol/L (22-30); Chloride 115 mmol/L (98-107); Estimated CRCL calculation 20 ml/min; Estimated Glomerular Filt Rate 15; Glucose 106 mg/dL (65-110); Phosphorus 5.8 mg/dL (2.5-4.5); Potassium 4.3 mmol/L (3.4-5.0); Sodium 144 mmol/L (137-145)
[2024-05-13 07:07] LABS: Hematocrit 26.6 % (42.0-52.0); Hemoglobin 8.3 g/dL (14.0-18.0); Immature Platelet Fraction Pct 9.7 % (0.9-11.2); Mean Corpuscular HGB Conc 31.2 g/dl (32-36); Mean Corpuscular Hemoglobin 29.5 pg (26-34); Mean Corpuscular Volume 94.7 fl (80-100); Mean Platelet Volume 13.8 fl (7.4-10.4); Platelet Count Result 102 k/mm3 (150-375); Red Blood Count 2.81 M/mm3 (4.6-6.20); Red Cell Distribution Width 15.9 % (11.5-14.5)
[2024-05-13 07:40] LABS: Band Neutrophils Percent 8 % (0-6); Basophils Absolute Manual 0.13 K/mm3 (0.0-0.1); Basophils Percent Manual 1 % (0-1); Eosinophils Absolute Manual 0.39 K/mm3 (0.02-0.50); Eosinophils Percent Manual 3 % (0-4); Lymphocytes Absolute Manual 0.65 K/mm3 (1.1-4.5); Lymphocytes Percent Manual 5 % (18-44); Monocytes Absolute Manual 0.65 K/mm3 (0.1-0.90); Monocytes Percent Manual 5 % (3-9); Neutrophils Absolute Manual 11.18 K/mm3 (1.3-6.7); Neutrophils Percent Manual 78 % (46-73); Total Cells Counted 100
[2024-05-13 07:41] LABS: Anisocytosis 1+; Burr Cells 1+; Giant Platelets Present; Hypochromasia 1+; Large Platelets Present; Platelet Estimate Decreased (Adequate); Schistocytes None Seen
[2024-05-13] MEDS: LIDOCAINE 5% PATCH 1 PATCH TRANSDERM (09:27)
[2024-05-13] MEDS: PANTOPRAZOLE SODIUM IV 40 MG VIAL IV PUSH ×2 (09:27→21:06)
--- NOTE | 2024-05-13 11:03 | P.PNNP_ITS ---
Progress Note: A&P Assessment and Plan (1) Acute kidney injury: Code(s): N17.9 - Acute kidney failure, unspecified Status: Acute Assessment and Plan: * a bit worse in the last several days (but good urine output noted) * had improved to baseline (1.5mg/dl) on 04/30 * suspect initial insult to be of multifactorial etiology: * NSAID use * hypotension/hemodynmic instability/shock * sepsis/infection * third spacing * evaluation to date: * CT shows normal kidneys * renal u/s with simple cyst x 1 o/w unremarkable. * urine electrolytes are prerenal * CPK mildly elevated (but not enough to affect kidneys) * urine eosinophils negative * mild proteinuria * another acute insult noted by recent labs (since 05/02): * possible due to pre-renal factors, infection (UTI +/- pneumonia versus gastric leak) * recent imaging noted - no evidence of gastric leak * repeat urine studies (on 05/08) suggestive of UTI and prerenal azotemia * back off on IVFs since tolerating tube feeds * titrate FWF with tube feeds to keep sodium level * follow trend of repeat labs and UOP (2) Stage 3b chronic kidney disease: Code(s): N18.32 - Chronic kidney disease, stage 3b Status: Chronic Assessment and Plan: * creatinine ~ 1.5mg/dl in November 2023 * suspect secondary to hypertension, peripheral vascular disease, and possibly chronic NSAID use as well as age-related change (3) Perforated gastric ulcer: Onset Date: 04/2024 Qualifiers: Gastric ulcer chronicity: acute Qualified Code(s): K25.1 - Acute gastric ulcer with perforation Code(s): K25.5 - Chronic or unspecified gastric ulcer with perforation Status: Acute Assessment and Plan: * suspect secondary to NSAID use * s/p exploratory laparotomy and repair of antral gastric ulcer with omental Clarence patch and placement of open gastrostomy tube (on 04/22) * completed course of antibiotics * TPN to be discontinued * tolerating G-tube feedings * General Surgery following (4) PAD (peripheral artery disease): Code(s): I73.9 - Peripheral vascular disease, unspecified Status: Acute Assessment and Plan: * CTA of left lower extremity noted * suspect acute on chronic issue * on anticoagulation (5) Acute respiratory failure: Code(s): J96.00 - Acute respiratory failure, unspecified whether with hypoxia or hypercapnia Status: Acute Assessment and Plan: * resolved * on room air * follow imaging and respiratory status * noted pleural effusion on CT of chest (6) Anemia: Code(s): D64.9 - Anemia, unspecified Status: Acute Assessment and Plan: * noted acute drop (on 05/10, 05/11, and 05/12) * due to RIC, CKD, and acute illness * anemia studies note iron deficiency * consider RADHA given renal function while hospitalized * PRBC transfusion per protocol * follow trend of H/H (7) Malnutrition following gastrointestinal surgery: Code(s): K91.2 - Postsurgical malabsorption, not elsewhere classified Status: Acute Assessment and Plan: * off TPN * tube feeds ongoing * eventual goal is to transition to oral intake (8) HTN (hypertension): Code(s): I10 - Essential (primary) hypertension Status: Acute Assessment and Plan: * blood pressure under reasonable control * on PRN hydralazine and clonidine patch * resume oral meds via G-tube when able * follow trend of hemodynamics Will continue to follow. L Subjective Date/time seen: 05/13/24 11:03 Interval history: Follow-up for acute kidney injury/acute renal failure on chronic kidney disease. Renal function/creatinine a tad worse by recent labs although continues to make reasonable urine output; tolerated PRBC transfusiona (2 units) yesterday without any issues or problems with improvement in H/H noted; no other acute issues/complaints voiced at this time; tolerating tube feeds at this time. Exam 2 Narrative: General: elderly but WD/WN male in NAD Heart: normal S1 and S2; no rub Lungs: clear anteriorly; decreased at bases Abdomen: soft, nontender; some bowel sounds; +G-tube Extremities: no cyanosis or clubbing; trace - 1+ edema Skin: no nodules Objective Data Vital Signs Vital Signs: Vital Signs Temp Pulse Resp BP Pulse Ox O2 Del Method 05/13/24 11:00 98.3 F 84 20 127/54 L 98 05/13/24 09:30 Room Air 05/13/24 08:00 84 05/13/24 07:45 97.8 F 83 18 128/54 L 99 05/13/24 06:45 98.2 F 81 16 135/60 95 05/13/24 04:00 82 05/13/24 00:00 85 05/12/24 21:37 98.0 F 87 16 148/58 H 96 05/12/24 20:10 98.0 F 87 20 144/62 H 97 05/12/24 20:00 86 05/12/24 19:00 97.7 F 87 18 135/54 L 96 05/12/24 18:00 98.0 F 96 16 132/55 L 96 05/12/24 17:00 98.8 F 90 18 132/49 L 96 05/12/24 16:45 98.7 F 91 18 137/56 L 95 Intake/Output Intake/Output: Intake & Output 05/10/24 05/11/24 05/12/24 05/13/24 23:59 23:59 23:59 23:59 Intake Total 2350 1722 4385 800 Output Total 8043 210 5038 1083 Balance 5919 709 0408 -283 Meds/Results Medications: Active Medications Generic Name Dose Route Start Last Admin Trade Name Freq PRN Reason Stop Dose Admin Acetaminophen 650 mg 04/26/24 22:19 04/26/24 22:57 Acetaminophen 650 Mg Suppository RECTAL 650 mg Q6H PRN Administration Mild Pain (1-3) or Fever Acetaminophen 650 mg 05/05/24 10:27 05/08/24 12:38 Acetaminophen Elixir 325 Mg/10.15 Ml Udc PO 650 mg Q6H PRN Administration Mild Pain (1-3) or Fever Artificial Tears 1 drop 04/27/24 08:37 Artificial Tears Ophth Soln 15 Ml Bottle EACH EYE QID PRN Dry Eye(s) Atorvastatin Calcium 20 mg 04/30/24 09:00 Atorvastatin 20 Mg Tablet BY MOUTH DAILY ROSY Clonidine HCl 1 patch 05/01/24 09:00 05/08/24 08:43 Clonidine 0.1 Mg/24 Hr Patch TRANSDERM 1 patch WEEKLY ROSY Administration Dextrose 12.5 gm 04/22/24 23:06 Dextrose 50% 25 Gm/50 Ml Syringe IV PUSH PRN PRN Hypoglycemia Protocol Enoxaparin Sodium 120 mg 05/09/24 06:00 05/13/24 05:48 Enoxaparin 120 Mg/0.8 Ml Syringe SUB-Q 120 mg Q24H ROSY Administration Glucagon 1 mg 04/22/24 23:06 Glucagon For Inj 1 Mg Vial IM PRN PRN Hypoglycemia Protocol Glucose 15 gm 04/22/24 23:06 Glucose Oral Gel 15 Gm Of Glucse In 37.5 Gm Tube PO PRN PRN Hypoglycemia Protocol Hydralazine HCl 10 mg 04/25/24 08:00 05/03/24 21:47 Hydralazine Hcl 20 Mg/Ml Vial IV PUSH 10 mg Q4H PRN Administration Blood Pressure - High Dextrose 1,000 mls @ 100 mls/hr 04/22/24 23:06 Dextrose 5% 1,000 Ml IVPB PRN PRN Hypoglycemia Protocol Ipratropium [place] 0.5 mg 05/04/24 09:32 Ipratropium Br 0.02% Inh Soln 0.5 Mg/2.5 Ml Vial INHALATION Q6HRT PRN Shortness Of Breath Levalbuterol HCl 0.63 mg 05/04/24 09:32 Levalbuterol Neb 1.25 Mg/3 Ml INHALATION Q6HRT PRN Shortness Of Breath Levofloxacin 750 mg 05/12/24 09:00 05/12/24 08:20 Levofloxacin 750 Mg Tablet PO 05/14/24 09:01 750 mg Q48HR ROSY Administration Lidocaine 1 patch 04/27/24 16:35 05/13/24 09:27 Lidocaine 5% Patch TRANSDERM 1 patch DAILY ROSY Administration Lorazepam 0.5 mg 04/27/24 19:01 05/10/24 23:50 Lorazepam Inj (*Crx) 2 Mg/Ml Vial IV PUSH 0.5 mg HS PRN Administration Sleep Morphine Sulfate 4 mg 04/22/24 22:02 05/13/24 09:30 Morphine Sulfate (*Crx) 4 Mg/Ml Inj IV PUSH 4 mg Q3H PRN Administration Pain Rated 7-10 Ondansetron HCl 4 mg 05/13/24 11:22 05/13/24 11:57 Ondansetron Inj 4 Mg/2 Ml Vial IV PUSH 4 mg Q6H PRN Administration Nausea And Vomiting Pantoprazole Sodium 40 mg 04/26/24 21:00 05/13/24 09:27 Pantoprazole Sodium Iv 40 Mg Vial IV PUSH 40 mg Q12HR ROSY Administration Sodium Chloride 10 ml 04/23/24 14:00 05/13/24 13:35 Central Line Flush IV PUSH 10 ml Q8HR ROSY Administration Sodium Chloride 20 ml 04/23/24 10:16 05/08/24 06:10 Central Line Flush IV PUSH 20 ml PRN PRN Administration after blood draws Sodium Chloride 10 ml 05/04/24 14:15 Central Line Flush IV PUSH PRN PRN with TPN bag changes Sodium Chloride 20 ml 05/04/24 14:15 05/13/24 05:48 Central Line Flush IV PUSH 20 ml PRN PRN Administration after blood draws Radiology Results: ITS Impressions Chest/Abdomen/Pelvis CTA 04/22/24 18:10 IMPRESSION: Perforated viscus with a large amount of free air and fluid, with mural thickening in the distal stomach and multiple punctate foci of extraluminal air in this area for which site of perforation is suspected. Renal Ultrasound 04/24/24 11:58 IMPRESSION: Simple cyst in the left kidney upper pole. Other appearances are unremarkable. Lower Extremity CTA 05/02/24 16:36 IMPRESSION: 1. Scattered atherosclerotic plaque in the arteries of the left lower limb as detailed above without a discrete hemodynamic significant stenosis. Runoff below the ankle in the left posterior tibial artery this supplies the foot. Atretic distal peroneal and anterior tibial arteries with intraluminal contrast becoming indiscernible at the level of the ankle and with no appreciable contrast in the dorsalis pedis artery. Chest X-Ray 05/08/24 08:14 IMPRESSION: Early infiltrate suspected within the right mid to lower lung field, as detailed above. Chest/Abdomen/Pelvis CT 05/08/24 10:43 IMPRESSION: Findings suggesting air and possible fluid extending from the lumen of the antrum of the stomach, with a small anterior collection, as detailed above. Repeat evaluation with Gastrografin via the gastrostomy would provide additional information. Upper GI Series 05/09/24 09:31 IMPRESSION: 1. Ulcer of the gastric antrum with contained extraluminal contrast similar to 04/28/2024. The extraluminal contrast distribution is worse than typically seen after Clarence patch repair. Abdomen CT 05/09/24 15:27 IMPRESSION: Redemonstration of a tract extending from the posterior superior margin of the antrum of the stomach only partially filled with oral contrast, perhaps demonstrating early healing. Labs Labs: Laboratory Tests 05/13/24 06:32 05/13/24 06:32 Calcium 8.0 L Phosphorus 5.8 H Total Bilirubin 0.9 AST 46 ALT 38 Alkaline Phosphatase 178 H Total Protein 6.0 L Albumin 2.5 L
--- NOTE | 2024-05-13 11:27 | P.PNIM_ITS ---
Progress Note: A&P Assessment and Plan (1) Perforated abdominal viscus: Code(s): R19.8 - Other specified symptoms and signs involving the digestive system and abdomen Status: Acute Assessment and Plan: * Septic shock in setting of peritonitis with perforated gastric ulcer: * Shock has resolved * Status post exploratory laparotomy with repair of antral gastric ulcer with omental Clarence patch, open gastrostomy tube * CT of the abdomen: Redemonstration of a tract extending from the posterior superior margin of the antrum of the stomach only partially filled with oral contrast, perhaps demonstrating early healing. * Surgery is following * Continue levofloxacin for now * Passed swallow study. * Noted bowel movement with bowel sounds present * Diet advanced to clear liquids, with tube feeding * Drains present with minimal output * Continue with PPI. * Pain regimen. * Monitor labs. * Upper GI series showed: FINDINGS: There is an ulcer of the antrum of the stomach. There is contrast in a 6 x 3 cm area outside the expected ellison of the stomach. 05/13 * General surgery following * Finished antibiotics today * Diet advanced to soft diet per General surgery * Continue PPI * Continue pain medications as needed (2) Pneumonia: Code(s): J18.9 - Pneumonia, unspecified organism Status: Acute Assessment and Plan: * Chest xray from 05/08/2024 showed early infiltrate * Continue levaquin for now * Encourage IS use * Cornet therapy * nebs PRN * No oxygen demand * Continue current therapy 05/13 * Patient finished antibiotics today * Currently on room air * Keep oxygen saturation greater than 92% (3) Malnutrition following gastrointestinal surgery: Code(s): K91.2 - Postsurgical malabsorption, not elsewhere classified Status: Acute Assessment and Plan: * Passed swallow study. * Continue tube feedings * NS @ 50ml/hr * Passed swallow study * Advance deit per surgery's recommendations * Surgery following. 05/13 * Patient advanced to soft diet today per General surgery recommendation * Continue to monitor (4) Acute kidney injury superimposed on stage 3b chronic kidney disease: Code(s): N17.9 - Acute kidney failure, unspecified; N18.32 - Chronic kidney disease, stage 3b Status: Acute Assessment and Plan: * Avoid nephrotoxins * BUN 95, Creatinine 3.83, & GFR 15 * today BUN 96, Creatinine is 3.89 * baseline most likely around 1.5 * NS@ 50 ml/hr stopped for now * Trial with lasix 40mg x 1 on 05/11/2024 with worsening kidney function * Nephrology following * Renal ultrasound was unremarkable for any acute issues. * trend labs * Adjust therapy as indicated 05/13 * Creatinine today is 4.03, EGFR 15 * Nephrology following (5) Anemia: Code(s): D64.9 - Anemia, unspecified Status: Acute Assessment and Plan: * H&H 6.7/21.2 from 05/10/2024 * Patient received 1 unit of PRBC's. * Post transfusion H&H was 7.4/23.3. * Current H/H 6.6/20.9 * 1 unit PRBCs ordered * Could be related to fluid overload as well * Trend CBC. * transfuse if hgb <7.0 * anemia labs obtained iron 23, TIBC 147,% saturation 16, transferrin less than 80, ferritin 842 * 500 mg of IV iron ordered and given 05/13 * Hemoglobin 8.3 * Transfuse if hemoglobin less than 7.0 * Continue to trend (6) HTN (hypertension): Code(s): I10 - Essential (primary) hypertension Status: Acute Assessment and Plan: * Blood pressure 148/52 * Continue Clonidine patch and Hydralazine PRN. * Trend BP * Adjust therapy as indicated 05/13 * Blood pressure ranging 127/54 to 148/58 * No change to current treatment plan (7) Generalized weakness: Code(s): R53.1 - Weakness Status: Acute Assessment and Plan: * PT/OT 05/13 * No change to current treatment plan (8) Hypokalemia: Code(s): E87.6 - Hypokalemia Status: Acute Assessment and Plan: * Potassium 4.2 * Monitor levels. * Trend labs * Replace as indicated 05/13 * Resolved (9) Hypernatremia: Code(s): E87.0 - Hyperosmolality and hypernatremia Status: Acute Assessment and Plan: * Sodium slightly elevated at 144 * Continue to trend * Stop IV fluid * resolved 05/13 * Resolved Time Spent With Patient Time with patient: Greater than 35 minutes Subjective Date/time seen: 05/13/24 11:27 Interval history: Interval summary: This is a 78-year-old male with a significant past medical history of hype rtension, hyperlipidemia, osteoarthritis, umbilical hernia repair, perforated appendix status post resection in 2022 who presented to the hospital with 3 days sharp radiating abdominal pain. Workup in the hospital included a CT of the abdomen and pelvis which demonstrated a perforated viscus with large amount of free air and fluid with marked wall thickening of the distal stomach and multiple punctuate foci of extraluminal air with suspected perforated ulcer. General surgery was consulted and took patient directly to the OR and performed a exploratory laparotomy with repair of antral gastric ulcer with omental Clarence patch she also had G-tube placed while in the OR on 04/22/2024. He was then admitted to ICU with postoperative shock requiring pressor support and remained intubated. He was then extubated on 04/25/2024. He was noted to be off pressor support on 04/24/2024. He then was placed on Zosyn and Diflucan per surgery which was stopped on 05/05/2024. He was then downgraded out of ICU status to regular floor where he has been working with PT and OT. Subjective: Patient denies any new complaints today. He does still have 3 to 4+ pitting edema to both lower extremities. Labs and imaging reviewed. Review of Systems Review of Systems: All systems reviewed & are unremarkable except as noted in HPI and below Exam Narrative: General: In no acute distress, well nourished Head: atraumatic, no encephalopathy Eyes: PERRLA, sclera clear ENT: moist mucous membranes, nasal passages clear Neck: supple, no JVD, no adenopathy, trachea midline Cardiac: Normal S1 and S2. No murmur, gallops or friction rubs, peripheral pulses intact. Respiratory: Lungs clear to auscultation, no adventitious lung sounds currently on room air Gastrointestinal: soft, non-distended, non-tender, normoactive bowel sounds. : voiding without difficulty. Extremities: moves all extremities well, no edema Skin: ELSA drain x2 in place, midline incision well approximated without redness or drainage. Neuro: Alert and oriented x4, cranial nerves intact, no neuro deficits. Psych: normal mood, normal affect, interactive Objective Data Vital Signs Vital Signs: Vital Signs - 24 hr 05/12/24 11:55 05/12/24 12:00 05/12/24 12:05 Temperature 97.3 F L 97.3 F L Pulse Rate 92 88 92 Respiratory Rate 18 18 Blood Pressure 128/56 L 128/56 L Pulse Oximetry 98 98 Oxygen Delivery 05/12/24 12:20 05/12/24 14:00 05/12/24 14:05 Temperature 97.3 F L 98.5 F Pulse Rate 94 102 H Respiratory Rate 18 18 Blood Pressure 148/65 H 132/61 Pulse Oximetry 98 98 Oxygen Delivery Room Air 05/12/24 16:00 05/12/24 16:45 05/12/24 17:00 Temperature 98.7 F 98.8 F Pulse Rate 93 91 90 Respiratory Rate 18 18 Blood Pressure 137/56 L 132/49 L Pulse Oximetry 95 96 Oxygen Delivery 05/12/24 18:00 05/12/24 19:00 05/12/24 20:00 Temperature 98.0 F 97.7 F Pulse Rate 96 87 86 Respiratory Rate 16 18 Blood Pressure 132/55 L 135/54 L Pulse Oximetry 96 96 Oxygen Delivery 05/12/24 20:10 05/12/24 21:37 05/13/24 00:00 Temperature 98.0 F 98.0 F Pulse Rate 87 87 85 Respiratory Rate 20 16 Blood Pressure 144/62 H 148/58 H Pulse Oximetry 97 96 Oxygen Delivery 05/13/24 04:00 05/13/24 06:45 05/13/24 07:45 Temperature 98.2 F 97.8 F Pulse Rate 82 81 83 Respiratory Rate 16 18 Blood Pressure 135/60 128/54 L Pulse Oximetry 95 99 Oxygen Delivery 05/13/24 08:00 05/13/24 09:30 Temperature Pulse Rate 84 Respiratory Rate Blood Pressure Pulse Oximetry Oxygen Delivery Room Air Intake/Output Intake/Output: Intake & Output 05/10/24 05/11/24 05/12/24 05/13/24 23:59 23:59 23:59 23:59 Intake Total 2350 1722 4385 800 Output Total 3838 724 7666 608 Balance 1521 514 3233 192 Meds/Results Medications: Active Medications Generic Name Dose Route Start Last Admin Trade Name Freq PRN Reason Stop Dose Admin Acetaminophen 650 mg 04/26/24 22:19 04/26/24 22:57 Acetaminophen 650 Mg Suppository RECTAL 650 mg Q6H PRN Administration Mild Pain (1-3) or Fever Acetaminophen 650 mg 05/05/24 10:27 05/08/24 12:38 Acetaminophen Elixir 325 Mg/10.15 Ml Udc PO 650 mg Q6H PRN Administration Mild Pain (1-3) or Fever Artificial Tears 1 drop 04/27/24 08:37 Artificial Tears Ophth Soln 15 Ml Bottle EACH EYE QID PRN Dry Eye(s) Atorvastatin Calcium 20 mg 04/30/24 09:00 Atorvastatin 20 Mg Tablet BY MOUTH DAILY ROSY Clonidine HCl 1 patch 05/01/24 09:00 05/08/24 08:43 Clonidine 0.1 Mg/24 Hr Patch TRANSDERM 1 patch WEEKLY ROSY Administration Dextrose 12.5 gm 04/22/24 23:06 Dextrose 50% 25 Gm/50 Ml Syringe IV PUSH PRN PRN Hypoglycemia Protocol Enoxaparin Sodium 120 mg 05/09/24 06:00 05/13/24 05:48 Enoxaparin 120 Mg/0.8 Ml Syringe SUB-Q 120 mg Q24H ROSY Administration Glucagon 1 mg 04/22/24 23:06 Glucagon For Inj 1 Mg Vial IM PRN PRN Hypoglycemia Protocol Glucose 15 gm 04/22/24 23:06 Glucose Oral Gel 15 Gm Of Glucse In 37.5 Gm Tube PO PRN PRN Hypoglycemia Protocol Hydralazine HCl 10 mg 04/25/24 08:00 05/03/24 21:47 Hydralazine Hcl 20 Mg/Ml Vial IV PUSH 10 mg Q4H PRN Administration Blood Pressure - High Dextrose 1,000 mls @ 100 mls/hr 04/22/24 23:06 Dextrose 5% 1,000 Ml IVPB PRN PRN Hypoglycemia Protocol Ipratropium [place] 0.5 mg 05/04/24 09:32 Ipratropium Br 0.02% Inh Soln 0.5 Mg/2.5 Ml Vial INHALATION Q6HRT PRN Shortness Of Breath Levalbuterol HCl 0.63 mg 05/04/24 09:32 Levalbuterol Neb 1.25 Mg/3 Ml INHALATION Q6HRT PRN Shortness Of Breath Levofloxacin 750 mg 05/12/24 09:00 05/12/24 08:20 Levofloxacin 750 Mg Tablet PO 05/14/24 09:01 750 mg Q48HR ROSY Administration Lidocaine 1 patch 04/27/24 16:35 05/13/24 09:27 Lidocaine 5% Patch TRANSDERM 1 patch DAILY ROSY Administration Lorazepam 0.5 mg 04/27/24 19:01 05/10/24 23:50 Lorazepam Inj (*Crx) 2 Mg/Ml Vial IV PUSH 0.5 mg HS PRN Administration Sleep Morphine Sulfate 4 mg 04/22/24 22:02 05/13/24 09:30 Morphine Sulfate (*Crx) 4 Mg/Ml Inj IV PUSH 4 mg Q3H PRN Administration Pain Rated 7-10 Ondansetron HCl 4 mg 05/13/24 11:22 Ondansetron Inj 4 Mg/2 Ml Vial IV PUSH Q6H PRN Nausea And Vomiting Pantoprazole Sodium 40 mg 04/26/24 21:00 05/13/24 09:27 Pantoprazole Sodium Iv 40 Mg Vial IV PUSH 40 mg Q12HR ROSY Administration Sodium Chloride 10 ml 04/23/24 14:00 05/13/24 05:48 Central Line Flush IV PUSH 10 ml Q8HR ROSY Administration Sodium Chloride 20 ml 04/23/24 10:16 05/08/24 06:10 Central Line Flush IV PUSH 20 ml PRN PRN Administration after blood draws Sodium Chloride 10 ml 05/04/24 14:15 Central Line Flush IV PUSH PRN PRN with TPN bag changes Sodium Chloride 20 ml 05/04/24 14:15 05/13/24 05:48 Central Line Flush IV PUSH 20 ml PRN PRN Administration after blood draws Radiology Results: ITS Impressions Chest/Abdomen/Pelvis CTA 04/22/24 18:10 IMPRESSION: Perforated viscus with a large amount of free air and fluid, with mural thickening in the distal stomach and multiple punctate foci of extraluminal air in this area for which site of perforation is suspected. Renal Ultrasound 04/24/24 11:58 IMPRESSION: Simple cyst in the left kidney upper pole. Other appearances are unremarkable. Lower Extremity CTA 05/02/24 16:36 IMPRESSION: 1. Scattered atherosclerotic plaque in the arteries of the left lower limb as detailed above without a discrete hemodynamic significant stenosis. Runoff below the ankle in the left posterior tibial artery this supplies the foot. Atretic distal peroneal and anterior tibial arteries with intraluminal contrast becoming indiscernible at the level of the ankle and with no appreciable contrast in the dorsalis pedis artery. Chest X-Ray 05/08/24 08:14 IMPRESSION: Early infiltrate suspected within the right mid to lower lung field, as detailed above. Chest/Abdomen/Pelvis CT 05/08/24 10:43 IMPRESSION: Findings suggesting air and possible fluid extending from the lumen of the antrum of the stomach, with a small anterior collection, as detailed above. Repeat evaluation with Gastrografin via the gastrostomy would provide additional information. Upper GI Series 05/09/24 09:31 IMPRESSION: 1. Ulcer of the gastric antrum with contained extraluminal contrast similar to 04/28/2024. The extraluminal contrast distribution is worse than typically seen after Clarence patch repair. Abdomen CT 05/09/24 15:27 IMPRESSION: Redemonstration of a tract extending from the posterior superior margin of the antrum of the stomach only partially filled with oral contrast, perhaps demonstrating early healing. Labs Labs: Laboratory Results - last 24 hr 04/22/24 05/10/24 05/12/24 17:42 07:47 09:51 WBC RBC Hgb Hct MCV MCH MCHC RDW Plt Count MPV Immature Gran % (Auto) Neut % (Auto) Lymph % (Auto) [place] % (Auto) Eos % (Auto) Baso % (Auto) Lymph # (Auto) [place] # (Auto) Eos # (Auto) Baso # (Auto) Abs Immat Gran (auto) Absolute Neuts (auto) Absolute Nucleated RBC Total Counted Neutrophils % (Manual) Band Neutrophils % Lymphocytes % (Manual) Monocytes % (Manual) Eosinophils % (Manual) Basophils % (Manual) Nucleated RBC % Abs Neuts (Manual) Abs Lymphs (Manual) Abs Monocytes (Manual) Absolute Eos (Manual) Abs Basophils (Manual) Platelet Estimate Large Platelets Giant Platelets % Immature Plt Fraction Hypochromasia Anisocytosis Fredy Cells Schistocytes Sodium Potassium Chloride Carbon Dioxide Anion Gap BUN Creatinine Estim Creat Clear Calc Estimated GFR Glucose POC Capillary Glucose Calcium Phosphorus Transferrin < 80 L Total Bilirubin AST ALT Alkaline Phosphatase Total Protein Albumin Vitamin B12 575.0 Folate 7.9 Blood Type A Positive Antibody Screen Negative Crossmatch See Detail See Detail 05/12/24 05/12/24 05/12/24 11:58 18:10 21:22 WBC RBC Hgb 8.6 L Hct 27.4 L MCV MCH MCHC RDW Plt Count MPV Immature Gran % (Auto) Neut % (Auto) Lymph % (Auto) [place] % (Auto) Eos % (Auto) Baso % (Auto) Lymph # (Auto) [place] # (Auto) Eos # (Auto) Baso # (Auto) Abs Immat Gran (auto) Absolute Neuts (auto) Absolute Nucleated RBC Total Counted Neutrophils % (Manual) Band Neutrophils % Lymphocytes % (Manual) Monocytes % (Manual) Eosinophils % (Manual) Basophils % (Manual) Nucleated RBC % Abs Neuts (Manual) Abs Lymphs (Manual) Abs Monocytes (Manual) Absolute Eos (Manual) Abs Basophils (Manual) Platelet Estimate Large Platelets Giant Platelets % Immature Plt Fraction Hypochromasia Anisocytosis Fredy Cells Schistocytes Sodium Potassium Chloride Carbon Dioxide Anion Gap BUN Creatinine Estim Creat Clear Calc Estimated GFR Glucose POC Capillary Glucose 133 H 141 H Calcium Phosphorus Transferrin Total Bilirubin AST ALT Alkaline Phosphatase Total Protein Albumin Vitamin B12 Folate Blood Type Antibody Screen Crossmatch 05/13/24 05/13/24 00:20 06:32 WBC 13.0 H RBC 2.81 L Hgb 8.3 L Hct 26.6 L MCV 94.7 MCH 29.5 MCHC 31.2 L RDW 15.9 H Plt Count 102 L MPV 13.8 H Immature Gran % (Auto) Not Reportable Neut % (Auto) Not Reportable Lymph % (Auto) Not Reportable [place] % (Auto) Not Reportable Eos % (Auto) Not Reportable Baso % (Auto) Not Reportable Lymph # (Auto) Not Reportable [place] # (Auto) Not Reportable Eos # (Auto) Not Reportable Baso # (Auto) Not Reportable Abs Immat Gran (auto) Not Reportable Absolute Neuts (auto) Not Reportable Absolute Nucleated RBC Not Reportable Total Counted 100 Neutrophils % (Manual) 78 H Band Neutrophils % 8 H Lymphocytes % (Manual) 5 L Monocytes % (Manual) 5 Eosinophils % (Manual) 3 Basophils % (Manual) 1 Nucleated RBC % Not Reportable Abs Neuts (Manual) 11.18 H Abs Lymphs (Manual) 0.65 L Abs Monocytes (Manual) 0.65 Absolute Eos (Manual) 0.39 Abs Basophils (Manual) 0.13 H Platelet Estimate Decreased Large Platelets Present Giant Platelets Present % Immature Plt Fraction 9.7 Hypochromasia 1+ Anisocytosis 1+ [place] Cells 1+ Schistocytes None seen Sodium 144 Potassium 4.3 Chloride 115 H Carbon Dioxide 18 L Anion Gap 11 BUN 96 H Creatinine 4.03 H Estim Creat Clear Calc 20 Estimated GFR 15 L Glucose 106 POC Capillary Glucose 110 H Calcium 8.0 L Phosphorus 5.8 H Transferrin Total Bilirubin 0.9 AST 46 ALT 38 Alkaline Phosphatase 178 H Total Protein 6.0 L Albumin 2.5 L Vitamin B12 Folate Blood Type Antibody Screen Crossmatch Quality VTE Prophylaxis VTE prophylaxis: mechanical ordered and pharmacologic ordered
--- NOTE | 2024-05-13 11:30 | PCPTNOTE ---
Attempted to see patient for PT, however patient declined due to working with OT earlier and reported he was too worn out to do PT.
[2024-05-13] MEDS: ONDANSETRON INJ 4 MG/2 ML VIAL IV PUSH ×2 (11:57→17:45)
--- NOTE | 2024-05-13 11:59 | PCRCNOTE ---
Nurse called Rt and said pt was SOB and needed a tx. Rt to bedside, pt refused tx. RN aware.
[2024-05-13 12:07] LABS: Glucose Point of Care 104 mg/dl (65-105)
--- NOTE | 2024-05-13 13:51 | PCNFU ---
Nutrition Follow-Up Complete: Inadequate oral intake related to altered GI function as evidenced by need for full TPN goal: Meet estimated nutrition needs Patient will continue current goal. Pt current nutrition is Full Liquids with Nutritional Ice Cream and Ensure Enlive. Last recorded weight is 127 kg, up from 123 kg on admit. Bowel Motility: Last reported BM 05/10 Labs Reviewed: PO4 5.8, BUN 96, ,Cr 4.03, Alb 2.5, Hgb 8.3 Meds Noted: Protonix,Lipitor. Skin: WNL Additional Notes: diet order have advanced to full liquids, tube feedings have been discontinued. Oral Intake poor, 0-10%, nausea reported at breakfast. PO intake encouraged. Will continue to monitor for any further nutritional interventions. Monitoring diet orders, GI function, plan of care, weights, labs, orders every 3 days.
--- NOTE | 2024-05-13 14:01 | P.PN_ITS ---
Progress Note: A&P Assessment and Plan (1) PAD (peripheral artery disease): Code(s): I73.9 - Peripheral vascular disease, unspecified Status: Acute Assessment and Plan: Patient remains on treatment doses of Lovenox subQ. Will eventually convert to antiplatelet therapy by using Plavix or Eliquis for his PAD. (2) Perforated gastric ulcer: Onset Date: 04/2024 Qualifiers: Gastric ulcer chronicity: acute Qualified Code(s): K25.1 - Acute gastr ic ulcer with perforation Code(s): K25.5 - Chronic or unspecified gastric ulcer with perforation Status: Acute Assessment and Plan: Repair with Clarence patch. Tolerating full liquids. Abdominal exam is benign. Output from drains is minimal. We will go ahead advanced to soft solid food with continued Ensure supplements. (3) Malnutrition following gastrointestinal surgery: Code(s): K91.2 - Postsurgical malabsorption, not elsewhere classified Status: Acute Assessment and Plan: Tube feeds are now off. TPN is off. Advance diet to soft diet with supplements. (4) Acute kidney injury: Code(s): N17.9 - Acute kidney failure, unspecified Status: Acute Assessment and Plan: Creatinine is now about 4. Nephrology is following. (5) Anemia: Code(s): D64.9 - Anemia, unspecified Status: Acute Assessment and Plan: Hemoglobin is 8.3. Responded well to the blood transfusion and is stable for the last 24hours. No obvious evidence of GI bleeding. Subjective Date/time seen: 05/13/24 14:01 Interval history: Patient has no new complaints today. Denies any abdominal pain. Had bowel movement yesterday. A blood transfusion yesterday. His hemoglobin increased appropriately with the blood transfusion and is stable at 8.3 today. No upper GI bloody output and no bloody bowel movements. He remains on treatment doses of Lovenox for chronic lower extremity ischemia. He has been tolerating full liquids with Ensure supplements. He is agreeable starting some [place] [id number] today. No fever no tachycardia. Exam GI: Other: Abdomen is soft and nondistended. ELSA drains x2 in place with minimal output. No bilious output. Midline incision is healing well without redness or drainage. Exam is benign. Objective Data Vital Signs Vital Signs: Vital Signs - 24 hr 05/12/24 14:05 05/12/24 16:00 05/12/24 16:45 Temperature 37.1 C Pulse Rate 93 91 Respiratory Rate 18 Blood Pressure 137/56 L Pulse Oximetry 95 Oxygen Delivery Room Air 05/12/24 17:00 05/12/24 18:00 05/12/24 19:00 Temperature 37.1 C 36.7 C 36.5 C Pulse Rate 90 96 87 Respiratory Rate 18 16 18 Blood Pressure 132/49 L 132/55 L 135/54 L Pulse Oximetry 96 96 96 Oxygen Delivery 05/12/24 20:00 05/12/24 20:10 05/12/24 21:37 Temperature 36.7 C 36.7 C Pulse Rate 86 87 87 Respiratory Rate 20 16 Blood Pressure 144/62 H 148/58 H Pulse Oximetry 97 96 Oxygen Delivery 05/13/24 00:00 05/13/24 04:00 05/13/24 06:45 Temperature 36.8 C Pulse Rate 85 82 81 Respiratory Rate 16 Blood Pressure 135/60 Pulse Oximetry 95 Oxygen Delivery 05/13/24 07:45 05/13/24 08:00 05/13/24 09:30 Temperature 36.6 C Pulse Rate 83 84 Respiratory Rate 18 Blood Pressure 128/54 L Pulse Oximetry 99 Oxygen Delivery Room Air Intake/Output Intake/Output: Intake & Output 05/10/24 05/11/24 05/12/24 05/13/24 23:59 23:59 23:59 23:59 Intake Total 2350 1722 4385 800 Output Total 0332 996 3086 608 Balance 8125 994 8257 192 Meds/Results Medications: Active Medications Generic Name Dose Route Start Last Admin Trade Name Freq PRN Reason Stop Dose Admin Acetaminophen 650 mg 04/26/24 22:19 04/26/24 22:57 Acetaminophen 650 Mg Suppository RECTAL 650 mg Q6H PRN Administration Mild Pain (1-3) or Fever Acetaminophen 650 mg 05/05/24 10:27 05/08/24 12:38 Acetaminophen Elixir 325 Mg/10.15 Ml Udc PO 650 mg Q6H PRN Administration Mild Pain (1-3) or Fever Artificial Tears 1 drop 04/27/24 08:37 Artificial Tears Ophth Soln 15 Ml Bottle EACH EYE QID PRN Dry Eye(s) Atorvastatin Calcium 20 mg 04/30/24 09:00 Atorvastatin 20 Mg Tablet BY MOUTH DAILY ROSY Clonidine HCl 1 patch 05/01/24 09:00 05/08/24 08:43 Clonidine 0.1 Mg/24 Hr Patch TRANSDERM 1 patch WEEKLY ROSY Administration Dextrose 12.5 gm 04/22/24 23:06 Dextrose 50% 25 Gm/50 Ml Syringe IV PUSH PRN PRN Hypoglycemia Protocol Enoxaparin Sodium 120 mg 05/09/24 06:00 05/13/24 05:48 Enoxaparin 120 Mg/0.8 Ml Syringe SUB-Q 120 mg Q24H ROSY Administration Glucagon 1 mg 04/22/24 23:06 Glucagon For Inj 1 Mg Vial IM PRN PRN Hypoglycemia Protocol Glucose 15 gm 04/22/24 23:06 Glucose Oral Gel 15 Gm Of Glucse In 37.5 Gm Tube PO PRN PRN Hypoglycemia Protocol Hydralazine HCl 10 mg 04/25/24 08:00 05/03/24 21:47 Hydralazine Hcl 20 Mg/Ml Vial IV PUSH 10 mg Q4H PRN Administration Blood Pressure - High Dextrose 1,000 mls @ 100 mls/hr 04/22/24 23:06 Dextrose 5% 1,000 Ml IVPB PRN PRN Hypoglycemia Protocol Ipratropium [place] 0.5 mg 05/04/24 09:32 Ipratropium Br 0.02% Inh Soln 0.5 Mg/2.5 Ml Vial INHALATION Q6HRT PRN Shortness Of Breath Levalbuterol HCl 0.63 mg 05/04/24 09:32 Levalbuterol Neb 1.25 Mg/3 Ml INHALATION Q6HRT PRN Shortness Of Breath Levofloxacin 750 mg 05/12/24 09:00 05/12/24 08:20 Levofloxacin 750 Mg Tablet PO 05/14/24 09:01 750 mg Q48HR ROSY Administration Lidocaine 1 patch 04/27/24 16:35 05/13/24 09:27 Lidocaine 5% Patch TRANSDERM 1 patch DAILY ROSY Administration Lorazepam 0.5 mg 04/27/24 19:01 05/10/24 23:50 Lorazepam Inj (*Crx) 2 Mg/Ml Vial IV PUSH 0.5 mg HS PRN Administration Sleep Morphine Sulfate 4 mg 04/22/24 22:02 05/13/24 09:30 Morphine Sulfate (*Crx) 4 Mg/Ml Inj IV PUSH 4 mg Q3H PRN Administration Pain Rated 7-10 Ondansetron HCl 4 mg 05/13/24 11:22 05/13/24 11:57 Ondansetron Inj 4 Mg/2 Ml Vial IV PUSH 4 mg Q6H PRN Administration Nausea And Vomiting Pantoprazole Sodium 40 mg 04/26/24 21:00 05/13/24 09:27 Pantoprazole Sodium Iv 40 Mg Vial IV PUSH 40 mg Q12HR ROSY Administration Sodium Chloride 10 ml 04/23/24 14:00 05/13/24 13:35 Central Line Flush IV PUSH 10 ml Q8HR ROSY Administration Sodium Chloride 20 ml 04/23/24 10:16 05/08/24 06:10 Central Line Flush IV PUSH 20 ml PRN PRN Administration after blood draws Sodium Chloride 10 ml 05/04/24 14:15 Central Line Flush IV PUSH PRN PRN with TPN bag changes Sodium Chloride 20 ml 05/04/24 14:15 05/13/24 05:48 Central Line Flush IV PUSH 20 ml PRN PRN Administration after blood draws Radiology Results: ITS Impressions Chest/Abdomen/Pelvis CTA 04/22/24 18:10 IMPRESSION: Perforated viscus with a large amount of free air and fluid, with mural thickening in the distal stomach and multiple punctate foci of extraluminal air in this area for which site of perforation is suspected. Renal Ultrasound 04/24/24 11:58 IMPRESSION: Simple cyst in the left kidney upper pole. Other appearances are unremarkable. Lower Extremity CTA 05/02/24 16:36 IMPRESSION: 1. Scattered atherosclerotic plaque in the arteries of the left lower limb as detailed above without a discrete hemodynamic significant stenosis. Runoff below the ankle in the left posterior tibial artery this supplies the foot. Atretic distal peroneal and anterior tibial arteries with intraluminal contrast becoming indiscernible at the level of the ankle and with no appreciable contrast in the dorsalis pedis artery. Chest X-Ray 05/08/24 08:14 IMPRESSION: Early infiltrate suspected within the right mid to lower lung field, as detailed above. Chest/Abdomen/Pelvis CT 05/08/24 10:43 IMPRESSION: Findings suggesting air and possible fluid extending from the lumen of the antrum of the stomach, with a small anterior collection, as detailed above. Repeat evaluation with Gastrografin via the gastrostomy would provide additional information. Upper GI Series 05/09/24 09:31 IMPRESSION: 1. Ulcer of the gastric antrum with contained extraluminal contrast similar to 04/28/2024. The extraluminal contrast distribution is worse than typically seen after Clarnece patch repair. Abdomen CT 05/09/24 15:27 IMPRESSION: Redemonstration of a tract extending from the posterior superior margin of the antrum of the stomach only partially filled with oral contrast, perhaps demonstrating early healing. Labs Labs: Laboratory Results - last 24 hr 05/10/24 05/12/24 05/12/24 07:47 18:10 21:22 WBC RBC Hgb 8.6 L Hct 27.4 L MCV MCH MCHC RDW Plt Count MPV Immature Gran % (Auto) Neut % (Auto) Lymph % (Auto) Gillespie % (Auto) Eos % (Auto) Baso % (Auto) Lymph # (Auto) Gillespie # (Auto) Eos # (Auto) Baso # (Auto) Abs Immat Gran (auto) Absolute Neuts (auto) Absolute Nucleated RBC Total Counted Neutrophils % (Manual) Band Neutrophils % Lymphocytes % (Manual) Monocytes % (Manual) Eosinophils % (Manual) Basophils % (Manual) Nucleated RBC % Abs Neuts (Manual) Abs Lymphs (Manual) Abs Monocytes (Manual) Absolute Eos (Manual) Abs Basophils (Manual) Platelet Estimate Large Platelets Giant Platelets % Immature Plt Fraction Hypochromasia Anisocytosis Summers Cells Schistocytes Sodium Potassium Chloride Carbon Dioxide Anion Gap BUN Creatinine Estim Creat Clear Calc Estimated GFR Glucose POC Capillary Glucose 141 H Calcium Phosphorus Total Bilirubin AST ALT Alkaline Phosphatase Total Protein Albumin Blood Type A Positive Antibody Screen Negative Crossmatch See Detail 05/13/24 05/13/24 05/13/24 00:20 06:32 11:59 WBC 13.0 H RBC 2.81 L Hgb 8.3 L Hct 26.6 L MCV 94.7 MCH 29.5 MCHC 31.2 L RDW 15.9 H Plt Count 102 L MPV 13.8 H Immature Gran % (Auto) Not Reportable Neut % (Auto) Not Reportable Lymph % (Auto) Not Reportable Gillespie % (Auto) Not Reportable Eos % (Auto) Not Reportable Baso % (Auto) Not Reportable Lymph # (Auto) Not Reportable Gillespie # (Auto) Not Reportable Eos # (Auto) Not Reportable Baso # (Auto) Not Reportable Abs Immat Gran (auto) Not Reportable Absolute Neuts (auto) Not Reportable Absolute Nucleated RBC Not Reportable Total Counted 100 Neutrophils % (Manual) 78 H Band Neutrophils % 8 H Lymphocytes % (Manual) 5 L Monocytes % (Manual) 5 Eosinophils % (Manual) 3 Basophils % (Manual) 1 Nucleated RBC % Not Reportable Abs Neuts (Manual) 11.18 H Abs Lymphs (Manual) 0.65 L Abs Monocytes (Manual) 0.65 Absolute Eos (Manual) 0.39 Abs Basophils (Manual) 0.13 H Platelet Estimate Decreased Large Platelets Present Giant Platelets Present % Immature Plt Fraction 9.7 Hypochromasia 1+ Anisocytosis 1+ Fredy Cells 1+ Schistocytes None seen Sodium 144 Potassium 4.3 Chloride 115 H Carbon Dioxide 18 L Anion Gap 11 BUN 96 H Creatinine 4.03 H Estim Creat Clear Calc 20 Estimated GFR 15 L Glucose 106 POC Capillary Glucose 110 H 104 Calcium 8.0 L Phosphorus 5.8 H Total Bilirubin 0.9 AST 46 ALT 38 Alkaline Phosphatase 178 H Total Protein 6.0 L Albumin 2.5 L Blood Type Antibody Screen Crossmatch
--- NOTE | 2024-05-13 14:47 | PCPTNOTE ---
Attempted to see patient for PT, however patient was getting washed up by nursing and unable to be seen at this time.
[2024-05-13 18:05] LABS: Glucose Point of Care 125 mg/dl (65-105)
[2024-05-13 20:53] LABS: Glucose Point of Care 107 mg/dl (65-105)
[2024-05-13] MEDS: LORazepam INJ (*CRX) 2 MG/ML VIAL 0.5 MG IV PUSH (21:07)
[2024-05-14] VITALS (11 sets, daily range): BP systolic 123–180; BP diastolic 45–70; PULSE 80–87; RESP 18–20; TEMP 36.6–36.8; O2SAT 98–99
[2024-05-14] MEDS: CENTRAL LINE FLUSH 20 ML IV PUSH (05:12)
[2024-05-14] MEDS: CENTRAL LINE FLUSH 10 ML IV PUSH ×3 (05:12→20:39)
[2024-05-14] MEDS: ENOXAPARIN 120 MG/0.8 ML SYRINGE SUB-Q (05:12)
[2024-05-14 05:59] LABS: Alanine Aminotransferase 36 U/L (6-50); Albumin Level 2.4 g/dL (3.5-5.1); Alkaline Phosphatase 166 U/L (38-126); Anion Gap 9 mmol/L (4-12); Aspartate Amino Transferase 42 U/L (17-59); Bilirubin,Total 0.8 mg/dL (0.2-1.3); Blood Urea Nitrogen 95 mg/dL (9-20); Carbon Dioxide 19 mmol/L (22-30); Chloride 113 mmol/L (98-107); Estimated CRCL calculation 21 ml/min; Estimated Glomerular Filt Rate 16; Glucose 106 mg/dL (65-110); Potassium 4.7 mmol/L (3.4-5.0); Sodium 141 mmol/L (137-145)
[2024-05-14] MEDS: levoFLOXacin 750 MG TABLET PO (08:22)
[2024-05-14] MEDS: PANTOPRAZOLE SODIUM IV 40 MG VIAL IV PUSH ×2 (08:22→20:38)
[2024-05-14] MEDS: LIDOCAINE 5% PATCH 1 PATCH TRANSDERM (08:22)
--- NOTE | 2024-05-14 10:55 | P.PNIM_ITS ---
Progress Note: A&P Assessment and Plan (1) Perforated abdominal viscus: Code(s): R19.8 - Other specified symptoms and signs involving the digestive system and abdomen Status: Acute Assessment and Plan: * Septic shock in setting of peritonitis with perforated gastric ulcer: * Shock has resolved * Status post exploratory laparotomy with repair of antral gastric ulcer with omental Clarence patch, open gastrostomy tube * CT of the abdomen: Redemonstration of a tract extending from the posterior superior margin of the antrum of the stomach only partially filled with oral contrast, perhaps demonstrating early healing. * Surgery is following * Continue levofloxacin for now * Passed swallow study. * Noted bowel movement with bowel sounds present * Diet advanced to clear liquids, with tube feeding * Drains present with minimal output * Continue with PPI. * Pain regimen. * Monitor labs. * Upper GI series showed: FINDINGS: There is an ulcer of the antrum of the stomach. There is contrast in a 6 x 3 cm area outside the expected ellison of the stomach. 05/13 * General surgery following * Finished antibiotics today * Diet advanced to soft diet per General surgery * Continue PPI * Continue pain medications as needed 05/14 * WBC 12.8 today * plan for a repeat CT per general surgery (2) Pneumonia: Code(s): J18.9 - Pneumonia, unspecified organism Status: Acute Assessment and Plan: * Chest xray from 05/08/2024 showed early infiltrate * Continue levaquin for now * Encourage IS use * Cornet therapy * nebs PRN * No oxygen demand * Continue current therapy 05/13 * Patient finished antibiotics today * Currently on room air * Keep oxygen saturation greater than 92% 05/14 * No change (3) Malnutrition following gastrointestinal surgery: Code(s): K91.2 - Postsurgical malabsorption, not elsewhere classified Status: Acute Assessment and Plan: * Passed swallow study. * Continue tube feedings * NS @ 50ml/hr * Passed swallow study * Advance deit per surgery's recommendations * Surgery following. 05/13 * Patient advanced to soft diet today per General surgery recommendation * Continue to monitor 05/14 * Continue to encourage po intake * Bolus ensure via G tube per general surgery recommendations (4) Acute kidney injury superimposed on stage 3b chronic kidney disease: Code(s): N17.9 - Acute kidney failure, unspecified; N18.32 - Chronic kidney disease, stage 3b Status: Acute Assessment and Plan: * Avoid nephrotoxins * BUN 95, Creatinine 3.83, & GFR 15 * today BUN 96, Creatinine is 3.89 * baseline most likely around 1.5 * NS@ 50 ml/hr stopped for now * Trial with lasix 40mg x 1 on 05/11/2024 with worsening kidney function * Nephrology following * Renal ultrasound was unremarkable for any acute issues. * trend labs * Adjust therapy as indicated 05/13 * Creatinine today is 4.03, EGFR 15 * Nephrology following 05/14 * Creatinine 3.81, eGFR 16 * Nephrology following * Patient started on Lasix and albumin per Nephrology recommendation * Patient is up 30 pounds since admission * Currently has 2-3+ pitting edema to BLE (5) Anemia: Code(s): D64.9 - Anemia, unspecified Status: Acute Assessment and Plan: * H&H 6.7/21.2 from 05/10/2024 * Patient received 1 unit of PRBC's. * Post transfusion H&H was 7.4/23.3. * Current H/H 6.6/20.9 * 1 unit PRBCs ordered * Could be related to fluid overload as well * Trend CBC. * transfuse if hgb <7.0 * anemia labs obtained iron 23, TIBC 147,% saturation 16, transferrin less than 80, ferritin 842 * 500 mg of IV iron ordered and given 05/13 * Hemoglobin 8.3 * Transfuse if hemoglobin less than 7.0 * Continue to trend 05/14 * No change to treatment plan (6) HTN (hypertension): Code(s): I10 - Essential (primary) hypertension Status: Acute Assessment and Plan: * Blood pressure 148/52 * Continue Clonidine patch and Hydralazine PRN. * Trend BP * Adjust therapy as indicated 05/13 * Blood pressure ranging 127/54 to 148/58 * No change to current treatment plan (7) Generalized weakness: Code(s): R53.1 - Weakness Status: Acute Assessment and Plan: * PT/OT 05/13 * No change to current treatment plan (8) Hypokalemia: Code(s): E87.6 - Hypokalemia Status: Acute Assessment and Plan: * Potassium 4.2 * Monitor levels. * Trend labs * Replace as indicated 05/13 * Resolved (9) Hypernatremia: Code(s): E87.0 - Hyperosmolality and hypernatremia Status: Acute Assessment and Plan: * Sodium slightly elevated at 144 * Continue to trend * Stop IV fluid * resolved 05/13 * Resolved Subjective Date/time seen: 05/14/24 10:55 Interval history: Interval summary: This is a 78-year-old male with a significant past medical history of hypertension, hyperlipidemia, osteoarthritis, umbilical hernia repair, perforated appendix status post resection in 2022 who presented to the hospital with 3 days sharp radiating abdominal pain. Workup in the hospital included a CT of the abdomen and pelvis which demonstrated a perforated viscus with large amount of free air and fluid with marked wall thickening of the distal stomach and multiple punctuate foci of extraluminal air with suspected perforated ulcer. General surgery was consulted and took patient directly to the OR and performed a exploratory laparotomy with repair of antral gastric ulcer with omental Clarence patch she also had G-tube placed while in the OR on 04/22/2024. He was then a dmitted to ICU with postoperative shock requiring pressor support and remained intubated. He was then extubated on 04/25/2024. He was noted to be off pressor support on 04/24/2024. He then was placed on Zosyn and Diflucan per surgery which was stopped on 05/05/2024. He was then downgraded out of ICU status to regular floor where he has been working with PT and OT. Subjective: Patient denies any new complaints today. Labs reviewed. Review of Systems Review of Systems: All systems reviewed & are unremarkable except as noted in HPI and below Exam Narrative: General: In no acute distress, well nourished Cardiac: Normal S1 and S2. No murmur, gallops or friction rubs, peripheral pulses intact. Respiratory: Bilateral crackles in lower lobes, no adventitious lung sounds currently on room air Gastrointestinal: soft, distended, non-tender, normoactive bowel sounds. G-tube in place : voiding without difficulty. Extremities: moves all extremities well, 2+ edema Bilateral lower extremities Skin: ELSA drain x2 in place, midline incision well approximated without redness or drainage. Neuro: Alert and oriented x4 Objective Data Vital Signs Vital Signs: Vital Signs - 24 hr 05/13/24 12:00 05/13/24 13:50 05/13/24 16:00 Temperature 98.3 F Pulse Rate 84 84 88 Respiratory Rate 20 Blood Pressure 127/54 L Pulse Oximetry 98 Oxygen Delivery Fraction of Inspired Oxygen 05/13/24 20:00 05/13/24 20:00 05/13/24 22:00 Temperature 98.0 F Pulse Rate 88 81 84 Respiratory Rate 20 18 Blood Pressure 132/67 Pulse Oximetry 98 99 Oxygen Delivery Room Air Fraction of Inspired Oxygen 28 05/14/24 00:00 05/14/24 04:00 05/14/24 06:00 Temperature 97.9 F Pulse Rate 83 81 81 Respiratory Rate 18 Blood Pressure 180/66 H Pulse Oximetry 99 Oxygen Delivery Fraction of Inspired Oxygen 05/14/24 08:00 05/14/24 08:17 05/14/24 08:22 Temperature Pulse Rate 81 Respiratory Rate Blood Pressure 123/45 L Pulse Oximetry Oxygen Delivery Room Air Fraction of Inspired Oxygen 05/14/24 09:11 05/14/24 09:11 05/14/24 09:25 Temperature Pulse Rate 84 80 Respiratory Rate 20 20 Blood Pressure Pulse Oximetry 98 Oxygen Delivery Room Air Fraction of Inspired Oxygen 21 Intake/Output Intake/Output: Intake & Output 05/11/24 05/12/24 05/13/24 05/14/24 23:59 23:59 23:59 23:59 Intake Total 1722 4385 1780 480 Output Total 865 1330 1098 2300 Balance 857 3059 462 -2430 Meds/Results Medications: Active Medications Generic Name Dose Route Start Last Admin Trade Name Freq PRN Reason Stop Dose Admin Acetaminophen 650 mg 04/26/24 22:19 04/26/24 22:57 Acetaminophen 650 Mg Suppository RECTAL 650 mg Q6H PRN Administration Mild Pain (1-3) or Fever Acetaminophen 650 mg 05/05/24 10:27 05/08/24 12:38 Acetaminophen Elixir 325 Mg/10.15 Ml Udc PO 650 mg Q6H PRN Administration Mild Pain (1-3) or Fever Artificial Tears 1 drop 04/27/24 08:37 Artificial Tears Ophth Soln 15 Ml Bottle EACH EYE QID PRN Dry Eye(s) Atorvastatin Calcium 20 mg 04/30/24 09:00 Atorvastatin 20 Mg Tablet BY MOUTH DAILY ROSY Clonidine HCl 1 patch 05/01/24 09:00 05/08/24 08:43 Clonidine 0.1 Mg/24 Hr Patch TRANSDERM 1 patch WEEKLY ROSY Administration Dextrose 12.5 gm 04/22/24 23:06 Dextrose 50% 25 Gm/50 Ml Syringe IV PUSH PRN PRN Hypoglycemia Protocol Enoxaparin Sodium 120 mg 05/09/24 06:00 05/14/24 05:12 Enoxaparin 120 Mg/0.8 Ml Syringe SUB-Q 120 mg Q24H ROSY Administration Glucagon 1 mg 04/22/24 23:06 Glucagon For Inj 1 Mg Vial IM PRN PRN Hypoglycemia Protocol Glucose 15 gm 04/22/24 23:06 Glucose Oral Gel 15 Gm Of Glucse In 37.5 Gm Tube PO PRN PRN Hypoglycemia Protocol Hydralazine HCl 10 mg 04/25/24 08:00 05/03/24 21:47 Hydralazine Hcl 20 Mg/Ml Vial IV PUSH 10 mg Q4H PRN Administration Blood Pressure - High Dextrose 1,000 mls @ 100 mls/hr 04/22/24 23:06 Dextrose 5% 1,000 Ml IVPB PRN PRN Hypoglycemia Protocol Ipratropium [place] 0.5 mg 05/04/24 09:32 Ipratropium Br 0.02% Inh Soln 0.5 Mg/2.5 Ml Vial INHALATION Q6HRT PRN Shortness Of Breath Levalbuterol HCl 0.63 mg 05/04/24 09:32 Levalbuterol Neb 1.25 Mg/3 Ml INHALATION Q6HRT PRN Shortness Of Breath Lidocaine 1 patch 04/27/24 16:35 05/14/24 08:22 Lidocaine 5% Patch TRANSDERM 1 patch DAILY ROSY Administration Lorazepam 0.5 mg 04/27/24 19:01 05/13/24 21:07 Lorazepam Inj (*Crx) 2 Mg/Ml Vial IV PUSH 0.5 mg HS PRN Administration Sleep Morphine Sulfate 4 mg 04/22/24 22:02 05/13/24 16:59 Morphine Sulfate (*Crx) 4 Mg/Ml Inj IV PUSH 4 mg Q3H PRN Administration Pain Rated 7-10 Ondansetron HCl 4 mg 05/13/24 11:22 05/13/24 17:45 Ondansetron Inj 4 Mg/2 Ml Vial IV PUSH 4 mg Q6H PRN Administration Nausea And Vomiting Pantoprazole Sodium 40 mg 04/26/24 21:00 05/14/24 08:22 Pantoprazole Sodium Iv 40 Mg Vial IV PUSH 40 mg Q12HR ROSY Administration Sodium Chloride 10 ml 04/23/24 14:00 05/14/24 05:12 Central Line Flush IV PUSH 10 ml Q8HR ROSY Administration Sodium Chloride 20 ml 04/23/24 10:16 05/08/24 06:10 Central Line Flush IV PUSH 20 ml PRN PRN Administration after blood draws Sodium Chloride 10 ml 05/04/24 14:15 Central Line Flush IV PUSH PRN PRN with TPN bag changes Sodium Chloride 20 ml 05/04/24 14:15 05/14/24 05:12 Central Line Flush IV PUSH 20 ml PRN PRN Administration after blood draws Radiology Results: ITS Impressions Chest/Abdomen/Pelvis CTA 04/22/24 18:10 IMPRESSION: Perforated viscus with a large amount of free air and fluid, with mural thickening in the distal stomach and multiple punctate foci of extraluminal air in this area for which site of perforation is suspected. Renal Ultrasound 04/24/24 11:58 IMPRESSION: Simple cyst in the left kidney upper pole. Other appearances are unremarkable. Lower Extremity CTA 05/02/24 16:36 IMPRESSION: 1. Scattered atherosclerotic plaque in the arteries of the left lower limb as detailed above without a discrete hemodynamic significant stenosis. Runoff below the ankle in the left posterior tibial artery this supplies the foot. Atretic distal peroneal and anterior tibial arteries with intraluminal contrast becoming indiscernible at the level of the ankle and with no appreciable contrast in the dorsalis pedis artery. Chest X-Ray 05/08/24 08:14 IMPRESSION: Early infiltrate suspected within the right mid to lower lung field, as detailed above. Chest/Abdomen/Pelvis CT 05/08/24 10:43 IMPRESSION: Findings suggesting air and possible fluid extending from the lumen of the antrum of the stomach, with a small anterior collection, as detailed above. Repeat evaluation with Gastrografin via the gastrostomy would provide additional information. Upper GI Series 05/09/24 09:31 IMPRESSION: 1. Ulcer of the gastric antrum with contained extraluminal contrast similar to 04/28/2024. The extraluminal contrast distribution is worse than typically seen after Clarence patch repair. Abdomen CT 05/09/24 15:27 IMPRESSION: Redemonstration of a tract extending from the posterior superior margin of the antrum of the stomach only partially filled with oral contrast, perhaps demonstrating early healing. Labs Labs: Laboratory Results - last 24 hr 05/13/24 05/13/24 05/13/24 11:59 18:03 20:42 Sodium Potassium Chloride Carbon Dioxide Anion Gap BUN Creatinine Estim Creat Clear Calc Estimated GFR Glucose POC Capillary Glucose 104 125 H 107 H Calcium Phosphorus Total Bilirubin AST ALT Alkaline Phosphatase Total Protein Albumin 05/14/24 05:09 Sodium 141 Potassium 4.7 Chloride 113 H Carbon Dioxide 19 L Anion Gap 9 BUN 95 H Creatinine 3.81 H Estim Creat Clear Calc 21 Estimated GFR 16 L Glucose 106 POC Capillary Glucose Calcium 8.0 L Phosphorus 6.0 H Total Bilirubin 0.8 AST 42 ALT 36 Alkaline Phosphatase 166 H Total Protein 6.0 L Albumin 2.4 L Quality VTE Prophylaxis VTE prophylaxis: mechanical ordered and pharmacologic ordered
[2024-05-14] MEDS: FUROSEMIDE INJ 40 MG/4 ML VIAL IV PUSH ×2 (11:21→12:52)
[2024-05-14] MEDS: EPOETIN ALFA-EPBX 10,000 UNITS/ML VIAL 10000 UNITS SUB-Q (11:21)
[2024-05-14 11:39] LABS: NT Pro B Type Natriuretic Pept 551 pg/mL (19.9-100)
--- NOTE | 2024-05-14 11:57 | P.PNNP_ITS ---
Progress Note: A&P Assessment and Plan (1) Acute kidney injury: Code(s): N17.9 - Acute kidney failure, unspecified Status: Acute Assessment and Plan: * a bit worse in the last several days (but good urine output noted) * had improved to baseline (1.5mg/dl) on 04/30 * then georgette to the low 4s and now back to 3.81. * suspect initial insult to be of multifactorial etiology: * NSAID use * hypotension/hemodynmic instability/shock * sepsis/infection * third spacing * evaluation to date: * CT shows normal kidneys * renal u/s with simple cyst x 1 o/w unremarkable. * urine electrolytes are prerenal * CPK mildly elevated (but not enough to affect kidneys) * urine eosinophils negative * mild proteinuria * another acute insult noted by recent labs (since 05/02): * possible due to pre-renal factors, infection (UTI +/- pneumonia versus gastric leak) * recent imaging noted - no evidence of gastric leak * repeat urine studies (on 05/08) suggestive of UTI and prerenal azotemia * He does have signs of volume overload with 2+ edema. * Yet his urine electrolytes are definitely pre renal. * echocardiogram done a few days ago shows good LV function and no pulmonary hypertension. * It is unclear why he has fluid plus pre renal azotemia. Possibly the low albumin is to blame * White count is only 13, belly is soft and nontender, no symptoms pointing to the belly. CT scan reviewed and surgery is on the case. * titrate FWF with tube feeds to keep sodium level. So far sodium level is okay at 141 today. * Will try albumin plus Lasix chaser for a couple of doses and see how he does (2) Stage 3b chronic kidney disease: Code(s): N18.32 - Chronic kidney disease, stage 3b Status: Chronic Assessment and Plan: * creatinine ~ 1.5mg/dl in November 2023 * suspect secondary to hypertension, peripheral vascular disease, and possibly chronic NSAID use as well as age-related change (3) Perforated gastric ulcer: Onset Date: 04/2024 Qualifiers: Gastric ulcer chronicity: acute Qualified Code(s): K25.1 - Acute gastric ulcer with perforation Code(s): K25.5 - Chronic or unspecified gastric ulcer with perforation Status: Acute Assessment and Plan: * suspect secondary to NSAID use * s/p exploratory laparotomy and repair of antral gastric ulcer with omental Clarence patch and placement of open gastrostomy tube (on 04/22) * completed course of antibiotics * TPN Stopped * tolerating G-tube feedings * General Surgery following (4) PAD (peripheral artery disease): Code(s): I73.9 - Peripheral vascular disease, unspecified Status: Acute Assessment and Plan: * CTA of left lower extremity noted * suspect acute on chronic issue * on anticoagulation (5) Acute respiratory failure: Code(s): J96.00 - Acute respiratory failure, unspecified whether with hypoxia or hyperc apnia Status: Acute Assessment and Plan: * resolved * on room air * follow imaging and respiratory status * noted pleural effusion on CT of chest (6) Anemia: Code(s): D64.9 - Anemia, unspecified Status: Acute Assessment and Plan: * noted acute drop (on 05/10, 05/11, and 05/12) * due to RIC, CKD, and acute illness * anemia studies note iron deficiency * check stool guaiacs * check a retake * PRBC transfusion per protocol * he is on Epogen as of today (7) Malnutrition following gastrointestinal surgery: Code(s): K91.2 - Postsurgical malabsorption, not elsewhere classified Status: Acute Assessment and Plan: * off TPN * tube feeds ongoing * eventual goal is to transition to oral intake (8) HTN (hypertension): Code(s): I10 - Essential (primary) hypertension Status: Acute Assessment and Plan: * mostly in the 120s to 140s. * on PRN hydralazine and clonidine patch * Keep meds the same for now. Subjective Date/time seen: 05/14/24 11:57 Interval history: Ludin is feeling about the same. Some abdominal discomfort but gradually better since surgery. Eating some but he does not have much of an appetite. He is still swollen. No shortness of breath Exam Narrative: General: elderly but WD/WN male in NAD Heart: normal S1 and S2; no rub or gallop Lungs: clear anteriorly; decreased at bases Abdomen: soft, nontender; some bowel sounds; +G-tube Extremities: no cyanosis or clubbing; trace - 1+ bilateral edema Skin: no nodules or subcu nodules Objective Data Vital Signs Vital Signs: Vital Signs - 24 hr 05/13/24 12:00 05/13/24 13:50 05/13/24 16:00 Temperature 98.3 F Pulse Rate 84 84 88 Respiratory Rate 20 Blood Pressure 127/54 L Pulse Oximetry 98 Oxygen Delivery Fraction of Inspired Oxygen 05/13/24 20:00 05/13/24 20:00 05/13/24 22:00 Temperature 98.0 F Pulse Rate 88 81 84 Respiratory Rate 20 18 Blood Pressure 132/67 Pulse Oximetry 98 99 Oxygen Delivery Room Air Fraction of Inspired Oxygen 28 05/14/24 00:00 05/14/24 04:00 05/14/24 06:00 Temperature 97.9 F Pulse Rate 83 81 81 Respiratory Rate 18 Blood Pressure 180/66 H Pulse Oximetry 99 Oxygen Delivery Fraction of Inspired Oxygen 05/14/24 08:00 05/14/24 08:17 05/14/24 08:22 Temperature Pulse Rate 81 Respiratory Rate Blood Pressure 123/45 L Pulse Oximetry Oxygen Delivery Room Air Fraction of Inspired Oxygen 05/14/24 09:11 05/14/24 09:11 05/14/24 09:25 Temperature Pulse Rate 84 80 Respiratory Rate 20 20 Blood Pressure Pulse Oximetry 98 Oxygen Delivery Room Air Fraction of Inspired Oxygen 21 Intake/Output Intake/Output: Intake & Output 05/11/24 05/12/24 05/13/24 05/14/24 23:59 23:59 23:59 23:59 Intake Total 1722 4385 1780 480 Output Total 865 1330 1098 2300 Balance 857 1505 372 -3980 Meds/Results Medications: Active Medications Generic Name Dose Route Start Last Admin Trade Name Freq PRN Reason Stop Dose Admin Acetaminophen 650 mg 04/26/24 22:19 04/26/24 22:57 Acetaminophen 650 Mg Suppository RECTAL 650 mg Q6H PRN Administration Mild Pain (1-3) or Fever Acetaminophen 650 mg 05/05/24 10:27 05/08/24 12:38 Acetaminophen Elixir 325 Mg/10.15 Ml Udc PO 650 mg Q6H PRN Administration Mild Pain (1-3) or Fever Artificial Tears 1 drop 04/27/24 08:37 Artificial Tears Ophth Soln 15 Ml Bottle EACH EYE QID PRN Dry Eye(s) Atorvastatin Calcium 20 mg 04/30/24 09:00 Atorvastatin 20 Mg Tablet BY MOUTH DAILY ROSY Clonidine HCl 1 patch 05/01/24 09:00 05/08/24 08:43 Clonidine 0.1 Mg/24 Hr Patch TRANSDERM 1 patch WEEKLY ROSY Administration Dextrose 12.5 gm 04/22/24 23:06 Dextrose 50% 25 Gm/50 Ml Syringe IV PUSH PRN PRN Hypoglycemia Protocol Enoxaparin Sodium 120 mg 05/09/24 06:00 05/14/24 05:12 Enoxaparin 120 Mg/0.8 Ml Syringe SUB-Q 120 mg Q24H ROSY Administration Epoetin Olu-epbx 10,000 units 05/14/24 11:05 05/14/24 11:21 Epoetin Olu-Epbx 10,000 Units/Ml Vial SUB-Q 10,000 units TUTHSA@09 ROSY Administration Furosemide 40 mg 05/14/24 11:00 05/14/24 11:21 Furosemide Inj 40 Mg/4 Ml Vial IV PUSH 40 mg BID ROSY Administration Glucagon 1 mg 04/22/24 23:06 Glucagon For Inj 1 Mg Vial IM PRN PRN Hypoglycemia Protocol Glucose 15 gm 04/22/24 23:06 Glucose Oral Gel 15 Gm Of Glucse In 37.5 Gm Tube PO PRN PRN Hypoglycemia Protocol Hydralazine HCl 10 mg 04/25/24 08:00 05/03/24 21:47 Hydralazine Hcl 20 Mg/Ml Vial IV PUSH 10 mg Q4H PRN Administration Blood Pressure - High Dextrose 1,000 mls @ 100 mls/hr 04/22/24 23:06 Dextrose 5% 1,000 Ml IVPB PRN PRN Hypoglycemia Protocol Ipratropium [place] 0.5 mg 05/04/24 09:32 Ipratropium Br 0.02% Inh Soln 0.5 Mg/2.5 Ml Vial INHALATION Q6HRT PRN Shortness Of Breath Levalbuterol HCl 0.63 mg 05/04/24 09:32 Levalbuterol Neb 1.25 Mg/3 Ml INHALATION Q6HRT PRN Shortness Of Breath Lidocaine 1 patch 04/27/24 16:35 05/14/24 08:22 Lidocaine 5% Patch TRANSDERM 1 patch DAILY ROSY Administration Lorazepam 0.5 mg 04/27/24 19:01 05/13/24 21:07 Lorazepam Inj (*Crx) 2 Mg/Ml Vial IV PUSH 0.5 mg HS PRN Administration Sleep Morphine Sulfate 4 mg 04/22/24 22:02 05/13/24 16:59 Morphine Sulfate (*Crx) 4 Mg/Ml Inj IV PUSH 4 mg Q3H PRN Administration Pain Rated 7-10 Ondansetron HCl 4 mg 05/13/24 11:22 05/13/24 17:45 Ondansetron Inj 4 Mg/2 Ml Vial IV PUSH 4 mg Q6H PRN Administration Nausea And Vomiting Pantoprazole Sodium 40 mg 04/26/24 21:00 05/14/24 08:22 Pantoprazole Sodium Iv 40 Mg Vial IV PUSH 40 mg Q12HR ROSY Administration Sodium Chloride 10 ml 04/23/24 14:00 05/14/24 05:12 Central Line Flush IV PUSH 10 ml Q8HR ROSY Administration Sodium Chloride 20 ml 04/23/24 10:16 05/08/24 06:10 Central Line Flush IV PUSH 20 ml PRN PRN Administration after blood draws Sodium Chloride 10 ml 05/04/24 14:15 Central Line Flush IV PUSH PRN PRN with TPN bag changes Sodium Chloride 20 ml 05/04/24 14:15 05/14/24 05:12 Central Line Flush IV PUSH 20 ml PRN PRN Administration after blood draws Radiology Results: ITS Impressions Chest/Abdomen/Pelvis CTA 04/22/24 18:10 IMPRESSION: Perforated viscus with a large amount of free air and fluid, with mural thickening in the distal stomach and multiple punctate foci of extraluminal air in this area for which site of perforation is suspected. Renal Ultrasound 04/24/24 11:58 IMPRESSION: Simple cyst in the left kidney upper pole. Other appearances are unremarkable. Lower Extremity CTA 05/02/24 16:36 IMPRESSION: 1. Scattered atherosclerotic plaque in the arteries of the left lower limb as detailed above without a discrete hemodynamic significant stenosis. Runoff below the ankle in the left posterior tibial artery this supplies the foot. Atretic distal peroneal and anterior tibial arteries with intraluminal contrast becoming indiscernible at the level of the ankle and with no appreciable contrast in the dorsalis pedis artery. Chest X-Ray 05/08/24 08:14 IMPRESSION: Early infiltrate suspected within the right mid to lower lung field, as detailed above. Chest/Abdomen/Pelvis CT 05/08/24 10:43 IMPRESSION: Findings suggesting air and possible fluid extending from the lumen of the antrum of the stomach, with a small anterior collection, as detailed above. Repeat evaluation with Gastrografin via the gastrostomy would provide additional information. Upper GI Series 05/09/24 09:31 IMPRESSION: 1. Ulcer of the gastric antrum with contained extraluminal contrast similar to 04/28/2024. The extraluminal contrast distribution is worse than typically seen after Clarence patch repair. Abdomen CT 05/09/24 15:27 IMPRESSION: Redemonstration of a tract extending from the posterior superior margin of the antrum of the stomach only partially filled with oral contrast, perhaps demonstrating early healing. Labs Labs: Laboratory Results - last 24 hr 05/13/24 05/13/24 05/13/24 11:59 18:03 20:42 Sodium Potassium Chloride Carbon Dioxide Anion Gap BUN Creatinine Estim Creat Clear Calc Estimated GFR Glucose POC Capillary Glucose 104 125 H 107 H Calcium Phosphorus Total Bilirubin AST ALT Alkaline Phosphatase NT-Pro-B Natriuret Pep Total Protein Albumin 05/14/24 05/14/24 04:57 05:09 Sodium 141 Potassium 4.7 Chloride 113 H Carbon Dioxide 19 L Anion Gap 9 BUN 95 H Creatinine 3.81 H Estim Creat Clear Calc 21 Estimated GFR 16 L Glucose 106 POC Capillary Glucose Calcium 8.0 L Phosphorus 6.0 H Total Bilirubin 0.8 AST 42 ALT 36 Alkaline Phosphatase 166 H NT-Pro-B Natriuret Pep 551 H Total Protein 6.0 L Albumin 2.4 L
[2024-05-14 12:22] LABS: Hemoglobin 8.4 g/dL (14.0-18.0); Immature Platelet Fraction Pct 12.9 % (0.9-11.2); Mean Corpuscular HGB Conc 31.1 g/dl (32-36); Mean Corpuscular Volume 96.4 fl (80-100); Mean Platelet Volume 13.5 fl (7.4-10.4); Platelet Count Result 107 k/mm3 (150-375); Red Cell Distribution Width 16.2 % (11.5-14.5); White Blood Count 12.8 K/mm3 (4.5-10.0)
--- NOTE | 2024-05-14 12:29 | P.PN_ITS ---
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, not elsewhere classified Status: Acute Assessment and Plan: P.o. intake is marginal at best. Nephrology is suggesting possible supplementing with tube feeds as he still has a gastrostomy tube. May consider just bolusing Ensure supplements through the gastrostomy tube t.i.d.. Can also use the tube for free water if it is needed as per Nephrology. (2) Perforated abdominal viscus: Code(s): R19.8 - Other specified symptoms and signs involving the digestive system and abdomen Status: Acute Assessment and Plan: Status post omental patch of large antral gastric ulcer. No obvious evidence of continue gastric [place] [address]. Today result is pending. The white blood cell count is higher than we would likely repeat a CT scan without IV contrast but with oral contrast to see if there is any evidence of a leak or abscess. (3) Acute kidney injury superimposed on stage 3b chronic kidney disease: Code(s): N17.9 - Acute kidney failure, unspecified; N18.32 - Chronic kidney disease, stage 3b Status: Acute Assessment and Plan: Creatinine is a little better today. Nephrology following. Subjective Date/time seen: 05/14/24 12:29 Interval history: Patient awake and alert. Not much of an appetite but is tolerating what solid food he is eating. Continues to have bowel movements. A little nausea but was given Zofran which resolved the nausea. No real increase in his abdominal pain. Drains in place and G-tube in place without issues. Output from the ELSA drains x2 is minimal. White blood count is still pending is a bit of 13,000 yesterday. If it increases then may need to consider repeating a CT scan without IV contrast. Creatinine is down to 3.8 today from 4.0 yesterday. He is 800cc negative in terms fluid balance today. Nephrology continues to follow. Exam GI: Other: Abdomen is obese but soft. Midline incision is healing well without redness or drainage. The drains x2 without any bilious output. Output is minimal. G-tube in place. G-tube site clean and dry. G tube is plugged. Extrem: Other: 3 + bilateral pitting lower extremity ed adina. Left lower extremity is warm today. Objective Data Vital Signs Vital Signs: Vital Signs - 24 hr 05/13/24 13:50 05/13/24 16:00 05/13/24 20:00 Temperature 36.8 C Pulse Rate 84 88 88 Respiratory Rate 20 20 Blood Pressure 127/54 L Pulse Oximetry 98 98 Oxygen Delivery Room Air Fraction of Inspired Oxygen 28 05/13/24 20:00 05/13/24 22:00 05/14/24 00:00 Temperature 36.7 C Pulse Rate 81 84 83 Respiratory Rate 18 Blood Pressure 132/67 Pulse Oximetry 99 Oxygen Delivery Fraction of Inspired Oxygen 05/14/24 04:00 05/14/24 06:00 05/14/24 08:00 Temperature 36.6 C Pulse Rate 81 81 81 Respiratory Rate 18 Blood Pressure 180/66 H Pulse Oximetry 99 Oxygen Delivery Fraction of Inspired Oxygen 05/14/24 08:17 05/14/24 08:22 05/14/24 09:11 Temperature Pulse Rate Respiratory Rate Blood Pressure 123/45 L Pulse Oximetry 98 Oxygen Delivery Room Air Room Air Fraction of Inspired Oxygen 21 05/14/24 09:11 05/14/24 09:25 Temperature Pulse Rate 84 80 Respiratory Rate 20 20 Blood Pressure Pulse Oximetry Oxygen Delivery Fraction of Inspired Oxygen Intake/Output Intake/Output: Intake & Output 05/11/24 05/12/24 05/13/24 05/14/24 23:59 23:59 23:59 23:59 Intake Total 1722 4385 1780 960 Output Total 865 1330 1098 2300 Balance 857 3055 682 -1340 Meds/Results Medications: Active Medications Generic Name Dose Route Start Last Admin Trade Name Freq PRN Reason Stop Dose Admin Acetaminophen 650 mg 04/26/24 22:19 04/26/24 22:57 Acetaminophen 650 Mg Suppository RECTAL 650 mg Q6H PRN Administration Mild Pain (1-3) or Fever Acetaminophen 650 mg 05/05/24 10:27 05/08/24 12:38 Acetaminophen Elixir 325 Mg/10.15 Ml Udc PO 650 mg Q6H PRN Administration Mild Pain (1-3) or Fever Artificial Tears 1 drop 04/27/24 08:37 Artificial Tears Ophth Soln 15 Ml Bottle EACH EYE QID PRN Dry Eye(s) Atorvastatin Calcium 20 mg 04/30/24 09:00 Atorvastatin 20 Mg Tablet BY MOUTH DAILY ROSY Clonidine HCl 1 patch 05/01/24 09:00 05/08/24 08:43 Clonidine 0.1 Mg/24 Hr Patch TRANSDERM 1 patch WEEKLY ROSY Administration Dextrose 12.5 gm 04/22/24 23:06 Dextrose 50% 25 Gm/50 Ml Syringe IV PUSH PRN PRN Hypoglycemia Protocol Enoxaparin Sodium 120 mg 05/09/24 06:00 05/14/24 05:12 Enoxaparin 120 Mg/0.8 Ml Syringe SUB-Q 120 mg Q24H ROSY Administration Epoetin Olu-epbx 10,000 units 05/14/24 11:05 05/14/24 11:21 Epoetin Olu-Epbx 10,000 Units/Ml Vial SUB-Q 10,000 units TUTHSA@09 ROSY Administration Furosemide 80 mg 05/15/24 00:15 Furosemide Inj 100 Mg/10 Ml Vial IV PUSH 05/15/24 00:16 ONCE ONE Furosemide 40 mg 05/14/24 12:15 Furosemide Inj 40 Mg/4 Ml Vial IV PUSH 05/14/24 12:16 ONCE ONE Glucagon 1 mg 04/22/24 23:06 Glucagon For Inj 1 Mg Vial IM PRN PRN Hypoglycemia Protocol Glucose 15 gm 04/22/24 23:06 Glucose Oral Gel 15 Gm Of Glucse In 37.5 Gm Tube PO PRN PRN Hypoglycemia Protocol Hydralazine HCl 10 mg 04/25/24 08:00 05/03/24 21:47 Hydralazine Hcl 20 Mg/Ml Vial IV PUSH 10 mg Q4H PRN Administration Blood Pressure - High Dextrose 1,000 mls @ 100 mls/hr 04/22/24 23:06 Dextrose 5% 1,000 Ml IVPB PRN PRN Hypoglycemia Protocol Albumin Human 100 mls @ 60 mls/hr 05/14/24 12:15 Albutein IVPB 05/15/24 01:54 Q12H ROSY Ipratropium [place] 0.5 mg 05/04/24 09:32 Ipratropium Br 0.02% Inh Soln 0.5 Mg/2.5 Ml Vial INHALATION Q6HRT PRN Shortness Of Breath Levalbuterol HCl 0.63 mg 05/04/24 09:32 Levalbuterol Neb 1.25 Mg/3 Ml INHALATION Q6HRT PRN Shortness Of Breath Lidocaine 1 patch 04/27/24 16:35 05/14/24 08:22 Lidocaine 5% Patch TRANSDERM 1 patch DAILY ROSY Administration Lorazepam 0.5 mg 04/27/24 19:01 05/13/24 21:07 Lorazepam Inj (*Crx) 2 Mg/Ml Vial IV PUSH 0.5 mg HS PRN Administration Sleep Morphine Sulfate 4 mg 04/22/24 22:02 05/13/24 16:59 Morphine Sulfate (*Crx) 4 Mg/Ml Inj IV PUSH 4 mg Q3H PRN Administration Pain Rated 7-10 Ondansetron HCl 4 mg 05/13/24 11:22 05/13/24 17:45 Ondansetron Inj 4 Mg/2 Ml Vial IV PUSH 4 mg Q6H PRN Administration Nausea And Vomiting Pantoprazole Sodium 40 mg 04/26/24 21:00 05/14/24 08:22 Pantoprazole Sodium Iv 40 Mg Vial IV PUSH 40 mg Q12HR ROSY Administration Sodium Chloride 10 ml 04/23/24 14:00 05/14/24 05:12 Central Line Flush IV PUSH 10 ml Q8HR ROSY Administration Sodium Chloride 20 ml 04/23/24 10:16 05/08/24 06:10 Central Line Flush IV PUSH 20 ml PRN PRN Administration after blood draws Sodium Chloride 10 ml 05/04/24 14:15 Central Line Flush IV PUSH PRN PRN with TPN bag changes Sodium Chloride 20 ml 05/04/24 14:15 05/14/24 05:12 Central Line Flush IV PUSH 20 ml PRN PRN Administration after blood draws Radiology Results: ITS Impressions Chest/Abdomen/Pelvis CTA 04/22/24 18:10 IMPRESSION: Perforated viscus with a large amount of free air and fluid, with mural thickening in the distal stomach and multiple punctate foci of extraluminal air in this area for which site of perforation is suspected. Renal Ultrasound 04/24/24 11:58 IMPRESSION: Simple cyst in the left kidney upper pole. Other appearances are unremarkable. Lower Extremity CTA 05/02/24 16:36 IMPRESSION: 1. Scattered atherosclerotic plaque in the arteries of the left lower limb as detailed above without a discrete hemodynamic significant stenosis. Runoff below the ankle in the left posterior tibial artery this supplies the foot. Atretic distal peroneal and anterior tibial arteries with intraluminal contrast becoming indiscernible at the level of the ankle and with no appreciable contrast in the dorsalis pedis artery. Chest X-Ray 05/08/24 08:14 IMPRESSION: Early infiltrate suspected within the right mid to lower lung field, as detailed above. Chest/Abdomen/Pelvis CT 05/08/24 10:43 IMPRESSION: Findings suggesting air and possible fluid extending from the lumen of the antrum of the stomach, with a small anterior collection, as detailed above. Repeat evaluation with Gastrografin via the gastrostomy would provide additional information. Upper GI Series 05/09/24 09:31 IMPRESSION: 1. Ulcer of the gastric antrum with contained extraluminal contrast similar to 04/28/2024. The extraluminal contrast distribution is worse than typically seen after Clarence patch repair. Abdomen CT 05/09/24 15:27 IMPRESSION: Redemonstration of a tract extending from the posterior superior margin of the antrum of the stomach only partially filled with oral contrast, perhaps demonstrating early healing. Labs Labs: Laboratory Results - last 24 hr 05/13/24 05/13/24 05/14/24 18:03 20:42 04:57 Sodium Potassium Chloride Carbon Dioxide Anion Gap BUN Creatinine Estim Creat Clear Calc Estimated GFR Glucose POC Capillary Glucose 125 H 107 H Calcium Phosphorus Total Bilirubin AST ALT Alkaline Phosphatase NT-Pro-B Natriuret Pep 551 H Total Protein Albumin 05/14/24 05:09 Sodium 141 Potassium 4.7 Chloride 113 H Carbon Dioxide 19 L Anion Gap 9 BUN 95 H Creatinine 3.81 H Estim Creat Clear Calc 21 Estimated GFR 16 L Glucose 106 POC Capillary Glucose Calcium 8.0 L Phosphorus 6.0 H Total Bilirubin 0.8 AST 42 ALT 36 Alkaline Phosphatase 166 H NT-Pro-B Natriuret Pep Total Protein 6.0 L Albumin 2.4 L
[2024-05-14] MEDS: ALBUMIN HUMAN 25% 25 GM/100 ML 100 ML IVPB ×2 (12:51→23:48)
[2024-05-14] MEDS: LORazepam INJ (*CRX) 2 MG/ML VIAL 0.5 MG IV PUSH (20:38)
[2024-05-14] MEDS: FUROSEMIDE INJ 100 MG/10 ML VIAL 80 MG IV PUSH (23:48)
--- NOTE | 2024-05-15 00:01 | PC.NURSE ---
Patient has called for a cough suppressant at least three times tonight. Educated patient that even though it may be uncomfortable that we need him to cough to prevent pneumonia. Patient was agreeable.
[2024-05-15] MEDS: ENOXAPARIN 120 MG/0.8 ML SYRINGE SUB-Q (05:08)
[2024-05-15] MEDS: CENTRAL LINE FLUSH 20 ML IV PUSH (05:08)
[2024-05-15] MEDS: CENTRAL LINE FLUSH 10 ML IV PUSH ×3 (05:08→20:26)
[2024-05-15 06:00] VITALS: BP 174/72; PULSE 88; RESP 18; TEMP 37.1; O2SAT 97
[2024-05-15 06:00] LABS: Hematocrit 25.9 % (42.0-52.0); Hemoglobin 7.9 g/dL (14.0-18.0); Immature Platelet Fraction Pct 9.2 % (0.9-11.2); Mean Corpuscular HGB Conc 30.5 g/dl (32-36); Mean Corpuscular Hemoglobin 29.7 pg (26-34); Mean Corpuscular Volume 97.4 fl (80-100); Mean Platelet Volume 13.7 fl (7.4-10.4); Platelet Count Result 97 k/mm3 (150-375); Red Blood Count 2.66 M/mm3 (4.6-6.20); Red Cell Distribution Width 16.3 % (11.5-14.5); White Blood Count 11.5 K/mm3 (4.5-10.0)
[2024-05-15 06:08] LABS: Chloride 108 mmol/L (98-107)
[2024-05-15 06:32] LABS: Alanine Aminotransferase 32 U/L (6-50); Albumin Level 2.7 g/dL (3.5-5.1); Alkaline Phosphatase 144 U/L (38-126); Anion Gap 12 mmol/L (4-12); Aspartate Amino Transferase 34 U/L (17-59); Bilirubin,Total 0.9 mg/dL (0.2-1.3); Blood Urea Nitrogen 95 mg/dL (9-20); Calcium 8.1 mg/dL (8.4-10.2); Carbon Dioxide 20 mmol/L (22-30); Estimated CRCL calculation 22 ml/min; Estimated Glomerular Filt Rate 16; Glucose 111 mg/dL (65-110); Phosphorus 5.3 mg/dL (2.5-4.5); Potassium 4.4 mmol/L (3.4-5.0); Sodium 140 mmol/L (137-145)
[2024-05-15 07:07] LABS: Eosinophils Percent Manual 7 % (0-4); Lymphocytes Absolute Manual 0.57 K/mm3 (1.1-4.5); Lymphocytes Percent Manual 5 % (18-44); Monocytes Absolute Manual 0.23 K/mm3 (0.1-0.90); Monocytes Percent Manual 2 % (3-9); Total Cells Counted 100
[2024-05-15 07:09] LABS: Band Neutrophils Percent 5 % (0-6)
[2024-05-15 07:10] LABS: Neutrophils Absolute Manual 9.89 K/mm3 (1.3-6.7); Neutrophils Percent Manual 81 % (46-73)
[2024-05-15 07:11] LABS: Anisocytosis 1+; Platelet Estimate Adequate (Adequate); Schistocytes None Seen
[2024-05-15 08:39] VITALS: BP 165/63; PULSE 89; RESP 16; TEMP 36.9; O2SAT 97
[2024-05-15 08:41] VITALS: PULSE 89; RESP 16; O2SAT 97
[2024-05-15] MEDS: LIDOCAINE 5% PATCH 1 PATCH TRANSDERM (08:41)
[2024-05-15] MEDS: PANTOPRAZOLE SODIUM IV 40 MG VIAL IV PUSH ×2 (08:41→20:25)
[2024-05-15] MEDS: cloNIDine 0.1 MG/24 HR PATCH 1 PATCH TRANSDERM (08:47)
[2024-05-15] MEDS: guaiFENesin/DEXTROMETHORPHAN 10 ML UDC PO (10:23)
--- NOTE | 2024-05-15 11:04 | PCOTNOTE ---
Attempted to see pt for OT treatment this AM. Pt is lethargic and confused on this date stating its 2037 for the year. Pt's granddaughter is present and stating he is really out of it today. Pt reports that the nurse gave him a cough drop and it has knocked him off his and to not bother him. Will attempt per poc duration/frequency when appropriate.
--- NOTE | 2024-05-15 11:35 | P.PNIM_ITS ---
Progress Note: A&P Assessment and Plan (1) Perforated abdominal viscus: Code(s): R19.8 - Other specified symptoms and signs involving the digestive system and abdomen Status: Acute Assessment and Plan: * Septic shock in setting of peritonitis with perforated gastric ulcer: * Shock has resolved * Status post exploratory laparotomy with repair of antral gastric ulcer with omental Clarence patch, open gastrostomy tube * CT of the abdomen: Redemonstration of a tract extending from the posterior superior margin of the antrum of the stomach only partially filled with oral contrast, perhaps demonstrating early healing. * Surgery is following * Continue levofloxacin for now * Passed swallow study. * Noted bowel movement with bowel sounds present * Diet advanced to clear liquids, with tube feeding * Drains present with minimal output * Continue with PPI. * Pain regimen. * Monitor labs. * Upper GI series showed: FINDINGS: There is an ulcer of the antrum of the stomach. There is contrast in a 6 x 3 cm area outside the expected ellison of the stomach. 05/13 * General surgery following * Finished antibiotics today * Diet advanced to soft diet per General surgery * Continue PPI * Continue pain medications as needed 05/14 * WBC 12.8 today * plan for a repeat CT per general surgery 05/15 * WBC 11.5 * CT on hold due to kidney function (2) Pneumonia: Code(s): J18.9 - Pneumonia, unspecified organism Status: Acute Assessment and Plan: * Chest xray from 05/08/2024 showed early infiltrate * Continue levaquin for now * Encourage IS use * Cornet therapy * nebs PRN * No oxygen demand * Continue current therapy 05/13 * Patient finished antibiotics today * Currently on room air * Keep oxygen saturation greater than 92% 05/14 * No change (3) Malnutrition following gastrointestinal surgery: Code(s): K91.2 - Postsurgical malabsorption, not elsewhere classified Status: Acute Assessment and Plan: * Passed swallow study. * Continue tube feedings * NS @ 50ml/hr * Passed swallow study * Advance deit per surgery's recommendations * Surgery following. 05/13 * Patient advanced to soft diet today per General surgery recommendation * Continue to monitor 05/14 * Continue to encourage po intake * Bolus tube feeding via G tube per general surgery recommendations (4) Acute kidney injury superimposed on stage 3b chronic kidney disease: Code(s): N17.9 - Acute kidney failure, unspecified; N18.32 - Chronic kidney disease, stage 3b Status: Acute Assessment and Plan: * Avoid nephrotoxins * BUN 95, Creatinine 3.83, & GFR 15 * today BUN 96, Creatinine is 3.89 * baseline most likely around 1.5 * NS@ 50 ml/hr stopped for now * Trial with lasix 40mg x 1 on 05/11/2024 with worsening kidney function * Nephrology following * Renal ultrasound was unremarkable for any acute issues. * trend labs * Adjust therapy as indicated 05/13 * Creatinine today is 4.03, EGFR 15 * Nephrology following 05/14 * Creatinine 3.81, eGFR 16 * Nephrology following * Patient started on Lasix and albumin per Nephrology recommendation * Patient is up 30 pounds since admission * Currently has 2-3+ pitting edema to BLE 05/15 * Creatinine 3.72, eGFR 16 * Nephrology following * Continue diuresis per Nephrology recommendations * Weight today is 129 * 285# today, still up from 259# on admission (5) Anemia: Code(s): D64.9 - Anemia, unspecified Status: Acute Assessment and Plan: * H&H 6.7/21.2 from 05/10/2024 * Patient received 1 unit of PRBC's. * Post transfusion H&H was 7.4/23.3. * Current H/H 6.6/20.9 * 1 unit PRBCs ordered * Could be related to fluid overload as well * Trend CBC. * transfuse if hgb <7.0 * anemia labs obtained iron 23, TIBC 147,% saturation 16, transferrin less than 80, ferritin 842 * 500 mg of IV iron ordered and given 05/13 * Hemoglobin 8.3 * Transfuse if hemoglobin less than 7.0 * Continue to trend 05/14 * No change to treatment plan (6) HTN (hypertension): Code(s): I10 - Essential (primary) hypertension Status: Acute Assessment and Plan: * Blood pressure 148/52 * Continue Clonidine patch and Hydralazine PRN. * Trend BP * Adjust therapy as indicated 05/13 * Blood pressure ranging 127/54 to 148/58 * No change to current treatment plan (7) Generalized weakness: Code(s): R53.1 - Weakness Status: Acute Assessment and Plan: * PT/OT 05/13 * No change to current treatment plan (8) Hypokalemia: Code(s): E87.6 - Hypokalemia Status: Acute Assessment and Plan: * Potassium 4.2 * Monitor levels. * Trend labs * Replace as indicated 05/13 * Resolved (9) Hypernatremia: Code(s): E87.0 - Hyperosmolality and hypernatremia Status: Acute Assessment and Plan: * Sodium slightly elevated at 144 * Continue to trend * Stop IV fluid * resolved / * Resolved Time Spent With Patient Time with patient: 25 - 35 minutes Subjective Date/time seen: 05/15/24 11:35 Interval history: Interval summary: This is a 78-year-old male with a significant past medical history of hypertension, hyperlipidemia, osteoarthritis, umbilical hernia repair, perforated appendix status post resection in 2022 who presented to the hospital with 3 days sharp radiating abdominal pain. Workup in the hospital included a CT of the abdomen and pelvis which demonstrated a perforated viscus with large amount of free air and fluid with marked wall thickening of the distal stomach and multiple punctuate foci of extraluminal air with suspected perforated ulcer. General surgery was consulted and took patient directly to the OR and performed a exploratory laparotomy with repair of antral gastric ulcer with omental Clarence patch she also had G-tube placed while in the OR on 04/22/2024. He was then admitted to ICU with postoperative shock requiring pressor support and remained intubated. He was then extubated on 04/25/2024. He was noted to be off pressor support on 04/24/2024. He then was placed on Zosyn and Diflucan per surgery which was stopped on 05/05/2024. He was then downgraded out of ICU status to regular floor where he has been working with PT and OT. Subjective: Patient denies any new complaints today. Labs reviewed. Review of Systems Review of Systems: All systems reviewed & are unremarkable except as noted in HPI and below Exam Narrative: General: In no acute distress, well nourished Cardiac: Normal S1 and S2. Murmur noted,No gallops or friction rubs, peripheral pulses intact. Respiratory: Bilateral crackles in lower lobes, no adventitious lung sounds currently on room air Gastrointestinal: soft, distended, non-tender, normoactive bowel sounds. G-tube in place : voiding without difficulty. Extremities: moves all extremities well, 2+ edema Bilateral lower extremities Skin: ELSA drain x2 in place, midline incision well approximated without redness or drainage. Neuro: Alert and oriented x4 Objective Data Vital Signs Vital Signs: Vital Signs - 24 hr 05/14/24 12:00 05/14/24 14:00 05/14/24 20:00 Temperature 98.0 F Pulse Rate 86 87 87 Respiratory Rate 18 18 Blood Pressure 139/58 L Pulse Oximetry 98 98 Oxygen Delivery Room Air Fraction of Inspired Oxygen 21 05/14/24 22:00 05/15/24 06:00 05/15/24 08:39 Temperature 98.3 F 98.8 F 98.4 F Pulse Rate 87 88 89 Respiratory Rate 18 18 16 Blood Pressure 163/70 H 174/72 H 165/63 H Pulse Oximetry 98 97 97 Oxygen Delivery Fraction of Inspired Oxygen 05/15/24 08:41 Temperature Pulse Rate 89 Respiratory Rate 16 Blood Pressure Pulse Oximetry 97 Oxygen Delivery Room Air Fraction of Inspired Oxygen 21 Intake/Output Intake/Output: Intake & Output 05/12/24 05/13/24 05/14/24 05/15/24 23:59 23:59 23:59 23:59 Intake Total 4385 1780 1947 677 Output Total 1330 1098 5295 3800 Balance 3052 [phone] Meds/Results Medications: Active Medications Generic Name Dose Route Start Last Admin Trade Name Freq PRN Reason Stop Dose Admin Acetaminophen 650 mg 04/26/24 22:19 04/26/24 22:57 Acetaminophen 650 Mg Suppository RECTAL 650 mg Q6H PRN Administration Mild Pain (1-3) or Fever Acetaminophen 650 mg 05/05/24 10:27 05/08/24 12:38 Acetaminophen Elixir 325 Mg/10.15 Ml Udc PO 650 mg Q6H PRN Administration Mild Pain (1-3) or Fever Artificial Tears 1 drop 04/27/24 08:37 Artificial Tears Ophth Soln 15 Ml Bottle EACH EYE QID PRN Dry Eye(s) Atorvastatin Calcium 20 mg 04/30/24 09:00 Atorvastatin 20 Mg Tablet BY MOUTH DAILY ROSY Clonidine HCl 1 patch 05/01/24 09:00 05/15/24 08:47 Clonidine 0.1 Mg/24 Hr Patch TRANSDERM 1 patch WEEKLY ROSY Administration Dextrose 12.5 gm 04/22/24 23:06 Dextrose 50% 25 Gm/50 Ml Syringe IV PUSH PRN PRN Hypoglycemia Protocol Enoxaparin Sodium 120 mg 05/09/24 06:00 05/15/24 05:08 Enoxaparin 120 Mg/0.8 Ml Syringe SUB-Q 120 mg Q24H ROSY Administration Epoetin Olu-epbx 10,000 units 05/14/24 11:05 05/14/24 11:21 Epoetin Olu-Epbx 10,000 Units/Ml Vial SUB-Q 10,000 units TUTHSA@09 ROSY Administration Glucagon 1 mg 04/22/24 23:06 Glucagon For Inj 1 Mg Vial IM PRN PRN Hypoglycemia Protocol Glucose 15 gm 04/22/24 23:06 Glucose Oral Gel 15 Gm Of Glucse In 37.5 Gm Tube PO PRN PRN Hypoglycemia Protocol Guaifenesin/Dextromethorphan 10 ml 05/15/24 10:07 05/15/24 10:23 Guaifenesin/Dextromethorphan 10 Ml Udc PO 10 ml Q4H PRN Administration Cough Hydralazine HCl 10 mg 04/25/24 08:00 05/03/24 21:47 Hydralazine Hcl 20 Mg/Ml Vial IV PUSH 10 mg Q4H PRN Administration Blood Pressure - High Dextrose 1,000 mls @ 100 mls/hr 04/22/24 23:06 Dextrose 5% 1,000 Ml IVPB PRN PRN Hypoglycemia Protocol Ipratropium [place] 0.5 mg 05/04/24 09:32 Ipratropium Br 0.02% Inh Soln 0.5 Mg/2.5 Ml Vial INHALATION Q6HRT PRN Shortness Of Breath Levalbuterol HCl 0.63 mg 05/04/24 09:32 Levalbuterol Neb 1.25 Mg/3 Ml INHALATION Q6HRT PRN Shortness Of Breath Lidocaine 1 patch 04/27/24 16:35 05/15/24 08:41 Lidocaine 5% Patch TRANSDERM 1 patch DAILY ROSY Administration Lorazepam 0.5 mg 04/27/24 19:01 05/14/24 20:38 Lorazepam Inj (*Crx) 2 Mg/Ml Vial IV PUSH 0.5 mg HS PRN Administration Sleep Miscellaneous Information 1 each 05/15/24 00:01 Lorazepam Needs To Be Renewed Or It Will Automatically Discontinue. XX 06/14/24 00:00 CLARIFY ROSY Morphine Sulfate 4 mg 04/22/24 22:02 05/13/24 16:59 Morphine Sulfate (*Crx) 4 Mg/Ml Inj IV PUSH 4 mg Q3H PRN Administration Pain Rated 7-10 Ondansetron HCl 4 mg 05/13/24 11:22 05/13/24 17:45 Ondansetron Inj 4 Mg/2 Ml Vial IV PUSH 4 mg Q6H PRN Administration Nausea And Vomiting Pantoprazole Sodium 40 mg 04/26/24 21:00 05/15/24 08:41 Pantoprazole Sodium Iv 40 Mg Vial IV PUSH 40 mg Q12HR ROSY Administration Sodium Chloride 10 ml 04/23/24 14:00 05/15/24 05:08 Central Line Flush IV PUSH 10 ml Q8HR ROSY Administration Sodium Chloride 20 ml 04/23/24 10:16 05/08/24 06:10 Central Line Flush IV PUSH 20 ml PRN PRN Administration after blood draws Sodium Chloride 10 ml 05/04/24 14:15 Central Line Flush IV PUSH PRN PRN with TPN bag changes Sodium Chloride 20 ml 05/04/24 14:15 05/15/24 05:08 Central Line Flush IV PUSH 20 ml PRN PRN Administration after blood draws Radiology Results: ITS Impressions Chest/Abdomen/Pelvis CTA 04/22/24 18:10 IMPRESSION: Perforated viscus with a large amount of free air and fluid, with mural thickening in the distal stomach and multiple punctate foci of extraluminal air in this area for which site of perforation is suspected. Renal Ultrasound 04/24/24 11:58 IMPRESSION: Simple cyst in the left kidney upper pole. Other appearances are unremarkable. Lower Extremity CTA 05/02/24 16:36 IMPRESSION: 1. Scattered atherosclerotic plaque in the arteries of the left lower limb as detailed above without a discrete hemodynamic significant stenosis. Runoff below the ankle in the left posterior tibial artery this supplies the foot. Atretic distal peroneal and anterior tibial arteries with intraluminal contrast becoming indiscernible at the level of the ankle and with no appreciable contrast in the dorsalis pedis artery. Chest/Abdomen/Pelvis CT 05/08/24 10:43 IMPRESSION: Findings suggesting air and possible fluid extending from the lumen of the antrum of the stomach, with a small anterior collection, as detailed above. Repeat evaluation with Gastrografin via the gastrostomy would provide additional information. Upper GI Series 05/09/24 09:31 IMPRESSION: 1. Ulcer of the gastric antrum with contained extraluminal contrast similar to 04/28/2024. The extraluminal contrast distribution is worse than typically seen after Clarence patch repair. Abdomen CT 05/09/24 15:27 IMPRESSION: Redemonstration of a tract extending from the posterior superior margin of the antrum of the stomach only partially filled with oral contrast, perhaps demonstrating early healing. Chest X-Ray 05/14/24 14:23 IMPRESSION: Subsegmental bibasilar atelectasis/consolidation. Mild pulmonary congestion/interstitial edema. Small bilateral pleural effusions Labs Labs: Laboratory Results - last 24 hr 05/14/24 05/14/24 05/15/24 04:57 12:11 05:07 WBC 12.8 H 11.5 H RBC 2.80 L 2.66 L Hgb 8.4 L 7.9 L Hct 27.0 L 25.9 L MCV 96.4 97.4 MCH 30.0 29.7 MCHC 31.1 L 30.5 L RDW 16.2 H 16.3 H Plt Count 107 L 97 L MPV 13.5 H 13.7 H Immature Gran % (Auto) Not Reportable Neut % (Auto) Not Reportable Lymph % (Auto) Not Reportable Carver % (Auto) Not Reportable Eos % (Auto) Not Reportable Baso % (Auto) Not Reportable Lymph # (Auto) Not Reportable Carver # (Auto) Not Reportable Eos # (Auto) Not Reportable Baso # (Auto) Not Reportable Abs Immat Gran (auto) Not Reportable Absolute Neuts (auto) Not Reportable Absolute Nucleated RBC Not Reportable Total Counted 100 Neutrophils % (Manual) 81 H Band Neutrophils % 5 Lymphocytes % (Manual) 5 L Monocytes % (Manual) 2 L Eosinophils % (Manual) 7 H Nucleated RBC % Not Reportable Abs Neuts (Manual) 9.89 H Abs Lymphs (Manual) 0.57 L Abs Monocytes (Manual) 0.23 Absolute Eos (Manual) 0.80 H Platelet Estimate Adequate % Immature Plt Fraction 12.9 H 9.2 Anisocytosis 1+ Schistocytes None seen Sodium 140 Potassium 4.4 Chloride 108 H Carbon Dioxide 20 L Anion Gap 12 BUN 95 H Creatinine 3.72 H Estim Creat Clear Calc 22 Estimated GFR 16 L Glucose 111 H Calcium 8.1 L Phosphorus 5.3 H Total Bilirubin 0.9 AST 34 ALT 32 Alkaline Phosphatase 144 H NT-Pro-B Natriuret Pep 551 H Total Protein 6.0 L Albumin 2.7 L Quality VTE Prophylaxis VTE prophylaxis: mechanical ordered and pharmacologic ordered
--- NOTE | 2024-05-15 12:05 | P.PN_ITS ---
Progress Note: A&P Assessment and Plan (1) Perforated gastric ulcer: Onset Date: 04/2024 Qualifiers: Gastric ulcer chronicity: acute Qualified Code(s): K25.1 - Acute gastric ulcer with perforation Code(s): K25.5 - Chronic or unspecified gastric ulcer with perforation Status: Acute Assessment and Plan: Status post repair with omental patch. Still not much output from the drains. Will repeat a CT scan of the abdomen pelvis without IV contrast but with oral contrast a couple of days as long as remains stable. Fluid collection around the repair will need to be re-evaluated. (2) Malnutrition following gastrointestinal surgery: Code(s): K91.2 - Postsurgical malabsorption, not elsewhere classified Status: Acute Assessment and Plan: He is not taking enough p.o. intake but not having any issues with aspiration. Just does not have much of an appetite. Continue supplementing with bolus tube feeds of nephro b.i.d.. (3) Acute kidney injury superimposed on stage 3b chronic kidney disease: Code(s): N17.9 - Acute kidney failure, unspecified; N18.32 - Chronic kidney disease, stage 3b Status: Acute Assessment and Plan: Creatinine is a little better today. Had a good diuresis yesterday. Hopefully his kidneys are improving. Nephrology is following and management as per Nephrology. Subjective Date/time seen: 05/15/24 12:05 Interval history: Patient is clinically stable. No new complaints. Still very mild stable a bdominal tenderness mostly around his incision. No nausea or vomiting. Patient is having bowel movements. He is tolerating having 2 cans of nephro per his G- tube a day and still eating solid food as tolerated. Creatinine is down to 3.7 from 3.8 yesterday. He had a good diuresis with Lasix yesterday. Nephrology continues to follow. White blood cell count is down to 11,000 today. No fever. Exam GI: Other: Abdomen is soft nondistended. Midline incision is healing well without redness or drainage. G-tube is in place. No drainage around the G-tube. ELSA drains x2 still minimal output but the right side ELSA drain output is a little more milky in coloration now rather than plain serous. No blood in the ELSA drains. Extrem: Other: Left lower extremity is warm. 2-3+ pitting edema bilateral lower extremities Objective Data Vital Signs Vital Signs: Vital Signs - 24 hr 05/14/24 14:00 05/14/24 20:00 05/14/24 22:00 Temperature 36.7 C 36.8 C Pulse Rate 87 87 87 Respiratory Rate 18 18 18 Blood Pressure 139/58 L 163/70 H Pulse Oximetry 98 98 98 Oxygen Delivery Room Air Fraction of Inspired Oxygen 21 05/15/24 06:00 05/15/24 08:39 05/15/24 08:41 Temperature 37.1 C 36.9 C Pulse Rate 88 89 89 Respiratory Rate 18 16 16 Blood Pressure 174/72 H 165/63 H Pulse Oximetry 97 97 97 Oxygen Delivery Room Air Fraction of Inspired Oxygen 21 Intake/Output Intake/Output: Intake & Output 05/12/24 05/13/24 05/14/24 05/15/24 23:59 23:59 23:59 23:59 Intake Total 4385 1780 1947 677 Output Total 1330 1098 5295 3800 Balance 3059 260 [phone] Meds/Results Medications: Active Medications Generic Name Dose Route Start Last Admin Trade Name Freq PRN Reason Stop Dose Admin Acetaminophen 650 mg 04/26/24 22:19 04/26/24 22:57 Acetaminophen 650 Mg Suppository RECTAL 650 mg Q6H PRN Administration Mild Pain (1-3) or Fever Acetaminophen 650 mg 05/05/24 10:27 05/08/24 12:38 Acetaminophen Elixir 325 Mg/10.15 Ml Udc PO 650 mg Q6H PRN Administration Mild Pain (1-3) or Fever Artificial Tears 1 drop 04/27/24 08:37 Artificial Tears Ophth Soln 15 Ml Bottle EACH EYE QID PRN Dry Eye(s) Atorvastatin Calcium 20 mg 04/30/24 09:00 Atorvastatin 20 Mg Tablet BY MOUTH DAILY ROSY Clonidine HCl 1 patch 05/01/24 09:00 05/15/24 08:47 Clonidine 0.1 Mg/24 Hr Patch TRANSDERM 1 patch WEEKLY ROSY Administration Dextrose 12.5 gm 04/22/24 23:06 Dextrose 50% 25 Gm/50 Ml Syringe IV PUSH PRN PRN Hypoglycemia Protocol Enoxaparin Sodium 120 mg 05/09/24 06:00 05/15/24 05:08 Enoxaparin 120 Mg/0.8 Ml Syringe SUB-Q 120 mg Q24H ROSY Administration Epoetin Olu-epbx 10,000 units 05/14/24 11:05 05/14/24 11:21 Epoetin Olu-Epbx 10,000 Units/Ml Vial SUB-Q 10,000 units TUTHSA@09 ROSY Administration Glucagon 1 mg 04/22/24 23:06 Glucagon For Inj 1 Mg Vial IM PRN PRN Hypoglycemia Protocol Glucose 15 gm 04/22/24 23:06 Glucose Oral Gel 15 Gm Of Glucse In 37.5 Gm Tube PO PRN PRN Hypoglycemia Protocol Guaifenesin/Dextromethorphan 10 ml 05/15/24 10:07 05/15/24 10:23 Guaifenesin/Dextromethorphan 10 Ml Udc PO 10 ml Q4H PRN Administration Cough Hydralazine HCl 10 mg 04/25/24 08:00 05/03/24 21:47 Hydralazine Hcl 20 Mg/Ml Vial IV PUSH 10 mg Q4H PRN Administration Blood Pressure - High Dextrose 1,000 mls @ 100 mls/hr 04/22/24 23:06 Dextrose 5% 1,000 Ml IVPB PRN PRN Hypoglycemia Protocol Ipratropium [place] 0.5 mg 05/04/24 09:32 Ipratropium Br 0.02% Inh Soln 0.5 Mg/2.5 Ml Vial INHALATION Q6HRT PRN Shortness Of Breath Levalbuterol HCl 0.63 mg 05/04/24 09:32 Levalbuterol Neb 1.25 Mg/3 Ml INHALATION Q6HRT PRN Shortness Of Breath Lidocaine 1 patch 04/27/24 16:35 05/15/24 08:41 Lidocaine 5% Patch TRANSDERM 1 patch DAILY ROSY Administration Lorazepam 0.5 mg 04/27/24 19:01 05/14/24 20:38 Lorazepam Inj (*Crx) 2 Mg/Ml Vial IV PUSH 0.5 mg HS PRN Administration Sleep Miscellaneous Information 1 each 05/15/24 00:01 Lorazepam Needs To Be Renewed Or It Will Automatically Discontinue. XX 06/14/24 00:00 CLARIFY [facility] Morphine Sulfate 4 mg 04/22/24 22:02 05/13/24 16:59 Morphine Sulfate (*Crx) 4 Mg/Ml Inj IV PUSH 4 mg Q3H PRN Administration Pain Rated 7-10 Ondansetron HCl 4 mg 05/13/24 11:22 05/13/24 17:45 Ondansetron Inj 4 Mg/2 Ml Vial IV PUSH 4 mg Q6H PRN Administration Nausea And Vomiting Pantoprazole Sodium 40 mg 04/26/24 21:00 05/15/24 08:41 Pantoprazole Sodium Iv 40 Mg Vial IV PUSH 40 mg Q12HR ROSY Administration Sodium Chloride 10 ml 04/23/24 14:00 05/15/24 05:08 Central Line Flush IV PUSH 10 ml Q8HR ROSY Administration Sodium Chloride 20 ml 04/23/24 10:16 05/08/24 06:10 Central Line Flush IV PUSH 20 ml PRN PRN Administration after blood draws Sodium Chloride 10 ml 05/04/24 14:15 Central Line Flush IV PUSH PRN PRN with TPN bag changes Sodium Chloride 20 ml 05/04/24 14:15 05/15/24 05:08 Central Line Flush IV PUSH 20 ml PRN PRN Administration after blood draws Radiology Results: ITS Impressions Chest/Abdomen/Pelvis CTA 04/22/24 18:10 IMPRESSION: Perforated viscus with a large amount of free air and fluid, with mural thickening in the distal stomach and multiple punctate foci of extraluminal air in this area for which site of perforation is suspected. Renal Ultrasound 04/24/24 11:58 IMPRESSION: Simple cyst in the left kidney upper pole. Other appearances are unremarkable. Lower Extremity CTA 05/02/24 16:36 IMPRESSION: 1. Scattered atherosclerotic plaque in the arteries of the left lower limb as d etailed above without a discrete hemodynamic significant stenosis. Runoff below the ankle in the left posterior tibial artery this supplies the foot. Atretic distal peroneal and anterior tibial arteries with intraluminal contrast becoming indiscernible at the level of the ankle and with no appreciable contrast in the dorsalis pedis artery. Chest/Abdomen/Pelvis CT 05/08/24 10:43 IMPRESSION: Findings suggesting air and possible fluid extending from the lumen of the antrum of the stomach, with a small anterior collection, as detailed above. Repeat evaluation with Gastrografin via the gastrostomy would provide additional information. Upper GI Series 05/09/24 09:31 IMPRESSION: 1. Ulcer of the gastric antrum with contained extraluminal contrast similar to 04/28/2024. The extraluminal contrast distribution is worse than typically seen after Clarence patch repair. Abdomen CT 05/09/24 15:27 IMPRESSION: Redemonstration of a tract extending from the posterior superior margin of the antrum of the stomach only partially filled with oral contrast, perhaps demonstrating early healing. Chest X-Ray 05/14/24 14:23 IMPRESSION: Subsegmental bibasilar atelectasis/consolidation. Mild pulmonary congestion/interstitial edema. Small bilateral pleural effusions Labs Labs: Laboratory Results - last 24 hr 05/14/24 05/15/24 12:11 05:07 WBC 12.8 H 11.5 H RBC 2.80 L 2.66 L Hgb 8.4 L 7.9 L Hct 27.0 L 25.9 L MCV 96.4 97.4 MCH 30.0 29.7 MCHC 31.1 L 30.5 L RDW 16.2 H 16.3 H Plt Count 107 L 97 L MPV 13.5 H 13.7 H Immature Gran % (Auto) Not Reportable Neut % (Auto) Not Reportable Lymph % (Auto) Not Reportable [place] % (Auto) Not Reportable Eos % (Auto) Not Reportable Baso % (Auto) Not Reportable Lymph # (Auto) Not Reportable [place] # (Auto) Not Reportable Eos # (Auto) Not Reportable Baso # (Auto) Not Reportable Abs Immat Gran (auto) Not Reportable Absolute Neuts (auto) Not Reportable Absolute Nucleated RBC Not Reportable Total Counted 100 Neutrophils % (Manual) 81 H Band Neutrophils % 5 Lymphocytes % (Manual) 5 L Monocytes % (Manual) 2 L Eosinophils % (Manual) 7 H Nucleated RBC % Not Reportable Abs Neuts (Manual) 9.89 H Abs Lymphs (Manual) 0.57 L Abs Monocytes (Manual) 0.23 Absolute Eos (Manual) 0.80 H Platelet Estimate Adequate % Immature Plt Fraction 12.9 H 9.2 Anisocytosis 1+ Schistocytes None seen Sodium 140 Potassium 4.4 Chloride 108 H Carbon Dioxide 20 L Anion Gap 12 BUN 95 H Creatinine 3.72 H Estim Creat Clear Calc 22 Estimated GFR 16 L Glucose 111 H Calcium 8.1 L Phosphorus 5.3 H Total Bilirubin 0.9 AST 34 ALT 32 Alkaline Phosphatase 144 H Total Protein 6.0 L Albumin 2.7 L
--- NOTE | 2024-05-15 12:13 | P.PNNP_ITS ---
Progress Note: A&P Assessment and Plan (1) Acute kidney injury: Code(s): N17.9 - Acute kidney failure, unspecified Status: Acute Assessment and Plan: * a bit worse in the last several days (but good urine output noted) * had improved to baseline (1.5mg/dl) on 04/30 * then georgette to the low 4s and now back to 3.81. * suspect initial insult to be of multifactorial etiology: * NSAID use * hypotension/hemodynmic instability/shock * sepsis/infection * third spacing * evaluation to date: * CT shows normal kidneys * renal u/s with simple cyst x 1 o/w unremarkable. * urine electrolytes are prerenal * CPK mildly elevated (but not enough to affect kidneys) * urine eosinophils negative * mild proteinuria * another acute insult noted by recent labs (since 05/02): * possible due to pre-renal factors, infection (UTI +/- pneumonia versus gastric leak) * recent imaging noted - no evidence of gastric leak * repeat urine studies (on 05/08) suggestive of UTI and prerenal azotemia * He does have signs of volume overload with 2+ edema. * Yet his urine electrolytes are definitely pre renal. * echocardiogram done a few days ago shows good LV function and no pulmonary hypertension. * he received albumin jand lasix for 2 doses each yesterday and made a large amount of urine. today will hold off on more of same and reassess tomorrow. (2) Stage 3b chronic kidney disease: Code(s): N18.32 - Chronic kidney disease, stage 3b Status: Chronic Assessment and Plan: * creatinine ~ 1.5mg/dl in November 2023 * suspect secondary to hypertension, peripheral vascular disease, and possibly chronic NSAID use as well as age-related change (3) Perforated gastric ulcer: Onset Date: 04/2024 Qualifiers: Gastric ulcer chronicity: acute Qualified Code(s): K25.1 - Acute gastric ulcer with perforation Code(s): K25.5 - Chronic or unspecified gastric ulcer with perforation Status: Acute Assessment and Plan: * suspect secondary to NSAID use * s/p exploratory laparotomy and repair of antral gastric ulcer with omental Clarence patch and placement of open gastrostomy tube (on 04/22) * completed course of antibiotics * TPN Stopped * tolerating G-tube feedings * General Surgery following (4) PAD (peripheral artery disease): Code(s): I73.9 - Peripheral vascular disease, unspecified Status: Acute Assessment and Plan: * CTA of left lower extremity noted * suspect acute on chronic issue * on anticoagulation (5) Acute respiratory failure: Code(s): J96.00 - Acute respiratory failure, unspecified whether with hypoxia or hypercapnia Status: Acute Assessment and Plan: * resolved * on room air * follow imaging and respiratory status * noted pleural effusion on CT of chest (6) Anemia: Code(s): D64.9 - Anemia, unspecified Status: Acute Assessment and Plan: * noted acute drop (on 05/10, 05/11, and 05/12) * due to RIC, CKD, and acute illness * anemia studies note iron deficiency * check stool guaiacs * check a retic count * PRBC transfusion per protocol * he is on Epogen (7) Malnutrition following gastrointestinal surgery: Code(s): K91.2 - Postsurgical malabsorption, not elsewhere classified Status: Acute Assessment and Plan: * off TPN * tube feeds ongoing * eventual goal is to transition to oral intake (8) HTN (hypertension): Code(s): I10 - Essential (primary) hypertension Status: Acute Assessment and Plan: * mostly in the 120s to 170s. * on PRN hydralazine and clonidine patch * Keep meds the same for now. Subjective Date/time seen: 05/15/24 12:13 Interval history: and daughter in the room. pt johnson some coughing which leads to gagging and nausea. I called nursing to give him something for cough and nausea Exam Narrative: General: elderly but WD/WN male in NAD Heart: normal S1 and S2; no rub or gallop Lungs: clear anteriorly; decreased at bases Abdomen: soft, nontender; some bowel sounds; +G-tube Extremities: trace - 1+ bilateral edema Skin: no nodules or rash Objective Data Vital Signs Vital Signs: Vital Signs - 24 hr 05/14/24 14:00 05/14/24 20:00 05/14/24 22:00 Temperature 98.0 F 98.3 F Pulse Rate 87 87 87 Respiratory Rate 18 18 18 Blood Pressure 139/58 L 163/70 H Pulse Oximetry 98 98 98 Oxygen Delivery Room Air Fraction of Inspired Oxygen 21 05/15/24 06:00 05/15/24 08:39 05/15/24 08:41 Temperature 98.8 F 98.4 F Pulse Rate 88 89 89 Respiratory Rate 18 16 16 Blood Pressure 174/72 H 165/63 H Pulse Oximetry 97 97 97 Oxygen Delivery Room Air Fraction of Inspired Oxygen 21 Intake/Output Intake/Output: Intake & Output 05/12/24 05/13/24 05/14/24 05/15/24 23:59 23:59 23:59 23:59 Intake Total 4385 1780 1947 677 Output Total 1330 1098 5295 3800 Balance 3055 950 -3868 -5915 Meds/Results Medications: Active Medications Generic Name Dose Route Start Last Admin Trade Name Freq PRN Reason Stop Dose Admin Acetaminophen 650 mg 04/26/24 22:19 04/26/24 22:57 Acetaminophen 650 Mg Suppository RECTAL 650 mg Q6H PRN Administration Mild Pain (1-3) or Fever Acetaminophen 650 mg 05/05/24 10:27 05/08/24 12:38 Acetaminophen Elixir 325 Mg/10.15 Ml Udc PO 650 mg Q6H PRN Administration Mild Pain (1-3) or Fever Artificial Tears 1 drop 04/27/24 08:37 Artificial Tears Ophth Soln 15 Ml Bottle EACH EYE QID PRN Dry Eye(s) Atorvastatin Calcium 20 mg 04/30/24 09:00 Atorvastatin 20 Mg Tablet BY MOUTH DAILY [facility] Clonidine HCl 1 patch 05/01/24 09:00 05/15/24 08:47 Clonidine 0.1 Mg/24 Hr Patch TRANSDERM 1 patch WEEKLY ROSY Administration Dextrose 12.5 gm 04/22/24 23:06 Dextrose 50% 25 Gm/50 Ml Syringe IV PUSH PRN PRN Hypoglycemia Protocol Enoxaparin Sodium 120 mg 05/09/24 06:00 05/15/24 05:08 Enoxaparin 120 Mg/0.8 Ml Syringe SUB-Q 120 mg Q24H ROSY Administration Epoetin Olu-epbx 10,000 units 05/14/24 11:05 05/14/24 11:21 Epoetin Olu-Epbx 10,000 Units/Ml Vial SUB-Q 10,000 units TUTHSA@09 ROSY Administration Glucagon 1 mg 04/22/24 23:06 Glucagon For Inj 1 Mg Vial IM PRN PRN Hypoglycemia Protocol Glucose 15 gm 04/22/24 23:06 Glucose Oral Gel 15 Gm Of Glucse In 37.5 Gm Tube PO PRN PRN Hypoglycemia Protocol Guaifenesin/Dextromethorphan 10 ml 05/15/24 10:07 05/15/24 10:23 Guaifenesin/Dextromethorphan 10 Ml Udc PO 10 ml Q4H PRN Administration Cough Hydralazine HCl 10 mg 04/25/24 08:00 05/03/24 21:47 Hydralazine Hcl 20 Mg/Ml Vial IV PUSH 10 mg Q4H PRN Administration Blood Pressure - High Dextrose 1,000 mls @ 100 mls/hr 04/22/24 23:06 Dextrose 5% 1,000 Ml IVPB PRN PRN Hypoglycemia Protocol Ipratropium [place] 0.5 mg 05/04/24 09:32 Ipratropium Br 0.02% Inh Soln 0.5 Mg/2.5 Ml Vial INHALATION Q6HRT PRN Shortness Of Breath Levalbuterol HCl 0.63 mg 05/04/24 09:32 Levalbuterol Neb 1.25 Mg/3 Ml INHALATION Q6HRT PRN Shortness Of Breath Lidocaine 1 patch 04/27/24 16:35 05/15/24 08:41 Lidocaine 5% Patch TRANSDERM 1 patch DAILY ROSY Administration Lorazepam 0.5 mg 04/27/24 19:01 05/14/24 20:38 Lorazepam Inj (*Crx) 2 Mg/Ml Vial IV PUSH 0.5 mg HS PRN Administration Sleep Miscellaneous Information 1 each 05/15/24 00:01 Lorazepam Needs To Be Renewed Or It Will Automatically Discontinue. XX 06/14/24 00:00 CLARIFY ROSY Morphine Sulfate 4 mg 04/22/24 22:02 05/13/24 16:59 Morphine Sulfate (*Crx) 4 Mg/Ml Inj IV PUSH 4 mg Q3H PRN Administration Pain Rated 7-10 Ondansetron HCl 4 mg 05/13/24 11:22 05/13/24 17:45 Ondansetron Inj 4 Mg/2 Ml Vial IV PUSH 4 mg Q6H PRN Administration Nausea And Vomiting Pantoprazole Sodium 40 mg 04/26/24 21:00 05/15/24 08:41 Pantoprazole Sodium Iv 40 Mg Vial IV PUSH 40 mg Q12HR ROSY Administration Sodium Chloride 10 ml 04/23/24 14:00 05/15/24 05:08 Central Line Flush IV PUSH 10 ml Q8HR ROSY Administration Sodium Chloride 20 ml 04/23/24 10:16 05/08/24 06:10 Central Line Flush IV PUSH 20 ml PRN PRN Administration after blood draws Sodium Chloride 10 ml 05/04/24 14:15 Central Line Flush IV PUSH PRN PRN with TPN bag changes Sodium Chloride 20 ml 05/04/24 14:15 05/15/24 05:08 Central Line Flush IV PUSH 20 ml PRN PRN Administration after blood draws Radiology Results: ITS Impressions Chest/Abdomen/Pelvis CTA 04/22/24 18:10 IMPRESSION: Perforated viscus with a large amount of free air and fluid, with mural thickening in the distal stomach and multiple punctate foci of extraluminal air in this area for which site of perforation is suspected. Renal Ultrasound 04/24/24 11:58 IMPRESSION: Simple cyst in the left kidney upper pole. Other appearances are unremarkable. Lower Extremity CTA 05/02/24 16:36 IMPRESSION: 1. Scattered atherosclerotic plaque in the arteries of the left lower limb as d etailed above without a discrete hemodynamic significant stenosis. Runoff below the ankle in the left posterior tibial artery this supplies the foot. Atretic distal peroneal and anterior tibial arteries with intraluminal contrast becoming indiscernible at the level of the ankle and with no appreciable contrast in the dorsalis pedis artery. Chest/Abdomen/Pelvis CT 05/08/24 10:43 IMPRESSION: Findings suggesting air and possible fluid extending from the lumen of the antrum of the stomach, with a small anterior collection, as detailed above. Repeat evaluation with Gastrografin via the gastrostomy would provide additional information. Upper GI Series 05/09/24 09:31 IMPRESSION: 1. Ulcer of the gastric antrum with contained extraluminal contrast similar to 04/28/2024. The extraluminal contrast distribution is worse than typically seen after Clarence patch repair. Abdomen CT 05/09/24 15:27 IMPRESSION: Redemonstration of a tract extending from the posterior superior margin of the antrum of the stomach only partially filled with oral contrast, perhaps demonstrating early healing. Chest X-Ray 05/14/24 14:23 IMPRESSION: Subsegmental bibasilar atelectasis/consolidation. Mild pulmonary congestion/interstitial edema. Small bilateral pleural effusions Labs Labs: Laboratory Results - last 24 hr 05/14/24 05/15/24 12:11 05:07 WBC 12.8 H 11.5 H RBC 2.80 L 2.66 L Hgb 8.4 L 7.9 L Hct 27.0 L 25.9 L MCV 96.4 97.4 MCH 30.0 29.7 MCHC 31.1 L 30.5 L RDW 16.2 H 16.3 H Plt Count 107 L 97 L MPV 13.5 H 13.7 H Immature Gran % (Auto) Not Reportable Neut % (Auto) Not Reportable Lymph % (Auto) Not Reportable Grainger % (Auto) Not Reportable Eos % (Auto) Not Reportable Baso % (Auto) Not Reportable Lymph # (Auto) Not Reportable Grainger # (Auto) Not Reportable Eos # (Auto) Not Reportable Baso # (Auto) Not Reportable Abs Immat Gran (auto) Not Reportable Absolute Neuts (auto) Not Reportable Absolute Nucleated RBC Not Reportable Total Counted 100 Neutrophils % (Manual) 81 H Band Neutrophils % 5 Lymphocytes % (Manual) 5 L Monocytes % (Manual) 2 L Eosinophils % (Manual) 7 H Nucleated RBC % Not Reportable Abs Neuts (Manual) 9.89 H Abs Lymphs (Manual) 0.57 L Abs Monocytes (Manual) 0.23 Absolute Eos (Manual) 0.80 H Platelet Estimate Adequate % Immature Plt Fraction 12.9 H 9.2 Anisocytosis 1+ Schistocytes None seen Sodium 140 Potassium 4.4 Chloride 108 H Carbon Dioxide 20 L Anion Gap 12 BUN 95 H Creatinine 3.72 H Estim Creat Clear Calc 22 Estimated GFR 16 L Glucose 111 H Calcium 8.1 L Phosphorus 5.3 H Total Bilirubin 0.9 AST 34 ALT 32 Alkaline Phosphatase 144 H Total Protein 6.0 L Albumin 2.7 L
[2024-05-15] MEDS: ONDANSETRON INJ 4 MG/2 ML VIAL IV PUSH (12:53)
[2024-05-15 14:00] VITALS: BP 134/46; PULSE 88; RESP 14; O2SAT 95
[2024-05-15] MEDS: BENZOCAINE/MENTHOL (*BKC) 18 EA LOZENGE 1 LOZENGE PO ×2 (15:54→20:27)
[2024-05-15 19:38] VITALS: BP 117/48; PULSE 84; RESP 17; TEMP 36.7; O2SAT 95
[2024-05-15 20:00] VITALS: PULSE 84; RESP 17; O2SAT 95
[2024-05-15] MEDS: LORazepam INJ (*CRX) 2 MG/ML VIAL 0.5 MG IV PUSH (20:26)
[2024-05-16] MEDS: MORPHINE SULFATE (*CRX) 4 MG/ML INJ IV PUSH ×5 (00:35→23:42)
[2024-05-16 01:43] LABS: IFOB Positive Control Positive; Immunochemical Fecal Occult Bl Positive (N)
[2024-05-16 04:37] VITALS: BP 145/61; PULSE 87; RESP 18; TEMP 36.4; O2SAT 95
[2024-05-16] MEDS: CENTRAL LINE FLUSH 10 ML IV PUSH ×3 (05:29→20:30)
[2024-05-16] MEDS: CENTRAL LINE FLUSH 20 ML IV PUSH (05:29)
[2024-05-16 06:10] LABS: Immature Reticulocyte Fraction 22.5 % (3.0-15.9); Reticulocyte Hemoglobin Conten 31.9 pg (28.2-36.6); Reticulocyte Percent 1.44 % (0.7-4.3); Reticulocytes Absolute 0.04 10^6/uL (0.02-0.10)
[2024-05-16 06:12] LABS: Basophils Percent Auto 0.3 % (0.2-1.2); Eosinophils Absolute Auto 0.4 K/mm3 (0-0.3); Eosinophils Percent Auto 3.1 % (0-4.4); Hematocrit 26.3 % (42.0-52.0); Hemoglobin 8.1 g/dL (14.0-18.0); Immature Granulocyte Absolute 0.92 K/mm3 (0.00-0.031); Lymphocytes Absolute Auto 0.71 K/mm3 (0.9-3.2); Lymphocytes Percent Auto 5.4 % (18.3-44.2); Mean Corpuscular HGB Conc 30.8 g/dl (32-36); Mean Corpuscular Hemoglobin 30.2 pg (26-34); Mean Corpuscular Volume 98.1 fl (80-100); Mean Platelet Volume 13.7 fl (7.4-10.4); Monocytes Absolute Auto 0.7 K/mm3 (0.1-0.6); Neutrophils Absolute Auto 10.4 K/mm3 (1.3-6.7); Neutrophils Percent Auto 79.2 % (45.5-73.1); Platelet Count Result 111 k/mm3 (150-375); Red Blood Count 2.68 M/mm3 (4.6-6.20); Red Cell Distribution Width 16.2 % (11.5-14.5); White Blood Count 13.1 K/mm3 (4.5-10.0)
[2024-05-16 06:22] LABS: Alanine Aminotransferase 31 U/L (6-50); Albumin Level 2.5 g/dL (3.5-5.1); Alkaline Phosphatase 136 U/L (38-126); Anion Gap 8 mmol/L (4-12); Aspartate Amino Transferase 35 U/L (17-59); Bilirubin,Total 0.8 mg/dL (0.2-1.3); Blood Urea Nitrogen 89 mg/dL (9-20); Carbon Dioxide 22 mmol/L (22-30); Chloride 107 mmol/L (98-107); Estimated CRCL calculation 25 ml/min; Estimated Glomerular Filt Rate 19; Glucose 113 mg/dL (65-110); Magnesium 1.8 mg/dL (1.6-2.3); Potassium 4.3 mmol/L (3.4-5.0); Sodium 137 mmol/L (137-145)
[2024-05-16 06:29] LABS: Partial Thromboplastin Time 33.5 Seconds (22.3-36.8)
[2024-05-16 06:53] LABS: Anisocytosis 1+; Hypochromasia 1+; Platelet Estimate Slightly Decreased (Adequate); Schistocytes None Seen
[2024-05-16 08:39] VITALS: BMI 10.0
[2024-05-16] MEDS: PANTOPRAZOLE SODIUM IV 40 MG VIAL IV PUSH ×2 (09:18→20:30)
[2024-05-16] MEDS: LIDOCAINE 5% PATCH 1 PATCH TRANSDERM (09:20)
[2024-05-16] MEDS: guaiFENesin/DEXTROMETHORPHAN 10 ML UDC PO (09:52)
--- NOTE | 2024-05-16 10:02 | P.PNNP_ITS ---
Progress Note: A&P Assessment and Plan (1) Acute kidney injury: Code(s): N17.9 - Acute kidney failure, unspecified Status: Acute Assessment and Plan: * better by recent labs * had improved to baseline (1.5mg/dl) on 04/30 * then georgette to the low 4ish range * suspect initial insult to be of multifactorial etiology: * NSAID use * hypotension/hemodynmic instability/shock * sepsis/infection * third spacing * evaluation to date: * CT shows normal kidneys * renal u/s with simple cyst x 1 o/w unremarkable. * urine electrolytes are prerenal * CPK mildly elevated (but not enough to affect kidneys) * urine eosinophils negative * mild proteinuria * another acute insult noted by recent labs (since 05/02): * possible due to pre-renal factors, infection (UTI +/- pneumonia versus gastric leak) * recent imaging noted - no evidence of gastric leak * repeat urine studies (on 05/08) suggestive of UTI and prerenal azotemia * despite prerenal urine electrolytes, he has evidence of volume overload * suspect related to 3rd spacing and hypoalbuminemia * recent echocardiogram shows good LV function and no pulmonary hypertension * good diuresis/UOP with IV albumin and IV lasix x 3 doses * follow trend of repeat labs and UOP (2) Stage 3b chronic kidney disease: Code(s): N18.32 - Chronic kidney disease, stage 3b Status: Chronic Assessment and Plan: * creatinine ~ 1.5mg/dl in November 2023 * suspect secondary to hypertension, peripheral vascular disease, and possibly chronic NSAID use as well as age-related change (3) Perforated gastric ulcer: Onset Date: 04/2024 Qualifiers: Gastric ulcer chronicity: acute Qualified Code(s): K25.1 - Acute gastric ulcer with perforation Code(s): K25.5 - Chronic or unspecified gastric ulcer with perforation Status: Acute Assessment and Plan: * suspect secondary to NSAID use * s/p exploratory laparotomy and repair of antral gastric ulcer with omental Clarence patch and placement of open gastrostomy tube (on 04/22) * completed course of antibiotics * TPN discontinued * tolerating G-tube feedings but attempting oral feeding * General Surgery following (4) PAD (peripheral artery disease): Code(s): I73.9 - Peripheral vascular disease, unspecified Status: Acute Assessment and Plan: * CTA of left lower extremity noted * suspect acute on chronic issue * on anticoagulation (5) Anemia: Code(s): D64.9 - Anemia, unspecified Status: Acute Assessment and Plan: * noted acute drop (on 05/10, 05/11, and 05/12) * due to RIC, CKD, and acute illness * anemia studies note iron deficiency * PRBC transfusion per protocol * on Epogen 3x/week (6) Malnutrition following gastrointestinal surgery: Code(s): K91.2 - Postsurgical malabsorption, not elsewhere classified Status: Acute Assessment and Plan: * off TPN * tube feeds ongoing * attempting to transition to oral intake (but poor appetite noted) (7) HTN (hypertension): Code(s): I10 - Essential (primary) hypertension Status: Acute Assessment and Plan: * reasonable control * follow trend of hemodynamics (8) Generalized weakness: Code(s): R53.1 - Weakness Status: Acute Assessment and Plan: * multifactorial * PT/OT as tolerated Will continue to follow. L Subjective Date/time seen: 05/16/24 10:02 Interval history: Follow-up for acute kidney injury/acute renal failure on chronic kidney disease. Chart reviewed since last seen -- good diuresis noted over the weekend with IV albumin chases by IV diuretics; improvement in renal function/creatinine noted despite recent diuresis; resting in bed when I came to see him -- complainitng of weakness, fatigue and pain in his shoulders and right leg; reported had some on/off confusion yesterday; poor appetite noted per nursing; no other acute events overnight or earlier this morning. Exam 2 Narrative: General: elderly but WD/WN male in NAD Heart: normal S1 and S2; no rub Lungs: clear anteriorly; decreased at bases Abdomen: soft, nontender; some bowel sounds; +G-tube Extremities: no cyanosis or clubbing; trace - 1+ edema Skin: warm and dry Objective Data Vital Signs Vital Signs: Vital Signs Temp Pulse Resp BP Pulse Ox O2 Del Method FiO2 05/16/24 10:02 84 16 96 Room Air 05/16/24 09:18 Room Air 21 05/16/24 04:37 97.5 F L 87 18 145/61 H 95 05/15/24 20:00 84 17 95 Room Air 21 05/15/24 19:38 98.1 F 84 17 117/48 L 95 Intake/Output Intake/Output: Intake & Output 05/13/24 05/14/24 05/15/24 05/16/24 23:59 23:59 23:59 23:59 Intake Total 1780 1947 1437 1777 Output Total 1099 3419 4394 1954 Balance 682 -3348 -2968 -178 Meds/Results Medications: Active Medications Generic Name Dose Route Start Last Admin Trade Name Freq PRN Reason Stop Dose Admin Acetaminophen 650 mg 04/26/24 22:19 04/26/24 22:57 Acetaminophen 650 Mg Suppository RECTAL 650 mg Q6H PRN Administration Mild Pain (1-3) or Fever Acetaminophen 650 mg 05/05/24 10:27 05/08/24 12:38 Acetaminophen Elixir 325 Mg/10.15 Ml Udc PO 650 mg Q6H PRN Administration Mild Pain (1-3) or Fever Artificial Tears 1 drop 04/27/24 08:37 Artificial Tears Ophth Soln 15 Ml Bottle EACH EYE QID PRN Dry Eye(s) Atorvastatin Calcium 20 mg 04/30/24 09:00 Atorvastatin 20 Mg Tablet BY MOUTH DAILY ROSY Benzocaine 1 lozenge 05/15/24 15:35 05/15/24 20:27 Benzocaine/Menthol (*Bkc) 18 Ea Lozenge PO 1 lozenge PRN PRN Administration Sore Throat Clonidine HCl 1 patch 05/01/24 09:00 05/15/24 08:47 Clonidine 0.1 Mg/24 Hr Patch TRANSDERM 1 patch WEEKLY ROSY Administration Dextrose 12.5 gm 04/22/24 23:06 Dextrose 50% 25 Gm/50 Ml Syringe IV PUSH PRN PRN Hypoglycemia Protocol Enoxaparin Sodium 120 mg 05/09/24 06:00 05/15/24 05:08 Enoxaparin 120 Mg/0.8 Ml Syringe SUB-Q 120 mg Q24H ROSY Administration Epoetin Olu-epbx 10,000 units 05/14/24 11:05 05/14/24 11:21 Epoetin Olu-Epbx 10,000 Units/Ml Vial SUB-Q 10,000 units TUTHSA@09 ROSY Administration Glucagon 1 mg 04/22/24 23:06 Glucagon For Inj 1 Mg Vial IM PRN PRN Hypoglycemia Protocol Glucose 15 gm 04/22/24 23:06 Glucose Oral Gel 15 Gm Of Glucse In 37.5 Gm Tube PO PRN PRN Hypoglycemia Protocol Guaifenesin/Dextromethorphan 10 ml 05/15/24 10:07 05/16/24 09:52 Guaifenesin/Dextromethorphan 10 Ml Udc PO 10 ml Q4H PRN Administration Cough Hydralazine HCl 10 mg 04/25/24 08:00 05/03/24 21:47 Hydralazine Hcl 20 Mg/Ml Vial IV PUSH 10 mg Q4H PRN Administration Blood Pressure - High Dextrose 1,000 mls @ 100 mls/hr 04/22/24 23:06 Dextrose 5% 1,000 Ml IVPB PRN PRN Hypoglycemia Protocol Ipratropium [place] 0.5 mg 05/04/24 09:32 05/16/24 10:32 Ipratropium Br 0.02% Inh Soln 0.5 Mg/2.5 Ml Vial INHALATION 0.5 mg Q6HRT PRN Administration Shortness Of Breath Levalbuterol HCl 0.63 mg 05/04/24 09:32 05/16/24 10:31 Levalbuterol Neb 1.25 Mg/3 Ml INHALATION 0.63 mg Q6HRT PRN Administration Shortness Of Breath Lidocaine 1 patch 04/27/24 16:35 05/16/24 09:20 Lidocaine 5% Patch TRANSDERM 1 patch DAILY ROSY Administration Lorazepam 0.5 mg 05/16/24 13:48 Lorazepam (*Crx) 0.5 Mg Tablet PO Q6H PRN Anxiety Metoclopramide HCl 10 mg 05/16/24 18:00 05/16/24 17:19 Metoclopramide Hcl Inj 10 Mg/2 Ml Vial IV PUSH 10 mg Q6HR ROSY Administration Morphine Sulfate 4 mg 04/22/24 22:02 05/16/24 14:18 Morphine Sulfate (*Crx) 4 Mg/Ml Inj IV PUSH 4 mg Q3H PRN Administration Pain Rated 7-10 Ondansetron HCl 4 mg 05/13/24 11:22 05/15/24 12:53 Ondansetron Inj 4 Mg/2 Ml Vial IV PUSH 4 mg Q6H PRN Administration Nausea And Vomiting Pantoprazole Sodium 40 mg 04/26/24 21:00 05/16/24 09:18 Pantoprazole Sodium Iv 40 Mg Vial IV PUSH 40 mg Q12HR ROSY Administration Sodium Chloride 10 ml 04/23/24 14:00 05/16/24 13:58 Central Line Flush IV PUSH 10 ml Q8HR ROSY Administration Sodium Chloride 20 ml 04/23/24 10:16 05/08/24 06:10 Central Line Flush IV PUSH 20 ml PRN PRN Administration after blood draws Sodium Chloride 10 ml 05/04/24 14:15 Central Line Flush IV PUSH PRN PRN with TPN bag changes Sodium Chloride 20 ml 05/04/24 14:15 05/16/24 05:29 Central Line Flush IV PUSH 20 ml PRN PRN Administration after blood draws Radiology Results: ITS Impressions Chest/Abdomen/Pelvis CTA 04/22/24 18:10 IMPRESSION: Perforated viscus with a large amount of free air and fluid, with mural thickening in the distal stomach and multiple punctate foci of extraluminal air in this area for which site of perforation is suspected. Renal Ultrasound 04/24/24 11:58 IMPRESSION: Simple cyst in the left kidney upper pole. Other appearances are unremarkable. Lower Extremity CTA 05/02/24 16:36 IMPRESSION: 1. Scattered atherosclerotic plaque in the arteries of the left lower limb as detailed above without a discrete hemodynamic significant stenosis. Runoff below the ankle in the left posterior tibial artery this supplies the foot. Atretic distal peroneal and anterior tibial arteries with intraluminal contrast becoming indiscernible at the level of the ankle and with no appreciable contrast in the dorsalis pedis artery. Chest/Abdomen/Pelvis CT 05/08/24 10:43 IMPRESSION: Findings suggesting air and possible fluid extending from the lumen of the antrum of the stomach, with a small anterior collection, as detailed above. Repeat evaluation with Gastrografin via the gastrostomy would provide additional information. Upper GI Series 05/09/24 09:31 IMPRESSION: 1. Ulcer of the gastric antrum with contained extraluminal contrast similar to 04/28/2024. The extraluminal contrast distribution is worse than typically seen after Clarence patch repair. Abdomen CT 05/09/24 15:27 IMPRESSION: Redemonstration of a tract extending from the posterior superior margin of the antrum of the stomach only partially filled with oral contrast, perhaps demonstrating early healing. Chest X-Ray 05/14/24 14:23 IMPRESSION: Subsegmental bibasilar atelectasis/consolidation. Mild pulmonary congestion/interstitial edema. Small bilateral pleural effusions Labs Labs: Laboratory Tests 05/16/24 05:30 05/16/24 05:30 Calcium 8.0 L Magnesium 1.8 Total Bilirubin 0.8 AST 35 ALT 31 Alkaline Phosphatase 136 H Total Protein 6.0 L Albumin 2.5 L
[2024-05-16] MEDS: LEVALBUTEROL NEB 1.25 MG/3 ML 0.63 MG INHALATION (10:31)
[2024-05-16 10:32] VITALS: PULSE 84; RESP 16; O2SAT 96
[2024-05-16] MEDS: IPRATROPIUM BR 0.02% INH SOLN 0.5 MG/2.5 ML VIAL INHALATION (10:32)
[2024-05-16 10:43] VITALS: PULSE 84; RESP 16
--- NOTE | 2024-05-16 11:47 | P.PNIM_ITS ---
Progress Note: A&P Assessment and Plan (1) Perforated abdominal viscus: Code(s): R19.8 - Other specified symptoms and signs involving the digestive system and abdomen Status: Acute Assessment and Plan: * Septic shock in setting of peritonitis with perforated gastric ulcer: * Shock has resolved * Status post exploratory laparotomy with repair of antral gastric ulcer with omental Clarence patch, open gastrostomy tube * CT of the abdomen: Redemonstration of a tract extending from the posterior superior margin of the antrum of the stomach only partially filled with oral contrast, perhaps demonstrating early healing. * Surgery is following * Continue levofloxacin for now * Passed swallow study. * Noted bowel movement with bowel sounds present * Diet advanced to clear liquids, with tube feeding * Drains present with minimal output * Continue with PPI. * Pain regimen. * Monitor labs. * Upper GI series showed: FINDINGS: There is an ulcer of the antrum of the stomach. There is contrast in a 6 x 3 cm area outside the expected ellison of the stomach. 05/13 * General surgery following * Finished antibiotics today * Diet advanced to soft diet per General surgery * Continue PPI * Continue pain medications as needed 05/14 * WBC 12.8 today * plan for a repeat CT per general surgery 05/15 * WBC 11.5 * CT on hold due to kidney function 05/16 * WBC 13.0 * CT of the abdomen and pelvis tomorrow * Will hold off on re-culture and antibiotics for now. If patient spikes fever, we will reconsider (2) Pneumonia: Code(s): J18.9 - Pneumonia, unspecified organism Status: Acute Assessment and Plan: * Chest xray from 05/08/2024 showed early infiltrate * Continue levaquin for now * Encourage IS use * Cornet therapy * nebs PRN * No oxygen demand * Continue current therapy 05/13 * Patient finished antibiotics today * Currently on room air * Keep oxygen saturation greater than 92% 05/14 * No change (3) Malnutrition following gastrointestinal surgery: Code(s): K91.2 - Postsurgical malabsorption, not elsewhere classified Status: Acute Assessment and Plan: * Passed swallow study. * Continue tube feedings * NS @ 50ml/hr * Passed swallow study * Advance deit per surgery's recommendations * Surgery following. 05/13 * Patient advanced to soft diet today per General surgery recommendation * Continue to monitor 4/5 * Continue to encourage po intake * Bolus tube feeding via G tube per general surgery recommendations 05/16 * Continue to encourage po intake * Bolus tube feeding via G tube * Will add reglan today (4) Acute kidney injury superimposed on stage 3b chronic kidney disease: Code(s): N17.9 - Acute kidney failure, unspecified; N18.32 - Chronic kidney disease, stage 3b Status: Acute Assessment and Plan: * Avoid nephrotoxins * BUN 95, Creatinine 3.83, & GFR 15 * today BUN 96, Creatinine is 3.89 * baseline most likely around 1.5 * NS@ 50 ml/hr stopped for now * Trial with lasix 40mg x 1 on 05/11/2024 with worsening kidney function * Nephrology following * Renal ultrasound was unremarkable for any acute issues. * trend labs * Adjust therapy as indicated 05/13 * Creatinine today is 4.03, EGFR 15 * Nephrology following 05/14 * Creatinine 3.81, eGFR 16 * Nephrology following * Patient started on Lasix and albumin per Nephrology recommendation * Patient is up 30 pounds since admission * Currently has 2-3+ pitting edema to BLE 05/15 * Creatinine 3.72, eGFR 16 * Nephrology following * Continue diuresis per Nephrology recommendations * Weight today is 129 * 285# today, still up from 259# on admission 05/16 * Creatinine 3.20 today, eGFR 19 * Continue diuresis per Nephrology recommendations --Albumin/Lasix * Nephrology following (5) Anemia: Code(s): D64.9 - Anemia, unspecified Status: Acute Assessment and Plan: * H&H 6.7/21.2 from 05/10/2024 * Patient received 1 unit of PRBC's. * Post transfusion H&H was 7.4/23.3. * Current H/H 6.6/20.9 * 1 unit PRBCs ordered * Could be related to fluid overload as well * Trend CBC. * transfuse if hgb <7.0 * anemia labs obtained iron 23, TIBC 147,% saturation 16, transferrin less than 80, ferritin 842 * 500 mg of IV iron ordered and given 05/13 * Hemoglobin 8.3 * Transfuse if hemoglobin less than 7.0 * Continue to trend 05/14 * No change to treatment plan (6) HTN (hypertension): Code(s): I10 - Essential (primary) hypertension Status: Acute Assessment and Plan: * Blood pressure 148/52 * Continue Clonidine patch and Hydralazine PRN. * Trend BP * Adjust therapy as indicated 05/13 * Blood pressure ranging 127/54 to 148/58 * No change to current treatment plan (7) Generalized weakness: Code(s): R53.1 - Weakness Status: Acute Assessment and Plan: * PT/OT 05/13 * No change to current treatment plan (8) Hypokalemia: Code(s): E87.6 - Hypokalemia Status: Acute Assessment and Plan: * Potassium 4.2 * Monitor levels. * Trend labs * Replace as indicated 05/13 * Resolved (9) Hypernatremia: Code(s): E87.0 - Hyperosmolality and hypernatremia Status: Acute Assessment and Plan: * Sodium slightly elevated at 144 * Continue to trend * Stop IV fluid * resolved 05/13 * Resolved Time Spent With Patient Time with patient: 25 - 35 minutes Subjective Date/time seen: 05/16/24 11:47 Interval history: Interval summary: This is a 78-year-old male with a significant past medical history of hypertension, hyperlipidemia, osteoarthritis, umbilical hernia repair, perforated appendix status post resection in 2022 who presented to the hospital with 3 days sharp radiating abdominal pain. Workup in the hospital included a CT of the abdomen and pelvis which demonstrated a perforated viscus with large amount of free air and fluid with marked wall thickening of the distal stomach and multiple punctuate foci of extraluminal air with suspected perforated ulcer. General surgery was consulted and took patient directly to the OR and performed a exploratory laparotomy with repair of antral gastric ulcer with omental Clarence patch she also had G-tube placed while in the OR on 04/22/2024. He was then admitted to ICU with postoperative shock requiring pressor support and remained intubated. He was then extubated on 04/25/2024. He was noted to be off pressor support on 04/24/2024. He then was placed on Zosyn and Diflucan per surgery which was stopped on 05/05/2024. He was then downgraded out of ICU status to regular floor where he has been working with PT and OT. Subjective: Patient denies any new complaints today. Labs reviewed and WBC is still increasing, he remains afebrile. Spoke with General surgery and they plan to take him for CT scan tomorrow. No need for further antibiotics at this time unless he spikes a fever. Review of Systems Review of Systems: All systems reviewed & are unremarkable except as noted in HPI and below Exam Narrative: General: In no acute distress, well nourished Cardiac: Normal S1 and S2. Murmur noted,No gallops or friction rubs, peripheral pulses intact. Respiratory: Bilateral crackles in lower lobes, no adventitious lung sounds currently on room air Gastrointestinal: soft, distended, non-tender, normoactive bowel sounds. G-tube in place : voiding without difficulty. Extremities: moves all extremities well, 2+ edema Bilateral lower extremities Skin: ELSA drain x2 in place, midline incision well approximated without redness or drainage. Neuro: Alert and oriented x4 Objective Data Vital Signs Vital Signs: Vital Signs - 24 hr 05/15/24 14:00 05/15/24 19:38 05/15/24 20:00 Temperature 98.1 F Pulse Rate 88 84 84 Respiratory Rate 14 17 17 Blood Pressure 134/46 L 117/48 L Pulse Oximetry 95 95 95 Oxygen Delivery Room Air Fraction of Inspired Oxygen 21 05/16/24 04:37 05/16/24 09:18 05/16/24 10:32 Temperature 97.5 F L Pulse Rate 87 Respiratory Rate 18 Blood Pressure 145/61 H Pulse Oximetry 95 96 Oxygen Delivery Room Air Room Air Fraction of Inspired Oxygen 21 05/16/24 10:32 05/16/24 10:43 Temperature Pulse Rate 84 84 Respiratory Rate 16 16 Blood Pressure Pulse Oximetry Oxygen Delivery Fraction of Inspired Oxygen Intake/Output Intake/Output: Intake & Output 05/13/24 05/14/24 05/15/24 05/16/24 23:59 23:59 23:59 23:59 Intake Total 1780 1947 1437 437 Output Total 5430 9416 4405 1000 Balance 261 -7168 -2968 -563 Meds/Results Medications: Active Medications Generic Name Dose Route Start Last Admin Trade Name Freq PRN Reason Stop Dose Admin Acetaminophen 650 mg 04/26/24 22:19 04/26/24 22:57 Acetaminophen 650 Mg Suppository RECTAL 650 mg Q6H PRN Administration Mild Pain (1-3) or Fever Acetaminophen 650 mg 05/05/24 10:27 05/08/24 12:38 Acetaminophen Elixir 325 Mg/10.15 Ml Udc PO 650 mg Q6H PRN Administration Mild Pain (1-3) or Fever Artificial Tears 1 drop 04/27/24 08:37 Artificial Tears Ophth Soln 15 Ml Bottle EACH EYE QID PRN Dry Eye(s) Atorvastatin Calcium 20 mg 04/30/24 09:00 Atorvastatin 20 Mg Tablet BY MOUTH DAILY ROSY Benzocaine 1 lozenge 05/15/24 15:35 05/15/24 20:27 Benzocaine/Menthol (*Bkc) 18 Ea Lozenge PO 1 lozenge PRN PRN Administration Sore Throat Clonidine HCl 1 patch 05/01/24 09:00 05/15/24 08:47 Clonidine 0.1 Mg/24 Hr Patch TRANSDERM 1 patch WEEKLY ROSY Administration Dextrose 12.5 gm 04/22/24 23:06 Dextrose 50% 25 Gm/50 Ml Syringe IV PUSH PRN PRN Hypoglycemia Protocol Enoxaparin Sodium 120 mg 05/09/24 06:00 05/15/24 05:08 Enoxaparin 120 Mg/0.8 Ml Syringe SUB-Q 120 mg Q24H ROSY Administration Epoetin Olu-epbx 10,000 units 05/14/24 11:05 05/14/24 11:21 Epoetin Olu-Epbx 10,000 Units/Ml Vial SUB-Q 10,000 units TUTHSA@09 ROSY Administration Glucagon 1 mg 04/22/24 23:06 Glucagon For Inj 1 Mg Vial IM PRN PRN Hypoglycemia Protocol Glucose 15 gm 04/22/24 23:06 Glucose Oral Gel 15 Gm Of Glucse In 37.5 Gm Tube PO PRN PRN Hypoglycemia Protocol Guaifenesin/Dextromethorphan 10 ml 05/15/24 10:07 05/16/24 09:52 Guaifenesin/Dextromethorphan 10 Ml Udc PO 10 ml Q4H PRN Administration Cough Hydralazine HCl 10 mg 04/25/24 08:00 05/03/24 21:47 Hydralazine Hcl 20 Mg/Ml Vial IV PUSH 10 mg Q4H PRN Administration Blood Pressure - High Dextrose 1,000 mls @ 100 mls/hr 04/22/24 23:06 Dextrose 5% 1,000 Ml IVPB PRN PRN Hypoglycemia Protocol Ipratropium [place] 0.5 mg 05/04/24 09:32 05/16/24 10:32 Ipratropium Br 0.02% Inh Soln 0.5 Mg/2.5 Ml Vial INHALATION 0.5 mg Q6HRT PRN Administration Shortness Of Breath Levalbuterol HCl 0.63 mg 05/04/24 09:32 05/16/24 10:31 Levalbuterol Neb 1.25 Mg/3 Ml INHALATION 0.63 mg Q6HRT PRN Administration Shortness Of Breath Lidocaine 1 patch 04/27/24 16:35 05/16/24 09:20 Lidocaine 5% Patch TRANSDERM 1 patch DAILY ROSY Administration Miscellaneous Information 1 each 05/15/24 00:01 Lorazepam Needs To Be Renewed Or It Will Automatically Discontinue. XX 06/14/24 00:00 CLARIFY ROSY Morphine Sulfate 4 mg 04/22/24 22:02 05/16/24 05:32 Morphine Sulfate (*Crx) 4 Mg/Ml Inj IV PUSH 4 mg Q3H PRN Administration Pain Rated 7-10 Ondansetron HCl 4 mg 05/13/24 11:22 05/15/24 12:53 Ondansetron Inj 4 Mg/2 Ml Vial IV PUSH 4 mg Q6H PRN Administration Nausea And Vomiting Pantoprazole Sodium 40 mg 04/26/24 21:00 05/16/24 09:18 Pantoprazole Sodium Iv 40 Mg Vial IV PUSH 40 mg Q12HR ROSY Administration Sodium Chloride 10 ml 04/23/24 14:00 05/16/24 05:29 Central Line Flush IV PUSH 10 ml Q8HR ROSY Administration Sodium Chloride 20 ml 04/23/24 10:16 05/08/24 06:10 Central Line Flush IV PUSH 20 ml PRN PRN Administration after blood draws Sodium Chloride 10 ml 05/04/24 14:15 Central Line Flush IV PUSH PRN PRN with TPN bag changes Sodium Chloride 20 ml 05/04/24 14:15 05/16/24 05:29 Central Line Flush IV PUSH 20 ml PRN PRN Administration after blood draws Radiology Results: ITS Impressions Chest/Abdomen/Pelvis CTA 04/22/24 18:10 IMPRESSION: Perforated viscus with a large amount of free air and fluid, with mural thickening in the distal stomach and multiple punctate foci of extraluminal air in this area for which site of perforation is suspected. Renal Ultrasound 04/24/24 11:58 IMPRESSION: Simple cyst in the left kidney upper pole. Other appearances are unremarkable. Lower Extremity CTA 05/02/24 16:36 IMPRESSION: 1. Scattered atherosclerotic plaque in the arteries of the left lower limb as detailed above without a discrete hemodynamic significant stenosis. Runoff below the ankle in the left posterior tibial artery this supplies the foot. Atretic distal peroneal and anterior tibial arteries with intraluminal contrast becoming indiscernible at the level of the ankle and with no appreciable contrast in the dorsalis pedis artery. Chest/Abdomen/Pelvis CT 05/08/24 10:43 IMPRESSION: Findings suggesting air and possible fluid extending from the lumen of the antrum of the stomach, with a small anterior collection, as detailed above. Repeat evaluation with Gastrografin via the gastrostomy would provide additional information. Upper GI Series 05/09/24 09:31 IMPRESSION: 1. Ulcer of the gastric antrum with contained extraluminal contrast similar to 04/28/2024. The extraluminal contrast distribution is worse than typically seen after Clarence patch repair. Abdomen CT 05/09/24 15:27 IMPRESSION: Redemonstration of a tract extending from the posterior superior margin of the antrum of the stomach only partially filled with oral contrast, perhaps demonstrating early healing. Chest X-Ray 05/14/24 14:23 IMPRESSION: Subsegmental bibasilar atelectasis/consolidation. Mild pulmonary congestion/interstitial edema. Small bilateral pleural effusions Labs Labs: Laboratory Results - last 24 hr 04/22/24 05/16/24 05/16/24 17:42 00:33 05:30 WBC 13.1 H RBC 2.68 L Hgb 8.1 L Hct 26.3 L MCV 98.1 MCH 30.2 MCHC 30.8 L RDW 16.2 H Plt Count 111 L MPV 13.7 H Immature Gran % (Auto) 7.0 H Neut % (Auto) 79.2 H Lymph % (Auto) 5.4 L [place] % (Auto) 5.0 Eos % (Auto) 3.1 Baso % (Auto) 0.3 Lymph # (Auto) 0.71 L [place] # (Auto) 0.7 H Eos # (Auto) 0.4 H Baso # (Auto) 0.0 Abs Immat Gran (auto) 0.92 H Absolute Neuts (auto) 10.4 H Absolute Nucleated RBC 0.000 Band Neutrophils % Not Reportable Nucleated RBC % 0.0 Platelet Estimate Slightly decreased % Immature Plt Fraction 9.0 Hypochromasia 1+ Anisocytosis 1+ Schistocytes None seen Absolute Retic 0.04 Percent Retic 1.44 Immature Retic Fraction 22.5 H Retic Hgb Content 31.9 APTT 33.5 Sodium 137 Potassium 4.3 Chloride 107 Carbon Dioxide 22 Anion Gap 8 BUN 89 H Creatinine 3.20 H Estim Creat Clear Calc 25 Estimated GFR 19 L Glucose 113 H Calcium 8.0 L Magnesium 1.8 Total Bilirubin 0.8 AST 35 ALT 31 Alkaline Phosphatase 136 H Total Protein 6.0 L Albumin 2.5 L Stl Occult Blood (IFOB) Positive H Crossmatch See Detail Quality VTE Prophylaxis VTE prophylaxis: mechanical ordered and pharmacologic ordered
--- NOTE | 2024-05-16 13:05 | PCNFU ---
Nutrition Follow-Up Complete: Inadequate oral intake related to altered GI function as evidenced by need for full TPN Meet estimated nutrition needs - Not being met Goal: Pt current nutrition is Nepro bolus 220 ml q12 hours. Flush 30 ml q 4 h. Low fiber diet. Ensure Enlive TID (350 kcal, 20 g protein), nutritional ice cream BID (270 kcal, 9 g protein). Nutrition recommendation: Continue with current nutrition care plan per MD Last recorded weight is 131.1 kg. Bowel Motility: +1 BM 05/16/24 Labs Reviewed: Hgb 8.1, Hct 26.3, Alb 2.5, BUN 89, Cre 3.2, Glu 113, PO4 5.3 Meds Noted: Protonix Skin: No skin issues Additional Notes: PO intakes are poor. Refused breakfast, 0% lunch. Pt was confused when I talked to him. RN said fluid in drain appeared milky. Nepro bolus 220 ml BID provides 792 kcal, 36 g protein, 320 ml free water. Meeting about 33% EER with tube feeding. Continue to monitor for need to advance tube feeding or other recommendations. Pt may need TPN again. Monitoring TPN tolerance, GI function, plan of care, weights, labs, orders Follow up Thursday/Thursday
[2024-05-16 14:00] VITALS: BP 164/67; PULSE 84; RESP 18; TEMP 36.4; O2SAT 98
--- NOTE | 2024-05-16 14:12 | PM.PNGS ---
Progress Note: A&P Assessment and Plan (1) Perforated gastric ulcer: Onset Date: 04/2024 Qualifiers: Gastric ulcer chronicity: acute Qualified Code(s): K25.1 - Acute gastric ulcer with perforation Code(s): K25.5 - Chronic or unspecified gastric ulcer with perforation Status: Acute Assessment and Plan: Status post repair with omental patch. WBC count still slightly elevated today. He is not complaining of any abdominal pain and his abdominal exam is completely benign. Will repeat a CT scan of the abdomen pelvis without IV contrast but with oral contrast tomorrow morning to re-evaluate the fluid collection around the repair. Continue to monitor the ELSA drains. PT/OT following. (2) Malnutrition following gastrointestinal surgery: Code(s): K91.2 - Postsurgical malabsorption, not elsewhere classified Status: Acute Assessment and Plan: Still having poor appetite and poor p.o. intake with some nausea this morning, but no vomiting. Continue supplementing with bolus tube feeds of nephro b.i.d.. (3) Acute kidney injury superimposed on stage 3b chronic kidney disease: Code(s): N17.9 - Acute kidney failure, unspecified; N18.32 - Chronic kidney disease, stage 3b Status: Acute Assessment and Plan: Creatinine slowly improving over the past 3 days. Nephrology is following and management as per Nephrology. Plan I have discussed the patient's case and plan of care with Dr. Moreno. Subjective Subjective Date/Time Seen: 05/16/24 10:12 Post Op day: 24 (Exploratory laparotomy with repair of antral gastric ulcer with omental Clarence patch, Placement of open gastrostomy tube) Patient reports: tolerating liquids well, flatus, bowel movement and afebrile Interval history: Patient is feeling tired and weak today. Staff attempted to get him up to chair this morning, but he was complaining of pain in his shoulder and right leg when they tried to move him. He is lying in bed now. He falls asleep easily, but arouses easily. He is oriented x 3. Nursing reports he was in and out of confusion yesterday, but is more alert this morning. He still has poor appetite and has only been eating bites of food off his tray. He is also getting bolus tube feeding, as well as supplements. He denies any abdominal pain or any pain at all at this time. He does report having some nausea this morning, but no vomiting. Urine output is good. Minimal output from ELSA drains. He is afebrile, but white blood cell count still slightly elevated at 13,000. Review of Systems Review of Systems: All systems reviewed & are unremarkable except as noted in HPI and below Exam Const: General: comfortable and no acute distress Orientation/consciousness: patient oriented x3 GI: Inspection: non-distended GI Palp: Yes Soft to palpation, No Tenderness to palpation present (GI), No Guarding due to palpation present (GI) and Yes Rebound tenderness present Auscultation: normal bowel sounds Other: Gastrostomy tube clamped with no erythema or drainage at the skin around the tube. ELSA drains x2 both with scant lagos purulent drainage. Midline incision healing well with Steri-Strips intact, no erythema. Urinary Catheter: Urinary Catheter: patent and draining and urine clear Extrem: Other: Bilateral lower extremities with 2+ pitting edema equal bilaterally. Both feet are warm to touch with normal color. Objective Data Vital Signs Vital Signs: Vital Signs - 24 hr 05/15/24 19:38 05/15/24 20:00 05/16/24 04:37 Temperature 98.1 F 97.5 F L Pulse Rate 84 84 87 Respiratory Rate 17 17 18 Blood Pressure 117/48 L 145/61 H Pulse Oximetry 95 95 95 Oxygen Delivery Room Air Fraction of Inspired Oxygen 21 05/16/24 09:18 05/16/24 10:32 05/16/24 10:32 Temperature Pulse Rate 84 Respiratory Rate 16 Blood Pressure Pulse Oximetry 96 Oxygen Delivery Room Air Room Air Fraction of Inspired Oxygen 05/16/24 10:43 Temperature Pulse Rate 84 Respiratory Rate 16 Blood Pressure Pulse Oximetry Oxygen Delivery Fraction of Inspired Oxygen Intake/Output Intake/Output: Intake & Output 05/13/24 05/14/24 05/15/24 05/16/24 23:59 23:59 23:59 23:59 Intake Total 1780 1947 1437 717 Output Total 1096 1766 7999 1523 Balance 682 -[phone] -[phone] -808 Meds/Results Medications: Active Medications Generic Name Dose Route Start Last Admin Trade Name Freq PRN Reason Stop Dose Admin Acetaminophen 650 mg 04/26/24 22:19 04/26/24 22:57 Acetaminophen 650 Mg Suppository RECTAL 650 mg Q6H PRN Administration Mild Pain (1-3) or Fever Acetaminophen 650 mg 05/05/24 10:27 05/08/24 12:38 Acetaminophen Elixir 325 Mg/10.15 Ml Udc PO 650 mg Q6H PRN Administration Mild Pain (1-3) or Fever Artificial Tears 1 drop 04/27/24 08:37 Artificial Tears Ophth Soln 15 Ml Bottle EACH EYE QID PRN Dry Eye(s) Atorvastatin Calcium 20 mg 04/30/24 09:00 Atorvastatin 20 Mg Tablet BY MOUTH DAILY ROSY Benzocaine 1 lozenge 05/15/24 15:35 05/15/24 20:27 Benzocaine/Menthol (*Bkc) 18 Ea Lozenge PO 1 lozenge PRN PRN Administration Sore Throat Clonidine HCl 1 patch 05/01/24 09:00 05/15/24 08:47 Clonidine 0.1 Mg/24 Hr Patch TRANSDERM 1 patch WEEKLY ROSY Administration Dextrose 12.5 gm 04/22/24 23:06 Dextrose 50% 25 Gm/50 Ml Syringe IV PUSH PRN PRN Hypoglycemia Protocol Enoxaparin Sodium 120 mg 05/09/24 06:00 05/15/24 05:08 Enoxaparin 120 Mg/0.8 Ml Syringe SUB-Q 120 mg Q24H ROSY Administration Epoetin Olu-epbx 10,000 units 05/14/24 11:05 05/14/24 11:21 Epoetin Olu-Epbx 10,000 Units/Ml Vial SUB-Q 10,000 units TUTHSA@09 ROSY Administration Glucagon 1 mg 04/22/24 23:06 Glucagon For Inj 1 Mg Vial IM PRN PRN Hypoglycemia Protocol Glucose 15 gm 04/22/24 23:06 Glucose Oral Gel 15 Gm Of Glucse In 37.5 Gm Tube PO PRN PRN Hypoglycemia Protocol Guaifenesin/Dextromethorphan 10 ml 05/15/24 10:07 05/16/24 09:52 Guaifenesin/Dextromethorphan 10 Ml Udc PO 10 ml Q4H PRN Administration Cough Hydralazine HCl 10 mg 04/25/24 08:00 05/03/24 21:47 Hydralazine Hcl 20 Mg/Ml Vial IV PUSH 10 mg Q4H PRN Administration Blood Pressure - High Dextrose 1,000 mls @ 100 mls/hr 04/22/24 23:06 Dextrose 5% 1,000 Ml IVPB PRN PRN Hypoglycemia Protocol Ipratropium [place] 0.5 mg 05/04/24 09:32 05/16/24 10:32 Ipratropium Br 0.02% Inh Soln 0.5 Mg/2.5 Ml Vial INHALATION 0.5 mg Q6HRT PRN Administration Shortness Of Breath Levalbuterol HCl 0.63 mg 05/04/24 09:32 05/16/24 10:31 Levalbuterol Neb 1.25 Mg/3 Ml INHALATION 0.63 mg Q6HRT PRN Administration Shortness Of Breath Lidocaine 1 patch 04/27/24 16:35 05/16/24 09:20 Lidocaine 5% Patch TRANSDERM 1 patch DAILY ROSY Administration Lorazepam 0.5 mg 05/16/24 13:48 Lorazepam (*Crx) 0.5 Mg Tablet PO Q6H PRN Anxiety Metoclopramide HCl 10 mg 05/16/24 18:00 Metoclopramide Hcl Inj 10 Mg/2 Ml Vial IV PUSH Q6HR ROSY Morphine Sulfate 4 mg 04/22/24 22:02 05/16/24 05:32 Morphine Sulfate (*Crx) 4 Mg/Ml Inj IV PUSH 4 mg Q3H PRN Administration Pain Rated 7-10 Ondansetron HCl 4 mg 05/13/24 11:22 05/15/24 12:53 Ondansetron Inj 4 Mg/2 Ml Vial IV PUSH 4 mg Q6H PRN Administration Nausea And Vomiting Pantoprazole Sodium 40 mg 04/26/24 21:00 05/16/24 09:18 Pantoprazole Sodium Iv 40 Mg Vial IV PUSH 40 mg Q12HR ROSY Administration Sodium Chloride 10 ml 04/23/24 14:00 05/16/24 13:58 Central Line Flush IV PUSH 10 ml Q8HR ROSY Administration Sodium Chloride 20 ml 04/23/24 10:16 05/08/24 06:10 Central Line Flush IV PUSH 20 ml PRN PRN Administration after blood draws Sodium Chloride 10 ml 05/04/24 14:15 Central Line Flush IV PUSH PRN PRN with TPN bag changes Sodium Chloride 20 ml 05/04/24 14:15 05/16/24 05:29 Central Line Flush IV PUSH 20 ml PRN PRN Administration after blood draws Radiology Results: ITS Impressions Chest/Abdomen/Pelvis CTA 04/22/24 18:10 IMPRESSION: Perforated viscus with a large amount of free air and fluid, with mural thickening in the distal stomach and multiple punctate foci of extraluminal air in this area for which site of perforation is suspected. Renal Ultrasound 04/24/24 11:58 IMPRESSION: Simple cyst in the left kidney upper pole. Other appearances are unremarkable. Lower Extremity CTA 05/02/24 16:36 IMPRESSION: 1. Scattered atherosclerotic plaque in the arteries of the left lower limb as detailed above without a discrete hemodynamic significant stenosis. Runoff below the ankle in the left posterior tibial artery this supplies the foot. Atretic distal peroneal and anterior tibial arteries with intraluminal contrast becoming indiscernible at the level of the ankle and with no appreciable contrast in the dorsalis pedis artery. Chest/Abdomen/Pelvis CT 05/08/24 10:43 IMPRESSION: Findings suggesting air and possible fluid extending from the lumen of the antrum of the stomach, with a small anterior collection, as detailed above. Repeat evaluation with Gastrografin via the gastrostomy would provide additional information. Upper GI Series 05/09/24 09:31 IMPRESSION: 1. Ulcer of the gastric antrum with contained extraluminal contrast similar to 04/28/2024. The extraluminal contrast distribution is worse than typically seen after Clarence patch repair. Abdomen CT 05/09/24 15:27 IMPRESSION: Redemonstration of a tract extending from the posterior superior margin of the antrum of the stomach only partially filled with oral contrast, perhaps demonstrating early healing. Chest X-Ray 05/14/24 14:23 IMPRESSION: Subsegmental bibasilar atelectasis/consolidation. Mild pulmonary congestion/interstitial edema. Small bilateral pleural effusions Labs Labs: Laboratory Results - last 24 hr 04/22/24 05/16/24 05/16/24 17:42 00:33 05:30 WBC 13.1 H RBC 2.68 L Hgb 8.1 L Hct 26.3 L MCV 98.1 MCH 30.2 MCHC 30.8 L RDW 16.2 H Plt Count 111 L MPV 13.7 H Immature Gran % (Auto) 7.0 H Neut % (Auto) 79.2 H Lymph % (Auto) 5.4 L Morgan % (Auto) 5.0 Eos % (Auto) 3.1 Baso % (Auto) 0.3 Lymph # (Auto) 0.71 L [place] # (Auto) 0.7 H Eos # (Auto) 0.4 H Baso # (Auto) 0.0 Abs Immat Gran (auto) 0.92 H Absolute Neuts (auto) 10.4 H Absolute Nucleated RBC 0.000 Band Neutrophils % Not Reportable Nucleated RBC % 0.0 Platelet Estimate Slightly decreased % Immature Plt Fraction 9.0 Hypochromasia 1+ Anisocytosis 1+ Schistocytes None seen Absolute Retic 0.04 Percent Retic 1.44 Immature Retic Fraction 22.5 H Retic Hgb Content 31.9 APTT 33.5 Sodium 137 Potassium 4.3 Chloride 107 Carbon Dioxide 22 Anion Gap 8 BUN 89 H Creatinine 3.20 H Estim Creat Clear Calc 25 Estimated GFR 19 L Glucose 113 H Calcium 8.0 L Magnesium 1.8 Total Bilirubin 0.8 AST 35 ALT 31 Alkaline Phosphatase 136 H Total Protein 6.0 L Albumin 2.5 L Stl Occult Blood (IFOB) Positive H Crossmatch See Detail
[2024-05-16] MEDS: METOCLOPRAMIDE HCL INJ 10 MG/2 ML VIAL IV PUSH ×2 (17:19→23:42)
[2024-05-16 20:00] VITALS: PULSE 84; RESP 18; O2SAT 98
[2024-05-16] MEDS: LORazepam (*CRX) 0.5 MG TABLET PO (20:30)
[2024-05-16 22:00] VITALS: BP 144/62; PULSE 84; RESP 18; TEMP 36.7; O2SAT 96
[2024-05-17] MEDS: ENOXAPARIN 120 MG/0.8 ML SYRINGE SUB-Q (05:05)
[2024-05-17] MEDS: CENTRAL LINE FLUSH 10 ML IV PUSH ×3 (05:05→21:05)
[2024-05-17] MEDS: METOCLOPRAMIDE HCL INJ 10 MG/2 ML VIAL IV PUSH ×4 (05:05→23:08)
[2024-05-17] MEDS: CENTRAL LINE FLUSH 20 ML IV PUSH (05:06)
[2024-05-17 06:00] VITALS: BP 147/50; PULSE 83; RESP 18; TEMP 37.2; O2SAT 97
[2024-05-17 06:02] LABS: Hemoglobin 8.7 g/dL (14.0-18.0); Immature Platelet Fraction Pct 8.3 % (0.9-11.2); Mean Corpuscular HGB Conc 31.1 g/dl (32-36); Mean Corpuscular Volume 96.6 fl (80-100); Mean Platelet Volume 13.9 fl (7.4-10.4); Platelet Count Result 135 k/mm3 (150-375); White Blood Count 16.9 K/mm3 (4.5-10.0)
[2024-05-17 06:22] LABS: Alanine Aminotransferase 34 U/L (6-50); Albumin Level 2.6 g/dL (3.5-5.1); Alkaline Phosphatase 145 U/L (38-126); Anion Gap 5 mmol/L (4-12); Aspartate Amino Transferase 40 U/L (17-59); Bilirubin,Total 0.8 mg/dL (0.2-1.3); Blood Urea Nitrogen 78 mg/dL (9-20); Carbon Dioxide 24 mmol/L (22-30); Chloride 107 mmol/L (98-107); Estimated CRCL calculation 28 ml/min; Estimated Glomerular Filt Rate 21; Glucose 107 mg/dL (65-110); Potassium 4.3 mmol/L (3.4-5.0); Sodium 136 mmol/L (137-145)
--- NOTE | 2024-05-17 07:06 | P.PNIM_ITS ---
Progress Note: A&P Assessment and Plan (1) Hematoma: Code(s): T14.8XXA - Other injury of unspecified body region, initial encounter Status: Acute Assessment and Plan: CT abdomen pelvis on 05/17/2024 showsIntramuscular hematoma of the right iliopsoas and psoas major muscles, with additional irregular hematoma extending to the posterior right retroperitoneum. Spoke with surgery likely noninfective Lidocaine patch Lovenox on hold, no recent found for therapeutic Lovenox, when patient was placed back on Lovenox likely benefit from the 40 mg (2) Pleural effusion: Code(s): J90 - Pleural effusion, not elsewhere classified Status: Acute Assessment and Plan: Seen on CT Chest x-ray dated compare Likely due to 3rd spacing (3) Perforated abdominal viscus: Code(s): R19.8 - Other specified symptoms and signs involving the digestive system and abdomen Status: Acute Assessment and Plan: * Septic shock in setting of peritonitis with perforated gastric ulcer: * Shock has resolved * Status post exploratory laparotomy with repair of antral gastric ulcer with omental Clarence patch, open gastrostomy tube * CT of the abdomen: Redemonstration of a tract extending from the posterior superior margin of the antrum of the stomach only partially filled with oral contrast, perhaps demonstrating early healing. * Surgery is following * Diet advanced to soft diet * CT of the abdomen and pelvis of the abdomen appears to be same, not recently white count is going up, surgery to order UA (4) Pneumonia: Code(s): J18.9 - Pneumonia, unspecified organism Status: Acute Assessment and Plan: Improving * Encourage IS use * Cornet therapy * nebs PRN * 05/13 finished antibiotics * Currently on room air (5) Malnutrition following gastrointestinal surgery: Code(s): K91.2 - Postsurgical malabsorption, not elsewhere classified Status: Acute Assessment and Plan: * Passed swallow study. * Patient advanced to soft diet today per General surgery recommendation * Continue to encourage po intake * Bolus tube feeding via G tube * add reglan and Marinol (6) Acute kidney injury superimposed on stage 3b chronic kidney disease: Code(s): N17.9 - Acute kidney failure, unspecified; N18.32 - Chronic kidney disease, stage 3b Status: Acute Assessment and Plan: * baseline most likely around 1.5 * Nephrology following * Renal ultrasound was unremarkable for any acute issues. * Continue diuresis per Nephrology recommendations --Albumin/Lasix * Nephrology following (7) Anemia: Code(s): D64.9 - Anemia, unspecified Status: Acute Assessment and Plan: Iron deficiency anemia on acute loss Stable * Trend CBC. * transfuse if hgb <7.0, or symptomatic * Iron replacement (8) HTN (hypertension): Code(s): I10 - Essential (primary) hypertension Status: Acute Assessment and Plan: Controlled * Continue Clonidine patch and Hydralazine PRN. * Trend BP (9) Generalized weakness: Code(s): R53.1 - Weakness Status: Acute Assessment and Plan: * PT/OT-maxi move use for transfer * Patient will likely need placement (10) Hypokalemia: Code(s): E87.6 - Hypokalemia Status: Acute Assessment and Plan: Improved * Trend labs * Replace as indicated (11) Hypernatremia: Code(s): E87.0 - Hyperosmolality and hypernatremia Status: Acute Assessment and Plan: Resolved Daily BMP Time Spent With Patient Time with patient: Greater than 35 minutes Subjective Date/time seen: 05/17/24 07:06 Interval history: Surgery gastric cancer status post repair with omental patch and acute kidney injury CT abdomen pelvis on 05/17/2024 showsIntramuscular hematoma of the right iliopsoas and psoas major muscles, with additional irregular hematoma extending to the posterior right retroperitoneum. Small bilateral pleural effusions. Persistent wall thickening of the gastric antrum/duodenum with surrounding haziness, compatible postoperative change. There is persistent irregular tract with small amount of fluid and external air extending from the gastric antrum superiorly/anteriorly, which could reflect abscess or persistent contained perforation. No extraluminal contrast seen, and no oral contrast seen within this collection. Hemoglobin is stable over the last couple days Increase leukocytosis this morning Review of Systems Review of Systems: 12 systems were reviewed and are negativ e except for as per HPI. Exam Narrative: General: well appearing, appears stated age. HEENT: normocephalic, atraumatic. Mucous membranes moist. EOMI, PERRLA, bilateral sclera anicteric, no conjunctival injection. Neck supple without JVD, lymphadenopathy, or bruit. Respiratory: clear to ascultation bilaterally. No rales/rhonic/wheezes. Cardiovascular: Regular rate and rhythm, normal S1-S2 upon ascultation. No murmurs, rubs, or clicks. PMI is nondisplaced, capillary refill less than 3 second. Abdomen: Soft, round, no pulsatile masses, nondistended and nontender. No rebound, no guarding. No CVA tenderness, no hepatosplenomegaly. Bowel sounds present to all four quadrants. No high pitch or tinkling sounds, resonant to percussion. Extremities: No cyanosis, clubbing, or edema present. Pulses are palpable 2/2. Active ROM to all four extremities. Neuro: Alert and orientated x 4. PERRLA. Cranial nerves 2-12 intact without focal deficit. Skin: Warm, dry, and intact, without rash, erythema, or lesion. Psych: pleasant, cooperative, normal speech, normal affect, no hallucinations, no dysarthia Skin: PEG tube, ELSA drain x2 in place, midline incision well approximated without redness or drainage. Objective Data Vital Signs Vital Signs: Vital Signs - 24 hr 05/16/24 09:18 05/16/24 10:32 05/16/24 10:32 Temperature Pulse Rate 84 Respiratory Rate 16 Blood Pressure Pulse Oximetry 96 Oxygen Delivery Room Air Room Air Fraction of Inspired Oxygen 21 05/16/24 10:43 05/16/24 14:00 05/16/24 20:00 Temperature 97.6 F Pulse Rate 84 84 84 Respiratory Rate 16 18 18 Blood Pressure 164/67 H Pulse Oximetry 98 98 Oxygen Delivery Room Air Fraction of Inspired Oxygen 21 05/16/24 22:00 05/17/24 06:00 Temperature 98.1 F 99.0 F Pulse Rate 84 83 Respiratory Rate 18 18 Blood Pressure 144/62 H 147/50 H Pulse Oximetry 96 97 Oxygen Delivery Fraction of Inspired Oxygen Intake/Output Intake/Output: Intake & Output 05/14/24 05/15/24 05/16/24 05/17/24 23:59 23:59 23:59 23:59 Intake Total 1947 1437 1777 Output Total 5230 1120 1953 1600 [facility] -[phone] -[phone] -178 -1600 Meds/Results Medications: Active Medications Generic Name Dose Route Start Last Admin Trade Name Freq PRN Reason Stop Dose Admin Acetaminophen 650 mg 04/26/24 22:19 04/26/24 22:57 Acetaminophen 650 Mg Suppository RECTAL 650 mg Q6H PRN Administration Mild Pain (1-3) or Fever Acetaminophen 650 mg 05/05/24 10:27 05/08/24 12:38 Acetaminophen Elixir 325 Mg/10.15 Ml Udc PO 650 mg Q6H PRN Administration Mild Pain (1-3) or Fever Artificial Tears 1 drop 04/27/24 08:37 Artificial Tears Ophth Soln 15 Ml Bottle EACH EYE QID PRN Dry Eye(s) Atorvastatin Calcium 20 mg 04/30/24 09:00 Atorvastatin 20 Mg Tablet BY MOUTH DAILY ROSY Benzocaine 1 lozenge 05/15/24 15:35 05/15/24 20:27 Benzocaine/Menthol (*Bkc) 18 Ea Lozenge PO 1 lozenge PRN PRN Administration Sore Throat Clonidine HCl 1 patch 05/01/24 09:00 05/15/24 08:47 Clonidine 0.1 Mg/24 Hr Patch TRANSDERM 1 patch WEEKLY ROSY Administration Dextrose 12.5 gm 04/22/24 23:06 Dextrose 50% 25 Gm/50 Ml Syringe IV PUSH PRN PRN Hypoglycemia Protocol Enoxaparin Sodium 120 mg 05/09/24 06:00 05/17/24 05:05 Enoxaparin 120 Mg/0.8 Ml Syringe SUB-Q 120 mg Q24H ROSY Administration Epoetin Olu-epbx 10,000 units 05/14/24 11:05 05/14/24 11:21 Epoetin Olu-Epbx 10,000 Units/Ml Vial SUB-Q 10,000 units TUTHSA@09 ROSY Administration Glucagon 1 mg 04/22/24 23:06 Glucagon For Inj 1 Mg Vial IM PRN PRN Hypoglycemia Protocol Glucose 15 gm 04/22/24 23:06 Glucose Oral Gel 15 Gm Of Glucse In 37.5 Gm Tube PO PRN PRN Hypoglycemia Protocol Guaifenesin/Dextromethorphan 10 ml 05/15/24 10:07 05/16/24 09:52 Guaifenesin/Dextromethorphan 10 Ml Udc PO 10 ml Q4H PRN Administration Cough Hydralazine HCl 10 mg 04/25/24 08:00 05/03/24 21:47 Hydralazine Hcl 20 Mg/Ml Vial IV PUSH 10 mg Q4H PRN Administration Blood Pressure - High Dextrose 1,000 mls @ 100 mls/hr 04/22/24 23:06 Dextrose 5% 1,000 Ml IVPB PRN PRN Hypoglycemia Protocol Ipratropium [place] 0.5 mg 05/04/24 09:32 05/16/24 10:32 Ipratropium Br 0.02% Inh Soln 0.5 Mg/2.5 Ml Vial INHALATION 0.5 mg Q6HRT PRN Administration Shortness Of Breath Levalbuterol HCl 0.63 mg 05/04/24 09:32 05/16/24 10:31 Levalbuterol Neb 1.25 Mg/3 Ml INHALATION 0.63 mg Q6HRT PRN Administration Shortness Of Breath Lidocaine 1 patch 04/27/24 16:35 05/16/24 09:20 Lidocaine 5% Patch TRANSDERM 1 patch DAILY ROSY Administration Lorazepam 0.5 mg 05/16/24 13:48 05/16/24 20:30 Lorazepam (*Crx) 0.5 Mg Tablet PO 0.5 mg Q6H PRN Administration Anxiety Metoclopramide HCl 10 mg 05/16/24 18:00 05/17/24 05:05 Metoclopramide Hcl Inj 10 Mg/2 Ml Vial IV PUSH 10 mg Q6HR ROSY Administration Morphine Sulfate 4 mg 04/22/24 22:02 05/16/24 23:42 Morphine Sulfate (*Crx) 4 Mg/Ml Inj IV PUSH 4 mg Q3H PRN Administration Pain Rated 7-10 Ondansetron HCl 4 mg 05/13/24 11:22 05/15/24 12:53 Ondansetron Inj 4 Mg/2 Ml Vial IV PUSH 4 mg Q6H PRN Administration Nausea And Vomiting Pantoprazole Sodium 40 mg 04/26/24 21:00 05/16/24 20:30 Pantoprazole Sodium Iv 40 Mg Vial IV PUSH 40 mg Q12HR ROSY Administration Sodium Chloride 10 ml 04/23/24 14:00 05/17/24 05:05 Central Line Flush IV PUSH 10 ml Q8HR ROSY Administration Sodium Chloride 20 ml 04/23/24 10:16 05/08/24 06:10 Central Line Flush IV PUSH 20 ml PRN PRN Administration after blood draws Sodium Chloride 10 ml 05/04/24 14:15 Central Line Flush IV PUSH PRN PRN with TPN bag changes Sodium Chloride 20 ml 05/04/24 14:15 05/17/24 05:06 Central Line Flush IV PUSH 20 ml PRN PRN Administration after blood draws Radiology Results: ITS Impressions Chest/Abdomen/Pelvis CTA 04/22/24 18:10 IMPRESSION: Perforated viscus with a large amount of free air and fluid, with mural thickening in the distal stomach and multiple punctate foci of extraluminal air in this area for which site of perforation is suspected. Renal Ultrasound 04/24/24 11:58 IMPRESSION: Simple cyst in the left kidney upper pole. Other appearances are unremarkable. Lower Extremity CTA 05/02/24 16:36 IMPRESSION: 1. Scattered atherosclerotic plaque in the arteries of the left lower limb as detailed above without a discrete hemodynamic significant stenosis. Runoff below the ankle in the left posterior tibial artery this supplies the foot. Atretic distal peroneal and anterior tibial arteries with intraluminal contrast becoming indiscernible at the level of the ankle and with no appreciable contrast in the dorsalis pedis artery. Chest/Abdomen/Pelvis CT 05/08/24 10:43 IMPRESSION: Findings suggesting air and possible fluid extending from the lumen of the antrum of the stomach, with a small anterior collection, as detailed above. Repeat evaluation with Gastrografin via the gastrostomy would provide additional information. Upper GI Series 05/09/24 09:31 IMPRESSION: 1. Ulcer of the gastric antrum with contained extraluminal contrast similar to 04/28/2024. The extraluminal contrast distribution is worse than typically seen after Clarence patch repair. Abdomen CT 05/09/24 15:27 IMPRESSION: Redemonstration of a tract extending from the posterior superior margin of the antrum of the stomach only partially filled with oral contrast, perhaps demonstrating early healing. Chest X-Ray 05/14/24 14:23 IMPRESSION: Subsegmental bibasilar atelectasis/consolidation. Mild pulmonary congestion/interstitial edema. Small bilateral pleural effusions Labs Labs: Laboratory Results - last 24 hr 04/22/24 05/17/24 17:42 05:05 Sodium 136 L Potassium 4.3 Chloride 107 Carbon Dioxide 24 Anion Gap 5 BUN 78 H D Creatinine 2.88 H Estim Creat Clear Calc 28 Estimated GFR 21 L Glucose 107 Calcium 8.0 L Total Bilirubin 0.8 AST 40 ALT 34 Alkaline Phosphatase 145 H Total Protein 6.0 L Albumin 2.6 L Crossmatch See Detail Quality VTE Prophylaxis VTE prophylaxis: mechanical ordered and pharmacologic ordered
[2024-05-17] MEDS: MORPHINE SULFATE (*CRX) 4 MG/ML INJ IV PUSH ×3 (07:44→16:04)
[2024-05-17] MEDS: LIDOCAINE 5% PATCH 1 PATCH TRANSDERM (08:00)
[2024-05-17] MEDS: EPOETIN ALFA-EPBX 10,000 UNITS/ML VIAL 10000 UNITS SUB-Q (08:00)
[2024-05-17] MEDS: PANTOPRAZOLE SODIUM IV 40 MG VIAL IV PUSH ×2 (08:00→21:05)
[2024-05-17 08:03] LABS: Eosinophils Absolute Manual 0.16 K/mm3 (0.02-0.50); Eosinophils Percent Manual 1 % (0-4); Lymphocytes Percent Manual 3 % (18-44); Monocytes Absolute Manual 1.01 K/mm3 (0.1-0.90); Monocytes Percent Manual 6 % (3-9); Neutrophils Percent Manual 90 % (46-73); Platelet Estimate Decreased (Adequate)
[2024-05-17 08:04] LABS: Anisocytosis 1+; Schistocytes None Seen
--- NOTE | 2024-05-17 08:04 | PCPTNOTE ---
Attempted to see patient for PT, however patient was leaving room soon for testing. Patient unable to be seen at this time.
--- NOTE | 2024-05-17 08:47 | PCOTNOTE ---
The patient treatment was not able to be completed. Patient out of the room. Will plan to continue treatment per plan of care.
--- NOTE | 2024-05-17 09:45 | P.PNNP_ITS ---
Progress Note: A&P Assessment and Plan (1) Acute kidney injury: Code(s): N17.9 - Acute kidney failure, unspecified Status: Acute Assessment and Plan: * better by recent labs * had improved to baseline (1.5mg/dl) on 04/30 * then georgette to the low 4ish range * suspect initial insult to be of multifactorial etiology: * NSAID use * hypotension/hemodynmic instability/shock * sepsis/infection * third spacing * evaluation to date: * CT shows normal kidneys * renal u/s with simple cyst x 1 o/w unremarkable. * urine electrolytes are prerenal * CPK mildly elevated (but not enough to affect kidneys) * urine eosinophils negative * mild proteinuria * another acute insult noted by recent labs (since 05/02): * possible due to pre-renal factors, infection (UTI +/- pneumonia versus gastric leak) * recent imaging noted - no evidence of gastric leak * repeat urine studies (on 05/08) suggestive of UTI and prerenal azotemia * despite prerenal urine electrolytes, he has evidence of volume overload * suspect related to 3rd spacing and hypoalbuminemia * recent echocardiogram shows good LV function and no pulmonary hypertension * good diuresis/UOP with IV albumin and IV lasix x 3 doses * follow trend as of urine output without diuretic therapy * follow trend of repeat labs and UOP (2) Stage 3b chronic kidney disease: Code(s): N18.32 - Chronic kidney disease, stage 3b Status: Chronic Assessment and Plan: * creatinine ~ 1.5mg/dl in November 2023 * suspect secondary to hypertension, peripheral vascular disease, and possibly chronic NSAID use as well as age-related change (3) Perforated gastric ulcer: Onset Date: 04/2024 Qualifiers: Gastric ulcer chronicity: acute Qualified Code(s): K25.1 - Acute gastric ulcer with perforation Code(s): K25.5 - Chronic or unspecified gastric ulcer with perforation Status: Acute Assessment and Plan: * suspect secondary to NSAID use * s/p exploratory laparotomy and repair of antral gastric ulcer with omental Clarence patch and placement of open gastrostomy tube (on 04/22) * completed course of antibiotics * TPN discontinued * tolerating G-tube feedings but attempting oral feeding * General Surgery following (4) PAD (peripheral artery disease): Code(s): I73.9 - Peripheral vascular disease, unspecified Status: Acute Assessment and Plan: * CTA of left lower extremity noted * suspect acute on chronic issue * on anticoagulation (5) Anemia: Code(s): D64.9 - Anemia, unspecified Status: Acute Assessment and Plan: * noted acute drop (on 05/10, 05/11, and 05/12) requiring blood transfusion * due to RIC, CKD, and acute illness along with CT scan findings on 05/17: * Intramuscular hematoma of the right iliopsoas and psoas major muscles, with additional irregular hematoma extending to the posterior right retroperitoneum * anemia studies also note iron deficiency * PRBC transfusion per protocol * on Epogen 3x/week (6) Malnutrition following gastrointestinal surgery: Code(s): K91.2 - Postsurgical malabsorption, not elsewhere classified Status: Acute Assessment and Plan: * off TPN * tube feeds ongoing with boluses * attempting to transition to oral intake (but poor appetite noted) (7) HTN (hypertension): Code(s): I10 - Essential (primary) hypertension Status: Acute Assessment and Plan: * reasonable control * follow trend of hemodynamics (8) Generalized weakness: Code(s): R53.1 - Weakness Status: Acute Assessment and Plan: * multifactorial * PT/OT as tolerated Will continue to follow. L Subjective Date/time seen: 05/17/24 09:45 Interval history: Follow-up for acute kidney injury/acute renal failure on chronic kidney disease. Renal function/creatinine continues to improve by trend of labs and making good urine output (even with diuretic therapy on hold); CT scan earlier this AM with results noted -- anticoagulation on hold now; major complaint is still of back and neck pain which has been a chronic problems since admission; no other acute events ovenight or earlier this morning. Exam 2 Narrative: General: elderly but WD/WN male in NAD Heart: normal S1 and S2; no rub Lungs: clear anteriorly; decreased at bases Abdomen: soft, nontender; some bowel sounds; +G-tube Extremities: no cyanosis or clubbing; 1+ edema Skin: warm and intact Objective Data Vital Signs Vital Signs: Vital Signs Temp Pulse Resp BP Pulse Ox O2 Del Method FiO2 05/17/24 09:45 88 20 100 Room Air 05/17/24 08:00 Room Air 05/17/24 06:00 99.0 F 83 18 147/50 H 97 05/16/24 22:00 98.1 F 84 18 144/62 H 96 05/16/24 20:00 84 18 98 Room Air 21 05/16/24 14:00 97.6 F 84 18 164/67 H 98 Intake/Output Intake/Output: Intake & Output 05/14/24 05/15/24 05/16/24 05/17/24 23:59 23:59 23:59 23:59 Intake Total 1947 1437 1777 240 Output Total 5218 1956 1951 2742 [facility] -6514 -6503 -066 -0333 Meds/Results Medications: Active Medications Generic Name Dose Route Start Last Admin Trade Name Freq PRN Reason Stop Dose Admin Acetaminophen 650 mg 04/26/24 22:19 04/26/24 22:57 Acetaminophen 650 Mg Suppository RECTAL 650 mg Q6H PRN Administration Mild Pain (1-3) or Fever Acetaminophen 650 mg 05/05/24 10:27 05/08/24 12:38 Acetaminophen Elixir 325 Mg/10.15 Ml Udc PO 650 mg Q6H PRN Administration Mild Pain (1-3) or Fever Artificial Tears 1 drop 04/27/24 08:37 Artificial Tears Ophth Soln 15 Ml Bottle EACH EYE QID PRN Dry Eye(s) Atorvastatin Calcium 20 mg 04/30/24 09:00 Atorvastatin 20 Mg Tablet BY MOUTH DAILY ROSY Benzocaine 1 lozenge 05/15/24 15:35 05/15/24 20:27 Benzocaine/Menthol (*Bkc) 18 Ea Lozenge PO 1 lozenge PRN PRN Administration Sore Throat Clonidine HCl 1 patch 05/01/24 09:00 05/15/24 08:47 Clonidine 0.1 Mg/24 Hr Patch TRANSDERM 1 patch WEEKLY ROSY Administration Dextrose 12.5 gm 04/22/24 23:06 Dextrose 50% 25 Gm/50 Ml Syringe IV PUSH PRN PRN Hypoglycemia Protocol Enoxaparin Sodium 120 mg 05/09/24 06:00 05/17/24 05:05 Enoxaparin 120 Mg/0.8 Ml Syringe SUB-Q 120 mg Q24H ROSY Administration Epoetin Olu-epbx 10,000 units 05/14/24 11:05 05/17/24 08:00 Epoetin Olu-Epbx 10,000 Units/Ml Vial SUB-Q 10,000 units TUTHSA@09 ROSY Administration Glucagon 1 mg 04/22/24 23:06 Glucagon For Inj 1 Mg Vial IM PRN PRN Hypoglycemia Protocol Glucose 15 gm 04/22/24 23:06 Glucose Oral Gel 15 Gm Of Glucse In 37.5 Gm Tube PO PRN PRN Hypoglycemia Protocol Guaifenesin/Dextromethorphan 10 ml 05/15/24 10:07 05/16/24 09:52 Guaifenesin/Dextromethorphan 10 Ml Udc PO 10 ml Q4H PRN Administration Cough Hydralazine HCl 10 mg 04/25/24 08:00 05/03/24 21:47 Hydralazine Hcl 20 Mg/Ml Vial IV PUSH 10 mg Q4H PRN Administration Blood Pressure - High Dextrose 1,000 mls @ 100 mls/hr 04/22/24 23:06 Dextrose 5% 1,000 Ml IVPB PRN PRN Hypoglycemia Protocol Ipratropium [place] 0.5 mg 05/04/24 09:32 05/17/24 10:11 Ipratropium Br 0.02% Inh Soln 0.5 Mg/2.5 Ml Vial INHALATION 0.5 mg Q6HRT PRN Administration Shortness Of Breath Levalbuterol HCl 0.63 mg 05/04/24 09:32 05/17/24 10:11 Levalbuterol Neb 1.25 Mg/3 Ml INHALATION 0.63 mg Q6HRT PRN Administration Shortness Of Breath Lidocaine 1 patch 04/27/24 16:35 05/17/24 08:00 Lidocaine 5% Patch TRANSDERM 05/18/24 08:59 1 patch DAILY ROSY Administration Lidocaine 1 patch 05/18/24 09:00 Lidocaine 5% Patch TRANSDERM DAILY ROSY Lorazepam 0.5 mg 05/16/24 13:48 05/16/24 20:30 Lorazepam (*Crx) 0.5 Mg Tablet PO 0.5 mg Q6H PRN Administration Anxiety Metoclopramide HCl 10 mg 05/16/24 18:00 05/17/24 05:05 Metoclopramide Hcl Inj 10 Mg/2 Ml Vial IV PUSH 10 mg Q6HR ROSY Administration Morphine Sulfate 4 mg 04/22/24 22:02 05/17/24 11:56 Morphine Sulfate (*Crx) 4 Mg/Ml Inj IV PUSH 4 mg Q3H PRN Administration Pain Rated 7-10 Ondansetron HCl 4 mg 05/13/24 11:22 05/15/24 12:53 Ondansetron Inj 4 Mg/2 Ml Vial IV PUSH 4 mg Q6H PRN Administration Nausea And Vomiting Pantoprazole Sodium 40 mg 04/26/24 21:00 05/17/24 08:00 Pantoprazole Sodium Iv 40 Mg Vial IV PUSH 40 mg Q12HR ROSY Administration Sodium Chloride 10 ml 04/23/24 14:00 05/17/24 05:05 Central Line Flush IV PUSH 10 ml Q8HR ROSY Administration Sodium Chloride 20 ml 04/23/24 10:16 05/08/24 06:10 Central Line Flush IV PUSH 20 ml PRN PRN Administration after blood draws Sodium Chloride 10 ml 05/04/24 14:15 Central Line Flush IV PUSH PRN PRN with TPN bag changes Sodium Chloride 20 ml 05/04/24 14:15 05/17/24 05:06 Central Line Flush IV PUSH 20 ml PRN PRN Administration after blood draws Radiology Results: ITS Impressions Chest/Abdomen/Pelvis CTA 04/22/24 18:10 IMPRESSION: Perforated viscus with a large amount of free air and fluid, with mural thickening in the distal stomach and multiple punctate foci of extraluminal air in this area for which site of perforation is suspected. Renal Ultrasound 04/24/24 11:58 IMPRESSION: Simple cyst in the left kidney upper pole. Other appearances are unremarkable. Lower Extremity CTA 05/02/24 16:36 IMPRESSION: 1. Scattered atherosclerotic plaque in the arteries of the left lower limb as detailed above without a discrete hemodynamic significant stenosis. Runoff below the ankle in the left posterior tibial artery this supplies the foot. Atretic distal peroneal and anterior tibial arteries with intraluminal contrast becoming indiscernible at the level of the ankle and with no appreciable contrast in the dorsalis pedis artery. Chest/Abdomen/Pelvis CT 05/08/24 10:43 IMPRESSION: Findings suggesting air and possible fluid extending from the lumen of the antrum of the stomach, with a small anterior collection, as detailed above. Repeat evaluation with Gastrografin via the gastrostomy would provide additional information. Upper GI Series 05/09/24 09:31 IMPRESSION: 1. Ulcer of the gastric antrum with contained extraluminal contrast similar to 04/28/2024. The extraluminal contrast distribution is worse than typically seen after Clarence patch repair. Abdomen CT 05/09/24 15:27 IMPRESSION: Redemonstration of a tract extending from the posterior superior margin of the antrum of the stomach only partially filled with oral contrast, perhaps demonstrating early healing. Chest X-Ray 05/14/24 14:23 IMPRESSION: Subsegmental bibasilar atelectasis/consolidation. Mild pulmonary congestion/interstitial edema. Small bilateral pleural effusions Abdomen/Pelvis CT 05/17/24 09:03 Impression: Persistent wall thickening of the gastric antrum/duodenum with surrounding haziness, compatible postoperative change. There is persistent irregular tract with small amount of fluid and external air extending from the gastric antrum superiorly/anteriorly, which could reflect abscess or persistent contained perforation. No extraluminal contrast seen, and no oral contrast seen within this collection. Intramuscular hematoma of the right iliopsoas and psoas major muscles, with additional irregular hematoma extending to the posterior right retroperitoneum. Bilateral fat-containing inguinal hernias. Small bilateral pleural effusions. Labs Labs: Laboratory Tests 05/17/24 05:05 05/17/24 05:05 PT 15.6 H INR 1.2 Calcium 8.0 L Total Bilirubin 0.8 AST 40 ALT 34 Alkaline Phosphatase 145 H Total Protein 6.0 L Albumin 2.6 L
[2024-05-17 09:47] VITALS: PULSE 88; RESP 20; O2SAT 100
[2024-05-17] MEDS: LEVALBUTEROL NEB 1.25 MG/3 ML 0.63 MG INHALATION (10:11)
[2024-05-17] MEDS: IPRATROPIUM BR 0.02% INH SOLN 0.5 MG/2.5 ML VIAL INHALATION (10:11)
--- NOTE | 2024-05-17 10:30 | PCPTNOTE ---
The patient treatment was not able to be completed on 05/17/2024 due to new test results on abdomen CT . Will plan to continue treatment per plan of care.
[2024-05-17 10:50] LABS: INR 1.2; Prothrombin Time 15.6 Seconds (11.1-14.7)
[2024-05-17 10:52] LABS: Partial Thromboplastin Time 43.1 Seconds (22.3-36.8)
--- NOTE | 2024-05-17 11:17 | PM.PNGS ---
Progress Note: A&P Assessment and Plan (1) Perforated gastric ulcer: Onset Date: 04/2024 Qualifiers: Gastric ulcer chronicity: acute Qualified Code(s): K25.1 - Acute gastric ulcer with perforation Code(s): K25.5 - Chronic or unspecified gastric ulcer with perforation Status: Acute Assessment and Plan: Status post repair with omental patch. WBC count up again to 16.9. Repeat CT scan of the abdomen pelvis with oral contrast today was unchanged with a small amount of fluid and external air extending from the gastric antrum. No extraluminal contrast or enlarging abscess. There was new findings of a right iliopsoas hematoma. This may have been contributing to his anemia, but his hemoglobin has been stable over the past few days. Continue to hold the Lovenox and we will continue to monitor. Doubt that this is causing his leukocytosis. Will get a UA to evaluate his urine. RUQ ELSA drain with no output and was removed today. LUQ ELSA drain still with some output, will monitor for now. Continue current diet and supplements. Discussed his case with the dietitian as he is continuing to have poor p.o. intake. We will try bolus tube feedings after his meal to give him additional nutrition, while allowing him to try eating on his own first. I had a long discussion with the patient today regarding the importance of his nutritional status. He still has poor appetite. We will try starting Marinol once daily and monitor. I also encouraged family to bring in anything outside of the hospital that he would enjoy eating. (2) Malnutrition following gastrointestinal surgery: Code(s): K91.2 - Postsurgical malabsorption, not elsewhere classified Status: Acute Assessment and Plan: Still having poor appetite and poor p.o. intake. Nausea improved. Continue Reglan. Will start Marinol and encourage p.o intake. Dietitian recommending TID bolus tube feedings following meals. (3) Acute kidney injury superimposed on stage 3b chronic kidney disease: Code(s): N17.9 - Acute kidney failure, unspecified; N18.32 - Chronic kidney disease, stage 3b Status: Acute Assessment and Plan: Creatinine continues to improve. Nephrology is following and management as per Nephrology. Plan I have discussed the patient's case and plan of care with Dr. Moreno. Subjective Subjective Date/Time Seen: 05/17/24 11:17 Patient reports: no new complaints and afebrile Interval history: Patient's only complaint today is neck pain. This is been ongoing since surgery. He reports pain between his shoulder blades and neck. He denies any abdominal pain, flank pain, or leg pain. He still has poor appetite but is not nauseous today. No vomiting since last Thursday. Bowels are moving. He has been afebrile, but his white blood cell count continues to rise to 16,000 today. Review of Systems Review of Systems: All systems reviewed & are unremarkable except as noted in HPI and below Exam Const: General: comfortable and no acute distress Orientation/consciousness: patient oriented x3 GI: Inspection: Abdominal wall edema bilateral, distended and incision (Healing well, no erythema, Steri-Strips intact) GI Palp: Yes Soft to palpation, No Tenderness to palpation present (GI), No Guarding due to palpation present (GI) and No Rebound tenderness present Auscultation: normal bowel sounds Other: Right upper quadrant ELSA drain with no output. Suture and drain removed. Left upper quadrant ELSA drain with lagos purulence drainage. Gastrostomy tube clamped with skin around tube without erythema or drainage. Urinary Catheter: Urinary Catheter: patent and draining and urine clear (Dark yellow) Extrem: General: no calf tenderness Other: Bilateral feet warm with normal color. Able to wiggle toes equally bilaterally. Objective Data Vital Signs Vital Signs: Vital Signs - 24 hr 05/16/24 14:00 05/16/24 20:00 05/16/24 22:00 Temperature 97.6 F 98.1 F Pulse Rate 84 84 84 Respiratory Rate 18 18 18 Blood Pressure 164/67 H 144/62 H Pulse Oximetry 98 98 96 Oxygen Delivery Room Air Fraction of Inspired Oxygen 21 05/17/24 06:00 05/17/24 08:00 05/17/24 09:47 Temperature 99.0 F Pulse Rate 83 Respiratory Rate 18 Blood Pressure 147/50 H Pulse Oximetry 97 100 Oxygen Delivery Room Air Room Air Fraction of Inspired Oxygen 05/17/24 09:47 Temperature Pulse Rate 88 Respiratory Rate 20 Blood Pressure Pulse Oximetry Oxygen Delivery Fraction of Inspired Oxygen Intake/Output Intake/Output: Intake & Output 05/14/24 05/15/24 05/16/24 05/17/24 23:59 23:59 23:59 23:59 Intake Total 1947 1437 1777 240 Output Total 7854 8728 7 4277 [facility] -3348 -2968 -178 -1360 Meds/Results Medications: Active Medications Generic Name Dose Route Start Last Admin Trade Name Freq PRN Reason Stop Dose Admin Acetaminophen 650 mg 04/26/24 22:19 04/26/24 22:57 Acetaminophen 650 Mg Suppository RECTAL 650 mg Q6H PRN Administration Mild Pain (1-3) or Fever Acetaminophen 650 mg 05/05/24 10:27 05/08/24 12:38 Acetaminophen Elixir 325 Mg/10.15 Ml Udc PO 650 mg Q6H PRN Administration Mild Pain (1-3) or Fever Artificial Tears 1 drop 04/27/24 08:37 Artificial Tears Ophth Soln 15 Ml Bottle EACH EYE QID PRN Dry Eye(s) Atorvastatin Calcium 20 mg 04/30/24 09:00 Atorvastatin 20 Mg Tablet BY MOUTH DAILY ROSY Benzocaine 1 lozenge 05/15/24 15:35 05/15/24 20:27 Benzocaine/Menthol (*Bkc) 18 Ea Lozenge PO 1 lozenge PRN PRN Administration Sore Throat Clonidine HCl 1 patch 05/01/24 09:00 05/15/24 08:47 Clonidine 0.1 Mg/24 Hr Patch TRANSDERM 1 patch WEEKLY ROSY Administration Dextrose 12.5 gm 04/22/24 23:06 Dextrose 50% 25 Gm/50 Ml Syringe IV PUSH PRN PRN Hypoglycemia Protocol Enoxaparin Sodium 120 mg 05/09/24 06:00 05/17/24 05:05 Enoxaparin 120 Mg/0.8 Ml Syringe SUB-Q 120 mg Q24H ROSY Administration Epoetin Olu-epbx 10,000 units 05/14/24 11:05 05/17/24 08:00 Epoetin Olu-Epbx 10,000 Units/Ml Vial SUB-Q 10,000 units TUTHSA@09 ROSY Administration Glucagon 1 mg 04/22/24 23:06 Glucagon For Inj 1 Mg Vial IM PRN PRN Hypoglycemia Protocol Glucose 15 gm 04/22/24 23:06 Glucose Oral Gel 15 Gm Of Glucse In 37.5 Gm Tube PO PRN PRN Hypoglycemia Protocol Guaifenesin/Dextromethorphan 10 ml 05/15/24 10:07 05/16/24 09:52 Guaifenesin/Dextromethorphan 10 Ml Udc PO 10 ml Q4H PRN Administration Cough Hydralazine HCl 10 mg 04/25/24 08:00 05/03/24 21:47 Hydralazine Hcl 20 Mg/Ml Vial IV PUSH 10 mg Q4H PRN Administration Blood Pressure - High Dextrose 1,000 mls @ 100 mls/hr 04/22/24 23:06 Dextrose 5% 1,000 Ml IVPB PRN PRN Hypoglycemia Protocol Ipratropium [place] 0.5 mg 05/04/24 09:32 05/17/24 10:11 Ipratropium Br 0.02% Inh Soln 0.5 Mg/2.5 Ml Vial INHALATION 0.5 mg Q6HRT PRN Administration Shortness Of Breath Levalbuterol HCl 0.63 mg 05/04/24 09:32 05/17/24 10:11 Levalbuterol Neb 1.25 Mg/3 Ml INHALATION 0.63 mg Q6HRT PRN Administration Shortness Of Breath Lidocaine 1 patch 04/27/24 16:35 05/17/24 08:00 Lidocaine 5% Patch TRANSDERM 1 patch DAILY ROSY Administration Lorazepam 0.5 mg 05/16/24 13:48 05/16/24 20:30 Lorazepam (*Crx) 0.5 Mg Tablet PO 0.5 mg Q6H PRN Administration Anxiety Metoclopramide HCl 10 mg 05/16/24 18:00 05/17/24 05:05 Metoclopramide Hcl Inj 10 Mg/2 Ml Vial IV PUSH 10 mg Q6HR ROSY Administration Morphine Sulfate 4 mg 04/22/24 22:02 05/17/24 07:44 Morphine Sulfate (*Crx) 4 Mg/Ml Inj IV PUSH 4 mg Q3H PRN Administration Pain Rated 7-10 Ondansetron HCl 4 mg 05/13/24 11:22 05/15/24 12:53 Ondansetron Inj 4 Mg/2 Ml Vial IV PUSH 4 mg Q6H PRN Administration Nausea And Vomiting Pantoprazole Sodium 40 mg 04/26/24 21:00 05/17/24 08:00 Pantoprazole Sodium Iv 40 Mg Vial IV PUSH 40 mg Q12HR ROSY Administration Sodium Chloride 10 ml 04/23/24 14:00 05/17/24 05:05 Central Line Flush IV PUSH 10 ml Q8HR ROSY Administration Sodium Chloride 20 ml 04/23/24 10:16 05/08/24 06:10 Central Line Flush IV PUSH 20 ml PRN PRN Administration after blood draws Sodium Chloride 10 ml 05/04/24 14:15 Central Line Flush IV PUSH PRN PRN with TPN bag changes Sodium Chloride 20 ml 05/04/24 14:15 05/17/24 05:06 Central Line Flush IV PUSH 20 ml PRN PRN Administration after blood draws Radiology Results: ITS Impressions Chest/Abdomen/Pelvis CTA 04/22/24 18:10 IMPRESSION: Perforated viscus with a large amount of free air and fluid, with mural thickening in the distal stomach and multiple punctate foci of extraluminal air in this area for which site of perforation is suspected. Renal Ultrasound 04/24/24 11:58 IMPRESSION: Simple cyst in the left kidney upper pole. Other appearances are unremarkable. Lower Extremity CTA 05/02/24 16:36 IMPRESSION: 1. Scattered atherosclerotic plaque in the arteries of the left lower limb as detailed above without a discrete hemodynamic significant stenosis. Runoff below the ankle in the left posterior tibial artery this supplies the foot. Atretic distal peroneal and anterior tibial arteries with intraluminal contrast becoming indiscernible at the level of the ankle and with no appreciable contrast in the dorsalis pedis artery. Chest/Abdomen/Pelvis CT 05/08/24 10:43 IMPRESSION: Findings suggesting air and possible fluid extending from the lumen of the antrum of the stomach, with a small anterior collection, as detailed above. Repeat evaluation with Gastrografin via the gastrostomy would provide additional information. Upper GI Series 05/09/24 09:31 IMPRESSION: 1. Ulcer of the gastric antrum with contained extraluminal contrast similar to 04/28/2024. The extraluminal contrast distribution is worse than typically seen after Clarence patch repair. Abdomen CT 05/09/24 15:27 IMPRESSION: Redemonstration of a tract extending from the posterior superior margin of the antrum of the stomach only partially filled with oral contrast, perhaps demonstrating early healing. Chest X-Ray 05/14/24 14:23 IMPRESSION: Subsegmental bibasilar atelectasis/consolidation. Mild pulmonary congestion/interstitial edema. Small bilateral pleural effusions Abdomen/Pelvis CT 05/17/24 09:03 Impression: Persistent wall thickening of the gastric antrum/duodenum with surrounding haziness, compatible postoperative change. There is persistent irregular tract with small amount of fluid and external air extending from the gastric antrum superiorly/anteriorly, which could reflect abscess or persistent contained perforation. No extraluminal contrast seen, and no oral contrast seen within this collection. Intramuscular hematoma of the right iliopsoas and psoas major muscles, with additional irregular hematoma extending to the posterior right retroperitoneum. Bilateral fat-containing inguinal hernias. Small bilateral pleural effusions. Labs Labs: Laboratory Results - last 24 hr 05/17/24 05/17/24 05:05 10:19 WBC 16.9 H RBC 2.90 L Hgb 8.7 L Hct 28.0 L MCV 96.6 MCH 30.0 MCHC 31.1 L RDW 16.0 H Plt Count 135 L MPV 13.9 H Immature Gran % (Auto) Not Reportable Neut % (Auto) Not Reportable Lymph % (Auto) Not Reportable Nelson % (Auto) Not Reportable Eos % (Auto) Not Reportable Baso % (Auto) Not Reportable Lymph # (Auto) Not Reportable Nelson # (Auto) Not Reportable Eos # (Auto) Not Reportable Baso # (Auto) Not Reportable Abs Immat Gran (auto) Not Reportable Absolute Neuts (auto) Not Reportable Absolute Nucleated RBC Not Reportable Neutrophils % (Manual) 90 H Band Neutrophils % Not Reportable Lymphocytes % (Manual) 3 L Monocytes % (Manual) 6 Eosinophils % (Manual) 1 Nucleated RBC % Not Reportable Abs Lymphs (Manual) 0.50 L Abs Monocytes (Manual) 1.01 H Absolute Eos (Manual) 0.16 Platelet Estimate Decreased % Immature Plt Fraction 8.3 Anisocytosis 1+ Schistocytes None seen PT 15.6 H INR 1.2 APTT 43.1 H Sodium 136 L Potassium 4.3 Chloride 107 Carbon Dioxide 24 Anion Gap 5 BUN 78 H D Creatinine 2.88 H Estim Creat Clear Calc 28 Estimated GFR 21 L Glucose 107 Calcium 8.0 L Total Bilirubin 0.8 AST 40 ALT 34 Alkaline Phosphatase 145 H Total Protein 6.0 L Albumin 2.6 L
--- NOTE | 2024-05-17 13:54 | PCNFU ---
Nutrition Follow-Up Complete: Inadequate oral intake related to altered GI function as evidenced by need for full TPN Goal: Meet estimated nutrition needs Patient has limited progress towards goal. We will continue current goal. Pt current nutrition is Low Fiber diet with diet supplements and tube feedings of Nepro bolus 220 ml q 12 hours. Last recorded weight is 133.2 kg, 123 kg on admit. Fluid overload Bowel Motility: Last reported BM 05/16 Labs Reviewed: BUN 78, Cr 2.8, GFR 21, Na 136, PO4 5.3 Meds Noted: Reglan, Lipitor, Protonix. Skin: WNL Additional Notes: CT scan today. Spoke with nursing and Huong from surgery. Discussed poor appetite patient has been having. Discussions regarding appetite stimulant. Tube feedings had been discontinued on 05/13 and restarted on 05/15. Discussed increasing tube feedings to TID after patient eats a meal. New orders for Bolus tube feeding of Nepro 220 ml TID providing 1188 kcal/53gm protein/480 ml water. Flush 50 ml before and 50 ml after feedings. Tube feedings meeting 55% kcal needs at 17 kcal/kg and 56% protein needs at 0.8-1.0 gm/kg. Spoke with family today, encouraged PO intake. Will monitor for further nutritional interventions. Monitoring TF tolerance, GI function, plan of care, weights, labs, orders Follow up Thursday/Thursday
[2024-05-17 14:00] VITALS: BP 150/74; PULSE 95; RESP 16; TEMP 36.7; O2SAT 99
[2024-05-17 15:28] LABS: Add Urine Microscopic? YES; Appearance Urine Cloudy (Clear); Bacteria Urine None Seen /hpf; Bilirubin Urine Negative (Negative); Blood Urine Non-Hemolyzed Trace (Negative); Color Urine Yellow (Yellow); Glucose Urine UA Negative (Negative); Ketones Urine Negative (Negative); Leukocyte Esterase Ur Negative LEU/UL (Negative); Mucus Urine Present /lpf; Need Manual Microscopic Reviewed; Nitrate Urine Negative (Negative); Protein Urine 1+ mg/dL (Negative); RBC Urine 0-2 /hpf (0-2); Specific Grav Ur 1.014 (1.001-1.035); Squamous Epithelial Cell Urine Occasional /hpf (Few); WBC Urine 0-5 /hpf (0-3)
[2024-05-17] MEDS: droNABinol (*CRX) 2.5 MG CAPSULE PO (16:07)
[2024-05-17] MEDS: ACETAMINOPHEN ELIXIR 325 MG/10.15 ML UDC 650 MG PO ×2 (17:54→23:07)
[2024-05-17 20:00] VITALS: PULSE 95; RESP 16; O2SAT 99
[2024-05-17 22:00] VITALS: BP 151/63; PULSE 99; RESP 18; TEMP 37.4; O2SAT 100
[2024-05-17] MEDS: LORazepam (*CRX) 0.5 MG TABLET PO (23:07)
[2024-05-18 06:00] VITALS: BP 148/84; PULSE 103; RESP 18; TEMP 37.8; O2SAT 96
[2024-05-18] MEDS: METOCLOPRAMIDE HCL INJ 10 MG/2 ML VIAL IV PUSH ×3 (06:17→17:30)
[2024-05-18] MEDS: MORPHINE SULFATE (*CRX) 4 MG/ML INJ IV PUSH ×3 (06:17→16:09)
[2024-05-18] MEDS: CENTRAL LINE FLUSH 20 ML IV PUSH (06:18)
[2024-05-18] MEDS: CENTRAL LINE FLUSH 10 ML IV PUSH ×3 (06:18→22:11)
[2024-05-18 06:28] LABS: Hematocrit 27.1 % (42.0-52.0); Hemoglobin 8.7 g/dL (14.0-18.0); Mean Corpuscular HGB Conc 32.1 g/dl (32-36); Mean Corpuscular Hemoglobin 30.3 pg (26-34); Mean Corpuscular Volume 94.4 fl (80-100); Mean Platelet Volume 13.3 fl (7.4-10.4); Platelet Count Result 165 k/mm3 (150-375); Red Blood Count 2.87 M/mm3 (4.6-6.20); Red Cell Distribution Width 15.9 % (11.5-14.5)
[2024-05-18 06:40] LABS: Alanine Aminotransferase 33 U/L (6-50); Albumin Level 2.6 g/dL (3.5-5.1); Alkaline Phosphatase 165 U/L (38-126); Anion Gap 7 mmol/L (4-12); Aspartate Amino Transferase 35 U/L (17-59); Bilirubin,Total 0.9 mg/dL (0.2-1.3); Blood Urea Nitrogen 72 mg/dL (9-20); Carbon Dioxide 23 mmol/L (22-30); Chloride 106 mmol/L (98-107); Estimated CRCL calculation 33 ml/min; Estimated Glomerular Filt Rate 26; Glucose 119 mg/dL (65-110); Potassium 4.3 mmol/L (3.4-5.0); Sodium 136 mmol/L (137-145)
--- NOTE | 2024-05-18 06:59 | P.PNIM_ITS ---
Progress Note: A&P Assessment and Plan (1) Sepsis: Code(s): A41.9 - Sepsis, unspecified organism Status: Resolved Assessment and Plan: Meets SIRS criteria: Tachycardia, Febrile, Leukocytosis - lactic acid: 0.7 - suspected source: Nasal MRSA - blood cultures drawn on 05/18 - UA: Cloudy, 1+ protein, otherwise unremarkable - Urine culture pending - CXR: Left basilar atelectasis versus pneumonia. Clinical correlation advised. - IV Vancomycin, consult pharmacy to dose, and Cefepime 2 gram IV q12H - P.r.n. Tylenol, Zofran, and melatonin (2) MRSA (methicillin resistant staph aureus) culture positive: Code(s): Z22.322 - Carrier or suspected carrier of Methicillin resistant Staphylococcus aureus Status: Acute Assessment and Plan: - Nasal MRSA positive - Started on IV Vanc for sepsis, continue - Initiate Mupirocin ointment (3) Hematoma: Code(s): T14.8XXA - Other injury of unspecified body region, initial encounter Status: Acute Assessment and Plan: * CT abdomen pelvis on 05/17/2024 shows: Intramuscular hematoma of the right iliopsoas and psoas major muscles, with additional irregular hematoma extending to the posterior right retroperitoneum. * Spoke with surgery likely noninfective * Lidocaine patch * Lovenox on hold, no recent found for therapeutic Lovenox, when patient was placed back on Lovenox likely benefit from the 40 mg (4) Pleural effusion: Code(s): J90 - Pleural effusion, not elsewhere classified Status: Acute Assessment and Plan: * Seen on CT * Chest x-ray dated compare * Likely due to 3rd spacing (5) Perforated abdominal viscus: Code(s): R19.8 - Other specified symptoms and signs involving the digestive system and abdomen Status: Acute Assessment and Plan: * Septic shock in setting of peritonitis with perforated gastric ulcer: * Shock has resolved * Status post exploratory laparotomy with repair of antral gastric ulcer with omental Clarence patch, open gastrostomy tube * CT of the abdomen: Redemonstration of a tract extending from the posterior superior margin of the antrum of the stomach only partially filled with oral contrast, perhaps demonstrating early healing. * Surgery is following, added Micafungin * Diet advanced to soft diet * CT abd/pelvis showed no intraabdominal abscess or new fluid collection, UA (-) for UTI. (6) Pneumonia: Code(s): J18.9 - Pneumonia, unspecified organism Status: Acute Assessment and Plan: Improving * Encourage IS use * Cornet therapy * nebs PRN * 05/13 finished antibiotics * Currently on room air (7) Malnutrition following gastrointestinal surgery: Code(s): K91.2 - Postsurgical malabsorption, not elsewhere classified Status: Acute Assessment and Plan: * Passed swallow study. * Patient advanced to soft diet today per General surgery recommendation * Continue to encourage po intake * Bolus tube feeding via G tube * add reglan and Marinol (8) Acute kidney injury superimposed on stage 3b chronic kidney disease: Code(s): N17.9 - Acute kidney failure, unspecified; N18.32 - Chronic kidney disease, stage 3b Status: Acute Assessment and Plan: * baseline creatinine most likely around 1.5 * Nephrology following * Renal ultrasound was unremarkable for any acute issues. * Continue diuresis per Nephrology recommendations --Albumin/Lasix * (9) Anemia: Code(s): D64.9 - Anemia, unspecified Status: Acute Assessment and Plan: Iron deficiency anemia on acute loss Stable * Trend CBC. * transfuse if hgb <7.0, or symptomatic * Iron replacement (10) HTN (hypertension): Code(s): I10 - Essential (primary) hypertension Status: Acute Assessment and Plan: Controlled * Continue Clonidine patch and Hydralazine PRN. * Trend BP (11) Generalized weakness: Code(s): R53.1 - Weakness Status: Acute Assessment and Plan: * PT/OT-maxi move use for transfer * Patient will likely need placement (12) Hypokalemia: Code(s): E87.6 - Hypokalemia Status: Acute Assessment and Plan: Improved * Trend labs * Replace as indicated (13) Hypernatremia: Code(s): E87.0 - Hyperosmolality and hypernatremia Status: Acute Assessment and Plan: Resolved Daily BMP Time Spent With Patient Time: 35 Subjective Date/time seen: 05/18/24 06:59 Interval history: Follow-up for acute kidney injury/acute renal failure on chronic kidney disease. 05/18/2024 Patient is sitting comfortably in bed at time of examination. At this time, denies any CP, SOB, n/v, or abdominal pain. Does c/o of lingering non-productive cough and chest congestion. Encouraged to continue use of incentive spirometer. Vitals as of 0600 on 05/18 indicate tachycardia of 103 HR and a fever of 100.1. This, along with continued Leukocytosis suggests sepsis. Blood cultures, urine culture, and lactic acid, have been ordered and patient started on empiric Vancomycin and Cefepime. Nasal MRSA also resulted positive. Will continue Vanc and will order Mupirocin nasal ointment. Review of Systems Review of Systems: 12 systems were reviewed and are negativ e except for as per HPI. All systems reviewed & are unremarkable except as noted in HPI and below Exam Narrative: General: Ill appearing, appears stated age. HEENT: normocephalic, atraumatic. Mucous membranes moist. EOMI, PERRLA, bilateral sclera anicteric, no conjunctival injection. Neck supple without JVD, lymphadenopathy, or bruit. Respiratory: clear to ascultation bilaterally. No rales/rhonic/wheezes. Cardiovascular: Regular rate and rhythm, normal S1-S2 upon ascultation. No murmurs, rubs, or clicks. PMI is nondisplaced, capillary refill less than 3 s econd. Abdomen: Soft, round, no pulsatile masses, nondistended and nontender. No rebound, no guarding. No CVA tenderness, no hepatosplenomegaly. Bowel sounds present to all four quadrants. No high pitch or tinkling sounds, resonant to percussion. Extremities: 1+ edema to both LE. No cyanosis, clubbing present. Pulses are palpable 2/2. Active ROM to all four extremities. Neuro: Alert and orientated x 4. PERRLA. Cranial nerves 2-12 intact without focal deficit. Skin: Warm, dry, and intact, without rash, erythema, or lesion. Psych: pleasant, cooperative, normal speech, normal affect, no hallucinations, no dysarthia Skin: PEG tube, ELSA drain x2 in place, midline incision well approximated without redness or drainage. Const: General: comfortable, no acute distress and uncomfortable Other: Acutely ill-appearing, obese HENMT: Other: Mucous membranes are dry, head is normocephalic atraumatic, few missing teeth, bridge in the lower jaw Eyes: Other: Pupils are equal and reactive, no scleral icterus Neck: Other: No JVD, trachea midline Resp: Effort & Inspection: normal respiratory effort Auscultation: clear to auscultation bilaterally Other: Cardio: Rate: regular rate Rhythm: regular rhythm GI: Auscultation: normal bowel sounds Other: Gastrostomy tube in place with dry gauze dressing and skin around the G-tube without erythema or drainage. Incision dry with steri strips intact, no erythema. Slightly distended. Skin: Other: Generally cold to touch, 2nd cap refill, fingers and toes are cyanotic Neuro: Speech: normal speech Other: Patient is sedated, pupils are reactive, equal Extrem: General: pedal edema bilaterally 2+ Other: 1+PP bilateral feet are warm. Psych: Mental Status: mental status grossly normal Affect: normal affect Objective Data Vital Signs Vital Signs: Vital Signs - 24 hr 05/17/24 08:00 05/17/24 09:47 05/17/24 09:47 Temperature Pulse Rate 88 Respiratory Rate 20 Blood Pressure Pulse Oximetry 100 Oxygen Delivery Room Air Room Air Fraction of Inspired Oxygen 05/17/24 14:00 05/17/24 20:00 05/17/24 22:00 Temperature 98.1 F 99.4 F Pulse Rate 95 95 99 Respiratory Rate 16 16 18 Blood Pressure 150/74 H 151/63 H Pulse Oximetry 99 99 100 Oxygen Delivery Room Air Fraction of Inspired Oxygen 21 05/18/24 06:00 Temperature 100.1 F H Pulse Rate 103 H Respiratory Rate 18 Blood Pressure 148/84 H Pulse Oximetry 96 Oxygen Delivery Fraction of Inspired Oxygen Intake/Output Intake/Output: Intake & Output 05/15/24 05/16/24 05/17/24 05/18/24 23:59 23:59 23:59 23:59 Intake Total 1437 1777 900 Output Total 4405 1955 6546 [id number] [phone] Meds/Results Medications: Active Medications Generic Name Dose Route Start Last Admin Trade Name Freq PRN Reason Stop Dose Admin Acetaminophen 650 mg 04/26/24 22:19 04/26/24 22:57 Acetaminophen 650 Mg Suppository RECTAL 650 mg Q6H PRN Administration Mild Pain (1-3) or Fever Acetaminophen 650 mg 05/05/24 10:27 05/17/24 23:07 Acetaminophen Elixir 325 Mg/10.15 Ml Udc PO 650 mg Q6H PRN Administration Mild Pain (1-3) or Fever Artificial Tears 1 drop 04/27/24 08:37 Artificial Tears Ophth Soln 15 Ml Bottle EACH EYE QID PRN Dry Eye(s) Atorvastatin Calcium 20 mg 04/30/24 09:00 Atorvastatin 20 Mg Tablet BY MOUTH DAILY ROSY Benzocaine 1 lozenge 05/15/24 15:35 05/15/24 20:27 Benzocaine/Menthol (*Bkc) 18 Ea Lozenge PO 1 lozenge PRN PRN Administration Sore Throat Clonidine HCl 1 patch 05/01/24 09:00 05/15/24 08:47 Clonidine 0.1 Mg/24 Hr Patch TRANSDERM 1 patch WEEKLY ROSY Administration Dextrose 12.5 gm 04/22/24 23:06 Dextrose 50% 25 Gm/50 Ml Syringe IV PUSH PRN PRN Hypoglycemia Protocol Dronabinol 2.5 mg 05/17/24 16:30 05/17/24 16:07 Dronabinol (*Crx) 2.5 Mg Capsule PO 2.5 mg DAILY@1630 ROSY Administration Enoxaparin Sodium 120 mg 05/09/24 06:00 05/17/24 05:05 Enoxaparin 120 Mg/0.8 Ml Syringe SUB-Q 120 mg Q24H ROSY Administration Epoetin Olu-epbx 10,000 units 05/14/24 11:05 05/17/24 08:00 Epoetin Olu-Epbx 10,000 Units/Ml Vial SUB-Q 10,000 units TUTHSA@09 ROSY Administration Glucagon 1 mg 04/22/24 23:06 Glucagon For Inj 1 Mg Vial IM PRN PRN Hypoglycemia Protocol Glucose 15 gm 04/22/24 23:06 Glucose Oral Gel 15 Gm Of Glucse In 37.5 Gm Tube PO PRN PRN Hypoglycemia Protocol Guaifenesin/Dextromethorphan 10 ml 05/15/24 10:07 05/16/24 09:52 Guaifenesin/Dextromethorphan 10 Ml Udc PO 10 ml Q4H PRN Administration Cough Hydralazine HCl 10 mg 04/25/24 08:00 05/03/24 21:47 Hydralazine Hcl 20 Mg/Ml Vial IV PUSH 10 mg Q4H PRN Administration Blood Pressure - High Dextrose 1,000 mls @ 100 mls/hr 04/22/24 23:06 Dextrose 5% 1,000 Ml IVPB PRN PRN Hypoglycemia Protocol Ipratropium Speed 0.5 mg 05/04/24 09:32 05/17/24 10:11 Ipratropium Br 0.02% Inh Soln 0.5 Mg/2.5 Ml Vial INHALATION 0.5 mg Q6HRT PRN Administration Shortness Of Breath Levalbuterol HCl 0.63 mg 05/04/24 09:32 05/17/24 10:11 Levalbuterol Neb 1.25 Mg/3 Ml INHALATION 0.63 mg Q6HRT PRN Administration Shortness Of Breath Lidocaine 1 patch 04/27/24 16:35 05/17/24 08:00 Lidocaine 5% Patch TRANSDERM 05/18/24 08:59 1 patch DAILY ROSY Administration Lidocaine 1 patch 05/18/24 09:00 Lidocaine 5% Patch TRANSDERM DAILY ROSY Lorazepam 0.5 mg 05/16/24 13:48 05/17/24 23:07 Lorazepam (*Crx) 0.5 Mg Tablet PO 0.5 mg Q6H PRN Administration Anxiety Metoclopramide HCl 10 mg 05/16/24 18:00 05/18/24 06:17 Metoclopramide Hcl Inj 10 Mg/2 Ml Vial IV PUSH 10 mg Q6HR ROSY Administration Morphine Sulfate 4 mg 04/22/24 22:02 05/18/24 06:17 Morphine Sulfate (*Crx) 4 Mg/Ml Inj IV PUSH 4 mg Q3H PRN Administration Pain Rated 7-10 Ondansetron HCl 4 mg 05/13/24 11:22 05/15/24 12:53 Ondansetron Inj 4 Mg/2 Ml Vial IV PUSH 4 mg Q6H PRN Administration Nausea And Vomiting Pantoprazole Sodium 40 mg 04/26/24 21:00 05/17/24 21:05 Pantoprazole Sodium Iv 40 Mg Vial IV PUSH 40 mg Q12HR ROSY Administration Sodium Chloride 10 ml 04/23/24 14:00 05/18/24 06:18 Central Line Flush IV PUSH 10 ml Q8HR ROSY Administration Sodium Chloride 20 ml 04/23/24 10:16 05/08/24 06:10 Central Line Flush IV PUSH 20 ml PRN PRN Administration after blood draws Sodium Chloride 10 ml 05/04/24 14:15 Central Line Flush IV PUSH PRN PRN with TPN bag changes Sodium Chloride 20 ml 05/04/24 14:15 05/18/24 06:18 Central Line Flush IV PUSH 20 ml PRN PRN Administration after blood draws Radiology Results: ITS Impressions Chest/Abdomen/Pelvis CTA 04/22/24 18:10 IMPRESSION: Perforated viscus with a large amount of free air and fluid, with mural thickening in the distal stomach and multiple punctate foci of extraluminal air in this area for which site of perforation is suspected. Renal Ultrasound 04/24/24 11:58 IMPRESSION: Simple cyst in the left kidney upper pole. Other appearances are unremarkable. Lower Extremity CTA 05/02/24 16:36 IMPRESSION: 1. Scattered atherosclerotic plaque in the arteries of the left lower limb as detailed above without a discrete hemodynamic significant stenosis. Runoff below the ankle in the left posterior tibial artery this supplies the foot. Atretic distal peroneal and anterior tibial arteries with intraluminal contrast becoming indiscernible at the level of the ankle and with no appreciable contrast in the dorsalis pedis artery. Chest/Abdomen/Pelvis CT 05/08/24 10:43 IMPRESSION: Findings suggesting air and possible fluid extending from the lumen of the a ntrum of the stomach, with a small anterior collection, as detailed above. Repeat evaluation with Gastrografin via the gastrostomy would provide additional information. Upper GI Series 05/09/24 09:31 IMPRESSION: 1. Ulcer of the gastric antrum with contained extraluminal contrast similar to 04/28/2024. The extraluminal contrast distribution is worse than typically seen after Clarence patch repair. Abdomen CT 05/09/24 15:27 IMPRESSION: Redemonstration of a tract extending from the posterior superior margin of the antrum of the stomach only partially filled with oral contrast, perhaps demonstrating early healing. Abdomen/Pelvis CT 05/17/24 09:03 Impression: Persistent wall thickening of the gastric antrum/duodenum with surrounding haziness, compatible postoperative change. There is persistent irregular tract with small amount of fluid and external air extending from the gastric antrum superiorly/anteriorly, which could reflect abscess or persistent contained perforation. No extraluminal contrast seen, and no oral contrast seen within this collection. Intramuscular hematoma of the right iliopsoas and psoas major muscles, with additional irregular hematoma extending to the posterior right retroperitoneum. Bilateral fat-containing inguinal hernias. Small bilateral pleural effusions. Chest X-Ray 05/17/24 14:51 IMPRESSION: Left basilar atelectasis versus pneumonia. Clinical correlation advised. Labs Labs: Laboratory Results - last 24 hr 05/17/24 05/17/24 05/17/24 05:05 10:19 14:50 WBC 16.9 H RBC 2.90 L Hgb 8.7 L Hct 28.0 L MCV 96.6 MCH 30.0 MCHC 31.1 L RDW 16.0 H Plt Count 135 L MPV 13.9 H Immature Gran % (Auto) Not Reportable Neut % (Auto) Not Reportable Lymph % (Auto) Not Reportable [place] % (Auto) Not Reportable Eos % (Auto) Not Reportable Baso % (Auto) Not Reportable Lymph # (Auto) Not Reportable [place] # (Auto) Not Reportable Eos # (Auto) Not Reportable Baso # (Auto) Not Reportable Abs Immat Gran (auto) Not Reportable Absolute Neuts (auto) Not Reportable Absolute Nucleated RBC Not Reportable Neutrophils % (Manual) 90 H Band Neutrophils % Not Reportable Lymphocytes % (Manual) 3 L Monocytes % (Manual) 6 Eosinophils % (Manual) 1 Nucleated RBC % Not Reportable Abs Lymphs (Manual) 0.50 L Abs Monocytes (Manual) 1.01 H Absolute Eos (Manual) 0.16 Platelet Estimate Decreased % Immature Plt Fraction 8.3 Anisocytosis 1+ Schistocytes None seen PT 15.6 H INR 1.2 APTT 43.1 H Sodium Potassium Chloride Carbon Dioxide Anion Gap BUN Creatinine Estim Creat Clear Calc Estimated GFR Glucose Calcium Total Bilirubin AST ALT Alkaline Phosphatase Total Protein Albumin Urine Color Yellow Urine Appearance Cloudy H Urine pH 5.0 Ur Specific [place] 1.014 Urine Protein 1+ H Urine Glucose (UA) Negative Urine Ketones Negative Ur Blood (Man) Non-hemolyzed trace Urine Nitrate Negative Urine Bilirubin Negative Urine Urobilinogen 1.0 Add Ur Microanalysis Reviewed Leukocyte Esterase Rfl Negative Urine RBC 0-2 Urine WBC 0-5 Ur Squamous Epith Cells Occasional Urine Bacteria None seen Urine Casts 6-10 Urine Mucus Present 05/18/24 06:17 WBC 29.0 H RBC 2.87 L Hgb 8.7 L Hct 27.1 L MCV 94.4 MCH 30.3 MCHC 32.1 RDW 15.9 H Plt Count 165 MPV 13.3 H Immature Gran % (Auto) Not Reportable Neut % (Auto) Not Reportable Lymph % (Auto) Not Reportable [place] % (Auto) Not Reportable Eos % (Auto) Not Reportable Baso % (Auto) Not Reportable Lymph # (Auto) Not Reportable [place] # (Auto) Not Reportable Eos # (Auto) Not Reportable Baso # (Auto) Not Reportable Abs Immat Gran (auto) Not Reportable Absolute Neuts (auto) Not Reportable Absolute Nucleated RBC Not Reportable Neutrophils % (Manual) Band Neutrophils % Lymphocytes % (Manual) Monocytes % (Manual) Eosinophils % (Manual) Nucleated RBC % Not Reportable Abs Lymphs (Manual) Abs Monocytes (Manual) Absolute Eos (Manual) Platelet Estimate % Immature Plt Fraction Anisocytosis Schistocytes PT INR APTT Sodium 136 L Potassium 4.3 Chloride 106 Carbon Dioxide 23 Anion Gap 7 BUN 72 H Creatinine 2.47 H Estim Creat Clear Calc 33 Estimated GFR 26 L Glucose 119 H Calcium 8.0 L Total Bilirubin 0.9 AST 35 ALT 33 Alkaline Phosphatase 165 H Total Protein 6.0 L Albumin 2.6 L Urine Color Urine Appearance Urine pH Ur Specific [place] Urine Protein Urine Glucose (UA) Urine Ketones Ur Blood (Man) Urine Nitrate Urine Bilirubin Urine Urobilinogen Add Ur Microanalysis Leukocyte Esterase Rfl Urine RBC Urine WBC Ur Squamous Epith Cells Urine Bacteria Urine Casts Urine Mucus Quality VTE Prophylaxis VTE prophylaxis: mechanical ordered and pharmacologic ordered
[2024-05-18 07:57] LABS: Total Cells Counted 100
[2024-05-18 07:58] LABS: Anisocytosis 1+; Band Neutrophils Percent 7 % (0-6); Eosinophils Absolute Manual 0.29 K/mm3 (0.02-0.50); Eosinophils Percent Manual 1 % (0-4); Lymphocytes Absolute Manual 1.45 K/mm3 (1.1-4.5); Lymphocytes Percent Manual 5 % (18-44); Monocytes Absolute Manual 0.29 K/mm3 (0.1-0.90); Monocytes Percent Manual 1 % (3-9); Neutrophils Absolute Manual 26.97 K/mm3 (1.3-6.7); Neutrophils Percent Manual 86 % (46-73); Platelet Estimate Adequate (Adequate); Schistocytes None Seen; Smudge Cells FEW
[2024-05-18 08:00] VITALS: PULSE 100; RESP 18; O2SAT 96
[2024-05-18] MEDS: SODIUM CHLORIDE 0.9% IV 1,000 ML 125 ML IV CONT ×2 (08:11→18:26)
[2024-05-18] MEDS: PANTOPRAZOLE SODIUM IV 40 MG VIAL IV PUSH ×2 (08:16→20:19)
[2024-05-18] MEDS: LIDOCAINE 5% PATCH 1 PATCH TRANSDERM (08:18)
[2024-05-18] MEDS: CEFEPIME 2 GM/NS 50 ML 2 GM/50 ML BAG IVPB ×2 (08:42→20:19)
[2024-05-18] MEDS: metroNIDAZOLE 500 MG/ISO 100ML 500 MG/100 ML BAG 100 MG IVPB ×2 (09:18→16:04)
[2024-05-18] MEDS: MICAFUNGIN SODIUM 100 MG in SODIUM CHLORIDE 0.9% IV 100 ML IVPB (09:19)
[2024-05-18 09:40] LABS: Lactic Acid Reflex 0.7 mmol/L (0.7-2.0)
--- NOTE | 2024-05-18 09:52 | PCOTNOTE ---
The patient treatment was not able to be completed. Patient agreeable and willing but unable to keep his eyes open. Will plan to continue treatment per plan of care.
[2024-05-18 09:59] LABS: MRSA (PCR) DETECTED (NOT DETECTE)
[2024-05-18] MEDS: VANCOMYCIN 1,250 MG/NS 250 ML 1,250 MG/250 ML BAG 166.67 MG IVPB ×2 (10:19→11:32)
--- NOTE | 2024-05-18 12:09 | PM.PNGS ---
Progress Note: A&P Assessment and Plan (1) Perforated gastric ulcer: Onset Date: 04/2024 Qualifiers: Gastric ulcer chronicity: acute Qualified Code(s): K25.1 - Acute gastric ulcer with perforation Code(s): K25.5 - Chronic or unspecified gastric ulcer with perforation Status: Acute Assessment and Plan: Status post repair with omental patch. WBC count up to 29,000 and low grade fever this morning. Source of his leukocytosis is not yet clear. CT of the abdomen and pelvis yesterday showed no intraabdominal abscess or new fluid collection. UA negative for UTI. CXR yesterday showed L basilar atelectasis vs pneumonia. Agree with starting empiric antibiotics and I will also add IV Micafungin. Blood cultures drawn. Will continue to monitor the output from the ELSA drain. Repeat labs again tomorrow. (2) Malnutrition following gastrointestinal surgery: Code(s): K91.2 - Postsurgical malabsorption, not elsewhere classified Status: Acute Assessment and Plan: Poor p.o. intake with poor appetite. Continue Reglan and Marinol. Encouraged increasing oral intake. Will continue TID bolus tube feedings following meals and supplements until his intake improves. (3) Acute kidney injury superimposed on stage 3b chronic kidney disease: Code(s): N17.9 - Acute kidney failure, unspecified; N18.32 - Chronic kidney disease, stage 3b Status: Acute Assessment and Plan: Creatinine continues to improve. Nephrology is following and management as per Nephrology. (4) Hematoma: Code(s): T14.8XXA - Other injury of unspecified body region, initial encounter Status: Acute Assessment and Plan: CT yesterday showed intramuscular iliopsoas hematoma. Hgb remains stable. Continue to hold Lovenox and monitor. CT did not show an abscess or signs of this being infected. We do not feel that this is related to his leukocytosis. Plan I have discussed the patient's case and plan of care with Dr. Moreno. Subjective Subjective Date/Time Seen: 05/18/24 12:09 Post Op day: 26 Interval history: Patient slept well last night. No new complaints. Still complaining of posterior neck pain. Lidocaine patch helps. No nausea or vomiting. Still poor appetite, he ate slightly more, but still inadequate (<10% of his meal but had his Ensure with his tray this morning for breakfast). Denies abdominal pain, leg pain, shortness of breath, cough, chest pain, or any other complaints. Exam Const: General: comfortable and no acute distress Orientation/consciousness: patient oriented x3 GI: Inspection: Abdominal wall edema bilateral, non-distended and incision (Healing well, no erythema, Steri-Strips intact) GI Palp: Yes Soft to palpation, No Tenderness to palpation present (GI), No Guarding due to palpation present (GI) and No Rebound tenderness present Auscultation: normal bowel sounds Other: RUQ gauze dressing (from ELSA drain removed) in place with minimal serous drainage. Left upper quadrant ELSA drain with lagos purulent drainage. Gastrostomy tube clamped with skin around tube without erythema and scant yellow drainage. Urinary Catheter: Urinary Catheter: patent and draining and urine clear (Dark yellow) Extrem: General: no calf tenderness bilaterally and edema (bilateral lower extremity 3+ pitting edema) Other: Bilateral feet warm with normal color. Able to wiggle toes equally bilaterally. Objective Data Vital Signs Vital Signs: Vital Signs - 24 hr 05/17/24 14:00 05/17/24 20:00 05/17/24 22:00 Temperature 98.1 F 99.4 F Pulse Rate 95 95 99 Respiratory Rate 16 16 18 Blood Pressure 150/74 H 151/63 H Pulse Oximetry 99 99 100 Oxygen Delivery Room Air Fraction of Inspired Oxygen 21 05/18/24 06:00 Temperature 100.1 F H Pulse Rate 103 H Respiratory Rate 18 Blood Pressure 148/84 H Pulse Oximetry 96 Oxygen Delivery Fraction of Inspired Oxygen Intake/Output Intake/Output: Intake & Output 05/15/24 05/16/24 05/17/24 05/18/24 23:59 23:59 23:59 23:59 Intake Total 1437 1777 900 414.6 Output Total 4405 1955 2350 2700 [facility] -[id number] -[id number] -[id number] -2285.4 Meds/Results Medications: Active Medications Generic Name Dose Route Start Last Admin Trade Name Freq PRN Reason Stop Dose Admin Acetaminophen 650 mg 04/26/24 22:19 04/26/24 22:57 Acetaminophen 650 Mg Suppository RECTAL 650 mg Q6H PRN Administration Mild Pain (1-3) or Fever Acetaminophen 650 mg 05/05/24 10:27 05/17/24 23:07 Acetaminophen Elixir 325 Mg/10.15 Ml Udc PO 650 mg Q6H PRN Administration Mild Pain (1-3) or Fever Artificial Tears 1 drop 04/27/24 08:37 Artificial Tears Ophth Soln 15 Ml Bottle EACH EYE QID PRN Dry Eye(s) Atorvastatin Calcium 20 mg 04/30/24 09:00 Atorvastatin 20 Mg Tablet BY MOUTH DAILY ROSY Benzocaine 1 lozenge 05/15/24 15:35 05/15/24 20:27 Benzocaine/Menthol (*Bkc) 18 Ea Lozenge PO 1 lozenge PRN PRN Administration Sore Throat Clonidine HCl 1 patch 05/01/24 09:00 05/15/24 08:47 Clonidine 0.1 Mg/24 Hr Patch TRANSDERM 1 patch WEEKLY ROSY Administration Dextrose 12.5 gm 04/22/24 23:06 Dextrose 50% 25 Gm/50 Ml Syringe IV PUSH PRN PRN Hypoglycemia Protocol Dronabinol 2.5 mg 05/17/24 16:30 05/17/24 16:07 Dronabinol (*Crx) 2.5 Mg Capsule PO 2.5 mg DAILY@1630 ROSY Administration Enoxaparin Sodium 120 mg 05/09/24 06:00 05/17/24 05:05 Enoxaparin 120 Mg/0.8 Ml Syringe SUB-Q 120 mg Q24H ROSY Administration Epoetin Olu-epbx 10,000 units 05/14/24 11:05 05/17/24 08:00 Epoetin Olu-Epbx 10,000 Units/Ml Vial SUB-Q 10,000 units TUTHSA@09 ROSY Administration Glucagon 1 mg 04/22/24 23:06 Glucagon For Inj 1 Mg Vial IM PRN PRN Hypoglycemia Protocol Glucose 15 gm 04/22/24 23:06 Glucose Oral Gel 15 Gm Of Glucse In 37.5 Gm Tube PO PRN PRN Hypoglycemia Protocol Guaifenesin/Dextromethorphan 10 ml 05/15/24 10:07 05/16/24 09:52 Guaifenesin/Dextromethorphan 10 Ml Udc PO 10 ml Q4H PRN Administration Cough Hydralazine HCl 10 mg 04/25/24 08:00 05/03/24 21:47 Hydralazine Hcl 20 Mg/Ml Vial IV PUSH 10 mg Q4H PRN Administration Blood Pressure - High Dextrose 1,000 mls @ 100 mls/hr 04/22/24 23:06 Dextrose 5% 1,000 Ml IVPB PRN PRN Hypoglycemia Protocol Sodium Chloride 1,000 mls @ 125 mls/hr 05/18/24 07:55 05/18/24 10:20 Normal Saline Iv IV CONT 125 mls/hr .Q8H ROSY Infusion Cefepime HCl 2 gm in 50 mls @ 100 mls/hr 05/18/24 09:00 05/18/24 09:12 Maxipime 2 Gm/Ns 50 Ml IVPB Infused Q12HR ROSY Infusion Vancomycin HCl 1,250 mg in 250 mls @ 166.667 mls/hr 05/18/24 11:30 05/18/24 11:32 Vancomycin 1,250 Mg/Ns 250 Ml IVPB 05/18/24 12:59 166.67 mls/hr ONCE ONE Administration Vancomycin HCl 1,500 mg in 500 mls @ 250 mls/hr 05/19/24 22:00 Vancomycin 1,500 Mg/Ns 500 Ml IVPB Q36H ROSY Metronidazole 500 mg in 100 mls @ 100 mls/hr 05/18/24 09:00 05/18/24 10:20 Flagyl 500 Mg/Iso Soln 100 Ml IVPB Infused Q8H ROSY Infusion Micafungin Sodium 100 mg/ 100 mls @ 100 mls/hr 05/18/24 09:00 05/18/24 10:20 Sodium Chloride IVPB Infused DAILY ROSY Infusion Ipratropium [place] 0.5 mg 05/04/24 09:32 05/17/24 10:11 Ipratropium Br 0.02% Inh Soln 0.5 Mg/2.5 Ml Vial INHALATION 0.5 mg Q6HRT PRN Administration Shortness Of Breath Levalbuterol HCl 0.63 mg 05/04/24 09:32 05/17/24 10:11 Levalbuterol Neb 1.25 Mg/3 Ml INHALATION 0.63 mg Q6HRT PRN Administration Shortness Of Breath Lidocaine 1 patch 05/18/24 09:00 05/18/24 08:18 Lidocaine 5% Patch TRANSDERM 1 patch DAILY ROSY Administration Lorazepam 0.5 mg 05/16/24 13:48 05/17/24 23:07 Lorazepam (*Crx) 0.5 Mg Tablet PO 0.5 mg Q6H PRN Administration Anxiety Metoclopramide HCl 10 mg 05/16/24 18:00 05/18/24 11:31 Metoclopramide Hcl Inj 10 Mg/2 Ml Vial IV PUSH 10 mg Q6HR ROSY Administration Morphine Sulfate 4 mg 04/22/24 22:02 05/18/24 11:31 Morphine Sulfate (*Crx) 4 Mg/Ml Inj IV PUSH 4 mg Q3H PRN Administration Pain Rated 7-10 Ondansetron HCl 4 mg 05/13/24 11:22 05/15/24 12:53 Ondansetron Inj 4 Mg/2 Ml Vial IV PUSH 4 mg Q6H PRN Administration Nausea And Vomiting Pantoprazole Sodium 40 mg 04/26/24 21:00 05/18/24 08:16 Pantoprazole Sodium Iv 40 Mg Vial IV PUSH 40 mg Q12HR ROSY Administration Sodium Chloride 10 ml 04/23/24 14:00 05/18/24 06:18 Central Line Flush IV PUSH 10 ml Q8HR ROSY Administration Sodium Chloride 20 ml 04/23/24 10:16 05/08/24 06:10 Central Line Flush IV PUSH 20 ml PRN PRN Administration after blood draws Sodium Chloride 10 ml 05/04/24 14:15 Central Line Flush IV PUSH PRN PRN with TPN bag changes Sodium Chloride 20 ml 05/04/24 14:15 05/18/24 06:18 Central Line Flush IV PUSH 20 ml PRN PRN Administration after blood draws Radiology Results: ITS Impressions Chest/Abdomen/Pelvis CTA 04/22/24 18:10 IMPRESSION: Perforated viscus with a large amount of free air and fluid, with mural thickening in the distal stomach and multiple punctate foci of extraluminal air in this area for which site of perforation is suspected. Renal Ultrasound 04/24/24 11:58 IMPRESSION: Simple cyst in the left kidney upper pole. Other appearances are unremarkable. Lower Extremity CTA 05/02/24 16:36 IMPRESSION: 1. Scattered atherosclerotic plaque in the arteries of the left lower limb as detailed above without a discrete hemodynamic significant stenosis. Runoff below the ankle in the left posterior tibial artery this supplies the foot. Atretic distal peroneal and anterior tibial arteries with intraluminal contrast becoming indiscernible at the level of the ankle and with no appreciable contrast in the dorsalis pedis artery. Chest/Abdomen/Pelvis CT 05/08/24 10:43 IMPRESSION: Findings suggesting air and possible fluid extending from the lumen of the antrum of the stomach, with a small anterior collection, as detailed above. Repeat evaluation with Gastrografin via the gastrostomy would provide additional information. Upper GI Series 05/09/24 09:31 IMPRESSION: 1. Ulcer of the gastric antrum with contained extraluminal contrast similar to 04/28/2024. The extraluminal contrast distribution is worse than typically seen after [place] patch repair. Abdomen CT 05/09/24 15:27 IMPRESSION: Redemonstration of a tract extending from the posterior superior margin of the antrum of the stomach only partially filled with oral contrast, perhaps demonstrating early healing. Abdomen/Pelvis CT 05/17/24 09:03 Impression: Persistent wall thickening of the gastric antrum/duodenum with surrounding haziness, compatible postoperative change. There is persistent irregular tract with small amount of fluid and external air extending from the gastric antrum superiorly/anteriorly, which could reflect abscess or persistent contained perforation. No extraluminal contrast seen, and no oral contrast seen within this collection. Intramuscular hematoma of the right iliopsoas and psoas major muscles, with additional irregular hematoma extending to the posterior right retroperitoneum. Bilateral fat-containing inguinal hernias. Small bilateral pleural effusions. Chest X-Ray 05/17/24 14:51 IMPRESSION: Left basilar atelectasis versus pneumonia. Clinical correlation advised. Labs Labs: Laboratory Results - last 24 hr 05/17/24 05/18/24 05/18/24 14:50 06:17 08:37 WBC 29.0 H RBC 2.87 L Hgb 8.7 L Hct 27.1 L MCV 94.4 MCH 30.3 MCHC 32.1 RDW 15.9 H Plt Count 165 MPV 13.3 H Immature Gran % (Auto) Not Reportable Neut % (Auto) Not Reportable Lymph % (Auto) Not Reportable [place] % (Auto) Not Reportable Eos % (Auto) Not Reportable Baso % (Auto) Not Reportable Lymph # (Auto) Not Reportable [place] # (Auto) Not Reportable Eos # (Auto) Not Reportable Baso # (Auto) Not Reportable Abs Immat Gran (auto) Not Reportable Absolute Neuts (auto) Not Reportable Absolute Nucleated RBC Not Reportable Total Counted 100 Neutrophils % (Manual) 86 H Band Neutrophils % 7 H Lymphocytes % (Manual) 5 L Monocytes % (Manual) 1 L Eosinophils % (Manual) 1 Nucleated RBC % Not Reportable Abs Neuts (Manual) 26.97 H Abs Lymphs (Manual) 1.45 Abs Monocytes (Manual) 0.29 Absolute Eos (Manual) 0.29 Smudge Cells Few Platelet Estimate Adequate Anisocytosis 1+ Schistocytes None seen Sodium 136 L Potassium 4.3 Chloride 106 Carbon Dioxide 23 Anion Gap 7 BUN 72 H Creatinine 2.47 H Estim Creat Clear Calc 33 Estimated GFR 26 L Glucose 119 H Lactic Acid Calcium 8.0 L Total Bilirubin 0.9 AST 35 ALT 33 Alkaline Phosphatase 165 H Total Protein 6.0 L Albumin 2.6 L Urine Color Yellow Urine Appearance Cloudy H Urine pH 5.0 Ur Specific [place] 1.014 Urine Protein 1+ H Urine Glucose (UA) Negative Urine Ketones Negative Ur Blood (Man) Non-hemolyzed trace Urine Nitrate Negative Urine Bilirubin Negative Urine Urobilinogen 1.0 Add Ur Microanalysis Reviewed Leukocyte Esterase Rfl Negative Urine RBC 0-2 Urine WBC 0-5 Ur Squamous Epith Cells Occasional Urine Bacteria None seen Urine Casts 6-10 Urine Mucus Present Nasal MRSA (PCR) Detected A* 05/18/24 08:56 WBC RBC Hgb Hct MCV MCH MCHC RDW Plt Count MPV Immature Gran % (Auto) Neut % (Auto) Lymph % (Auto) [place] % (Auto) Eos % (Auto) Baso % (Auto) Lymph # (Auto) [place] # (Auto) Eos # (Auto) Baso # (Auto) Abs Immat Gran (auto) Absolute Neuts (auto) Absolute Nucleated RBC Total Counted Neutrophils % (Manual) Band Neutrophils % Lymphocytes % (Manual) Monocytes % (Manual) Eosinophils % (Manual) Nucleated RBC % Abs Neuts (Manual) Abs Lymphs (Manual) Abs Monocytes (Manual) Absolute Eos (Manual) Smudge Cells Platelet Estimate Anisocytosis Schistocytes Sodium Potassium Chloride Carbon Dioxide Anion Gap BUN Creatinine Estim Creat Clear Calc Estimated GFR Glucose Lactic Acid 0.7 Calcium Total Bilirubin AST ALT Alkaline Phosphatase Total Protein Albumin Urine Color Urine Appearance Urine pH Ur Specific [place] Urine Protein Urine Glucose (UA) Urine Ketones Ur Blood (Man) Urine Nitrate Urine Bilirubin Urine Urobilinogen Add Ur Microanalysis Leukocyte Esterase Rfl Urine RBC Urine WBC Ur Squamous Epith Cells Urine Bacteria Urine Casts Urine Mucus Nasal MRSA (PCR)
--- NOTE | 2024-05-18 12:57 | P.PNNP_ITS ---
Progress Note: A&P Assessment and Plan (1) Acute kidney injury: Code(s): N17.9 - Acute kidney failure, unspecified Status: Acute Assessment and Plan: * better by recent labs * had improved to baseline (1.5mg/dl) on 04/30 * then georgette to the low 4ish range * suspect initial insult to be of multifactorial etiology: * NSAID use * hypotension/hemodynmic instability/shock * sepsis/infection * third spacing * evaluation to date: * CT shows normal kidneys * renal u/s with simple cyst x 1 o/w unremarkable. * urine electrolytes are prerenal * CPK mildly elevated (but not enough to affect kidneys) * urine eosinophils negative * mild proteinuria * another acute insult noted by recent labs (since 05/02): * possible due to pre-renal factors, infection (UTI +/- pneumonia versus gastric leak) * recent imaging noted - no evidence of gastric leak * repeat urine studies (on 05/08) suggestive of UTI and prerenal azotemia * despite prerenal urine electrolytes, he has evidence of volume overload * suspect related to 3rd spacing and hypoalbuminemia * recent echocardiogram shows good LV function and no pulmonary hypertension * good diuresis/UOP with IV albumin and IV lasix x 3 doses * follow trend of urine output without diuretic therapy * follow trend of repeat labs and UOP (2) Stage 3b chronic kidney disease: Code(s): N18.32 - Chronic kidney disease, stage 3b Status: Chronic Assessment and Plan: * creatinine ~ 1.5mg/dl in November 2023 * suspect secondary to hypertension, peripheral vascular disease, and possibly chronic NSAID use as well as age-related change (3) Perforated gastric ulcer: Onset Date: 04/2024 Qualifiers: Gastric ulcer chronicity: acute Qualified Code(s): K25.1 - Acute gastric ulcer with perforation Code(s): K25.5 - Chronic or unspecified gastric ulcer with perforation Status: Acute Assessment and Plan: * suspect secondary to NSAID use * s/p exploratory laparotomy and repair of antral gastric ulcer with omental Clarence patch and placement of open gastrostomy tube (on 04/22) * completed course of antibiotics * TPN discontinued * tolerating G-tube feedings but attempting oral feeding * General Surgery following (4) PAD (peripheral artery disease): Code(s): I73.9 - Peripheral vascular disease, unspecified Status: Acute Assessment and Plan: * CTA of left lower extremity noted * suspect acute on chronic issue * on anticoagulation (5) Anemia: Code(s): D64.9 - Anemia, unspecified Status: Acute Assessment and Plan: * noted acute drop (on 05/10, 05/11, and 05/12) requiring blood transfusion * due to RIC, CKD, and acute illness along with CT scan findings on 05/17: * Intramuscular hematoma of the right iliopsoas and psoas major muscles, with additional irregular hematoma extending to the posterior right retroperitoneum * anemia studies also note iron deficiency * PRBC transfusion per protocol * on Epogen 3x/week (6) Malnutrition following gastrointestinal surgery: Code(s): K91.2 - Postsurgical malabsorption, not elsewhere classified Status: Chronic Assessment and Plan: * off TPN * tube feeds ongoing with boluses * attempting to transition to oral intake (but poor appetite noted) (7) HTN (hypertension): Code(s): I10 - Essential (primary) hypertension Status: Acute Assessment and Plan: * reasonable control * follow trend of hemodynamics (8) Generalized weakness: Code(s): R53.1 - Weakness Status: Acute Assessment and Plan: * multifactorial * PT/OT as tolerated Will continue to follow. L Subjective Date/time seen: 05/18/24 12:57 Interval history: Follow-up for acute kidney injury/acute renal failure on chronic kidney disease. Noted rising WBC (with left shift/bandemia) in association with low grade fevers although exact source unclear -- empiric antibiotics/antifugal therapy initiated; renal function/creatinine continues to slowly improve in association with good urine output; oral intake remains suboptimal and poor appetite persists as well. Exam 2 Narrative: General: elderly but WD/WN male in NAD Heart: normal S1 and S2; no rub Lungs: clear anteriorly; decreased at bases Abdomen: soft, nontender; some bowel sounds; +G-tube Extremities: no cyanosis or clubbing; 1+ edema Skin: no rash Objective Data Vital Signs Vital Signs: Vital Signs Temp Pulse Resp BP Pulse Ox O2 Del Method FiO2 05/18/24 12:40 98.9 F 92 18 131/70 97 05/18/24 08:00 100 18 96 Room Air 05/18/24 06:00 100.1 F H 103 H 18 148/84 H 96 05/17/24 22:00 99.4 F 99 18 151/63 H 100 05/17/24 20:00 95 16 99 Room Air 21 Intake/Output Intake/Output: Intake & Output 05/15/24 05/16/24 05/17/24 05/18/24 23:59 23:59 23:59 23:59 Intake Total 1437 5223 142 0856.4 Output Total 4405 1955 2350 3350 Balance -2968 -178 -1450 -246.6 Meds/Results Medications: Active Medications Generic Name Dose Route Start Last Admin Trade Name Freq PRN Reason Stop Dose Admin Acetaminophen 650 mg 04/26/24 22:19 04/26/24 22:57 Acetaminophen 650 Mg Suppository RECTAL 650 mg Q6H PRN Administration Mild Pain (1-3) or Fever Acetaminophen 650 mg 05/05/24 10:27 05/17/24 23:07 Acetaminophen Elixir 325 Mg/10.15 Ml Udc PO 650 mg Q6H PRN Administration Mild Pain (1-3) or Fever Artificial Tears 1 drop 04/27/24 08:37 Artificial Tears Ophth Soln 15 Ml Bottle EACH EYE QID PRN Dry Eye(s) Atorvastatin Calcium 20 mg 04/30/24 09:00 Atorvastatin 20 Mg Tablet BY MOUTH DAILY ROSY Benzocaine 1 lozenge 05/15/24 15:35 05/15/24 20:27 Benzocaine/Menthol (*Bkc) 18 Ea Lozenge PO 1 lozenge PRN PRN Administration Sore Throat Clonidine HCl 1 patch 05/01/24 09:00 05/15/24 08:47 Clonidine 0.1 Mg/24 Hr Patch TRANSDERM 1 patch WEEKLY ROSY Administration Dextrose 12.5 gm 04/22/24 23:06 Dextrose 50% 25 Gm/50 Ml Syringe IV PUSH PRN PRN Hypoglycemia Protocol Dronabinol 2.5 mg 05/17/24 16:30 05/18/24 15:56 Dronabinol (*Crx) 2.5 Mg Capsule PO 2.5 mg DAILY@1630 ROSY Administration Enoxaparin Sodium 120 mg 05/09/24 06:00 05/17/24 05:05 Enoxaparin 120 Mg/0.8 Ml Syringe SUB-Q 120 mg Q24H ROSY Administration Epoetin Olu-epbx 10,000 units 05/14/24 11:05 05/17/24 08:00 Epoetin Olu-Epbx 10,000 Units/Ml Vial SUB-Q 10,000 units TUTHSA@09 ROSY Administration Glucagon 1 mg 04/22/24 23:06 Glucagon For Inj 1 Mg Vial IM PRN PRN Hypoglycemia Protocol Glucose 15 gm 04/22/24 23:06 Glucose Oral Gel 15 Gm Of Glucse In 37.5 Gm Tube PO PRN PRN Hypoglycemia Protocol Guaifenesin/Dextromethorphan 10 ml 05/15/24 10:07 05/18/24 15:09 Guaifenesin/Dextromethorphan 10 Ml Udc PO 10 ml Q4H PRN Administration Cough Hydralazine HCl 10 mg 04/25/24 08:00 05/03/24 21:47 Hydralazine Hcl 20 Mg/Ml Vial IV PUSH 10 mg Q4H PRN Administration Blood Pressure - High Dextrose 1,000 mls @ 100 mls/hr 04/22/24 23:06 Dextrose 5% 1,000 Ml IVPB PRN PRN Hypoglycemia Protocol Sodium Chloride 1,000 mls @ 125 mls/hr 05/18/24 07:55 05/18/24 16:05 Normal Saline Iv IV CONT 0 mls/hr .Q8H ROSY Infusion Cefepime HCl 2 gm in 50 mls @ 100 mls/hr 05/18/24 09:00 05/18/24 09:12 Maxipime 2 Gm/Ns 50 Ml IVPB Infused Q12HR ROSY Infusion Vancomycin HCl 1,500 mg in 500 mls @ 250 mls/hr 05/19/24 22:00 Vancomycin 1,500 Mg/Ns 500 Ml IVPB Q36H RSOY Metronidazole 500 mg in 100 mls @ 100 mls/hr 05/18/24 09:00 05/18/24 16:04 Flagyl 500 Mg/Iso Soln 100 Ml IVPB 100 mls/hr Q8H ROSY Administration Micafungin Sodium 100 mg/ 100 mls @ 100 mls/hr 05/18/24 09:00 05/18/24 10:20 Sodium Chloride IVPB Infused DAILY ROSY Infusion Ipratropium [place] 0.5 mg 05/04/24 09:32 05/17/24 10:11 Ipratropium Br 0.02% Inh Soln 0.5 Mg/2.5 Ml Vial INHALATION 0.5 mg Q6HRT PRN Administration Shortness Of Breath Levalbuterol HCl 0.63 mg 05/04/24 09:32 05/17/24 10:11 Levalbuterol Neb 1.25 Mg/3 Ml INHALATION 0.63 mg Q6HRT PRN Administration Shortness Of Breath Lidocaine 1 patch 05/18/24 09:00 05/18/24 08:18 Lidocaine 5% Patch TRANSDERM 1 patch DAILY ROSY Administration Lorazepam 0.5 mg 05/16/24 13:48 05/17/24 23:07 Lorazepam (*Crx) 0.5 Mg Tablet PO 0.5 mg Q6H PRN Administration Anxiety Metoclopramide HCl 10 mg 05/16/24 18:00 05/18/24 11:31 Metoclopramide Hcl Inj 10 Mg/2 Ml Vial IV PUSH 10 mg Q6HR ROSY Administration Morphine Sulfate 4 mg 04/22/24 22:02 05/18/24 16:09 Morphine Sulfate (*Crx) 4 Mg/Ml Inj IV PUSH 4 mg Q3H PRN Administration Pain Rated 7-10 Ondansetron HCl 4 mg 05/13/24 11:22 05/15/24 12:53 Ondansetron Inj 4 Mg/2 Ml Vial IV PUSH 4 mg Q6H PRN Administration Nausea And Vomiting Pantoprazole Sodium 40 mg 04/26/24 21:00 05/18/24 08:16 Pantoprazole Sodium Iv 40 Mg Vial IV PUSH 40 mg Q12HR ROSY Administration Sodium Chloride 10 ml 04/23/24 14:00 05/18/24 13:28 Central Line Flush IV PUSH 10 ml Q8HR ROSY Administration Sodium Chloride 20 ml 04/23/24 10:16 05/08/24 06:10 Central Line Flush IV PUSH 20 ml PRN PRN Administration after blood draws Sodium Chloride 10 ml 05/04/24 14:15 Central Line Flush IV PUSH PRN PRN with TPN bag changes Sodium Chloride 20 ml 05/04/24 14:15 05/18/24 06:18 Central Line Flush IV PUSH 20 ml PRN PRN Administration after blood draws Radiology Results: ITS Impressions Chest/Abdomen/Pelvis CTA 04/22/24 18:10 IMPRESSION: Perforated viscus with a large amount of free air and fluid, with mural thickening in the distal stomach and multiple punctate foci of extraluminal air in this area for which site of perforation is suspected. Renal Ultrasound 04/24/24 11:58 IMPRESSION: Simple cyst in the left kidney upper pole. Other appearances are unremarkable. Lower Extremity CTA 05/02/24 16:36 IMPRESSION: 1. Scattered atherosclerotic plaque in the arteries of the left lower limb as detailed above without a discrete hemodynamic significant stenosis. Runoff below the ankle in the left posterior tibial artery this supplies the foot. Atretic distal peroneal and anterior tibial arteries with intraluminal contrast becoming indiscernible at the level of the ankle and with no appreciable contrast in the dorsalis pedis artery. Chest/Abdomen/Pelvis CT 05/08/24 10:43 IMPRESSION: Findings suggesting air and possible fluid extending from the lumen of the antrum of the stomach, with a small anterior collection, as detailed above. Repeat evaluation with Gastrografin via the gastrostomy would provide additional information. Upper GI Series 05/09/24 09:31 IMPRESSION: 1. Ulcer of the gastric antrum with contained extraluminal contrast similar to 04/28/2024. The extraluminal contrast distribution is worse than typically seen after Clarence patch repair. Abdomen CT 05/09/24 15:27 IMPRESSION: Redemonstration of a tract extending from the posterior superior margin of the antrum of the stomach only partially filled with oral contrast, perhaps demonstrating early healing. Abdomen/Pelvis CT 05/17/24 09:03 Impression: Persistent wall thickening of the gastric antrum/duodenum with surrounding haziness, compatible postoperative change. There is persistent irregular tract with small amount of fluid and external air extending from the gastric antrum superiorly/anteriorly, which could reflect abscess or persistent contained perforation. No extraluminal contrast seen, and no oral contrast seen within this collection. Intramuscular hematoma of the right iliopsoas and psoas major muscles, with additional irregular hematoma extending to the posterior right retroperitoneum. Bilateral fat-containing inguinal hernias. Small bilateral pleural effusions. Chest X-Ray 05/17/24 14:51 IMPRESSION: Left basilar atelectasis versus pneumonia. Clinical correlation advised. Labs Labs: Laboratory Tests 05/18/24 06:17 05/18/24 06:17 Calcium 8.0 L Total Bilirubin 0.9 AST 35 ALT 33 Alkaline Phosphatase 165 H Total Protein 6.0 L Albumin 2.6 L
[2024-05-18 14:00] VITALS: BP 131/70; PULSE 92; RESP 18; TEMP 37.2; O2SAT 97
[2024-05-18] MEDS: guaiFENesin/DEXTROMETHORPHAN 10 ML UDC PO (15:09)
[2024-05-18] MEDS: droNABinol (*CRX) 2.5 MG CAPSULE PO (15:56)
[2024-05-18 22:00] VITALS: BP 159/57; PULSE 90; RESP 18; TEMP 37.1; O2SAT 99
[2024-05-18] MEDS: ACETAMINOPHEN ELIXIR 325 MG/10.15 ML UDC 650 MG PO (22:09)
[2024-05-18] MEDS: BENZOCAINE/MENTHOL (*BKC) 18 EA LOZENGE 1 LOZENGE PO (22:11)
[2024-05-19] MEDS: guaiFENesin/DEXTROMETHORPHAN 10 ML UDC PO ×3 (00:05→21:04)
[2024-05-19] MEDS: METOCLOPRAMIDE HCL INJ 10 MG/2 ML VIAL IV PUSH ×4 (00:05→17:25)
[2024-05-19] MEDS: metroNIDAZOLE 500 MG/ISO 100ML 500 MG/100 ML BAG 100 MG IVPB ×3 (01:12→17:25)
[2024-05-19] MEDS: BENZOCAINE/MENTHOL (*BKC) 18 EA LOZENGE 1 LOZENGE PO ×3 (03:07→05:49)
[2024-05-19] MEDS: SODIUM CHLORIDE 0.9% IV 1,000 ML 125 ML IV CONT ×3 (04:19→22:37)
[2024-05-19] MEDS: CENTRAL LINE FLUSH 20 ML IV PUSH (05:24)
[2024-05-19] MEDS: CENTRAL LINE FLUSH 10 ML IV PUSH ×3 (05:24→21:12)
[2024-05-19 05:42] LABS: Hematocrit 26.8 % (42.0-52.0); Hemoglobin 8.3 g/dL (14.0-18.0); Mean Corpuscular Hemoglobin 30.1 pg (26-34); Mean Corpuscular Volume 97.1 fl (80-100); Mean Platelet Volume 13.3 fl (7.4-10.4); Platelet Count Result 146 k/mm3 (150-375); Red Blood Count 2.76 M/mm3 (4.6-6.20); Red Cell Distribution Width 16.4 % (11.5-14.5); White Blood Count 22.3 K/mm3 (4.5-10.0)
[2024-05-19] MEDS: ACETAMINOPHEN ELIXIR 325 MG/10.15 ML UDC 650 MG PO ×2 (05:45→21:04)
[2024-05-19 05:52] LABS: Alanine Aminotransferase 27 U/L (6-50); Albumin Level 2.5 g/dL (3.5-5.1); Alkaline Phosphatase 138 U/L (38-126); Anion Gap 10 mmol/L (4-12); Aspartate Amino Transferase 26 U/L (17-59); Bilirubin,Total 0.7 mg/dL (0.2-1.3); Blood Urea Nitrogen 64 mg/dL (9-20); Calcium 7.8 mg/dL (8.4-10.2); Carbon Dioxide 20 mmol/L (22-30); Chloride 107 mmol/L (98-107); Estimated CRCL calculation 37 ml/min; Estimated Glomerular Filt Rate 30; Glucose 117 mg/dL (65-110); Magnesium 1.6 mg/dL (1.6-2.3); Potassium 4.2 mmol/L (3.4-5.0); Sodium 137 mmol/L (137-145)
[2024-05-19 06:00] VITALS: BP 167/65; PULSE 87; RESP 18; TEMP 37; O2SAT 99
--- NOTE | 2024-05-19 06:53 | P.PNIM_ITS ---
Progress Note: A&P Assessment and Plan (1) Sepsis: Code(s): A41.9 - Sepsis, unspecified organism Status: Resolved Assessment and Plan: Meets SIRS criteria: Tachycardia, Febrile, Leukocytosis - lactic acid: 0.7 - suspected source: Nasal MRSA - blood cultures drawn on 05/18, 02/10 resulted for gram+ cocci, continue IV abx and repeat cultures tomorrow - UA: Cloudy, 1+ protein, otherwise unremarkable - Urine culture pending - CXR: Left basilar atelectasis versus pneumonia. Clinical correlation advised. - IV Vancomycin, consult pharmacy to dose, and Cefepime 2 gram IV q12H - P.r.n. Tylenol, Zofran, and melatonin (2) MRSA (methicillin resistant staph aureus) culture positive: Code(s): Z22.322 - Carrier or suspected carrier of Methicillin resistant Staphylococcus aureus Status: Acute Assessment and Plan: - Nasal MRSA positive - Started on IV Vanc for sepsis, continue - Initiate Mupirocin ointment (3) Bacteremia: Code(s): R78.81 - Bacteremia Status: Acute Assessment and Plan: * Gram+ cocci in clusters isolated from Aerobic bottles * Continue IV antibiotics * Repeat BCs tomorrow (4) Hematoma: Code(s): T14.8XXA - Other injury of unspecified body region, initial encounter Status: Acute Assessment and Plan: * CT abdomen pelvis on 05/17/2024 shows: Intramuscular hematoma of the right iliopsoas and psoas major muscles, with additional irregular hematoma extending to the posterior right retroperitoneum. * Spoke with surgery likely noninfective * Lidocaine patch * Lovenox on hold, no recent found for therapeutic Lovenox, when patient was placed back on Lovenox likely benefit from the 40 mg (5) Pleural effusion: Code(s): J90 - Pleural effusion, not elsewhere classified Status: Acute Assessment and Plan: * Seen on CT * Chest x-ray dated compare * Likely due to 3rd spacing (6) Perforated abdominal viscus: Code(s): R19.8 - Other specified symptoms and signs involving the digestive system and abdomen Status: Acute Assessment and Plan: * Septic shock in setting of peritonitis with perforated gastric ulcer: * Shock has resolved * Status post exploratory laparotomy with repair of antral gastric ulcer with omental Clarence patch, open gastrostomy tube * CT of the abdomen: Redemonstration of a tract extending from the posterior superior margin of the antrum of the stomach only partially filled with oral contrast, perhaps demonstrating early healing. * Surgery is following, added Micafungin * Diet advanced to soft diet * CT abd/pelvis showed no intraabdominal abscess or new fluid collection, UA (-) for UTI. (7) Pneumonia: Code(s): J18.9 - Pneumonia, unspecified organism Status: Acute Assessment and Plan: Improving * Encourage IS use * Cornet therapy * nebs PRN * 05/13 finished antibiotics * Currently on room air (8) Malnutrition following gastrointestinal surgery: Code(s): K91.2 - Postsurgical malabsorption, not elsewhere classified Status: Acute Assessment and Plan: * Passed swallow study. * Patient advanced to soft diet today per General surgery recommendation * Continue to encourage po intake * Bolus tube feeding via G tube * add reglan and Marinol (9) Acute kidney injury superimposed on stage 3b chronic kidney disease: Code(s): N17.9 - Acute kidney failure, unspecified; N18.32 - Chronic kidney disease, stage 3b Status: Acute Assessment and Plan: * baseline creatinine most likely around 1.5 * Nephrology following * Renal ultrasound was unremarkable for any acute issues. * Continue diuresis per Nephrology recommendations --Albumin/Lasix * (10) Anemia: Code(s): D64.9 - Anemia, unspecified Status: Acute Assessment and Plan: Iron deficiency anemia on acute loss Stable * Trend CBC. * transfuse if hgb <7.0, or symptomatic * Iron replacement (11) HTN (hypertension): Code(s): I10 - Essential (primary) hypertension Status: Acute Assessment and Plan: Controlled * Continue Clonidine patch and Hydralazine PRN. * Trend BP (12) Generalized weakness: Code(s): R53.1 - Weakness Status: Acute Assessment and Plan: * PT/OT-maxi move use for transfer * Patient will likely need placement L (13) Hypokalemia: Code(s): E87.6 - Hypokalemia Status: Acute Assessment and Plan: Improved * Trend labs * Replace as indicated (14) Hypernatremia: Code(s): E87.0 - Hyperosmolality and hypernatremia Status: Acute Assessment and Plan: Resolved Daily BMP Time Spent With Patient Time: Subjective Date/time seen: 05/19/24 06:53 Interval history: Follow-up for acute kidney injury/acute renal failure on chronic kidney disease. 05/19/2024 Patient is sitting comfortably in bed at time of examination. Patient appears to be improving clinically today, at this time he denies any chest pain, SOB, n/v, or abdominal pain. Still is experiencing some chest congestion and a slight cough but reports it has greatly improved since yesterday. Blood cultures yielded 1/2 positive result growing gram+ cocci. Will continue IV antibiotics. Appetite appears to be improving somewhat today, continue Marinol and TID bolus tube feedings following meals. WBC and kidney function improving. Bowman catheter removed yesterday. Review of Systems Review of Systems: 12 systems were reviewed and are negativ e except for as per HPI. All systems reviewed & are unremarkable except as noted in HPI and below Exam Narrative: General: Ill appearing, appears stated age. HEENT: normocephalic, atraumatic. Mucous membranes moist. EOMI, PERRLA, bilateral sclera anicteric, no conjunctival injection. Neck supple without JVD, lymphadenopathy, or bruit. Respiratory: clear to ascultation bilaterally. No rales/rhonic/wheezes. Cardiovascular: Regular rate and rhythm, normal S1-S2 upon ascultation. No murmurs, rubs, or clicks. PMI is nondisplaced, capillary refill less than 3 second. Abdomen: Soft, round, no pulsatile masses, nondistended and nontender. No rebound, no guarding. No CVA tenderness, no hepatosplenomegaly. Bowel sounds present to all four quadrants. No high pitch or tinkling sounds, resonant to percussion. Extremities: 2+ edema to both LE. No cyanosis, clubbing present. Pulses are palpable 2/2. Active ROM to all four extremities. Neuro: Alert and orientated x 4. PERRLA. Cranial nerves 2-12 intact without focal deficit. Skin: Warm, dry, and intact, without rash, erythema, or lesion. Psych: pleasant, cooperative, normal speech, normal affect, no hallucinations, no dysarthia Skin: PEG tube, ELSA drain x2 in place, midline incision well approximated without redness or drainage. Const: General: comfortable, no acute distress and uncomfortable Other: Acutely ill-appearing, obese HENMT: Other: Mucous membranes are dry, head is normocephalic atraumatic, few missing teeth, bridge in the lower jaw Eyes: Other: Pupils are equal and reactive, no scleral icterus Neck: Other: No JVD, trachea midline Resp: Effort & Inspection: normal respiratory effort Auscultation: clear to auscultation bilaterally and diminished lung sounds Other: Cardio: Rate: regular rate Rhythm: regular rhythm Other: Telemetry SR 85. GI: Auscultation: normal bowel sounds Other: Gastrostomy tube in place with dry gauze dressing and skin around the G-tube without erythema or drainage. Incision dry with steri strips intact, no erythema. Slightly distended. : Other: Bowman catheter in place was a small amount of turbid yellow urine Urinary Catheter: Urinary Catheter: patent and draining Skin: Other: Generally cold to touch, 2nd cap refill, fingers and toes are cyanotic Neuro: Speech: normal speech Other: Patient is sedated, pupils are reactive, equal Extrem: General: pedal edema bilaterally 2+ Other: 1+PP bilateral feet are warm. Psych: Mental Status: mental status grossly normal Affect: normal affect Other: Unable to assess due to patient condition Objective Data Vital Signs Vital Signs: Vital Signs - 24 hr 05/18/24 08:00 05/18/24 14:00 05/18/24 20:00 Temperature 98.9 F Pulse Rate 100 92 Respiratory Rate 18 18 Blood Pressure 131/70 Pulse Oximetry 96 97 Oxygen Delivery Room Air Room Air 05/18/24 22:00 05/19/24 06:00 Temperature 98.7 F 98.6 F Pulse Rate 90 87 Respiratory Rate 18 18 Blood Pressure 159/57 H 167/65 H Pulse Oximetry 99 99 Oxygen Delivery Intake/Output Intake/Output: Intake & Output 05/16/24 05/17/24 05/18/24 05/19/24 23:59 23:59 23:59 23:59 Intake Total 5325 303 6773.2 839.6 Output Total 1955 2350 4365 200 Balance -178 -1450 307.2 639.6 Meds/Results Medications: Active Medications Generic Name Dose Route Start Last Admin Trade Name Freq PRN Reason Stop Dose Admin Acetaminophen 650 mg 04/26/24 22:19 04/26/24 22:57 Acetaminophen 650 Mg Suppository RECTAL 650 mg Q6H PRN Administration Mild Pain (1-3) or Fever Acetaminophen 650 mg 05/05/24 10:27 05/19/24 05:45 Acetaminophen Elixir 325 Mg/10.15 Ml Udc PO 650 mg Q6H PRN Administration Mild Pain (1-3) or Fever Artificial Tears 1 drop 04/27/24 08:37 Artificial Tears Ophth Soln 15 Ml Bottle EACH EYE QID PRN Dry Eye(s) Atorvastatin Calcium 20 mg 04/30/24 09:00 Atorvastatin 20 Mg Tablet BY MOUTH DAILY ROSY Benzocaine 1 lozenge 05/15/24 15:35 05/19/24 05:49 Benzocaine/Menthol (*Bkc) 18 Ea Lozenge PO 1 lozenge PRN PRN Administration Sore Throat Clonidine HCl 1 patch 05/01/24 09:00 05/15/24 08:47 Clonidine 0.1 Mg/24 Hr Patch TRANSDERM 1 patch WEEKLY ROSY Administration Dextrose 12.5 gm 04/22/24 23:06 Dextrose 50% 25 Gm/50 Ml Syringe IV PUSH PRN PRN Hypoglycemia Protocol Dronabinol 2.5 mg 05/17/24 16:30 05/18/24 15:56 Dronabinol (*Crx) 2.5 Mg Capsule PO 2.5 mg DAILY@1630 ROSY Administration Enoxaparin Sodium 120 mg 05/09/24 06:00 05/17/24 05:05 Enoxaparin 120 Mg/0.8 Ml Syringe SUB-Q 120 mg Q24H ROSY Administration Epoetin Olu-epbx 10,000 units 05/14/24 11:05 05/17/24 08:00 Epoetin Olu-Epbx 10,000 Units/Ml Vial SUB-Q 10,000 units TUTHSA@09 ROSY Administration Glucagon 1 mg 04/22/24 23:06 Glucagon For Inj 1 Mg Vial IM PRN PRN Hypoglycemia Protocol Glucose 15 gm 04/22/24 23:06 Glucose Oral Gel 15 Gm Of Glucse In 37.5 Gm Tube PO PRN PRN Hypoglycemia Protocol Guaifenesin/Dextromethorphan 10 ml 05/15/24 10:07 05/19/24 00:05 Guaifenesin/Dextromethorphan 10 Ml Udc PO 10 ml Q4H PRN Administration Cough Hydralazine HCl 10 mg 04/25/24 08:00 05/03/24 21:47 Hydralazine Hcl 20 Mg/Ml Vial IV PUSH 10 mg Q4H PRN Administration Blood Pressure - High Dextrose 1,000 mls @ 100 mls/hr 04/22/24 23:06 Dextrose 5% 1,000 Ml IVPB PRN PRN Hypoglycemia Protocol Sodium Chloride 1,000 mls @ 125 mls/hr 05/18/24 07:55 05/19/24 04:19 Normal Saline Iv IV CONT 125 mls/hr .Q8H ROSY Administration Cefepime HCl 2 gm in 50 mls @ 100 mls/hr 05/18/24 09:00 05/18/24 20:40 Maxipime 2 Gm/Ns 50 Ml IVPB Infused Q12HR ROSY Infusion Vancomycin HCl 1,500 mg in 500 mls @ 250 mls/hr 05/19/24 22:00 Vancomycin 1,500 Mg/Ns 500 Ml IVPB Q36H ROSY Metronidazole 500 mg in 100 mls @ 100 mls/hr 05/18/24 09:00 05/19/24 02:37 Flagyl 500 Mg/Iso Soln 100 Ml IVPB Infused Q8H ROSY Infusion Micafungin Sodium 100 mg/ 100 mls @ 100 mls/hr 05/18/24 09:00 05/18/24 10:20 Sodium Chloride IVPB Infused DAILY ROSY Infusion Ipratropium [place] 0.5 mg 05/04/24 09:32 05/17/24 10:11 Ipratropium Br 0.02% Inh Soln 0.5 Mg/2.5 Ml Vial INHALATION 0.5 mg Q6HRT PRN Administration Shortness Of Breath Levalbuterol HCl 0.63 mg 05/04/24 09:32 05/17/24 10:11 Levalbuterol Neb 1.25 Mg/3 Ml INHALATION 0.63 mg Q6HRT PRN Administration Shortness Of Breath Lidocaine 1 patch 05/18/24 09:00 05/18/24 08:18 Lidocaine 5% Patch TRANSDERM 1 patch DAILY ROSY Administration Lorazepam 0.5 mg 05/16/24 13:48 05/17/24 23:07 Lorazepam (*Crx) 0.5 Mg Tablet PO 0.5 mg Q6H PRN Administration Anxiety Metoclopramide HCl 10 mg 05/16/24 18:00 05/19/24 05:45 Metoclopramide Hcl Inj 10 Mg/2 Ml Vial IV PUSH 10 mg Q6HR ROSY Administration Morphine Sulfate 4 mg 04/22/24 22:02 05/18/24 16:09 Morphine Sulfate (*Crx) 4 Mg/Ml Inj IV PUSH 4 mg Q3H PRN Administration Pain Rated 7-10 Ondansetron HCl 4 mg 05/13/24 11:22 05/15/24 12:53 Ondansetron Inj 4 Mg/2 Ml Vial IV PUSH 4 mg Q6H PRN Administration Nausea And Vomiting Pantoprazole Sodium 40 mg 04/26/24 21:00 05/18/24 20:19 Pantoprazole Sodium Iv 40 Mg Vial IV PUSH 40 mg Q12HR ROSY Administration Sodium Chloride 10 ml 04/23/24 14:00 05/19/24 05:24 Central Line Flush IV PUSH 10 ml Q8HR ROSY Administration Sodium Chloride 20 ml 04/23/24 10:16 05/19/24 05:24 Central Line Flush IV PUSH 20 ml PRN PRN Administration after blood draws Sodium Chloride 10 ml 05/04/24 14:15 Central Line Flush IV PUSH PRN PRN with TPN bag changes Sodium Chloride 20 ml 05/04/24 14:15 05/18/24 06:18 Central Line Flush IV PUSH 20 ml PRN PRN Administration after blood draws Radiology Results: ITS Impressions Chest/Abdomen/Pelvis CTA 04/22/24 18:10 IMPRESSION: Perforated viscus with a large amount of free air and fluid, with mural thickening in the distal stomach and multiple punctate foci of extraluminal air in this area for which site of perforation is suspected. Renal Ultrasound 04/24/24 11:58 IMPRESSION: Simple cyst in the left kidney upper pole. Other appearances are unremarkable. Lower Extremity CTA 05/02/24 16:36 IMPRESSION: 1. Scattered atherosclerotic plaque in the arteries of the left lower limb as detailed above without a discrete hemodynamic significant stenosis. Runoff below the ankle in the left posterior tibial artery this supplies the foot. Atretic distal peroneal and anterior tibial arteries with intraluminal contrast becoming indiscernible at the level of the ankle and with no appreciable contrast in the dorsalis pedis artery. Chest/Abdomen/Pelvis CT 05/08/24 10:43 IMPRESSION: Findings suggesting air and possible fluid extending from the lumen of the a ntrum of the stomach, with a small anterior collection, as detailed above. Repeat evaluation with Gastrografin via the gastrostomy would provide additional information. Upper GI Series 05/09/24 09:31 IMPRESSION: 1. Ulcer of the gastric antrum with contained extraluminal contrast similar to 04/28/2024. The extraluminal contrast distribution is worse than typically seen after Clarence patch repair. Abdomen CT 05/09/24 15:27 IMPRESSION: Redemonstration of a tract extending from the posterior superior margin of the antrum of the stomach only partially filled with oral contrast, perhaps demonstrating early healing. Abdomen/Pelvis CT 05/17/24 09:03 Impression: Persistent wall thickening of the gastric antrum/duodenum with surrounding haziness, compatible postoperative change. There is persistent irregular tract with small amount of fluid and external air extending from the gastric antrum superiorly/anteriorly, which could reflect abscess or persistent contained perforation. No extraluminal contrast seen, and no oral contrast seen within this collection. Intramuscular hematoma of the right iliopsoas and psoas major muscles, with additional irregular hematoma extending to the posterior right retroperitoneum. Bilateral fat-containing inguinal hernias. Small bilateral pleural effusions. Chest X-Ray 05/17/24 14:51 IMPRESSION: Left basilar atelectasis versus pneumonia. Clinical correlation advised. Labs Labs: Laboratory Results - last 24 hr 05/18/24 05/18/24 05/18/24 06:17 08:37 08:56 Total Counted 100 Neutrophils % (Manual) 86 H Band Neutrophils % 7 H Lymphocytes % (Manual) 5 L Monocytes % (Manual) 1 L Eosinophils % (Manual) 1 Abs Neuts (Manual) 26.97 H Abs Lymphs (Manual) 1.45 Abs Monocytes (Manual) 0.29 Absolute Eos (Manual) 0.29 Smudge Cells Few Platelet Estimate Adequate Anisocytosis 1+ Schistocytes None seen Sodium Potassium Chloride Carbon Dioxide Anion Gap BUN Creatinine Estim Creat Clear Calc Estimated GFR Glucose Lactic Acid 0.7 Calcium Magnesium Total Bilirubin AST ALT Alkaline Phosphatase Total Protein Albumin Nasal MRSA (PCR) Detected A* 05/19/24 05:26 Total Counted Neutrophils % (Manual) Band Neutrophils % Lymphocytes % (Manual) Monocytes % (Manual) Eosinophils % (Manual) Abs Neuts (Manual) Abs Lymphs (Manual) Abs Monocytes (Manual) Absolute Eos (Manual) Smudge Cells Platelet Estimate Anisocytosis Schistocytes Sodium 137 Potassium 4.2 Chloride 107 Carbon Dioxide 20 L Anion Gap 10 BUN 64 H Creatinine 2.16 H Estim Creat Clear Calc 37 Estimated GFR 30 L Glucose 117 H Lactic Acid Calcium 7.8 L Magnesium 1.6 Total Bilirubin 0.7 AST 26 ALT 27 Alkaline Phosphatase 138 H Total Protein 6.0 L Albumin 2.5 L Nasal MRSA (PCR) Quality VTE Prophylaxis VTE prophylaxis: mechanical ordered and pharmacologic ordered
[2024-05-19 07:05] LABS: Anisocytosis 1+; Band Neutrophils Percent 11 % (0-6); Eosinophils Absolute Manual 0.22 K/mm3 (0.02-0.50); Eosinophils Percent Manual 1 % (0-4); Neutrophils Absolute Manual 22.07 K/mm3 (1.3-6.7); Neutrophils Percent Manual 88 % (46-73); Platelet Estimate Slightly Decreased (Adequate); Schistocytes None Seen; Total Cells Counted 100
[2024-05-19] MEDS: CALCIUM/VITAMIN D 500 MG/5 MCG (200 I.U.) TABLET PO (08:07)
[2024-05-19] MEDS: CEFEPIME 2 GM/NS 50 ML 2 GM/50 ML BAG IVPB ×2 (08:07→21:03)
[2024-05-19] MEDS: EPOETIN ALFA-EPBX 10,000 UNITS/ML VIAL 10000 UNITS SUB-Q (08:07)
[2024-05-19] MEDS: PANTOPRAZOLE SODIUM IV 40 MG VIAL IV PUSH ×2 (08:07→21:03)
[2024-05-19] MEDS: LIDOCAINE 5% PATCH 1 PATCH TRANSDERM (08:12)
[2024-05-19] MEDS: MICAFUNGIN SODIUM 100 MG in SODIUM CHLORIDE 0.9% IV 100 ML IVPB (08:36)
[2024-05-19 08:38] VITALS: RESP 18; O2SAT 99
--- NOTE | 2024-05-19 11:01 | PM.PNGS ---
Progress Note: A&P Assessment and Plan (1) Perforated gastric ulcer: Onset Date: 04/2024 Qualifiers: Gastric ulcer chronicity: acute Qualified Code(s): K25.1 - Acute gastric ulcer with perforation Code(s): K25.5 - Chronic or unspecified gastric ulcer with perforation Status: Acute Assessment and Plan: Status post repair with omental patch. WBC count down today, no fevers overnight. Blood cultures 1/2 growing gram + cocci. Continue IV antibiotics. His appetite is slowly improving. Continue Marinol and encouraging po intake. He is still receiving bolus tube feedings after meals. Continue to monitor LUQ ELSA drain. (2) Malnutrition following gastrointestinal surgery: Code(s): K91.2 - Postsurgical malabsorption, not elsewhere classified Status: Acute Assessment and Plan: Appetite slowly improving and intake is better but still inadequate. Continue TID bolus tube feedings following meals and supplements until his intake improves. Continue Reglan and Marinol. (3) Acute kidney injury superimposed on stage 3b chronic kidney disease: Code(s): N17.9 - Acute kidney failure, unspecified; N18.32 - Chronic kidney disease, stage 3b Status: Acute Assessment and Plan: Creatinine continues to improve. Nephrology is following and management as per Nephrology. (4) Hematoma: Code(s): T14.8XXA - Other injury of unspecified body region, initial encounter Status: Acute Assessment and Plan: CT showed intramuscular iliopsoas hematoma. Hgb remains stable. Continue to hold Lovenox and monitor. Plan I have discussed the patient's case and plan of care with Dr. Moreno. Subjective Subjective Date/Time Seen: 05/19/24 11:01 Patient reports: no new complaints, flatus, bowel movement and afebrile (since yesterday at 0600) Interval history: Reports his appetite is improving. He was able to eat more yesterday but still only had about 20% of his dinner. Tolerating bolus tube feedings. He denies any abdominal pain or nausea. WBC count down to 22. Bowman catheter removed yesterday. He has some urinary incontinence but is able to urinate on his own with condom catheter in place. Exam Const: General: comfortable and no acute distress Orientation/consciousness: patient oriented x3 GI: Inspection: Abdominal wall edema bilateral, non-distended and incision (Healing well, no erythema, Steri-Strips intact) GI Palp: Yes Soft to palpation, No Tenderness to palpation present (GI) and No Guarding due to palpation present (GI) Auscultation: normal bowel sounds Other: RUQ gauze dressing with minimal serous drainage. Left upper quadrant ELSA drain with scant lagos purulent drainage. Gastrostomy tube clamped with skin around tube without erythema and scant yellow drainage. Extrem: General: no calf tenderness and edema (bilateral lower extremity 3+ pitting edema) Other: Both feet are the same color, but left foot is cool in comparison to the right. Good capillary refill. He is able to wiggle his toes bilaterally and denies any pain in this leg. There is a palpable pedal pulse bilaterally. He has decreased ROM of dorsiflexion and extension d/t his generalized weakness but this is equal bilaterally. Objective Data Vital Signs Vital Signs: Vital Signs - 24 hr 05/18/24 14:00 05/18/24 20:00 05/18/24 22:00 Temperature 98.9 F 98.7 F Pulse Rate 92 90 Respiratory Rate 18 18 Blood Pressure 131/70 159/57 H Pulse Oximetry 97 99 Oxygen Delivery Room Air 05/19/24 06:00 Temperature 98.6 F Pulse Rate 87 Respiratory Rate 18 Blood Pressure 167/65 H Pulse Oximetry 99 Oxygen Delivery Intake/Output Intake/Output: Intake & Output 05/16/24 05/17/24 05/18/24 05/19/24 23:59 23:59 23:59 23:59 Intake Total 7686 143 2880.2 1590.9 Output Total 1955 2350 4365 200 Balance -178 -1450 307.2 1390.9 Meds/Results Medications: Active Medications Generic Name Dose Route Start Last Admin Trade Name Freq PRN Reason Stop Dose Admin Acetaminophen 650 mg 04/26/24 22:19 04/26/24 22:57 Acetaminophen 650 Mg Suppository RECTAL 650 mg Q6H PRN Administration Mild Pain (1-3) or Fever Acetaminophen 650 mg 05/05/24 10:27 05/19/24 05:45 Acetaminophen Elixir 325 Mg/10.15 Ml Udc PO 650 mg Q6H PRN Administration Mild Pain (1-3) or Fever Artificial Tears 1 drop 04/27/24 08:37 Artificial Tears Ophth Soln 15 Ml Bottle EACH EYE QID PRN Dry Eye(s) Atorvastatin Calcium 20 mg 04/30/24 09:00 Atorvastatin 20 Mg Tablet BY MOUTH DAILY ROSY Benzocaine 1 lozenge 05/15/24 15:35 05/19/24 05:49 Benzocaine/Menthol (*Bkc) 18 Ea Lozenge PO 1 lozenge PRN PRN Administration Sore Throat Calcium Carbonate 500 mg 05/19/24 08:00 05/19/24 08:07 Calcium/Vitamin D 500 Mg/5 Mcg (200 I.U.) Tablet PO 500 mg DAILY@0800 [facility] Administration Clonidine HCl 1 patch 05/01/24 09:00 05/15/24 08:47 Clonidine 0.1 Mg/24 Hr Patch TRANSDERM 1 patch WEEKLY ROSY Administration Dextrose 12.5 gm 04/22/24 23:06 Dextrose 50% 25 Gm/50 Ml Syringe IV PUSH PRN PRN Hypoglycemia Protocol Dronabinol 2.5 mg 05/17/24 16:30 05/18/24 15:56 Dronabinol (*Crx) 2.5 Mg Capsule PO 2.5 mg DAILY@1630 [facility] Administration Enoxaparin Sodium 120 mg 05/09/24 06:00 05/17/24 05:05 Enoxaparin 120 Mg/0.8 Ml Syringe SUB-Q 120 mg Q24H ROSY Administration Epoetin Olu-epbx 10,000 units 05/14/24 11:05 05/19/24 08:07 Epoetin Olu-Epbx 10,000 Units/Ml Vial SUB-Q 10,000 units TUTHSA@09 [facility] Administration Glucagon 1 mg 04/22/24 23:06 Glucagon For Inj 1 Mg Vial IM PRN PRN Hypoglycemia Protocol Glucose 15 gm 04/22/24 23:06 Glucose Oral Gel 15 Gm Of Glucse In 37.5 Gm Tube PO PRN PRN Hypoglycemia Protocol Guaifenesin/Dextromethorphan 10 ml 05/15/24 10:07 05/19/24 08:07 Guaifenesin/Dextromethorphan 10 Ml Udc PO 10 ml Q4H PRN Administration Cough Hydralazine HCl 10 mg 04/25/24 08:00 05/03/24 21:47 Hydralazine Hcl 20 Mg/Ml Vial IV PUSH 10 mg Q4H PRN Administration Blood Pressure - High Dextrose 1,000 mls @ 100 mls/hr 04/22/24 23:06 Dextrose 5% 1,000 Ml IVPB PRN PRN Hypoglycemia Protocol Sodium Chloride 1,000 mls @ 125 mls/hr 05/18/24 07:55 05/19/24 08:10 Normal Saline Iv IV CONT 0 mls/hr .Q8H ROSY Infusion Cefepime HCl 2 gm in 50 mls @ 100 mls/hr 05/18/24 09:00 05/19/24 08:37 Maxipime 2 Gm/Ns 50 Ml IVPB Infused Q12HR ROSY Infusion Vancomycin HCl 1,500 mg in 500 mls @ 250 mls/hr 05/19/24 22:00 Vancomycin 1,500 Mg/Ns 500 Ml IVPB Q36H ROSY Metronidazole 500 mg in 100 mls @ 100 mls/hr 05/18/24 09:00 05/19/24 09:12 Flagyl 500 Mg/Iso Soln 100 Ml IVPB Infused Q8H ROSY Infusion Micafungin Sodium 100 mg/ 100 mls @ 100 mls/hr 05/18/24 09:00 05/19/24 08:36 Sodium Chloride IVPB 100 mls/hr DAILY ROSY Administration Ipratropium Leary 0.5 mg 05/04/24 09:32 05/17/24 10:11 Ipratropium Br 0.02% Inh Soln 0.5 Mg/2.5 Ml Vial INHALATION 0.5 mg Q6HRT PRN Administration Shortness Of Breath Levalbuterol HCl 0.63 mg 05/04/24 09:32 05/17/24 10:11 Levalbuterol Neb 1.25 Mg/3 Ml INHALATION 0.63 mg Q6HRT PRN Administration Shortness Of Breath Lidocaine 1 patch 05/18/24 09:00 05/19/24 08:12 Lidocaine 5% Patch TRANSDERM 1 patch DAILY ROSY Administration Lorazepam 0.5 mg 05/16/24 13:48 05/17/24 23:07 Lorazepam (*Crx) 0.5 Mg Tablet PO 0.5 mg Q6H PRN Administration Anxiety Metoclopramide HCl 10 mg 05/16/24 18:00 05/19/24 05:45 Metoclopramide Hcl Inj 10 Mg/2 Ml Vial IV PUSH 10 mg Q6HR ROSY Administration Morphine Sulfate 4 mg 04/22/24 22:02 05/18/24 16:09 Morphine Sulfate (*Crx) 4 Mg/Ml Inj IV PUSH 4 mg Q3H PRN Administration Pain Rated 7-10 Ondansetron HCl 4 mg 05/13/24 11:22 05/15/24 12:53 Ondansetron Inj 4 Mg/2 Ml Vial IV PUSH 4 mg Q6H PRN Administration Nausea And Vomiting Pantoprazole Sodium 40 mg 04/26/24 21:00 05/19/24 08:07 Pantoprazole Sodium Iv 40 Mg Vial IV PUSH 40 mg Q12HR ROSY Administration Sodium Chloride 10 ml 04/23/24 14:00 05/19/24 05:24 Central Line Flush IV PUSH 10 ml Q8HR ROSY Administration Sodium Chloride 20 ml 04/23/24 10:16 05/19/24 05:24 Central Line Flush IV PUSH 20 ml PRN PRN Administration after blood draws Sodium Chloride 10 ml 05/04/24 14:15 Central Line Flush IV PUSH PRN PRN with TPN bag changes Sodium Chloride 20 ml 05/04/24 14:15 05/18/24 06:18 Central Line Flush IV PUSH 20 ml PRN PRN Administration after blood draws Radiology Results: ITS Impressions Chest/Abdomen/Pelvis CTA 04/22/24 18:10 IMPRESSION: Perforated viscus with a large amount of free air and fluid, with mural thickening in the distal stomach and multiple punctate foci of extraluminal air in this area for which site of perforation is suspected. Renal Ultrasound 04/24/24 11:58 IMPRESSION: Simple cyst in the left kidney upper pole. Other appearances are unremarkable. Lower Extremity CTA 05/02/24 16:36 IMPRESSION: 1. Scattered atherosclerotic plaque in the arteries of the left lower limb as detailed above without a discrete hemodynamic significant stenosis. Runoff below the ankle in the left posterior tibial artery this supplies the foot. Atretic distal peroneal and anterior tibial arteries with intraluminal contrast becoming indiscernible at the level of the ankle and with no appreciable contrast in the dorsalis pedis artery. Chest/Abdomen/Pelvis CT 05/08/24 10:43 IMPRESSION: Findings suggesting air and possible fluid extending from the lumen of the antrum of the stomach, with a small anterior collection, as detailed above. Repeat evaluation with Gastrografin via the gastrostomy would provide additional information. Upper GI Series 05/09/24 09:31 IMPRESSION: 1. Ulcer of the gastric antrum with contained extraluminal contrast similar to 04/28/2024. The extraluminal contrast distribution is worse than typically seen after Clarence patch repair. Abdomen CT 05/09/24 15:27 IMPRESSION: Redemonstration of a tract extending from the posterior superior margin of the antrum of the stomach only partially filled with oral contrast, perhaps demonstrating early healing. Abdomen/Pelvis CT 05/17/24 09:03 Impression: Persistent wall thickening of the gastric antrum/duodenum with surrounding haziness, compatible postoperative change. There is persistent irregular tract with small amount of fluid and external air extending from the gastric antrum superiorly/anteriorly, which could reflect abscess or persistent contained perforation. No extraluminal contrast seen, and no oral contrast seen within this collection. Intramuscular hematoma of the right iliopsoas and psoas major muscles, with additional irregular hematoma extending to the posterior right retroperitoneum. Bilateral fat-containing inguinal hernias. Small bilateral pleural effusions. Chest X-Ray 05/17/24 14:51 IMPRESSION: Left basilar atelectasis versus pneumonia. Clinical correlation advised. Labs Labs: Laboratory Results - last 24 hr 05/19/24 05:26 WBC 22.3 H RBC 2.76 L Hgb 8.3 L Hct 26.8 L MCV 97.1 MCH 30.1 MCHC 31.0 L RDW 16.4 H Plt Count 146 L MPV 13.3 H Immature Gran % (Auto) Not Reportable Neut % (Auto) Not Reportable Lymph % (Auto) Not Reportable [place] % (Auto) Not Reportable Eos % (Auto) Not Reportable Baso % (Auto) Not Reportable Lymph # (Auto) Not Reportable [place] # (Auto) Not Reportable Eos # (Auto) Not Reportable Baso # (Auto) Not Reportable Abs Immat Gran (auto) Not Reportable Absolute Neuts (auto) Not Reportable Absolute Nucleated RBC Not Reportable Total Counted 100 Neutrophils % (Manual) 88 H Band Neutrophils % 11 H Eosinophils % (Manual) 1 Nucleated RBC % Not Reportable Abs Neuts (Manual) 22.07 H Absolute Eos (Manual) 0.22 Platelet Estimate Slightly decreased % Immature Plt Fraction 9.0 Anisocytosis 1+ Schistocytes None seen Sodium 137 Potassium 4.2 Chloride 107 Carbon Dioxide 20 L Anion Gap 10 BUN 64 H Creatinine 2.16 H Estim Creat Clear Calc 37 Estimated GFR 30 L Glucose 117 H Calcium 7.8 L Magnesium 1.6 Total Bilirubin 0.7 AST 26 ALT 27 Alkaline Phosphatase 138 H Total Protein 6.0 L Albumin 2.5 L
--- NOTE | 2024-05-19 13:13 | P.PNNP_ITS ---
Progress Note: A&P Assessment and Plan (1) Acute kidney injury: Code(s): N17.9 - Acute kidney failure, unspecified Status: Acute Assessment and Plan: * better by recent labs * had improved to baseline (1.5mg/dl) on 04/30 * then georgette to the low 4ish range * suspect initial insult to be of multifactorial etiology: * NSAID use * hypotension/hemodynmic instability/shock * sepsis/infection * third spacing * evaluation to date: * CT shows normal kidneys * renal u/s with simple cyst x 1 o/w unremarkable. * urine electrolytes are prerenal * CPK mildly elevated (but not enough to affect kidneys) * urine eosinophils negative * mild proteinuria * another acute insult noted by recent labs (since 05/02): * possible due to pre-renal factors, infection (UTI +/- pneumonia versus gastric leak) * recent imaging noted - no evidence of gastric leak * repeat urine studies (on 05/08) suggestive of UTI and prerenal azotemia * despite prerenal urine electrolytes, he has evidence of volume overload * suspect related to 3rd spacing and hypoalbuminemia * recent echocardiogram shows good LV function and no pulmonary hypertension * good diuresis/UOP with IV albumin and IV lasix x 3 doses * follow trend of urine output without diuretic therapy * follow trend of repeat labs and UOP (2) Stage 3b chronic kidney disease: Code(s): N18.32 - Chronic kidney disease, stage 3b Status: Chronic Assessment and Plan: * creatinine ~ 1.5mg/dl in November 2023 * suspect secondary to hypertension, peripheral vascular disease, and possibly chronic NSAID use as well as age-related change (3) Bacteremia: Code(s): R78.81 - Bacteremia Status: Acute Assessment and Plan: * gram+ cocci in clusters isolated from Aerobic bottles * continue IV antibiotics * follow repeat blood cultures * source? (4) Perforated gastric ulcer: Onset Date: 04/2024 Qualifiers: Gastric ulcer chronicity: acute Qualified Code(s): K25.1 - Acute gastric ulcer with perforation Code(s): K25.5 - Chronic or unspecified gastric ulcer with perforation Status: Acute Assessment and Plan: * suspect secondary to NSAID use * s/p exploratory laparotomy and repair of antral gastric ulcer with omental Clarence patch and placement of open gastrostomy tube (on 04/22) * TPN discontinued * bolus G-tube feedings with meals; continue oral feeding * General Surgery following (5) Hematoma: Code(s): T14.8XXA - Other injury of unspecified body region, initial encounter Status: Acute Assessment and Plan: * as noted by CT abdomen pelvis on 05/17/2024 * likely a contributing component of anemia * Lovenox on hold (6) PAD (peripheral artery disease): Code(s): I73.9 - Peripheral vascular disease, unspecified Status: Acute Assessment and Plan: * CTA of left lower extremity noted * suspect acute on chronic issue * on anticoagulation (7) Anemia: Code(s): D64.9 - Anemia, unspecified Status: Acute Assessment and Plan: * noted acute drop (on 05/10, 05/11, and 05/12) requiring blood transfusion * due to RIC, CKD, and acute illness along with CT scan findings on 05/17: * Intramuscular hematoma of the right iliopsoas and psoas major muscles, with additional irregular hematoma extending to the posterior right retroperitoneum * anemia studies also note iron deficiency * PRBC transfusion per protocol * on Epogen 3x/week (8) Malnutrition following gastrointestinal surgery: Code(s): K91.2 - Postsurgical malabsorption, not elsewhere classified Status: Chronic Assessment and Plan: * off TPN * tube feeds ongoing with boluses * attempting to transition to oral intake (but poor appetite noted) * on appetite stimulant (9) HTN (hypertension): Code(s): I10 - Essential (primary) hypertension Status: Acute Assessment and Plan: * reasonable control * follow trend of hemodynamics (10) Generalized weakness: Code(s): R53.1 - Weakness Status: Acute Assessment and Plan: * multifactorial * PT/OT as tolerated Will continue to follow. L Subjective Date/time seen: 05/19/24 13:13 Interval history: Follow-up for acute kidney injury/acute renal failure on chronic kidney disease. Improvement in WBC noted but positive blood cultures noted; renal function/creatinine continues to improve with reasonable urine output; appetite slowly improving but still getting bolus tube feedings with meals; no acute distress noted at the time of my visit; no issues/events overnight. Exam 2 Narrative: General: elderly but WD/WN male in NAD Heart: normal S1 and S2; no rub Lungs: clear anteriorly; decreased at bases Abdomen: soft, nontender; some bowel sounds; +G-tube Extremities: no cyanosis or clubbing; 1+ edema Skin: no nodules Objective Data Vital Signs Vital Signs: Vital Signs Temp Pulse Resp BP Pulse Ox O2 Del Method FiO2 05/19/24 13:00 97.9 F 93 18 158/87 H 96 05/19/24 08:38 18 99 Room Air 21 05/19/24 06:00 98.6 F 87 18 167/65 H 99 05/18/24 22:00 98.7 F 90 18 159/57 H 99 05/18/24 20:00 Room Air Intake/Output Intake/Output: Intake & Output 05/16/24 05/17/24 05/18/24 05/19/24 23:59 23:59 23:59 23:59 Intake Total 3513 424 1979.2 2391.3 Output Total 1955 2350 4365 200 Balance -178 -1450 307.2 2191.3 Meds/Results Medications: Active Medications Generic Name Dose Route Start Last Admin Trade Name Freq PRN Reason Stop Dose Admin Acetaminophen 650 mg 04/26/24 22:19 04/26/24 22:57 Acetaminophen 650 Mg Suppository RECTAL 650 mg Q6H PRN Administration Mild Pain (1-3) or Fever Acetaminophen 650 mg 05/05/24 10:27 05/19/24 05:45 Acetaminophen Elixir 325 Mg/10.15 Ml Udc PO 650 mg Q6H PRN Administration Mild Pain (1-3) or Fever Artificial Tears 1 drop 04/27/24 08:37 Artificial Tears Ophth Soln 15 Ml Bottle EACH EYE QID PRN Dry Eye(s) Atorvastatin Calcium 20 mg 04/30/24 09:00 Atorvastatin 20 Mg Tablet BY MOUTH DAILY ROSY Benzocaine 1 lozenge 05/15/24 15:35 05/19/24 05:49 Benzocaine/Menthol (*Bkc) 18 Ea Lozenge PO 1 lozenge PRN PRN Administration Sore Throat Calcium Carbonate 500 mg 05/19/24 08:00 05/19/24 08:07 Calcium/Vitamin D 500 Mg/5 Mcg (200 I.U.) Tablet PO 500 mg DAILY@0800 ROSY Administration Clonidine HCl 1 patch 05/01/24 09:00 05/15/24 08:47 Clonidine 0.1 Mg/24 Hr Patch TRANSDERM 1 patch WEEKLY ROSY Administration Dextrose 12.5 gm 04/22/24 23:06 Dextrose 50% 25 Gm/50 Ml Syringe IV PUSH PRN PRN Hypoglycemia Protocol Dronabinol 2.5 mg 05/17/24 16:30 05/19/24 15:52 Dronabinol (*Crx) 2.5 Mg Capsule PO 2.5 mg DAILY@1630 ROSY Administration Enoxaparin Sodium 120 mg 05/09/24 06:00 05/17/24 05:05 Enoxaparin 120 Mg/0.8 Ml Syringe SUB-Q 120 mg Q24H ROSY Administration Epoetin Olu-epbx 10,000 units 05/14/24 11:05 05/19/24 08:07 Epoetin Olu-Epbx 10,000 Units/Ml Vial SUB-Q 10,000 units TUTHSA@09 ROSY Administration Glucagon 1 mg 04/22/24 23:06 Glucagon For Inj 1 Mg Vial IM PRN PRN Hypoglycemia Protocol Glucose 15 gm 04/22/24 23:06 Glucose Oral Gel 15 Gm Of Glucse In 37.5 Gm Tube PO PRN PRN Hypoglycemia Protocol Guaifenesin/Dextromethorphan 10 ml 05/15/24 10:07 05/19/24 08:07 Guaifenesin/Dextromethorphan 10 Ml Udc PO 10 ml Q4H PRN Administration Cough Hydralazine HCl 10 mg 04/25/24 08:00 05/03/24 21:47 Hydralazine Hcl 20 Mg/Ml Vial IV PUSH 10 mg Q4H PRN Administration Blood Pressure - High Dextrose 1,000 mls @ 100 mls/hr 04/22/24 23:06 Dextrose 5% 1,000 Ml IVPB PRN PRN Hypoglycemia Protocol Sodium Chloride 1,000 mls @ 125 mls/hr 05/18/24 07:55 05/19/24 13:17 Normal Saline Iv IV CONT 125 mls/hr .Q8H ROSY Administration Cefepime HCl 2 gm in 50 mls @ 100 mls/hr 05/18/24 09:00 05/19/24 08:37 Maxipime 2 Gm/Ns 50 Ml IVPB Infused Q12HR ROSY Infusion Vancomycin HCl 1,500 mg in 500 mls @ 250 mls/hr 05/19/24 22:00 Vancomycin 1,500 Mg/Ns 500 Ml IVPB Q36H ROSY Metronidazole 500 mg in 100 mls @ 100 mls/hr 05/18/24 09:00 05/19/24 09:12 Flagyl 500 Mg/Iso Soln 100 Ml IVPB Infused Q8H ROSY Infusion Micafungin Sodium 100 mg/ 100 mls @ 100 mls/hr 05/18/24 09:00 05/19/24 09:36 Sodium Chloride IVPB Infused DAILY ROSY Infusion Ipratropium Stamps 0.5 mg 05/04/24 09:32 05/17/24 10:11 Ipratropium Br 0.02% Inh Soln 0.5 Mg/2.5 Ml Vial INHALATION 0.5 mg Q6HRT PRN Administration Shortness Of Breath Levalbuterol HCl 0.63 mg 05/04/24 09:32 05/17/24 10:11 Levalbuterol Neb 1.25 Mg/3 Ml INHALATION 0.63 mg Q6HRT PRN Administration Shortness Of Breath Lidocaine 1 patch 05/18/24 09:00 05/19/24 08:12 Lidocaine 5% Patch TRANSDERM 1 patch DAILY ROSY Administration Lorazepam 0.5 mg 05/16/24 13:48 05/17/24 23:07 Lorazepam (*Crx) 0.5 Mg Tablet PO 0.5 mg Q6H PRN Administration Anxiety Metoclopramide HCl 10 mg 05/16/24 18:00 05/19/24 11:51 Metoclopramide Hcl Inj 10 Mg/2 Ml Vial IV PUSH 10 mg Q6HR ROSY Administration Morphine Sulfate 4 mg 04/22/24 22:02 05/18/24 16:09 Morphine Sulfate (*Crx) 4 Mg/Ml Inj IV PUSH 4 mg Q3H PRN Administration Pain Rated 7-10 Ondansetron HCl 4 mg 05/13/24 11:22 05/15/24 12:53 Ondansetron Inj 4 Mg/2 Ml Vial IV PUSH 4 mg Q6H PRN Administration Nausea And Vomiting Pantoprazole Sodium 40 mg 04/26/24 21:00 05/19/24 08:07 Pantoprazole Sodium Iv 40 Mg Vial IV PUSH 40 mg Q12HR ROSY Administration Sodium Chloride 10 ml 04/23/24 14:00 05/19/24 13:15 Central Line Flush IV PUSH 10 ml Q8HR ROSY Administration Sodium Chloride 20 ml 04/23/24 10:16 05/19/24 05:24 Central Line Flush IV PUSH 20 ml PRN PRN Administration after blood draws Sodium Chloride 10 ml 05/04/24 14:15 Central Line Flush IV PUSH PRN PRN with TPN bag changes Sodium Chloride 20 ml 05/04/24 14:15 05/18/24 06:18 Central Line Flush IV PUSH 20 ml PRN PRN Administration after blood draws Radiology Results: ITS Impressions Chest/Abdomen/Pelvis CTA 04/22/24 18:10 IMPRESSION: Perforated viscus with a large amount of free air and fluid, with mural thickening in the distal stomach and multiple punctate foci of extraluminal air in this area for which site of perforation is suspected. Renal Ultrasound 04/24/24 11:58 IMPRESSION: Simple cyst in the left kidney upper pole. Other appearances are unremarkable. Lower Extremity CTA 05/02/24 16:36 IMPRESSION: 1. Scattered atherosclerotic plaque in the arteries of the left lower limb as detailed above without a discrete hemodynamic significant stenosis. Runoff below the ankle in the left posterior tibial artery this supplies the foot. Atretic distal peroneal and anterior tibial arteries with intraluminal contrast becoming indiscernible at the level of the ankle and with no appreciable contrast in the dorsalis pedis artery. Chest/Abdomen/Pelvis CT 05/08/24 10:43 IMPRESSION: Findings suggesting air and possible fluid extending from the lumen of the antrum of the stomach, with a small anterior collection, as detailed above. Repeat evaluation with Gastrografin via the gastrostomy would provide additional information. Upper GI Series 05/09/24 09:31 IMPRESSION: 1. Ulcer of the gastric antrum with contained extraluminal contrast similar to 04/28/2024. The extraluminal contrast distribution is worse than typically seen after Clarence patch repair. Abdomen CT 05/09/24 15:27 IMPRESSION: Redemonstration of a tract extending from the posterior superior margin of the antrum of the stomach only partially filled with oral contrast, perhaps demonstrating early healing. Abdomen/Pelvis CT 05/17/24 09:03 Impression: Persistent wall thickening of the gastric antrum/duodenum with surrounding haziness, compatible postoperative change. There is persistent irregular tract with small amount of fluid and external air extending from the gastric antrum superiorly/anteriorly, which could reflect abscess or persistent contained perforation. No extraluminal contrast seen, and no oral contrast seen within this collection. Intramuscular hematoma of the right iliopsoas and psoas major muscles, with additional irregular hematoma extending to the posterior right retroperitoneum. Bilateral fat-containing inguinal hernias. Small bilateral pleural effusions. Chest X-Ray 05/17/24 14:51 IMPRESSION: Left basilar atelectasis versus pneumonia. Clinical correlation advised. Labs Labs: Laboratory Tests 05/19/24 05:26 05/19/24 05:26 Calcium 7.8 L Magnesium 1.6 Total Bilirubin 0.7 AST 26 ALT 27 Alkaline Phosphatase 138 H Total Protein 6.0 L Albumin 2.5 L Microbiology 05/18/24 09:28 Blood Blood Culture - Preliminary 05/18/24 08:56 Blood Blood Culture - Preliminary Gram positive cocci cluster is
[2024-05-19 14:00] VITALS: BP 158/87; PULSE 93; RESP 18; TEMP 36.6; O2SAT 96
[2024-05-19] MEDS: droNABinol (*CRX) 2.5 MG CAPSULE PO (15:52)
[2024-05-19 20:08] VITALS: BP 171/66; PULSE 96; RESP 16; TEMP 37.2; O2SAT 99
[2024-05-19] MEDS: VANCOMYCIN 1,500 MG/NS 500 ML 1,500 MG/500 ML BAG 250 MG IVPB (22:21)
--- NOTE | 2024-05-20 | ECHOL_ITS ---
Patient Info Name: Ludin Menon Age: 78 years : 1945 Gender: Male Ht: 72 in Wt: 308 lbs BSA: 2.73 m2 HR: 87 bpm BP: 166 / 76 mmHg Technical Quality: Fair Exam Date: 05/20/2024 1:28 PM Exam Location: Echo Lab Patient Status: Inpatient Admit Date: 04/22/2024 Staff Ordering Physician: Joni Jon PA-C Chili Maker: Marcia Carolina RDCS Attending Provider: Joni Jon PA-C Referring Physician: Dontrell LACEY; Exam Type: CA echo limited Study Info Indications - Bacteremia Limited two-dimensional transthoracic echocardiogram is performed. Summary 1. Limited echocardiogram to assess for bacteremia. 2. There is moderate aortic valve sclerosis. 3. The mitral valve has mildly calcified annulus. Aortic Valve Limited echocardiogram to assess for bacteremia. The aortic valve is trileaflet. There is moderate aortic valve sclerosis. There is no aortic valve stenosis. There is no aortic valve regurgitation. No aortic valve vegetation visualized. Pulmonic Valve There is no pulmonic regurgitation. No pulmonic valve vegetation visualized. Mitral Valve The mitral valve has mildly calcified annulus. There is no mitral valve stenosis. There is no mitral valve regurgitation. No mitral valve vegetation visualized. Tricuspid Valve There is no tricuspid valve regurgitation. No tricuspid valve vegetation visualized. Report Signatures
[2024-05-20] MEDS: METOCLOPRAMIDE HCL INJ 10 MG/2 ML VIAL IV PUSH ×4 (00:56→17:19)
[2024-05-20] MEDS: metroNIDAZOLE 500 MG/ISO 100ML 500 MG/100 ML BAG 100 MG IVPB ×3 (00:56→16:12)
[2024-05-20] MEDS: CENTRAL LINE FLUSH 20 ML IV PUSH ×2 (04:57→21:25)
[2024-05-20 05:02] LABS: Hematocrit 27.1 % (42.0-52.0); Hemoglobin 8.2 g/dL (14.0-18.0); Mean Corpuscular HGB Conc 30.3 g/dl (32-36); Mean Corpuscular Hemoglobin 29.6 pg (26-34); Mean Corpuscular Volume 97.8 fl (80-100); Mean Platelet Volume 12.7 fl (7.4-10.4); Platelet Count Result 148 k/mm3 (150-375); Red Blood Count 2.77 M/mm3 (4.6-6.20); Red Cell Distribution Width 16.3 % (11.5-14.5); White Blood Count 22.7 K/mm3 (4.5-10.0)
[2024-05-20 05:12] LABS: Alanine Aminotransferase 23 U/L (6-50); Albumin Level 2.4 g/dL (3.5-5.1); Alkaline Phosphatase 141 U/L (38-126); Anion Gap 8 mmol/L (4-12); Aspartate Amino Transferase 23 U/L (17-59); Bilirubin,Total 0.7 mg/dL (0.2-1.3); Blood Urea Nitrogen 58 mg/dL (9-20); Calcium 7.6 mg/dL (8.4-10.2); Carbon Dioxide 19 mmol/L (22-30); Chloride 110 mmol/L (98-107); Estimated CRCL calculation 44 ml/min; Estimated Glomerular Filt Rate 36; Glucose 111 mg/dL (65-110); Potassium 4.1 mmol/L (3.4-5.0); Sodium 137 mmol/L (137-145)
[2024-05-20 05:24] LABS: Neutrophils Percent Manual 85 % (46-73); Total Cells Counted 100
[2024-05-20 05:25] LABS: Band Neutrophils Percent 7 % (0-6); Eosinophils Absolute Manual 0.22 K/mm3 (0.02-0.50); Eosinophils Percent Manual 1 % (0-4); Lymphocytes Percent Manual 4 % (18-44); Monocytes Absolute Manual 0.68 K/mm3 (0.1-0.90); Monocytes Percent Manual 3 % (3-9); Neutrophils Absolute Manual 20.88 K/mm3 (1.3-6.7)
[2024-05-20 05:26] LABS: Hypochromasia 1+; Ovalocytes 1+; Platelet Estimate Adequate (Adequate); Schistocytes None Seen
[2024-05-20] MEDS: ACETAMINOPHEN ELIXIR 325 MG/10.15 ML UDC 650 MG PO (05:31)
[2024-05-20] MEDS: BENZOCAINE/MENTHOL (*BKC) 18 EA LOZENGE 1 LOZENGE PO ×5 (05:31→19:41)
[2024-05-20] MEDS: CENTRAL LINE FLUSH 10 ML IV PUSH ×3 (05:31→21:07)
[2024-05-20 05:38] VITALS: BP 155/66; PULSE 90; RESP 16; TEMP 36.4; O2SAT 97
--- NOTE | 2024-05-20 07:04 | P.PNIM_ITS ---
Progress Note: A&P Assessment and Plan (1) Sepsis: Code(s): A41.9 - Sepsis, unspecified organism Status: Resolved Assessment and Plan: Meets SIRS criteria: Tachycardia, Febrile, Leukocytosis - lactic acid: 0.7 - suspected source: MRSA - blood cultures drawn on 05/18, MRSA + - UA: Cloudy, 1+ protein, otherwise unremarkable - Urine culture negative - CXR: Left basilar atelectasis versus pneumonia. Clinical correlation advised. - Continue IV Vancomycin, consult pharmacy to dose, Cefepime 2 gram IV q12H, and Flagyl - Repeat Blood cultures regularly - P.r.n. Tylenol, Zofran, and melatonin (2) MRSA (methicillin resistant staph aureus) culture positive: Code(s): Z22.322 - Carrier or suspected carrier of Methicillin resistant Staphylococcus aureus Status: Acute Assessment and Plan: - Nasal MRSA positive - Started on IV Vanc for sepsis, continue - Initiate Mupirocin ointment - Continue IV Abx, narrow coverage when necessary - Trend WBC (3) Bacteremia: Code(s): R78.81 - Bacteremia Status: Acute Assessment and Plan: * Resulted positive for MRSA * Continue IV antibiotics * Repeat BCs tomorrow (4) Hematoma: Code(s): T14.8XXA - Other injury of unspecified body region, initial encounter Status: Acute Assessment and Plan: * CT abdomen pelvis on 05/17/2024 shows: Intramuscular hematoma of the right iliopsoas and psoas major muscles, with additional irregular hematoma extending to the posterior right retroperitoneum. * Spoke with surgery likely noninfective * Lidocaine patch * Lovenox on hold, no recent found for therapeutic Lovenox, when patient was placed back on Lovenox likely benefit from the 40 mg (5) Pleural effusion: Code(s): J90 - Pleural effusion, not elsewhere classified Status: Acute Assessment and Plan: * Seen on CT * Chest x-ray dated compare * Likely due to 3rd spacing * Stable (6) Perforated abdominal viscus: Code(s): R19.8 - Other specified symptoms and signs involving the digestive system and abdomen Status: Acute Assessment and Plan: * Septic shock in setting of peritonitis with perforated gastric ulcer: * Shock has resolved * Status post exploratory laparotomy with repair of antral gastric ulcer with omental Clarence patch, open gastrostomy tube * CT of the abdomen: Redemonstration of a tract extending from the posterior superior margin of the antrum of the stomach only partially filled with oral contrast, perhaps demonstrating early healing. * Surgery is following, added Micafungin * Diet advanced to soft diet * CT abd/pelvis showed no intraabdominal abscess or new fluid collection, UA (-) for UTI. L (7) Pneumonia: Code(s): J18.9 - Pneumonia, unspecified organism Status: Acute Assessment and Plan: Improving * Encourage IS use * Cornet therapy * nebs PRN * 05/13 finished antibiotics * Currently on room air (8) Malnutrition following gastrointestinal surgery: Code(s): K91.2 - Postsurgical malabsorption, not elsewhere classified Status: Acute Assessment and Plan: * Passed swallow study. * Patient advanced to soft diet today per General surgery recommendation * Continue to encourage po intake * Bolus tube feeding via G tube * add reglan and Marinol (9) Acute kidney injury superimposed on stage 3b chronic kidney disease: Code(s): N17.9 - Acute kidney failure, unspecified; N18.32 - Chronic kidney disease, stage 3b Status: Acute Assessment and Plan: * baseline creatinine most likely around 1.5 * Nephrology following * Renal ultrasound was unremarkable for any acute issues. * Continue diuresis per Nephrology recommendations --Albumin/Lasix (10) Anemia: Code(s): D64.9 - Anemia, unspecified Status: Acute Assessment and Plan: Iron deficiency anemia on acute loss Stable * Trend CBC. * transfuse if hgb <7.0, or symptomatic * Iron replacement (11) HTN (hypertension): Code(s): I10 - Essential (primary) hypertension Status: Acute Assessment and Plan: Controlled * Continue Clonidine patch and Hydralazine PRN. * Trend BP (12) Generalized weakness: Code(s): R53.1 - Weakness Status: Acute Assessment and Plan: * PT/OT-maxi move use for transfer * Patient will likely need placement * No changes to current plan (13) Hypokalemia: Code(s): E87.6 - Hypokalemia Status: Acute Assessment and Plan: Improved * Trend labs * Replace as indicated (14) Hypernatremia: Code(s): E87.0 - Hyperosmolality and hypernatremia Status: Acute Assessment and Plan: Resolved Daily BMP Subjective Date/time seen: 05/20/24 07:04 Interval history: Follow-up for acute kidney injury/acute renal failure on chronic kidney disease. 05/20/2024 Patient is sitting comfortably in bed at time of examination. Pt denies any chest pain, shortness of breath, n/v, or abdominal pain at this time. He does state that he feels as though he lost his voice . Speech therapy will be consulted. Blood cultures resulted positive for MRSA infection. Will plan on continuing IV antibiotics, including Vancomycin, Flagyl, Cefepime and Micafungin. Will obtain repeat blood cultures to assess efficacy of antibiotic therapy. Limited Echo Study obtained which showed There is moderate aortic valve sclerosis and mitral valve has mildly calcified annulus. Review of Systems Review of Systems: 12 systems were reviewed and are negativ e except for as per HPI. All systems reviewed & are unremarkable except as noted in HPI and below Exam Narrative: General: Ill appearing, appears stated age. HEENT: normocephalic, atraumatic. Mucous membranes moist. EOMI, PERRLA, bilateral sclera anicteric, no conjunctival injection. Neck supple without JVD, lymphadenopathy, or bruit. Respiratory: clear to ascultation bilaterally. No rales/rhonic/wheezes. Cardiovascular: Regular rate and rhythm, normal S1-S2 upon ascultation. No murmurs, rubs, or clicks. PMI is nondisplaced, capillary refill less than 3 second. Abdomen: Soft, round, no pulsatile masses, nondistended and nontender. No rebound, no guarding. No CVA tenderness, no hepatosplenomegaly. Bowel sounds present to all four quadrants. No high pitch or tinkling sounds, resonant to percussion. Extremities: 2+ edema to both LE. No cyanosis, clubbing present. Pulses are palpable 2/2. Active ROM to all four extremities. Neuro: Alert and orientated x 4. PERRLA. Cranial nerves 2-12 intact without focal deficit. Skin: Warm, dry, and intact, without rash, erythema, or lesion. Psych: pleasant, cooperative, normal speech, normal affect, no hallucinations, no dysarthia Skin: PEG tube, ELSA drain x2 in place, midline incision well approximated without redness or drainage. Const: General: comfortable, no acute distress and uncomfortable Other: Acutely ill-appearing, obese HENMT: Other: Mucous membranes are dry, head is normocephalic atraumatic, few missing teeth, bridge in the lower jaw Eyes: Other: Pupils are equal and reactive, no scleral icterus Neck: Other: No JVD, trachea midline Resp: Effort & Inspection: normal respiratory effort Auscultation: clear to auscultation bilaterally and diminished lung sounds Other: Cardio: Rate: regular rate Rhythm: regular rhythm Other: Telemetry SR 85. GI: Auscultation: normal bowel sounds Other: Gastrostomy tube in place with dry gauze dressing and skin around the G-tube without erythema or drainage. Incision dry with steri strips intact, no erythema. Slightly distended. : Other: Bowman catheter in place was a small amount of turbid yellow urine Urinary Catheter: Urinary Catheter: patent and draining Skin: Other: Generally cold to touch, 2nd cap refill, fingers and toes are cyanotic Neuro: Speech: normal speech Other: Patient is sedated, pupils are reactive, equal Extrem: General: pedal edema bilaterally 2+ Other: 1+PP bilateral feet are warm. Psych: Mental Status: mental status grossly normal Affect: normal affect Other: Unable to assess due to patient condition Objective Data Vital Signs Vital Signs: Vital Signs - 24 hr 05/19/24 08:38 05/19/24 14:00 05/19/24 20:00 Temperature 97.9 F Pulse Rate 93 Respiratory Rate 18 18 Blood Pressure 158/87 H Pulse Oximetry 99 96 Oxygen Delivery Room Air Room Air Fraction of Inspired Oxygen 21 05/19/24 20:08 05/20/24 05:38 Temperature 98.9 F 97.6 F Pulse Rate 96 90 Respiratory Rate 16 16 Blood Pressure 171/66 H 155/66 H Pulse Oximetry 99 97 Oxygen Delivery Fraction of Inspired Oxygen Intake/Output Intake/Output: Intake & Output 05/17/24 05/18/24 05/19/24 05/20/24 23:59 23:59 23:59 23:59 Intake Total 900 4672.2 4691.3 800 Output Total 2350 4365 700 620 Balance -1450 307.2 3991.3 180 Meds/Results Medications: Active Medications Generic Name Dose Route Start Last Admin Trade Name Freq PRN Reason Stop Dose Admin Acetaminophen 650 mg 04/26/24 22:19 04/26/24 22:57 Acetaminophen 650 Mg Suppository RECTAL 650 mg Q6H PRN Administration Mild Pain (1-3) or Fever Acetaminophen 650 mg 05/05/24 10:27 05/20/24 05:31 Acetaminophen Elixir 325 Mg/10.15 Ml Udc PO 650 mg Q6H PRN Administration Mild Pain (1-3) or Fever Artificial Tears 1 drop 04/27/24 08:37 Artificial Tears Ophth Soln 15 Ml Bottle EACH EYE QID PRN Dry Eye(s) Atorvastatin Calcium 20 mg 04/30/24 09:00 Atorvastatin 20 Mg Tablet BY MOUTH DAILY ROSY Benzocaine 1 lozenge 05/15/24 15:35 05/20/24 05:31 Benzocaine/Menthol (*Bkc) 18 Ea Lozenge PO 1 lozenge PRN PRN Administration Sore Throat Calcium Carbonate 500 mg 05/19/24 08:00 05/19/24 08:07 Calcium/Vitamin D 500 Mg/5 Mcg (200 I.U.) Tablet PO 500 mg DAILY@0800 ROSY Administration Clonidine HCl 1 patch 05/01/24 09:00 05/15/24 08:47 Clonidine 0.1 Mg/24 Hr Patch TRANSDERM 1 patch WEEKLY ROSY Administration Dextrose 12.5 gm 04/22/24 23:06 Dextrose 50% 25 Gm/50 Ml Syringe IV PUSH PRN PRN Hypoglycemia Protocol Dronabinol 2.5 mg 05/17/24 16:30 05/19/24 15:52 Dronabinol (*Crx) 2.5 Mg Capsule PO 2.5 mg DAILY@1630 ROSY Administration Enoxaparin Sodium 120 mg 05/09/24 06:00 05/17/24 05:05 Enoxaparin 120 Mg/0.8 Ml Syringe SUB-Q 120 mg Q24H ROSY Administration Epoetin Olu-epbx 10,000 units 05/14/24 11:05 05/19/24 08:07 Epoetin Olu-Epbx 10,000 Units/Ml Vial SUB-Q 10,000 units TUTHSA@09 ROSY Administration Glucagon 1 mg 04/22/24 23:06 Glucagon For Inj 1 Mg Vial IM PRN PRN Hypoglycemia Protocol Glucose 15 gm 04/22/24 23:06 Glucose Oral Gel 15 Gm Of Glucse In 37.5 Gm Tube PO PRN PRN Hypoglycemia Protocol Guaifenesin/Dextromethorphan 10 ml 05/15/24 10:07 05/19/24 21:04 Guaifenesin/Dextromethorphan 10 Ml Udc PO 10 ml Q4H PRN Administration Cough Hydralazine HCl 10 mg 04/25/24 08:00 05/03/24 21:47 Hydralazine Hcl 20 Mg/Ml Vial IV PUSH 10 mg Q4H PRN Administration Blood Pressure - High Dextrose 1,000 mls @ 100 mls/hr 04/22/24 23:06 Dextrose 5% 1,000 Ml IVPB PRN PRN Hypoglycemia Protocol Sodium Chloride 1,000 mls @ 125 mls/hr 05/18/24 07:55 05/19/24 22:37 Normal Saline Iv IV CONT 125 mls/hr .Q8H ORSY Administration Cefepime HCl 2 gm in 50 mls @ 100 mls/hr 05/18/24 09:00 05/19/24 21:33 Maxipime 2 Gm/Ns 50 Ml IVPB Infused Q12HR ROSY Infusion Vancomycin HCl 1,500 mg in 500 mls @ 250 mls/hr 05/19/24 22:00 05/20/24 01:21 Vancomycin 1,500 Mg/Ns 500 Ml IVPB Infused Q36H ROSY Infusion Metronidazole 500 mg in 100 mls @ 100 mls/hr 05/18/24 09:00 05/20/24 00:56 Flagyl 500 Mg/Iso Soln 100 Ml IVPB 100 mls/hr Q8H ROSY Administration Micafungin Sodium 100 mg/ 100 mls @ 100 mls/hr 05/18/24 09:00 05/19/24 09:36 Sodium Chloride IVPB Infused DAILY ROSY Infusion Ipratropium Logan 0.5 mg 05/04/24 09:32 05/17/24 10:11 Ipratropium Br 0.02% Inh Soln 0.5 Mg/2.5 Ml Vial INHALATION 0.5 mg Q6HRT PRN Administration Shortness Of Breath Levalbuterol HCl 0.63 mg 05/04/24 09:32 05/17/24 10:11 Levalbuterol Neb 1.25 Mg/3 Ml INHALATION 0.63 mg Q6HRT PRN Administration Shortness Of Breath Lidocaine 1 patch 05/18/24 09:00 05/19/24 08:12 Lidocaine 5% Patch TRANSDERM 1 patch DAILY ROSY Administration Lorazepam 0.5 mg 05/16/24 13:48 05/17/24 23:07 Lorazepam (*Crx) 0.5 Mg Tablet PO 0.5 mg Q6H PRN Administration Anxiety Metoclopramide HCl 10 mg 05/16/24 18:00 05/20/24 05:30 Metoclopramide Hcl Inj 10 Mg/2 Ml Vial IV PUSH 10 mg Q6HR ROSY Administration Morphine Sulfate 4 mg 04/22/24 22:02 05/18/24 16:09 Morphine Sulfate (*Crx) 4 Mg/Ml Inj IV PUSH 4 mg Q3H PRN Administration Pain Rated 7-10 Ondansetron HCl 4 mg 05/13/24 11:22 05/15/24 12:53 Ondansetron Inj 4 Mg/2 Ml Vial IV PUSH 4 mg Q6H PRN Administration Nausea And Vomiting Pantoprazole Sodium 40 mg 04/26/24 21:00 05/19/24 21:03 Pantoprazole Sodium Iv 40 Mg Vial IV PUSH 40 mg Q12HR ROSY Administration Sodium Chloride 10 ml 04/23/24 14:00 05/20/24 05:31 Central Line Flush IV PUSH 10 ml Q8HR ROSY Administration Sodium Chloride 20 ml 04/23/24 10:16 05/20/24 04:57 Central Line Flush IV PUSH 20 ml PRN PRN Administration after blood draws Sodium Chloride 10 ml 05/04/24 14:15 Central Line Flush IV PUSH PRN PRN with TPN bag changes Sodium Chloride 20 ml 05/04/24 14:15 05/18/24 06:18 Central Line Flush IV PUSH 20 ml PRN PRN Administration after blood draws Radiology Results: ITS Impressions Chest/Abdomen/Pelvis CTA 04/22/24 18:10 IMPRESSION: Perforated viscus with a large amount of free air and fluid, with mural thickening in the distal stomach and multiple punctate foci of extraluminal air in this area for which site of perforation is suspected. Renal Ultrasound 04/24/24 11:58 IMPRESSION: Simple cyst in the left kidney upper pole. Other appearances are unremarkable. Lower Extremity CTA 05/02/24 16:36 IMPRESSION: 1. Scattered atherosclerotic plaque in the arteries of the left lower limb as detailed above without a discrete hemodynamic significant stenosis. Runoff below the ankle in the left posterior tibial artery this supplies the foot. Atretic distal peroneal and anterior tibial arteries with intraluminal contrast becoming indiscernible at the level of the ankle and with no appreciable contrast in the dorsalis pedis artery. Chest/Abdomen/Pelvis CT 05/08/24 10:43 IMPRESSION: Findings suggesting air and possible fluid extending from the lumen of the antrum of the stomach, with a small anterior collection, as detailed above. Repeat evaluation with Gastrografin via the gastrostomy would provide additional information. Upper GI Series 05/09/24 09:31 IMPRESSION: 1. Ulcer of the gastric antrum with contained extraluminal contrast similar to 04/28/2024. The extraluminal contrast distribution is worse than typically seen after Clarence patch repair. Abdomen CT 05/09/24 15:27 IMPRESSION: Redemonstration of a tract extending from the posterior superior margin of the antrum of the stomach only partially filled with oral contrast, perhaps demonstrating early healing. Abdomen/Pelvis CT 05/17/24 09:03 Impression: Persistent wall thickening of the gastric antrum/duodenum with surrounding haziness, compatible postoperative change. There is persistent irregular tract with small amount of fluid and external air extending from the gastric antrum superiorly/anteriorly, which could reflect abscess or persistent contained perforation. No extraluminal contrast seen, and no oral contrast seen within this collection. Intramuscular hematoma of the right iliopsoas and psoas major muscles, with additional irregular hematoma extending to the posterior right retroperitoneum. Bilateral fat-containing inguinal hernias. Small bilateral pleural effusions. Chest X-Ray 05/17/24 14:51 IMPRESSION: Left basilar atelectasis versus pneumonia. Clinical correlation advised. Labs Labs: Laboratory Results - last 24 hr 05/19/24 05/20/24 05:26 04:55 WBC 22.3 H 22.7 H RBC 2.76 L 2.77 L Hgb 8.3 L 8.2 L Hct 26.8 L 27.1 L MCV 97.1 97.8 MCH 30.1 29.6 MCHC 31.0 L 30.3 L RDW 16.4 H 16.3 H Plt Count 146 L 148 L MPV 13.3 H 12.7 H Immature Gran % (Auto) Not Reportable Not Reportable Neut % (Auto) Not Reportable Not Reportable Lymph % (Auto) Not Reportable Not Reportable Dyer % (Auto) Not Reportable Not Reportable Eos % (Auto) Not Reportable Not Reportable Baso % (Auto) Not Reportable Not Reportable Lymph # (Auto) Not Reportable Not Reportable Dyer # (Auto) Not Reportable Not Reportable Eos # (Auto) Not Reportable Not Reportable Baso # (Auto) Not Reportable Not Reportable Abs Immat Gran (auto) Not Reportable Not Reportable Absolute Neuts (auto) Not Reportable Not Reportable Absolute Nucleated RBC Not Reportable Not Reportable Total Counted 100 100 Neutrophils % (Manual) 88 H 85 H Band Neutrophils % 11 H 7 H Lymphocytes % (Manual) 4 L Monocytes % (Manual) 3 Eosinophils % (Manual) 1 1 Nucleated RBC % Not Reportable Not Reportable Abs Neuts (Manual) 22.07 H 20.88 H Abs Lymphs (Manual) 0.90 L Abs Monocytes (Manual) 0.68 Absolute Eos (Manual) 0.22 0.22 Platelet Estimate Slightly decreased Adequate % Immature Plt Fraction 9.0 Hypochromasia 1+ Anisocytosis 1+ Ovalocytes 1+ Schistocytes None seen None seen Sodium 137 Potassium 4.1 Chloride 110 H Carbon Dioxide 19 L Anion Gap 8 BUN 58 H Creatinine 1.84 H Estim Creat Clear Calc 44 Estimated GFR 36 L Glucose 111 H Calcium 7.6 L Total Bilirubin 0.7 AST 23 ALT 23 Alkaline Phosphatase 141 H Total Protein 6.0 L Albumin 2.4 L Quality VTE Prophylaxis VTE prophylaxis: mechanical ordered and pharmacologic ordered
[2024-05-20] MEDS: CALCIUM/VITAMIN D 500 MG/5 MCG (200 I.U.) TABLET PO (08:33)
[2024-05-20 09:00] VITALS: BP 166/76; PULSE 86; RESP 19; TEMP 36.1; O2SAT 97
--- NOTE | 2024-05-20 09:48 | P.PNNP_ITS ---
Progress Note: A&P Assessment and Plan (1) Acute kidney injury: Code(s): N17.9 - Acute kidney failure, unspecified Status: Acute Assessment and Plan: * better by recent labs * had improved to baseline (1.5mg/dl) on 04/30 * then georgette to the low 4ish range * suspect initial insult to be of multifactorial etiology: * NSAID use * hypotension/hemodynmic instability/shock * sepsis/infection * third spacing * evaluation to date: * CT shows normal kidneys * renal u/s with simple cyst x 1 o/w unremarkable. * urine electrolytes are prerenal * CPK mildly elevated (but not enough to affect kidneys) * urine eosinophils negative * mild proteinuria * another acute insult noted by recent labs (since 05/02): * possible due to pre-renal factors, infection (UTI +/- pneumonia versus gastric leak) * recent imaging noted - no evidence of gastric leak * repeat urine studies (on 05/08) suggestive of UTI and prerenal azotemia * despite prerenal urine electrolytes, he has evidence of volume overload * suspect related to 3rd spacing and hypoalbuminemia * recent echocardiogram shows good LV function and no pulmonary hypertension * good diuresis/UOP with IV albumin and IV lasix x 3 doses * follow trend of urine output without diuretic therapy * follow trend of repeat labs and UOP (2) Stage 3b chronic kidney disease: Code(s): N18.32 - Chronic kidney disease, stage 3b Status: Chronic Assessment and Plan: * creatinine ~ 1.5mg/dl in November 2023 * suspect secondary to hypertension, peripheral vascular disease, and possibly chronic NSAID use as well as age-related change (3) Bacteremia: Code(s): R78.81 - Bacteremia Status: Acute Assessment and Plan: * blood cultures with MRSA * continue IV antibiotics * follow repeat blood cultures * source? (4) Perforated gastric ulcer: Onset Date: 04/2024 Qualifiers: Gastric ulcer chronicity: acute Qualified Code(s): K25.1 - Acute gastric ulcer with perforation Code(s): K25.5 - Chronic or unspecified gastric ulcer with perforation Status: Acute Assessment and Plan: * suspect secondary to NSAID use * s/p exploratory laparotomy and repair of antral gastric ulcer with omental Clarence patch and placement of open gastrostomy tube (on 04/22) * TPN discontinued * bolus G-tube feedings with meals; continue oral feeding * General Surgery following (5) Hematoma: Code(s): T14.8XXA - Other injury of unspecified body region, initial encounter Status: Acute Assessment and Plan: * as noted by CT abdomen pelvis on 05/17/2024 * likely a contributing component to anemia * Lovenox on hold (6) Anemia: Code(s): D64.9 - Anemia, unspecified Status: Acute Assessment and Plan: * noted acute drop (on 05/10, 05/11, and 05/12) requiring blood transfusion * due to RIC, CKD, and acute illness along with CT scan findings on 05/17: * Intramuscular hematoma of the right iliopsoas and psoas major muscles, with additional irregular hematoma extending to the posterior right retroperitoneum * anemia studies also note iron deficiency * PRBC transfusion per protocol * on Epogen 3x/week (7) PAD (peripheral artery disease): Code(s): I73.9 - Peripheral vascular disease, unspecified Status: Acute Assessment and Plan: * CTA of left lower extremity noted * suspect acute on chronic issue * was on anticoagulation but on hold due to #5 (8) Malnutrition following gastrointestinal surgery: Code(s): K91.2 - Postsurgical malabsorption, not elsewhere classified Status: Chronic Assessment and Plan: * off TPN * tube feeds ongoing with boluses * attempting to transition to oral intake (but poor appetite noted) * on appetite stimulant (9) HTN (hypertension): Code(s): I10 - Essential (primary) hypertension Status: Acute Assessment and Plan: * reasonable control * follow trend of hemodynamics (10) Generalized weakness: Code(s): R53.1 - Weakness Status: Acute Assessment and Plan: * multifactorial * PT/OT as tolerated Will continue to follow. L Subjective Date/time seen: 05/20/24 09:48 Interval history: Follow-up for acute kidney injury/acute renal failure on chronic kidney disease. Renal function/creatinine continues to improve with reasonable urine output; no apparent distress noted at the time of my visit although he reports that he has lost his voice -- remains on antibiotic therapy for postiive blood cultures/bacteremia; recent Echo results noted (no evidence of vegetations); no acute issues/evetns overnight or earlier this morning. Exam 2 Narrative: General: elderly but WD/WN male in NAD Heart: normal S1 and S2; no rub Lungs: clear anteriorly; decreased at bases Abdomen: soft, nontender; some bowel sounds; +G-tube Extremities: no cyanosis or clubbing; 1+ edema Skin: warm and dry Objective Data Vital Signs Vital Signs: Vital Signs Temp Pulse Resp BP Pulse Ox O2 Del Method 05/20/24 09:00 97.0 F L 86 19 166/76 H 97 05/20/24 08:30 Room Air 05/20/24 05:38 97.6 F 90 16 155/66 H 97 05/19/24 20:08 98.9 F 96 16 171/66 H 99 05/19/24 20:00 Room Air Intake/Output Intake/Output: Intake & Output 05/17/24 05/18/24 05/19/24 05/20/24 23:59 23:59 23:59 23:59 Intake Total 900 4672.2 4691.3 1050 Output Total 2350 4365 700 1020 Balance -1450 307.2 3991.3 30 Meds/Results Medications: Active Medications Generic Name Dose Route Start Last Admin Trade Name Freq PRN Reason Stop Dose Admin Acetaminophen 650 mg 04/26/24 22:19 04/26/24 22:57 Acetaminophen 650 Mg Suppository RECTAL 650 mg Q6H PRN Administration Mild Pain (1-3) or Fever Acetaminophen 650 mg 05/05/24 10:27 05/20/24 05:31 Acetaminophen Elixir 325 Mg/10.15 Ml Udc PO 650 mg Q6H PRN Administration Mild Pain (1-3) or Fever Artificial Tears 1 drop 04/27/24 08:37 Artificial Tears Ophth Soln 15 Ml Bottle EACH EYE QID PRN Dry Eye(s) Atorvastatin Calcium 20 mg 04/30/24 09:00 Atorvastatin 20 Mg Tablet BY MOUTH DAILY ROSY Benzocaine 1 lozenge 05/15/24 15:35 05/20/24 14:00 Benzocaine/Menthol (*Bkc) 18 Ea Lozenge PO 1 lozenge PRN PRN Administration Sore Throat Calcium Carbonate 500 mg 05/19/24 08:00 05/20/24 08:33 Calcium/Vitamin D 500 Mg/5 Mcg (200 I.U.) Tablet PO 500 mg DAILY@0800 ROSY Administration Clonidine HCl 1 patch 05/01/24 09:00 05/15/24 08:47 Clonidine 0.1 Mg/24 Hr Patch TRANSDERM 1 patch WEEKLY ROSY Administration Dextrose 12.5 gm 04/22/24 23:06 Dextrose 50% 25 Gm/50 Ml Syringe IV PUSH PRN PRN Hypoglycemia Protocol Dronabinol 2.5 mg 05/17/24 16:30 05/19/24 15:52 Dronabinol (*Crx) 2.5 Mg Capsule PO 2.5 mg DAILY@1630 ROSY Administration Enoxaparin Sodium 120 mg 05/09/24 06:00 05/17/24 05:05 Enoxaparin 120 Mg/0.8 Ml Syringe SUB-Q 120 mg Q24H ROSY Administration Epoetin Olu-epbx 10,000 units 05/14/24 11:05 05/19/24 08:07 Epoetin Olu-Epbx 10,000 Units/Ml Vial SUB-Q 10,000 units TUTHSA@09 ROSY Administration Glucagon 1 mg 04/22/24 23:06 Glucagon For Inj 1 Mg Vial IM PRN PRN Hypoglycemia Protocol Glucose 15 gm 04/22/24 23:06 Glucose Oral Gel 15 Gm Of Glucse In 37.5 Gm Tube PO PRN PRN Hypoglycemia Protocol Guaifenesin/Dextromethorphan 10 ml 05/15/24 10:07 05/19/24 21:04 Guaifenesin/Dextromethorphan 10 Ml Udc PO 10 ml Q4H PRN Administration Cough Hydralazine HCl 10 mg 04/25/24 08:00 05/03/24 21:47 Hydralazine Hcl 20 Mg/Ml Vial IV PUSH 10 mg Q4H PRN Administration Blood Pressure - High Dextrose 1,000 mls @ 100 mls/hr 04/22/24 23:06 Dextrose 5% 1,000 Ml IVPB PRN PRN Hypoglycemia Protocol Sodium Chloride 1,000 mls @ 125 mls/hr 05/18/24 07:55 05/19/24 22:37 Normal Saline Iv IV CONT 125 mls/hr .Q8H ROSY Administration Cefepime HCl 2 gm in 50 mls @ 100 mls/hr 05/18/24 09:00 05/20/24 11:07 Maxipime 2 Gm/Ns 50 Ml IVPB Infused Q12HR ROSY Infusion Metronidazole 500 mg in 100 mls @ 100 mls/hr 05/18/24 09:00 05/20/24 13:45 Flagyl 500 Mg/Iso Soln 100 Ml IVPB Infused Q8H ROSY Infusion Micafungin Sodium 100 mg/ 100 mls @ 100 mls/hr 05/18/24 09:00 05/20/24 13:49 Sodium Chloride IVPB 100 mls/hr DAILY ROSY Administration Vancomycin HCl 1,500 mg in 500 mls @ 250 mls/hr 05/20/24 22:00 Vancomycin 1,500 Mg/Ns 500 Ml IVPB Q24H ROSY Ipratropium [place] 0.5 mg 05/04/24 09:32 05/17/24 10:11 Ipratropium Br 0.02% Inh Soln 0.5 Mg/2.5 Ml Vial INHALATION 0.5 mg Q6HRT PRN Administration Shortness Of Breath Levalbuterol HCl 0.63 mg 05/04/24 09:32 05/17/24 10:11 Levalbuterol Neb 1.25 Mg/3 Ml INHALATION 0.63 mg Q6HRT PRN Administration Shortness Of Breath Lidocaine 1 patch 05/18/24 09:00 05/20/24 10:39 Lidocaine 5% Patch TRANSDERM 1 patch DAILY ROSY Administration Lisinopril 40 mg 05/20/24 15:05 Lisinopril 20 Mg Tablet BY MOUTH DAILY ROSY Lorazepam 0.5 mg 05/16/24 13:48 05/17/24 23:07 Lorazepam (*Crx) 0.5 Mg Tablet PO 0.5 mg Q6H PRN Administration Anxiety Metoclopramide HCl 10 mg 05/16/24 18:00 05/20/24 11:53 Metoclopramide Hcl Inj 10 Mg/2 Ml Vial IV PUSH 10 mg Q6HR ROSY Administration Miscellaneous Information 0 each 05/20/24 00:01 Please Renew Morphine- 10 Day Stop For Narcotic XX 06/19/24 00:00 [facility] Morphine Sulfate 4 mg 04/22/24 22:02 05/18/24 16:09 Morphine Sulfate (*Crx) 4 Mg/Ml Inj IV PUSH 4 mg Q3H PRN Administration Pain Rated 7-10 Ondansetron HCl 4 mg 05/13/24 11:22 05/15/24 12:53 Ondansetron Inj 4 Mg/2 Ml Vial IV PUSH 4 mg Q6H PRN Administration Nausea And Vomiting Pantoprazole Sodium 40 mg 04/26/24 21:00 05/20/24 10:38 Pantoprazole Sodium Iv 40 Mg Vial IV PUSH 40 mg Q12HR ROSY Administration Perflutren Lipid Microsphere 0 ml 05/20/24 11:44 Perflutren Lipid Microspheres 1.5 Ml Vial Diluted To 10 Ml Total Volume IV PUSH 05/23/24 11:44 ONCE PRN adequate visualization Protocol Perflutren Lipid Microsphere 0 ml 05/20/24 12:16 Perflutren Lipid Microspheres 1.5 Ml Vial Diluted To 10 Ml Total Volume IV PUSH 05/23/24 12:16 ONCE PRN adequate visualization Protocol Sodium Chloride 10 ml 04/23/24 14:00 05/20/24 13:50 Central Line Flush IV PUSH 10 ml Q8HR ROSY Administration Sodium Chloride 20 ml 04/23/24 10:16 05/20/24 04:57 Central Line Flush IV PUSH 20 ml PRN PRN Administration after blood draws Sodium Chloride 10 ml 05/04/24 14:15 Central Line Flush IV PUSH PRN PRN with TPN bag changes Sodium Chloride 20 ml 05/04/24 14:15 05/18/24 06:18 Central Line Flush IV PUSH 20 ml PRN PRN Administration after blood draws Radiology Results: ITS Impressions Chest/Abdomen/Pelvis CTA 04/22/24 18:10 IMPRESSION: Perforated viscus with a large amount of free air and fluid, with mural thickening in the distal stomach and multiple punctate foci of extraluminal air in this area for which site of perforation is suspected. Renal Ultrasound 04/24/24 11:58 IMPRESSION: Simple cyst in the left kidney upper pole. Other appearances are unremarkable. Lower Extremity CTA 05/02/24 16:36 IMPRESSION: 1. Scattered atherosclerotic plaque in the arteries of the left lower limb as detailed above without a discrete hemodynamic significant stenosis. Runoff below the ankle in the left posterior tibial artery this supplies the foot. Atretic distal peroneal and anterior tibial arteries with intraluminal contrast becoming indiscernible at the level of the ankle and with no appreciable contrast in the dorsalis pedis artery. Chest/Abdomen/Pelvis CT 05/08/24 10:43 IMPRESSION: Findings suggesting air and possible fluid extending from the lumen of the antrum of the stomach, with a small anterior collection, as detailed above. Repeat evaluation with Gastrografin via the gastrostomy would provide additional information. Upper GI Series 05/09/24 09:31 IMPRESSION: 1. Ulcer of the gastric antrum with contained extraluminal contrast similar to 04/28/2024. The extraluminal contrast distribution is worse than typically seen after Clarence patch repair. Abdomen CT 05/09/24 15:27 IMPRESSION: Redemonstration of a tract extending from the posterior superior margin of the antrum of the stomach only partially filled with oral contrast, perhaps demonstrating early healing. Abdomen/Pelvis CT 05/17/24 09:03 Impression: Persistent wall thickening of the gastric antrum/duodenum with surrounding haziness, compatible postoperative change. There is persistent irregular tract with small amount of fluid and external air extending from the gastric antrum superiorly/anteriorly, which could reflect abscess or persistent contained perforation. No extraluminal contrast seen, and no oral contrast seen within this collection. Intramuscular hematoma of the right iliopsoas and psoas major muscles, with additional irregular hematoma extending to the posterior right retroperitoneum. Bilateral fat-containing inguinal hernias. Small bilateral pleural effusions. Chest X-Ray 05/17/24 14:51 IMPRESSION: Left basilar atelectasis versus pneumonia. Clinical correlation advised. Labs Labs: Laboratory Tests 05/20/24 04:55 05/20/24 04:55 Calcium 7.6 L Total Bilirubin 0.7 AST 23 ALT 23 Alkaline Phosphatase 141 H Total Protein 6.0 L Albumin 2.4 L Microbiology 05/18/24 08:56 Blood Blood Culture - Preliminary Methicillin Resis Staph Aureus 05/18/24 09:28 Blood Blood Culture - Preliminary Gram positive cocci cluster is 05/18/24 09:03 Urine - Urine odom port Urine Culture - Final
--- NOTE | 2024-05-20 10:05 | P.PN_ITS ---
Progress Note: A&P Assessment and Plan (1) Perforated gastric ulcer: Onset Date: 04/2024 Qualifiers: Gastric ulcer chronicity: acute Qualified Code(s): K25.1 - Acute gastric ulcer with perforation Code(s): K25.5 - Chronic or unspecified gastric ulcer with perforation Status: Acute Assessment and Plan: Status post repair with omental patch. No evidence of leaking from the repair. He has been tolerating small amounts of oral diet but is not eating much because of no appetite. Marinol has not helped much. He is getting supplemental bolus tube feeds per his G-tube when he does not eat much with his meals. He is getting that b.i.d. right now. Midline incision seems to be healing well. (2) Malnutrition following gastrointestinal surgery: Code(s): K91.2 - Postsurgical malabsorption, not elsewhere classified Status: Acute Assessment and Plan: Not taking much calories p.o.. We are supplementing with bolus tube feeds per his G-tube. Will need to increase to 3 times a day bolus feedings. Discussed with almond paste mixer and she will write orders for the appropriate volume and type of to feed formula. Albumin is around 2.4. Hopefully this will increase with or regular scheduled bolus tube feeds. He is having bowel movements and GI tract is functioning. (3) Acute kidney injury superimposed on stage 3b chronic kidney disease: Code(s): N17.9 - Acute kidney failure, unspecified; N18.32 - Chronic kidney disease, stage 3b Status: Acute Assessment and Plan: Creatinine is down to 1.8. Near his baseline. BUN is decreasing as well. Urine output is good. (4) MRSA (methicillin resistant staph aureus) culture positive: Code(s): Z22.322 - Carrier or suspected carrier of Methicillin resistant Staphylococcus aureus Status: Acute Assessment and Plan: Blood culture showed Gram-positive cocci and clusters. Likely represents MRSA. Right now he is on cefepime, micafungin, vancomycin, and Flagyl. As his white blood cell count comes down will then try to narrow his antibiotic coverage. Continue for now. Subjective Date/time seen: 05/20/24 10:05 Interval history: Patient just woke up this morning. Not mobilizing very well now. Does not have much of an appetite despite being started on Marinol. We are supplementing p.o. intake with bolus tube feeds through his G-tube. White blood count is down 22,000 today. Blood cultures show Gram-positive cocci in both the aerobic and anaerobic cultures. Certainly could be MRSA. He is on cefepime, micafungin, Flagyl, and vancomycin. As per Nutrition as he is not eating very much of his solid food diet. Renal function is improving. Creatinine is down to 1.8. BUN is down to 50s. Good urine output. Albumin is still low at 2.4. Exam GI: Other: The abdomen is obese but soft. Minimal distention. G-tube site is clean. G- tube is in place. Right upper quadrant ELSA drain it site is clean. Output is minimal. Midline incision is healing well without any redness or drainage. No incisional hernia. Steri-Strips are still in place. Extrem: Other: 2+ pitting lower extremity edema. Left lower extremity is warm. Objective Data Vital Signs Vital Signs: Vital Signs - 24 hr 05/19/24 14:00 05/19/24 20:00 05/19/24 20:08 Temperature 36.6 C 37.2 C Pulse Rate 93 96 Respiratory Rate 18 16 Blood Pressure 158/87 H 171/66 H Pulse Oximetry 96 99 Oxygen Delivery Room Air 05/20/24 05:38 05/20/24 09:00 Temperature 36.4 C 36.1 C L Pulse Rate 90 86 Respiratory Rate 16 19 Blood Pressure 155/66 H 166/76 H Pulse Oximetry 97 97 Oxygen Delivery Intake/Output Intake/Output: Intake & Output 05/17/24 05/18/24 05/19/24 05/20/24 23:59 23:59 23:59 23:59 Intake Total 900 4672.2 4691.3 800 Output Total 2350 4365 700 620 Balance -1450 307.2 3991.3 180 Meds/Results Medications: Active Medications Generic Name Dose Route Start Last Admin Trade Name Freq PRN Reason Stop Dose Admin Acetaminophen 650 mg 04/26/24 22:19 04/26/24 22:57 Acetaminophen 650 Mg Suppository RECTAL 650 mg Q6H PRN Administration Mild Pain (1-3) or Fever Acetaminophen 650 mg 05/05/24 10:27 05/20/24 05:31 Acetaminophen Elixir 325 Mg/10.15 Ml Udc PO 650 mg Q6H PRN Administration Mild Pain (1-3) or Fever Artificial Tears 1 drop 04/27/24 08:37 Artificial Tears Ophth Soln 15 Ml Bottle EACH EYE QID PRN Dry Eye(s) Atorvastatin Calcium 20 mg 04/30/24 09:00 Atorvastatin 20 Mg Tablet BY MOUTH DAILY ROSY Benzocaine 1 lozenge 05/15/24 15:35 05/20/24 05:31 Benzocaine/Menthol (*Bkc) 18 Ea Lozenge PO 1 lozenge PRN PRN Administration Sore Throat Calcium Carbonate 500 mg 05/19/24 08:00 05/20/24 08:33 Calcium/Vitamin D 500 Mg/5 Mcg (200 I.U.) Tablet PO 500 mg DAILY@0800 [facility] Administration Clonidine HCl 1 patch 05/01/24 09:00 05/15/24 08:47 Clonidine 0.1 Mg/24 Hr Patch TRANSDERM 1 patch WEEKLY ROSY Administration Dextrose 12.5 gm 04/22/24 23:06 Dextrose 50% 25 Gm/50 Ml Syringe IV PUSH PRN PRN Hypoglycemia Protocol Dronabinol 2.5 mg 05/17/24 16:30 05/19/24 15:52 Dronabinol (*Crx) 2.5 Mg Capsule PO 2.5 mg DAILY@1630 [facility] Administration Enoxaparin Sodium 120 mg 05/09/24 06:00 05/17/24 05:05 Enoxaparin 120 Mg/0.8 Ml Syringe SUB-Q 120 mg Q24H ROSY Administration Epoetin Olu-epbx 10,000 units 05/14/24 11:05 05/19/24 08:07 Epoetin Olu-Epbx 10,000 Units/Ml Vial SUB-Q 10,000 units TUTHSA@09 ROSY Administration Glucagon 1 mg 04/22/24 23:06 Glucagon For Inj 1 Mg Vial IM PRN PRN Hypoglycemia Protocol Glucose 15 gm 04/22/24 23:06 Glucose Oral Gel 15 Gm Of Glucse In 37.5 Gm Tube PO PRN PRN Hypoglycemia Protocol Guaifenesin/Dextromethorphan 10 ml 05/15/24 10:07 05/19/24 21:04 Guaifenesin/Dextromethorphan 10 Ml Udc PO 10 ml Q4H PRN Administration Cough Hydralazine HCl 10 mg 04/25/24 08:00 05/03/24 21:47 Hydralazine Hcl 20 Mg/Ml Vial IV PUSH 10 mg Q4H PRN Administration Blood Pressure - High Dextrose 1,000 mls @ 100 mls/hr 04/22/24 23:06 Dextrose 5% 1,000 Ml IVPB PRN PRN Hypoglycemia Protocol Sodium Chloride 1,000 mls @ 125 mls/hr 05/18/24 07:55 05/19/24 22:37 Normal Saline Iv IV CONT 125 mls/hr .Q8H ROSY Administration Cefepime HCl 2 gm in 50 mls @ 100 mls/hr 05/18/24 09:00 05/19/24 21:33 Maxipime 2 Gm/Ns 50 Ml IVPB Infused Q12HR ROSY Infusion Metronidazole 500 mg in 100 mls @ 100 mls/hr 05/18/24 09:00 05/20/24 00:56 Flagyl 500 Mg/Iso Soln 100 Ml IVPB 100 mls/hr Q8H ROSY Administration Micafungin Sodium 100 mg/ 100 mls @ 100 mls/hr 05/18/24 09:00 05/19/24 09:36 Sodium Chloride IVPB Infused DAILY ROSY Infusion Vancomycin HCl 1,500 mg in 500 mls @ 250 mls/hr 05/20/24 22:00 Vancomycin 1,500 Mg/Ns 500 Ml IVPB Q24H ROSY Ipratropium [place] 0.5 mg 05/04/24 09:32 05/17/24 10:11 Ipratropium Br 0.02% Inh Soln 0.5 Mg/2.5 Ml Vial INHALATION 0.5 mg Q6HRT PRN Administration Shortness Of Breath Levalbuterol HCl 0.63 mg 05/04/24 09:32 05/17/24 10:11 Levalbuterol Neb 1.25 Mg/3 Ml INHALATION 0.63 mg Q6HRT PRN Administration Shortness Of Breath Lidocaine 1 patch 05/18/24 09:00 05/19/24 08:12 Lidocaine 5% Patch TRANSDERM 1 patch DAILY ROSY Administration Lorazepam 0.5 mg 05/16/24 13:48 05/17/24 23:07 Lorazepam (*Crx) 0.5 Mg Tablet PO 0.5 mg Q6H PRN Administration Anxiety Metoclopramide HCl 10 mg 05/16/24 18:00 05/20/24 05:30 Metoclopramide Hcl Inj 10 Mg/2 Ml Vial IV PUSH 10 mg Q6HR ROSY Administration Morphine Sulfate 4 mg 04/22/24 22:02 05/18/24 16:09 Morphine Sulfate (*Crx) 4 Mg/Ml Inj IV PUSH 4 mg Q3H PRN Administration Pain Rated 7-10 Ondansetron HCl 4 mg 05/13/24 11:22 05/15/24 12:53 Ondansetron Inj 4 Mg/2 Ml Vial IV PUSH 4 mg Q6H PRN Administration Nausea And Vomiting Pantoprazole Sodium 40 mg 04/26/24 21:00 05/19/24 21:03 Pantoprazole Sodium Iv 40 Mg Vial IV PUSH 40 mg Q12HR ROSY Administration Sodium Chloride 10 ml 04/23/24 14:00 05/20/24 05:31 Central Line Flush IV PUSH 10 ml Q8HR ROSY Administration Sodium Chloride 20 ml 04/23/24 10:16 05/20/24 04:57 Central Line Flush IV PUSH 20 ml PRN PRN Administration after blood draws Sodium Chloride 10 ml 05/04/24 14:15 Central Line Flush IV PUSH PRN PRN with TPN bag changes Sodium Chloride 20 ml 05/04/24 14:15 05/18/24 06:18 Central Line Flush IV PUSH 20 ml PRN PRN Administration after blood draws Radiology Results: ITS Impressions Chest/Abdomen/Pelvis CTA 04/22/24 18:10 IMPRESSION: Perforated viscus with a large amount of free air and fluid, with mural thickening in the distal stomach and multiple punctate foci of extraluminal air in this area for which site of perforation is suspected. Renal Ultrasound 04/24/24 11:58 IMPRESSION: Simple cyst in the left kidney upper pole. Other appearances are unremarkable. Lower Extremity CTA 05/02/24 16:36 IMPRESSION: 1. Scattered atherosclerotic plaque in the arteries of the left lower limb as detailed above without a discrete hemodynamic significant stenosis. Runoff below the ankle in the left posterior tibial artery this supplies the foot. Atretic distal peroneal and anterior tibial arteries with intraluminal contrast becoming indiscernible at the level of the ankle and with no appreciable contrast in the dorsalis pedis artery. Chest/Abdomen/Pelvis CT 05/08/24 10:43 IMPRESSION: Findings suggesting air and possible fluid extending from the lumen of the antrum of the stomach, with a small anterior collection, as detailed above. Repeat evaluation with Gastrografin via the gastrostomy would provide additional information. Upper GI Series 05/09/24 09:31 IMPRESSION: 1. Ulcer of the gastric antrum with contained extraluminal contrast similar to 04/28/2024. The extraluminal contrast distribution is worse than typically seen after [place] patch repair. Abdomen CT 05/09/24 15:27 IMPRESSION: Redemonstration of a tract extending from the posterior superior margin of the antrum of the stomach only partially filled with oral contrast, perhaps demonstrating early healing. Abdomen/Pelvis CT 05/17/24 09:03 Impression: Persistent wall thickening of the gastric antrum/duodenum with surrounding haziness, compatible postoperative change. There is persistent irregular tract with small amount of fluid and external air extending from the gastric antrum superiorly/anteriorly, which could reflect abscess or persistent contained perforation. No extraluminal contrast seen, and no oral contrast seen within this collection. Intramuscular hematoma of the right iliopsoas and psoas major muscles, with additional irregular hematoma extending to the posterior right retroperitoneum. Bilateral fat-containing inguinal hernias. Small bilateral pleural effusions. Chest X-Ray 05/17/24 14:51 IMPRESSION: Left basilar atelectasis versus pneumonia. Clinical correlation advised. Labs Labs: Laboratory Results - last 24 hr 05/20/24 04:55 WBC 22.7 H RBC 2.77 L Hgb 8.2 L Hct 27.1 L MCV 97.8 MCH 29.6 MCHC 30.3 L RDW 16.3 H Plt Count 148 L MPV 12.7 H Immature Gran % (Auto) Not Reportable Neut % (Auto) Not Reportable Lymph % (Auto) Not Reportable [place] % (Auto) Not Reportable Eos % (Auto) Not Reportable Baso % (Auto) Not Reportable Lymph # (Auto) Not Reportable [place] # (Auto) Not Reportable Eos # (Auto) Not Reportable Baso # (Auto) Not Reportable Abs Immat Gran (auto) Not Reportable Absolute Neuts (auto) Not Reportable Absolute Nucleated RBC Not Reportable Total Counted 100 Neutrophils % (Manual) 85 H Band Neutrophils % 7 H Lymphocytes % (Manual) 4 L Monocytes % (Manual) 3 Eosinophils % (Manual) 1 Nucleated RBC % Not Reportable Abs Neuts (Manual) 20.88 H Abs Lymphs (Manual) 0.90 L Abs Monocytes (Manual) 0.68 Absolute Eos (Manual) 0.22 Platelet Estimate Adequate Hypochromasia 1+ Ovalocytes 1+ Schistocytes None seen Sodium 137 Potassium 4.1 Chloride 110 H Carbon Dioxide 19 L Anion Gap 8 BUN 58 H Creatinine 1.84 H Estim Creat Clear Calc 44 Estimated GFR 36 L Glucose 111 H Calcium 7.6 L Total Bilirubin 0.7 AST 23 ALT 23 Alkaline Phosphatase 141 H Total Protein 6.0 L Albumin 2.4 L
[2024-05-20] MEDS: CEFEPIME 2 GM/NS 50 ML 2 GM/50 ML BAG IVPB ×2 (10:37→20:58)
[2024-05-20] MEDS: PANTOPRAZOLE SODIUM IV 40 MG VIAL IV PUSH ×2 (10:38→20:58)
[2024-05-20] MEDS: LIDOCAINE 5% PATCH 1 PATCH TRANSDERM (10:39)
--- NOTE | 2024-05-20 10:39 | PCNFU ---
Nutrition Follow-Up Complete: Inadequate oral intake related to altered GI function as evidenced by need for full TPN Goal: Meet estimated nutrition needs Patient is not meeting goal. We will continue current goal. Pt current nutrition is Low Fiber with Nepro bolus feedings 220 TID. Nutrition recommendation: increasing bolus feedings to 240 QID Last recorded weight is 140 kg, up from 123 kg on admit. Bowel Motility: Last reported BM 05/20 Labs Reviewed:BUN 58, Cr 1.84, PO4 5.3, Alb 2.4 Meds Noted:Lipitor, NS, Reglan,Marinol, Protonix Skin:WNL Additional Notes: Patient refused breakfast today, sleepy. Oral intake has been < 25% of meals. Patient has been receiving bolus tube feedings of Nepro 220 ml TID. Spoke with Dr. Moreno today, recommending increase in tube feeding rates. orders for 240 ml QID. Total Nutrition: 1728 kcal/78 gm protein/698 ml water. Flush 100 ml QID. Tube feedings meeting 94% kcal needs at 15 kcal/kg and 82% protein needs at 0.8-1.0 gm per kcal. Monitoring TF tolerance, GI function, plan of care, weights, labs, orders Follow up Thursday/Thursday
[2024-05-20 11:26] LABS: NT Pro B Type Natriuretic Pept 774 pg/mL (19.9-100)
[2024-05-20 13:32] VITALS: BP 179/70; PULSE 84; RESP 20; TEMP 36.1; O2SAT 98
[2024-05-20] MEDS: MICAFUNGIN SODIUM 100 MG in SODIUM CHLORIDE 0.9% IV 100 ML IVPB (13:49)
--- NOTE | 2024-05-20 15:24 | PC.NURSE ---
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
[2024-05-20] MEDS: SODIUM CHLORIDE 0.9% IV 1,000 ML 125 ML IV CONT (16:11)
[2024-05-20] MEDS: droNABinol (*CRX) 2.5 MG CAPSULE PO (16:11)
[2024-05-20] MEDS: lisinopriL 20 MG TABLET 40 MG BY MOUTH (16:12)
--- NOTE | 2024-05-20 16:47 | PCOTNOTE ---
Pt. D/C from therapy services. Please reorder when pt. safely able to participate
[2024-05-20] MEDS: MORPHINE SULFATE (*CRX) 4 MG/ML INJ IV PUSH (17:43)
[2024-05-20 20:22] VITALS: BP 185/83; PULSE 91; RESP 18; TEMP 37.2; O2SAT 97
[2024-05-20] MEDS: hydrALAZINE HCL 20 MG/ML VIAL 10 MG IV PUSH (20:58)
[2024-05-20 21:00] VITALS: O2SAT 97
[2024-05-20] MEDS: guaiFENesin/DEXTROMETHORPHAN 10 ML UDC PO (21:19)
[2024-05-20 21:47] LABS: Vancomycin Trough 13.3 ug/mL (10.0-20.0)
[2024-05-20] MEDS: VANCOMYCIN 1,750 MG/NS 500 ML 1,750 MG/500 ML BAG 250 MG IVPB (22:28)
[2024-05-21] MEDS: METOCLOPRAMIDE HCL INJ 10 MG/2 ML VIAL IV PUSH ×4 (00:20→17:43)
[2024-05-21] MEDS: metroNIDAZOLE 500 MG/ISO 100ML 500 MG/100 ML BAG 100 MG IVPB ×3 (00:21→17:43)
[2024-05-21] MEDS: SODIUM CHLORIDE 0.9% IV 1,000 ML 125 ML IV CONT ×2 (03:38→11:44)
[2024-05-21 04:55] VITALS: BP 180/82; PULSE 88; RESP 16; TEMP 37.1; O2SAT 95
[2024-05-21] MEDS: BENZOCAINE/MENTHOL (*BKC) 18 EA LOZENGE 1 LOZENGE PO ×2 (05:15→12:14)
[2024-05-21] MEDS: CENTRAL LINE FLUSH 20 ML IV PUSH (05:22)
[2024-05-21] MEDS: CENTRAL LINE FLUSH 10 ML IV PUSH ×3 (05:23→20:23)
[2024-05-21 05:31] LABS: Hematocrit 27.3 % (42.0-52.0); Hemoglobin 8.5 g/dL (14.0-18.0); Mean Corpuscular HGB Conc 31.1 g/dl (32-36); Mean Corpuscular Hemoglobin 29.8 pg (26-34); Mean Corpuscular Volume 95.8 fl (80-100); Mean Platelet Volume 12.9 fl (7.4-10.4); Platelet Count Result 177 k/mm3 (150-375); Red Blood Count 2.85 M/mm3 (4.6-6.20); Red Cell Distribution Width 16.6 % (11.5-14.5); White Blood Count 22.3 K/mm3 (4.5-10.0)
[2024-05-21 05:42] LABS: Alanine Aminotransferase 21 U/L (6-50); Albumin Level 2.4 g/dL (3.5-5.1); Alkaline Phosphatase 137 U/L (38-126); Anion Gap 10 mmol/L (4-12); Aspartate Amino Transferase 26 U/L (17-59); Bilirubin,Total 0.7 mg/dL (0.2-1.3); Blood Urea Nitrogen 52 mg/dL (9-20); Calcium 7.9 mg/dL (8.4-10.2); Carbon Dioxide 17 mmol/L (22-30); Chloride 110 mmol/L (98-107); Estimated CRCL calculation 51 ml/min; Estimated Glomerular Filt Rate 42; Glucose 98 mg/dL (65-110); Potassium 4.1 mmol/L (3.4-5.0); Sodium 137 mmol/L (137-145)
[2024-05-21] MEDS: hydrALAZINE HCL 20 MG/ML VIAL 10 MG IV PUSH (05:44)
[2024-05-21] MEDS: ONDANSETRON INJ 4 MG/2 ML VIAL IV PUSH (05:44)
[2024-05-21 05:54] LABS: Anisocytosis 1+; Band Neutrophils Percent 4 % (0-6); Crenated RBC 1+; Lymphocytes Absolute Manual 1.33 K/mm3 (1.1-4.5); Monocytes Absolute Manual 0.66 K/mm3 (0.1-0.90); Monocytes Percent Manual 3 % (3-9); Neutrophils Absolute Manual 20.29 K/mm3 (1.3-6.7); Neutrophils Percent Manual 87 % (46-73); Ovalocytes 1+; Platelet Estimate Adequate (Adequate); Schistocytes None Seen; Smudge Cells PRESENT; Total Cells Counted 100
--- NOTE | 2024-05-21 07:14 | P.PNIM_ITS ---
Progress Note: A&P Assessment and Plan (1) Sepsis: Code(s): A41.9 - Sepsis, unspecified organism Status: Resolved Assessment and Plan: Meets SIRS criteria: Tachycardia, Febrile, Leukocytosis - lactic acid: 0.7 - suspected source: MRSA - blood cultures drawn on 05/18, MRSA + - UA: Cloudy, 1+ protein, otherwise unremarkable - Urine culture negative - CXR: Left basilar atelectasis versus pneumonia. Clinical correlation advised. - Continue IV Vancomycin, consult pharmacy to dose, Cefepime 2 gram IV q12H, Micafungin and Flagyl - Repeat Blood cultures on 05/20 showed no growth, continue to monitor for 2 additional days. - P.r.n. Tylenol, Zofran, and melatonin (2) MRSA (methicillin resistant staph aureus) culture positive: Code(s): Z22.322 - Carrier or suspected carrier of Methicillin resistant Staphylococcus aureus Status: Acute Assessment and Plan: - Nasal MRSA positive, BC MRSA positive - Started on IV Vanc for sepsis, continue - Initiated Mupirocin ointment - Continue IV Abx, narrow coverage when necessary - Trend WBC - Repeat Blood cultures on 05/20 showed no growth, continue to monitor for 2 additional days. (3) Bacteremia: Code(s): R78.81 - Bacteremia Status: Acute Assessment and Plan: * Resulted positive for MRSA * Continue IV antibiotic regimen * Monitor blood cultures over next few days (4) Perforated abdominal viscus: Code(s): R19.8 - Other specified symptoms and signs involving the digestive system and abdomen Status: Acute Assessment and Plan: * Septic shock in setting of peritonitis with perforated gastric ulcer: * Shock has resolved * Status post exploratory laparotomy with repair of antral gastric ulcer with omental Clarence patch, open gastrostomy tube * CT of the abdomen: Redemonstration of a tract extending from the posterior superior margin of the antrum of the stomach only partially filled with oral contrast, perhaps demonstrating early healing. * Surgery is following, added Micafungin * Diet advanced to soft diet * CT abd/pelvis showed no intraabdominal abscess or new fluid collection, UA (-) for UTI. * Wound healing well * Right sided drain removed yesterday, left drain emptied yesterday 22cc serous fluid (5) Acute kidney injury superimposed on stage 3b chronic kidney disease: Code(s): N17.9 - Acute kidney failure, unspecified; N18.32 - Chronic kidney disease, stage 3b Status: Acute Assessment and Plan: * baseline creatinine most likely around 1.5 * Nephrology following * Renal ultrasound was unremarkable for any acute issues. * Restarted Lasix, holding IVF * Cr 4.03 -> 3.2 -> 2.16 -> 1.61 * Continue trending (6) Hematoma: Code(s): T14.8XXA - Other injury of unspecified body region, initial encounter Status: Acute Assessment and Plan: * CT abdomen pelvis on 05/17/2024 shows: Intramuscular hematoma of the right iliopsoas and psoas major muscles, with additional irregular hematoma extending to the posterior right retroperitoneum. * Spoke with surgery likely noninfective * Lidocaine patch * Lovenox on hold, no recent found for therapeutic Lovenox, when patient was placed back on Lovenox likely benefit from the 40 mg (7) Pleural effusion: Code(s): J90 - Pleural effusion, not elsewhere classified Status: Acute Assessment and Plan: * Seen on CT * Chest x-ray dated compare * Likely due to 3rd spacing * Stable (8) Pneumonia: Code(s): J18.9 - Pneumonia, unspecified organism Status: Acute Assessment and Plan: Improving * Encourage IS use * Cornet therapy * nebs PRN * 05/13 finished antibiotics * Currently on room air (9) Malnutrition following gastrointestinal surgery: Code(s): K91.2 - Postsurgical malabsorption, not elsewhere classified Status: Acute Assessment and Plan: * Passed swallow study. * Patient advanced to soft diet today per General surgery recommendation * Continue to encourage po intake * Bolus tube feeding via G tube * add reglan and Marinol (10) Anemia: Code(s): D64.9 - Anemia, unspecified Status: Acute Assessment and Plan: Iron deficiency anemia on acute loss Stable * Trend CBC. * transfuse if hgb <7.0, or symptomatic * Iron replacement (11) HTN (hypertension): Code(s): I10 - Essential (primary) hypertension Status: Acute Assessment and Plan: Controlled * Continue Clonidine patch and Hydralazine PRN. * Trend BP (12) Generalized weakness: Code(s): R53.1 - Weakness Status: Acute Assessment and Plan: * PT/OT-maxi move use for transfer * Patient will likely need placement * No changes to current plan (13) Hypokalemia: Code(s): E87.6 - Hypokalemia Status: Acute Assessment and Plan: Improved * Trend labs * Replace as indicated (14) Hypernatremia: Code(s): E87.0 - Hyperosmolality and hypernatremia Status: Acute Assessment and Plan: Resolved Daily BMP Time Spent With Patient Time: Subjective Date/time seen: 05/21/24 07:14 Interval history: Follow-up for acute kidney injury/acute renal failure on chronic kidney disease. 05/21/2024 Patient sitting comfortably in bed at time of examination. Patient denies any chest pain, shortness of breath, nausea/vomiting, or abdominal pain at this ti me. Right-sided drain was removed yesterday, left-sided drain empty and had 20 cc output. Patient endorses feeling much better today than he did yesterday. Oral intake still minimal but still maintaining tube feedings. Upon examination patient appears to be very edematous, Lasix has been restarted. Kidney function improving, WBC still 22 but will continue to maintain on broad-spectrum antibio tics including vancomycin for now. Holding fluids for now. Review of Systems Review of Systems: 12 systems were reviewed and are negativ e except for as per HPI. All systems reviewed & are unremarkable except as noted in HPI and below Exam Narrative: General: Ill appearing, appears stated age. HEENT: normocephalic, atraumatic. Mucous membranes moist. EOMI, PERRLA, bilateral sclera anicteric, no conjunctival injection. Neck supple without JVD, lymphadenopathy, or bruit. Respiratory: clear to ascultation bilaterally. No rales/rhonic/wheezes. Cardiovascular: Regular rate and rhythm, normal S1-S2 upon ascultation. No murmurs, rubs, or clicks. PMI is nondisplaced, capillary refill less than 3 second. Abdomen: Soft, round, no pulsatile masses, nondistended and nontender. No rebound, no guarding. No CVA tenderness, no hepatosplenomegaly. Bowel sounds present to all four quadrants. No high pitch or tinkling sounds, resonant to percussion. Extremities: 1 + edema to both LE. No cyanosis, clubbing present. Pulses are palpable 2/2. Active ROM to all four extremities. Neuro: Alert and orientated x 4. PERRLA. Cranial nerves 2-12 intact without focal deficit. Skin: Warm, dry, and intact, without rash, erythema, or lesion. Psych: pleasant, cooperative, normal speech, normal affect, no hallucinations, no dysarthia Skin: PEG tube, ELSA drain x [address], midline incision well approximated without redness or drainage. Const: General: comfortable, no acute distress and uncomfortable Other: Acutely ill-appearing, obese HENMT: Other: Mucous membranes are dry, head is normocephalic atraumatic, few missing teeth, bridge in the lower jaw Eyes: Other: Pupils are equal and reactive, no scleral icterus Neck: Other: No JVD, trachea midline Resp: Effort & Inspection: normal respiratory effort Auscultation: clear to auscultation bilaterally and diminished lung sounds Other: Cardio: Rate: regular rate Rhythm: regular rhythm GI: Auscultation: normal bowel sounds Other: Gastrostomy tube in place with dry gauze dressing and skin around the G-tube without erythema or drainage. Incision dry with steri strips intact, no erythema. Slightly distended. Skin: Other: Generally cold to touch, 2nd cap refill, fingers and toes are cyanotic Neuro: Speech: normal speech Extrem: General: pedal edema bilaterally 2+ Psych: Mental Status: mental status grossly normal Affect: normal affect Objective Data Vital Signs Vital Signs: Vital Signs - 24 hr 05/20/24 08:30 05/20/24 09:00 05/20/24 13:32 Temperature 97.0 F L 97.0 F L Pulse Rate 86 84 Respiratory Rate 19 20 Blood Pressure 166/76 H 179/70 H Pulse Oximetry 97 98 Oxygen Delivery Room Air 05/20/24 20:00 05/20/24 20:22 05/20/24 21:00 Temperature 98.9 F Pulse Rate 91 Respiratory Rate 18 Blood Pressure 185/83 H Pulse Oximetry 97 97 Oxygen Delivery Room Air Autopap 05/21/24 04:55 Temperature 98.8 F Pulse Rate 88 Respiratory Rate 16 Blood Pressure 180/82 H Pulse Oximetry 95 Oxygen Delivery Intake/Output Intake/Output: Intake & Output 05/18/24 05/19/24 05/20/24 05/21/24 23:59 23:59 23:59 23:59 Intake Total 4672.2 4691.3 2645 1850 Output Total 4365 700 1020 800 Balance 307.2 3991.3 1625 1050 Meds/Results Medications: Active Medications Generic Name Dose Route Start Last Admin Trade Name Freq PRN Reason Stop Dose Admin Acetaminophen 650 mg 04/26/24 22:19 04/26/24 22:57 Acetaminophen 650 Mg Suppository RECTAL 650 mg Q6H PRN Administration Mild Pain (1-3) or Fever Acetaminophen 650 mg 05/05/24 10:27 05/20/24 05:31 Acetaminophen Elixir 325 Mg/10.15 Ml Udc PO 650 mg Q6H PRN Administration Mild Pain (1-3) or Fever Artificial Tears 1 drop 04/27/24 08:37 Artificial Tears Ophth Soln 15 Ml Bottle EACH EYE QID PRN Dry Eye(s) Atorvastatin Calcium 20 mg 04/30/24 09:00 Atorvastatin 20 Mg Tablet BY MOUTH DAILY ROSY Benzocaine 1 lozenge 05/15/24 15:35 05/21/24 05:15 Benzocaine/Menthol (*Bkc) 18 Ea Lozenge PO 1 lozenge PRN PRN Administration Sore Throat Calcium Carbonate 500 mg 05/19/24 08:00 05/20/24 08:33 Calcium/Vitamin D 500 Mg/5 Mcg (200 I.U.) Tablet PO 500 mg DAILY@0800 [facility] Administration Clonidine HCl 1 patch 05/01/24 09:00 05/15/24 08:47 Clonidine 0.1 Mg/24 Hr Patch TRANSDERM 1 patch WEEKLY ROSY Administration Dextrose 12.5 gm 04/22/24 23:06 Dextrose 50% 25 Gm/50 Ml Syringe IV PUSH PRN PRN Hypoglycemia Protocol Dronabinol 2.5 mg 05/17/24 16:30 05/20/24 16:11 Dronabinol (*Crx) 2.5 Mg Capsule PO 2.5 mg DAILY@1630 [facility] Administration Enoxaparin Sodium 120 mg 05/09/24 06:00 05/17/24 05:05 Enoxaparin 120 Mg/0.8 Ml Syringe SUB-Q 120 mg Q24H ROSY Administration Epoetin Olu-epbx 10,000 units 05/14/24 11:05 05/19/24 08:07 Epoetin Olu-Epbx 10,000 Units/Ml Vial SUB-Q 10,000 units TUTHSA@09 [facility] Administration Glucagon 1 mg 04/22/24 23:06 Glucagon For Inj 1 Mg Vial IM PRN PRN Hypoglycemia Protocol Glucose 15 gm 04/22/24 23:06 Glucose Oral Gel 15 Gm Of Glucse In 37.5 Gm Tube PO PRN PRN Hypoglycemia Protocol Guaifenesin/Dextromethorphan 10 ml 05/15/24 10:07 05/20/24 21:19 Guaifenesin/Dextromethorphan 10 Ml Udc PO 10 ml Q4H PRN Administration Cough Hydralazine HCl 10 mg 04/25/24 08:00 05/21/24 05:44 Hydralazine Hcl 20 Mg/Ml Vial IV PUSH 10 mg Q4H PRN Administration Blood Pressure - High Dextrose 1,000 mls @ 100 mls/hr 04/22/24 23:06 Dextrose 5% 1,000 Ml IVPB PRN PRN Hypoglycemia Protocol Sodium Chloride 1,000 mls @ 125 mls/hr 05/18/24 07:55 05/21/24 03:38 Normal Saline Iv IV CONT 125 mls/hr .Q8H ROSY Administration Cefepime HCl 2 gm in 50 mls @ 100 mls/hr 05/18/24 09:00 05/20/24 22:37 Maxipime 2 Gm/Ns 50 Ml IVPB Infused Q12HR ROSY Infusion Metronidazole 500 mg in 100 mls @ 100 mls/hr 05/18/24 09:00 05/21/24 03:27 Flagyl 500 Mg/Iso Soln 100 Ml IVPB Infused Q8H ROSY Infusion Micafungin Sodium 100 mg/ 100 mls @ 100 mls/hr 05/18/24 09:00 05/20/24 14:49 Sodium Chloride IVPB Infused DAILY ROSY Infusion Vancomycin HCl 1,750 mg in 500 mls @ 250 mls/hr 05/20/24 22:00 05/21/24 03:28 Vancomycin 1,750 Mg/Ns 500 Ml IVPB Infused Q24H ROSY Infusion Ipratropium Dubberly 0.5 mg 05/04/24 09:32 05/17/24 10:11 Ipratropium Br 0.02% Inh Soln 0.5 Mg/2.5 Ml Vial INHALATION 0.5 mg Q6HRT PRN Administration Shortness Of Breath Levalbuterol HCl 0.63 mg 05/04/24 09:32 05/17/24 10:11 Levalbuterol Neb 1.25 Mg/3 Ml INHALATION 0.63 mg Q6HRT PRN Administration Shortness Of Breath Lidocaine 1 patch 05/18/24 09:00 05/20/24 10:39 Lidocaine 5% Patch TRANSDERM 1 patch DAILY ROSY Administration Lisinopril 40 mg 05/20/24 15:05 05/20/24 16:12 Lisinopril 20 Mg Tablet BY MOUTH 40 mg DAILY ROSY Administration Lorazepam 0.5 mg 05/16/24 13:48 05/17/24 23:07 Lorazepam (*Crx) 0.5 Mg Tablet PO 0.5 mg Q6H PRN Administration Anxiety Metoclopramide HCl 10 mg 05/16/24 18:00 05/21/24 05:23 Metoclopramide Hcl Inj 10 Mg/2 Ml Vial IV PUSH 10 mg Q6HR ROSY Administration Miscellaneous Information 0 each 05/20/24 00:01 Please Renew Morphine- 10 Day Stop For Narcotic XX 06/19/24 00:00 CLARIFY ROSY Morphine Sulfate 4 mg 04/22/24 22:02 05/20/24 17:43 Morphine Sulfate (*Crx) 4 Mg/Ml Inj IV PUSH 4 mg Q3H PRN Administration Pain Rated 7-10 Ondansetron HCl 4 mg 05/13/24 11:22 05/21/24 05:44 Ondansetron Inj 4 Mg/2 Ml Vial IV PUSH 4 mg Q6H PRN Administration Nausea And Vomiting Pantoprazole Sodium 40 mg 04/26/24 21:00 05/20/24 20:58 Pantoprazole Sodium Iv 40 Mg Vial IV PUSH 40 mg Q12HR ROSY Administration Perflutren Lipid Microsphere 0 ml 05/20/24 11:44 Perflutren Lipid Microspheres 1.5 Ml Vial Diluted To 10 Ml Total Volume IV PUSH 05/23/24 11:44 ONCE PRN adequate visualization Protocol Perflutren Lipid Microsphere 0 ml 05/20/24 12:16 Perflutren Lipid Microspheres 1.5 Ml Vial Diluted To 10 Ml Total Volume IV PUSH 05/23/24 12:16 ONCE PRN adequate visualization Protocol Sodium Chloride 10 ml 04/23/24 14:00 05/21/24 05:23 Central Line Flush IV PUSH 10 ml Q8HR ROSY Administration Sodium Chloride 20 ml 04/23/24 10:16 05/21/24 05:22 Central Line Flush IV PUSH 20 ml PRN PRN Administration after blood draws Sodium Chloride 10 ml 05/04/24 14:15 Central Line Flush IV PUSH PRN PRN with TPN bag changes Sodium Chloride 20 ml 05/04/24 14:15 05/18/24 06:18 Central Line Flush IV PUSH 20 ml PRN PRN Administration after blood draws Radiology Results: ITS Impressions Chest/Abdomen/Pelvis CTA 04/22/24 18:10 IMPRESSION: Perforated viscus with a large amount of free air and fluid, with mural thickening in the distal stomach and multiple punctate foci of extraluminal air in this area for which site of perforation is suspected. Renal Ultrasound 04/24/24 11:58 IMPRESSION: Simple cyst in the left kidney upper pole. Other appearances are unremarkable. Lower Extremity CTA 05/02/24 16:36 IMPRESSION: 1. Scattered atherosclerotic plaque in the arteries of the left lower limb as detailed above without a discrete hemodynamic significant stenosis. Runoff below the ankle in the left posterior tibial artery this supplies the foot. Atretic distal peroneal and anterior tibial arteries with intraluminal contrast becoming indiscernible at the level of the ankle and with no appreciable contrast in the dorsalis pedis artery. Chest/Abdomen/Pelvis CT 05/08/24 10:43 IMPRESSION: Findings suggesting air and possible fluid extending from the lumen of the antrum of the stomach, with a small anterior collection, as detailed above. Repeat evaluation with Gastrografin via the gastrostomy would provide additional information. Upper GI Series 05/09/24 09:31 IMPRESSION: 1. Ulcer of the gastric antrum with contained extraluminal contrast similar to 04/28/2024. The extraluminal contrast distribution is worse than typically seen after Clarence patch repair. Abdomen CT 05/09/24 15:27 IMPRESSION: Redemonstration of a tract extending from the posterior superior margin of the antrum of the stomach only partially filled with oral contrast, perhaps demonstrating early healing. Abdomen/Pelvis CT 05/17/24 09:03 Impression: Persistent wall thickening of the gastric antrum/duodenum with surrounding haziness, compatible postoperative change. There is persistent irregular tract with small amount of fluid and external air extending from the gastric antrum superiorly/anteriorly, which could reflect abscess or persistent contained perforation. No extraluminal contrast seen, and no oral contrast seen within this collection. Intramuscular hematoma of the right iliopsoas and psoas major muscles, with additional irregular hematoma extending to the posterior right retroperitoneum. Bilateral fat-containing inguinal hernias. Small bilateral pleural effusions. Chest X-Ray 05/17/24 14:51 IMPRESSION: Left basilar atelectasis versus pneumonia. Clinical correlation advised. Labs Labs: Laboratory Results - last 24 hr 04/01/0305/20/24 05/21/24 04:52 21:24 05:21 WBC 22.3 H RBC 2.85 L Hgb 8.5 L Hct 27.3 L MCV 95.8 MCH 29.8 MCHC 31.1 L RDW 16.6 H Plt Count 177 MPV 12.9 H Immature Gran % (Auto) Not Reportable Neut % (Auto) Not Reportable Lymph % (Auto) Not Reportable [place] % (Auto) Not Reportable Eos % (Auto) Not Reportable Baso % (Auto) Not Reportable Lymph # (Auto) Not Reportable [place] # (Auto) Not Reportable Eos # (Auto) Not Reportable Baso # (Auto) Not Reportable Abs Immat Gran (auto) Not Reportable Absolute Neuts (auto) Not Reportable Absolute Nucleated RBC Not Reportable Total Counted 100 Neutrophils % (Manual) 87 H Band Neutrophils % 4 Lymphocytes % (Manual) 6.0 L Monocytes % (Manual) 3 Nucleated RBC % Not Reportable Abs Neuts (Manual) 20.29 H Abs Lymphs (Manual) 1.33 Abs Monocytes (Manual) 0.66 Smudge Cells Present Platelet Estimate Adequate Anisocytosis 1+ Ovalocytes 1+ Crenated Cell 1+ Schistocytes None seen Sodium 137 Potassium 4.1 Chloride 110 H Carbon Dioxide 17 L Anion Gap 10 BUN 52 H Creatinine 1.61 H Estim Creat Clear Calc 51 Estimated GFR 42 L Glucose 98 Calcium 7.9 L Total Bilirubin 0.7 AST 26 ALT 21 Alkaline Phosphatase 137 H NT-Pro-B Natriuret Pep 774 H Total Protein 6.0 L Albumin 2.4 L Vancomycin Trough 13.3 Quality VTE Prophylaxis VTE prophylaxis: mechanical ordered and pharmacologic ordered
[2024-05-21 08:47] VITALS: BP 167/77
[2024-05-21] MEDS: CEFEPIME 2 GM/NS 50 ML 2 GM/50 ML BAG IVPB ×2 (09:08→20:23)
[2024-05-21] MEDS: LIDOCAINE 5% PATCH 1 PATCH TRANSDERM (09:09)
[2024-05-21] MEDS: PANTOPRAZOLE SODIUM IV 40 MG VIAL IV PUSH ×2 (09:09→20:23)
[2024-05-21] MEDS: CALCIUM/VITAMIN D 500 MG/5 MCG (200 I.U.) TABLET PO (09:10)
[2024-05-21] MEDS: EPOETIN ALFA-EPBX 10,000 UNITS/ML VIAL 10000 UNITS SUB-Q (09:11)
[2024-05-21] MEDS: MICAFUNGIN SODIUM 100 MG in SODIUM CHLORIDE 0.9% IV 100 ML IVPB (11:39)
--- NOTE | 2024-05-21 11:40 | P.PNNP_ITS ---
Progress Note: A&P Assessment and Plan (1) Acute kidney injury: Code(s): N17.9 - Acute kidney failure, unspecified Status: Acute Assessment and Plan: * better by recent labs * had improved to baseline (1.5mg/dl) on 04/30 * then georgette to the low 4ish range * now improving again * suspect initial insult to be of multifactorial etiology: * NSAID use * hypotension/hemodynmic instability/shock * sepsis/infection * third spacing * evaluation to date: * CT shows normal kidneys * renal u/s with simple cyst x 1 o/w unremarkable. * urine electrolytes are prerenal * CPK mildly elevated (but not enough to affect kidneys) * urine eosinophils negative * mild proteinuria * another acute insult noted by recent labs (since 05/02): * possible due to pre-renal factors, infection (UTI +/- pneumonia versus gastric leak) * recent imaging noted - no evidence of gastric leak * repeat urine studies (on 05/08) suggestive of UTI and prerenal azotemia * despite prerenal urine electrolytes, he has evidence of volume overload again * suspect related to 3rd spacing and hypoalbuminemia * recent echocardiogram shows good LV function and no pulmonary hypertension * good diuresis/UOP with IV albumin and IV lasix previously... * restarted IV albumin + IV bumex today x 6 doses * follow trend of urine output and I/Os with this intervention * follow trend of repeat labs and UOP (2) Stage 3b chronic kidney disease: Code(s): N18.32 - Chronic kidney disease, stage 3b Status: Chronic Assessment and Plan: * creatinine ~ 1.5mg/dl in November 2023 * suspect secondary to hypertension, peripheral vascular disease, and possibly chronic NSAID use as well as age-related change (3) Bacteremia: Code(s): R78.81 - Bacteremia Status: Acute Assessment and Plan: * blood cultures with MRSA * continue IV antibiotics * follow repeat blood cultures * source? (4) Perforated gastric ulcer: Onset Date: 04/2024 Qualifiers: Gastric ulcer chronicity: acute Qualified Code(s): K25.1 - Acute gastric ulcer with perforation Code(s): K25.5 - Chronic or unspecified gastric ulcer with perforation Status: Acute Assessment and Plan: * suspect secondary to NSAID use * s/p exploratory laparotomy and repair of antral gastric ulcer with omental Clarence patch and placement of open gastrostomy tube (on 04/22) * TPN discontinued * bolus G-tube feedings with meals; continue oral feeding * General Surgery following (5) Hematoma: Code(s): T14.8XXA - Other injury of unspecified body region, initial encounter Status: Acute Assessment and Plan: * as noted by CT abdomen pelvis on 05/17/2024 * likely a contributing component to anemia * Lovenox on hold (6) Anemia: Code(s): D64.9 - Anemia, unspecified Status: Acute Assessment and Plan: * noted acute drop (on 05/10, 05/11, and 05/12) requiring blood transfusion * due to RIC, CKD, and acute illness along with CT scan findings on 05/17: * Intramuscular hematoma of the right iliopsoas and psoas major muscles, with additional irregular hematoma extending to the posterior right retroperitoneum * anemia studies also note iron deficiency * PRBC transfusion per protocol * on Epogen 3x/week (7) PAD (peripheral artery disease): Code(s): I73.9 - Peripheral vascular disease, unspecified Status: Acute Assessment and Plan: * CTA of left lower extremity noted * suspect acute on chronic issue * was on anticoagulation but on hold due to #5 (8) Malnutrition following gastrointestinal surgery: Code(s): K91.2 - Postsurgical malabsorption, not elsewhere classified Status: Chronic Assessment and Plan: * off TPN * tube feeds ongoing with boluses * attempting to transition to oral intake (but poor appetite noted) * on appetite stimulant (9) HTN (hypertension): Code(s): I10 - Essential (primary) hypertension Status: Acute Assessment and Plan: * reasonable control * follow trend of hemodynamics (10) Generalized weakness: Code(s): R53.1 - Weakness Status: Acute Assessment and Plan: * multifactorial * PT/OT as tolerated Will continue to follow. L Subjective Date/time seen: 05/21/24 11:40 Interval history: Follow-up for acute kidney injury/acute renal failure on chronic kidney disease. Renal function/creatinine appears relatively stable if not improving at this time; no acute complaints voiced when seen; reports feeling a bit better today in comparison to yesterday; oral intake still suboptimal so remains on tube feeding; restarted on IV albumin + IV bumex given worsening edema. Exam 2 Narrative: General: elderly but WD/WN male in NAD Heart: normal S1 and S2; no rub Lungs: clear anteriorly; decreased at bases Abdomen: soft, nontender; some bowel sounds; +G-tube Extremities: no cyanosis or clubbing; 1 - 2++ edema Skin: warm and intact Objective Data Vital Signs Vital Signs: Vital Signs - 24 hr 05/20/24 20:00 05/20/24 20:22 05/20/24 21:00 Temperature 98.9 F Pulse Rate 91 Respiratory Rate 18 Blood Pressure 185/83 H Pulse Oximetry 97 97 Oxygen Delivery Room Air Autopap 05/21/24 04:55 05/21/24 08:15 05/21/24 08:47 Temperature 98.8 F Pulse Rate 88 Respiratory Rate 16 Blood Pressure 180/82 H 167/77 H Pulse Oximetry 95 Oxygen Delivery Room Air Intake/Output Intake/Output: Intake & Output 05/18/24 05/19/24 05/20/24 05/21/24 23:59 23:59 23:59 23:59 Intake Total 4672.2 4691.3 2645 3140 Output Total 4365 700 1020 800 Balance 307.2 3991.3 1625 2340 Meds/Results Medications: Active Medications Generic Name Dose Route Start Last Admin Trade Name Freq PRN Reason Stop Dose Admin Acetaminophen 650 mg 04/26/24 22:19 04/26/24 22:57 Acetaminophen 650 Mg Suppository RECTAL 650 mg Q6H PRN Administration Mild Pain (1-3) or Fever Acetaminophen 650 mg 05/05/24 10:27 05/20/24 05:31 Acetaminophen Elixir 325 Mg/10.15 Ml Udc PO 650 mg Q6H PRN Administration Mild Pain (1-3) or Fever Artificial Tears 1 drop 04/27/24 08:37 Artificial Tears Ophth Soln 15 Ml Bottle EACH EYE QID PRN Dry Eye(s) Atorvastatin Calcium 20 mg 04/30/24 09:00 Atorvastatin 20 Mg Tablet BY MOUTH DAILY ROSY Benzocaine 1 lozenge 05/15/24 15:35 05/21/24 12:14 Benzocaine/Menthol (*Bkc) 18 Ea Lozenge PO 1 lozenge PRN PRN Administration Sore Throat Calcium Carbonate 500 mg 05/19/24 08:00 05/21/24 09:10 Calcium/Vitamin D 500 Mg/5 Mcg (200 I.U.) Tablet PO 500 mg DAILY@0800 ROSY Administration Clonidine HCl 1 patch 05/01/24 09:00 05/15/24 08:47 Clonidine 0.1 Mg/24 Hr Patch TRANSDERM 1 patch WEEKLY ROSY Administration Dextrose 12.5 gm 04/22/24 23:06 Dextrose 50% 25 Gm/50 Ml Syringe IV PUSH PRN PRN Hypoglycemia Protocol Dronabinol 2.5 mg 05/17/24 16:30 05/20/24 16:11 Dronabinol (*Crx) 2.5 Mg Capsule PO 2.5 mg DAILY@1630 ROSY Administration Enoxaparin Sodium 120 mg 05/09/24 06:00 05/17/24 05:05 Enoxaparin 120 Mg/0.8 Ml Syringe SUB-Q 120 mg Q24H ROSY Administration Epoetin Olu-epbx 10,000 units 05/14/24 11:05 05/21/24 09:11 Epoetin Olu-Epbx 10,000 Units/Ml Vial SUB-Q 10,000 units TUTHSA@09 ROSY Administration Furosemide 40 mg 05/21/24 10:35 Furosemide 40 Mg Tablet PO QAM ROSY Glucagon 1 mg 04/22/24 23:06 Glucagon For Inj 1 Mg Vial IM PRN PRN Hypoglycemia Protocol Glucose 15 gm 04/22/24 23:06 Glucose Oral Gel 15 Gm Of Glucse In 37.5 Gm Tube PO PRN PRN Hypoglycemia Protocol Guaifenesin/Dextromethorphan 10 ml 05/15/24 10:07 05/20/24 21:19 Guaifenesin/Dextromethorphan 10 Ml Udc PO 10 ml Q4H PRN Administration Cough Hydralazine HCl 10 mg 04/25/24 08:00 05/21/24 05:44 Hydralazine Hcl 20 Mg/Ml Vial IV PUSH 10 mg Q4H PRN Administration Blood Pressure - High Dextrose 1,000 mls @ 100 mls/hr 04/22/24 23:06 Dextrose 5% 1,000 Ml IVPB PRN PRN Hypoglycemia Protocol Sodium Chloride 1,000 mls @ 125 mls/hr 05/18/24 07:55 05/21/24 11:44 Normal Saline Iv IV CONT 125 mls/hr .Q8H ROSY Administration Cefepime HCl 2 gm in 50 mls @ 100 mls/hr 05/18/24 09:00 05/21/24 09:38 Maxipime 2 Gm/Ns 50 Ml IVPB Infused Q12HR ROSY Infusion Metronidazole 500 mg in 100 mls @ 100 mls/hr 05/18/24 09:00 05/21/24 10:17 Flagyl 500 Mg/Iso Soln 100 Ml IVPB 100 mls/hr Q8H ROSY Administration Micafungin Sodium 100 mg/ 100 mls @ 100 mls/hr 05/18/24 09:00 05/21/24 11:39 Sodium Chloride IVPB 100 mls/hr DAILY ROSY Administration Vancomycin HCl 1,750 mg in 500 mls @ 250 mls/hr 05/20/24 22:00 05/21/24 03:28 Vancomycin 1,750 Mg/Ns 500 Ml IVPB Infused Q24H ROSY Infusion Ipratropium [place] 0.5 mg 05/04/24 09:32 05/17/24 10:11 Ipratropium Br 0.02% Inh Soln 0.5 Mg/2.5 Ml Vial INHALATION 0.5 mg Q6HRT PRN Administration Shortness Of Breath Levalbuterol HCl 0.63 mg 05/04/24 09:32 05/17/24 10:11 Levalbuterol Neb 1.25 Mg/3 Ml INHALATION 0.63 mg Q6HRT PRN Administration Shortness Of Breath Lidocaine 1 patch 05/18/24 09:00 05/21/24 09:09 Lidocaine 5% Patch TRANSDERM 1 patch DAILY ROSY Administration Lisinopril 40 mg 05/20/24 15:05 05/21/24 11:58 Lisinopril 20 Mg Tablet BY MOUTH 40 mg DAILY ROSY Administration Lorazepam 0.5 mg 05/16/24 13:48 05/17/24 23:07 Lorazepam (*Crx) 0.5 Mg Tablet PO 0.5 mg Q6H PRN Administration Anxiety Metoclopramide HCl 10 mg 05/16/24 18:00 05/21/24 11:58 Metoclopramide Hcl Inj 10 Mg/2 Ml Vial IV PUSH 10 mg Q6HR ROSY Administration Miscellaneous Information 0 each 05/20/24 00:01 Please Renew Morphine- 10 Day Stop For Narcotic XX 06/19/24 00:00 CLARIFY ROSY Ondansetron HCl 4 mg 05/13/24 11:22 05/21/24 05:44 Ondansetron Inj 4 Mg/2 Ml Vial IV PUSH 4 mg Q6H PRN Administration Nausea And Vomiting Pantoprazole Sodium 40 mg 04/26/24 21:00 05/21/24 09:09 Pantoprazole Sodium Iv 40 Mg Vial IV PUSH 40 mg Q12HR ROSY Administration Perflutren Lipid Microsphere 0 ml 05/20/24 11:44 Perflutren Lipid Microspheres 1.5 Ml Vial Diluted To 10 Ml Total Volume IV PUSH 05/23/24 11:44 ONCE PRN adequate visualization Protocol Perflutren Lipid Microsphere 0 ml 05/20/24 12:16 Perflutren Lipid Microspheres 1.5 Ml Vial Diluted To 10 Ml Total Volume IV PUSH 05/23/24 12:16 ONCE PRN adequate visualization Protocol Sodium Chloride 10 ml 04/23/24 14:00 05/21/24 05:23 Central Line Flush IV PUSH 10 ml Q8HR ROSY Administration Sodium Chloride 20 ml 04/23/24 10:16 05/21/24 05:22 Central Line Flush IV PUSH 20 ml PRN PRN Administration after blood draws Sodium Chloride 10 ml 05/04/24 14:15 Central Line Flush IV PUSH PRN PRN with TPN bag changes Sodium Chloride 20 ml 05/04/24 14:15 05/18/24 06:18 Central Line Flush IV PUSH 20 ml PRN PRN Administration after blood draws Radiology Results: ITS Impressions Chest/Abdomen/Pelvis CTA 04/22/24 18:10 IMPRESSION: Perforated viscus with a large amount of free air and fluid, with mural thickening in the distal stomach and multiple punctate foci of extraluminal air in this area for which site of perforation is suspected. Renal Ultrasound 04/24/24 11:58 IMPRESSION: Simple cyst in the left kidney upper pole. Other appearances are unremarkable. Lower Extremity CTA 05/02/24 16:36 IMPRESSION: 1. Scattered atherosclerotic plaque in the arteries of the left lower limb as detailed above without a discrete hemodynamic significant stenosis. Runoff below the ankle in the left posterior tibial artery this supplies the foot. Atretic distal peroneal and anterior tibial arteries with intraluminal contrast becoming indiscernible at the level of the ankle and with no appreciable contrast in the dorsalis pedis artery. Chest/Abdomen/Pelvis CT 05/08/24 10:43 IMPRESSION: Findings suggesting air and possible fluid extending from the lumen of the antrum of the stomach, with a small anterior collection, as detailed above. Repeat evaluation with Gastrografin via the gastrostomy would provide additional information. Upper GI Series 05/09/24 09:31 IMPRESSION: 1. Ulcer of the gastric antrum with contained extraluminal contrast similar to 04/28/2024. The extraluminal contrast distribution is worse than typically seen after Clarence patch repair. Abdomen CT 05/09/24 15:27 IMPRESSION: Redemonstration of a tract extending from the posterior superior margin of the antrum of the stomach only partially filled with oral contrast, perhaps demonstrating early healing. Abdomen/Pelvis CT 05/17/24 09:03 Impression: Persistent wall thickening of the gastric antrum/duodenum with surrounding haziness, compatible postoperative change. There is persistent irregular tract with small amount of fluid and external air extending from the gastric antrum superiorly/anteriorly, which could reflect abscess or persistent contained perforation. No extraluminal contrast seen, and no oral contrast seen within this collection. Intramuscular hematoma of the right iliopsoas and psoas major muscles, with additional irregular hematoma extending to the posterior right retroperitoneum. Bilateral fat-containing inguinal hernias. Small bilateral pleural effusions. Chest X-Ray 05/17/24 14:51 IMPRESSION: Left basilar atelectasis versus pneumonia. Clinical correlation advised. Labs Labs: Laboratory Tests 05/21/24 05:21 05/21/24 05:21 Calcium 7.9 L Total Bilirubin 0.7 AST 26 ALT 21 Alkaline Phosphatase 137 H Total Protein 6.0 L Albumin 2.4 L Microbiology 05/18/24 09:28 Blood Blood Culture - Preliminary Methicillin Resis Staph Aureus 05/20/24 12:47 Blood Blood Culture - Preliminary 05/20/24 10:37 Blood Blood Culture - Preliminary 05/18/24 08:56 Blood Blood Culture - Final Methicillin Resis Staph Aureus
[2024-05-21] MEDS: FUROSEMIDE 40 MG TABLET PO (11:53)
[2024-05-21] MEDS: lisinopriL 20 MG TABLET 40 MG BY MOUTH (11:58)
--- NOTE | 2024-05-21 12:00 | PM.PNGS ---
Progress Note: A&P Assessment and Plan (1) Perforated gastric ulcer: Onset Date: 04/2024 Qualifiers: Gastric ulcer chronicity: acute Qualified Code(s): K25.1 - Acute gastric ulcer with perforation Code(s): K25.5 - Chronic or unspecified gastric ulcer with perforation Status: Acute Assessment and Plan: After having had multiple imaging studies, it appears there is no further leakage from the repair of gastric ulcer. Wound healing well. Right-sided drain has been removed yesterday. Left-sided drain emptied yesterday and had 20 cc out. Appearance is serous. (2) Malnutrition following gastrointestinal surgery: Code(s): K91.2 - Postsurgical malabsorption, not elsewhere classified Status: Acute Assessment and Plan: Patient to receive Nepro tube feeds in bolus every 6 hours. Had nausea yesterday and only got 2 of the tube feeds. Doing much better today and anticipate will get all for Nepro tube feeds. P.o. intake still minimal. He is going to eat some mccall this morning. (3) Acute kidney injury superimposed on stage 3b chronic kidney disease: Code(s): N17.9 - Acute kidney failure, unspecified; N18.32 - Chronic kidney disease, stage 3b Status: Acute Assessment and Plan: Creatinine clearance up to 51. Patient remains extremely edematous. Lasix has been started. (4) MRSA (methicillin resistant staph aureus) culture positive: Code(s): Z22.322 - Carrier or suspected carrier of Methicillin resistant Staphylococcus aureus Status: Acute Assessment and Plan: Blood cultures positive for MRSA. Source is unclear to me. He had a triple-lumen catheter which has been removed. Continue broad-spectrum antibiotics including vancomycin for now. White blood cell count remains about 22,000 but no left shift. Subjective Subjective Date/Time Seen: 05/21/24 12:00 Patient reports: feels better (Nauseated yesterday but not today), pain is less, tolerating liquids well (Tolerating bolus tube feeds well today) and afebrile Exam Const: General: comfortable, awake and tired appearing Nutritional Appearance: edematous GI: Inspection: Abdominal wall edema, incision (Dry and healing, Steri-Strips removed), obesity and other (Serous fluid per left ELSA, G-tube site looks good) GI Palp: Yes Firmness to palpation present (GI) and No Tenderness to palpation present (GI) Auscultation: normoactive bowel sounds Extrem: General: edema Objective Data Vital Signs Vital Signs: Vital Signs - 24 hr 05/20/24 13:32 05/20/24 20:00 05/20/24 20:22 Temperature 36.1 C L 37.2 C Pulse Rate 84 91 Respiratory Rate 20 18 Blood Pressure 179/70 H 185/83 H Pulse Oximetry 98 97 Oxygen Delivery Room Air 05/20/24 21:00 05/21/24 04:55 05/21/24 08:15 Temperature 37.1 C Pulse Rate 88 Respiratory Rate 16 Blood Pressure 180/82 H Pulse Oximetry 97 95 Oxygen Delivery Autopap Room Air 05/21/24 08:47 Temperature Pulse Rate Respiratory Rate Blood Pressure 167/77 H Pulse Oximetry Oxygen Delivery Intake/Output Intake/Output: Intake & Output 05/18/24 05/19/24 05/20/24 05/21/24 23:59 23:59 23:59 23:59 Intake Total 4672.2 4691.3 2645 3140 Output Total 4365 700 1020 800 Balance 307.2 3991.3 1625 2340 Meds/Results Medications: Active Medications Generic Name Dose Route Start Last Admin Trade Name Freq PRN Reason Stop Dose Admin Acetaminophen 650 mg 04/26/24 22:19 04/26/24 22:57 Acetaminophen 650 Mg Suppository RECTAL 650 mg Q6H PRN Administration Mild Pain (1-3) or Fever Acetaminophen 650 mg 05/05/24 10:27 05/20/24 05:31 Acetaminophen Elixir 325 Mg/10.15 Ml Udc PO 650 mg Q6H PRN Administration Mild Pain (1-3) or Fever Artificial Tears 1 drop 04/27/24 08:37 Artificial Tears Ophth Soln 15 Ml Bottle EACH EYE QID PRN Dry Eye(s) Atorvastatin Calcium 20 mg 04/30/24 09:00 Atorvastatin 20 Mg Tablet BY MOUTH DAILY ROSY Benzocaine 1 lozenge 05/15/24 15:35 05/21/24 05:15 Benzocaine/Menthol (*Bkc) 18 Ea Lozenge PO 1 lozenge PRN PRN Administration Sore Throat Calcium Carbonate 500 mg 05/19/24 08:00 05/21/24 09:10 Calcium/Vitamin D 500 Mg/5 Mcg (200 I.U.) Tablet PO 500 mg DAILY@0800 ROSY Administration Clonidine HCl 1 patch 05/01/24 09:00 05/15/24 08:47 Clonidine 0.1 Mg/24 Hr Patch TRANSDERM 1 patch WEEKLY ROSY Administration Dextrose 12.5 gm 04/22/24 23:06 Dextrose 50% 25 Gm/50 Ml Syringe IV PUSH PRN PRN Hypoglycemia Protocol Dronabinol 2.5 mg 05/17/24 16:30 05/20/24 16:11 Dronabinol (*Crx) 2.5 Mg Capsule PO 2.5 mg DAILY@1630 ROSY Administration Enoxaparin Sodium 120 mg 05/09/24 06:00 05/17/24 05:05 Enoxaparin 120 Mg/0.8 Ml Syringe SUB-Q 120 mg Q24H ROSY Administration Epoetin Olu-epbx 10,000 units 05/14/24 11:05 05/21/24 09:11 Epoetin Olu-Epbx 10,000 Units/Ml Vial SUB-Q 10,000 units TUTHSA@09 [facility] Administration Furosemide 40 mg 05/21/24 10:35 Furosemide 40 Mg Tablet PO QAM [facility] Furosemide 40 mg 05/21/24 11:45 05/21/24 11:53 Furosemide 40 Mg Tablet PO 05/21/24 11:46 40 mg ONCE ONE Administration Glucagon 1 mg 04/22/24 23:06 Glucagon For Inj 1 Mg Vial IM PRN PRN Hypoglycemia Protocol Glucose 15 gm 04/22/24 23:06 Glucose Oral Gel 15 Gm Of Glucse In 37.5 Gm Tube PO PRN PRN Hypoglycemia Protocol Guaifenesin/Dextromethorphan 10 ml 05/15/24 10:07 05/20/24 21:19 Guaifenesin/Dextromethorphan 10 Ml Udc PO 10 ml Q4H PRN Administration Cough Hydralazine HCl 10 mg 04/25/24 08:00 05/21/24 05:44 Hydralazine Hcl 20 Mg/Ml Vial IV PUSH 10 mg Q4H PRN Administration Blood Pressure - High Dextrose 1,000 mls @ 100 mls/hr 04/22/24 23:06 Dextrose 5% 1,000 Ml IVPB PRN PRN Hypoglycemia Protocol Sodium Chloride 1,000 mls @ 125 mls/hr 05/18/24 07:55 05/21/24 11:44 Normal Saline Iv IV CONT 125 mls/hr .Q8H ROSY Administration Cefepime HCl 2 gm in 50 mls @ 100 mls/hr 05/18/24 09:00 05/21/24 09:38 Maxipime 2 Gm/Ns 50 Ml IVPB Infused Q12HR ROSY Infusion Metronidazole 500 mg in 100 mls @ 100 mls/hr 05/18/24 09:00 05/21/24 10:17 Flagyl 500 Mg/Iso Soln 100 Ml IVPB 100 mls/hr Q8H ROSY Administration Micafungin Sodium 100 mg/ 100 mls @ 100 mls/hr 05/18/24 09:00 05/21/24 11:39 Sodium Chloride IVPB 100 mls/hr DAILY ROSY Administration Vancomycin HCl 1,750 mg in 500 mls @ 250 mls/hr 05/20/24 22:00 05/21/24 03:28 Vancomycin 1,750 Mg/Ns 500 Ml IVPB Infused Q24H ROSY Infusion Ipratropium [place] 0.5 mg 05/04/24 09:32 05/17/24 10:11 Ipratropium Br 0.02% Inh Soln 0.5 Mg/2.5 Ml Vial INHALATION 0.5 mg Q6HRT PRN Administration Shortness Of Breath Levalbuterol HCl 0.63 mg 05/04/24 09:32 05/17/24 10:11 Levalbuterol Neb 1.25 Mg/3 Ml INHALATION 0.63 mg Q6HRT PRN Administration Shortness Of Breath Lidocaine 1 patch 05/18/24 09:00 05/21/24 09:09 Lidocaine 5% Patch TRANSDERM 1 patch DAILY ROSY Administration Lisinopril 40 mg 05/20/24 15:05 05/21/24 11:58 Lisinopril 20 Mg Tablet BY MOUTH 40 mg DAILY ROSY Administration Lorazepam 0.5 mg 05/16/24 13:48 05/17/24 23:07 Lorazepam (*Crx) 0.5 Mg Tablet PO 0.5 mg Q6H PRN Administration Anxiety Metoclopramide HCl 10 mg 05/16/24 18:00 05/21/24 11:58 Metoclopramide Hcl Inj 10 Mg/2 Ml Vial IV PUSH 10 mg Q6HR ROSY Administration Miscellaneous Information 0 each 05/20/24 00:01 Please Renew Morphine- 10 Day Stop For Narcotic XX 06/19/24 00:00 CLARIFY ROSY Morphine Sulfate 4 mg 04/22/24 22:02 05/20/24 17:43 Morphine Sulfate (*Crx) 4 Mg/Ml Inj IV PUSH 4 mg Q3H PRN Administration Pain Rated 7-10 Ondansetron HCl 4 mg 05/13/24 11:22 05/21/24 05:44 Ondansetron Inj 4 Mg/2 Ml Vial IV PUSH 4 mg Q6H PRN Administration Nausea And Vomiting Pantoprazole Sodium 40 mg 04/26/24 21:00 05/21/24 09:09 Pantoprazole Sodium Iv 40 Mg Vial IV PUSH 40 mg Q12HR ROSY Administration Perflutren Lipid Microsphere 0 ml 05/20/24 11:44 Perflutren Lipid Microspheres 1.5 Ml Vial Diluted To 10 Ml Total Volume IV PUSH 05/23/24 11:44 ONCE PRN adequate visualization Protocol Perflutren Lipid Microsphere 0 ml 05/20/24 12:16 Perflutren Lipid Microspheres 1.5 Ml Vial Diluted To 10 Ml Total Volume IV PUSH 05/23/24 12:16 ONCE PRN adequate visualization Protocol Sodium Chloride 10 ml 04/23/24 14:00 05/21/24 05:23 Central Line Flush IV PUSH 10 ml Q8HR ROSY Administration Sodium Chloride 20 ml 04/23/24 10:16 05/21/24 05:22 Central Line Flush IV PUSH 20 ml PRN PRN Administration after blood draws Sodium Chloride 10 ml 05/04/24 14:15 Central Line Flush IV PUSH PRN PRN with TPN bag changes Sodium Chloride 20 ml 05/04/24 14:15 05/18/24 06:18 Central Line Flush IV PUSH 20 ml PRN PRN Administration after blood draws Radiology Results: ITS Impressions Chest/Abdomen/Pelvis CTA 04/22/24 18:10 IMPRESSION: Perforated viscus with a large amount of free air and fluid, with mural thickening in the distal stomach and multiple punctate foci of extraluminal air in this area for which site of perforation is suspected. Renal Ultrasound 04/24/24 11:58 IMPRESSION: Simple cyst in the left kidney upper pole. Other appearances are unremarkable. Lower Extremity CTA 05/02/24 16:36 IMPRESSION: 1. Scattered atherosclerotic plaque in the arteries of the left lower limb as detailed above without a discrete hemodynamic significant stenosis. Runoff below the ankle in the left posterior tibial artery this supplies the foot. Atretic distal peroneal and anterior tibial arteries with intraluminal contrast becoming indiscernible at the level of the ankle and with no appreciable contrast in the dorsalis pedis artery. Chest/Abdomen/Pelvis CT 05/08/24 10:43 IMPRESSION: Findings suggesting air and possible fluid extending from the lumen of the antrum of the stomach, with a small anterior collection, as detailed above. Repeat evaluation with Gastrografin via the gastrostomy would provide additional information. Upper GI Series 05/09/24 09:31 IMPRESSION: 1. Ulcer of the gastric antrum with contained extraluminal contrast similar to 04/28/2024. The extraluminal contrast distribution is worse than typically seen after [place] patch repair. Abdomen CT 05/09/24 15:27 IMPRESSION: Redemonstration of a tract extending from the posterior superior margin of the antrum of the stomach only partially filled with oral contrast, perhaps demonstrating early healing. Abdomen/Pelvis CT 05/17/24 09:03 Impression: Persistent wall thickening of the gastric antrum/duodenum with surrounding haziness, compatible postoperative change. There is persistent irregular tract with small amount of fluid and external air extending from the gastric antrum superiorly/anteriorly, which could reflect abscess or persistent contained perforation. No extraluminal contrast seen, and no oral contrast seen within this collection. Intramuscular hematoma of the right iliopsoas and psoas major muscles, with additional irregular hematoma extending to the posterior right retroperitoneum. Bilateral fat-containing inguinal hernias. Small bilateral pleural effusions. Chest X-Ray 05/17/24 14:51 IMPRESSION: Left basilar atelectasis versus pneumonia. Clinical correlation advised. Labs Labs: Laboratory Results - last 24 hr 05/20/24 05/21/24 21:24 05:21 WBC 22.3 H RBC 2.85 L Hgb 8.5 L Hct 27.3 L MCV 95.8 MCH 29.8 MCHC 31.1 L RDW 16.6 H Plt Count 177 MPV 12.9 H Immature Gran % (Auto) Not Reportable Neut % (Auto) Not Reportable Lymph % (Auto) Not Reportable [facility] % (Auto) Not Reportable Eos % (Auto) Not Reportable Baso % (Auto) Not Reportable Lymph # (Auto) Not Reportable [facility] # (Auto) Not Reportable Eos # (Auto) Not Reportable Baso # (Auto) Not Reportable Abs Immat Gran (auto) Not Reportable Absolute Neuts (auto) Not Reportable Absolute Nucleated RBC Not Reportable Total Counted 100 Neutrophils % (Manual) 87 H Band Neutrophils % 4 Lymphocytes % (Manual) 6.0 L Monocytes % (Manual) 3 Nucleated RBC % Not Reportable Abs Neuts (Manual) 20.29 H Abs Lymphs (Manual) 1.33 Abs Monocytes (Manual) 0.66 Smudge Cells Present Platelet Estimate Adequate Anisocytosis 1+ Ovalocytes 1+ Crenated Cell 1+ Schistocytes None seen Sodium 137 Potassium 4.1 Chloride 110 H Carbon Dioxide 17 L Anion Gap 10 BUN 52 H Creatinine 1.61 H Estim Creat Clear Calc 51 Estimated GFR 42 L Glucose 98 Calcium 7.9 L Total Bilirubin 0.7 AST 26 ALT 21 Alkaline Phosphatase 137 H Total Protein 6.0 L Albumin 2.4 L Vancomycin Trough 13.3 WBC remains elevated at 22,000 two thousand but no left shift.
[2024-05-21 14:28] VITALS: BP 151/71; PULSE 88; RESP 16; TEMP 36.4; O2SAT 96
[2024-05-21] MEDS: droNABinol (*CRX) 2.5 MG CAPSULE PO (15:49)
[2024-05-21] MEDS: guaiFENesin/DEXTROMETHORPHAN 10 ML UDC PO ×2 (15:49→20:30)
[2024-05-21] MEDS: SODIUM BICARBONATE TAB 650 MG TABLET PO (17:43)
[2024-05-21 20:00] VITALS: PULSE 91; RESP 16; O2SAT 97
[2024-05-21 20:34] VITALS: BP 153/71; PULSE 91; RESP 16; TEMP 37.1; O2SAT 97
[2024-05-21] MEDS: VANCOMYCIN 1,750 MG/NS 500 ML 1,750 MG/500 ML BAG 250 MG IVPB (21:33)
[2024-05-22] MEDS: METOCLOPRAMIDE HCL INJ 10 MG/2 ML VIAL IV PUSH ×2 (00:50→05:32)
[2024-05-22] MEDS: metroNIDAZOLE 500 MG/ISO 100ML 500 MG/100 ML BAG 100 MG IVPB ×3 (01:22→16:29)
[2024-05-22] MEDS: guaiFENesin/DEXTROMETHORPHAN 10 ML UDC PO (01:23)
[2024-05-22] MEDS: CENTRAL LINE FLUSH 10 ML IV PUSH ×3 (05:32→21:02)
[2024-05-22 05:49] LABS: Basophils Absolute Auto 0.1 K/mm3 (0.0-0.1); Basophils Percent Auto 0.6 % (0.2-1.2); Eosinophils Absolute Auto 0.3 K/mm3 (0-0.3); Eosinophils Percent Auto 1.5 % (0-4.4); Hematocrit 28.1 % (42.0-52.0); Hemoglobin 8.8 g/dL (14.0-18.0); Immature Granulocyte Absolute 1.07 K/mm3 (0.00-0.031); Immature Granulocyte Percent A 5.3 % (0-0.5); Lymphocytes Absolute Auto 1.24 K/mm3 (0.9-3.2); Lymphocytes Percent Auto 6.1 % (18.3-44.2); Mean Corpuscular HGB Conc 31.3 g/dl (32-36); Mean Corpuscular Hemoglobin 29.7 pg (26-34); Mean Corpuscular Volume 94.9 fl (80-100); Mean Platelet Volume 12.6 fl (7.4-10.4); Monocytes Absolute Auto 1.4 K/mm3 (0.1-0.6); Monocytes Percent Auto 6.8 % (2.6-8.5); Neutrophils Absolute Auto 16.2 K/mm3 (1.3-6.7); Neutrophils Percent Auto 79.7 % (45.5-73.1); Platelet Count Result 189 k/mm3 (150-375); Red Blood Count 2.96 M/mm3 (4.6-6.20); Red Cell Distribution Width 16.7 % (11.5-14.5); White Blood Count 20.3 K/mm3 (4.5-10.0)
[2024-05-22 06:02] LABS: Alanine Aminotransferase 21 U/L (6-50); Albumin Level 2.4 g/dL (3.5-5.1); Alkaline Phosphatase 136 U/L (38-126); Anion Gap 7 mmol/L (4-12); Aspartate Amino Transferase 29 U/L (17-59); Bilirubin,Total 0.7 mg/dL (0.2-1.3); Blood Urea Nitrogen 49 mg/dL (9-20); Carbon Dioxide 20 mmol/L (22-30); Chloride 109 mmol/L (98-107); Estimated CRCL calculation 49 ml/min; Estimated Glomerular Filt Rate 39; Glucose 113 mg/dL (65-110); Sodium 136 mmol/L (137-145)
[2024-05-22 06:32] LABS: Large Platelets Present; Platelet Estimate Adequate (Adequate); Schistocytes None Seen
[2024-05-22 06:52] VITALS: BP 180/86; PULSE 94; RESP 16; TEMP 36.7; O2SAT 95
--- NOTE | 2024-05-22 06:55 | P.PNIM_ITS ---
Progress Note: A&P Assessment and Plan (1) Sepsis: Code(s): A41.9 - Sepsis, unspecified organism Status: Resolved Assessment and Plan: Meets SIRS criteria: Tachycardia, Febrile, Leukocytosis - lactic acid: 0.7 - suspected source: MRSA - blood cultures drawn on 05/18, MRSA + - UA: Cloudy, 1+ protein, otherwise unremarkable - Urine culture negative - Continue IV Vancomycin, consult pharmacy to dose, Cefepime 2 gram IV q12H, Micafungin and Flagyl 05/22 - Repeat Blood cultures on 05/20 initially showed no growth, but then showed continued growth of gram+ cocci - Will continue to monitor WBC and culture growth - Plan to repeat blood cultures to monitor Abx response (2) MRSA (methicillin resistant staph aureus) culture positive: Code(s): Z22.322 - Carrier or suspected carrier of Methicillin resistant Staphylococcus aureus Status: Acute Assessment and Plan: - See plan above - Nasal MRSA positive, BC MRSA positive - Started on IV Vanc for sepsis, continue - Initiated Mupirocin ointment - Continue IV Abx, narrow coverage when necessary - Trend WBC - 20.3 - Repeat Blood cultures on 05/20 initially showed no growth, but then showed continued growth of gram+ cocci (3) Bacteremia: Code(s): R78.81 - Bacteremia Status: Acute Assessment and Plan: * See plan above * Resulted positive for MRSA * Continue IV antibiotic regimen * Monitor blood cultures over next few days * BC on 05/18 + for MRSA, BC on 05/20 prelim + for Gram(+) cocci * Repeat BC drawn on 05/22, pending (4) Perforated abdominal viscus: Code(s): R19.8 - Other specified symptoms and signs involving the digestive system and abdomen Status: Acute Assessment and Plan: * Septic shock in setting of peritonitis with perforated gastric ulcer: * Shock has resolved * Status post exploratory laparotomy with repair of antral gastric ulcer with omental Clarence patch, open gastrostomy tube * CT of the abdomen 05/09: Redemonstration of a tract extending from the posterior superior margin of the antrum of the stomach only partially filled with oral contrast, perhaps demonstrating early healing. * Surgery is following, * Diet advanced to soft diet 05/22 * Wound healing well * Remaining ELSA drain removed * CT Chest/Abd/pelvis: Nodular opacities in the right upper lobe and right middle lobe, likely representing small infectious/inflammatory foci. Peritoneal gas anterior to the stomach secondary to antral perforation, with possible small adjacent abscess or fistulous tract. * Gen Surg made aware of persistent finding on CT abd/pelvis, will discuss with radiology and IR tomorrow * (5) Pneumonia: Code(s): J18.9 - Pneumonia, unspecified organism Status: Acute Assessment and Plan: Improving * Encourage IS use * Cornet therapy * nebs PRN * 05/13 finished antibiotics * Currently on room air 05/22 * Nodular opacities in the right upper lobe and right middle lobe, likely representing small infectious/inflammatory foci. * Afebrile * Currently on Cefepime, Flagyl, and Vanc * Continue Abx * WBC downtrending (6) Malnutrition following gastrointestinal surgery: Code(s): K91.2 - Postsurgical malabsorption, not elsewhere classified Status: Acute Assessment and Plan: * Passed swallow study. * Patient advanced to soft diet per General surgery recommendation * Continue to encourage po intake * Bolus tube feeding via G tube * add reglan and Marinol 05/22 * Repeat Swallow study to assess for aspiration * NPO until swallow study (7) Dysphagia: Code(s): R13.10 - Dysphagia, unspecified Status: Acute Assessment and Plan: * See plan above * NPO * Repeat swallow study ordered * continue tube feeding (8) Acute kidney injury superimposed on stage 3b chronic kidney disease: Code(s): N17.9 - Acute kidney failure, unspecified; N18.32 - Chronic kidney disease, stage 3b Status: Acute Assessment and Plan: * baseline creatinine most likely around 1.5 * Nephrology following * Renal ultrasound was unremarkable for any acute issues. * Restarted Lasix, holding IVF * Cr 4.03 -> 3.2 -> 2.16 -> 1.61 -> 1.73 * Continue trending (9) Hematoma: Code(s): T14.8XXA - Other injury of unspecified body region, initial encounter Status: Acute Assessment and Plan: * CT abdomen pelvis on 05/17/2024 shows: Intramuscular hematoma of the right iliopsoas and psoas major muscles, with additional irregular hematoma extending to the posterior right retroperitoneum. * Spoke with surgery likely noninfective * Lidocaine patch * Lovenox on hold, no recent found for therapeutic Lovenox, when patient was placed back on Lovenox likely benefit from the 40 mg (10) Pleural effusion: Code(s): J90 - Pleural effusion, not elsewhere classified Status: Acute Assessment and Plan: * Seen on CT * Chest x-ray dated compare * Likely due to 3rd spacing * Stable (11) Anemia: Code(s): D64.9 - Anemia, unspecified Status: Acute Assessment and Plan: Iron deficiency anemia on acute loss Stable * Trend CBC. * transfuse if hgb <7.0, or symptomatic * Iron replacement (12) HTN (hypertension): Code(s): I10 - Essential (primary) hypertension Status: Acute Assessment and Plan: Controlled * Continue Clonidine patch and Hydralazine PRN. * Trend BP (13) Generalized weakness: Code(s): R53.1 - Weakness Status: Acute Assessment and Plan: * PT/OT-maxi move use for transfer * Patient will likely need placement * No changes to current plan (14) Hypokalemia: Code(s): E87.6 - Hypokalemia Status: Acute Assessment and Plan: Improved * Trend labs * Replace as indicated (15) Hypernatremia: Code(s): E87.0 - Hyperosmolality and hypernatremia Status: Acute Assessment and Plan: Resolved Daily BMP Time Spent With Patient Time: 25 Subjective Date/time seen: 05/22/24 06:55 Interval history: Follow-up for acute kidney injury/acute renal failure on chronic kidney disease. 05/22/2024 Patient sitting in bed at time of examination, comfortable but tired appearing. At this time he denies any chest pain, shortness of breath, n/v or abdominal pain. He continues to look fluid overloaded upon clinical examination. Diuretics restarted yesterday, will continue to monitor. Lungs appear clear on exam. Remaining ELSA drain removed earlier today. Cultures redrawn on 05/20 continue to show gram + cocci in clusters, still unsure of source of MRSA. Repeat Chest/Abd/pelvis showed Peritoneal gas anterior to the stomach secondary to antral perforation, with possible small adjacent abscess or fistulous tract. Although this is consistent with previous abdominal CT scan, I spoke with Dr. Aguiar of general surgery regarding this and he stated that he will talk with radiology tomorrow to go over specific findings. Cardiology was also consulted regarding persistently positive blood cultures and possible need for EMPERATRIZ. They spoke with family regarding possible risks for this procedure, and given the patient's reason for admission being a gastric ulcer perforation and difficulties with previous attempts to pass NG tube into stomach, they agreed that treatment course can just be tailored to encompass endocarditis with close monitoring for c diff infection. Nursing staff also raised concerns regarding possible aspiration risk. Swallow study has been reordered and pt placed on NPO until this can be done. Review of Systems Review of Systems: 12 systems were reviewed and are negativ e except for as per HPI. All systems reviewed & are unremarkable except as noted in HPI and below Exam Narrative: General: Ill appearing, appears stated age. HEENT: normocephalic, atraumatic. Mucous membranes moist. EOMI, PERRLA, bilater al sclera anicteric, no conjunctival injection. Respiratory: clear to ascultation bilaterally. No rales/rhonic/wheezes. Cardiovascular: Regular rate and rhythm, normal S1-S2 upon ascultation. No mur murs, rubs, or clicks. Capillary refill less than 3 second. Abdomen: Soft, round, no pulsatile masses, nondistended and nontender. No rebound, no guarding. Bowel sounds present to all four quadrants. No high pitch or tinkling sounds. Extremities: 2 + edema to both LE. No cyanosis, clubbing present. Pulses are palpable 2/2. Active ROM to all four extremities. Neuro: Alert and orientated x 4. PERRLA. Cranial nerves 2-12 intact without focal deficit. Skin: Warm, dry, and intact, without rash, erythema, or lesion. Psych: pleasant, cooperative, normal speech, normal affect, no hallucinations, no dysarthia Skin: PEG tube, ELSA drain x [address], midline incision well approximated without redness or drainage. Const: General: comfortable, no acute distress and uncomfortable Other: Acutely ill-appearing, obese HENMT: Other: Mucous membranes are dry, head is normocephalic atraumatic, few missing teeth, bridge in the lower jaw Eyes: Other: Pupils are equal and reactive, no scleral icterus Neck: Other: No JVD, trachea midline Resp: Effort & Inspection: normal respiratory effort Auscultation: clear to auscultation bilaterally and diminished lung sounds Other: Cardio: Rate: regular rate Rhythm: regular rhythm GI: Auscultation: normal bowel sounds Other: Gastrostomy tube in place with dry gauze dressing and skin around the G-tube without erythema or drainage. Incision dry with steri strips intact, no erythema. Slightly distended. Skin: Other: Generally cold to touch, 2nd cap refill, fingers and toes are cyanotic Neuro: Speech: normal speech Extrem: General: pedal edema bilaterally 2+ Other: 1+PP bilateral feet are warm. Psych: Mental Status: mental status grossly normal Affect: normal affect Objective Data Vital Signs Vital Signs: Vital Signs - 24 hr 04/12/25 08:15 05/21/24 08:47 05/21/24 14:28 Temperature 97.6 F Pulse Rate 88 Respiratory Rate 16 Blood Pressure 167/77 H 151/71 H Pulse Oximetry 96 Oxygen Delivery Room Air Fraction of Inspired Oxygen 05/21/24 20:00 05/21/24 20:34 Temperature 98.8 F Pulse Rate 91 91 Respiratory Rate 16 16 Blood Pressure 153/71 H Pulse Oximetry 97 97 Oxygen Delivery Room Air Fraction of Inspired Oxygen 21 Intake/Output Intake/Output: Intake & Output 05/19/24 05/20/24 05/21/24 05/22/24 23:59 23:59 23:59 23:59 Intake Total 4691.3 2645 4180 Output Total 700 1020 2150 Balance 3991.3 1625 2030 Meds/Results Medications: Active Medications Generic Name Dose Route Start Last Admin Trade Name Freq PRN Reason Stop Dose Admin Acetaminophen 650 mg 04/26/24 22:19 04/26/24 22:57 Acetaminophen 650 Mg Suppository RECTAL 650 mg Q6H PRN Administration Mild Pain (1-3) or Fever Acetaminophen 650 mg 05/05/24 10:27 05/20/24 05:31 Acetaminophen Elixir 325 Mg/10.15 Ml Udc PO 650 mg Q6H PRN Administration Mild Pain (1-3) or Fever Artificial Tears 1 drop 04/27/24 08:37 Artificial Tears Ophth Soln 15 Ml Bottle EACH EYE QID PRN Dry Eye(s) Atorvastatin Calcium 20 mg 04/30/24 09:00 Atorvastatin 20 Mg Tablet BY MOUTH DAILY ROSY Benzocaine 1 lozenge 05/15/24 15:35 05/21/24 12:14 Benzocaine/Menthol (*Bkc) 18 Ea Lozenge PO 1 lozenge PRN PRN Administration Sore Throat Calcium Carbonate 500 mg 05/19/24 08:00 05/21/24 09:10 Calcium/Vitamin D 500 Mg/5 Mcg (200 I.U.) Tablet PO 500 mg DAILY@0800 ROSY Administration Clonidine HCl 1 patch 05/01/24 09:00 05/15/24 08:47 Clonidine 0.1 Mg/24 Hr Patch TRANSDERM 1 patch WEEKLY ROSY Administration Dextrose 12.5 gm 04/22/24 23:06 Dextrose 50% 25 Gm/50 Ml Syringe IV PUSH PRN PRN Hypoglycemia Protocol Dronabinol 2.5 mg 05/17/24 16:30 05/21/24 15:49 Dronabinol (*Crx) 2.5 Mg Capsule PO 2.5 mg DAILY@1630 ROSY Administration Enoxaparin Sodium 120 mg 05/09/24 06:00 05/17/24 05:05 Enoxaparin 120 Mg/0.8 Ml Syringe SUB-Q 120 mg Q24H ROSY Administration Epoetin Olu-epbx 10,000 units 05/14/24 11:05 05/21/24 09:11 Epoetin Olu-Epbx 10,000 Units/Ml Vial SUB-Q 10,000 units TUTHSA@09 ROSY Administration Furosemide 40 mg 05/21/24 10:35 Furosemide 40 Mg Tablet PO QAM ROSY Glucagon 1 mg 04/22/24 23:06 Glucagon For Inj 1 Mg Vial IM PRN PRN Hypoglycemia Protocol Glucose 15 gm 04/22/24 23:06 Glucose Oral Gel 15 Gm Of Glucse In 37.5 Gm Tube PO PRN PRN Hypoglycemia Protocol Guaifenesin/Dextromethorphan 10 ml 05/15/24 10:07 05/22/24 01:23 Guaifenesin/Dextromethorphan 10 Ml Udc PO 10 ml Q4H PRN Administration Cough Hydralazine HCl 10 mg 04/25/24 08:00 05/21/24 05:44 Hydralazine Hcl 20 Mg/Ml Vial IV PUSH 10 mg Q4H PRN Administration Blood Pressure - High Dextrose 1,000 mls @ 100 mls/hr 04/22/24 23:06 Dextrose 5% 1,000 Ml IVPB PRN PRN Hypoglycemia Protocol Sodium Chloride 1,000 mls @ 125 mls/hr 05/18/24 07:55 05/21/24 11:44 Normal Saline Iv IV CONT 125 mls/hr .Q8H ROSY Administration Cefepime HCl 2 gm in 50 mls @ 100 mls/hr 05/18/24 09:00 05/21/24 20:23 Maxipime 2 Gm/Ns 50 Ml IVPB 100 mls/hr Q12HR ROSY Administration Metronidazole 500 mg in 100 mls @ 100 mls/hr 05/18/24 09:00 05/22/24 01:22 Flagyl 500 Mg/Iso Soln 100 Ml IVPB 100 mls/hr Q8H ROSY Administration Micafungin Sodium 100 mg/ 100 mls @ 100 mls/hr 05/18/24 09:00 05/21/24 12:39 Sodium Chloride IVPB Infused DAILY ROSY Infusion Vancomycin HCl 1,750 mg in 500 mls @ 250 mls/hr 05/20/24 22:00 05/21/24 21:33 Vancomycin 1,750 Mg/Ns 500 Ml IVPB 250 mls/hr Q24H ROSY Administration Ipratropium [place] 0.5 mg 05/04/24 09:32 05/17/24 10:11 Ipratropium Br 0.02% Inh Soln 0.5 Mg/2.5 Ml Vial INHALATION 0.5 mg Q6HRT PRN Administration Shortness Of Breath Levalbuterol HCl 0.63 mg 05/04/24 09:32 05/17/24 10:11 Levalbuterol Neb 1.25 Mg/3 Ml INHALATION 0.63 mg Q6HRT PRN Administration Shortness Of Breath Lidocaine 1 patch 05/18/24 09:00 05/21/24 09:09 Lidocaine 5% Patch TRANSDERM 1 patch DAILY ROSY Administration Lisinopril 40 mg 05/20/24 15:05 05/21/24 11:58 Lisinopril 20 Mg Tablet BY MOUTH 40 mg DAILY ROSY Administration Lorazepam 0.5 mg 05/16/24 13:48 05/17/24 23:07 Lorazepam (*Crx) 0.5 Mg Tablet PO 0.5 mg Q6H PRN Administration Anxiety Metoclopramide HCl 10 mg 05/16/24 18:00 05/22/24 05:32 Metoclopramide Hcl Inj 10 Mg/2 Ml Vial IV PUSH 10 mg Q6HR ROSY Administration Miscellaneous Information 0 each 05/20/24 00:01 Please Renew Morphine- 10 Day Stop For Narcotic XX 06/19/24 00:00 CL[facility]IFY [facility] Miscellaneous Information 1 each 05/22/24 00:01 Order Clarification XX 06/21/24 00:00 CLARIFY ROSY Ondansetron HCl 4 mg 05/13/24 11:22 05/21/24 05:44 Ondansetron Inj 4 Mg/2 Ml Vial IV PUSH 4 mg Q6H PRN Administration Nausea And Vomiting Pantoprazole Sodium 40 mg 04/26/24 21:00 05/21/24 20:23 Pantoprazole Sodium Iv 40 Mg Vial IV PUSH 40 mg Q12HR ROSY Administration Perflutren Lipid Microsphere 0 ml 05/20/24 11:44 Perflutren Lipid Microspheres 1.5 Ml Vial Diluted To 10 Ml Total Volume IV PUSH 05/23/24 11:44 ONCE PRN adequate visualization Protocol Perflutren Lipid Microsphere 0 ml 05/20/24 12:16 Perflutren Lipid Microspheres 1.5 Ml Vial Diluted To 10 Ml Total Volume IV PUSH 05/23/24 12:16 ONCE PRN adequate visualization Protocol Sodium Bicarbonate 650 mg 05/21/24 17:00 05/21/24 17:43 Sodium Bicarbonate Tab 650 Mg Tablet PO 05/24/24 09:01 650 mg BID ROSY Administration Sodium Chloride 10 ml 04/23/24 14:00 05/22/24 05:32 Central Line Flush IV PUSH 10 ml Q8HR ROSY Administration Sodium Chloride 20 ml 04/23/24 10:16 05/21/24 05:22 Central Line Flush IV PUSH 20 ml PRN PRN Administration after blood draws Sodium Chloride 10 ml 05/04/24 14:15 Central Line Flush IV PUSH PRN PRN with TPN bag changes Sodium Chloride 20 ml 05/04/24 14:15 05/18/24 06:18 Central Line Flush IV PUSH 20 ml PRN PRN Administration after blood draws Radiology Results: ITS Impressions Chest/Abdomen/Pelvis CTA 04/22/24 18:10 IMPRESSION: Perforated viscus with a large amount of free air and fluid, with mural thickening in the distal stomach and multiple punctate foci of extraluminal air in this area for which site of perforation is suspected. Renal Ultrasound 04/24/24 11:58 IMPRESSION: Simple cyst in the left kidney upper pole. Other appearances are unremarkable. Lower Extremity CTA 05/02/24 16:36 IMPRESSION: 1. Scattered atherosclerotic plaque in the arteries of the left lower limb as detailed above without a discrete hemodynamic significant stenosis. Runoff below the ankle in the left posterior tibial artery this supplies the foot. Atretic distal peroneal and anterior tibial arteries with intraluminal contrast becoming indiscernible at the level of the ankle and with no appreciable contrast in the dorsalis pedis artery. Chest/Abdomen/Pelvis CT 05/08/24 10:43 IMPRESSION: Findings suggesting air and possible fluid extending from the lumen of the antrum of the stomach, with a small anterior collection, as detailed above. Repeat evaluation with Gastrografin via the gastrostomy would provide additional information. Upper GI Series 05/09/24 09:31 IMPRESSION: 1. Ulcer of the gastric antrum with contained extraluminal contrast similar to 04/28/2024. The extraluminal contrast distribution is worse than typically seen after Clarence patch repair. Abdomen CT 05/09/24 15:27 IMPRESSION: Redemonstration of a tract extending from the posterior superior margin of the antrum of the stomach only partially filled with oral contrast, perhaps demonstrating early healing. Abdomen/Pelvis CT 05/17/24 09:03 Impression: Persistent wall thickening of the gastric antrum/duodenum with surrounding haziness, compatible postoperative change. There is persistent irregular tract with small amount of fluid and external air extending from the gastric antrum superiorly/anteriorly, which could reflect abscess or persistent contained perforation. No extraluminal contrast seen, and no oral contrast seen within this collection. Intramuscular hematoma of the right iliopsoas and psoas major muscles, with additional irregular hematoma extending to the posterior right retroperitoneum. Bilateral fat-containing inguinal hernias. Small bilateral pleural effusions. Chest X-Ray 05/17/24 14:51 IMPRESSION: Left basilar atelectasis versus pneumonia. Clinical correlation advised. Labs Labs: Laboratory Results - last 24 hr 05/22/24 05:42 WBC 20.3 H RBC 2.96 L Hgb 8.8 L Hct 28.1 L MCV 94.9 MCH 29.7 MCHC 31.3 L RDW 16.7 H Plt Count 189 MPV 12.6 H Immature Gran % (Auto) 5.3 H Neut % (Auto) 79.7 H Lymph % (Auto) 6.1 L Nicholas % (Auto) 6.8 Eos % (Auto) 1.5 Baso % (Auto) 0.6 Lymph # (Auto) 1.24 Nicholas # (Auto) 1.4 H Eos # (Auto) 0.3 Baso # (Auto) 0.1 Abs Immat Gran (auto) 1.07 H Absolute Neuts (auto) 16.2 H Absolute Nucleated RBC 0.000 Band Neutrophils % Not Reportable Nucleated RBC % 0.0 Platelet Estimate Adequate Large Platelets Present Schistocytes None seen Sodium 136 L Potassium 4.0 Chloride 109 H Carbon Dioxide 20 L Anion Gap 7 BUN 49 H Creatinine 1.73 H Estim Creat Clear Calc 49 Estimated GFR 39 L Glucose 113 H Calcium 8.0 L Total Bilirubin 0.7 AST 29 ALT 21 Alkaline Phosphatase 136 H Total Protein 6.0 L Albumin 2.4 L Quality VTE Prophylaxis VTE prophylaxis: mechanical ordered and pharmacologic ordered
[2024-05-22] MEDS: CEFEPIME 2 GM/NS 50 ML 2 GM/50 ML BAG IVPB ×2 (08:59→20:28)
[2024-05-22] MEDS: lisinopriL 20 MG TABLET 40 MG BY MOUTH (09:04)
[2024-05-22] MEDS: FUROSEMIDE 40 MG TABLET PO (09:04)
[2024-05-22] MEDS: CALCIUM/VITAMIN D 500 MG/5 MCG (200 I.U.) TABLET PO (09:04)
[2024-05-22 09:05] VITALS: PULSE 93; RESP 18; O2SAT 100
[2024-05-22] MEDS: SODIUM BICARBONATE TAB 650 MG TABLET PO ×2 (09:05→16:24)
[2024-05-22] MEDS: LIDOCAINE 5% PATCH 1 PATCH TRANSDERM (09:05)
[2024-05-22 09:25] VITALS: BP 176/77; PULSE 93; RESP 18; TEMP 36.1; O2SAT 100
[2024-05-22] MEDS: cloNIDine 0.1 MG/24 HR PATCH 1 PATCH TRANSDERM (09:26)
[2024-05-22] MEDS: LORazepam (*CRX) 0.5 MG TABLET PO (09:54)
[2024-05-22] MEDS: MICAFUNGIN SODIUM 100 MG in SODIUM CHLORIDE 0.9% IV 100 ML IVPB (10:50)
--- NOTE | 2024-05-22 12:29 | P.CONCA_ITS ---
Assessment and Plan Assessment and plan (1) Bacteremia: Code(s): R78.81 - Bacteremia Status: Acute Plan 78-year-old man with hypertension, hyperlipidemia, perforated appendix status post resection 2022, and umbilical hernia repair presented last month with abdominal pain found to have gastric perforation now status post Clarence patch repair has been recently found to have persistent bacteremia for which transesophageal echocardiogram has been requested Bacteremia -there does not appear to be any severe valvular abnormalities on surface echocardiogram -have discussed with the family at bedside and on the phone, that typically we would proceed with a transesophageal echocardiogram to rule out endocarditis as it typically would affect the duration of antibiotic therapy however given his admission for gastric ulcer perforation with an inability to pass NG tube into the stomach due to inability to pass through a portion of the esophagus leading to G-tube placement for decompression, the risk of attempting to pass the much larger joseph probe into the esophagus is prohibitively high and therefore, we would recommend treatment duration to encompass endocarditis to which the family agreed with the caveat to monitor for C diff infection much closer -we have also discussed stronger indications for JOSEPH assessment such as development significant decompensated heart failure with clinical high suspicion for etiology of valvular heart disease would cause us to re-evaluate and to attempt JOSEPH at that time -in the meantime, we could repeat post study transthoracic echocardiogram in 1-2 weeks to ensure no development of valvular heart disease Volume overload -likely secondary to hypoalbumin state as well as renal injury -diuretics per Nephrology, however it would advise net negative balance and currently he appears to be net positive Hyperlipidemia -statins currently on hold History of Present Illness History of Present Illness Consult date/time: 05/22/24 12:29 Requesting physician: Joni Jon PA-C Consult reason: Other Reason For Visit: Abdominal Pain Narrative: 78-year-old man with hypertension, hyperlipidemia, perforated appendix status post resection 2022, and umbilical hernia repair presented last month with abdominal pain found to have gastric perforation now status post Clarence patch repair has been recently found to have persistent bacteremia for which transesophageal echocardiogram has been requested. The patient himself appears very weak while laying in bed and immediately falls back to sleep after every question and answer. He does have some mild shortness of breath however denies any orthopnea as high lower his bed to 0 degree angle. Denies any chest pain. He does have diffuse whole-body swelling. Review of Systems 2 Review of Systems: ROS unobtainable: Yes unobtainable due to medical condition [facility] Past Medical History Medical History (Updated 05/19/24 @ 07:48 by Joni Jon PA-C) Perforated gastric ulcer (04/2024) Repair 05/03 PAD (peripheral artery disease) Acute perforated appendicitis Piriformis syndrome Trochanteric bursitis, right hip Lumbar stenosis Low Back Pain Arthritis Colon polyps (07/02/22) Umbilical hernia HTN (hypertension) Hypercholesterolemia Surgical History Surgical History (Updated 04/24/24 @ 13:25 by Ibrahima Bird MD) History of abdominal surgery (04/2024) Repair perforated gastric ulcer History of appendectomy (06/2022) Perforated appemdix H/O Spinal surgery (1984) H/O umbilical hernia repair (2011) Hx of tonsillectomy Family History Family History Father Acute myocardial infarction Heart disease Alzheimer disease Mother Acute myocardial infarction Heart disease Alzheimer disease Social History Social History Social History: Code status: Full code Surrogate decision maker: Erika () Smoking status: Never smoker Second hand tobacco smoke exposure: Yes Alcohol intake: never Alcohol use details: Occasional Substance use: never Substance use type: does not use Lack of Transportation: No Lack of Food: Never True Current Housing: I Have Housing Concerned About Future Housing: No Difficulty Paying Gas/Electric Bills: No Difficulty Paying for Meds: No Currently Unemployed: No Education: Master's Degree or Higher Difficulty w/ Childcare or Family Care: No Living arrangements: with family Occupation/Education: retired Gender identity (if verbalized by the patient): Male Spiritual care concerns: No Agree to blood products: Yes Meds Home Medications and Allergies Home Medications ?Medication ?Instructions ?Recorded ?Confirmed ?Type aspirin 325 mg tablet 325 mg PO DAILY PRN fever 09/13/21 04/24/24 History fexofenadine 180 mg tablet 180 mg PO DAILY PRN contact 09/13/21 04/24/24 History dermititis gabapentin 300 mg capsule 600 mg PO Q12H 12/20/21 04/24/24 History hydrochlorothiazide 25 mg tablet 25 mg PO DAILY 07/23/23 04/24/24 History lisinopril 40 mg tablet See Rx Instructions .Route 11/09/23 04/23/24 Rx .COMPLEX #90 tabs furosemide 40 mg tablet 40 mg PO QAM #90 tabs 02/03/24 04/23/24 Rx tramadol 50 mg tablet 50 mg PO Q4H PRN pain #90 tabs 02/08/24 04/23/24 Rx diclofenac sodium 75 mg See Rx Instructions .Route 02/16/24 04/23/24 Rx tablet,delayed release .COMPLEX #180 tabs atorvastatin 20 mg tablet See Rx Instructions .Route 03/06/24 04/23/24 Rx .COMPLEX #90 tabs Allergies Allergy/AdvReac Type Severity Reaction Status Date / Time nickel Allergy Mild Other Verified 12/01/23 15:22 cetirizine (From Zyrte) Allergy Unknown Unknown Verified 04/24/24 14:15 cephalexin AdvReac Severe Rash Verified 12/01/23 15:22 Vital Signs Vital Signs - 24 hr 05/21/24 14:28 05/21/24 20:00 05/21/24 20:34 Temperature 36.4 C 37.1 C Pulse Rate 88 91 91 Respiratory Rate 16 16 16 Blood Pressure 151/71 H 153/71 H Pulse Oximetry 96 97 97 Oxygen Delivery Room Air Fraction of Inspired Oxygen 21 05/22/24 06:52 05/22/24 09:05 05/22/24 09:25 Temperature 36.7 C 36.1 C L Pulse Rate 94 93 93 Respiratory Rate 16 18 18 Blood Pressure 180/86 H 176/77 H Pulse Oximetry 95 100 100 Oxygen Delivery Room Air Fraction of Inspired Oxygen 21 Exam 2 Const: Other: Ill-appearing HENMT: Mouth: Yes moist mucous membranes Eyes: EOM: EOMs intact bilaterally Neck: Neck: no JVD Resp: Effort & Inspection: normal respiratory effort Auscultation: clear to auscultation bilaterally Cardio: Rate: regular rate Rhythm: regular rhythm Extrem: General: edema Results Labs and Meds 05/22/24 05:42 05/22/24 05:42 Lab results: Cardiac Enzymes 05/22/24 Range/Units 05:42 AST 29 (17-59) U/L CBC 05/22/24 Range/Units 05:42 WBC 20.3 H (4.5-10.0) K/mm3 RBC 2.96 L (4.6-6.20) M/mm3 Hgb 8.8 L (14.0-18.0) g/dL Hct 28.1 L (42.0-52.0) % Plt Count 189 (150-375) k/mm3 Lymph # (Auto) 1.24 (0.9-3.2) K/mm3 [place] # (Auto) 1.4 H (0.1-0.6) K/mm3 Eos # (Auto) 0.3 (0-0.3) K/mm3 Baso # (Auto) 0.1 (0.0-0.1) K/mm3 Comprehensive Metabolic Panel 05/22/24 Range/Units 05:42 Sodium 136 L (137-145) mmol/L Potassium 4.0 (3.4-5.0) mmol/L Chloride 109 H (98-107) mmol/L Carbon Dioxide 20 L (22-30) mmol/L BUN 49 H (9-20) mg/dL Creatinine 1.73 H (0.7-1.3) mg/dL Glucose 113 H (65-110) mg/dL Calcium 8.0 L (8.4-10.2) mg/dL AST 29 (17-59) U/L ALT 21 (6-50) U/L Alkaline Phosphatase 136 H (38-126) U/L Total Protein 6.0 L (6.3-8.2) g/dL Albumin 2.4 L (3.5-5.1) g/dL Intake and Output 05/21/24 05/22/24 05/22/24 23:59 07:59 15:59 Intake Total 890 350 730 Output Total 1350 950 Balance -460 -600 730 Intake: IV 150 100 250 Cefepime 2 gm/Ns 50 ml 2 gm In 50 50 50 ml @ 100 mls/hr IVPB Q12HR ROSY Rx#:[id number] Micafungin Sodium 100 mg In 100 Sodium Chloride 0.9% IV 100 ml @ 100 mls/hr IVPB DAILY ROSY Rx# :[id number] metroNIDAZOLE 500 MG/ISO 100ML 100 100 100 500 mg In 100 ml @ 100 mls/hr IVPB Q8H ROSY Rx#:[id number] Oral 400 250 140 Tube Feeding 240 240 Tube Flush 100 100 Output: Catheter Urine 1350 950 External/Condom 1350 950 Other: Number of Bowel Movements Today 1 1
--- NOTE | 2024-05-22 12:58 | P.PNNP_ITS ---
Progress Note: A&P Assessment and Plan (1) Acute kidney injury: Code(s): N17.9 - Acute kidney failure, unspecified Status: Acute Assessment and Plan: * better by recent labs * had improved to baseline (1.5mg/dl) on 04/30 * then georgette to the low 4ish range * now improving again * suspect initial insult to be of multifactorial etiology: * NSAID use * hypotension/hemodynmic instability/shock * sepsis/infection * third spacing * evaluation to date: * CT shows normal kidneys * renal u/s with simple cyst x 1 o/w unremarkable. * urine electrolytes are prerenal * CPK mildly elevated (but not enough to affect kidneys) * urine eosinophils negative * mild proteinuria * another acute insult noted by recent labs (since 05/02): * possible due to pre-renal factors, infection (UTI +/- pneumonia versus gastric leak) * recent imaging noted - no evidence of gastric leak * repeat urine studies (on 05/08) suggestive of UTI and prerenal azotemia * despite prerenal urine electrolytes, he has evidence of volume overload again * suspect related to 3rd spacing and hypoalbuminemia * recent echocardiogram shows good LV function and no pulmonary hypertension * good diuresis/UOP with IV albumin and IV lasix previously... * restarted IV albumin + IV bumex today x 6 doses * follow trend of urine output and I/Os with this intervention * follow trend of repeat labs and UOP (2) Stage 3b chronic kidney disease: Code(s): N18.32 - Chronic kidney disease, stage 3b Status: Chronic Assessment and Plan: * creatinine ~ 1.5mg/dl in November 2023 * suspect secondary to hypertension, peripheral vascular disease, and possibly chronic NSAID use as well as age-related change (3) Bacteremia: Code(s): R78.81 - Bacteremia Status: Acute Assessment and Plan: * blood cultures with MRSA * continue IV antibiotics * follow repeat blood cultures * source? (4) Perforated gastric ulcer: Onset Date: 04/2024 Qualifiers: Gastric ulcer chronicity: acute Qualified Code(s): K25.1 - Acute gastric ulcer with perforation Code(s): K25.5 - Chronic or unspecified gastric ulcer with perforation Status: Acute Assessment and Plan: * suspect secondary to NSAID use * s/p exploratory laparotomy and repair of antral gastric ulcer with omental Clarence patch and placement of open gastrostomy tube (on 04/22) * TPN discontinued * bolus G-tube feedings with meals; continue oral feeding * General Surgery following (5) Hematoma: Code(s): T14.8XXA - Other injury of unspecified body region, initial encounter Status: Acute Assessment and Plan: * as noted by CT abdomen pelvis on 05/17/2024 * likely a contributing component to anemia * Lovenox on hold (6) Anemia: Code(s): D64.9 - Anemia, unspecified Status: Acute Assessment and Plan: * noted acute drop (on 05/10, 05/11, and 05/12) requiring blood transfusion * due to RIC, CKD, and acute illness along with CT scan findings on 05/17: * Intramuscular hematoma of the right iliopsoas and psoas major muscles, with additional irregular hematoma extending to the posterior right retroperitoneum * anemia studies also note iron deficiency * PRBC transfusion per protocol * on Epogen 3x/week (7) PAD (peripheral artery disease): Code(s): I73.9 - Peripheral vascular disease, unspecified Status: Acute Assessment and Plan: * CTA of left lower extremity noted * suspect acute on chronic issue * was on anticoagulation but on hold due to #5 (8) Malnutrition following gastrointestinal surgery: Code(s): K91.2 - Postsurgical malabsorption, not elsewhere classified Status: Chronic Assessment and Plan: * off TPN * tube feeds ongoing with boluses * attempting to transition to oral intake (but poor appetite noted) * on appetite stimulant (9) HTN (hypertension): Code(s): I10 - Essential (primary) hypertension Status: Acute Assessment and Plan: * reasonable control * follow trend of hemodynamics (10) Generalized weakness: Code(s): R53.1 - Weakness Status: Acute Assessment and Plan: * multifactorial * PT/OT as tolerated Will continue to follow. L Subjective Date/time seen: 05/22/24 12:58 Interval history: Follow-up for acute kidney injury/acute renal failure on chronic kidney disease. Renal function/creatinine a tad higher by recent labs but continues to make reasonable urine output and started on diuretics yesterday; ongoing positive blood culture noted (05/18 and 05/20) as well; no apparent distress but report fatigue and generalized weakness at the time of my visit; nursing apparently had concerns about aspiration so swallow study re-ordered and made NPO for now. Exam 2 Narrative: General: elderly but WD/WN male in NAD Heart: normal S1 and S2; no rub Lungs: clear anteriorly; decreased at bases Abdomen: soft, nontender; some bowel sounds; +G-tube Extremities: no cyanosis or clubbing; 2+ edema Skin: no rash Objective Data Vital Signs Vital Signs: Vital Signs Temp Pulse Resp BP Pulse Ox O2 Del Method FiO2 05/22/24 12:00 97.2 F L 84 17 167/81 H 99 05/22/24 09:25 96.9 F L 93 18 176/77 H 100 05/22/24 09:05 93 18 100 Room Air 21 05/22/24 06:52 98.1 F 94 16 180/86 H 95 05/21/24 20:34 98.8 F 91 16 153/71 H 97 05/21/24 20:00 91 16 97 Room Air 21 Intake/Output Intake/Output: Intake & Output 05/19/24 05/20/24 05/21/24 05/22/24 23:59 23:59 23:59 23:59 Intake Total 4691.3 2645 4230 1760 Output Total 700 1020 2150 1700 Balance 3991.3 1625 2080 60 Meds/Results Medications: Active Medications Generic Name Dose Route Start Last Admin Trade Name Freq PRN Reason Stop Dose Admin Acetaminophen 650 mg 04/26/24 22:19 04/26/24 22:57 Acetaminophen 650 Mg Suppository RECTAL 650 mg Q6H PRN Administration Mild Pain (1-3) or Fever Acetaminophen 650 mg 05/05/24 10:27 05/20/24 05:31 Acetaminophen Elixir 325 Mg/10.15 Ml Udc PO 650 mg Q6H PRN Administration Mild Pain (1-3) or Fever Artificial Tears 1 drop 04/27/24 08:37 Artificial Tears Ophth Soln 15 Ml Bottle EACH EYE QID PRN Dry Eye(s) Atorvastatin Calcium 20 mg 04/30/24 09:00 Atorvastatin 20 Mg Tablet BY MOUTH DAILY ROSY Benzocaine 1 lozenge 05/15/24 15:35 05/21/24 12:14 Benzocaine/Menthol (*Bkc) 18 Ea Lozenge PO 1 lozenge PRN PRN Administration Sore Throat Bumetanide 1.5 mg 05/22/24 17:00 05/22/24 16:25 Bumetanide Inj 1 Mg/4 Ml Vial IV PUSH 05/24/24 09:01 1.5 mg BID ROSY Administration Calcium Carbonate 500 mg 05/19/24 08:00 05/22/24 09:04 Calcium/Vitamin D 500 Mg/5 Mcg (200 I.U.) Tablet PO 500 mg DAILY@0800 [facility] Administration Clonidine HCl 1 patch 05/01/24 09:00 05/22/24 09:26 Clonidine 0.1 Mg/24 Hr Patch TRANSDERM 1 patch WEEKLY ROSY Administration Dextrose 12.5 gm 04/22/24 23:06 Dextrose 50% 25 Gm/50 Ml Syringe IV PUSH PRN PRN Hypoglycemia Protocol Dronabinol 2.5 mg 05/17/24 16:30 05/22/24 15:58 Dronabinol (*Crx) 2.5 Mg Capsule PO Not Given DAILY@1630 [facility] Enoxaparin Sodium 120 mg 05/09/24 06:00 05/17/24 05:05 Enoxaparin 120 Mg/0.8 Ml Syringe SUB-Q 120 mg Q24H ROSY Administration Epoetin Olu-epbx 10,000 units 05/14/24 11:05 05/21/24 09:11 Epoetin Olu-Epbx 10,000 Units/Ml Vial SUB-Q 10,000 units TUTHSA@09 [facility] Administration Glucagon 1 mg 04/22/24 23:06 Glucagon For Inj 1 Mg Vial IM PRN PRN Hypoglycemia Protocol Glucose 15 gm 04/22/24 23:06 Glucose Oral Gel 15 Gm Of Glucse In 37.5 Gm Tube PO PRN PRN Hypoglycemia Protocol Guaifenesin/Dextromethorphan 10 ml 05/15/24 10:07 05/22/24 01:23 Guaifenesin/Dextromethorphan 10 Ml Udc PO 10 ml Q4H PRN Administration Cough Hydralazine HCl 10 mg 04/25/24 08:00 05/21/24 05:44 Hydralazine Hcl 20 Mg/Ml Vial IV PUSH 10 mg Q4H PRN Administration Blood Pressure - High Dextrose 1,000 mls @ 100 mls/hr 04/22/24 23:06 Dextrose 5% 1,000 Ml IVPB PRN PRN Hypoglycemia Protocol Cefepime HCl 2 gm in 50 mls @ 100 mls/hr 05/18/24 09:00 05/22/24 09:29 Maxipime 2 Gm/Ns 50 Ml IVPB Infused Q12HR ROSY Infusion Metronidazole 500 mg in 100 mls @ 100 mls/hr 05/18/24 09:00 05/22/24 16:29 Flagyl 500 Mg/Iso Soln 100 Ml IVPB 100 mls/hr Q8H ROSY Administration Micafungin Sodium 100 mg/ 100 mls @ 100 mls/hr 05/18/24 09:00 05/22/24 11:50 Sodium Chloride IVPB Infused DAILY ROSY Infusion Vancomycin HCl 1,750 mg in 500 mls @ 250 mls/hr 05/20/24 22:00 05/21/24 21:33 Vancomycin 1,750 Mg/Ns 500 Ml IVPB 250 mls/hr Q24H ROSY Administration Albumin Human 50 mls @ 50 mls/hr 05/22/24 17:00 05/22/24 16:01 Albutein IVPB 05/24/24 09:59 50 mls/hr BID ROSY Administration Ipratropium [place] 0.5 mg 05/04/24 09:32 05/17/24 10:11 Ipratropium Br 0.02% Inh Soln 0.5 Mg/2.5 Ml Vial INHALATION 0.5 mg Q6HRT PRN Administration Shortness Of Breath Levalbuterol HCl 0.63 mg 05/04/24 09:32 05/17/24 10:11 Levalbuterol Neb 1.25 Mg/3 Ml INHALATION 0.63 mg Q6HRT PRN Administration Shortness Of Breath Lidocaine 1 patch 05/18/24 09:00 05/22/24 09:05 Lidocaine 5% Patch TRANSDERM 1 patch DAILY ROSY Administration Lisinopril 40 mg 05/20/24 15:05 05/22/24 09:04 Lisinopril 20 Mg Tablet BY MOUTH 40 mg DAILY ROSY Administration Lorazepam 0.5 mg 05/16/24 13:48 05/22/24 09:54 Lorazepam (*Crx) 0.5 Mg Tablet PO 0.5 mg Q6H PRN Administration Anxiety Miscellaneous Information 0 each 05/20/24 00:01 Please Renew Morphine- 10 Day Stop For Narcotic XX 06/19/24 00:00 CLARIFY ROSY Miscellaneous Information 1 each 05/22/24 00:01 Order Clarification XX 06/21/24 00:00 CLARIFY ROSY Miscellaneous Information 0 each 05/22/24 00:01 Central Line Flush Orders Will Need Renewed XX 06/21/24 00:00 CLARIFY ROSY Ondansetron HCl 4 mg 05/13/24 11:22 05/21/24 05:44 Ondansetron Inj 4 Mg/2 Ml Vial IV PUSH 4 mg Q6H PRN Administration Nausea And Vomiting Pantoprazole Sodium 40 mg 05/23/24 09:00 Pantoprazole 40 Mg Tablet PO QAM [facility] Perflutren Lipid Microsphere 0 ml 05/20/24 11:44 Perflutren Lipid Microspheres 1.5 Ml Vial Diluted To 10 Ml Total Volume IV PUSH 05/23/24 11:44 ONCE PRN adequate visualization Protocol Perflutren Lipid Microsphere 0 ml 05/20/24 12:16 Perflutren Lipid Microspheres 1.5 Ml Vial Diluted To 10 Ml Total Volume IV PUSH 05/23/24 12:16 ONCE PRN adequate visualization Protocol Sodium Bicarbonate 650 mg 05/21/24 17:00 05/22/24 16:24 Sodium Bicarbonate Tab 650 Mg Tablet PO 05/24/24 09:01 650 mg BID ROSY Administration Sodium Chloride 10 ml 04/23/24 14:00 05/22/24 14:21 Central Line Flush IV PUSH 10 ml Q8HR ROSY Administration Sodium Chloride 20 ml 04/23/24 10:16 05/21/24 05:22 Central Line Flush IV PUSH 20 ml PRN PRN Administration after blood draws Sodium Chloride 10 ml 05/04/24 14:15 Central Line Flush IV PUSH PRN PRN with TPN bag changes Sodium Chloride 20 ml 05/04/24 14:15 05/18/24 06:18 Central Line Flush IV PUSH 20 ml PRN PRN Administration after blood draws Radiology Results: ITS Impressions Chest/Abdomen/Pelvis CTA 04/22/24 18:10 IMPRESSION: Perforated viscus with a large amount of free air and fluid, with mural thickening in the distal stomach and multiple punctate foci of extraluminal air in this area for which site of perforation is suspected. Renal Ultrasound 04/24/24 11:58 IMPRESSION: Simple cyst in the left kidney upper pole. Other appearances are unremarkable. Lower Extremity CTA 05/02/24 16:36 IMPRESSION: 1. Scattered atherosclerotic plaque in the arteries of the left lower limb as detailed above without a discrete hemodynamic significant stenosis. Runoff below the ankle in the left posterior tibial artery this supplies the foot. Atretic distal peroneal and anterior tibial arteries with intraluminal contrast becoming indiscernible at the level of the ankle and with no appreciable contrast in the dorsalis pedis artery. Upper GI Series 05/09/24 09:31 IMPRESSION: 1. Ulcer of the gastric antrum with contained extraluminal contrast similar to 04/28/2024. The extraluminal contrast distribution is worse than typically seen after Clarence patch repair. Abdomen CT 05/09/24 15:27 IMPRESSION: Redemonstration of a tract extending from the posterior superior margin of the antrum of the stomach only partially filled with oral contrast, perhaps demonstrating early healing. Abdomen/Pelvis CT 05/17/24 09:03 Impression: Persistent wall thickening of the gastric antrum/duodenum with surrounding haziness, compatible postoperative change. There is persistent irregular tract with small amount of fluid and external air extending from the gastric antrum superiorly/anteriorly, which could reflect abscess or persistent contained perforation. No extraluminal contrast seen, and no oral contrast seen within this collection. Intramuscular hematoma of the right iliopsoas and psoas major muscles, with additional irregular hematoma extending to the posterior right retroperitoneum. Bilateral fat-containing inguinal hernias. Small bilateral pleural effusions. Chest X-Ray 05/17/24 14:51 IMPRESSION: Left basilar atelectasis versus pneumonia. Clinical correlation advised. Labs Labs: Laboratory Tests 05/22/24 05:42 05/22/24 05:42 Calcium 8.0 L Total Bilirubin 0.7 AST 29 ALT 21 Alkaline Phosphatase 136 H Total Protein 6.0 L Albumin 2.4 L Microbiology 05/20/24 12:47 Blood Blood Culture - Preliminary Gram positive cocci cluster is 05/20/24 10:37 Blood Blood Culture - Preliminary Gram positive cocci cluster is 05/18/24 09:28 Blood Blood Culture - Preliminary Methicillin Resis Staph Aureus
--- NOTE | 2024-05-22 13:49 | P.PNGS_ITS ---
Progress Note: A&P Assessment and Plan (1) Perforated gastric ulcer: Onset Date: 04/2024 Qualifiers: Gastric ulcer chronicity: acute Qualified Code(s): K25.1 - Acute gastric ulcer with perforation Code(s): K25.5 - Chronic or unspecified gastric ulcer with perforation Status: Acute Assessment and Plan: Repaired with omental patch 04/22/2024. (2) Malnutrition following gastrointestinal surgery: Code(s): K91.2 - Postsurgical malabsorption, not elsewhere classified Status: Acute Assessment and Plan: Discussed with patient's daughter. Seems to take p.o. better every other day. Yesterday he had 890 cc p.o. and 240 cc of tube feeding for a total of 1130 cc orally. Continue Nepro per G-tube and oral feedings as well as he can do. (3) Acute kidney injury superimposed on stage 3b chronic kidney disease: Code(s): N17.9 - Acute kidney failure, unspecified; N18.32 - Chronic kidney disease, stage 3b Status: Acute Assessment and Plan: Creatinine clearance 49. Patient remains extremely edematous. Lasix has been started. No significant change in kidney function with Lasix and diuresis yesterday (4) MRSA (methicillin resistant staph aureus) culture positive: Code(s): Z22.322 - Carrier or suspected carrier of Methicillin resistant Staphylococcus aureus Status: Acute Assessment and Plan: Cultures were drawn on 05/20/2024. Source of MRSA is unclear. Await report on CT scan chest abdomen pelvis. Patient had his PICC line placed on 05/04. If nothing turns up on CT scan, recommend removing PICC line tomorrow and replacing with a new PICC line, preferably other arm. Continue on broad-spectrum antibiotics, can hopefully discontinue all but vancomycin in the next couple of days. Nasal swab on 05/18/2024 also positive PCR for MRSA. Will check to see if he received mupirocin. Subjective Subjective Date/Time Seen: 05/22/24 13:49 Patient reports: tolerating liquids well (Ate better yesterday with soft diet), bowel movement, afebrile and other (Patient is sleeping deeply, spoke with his daughter. She describes him to be comfortable with no new complaints.) Exam Const: General: comfortable and tired appearing (Somnolent) Nutritional Ap pearance: overweight and edematous Orientation/consciousness: patient obtunded GI: Inspection: Abdominal wall edema, incision (Healing well), obesity, no visible herniation and other (Remaining ELSA drain removed earlier today.) GI Palp: Yes Soft to palpation Auscultation: normal bowel sounds Urinary Catheter: Urinary Catheter: other (Has external catheter) Extrem: General: edema Right upper extremity: edema Left upper extremity: edema Right lower extremity: edema Left lower extremity: edema Objective Data Vital Signs Vital Signs: Vital Signs - 24 hr 05/21/24 14:28 05/21/24 20:00 05/21/24 20:34 Temperature 36.4 C 37.1 C Pulse Rate 88 91 91 Respiratory Rate 16 16 16 Blood Pressure 151/71 H 153/71 H Pulse Oximetry 96 97 97 Oxygen Delivery Room Air Fraction of Inspired Oxygen 21 05/22/24 06:52 05/22/24 09:05 05/22/24 09:25 Temperature 36.7 C 36.1 C L Pulse Rate 94 93 93 Respiratory Rate 16 18 18 Blood Pressure 180/86 H 176/77 H Pulse Oximetry 95 100 100 Oxygen Delivery Room Air Fraction of Inspired Oxygen 21 Intake/Output Intake/Output: Intake & Output 05/19/24 05/20/24 05/21/24 05/22/24 23:59 23:59 23:59 23:59 Intake Total 4691.3 2645 4230 1080 Output Total 700 1020 2150 950 Balance 3991.3 1625 2080 130 Diuresed yesterday with Lasix being given Meds/Results Medications: Active Medications Generic Name Dose Route Start Last Admin Trade Name Freq PRN Reason Stop Dose Admin Acetaminophen 650 mg 04/26/24 22:19 04/26/24 22:57 Acetaminophen 650 Mg Suppository RECTAL 650 mg Q6H PRN Administration Mild Pain (1-3) or Fever Acetaminophen 650 mg 05/05/24 10:27 05/20/24 05:31 Acetaminophen Elixir 325 Mg/10.15 Ml Udc PO 650 mg Q6H PRN Administration Mild Pain (1-3) or Fever Artificial Tears 1 drop 04/27/24 08:37 Artificial Tears Ophth Soln 15 Ml Bottle EACH EYE QID PRN Dry Eye(s) Atorvastatin Calcium 20 mg 04/30/24 09:00 Atorvastatin 20 Mg Tablet BY MOUTH DAILY ROSY Benzocaine 1 lozenge 05/15/24 15:35 05/21/24 12:14 Benzocaine/Menthol (*Bkc) 18 Ea Lozenge PO 1 lozenge PRN PRN Administration Sore Throat Calcium Carbonate 500 mg 05/19/24 08:00 05/22/24 09:04 Calcium/Vitamin D 500 Mg/5 Mcg (200 I.U.) Tablet PO 500 mg DAILY@0800 ROSY Administration Clonidine HCl 1 patch 05/01/24 09:00 05/22/24 09:26 Clonidine 0.1 Mg/24 Hr Patch TRANSDERM 1 patch WEEKLY ROSY Administration Dextrose 12.5 gm 04/22/24 23:06 Dextrose 50% 25 Gm/50 Ml Syringe IV PUSH PRN PRN Hypoglycemia Protocol Dronabinol 2.5 mg 05/17/24 16:30 05/21/24 15:49 Dronabinol (*Crx) 2.5 Mg Capsule PO 2.5 mg DAILY@1630 ROSY Administration Enoxaparin Sodium 120 mg 05/09/24 06:00 05/17/24 05:05 Enoxaparin 120 Mg/0.8 Ml Syringe SUB-Q 120 mg Q24H ROSY Administration Epoetin Olu-epbx 10,000 units 05/14/24 11:05 05/21/24 09:11 Epoetin Olu-Epbx 10,000 Units/Ml Vial SUB-Q 10,000 units TUTHSA@09 ROSY Administration Furosemide 40 mg 05/21/24 10:35 05/22/24 09:04 Furosemide 40 Mg Tablet PO 40 mg QAM ROSY Administration Glucagon 1 mg 04/22/24 23:06 Glucagon For Inj 1 Mg Vial IM PRN PRN Hypoglycemia Protocol Glucose 15 gm 04/22/24 23:06 Glucose Oral Gel 15 Gm Of Glucse In 37.5 Gm Tube PO PRN PRN Hypoglycemia Protocol Guaifenesin/Dextromethorphan 10 ml 05/15/24 10:07 05/22/24 01:23 Guaifenesin/Dextromethorphan 10 Ml Udc PO 10 ml Q4H PRN Administration Cough Hydralazine HCl 10 mg 04/25/24 08:00 05/21/24 05:44 Hydralazine Hcl 20 Mg/Ml Vial IV PUSH 10 mg Q4H PRN Administration Blood Pressure - High Dextrose 1,000 mls @ 100 mls/hr 04/22/24 23:06 Dextrose 5% 1,000 Ml IVPB PRN PRN Hypoglycemia Protocol Cefepime HCl 2 gm in 50 mls @ 100 mls/hr 05/18/24 09:00 05/22/24 09:29 Maxipime 2 Gm/Ns 50 Ml IVPB Infused Q12HR ROSY Infusion Metronidazole 500 mg in 100 mls @ 100 mls/hr 05/18/24 09:00 05/22/24 10:28 Flagyl 500 Mg/Iso Soln 100 Ml IVPB Infused Q8H ROSY Infusion Micafungin Sodium 100 mg/ 100 mls @ 100 mls/hr 05/18/24 09:00 05/22/24 11:50 Sodium Chloride IVPB Infused DAILY ROSY Infusion Vancomycin HCl 1,750 mg in 500 mls @ 250 mls/hr 05/20/24 22:00 05/21/24 21:33 Vancomycin 1,750 Mg/Ns 500 Ml IVPB 250 mls/hr Q24H ROSY Administration Ipratropium [place] 0.5 mg 05/04/24 09:32 05/17/24 10:11 Ipratropium Br 0.02% Inh Soln 0.5 Mg/2.5 Ml Vial INHALATION 0.5 mg Q6HRT PRN Administration Shortness Of Breath Levalbuterol HCl 0.63 mg 05/04/24 09:32 05/17/24 10:11 Levalbuterol Neb 1.25 Mg/3 Ml INHALATION 0.63 mg Q6HRT PRN Administration Shortness Of Breath Lidocaine 1 patch 05/18/24 09:00 05/22/24 09:05 Lidocaine 5% Patch TRANSDERM 1 patch DAILY ROSY Administration Lisinopril 40 mg 05/20/24 15:05 05/22/24 09:04 Lisinopril 20 Mg Tablet BY MOUTH 40 mg DAILY ROSY Administration Lorazepam 0.5 mg 05/16/24 13:48 05/22/24 09:54 Lorazepam (*Crx) 0.5 Mg Tablet PO 0.5 mg Q6H PRN Administration Anxiety Miscellaneous Information 0 each 05/20/24 00:01 Please Renew Morphine- 10 Day Stop For Narcotic XX 06/19/24 00:00 CLARIFY ROSY Miscellaneous Information 1 each 05/22/24 00:01 Order Clarification XX 06/21/24 00:00 CLARIFY ROSY Ondansetron HCl 4 mg 05/13/24 11:22 05/21/24 05:44 Ondansetron Inj 4 Mg/2 Ml Vial IV PUSH 4 mg Q6H PRN Administration Nausea And Vomiting Pantoprazole Sodium 40 mg 05/23/24 09:00 Pantoprazole 40 Mg Tablet PO QAM ROSY Perflutren Lipid Microsphere 0 ml 05/20/24 11:44 Perflutren Lipid Microspheres 1.5 Ml Vial Diluted To 10 Ml Total Volume IV PUSH 05/23/24 11:44 ONCE PRN adequate visualization Protocol Perflutren Lipid Microsphere 0 ml 05/20/24 12:16 Perflutren Lipid Microspheres 1.5 Ml Vial Diluted To 10 Ml Total Volume IV PUSH 05/23/24 12:16 ONCE PRN adequate visualization Protocol Sodium Bicarbonate 650 mg 05/21/24 17:00 05/22/24 09:05 Sodium Bicarbonate Tab 650 Mg Tablet PO 05/24/24 09:01 650 mg BID ROSY Administration Sodium Chloride 10 ml 04/23/24 14:00 05/22/24 05:32 Central Line Flush IV PUSH 10 ml Q8HR ROSY Administration Sodium Chloride 20 ml 04/23/24 10:16 05/21/24 05:22 Central Line Flush IV PUSH 20 ml PRN PRN Administration after blood draws Sodium Chloride 10 ml 05/04/24 14:15 Central Line Flush IV PUSH PRN PRN with TPN bag changes Sodium Chloride 20 ml 05/04/24 14:15 05/18/24 06:18 Central Line Flush IV PUSH 20 ml PRN PRN Administration after blood draws Radiology Results: ITS Impressions Chest/Abdomen/Pelvis CTA 04/22/24 18:10 IMPRESSION: Perforated viscus with a large amount of free air and fluid, with mural thickening in the distal stomach and multiple punctate foci of extraluminal air in this area for which site of perforation is suspected. Renal Ultrasound 04/24/24 11:58 IMPRESSION: Simple cyst in the left kidney upper pole. Other appearances are unremarkable. Lower Extremity CTA 05/02/24 16:36 IMPRESSION: 1. Scattered atherosclerotic plaque in the arteries of the left lower limb as detailed above without a discrete hemodynamic significant stenosis. Runoff below the ankle in the left posterior tibial artery this supplies the foot. Atretic distal peroneal and anterior tibial arteries with intraluminal contrast becoming indiscernible at the level of the ankle and with no appreciable contrast in the dorsalis pedis artery. Upper GI Series 05/09/24 09:31 IMPRESSION: 1. Ulcer of the gastric antrum with contained extraluminal contrast similar to 04/28/2024. The extraluminal contrast distribution is worse than typically seen after [place] patch repair. Abdomen CT 05/09/24 15:27 IMPRESSION: Redemonstration of a tract extending from the posterior superior margin of the antrum of the stomach only partially filled with oral contrast, perhaps demonstrating early healing. Abdomen/Pelvis CT 05/17/24 09:03 Impression: Persistent wall thickening of the gastric antrum/duodenum with surrounding haziness, compatible postoperative change. There is persistent irregular tract with small amount of fluid and external air extending from the gastric antrum superiorly/anteriorly, which could reflect abscess or persistent contained perforation. No extraluminal contrast seen, and no oral contrast seen within this collection. Intramuscular hematoma of the right iliopsoas and psoas major muscles, with additional irregular hematoma extending to the posterior right retroperitoneum. Bilateral fat-containing inguinal hernias. Small bilateral pleural effusions. Chest X-Ray 05/17/24 14:51 IMPRESSION: Left basilar atelectasis versus pneumonia. Clinical correlation advised. Labs Labs: Laboratory Results - last 24 hr 05/22/24 05:42 WBC 20.3 H RBC 2.96 L Hgb 8.8 L Hct 28.1 L MCV 94.9 MCH 29.7 MCHC 31.3 L RDW 16.7 H Plt Count 189 MPV 12.6 H Immature Gran % (Auto) 5.3 H Neut % (Auto) 79.7 H Lymph % (Auto) 6.1 L [place] % (Auto) 6.8 Eos % (Auto) 1.5 Baso % (Auto) 0.6 Lymph # (Auto) 1.24 [place] # (Auto) 1.4 H Eos # (Auto) 0.3 Baso # (Auto) 0.1 Abs Immat Gran (auto) 1.07 H Absolute Neuts (auto) 16.2 H Absolute Nucleated RBC 0.000 Band Neutrophils % Not Reportable Nucleated RBC % 0.0 Platelet Estimate Adequate Large Platelets Present Schistocytes None seen Sodium 136 L Potassium 4.0 Chloride 109 H Carbon Dioxide 20 L Anion Gap 7 BUN 49 H Creatinine 1.73 H Estim Creat Clear Calc 49 Estimated GFR 39 L Glucose 113 H Calcium 8.0 L Total Bilirubin 0.7 AST 29 ALT 21 Alkaline Phosphatase 136 H Total Protein 6.0 L Albumin 2.4 L white blood cells count still elevated but slightly less than the 3 previous days. Imaging Attestation: I personally reviewed and interpreted this imaging study as follows: (CT scan chest abdomen pelvis) My impression: Retained barium in distal colon, barium rectal impaction, distended bladder, G- tube in good position, no abscess or free intraperitoneal air noted. Radiologist's impression: Not read as yet
[2024-05-22 14:00] VITALS: BP 167/81; PULSE 84; RESP 17; TEMP 36.2; O2SAT 99
[2024-05-22] MEDS: ALBUMIN HUMAN 25% 12.5 GM/50ML 50 ML IVPB (16:01)
[2024-05-22] MEDS: BUMETANIDE INJ 1 MG/4 ML VIAL 1.5 MG IV PUSH (16:25)
[2024-05-22] MEDS: hydrALAZINE HCL 20 MG/ML VIAL 10 MG IV PUSH (20:36)
[2024-05-22] MEDS: CENTRAL LINE FLUSH 20 ML IV PUSH (21:18)
[2024-05-22 21:56] LABS: Vancomycin Trough 19.7 ug/mL (10.0-20.0)
[2024-05-22] MEDS: ALTEPLASE 2 MG VIAL (CATHFLO) IV PUSH (21:57)
[2024-05-22 22:00] VITALS: BP 177/66; PULSE 86; RESP 20; TEMP 36.5; O2SAT 97
[2024-05-22] MEDS: VANCOMYCIN 1,250 MG/NS 250 ML 1,250 MG/250 ML BAG 166.67 MG IVPB (22:20)
[2024-05-23] MEDS: metroNIDAZOLE 500 MG/ISO 100ML 500 MG/100 ML BAG 100 MG IVPB ×3 (00:07→17:43)
[2024-05-23] MEDS: CENTRAL LINE FLUSH 20 ML IV PUSH (04:33)
[2024-05-23 04:43] LABS: Basophils Absolute Auto 0.1 K/mm3 (0.0-0.1); Basophils Percent Auto 0.5 % (0.2-1.2); Eosinophils Absolute Auto 0.3 K/mm3 (0-0.3); Eosinophils Percent Auto 1.9 % (0-4.4); Hematocrit 28.3 % (42.0-52.0); Hemoglobin 8.7 g/dL (14.0-18.0); Immature Granulocyte Absolute 1.13 K/mm3 (0.00-0.031); Immature Granulocyte Percent A 6.6 % (0-0.5); Lymphocytes Absolute Auto 1.33 K/mm3 (0.9-3.2); Lymphocytes Percent Auto 7.7 % (18.3-44.2); Mean Corpuscular HGB Conc 30.7 g/dl (32-36); Mean Corpuscular Hemoglobin 29.8 pg (26-34); Mean Corpuscular Volume 96.9 fl (80-100); Monocytes Absolute Auto 1.3 K/mm3 (0.1-0.6); Monocytes Percent Auto 7.3 % (2.6-8.5); Neutrophils Absolute Auto 13.1 K/mm3 (1.3-6.7); Nucleated Red Blood Cells Perc 0.1 % (0.0-0.2); Platelet Count Result 204 k/mm3 (150-375); Red Blood Count 2.92 M/mm3 (4.6-6.20); Red Cell Distribution Width 16.5 % (11.5-14.5); White Blood Count 17.2 K/mm3 (4.5-10.0)
[2024-05-23 04:55] LABS: Alanine Aminotransferase 18 U/L (6-50); Albumin Level 2.3 g/dL (3.5-5.1); Alkaline Phosphatase 118 U/L (38-126); Anion Gap 6 mmol/L (4-12); Aspartate Amino Transferase 28 U/L (17-59); Bilirubin,Total 0.6 mg/dL (0.2-1.3); Blood Urea Nitrogen 47 mg/dL (9-20); Calcium 8.1 mg/dL (8.4-10.2); Carbon Dioxide 23 mmol/L (22-30); Chloride 108 mmol/L (98-107); Estimated CRCL calculation 54 ml/min; Estimated Glomerular Filt Rate 43; Glucose 115 mg/dL (65-110); Potassium 3.7 mmol/L (3.4-5.0); Sodium 137 mmol/L (137-145)
[2024-05-23 04:59] VITALS: BP 175/81; PULSE 86; RESP 20; TEMP 36.3; O2SAT 97
[2024-05-23] MEDS: hydrALAZINE HCL 20 MG/ML VIAL 10 MG IV PUSH ×3 (05:07→20:32)
[2024-05-23] MEDS: CENTRAL LINE FLUSH 10 ML IV PUSH (05:08)
[2024-05-23 05:11] LABS: Platelet Estimate Adequate (Adequate)
[2024-05-23 05:13] LABS: Anisocytosis 1+; Hypochromasia 1+; Platelet Clumps Present; Schistocytes None Seen
--- NOTE | 2024-05-23 06:56 | P.PNIM_ITS ---
Progress Note: A&P Assessment and Plan (1) Sepsis: Code(s): A41.9 - Sepsis, unspecified organism Status: Resolved Assessment and Plan: Meets SIRS criteria: Tachycardia, Febrile, Leukocytosis - lactic acid: 0.7 - suspected source: MRSA - blood cultures drawn on 05/18, MRSA + - UA: Cloudy, 1+ protein, otherwise unremarkable - Urine culture negative - Continue IV Vancomycin, consult pharmacy to dose, Cefepime 2 gram IV q12H, Micafungin and Flagyl 05/22 - Repeat Blood cultures on 05/20 initially showed no growth, but then showed continued growth of gram+ cocci - Will continue to monitor WBC and culture growth - Plan to repeat blood cultures to monitor Abx response 05/23 - Blood cultures drawn on 05/22 shows no initial growth at this time - Will continue to monitor WBC and culture growth (2) MRSA (methicillin resistant staph aureus) culture positive: Code(s): Z22.322 - Carrier or suspected carrier of Methicillin resistant Staphylococcus aureus Status: Acute Assessment and Plan: - See plan above - Nasal MRSA positive, BC MRSA positive - Started on IV Vanc for sepsis, continue - Initiated Mupirocin ointment - Continue IV Abx, narrow coverage when necessary - Trend WBC - 20.3 - Repeat Blood cultures on 05/20 initially showed no growth, but then showed continued growth of gram+ cocci - See above (3) Bacteremia: Code(s): R78.81 - Bacteremia Status: Acute Assessment and Plan: * See plan above * Resulted positive for MRSA * Continue IV antibiotic regimen * Monitor blood cultures over next few days * BC on 05/18 + for MRSA, BC on 05/20 prelim + for Gram(+) cocci * See above (4) Perforated abdominal viscus: Code(s): R19.8 - Other specified symptoms and signs involving the digestive system and abdomen Status: Acute Assessment and Plan: * Septic shock in setting of peritonitis with perforated gastric ulcer: * Shock has resolved * Status post exploratory laparotomy with repair of antral gastric ulcer with omental Clarence patch, open gastrostomy tube * CT of the abdomen 05/09: Redemonstration of a tract extending from the poste rior superior margin of the antrum of the stomach only partially filled with oral contrast, perhaps demonstrating early healing. * Surgery is following, * Diet advanced to soft diet 05/22 * Wound healing well * Remaining ELSA drain removed * CT Chest/Abd/pelvis: Nodular opacities in the right upper lobe and right middle lobe, likely representing small infectious/inflammatory foci. Peritoneal gas anterior to the stomach secondary to antral perforation, with possible small adjacent abscess or fistulous tract. * Gen Surg made aware of persistent finding on CT abd/pelvis, will discuss with radiology tomorrow 05/23 * Discussed with Gen surgery, abscess likely a persistent finding that is not big enough for drainage via IR * Continue Nepro per G-tube for now while awaiting speech eval. (5) Pneumonia: Code(s): J18.9 - Pneumonia, unspecified organism Status: Acute Assessment and Plan: Improving * Encourage IS use * Cornet therapy * nebs PRN * 05/13 finished antibiotics * Currently on room air 05/22 * Nodular opacities in the right upper lobe and right middle lobe, likely representing small infectious/inflammatory foci. * Afebrile * Currently on Cefepime, Flagyl, and Vanc * Continue Abx * WBC downtrending 05/23 * Aspiration vs HAP * Continue Abx and monitor culture growth * Physical exam remains clear (6) Malnutrition following gastrointestinal surgery: Code(s): K91.2 - Postsurgical malabsorption, not elsewhere classified Status: Acute Assessment and Plan: * Passed swallow study. * Patient advanced to soft diet per General surgery recommendation * Continue to encourage po intake * Bolus tube feeding via G tube * add reglan and Marinol 05/22 * Repeat Swallow study to assess for aspiration * NPO until swallow study 05/23 * Still pending Swallow study at this time (7) Dysphagia: Code(s): R13.10 - Dysphagia, unspecified Status: Acute Assessment and Plan: * See plan above * NPO * Repeat swallow study ordered * continue tube feeding (8) Right wrist pain: Code(s): M25.531 - Pain in right wrist Status: Acute Assessment and Plan: * Patient started c/o of right wrist pain on 05/23 * Likely related to repeated blood culture attempts * XR hand RT 2V: No acute fracture. 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 Multiple subarticular lucencies at the wrist and carpus * Physical exam benign (9) Acute kidney injury superimposed on stage 3b chronic kidney disease: Code(s): N17.9 - Acute kidney failure, unspecified; N18.32 - Chronic kidney disease, stage 3b Status: Acute Assessment and Plan: * baseline creatinine most likely around 1.5 * Nephrology following * Renal ultrasound was unremarkable for any acute issues. * Restarted Lasix, holding IVF * Cr 4.03 -> 3.2 -> 2.16 -> 1.61 -> 1.73 -> 1.56 * Continue trending (10) Hematoma: Code(s): T14.8XXA - Other injury of unspecified body region, initial encounter Status: Acute Assessment and Plan: * CT abdomen pelvis on 05/17/2024 shows: Intramuscular hematoma of the right iliopsoas and psoas major muscles, with additional irregular hematoma extending to the posterior right retroperitoneum. * Spoke with surgery likely noninfective * Lidocaine patch * Lovenox on hold, no recent found for therapeutic Lovenox, when patient was placed back on Lovenox likely benefit from the 40 mg (11) Pleural effusion: Code(s): J90 - Pleural effusion, not elsewhere classified Status: Acute Assessment and Plan: * Seen on CT * Chest x-ray dated compare * Likely due to 3rd spacing * Stable (12) Anemia: Code(s): D64.9 - Anemia, unspecified Status: Acute Assessment and Plan: Iron deficiency anemia on acute loss Stable * Trend CBC. * transfuse if hgb <7.0, or symptomatic * Iron replacement (13) HTN (hypertension): Code(s): I10 - Essential (primary) hypertension Status: Acute Assessment and Plan: Controlled * Continue Clonidine patch and Hydralazine PRN. * Trend BP L (14) Generalized weakness: Code(s): R53.1 - Weakness Status: Acute Assessment and Plan: * PT/OT-maxi move use for transfer * Patient will likely need placement * No changes to current plan (15) Hypokalemia: Code(s): E87.6 - Hypokalemia Status: Acute Assessment and Plan: Improved * Trend labs * Replace as indicated (16) Hypernatremia: Code(s): E87.0 - Hyperosmolality and hypernatremia Status: Acute Assessment and Plan: Resolved Daily BMP Time Spent With Patient Time: Subjective Date/time seen: 05/23/24 06:56 Interval history: Follow-up for acute kidney injury/acute renal failure on chronic kidney disease. 05/23/2024 Patient sitting in bed at time of examination, comfortable but tired appearing. At this time he denies any chest pain, shortness of breath, n/v or abdominal pain. He continues to look fluid overloaded upon clinical examination but this seems to be improving.. Diuretics restarted, will continue to monitor kidney function but this also appears to be improving. Lungs appear clear on exam. Continuing IV Albumin + IV Bumex. Speech therapy consulted for difficulty rashaad vigil, will plan on Swallow Study. He started complaining of right wrist pain this morning, likely attributed to repeated blood culture attempts in that hand but XR was obtained. WBC still down trending. Will continue broad spectrum Abx with hope to wean down in the next few days. Review of Systems Review of Systems: 12 systems were reviewed and are negativ e except for as per HPI. All systems reviewed & are unremarkable except as noted in HPI and below Exam Narrative: General: Ill appearing, appears stated age. HEENT: normocephalic, atraumatic. Mucous membranes moist. EOMI, PERRLA, bilateral sclera anicteric, no conjunctival injection. Respiratory: clear to ascultation bilaterally. No rales/rhonic/wheezes. Cardiovascular: Regular rate and rhythm, normal S1-S2 upon ascultation. No murmurs, rubs, or clicks. Capillary refill less than 3 second. Abdomen: Soft, round, no pulsatile masses, nondistended and nontender. No rebound, no guarding. Bowel sounds present to all four quadrants. No high pitch or tinkling sounds. Extremities: 2 + edema to both LE. No cyanosis, clubbing present. Pulses are palpable 2/2. Active ROM to all four extremities. Neuro: Alert and orientated x 4. PERRLA. Cranial nerves 2-12 intact without focal deficit. Skin: Warm, dry, and intact, without rash, erythema, or lesion. Psych: pleasant, cooperative, normal speech, normal affect, no hallucinations, no dysarthia Skin: G-tube site clean with G-tube in place and clamped. Gauze dressing in place in the right upper quadrant and left upper quadrant from previous ELSA drains, gauze dressing dry and intact. Const: General: comfortable, no acute distress and uncomfortable Other: Acutely ill-appearing, obese HENMT: Other: Mucous membranes are dry, head is normocephalic atraumatic, few missing teeth, bridge in the lower jaw Eyes: Other: Pupils are equal and reactive, no scleral icterus Neck: Other: No JVD, trachea midline Resp: Effort & Inspection: normal respiratory effort Auscultation: clear to auscultation bilaterally and diminished lung sounds Other: Cardio: Rate: regular rate Rhythm: regular rhythm GI: Auscultation: normal bowel sounds Other: Gastrostomy tube in place with dry gauze dressing and skin around the G-tube without erythema or drainage. Incision dry with steri strips intact, no erythema. Slightly distended. Skin: Other: Generally cold to touch, 2nd cap refill, fingers and toes are cyanotic Neuro: Speech: normal speech Other: Pupils are reactive, equal Extrem: General: pedal edema bilaterally 2+ Other: 2+PP bilateral feet are warm. Psych: Mental Status: mental status grossly normal Affect: normal affect Objective Data Vital Signs Vital Signs: Vital Signs - 24 hr 05/22/24 09:05 05/22/24 09:25 05/22/24 14:00 Temperature 96.9 F L 97.2 F L Pulse Rate 93 93 84 Respiratory Rate 18 18 17 Blood Pressure 176/77 H 167/81 H Pulse Oximetry 100 100 99 Oxygen Delivery Room Air Fraction of Inspired Oxygen 21 05/22/24 22:00 05/22/24 22:00 05/23/24 04:59 Temperature 97.7 F 97.4 F L Pulse Rate 86 86 Respiratory Rate 20 20 Blood Pressure 177/66 H 175/81 H Pulse Oximetry 97 97 Oxygen Delivery Room Air Fraction of Inspired Oxygen Intake/Output Intake/Output: Intake & Output 05/20/24 05/21/24 05/22/24 05/23/24 23:59 23:59 23:59 23:59 Intake Total 2645 4230 2210 100 Output Total 1020 2150 4000 1100 Balance 1625 2080 -1790 -1000 Meds/Results Medications: Active Medications Generic Name Dose Route Start Last Admin Trade Name Freq PRN Reason Stop Dose Admin Acetaminophen 650 mg 04/26/24 22:19 04/26/24 22:57 Acetaminophen 650 Mg Suppository RECTAL 650 mg Q6H PRN Administration Mild Pain (1-3) or Fever Acetaminophen 650 mg 05/05/24 10:27 05/20/24 05:31 Acetaminophen Elixir 325 Mg/10.15 Ml Udc PO 650 mg Q6H PRN Administration Mild Pain (1-3) or Fever Alteplase, Recombinant 2 mg 05/22/24 21:26 05/22/24 21:57 Alteplase 2 Mg Vial (Cathflo) IV PUSH 2 mg ONCE PRN Administration Line Occlusion Artificial Tears 1 drop 04/27/24 08:37 Artificial Tears Ophth Soln 15 Ml Bottle EACH EYE QID PRN Dry Eye(s) Atorvastatin Calcium 20 mg 04/30/24 09:00 Atorvastatin 20 Mg Tablet BY MOUTH DAILY ROSY Benzocaine 1 lozenge 05/15/24 15:35 05/21/24 12:14 Benzocaine/Menthol (*Bkc) 18 Ea Lozenge PO 1 lozenge PRN PRN Administration Sore Throat Bumetanide 1.5 mg 05/22/24 17:00 05/22/24 16:25 Bumetanide Inj 1 Mg/4 Ml Vial IV PUSH 05/24/24 09:01 1.5 mg BID ROSY Administration Calcium Carbonate 500 mg 05/19/24 08:00 05/22/24 09:04 Calcium/Vitamin D 500 Mg/5 Mcg (200 I.U.) Tablet PO 500 mg DAILY@0800 [facility] Administration Clonidine HCl 1 patch 05/01/24 09:00 05/22/24 09:26 Clonidine 0.1 Mg/24 Hr Patch TRANSDERM 1 patch WEEKLY [facility] Administration Dronabinol 2.5 mg 05/17/24 16:30 05/22/24 15:58 Dronabinol (*Crx) 2.5 Mg Capsule PO Not Given DAILY@1630 [facility] Enoxaparin Sodium 120 mg 05/09/24 06:00 05/17/24 05:05 Enoxaparin 120 Mg/0.8 Ml Syringe SUB-Q 120 mg Q24H [facility] Administration Epoetin Olu-epbx 10,000 units 05/14/24 11:05 05/21/24 09:11 Epoetin Olu-Epbx 10,000 Units/Ml Vial SUB-Q 10,000 units TUTHSA@09 [facility] Administration Guaifenesin/Dextromethorphan 10 ml 05/15/24 10:07 05/22/24 01:23 Guaifenesin/Dextromethorphan 10 Ml Udc PO 10 ml Q4H PRN Administration Cough Hydralazine HCl 10 mg 04/25/24 08:00 05/23/24 05:07 Hydralazine Hcl 20 Mg/Ml Vial IV PUSH 10 mg Q4H PRN Administration Blood Pressure - High Cefepime HCl 2 gm in 50 mls @ 100 mls/hr 05/18/24 09:00 05/22/24 20:58 Maxipime 2 Gm/Ns 50 Ml IVPB Infused Q12HR ROSY Infusion Metronidazole 500 mg in 100 mls @ 100 mls/hr 05/18/24 09:00 05/23/24 01:07 Flagyl 500 Mg/Iso Soln 100 Ml IVPB Infused Q8H [facility] Infusion Micafungin Sodium 100 mg/ 100 mls @ 100 mls/hr 05/18/24 09:00 05/22/24 11:50 Sodium Chloride IVPB Infused DAILY ROSY Infusion Albumin Human 50 mls @ 50 mls/hr 05/22/24 17:00 05/22/24 17:01 Albutein IVPB 05/24/24 09:59 Infused BID ROSY Infusion Vancomycin HCl 1,250 mg in 250 mls @ 166.667 mls/hr 05/22/24 23:00 05/22/24 23:50 Vancomycin 1,250 Mg/Ns 250 Ml IVPB Infused Q24H ROSY Infusion Ipratropium [place] 0.5 mg 05/04/24 09:32 05/17/24 10:11 Ipratropium Br 0.02% Inh Soln 0.5 Mg/2.5 Ml Vial INHALATION 0.5 mg Q6HRT PRN Administration Shortness Of Breath Levalbuterol HCl 0.63 mg 05/04/24 09:32 05/17/24 10:11 Levalbuterol Neb 1.25 Mg/3 Ml INHALATION 0.63 mg Q6HRT PRN Administration Shortness Of Breath Lidocaine 1 patch 05/18/24 09:00 05/22/24 09:05 Lidocaine 5% Patch TRANSDERM 1 patch DAILY ROSY Administration Lisinopril 40 mg 05/20/24 15:05 05/22/24 09:04 Lisinopril 20 Mg Tablet BY MOUTH 40 mg DAILY ROSY Administration Lorazepam 0.5 mg 05/16/24 13:48 05/22/24 09:54 Lorazepam (*Crx) 0.5 Mg Tablet PO 0.5 mg Q6H PRN Administration Anxiety Miscellaneous Information 0 each 05/20/24 00:01 Please Renew Morphine- 10 Day Stop For Narcotic XX 06/19/24 00:00 CLARIFY ROSY Miscellaneous Information 1 each 05/22/24 00:01 Order Clarification XX 06/21/24 00:00 CLARIFY ROSY Miscellaneous Information 0 each 05/22/24 00:01 Central Line Flush Orders Will Need Renewed XX 06/21/24 00:00 CLARIFY [facility] Ondansetron HCl 4 mg 05/13/24 11:22 05/21/24 05:44 Ondansetron Inj 4 Mg/2 Ml Vial IV PUSH 4 mg Q6H PRN Administration Nausea And Vomiting Pantoprazole Sodium 40 mg 05/23/24 09:00 Pantoprazole 40 Mg Tablet PO QAM ROSY Perflutren Lipid Microsphere 0 ml 05/20/24 11:44 Perflutren Lipid Microspheres 1.5 Ml Vial Diluted To 10 Ml Total Volume IV PUSH 05/23/24 11:44 ONCE PRN adequate visualization Protocol Perflutren Lipid Microsphere 0 ml 05/20/24 12:16 Perflutren Lipid Microspheres 1.5 Ml Vial Diluted To 10 Ml Total Volume IV PUSH 05/23/24 12:16 ONCE PRN adequate visualization Protocol Sodium Bicarbonate 650 mg 05/21/24 17:00 05/22/24 16:24 Sodium Bicarbonate Tab 650 Mg Tablet PO 05/24/24 09:01 650 mg BID ROSY Administration Sodium Chloride 10 ml 04/23/24 14:00 05/23/24 05:08 Central Line Flush IV PUSH 10 ml Q8HR ROSY Administration Sodium Chloride 20 ml 04/23/24 10:16 05/23/24 04:33 Central Line Flush IV PUSH 20 ml PRN PRN Administration after blood draws Sodium Chloride 10 ml 05/04/24 14:15 Central Line Flush IV PUSH PRN PRN with TPN bag changes Sodium Chloride 20 ml 05/04/24 14:15 05/18/24 06:18 Central Line Flush IV PUSH 20 ml PRN PRN Administration after blood draws Radiology Results: ITS Impressions Chest/Abdomen/Pelvis CTA 04/22/24 18:10 IMPRESSION: Perforated viscus with a large amount of free air and fluid, with mural thickening in the distal stomach and multiple punctate foci of extraluminal air in this area for which site of perforation is suspected. Renal Ultrasound 04/24/24 11:58 IMPRESSION: Simple cyst in the left kidney upper pole. Other appearances are unremarkable. Lower Extremity CTA 05/02/24 16:36 IMPRESSION: 1. Scattered atherosclerotic plaque in the arteries of the left lower limb as detailed above without a discrete hemodynamic significant stenosis. Runoff below the ankle in the left posterior tibial artery this supplies the foot. Atretic distal peroneal and anterior tibial arteries with intraluminal contrast becoming indiscernible at the level of the ankle and with no appreciable contrast in the dorsalis pedis artery. Upper GI Series 05/09/24 09:31 IMPRESSION: 1. Ulcer of the gastric antrum with contained extraluminal contrast similar to 04/28/2024. The extraluminal contrast distribution is worse than typically seen after Clarence patch repair. Abdomen CT 05/09/24 15:27 IMPRESSION: Redemonstration of a tract extending from the posterior superior margin of the antrum of the stomach only partially filled with oral contrast, perhaps demonstrating early healing. Abdomen/Pelvis CT 05/17/24 09:03 Impression: Persistent wall thickening of the gastric antrum/duodenum with surrounding haziness, compatible postoperative change. There is persistent irregular tract with small amount of fluid and external air extending from the gastric antrum superiorly/anteriorly, which could reflect abscess or persistent contained perforation. No extraluminal contrast seen, and no oral contrast seen within this collection. Intramuscular hematoma of the right iliopsoas and psoas major muscles, with additional irregular hematoma extending to the posterior right retroperitoneum. Bilateral fat-containing inguinal hernias. Small bilateral pleural effusions. Chest X-Ray 05/17/24 14:51 IMPRESSION: Left basilar atelectasis versus pneumonia. Clinical correlation advised. Chest/Abdomen/Pelvis CT 05/22/24 14:37 IMPRESSION: Nodular opacities in the right upper lobe and right middle lobe, likely representing small infectious/inflammatory foci. Segmental bibasilar atelectasis/consolidation. Small bilateral simple pleural effusions. Cardiomegaly with trace pericardial fluid. Peritoneal gas anterior to the stomach secondary to antral perforation, with possible small adjacent abscess or fistulous tract. Nonfluid density peritoneal and psoas collections, may represent complex ascites from bowel content, blood, or phlegmon, or combination thereof. Significant body wall edema. Labs Labs: Laboratory Results - last 24 hr 05/22/24 05/23/24 21:13 04:30 WBC 17.2 H RBC 2.92 L Hgb 8.7 L Hct 28.3 L MCV 96.9 MCH 29.8 MCHC 30.7 L RDW 16.5 H Plt Count 204 MPV 12.0 H Immature Gran % (Auto) 6.6 H Neut % (Auto) 76.0 H Lymph % (Auto) 7.7 L [place] % (Auto) 7.3 Eos % (Auto) 1.9 Baso % (Auto) 0.5 Lymph # (Auto) 1.33 [place] # (Auto) 1.3 H Eos # (Auto) 0.3 Baso # (Auto) 0.1 Abs Immat Gran (auto) 1.13 H Absolute Neuts (auto) 13.1 H Absolute Nucleated RBC 0.020 H Band Neutrophils % Not Reportable Nucleated RBC % 0.1 Platelet Estimate Adequate Clumped Platelets Present Hypochromasia 1+ Anisocytosis 1+ Schistocytes None seen Sodium 137 Potassium 3.7 Chloride 108 H Carbon Dioxide 23 Anion Gap 6 BUN 47 H Creatinine 1.56 H Estim Creat Clear Calc 54 Estimated GFR 43 L Glucose 115 H Calcium 8.1 L Total Bilirubin 0.6 AST 28 ALT 18 Alkaline Phosphatase 118 Total Protein 6.0 L Albumin 2.3 L Vancomycin Trough 19.7 Quality VTE Prophylaxis VTE prophylaxis: mechanical ordered and pharmacologic ordered
[2024-05-23] MEDS: ALBUMIN HUMAN 25% 12.5 GM/50ML 50 ML IVPB ×2 (08:33→16:51)
[2024-05-23] MEDS: SODIUM BICARBONATE TAB 650 MG TABLET PO ×2 (08:38→16:51)
[2024-05-23] MEDS: LIDOCAINE 5% PATCH 1 PATCH TRANSDERM (08:40)
[2024-05-23] MEDS: lisinopriL 20 MG TABLET 40 MG BY MOUTH (08:44)
[2024-05-23] MEDS: CALCIUM/VITAMIN D 500 MG/5 MCG (200 I.U.) TABLET PO (08:44)
[2024-05-23] MEDS: BUMETANIDE INJ 1 MG/4 ML VIAL 1.5 MG IV PUSH ×2 (09:26→17:40)
[2024-05-23 09:33] VITALS: O2SAT 97
[2024-05-23] MEDS: ARTIFICIAL TEARS OPHTH SOLN 15 ML BOTTLE 1 DROP EACH EYE (09:35)
--- NOTE | 2024-05-23 10:29 | PCSTNOTE ---
MBS order changed to bedside swallow eval as there was doubt if the pt could participate in testing; ST arrived to perform bedside swallow eval; pt was in agreement but his daughter stated that before testing that he has excess phlegm and secretions in his mouth/throat that may need suctioned. ST went to retrieve food items for testing and upon returning, several staff reporter were present and pt was being suctioned. Daughter called staff as he seemed to be choking on the secretions. After care and suctioning by RN, pt then asked that swallow test be done tomorrow. RN stated he has PEG tube feedings 4x/day so nutrition needs are being met.
[2024-05-23] MEDS: CEFEPIME 2 GM/NS 50 ML 2 GM/50 ML BAG IVPB ×2 (10:32→20:24)
--- NOTE | 2024-05-23 11:00 | P.PNNP_ITS ---
Progress Note: A&P Assessment and Plan (1) Acute kidney injury: Code(s): N17.9 - Acute kidney failure, unspecified Status: Acute Assessment and Plan: * better by recent labs * had improved to baseline (1.5mg/dl) on 04/30 * then georgette to the low 4ish range * now improving again * suspect initial insult to be of multifactorial etiology: * NSAID use * hypotension/hemodynmic instability/shock * sepsis/infection * third spacing * evaluation to date: * CT shows normal kidneys * renal u/s with simple cyst x 1 o/w unremarkable. * urine electrolytes are prerenal * CPK mildly elevated (but not enough to affect kidneys) * urine eosinophils negative * mild proteinuria * another acute insult noted by recent labs (since 05/02): * possible due to pre-renal factors, infection (UTI +/- pneumonia versus gastric leak) * recent imaging noted - no evidence of gastric leak * repeat urine studies (on 05/08) suggestive of UTI and prerenal azotemia * despite prerenal urine electrolytes, he has evidence of volume overload again * suspect related to 3rd spacing and hypoalbuminemia * recent echocardiogram shows good LV function and no pulmonary hypertension * good diuresis/UOP with IV albumin and IV lasix previously... * restarted IV albumin + IV bumex today x 6 doses * follow trend of urine output and I/Os with this intervention * follow trend of repeat labs and UOP (2) Stage 3b chronic kidney disease: Code(s): N18.32 - Chronic kidney disease, stage 3b Status: Chronic Assessment and Plan: * creatinine ~ 1.5mg/dl in November 2023 * suspect secondary to hypertension, peripheral vascular disease, and possibly chronic NSAID use as well as age-related change (3) Bacteremia: Code(s): R78.81 - Bacteremia Status: Acute Assessment and Plan: * blood cultures with MRSA * continue IV antibiotics * follow repeat blood cultures * source? (4) Perforated gastric ulcer: Onset Date: 04/2024 Qualifiers: Gastric ulcer chronicity: acute Qualified Code(s): K25.1 - Acute gastric ulcer with perforation Code(s): K25.5 - Chronic or unspecified gastric ulcer with perforation Status: Acute Assessment and Plan: * suspect secondary to NSAID use * s/p exploratory laparotomy and repair of antral gastric ulcer with omental Clarence patch and placement of open gastrostomy tube (on 04/22) * TPN discontinued * bolus G-tube feedings with meals; continue oral feeding * General Surgery following (5) Hematoma: Code(s): T14.8XXA - Other injury of unspecified body region, initial encounter Status: Acute Assessment and Plan: * as noted by CT abdomen pelvis on 05/17/2024 * likely a contributing component to anemia * Lovenox on hold (6) Anemia: Code(s): D64.9 - Anemia, unspecified Status: Acute Assessment and Plan: * noted acute drop (on 05/10, 05/11, and 05/12) requiring blood transfusion * due to RIC, CKD, and acute illness along with CT scan findings on 05/17: * Intramuscular hematoma of the right iliopsoas and psoas major muscles, with additional irregular hematoma extending to the posterior right retroperitoneum * anemia studies also note iron deficiency * PRBC transfusion per protocol * on Epogen 3x/week (7) PAD (peripheral artery disease): Code(s): I73.9 - Peripheral vascular disease, unspecified Status: Acute Assessment and Plan: * CTA of left lower extremity noted * suspect acute on chronic issue * was on anticoagulation but on hold due to #5 (8) Malnutrition following gastrointestinal surgery: Code(s): K91.2 - Postsurgical malabsorption, not elsewhere classified Status: Chronic Assessment and Plan: * off TPN * tube feeds ongoing with boluses * attempting to transition to oral intake (but poor appetite noted) * on appetite stimulant (9) HTN (hypertension): Code(s): I10 - Essential (primary) hypertension Status: Acute Assessment and Plan: * reasonable control * follow trend of hemodynamics (10) Generalized weakness: Code(s): R53.1 - Weakness Status: Acute Assessment and Plan: * multifactorial * PT/OT as tolerated Will continue to follow. L Subjective Date/time seen: 05/23/24 11:00 Interval history: Follow-up for acute kidney injury/actue renal failure on chronic kidney disease. Renal function/creatinine appears stable if not better by recent testing; appears to be tolerating diuresis better with IV albumin + IV bumex with slow improvement in swelling/edema; still remains fatigued/weak in general; major complaint at this time is that of right wrist pain. Exam 2 Narrative: General: elderly but WD/WN male in NAD Heart: normal S1 and S2; no rub Lungs: clear anteriorly; decreased at bases Abdomen: soft, nontender; some bowel sounds; +G-tube Extremities: no cyanosis or clubbing; 1 - 2+ edema Skin: no nodules Objective Data Vital Signs Vital Signs: Vital Signs Temp Pulse Resp BP Pulse Ox O2 Del Method 05/23/24 09:33 97 Room Air 05/23/24 04:59 97.4 F L 86 20 175/81 H 97 05/22/24 22:00 97.7 F 86 20 177/66 H 97 05/22/24 22:00 Room Air 05/22/24 14:00 97.2 F L 84 17 167/81 H 99 Intake/Output Intake/Output: Intake & Output 05/20/24 05/21/24 05/22/24 05/23/24 23:59 23:59 23:59 23:59 Intake Total 2645 4230 2210 490 Output Total 1020 2150 4000 2450 Balance 1625 2080 -1790 -1960 Meds/Results Medications: Active Medications Generic Name Dose Route Start Last Admin Trade Name Freq PRN Reason Stop Dose Admin Acetaminophen 650 mg 04/26/24 22:19 04/26/24 22:57 Acetaminophen 650 Mg Suppository RECTAL 650 mg Q6H PRN Administration Mild Pain (1-3) or Fever Acetaminophen 650 mg 05/05/24 10:27 05/20/24 05:31 Acetaminophen Elixir 325 Mg/10.15 Ml Udc PO 650 mg Q6H PRN Administration Mild Pain (1-3) or Fever Alteplase, Recombinant 2 mg 05/22/24 21:26 05/22/24 21:57 Alteplase 2 Mg Vial (Cathflo) IV PUSH 2 mg ONCE PRN Administration Line Occlusion Artificial Tears 1 drop 04/27/24 08:37 05/23/24 09:35 Artificial Tears Ophth Soln 15 Ml Bottle EACH EYE 1 drop QID PRN Administration Dry Eye(s) Atorvastatin Calcium 20 mg 04/30/24 09:00 Atorvastatin 20 Mg Tablet BY MOUTH DAILY ROSY Benzocaine 1 lozenge 05/15/24 15:35 05/21/24 12:14 Benzocaine/Menthol (*Bkc) 18 Ea Lozenge PO 1 lozenge PRN PRN Administration Sore Throat Bumetanide 1.5 mg 05/22/24 17:00 05/23/24 09:26 Bumetanide Inj 1 Mg/4 Ml Vial IV PUSH 05/24/24 09:01 1.5 mg BID ROSY Administration Calcium Carbonate 500 mg 05/19/24 08:00 05/23/24 08:44 Calcium/Vitamin D 500 Mg/5 Mcg (200 I.U.) Tablet PO 500 mg DAILY@0800 [facility] Administration Clonidine HCl 1 patch 05/01/24 09:00 05/22/24 09:26 Clonidine 0.1 Mg/24 Hr Patch TRANSDERM 1 patch WEEKLY [facility] Administration Dronabinol 2.5 mg 05/17/24 16:30 05/22/24 15:58 Dronabinol (*Crx) 2.5 Mg Capsule PO Not Given DAILY@1630 [facility] Enoxaparin Sodium 120 mg 05/09/24 06:00 05/17/24 05:05 Enoxaparin 120 Mg/0.8 Ml Syringe SUB-Q 120 mg Q24H [facility] Administration Epoetin Olu-epbx 10,000 units 05/14/24 11:05 05/21/24 09:11 Epoetin Olu-Epbx 10,000 Units/Ml Vial SUB-Q 10,000 units TUTHSA@09 [facility] Administration Guaifenesin/Dextromethorphan 10 ml 05/15/24 10:07 05/22/24 01:23 Guaifenesin/Dextromethorphan 10 Ml Udc PO 10 ml Q4H PRN Administration Cough Hydralazine HCl 10 mg 04/25/24 08:00 05/23/24 05:07 Hydralazine Hcl 20 Mg/Ml Vial IV PUSH 10 mg Q4H PRN Administration Blood Pressure - High Cefepime HCl 2 gm in 50 mls @ 100 mls/hr 05/18/24 09:00 05/23/24 10:32 Maxipime 2 Gm/Ns 50 Ml IVPB 100 mls/hr Q12HR ROSY Administration Metronidazole 500 mg in 100 mls @ 100 mls/hr 05/18/24 09:00 05/23/24 09:30 Flagyl 500 Mg/Iso Soln 100 Ml IVPB 100 mls/hr Q8H [facility] Administration Micafungin Sodium 100 mg/ 100 mls @ 100 mls/hr 05/18/24 09:00 05/23/24 11:02 Sodium Chloride IVPB 100 mls/hr DAILY ROSY Administration Albumin Human 50 mls @ 50 mls/hr 05/22/24 17:00 05/23/24 09:33 Albutein IVPB 05/24/24 09:59 Infused BID ROSY Infusion Vancomycin HCl 1,250 mg in 250 mls @ 166.667 mls/hr 05/22/24 23:00 05/22/24 23:50 Vancomycin 1,250 Mg/Ns 250 Ml IVPB Infused Q24H ROSY Infusion Ipratropium [place] 0.5 mg 05/04/24 09:32 05/17/24 10:11 Ipratropium Br 0.02% Inh Soln 0.5 Mg/2.5 Ml Vial INHALATION 0.5 mg Q6HRT PRN Administration Shortness Of Breath Levalbuterol HCl 0.63 mg 05/04/24 09:32 05/17/24 10:11 Levalbuterol Neb 1.25 Mg/3 Ml INHALATION 0.63 mg Q6HRT PRN Administration Shortness Of Breath Lidocaine 1 patch 05/18/24 09:00 05/23/24 08:40 Lidocaine 5% Patch TRANSDERM 1 patch DAILY ROSY Administration Lisinopril 40 mg 05/20/24 15:05 05/23/24 08:44 Lisinopril 20 Mg Tablet BY MOUTH 40 mg DAILY ROSY Administration Lorazepam 0.5 mg 05/16/24 13:48 05/22/24 09:54 Lorazepam (*Crx) 0.5 Mg Tablet PO 0.5 mg Q6H PRN Administration Anxiety Miscellaneous Information 0 each 05/20/24 00:01 Please Renew Morphine- 10 Day Stop For Narcotic XX 06/19/24 00:00 CLARIFY ROSY Miscellaneous Information 1 each 05/22/24 00:01 Order Clarification XX 06/21/24 00:00 CLARIFY ROSY Miscellaneous Information 0 each 05/22/24 00:01 Central Line Flush Orders Will Need Renewed XX 06/21/24 00:00 CLARIFY ROSY Ondansetron HCl 4 mg 05/13/24 11:22 05/21/24 05:44 Ondansetron Inj 4 Mg/2 Ml Vial IV PUSH 4 mg Q6H PRN Administration Nausea And Vomiting Pantoprazole Sodium 40 mg 05/23/24 09:00 05/23/24 10:43 Pantoprazole 40 Mg Tablet PO Not Given QAM ROSY Perflutren Lipid Microsphere 0 ml 05/20/24 11:44 Perflutren Lipid Microspheres 1.5 Ml Vial Diluted To 10 Ml Total Volume IV PUSH 05/23/24 11:44 ONCE PRN adequate visualization Protocol Perflutren Lipid Microsphere 0 ml 05/20/24 12:16 Perflutren Lipid Microspheres 1.5 Ml Vial Diluted To 10 Ml Total Volume IV PUSH 05/23/24 12:16 ONCE PRN adequate visualization Protocol Sodium Bicarbonate 650 mg 05/21/24 17:00 05/23/24 08:38 Sodium Bicarbonate Tab 650 Mg Tablet PO 05/24/24 09:01 650 mg BID ROSY Administration Sodium Chloride 10 ml 04/23/24 14:00 05/23/24 05:08 Central Line Flush IV PUSH 10 ml Q8HR ROSY Administration Sodium Chloride 10 ml 05/04/24 14:15 Central Line Flush IV PUSH PRN PRN with TPN bag changes Sodium Chloride 20 ml 05/04/24 14:15 05/18/24 06:18 Central Line Flush IV PUSH 20 ml PRN PRN Administration after blood draws Radiology Results: ITS Impressions Chest/Abdomen/Pelvis CTA 04/22/24 18:10 IMPRESSION: Perforated viscus with a large amount of free air and fluid, with mural thickening in the distal stomach and multiple punctate foci of extraluminal air in this area for which site of perforation is suspected. Renal Ultrasound 04/24/24 11:58 IMPRESSION: Simple cyst in the left kidney upper pole. Other appearances are unremarkable. Lower Extremity CTA 05/02/24 16:36 IMPRESSION: 1. Scattered atherosclerotic plaque in the arteries of the left lower limb as detailed above without a discrete hemodynamic significant stenosis. Runoff below the ankle in the left posterior tibial artery this supplies the foot. Atretic distal peroneal and anterior tibial arteries with intraluminal contrast becoming indiscernible at the level of the ankle and with no appreciable contrast in the dorsalis pedis artery. Upper GI Series 05/09/24 09:31 IMPRESSION: 1. Ulcer of the gastric antrum with contained extraluminal contrast similar to 04/28/2024. The extraluminal contrast distribution is worse than typically seen after Clarence patch repair. Abdomen CT 05/09/24 15:27 IMPRESSION: Redemonstration of a tract extending from the posterior superior margin of the antrum of the stomach only partially filled with oral contrast, perhaps demonstrating early healing. Abdomen/Pelvis CT 05/17/24 09:03 Impression: Persistent wall thickening of the gastric antrum/duodenum with surrounding haziness, compatible postoperative change. There is persistent irregular tract with small amount of fluid and external air extending from the gastric antrum superiorly/anteriorly, which could reflect abscess or persistent contained perforation. No extraluminal contrast seen, and no oral contrast seen within this collection. Intramuscular hematoma of the right iliopsoas and psoas major muscles, with additional irregular hematoma extending to the posterior right retroperitoneum. Bilateral fat-containing inguinal hernias. Small bilateral pleural effusions. Chest X-Ray 05/17/24 14:51 IMPRESSION: Left basilar atelectasis versus pneumonia. Clinical correlation advised. Chest/Abdomen/Pelvis CT 05/22/24 14:37 IMPRESSION: Nodular opacities in the right upper lobe and right middle lobe, likely representing small infectious/inflammatory foci. Segmental bibasilar atelectasis/consolidation. Small bilateral simple pleural effusions. Cardiomegaly with trace pericardial fluid. Peritoneal gas anterior to the stomach secondary to antral perforation, with possible small adjacent abscess or fistulous tract. Nonfluid density peritoneal and psoas collections, may represent complex ascites from bowel content, blood, or phlegmon, or combination thereof. Significant body wall edema. Labs Labs: Laboratory Tests 05/23/24 04:30 05/23/24 04:30 Calcium 8.1 L Total Bilirubin 0.6 AST 28 ALT 18 Alkaline Phosphatase 118 Total Protein 6.0 L Albumin 2.3 L Vancomycin Trough Microbiology 05/20/24 12:47 Blood Blood Culture - Preliminary Methicillin Resis Staph Aureus 05/20/24 10:37 Blood Blood Culture - Preliminary Methicillin Resis Staph Aureus 05/22/24 10:58 Blood Blood Culture - Preliminary 05/22/24 09:27 Blood Blood Culture - Preliminary
[2024-05-23] MEDS: MICAFUNGIN SODIUM 100 MG in SODIUM CHLORIDE 0.9% IV 100 ML IVPB (11:02)
[2024-05-23 14:00] VITALS: BP 174/74; PULSE 92; RESP 16; TEMP 37.1; O2SAT 98
--- NOTE | 2024-05-23 15:00 | PM.PNGS ---
Progress Note: A&P Assessment and Plan (1) Perforated gastric ulcer: Onset Date: 04/2024 Qualifiers: Gastric ulcer chronicity: acute Qualified Code(s): K25.1 - Acute gastric ulcer with perforation Code(s): K25.5 - Chronic or unspecified gastric ulcer with perforation Status: Acute Assessment and Plan: Repaired with omental patch 04/22/2024. (2) Malnutrition following gastrointestinal surgery: Code(s): K91.2 - Postsurgical malabsorption, not elsewhere classified Status: Acute Assessment and Plan: His p.o. intake seem to be improving, but there were concerns of aspiration yesterday which prompted him to be switched to an NPO status. Speech therapy has been consulted for a bedside swallow evaluation. Continue Nepro per G-tube for now while awaiting speech eval. (3) Acute kidney injury superimposed on stage 3b chronic kidney disease: Code(s): N17.9 - Acute kidney failure, unspecified; N18.32 - Chronic kidney disease, stage 3b Status: Acute Assessment and Plan: Seems to be slowly improving. Patient receiving albumin and being diuresed again today. He is making good urine. Nephrology following. (4) MRSA (methicillin resistant staph aureus) culture positive: Code(s): Z22.322 - Carrier or suspected carrier of Methicillin resistant Staphylococcus aureus Status: Acute Assessment and Plan: Cultures were drawn on 05/20/2024 and growing MRSA. Repeat cultures drawn yesterday. Source unclear. Continue on broad-spectrum antibiotics, can hopefully discontinue all but vancomycin in the next couple of days. Nasal swab on 05/18/2024 also positive PCR for MRSA. Plan I have discussed the patient's case and plan of care with Dr. Aguiar. Subjective Subjective Date/Time Seen: 05/23/24 15:00 Interval history: 04/22/2024 -exploratory laparotomy with repair of antral gastric ulcer with omental Clarence patch Patient seen today with his daughter at the bedside. He denies any abdominal pain or nausea. He is currently nothing to eat or drink by mouth due to concerns with aspiration over the weekend. Nursing reports he had some coughing and difficulty with clearing his airway after drinking liquids. Speech therapy was consulted this morning. He is still getting bolus tube feedings and tolerating this well. His only complaint of pain is in his right wrist. This started this morning. He cannot recall any injury to his right wrist or arm. He has not been getting out of bed in therapy signed off due to his inability to work with therapy. Per nursing, he has not been out of bed for a few days. WBC count trending down over the past few days. He has been afebrile. Exam Const: General: comfortable and no acute distress Orientation/consciousness: patient oriented x3 GI: Inspection: Abdominal wall edema bilateral and non-distended GI Palp: Yes Soft to palpation, No Tenderness to palpation present (GI), No Guarding due to palpation present (GI) and No Rebound tenderness present Auscultation: normal bowel sounds Other: G-tube site clean with G-tube in place and clamped Gauze dressing in place in the right upper quadrant and left upper quadrant from previous ELSA drains, gauze dressing dry and intact. Midline incision well healed Urinary Catheter: Urinary Catheter: other (Has external catheter) Extrem: General: no calf tenderness Left upper extremity: edema Objective Data Vital Signs Vital Signs: Vital Signs - 24 hr 05/22/24 22:00 05/22/24 22:00 05/23/24 04:59 Temperature 97.7 F 97.4 F L Pulse Rate 86 86 Respiratory Rate 20 20 Blood Pressure 177/66 H 175/81 H Pulse Oximetry 97 97 Oxygen Delivery Room Air 05/23/24 09:33 05/23/24 14:00 Temperature 98.7 F Pulse Rate 92 Respiratory Rate 16 Blood Pressure 174/74 H Pulse Oximetry 97 98 Oxygen Delivery Room Air Intake/Output Intake/Output: Intake & Output 05/20/24 05/21/24 05/22/24 05/23/24 23:59 23:59 23:59 23:59 Intake Total 2645 4230 2210 1080 Output Total 1020 2150 4000 2850 Balance 1625 2080 -1790 -1770 Meds/Results Medications: Active Medications Generic Name Dose Route Start Last Admin Trade Name Freq PRN Reason Stop Dose Admin Acetaminophen 650 mg 04/26/24 22:19 04/26/24 22:57 Acetaminophen 650 Mg Suppository RECTAL 650 mg Q6H PRN Administration Mild Pain (1-3) or Fever Acetaminophen 650 mg 05/05/24 10:27 05/20/24 05:31 Acetaminophen Elixir 325 Mg/10.15 Ml Udc PO 650 mg Q6H PRN Administration Mild Pain (1-3) or Fever Alteplase, Recombinant 2 mg 05/22/24 21:26 05/22/24 21:57 Alteplase 2 Mg Vial (Cathflo) IV PUSH 2 mg ONCE PRN Administration Line Occlusion Artificial Tears 1 drop 04/27/24 08:37 05/23/24 09:35 Artificial Tears Ophth Soln 15 Ml Bottle EACH EYE 1 drop QID PRN Administration Dry Eye(s) Atorvastatin Calcium 20 mg 04/30/24 09:00 Atorvastatin 20 Mg Tablet BY MOUTH DAILY [facility] Benzocaine 1 lozenge 05/15/24 15:35 05/21/24 12:14 Benzocaine/Menthol (*Bkc) 18 Ea Lozenge PO 1 lozenge PRN PRN Administration Sore Throat Bumetanide 1.5 mg 05/22/24 17:00 05/23/24 09:26 Bumetanide Inj 1 Mg/4 Ml Vial IV PUSH 05/24/24 09:01 1.5 mg BID [facility] Administration Calcium Carbonate 500 mg 05/19/24 08:00 05/23/24 08:44 Calcium/Vitamin D 500 Mg/5 Mcg (200 I.U.) Tablet PO 500 mg DAILY@0800 [facility] Administration Clonidine HCl 1 patch 05/01/24 09:00 05/22/24 09:26 Clonidine 0.1 Mg/24 Hr Patch TRANSDERM 1 patch WEEKLY [facility] Administration Dronabinol 2.5 mg 05/17/24 16:30 05/22/24 15:58 Dronabinol (*Crx) 2.5 Mg Capsule PO Not Given DAILY@1630 [facility] Enoxaparin Sodium 120 mg 05/09/24 06:00 05/17/24 05:05 Enoxaparin 120 Mg/0.8 Ml Syringe SUB-Q 120 mg Q24H [facility] Administration Epoetin Olu-epbx 10,000 units 05/14/24 11:05 05/21/24 09:11 Epoetin Olu-Epbx 10,000 Units/Ml Vial SUB-Q 10,000 units TUTHSA@09 [facility] Administration Guaifenesin/Dextromethorphan 10 ml 05/15/24 10:07 05/22/24 01:23 Guaifenesin/Dextromethorphan 10 Ml Udc PO 10 ml Q4H PRN Administration Cough Hydralazine HCl 10 mg 04/25/24 08:00 05/23/24 05:07 Hydralazine Hcl 20 Mg/Ml Vial IV PUSH 10 mg Q4H PRN Administration Blood Pressure - High Cefepime HCl 2 gm in 50 mls @ 100 mls/hr 05/18/24 09:00 05/23/24 11:02 Maxipime 2 Gm/Ns 50 Ml IVPB Infused Q12HR [facility] Infusion Metronidazole 500 mg in 100 mls @ 100 mls/hr 05/18/24 09:00 05/23/24 10:30 Flagyl 500 Mg/Iso Soln 100 Ml IVPB Infused Q8H [facility] Infusion Micafungin Sodium 100 mg/ 100 mls @ 100 mls/hr 05/18/24 09:00 05/23/24 12:02 Sodium Chloride IVPB Infused DAILY [facility] Infusion Albumin Human 50 mls @ 50 mls/hr 05/22/24 17:00 05/23/24 09:33 Albutein IVPB 05/24/24 09:59 Infused BID [facility] Infusion Vancomycin HCl 1,250 mg in 250 mls @ 166.667 mls/hr 05/22/24 23:00 05/22/24 23:50 Vancomycin 1,250 Mg/Ns 250 Ml IVPB Infused Q24H [facility] Infusion Ipratropium [place] 0.5 mg 05/04/24 09:32 05/17/24 10:11 Ipratropium Br 0.02% Inh Soln 0.5 Mg/2.5 Ml Vial INHALATION 0.5 mg Q6HRT PRN Administration Shortness Of Breath Levalbuterol HCl 0.63 mg 05/04/24 09:32 05/17/24 10:11 Levalbuterol Neb 1.25 Mg/3 Ml INHALATION 0.63 mg Q6HRT PRN Administration Shortness Of Breath Lidocaine 1 patch 05/18/24 09:00 05/23/24 08:40 Lidocaine 5% Patch TRANSDERM 1 patch DAILY [facility] Administration Lisinopril 40 mg 05/20/24 15:05 05/23/24 08:44 Lisinopril 20 Mg Tablet BY MOUTH 40 mg DAILY [facility] Administration Lorazepam 0.5 mg 05/16/24 13:48 05/22/24 09:54 Lorazepam (*Crx) 0.5 Mg Tablet PO 0.5 mg Q6H PRN Administration Anxiety Miscellaneous Information 0 each 05/20/24 00:01 Please Renew Morphine- 10 Day Stop For Narcotic XX 06/19/24 00:00 CLARIFY ROSY Miscellaneous Information 1 each 05/22/24 00:01 Order Clarification XX 06/21/24 00:00 CLARIFY ROSY Miscellaneous Information 0 each 05/22/24 00:01 Central Line Flush Orders Will Need Renewed XX 06/21/24 00:00 CLARIFY [facility] Ondansetron HCl 4 mg 05/13/24 11:22 05/21/24 05:44 Ondansetron Inj 4 Mg/2 Ml Vial IV PUSH 4 mg Q6H PRN Administration Nausea And Vomiting Pantoprazole Sodium 40 mg 05/23/24 09:00 05/23/24 10:43 Pantoprazole 40 Mg Tablet PO Not Given QAM [facility] Sodium Bicarbonate 650 mg 05/21/24 17:00 05/23/24 08:38 Sodium Bicarbonate Tab 650 Mg Tablet PO 05/24/24 09:01 650 mg BID [facility] Administration Sodium Chloride 10 ml 05/04/24 14:15 Central Line Flush IV PUSH PRN PRN with TPN bag changes Sodium Chloride 20 ml 05/04/24 14:15 05/18/24 06:18 Central Line Flush IV PUSH 20 ml PRN PRN Administration after blood draws Radiology Results: ITS Impressions Chest/Abdomen/Pelvis CTA 04/22/24 18:10 IMPRESSION: Perforated viscus with a large amount of free air and fluid, with mural thickening in the distal stomach and multiple punctate foci of extraluminal air in this area for which site of perforation is suspected. Renal Ultrasound 04/24/24 11:58 IMPRESSION: Simple cyst in the left kidney upper pole. Other appearances are unremarkable. Lower Extremity CTA 05/02/24 16:36 IMPRESSION: 1. Scattered atherosclerotic plaque in the arteries of the left lower limb as detailed above without a discrete hemodynamic significant stenosis. Runoff below the ankle in the left posterior tibial artery this supplies the foot. Atretic distal peroneal and anterior tibial arteries with intraluminal contrast becoming indiscernible at the level of the ankle and with no appreciable contrast in the dorsalis pedis artery. Upper GI Series 05/09/24 09:31 IMPRESSION: 1. Ulcer of the gastric antrum with contained extraluminal contrast similar to 04/28/2024. The extraluminal contrast distribution is worse than typically seen after Clarence patch repair. Abdomen CT 05/09/24 15:27 IMPRESSION: Redemonstration of a tract extending from the posterior superior margin of the antrum of the stomach only partially filled with oral contrast, perhaps demonstrating early healing. Abdomen/Pelvis CT 05/17/24 09:03 Impression: Persistent wall thickening of the gastric antrum/duodenum with surrounding haziness, compatible postoperative change. There is persistent irregular tract with small amount of fluid and external air extending from the gastric antrum superiorly/anteriorly, which could reflect abscess or persistent contained perforation. No extraluminal contrast seen, and no oral contrast seen within this collection. Intramuscular hematoma of the right iliopsoas and psoas major muscles, with additional irregular hematoma extending to the posterior right retroperitoneum. Bilateral fat-containing inguinal hernias. Small bilateral pleural effusions. Chest X-Ray 05/17/24 14:51 IMPRESSION: Left basilar atelectasis versus pneumonia. Clinical correlation advised. Chest/Abdomen/Pelvis CT 05/22/24 14:37 IMPRESSION: Nodular opacities in the right upper lobe and right middle lobe, likely representing small infectious/inflammatory foci. Segmental bibasilar atelectasis/consolidation. Small bilateral simple pleural effusions. Cardiomegaly with trace pericardial fluid. Peritoneal gas anterior to the stomach secondary to antral perforation, with possible small adjacent abscess or fistulous tract. Nonfluid density peritoneal and psoas collections, may represent complex ascites from bowel content, blood, or phlegmon, or combination thereof. Significant body wall edema. Hand X-Ray 05/23/24 13:08 IMPRESSION: 1. No acute fracture. 2. Likely chronic malalignment at the wrist and carpus including 1 cm ulnar minus variance and disruption of the proximal carpal row which is most likely sequela of old trauma. 3. 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 4. Multiple subarticular lucencies at the wrist and carpus most likely degenerative subchondral cyst although differential includes chronic erosion such as in the setting of gout. Labs Labs: Laboratory Results - last 24 hr 05/22/24 05/23/24 21:13 04:30 WBC 17.2 H RBC 2.92 L Hgb 8.7 L Hct 28.3 L MCV 96.9 MCH 29.8 MCHC 30.7 L RDW 16.5 H Plt Count 204 MPV 12.0 H Immature Gran % (Auto) 6.6 H Neut % (Auto) 76.0 H Lymph % (Auto) 7.7 L [place] % (Auto) 7.3 Eos % (Auto) 1.9 Baso % (Auto) 0.5 Lymph # (Auto) 1.33 [place] # (Auto) 1.3 H Eos # (Auto) 0.3 Baso # (Auto) 0.1 Abs Immat Gran (auto) 1.13 H Absolute Neuts (auto) 13.1 H Absolute Nucleated RBC 0.020 H Band Neutrophils % Not Reportable Nucleated RBC % 0.1 Platelet Estimate Adequate Clumped Platelets Present Hypochromasia 1+ Anisocytosis 1+ Schistocytes None seen Sodium 137 Potassium 3.7 Chloride 108 H Carbon Dioxide 23 Anion Gap 6 BUN 47 H Creatinine 1.56 H Estim Creat Clear Calc 54 Estimated GFR 43 L Glucose 115 H Calcium 8.1 L Total Bilirubin 0.6 AST 28 ALT 18 Alkaline Phosphatase 118 Total Protein 6.0 L Albumin 2.3 L Vancomycin Trough 19.7
[2024-05-23 15:03] VITALS: BP 165/65; PULSE 94; RESP 16; TEMP 36.5; O2SAT 96
--- NOTE | 2024-05-23 15:07 | PHA.ABX.ID ---
Pharmacy ID Consult Stewardship Interventions Pharmacy ID Note: Subjective Pharmacy was consulted by Demarco Jon regarding infectious diseases for Ludin Menon. Ludin Menon is a 78 year old [f_Reg Sex] with concerns regarding MRSA Bacteremia. Background The patient is currently receiving Cefepime, Micafungin, Metronidazole, Vancomycin - Day 6. The patient's PMH includes perforated ulcer, renal dysfunction, among others mentioned in providers notes. Additionally, patient WBC has been uptrending last week, peaking at 05/18, when the antimicrobials above were initiated, at 29. Slow decrease has followed to today's WBC of 17.2. Patient had 100.1 temp on 05/18 but has been afebrile since and their RIC is trending towards baseline, currently at 1.56 mg/dL but had been 2.47 on 05/18. Patient completed a course with piperacillin/tazobactam prior to 05/18. Cultures 04/23/24: BCX: NG 05/18/24: MRSA Nares PCR: Detected 05/18/24: BCX: MRSA 05/18/24: UCX: No growth 05/20/24: BCX: MRSA 05/22/24: BCX: NGTD - though this has been <48 hours at this time Assessment/Recommendation/Discussion The patient is currently receiving therapy empirically targeting a abdominal source, nosocomial sources, as well as MRSA. Targeted therapy is appropriate with vancomycin to the MRSA growing in the patient's blood for which we are awaiting clear cultures. The remainder of therapy could potentially be discontinued soon as cultures have not shown any alternative pathogen to target. Regarding the MRSA bacteremia - duration should be 2-4 weeks from negative blood culture depending on if this is complicated or uncomplicated MRSA BSI - likely leaning towards complicated given the complications this patient has undergone, but will defer to consulting provider. Provider had obtained TTE to find potential sources for bacteremia, TTE was negative. Patient has a PICC line that could be the source of this patient's bloodstream infection, or at least play a role in maintaining the current persistent bacteremia. Could consider line exchange. Patient may benefit from ID provider consult, could consider transfer. Adding mupirocin for nares for 5 days for decolonization of MRSA per conversation with [employer]. Will continue to follow. Rasheed Angel, RoselynD Infectious Disease/Antimicrobial Stewardship Pharmacist 04/14/25; 1507 WBC 17.2 K/mm3 (4.5-10.0) H 05/23/24 04:30 Creatinine 1.56 mg/dL (0.7-1.3) H 05/23/24 04:30 Estim Creat Clear Calc 54 ml/min 05/23/24 04:30
[2024-05-23 16:50] LABS: Glucose Point of Care 107 mg/dl (65-105)
[2024-05-23] MEDS: PANTOPRAZOLE SODIUM IV 40 MG VIAL IV PUSH (16:50)
[2024-05-23] MEDS: MUPIROCIN 2% OINT 22 GM TUBE 1 APPLIC EACH NARE (20:25)
[2024-05-23 21:20] VITALS: BP 151/67; PULSE 100; RESP 25; TEMP 36.9; O2SAT 96
[2024-05-23 21:27] LABS: Alveolar/Arterial O2 Gradient 51.9 mmHg; Base Excess ABG 0.4 mEq/l (+/-2.0); Fractional Inspired Oxygen 21 %; HCO3 ABG 22.1 mEq/l (22.0-26.0); Oxygen Content ABG 13.5 %vol (16.0-22.0); Oxygen Saturation ABG 95.5 % (95.0-100.0); Oxyhemoglobin 94.7 % THb (90.0-100.0); PCO2 ABG 26.3 mmHg (35.0-45.0); PO2 ABG 66.3 mmHg (80.0-100.0); PO2 FiO2 Ratio Arterial Blood 3.16 %; Total Hemoglobin 10.1 g/dL (12.0-18.0)
[2024-05-23 21:29] LABS: Device ROOM AIR; Modified Allen's Test Pass; Site Drawn RIGHT RADIAL; pH ABG 7.542 (7.350-7.450)
[2024-05-23] MEDS: BUMETANIDE INJ 1 MG/4 ML VIAL 2 MG IV PUSH (22:27)
[2024-05-23] MEDS: VANCOMYCIN 1,250 MG/NS 250 ML 1,250 MG/250 ML BAG 166.67 MG IVPB (22:28)
[2024-05-24] VITALS (8 sets, daily range): BP systolic 145–163; BP diastolic 53–64; PULSE 90–95; RESP 18–24; TEMP 36.4–37.8; O2SAT 95–97
[2024-05-24] MEDS: metroNIDAZOLE 500 MG/ISO 100ML 500 MG/100 ML BAG 100 MG IVPB ×3 (00:04→16:21)
[2024-05-24] MEDS: CENTRAL LINE FLUSH 20 ML IV PUSH (03:44)
[2024-05-24 03:59] LABS: Hematocrit 26.3 % (42.0-52.0); Hemoglobin 8.2 g/dL (14.0-18.0); Mean Corpuscular HGB Conc 31.2 g/dl (32-36); Mean Corpuscular Hemoglobin 29.4 pg (26-34); Mean Corpuscular Volume 94.3 fl (80-100); Mean Platelet Volume 11.9 fl (7.4-10.4); Platelet Count Result 220 k/mm3 (150-375); Red Blood Count 2.79 M/mm3 (4.6-6.20); Red Cell Distribution Width 16.7 % (11.5-14.5); White Blood Count 18.4 K/mm3 (4.5-10.0)
[2024-05-24 04:07] LABS: Alanine Aminotransferase 16 U/L (6-50); Albumin Level 2.4 g/dL (3.5-5.1); Alkaline Phosphatase 95 U/L (38-126); Anion Gap 4 mmol/L (4-12); Aspartate Amino Transferase 38 U/L (17-59); Bilirubin,Total 0.8 mg/dL (0.2-1.3); Blood Urea Nitrogen 47 mg/dL (9-20); Carbon Dioxide 26 mmol/L (22-30); Chloride 107 mmol/L (98-107); Estimated CRCL calculation 54 ml/min; Estimated Glomerular Filt Rate 43; Glucose 109 mg/dL (65-110); Potassium 3.3 mmol/L (3.4-5.0); Sodium 137 mmol/L (137-145)
[2024-05-24 04:16] LABS: NT Pro B Type Natriuretic Pept 2450 pg/mL (19.9-100)
[2024-05-24 04:26] LABS: Band Neutrophils Percent 4 % (0-6); Basophils Absolute Manual 0.18 K/mm3 (0.0-0.1); Basophils Percent Manual 1 % (0-1); Eosinophils Absolute Manual 0.36 K/mm3 (0.02-0.50); Eosinophils Percent Manual 2 % (0-4); Monocytes Absolute Manual 0.36 K/mm3 (0.1-0.90); Monocytes Percent Manual 2 % (3-9); Neutrophils Absolute Manual 16.37 K/mm3 (1.3-6.7); Neutrophils Percent Manual 85 % (46-73); Platelet Estimate Adequate (Adequate); Total Cells Counted 100
[2024-05-24 04:27] LABS: Ovalocytes 1+; Schistocytes None Seen; Stomatocytes 1+
[2024-05-24] MEDS: POTASSIUM CHLORIDE 20 MEQ PACKET (FOR LIQUID) 40 MEQ FEED TUBE (04:56)
[2024-05-24] MEDS: hydrALAZINE HCL 20 MG/ML VIAL 10 MG IV PUSH ×2 (04:56→20:02)
[2024-05-24] MEDS: LIDOCAINE 5% PATCH 1 PATCH TRANSDERM (09:30)
[2024-05-24] MEDS: EPOETIN ALFA-EPBX 10,000 UNITS/ML VIAL 10000 UNITS SUB-Q (09:32)
[2024-05-24] MEDS: lisinopriL 20 MG TABLET 40 MG BY MOUTH (09:34)
[2024-05-24] MEDS: CALCIUM/VITAMIN D 500 MG/5 MCG (200 I.U.) TABLET PO (09:34)
[2024-05-24] MEDS: SODIUM BICARBONATE TAB 650 MG TABLET PO (09:34)
[2024-05-24] MEDS: MUPIROCIN 2% OINT 22 GM TUBE 1 APPLIC EACH NARE ×2 (09:35→20:09)
--- NOTE | 2024-05-24 10:31 | P.PNGS_ITS ---
Progress Note: A&P Assessment and Plan (1) Perforated gastric ulcer: Onset Date: 04/2024 Qualifiers: Gastric ulcer chronicity: acute Qualified Code(s): K25.1 - Acute gastric ulcer with perforation Code(s): K25.5 - Chronic or unspecified gastric ulcer with perforation Status: Acute Assessment and Plan: Repaired with omental patch 04/22/2024. WBC count up slightly to 18,[address] scan over the weekend suggested a possible small abscess near the stomach. He is not complaining of any abdominal pain and remains nontender on exam. Continue broad-spectrum IV antibiotics today and we will review the CT scan with the Radiologist to see if percutaneous drainage would be indicated. (2) Malnutrition following gastrointestinal surgery: Code(s): K91.2 - Postsurgical malabsorption, not elsewhere classified Status: Acute Assessment and Plan: Continue Nepro per G-tube for now while awaiting speech eval. If he passes his swallow, then resume his oral diet per speech recommendations. (3) Acute kidney injury superimposed on stage 3b chronic kidney disease: Code(s): N17.9 - Acute kidney failure, unspecified; N18.32 - Chronic kidney disease, stage 3b Status: Acute Assessment and Plan: Seems to be slowly improving. Making good urine and responding well to diuresis. Potassium 3.3 this am and replaced with KCL via G-tube. Nephrology following. (4) MRSA (methicillin resistant staph aureus) culture positive: Code(s): Z22.322 - Carrier or suspected carrier of Methicillin resistant Staphylococcus aureus Status: Acute Assessment and Plan: Cultures were drawn on 05/20/2024 and growing MRSA. Repeat blood cultures on 05/22 with NGTD. Continue broad-spectrum antibiotics. Nasal swab on 05/18/2024 also positive PCR for MRSA, mupirocin ointment ordered for 5 day treatment. Plan I have discussed the patient's case and plan of care with Dr. Aguiar. Subjective Subjective Date/Time Seen: 05/24/24 10:31 Patient reports: flatus and bowel movement Interval history: 04/22/2024 -exploratory laparotomy with repair of antral gastric ulcer with omental Clarence patch No new complaints today. No abdominal pain or nausea. He feels thirsty and has some appetite. Speech is doing a bedside swallow this morning. His only pain is in his right wrist. X-ray yesterday showed no acute fracture but likely chronic malalignment at the wrist, severe osteoarthritis, and multiple sub articular other lucencies that are likely degenerative subchondral cysts. He is still tolerating his tube feeding. White blood cell count up slightly to 18,000. No fevers. Exam Const: General: comfortable and no acute distress Orientation/consciousness: patient oriented x3 GI: Inspection: Abdominal wall edema bilateral, non-distended and incision (Healing well, no erythema) GI Palp: Yes Soft to palpation, No Tenderness to palpation present (GI), No Guarding due to palpation present (GI) and No Rebound tenderness present Auscultation: normal bowel sounds Other: G-tube site clean with G-tube in place and clamped Gauze dressing in place in the right upper quadrant and left upper quadrant from previous ELSA drains, gauze dressing dry and intact. Extrem: General: no calf tenderness bilaterally Other: 2+ pitting lower extremity edema. Left lower extremity is warm. Objective Data Vital Signs Vital Signs: Vital Signs - 24 hr 05/23/24 14:00 05/23/24 15:03 05/23/24 20:35 Temperature 98.7 F 97.7 F Pulse Rate 92 94 Respiratory Rate 16 16 Blood Pressure 174/74 H 165/65 H Pulse Oximetry 98 96 Oxygen Delivery Room Air 05/23/24 21:20 05/24/24 00:15 05/24/24 05:10 Temperature 98.4 F 99.1 F Pulse Rate 100 93 Respiratory Rate 25 H 24 H Blood Pressure 151/67 H 156/54 H Pulse Oximetry 96 96 Oxygen Delivery Room Air 05/24/24 09:30 Temperature Pulse Rate Respiratory Rate Blood Pressure Pulse Oximetry 96 Oxygen Delivery Room Air Intake/Output Intake/Output: Intake & Output 05/21/24 05/22/24 05/23/24 05/24/24 23:59 23:59 23:59 23:59 Intake Total 4230 2210 1620 690 Output Total 2150 4000 5350 2450 Balance 6341 -3165 -3752 -1271 Meds/Results Medications: Active Medications Generic Name Dose Route Start Last Admin Trade Name Freq PRN Reason Stop Dose Admin Acetaminophen 650 mg 04/26/24 22:19 04/26/24 22:57 Acetaminophen 650 Mg Suppository RECTAL 650 mg Q6H PRN Administration Mild Pain (1-3) or Fever Acetaminophen 650 mg 05/05/24 10:27 05/20/24 05:31 Acetaminophen Elixir 325 Mg/10.15 Ml Udc PO 650 mg Q6H PRN Administration Mild Pain (1-3) or Fever Alteplase, Recombinant 2 mg 05/22/24 21:26 05/22/24 21:57 Alteplase 2 Mg Vial (Cathflo) IV PUSH 2 mg ONCE PRN Administration Line Occlusion Artificial Tears 1 drop 04/27/24 08:37 05/23/24 09:35 Artificial Tears Ophth Soln 15 Ml Bottle EACH EYE 1 drop QID PRN Administration Dry Eye(s) Atorvastatin Calcium 20 mg 04/30/24 09:00 Atorvastatin 20 Mg Tablet BY MOUTH DAILY [facility] Benzocaine 1 lozenge 05/15/24 15:35 05/21/24 12:14 Benzocaine/Menthol (*Bkc) 18 Ea Lozenge PO 1 lozenge PRN PRN Administration Sore Throat Calcium Carbonate 500 mg 05/19/24 08:00 05/24/24 09:34 Calcium/Vitamin D 500 Mg/5 Mcg (200 I.U.) Tablet PO 500 mg DAILY@0800 [facility] Administration Clonidine HCl 1 patch 05/01/24 09:00 05/22/24 09:26 Clonidine 0.1 Mg/24 Hr Patch TRANSDERM 1 patch WEEKLY [facility] Administration Dextrose 12.5 gm 05/23/24 21:48 Dextrose 50% 25 Gm/50 Ml Syringe IV PUSH PRN PRN Hypoglycemia Protocol Dronabinol 2.5 mg 05/17/24 16:30 05/23/24 16:51 Dronabinol (*Crx) 2.5 Mg Capsule PO Not Given DAILY@1630 [facility] Enoxaparin Sodium 120 mg 05/09/24 06:00 05/17/24 05:05 Enoxaparin 120 Mg/0.8 Ml Syringe SUB-Q 120 mg Q24H [facility] Administration Epoetin Olu-epbx 10,000 units 05/14/24 11:05 05/24/24 09:32 Epoetin Olu-Epbx 10,000 Units/Ml Vial SUB-Q 10,000 units TUTHSA@09 [facility] Administration Glucagon 1 mg 05/23/24 21:48 Glucagon For Inj 1 Mg Vial IM PRN PRN Hypoglycemia Protocol Glucose 15 gm 05/23/24 21:48 Glucose Oral Gel 15 Gm Of Glucse In 37.5 Gm Tube PO PRN PRN Hypoglycemia Protocol Guaifenesin/Dextromethorphan 10 ml 05/15/24 10:07 05/22/24 01:23 Guaifenesin/Dextromethorphan 10 Ml Udc PO 10 ml Q4H PRN Administration Cough Hydralazine HCl 10 mg 04/25/24 08:00 05/24/24 04:56 Hydralazine Hcl 20 Mg/Ml Vial IV PUSH 10 mg Q4H PRN Administration Blood Pressure - High Cefepime HCl 2 gm in 50 mls @ 100 mls/hr 05/18/24 09:00 05/23/24 20:25 Maxipime 2 Gm/Ns 50 Ml IVPB Infused Q12HR [facility] Infusion Metronidazole 500 mg in 100 mls @ 100 mls/hr 05/18/24 09:00 05/24/24 01:04 Flagyl 500 Mg/Iso Soln 100 Ml IVPB Infused Q8H [facility] Infusion Micafungin Sodium 100 mg/ 100 mls @ 100 mls/hr 05/18/24 09:00 05/23/24 12:02 Sodium Chloride IVPB Infused DAILY [facility] In[facility] Vancomycin HCl 1,250 mg in 250 mls @ 166.667 mls/hr 05/22/24 23:00 05/24/24 00:03 Vancomycin 1,250 Mg/Ns 250 Ml IVPB Infused Q24H [facility] Infusion Ipratropium Crawford 0.5 mg 05/04/24 09:32 05/17/24 10:11 Ipratropium Br 0.02% Inh Soln 0.5 Mg/2.5 Ml Vial INHALATION 0.5 mg Q6HRT PRN Administration Shortness Of Breath Levalbuterol HCl 0.63 mg 05/04/24 09:32 05/17/24 10:11 Levalbuterol Neb 1.25 Mg/3 Ml INHALATION 0.63 mg Q6HRT PRN Administration Shortness Of Breath Lidocaine 1 patch 05/18/24 09:00 05/24/24 09:30 Lidocaine 5% Patch TRANSDERM 1 patch DAILY [facility] Administration Lisinopril 40 mg 05/20/24 15:05 05/24/24 09:34 Lisinopril 20 Mg Tablet BY MOUTH 40 mg DAILY [facility] Administration Lorazepam 0.5 mg 05/16/24 13:48 05/22/24 09:54 Lorazepam (*Crx) 0.5 Mg Tablet PO 0.5 mg Q6H PRN Administration Anxiety Miscellaneous Information 1 each 05/24/24 00:01 Hydralazine Needs To Be Renewed Or It Will Automatically Discontinue. XX 06/23/24 00:00 CLARIFY [facility] Mupirocin 1 applic 05/23/24 21:00 05/24/24 09:35 Mupirocin 2% Oint 22 Gm Tube EACH NARE 05/28/24 09:01 1 applic Q12HR [facility] Administration Ondansetron HCl 4 mg 05/13/24 11:22 05/21/24 05:44 Ondansetron Inj 4 Mg/2 Ml Vial IV PUSH 4 mg Q6H PRN Administration Nausea And Vomiting Pantoprazole Sodium 40 mg 05/23/24 09:00 05/24/24 09:35 Pantoprazole 40 Mg Tablet PO Not Given QAM [facility] Sodium Chloride 10 ml 05/04/24 14:15 Central Line Flush IV PUSH PRN PRN with TPN bag changes Sodium Chloride 20 ml 05/04/24 14:15 05/24/24 03:44 Central Line Flush IV PUSH 20 ml PRN PRN Administration after blood draws Radiology Results: ITS Impressions Chest/Abdomen/Pelvis CTA 04/22/24 18:10 IMPRESSION: Perforated viscus with a large amount of free air and fluid, with mural thickening in the distal stomach and multiple punctate foci of extraluminal air in this area for which site of perforation is suspected. Renal Ultrasound 04/24/24 11:58 IMPRESSION: Simple cyst in the left kidney upper pole. Other appearances are unremarkable. Lower Extremity CTA 05/02/24 16:36 IMPRESSION: 1. Scattered atherosclerotic plaque in the arteries of the left lower limb as detailed above without a discrete hemodynamic significant stenosis. Runoff below the ankle in the left posterior tibial artery this supplies the foot. Atretic distal peroneal and anterior tibial arteries with intraluminal contrast becoming indiscernible at the level of the ankle and with no appreciable contrast in the dorsalis pedis artery. Upper GI Series 05/09/24 09:31 IMPRESSION: 1. Ulcer of the gastric antrum with contained extraluminal contrast similar to 04/28/2024. The extraluminal contrast distribution is worse than typically seen after Clarence patch repair. Abdomen CT 05/09/24 15:27 IMPRESSION: Redemonstration of a tract extending from the posterior superior margin of the antrum of the stomach only partially filled with oral contrast, perhaps demonstrating early healing. Abdomen/Pelvis CT 05/17/24 09:03 Impression: Persistent wall thickening of the gastric antrum/duodenum with surrounding haziness, compatible postoperative change. There is persistent irregular tract with small amount of fluid and external air extending from the gastric antrum superiorly/anteriorly, which could reflect abscess or persistent contained perforation. No extraluminal contrast seen, and no oral contrast seen within this collection. Intramuscular hematoma of the right iliopsoas and psoas major muscles, with additional irregular hematoma extending to the posterior right retroperitoneum. Bilateral fat-containing inguinal hernias. Small bilateral pleural effusions. Chest/Abdomen/Pelvis CT 05/22/24 14:37 IMPRESSION: Nodular opacities in the right upper lobe and right middle lobe, likely representing small infectious/inflammatory foci. Segmental bibasilar atelectasis/consolidation. Small bilateral simple pleural effusions. Cardiomegaly with trace pericardial fluid. Peritoneal gas anterior to the stomach secondary to antral perforation, with possible small adjacent abscess or fistulous tract. Nonfluid density peritoneal and psoas collections, may represent complex ascites from bowel content, blood, or phlegmon, or combination thereof. Significant body wall edema. Hand X-Ray 05/23/24 13:08 IMPRESSION: 1. No acute fracture. 2. Likely chronic malalignment at the wrist and carpus including 1 cm ulnar minus variance and disruption of the proximal carpal row which is most likely sequela of old trauma. 3. 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 4. Multiple subarticular lucencies at the wrist and carpus most likely degenerative subchondral cyst although differential includes chronic erosion such as in the setting of gout. Chest X-Ray 05/23/24 21:33 IMPRESSION: Left basilar atelectasis versus pneumonia. Cardiomegaly with congestive kristian and interstitial thickening which may indicate cardiac decompensation and pulmonary edema. Clinical correlation advised. Pneumonitis is not excluded. Labs Labs: Laboratory Results - last 24 hr 05/23/24 05/23/24 05/24/24 16:41 21:15 03:51 WBC 18.4 H RBC 2.79 L Hgb 8.2 L Hct 26.3 L MCV 94.3 MCH 29.4 MCHC 31.2 L RDW 16.7 H Plt Count 220 MPV 11.9 H Immature Gran % (Auto) Not Reportable Neut % (Auto) Not Reportable Lymph % (Auto) Not Reportable [place] % (Auto) Not Reportable Eos % (Auto) Not Reportable Baso % (Auto) Not Reportable Lymph # (Auto) Not Reportable [place] # (Auto) Not Reportable Eos # (Auto) Not Reportable Baso # (Auto) Not Reportable Abs Immat Gran (auto) Not Reportable Absolute Neuts (auto) Not Reportable Absolute Nucleated RBC Not Reportable Total Counted 100 Neutrophils % (Manual) 85 H Band Neutrophils % 4 Lymphocytes % (Manual) 6.0 L Monocytes % (Manual) 2 L Eosinophils % (Manual) 2 Basophils % (Manual) 1 Nucleated RBC % Not Reportable Abs Neuts (Manual) 16.37 H Abs Lymphs (Manual) 1.10 Abs Monocytes (Manual) 0.36 Absolute Eos (Manual) 0.36 Abs Basophils (Manual) 0.18 H Platelet Estimate Adequate Ovalocytes 1+ Stomatocytes 1+ Schistocytes None seen Puncture Site Right radial ABG pH 7.542 H* ABG pCO2 26.3 L ABG pO2 66.3 L ABG PO2/FiO2 Ratio 3.16 ABG HCO3 22.1 ABG O2 Saturation 95.5 ABG O2 Content 13.5 L ABG Base Excess 0.4 A-a Gradient 51.9 Oxyhemoglobin 94.7 Total Hemoglobin 10.1 L O2 Delivery Device Room air O2 Liters/Min Not Reportable FiO2 21 Sodium 137 Potassium 3.3 L Chloride 107 Carbon Dioxide 26 Anion Gap 4 BUN 47 H Creatinine 1.57 H Estim Creat Clear Calc 54 Estimated GFR 43 L Glucose 109 POC Capillary Glucose 107 H Calcium 8.0 L Total Bilirubin 0.8 AST 38 ALT 16 Alkaline Phosphatase 95 NT-Pro-B Natriuret Pep 2450 H Total Protein 5.0 L Albumin 2.4 L
[2024-05-24] MEDS: CEFEPIME 2 GM/NS 50 ML 2 GM/50 ML BAG IVPB ×2 (10:39→20:04)
--- NOTE | 2024-05-24 10:48 | PCSTNOTE ---
Please refer to the Bedside Swallow Evaluation in the EMR. Please note, silent aspiration cannot be ruled out at bedside. Pt was seen today for a bedside swallow evaluation (vs MBS as pt refused yesterday then refused bedside eval yesterday); pt was positioned upright in the bed. He immediately asked to be declined back. After ST provided education as to why he had to be positioned completely upright for eating and drinking (aspiration risk), he agreed. Pt was presented with 3 ml thin liquid via a spoon, 4-5 ml thin liquid via a spoon, 1/2 tsp and full tsp pudding via a spoon, a small piece of cracker (he initially refused then agreed), and thin liquids in uncontrolled amounts via a cup and a straw. The oral stages were essentially WFL as no leakage, residue, or pocketing was noted; the pharyngeal stage appeared WFL; the swallow reflex appeared timely with adequate laryngeal elevation and no overt s/s of aspiration except when he took thin liquids via a straw. The pt then exhibited coughing after the swallow. Impression: functional swallow for solids and sips of thin liquid; appears pt may exhibit reduced laryngeal elevation and closure for large amounts of thin liquids. (pt is refusing MBS which would definitively determine impairments) Recommendations: Level 6 soft and bite-size diet with thin liquids via small sips and bites; No straws; 1:1 supervision during meals;pt must be positioned completely upright 90 degrees for all oral intake and med pass if pt refuses, he should not be given oral intake; pt continues with PEG tube feedings as well. ST will trial dysphagia therapy to target laryngeal elevation and closure. Thank you for this referral.
--- NOTE | 2024-05-24 11:15 | P.PNNP_ITS ---
Progress Note: A&P Assessment and Plan (1) Acute kidney injury: Code(s): N17.9 - Acute kidney failure, unspecified Status: Acute Assessment and Plan: * better by recent labs * had improved to baseline (1.5mg/dl) on 04/30 * then georgette to the low 4ish range * now improving again * suspect initial insult to be of multifactorial etiology: * NSAID use * hypotension/hemodynmic instability/shock * sepsis/infection * third spacing * evaluation to date: * CT shows normal kidneys * renal u/s with simple cyst x 1 o/w unremarkable. * urine electrolytes are prerenal * CPK mildly elevated (but not enough to affect kidneys) * urine eosinophils negative * mild proteinuria * another acute insult noted by recent labs (since 05/02): * possible due to pre-renal factors, infection (UTI +/- pneumonia versus gastric leak) * recent imaging noted - no evidence of gastric leak * repeat urine studies (on 05/08) suggestive of UTI and prerenal azotemia * despite prerenal urine electrolytes, he has evidence of volume overload again * suspect related to 3rd spacing and hypoalbuminemia * recent echocardiogram shows good LV function and no pulmonary hypertension * good diuresis/UOP with IV albumin and IV lasix previously... * restarted IV albumin + IV bumex x 6 doses (to complete today) * follow trend of urine output and I/Os * consider IV versus oral diuretics PRN * follow trend of repeat labs and UOP (2) Stage 3b chronic kidney disease: Code(s): N18.32 - Chronic kidney disease, stage 3b Status: Chronic Assessment and Plan: * creatinine ~ 1.5mg/dl in November 2023 * suspect secondary to hypertension, peripheral vascular disease, and possibly chronic NSAID use as well as age-related change (3) Bacteremia: Code(s): R78.81 - Bacteremia Status: Acute Assessment and Plan: * blood cultures with MRSA * continue IV antibiotics * follow repeat blood cultures * source? (4) Perforated gastric ulcer: Onset Date: 04/2024 Qualifiers: Gastric ulcer chronicity: acute Qualified Code(s): K25.1 - Acute gastric ulcer with perforation Code(s): K25.5 - Chronic or unspecified gastric ulcer with perforation Status: Acute Assessment and Plan: * suspect secondary to NSAID use * s/p exploratory laparotomy and repair of antral gastric ulcer with omental Clarence patch and placement of open gastrostomy tube (on 04/22) * TPN discontinued * bolus G-tube feedings with meals; continue oral feeding * General Surgery following (5) Hematoma: Code(s): T14.8XXA - Other injury of unspecified body region, initial encounter Status: Acute Assessment and Plan: * as noted by CT abdomen pelvis on 05/17/2024 * likely a contributing component to anemia * Lovenox on hold (6) Anemia: Code(s): D64.9 - Anemia, unspecified Status: Acute Assessment and Plan: * noted acute drop (on 05/10, 05/11, and 05/12) requiring blood transfusion * due to RIC, CKD, and acute illness along with CT scan findings on 05/17: * Intramuscular hematoma of the right iliopsoas and psoas major muscles, with additional irregular hematoma extending to the posterior right retroperitoneum * anemia studies also note iron deficiency * PRBC transfusion per protocol * on Epogen 3x/week (7) PAD (peripheral artery disease): Code(s): I73.9 - Peripheral vascular disease, unspecified Status: Acute Assessment and Plan: * CTA of left lower extremity noted * suspect acute on chronic issue * was on anticoagulation but on hold due to #5 (8) Malnutrition following gastrointestinal surgery: Code(s): K91.2 - Postsurgical malabsorption, not elsewhere classified Status: Chronic Assessment and Plan: * off TPN * tube feeds ongoing with boluses * attempting to transition to oral intake (but poor appetite noted) * on appetite stimulant (9) HTN (hypertension): Code(s): I10 - Essential (primary) hypertension Status: Acute Assessment and Plan: * reasonable control * follow trend of hemodynamics (10) Generalized weakness: Code(s): R53.1 - Weakness Status: Acute Assessment and Plan: * multifactorial * PT/OT as tolerated Not much else to add -- will continue to follow intermittently. L Subjective Date/time seen: 05/24/24 11:15 Interval history: Follow-up for acute kidney injury/acute renal failure on chronic kidney disease. Good diuresis with IV albumin + IV lasix in the last few days with relative stability in renal function/creatinine; fluctuating mental status noted recently and been bed bound for the last few days as well (not working with PT/OT); family at bedside and we discussed the situation. Exam 2 Narrative: General: elderly but WD/WN male in NAD Heart: normal S1 and S2; no rub Lungs: clear anteriorly; decreased at bases Abdomen: soft, nontender; some bowel sounds; +G-tube Extremities: no cyanosis or clubbing; 1+ edema Skin: warm and dry Objective Data Vital Signs Vital Signs: Vital Signs Temp Pulse Resp BP Pulse Ox O2 Del Method 05/24/24 09:30 96 Room Air 05/24/24 05:10 99.1 F 93 24 H 156/54 H 96 05/24/24 00:15 Room Air 05/23/24 21:20 98.4 F 100 25 H 151/67 H 96 05/23/24 20:35 Room Air 05/23/24 15:03 97.7 F 94 16 165/65 H 96 05/23/24 14:00 98.7 F 92 16 174/74 H 98 Intake/Output Intake/Output: Intake & Output 05/21/24 05/22/24 05/23/24 05/24/24 23:59 23:59 23:59 23:59 Intake Total 4230 2210 1620 690 Output Total 2150 4000 5350 2450 Balance 9417 -4814 -9749 -1863 Meds/Results Medications: Active Medications Generic Name Dose Route Start Last Admin Trade Name Freq PRN Reason Stop Dose Admin Acetaminophen 650 mg 04/26/24 22:19 04/26/24 22:57 Acetaminophen 650 Mg Suppository RECTAL 650 mg Q6H PRN Administration Mild Pain (1-3) or Fever Acetaminophen 650 mg 05/05/24 10:27 05/20/24 05:31 Acetaminophen Elixir 325 Mg/10.15 Ml Udc PO 650 mg Q6H PRN Administration Mild Pain (1-3) or Fever Alteplase, Recombinant 2 mg 05/22/24 21:26 05/22/24 21:57 Alteplase 2 Mg Vial (Cathflo) IV PUSH 2 mg ONCE PRN Administration Line Occlusion Artificial Tears 1 drop 04/27/24 08:37 05/23/24 09:35 Artificial Tears Ophth Soln 15 Ml Bottle EACH EYE 1 drop QID PRN Administration Dry Eye(s) Atorvastatin Calcium 20 mg 04/30/24 09:00 Atorvastatin 20 Mg Tablet BY MOUTH DAILY ROSY Benzocaine 1 lozenge 05/15/24 15:35 05/21/24 12:14 Benzocaine/Menthol (*Bkc) 18 Ea Lozenge PO 1 lozenge PRN PRN Administration Sore Throat Calcium Carbonate 500 mg 05/19/24 08:00 05/24/24 09:34 Calcium/Vitamin D 500 Mg/5 Mcg (200 I.U.) Tablet PO 500 mg DAILY@0800 [facility] Administration Clonidine HCl 1 patch 05/01/24 09:00 05/22/24 09:26 Clonidine 0.1 Mg/24 Hr Patch TRANSDERM 1 patch WEEKLY [facility] Administration Dextrose 12.5 gm 05/23/24 21:48 Dextrose 50% 25 Gm/50 Ml Syringe IV PUSH PRN PRN Hypoglycemia Protocol Dronabinol 2.5 mg 05/17/24 16:30 05/23/24 16:51 Dronabinol (*Crx) 2.5 Mg Capsule PO Not Given DAILY@1630 [facility] Enoxaparin Sodium 120 mg 05/09/24 06:00 05/17/24 05:05 Enoxaparin 120 Mg/0.8 Ml Syringe SUB-Q 120 mg Q24H ROSY Administration Epoetin Olu-epbx 10,000 units 05/14/24 11:05 05/24/24 09:32 Epoetin Olu-Epbx 10,000 Units/Ml Vial SUB-Q 10,000 units TUTHSA@09 [facility] Administration Glucagon 1 mg 05/23/24 21:48 Glucagon For Inj 1 Mg Vial IM PRN PRN Hypoglycemia Protocol Glucose 15 gm 05/23/24 21:48 Glucose Oral Gel 15 Gm Of Glucse In 37.5 Gm Tube PO PRN PRN Hypoglycemia Protocol Guaifenesin/Dextromethorphan 10 ml 05/15/24 10:07 05/22/24 01:23 Guaifenesin/Dextromethorphan 10 Ml Udc PO 10 ml Q4H PRN Administration Cough Hydralazine HCl 10 mg 04/25/24 08:00 05/24/24 04:56 Hydralazine Hcl 20 Mg/Ml Vial IV PUSH 10 mg Q4H PRN Administration Blood Pressure - High Cefepime HCl 2 gm in 50 mls @ 100 mls/hr 05/18/24 09:00 05/24/24 10:39 Maxipime 2 Gm/Ns 50 Ml IVPB 100 mls/hr Q12HR ROSY Administration Metronidazole 500 mg in 100 mls @ 100 mls/hr 05/18/24 09:00 05/24/24 11:10 Flagyl 500 Mg/Iso Soln 100 Ml IVPB 100 mls/hr Q8H ROSY Administration Micafungin Sodium 100 mg/ 100 mls @ 100 mls/hr 05/18/24 09:00 05/23/24 12:02 Sodium Chloride IVPB Infused DAILY ROSY Infusion Vancomycin HCl 1,250 mg in 250 mls @ 166.667 mls/hr 05/22/24 23:00 05/24/24 00:03 Vancomycin 1,250 Mg/Ns 250 Ml IVPB Infused Q24H ROSY Infusion Ipratropium Berry 0.5 mg 05/04/24 09:32 05/17/24 10:11 Ipratropium Br 0.02% Inh Soln 0.5 Mg/2.5 Ml Vial INHALATION 0.5 mg Q6HRT PRN Administration Shortness Of Breath Levalbuterol HCl 0.63 mg 05/04/24 09:32 05/17/24 10:11 Levalbuterol Neb 1.25 Mg/3 Ml INHALATION 0.63 mg Q6HRT PRN Administration Shortness Of Breath Lidocaine 1 patch 05/18/24 09:00 05/24/24 09:30 Lidocaine 5% Patch TRANSDERM 1 patch DAILY ROSY Administration Lisinopril 40 mg 05/20/24 15:05 05/24/24 09:34 Lisinopril 20 Mg Tablet BY MOUTH 40 mg DAILY ROSY Administration Lorazepam 0.5 mg 05/16/24 13:48 05/22/24 09:54 Lorazepam (*Crx) 0.5 Mg Tablet PO 0.5 mg Q6H PRN Administration Anxiety Miscellaneous Information 1 each 05/24/24 00:01 Hydralazine Needs To Be Renewed Or It Will Automatically Discontinue. XX 06/23/24 00:00 CLARIFY ROSY Mupirocin 1 applic 05/23/24 21:00 05/24/24 09:35 Mupirocin 2% Oint 22 Gm Tube EACH NARE 05/28/24 09:01 1 applic Q12HR ROSY Administration Ondansetron HCl 4 mg 05/13/24 11:22 05/21/24 05:44 Ondansetron Inj 4 Mg/2 Ml Vial IV PUSH 4 mg Q6H PRN Administration Nausea And Vomiting Pantoprazole Sodium 40 mg 05/23/24 09:00 05/24/24 09:35 Pantoprazole 40 Mg Tablet PO Not Given QAM ROSY Sodium Chloride 10 ml 05/04/24 14:15 Central Line Flush IV PUSH PRN PRN with TPN bag changes Sodium Chloride 20 ml 05/04/24 14:15 05/24/24 03:44 Central Line Flush IV PUSH 20 ml PRN PRN Administration after blood draws Radiology Results: ITS Impressions Chest/Abdomen/Pelvis CTA 04/22/24 18:10 IMPRESSION: Perforated viscus with a large amount of free air and fluid, with mural thickening in the distal stomach and multiple punctate foci of extraluminal air in this area for which site of perforation is suspected. Renal Ultrasound 04/24/24 11:58 IMPRESSION: Simple cyst in the left kidney upper pole. Other appearances are unremarkable. Lower Extremity CTA 05/02/24 16:36 IMPRESSION: 1. Scattered atherosclerotic plaque in the arteries of the left lower limb as detailed above without a discrete hemodynamic significant stenosis. Runoff below the ankle in the left posterior tibial artery this supplies the foot. Atretic distal peroneal and anterior tibial arteries with intraluminal contrast becoming indiscernible at the level of the ankle and with no appreciable contrast in the dorsalis pedis artery. Upper GI Series 05/09/24 09:31 IMPRESSION: 1. Ulcer of the gastric antrum with contained extraluminal contrast similar to 04/28/2024. The extraluminal contrast distribution is worse than typically seen after Clarence patch repair. Abdomen CT 05/09/24 15:27 IMPRESSION: Redemonstration of a tract extending from the posterior superior margin of the antrum of the stomach only partially filled with oral contrast, perhaps demonstrating early healing. Abdomen/Pelvis CT 05/17/24 09:03 Impression: Persistent wall thickening of the gastric antrum/duodenum with surrounding haziness, compatible postoperative change. There is persistent irregular tract with small amount of fluid and external air extending from the gastric antrum superiorly/anteriorly, which could reflect abscess or persistent contained perforation. No extraluminal contrast seen, and no oral contrast seen within this collection. Intramuscular hematoma of the right iliopsoas and psoas major muscles, with additional irregular hematoma extending to the posterior right retroperitoneum. Bilateral fat-containing inguinal hernias. Small bilateral pleural effusions. Chest/Abdomen/Pelvis CT 05/22/24 14:37 IMPRESSION: Nodular opacities in the right upper lobe and right middle lobe, likely representing small infectious/inflammatory foci. Segmental bibasilar atelectasis/consolidation. Small bilateral simple pleural effusions. Cardiomegaly with trace pericardial fluid. Peritoneal gas anterior to the stomach secondary to antral perforation, with possible small adjacent abscess or fistulous tract. Nonfluid density peritoneal and psoas collections, may represent complex ascites from bowel content, blood, or phlegmon, or combination thereof. Significant body wall edema. Hand X-Ray 05/23/24 13:08 IMPRESSION: 1. No acute fracture. 2. Likely chronic malalignment at the wrist and carpus including 1 cm ulnar minus variance and disruption of the proximal carpal row which is most likely sequela of old trauma. 3. 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 4. Multiple subarticular lucencies at the wrist and carpus most likely degenerative subchondral cyst although differential includes chronic erosion such as in the setting of gout. Chest X-Ray 05/23/24 21:33 IMPRESSION: Left basilar atelectasis versus pneumonia. Cardiomegaly with congestive kristian and interstitial thickening which may indicate cardiac decompensation and pulmonary edema. Clinical correlation advised. Pneumonitis is not excluded. Labs Labs: Laboratory Tests 05/24/24 03:51 05/24/24 03:51 Calcium 8.0 L Total Bilirubin 0.8 AST 38 ALT 16 Alkaline Phosphatase 95 NT-Pro-B Natriuret Pep 2450 H Total Protein 5.0 L Albumin 2.4 L Microbiology 05/18/24 09:28 Blood Blood Culture - Final Methicillin Resis Staph Aureus 05/20/24 12:47 Blood Blood Culture - Final Methicillin Resis Staph Aureus 05/20/24 10:37 Blood Blood Culture - Final Methicillin Resis Staph Aureus
[2024-05-24] MEDS: ALBUMIN HUMAN 25% 12.5 GM/50ML 50 ML IVPB (11:38)
[2024-05-24] MEDS: BUMETANIDE INJ 1 MG/4 ML VIAL 1.5 MG IV PUSH (11:39)
--- NOTE | 2024-05-24 11:48 | PCNFU ---
Nutrition Follow-Up Complete: Inadequate oral intake related to altered GI function as evidenced by need for enteral nutrition. Goal: Meet estimated nutrition needs Patient is progressing towards goal. We will continue current goal. Pt current nutrition is Nepro QID tube feeding with Soft and Bite Sized, Level 6 diet with Ensure Enlive TID. Last recorded weight is 138 kg, up from 123 kcal on admit. Bowel Motility: Last reported BM 05/22 Labs Reviewed: Cr 1.57, BUN 47, K 3.3, Alb 2.4, Hct 26.3, Hgb 8.2 Meds Noted: Lipitor, Protonix, Marinol. Skin: WNL Additional Notes: Patient had bedside swallow today recommending Soft and Bite Sized, Level 6. Diet supplements of Ensure Enlive added TID for additional 350 kcal and 20 gm protein. Tube feedings continue following meals of 240 ml Nepro QID. Tube feedings providing an additional 1728 kcal/78 gm protein/698 ml water. Flush 100 ml q 4 hours. Tube feedings meeting 80% kcal needs at 25 kcal/kg and 82% protein needs at 0.8-1.0 gm/kg. Agree with diet orders at this time. Monitoring tube feeding tolerance, GI function, plan of care, weights, labs, orders Follow up Thursday/Thursday
[2024-05-24 11:55] LABS: Alveolar/Arterial O2 Gradient 35.3 mmHg; Base Excess ABG 3.5 mEq/l (+/-2.0); Fractional Inspired Oxygen 21 %; HCO3 ABG 26.1 mEq/l (22.0-26.0); Oxygen Content ABG 12.7 %vol (16.0-22.0); Oxygen Saturation ABG 96.5 % (95.0-100.0); Oxyhemoglobin 95.2 % THb (90.0-100.0); PCO2 ABG 32.3 mmHg (35.0-45.0); PO2 ABG 75.8 mmHg (80.0-100.0); PO2 FiO2 Ratio Arterial Blood 3.61 %; Total Hemoglobin 9.4 g/dL (12.0-18.0)
[2024-05-24 11:56] LABS: Device ROOM AIR; Modified Allen's Test Pass; Site Drawn RIGHT RADIAL; pH ABG 7.526 (7.350-7.450)
[2024-05-24] MEDS: MICAFUNGIN SODIUM 100 MG in SODIUM CHLORIDE 0.9% IV 100 ML IVPB (12:41)
--- NOTE | 2024-05-24 13:55 | P.PNIM_ITS ---
Progress Note: A&P Assessment and Plan (1) Sepsis: Code(s): A41.9 - Sepsis, unspecified organism Status: Resolved Assessment and Plan: Meets SIRS criteria: Tachycardia, Febrile, Leukocytosis Blood culture positive x2 from 05/18 repeat blood culture 05/22 and 05/24 still pending - Continue IV Vancomycin, consult pharmacy to dose, Cefepime 2 gram IV q12H, Micafungin and Flagyl - Monitor Discuss EMPERATRIZ with patient's family and they wanted to discuss with cardiology first (2) MRSA (methicillin resistant staph aureus) culture positive: Code(s): Z22.322 - Carrier or suspected carrier of Methicillin resistant Staphylococcus aureus Status: Acute Assessment and Plan: see above care (3) Bacteremia: Code(s): R78.81 - Bacteremia Status: Acute (4) Perforated abdominal viscus: Code(s): R19.8 - Other specified symptoms and signs involving the digestive system and abdomen Status: Acute Assessment and Plan: Septic shock from peritonitis with perforated gastric ulcer s/p laparotomy with repair repeat CT chest/AP nodular opacities in the right upper lobe and right middle lobe, peritoneal gas ant to stomach with possible small adjacent abscess or fistulous tract Surgery evaluated and noted not abscess is persistent finding now big enough for drainage COntinue Peg Tube feeding for now. Gen surgery following (5) Pneumonia: Code(s): J18.9 - Pneumonia, unspecified organism Status: Acute Assessment and Plan: * Nodular opacities in the right upper lobe and right middle lobe, likely representing small infectious/inflammatory foci. * Afebrile * Currently on Cefepime, Flagyl, and Vanc * Continue Abx * WBC downtrending (6) Malnutrition following gastrointestinal surgery: Code(s): K91.2 - Postsurgical malabsorption, not elsewhere classified Status: Acute Assessment and Plan: * Passed swallow study. * Patient advanced to soft diet per General surgery recommendation * Continue to encourage po intake * Bolus tube feeding via G tube * add reglan and Marinol (7) Dysphagia: Code(s): R13.10 - Dysphagia, unspecified Status: Acute Assessment and Plan: * See plan above * NPO * Repeat swallow study ordered * continue tube feeding (8) Right wrist pain: Code(s): M25.531 - Pain in right wrist Status: Acute Assessment and Plan: * Patient started c/o of right wrist pain on 05/23 * Likely related to repeated blood culture attempts * XR hand RT 2V: No acute fracture. 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 Multiple subarticular lucencies at the wrist and carpus * Physical exam benign (9) Acute kidney injury superimposed on stage 3b chronic kidney disease: Code(s): N17.9 - Acute kidney failure, unspecified; N18.32 - Chronic kidney disease, stage 3b Status: Acute Assessment and Plan: * baseline creatinine most likely around 1.5 * Nephrology following * Renal ultrasound was unremarkable for any acute issues. * Restarted Lasix, holding IVF * Cr 4.03 -> 3.2 -> 2.16 -> 1.61 -> 1.73 -> 1.56-->1.57 * Continue trending (10) Hematoma: Code(s): T14.8XXA - Other injury of unspecified body region, initial encounter Status: Acute Assessment and Plan: * CT abdomen pelvis on 05/17/2024 shows: Intramuscular hematoma of the right iliopsoas and psoas major muscles, with additional irregular hematoma extending to the posterior right retroperitoneum. * Spoke with surgery likely noninfective * Lidocaine patch * Lovenox on hold, no recent found for therapeutic Lovenox, when patient was placed back on Lovenox likely benefit from the 40 mg (11) Pleural effusion: Code(s): J90 - Pleural effusion, not elsewhere classified Status: Acute Assessment and Plan: * Seen on CT * Chest x-ray dated compare * Likely due to 3rd spacing * Stable (12) Anemia: Code(s): D64.9 - Anemia, unspecified Status: Acute Assessment and Plan: Iron deficiency anemia on acute loss Stable * Trend CBC. * transfuse if hgb <7.0, or symptomatic * Iron replacement (13) HTN (hypertension): Code(s): I10 - Essential (primary) hypertension Status: Acute Assessment and Plan: Controlled * Continue Clonidine patch and Hydralazine PRN. * Trend BP (14) Generalized weakness: Code(s): R53.1 - Weakness Status: Acute Assessment and Plan: * PT/OT-maxi move use for transfer * Patient will likely need placement * No changes to current plan (15) Hypokalemia: Code(s): E87.6 - Hypokalemia Status: Acute Assessment and Plan: Improved * Trend labs * Replace as indicated (16) Hypernatremia: Code(s): E87.0 - Hyperosmolality and hypernatremia Status: Acute Assessment and Plan: Resolved Daily BMP Plan DVT prophylaxis on Sq Lovenox Subjective Date/time seen: 05/24/24 13:55 Interval history: Comfortable at bedside Review of Systems Review of Systems: 12 systems were reviewed and are negativ e except for as per HPI. All systems reviewed & are unremarkable except as noted in HPI and below ROS unobtainable: Yes unobtainable due to endotracheal tube and unobtainable due to medical condition Exam Narrative: General: Ill appearing, appears stated age. HEENT: normocephalic, atraumatic. Mucous membranes moist. EOMI, PERRLA, bilater al sclera anicteric, no conjunctival injection. Respiratory: clear to ascultation bilaterally. No rales/rhonic/wheezes. Cardiovascular: Regular rate and rhythm, normal S1-S2 upon ascultation. No mur murs, rubs, or clicks. Capillary refill less than 3 second. Abdomen: Soft, round, no pulsatile masses, nondistended and nontender. No rebound, no guarding. Bowel sounds present to all four quadrants. No high pitch or tinkling sounds. Extremities: 2 + edema to both LE. No cyanosis, clubbing present. Pulses are palpable 2/2. Active ROM to all four extremities. Neuro: Alert and orientated x 4. PERRLA. Cranial nerves 2-12 intact without focal deficit. Skin: Warm, dry, and intact, without rash, erythema, or lesion. Psych: pleasant, cooperative, normal speech, normal affect, no hallucinations, no dysarthia Skin: G-tube site clean with G-tube in place and clamped. Gauze dressing in place in the right upper quadrant and left upper quadrant from previous ELSA drains, gauze dressing dry and intact. Const: General: comfortable, no acute distress and uncomfortable Other: Acutely ill-appearing, obese HENMT: Other: Mucous membranes are dry, head is normocephalic atraumatic, few missing teeth, bridge in the lower jaw Eyes: Other: Pupils are equal and reactive, no scleral icterus Neck: Other: No JVD, trachea midline Resp: Effort & Inspection: normal respiratory effort Auscultation: clear to auscultation bilaterally and diminished lung sounds Other: Cardio: Rate: regular rate Rhythm: regular rhythm Other: Telemetry SR 85. GI: Auscultation: normal bowel sounds Other: Gastrostomy tube in place with dry gauze dressing and skin around the G-tube w ithout erythema or drainage. Incision dry with steri strips intact, no erythema. Slightly distended. : Other: Bowman catheter in place was a small amount of turbid yellow urine Urinary Catheter: Urinary Catheter: patent and draining Skin: Other: Generally cold to touch, 2nd cap refill, fingers and toes are cyanotic Neuro: Speech: normal speech Other: Pupils are reactive, equal Extrem: General: pedal edema bilaterally 2+ Other: 2+PP bilateral feet are warm. Psych: Mental Status: mental status grossly normal Affect: normal affect Other: Unable to assess due to patient condition Objective Data Vital Signs Vital Signs: Vital Signs - 24 hr 05/23/24 14:00 05/23/24 15:03 05/23/24 20:35 Temperature 98.7 F 97.7 F Pulse Rate 92 94 Respiratory Rate 16 16 Blood Pressure 174/74 H 165/65 H Pulse Oximetry 98 96 Oxygen Delivery Room Air 05/23/24 21:20 05/24/24 00:15 05/24/24 05:10 Temperature 98.4 F 99.1 F Pulse Rate 100 93 Respiratory Rate 25 H 24 H Blood Pressure 151/67 H 156/54 H Pulse Oximetry 96 96 Oxygen Delivery Room Air 05/24/24 09:30 05/24/24 12:44 05/24/24 13:36 Temperature 98.9 F 97.6 F Pulse Rate 90 94 Respiratory Rate 20 19 Blood Pressure 145/54 H 153/64 H Pulse Oximetry 96 95 96 Oxygen Delivery Room Air Intake/Output Intake/Output: Intake & Output 05/21/24 05/22/24 05/23/24 05/24/24 23:59 23:59 23:59 23:59 Intake Total 4230 2210 1620 790 Output Total 2150 4000 5350 2450 Balance 8998 -0399 -6658 -9300 Meds/Results Medications: Active Medications Generic Name Dose Route Start Last Admin Trade Name Freq PRN Reason Stop Dose Admin Acetaminophen 650 mg 04/26/24 22:19 04/26/24 22:57 Acetaminophen 650 Mg Suppository RECTAL 650 mg Q6H PRN Administration Mild Pain (1-3) or Fever Acetaminophen 650 mg 05/05/24 10:27 05/20/24 05:31 Acetaminophen Elixir 325 Mg/10.15 Ml Udc PO 650 mg Q6H PRN Administration Mild Pain (1-3) or Fever Alteplase, Recombinant 2 mg 05/22/24 21:26 05/22/24 21:57 Alteplase 2 Mg Vial (Cathflo) IV PUSH 2 mg ONCE PRN Administration Line Occlusion Artificial Tears 1 drop 04/27/24 08:37 05/23/24 09:35 Artificial Tears Ophth Soln 15 Ml Bottle EACH EYE 1 drop QID PRN Administration Dry Eye(s) Atorvastatin Calcium 20 mg 04/30/24 09:00 Atorvastatin 20 Mg Tablet BY MOUTH DAILY ROSY Benzocaine 1 lozenge 05/15/24 15:35 05/21/24 12:14 Benzocaine/Menthol (*Bkc) 18 Ea Lozenge PO 1 lozenge PRN PRN Administration Sore Throat Calcium Carbonate 500 mg 05/19/24 08:00 05/24/24 09:34 Calcium/Vitamin D 500 Mg/5 Mcg (200 I.U.) Tablet PO 500 mg DAILY@0800 [facility] Administration Clonidine HCl 1 patch 05/01/24 09:00 05/22/24 09:26 Clonidine 0.1 Mg/24 Hr Patch TRANSDERM 1 patch WEEKLY [facility] Administration Dextrose 12.5 gm 05/23/24 21:48 Dextrose 50% 25 Gm/50 Ml Syringe IV PUSH PRN PRN Hypoglycemia Protocol Dronabinol 2.5 mg 05/17/24 16:30 05/23/24 16:51 Dronabinol (*Crx) 2.5 Mg Capsule PO Not Given DAILY@1630 [facility] Enoxaparin Sodium 120 mg 05/09/24 06:00 05/17/24 05:05 Enoxaparin 120 Mg/0.8 Ml Syringe SUB-Q 120 mg Q24H ROSY Administration Epoetin Olu-epbx 10,000 units 05/14/24 11:05 05/24/24 09:32 Epoetin Olu-Epbx 10,000 Units/Ml Vial SUB-Q 10,000 units TUTHSA@09 [facility] Administration Glucagon 1 mg 05/23/24 21:48 Glucagon For Inj 1 Mg Vial IM PRN PRN Hypoglycemia Protocol Glucose 15 gm 05/23/24 21:48 Glucose Oral Gel 15 Gm Of Glucse In 37.5 Gm Tube PO PRN PRN Hypoglycemia Protocol Guaifenesin/Dextromethorphan 10 ml 05/15/24 10:07 05/22/24 01:23 Guaifenesin/Dextromethorphan 10 Ml Udc PO 10 ml Q4H PRN Administration Cough Hydralazine HCl 10 mg 04/25/24 08:00 05/24/24 04:56 Hydralazine Hcl 20 Mg/Ml Vial IV PUSH 10 mg Q4H PRN Administration Blood Pressure - High Cefepime HCl 2 gm in 50 mls @ 100 mls/hr 05/18/24 09:00 05/24/24 10:39 Maxipime 2 Gm/Ns 50 Ml IVPB 100 mls/hr Q12HR ROSY Administration Metronidazole 500 mg in 100 mls @ 100 mls/hr 05/18/24 09:00 05/24/24 12:10 Flagyl 500 Mg/Iso Soln 100 Ml IVPB Infused Q8H ROSY Infusion Micafungin Sodium 100 mg/ 100 mls @ 100 mls/hr 05/18/24 09:00 05/24/24 12:41 Sodium Chloride IVPB 100 mls/hr DAILY ROSY Administration Vancomycin HCl 1,250 mg in 250 mls @ 166.667 mls/hr 05/22/24 23:00 05/24/24 00:03 Vancomycin 1,250 Mg/Ns 250 Ml IVPB Infused Q24H ROSY Infusion Ipratropium [place] 0.5 mg 05/04/24 09:32 05/17/24 10:11 Ipratropium Br 0.02% Inh Soln 0.5 Mg/2.5 Ml Vial INHALATION 0.5 mg Q6HRT PRN Administration Shortness Of Breath Levalbuterol HCl 0.63 mg 05/04/24 09:32 05/17/24 10:11 Levalbuterol Neb 1.25 Mg/3 Ml INHALATION 0.63 mg Q6HRT PRN Administration Shortness Of Breath Lidocaine 1 patch 05/18/24 09:00 05/24/24 09:30 Lidocaine 5% Patch TRANSDERM 1 patch DAILY ROSY Administration Lisinopril 40 mg 05/20/24 15:05 05/24/24 09:34 Lisinopril 20 Mg Tablet BY MOUTH 40 mg DAILY ROSY Administration Lorazepam 0.5 mg 05/16/24 13:48 05/22/24 09:54 Lorazepam (*Crx) 0.5 Mg Tablet PO 0.5 mg Q6H PRN Administration Anxiety Miscellaneous Information 1 each 05/24/24 00:01 Hydralazine Needs To Be Renewed Or It Will Automatically Discontinue. XX 06/23/24 00:00 CLARIFY ROSY Mupirocin 1 applic 05/23/24 21:00 05/24/24 09:35 Mupirocin 2% Oint 22 Gm Tube EACH NARE 05/28/24 09:01 1 applic Q12HR ROSY Administration Ondansetron HCl 4 mg 05/13/24 11:22 05/21/24 05:44 Ondansetron Inj 4 Mg/2 Ml Vial IV PUSH 4 mg Q6H PRN Administration Nausea And Vomiting Pantoprazole Sodium 40 mg 05/23/24 09:00 05/24/24 09:35 Pantoprazole 40 Mg Tablet PO Not Given QAM ROSY Sodium Chloride 10 ml 05/04/24 14:15 Central Line Flush IV PUSH PRN PRN with TPN bag changes Sodium Chloride 20 ml 05/04/24 14:15 05/24/24 03:44 Central Line Flush IV PUSH 20 ml PRN PRN Administration after blood draws Radiology Results: ITS Impressions Chest/Abdomen/Pelvis CTA 04/22/24 18:10 IMPRESSION: Perforated viscus with a large amount of free air and fluid, with mural thickening in the distal stomach and multiple punctate foci of extraluminal air in this area for which site of perforation is suspected. Renal Ultrasound 04/24/24 11:58 IMPRESSION: Simple cyst in the left kidney upper pole. Other appearances are unremarkable. Lower Extremity CTA 05/02/24 16:36 IMPRESSION: 1. Scattered atherosclerotic plaque in the arteries of the left lower limb as detailed above without a discrete hemodynamic significant stenosis. Runoff below the ankle in the left posterior tibial artery this supplies the foot. Atretic distal peroneal and anterior tibial arteries with intraluminal contrast becoming indiscernible at the level of the ankle and with no appreciable contrast in the dorsalis pedis artery. Upper GI Series 05/09/24 09:31 IMPRESSION: 1. Ulcer of the gastric antrum with contained extraluminal contrast similar to 04/28/2024. The extraluminal contrast distribution is worse than typically seen after [place] patch repair. Abdomen CT 05/09/24 15:27 IMPRESSION: Redemonstration of a tract extending from the posterior superior margin of the antrum of the stomach only partially filled with oral contrast, perhaps demonstrating early healing. Abdomen/Pelvis CT 05/17/24 09:03 Impression: Persistent wall thickening of the gastric antrum/duodenum with surrounding haziness, compatible postoperative change. There is persistent irregular tract with small amount of fluid and external air extending from the gastric antrum superiorly/anteriorly, which could reflect abscess or persistent contained perforation. No extraluminal contrast seen, and no oral contrast seen within this collection. Intramuscular hematoma of the right iliopsoas and psoas major muscles, with additional irregular hematoma extending to the posterior right retroperitoneum. Bilateral fat-containing inguinal hernias. Small bilateral pleural effusions. Chest/Abdomen/Pelvis CT 05/22/24 14:37 IMPRESSION: Nodular opacities in the right upper lobe and right middle lobe, likely representing small infectious/inflammatory foci. Segmental bibasilar atelectasis/consolidation. Small bilateral simple pleural effusions. Cardiomegaly with trace pericardial fluid. Peritoneal gas anterior to the stomach secondary to antral perforation, with possible small adjacent abscess or fistulous tract. Nonfluid density peritoneal and psoas collections, may represent complex ascites from bowel content, blood, or phlegmon, or combination thereof. Significant body wall edema. Hand X-Ray 05/23/24 13:08 IMPRESSION: 1. No acute fracture. 2. Likely chronic malalignment at the wrist and carpus including 1 cm ulnar minus variance and disruption of the proximal carpal row which is most likely sequela of old trauma. 3. 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 4. Multiple subarticular lucencies at the wrist and carpus most likely degenerative subchondral cyst although differential includes chronic erosion such as in the setting of gout. Chest X-Ray 05/23/24 21:33 IMPRESSION: Left basilar atelectasis versus pneumonia. Cardiomegaly with congestive kristian and interstitial thickening which may indicate cardiac decompensation and pulmonary edema. Clinical correlation advised. Pneumonitis is not excluded. Labs Labs: Laboratory Results - last 24 hr 05/23/24 05/23/24 05/24/24 16:41 21:15 03:51 WBC 18.4 H RBC 2.79 L Hgb 8.2 L Hct 26.3 L MCV 94.3 MCH 29.4 MCHC 31.2 L RDW 16.7 H Plt Count 220 MPV 11.9 H Immature Gran % (Auto) Not Reportable Neut % (Auto) Not Reportable Lymph % (Auto) Not Reportable [place] % (Auto) Not Reportable Eos % (Auto) Not Reportable Baso % (Auto) Not Reportable Lymph # (Auto) Not Reportable [place] # (Auto) Not Reportable Eos # (Auto) Not Reportable Baso # (Auto) Not Reportable Abs Immat Gran (auto) Not Reportable Absolute Neuts (auto) Not Reportable Absolute Nucleated RBC Not Reportable Total Counted 100 Neutrophils % (Manual) 85 H Band Neutrophils % 4 Lymphocytes % (Manual) 6.0 L Monocytes % (Manual) 2 L Eosinophils % (Manual) 2 Basophils % (Manual) 1 Nucleated RBC % Not Reportable Abs Neuts (Manual) 16.37 H Abs Lymphs (Manual) 1.10 Abs Monocytes (Manual) 0.36 Absolute Eos (Manual) 0.36 Abs Basophils (Manual) 0.18 H Platelet Estimate Adequate Ovalocytes 1+ Stomatocytes 1+ Schistocytes None seen Puncture Site Right radial ABG pH 7.542 H* ABG pCO2 26.3 L ABG pO2 66.3 L ABG PO2/FiO2 Ratio 3.16 ABG HCO3 22.1 ABG O2 Saturation 95.5 ABG O2 Content 13.5 L ABG Base Excess 0.4 A-a Gradient 51.9 Oxyhemoglobin 94.7 Total Hemoglobin 10.1 L O2 Delivery Device Room air O2 Liters/Min Not Reportable FiO2 21 Sodium 137 Potassium 3.3 L Chloride 107 Carbon Dioxide 26 Anion Gap 4 BUN 47 H Creatinine 1.57 H Estim Creat Clear Calc 54 Estimated GFR 43 L Glucose 109 POC Capillary Glucose 107 H Calcium 8.0 L Total Bilirubin 0.8 AST 38 ALT 16 Alkaline Phosphatase 95 NT-Pro-B Natriuret Pep 2450 H Total Protein 5.0 L Albumin 2.4 L 05/24/24 11:50 WBC RBC Hgb Hct MCV MCH MCHC RDW Plt Count MPV Immature Gran % (Auto) Neut % (Auto) Lymph % (Auto) [place] % (Auto) Eos % (Auto) Baso % (Auto) Lymph # (Auto) [place] # (Auto) Eos # (Auto) Baso # (Auto) Abs Immat Gran (auto) Absolute Neuts (auto) Absolute Nucleated RBC Total Counted Neutrophils % (Manual) Band Neutrophils % Lymphocytes % (Manual) Monocytes % (Manual) Eosinophils % (Manual) Basophils % (Manual) Nucleated RBC % Abs Neuts (Manual) Abs Lymphs (Manual) Abs Monocytes (Manual) Absolute Eos (Manual) Abs Basophils (Manual) Platelet Estimate Ovalocytes Stomatocytes Schistocytes Puncture Site Right radial ABG pH 7.526 H* ABG pCO2 32.3 L ABG pO2 75.8 L ABG PO2/FiO2 Ratio 3.61 ABG HCO3 26.1 H ABG O2 Saturation 96.5 ABG O2 Content 12.7 L ABG Base Excess 3.5 A-a Gradient 35.3 Oxyhemoglobin 95.2 Total Hemoglobin 9.4 L O2 Delivery Device Room air O2 Liters/Min Not Reportable FiO2 21 Sodium Potassium Chloride Carbon Dioxide Anion Gap BUN Creatinine Estim Creat Clear Calc Estimated GFR Glucose POC Capillary Glucose Calcium Total Bilirubin AST ALT Alkaline Phosphatase NT-Pro-B Natriuret Pep Total Protein Albumin Quality VTE Prophylaxis VTE prophylaxis: mechanical ordered and pharmacologic ordered
[2024-05-24] MEDS: ACETAMINOPHEN ELIXIR 325 MG/10.15 ML UDC 650 MG PO (20:03)
[2024-05-25 00:08] LABS: Vancomycin Trough 21.2 ug/mL (10.0-20.0)
[2024-05-25] MEDS: metroNIDAZOLE 500 MG/ISO 100ML 500 MG/100 ML BAG 100 MG IVPB ×2 (00:14→09:16)
[2024-05-25] MEDS: CENTRAL LINE FLUSH 20 ML IV PUSH (04:29)
[2024-05-25 04:40] LABS: Basophils Absolute Auto 0.1 K/mm3 (0.0-0.1); Basophils Percent Auto 0.5 % (0.2-1.2); Eosinophils Absolute Auto 0.3 K/mm3 (0-0.3); Eosinophils Percent Auto 1.6 % (0-4.4); Hematocrit 28.1 % (42.0-52.0); Hemoglobin 8.8 g/dL (14.0-18.0); Immature Granulocyte Absolute 0.81 K/mm3 (0.00-0.031); Immature Granulocyte Percent A 5.3 % (0-0.5); Lymphocytes Absolute Auto 1.53 K/mm3 (0.9-3.2); Mean Corpuscular HGB Conc 31.3 g/dl (32-36); Mean Corpuscular Hemoglobin 29.8 pg (26-34); Mean Corpuscular Volume 95.3 fl (80-100); Mean Platelet Volume 11.7 fl (7.4-10.4); Monocytes Absolute Auto 1.1 K/mm3 (0.1-0.6); Monocytes Percent Auto 7.2 % (2.6-8.5); Neutrophils Absolute Auto 11.6 K/mm3 (1.3-6.7); Neutrophils Percent Auto 75.4 % (45.5-73.1); Platelet Count Result 222 k/mm3 (150-375); Red Blood Count 2.95 M/mm3 (4.6-6.20); Red Cell Distribution Width 16.8 % (11.5-14.5); White Blood Count 15.3 K/mm3 (4.5-10.0)
[2024-05-25 04:51] VITALS: BP 178/70; PULSE 81; RESP 20; TEMP 36.5; O2SAT 98
[2024-05-25 04:51] LABS: Alanine Aminotransferase 17 U/L (6-50); Albumin Level 2.4 g/dL (3.5-5.1); Alkaline Phosphatase 100 U/L (38-126); Anion Gap 7 mmol/L (4-12); Aspartate Amino Transferase 30 U/L (17-59); Bilirubin,Total 0.7 mg/dL (0.2-1.3); Blood Urea Nitrogen 46 mg/dL (9-20); Carbon Dioxide 26 mmol/L (22-30); Chloride 105 mmol/L (98-107); Estimated CRCL calculation 53 ml/min; Estimated Glomerular Filt Rate 44; Glucose 116 mg/dL (65-110); Potassium 3.4 mmol/L (3.4-5.0); Sodium 138 mmol/L (137-145)
[2024-05-25 04:53] LABS: NT Pro B Type Natriuretic Pept 2250 pg/mL (19.9-100)
[2024-05-25] MEDS: VANCOMYCIN 1,000 MG/NS 250 ML 1,000 MG/250 ML BAG 250 MG IVPB (05:20)
[2024-05-25] MEDS: MUPIROCIN 2% OINT 22 GM TUBE 1 APPLIC EACH NARE ×2 (08:46→20:11)
[2024-05-25] MEDS: ENOXAPARIN 40 MG/0.4 ML SYRINGE SUB-Q (08:47)
[2024-05-25] MEDS: CALCIUM/VITAMIN D 500 MG/5 MCG (200 I.U.) TABLET PO (08:47)
[2024-05-25] MEDS: lisinopriL 20 MG TABLET 40 MG BY MOUTH (08:47)
[2024-05-25] MEDS: LIDOCAINE 5% PATCH 1 PATCH TRANSDERM (08:48)
[2024-05-25] MEDS: CEFEPIME 2 GM/NS 50 ML 2 GM/50 ML BAG IVPB (09:15)
[2024-05-25] MEDS: MICAFUNGIN SODIUM 100 MG in SODIUM CHLORIDE 0.9% IV 100 ML IVPB (10:01)
--- NOTE | 2024-05-25 11:01 | P.PNIM_ITS ---
Progress Note: A&P Assessment and Plan (1) Sepsis: Code(s): A41.9 - Sepsis, unspecified organism Status: Resolved Assessment and Plan: Meets SIRS criteria: Tachycardia, Febrile, Leukocytosis Blood culture positive x2 from 05/18 repeat blood culture 05/22 and 05/24 still pending - Continue IV Vancomycin, consult pharmacy to dose, Cefepime 2 gram IV q12H, Micafungin and Flagyl - Monitor Family waiting to discuss EMPERATRIZ with natural gas trader in the meantime awaiting repeat blood cultures (2) MRSA (methicillin resistant staph aureus) culture positive: Code(s): Z22.322 - Carrier or suspected carrier of Methicillin resistant Staphylococcus aureus Status: Acute Assessment and Plan: see above care (3) Bacteremia: Code(s): R78.81 - Bacteremia Status: Acute (4) Perforated abdominal viscus: Code(s): R19.8 - Other specified symptoms and signs involving the digestive system and abdomen Status: Acute Assessment and Plan: Septic shock from peritonitis with perforated gastric ulcer s/p laparotomy with repair repeat CT chest/AP nodular opacities in the right upper lobe and right middle lobe, peritoneal gas ant to stomach with possible small adjacent abscess or fistulous tract Surgery evaluated and noted not abscess is persistent finding now big enough for drainage Continue Peg Tube feeding for now. Gen surgery following (5) Pneumonia: Code(s): J18.9 - Pneumonia, unspecified organism Status: Acute Assessment and Plan: * Nodular opacities in the right upper lobe and right middle lobe, likely representing small infectious/inflammatory foci. * Afebrile * Currently on Cefepime, Flagyl, and Vanc * Continue Abx * WBC downtrending, WBC 15.3 from 29.0 (6) Malnutrition following gastrointestinal surgery: Code(s): K91.2 - Postsurgical malabsorption, not elsewhere classified Status: Acute Assessment and Plan: * Passed swallow study. * Patient advanced to soft diet per General surgery recommendation * Continue to encourage po intake * Bolus tube feeding via G tube * add reglan and Marinol (7) Dysphagia: Code(s): R13.10 - Dysphagia, unspecified Status: Acute Assessment and Plan: * See plan above * NPO * Repeat swallow study ordered * continue tube feeding (8) Right wrist pain: Code(s): M25.531 - Pain in right wrist Status: Acute Assessment and Plan: * Patient started c/o of right wrist pain on 05/23 * Likely related to repeated blood culture attempts * XR hand RT 2V: No acute fracture. 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 Multiple subarticular lucencies at the wrist and carpus * Physical exam benign (9) Acute kidney injury superimposed on stage 3b chronic kidney disease: Code(s): N17.9 - Acute kidney failure, unspecified; N18.32 - Chronic kidney disease, stage 3b Status: Acute Assessment and Plan: * baseline creatinine most likely around 1.5 * Nephrology following * Renal ultrasound was unremarkable for any acute issues. * Restarted Lasix, holding IVF * Cr 4.03 -> 1.53 * Continue trending (10) Hematoma: Code(s): T14.8XXA - Other injury of unspecified body region, initial encounter Status: Acute Assessment and Plan: * CT abdomen pelvis on 05/17/2024 shows: Intramuscular hematoma of the right iliopsoas and psoas major muscles, with additional irregular hematoma extending to the posterior right retroperitoneum. * Spoke with surgery likely noninfective * Lidocaine patch * Lovenox on hold, no recent found for therapeutic Lovenox, when patient was placed back on Lovenox likely benefit from the 40 mg (11) Pleural effusion: Code(s): J90 - Pleural effusion, not elsewhere classified Status: Acute Assessment and Plan: * Seen on CT * Chest x-ray dated compare * Likely due to 3rd spacing * Stable (12) Anemia: Code(s): D64.9 - Anemia, unspecified Status: Acute Assessment and Plan: Iron deficiency anemia on acute loss Stable * Trend CBC. * transfuse if hgb <7.0, or symptomatic * Iron replacement (13) HTN (hypertension): Code(s): I10 - Essential (primary) hypertension Status: Acute Assessment and Plan: Controlled * Continue Clonidine patch and Hydralazine PRN. * Trend BP (14) Generalized weakness: Code(s): R53.1 - Weakness Status: Acute Assessment and Plan: * PT/OT-maxi move use for transfer * Patient will likely need placement * No changes to current plan (15) Hypokalemia: Code(s): E87.6 - Hypokalemia Status: Acute Assessment and Plan: Improved * Trend labs * Replace as indicated (16) Hypernatremia: Code(s): E87.0 - Hyperosmolality and hypernatremia Status: Acute Assessment and Plan: Resolved Daily BMP Plan DVT prophylaxis on Sq Lovenox Subjective Date/time seen: 05/25/24 11:01 Interval history: Comfortable at bedside patient more awake today but still somnolent Review of Systems Review of Systems: 12 systems were reviewed and are negativ e except for as per HPI. All systems reviewed & are unremarkable except as noted in HPI and below ROS unobtainable: Yes unobtainable due to endotracheal tube and unobtainable due to medical condition Exam Narrative: General: Ill appearing, appears stated age. HEENT: normocephalic, atraumatic. Mucous membranes moist. EOMI, PERRLA, bilateral sclera anicteric, no conjunctival injection. Respiratory: clear to ascultation bilaterally. No rales/rhonic/wheezes. Cardiovascular: Regular rate and rhythm, normal S1-S2 upon ascultation. No murmurs, rubs, or clicks. Capillary refill less than 3 second. Abdomen: Soft, round, no pulsatile masses, nondistended and nontender. No rebound, no guarding. Bowel sounds present to all four quadrants. No high pitch or tinkling sounds. Extremities: 2 + edema to both LE. No cyanosis, clubbing present. Pulses are palpable 2/2. Active ROM to all four extremities. Neuro: Alert and orientated x 4. PERRLA. Cranial nerves 2-12 intact without focal deficit. Skin: Warm, dry, and intact, without rash, erythema, or lesion. Psych: pleasant, cooperative, normal speech, normal affect, no hallucinations, no dysarthia Skin: G-tube site clean with G-tube in place and clamped. Gauze dressing in place in the right upper quadrant and left upper quadrant from previous ELSA drains, gauze dressing dry and intact. Const: General: comfortable, no acute distress and uncomfortable Other: Acutely ill-appearing, obese HENMT: Other: Mucous membranes are dry, head is normocephalic atraumatic, few missing teeth, bridge in the lower jaw Eyes: Other: Pupils are equal and reactive, no scleral icterus Neck: Other: No JVD, trachea midline Resp: Effort & Inspection: normal respiratory effort Auscultation: clear to auscultation bilaterally and diminished lung sounds Other: Cardio: Rate: regular rate Rhythm: regular rhythm Other: Telemetry SR 85. GI: Auscultation: normal bowel sounds Other: Gastrostomy tube in place with dry gauze dressing and skin around the G-tube without erythema or drainage. Incision dry with steri strips intact, no erythema. Slightly distended. : Other: Bowman catheter in place was a small amount of turbid yellow urine Urinary Catheter: Urinary Catheter: patent and draining Skin: Other: Generally cold to touch, 2nd cap refill, fingers and toes are cyanotic Neuro: Speech: normal speech Other: Pupils are reactive, equal Extrem: General: pedal edema bilaterally 2+ Other: 2+PP bilateral feet are warm. Psych: Mental Status: mental status grossly normal Affect: normal affect Other: Unable to assess due to patient condition Objective Data Vital Signs Vital Signs: Vital Signs - 24 hr 05/24/24 12:44 05/24/24 13:36 05/24/24 19:57 Temperature 98.9 F 97.6 F 99.0 F Pulse Rate 90 94 95 Respiratory Rate 20 19 18 Blood Pressure 145/54 H 153/64 H 163/53 H Pulse Oximetry 95 96 97 Oxygen Delivery 05/24/24 20:00 05/24/24 20:03 05/24/24 21:00 Temperature 100.0 F H 98.9 F Pulse Rate Respiratory Rate Blood Pressure Pulse Oximetry Oxygen Delivery Room Air 05/24/24 21:03 05/25/24 04:51 Temperature 98.9 F 97.7 F Pulse Rate 81 Respiratory Rate 20 Blood Pressure 178/70 H Pulse Oximetry 98 Oxygen Delivery Intake/Output Intake/Output: Intake & Output 05/22/24 05/23/24 05/24/24 05/25/24 23:59 23:59 23:59 23:59 Intake Total 2210 1620 1780 440 Output Total 4000 5350 2450 800 Balance -1790 -3730 -670 -360 Meds/Results Medications: Active Medications Generic Name Dose Route Start Last Admin Trade Name Freq PRN Reason Stop Dose Admin Acetaminophen 650 mg 04/26/24 22:19 04/26/24 22:57 Acetaminophen 650 Mg Suppository RECTAL 650 mg Q6H PRN Administration Mild Pain (1-3) or Fever Acetaminophen 650 mg 05/05/24 10:27 05/24/24 20:03 Acetaminophen Elixir 325 Mg/10.15 Ml Udc PO 650 mg Q6H PRN Administration Mild Pain (1-3) or Fever Alteplase, Recombinant 2 mg 05/22/24 21:26 05/22/24 21:57 Alteplase 2 Mg Vial (Cathflo) IV PUSH 2 mg ONCE PRN Administration Line Occlusion Artificial Tears 1 drop 04/27/24 08:37 05/23/24 09:35 Artificial Tears Ophth Soln 15 Ml Bottle EACH EYE 1 drop QID PRN Administration Dry Eye(s) Atorvastatin Calcium 20 mg 04/30/24 09:00 Atorvastatin 20 Mg Tablet BY MOUTH DAILY [facility] Benzocaine 1 lozenge 05/15/24 15:35 05/21/24 12:14 Benzocaine/Menthol (*Bkc) 18 Ea Lozenge PO 1 lozenge PRN PRN Administration Sore Throat Calcium Carbonate 500 mg 05/19/24 08:00 05/25/24 08:47 Calcium/Vitamin D 500 Mg/5 Mcg (200 I.U.) Tablet PO 500 mg DAILY@0800 [facility] Administration Clonidine HCl 1 patch 05/01/24 09:00 05/22/24 09:26 Clonidine 0.1 Mg/24 Hr Patch TRANSDERM 1 patch WEEKLY ROSY Administration Dextrose 12.5 gm 05/23/24 21:48 Dextrose 50% 25 Gm/50 Ml Syringe IV PUSH PRN PRN Hypoglycemia Protocol Dronabinol 2.5 mg 05/17/24 16:30 05/24/24 16:24 Dronabinol (*Crx) 2.5 Mg Capsule PO Not Given DAILY@1630 [facility] Enoxaparin Sodium 40 mg 05/25/24 09:00 05/25/24 08:47 Enoxaparin 40 Mg/0.4 Ml Syringe SUB-Q 40 mg DAILY ROSY Administration Epoetin Olu-epbx 10,000 units 05/14/24 11:05 05/24/24 09:32 Epoetin Olu-Epbx 10,000 Units/Ml Vial SUB-Q 10,000 units TUTA@09 [facility] Administration Glucagon 1 mg 05/23/24 21:48 Glucagon For Inj 1 Mg Vial IM PRN PRN Hypoglycemia Protocol Glucose 15 gm 05/23/24 21:48 Glucose Oral Gel 15 Gm Of Glucse In 37.5 Gm Tube PO PRN PRN Hypoglycemia Protocol Guaifenesin/Dextromethorphan 10 ml 05/15/24 10:07 05/22/24 01:23 Guaifenesin/Dextromethorphan 10 Ml Udc PO 10 ml Q4H PRN Administration Cough Hydralazine HCl 10 mg 04/25/24 08:00 05/24/24 20:02 Hydralazine Hcl 20 Mg/Ml Vial IV PUSH 10 mg Q4H PRN Administration Blood Pressure - High Vancomycin HCl 1,000 mg in 250 mls @ 250 mls/hr 05/25/24 06:00 05/25/24 05:20 Vancomycin 1,000 Mg/Ns 250 Ml IVPB 250 mls/hr Q24H ROSY Administration Ipratropium Ermine 0.5 mg 05/04/24 09:32 05/17/24 10:11 Ipratropium Br 0.02% Inh Soln 0.5 Mg/2.5 Ml Vial INHALATION 0.5 mg Q6HRT PRN Administration Shortness Of Breath Levalbuterol HCl 0.63 mg 05/04/24 09:32 05/17/24 10:11 Levalbuterol Neb 1.25 Mg/3 Ml INHALATION 0.63 mg Q6HRT PRN Administration Shortness Of Breath Lidocaine 1 patch 05/18/24 09:00 05/25/24 08:48 Lidocaine 5% Patch TRANSDERM 1 patch DAILY ROSY Administration Lisinopril 40 mg 05/20/24 15:05 05/25/24 08:47 Lisinopril 20 Mg Tablet BY MOUTH 40 mg DAILY ROSY Administration Lorazepam 0.5 mg 05/16/24 13:48 05/22/24 09:54 Lorazepam (*Crx) 0.5 Mg Tablet PO 0.5 mg Q6H PRN Administration Anxiety Mupirocin 1 applic 05/23/24 21:00 05/25/24 08:46 Mupirocin 2% Oint 22 Gm Tube EACH NARE 05/28/24 09:01 1 applic Q12HR ROSY Administration Ondansetron HCl 4 mg 05/13/24 11:22 05/21/24 05:44 Ondansetron Inj 4 Mg/2 Ml Vial IV PUSH 4 mg Q6H PRN Administration Nausea And Vomiting Pantoprazole Sodium 40 mg 05/23/24 09:00 05/25/24 08:49 Pantoprazole 40 Mg Tablet PO Not Given QAM ROSY Sodium Chloride 10 ml 05/04/24 14:15 Central Line Flush IV PUSH PRN PRN with TPN bag changes Sodium Chloride 20 ml 05/04/24 14:15 05/25/24 04:29 Central Line Flush IV PUSH 20 ml PRN PRN Administration after blood draws Radiology Results: ITS Impressions Chest/Abdomen/Pelvis CTA 04/22/24 18:10 IMPRESSION: Perforated viscus with a large amount of free air and fluid, with mural thickening in the distal stomach and multiple punctate foci of extraluminal air in this area for which site of perforation is suspected. Renal Ultrasound 04/24/24 11:58 IMPRESSION: Simple cyst in the left kidney upper pole. Other appearances are unremarkable. Lower Extremity CTA 05/02/24 16:36 IMPRESSION: 1. Scattered atherosclerotic plaque in the arteries of the left lower limb as detailed above without a discrete hemodynamic significant stenosis. Runoff below the ankle in the left posterior tibial artery this supplies the foot. Atretic distal peroneal and anterior tibial arteries with intraluminal contrast becoming indiscernible at the level of the ankle and with no appreciable contrast in the dorsalis pedis artery. Upper GI Series 05/09/24 09:31 IMPRESSION: 1. Ulcer of the gastric antrum with contained extraluminal contrast similar to 04/28/2024. The extraluminal contrast distribution is worse than typically seen after Clarence patch repair. Abdomen CT 05/09/24 15:27 IMPRESSION: Redemonstration of a tract extending from the posterior superior margin of the antrum of the stomach only partially filled with oral contrast, perhaps demonstrating early healing. Abdomen/Pelvis CT 05/17/24 09:03 Impression: Persistent wall thickening of the gastric antrum/duodenum with surrounding haziness, compatible postoperative change. There is persistent irregular tract with small amount of fluid and external air extending from the gastric antrum superiorly/anteriorly, which could reflect abscess or persistent contained perforation. No extraluminal contrast seen, and no oral contrast seen within this collection. Intramuscular hematoma of the right iliopsoas and psoas major muscles, with additional irregular hematoma extending to the posterior right retroperitoneum. Bilateral fat-containing inguinal hernias. Small bilateral pleural effusions. Chest/Abdomen/Pelvis CT 05/22/24 14:37 IMPRESSION: Nodular opacities in the right upper lobe and right middle lobe, likely representing small infectious/inflammatory foci. Segmental bibasilar atelectasis/consolidation. Small bilateral simple pleural effusions. Cardiomegaly with trace pericardial fluid. Peritoneal gas anterior to the stomach secondary to antral perforation, with possible small adjacent abscess or fistulous tract. Nonfluid density peritoneal and psoas collections, may represent complex ascites from bowel content, blood, or phlegmon, or combination thereof. Significant body wall edema. Hand X-Ray 05/23/24 13:08 IMPRESSION: 1. No acute fracture. 2. Likely chronic malalignment at the wrist and carpus including 1 cm ulnar minus variance and disruption of the proximal carpal row which is most likely sequela of old trauma. 3. 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 4. Multiple subarticular lucencies at the wrist and carpus most likely de generative subchondral cyst although differential includes chronic erosion such as in the setting of gout. Chest X-Ray 05/23/24 21:33 IMPRESSION: Left basilar atelectasis versus pneumonia. Cardiomegaly with congestive kristian and interstitial thickening which may indicate cardiac decompensation and pulmonary edema. Clinical correlation advised. Pneumonitis is not excluded. Labs Labs: Laboratory Results - last 24 hr 05/24/24 05/24/24 05/25/24 11:50 23:25 04:28 WBC 15.3 H RBC 2.95 L Hgb 8.8 L Hct 28.1 L MCV 95.3 MCH 29.8 MCHC 31.3 L RDW 16.8 H Plt Count 222 MPV 11.7 H Immature Gran % (Auto) 5.3 H Neut % (Auto) 75.4 H Lymph % (Auto) 10.0 L Shelby % (Auto) 7.2 Eos % (Auto) 1.6 Baso % (Auto) 0.5 Lymph # (Auto) 1.53 Shelby # (Auto) 1.1 H Eos # (Auto) 0.3 Baso # (Auto) 0.1 Abs Immat Gran (auto) 0.81 H Absolute Neuts (auto) 11.6 H Absolute Nucleated RBC 0.000 Nucleated RBC % 0.0 Puncture Site Right radial ABG pH 7.526 H* ABG pCO2 32.3 L ABG pO2 75.8 L ABG PO2/FiO2 Ratio 3.61 ABG HCO3 26.1 H ABG O2 Saturation 96.5 ABG O2 Content 12.7 L ABG Base Excess 3.5 A-a Gradient 35.3 Oxyhemoglobin 95.2 Total Hemoglobin 9.4 L O2 Delivery Device Room air O2 Liters/Min Not Reportable FiO2 21 Sodium 138 Potassium 3.4 Chloride 105 Carbon Dioxide 26 Anion Gap 7 BUN 46 H Creatinine 1.53 H Estim Creat Clear Calc 53 Estimated GFR 44 L Glucose 116 H Calcium 8.0 L Total Bilirubin 0.7 AST 30 ALT 17 Alkaline Phosphatase 100 NT-Pro-B Natriuret Pep 2250 H Total Protein 6.0 L Albumin 2.4 L Vancomycin Trough 21.2 H Quality VTE Prophylaxis VTE prophylaxis: mechanical ordered and pharmacologic ordered
--- NOTE | 2024-05-25 12:56 | P.PNINF_ITS ---
Pharmacy ID Consult Stewardship Interventions Type of Interventions: Discharge Recommendation Pharmacy ID Note: Previous note copied below line for convenience of recall. note there was an addendum to previous note clarifying patient gender - M . Updated labs pasted below - additionally there were two blood culture sets obtained from 05/22/24 and 05/24/24 - both are NGTD - / sets are >72 hours, and / sets are >24 hours. Appears as bacteremia has cleared. Spoke with surgery provider and hospitalist provider - surgery team was okay with discontinuation of Cefepime/Metronidazole/Micafungin (Day 8) today given culture results and v ancomycin (Day 8) is to continue for MRSA BSI. TTE was done negative. PICC line remains in the patient from prior to the MRSA BSI. Hospitalist provider mentioned that there is a desire for a EMPERATRIZ from family so that test has yet to be done. Continue vancomycin IV goal troughs 15-20 mcg/mL or AUC:THEODORA goal 400-600:1. For 4 weeks from negative culture (earliest negative blood culture since clearance of MRSA BSI is 05/22) should EMPERATRIZ be negative as treating as if this is a complicated MRSA BSI - 06/18/24. For at least 6 weeks from negative culture (05/22) should EMPERATRIZ indicate MRSA IE - but consider ID provider consult/transfer in this light - 07/02/24. Vancomycin Monitoring should include at least weekly CBC, weekly BMP, and vancomycin TDM / levels based on the monitoring protocol of the service dosing the vancomycin - likely at least weekly. Current dosing interval is q24h, and undergoing trough monitoring via our pharmacy to dose vancomycin dosing policy. Should more frequent dosing be utilized, consider at least twice weekly levels. Continue to consider all measures to ensure source control, could consider line exchange. Patient may benefit from ID provider consult or transfer at this time as well. Will continue to follow via AMS service, but will sign off ID consult given end date for antibiotics being provided as above, and total antibiotic regimen being streamlined from empiric to targeted therapy. Will sign off Thank you for this consult Laboratory Tests 05/25/24 04:28 05/25/24 04:28 Microbiology 05/24/24 10:20 Blood Blood Culture - Preliminary 05/24/24 10:01 Blood Blood Culture - Preliminary 05/18/24 09:28 Blood Blood Culture - Final Methicillin Resis Staph Aureus 05/20/24 12:47 Blood Blood Culture - Final Methicillin Resis Staph Aureus 05/20/24 10:37 Blood Blood Culture - Final Methicillin Resis Staph Aureus Subjective Pharmacy was consulted by Demarco Jon regarding infectious diseases for Ludin Menon. Ludin Menon is a 78 year old [f_Reg Sex] with concerns regarding MRSA Bacteremia. Background The patient is currently receiving Cefepime, Micafungin, Metronidazole, Vancomycin - Day 6. The patient's PMH includes perforated ulcer, renal dysfunction, among others mentioned in providers notes. Additionally, patient WBC has been uptrending last week, peaking at 05/18, when the antimicrobials above were initiated, at 29. Slow decrease has followed to today's WBC of 17.2. Patient had 100.1 temp on 05/18 but has been afebrile since and their RIC is trending towards baseline, currently at 1.56 mg/dL but had been 2.47 on 05/18. Patient completed a course with piperacillin/tazobactam prior to 05/18. Cultures 04/23/24: BCX: NG 05/18/24: MRSA Nares PCR: Detected 05/18/24: BCX: MRSA 05/18/24: UCX: No growth 05/20/24: BCX: MRSA 05/22/24: BCX: NGTD - though this has been <48 hours at this time Assessment/Recommendation/Discussion The patient is currently receiving therapy empirically targeting a abdominal source, nosocomial sources, as well as MRSA. Targeted therapy is appropriate with vancomycin to the MRSA growing in the patient's blood for which we are awaiting clear cultures. The remainder of therapy could potentially be discontinued soon as cultures have not shown any alternative pathogen to target. Regarding the MRSA bacteremia - duration should be 2-4 weeks from negative blood culture depending on if this is complicated or uncomplicated MRSA BSI - likely leaning towards complicated given the complications this patient has undergone, but will defer to consulting provider. Provider had obtained TTE to find potential sources for bacteremia, TTE was negative. Patient has a PICC line that could be the source of this patient's bloodstream infection, or at least play a role in maintaining the current persistent bacteremia. Could consider line exchange. Patient may benefit from ID provider consult, could consider transfer. Adding mupirocin for nares for 5 days for decolonization of MRSA per conversation with Surgical COMPO CASTER. Will continue to follow. Rasheed Angel, PharmD Infectious Disease/Antimicrobial Stewardship Pharmacist 05/23/24; 1507 WBC 17.2 K/mm3 (4.5-10.0) H 05/23/24 04:30 Creatinine 1.56 mg/dL (0.7-1.3) H 05/23/24 04:30 Estim Creat Clear Calc 54 ml/min 05/23/24 04:30
[2024-05-25 14:00] VITALS: BP 161/51; PULSE 78; RESP 14; TEMP 36.9; O2SAT 97
--- NOTE | 2024-05-25 15:46 | PM.PNGS ---
Progress Note: A&P Assessment and Plan (1) Perforated gastric ulcer: Onset Date: 04/2024 Qualifiers: Gastric ulcer chronicity: acute Qualified Code(s): K25.1 - Acute gastric ulcer with perforation Code(s): K25.5 - Chronic or unspecified gastric ulcer with perforation Status: Acute Assessment and Plan: Repaired with omental patch 04/22/2024. WBC count within overall downward trend to 15,000 today. Continue IV vancomycin for bacteremia, but other antimicrobial stopped today after a total course of 7 days. Although the patient's labs are improving, his overall mentation, weakness, and generalized failure to thrive has continued to progress slowly over the past 2 weeks while treating his bacteremia. He is stable from a surgical standpoint and appears to be healing as expected, but has continued medical issues complicating his overall status. I had a long discussion with family, care coordination, hospitalist, and staff regarding the patient's plan of care and his wishes at this time. Family wishes to continue with current treatment. (2) Malnutrition following gastrointestinal surgery: Code(s): K91.2 - Postsurgical malabsorption, not elsewhere classified Status: Acute Assessment and Plan: Will continue with tube feedings q.i.d. and encouraging p.o. intake. Currently his p.o. intake is not improving and he is not currently getting the Marinol due to his weakened swallow. (3) Acute kidney injury superimposed on stage 3b chronic kidney disease: Code(s): N17.9 - Acute kidney failure, unspecified; N18.32 - Chronic kidney disease, stage 3b Status: Acute Assessment and Plan: Nephrology following. (4) MRSA (methicillin resistant staph aureus) culture positive: Code(s): Z22.322 - Carrier or suspected carrier of Methicillin resistant Staphylococcus aureus Status: Acute Assessment and Plan: Cultures were drawn on 05/20/2024 and growing MRSA. Repeat blood cultures on 05/22 with NGTD. Continue IV vancomycin. Nasal swab on 05/18/2024 also positive PCR for MRSA, continue mupirocin ointment for a total of 5 days. Hospitalist discussed consulting Cardiology for possible EMPERATRIZ. Plan I have discussed the patient's case and plan of care with Dr. Aguiar. Subjective Subjective Date/Time Seen: 05/25/24 14:00 Interval history: Patient seen today with his daughter, Anna, and Erika at the bedside. Care coordination, nursing, and hospitalist all present as well. They were planning to have a family meeting regarding the patient's care. He has poor p.o. intake and continues to get gradually more week. He has not been out of bed since the end of last week, either or Thursday. His weakness has progressed and has begun to have issues with swallowing. Today, per nursing he has also been more lethargic. He wakes easily but goes back to sleep quickly. He tries talking, but does not have much strength to get words out. He does wake up for me and is able to talk some, but appears very weak. He denies any pain. Not having any abdominal pain or nausea. States he does not have an appetite currently. They have not even given him any oral medications due to his lethargy. He also had a temp of a 100? F yesterday evening. He is afebrile today. He had repeat blood cultures drawn again yesterday. Review of Systems Review of Systems: All systems reviewed & are unremarkable except as noted in HPI and below Exam Const: General: ill appearing, tired appearing and edematous Orientation/consciousness: oriented to person and oriented to place GI: Inspection: non-distended and incision (Well-healed) GI Palp: Yes Soft to palpation, No Tenderness to palpation present (GI), No Guarding due to palpation present (GI) and No Rebound tenderness present Auscultation: normal bowel sounds Other: G-tube site clean with G-tube in place and clamped Gauze dressing in place in the right upper quadrant and left upper quadrant from previous ELSA drains, gauze dressing dry and intact. Objective Data Vital Signs Vital Signs: Vital Signs - 24 hr 05/24/24 19:57 05/24/24 20:00 05/24/24 20:03 Temperature 99.0 F 100.0 F H Pulse Rate 95 Respiratory Rate 18 Blood Pressure 163/53 H Pulse Oximetry 97 Oxygen Delivery Room Air 05/24/24 21:00 05/24/24 21:03 05/25/24 04:51 Temperature 98.9 F 98.9 F 97.7 F Pulse Rate 81 Respiratory Rate 20 Blood Pressure 178/70 H Pulse Oximetry 98 Oxygen Delivery 05/25/24 08:00 05/25/24 14:00 Temperature 98.4 F Pulse Rate 78 Respiratory Rate 14 Blood Pressure 161/51 H Pulse Oximetry 97 Oxygen Delivery Room Air Intake/Output Intake/Output: Intake & Output 05/22/24 05/23/24 05/24/24 05/25/24 23:59 23:59 23:59 23:59 Intake Total 2210 1620 1780 780 Output Total 4000 5350 2450 800 Balance -1790 -3730 -670 -20 Meds/Results Medications: Active Medications Generic Name Dose Route Start Last Admin Trade Name Freq PRN Reason Stop Dose Admin Acetaminophen 650 mg 04/26/24 22:19 04/26/24 22:57 Acetaminophen 650 Mg Suppository RECTAL 650 mg Q6H PRN Administration Mild Pain (1-3) or Fever Acetaminophen 650 mg 05/05/24 10:27 05/24/24 20:03 Acetaminophen Elixir 325 Mg/10.15 Ml Udc PO 650 mg Q6H PRN Administration Mild Pain (1-3) or Fever Alteplase, Recombinant 2 mg 05/22/24 21:26 05/22/24 21:57 Alteplase 2 Mg Vial (Cathflo) IV PUSH 2 mg ONCE PRN Administration Line Occlusion Artificial Tears 1 drop 04/27/24 08:37 05/23/24 09:35 Artificial Tears Ophth Soln 15 Ml Bottle EACH EYE 1 drop QID PRN Administration Dry Eye(s) Atorvastatin Calcium 20 mg 04/30/24 09:00 Atorvastatin 20 Mg Tablet BY MOUTH DAILY ROSY Benzocaine 1 lozenge 05/15/24 15:35 05/21/24 12:14 Benzocaine/Menthol (*Bkc) 18 Ea Lozenge PO 1 lozenge PRN PRN Administration Sore Throat Calcium Carbonate 500 mg 05/19/24 08:00 05/25/24 08:47 Calcium/Vitamin D 500 Mg/5 Mcg (200 I.U.) Tablet PO 500 mg DAILY@0800 ROSY Administration Clonidine HCl 1 patch 05/01/24 09:00 05/22/24 09:26 Clonidine 0.1 Mg/24 Hr Patch TRANSDERM 1 patch WEEKLY ROSY Administration Dextrose 12.5 gm 05/23/24 21:48 Dextrose 50% 25 Gm/50 Ml Syringe IV PUSH PRN PRN Hypoglycemia Protocol Dronabinol 2.5 mg 05/17/24 16:30 05/24/24 16:24 Dronabinol (*Crx) 2.5 Mg Capsule PO Not Given DAILY@1630 [facility] Enoxaparin Sodium 40 mg 05/25/24 09:00 05/25/24 08:47 Enoxaparin 40 Mg/0.4 Ml Syringe SUB-Q 40 mg DAILY ROSY Administration Epoetin Olu-epbx 10,000 units 05/14/24 11:05 05/24/24 09:32 Epoetin Olu-Epbx 10,000 Units/Ml Vial SUB-Q 10,000 units TUTHSA@09 [facility] Administration Glucagon 1 mg 05/23/24 21:48 Glucagon For Inj 1 Mg Vial IM PRN PRN Hypoglycemia Protocol Glucose 15 gm 05/23/24 21:48 Glucose Oral Gel 15 Gm Of Glucse In 37.5 Gm Tube PO PRN PRN Hypoglycemia Protocol Guaifenesin/Dextromethorphan 10 ml 05/15/24 10:07 05/22/24 01:23 Guaifenesin/Dextromethorphan 10 Ml Udc PO 10 ml Q4H PRN Administration Cough Hydralazine HCl 10 mg 04/25/24 08:00 05/24/24 20:02 Hydralazine Hcl 20 Mg/Ml Vial IV PUSH 10 mg Q4H PRN Administration Blood Pressure - High Vancomycin HCl 1,000 mg in 250 mls @ 250 mls/hr 05/25/24 06:00 05/25/24 05:20 Vancomycin 1,000 Mg/Ns 250 Ml IVPB 250 mls/hr Q24H ROSY Administration Ipratropium [place] 0.5 mg 05/04/24 09:32 05/17/24 10:11 Ipratropium Br 0.02% Inh Soln 0.5 Mg/2.5 Ml Vial INHALATION 0.5 mg Q6HRT PRN Administration Shortness Of Breath Levalbuterol HCl 0.63 mg 05/04/24 09:32 05/17/24 10:11 Levalbuterol Neb 1.25 Mg/3 Ml INHALATION 0.63 mg Q6HRT PRN Administration Shortness Of Breath Lidocaine 1 patch 05/18/24 09:00 05/25/24 08:48 Lidocaine 5% Patch TRANSDERM 1 patch DAILY [facility] Administration Lisinopril 40 mg 05/20/24 15:05 05/25/24 08:47 Lisinopril 20 Mg Tablet BY MOUTH 40 mg DAILY ROSY Administration Lorazepam 0.5 mg 05/16/24 13:48 05/22/24 09:54 Lorazepam (*Crx) 0.5 Mg Tablet PO 0.5 mg Q6H PRN Administration Anxiety Mupirocin 1 applic 05/23/24 21:00 05/25/24 08:46 Mupirocin 2% Oint 22 Gm Tube EACH NARE 05/28/24 09:01 1 applic Q12HR ROSY Administration Ondansetron HCl 4 mg 05/13/24 11:22 05/21/24 05:44 Ondansetron Inj 4 Mg/2 Ml Vial IV PUSH 4 mg Q6H PRN Administration Nausea And Vomiting Pantoprazole Sodium 40 mg 05/23/24 09:00 05/25/24 08:49 Pantoprazole 40 Mg Tablet PO Not Given QAM ROSY Sodium Chloride 10 ml 05/04/24 14:15 Central Line Flush IV PUSH PRN PRN with TPN bag changes Sodium Chloride 20 ml 05/04/24 14:15 05/25/24 04:29 Central Line Flush IV PUSH 20 ml PRN PRN Administration after blood draws Radiology Results: ITS Impressions Chest/Abdomen/Pelvis CTA 04/22/24 18:10 IMPRESSION: Perforated viscus with a large amount of free air and fluid, with mural thickening in the distal stomach and multiple punctate foci of extraluminal air in this area for which site of perforation is suspected. Renal Ultrasound 04/24/24 11:58 IMPRESSION: Simple cyst in the left kidney upper pole. Other appearances are unremarkable. Lower Extremity CTA 05/02/24 16:36 IMPRESSION: 1. Scattered atherosclerotic plaque in the arteries of the left lower limb as detailed above without a discrete hemodynamic significant stenosis. Runoff below the ankle in the left posterior tibial artery this supplies the foot. Atretic distal peroneal and anterior tibial arteries with intraluminal contrast becoming indiscernible at the level of the ankle and with no appreciable contrast in the dorsalis pedis artery. Upper GI Series 05/09/24 09:31 IMPRESSION: 1. Ulcer of the gastric antrum with contained extraluminal contrast similar to 04/28/2024. The extraluminal contrast distribution is worse than typically seen after Clarence patch repair. Abdomen CT 05/09/24 15:27 IMPRESSION: Redemonstration of a tract extending from the posterior superior margin of the antrum of the stomach only partially filled with oral contrast, perhaps demonstrating early healing. Abdomen/Pelvis CT 05/17/24 09:03 Impression: Persistent wall thickening of the gastric antrum/duodenum with surrounding haziness, compatible postoperative change. There is persistent irregular tract with small amount of fluid and external air extending from the gastric antrum superiorly/anteriorly, which could reflect abscess or persistent contained perforation. No extraluminal contrast seen, and no oral contrast seen within this collection. Intramuscular hematoma of the right iliopsoas and psoas major muscles, with additional irregular hematoma extending to the posterior right retroperitoneum. Bilateral fat-containing inguinal hernias. Small bilateral pleural effusions. Chest/Abdomen/Pelvis CT 05/22/24 14:37 IMPRESSION: Nodular opacities in the right upper lobe and right middle lobe, likely representing small infectious/inflammatory foci. Segmental bibasilar atelectasis/consolidation. Small bilateral simple pleural effusions. Cardiomegaly with trace pericardial fluid. Peritoneal gas anterior to the stomach secondary to antral perforation, with possible small adjacent abscess or fistulous tract. Nonfluid density peritoneal and psoas collections, may represent complex ascites from bowel content, blood, or phlegmon, or combination thereof. Significant body wall edema. Hand X-Ray 05/23/24 13:08 IMPRESSION: 1. No acute fracture. 2. Likely chronic malalignment at the wrist and carpus including 1 cm ulnar minus variance and disruption of the proximal carpal row which is most likely sequela of old trauma. 3. 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 4. Multiple subarticular lucencies at the wrist and carpus most likely degenerative subchondral cyst although differential includes chronic erosion such as in the setting of gout. Chest X-Ray 05/23/24 21:33 IMPRESSION: Left basilar atelectasis versus pneumonia. Cardiomegaly with congestive kristian and interstitial thickening which may indicate cardiac decompensation and pulmonary edema. Clinical correlation advised. Pneumonitis is not excluded. Labs Labs: Laboratory Results - last 24 hr 05/24/24 05/25/24 23:25 04:28 WBC 15.3 H RBC 2.95 L Hgb 8.8 L Hct 28.1 L MCV 95.3 MCH 29.8 MCHC 31.3 L RDW 16.8 H Plt Count 222 MPV 11.7 H Immature Gran % (Auto) 5.3 H Neut % (Auto) 75.4 H Lymph % (Auto) 10.0 L [place] % (Auto) 7.2 Eos % (Auto) 1.6 Baso % (Auto) 0.5 Lymph # (Auto) 1.53 [place] # (Auto) 1.1 H Eos # (Auto) 0.3 Baso # (Auto) 0.1 Abs Immat Gran (auto) 0.81 H Absolute Neuts (auto) 11.6 H Absolute Nucleated RBC 0.000 Nucleated RBC % 0.0 Sodium 138 Potassium 3.4 Chloride 105 Carbon Dioxide 26 Anion Gap 7 BUN 46 H Creatinine 1.53 H Estim Creat Clear Calc 53 Estimated GFR 44 L Glucose 116 H Calcium 8.0 L Total Bilirubin 0.7 AST 30 ALT 17 Alkaline Phosphatase 100 NT-Pro-B Natriuret Pep 2250 H Total Protein 6.0 L Albumin 2.4 L Vancomycin Trough 21.2 H
[2024-05-25 20:19] VITALS: BP 159/52; PULSE 85; RESP 20; TEMP 37.2; O2SAT 97
[2024-05-25 21:01] VITALS: O2SAT 97
[2024-05-26 05:11] VITALS: BP 171/57; PULSE 84; RESP 20; TEMP 36.7; O2SAT 99
[2024-05-26] MEDS: VANCOMYCIN 1,000 MG/NS 250 ML 1,000 MG/250 ML BAG 250 MG IVPB (05:23)
[2024-05-26 05:26] LABS: Basophils Absolute Auto 0.1 K/mm3 (0.0-0.1); Basophils Percent Auto 0.5 % (0.2-1.2); Eosinophils Absolute Auto 0.3 K/mm3 (0-0.3); Eosinophils Percent Auto 2.4 % (0-4.4); Hematocrit 27.8 % (42.0-52.0); Hemoglobin 8.7 g/dL (14.0-18.0); Immature Granulocyte Absolute 0.53 K/mm3 (0.00-0.031); Immature Granulocyte Percent A 4.1 % (0-0.5); Lymphocytes Absolute Auto 1.66 K/mm3 (0.9-3.2); Lymphocytes Percent Auto 12.8 % (18.3-44.2); Mean Corpuscular HGB Conc 31.3 g/dl (32-36); Mean Corpuscular Hemoglobin 29.4 pg (26-34); Mean Corpuscular Volume 93.9 fl (80-100); Mean Platelet Volume 11.9 fl (7.4-10.4); Monocytes Absolute Auto 0.8 K/mm3 (0.1-0.6); Monocytes Percent Auto 6.3 % (2.6-8.5); Neutrophils Absolute Auto 9.6 K/mm3 (1.3-6.7); Neutrophils Percent Auto 73.9 % (45.5-73.1); Platelet Count Result 262 k/mm3 (150-375); Red Blood Count 2.96 M/mm3 (4.6-6.20); Red Cell Distribution Width 16.8 % (11.5-14.5)
[2024-05-26 05:38] LABS: Alanine Aminotransferase 16 U/L (6-50); Albumin Level 2.4 g/dL (3.5-5.1); Alkaline Phosphatase 97 U/L (38-126); Anion Gap 4 mmol/L (4-12); Aspartate Amino Transferase 26 U/L (17-59); Bilirubin,Total 0.6 mg/dL (0.2-1.3); Blood Urea Nitrogen 45 mg/dL (9-20); Calcium 7.9 mg/dL (8.4-10.2); Carbon Dioxide 28 mmol/L (22-30); Chloride 108 mmol/L (98-107); Estimated CRCL calculation 54 ml/min; Estimated Glomerular Filt Rate 45; Glucose 112 mg/dL (65-110); Magnesium 1.8 mg/dL (1.6-2.3); Potassium 3.5 mmol/L (3.4-5.0); Sodium 140 mmol/L (137-145)
[2024-05-26 05:44] LABS: NT Pro B Type Natriuretic Pept 2060 pg/mL (19.9-100)
[2024-05-26 06:39] VITALS: BP 173/68
[2024-05-26] MEDS: hydrALAZINE HCL 20 MG/ML VIAL 10 MG IV PUSH ×2 (06:40→21:42)
--- NOTE | 2024-05-26 07:46 | P.PNGS_ITS ---
Progress Note: A&P Assessment and Plan (1) MRSA bacteremia: Code(s): R78.81 - Bacteremia; B95.62 - Methicillin resistant Staphylococcus aureus infection as the cause of diseases classified elsewhere Status: Acute Assessment and Plan: Repeat blood cultures from 05/24 2 show Gram-positive cocci in clusters, strongly suggestive of persistent MRSA bacteremia. Source of this is unclear. Will have new PICC line placed and this 1 removed. He has had numerous abdominal studies which have not shown an abscess or bowel leakage. He has essentially a normal abdominal exam. Hopefully this is from colonization of the PICC line. Weakness, mental status, ability to clear secretions all seem to be slowly getting worse. (2) Perforated gastric ulcer: Onset Date: 04/2024 Qualifiers: Gastric ulcer chronicity: acute Qualified Code(s): K25.1 - Acute gastric ulcer with perforation Code(s): K25.5 - Chronic or unspecified gastric ulcer with perforation Status: Acute Assessment and Plan: Multiple studies have been done and reviewed carefully with the radiologist. No sign of abscess or gastric leak. No sign of significant intra-abdominal process and abdominal exam is normal with active bowel sounds present. (3) Malnutrition following gastrointestinal surgery: Code(s): K91.2 - Postsurgical malabsorption, not elsewhere classified Status: Acute Assessment and Plan: Patient took 1050 cc by mouth yesterday and tolerated 720 cc of tube feeding. Hopefully this will continue. Subjective Subjective Date/Time Seen: 05/26/24 07:46 Patient reports: bowel movement, afebrile and other (Patient more awake but gurgling with respirations and can not really verbalize.) Review of Systems Review of Systems: ROS unobtainable: Yes unobtainable due to medical condition Exam Const: General: awake, lethargic and tired appearing Resp: Effort & Inspection: abnormal respiratory pattern and other (Gurgling respirations) GI: Inspection: non-distended and incision (Incision looks good, no drainage or erythema.) GI Palp: Yes Soft to palpation and No Tenderness to palpation present (GI) Auscultation: normal bowel sounds Objective Data Vital Signs Vital Signs: Vital Signs - 24 hr 05/25/24 08:00 05/25/24 14:00 05/25/24 20:00 Temperature 36.9 C Pulse Rate 78 Respiratory Rate 14 Blood Pressure 161/51 H Pulse Oximetry 97 Oxygen Delivery Room Air Room Air 05/25/24 20:19 05/25/24 21:01 05/26/24 05:11 Temperature 37.2 C 36.7 C Pulse Rate 85 84 Respiratory Rate 20 20 Blood Pressure 159/52 H 171/57 H Pulse Oximetry 97 97 99 Oxygen Delivery Room Air 05/26/24 06:39 Temperature Pulse Rate Respiratory Rate Blood Pressure 173/68 H Pulse Oximetry Oxygen Delivery Intake/Output Intake/Output: Intake & Output 05/23/24 05/24/24 05/25/24 05/26/24 23:59 23:59 23:59 23:59 Intake Total 1620 1780 2420 250 Output Total 5350 2450 800 1150 Balance -3730 -670 1620 -900 Meds/Results Medications: Active Medications Generic Name Dose Route Start Last Admin Trade Name Freq PRN Reason Stop Dose Admin Acetaminophen 650 mg 04/26/24 22:19 04/26/24 22:57 Acetaminophen 650 Mg Suppository RECTAL 650 mg Q6H PRN Administration Mild Pain (1-3) or Fever Acetaminophen 650 mg 05/05/24 10:27 05/24/24 20:03 Acetaminophen Elixir 325 Mg/10.15 Ml Udc PO 650 mg Q6H PRN Administration Mild Pain (1-3) or Fever Alteplase, Recombinant 2 mg 05/22/24 21:26 05/22/24 21:57 Alteplase 2 Mg Vial (Cathflo) IV PUSH 2 mg ONCE PRN Administration Line Occlusion Artificial Tears 1 drop 04/27/24 08:37 05/23/24 09:35 Artificial Tears Ophth Soln 15 Ml Bottle EACH EYE 1 drop QID PRN Administration Dry Eye(s) Atorvastatin Calcium 20 mg 04/30/24 09:00 Atorvastatin 20 Mg Tablet BY MOUTH DAILY ROSY Benzocaine 1 lozenge 05/15/24 15:35 05/21/24 12:14 Benzocaine/Menthol (*Bkc) 18 Ea Lozenge PO 1 lozenge PRN PRN Administration Sore Throat Bumetanide 1 mg 05/26/24 09:00 Bumetanide Inj 1 Mg/4 Ml Vial IV PUSH 05/28/24 17:01 BID ROSY Calcium Carbonate 500 mg 05/19/24 08:00 05/25/24 08:47 Calcium/Vitamin D 500 Mg/5 Mcg (200 I.U.) Tablet PO 500 mg DAILY@0800 [facility] Administration Clonidine HCl 1 patch 05/01/24 09:00 05/22/24 09:26 Clonidine 0.1 Mg/24 Hr Patch TRANSDERM 1 patch WEEKLY ROSY Administration Dextrose 12.5 gm 05/23/24 21:48 Dextrose 50% 25 Gm/50 Ml Syringe IV PUSH PRN PRN Hypoglycemia Protocol Dronabinol 2.5 mg 05/17/24 16:30 05/25/24 17:08 Dronabinol (*Crx) 2.5 Mg Capsule PO Not Given DAILY@1630 [facility] Enoxaparin Sodium 40 mg 05/25/24 09:00 05/25/24 08:47 Enoxaparin 40 Mg/0.4 Ml Syringe SUB-Q 40 mg DAILY ROSY Administration Epoetin Olu-epbx 10,000 units 05/14/24 11:05 05/24/24 09:32 Epoetin Olu-Epbx 10,000 Units/Ml Vial SUB-Q 10,000 units TUTHSA@09 [facility] Administration Glucagon 1 mg 05/23/24 21:48 Glucagon For Inj 1 Mg Vial IM PRN PRN Hypoglycemia Protocol Glucose 15 gm 05/23/24 21:48 Glucose Oral Gel 15 Gm Of Glucse In 37.5 Gm Tube PO PRN PRN Hypoglycemia Protocol Guaifenesin/Dextromethorphan 10 ml 05/15/24 10:07 05/22/24 01:23 Guaifenesin/Dextromethorphan 10 Ml Udc PO 10 ml Q4H PRN Administration Cough Hydralazine HCl 10 mg 04/25/24 08:00 05/26/24 06:40 Hydralazine Hcl 20 Mg/Ml Vial IV PUSH 10 mg Q4H PRN Administration Blood Pressure - High Vancomycin HCl 1,000 mg in 250 mls @ 250 mls/hr 05/25/24 06:00 05/26/24 06:32 Vancomycin 1,000 Mg/Ns 250 Ml IVPB Infused Q24H [facility] Infusion Albumin Human 50 mls @ 50 mls/hr 05/26/24 09:00 Albutein IVPB 05/28/24 17:59 BID [facility] Ipratropium [place] 0.5 mg 05/04/24 09:32 05/17/24 10:11 Ipratropium Br 0.02% Inh Soln 0.5 Mg/2.5 Ml Vial INHALATION 0.5 mg Q6HRT PRN Administration Shortness Of Breath Levalbuterol HCl 0.63 mg 05/04/24 09:32 05/17/24 10:11 Levalbuterol Neb 1.25 Mg/3 Ml INHALATION 0.63 mg Q6HRT PRN Administration Shortness Of Breath Lidocaine 1 patch 05/18/24 09:00 05/25/24 08:48 Lidocaine 5% Patch TRANSDERM 1 patch DAILY ROSY Administration Lisinopril 40 mg 05/20/24 15:05 05/25/24 08:47 Lisinopril 20 Mg Tablet BY MOUTH 40 mg DAILY ROSY Administration Lorazepam 0.5 mg 05/16/24 13:48 05/22/24 09:54 Lorazepam (*Crx) 0.5 Mg Tablet PO 0.5 mg Q6H PRN Administration Anxiety Mupirocin 1 applic 05/23/24 21:00 05/25/24 20:11 Mupirocin 2% Oint 22 Gm Tube EACH NARE 05/28/24 09:01 1 applic Q12HR ROSY Administration Ondansetron HCl 4 mg 05/13/24 11:22 05/21/24 05:44 Ondansetron Inj 4 Mg/2 Ml Vial IV PUSH 4 mg Q6H PRN Administration Nausea And Vomiting Pantoprazole Sodium 40 mg 05/23/24 09:00 05/25/24 08:49 Pantoprazole 40 Mg Tablet PO Not Given QAM ROSY Sodium Chloride 10 ml 05/04/24 14:15 Central Line Flush IV PUSH PRN PRN with TPN bag changes Sodium Chloride 20 ml 05/04/24 14:15 05/25/24 04:29 Central Line Flush IV PUSH 20 ml PRN PRN Administration after blood draws Radiology Results: ITS Impressions Chest/Abdomen/Pelvis CTA 04/22/24 18:10 IMPRESSION: Perforated viscus with a large amount of free air and fluid, with mural thickening in the distal stomach and multiple punctate foci of extraluminal air in this area for which site of perforation is suspected. Renal Ultrasound 04/24/24 11:58 IMPRESSION: Simple cyst in the left kidney upper pole. Other appearances are unremarkable. Lower Extremity CTA 05/02/24 16:36 IMPRESSION: 1. Scattered atherosclerotic plaque in the arteries of the left lower limb as detailed above without a discrete hemodynamic significant stenosis. Runoff below the ankle in the left posterior tibial artery this supplies the foot. Atretic distal peroneal and anterior tibial arteries with intraluminal contrast becoming indiscernible at the level of the ankle and with no appreciable contrast in the dorsalis pedis artery. Upper GI Series 05/09/24 09:31 IMPRESSION: 1. Ulcer of the gastric antrum with contained extraluminal contrast similar to 04/28/2024. The extraluminal contrast distribution is worse than typically seen after Clarence patch repair. Abdomen CT 05/09/24 15:27 IMPRESSION: Redemonstration of a tract extending from the posterior superior margin of the antrum of the stomach only partially filled with oral contrast, perhaps dem onstrating early healing. Abdomen/Pelvis CT 05/17/24 09:03 Impression: Persistent wall thickening of the gastric antrum/duodenum with surrounding haziness, compatible postoperative change. There is persistent irregular tract with small amount of fluid and external air extending from the gastric antrum superiorly/anteriorly, which could reflect abscess or persistent contained perforation. No extraluminal contrast seen, and no oral contrast seen within this collection. Intramuscular hematoma of the right iliopsoas and psoas major muscles, with additional irregular hematoma extending to the posterior right retroperitoneum. Bilateral fat-containing inguinal hernias. Small bilateral pleural effusions. Chest/Abdomen/Pelvis CT 05/22/24 14:37 IMPRESSION: Nodular opacities in the right upper lobe and right middle lobe, likely representing small infectious/inflammatory foci. Segmental bibasilar atelectasis/consolidation. Small bilateral simple pleural effusions. Cardiomegaly with trace pericardial fluid. Peritoneal gas anterior to the stomach secondary to antral perforation, with possible small adjacent abscess or fistulous tract. Nonfluid density peritoneal and psoas collections, may represent complex ascites from bowel content, blood, or phlegmon, or combination thereof. Significant body wall edema. Hand X-Ray 05/23/24 13:08 IMPRESSION: 1. No acute fracture. 2. Likely chronic malalignment at the wrist and carpus including 1 cm ulnar minus variance and disruption of the proximal carpal row which is most likely sequela of old trauma. 3. 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 4. Multiple subarticular lucencies at the wrist and carpus most likely degenerative subchondral cyst although differential includes chronic erosion such as in the setting of gout. Chest X-Ray 05/23/24 21:33 IMPRESSION: Left basilar atelectasis versus pneumonia. Cardiomegaly with congestive kristian and interstitial thickening which may indicate cardiac decompensation and pulmonary edema. Clinical correlation advised. Pneumonitis is not excluded. Labs Labs: Laboratory Results - last 24 hr 05/26/24 05:20 WBC 13.0 H RBC 2.96 L Hgb 8.7 L Hct 27.8 L MCV 93.9 MCH 29.4 MCHC 31.3 L RDW 16.8 H Plt Count 262 MPV 11.9 H Immature Gran % (Auto) 4.1 H Neut % (Auto) 73.9 H Lymph % (Auto) 12.8 L [place] % (Auto) 6.3 Eos % (Auto) 2.4 Baso % (Auto) 0.5 Lymph # (Auto) 1.66 [place] # (Auto) 0.8 H Eos # (Auto) 0.3 Baso # (Auto) 0.1 Abs Immat Gran (auto) 0.53 H Absolute Neuts (auto) 9.6 H Absolute Nucleated RBC 0.000 Nucleated RBC % 0.0 Sodium 140 Potassium 3.5 Chloride 108 H Carbon Dioxide 28 Anion Gap 4 BUN 45 H Creatinine 1.51 H Estim Creat Clear Calc 54 Estimated GFR 45 L Glucose 112 H Calcium 7.9 L Magnesium 1.8 Total Bilirubin 0.6 AST 26 ALT 16 Alkaline Phosphatase 97 NT-Pro-B Natriuret Pep 2060 H Total Protein 6.0 L Albumin 2.4 L
[2024-05-26] MEDS: ENOXAPARIN 40 MG/0.4 ML SYRINGE SUB-Q (09:47)
[2024-05-26] MEDS: LIDOCAINE 5% PATCH 1 PATCH TRANSDERM (09:47)
[2024-05-26] MEDS: EPOETIN ALFA-EPBX 10,000 UNITS/ML VIAL 10000 UNITS SUB-Q (09:47)
[2024-05-26] MEDS: ALBUMIN HUMAN 25% 12.5 GM/50ML 50 ML IVPB ×2 (09:49→17:25)
[2024-05-26] MEDS: MUPIROCIN 2% OINT 22 GM TUBE 1 APPLIC EACH NARE ×2 (09:49→21:43)
[2024-05-26] MEDS: NEOMYCIN/POLYMYXIN/BACITRACIN OINTMENT PACKET 1 PACKET (09:49)
--- NOTE | 2024-05-26 11:16 | P.PNIM_ITS ---
Progress Note: A&P Assessment and Plan (1) Sepsis: Code(s): A41.9 - Sepsis, unspecified organism Status: Resolved Assessment and Plan: Meets SIRS criteria: Tachycardia, Febrile, Leukocytosis Blood culture positive x2 from 05/18 repeat blood culture 05/22 still negative and / positive for GPC in clusters Continue IV Vancomycin Cardiology noted that patient is not a candidate for EMPERATRIZ Repeat blood cultures ordered, awaiting negative cultures for 6 weeks IV Vanc therapy monitor (2) MRSA (methicillin resistant staph aureus) culture positive: Code(s): Z22.322 - Carrier or suspected carrier of Methicillin resistant Staphylococcus aureus Status: Acute Assessment and Plan: see above care (3) Bacteremia: Code(s): R78.81 - Bacteremia Status: Acute (4) Perforated abdominal viscus: Code(s): R19.8 - Other specified symptoms and signs involving the digestive system and abdomen Status: Acute Assessment and Plan: Septic shock from peritonitis with perforated gastric ulcer s/p laparotomy with repair repeat CT chest/AP nodular opacities in the right upper lobe and right middle lobe, peritoneal gas ant to stomach with possible small adjacent abscess or fistulous tract Surgery evaluated and noted not abscess is persistent finding not big enough for drainage Continue Peg Tube feeding for now. Gen surgery following (5) Pneumonia: Code(s): J18.9 - Pneumonia, unspecified organism Status: Acute Assessment and Plan: * Nodular opacities in the right upper lobe and right middle lobe, likely representing small infectious/inflammatory foci. * Afebrile * Completed Cefepime, Flagyl * Continue Abx * WBC downtrending, WBC 13.0 from 29.0 (6) Malnutrition following gastrointestinal surgery: Code(s): K91.2 - Postsurgical malabsorption, not elsewhere classified Status: Acute Assessment and Plan: * Passed swallow study. * Patient advanced to soft diet per General surgery recommendation * Continue to encourage po intake * Bolus tube feeding via G tube * add reglan and Marinol (7) Dysphagia: Code(s): R13.10 - Dysphagia, unspecified Status: Acute Assessment and Plan: * See plan above * continue tube feeding * Advance diet per Speech (8) Right wrist pain: Code(s): M25.531 - Pain in right wrist Status: Acute Assessment and Plan: * Patient started c/o of right wrist pain on 05/23 * Likely related to repeated blood culture attempts * XR hand RT 2V: No acute fracture. 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 Multiple subarticular lucencies at the wrist and carpus * Physical exam benign (9) Acute kidney injury superimposed on stage 3b chronic kidney disease: Code(s): N17.9 - Acute kidney failure, unspecified; N18.32 - Chronic kidney disease, stage 3b Status: Acute Assessment and Plan: * baseline creatinine most likely around 1.5 * Nephrology following * Renal ultrasound was unremarkable for any acute issues. * Restarted Lasix, holding IVF * Cr 4.03 -> 1.51 * Continue trending (10) Hematoma: Code(s): T14.8XXA - Other injury of unspecified body region, initial encounter Status: Acute Assessment and Plan: * CT abdomen pelvis on 05/17/2024 shows: Intramuscular hematoma of the right iliopsoas and psoas major muscles, with additional irregular hematoma extending to the posterior right retroperitoneum. * Spoke with surgery likely noninfective * Lidocaine patch * Lovenox on hold, no recent found for therapeutic Lovenox, when patient was placed back on Lovenox likely benefit from the 40 mg (11) Pleural effusion: Code(s): J90 - Pleural effusion, not elsewhere classified Status: Acute Assessment and Plan: * Seen on CT * Chest x-ray dated compare * Likely due to 3rd spacing * Stable (12) Anemia: Code(s): D64.9 - Anemia, unspecified Status: Acute Assessment and Plan: Iron deficiency anemia on acute loss Stable * Trend CBC. * transfuse if hgb <7.0, or symptomatic * Iron replacement * hb 8.7 (13) HTN (hypertension): Code(s): I10 - Essential (primary) hypertension Status: Acute Assessment and Plan: Controlled * Continue Clonidine patch and Hydralazine PRN. * Trend BP (14) Generalized weakness: Code(s): R53.1 - Weakness Status: Acute Assessment and Plan: * PT/OT-maxi move use for transfer * Patient will likely need placement * No changes to current plan (15) Hypokalemia: Code(s): E87.6 - Hypokalemia Status: Acute Assessment and Plan: Improved * Trend labs * Replace as indicated (16) Hypernatremia: Code(s): E87.0 - Hyperosmolality and hypernatremia Status: Acute Assessment and Plan: Resolved Daily BMP Plan DVT prophylaxis on Sq Lovenox awaiting negative blood cultures for discharge planning Subjective Date/time seen: 05/26/24 11:16 Interval history: More awake today compared to yesterday however nurse noted that patient appears to coughing more today SPeech eval reconsulted Review of Systems Review of Systems: 12 systems were reviewed and are negativ e except for as per HPI. All systems reviewed & are unremarkable except as noted in HPI and below ROS unobtainable: Yes unobtainable due to endotracheal tube and unobtainable due to medical condition Exam Narrative: General: Ill appearing, appears stated age. HEENT: normocephalic, atraumatic. Mucous membranes moist. EOMI, PERRLA, bilateral sclera anicteric, no conjunctival injection. Respiratory: clear to ascultation bilaterally. No rales/rhonic/wheezes. Cardiovascular: Regular rate and rhythm, normal S1-S2 upon ascultation. No murmurs, rubs, or clicks. Capillary refill less than 3 second. Abdomen: Soft, round, no pulsatile masses, nondistended and nontender. No rebound, no guarding. Bowel sounds present to all four quadrants. No high pitch or tinkling sounds. Extremities: 2 + edema to both LE. No cyanosis, clubbing present. Pulses are palpable 2/2. Active ROM to all four extremities. Neuro: Alert and orientated x 4. PERRLA. Cranial nerves 2-12 intact without focal deficit. Skin: Warm, dry, and intact, without rash, erythema, or lesion. Psych: pleasant, cooperative, normal speech, normal affect, no hallucinations, no dysarthia Skin: G-tube site clean with G-tube in place and clamped. Gauze dressing in place in the right upper quadrant and left upper quadrant from previous ELSA drains, gauze dressing dry and intact. Const: General: comfortable, no acute distress and uncomfortable Other: Acutely ill-appearing, obese HENMT: Other: Mucous membranes are dry, head is normocephalic atraumatic, few missing teeth, bridge in the lower jaw Eyes: Other: Pupils are equal and reactive, no scleral icterus Neck: Other: No JVD, trachea midline Resp: Effort & Inspection: normal respiratory effort Auscultation: clear to auscultation bilaterally and diminished lung sounds Other: Cardio: Rate: regular rate Rhythm: regular rhythm Other: Telemetry SR 85. GI: Auscultation: normal bowel sounds Other: Gastrostomy tube in place with dry gauze dressing and skin around the G-tube without erythema or drainage. Incision dry with steri strips intact, no erythema. Slightly distended. : Other: Bowman catheter in place was a small amount of turbid yellow urine Urinary Catheter: Urinary Catheter: patent and draining Skin: Other: Generally cold to touch, 2nd cap refill, fingers and toes are cyanotic Neuro: Speech: normal speech Other: Pupils are reactive, equal Extrem: General: pedal edema bilaterally 2+ Other: 2+PP bilateral feet are warm. Psych: Mental Status: mental status grossly normal Affect: normal affect Other: Unable to assess due to patient condition Objective Data Vital Signs Vital Signs: Vital Signs - 24 hr 05/25/24 14:00 05/25/24 20:00 05/25/24 20:19 Temperature 98.4 F 98.9 F Pulse Rate 78 85 Respiratory Rate 14 20 Blood Pressure 161/51 H 159/52 H Pulse Oximetry 97 97 Oxygen Delivery Room Air 05/25/24 21:01 05/26/24 05:11 05/26/24 06:39 Temperature 98.1 F Pulse Rate 84 Respiratory Rate 20 Blood Pressure 171/57 H 173/68 H Pulse Oximetry 97 99 Oxygen Delivery Room Air Intake/Output Intake/Output: Intake & Output 05/23/24 05/24/24 05/25/24 05/26/24 23:59 23:59 23:59 23:59 Intake Total 1620 1780 2420 250 Output Total 5350 2450 800 1150 Balance -3730 -670 1620 -900 Meds/Results Medications: Active Medications Generic Name Dose Route Start Last Admin Trade Name Freq PRN Reason Stop Dose Admin Acetaminophen 650 mg 04/26/24 22:19 04/26/24 22:57 Acetaminophen 650 Mg Suppository RECTAL 650 mg Q6H PRN Administration Mild Pain (1-3) or Fever Acetaminophen 650 mg 05/05/24 10:27 05/24/24 20:03 Acetaminophen Elixir 325 Mg/10.15 Ml Udc PO 650 mg Q6H PRN Administration Mild Pain (1-3) or Fever Alteplase, Recombinant 2 mg 05/22/24 21:26 05/22/24 21:57 Alteplase 2 Mg Vial (Cathflo) IV PUSH 2 mg ONCE PRN Administration Line Occlusion Artificial Tears 1 drop 04/27/24 08:37 05/23/24 09:35 Artificial Tears Ophth Soln 15 Ml Bottle EACH EYE 1 drop QID PRN Administration Dry Eye(s) Atorvastatin Calcium 20 mg 04/30/24 09:00 Atorvastatin 20 Mg Tablet BY MOUTH DAILY [facility] Benzocaine 1 lozenge 05/15/24 15:35 05/21/24 12:14 Benzocaine/Menthol (*Bkc) 18 Ea Lozenge PO 1 lozenge PRN PRN Administration Sore Throat Bumetanide 1 mg 05/26/24 09:00 Bumetanide Inj 1 Mg/4 Ml Vial IV PUSH 05/28/24 17:01 BID [facility] Calcium Carbonate 500 mg 05/19/24 08:00 05/26/24 09:45 Calcium/Vitamin D 500 Mg/5 Mcg (200 I.U.) Tablet PO Not Given DAILY@0800 [facility] Clonidine HCl 1 patch 05/01/24 09:00 05/22/24 09:26 Clonidine 0.1 Mg/24 Hr Patch TRANSDERM 1 patch WEEKLY [facility] Administration Dextrose 12.5 gm 05/23/24 21:48 Dextrose 50% 25 Gm/50 Ml Syringe IV PUSH PRN PRN Hypoglycemia Protocol Dronabinol 2.5 mg 05/17/24 16:30 05/25/24 17:08 Dronabinol (*Crx) 2.5 Mg Capsule PO Not Given DAILY@1630 [facility] Enoxaparin Sodium 40 mg 05/25/24 09:00 05/26/24 09:47 Enoxaparin 40 Mg/0.4 Ml Syringe SUB-Q 40 mg DAILY [facility] Administration Epoetin Olu-epbx 10,000 units 05/14/24 11:05 05/26/24 09:47 Epoetin Olu-Epbx 10,000 Units/Ml Vial SUB-Q 10,000 units TUTHSA@09 [facility] Administration Glucagon 1 mg 05/23/24 21:48 Glucagon For Inj 1 Mg Vial IM PRN PRN Hypoglycemia Protocol Glucose 15 gm 05/23/24 21:48 Glucose Oral Gel 15 Gm Of Glucse In 37.5 Gm Tube PO PRN PRN Hypoglycemia Protocol Guaifenesin/Dextromethorphan 10 ml 05/15/24 10:07 05/22/24 01:23 Guaifenesin/Dextromethorphan 10 Ml Udc PO 10 ml Q4H PRN Administration Cough Hydralazine HCl 10 mg 04/25/24 08:00 05/26/24 06:40 Hydralazine Hcl 20 Mg/Ml Vial IV PUSH 10 mg Q4H PRN Administration Blood Pressure - High Vancomycin HCl 1,000 mg in 250 mls @ 250 mls/hr 05/25/24 06:00 05/26/24 06:32 Vancomycin 1,000 Mg/Ns 250 Ml IVPB Infused Q24H [facility] Infusion Albumin Human 50 mls @ 50 mls/hr 05/26/24 09:00 05/26/24 09:49 Albutein IVPB 05/28/24 17:59 50 mls/hr BID [facility] Administration Ipratropium Porter 0.5 mg 05/04/24 09:32 05/17/24 10:11 Ipratropium Br 0.02% Inh Soln 0.5 Mg/2.5 Ml Vial INHALATION 0.5 mg Q6HRT PRN Administration Shortness Of Breath Levalbuterol HCl 0.63 mg 05/04/24 09:32 05/17/24 10:11 Levalbuterol Neb 1.25 Mg/3 Ml INHALATION 0.63 mg Q6HRT PRN Administration Shortness Of Breath Lidocaine 1 patch 05/18/24 09:00 05/26/24 09:47 Lidocaine 5% Patch TRANSDERM 1 patch DAILY [facility] Administration Lisinopril 40 mg 05/20/24 15:05 05/26/24 09:49 Lisinopril 20 Mg Tablet BY MOUTH Not Given DAILY [facility] Lorazepam 0.5 mg 05/16/24 13:48 05/22/24 09:54 Lorazepam (*Crx) 0.5 Mg Tablet PO 0.5 mg Q6H PRN Administration Anxiety Mupirocin 1 applic 05/23/24 21:00 05/26/24 09:49 Mupirocin 2% Oint 22 Gm Tube EACH NARE 05/28/24 09:01 1 applic Q12HR [facility] Administration Ondansetron HCl 4 mg 05/13/24 11:22 05/21/24 05:44 Ondansetron Inj 4 Mg/2 Ml Vial IV PUSH 4 mg Q6H PRN Administration Nausea And Vomiting Pantoprazole Sodium 40 mg 05/23/24 09:00 05/26/24 09:49 Pantoprazole 40 Mg Tablet PO Not Given QAM [facility] Sodium Chloride 10 ml 05/04/24 14:15 Central Line Flush IV PUSH PRN PRN with TPN bag changes Sodium Chloride 20 ml 05/04/24 14:15 05/25/24 04:29 Central Line Flush IV PUSH 20 ml PRN PRN Administration after blood draws Radiology Results: ITS Impressions Chest/Abdomen/Pelvis CTA 04/22/24 18:10 IMPRESSION: Perforated viscus with a large amount of free air and fluid, with mural thickening in the distal stomach and multiple punctate foci of extraluminal air in this area for which site of perforation is suspected. Renal Ultrasound 04/24/24 11:58 IMPRESSION: Simple cyst in the left kidney upper pole. Other appearances are unremarkable. Lower Extremity CTA 05/02/24 16:36 IMPRESSION: 1. Scattered atherosclerotic plaque in the arteries of the left lower limb as detailed above without a discrete hemodynamic significant stenosis. Runoff below the ankle in the left posterior tibial artery this supplies the foot. Atretic distal peroneal and anterior tibial arteries with intraluminal contrast becoming indiscernible at the level of the ankle and with no appreciable contrast in the dorsalis pedis artery. Upper GI Series 05/09/24 09:31 IMPRESSION: 1. Ulcer of the gastric antrum with contained extraluminal contrast similar to 04/28/2024. The extraluminal contrast distribution is worse than typically seen after Clarence patch repair. Abdomen CT 05/09/24 15:27 IMPRESSION: Redemonstration of a tract extending from the posterior superior margin of the antrum of the stomach only partially filled with oral contrast, perhaps demonstrating early healing. Abdomen/Pelvis CT 05/17/24 09:03 Impression: Persistent wall thickening of the gastric antrum/duodenum with surrounding haziness, compatible postoperative change. There is persistent irregular tract with small amount of fluid and external air extending from the gastric antrum superiorly/anteriorly, which could reflect abscess or persistent contained perforation. No extraluminal contrast seen, and no oral contrast seen within this collection. Intramuscular hematoma of the right iliopsoas and psoas major muscles, with additional irregular hematoma extending to the posterior right retroperitoneum. Bilateral fat-containing inguinal hernias. Small bilateral pleural effusions. Chest/Abdomen/Pelvis CT 05/22/24 14:37 IMPRESSION: Nodular opacities in the right upper lobe and right middle lobe, likely representing small infectious/inflammatory foci. Segmental bibasilar atelectasis/consolidation. Small bilateral simple pleural effusions. Cardiomegaly with trace pericardial fluid. Peritoneal gas anterior to the stomach secondary to antral perforation, with possible small adjacent abscess or fistulous tract. Nonfluid density peritoneal and psoas collections, may represent complex ascites from bowel content, blood, or phlegmon, or combination thereof. Significant body wall edema. Hand X-Ray 05/23/24 13:08 IMPRESSION: 1. No acute fracture. 2. Likely chronic malalignment at the wrist and carpus including 1 cm ulnar minus variance and disruption of the proximal carpal row which is most likely sequela of old trauma. 3. 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 4. Multiple subarticular lucencies at the wrist and carpus most likely degenerative subchondral cyst although differential includes chronic erosion such as in the setting of gout. Chest X-Ray 05/23/24 21:33 IMPRESSION: Left basilar atelectasis versus pneumonia. Cardiomegaly with congestive kristian and interstitial thickening which may indicate cardiac decompensation and pulmonary edema. Clinical correlation advised. Pneumonitis is not excluded. Labs Labs: Laboratory Results - last 24 hr 05/26/24 05:20 WBC 13.0 H RBC 2.96 L Hgb 8.7 L Hct 27.8 L MCV 93.9 MCH 29.4 MCHC 31.3 L RDW 16.8 H Plt Count 262 MPV 11.9 H Immature Gran % (Auto) 4.1 H Neut % (Auto) 73.9 H Lymph % (Auto) 12.8 L Moody % (Auto) 6.3 Eos % (Auto) 2.4 Baso % (Auto) 0.5 Lymph # (Auto) 1.66 Moody # (Auto) 0.8 H Eos # (Auto) 0.3 Baso # (Auto) 0.1 Abs Immat Gran (auto) 0.53 H Absolute Neuts (auto) 9.6 H Absolute Nucleated RBC 0.000 Nucleated RBC % 0.0 Sodium 140 Potassium 3.5 Chloride 108 H Carbon Dioxide 28 Anion Gap 4 BUN 45 H Creatinine 1.51 H Estim Creat Clear Calc 54 Estimated GFR 45 L Glucose 112 H Calcium 7.9 L Magnesium 1.8 Total Bilirubin 0.6 AST 26 ALT 16 Alkaline Phosphatase 97 NT-Pro-B Natriuret Pep 2060 H Total Protein 6.0 L Albumin 2.4 L Quality VTE Prophylaxis VTE prophylaxis: mechanical ordered and pharmacologic ordered
[2024-05-26] MEDS: BUMETANIDE INJ 1 MG/4 ML VIAL IV PUSH ×2 (11:29→18:48)
[2024-05-26 14:00] VITALS: BP 150/66; PULSE 87; RESP 19; TEMP 36.4; O2SAT 96
--- NOTE | 2024-05-26 15:40 | PCSTNOTE ---
Please refer to the Modified Barium Swallow Evaluation in the EMR. The patient was seen for an MBS due to overt s/s of aspiration exhibited at the bedside. The patient was seated for a lateral view and presented with 5cc of thin liquid barium via a spoon and pudding consistency barium via a spoon. The thin liquids caused anterior oral leakage and premature spill over the tongue base. With the pudding, slow oral transit was noted but not spillage. Both contents pooled at the level of the vallecula; but the thin liquid spilled past the valleculae to the pyriform sinuses briefly. Upon triggering the swallow, poor tongue base retraction was exhibited as evidenced by max vallecular residue (with both consistencies); reduced laryngeal elevation as evidenced by laryngeal penetration during the swallow & pyriform sinus residue (with both consistencies); and reduced laryngeal closure as evidenced by aspiration during the swallow (with both consistencies). Max residual caused aspiration after the swallow as a portion of the contents gradually spilled into the airway (with both consistencies). Pt lacked sensitivity to dry swallow to clear contents. Pt also made no effort to eject contents from the airway. Impression: severe dysphagia refer to full report in EMR. Recommendations: Pt had previous PEG placement; continue use of PEG for all nutritional needs at this time. Continue dysphagia therapy. Thank you for this referral.
[2024-05-26 20:21] VITALS: BP 178/61; PULSE 83; RESP 16; TEMP 36.6; O2SAT 97
[2024-05-26 22:25] VITALS: BP 154/50
[2024-05-27] VITALS (15 sets, daily range): BP systolic 142–177; BP diastolic 52–75; PULSE 76–90; RESP 14–22; TEMP 36.4–37.3; O2SAT 94–100; BMI 10.0
[2024-05-27] MEDS: VANCOMYCIN 1,000 MG/NS 250 ML 1,000 MG/250 ML BAG 250 MG IVPB (07:17)
[2024-05-27 07:47] LABS: Basophils Absolute Auto 0.1 K/mm3 (0.0-0.1); Basophils Percent Auto 0.5 % (0.2-1.2); Eosinophils Absolute Auto 0.3 K/mm3 (0-0.3); Eosinophils Percent Auto 3.1 % (0-4.4); Hematocrit 28.9 % (42.0-52.0); Hemoglobin 8.7 g/dL (14.0-18.0); Immature Granulocyte Percent A 2.1 % (0-0.5); Lymphocytes Absolute Auto 1.32 K/mm3 (0.9-3.2); Mean Corpuscular HGB Conc 30.1 g/dl (32-36); Mean Corpuscular Hemoglobin 29.2 pg (26-34); Mean Platelet Volume 11.2 fl (7.4-10.4); Monocytes Absolute Auto 0.6 K/mm3 (0.1-0.6); Monocytes Percent Auto 6.5 % (2.6-8.5); Neutrophils Percent Auto 73.8 % (45.5-73.1); Platelet Count Result 240 k/mm3 (150-375); Red Blood Count 2.98 M/mm3 (4.6-6.20); Red Cell Distribution Width 16.7 % (11.5-14.5); White Blood Count 9.4 K/mm3 (4.5-10.0)
[2024-05-27 08:01] LABS: Alanine Aminotransferase 15 U/L (6-50); Albumin Level 2.6 g/dL (3.5-5.1); Alkaline Phosphatase 98 U/L (38-126); Anion Gap 4 mmol/L (4-12); Aspartate Amino Transferase 26 U/L (17-59); Bilirubin,Total 0.6 mg/dL (0.2-1.3); Blood Urea Nitrogen 45 mg/dL (9-20); Calcium 8.5 mg/dL (8.4-10.2); Carbon Dioxide 31 mmol/L (22-30); Chloride 105 mmol/L (98-107); Estimated CRCL calculation 53 ml/min; Estimated Glomerular Filt Rate 44; Glucose 122 mg/dL (65-110); Potassium 3.2 mmol/L (3.4-5.0); Sodium 140 mmol/L (137-145)
[2024-05-27 08:05] LABS: INR 1.2; Prothrombin Time 15.3 Seconds (11.1-14.7)
[2024-05-27 08:06] LABS: Partial Thromboplastin Time 33.5 Seconds (22.3-36.8)
[2024-05-27 08:10] LABS: NT Pro B Type Natriuretic Pept 1600 pg/mL (19.9-100)
[2024-05-27] MEDS: ALBUMIN HUMAN 25% 12.5 GM/50ML 50 ML IVPB ×2 (09:10→16:55)
[2024-05-27] MEDS: lisinopriL 20 MG TABLET 40 MG BY MOUTH (09:13)
[2024-05-27] MEDS: CALCIUM/VITAMIN D 500 MG/5 MCG (200 I.U.) TABLET PO (09:14)
[2024-05-27] MEDS: MUPIROCIN 2% OINT 22 GM TUBE 1 APPLIC EACH NARE ×2 (09:14→20:26)
[2024-05-27] MEDS: LIDOCAINE 5% PATCH 1 PATCH TRANSDERM (09:14)
[2024-05-27] MEDS: BUMETANIDE INJ 1 MG/4 ML VIAL IV PUSH ×2 (10:35→18:37)
--- NOTE | 2024-05-27 11:19 | P.PNIM_ITS ---
Progress Note: A&P Assessment and Plan (1) Sepsis: Code(s): A41.9 - Sepsis, unspecified organism Status: Resolved Assessment and Plan: Meets SIRS criteria: Tachycardia, Febrile, Leukocytosis Blood culture positive x2 from 05/18 repeat blood culture 05/22 still negative and 05/24 positive for GPC in clusters Continue IV Vancomycin Cardiology noted that patient is not a candidate for EMPERATRIZ MRI showed possible prevertebral abscess at the dens and possible discitis Called [facility] for possible transfer In the meantime IR consulted for possible psoas muscle fluid drainage monitor (2) MRSA (methicillin resistant staph aureus) culture positive: Code(s): Z22.322 - Carrier or suspected carrier of Methicillin resistant Staphylococcus aureus Status: Acute Assessment and Plan: see above care (3) Bacteremia: Code(s): R78.81 - Bacteremia Status: Acute Assessment and Plan: MRSA bacteremia Blood culture still positive 05/24 continue above care Continue repeat blood cultures (4) Perforated abdominal viscus: Code(s): R19.8 - Other specified symptoms and signs involving the digestive system and abdomen Status: Acute Assessment and Plan: Septic shock from peritonitis with perforated gastric ulcer s/p laparotomy with repair repeat CT chest/AP nodular opacities in the right upper lobe and right middle lobe, peritoneal gas ant to stomach with possible small adjacent abscess or fistulous tract Surgery evaluated and noted not abscess is persistent finding not big enough for drainage Continue Peg Tube feeding for now. Gen surgery following (5) Pneumonia: Code(s): J18.9 - Pneumonia, unspecified organism Status: Acute Assessment and Plan: * Nodular opacities in the right upper lobe and right middle lobe, likely representing small infectious/inflammatory foci. * Afebrile * Completed Cefepime, Flagyl * Continue Abx * WBC downtrending, WBC 13.0 from 29.0 (6) Malnutrition following gastrointestinal surgery: Code(s): K91.2 - Postsurgical malabsorption, not elsewhere classified Status: Acute Assessment and Plan: * Passed swallow study. * Patient advanced to soft diet per General surgery recommendation * Continue to encourage po intake * Bolus tube feeding via G tube * add reglan and Marinol (7) Dysphagia: Code(s): R13.10 - Dysphagia, unspecified Status: Acute Assessment and Plan: * See plan above * continue tube feeding * Advance diet per Speech (8) Right wrist pain: Code(s): M25.531 - Pain in right wrist Status: Acute Assessment and Plan: * Patient started c/o of right wrist pain on 05/23 * Likely related to repeated blood culture attempts * XR hand RT 2V: No acute fracture. 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 Multiple subarticular lucencies at the wrist and carpus * Physical exam benign (9) Acute kidney injury superimposed on stage 3b chronic kidney disease: Code(s): N17.9 - Acute kidney failure, unspecified; N18.32 - Chronic kidney disease, stage 3b Status: Acute Assessment and Plan: * baseline creatinine most likely around 1.5 * Nephrology following * Renal ultrasound was unremarkable for any acute issues. * Restarted Lasix, holding IVF * Cr 4.03 -> 1.51 * Continue trending (10) Hematoma: Code(s): T14.8XXA - Other injury of unspecified body region, initial encounter Status: Acute Assessment and Plan: * CT abdomen pelvis on 05/17/2024 shows: Intramuscular hematoma of the right iliopsoas and psoas major muscles, with additional irregular hematoma extending to the posterior right retroperitoneum. * Spoke with surgery likely noninfective * Lidocaine patch * Lovenox on hold, no recent found for therapeutic Lovenox, when patient was placed back on Lovenox likely benefit from the 40 mg (11) Pleural effusion: Code(s): J90 - Pleural effusion, not elsewhere classified Status: Acute Assessment and Plan: * Seen on CT * Chest x-ray dated compare * Likely due to 3rd spacing * Stable (12) Anemia: Code(s): D64.9 - Anemia, unspecified Status: Acute Assessment and Plan: Iron deficiency anemia on acute loss Stable * Trend CBC. * transfuse if hgb <7.0, or symptomatic * Iron replacement * hb 8.7 (13) HTN (hypertension): Code(s): I10 - Essential (primary) hypertension Status: Acute Assessment and Plan: Controlled * Continue Clonidine patch and Hydralazine PRN. * Trend BP (14) Generalized weakness: Code(s): R53.1 - Weakness Status: Acute Assessment and Plan: * PT/OT-maxi move use for transfer * Patient will likely need placement * No changes to current plan (15) Hypokalemia: Code(s): E87.6 - Hypokalemia Status: Acute Assessment and Plan: Improved * Trend labs * Replace as indicated (16) Hypernatremia: Code(s): E87.0 - Hyperosmolality and hypernatremia Status: Acute Assessment and Plan: Resolved Daily BMP Plan Possible Discitis vs osteomyelitis MRI spine showed increased disc signal at L1-2 through l4-5 also increase T1 signal with adjacent complex loculated right psoas muscle fluid collection, hematoma vs abscess Continue abx as above and follow up cultures called [facility] for possible transfer Psoas muscle hematoma vs abscess MRI reviewed awaiting [facility] response however IR consulted for drainage and culture continue above care DVT prophylaxis on Sq Lovenox Awaiting call back from [facility] for possible transfer Subjective Date/time seen: 05/27/24 11:19 Interval history: More awake today however blood culture from 05/24 showed MRSA Review of Systems Review of Systems: 12 systems were reviewed and are negativ e except for as per HPI. All systems reviewed & are unremarkable except as noted in HPI and below ROS unobtainable: Yes unobtainable due to endotracheal tube and unobtainable due to medical condition Exam Narrative: General: Ill appearing, appears stated age. HEENT: normocephalic, atraumatic. Mucous membranes moist. EOMI, PERRLA, bilateral sclera anicteric, no conjunctival injection. Respiratory: clear to ascultation bilaterally. No rales/rhonic/wheezes. Cardiovascular: Regular rate and rhythm, normal S1-S2 upon ascultation. No murmurs, rubs, or clicks. Capillary refill less than 3 second. Abdomen: Soft, round, no pulsatile masses, nondistended and nontender. No rebound, no guarding. Bowel sounds present to all four quadrants. No high pitch or tinkling sounds. Extremities: 2 + edema to both LE. No cyanosis, clubbing present. Pulses are palpable 2/2. Active ROM to all four extremities. Neuro: Alert and orientated x 4. PERRLA. Cranial nerves 2-12 intact without focal deficit. Skin: Warm, dry, and intact, without rash, erythema, or lesion. Psych: pleasant, cooperative, normal speech, normal affect, no hallucinations, no dysarthia Skin: G-tube site clean with G-tube in place and clamped. Gauze dressing in place in the right upper quadrant and left upper quadrant from previous ELSA drains, gauze dressing dry and intact. Const: General: comfortable, no acute distress and uncomfortable Other: Acutely ill-appearing, obese HENMT: Other: Mucous membranes are dry, head is normocephalic atraumatic, few missing teeth, bridge in the lower jaw Eyes: Other: Pupils are equal and reactive, no scleral icterus Neck: Other: No JVD, trachea midline Resp: Effort & Inspection: normal respiratory effort Auscultation: clear to auscultation bilaterally and diminished lung sounds Other: Cardio: Rate: regular rate Rhythm: regular rhythm Other: Telemetry SR 85. GI: Auscultation: normal bowel sounds Other: Gastrostomy tube in place with dry gauze dressing and skin around the G-tube without erythema or drainage. Incision dry with steri strips intact, no erythema. Slightly distended. : Other: Bowman catheter in place was a small amount of turbid yellow urine Urinary Catheter: Urinary Catheter: patent and draining Skin: Other: Generally cold to touch, 2nd cap refill, fingers and toes are cyanotic Neuro: Speech: normal speech Other: Pupils are reactive, equal Extrem: General: pedal edema bilaterally 2+ Other: 2+PP bilateral feet are warm. Psych: Mental Status: mental status grossly normal Affect: normal affect Other: Unable to assess due to patient condition Objective Data Vital Signs Vital Signs: Vital Signs - 24 hr 05/26/24 14:00 05/26/24 20:21 05/26/24 21:30 Temperature 97.6 F 97.8 F Pulse Rate 87 83 Respiratory Rate 19 16 Blood Pressure 150/66 H 178/61 H Pulse Oximetry 96 97 Oxygen Delivery Room Air 05/26/24 22:25 05/27/24 05:35 05/27/24 06:30 Temperature 97.6 F Pulse Rate 78 Respiratory Rate 20 Blood Pressure 154/50 H 156/67 H Pulse Oximetry 100 Oxygen Delivery Room Air 05/27/24 07:25 Temperature 97.5 F L Pulse Rate 76 Respiratory Rate 22 H Blood Pressure 177/61 H Pulse Oximetry 99 Oxygen Delivery Intake/Output Intake/Output: Intake & Output 05/24/24 05/25/24 05/26/24 05/27/24 23:59 23:59 23:59 23:59 Intake Total 1780 2420 350 980 Output Total 2450 800 5000 1150 Balance -670 0893 -0222 -582 Meds/Results Medications: Active Medications Generic Name Dose Route Start Last Admin Trade Name Freq PRN Reason Stop Dose Admin Acetaminophen 650 mg 04/26/24 22:19 04/26/24 22:57 Acetaminophen 650 Mg Suppository RECTAL 650 mg Q6H PRN Administration Mild Pain (1-3) or Fever Acetaminophen 650 mg 05/05/24 10:27 05/24/24 20:03 Acetaminophen Elixir 325 Mg/10.15 Ml Udc PO 650 mg Q6H PRN Administration Mild Pain (1-3) or Fever Alteplase, Recombinant 2 mg 05/22/24 21:26 05/22/24 21:57 Alteplase 2 Mg Vial (Cathflo) IV PUSH 2 mg ONCE PRN Administration Line Occlusion Artificial Tears 1 drop 04/27/24 08:37 05/23/24 09:35 Artificial Tears Ophth Soln 15 Ml Bottle EACH EYE 1 drop QID PRN Administration Dry Eye(s) Atorvastatin Calcium 20 mg 04/30/24 09:00 Atorvastatin 20 Mg Tablet BY MOUTH DAILY [facility] Benzocaine 1 lozenge 05/15/24 15:35 05/21/24 12:14 Benzocaine/Menthol (*Bkc) 18 Ea Lozenge PO 1 lozenge PRN PRN Administration Sore Throat Bumetanide 1 mg 05/26/24 09:00 05/27/24 10:35 Bumetanide Inj 1 Mg/4 Ml Vial IV PUSH 05/28/24 17:01 1 mg BID ROSY Administration Calcium Carbonate 500 mg 05/19/24 08:00 05/27/24 09:14 Calcium/Vitamin D 500 Mg/5 Mcg (200 I.U.) Tablet PO 500 mg DAILY@0800 [facility] Administration Clonidine HCl 1 patch 05/01/24 09:00 05/22/24 09:26 Clonidine 0.1 Mg/24 Hr Patch TRANSDERM 1 patch WEEKLY ROSY Administration Dextrose 12.5 gm 05/23/24 21:48 Dextrose 50% 25 Gm/50 Ml Syringe IV PUSH PRN PRN Hypoglycemia Protocol Dronabinol 2.5 mg 05/17/24 16:30 05/26/24 16:29 Dronabinol (*Crx) 2.5 Mg Capsule PO Not Given DAILY@1630 [facility] Enoxaparin Sodium 40 mg 05/25/24 09:00 05/26/24 09:47 Enoxaparin 40 Mg/0.4 Ml Syringe SUB-Q 40 mg DAILY ROSY Administration Epoetin Olu-epbx 10,000 units 05/14/24 11:05 05/26/24 09:47 Epoetin Olu-Epbx 10,000 Units/Ml Vial SUB-Q 10,000 units TUTHSA@09 [facility] Administration Glucagon 1 mg 05/23/24 21:48 Glucagon For Inj 1 Mg Vial IM PRN PRN Hypoglycemia Protocol Glucose 15 gm 05/23/24 21:48 Glucose Oral Gel 15 Gm Of Glucse In 37.5 Gm Tube PO PRN PRN Hypoglycemia Protocol Guaifenesin/Dextromethorphan 10 ml 05/15/24 10:07 05/22/24 01:23 Guaifenesin/Dextromethorphan 10 Ml Udc PO 10 ml Q4H PRN Administration Cough Hydralazine HCl 10 mg 04/25/24 08:00 05/26/24 21:42 Hydralazine Hcl 20 Mg/Ml Vial IV PUSH 10 mg Q4H PRN Administration Blood Pressure - High Vancomycin HCl 1,000 mg in 250 mls @ 250 mls/hr 05/25/24 06:00 05/27/24 08:17 Vancomycin 1,000 Mg/Ns 250 Ml IVPB Infused Q24H ROSY Infusion Albumin Human 50 mls @ 50 mls/hr 05/26/24 09:00 05/27/24 10:10 Albutein IVPB 05/28/24 17:59 Infused BID ROSY Infusion Ipratropium [place] 0.5 mg 05/04/24 09:32 05/17/24 10:11 Ipratropium Br 0.02% Inh Soln 0.5 Mg/2.5 Ml Vial INHALATION 0.5 mg Q6HRT PRN Administration Shortness Of Breath Levalbuterol HCl 0.63 mg 05/04/24 09:32 05/17/24 10:11 Levalbuterol Neb 1.25 Mg/3 Ml INHALATION 0.63 mg Q6HRT PRN Administration Shortness Of Breath Lidocaine 1 patch 05/18/24 09:00 05/27/24 09:14 Lidocaine 5% Patch TRANSDERM 1 patch DAILY ROSY Administration Lisinopril 40 mg 05/20/24 15:05 05/27/24 09:13 Lisinopril 20 Mg Tablet BY MOUTH 40 mg DAILY ROSY Administration Lorazepam 0.5 mg 05/16/24 13:48 05/22/24 09:54 Lorazepam (*Crx) 0.5 Mg Tablet PO 0.5 mg Q6H PRN Administration Anxiety Mupirocin 1 applic 05/23/24 21:00 05/27/24 09:14 Mupirocin 2% Oint 22 Gm Tube EACH NARE 05/28/24 09:01 1 applic Q12HR ROSY Administration Ondansetron HCl 4 mg 05/13/24 11:22 05/21/24 05:44 Ondansetron Inj 4 Mg/2 Ml Vial IV PUSH 4 mg Q6H PRN Administration Nausea And Vomiting Pantoprazole Sodium 40 mg 05/23/24 09:00 05/27/24 09:14 Pantoprazole 40 Mg Tablet PO Not Given QAM ROSY Sodium Chloride 10 ml 05/04/24 14:15 Central Line Flush IV PUSH PRN PRN with TPN bag changes Sodium Chloride 20 ml 05/04/24 14:15 05/25/24 04:29 Central Line Flush IV PUSH 20 ml PRN PRN Administration after blood draws Radiology Results: ITS Impressions Chest/Abdomen/Pelvis CTA 04/22/24 18:10 IMPRESSION: Perforated viscus with a large amount of free air and fluid, with mural thickening in the distal stomach and multiple punctate foci of extraluminal air in this area for which site of perforation is suspected. Renal Ultrasound 04/24/24 11:58 IMPRESSION: Simple cyst in the left kidney upper pole. Other appearances are unremarkable. Lower Extremity CTA 05/02/24 16:36 IMPRESSION: 1. Scattered atherosclerotic plaque in the arteries of the left lower limb as detailed above without a discrete hemodynamic significant stenosis. Runoff below the ankle in the left posterior tibial artery this supplies the foot. Atretic distal peroneal and anterior tibial arteries with intraluminal contrast becoming indiscernible at the level of the ankle and with no appreciable contrast in the dorsalis pedis artery. Upper GI Series 05/09/24 09:31 IMPRESSION: 1. Ulcer of the gastric antrum with contained extraluminal contrast similar to 04/28/2024. The extraluminal contrast distribution is worse than typically seen after [place]rence patch repair. Abdomen CT 05/09/24 15:27 IMPRESSION: Redemonstration of a tract extending from the posterior superior margin of the antrum of the stomach only partially filled with oral contrast, perhaps demonstrating early healing. Abdomen/Pelvis CT 05/17/24 09:03 Impression: Persistent wall thickening of the gastric antrum/duodenum with surrounding haziness, compatible postoperative change. There is persistent irregular tract with small amount of fluid and external air extending from the gastric antrum superiorly/anteriorly, which could reflect abscess or persistent contained perforation. No extraluminal contrast seen, and no oral contrast seen within this collection. Intramuscular hematoma of the right iliopsoas and psoas major muscles, with additional irregular hematoma extending to the posterior right retroperitoneum. Bilateral fat-containing inguinal hernias. Small bilateral pleural effusions. Chest/Abdomen/Pelvis CT 05/22/24 14:37 IMPRESSION: Nodular opacities in the right upper lobe and right middle lobe, likely representing small infectious/inflammatory foci. Segmental bibasilar atelectasis/consolidation. Small bilateral simple pleural effusions. Cardiomegaly with trace pericardial fluid. Peritoneal gas anterior to the stomach secondary to antral perforation, with possible small adjacent abscess or fistulous tract. Nonfluid density peritoneal and psoas collections, may represent complex ascites from bowel content, blood, or phlegmon, or combination thereof. Significant body wall edema. Hand X-Ray 05/23/24 13:08 IMPRESSION: 1. No acute fracture. 2. Likely chronic malalignment at the wrist and carpus including 1 cm ulnar minus variance and disruption of the proximal carpal row which is most likely sequela of old trauma. 3. 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 4. Multiple subarticular lucencies at the wrist and carpus most likely deg enerative subchondral cyst although differential includes chronic erosion such as in the setting of gout. Chest X-Ray 05/23/24 21:33 IMPRESSION: Left basilar atelectasis versus pneumonia. Cardiomegaly with congestive kristian and interstitial thickening which may indicate cardiac decompensation and pulmonary edema. Clinical correlation advised. Pneumonitis is not excluded. Modified Barium Swallow 05/26/24 15:19 IMPRESSION: Oropharyngeal dysphagia with recurrent laryngeal penetration and aspiration. Please correlate with speech pathologist findings and specific feeding recommendations. Cervical Spine MRI 05/26/24 17:21 IMPRESSION: 1. Prevertebral/retropharyngeal soft tissue swelling anterior to the mid to upper cervical spine with peripheral enhancing fluid collection potentially a small abscess just right of midline at the level of the base of the dens. Findings were discussed with Dashawn Stevens, the nurse caring for the patient, at 6:18 PM. 2. Severe cervical spondylosis with no evident discitis or osteomyelitis. Thoracic Spine MRI 05/26/24 17:45 IMPRESSION: 1. Moderate thoracic spondylosis with no evident discitis or ostomy myelitis. 2. Small bilateral pleural effusions with dependent atelectasis versus pneumonia in the bilateral lower lobes. Lumbar Spine MRI 05/26/24 17:53 IMPRESSION: 1. Severe lumbar spondylosis with prominent increased disc signal at L1-L2 through L4-L5. Increased fluid signal is likely artifact of feculent phenomena which is seen at the same levels on locations on the prior CT although could not absent exclude discitis given the presence of a nearby complex loculated right psoas muscle fluid collection with increased T1 signal suggesting this is due to hematoma although this could potentially be secondarily infected. Bone marrow signal remains normal with no measurable enhancement along the endplates but no appreciable edema to more specifically elevated concern for discitis or osteomyelitis. Would consider percutaneous abscess drainage with Gram stain and culture of the right psoas fluid collection. Findings were discussed with Dashawn Stevens, the nurse caring for the patient, at 6:18 PM. Labs Labs: Laboratory Results - last 24 hr 05/27/24 05/27/24 05:28 07:39 WBC 9.4 RBC 2.98 L Hgb 8.7 L Hct 28.9 L MCV 97.0 MCH 29.2 MCHC 30.1 L RDW 16.7 H Plt Count 240 MPV 11.2 H Immature Gran % (Auto) 2.1 H Neut % (Auto) 73.8 H Lymph % (Auto) 14.0 L Blair % (Auto) 6.5 Eos % (Auto) 3.1 Baso % (Auto) 0.5 Lymph # (Auto) 1.32 Blair # (Auto) 0.6 Eos # (Auto) 0.3 Baso # (Auto) 0.1 Abs Immat Gran (auto) 0.20 H Absolute Neuts (auto) 7.0 H Absolute Nucleated RBC 0.000 Nucleated RBC % 0.0 PT 15.3 H INR 1.2 APTT 33.5 Sodium 140 Potassium 3.2 L Chloride 105 Carbon Dioxide 31 H Anion Gap 4 BUN 45 H Creatinine 1.53 H Estim Creat Clear Calc 53 Estimated GFR 44 L Glucose 122 H Calcium 8.5 Total Bilirubin 0.6 AST 26 ALT 15 Alkaline Phosphatase 98 NT-Pro-B Natriuret Pep 1600 H Total Protein 6.0 L Albumin 2.6 L Vancomycin Trough 19.0 Quality VTE Prophylaxis VTE prophylaxis: mechanical ordered and pharmacologic ordered
--- NOTE | 2024-05-27 11:57 | PCNFU ---
Nutrition Follow-Up Complete: Inadequate oral intake related to altered GI function as evidenced by need for full TPN goal: Meet estimated nutrition needs Patient is progressing towards goal. We will continue current goal. Pt current nutrition is Nepro at 240 ml q 6 hours. Last recorded weight is 138 kg Bowel Motility: Last reported BM 05/27 Labs Reviewed:Glu 122, BUN 45, K 5.3, Alb 2.6 Meds Noted:Reglan, Protonix, Vancomycin. Skin: WNL Additional Notes: Discussed with nursing today. G tube feedings only. MBS 05/26 recommending non oral feedings. Recommending increasing tube feedings from 240 ml to 260 ml QID. Total Nutrition: 1872 kcal/84 gm protein/756 ml water. Flush 100 ml QID. Tube feedings meeting 100% kcal needs at 15 kcal/kg and 88% kcal needs at 0.8-1.0 gm/kg protein. Monitoring tube feeding tolerance, GI function, plan of care, weights, labs, orders Follow up Thursday/Thursday
[2024-05-27] MEDS: amLODIPine BESYLATE 5 MG TABLET PO (12:49)
--- NOTE | 2024-05-27 12:56 | PM.PNGS ---
Progress Note: A&P Assessment and Plan (1) MRSA bacteremia: Code(s): R78.81 - Bacteremia; B95.62 - Methicillin resistant Staphylococcus aureus infection as the cause of diseases classified elsewhere Status: Acute Assessment and Plan: Although both blood cultures from 05/22/2024 were negative, repeat blood cultures on 05/24/2024 show 1 of 2 cultures positive for MRSA. Cultures collected again yesterday but no results as yet. Source of bacteremia unclear. Patient definitely more awake today when I saw him then he has been. He was handling his secretions better and was even answering some questions. Yesterday he had a new PICC line placed in his right arm and the previous PICC line removed. Other per central sources of infection are a small collection by C2 vertebra that could possibly be an abscess. He also has a fluid collection on the right psoas area which was to be drained percutaneously under CT guidance today but this will after to be postponed due to staffing shortage is and abundance of studies needed to be done. Hospitalist considering transfer to [facility] noted. (2) Abdominal fluid collection: Code(s): R18.8 - Other ascites Status: Acute Assessment and Plan: Right psoas fluid collection noted on MRI with comparison to CT scan. Was to have CT-guided drainage today but postponed due to staffing shortage is. (3) Abnormal MRI, neck: Code(s): R93.89 - Abnormal findings on diagnostic imaging of other specified body structures Status: Acute Assessment and Plan: Small collection around C2, possibly an abscess, noted on MRI of the neck (4) Perforated gastric ulcer: Onset Date: 04/2024 Qualifiers: Gastric ulcer chronicity: acute Qualified Code(s): K25.1 - Acute gastric ulcer with perforation Code(s): K25.5 - Chronic or unspecified gastric ulcer with perforation Status: Acute Assessment and Plan: Surgically repaired 04/22/2024 with omental patch. Gastrostomy tube placed as well. 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 Hopefully can add back oral feedings if mental status maintained. Subjective Subjective Date/Time Seen: 05/27/24 12:56 Patient reports: no new complaints, feels better, bowel movement and afebrile Review of Systems Review of Systems: ROS unobtainable: Yes unobtainable due to medical condition Exam Const: General: cooperative and awake (More awake today, not gurgling, can answer some questions) Nutritional Appearance: edematous GI: Inspection: Abdominal wall edema, incision (Dry and healing nicely, G-tube site looks good) and obesity GI Palp: Yes Soft to palpation and No Tenderness to palpation present (GI) Auscultation: normal bowel sounds Objective Data Vital Signs Vital Signs: Vital Signs - 24 hr 05/26/24 14:00 05/26/24 20:21 05/26/24 21:30 Temperature 36.4 C 36.6 C Pulse Rate 87 83 Respiratory Rate 19 16 Blood Pressure 150/66 H 178/61 H Pulse Oximetry 96 97 Oxygen Delivery Room Air 05/26/24 22:25 05/27/24 05:35 05/27/24 06:30 Temperature 36.4 C Pulse Rate 78 Respiratory Rate 20 Blood Pressure 154/50 H 156/67 H Pulse Oximetry 100 Oxygen Delivery Room Air 05/27/24 07:25 Temperature 36.4 C L Pulse Rate 76 Respiratory Rate 22 H Blood Pressure 177/61 H Pulse Oximetry 99 Oxygen Delivery Intake/Output Intake/Output: Intake & Output 05/24/24 05/25/24 05/26/24 05/27/24 23:59 23:59 23:59 23:59 Intake Total 1780 2420 350 980 Output Total 2450 800 5000 1150 Balance -670 1620 -4650 -170 Meds/Results Medications: Active Medications Generic Name Dose Route Start Last Admin Trade Name Freq PRN Reason Stop Dose Admin Acetaminophen 650 mg 04/26/24 22:19 04/26/24 22:57 Acetaminophen 650 Mg Suppository RECTAL 650 mg Q6H PRN Administration Mild Pain (1-3) or Fever Acetaminophen 650 mg 05/05/24 10:27 05/24/24 20:03 Acetaminophen Elixir 325 Mg/10.15 Ml Udc PO 650 mg Q6H PRN Administration Mild Pain (1-3) or Fever Alteplase, Recombinant 2 mg 05/22/24 21:26 05/22/24 21:57 Alteplase 2 Mg Vial (Cathflo) IV PUSH 2 mg ONCE PRN Administration Line Occlusion Amlodipine Besylate 5 mg 05/27/24 12:15 05/27/24 12:49 Amlodipine Besylate 5 Mg Tablet PO 5 mg DAILY ROSY Administration Artificial Tears 1 drop 04/27/24 08:37 05/23/24 09:35 Artificial Tears Ophth Soln 15 Ml Bottle EACH EYE 1 drop QID PRN Administration Dry Eye(s) Atorvastatin Calcium 20 mg 04/30/24 09:00 Atorvastatin 20 Mg Tablet BY MOUTH DAILY ROSY Benzocaine 1 lozenge 05/15/24 15:35 05/21/24 12:14 Benzocaine/Menthol (*Bkc) 18 Ea Lozenge PO 1 lozenge PRN PRN Administration Sore Throat Bumetanide 1 mg 05/26/24 09:00 05/27/24 10:35 Bumetanide Inj 1 Mg/4 Ml Vial IV PUSH 05/28/24 17:01 1 mg BID ROSY Administration Calcium Carbonate 500 mg 05/19/24 08:00 05/27/24 09:14 Calcium/Vitamin D 500 Mg/5 Mcg (200 I.U.) Tablet PO 500 mg DAILY@0800 [facility] Administration Clonidine HCl 1 patch 05/01/24 09:00 05/22/24 09:26 Clonidine 0.1 Mg/24 Hr Patch TRANSDERM 1 patch WEEKLY [facility] Administration Dextrose 12.5 gm 05/23/24 21:48 Dextrose 50% 25 Gm/50 Ml Syringe IV PUSH PRN PRN Hypoglycemia Protocol Dronabinol 2.5 mg 05/17/24 16:30 05/26/24 16:29 Dronabinol (*Crx) 2.5 Mg Capsule PO Not Given DAILY@1630 [facility] Enoxaparin Sodium 40 mg 05/25/24 09:00 05/26/24 09:47 Enoxaparin 40 Mg/0.4 Ml Syringe SUB-Q 40 mg DAILY [facility] Administration Epoetin Olu-epbx 10,000 units 05/14/24 11:05 05/26/24 09:47 Epoetin Olu-Epbx 10,000 Units/Ml Vial SUB-Q 10,000 units TUTHSA@09 [facility] Administration Glucagon 1 mg 05/23/24 21:48 Glucagon For Inj 1 Mg Vial IM PRN PRN Hypoglycemia Protocol Glucose 15 gm 05/23/24 21:48 Glucose Oral Gel 15 Gm Of Glucse In 37.5 Gm Tube PO PRN PRN Hypoglycemia Protocol Guaifenesin/Dextromethorphan 10 ml 05/15/24 10:07 05/22/24 01:23 Guaifenesin/Dextromethorphan 10 Ml Udc PO 10 ml Q4H PRN Administration Cough Hydralazine HCl 10 mg 04/25/24 08:00 05/26/24 21:42 Hydralazine Hcl 20 Mg/Ml Vial IV PUSH 10 mg Q4H PRN Administration Blood Pressure - High Vancomycin HCl 1,000 mg in 250 mls @ 250 mls/hr 05/25/24 06:00 05/27/24 08:17 Vancomycin 1,000 Mg/Ns 250 Ml IVPB Infused Q24H ROSY Infusion Albumin Human 50 mls @ 50 mls/hr 05/26/24 09:00 05/27/24 10:10 Albutein IVPB 05/28/24 17:59 Infused BID ROSY Infusion Ipratropium [place] 0.5 mg 05/04/24 09:32 05/17/24 10:11 Ipratropium Br 0.02% Inh Soln 0.5 Mg/2.5 Ml Vial INHALATION 0.5 mg Q6HRT PRN Administration Shortness Of Breath Levalbuterol HCl 0.63 mg 05/04/24 09:32 05/17/24 10:11 Levalbuterol Neb 1.25 Mg/3 Ml INHALATION 0.63 mg Q6HRT PRN Administration Shortness Of Breath Lidocaine 1 patch 05/18/24 09:00 05/27/24 09:14 Lidocaine 5% Patch TRANSDERM 1 patch DAILY ROSY Administration Lisinopril 40 mg 05/20/24 15:05 05/27/24 09:13 Lisinopril 20 Mg Tablet BY MOUTH 40 mg DAILY ROSY Administration Lorazepam 0.5 mg 05/16/24 13:48 05/22/24 09:54 Lorazepam (*Crx) 0.5 Mg Tablet PO 0.5 mg Q6H PRN Administration Anxiety Mupirocin 1 applic 05/23/24 21:00 05/27/24 09:14 Mupirocin 2% Oint 22 Gm Tube EACH NARE 05/28/24 09:01 1 applic Q12HR ROSY Administration Ondansetron HCl 4 mg 05/13/24 11:22 05/21/24 05:44 Ondansetron Inj 4 Mg/2 Ml Vial IV PUSH 4 mg Q6H PRN Administration Nausea And Vomiting Pantoprazole Sodium 40 mg 05/23/24 09:00 05/27/24 09:14 Pantoprazole 40 Mg Tablet PO Not Given QAM ROSY Sodium Chloride 10 ml 05/04/24 14:15 Central Line Flush IV PUSH PRN PRN with TPN bag changes Sodium Chloride 20 ml 05/04/24 14:15 05/25/24 04:29 Central Line Flush IV PUSH 20 ml PRN PRN Administration after blood draws Radiology Results: ITS Impressions Chest/Abdomen/Pelvis CTA 04/22/24 18:10 IMPRESSION: Perforated viscus with a large amount of free air and fluid, with mural thickening in the distal stomach and multiple punctate foci of extraluminal air in this area for which site of perforation is suspected. Renal Ultrasound 04/24/24 11:58 IMPRESSION: Simple cyst in the left kidney upper pole. Other appearances are unremarkable. Lower Extremity CTA 05/02/24 16:36 IMPRESSION: 1. Scattered atherosclerotic plaque in the arteries of the left lower limb as detailed above without a discrete hemodynamic significant stenosis. Runoff below the ankle in the left posterior tibial artery this supplies the foot. Atretic distal peroneal and anterior tibial arteries with intraluminal contrast becoming indiscernible at the level of the ankle and with no appreciable contrast in the dorsalis pedis artery. Upper GI Series 05/09/24 09:31 IMPRESSION: 1. Ulcer of the gastric antrum with contained extraluminal contrast similar to 04/28/2024. The extraluminal contrast distribution is worse than typically seen after [place]rence patch repair. Abdomen CT 05/09/24 15:27 IMPRESSION: Redemonstration of a tract extending from the posterior superior margin of the antrum of the stomach only partially filled with oral contrast, perhaps demonstrating early healing. Abdomen/Pelvis CT 05/17/24 09:03 Impression: Persistent wall thickening of the gastric antrum/duodenum with surrounding haziness, compatible postoperative change. There is persistent irregular tract with small amount of fluid and external air extending from the gastric antrum superiorly/anteriorly, which could reflect abscess or persistent contained perforation. No extraluminal contrast seen, and no oral contrast seen within this collection. Intramuscular hematoma of the right iliopsoas and psoas major muscles, with additional irregular hematoma extending to the posterior right retroperitoneum. Bilateral fat-containing inguinal hernias. Small bilateral pleural effusions. Chest/Abdomen/Pelvis CT 05/22/24 14:37 IMPRESSION: Nodular opacities in the right upper lobe and right middle lobe, likely representing small infectious/inflammatory foci. Segmental bibasilar atelectasis/consolidation. Small bilateral simple pleural effusions. Cardiomegaly with trace pericardial fluid. Peritoneal gas anterior to the stomach secondary to antral perforation, with possible small adjacent abscess or fistulous tract. Nonfluid density peritoneal and psoas collections, may represent complex ascites from bowel content, blood, or phlegmon, or combination thereof. Significant body wall edema. Hand X-Ray 05/23/24 13:08 IMPRESSION: 1. No acute fracture. 2. Likely chronic malalignment at the wrist and carpus including 1 cm ulnar minus variance and disruption of the proximal carpal row which is most likely sequela of old trauma. 3. 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 4. Multiple subarticular lucencies at the wrist and carpus most likely degenerative subchondral cyst although differential includes chronic erosion such as in the setting of gout. Chest X-Ray 05/23/24 21:33 IMPRESSION: Left basilar atelectasis versus pneumonia. Cardiomegaly with congestive kristian and interstitial thickening which may indicate cardiac decompensation and pulmonary edema. Clinical correlation advised. Pneumonitis is not excluded. Modified Barium Swallow 05/26/24 15:19 IMPRESSION: Oropharyngeal dysphagia with recurrent laryngeal penetration and aspiration. Please correlate with speech pathologist findings and specific feeding recommendations. Cervical Spine MRI 05/26/24 17:21 IMPRESSION: 1. Prevertebral/retropharyngeal soft tissue swelling anterior to the mid to upper cervical spine with peripheral enhancing fluid collection potentially a small abscess just right of midline at the level of the base of the dens. Findings were discussed with Dashawn Stevens, the nurse caring for the patient, at 6:18 PM. 2. Severe cervical spondylosis with no evident discitis or osteomyelitis. Thoracic Spine MRI 05/26/24 17:45 IMPRESSION: 1. Moderate thoracic spondylosis with no evident discitis or ostomy myelitis. 2. Small bilateral pleural effusions with dependent atelectasis versus pneumonia in the bilateral lower lobes. Lumbar Spine MRI 05/26/24 17:53 IMPRESSION: 1. Severe lumbar spondylosis with prominent increased disc signal at L1-L2 through L4-L5. Increased fluid signal is likely artifact of feculent phenomena which is seen at the same levels on locations on the prior CT although could not absent exclude discitis given the presence of a nearby complex loculated right psoas muscle fluid collection with increased T1 signal suggesting this is due to hematoma although this could potentially be secondarily infected. Bone marrow signal remains normal with no measurable enhancement along the endplates but no appreciable edema to more specifically elevated concern for discitis or osteomyelitis. Would consider percutaneous abscess drainage with Gram stain and culture of the right psoas fluid collection. Findings were discussed with Dashawn Stevens, the nurse caring for the patient, at 6:18 PM. Labs Labs: Laboratory Results - last 24 hr 05/27/24 05/27/24 05:28 07:39 WBC 9.4 RBC 2.98 L Hgb 8.7 L Hct 28.9 L MCV 97.0 MCH 29.2 MCHC 30.1 L RDW 16.7 H Plt Count 240 MPV 11.2 H Immature Gran % (Auto) 2.1 H Neut % (Auto) 73.8 H Lymph % (Auto) 14.0 L Bent % (Auto) 6.5 Eos % (Auto) 3.1 Baso % (Auto) 0.5 Lymph # (Auto) 1.32 Bent # (Auto) 0.6 Eos # (Auto) 0.3 Baso # (Auto) 0.1 Abs Immat Gran (auto) 0.20 H Absolute Neuts (auto) 7.0 H Absolute Nucleated RBC 0.000 Nucleated RBC % 0.0 PT 15.3 H INR 1.2 APTT 33.5 Sodium 140 Potassium 3.2 L Chloride 105 Carbon Dioxide 31 H Anion Gap 4 BUN 45 H Creatinine 1.53 H Estim Creat Clear Calc 53 Estimated GFR 44 L Glucose 122 H Calcium 8.5 Total Bilirubin 0.6 AST 26 ALT 15 Alkaline Phosphatase 98 NT-Pro-B Natriuret Pep 1600 H Total Protein 6.0 L Albumin 2.6 L Vancomycin Trough 19.0
--- NOTE | 2024-05-27 15:28 | WPDMODSED ---
Moderate Sedation Note-Pt Data Patient Data Diagnosis: right psoas abscess Present Complaint: right psoas abscess Procedure to be performed/Plan: percutaneous abscess drainage catheter placement Allergies Allergy/AdvReac Type Severity Reaction Status Date / Time cephalexin Allergy Severe Rash Verified 05/24/24 14:35 nickel Allergy Mild Other Verified 12/01/23 15:22 cetirizine (From [facility]) Allergy Unknown Unknown Verified 04/24/24 14:15 Home Medications ?Medication ?Instructions ?Recorded ?Confirmed ?Type aspirin 325 mg tablet 325 mg PO DAILY PRN fever 09/13/21 04/24/24 History fexofenadine 180 mg tablet 180 mg PO DAILY PRN contact 09/13/21 04/24/24 History dermititis gabapentin 300 mg capsule 600 mg PO Q12H 12/20/21 04/24/24 History hydrochlorothiazide 25 mg tablet 25 mg PO DAILY 07/23/23 04/24/24 History lisinopril 40 mg tablet See Rx Instructions .Route 11/09/23 04/23/24 Rx .COMPLEX #90 tabs furosemide 40 mg tablet 40 mg PO QAM #90 tabs 02/03/24 04/23/24 Rx tramadol 50 mg tablet 50 mg PO Q4H PRN pain #90 tabs 02/08/24 04/23/24 Rx diclofenac sodium 75 mg See Rx Instructions .Route 02/16/24 04/23/24 Rx tablet,delayed release .COMPLEX #180 tabs atorvastatin 20 mg tablet See Rx Instructions .Route 03/06/24 04/23/24 Rx .COMPLEX #90 tabs Current Medications: Active Medications Acetaminophen (Acetaminophen 650 Mg Suppository) 650 mg RECTAL Q6H PRN PRN Reason: Mild Pain (1-3) or Fever Last Admin: 04/26/24 22:57 Dose: 650 mg Acetaminophen (Acetaminophen Elixir 325 Mg/10.15 Ml Udc) 650 mg PO Q6H PRN PRN Reason: Mild Pain (1-3) or Fever Last Admin: 05/24/24 20:03 Dose: 650 mg Alteplase, Recombinant (Alteplase 2 Mg Vial (Cathflo)) 2 mg IV PUSH ONCE PRN PRN Reason: Line Occlusion Last Admin: 05/22/24 21:57 Dose: 2 mg Amlodipine Besylate (Amlodipine Besylate 5 Mg Tablet) 5 mg PO DAILY ROSY Last Admin: 05/27/24 12:49 Dose: 5 mg Artificial Tears (Artificial Tears Ophth Soln 15 Ml Bottle) 1 drop EACH EYE QID PRN PRN Reason: Dry Eye(s) Last Admin: 05/23/24 09:35 Dose: 1 drop Atorvastatin Calcium (Atorvastatin 20 Mg Tablet) 20 mg BY MOUTH DAILY [facility] Benzocaine (Benzocaine/Menthol (*Bkc) 18 Ea Lozenge) 1 lozenge PO PRN PRN PRN Reason: Sore Throat Last Admin: 05/21/24 12:14 Dose: 1 lozenge Bumetanide (Bumetanide Inj 1 Mg/4 Ml Vial) 1 mg IV PUSH BID [facility] Stop: 05/28/24 17:01 Last Admin: 05/27/24 10:35 Dose: 1 mg Calcium Carbonate (Calcium/Vitamin D 500 Mg/5 Mcg (200 I.U.) Tablet) 500 mg PO DAILY@0800 [facility] Last Admin: 05/27/24 09:14 Dose: 500 mg Clonidine HCl (Clonidine 0.1 Mg/24 Hr Patch) 1 patch TRANSDERM WEEKLY [facility] Last Admin: 05/22/24 09:26 Dose: 1 patch Dextrose (Dextrose 50% 25 Gm/50 Ml Syringe) 12.5 gm IV PUSH PRN PRN; Protocol PRN Reason: Hypoglycemia Dronabinol (Dronabinol (*Crx) 2.5 Mg Capsule) 2.5 mg PO DAILY@1630 [facility] Last Admin: 05/26/24 16:29 Dose: Not Given Enoxaparin Sodium (Enoxaparin 40 Mg/0.4 Ml Syringe) 40 mg SUB-Q DAILY [facility] Last Admin: 05/26/24 09:47 Dose: 40 mg Epoetin Olu-epbx (Epoetin Olu-Epbx 10,000 Units/Ml Vial) 10,000 units SUB-Q TUTHSA@09 [facility] Last Admin: 05/26/24 09:47 Dose: 10,000 units Glucagon (Glucagon For Inj 1 Mg Vial) 1 mg IM PRN PRN; Protocol PRN Reason: Hypoglycemia Glucose (Glucose Oral Gel 15 Gm Of Glucse In 37.5 Gm Tube) 15 gm PO PRN PRN; Protocol PRN Reason: Hypoglycemia Guaifenesin/Dextromethorphan (Guaifenesin/Dextromethorphan 10 Ml Udc) 10 ml PO Q4H PRN PRN Reason: Cough Last Admin: 05/22/24 01:23 Dose: 10 ml Hydralazine HCl (Hydralazine Hcl 20 Mg/Ml Vial) 10 mg IV PUSH Q4H PRN PRN Reason: Blood Pressure - High Last Admin: 05/26/24 21:42 Dose: 10 mg Vancomycin HCl (Vancomycin 1,000 Mg/Ns 250 Ml) 1,000 mg in 250 mls @ 250 mls/hr IVPB Q24H [facility] Last Infusion: 05/27/24 08:17 Dose: Infused Albumin Human (Albutein) 50 mls @ 50 mls/hr IVPB BID [facility] Stop: 05/28/24 17:59 Last Infusion: 05/27/24 10:10 Dose: Infused Ipratropium [place] (Ipratropium Br 0.02% Inh Soln 0.5 Mg/2.5 Ml Vial) 0.5 mg INHALATION Q6HRT PRN PRN Reason: Shortness Of Breath Last Admin: 05/17/24 10:11 Dose: 0.5 mg Levalbuterol HCl (Levalbuterol Neb 1.25 Mg/3 Ml) 0.63 mg INHALATION Q6HRT PRN PRN Reason: Shortness Of Breath Last Admin: 05/17/24 10:11 Dose: 0.63 mg Lidocaine (Lidocaine 5% Patch) 1 patch TRANSDERM DAILY [facility] Last Admin: 05/27/24 09:14 Dose: 1 patch Lisinopril (Lisinopril 20 Mg Tablet) 40 mg BY MOUTH DAILY [facility] Last Admin: 05/27/24 09:13 Dose: 40 mg Lorazepam (Lorazepam (*Crx) 0.5 Mg Tablet) 0.5 mg PO Q6H PRN PRN Reason: Anxiety Last Admin: 05/22/24 09:54 Dose: 0.5 mg Mupirocin (Mupirocin 2% Oint 22 Gm Tube) 1 applic EACH NARE Q12HR [facility] Stop: 05/28/24 09:01 Last Admin: 05/27/24 09:14 Dose: 1 applic Ondansetron HCl (Ondansetron Inj 4 Mg/2 Ml Vial) 4 mg IV PUSH Q6H PRN PRN Reason: Nausea And Vomiting Last Admin: 05/21/24 05:44 Dose: 4 mg Pantoprazole Sodium (Pantoprazole 40 Mg Tablet) 40 mg PO QAM [facility] Last Admin: 05/27/24 09:14 Dose: Not Given Sodium Chloride (Central Line Flush) 10 ml IV PUSH PRN PRN PRN Reason: with TPN bag changes Sodium Chloride (Central Line Flush) 20 ml IV PUSH PRN PRN PRN Reason: after blood draws Last Admin: 05/25/24 04:29 Dose: 20 ml Sedation/Anesthesia: No previous sedation/anesthesia problems (including family history). [facility] Past Medical History Medical History (Updated 05/27/24 @ 13:16 by Smith Aguiar MD) Perforated gastric ulcer (04/2024) Repair 05/03 PAD (peripheral artery disease) Acute perforated appendicitis Piriformis syndrome Trochanteric bursitis, right hip Lumbar stenosis Low Back Pain Arthritis Colon polyps (07/02/22) Umbilical hernia HTN (hypertension) Hypercholesterolemia Surgical History Surgical History (Updated 04/24/24 @ 13:25 by Ibrahima Bird MD) History of abdominal surgery (04/2024) Repair perforated gastric ulcer History of appendectomy (06/2022) Perforated appemdix H/O Spinal surgery (1984) H/O umbilical hernia repair (2011) Hx of tonsillectomy Family History Family History Father Acute myocardial infarction Heart disease Alzheimer disease Mother Acute myocardial infarction Heart disease Alzheimer disease Social History Social History Social History: Code status: Full code Surrogate decision maker: Erika () Smoking status: Never smoker Second hand tobacco smoke exposure: Yes Alcohol intake: never Alcohol use details: Occasional Substance use: never Substance use type: does not use Lack of Transportation: No Lack of Food: Never True Current Housing: I Have Housing Concerned About Future Housing: No Difficulty Paying Gas/Electric Bills: No Difficulty Paying for Meds: No Currently Unemployed: No Education: Master's Degree or Higher Difficulty w/ Childcare or Family Care: No Living arrangements: with family Occupation/Education: retired Gender identity (if verbalized by the patient): Male Spiritual care concerns: No Agree to blood products: Yes Mod Sed Physical Exam Physical Exam Pre Procedural Exam: Normal: Lungs, Heart Rate, Heart Rhythm and Abdomen and Variation: Appearance (somnolent) Hours since solid foods: 12 Hours since liquid intake: 12 Mallampati Classification: class III Internal Medicine - PN: Obj Da Vital Signs Vital Signs: Vital Signs - 24 hr 05/26/24 20:21 05/26/24 21:30 05/26/24 22:25 Temperature 97.8 F Pulse Rate 83 Respiratory Rate 16 Blood Pressure 178/61 H 154/50 H Pulse Oximetry 97 Oxygen Delivery Room Air 05/27/24 05:35 05/27/24 06:30 05/27/24 07:25 Temperature 97.6 F 97.5 F L Pulse Rate 78 76 Respiratory Rate 20 22 H Blood Pressure 156/67 H 177/61 H Pulse Oximetry 100 99 Oxygen Delivery Room Air 05/27/24 12:49 05/27/24 13:03 05/27/24 13:55 Temperature 97.5 F L Pulse Rate 81 Respiratory Rate 20 Blood Pressure 175/65 H Pulse Oximetry 99 Oxygen Delivery Room Air Room Air 05/27/24 13:55 Temperature 97.5 F L Pulse Rate 81 Respiratory Rate 20 Blood Pressure 175/65 H Pulse Oximetry 99 Oxygen Delivery Intake/Output Intake/Output: Intake & Output 05/24/24 05/25/24 05/26/24 05/27/24 23:59 23:59 23:59 23:59 Intake Total 1780 2420 350 980 Output Total 2450 800 5000 1150 Balance -670 1620 -4650 -170 Meds/Results Medications: Active Medications Generic Name Dose Route Start Last Admin Trade Name Freq PRN Reason Stop Dose Admin Acetaminophen 650 mg 04/26/24 22:19 04/26/24 22:57 Acetaminophen 650 Mg Suppository RECTAL 650 mg Q6H PRN Administration Mild Pain (1-3) or Fever Acetaminophen 650 mg 05/05/24 10:27 05/24/24 20:03 Acetaminophen Elixir 325 Mg/10.15 Ml Udc PO 650 mg Q6H PRN Administration Mild Pain (1-3) or Fever Alteplase, Recombinant 2 mg 05/22/24 21:26 05/22/24 21:57 Alteplase 2 Mg Vial (Cathflo) IV PUSH 2 mg ONCE PRN Administration Line Occlusion Amlodipine Besylate 5 mg 05/27/24 12:15 05/27/24 12:49 Amlodipine Besylate 5 Mg Tablet PO 5 mg DAILY ROSY Administration Artificial Tears 1 drop 04/27/24 08:37 05/23/24 09:35 Artificial Tears Ophth Soln 15 Ml Bottle EACH EYE 1 drop QID PRN Administration Dry Eye(s) Atorvastatin Calcium 20 mg 04/30/24 09:00 Atorvastatin 20 Mg Tablet BY MOUTH DAILY ROSY Benzocaine 1 lozenge 05/15/24 15:35 05/21/24 12:14 Benzocaine/Menthol (*Bkc) 18 Ea Lozenge PO 1 lozenge PRN PRN Administration Sore Throat Bumetanide 1 mg 05/26/24 09:00 05/27/24 10:35 Bumetanide Inj 1 Mg/4 Ml Vial IV PUSH 05/28/24 17:01 1 mg BID ROSY Administration Calcium Carbonate 500 mg 05/19/24 08:00 05/27/24 09:14 Calcium/Vitamin D 500 Mg/5 Mcg (200 I.U.) Tablet PO 500 mg DAILY@0800 [facility] Administration Clonidine HCl 1 patch 05/01/24 09:00 05/22/24 09:26 Clonidine 0.1 Mg/24 Hr Patch TRANSDERM 1 patch WEEKLY [facility] Administration Dextrose 12.5 gm 05/23/24 21:48 Dextrose 50% 25 Gm/50 Ml Syringe IV PUSH PRN PRN Hypoglycemia Protocol Dronabinol 2.5 mg 05/17/24 16:30 05/26/24 16:29 Dronabinol (*Crx) 2.5 Mg Capsule PO Not Given DAILY@1630 [facility] Enoxaparin Sodium 40 mg 05/25/24 09:00 05/26/24 09:47 Enoxaparin 40 Mg/0.4 Ml Syringe SUB-Q 40 mg DAILY [facility] Administration Epoetin Olu-epbx 10,000 units 05/14/24 11:05 05/26/24 09:47 Epoetin Olu-Epbx 10,000 Units/Ml Vial SUB-Q 10,000 units TUTHSA@09 [facility] Administration Glucagon 1 mg 05/23/24 21:48 Glucagon For Inj 1 Mg Vial IM PRN PRN Hypoglycemia Protocol Glucose 15 gm 05/23/24 21:48 Glucose Oral Gel 15 Gm Of Glucse In 37.5 Gm Tube PO PRN PRN Hypoglycemia Protocol Guaifenesin/Dextromethorphan 10 ml 05/15/24 10:07 05/22/24 01:23 Guaifenesin/Dextromethorphan 10 Ml Udc PO 10 ml Q4H PRN Administration Cough Hydralazine HCl 10 mg 04/25/24 08:00 05/26/24 21:42 Hydralazine Hcl 20 Mg/Ml Vial IV PUSH 10 mg Q4H PRN Administration Blood Pressure - High Vancomycin HCl 1,000 mg in 250 mls @ 250 mls/hr 05/25/24 06:00 05/27/24 08:17 Vancomycin 1,000 Mg/Ns 250 Ml IVPB Infused Q24H ROSY Infusion Albumin Human 50 mls @ 50 mls/hr 05/26/24 09:00 05/27/24 10:10 Albutein IVPB 05/28/24 17:59 Infused BID ROSY Infusion Ipratropium [place] 0.5 mg 05/04/24 09:32 05/17/24 10:11 Ipratropium Br 0.02% Inh Soln 0.5 Mg/2.5 Ml Vial INHALATION 0.5 mg Q6HRT PRN Administration Shortness Of Breath Levalbuterol HCl 0.63 mg 05/04/24 09:32 05/17/24 10:11 Levalbuterol Neb 1.25 Mg/3 Ml INHALATION 0.63 mg Q6HRT PRN Administration Shortness Of Breath Lidocaine 1 patch 05/18/24 09:00 05/27/24 09:14 Lidocaine 5% Patch TRANSDERM 1 patch DAILY ROSY Administration Lisinopril 40 mg 05/20/24 15:05 05/27/24 09:13 Lisinopril 20 Mg Tablet BY MOUTH 40 mg DAILY ROSY Administration Lorazepam 0.5 mg 05/16/24 13:48 05/22/24 09:54 Lorazepam (*Crx) 0.5 Mg Tablet PO 0.5 mg Q6H PRN Administration Anxiety Mupirocin 1 applic 05/23/24 21:00 05/27/24 09:14 Mupirocin 2% Oint 22 Gm Tube EACH NARE 05/28/24 09:01 1 applic Q12HR ROSY Administration Ondansetron HCl 4 mg 05/13/24 11:22 05/21/24 05:44 Ondansetron Inj 4 Mg/2 Ml Vial IV PUSH 4 mg Q6H PRN Administration Nausea And Vomiting Pantoprazole Sodium 40 mg 05/23/24 09:00 05/27/24 09:14 Pantoprazole 40 Mg Tablet PO Not Given QAM ROSY Sodium Chloride 10 ml 05/04/24 14:15 Central Line Flush IV PUSH PRN PRN with TPN bag changes Sodium Chloride 20 ml 05/04/24 14:15 05/25/24 04:29 Central Line Flush IV PUSH 20 ml PRN PRN Administration after blood draws Radiology Results: ITS Impressions Chest/Abdomen/Pelvis CTA 04/22/24 18:10 IMPRESSION: Perforated viscus with a large amount of free air and fluid, with mural thickening in the distal stomach and multiple punctate foci of extraluminal air in this area for which site of perforation is suspected. Renal Ultrasound 04/24/24 11:58 IMPRESSION: Simple cyst in the left kidney upper pole. Other appearances are unremarkable. Lower Extremity CTA 05/02/24 16:36 IMPRESSION: 1. Scattered atherosclerotic plaque in the arteries of the left lower limb as detailed above without a discrete hemodynamic significant stenosis. Runoff below the ankle in the left posterior tibial artery this supplies the foot. Atretic distal peroneal and anterior tibial arteries with intraluminal contrast becoming indiscernible at the level of the ankle and with no appreciable contrast in the dorsalis pedis artery. Upper GI Series 05/09/24 09:31 IMPRESSION: 1. Ulcer of the gastric antrum with contained extraluminal contrast similar to 04/28/2024. The extraluminal contrast distribution is worse than typically seen after [place] patch repair. Abdomen CT 05/09/24 15:27 IMPRESSION: Redemonstration of a tract extending from the posterior superior margin of the antrum of the stomach only partially filled with oral contrast, perhaps demonstrating early healing. Abdomen/Pelvis CT 05/17/24 09:03 Impression: Persistent wall thickening of the gastric antrum/duodenum with surrounding haziness, compatible postoperative change. There is persistent irregular tract with small amount of fluid and external air extending from the gastric antrum superiorly/anteriorly, which could reflect abscess or persistent contained perforation. No extraluminal contrast seen, and no oral contrast seen within this collection. Intramuscular hematoma of the right iliopsoas and psoas major muscles, with additional irregular hematoma extending to the posterior right retroperitoneum. Bilateral fat-containing inguinal hernias. Small bilateral pleural effusions. Chest/Abdomen/Pelvis CT 05/22/24 14:37 IMPRESSION: Nodular opacities in the right upper lobe and right middle lobe, likely representing small infectious/inflammatory foci. Segmental bibasilar atelectasis/consolidation. Small bilateral simple pleural effusions. Cardiomegaly with trace pericardial fluid. Peritoneal gas anterior to the stomach secondary to antral perforation, with possible small adjacent abscess or fistulous tract. Nonfluid density peritoneal and psoas collections, may represent complex ascites from bowel content, blood, or phlegmon, or combination thereof. Significant body wall edema. Hand X-Ray 05/23/24 13:08 IMPRESSION: 1. No acute fracture. 2. Likely chronic malalignment at the wrist and carpus including 1 cm ulnar minus variance and disruption of the proximal carpal row which is most likely sequela of old trauma. 3. 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 4. Multiple subarticular lucencies at the wrist and carpus most likely degenerative subchondral cyst although differential includes chronic erosion such as in the setting of gout. Chest X-Ray 05/23/24 21:33 IMPRESSION: Left basilar atelectasis versus pneumonia. Cardiomegaly with congestive kristian and interstitial thickening which may indicate cardiac decompensation and pulmonary edema. Clinical correlation advised. Pneumonitis is not excluded. Modified Barium Swallow 05/26/24 15:19 IMPRESSION: Oropharyngeal dysphagia with recurrent laryngeal penetration and aspiration. Please correlate with speech pathologist findings and specific feeding recommendations. Cervical Spine MRI 05/26/24 17:21 IMPRESSION: 1. Prevertebral/retropharyngeal soft tissue swelling anterior to the mid to upper cervical spine with peripheral enhancing fluid collection potentially a small abscess just right of midline at the level of the base of the dens. Findings were discussed with Dashawn Stevens, the nurse caring for the patient, at 6:18 PM. 2. Severe cervical spondylosis with no evident discitis or osteomyelitis. Thoracic Spine MRI 05/26/24 17:45 IMPRESSION: 1. Moderate thoracic spondylosis with no evident discitis or ostomy myelitis. 2. Small bilateral pleural effusions with dependent atelectasis versus pneumonia in the bilateral lower lobes. Lumbar Spine MRI 05/26/24 17:53 IMPRESSION: 1. Severe lumbar spondylosis with prominent increased disc signal at L1-L2 through L4-L5. Increased fluid signal is likely artifact of feculent phenomena which is seen at the same levels on locations on the prior CT although could not absent exclude discitis given the presence of a nearby complex loculated right psoas muscle fluid collection with increased T1 signal suggesting this is due to hematoma although this could potentially be secondarily infected. Bone marrow signal remains normal with no measurable enhancement along the endplates but no appreciable edema to more specifically elevated concern for discitis or osteomyelitis. Would consider percutaneous abscess drainage with Gram stain and culture of the right psoas fluid collection. Findings were discussed with Dashawn Stevens, the nurse caring for the patient, at 6:18 PM. Labs 05/27/24 07:39 05/27/24 07:39 Labs: Laboratory Results - last 24 hr 05/27/24 05/27/24 05:28 07:39 WBC 9.4 RBC 2.98 L Hgb 8.7 L Hct 28.9 L MCV 97.0 MCH 29.2 MCHC 30.1 L RDW 16.7 H Plt Count 240 MPV 11.2 H Immature Gran % (Auto) 2.1 H Neut % (Auto) 73.8 H Lymph % (Auto) 14.0 L Green % (Auto) 6.5 Eos % (Auto) 3.1 Baso % (Auto) 0.5 Lymph # (Auto) 1.32 Green # (Auto) 0.6 Eos # (Auto) 0.3 Baso # (Auto) 0.1 Abs Immat Gran (auto) 0.20 H Absolute Neuts (auto) 7.0 H Absolute Nucleated RBC 0.000 Nucleated RBC % 0.0 PT 15.3 H INR 1.2 APTT 33.5 Sodium 140 Potassium 3.2 L Chloride 105 Carbon Dioxide 31 H Anion Gap 4 BUN 45 H Creatinine 1.53 H Estim Creat Clear Calc 53 Estimated GFR 44 L Glucose 122 H Calcium 8.5 Total Bilirubin 0.6 AST 26 ALT 15 Alkaline Phosphatase 98 NT-Pro-B Natriuret Pep 1600 H Total Protein 6.0 L Albumin 2.6 L Vancomycin Trough 19.0 ASA Classification/Sedation ASA Classification/Sedation ASA Class: IV Emergent: No Risks: Risks, benefits and alternatives explained and patient/family accepted plan for sedation. Patient re-evaluated immediately prior to sedation.
[2024-05-27] MEDS: fentaNYL CITRATE INJ (*CRX) 100 MCG/2 ML VIAL 50 MCG IV PUSH (15:45)
[2024-05-28 05:14] LABS: Basophils Absolute Auto 0.1 K/mm3 (0.0-0.1); Basophils Percent Auto 0.6 % (0.2-1.2); Eosinophils Absolute Auto 0.3 K/mm3 (0-0.3); Eosinophils Percent Auto 2.9 % (0-4.4); Hematocrit 29.6 % (42.0-52.0); Hemoglobin 8.9 g/dL (14.0-18.0); Immature Granulocyte Absolute 0.17 K/mm3 (0.00-0.031); Immature Granulocyte Percent A 1.5 % (0-0.5); Lymphocytes Absolute Auto 2.02 K/mm3 (0.9-3.2); Lymphocytes Percent Auto 18.3 % (18.3-44.2); Mean Corpuscular HGB Conc 30.1 g/dl (32-36); Mean Corpuscular Hemoglobin 28.7 pg (26-34); Mean Corpuscular Volume 95.5 fl (80-100); Mean Platelet Volume 11.9 fl (7.4-10.4); Monocytes Absolute Auto 0.8 K/mm3 (0.1-0.6); Monocytes Percent Auto 7.3 % (2.6-8.5); Neutrophils Absolute Auto 7.7 K/mm3 (1.3-6.7); Neutrophils Percent Auto 69.4 % (45.5-73.1); Platelet Count Result 270 k/mm3 (150-375); Red Cell Distribution Width 16.5 % (11.5-14.5); White Blood Count 11.1 K/mm3 (4.5-10.0)
[2024-05-28 05:19] LABS: Alanine Aminotransferase 17 U/L (6-50); Albumin Level 2.9 g/dL (3.5-5.1); Alkaline Phosphatase 91 U/L (38-126); Anion Gap 6 mmol/L (4-12); Aspartate Amino Transferase 31 U/L (17-59); Bilirubin,Total 0.5 mg/dL (0.2-1.3); Blood Urea Nitrogen 46 mg/dL (9-20); Calcium 8.7 mg/dL (8.4-10.2); Carbon Dioxide 32 mmol/L (22-30); Chloride 103 mmol/L (98-107); Estimated CRCL calculation 52 ml/min; Estimated Glomerular Filt Rate 44; Glucose 109 mg/dL (65-110); Magnesium 1.9 mg/dL (1.6-2.3); Potassium 3.4 mmol/L (3.4-5.0); Sodium 141 mmol/L (137-145)
[2024-05-28 05:27] LABS: NT Pro B Type Natriuretic Pept 1540 pg/mL (19.9-100)
[2024-05-28] MEDS: VANCOMYCIN 1,000 MG/NS 250 ML 1,000 MG/250 ML BAG 250 MG IVPB (05:34)
[2024-05-28 06:00] VITALS: BP 164/62; PULSE 83; RESP 18; TEMP 37.2; O2SAT 94
[2024-05-28] MEDS: ALBUMIN HUMAN 25% 12.5 GM/50ML 50 ML IVPB ×2 (08:39→17:13)
[2024-05-28] MEDS: amLODIPine BESYLATE 5 MG TABLET PO (08:40)
[2024-05-28] MEDS: lisinopriL 20 MG TABLET 40 MG BY MOUTH (08:40)
[2024-05-28] MEDS: CALCIUM/VITAMIN D 500 MG/5 MCG (200 I.U.) TABLET PO (08:40)
[2024-05-28] MEDS: MUPIROCIN 2% OINT 22 GM TUBE 1 APPLIC EACH NARE (08:41)
[2024-05-28] MEDS: LIDOCAINE 5% PATCH 1 PATCH TRANSDERM (08:46)
[2024-05-28] MEDS: EPOETIN ALFA-EPBX 10,000 UNITS/ML VIAL 10000 UNITS SUB-Q (08:46)
--- NOTE | 2024-05-28 09:19 | P.PNIM_ITS ---
Progress Note: A&P Assessment and Plan (1) Sepsis: Code(s): A41.9 - Sepsis, unspecified organism Status: Resolved Assessment and Plan: Meets SIRS criteria: Tachycardia, Febrile, Leukocytosis Blood culture positive x2 from 05/18 repeat blood culture 05/22 still negative and / positive for GPC in clusters Continue IV Vancomycin Cardiology noted that patient is not a candidate for EMPERATRIZ MRI showed possible prevertebral abscess at the dens and possible discitis s/p Psoas hematoma/abscess drainage Abscess culture pending awaiting transfer to [facility] (2) MRSA (methicillin resistant staph aureus) culture positive: Code(s): Z22.322 - Carrier or suspected carrier of Methicillin resistant Staphylococcus aureus Status: Acute Assessment and Plan: see above care (3) Bacteremia: Code(s): R78.81 - Bacteremia Status: Acute Assessment and Plan: MRSA bacteremia Blood culture still positive 05/24 continue above care Continue repeat blood cultures (4) Perforated abdominal viscus: Code(s): R19.8 - Other specified symptoms and signs involving the digestive system and abdomen Status: Acute Assessment and Plan: Septic shock from peritonitis with perforated gastric ulcer s/p laparotomy with repair repeat CT chest/AP nodular opacities in the right upper lobe and right middle lobe, peritoneal gas ant to stomach with possible small adjacent abscess or fistulous tract Surgery evaluated and noted not abscess is persistent finding not big enough for drainage Continue Peg Tube feeding for now. Gen surgery following (5) Pneumonia: Code(s): J18.9 - Pneumonia, unspecified organism Status: Acute Assessment and Plan: * Nodular opacities in the right upper lobe and right middle lobe, likely representing small infectious/inflammatory foci. 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 * Patient advanced to soft diet per General surgery recommendation * Continue to encourage po intake * Bolus tube feeding via G tube * add reglan and Marinol (7) Dysphagia: Code(s): R13.10 - Dysphagia, unspecified Status: Acute Assessment and Plan: * See plan above * continue tube feeding * Advance diet per Speech (8) Right wrist pain: Code(s): M25.531 - Pain in right wrist Status: Acute Assessment and Plan: * Patient started c/o of right wrist pain on 05/23 * Likely related to repeated blood culture attempts * XR hand RT 2V: No acute fracture. 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 Multiple subarticular lucencies at the wrist and carpus * Physical exam benign (9) Acute kidney injury superimposed on stage 3b chronic kidney disease: Code(s): N17.9 - Acute kidney failure, unspecified; N18.32 - Chronic kidney disease, stage 3b Status: Acute Assessment and Plan: * baseline creatinine most likely around 1.5 * Nephrology following * Renal ultrasound was unremarkable for any acute issues. * Restarted Lasix, holding IVF * Cr 4.03 -> 1.51 * Continue trending (10) Hematoma: Code(s): T14.8XXA - Other injury of unspecified body region, initial encounter Status: Acute Assessment and Plan: * CT abdomen pelvis on 05/17/2024 shows: Intramuscular hematoma of the right iliopsoas and psoas major muscles, with additional irregular hematoma extending to the posterior right retroperitoneum. * Spoke with surgery likely noninfective * Lidocaine patch * Lovenox on hold, no recent found for therapeutic Lovenox, when patient was placed back on Lovenox likely benefit from the 40 mg (11) Pleural effusion: Code(s): J90 - Pleural effusion, not elsewhere classified Status: Acute Assessment and Plan: * Seen on CT * Chest x-ray dated compare * Likely due to 3rd spacing * Stable (12) Anemia: Code(s): D64.9 - Anemia, unspecified Status: Acute Assessment and Plan: Iron deficiency anemia on acute loss Stable * Trend CBC. * transfuse if hgb <7.0, or symptomatic * Iron replacement * hb 8.9 (13) HTN (hypertension): Code(s): I10 - Essential (primary) hypertension Status: Acute Assessment and Plan: Controlled * Continue Clonidine patch and Hydralazine PRN. * Trend BP (14) Generalized weakness: Code(s): R53.1 - Weakness Status: Acute Assessment and Plan: * PT/OT-maxi move use for transfer * Patient will likely need placement * No changes to current plan (15) Hypokalemia: Code(s): E87.6 - Hypokalemia Status: Acute Assessment and Plan: Improved * Trend labs * Replace as indicated (16) Hypernatremia: Code(s): E87.0 - Hyperosmolality and hypernatremia Status: Acute Assessment and Plan: Resolved Daily BMP Plan Possible Discitis vs osteomyelitis MRI spine showed increased disc signal at L1-2 through l4-5 also increase T1 signal with adjacent complex loculated right psoas muscle fluid collection, hematoma vs abscess Continue abx as above and follow up cultures Awaiting transfer to [facility] Psoas muscle hematoma vs abscess MRI reviewed awaiting [facility] response S/p drainage and culture pending continue above care DVT prophylaxis on Sq Lovenox Awaiting transfer to [facility] Subjective Date/time seen: 05/28/24 09:19 Interval history: Comfortable at bedside and awaiting tansfer to [facility] Review of Systems Review of Systems: 12 systems were reviewed and are negativ e except for as per HPI. All systems reviewed & are unremarkable except as noted in HPI and below ROS unobtainable: Yes unobtainable due to endotracheal tube and unobtainable due to medical condition Exam Narrative: General: Ill appearing, appears stated age. HEENT: normocephalic, atraumatic. Mucous membranes moist. EOMI, PERRLA, bilateral sclera anicteric, no conjunctival injection. Respiratory: clear to ascultation bilaterally. No rales/rhonic/wheezes. Cardiovascular: Regular rate and rhythm, normal S1-S2 upon ascultation. No murmurs, rubs, or clicks. Capillary refill less than 3 second. Abdomen: Soft, round, no pulsatile masses, nondistended and nontender. No rebound, no guarding. Bowel sounds present to all four quadrants. No high pitch or tinkling sounds. Extremities: 2 + edema to both LE. No cyanosis, clubbing present. Pulses are palpable 2/2. Active ROM to all four extremities. Neuro: Alert and orientated x 4. PERRLA. Cranial nerves 2-12 intact without focal deficit. Skin: Warm, dry, and intact, without rash, erythema, or lesion. Psych: pleasant, cooperative, normal speech, normal affect, no hallucinations, no dysarthia Skin: G-tube site clean with G-tube in place and clamped. Gauze dressing in place in the right upper quadrant and left upper quadrant from previous ELSA drains, gauze dressing dry and intact. Const: General: comfortable, no acute distress and uncomfortable Other: Acutely ill-appearing, obese HENMT: Other: Mucous membranes are dry, head is normocephalic atraumatic, few missing teeth, bridge in the lower jaw Eyes: Other: Pupils are equal and reactive, no scleral icterus Neck: Other: No JVD, trachea midline Resp: Effort & Inspection: normal respiratory effort Auscultation: clear to auscultation bilaterally and diminished lung sounds Other: Cardio: Rate: regular rate Rhythm: regular rhythm Other: Telemetry SR 85. GI: Auscultation: normal bowel sounds Other: Gastrostomy tube in place with dry gauze dressing and skin around the G-tube without erythema or drainage. Incision dry with steri strips intact, no erythema. Slightly distended. : Other: Bowman catheter in place was a small amount of turbid yellow urine Urinary Catheter: Urinary Catheter: patent and draining Skin: Other: Generally cold to touch, 2nd cap refill, fingers and toes are cyanotic Neuro: Speech: normal speech Other: Pupils are reactive, equal Extrem: General: pedal edema bilaterally 2+ Other: 2+PP bilateral feet are warm. Psych: Mental Status: mental status grossly normal Affect: normal affect Other: Unable to assess due to patient condition Objective Data Vital Signs Vital Signs: Vital Signs - 24 hr 05/27/24 12:49 05/27/24 13:03 05/27/24 13:55 Temperature 97.5 F L Pulse Rate 81 Respiratory Rate 20 Blood Pressure 175/65 H Pulse Oximetry 99 Oxygen Delivery Room Air Room Air Oxygen Flow Rate 05/27/24 13:55 05/27/24 15:40 05/27/24 15:45 Temperature 97.5 F L Pulse Rate 81 85 89 Respiratory Rate 20 20 20 Blood Pressure 175/65 H 150/71 H 145/74 H Pulse Oximetry 99 95 95 Oxygen Delivery Nasal Cannula Nasal Cannula Oxygen Flow Rate 2 2 05/27/24 15:50 05/27/24 15:55 05/27/24 16:00 Temperature Pulse Rate 82 86 82 Respiratory Rate 14 20 20 Blood Pressure 155/72 H 167/75 H 143/68 H Pulse Oximetry 96 95 96 Oxygen Delivery Nasal Cannula Nasal Cannula Nasal Cannula Oxygen Flow Rate 2 2 2 05/27/24 16:05 05/27/24 16:10 05/27/24 16:15 Temperature Pulse Rate 82 81 90 Respiratory Rate 18 19 20 Blood Pressure 142/71 H 162/73 H 155/65 H Pulse Oximetry 97 97 95 Oxygen Delivery Nasal Cannula Nasal Cannula Nasal Cannula Oxygen Flow Rate 2 2 2 05/27/24 16:20 05/27/24 16:30 05/27/24 16:40 Temperature Pulse Rate 82 83 89 Respiratory Rate 20 22 H 22 H Blood Pressure 155/67 H 151/74 H 157/73 H Pulse Oximetry 96 95 94 Oxygen Delivery Nasal Cannula Room Air Room Air Oxygen Flow Rate 2 05/27/24 20:16 05/27/24 21:37 05/28/24 05:42 Temperature 99.1 F Pulse Rate 84 Respiratory Rate 20 Blood Pressure 154/52 H Pulse Oximetry 94 Oxygen Delivery Room Air Room Air Oxygen Flow Rate 05/28/24 06:00 Temperature 99.0 F Pulse Rate 83 Respiratory Rate 18 Blood Pressure 164/62 H Pulse Oximetry 94 Oxygen Delivery Oxygen Flow Rate Intake/Output Intake/Output: Intake & Output 05/25/24 05/26/24 05/27/24 05/28/24 23:59 23:59 23:59 23:59 Intake Total 2420 350 1030 970 Output Total 800 5000 3950 1050 Balance 1620 -4650 -2920 -80 Meds/Results Medications: Active Medications Generic Name Dose Route Start Last Admin Trade Name Freq PRN Reason Stop Dose Admin Acetaminophen 650 mg 04/26/24 22:19 04/26/24 22:57 Acetaminophen 650 Mg Suppository RECTAL 650 mg Q6H PRN Administration Mild Pain (1-3) or Fever Acetaminophen 650 mg 05/05/24 10:27 05/24/24 20:03 Acetaminophen Elixir 325 Mg/10.15 Ml Udc PO 650 mg Q6H PRN Administration Mild Pain (1-3) or Fever Alteplase, Recombinant 2 mg 05/22/24 21:26 05/22/24 21:57 Alteplase 2 Mg Vial (Cathflo) IV PUSH 2 mg ONCE PRN Administration Line Occlusion Amlodipine Besylate 5 mg 05/27/24 12:15 05/28/24 08:40 Amlodipine Besylate 5 Mg Tablet PO 5 mg DAILY ROSY Administration Artificial Tears 1 drop 04/27/24 08:37 05/23/24 09:35 Artificial Tears Ophth Soln 15 Ml Bottle EACH EYE 1 drop QID PRN Administration Dry Eye(s) Atorvastatin Calcium 20 mg 04/30/24 09:00 Atorvastatin 20 Mg Tablet BY MOUTH DAILY ROSY Benzocaine 1 lozenge 05/15/24 15:35 05/21/24 12:14 Benzocaine/Menthol (*Bkc) 18 Ea Lozenge PO 1 lozenge PRN PRN Administration Sore Throat Bumetanide 1 mg 05/26/24 09:00 05/27/24 18:37 Bumetanide Inj 1 Mg/4 Ml Vial IV PUSH 05/28/24 17:01 1 mg BID ROSY Administration Calcium Carbonate 500 mg 05/19/24 08:00 05/28/24 08:40 Calcium/Vitamin D 500 Mg/5 Mcg (200 I.U.) Tablet PO 500 mg DAILY@0800 [facility] Administration Clonidine HCl 1 patch 05/01/24 09:00 05/22/24 09:26 Clonidine 0.1 Mg/24 Hr Patch TRANSDERM 1 patch WEEKLY [facility] Administration Dextrose 12.5 gm 05/23/24 21:48 Dextrose 50% 25 Gm/50 Ml Syringe IV PUSH PRN PRN Hypoglycemia Protocol Dronabinol 2.5 mg 05/17/24 16:30 05/27/24 16:55 Dronabinol (*Crx) 2.5 Mg Capsule PO Not Given DAILY@1630 [facility] Enoxaparin Sodium 40 mg 05/25/24 09:00 05/26/24 09:47 Enoxaparin 40 Mg/0.4 Ml Syringe SUB-Q 40 mg DAILY [facility] Administration Epoetin Olu-epbx 10,000 units 05/14/24 11:05 05/28/24 08:46 Epoetin Olu-Epbx 10,000 Units/Ml Vial SUB-Q 10,000 units TUTHSA@09 [facility] Administration Glucagon 1 mg 05/23/24 21:48 Glucagon For Inj 1 Mg Vial IM PRN PRN Hypoglycemia Protocol Glucose 15 gm 05/23/24 21:48 Glucose Oral Gel 15 Gm Of Glucse In 37.5 Gm Tube PO PRN PRN Hypoglycemia Protocol Guaifenesin/Dextromethorphan 10 ml 05/15/24 10:07 05/22/24 01:23 Guaifenesin/Dextromethorphan 10 Ml Udc PO 10 ml Q4H PRN Administration Cough Hydralazine HCl 10 mg 04/25/24 08:00 05/26/24 21:42 Hydralazine Hcl 20 Mg/Ml Vial IV PUSH 10 mg Q4H PRN Administration Blood Pressure - High Vancomycin HCl 1,000 mg in 250 mls @ 250 mls/hr 05/25/24 06:00 05/28/24 06:34 Vancomycin 1,000 Mg/Ns 250 Ml IVPB Infused Q24H ROSY Infusion Albumin Human 50 mls @ 50 mls/hr 05/26/24 09:00 05/28/24 08:39 Albutein IVPB 05/28/24 17:59 50 mls/hr BID ROSY Administration Ipratropium [place] 0.5 mg 05/04/24 09:32 05/17/24 10:11 Ipratropium Br 0.02% Inh Soln 0.5 Mg/2.5 Ml Vial INHALATION 0.5 mg Q6HRT PRN Administration Shortness Of Breath Levalbuterol HCl 0.63 mg 05/04/24 09:32 05/17/24 10:11 Levalbuterol Neb 1.25 Mg/3 Ml INHALATION 0.63 mg Q6HRT PRN Administration Shortness Of Breath Lidocaine 1 patch 05/18/24 09:00 05/28/24 08:46 Lidocaine 5% Patch TRANSDERM 1 patch DAILY ROSY Administration Lisinopril 40 mg 05/20/24 15:05 05/28/24 08:40 Lisinopril 20 Mg Tablet BY MOUTH 40 mg DAILY ROSY Administration Lorazepam 0.5 mg 05/16/24 13:48 05/22/24 09:54 Lorazepam (*Crx) 0.5 Mg Tablet PO 0.5 mg Q6H PRN Administration Anxiety Ondansetron HCl 4 mg 05/13/24 11:22 05/21/24 05:44 Ondansetron Inj 4 Mg/2 Ml Vial IV PUSH 4 mg Q6H PRN Administration Nausea And Vomiting Pantoprazole Sodium 40 mg 05/23/24 09:00 05/28/24 08:41 Pantoprazole 40 Mg Tablet PO Not Given QAM ROSY Sodium Chloride 10 ml 05/04/24 14:15 Central Line Flush IV PUSH PRN PRN with TPN bag changes Sodium Chloride 20 ml 05/04/24 14:15 05/25/24 04:29 Central Line Flush IV PUSH 20 ml PRN PRN Administration after blood draws Radiology Results: ITS Impressions Chest/Abdomen/Pelvis CTA 04/22/24 18:10 IMPRESSION: Perforated viscus with a large amount of free air and fluid, with mural thickening in the distal stomach and multiple punctate foci of extraluminal air in this area for which site of perforation is suspected. Renal Ultrasound 04/24/24 11:58 IMPRESSION: Simple cyst in the left kidney upper pole. Other appearances are unremarkable. Lower Extremity CTA 05/02/24 16:36 IMPRESSION: 1. Scattered atherosclerotic plaque in the arteries of the left lower limb as detailed above without a discrete hemodynamic significant stenosis. Runoff below the ankle in the left posterior tibial artery this supplies the foot. Atretic distal peroneal and anterior tibial arteries with intraluminal contrast becoming indiscernible at the level of the ankle and with no appreciable contrast in the dorsalis pedis artery. Upper GI Series 05/09/24 09:31 IMPRESSION: 1. Ulcer of the gastric antrum with contained extraluminal contrast similar to 04/28/2024. The extraluminal contrast distribution is worse than typically seen after [place]rence patch repair. Abdomen CT 05/09/24 15:27 IMPRESSION: Redemonstration of a tract extending from the posterior superior margin of the antrum of the stomach only partially filled with oral contrast, perhaps demonstrating early healing. Abdomen/Pelvis CT 05/17/24 09:03 Impression: Persistent wall thickening of the gastric antrum/duodenum with surrounding haziness, compatible postoperative change. There is persistent irregular tract with small amount of fluid and external air extending from the gastric antrum superiorly/anteriorly, which could reflect abscess or persistent contained perforation. No extraluminal contrast seen, and no oral contrast seen within this collection. Intramuscular hematoma of the right iliopsoas and psoas major muscles, with additional irregular hematoma extending to the posterior right retroperitoneum. Bilateral fat-containing inguinal hernias. Small bilateral pleural effusions. Chest/Abdomen/Pelvis CT 05/22/24 14:37 IMPRESSION: Nodular opacities in the right upper lobe and right middle lobe, likely representing small infectious/inflammatory foci. Segmental bibasilar atelectasis/consolidation. Small bilateral simple pleural effusions. Cardiomegaly with trace pericardial fluid. Peritoneal gas anterior to the stomach secondary to antral perforation, with possible small adjacent abscess or fistulous tract. Nonfluid density peritoneal and psoas collections, may represent complex ascites from bowel content, blood, or phlegmon, or combination thereof. Significant body wall edema. Hand X-Ray 05/23/24 13:08 IMPRESSION: 1. No acute fracture. 2. Likely chronic malalignment at the wrist and carpus including 1 cm ulnar elijah s variance and disruption of the proximal carpal row which is most likely sequela of old trauma. 3. 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 4. Multiple subarticular lucencies at the wrist and carpus most likely degenerative subchondral cyst although differential includes chronic erosion such as in the setting of gout. Chest X-Ray 05/23/24 21:33 IMPRESSION: Left basilar atelectasis versus pneumonia. Cardiomegaly with congestive kristian and interstitial thickening which may indicate cardiac decompensation and pulmonary edema. Clinical correlation advised. Pneumonitis is not excluded. Modified Barium Swallow 05/26/24 15:19 IMPRESSION: Oropharyngeal dysphagia with recurrent laryngeal penetration and aspiration. Please correlate with speech pathologist findings and specific feeding recommendations. Cervical Spine MRI 05/26/24 17:21 IMPRESSION: 1. Prevertebral/retropharyngeal soft tissue swelling anterior to the mid to upper cervical spine with peripheral enhancing fluid collection potentially a small abscess just right of midline at the level of the base of the dens. Findings were discussed with Dashawn Stevens, the nurse caring for the patient, at 6:18 PM. 2. Severe cervical spondylosis with no evident discitis or osteomyelitis. Thoracic Spine MRI 05/26/24 17:45 IMPRESSION: 1. Moderate thoracic spondylosis with no evident discitis or ostomy myelitis. 2. Small bilateral pleural effusions with dependent atelectasis versus pneumonia in the bilateral lower lobes. Lumbar Spine MRI 05/26/24 17:53 IMPRESSION: 1. Severe lumbar spondylosis with prominent increased disc signal at L1-L2 through L4-L5. Increased fluid signal is likely artifact of feculent phenomena which is seen at the same levels on locations on the prior CT although could not absent exclude discitis given the presence of a nearby complex loculated right psoas muscle fluid collection with increased T1 signal suggesting this is due to hematoma although this could potentially be secondarily infected. Bone marrow signal remains normal with no measurable enhancement along the endplates but no appreciable edema to more specifically elevated concern for discitis or osteomyelitis. Would consider percutaneous abscess drainage with Gram stain and culture of the right psoas fluid collection. Findings were discussed with Dashawn Stevens, the nurse caring for the patient, at 6:[address] 05/27/24 17:21 IMPRESSION: 1. Successful CT-guided right psoas muscle fluid collection drainage catheter placement. 2. 5 mL fluid was sent for aerobic and anaerobic cultures. 3. The catheter will be managed by Dr. Aguiar. Labs Labs: Laboratory Results - last 24 hr 05/28/24 04:23 WBC 11.1 H RBC 3.10 L Hgb 8.9 L Hct 29.6 L MCV 95.5 MCH 28.7 MCHC 30.1 L RDW 16.5 H Plt Count 270 MPV 11.9 H Immature Gran % (Auto) 1.5 H Neut % (Auto) 69.4 Lymph % (Auto) 18.3 [place] % (Auto) 7.3 Eos % (Auto) 2.9 Baso % (Auto) 0.6 Lymph # (Auto) 2.02 [place] # (Auto) 0.8 H Eos # (Auto) 0.3 Baso # (Auto) 0.1 Abs Immat Gran (auto) 0.17 H Absolute Neuts (auto) 7.7 H Absolute Nucleated RBC 0.000 Nucleated RBC % 0.0 Sodium 141 Potassium 3.4 Chloride 103 Carbon Dioxide 32 H Anion Gap 6 BUN 46 H Creatinine 1.54 H Estim Creat Clear Calc 52 Estimated GFR 44 L Glucose 109 Calcium 8.7 Magnesium 1.9 Total Bilirubin 0.5 AST 31 ALT 17 Alkaline Phosphatase 91 NT-Pro-B Natriuret Pep 1540 H Total Protein 6.0 L Albumin 2.9 L Quality VTE Prophylaxis VTE prophylaxis: mechanical ordered and pharmacologic ordered
[2024-05-28] MEDS: BUMETANIDE INJ 1 MG/4 ML VIAL IV PUSH ×2 (10:44→18:50)
--- NOTE | 2024-05-28 10:59 | PM.PNGS ---
Progress Note: A&P Assessment and Plan (1) Perforated gastric ulcer: Onset Date: 04/2024 Qualifiers: Gastric ulcer chronicity: acute Qualified Code(s): K25.1 - Acute gastric ulcer with perforation Code(s): K25.5 - Chronic or unspecified gastric ulcer with perforation Status: Acute Assessment and Plan: Tolerating G-tube feedings. (2) Psoas abscess, right: Code(s): K68.12 - Psoas muscle abscess Status: Acute Assessment and Plan: Status post percutaneous drain placed 05/27/2024. Drain appears mostly to be old blood. Await culture results. (3) MRSA bacteremia: Code(s): R78.81 - Bacteremia; B95.62 - Methicillin resistant Staphylococcus aureus infection as the cause of diseases classified elsewhere Status: Acute Assessment and Plan: Repeat cultures negative so far. Multiple potential sources. (4) Abnormal MRI, neck: Code(s): R93.89 - Abnormal findings on diagnostic imaging of other specified body structures Status: Acute (5) Stage 3b chronic kidney disease: Code(s): N18.32 - Chronic kidney disease, stage 3b Status: Chronic (6) Malnutrition following gastrointestinal surgery: Code(s): K91.2 - Postsurgical malabsorption, not elsewhere classified Status: Chronic Subjective Subjective Date/Time Seen: 05/28/24 10:59 Interval history: Had percutaneous drain placed yesterday. No fevers. No significant abdominal pain. Exam GI: Inspection: non-distended and other (Psoas pigtail drain with dark bloody output) GI Palp: Yes Soft to palpation, No Tenderness to palpation present (GI) and No Guarding due to palpation present (GI) Objective Data Vital Signs Vital Signs: Vital Signs - 24 hr 05/27/24 12:49 05/27/24 13:03 05/27/24 13:55 Temperature 97.5 F L Pulse Rate 81 Respiratory Rate 20 Blood Pressure 175/65 H Pulse Oximetry 99 Oxygen Delivery Room Air Room Air Oxygen Flow Rate 05/27/24 13:55 05/27/24 15:40 05/27/24 15:45 Temperature 97.5 F L Pulse Rate 81 85 89 Respiratory Rate 20 20 20 Blood Pressure 175/65 H 150/71 H 145/74 H Pulse Oximetry 99 95 95 Oxygen Delivery Nasal Cannula Nasal Cannula Oxygen Flow Rate 2 2 05/27/24 15:50 05/27/24 15:55 05/27/24 16:00 Temperature Pulse Rate 82 86 82 Respiratory Rate 14 20 20 Blood Pressure 155/72 H 167/75 H 143/68 H Pulse Oximetry 96 95 96 Oxygen Delivery Nasal Cannula Nasal Cannula Nasal Cannula Oxygen Flow Rate 2 2 2 05/27/24 16:05 05/27/24 16:10 05/27/24 16:15 Temperature Pulse Rate 82 81 90 Respiratory Rate 18 19 20 Blood Pressure 142/71 H 162/73 H 155/65 H Pulse Oximetry 97 97 95 Oxygen Delivery Nasal Cannula Nasal Cannula Nasal Cannula Oxygen Flow Rate 2 2 2 05/27/24 16:20 05/27/24 16:30 05/27/24 16:40 Temperature Pulse Rate 82 83 89 Respiratory Rate 20 22 H 22 H Blood Pressure 155/67 H 151/74 H 157/73 H Pulse Oximetry 96 95 94 Oxygen Delivery Nasal Cannula Room Air Room Air Oxygen Flow Rate 2 05/27/24 20:16 05/27/24 21:37 05/28/24 05:42 Temperature 99.1 F Pulse Rate 84 Respiratory Rate 20 Blood Pressure 154/52 H Pulse Oximetry 94 Oxygen Delivery Room Air Room Air Oxygen Flow Rate 05/28/24 06:00 Temperature 99.0 F Pulse Rate 83 Respiratory Rate 18 Blood Pressure 164/62 H Pulse Oximetry 94 Oxygen Delivery Oxygen Flow Rate Intake/Output Intake/Output: Intake & Output 05/25/24 05/26/24 05/27/24 05/28/24 23:59 23:59 23:59 23:59 Intake Total 2420 350 1030 1020 Output Total 800 5000 3950 1050 Balance 1620 -4650 -2920 -30 Meds/Results Medications: Active Medications Generic Name Dose Route Start Last Admin Trade Name Freq PRN Reason Stop Dose Admin Acetaminophen 650 mg 04/26/24 22:19 04/26/24 22:57 Acetaminophen 650 Mg Suppository RECTAL 650 mg Q6H PRN Administration Mild Pain (1-3) or Fever Acetaminophen 650 mg 05/05/24 10:27 05/24/24 20:03 Acetaminophen Elixir 325 Mg/10.15 Ml Udc PO 650 mg Q6H PRN Administration Mild Pain (1-3) or Fever Alteplase, Recombinant 2 mg 05/22/24 21:26 05/22/24 21:57 Alteplase 2 Mg Vial (Cathflo) IV PUSH 2 mg ONCE PRN Administration Line Occlusion Amlodipine Besylate 5 mg 05/27/24 12:15 05/28/24 08:40 Amlodipine Besylate 5 Mg Tablet PO 5 mg DAILY [facility] Administration Artificial Tears 1 drop 04/27/24 08:37 05/23/24 09:35 Artificial Tears Ophth Soln 15 Ml Bottle EACH EYE 1 drop QID PRN Administration Dry Eye(s) Atorvastatin Calcium 20 mg 04/30/24 09:00 Atorvastatin 20 Mg Tablet BY MOUTH DAILY [facility] Benzocaine 1 lozenge 05/15/24 15:35 05/21/24 12:14 Benzocaine/Menthol (*Bkc) 18 Ea Lozenge PO 1 lozenge PRN PRN Administration Sore Throat Bumetanide 1 mg 05/26/24 09:00 05/28/24 10:44 Bumetanide Inj 1 Mg/4 Ml Vial IV PUSH 05/28/24 17:01 1 mg BID [facility] Administration Calcium Carbonate 500 mg 05/19/24 08:00 05/28/24 08:40 Calcium/Vitamin D 500 Mg/5 Mcg (200 I.U.) Tablet PO 500 mg DAILY@0800 [facility] Administration Clonidine HCl 1 patch 05/01/24 09:00 05/22/24 09:26 Clonidine 0.1 Mg/24 Hr Patch TRANSDERM 1 patch WEEKLY [facility] Administration Dextrose 12.5 gm 05/23/24 21:48 Dextrose 50% 25 Gm/50 Ml Syringe IV PUSH PRN PRN Hypoglycemia Protocol Dronabinol 2.5 mg 05/17/24 16:30 05/28/24 10:05 Dronabinol (*Crx) 2.5 Mg Capsule PO Not Given DAILY@1630 [facility] Enoxaparin Sodium 40 mg 05/25/24 09:00 05/26/24 09:47 Enoxaparin 40 Mg/0.4 Ml Syringe SUB-Q 40 mg DAILY [facility] Administration Epoetin Olu-epbx 10,000 units 05/14/24 11:05 05/28/24 08:46 Epoetin Olu-Epbx 10,000 Units/Ml Vial SUB-Q 10,000 units TUTHSA@09 [facility] Administration Glucagon 1 mg 05/23/24 21:48 Glucagon For Inj 1 Mg Vial IM PRN PRN Hypoglycemia Protocol Glucose 15 gm 05/23/24 21:48 Glucose Oral Gel 15 Gm Of Glucse In 37.5 Gm Tube PO PRN PRN Hypoglycemia Protocol Guaifenesin/Dextromethorphan 10 ml 05/15/24 10:07 05/22/24 01:23 Guaifenesin/Dextromethorphan 10 Ml Udc PO 10 ml Q4H PRN Administration Cough Hydralazine HCl 10 mg 04/25/24 08:00 05/26/24 21:42 Hydralazine Hcl 20 Mg/Ml Vial IV PUSH 10 mg Q4H PRN Administration Blood Pressure - High Vancomycin HCl 1,000 mg in 250 mls @ 250 mls/hr 05/25/24 06:00 05/28/24 06:34 Vancomycin 1,000 Mg/Ns 250 Ml IVPB Infused Q24H [facility] Infusion Albumin Human 50 mls @ 50 mls/hr 05/26/24 09:00 05/28/24 09:39 Albutein IVPB 05/28/24 17:59 Infused BID [facility] Infusion Ipratropium [place] 0.5 mg 05/04/24 09:32 05/17/24 10:11 Ipratropium Br 0.02% Inh Soln 0.5 Mg/2.5 Ml Vial INHALATION 0.5 mg Q6HRT PRN Administration Shortness Of Breath Levalbuterol HCl 0.63 mg 05/04/24 09:32 05/17/24 10:11 Levalbuterol Neb 1.25 Mg/3 Ml INHALATION 0.63 mg Q6HRT PRN Administration Shortness Of Breath Lidocaine 1 patch 05/18/24 09:00 05/28/24 08:46 Lidocaine 5% Patch TRANSDERM 1 patch DAILY [facility] Administration Lisinopril 40 mg 05/20/24 15:05 05/28/24 08:40 Lisinopril 20 Mg Tablet BY MOUTH 40 mg DAILY [facility] Administration Lorazepam 0.5 mg 05/16/24 13:48 05/22/24 09:54 Lorazepam (*Crx) 0.5 Mg Tablet PO 0.5 mg Q6H PRN Administration Anxiety Ondansetron HCl 4 mg 05/13/24 11:22 05/21/24 05:44 Ondansetron Inj 4 Mg/2 Ml Vial IV PUSH 4 mg Q6H PRN Administration Nausea And Vomiting Pantoprazole Sodium 40 mg 05/23/24 09:00 05/28/24 08:41 Pantoprazole 40 Mg Tablet PO Not Given QAM [facility] Sodium Chloride 10 ml 05/04/24 14:15 Central Line Flush IV PUSH PRN PRN with TPN bag changes Sodium Chloride 20 ml 05/04/24 14:15 05/25/24 04:29 Central Line Flush IV PUSH 20 ml PRN PRN Administration after blood draws Radiology Results: ITS Impressions Chest/Abdomen/Pelvis CTA 04/22/24 18:10 IMPRESSION: Perforated viscus with a large amount of free air and fluid, with mural thickening in the distal stomach and multiple punctate foci of extraluminal air in this area for which site of perforation is suspected. Renal Ultrasound 04/24/24 11:58 IMPRESSION: Simple cyst in the left kidney upper pole. Other appearances are unremarkable. Lower Extremity CTA 05/02/24 16:36 IMPRESSION: 1. Scattered atherosclerotic plaque in the arteries of the left lower limb as detailed above without a discrete hemodynamic significant stenosis. Runoff below the ankle in the left posterior tibial artery this supplies the foot. Atretic distal peroneal and anterior tibial arteries with intraluminal contrast becoming indiscernible at the level of the ankle and with no appreciable contrast in the dorsalis pedis artery. Upper GI Series 05/09/24 09:31 IMPRESSION: 1. Ulcer of the gastric antrum with contained extraluminal contrast similar to 04/28/2024. The extraluminal contrast distribution is worse than typically seen after [place] patch repair. Abdomen CT 05/09/24 15:27 IMPRESSION: Redemonstration of a tract extending from the posterior superior margin of the antrum of the stomach only partially filled with oral contrast, perhaps demonstrating early healing. Abdomen/Pelvis CT 05/17/24 09:03 Impression: Persistent wall thickening of the gastric antrum/duodenum with surrounding haziness, compatible postoperative change. There is persistent irregular tract with small amount of fluid and external air extending from the gastric antrum superiorly/anteriorly, which could reflect abscess or persistent contained perforation. No extraluminal contrast seen, and no oral contrast seen within this collection. Intramuscular hematoma of the right iliopsoas and psoas major muscles, with additional irregular hematoma extending to the posterior right retroperitoneum. Bilateral fat-containing inguinal hernias. Small bilateral pleural effusions. Chest/Abdomen/Pelvis CT 05/22/24 14:37 IMPRESSION: Nodular opacities in the right upper lobe and right middle lobe, likely representing small infectious/inflammatory foci. Segmental bibasilar atelectasis/consolidation. Small bilateral simple pleural effusions. Cardiomegaly with trace pericardial fluid. Peritoneal gas anterior to the stomach secondary to antral perforation, with possible small adjacent abscess or fistulous tract. Nonfluid density peritoneal and psoas collections, may represent complex ascites from bowel content, blood, or phlegmon, or combination thereof. Significant body wall edema. Hand X-Ray 05/23/24 13:08 IMPRESSION: 1. No acute fracture. 2. Likely chronic malalignment at the wrist and carpus including 1 cm ulnar minus variance and disruption of the proximal carpal row which is most likely sequela of old trauma. 3. 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 4. Multiple subarticular lucencies at the wrist and carpus most likely degenerative subchondral cyst although differential includes chronic erosion such as in the setting of gout. Chest X-Ray 05/23/24 21:33 IMPRESSION: Left basilar atelectasis versus pneumonia. Cardiomegaly with congestive kristian and interstitial thickening which may indicate cardiac decompensation and pulmonary edema. Clinical correlation advised. Pneumonitis is not excluded. Modified Barium Swallow 05/26/24 15:19 IMPRESSION: Oropharyngeal dysphagia with recurrent laryngeal penetration and aspiration. Please correlate with speech pathologist findings and specific feeding recommendations. Cervical Spine MRI 05/26/24 17:21 IMPRESSION: 1. Prevertebral/retropharyngeal soft tissue swelling anterior to the mid to upper cervical spine with peripheral enhancing fluid collection potentially a small abscess just right of midline at the level of the base of the dens. Findings were discussed with Dashawn Stevens, the nurse caring for the patient, at 6:18 PM. 2. Severe cervical spondylosis with no evident discitis or osteomyelitis. Thoracic Spine MRI 05/26/24 17:45 IMPRESSION: 1. Moderate thoracic spondylosis with no evident discitis or ostomy myelitis. 2. Small bilateral pleural effusions with dependent atelectasis versus pneumonia in the bilateral lower lobes. Lumbar Spine MRI 05/26/24 17:53 IMPRESSION: 1. Severe lumbar spondylosis with prominent increased disc signal at L1-L2 through L4-L5. Increased fluid signal is likely artifact of feculent phenomena which is seen at the same levels on locations on the prior CT although could not absent exclude discitis given the presence of a nearby complex loculated right psoas muscle fluid collection with increased T1 signal suggesting this is due to hematoma although this could potentially be secondarily infected. Bone marrow signal remains normal with no measurable enhancement along the endplates but no appreciable edema to more specifically elevated concern for discitis or osteomyelitis. Would consider percutaneous abscess drainage with Gram stain and culture of the right psoas fluid collection. Findings were discussed with Dashawn Stevens, the nurse caring for the patient, at 6:[address] 05/27/24 17:21 IMPRESSION: 1. Successful CT-guided right psoas muscle fluid collection drainage catheter placement. 2. 5 mL fluid was sent for aerobic and anaerobic cultures. 3. The catheter will be managed by Dr. Aguiar. Labs Labs: Laboratory Results - last 24 hr 05/28/24 04:23 WBC 11.1 H RBC 3.10 L Hgb 8.9 L Hct 29.6 L MCV 95.5 MCH 28.7 MCHC 30.1 L RDW 16.5 H Plt Count 270 MPV 11.9 H Immature Gran % (Auto) 1.5 H Neut % (Auto) 69.4 Lymph % (Auto) 18.3 [place] % (Auto) 7.3 Eos % (Auto) 2.9 Baso % (Auto) 0.6 Lymph # (Auto) 2.02 [place] # (Auto) 0.8 H Eos # (Auto) 0.3 Baso # (Auto) 0.1 Abs Immat Gran (auto) 0.17 H Absolute Neuts (auto) 7.7 H Absolute Nucleated RBC 0.000 Nucleated RBC % 0.0 Sodium 141 Potassium 3.4 Chloride 103 Carbon Dioxide 32 H Anion Gap 6 BUN 46 H Creatinine 1.54 H Estim Creat Clear Calc 52 Estimated GFR 44 L Glucose 109 Calcium 8.7 Magnesium 1.9 Total Bilirubin 0.5 AST 31 ALT 17 Alkaline Phosphatase 91 NT-Pro-B Natriuret Pep 1540 H Total Protein 6.0 L Albumin 2.9 L
[2024-05-28 14:00] VITALS: BP 178/57; PULSE 88; RESP 20; TEMP 36.8; O2SAT 95
[2024-05-28 20:00] VITALS: O2SAT 95
[2024-05-28 21:16] VITALS: BP 170/60; PULSE 84; RESP 16; TEMP 38; O2SAT 95
[2024-05-28 22:15] VITALS: TEMP 37.9
[2024-05-28] MEDS: ACETAMINOPHEN ELIXIR 325 MG/10.15 ML UDC 650 MG PO (22:15)
[2024-05-28 23:15] VITALS: TEMP 37.2
[2024-05-29] VITALS (7 sets, daily range): BP systolic 152–163; BP diastolic 52–62; PULSE 75–82; RESP 16–20; TEMP 36.8–37; O2SAT 92–98
[2024-05-29 05:14] LABS: Basophils Percent Auto 0.4 % (0.2-1.2); Eosinophils Absolute Auto 0.4 K/mm3 (0-0.3); Eosinophils Percent Auto 3.7 % (0-4.4); Hematocrit 28.8 % (42.0-52.0); Hemoglobin 8.5 g/dL (14.0-18.0); Immature Granulocyte Absolute 0.11 K/mm3 (0.00-0.031); Immature Granulocyte Percent A 1.1 % (0-0.5); Lymphocytes Absolute Auto 1.76 K/mm3 (0.9-3.2); Lymphocytes Percent Auto 17.7 % (18.3-44.2); Mean Corpuscular HGB Conc 29.5 g/dl (32-36); Mean Corpuscular Hemoglobin 28.9 pg (26-34); Mean Platelet Volume 11.6 fl (7.4-10.4); Monocytes Absolute Auto 0.8 K/mm3 (0.1-0.6); Monocytes Percent Auto 8.1 % (2.6-8.5); Neutrophils Absolute Auto 6.9 K/mm3 (1.3-6.7); Platelet Count Result 236 k/mm3 (150-375); Red Blood Count 2.94 M/mm3 (4.6-6.20); Red Cell Distribution Width 16.5 % (11.5-14.5); White Blood Count 9.9 K/mm3 (4.5-10.0)
[2024-05-29 05:19] LABS: Alanine Aminotransferase 19 U/L (6-50); Alkaline Phosphatase 89 U/L (38-126); Anion Gap 5 mmol/L (4-12); Aspartate Amino Transferase 38 U/L (17-59); Bilirubin,Total 0.6 mg/dL (0.2-1.3); Blood Urea Nitrogen 51 mg/dL (9-20); Calcium 8.9 mg/dL (8.4-10.2); Carbon Dioxide 36 mmol/L (22-30); Chloride 102 mmol/L (98-107); Estimated CRCL calculation 46 ml/min; Estimated Glomerular Filt Rate 39; Glucose 123 mg/dL (65-110); Potassium 3.4 mmol/L (3.4-5.0); Sodium 143 mmol/L (137-145)
[2024-05-29] MEDS: VANCOMYCIN 1,000 MG/NS 250 ML 1,000 MG/250 ML BAG 250 MG IVPB (05:23)
[2024-05-29 05:26] LABS: NT Pro B Type Natriuretic Pept 1260 pg/mL (19.9-100)
[2024-05-29] MEDS: cloNIDine 0.1 MG/24 HR PATCH 1 PATCH TRANSDERM (08:59)
[2024-05-29] MEDS: CALCIUM/VITAMIN D 500 MG/5 MCG (200 I.U.) TABLET PO (08:59)
[2024-05-29] MEDS: amLODIPine BESYLATE 5 MG TABLET PO (08:59)
[2024-05-29] MEDS: lisinopriL 20 MG TABLET 40 MG BY MOUTH (08:59)
[2024-05-29] MEDS: LIDOCAINE 5% PATCH 1 PATCH TRANSDERM (09:00)
--- NOTE | 2024-05-29 11:25 | PM.PNNEP ---
Progress Note: A&P Assessment and Plan (1) Acute kidney injury: Code(s): N17.9 - Acute kidney failure, unspecified Status: Acute Assessment and Plan: tad/stable by recent labs had improved to baseline (1.5mg/dl) on 04/30 then georgette to the low 4ish range now improving again suspect initial insult to be of multifactorial etiology: NSAID use hypotension/hemodynmic instability/shock sepsis/infection third spacing evaluation to date: CT shows normal kidneys renal u/s with simple cyst x 1 o/w unremarkable. urine electrolytes are prerenal CPK mildly elevated (but not enough to affect kidneys) urine eosinophils negative mild proteinuria another acute insult noted by recent labs (since 05/02): possible due to pre-renal factors, infection (UTI +/- pneumonia versus gastric leak) recent imaging noted - no evidence of gastric leak repeat urine studies (on 05/08) suggestive of UTI and prerenal azotemia despite prerenal urine electrolytes, he has evidence of volume overload again suspect related to 3rd spacing and hypoalbuminemia recent echocardiogram shows good LV function and no pulmonary hypertension good diuresis/UOP with IV albumin and IV lasix previously... restarted IV albumin + IV bumex x 6 doses (to complete today) follow trend of urine output and I/Os consider IV versus oral diuretics PRN follow trend of repeat labs and UOP (2) Stage 3b chronic kidney disease: Code(s): N18.32 - Chronic kidney disease, stage 3b Status: Chronic Assessment and Plan: creatinine ~ 1.5mg/dl in November 2023 suspect secondary to hypertension, peripheral vascular disease, and possibly chronic NSAID use as well as age-related change (3) Bacteremia: Code(s): R78.81 - Bacteremia Status: Acute Assessment and Plan: blood cultures with MRSA continue IV antibiotics follow repeat blood cultures source... MRI showed possible prevertebral abscess at the dens and possible discitis s/p psoas hematoma/abscess (4) Perforated gastric ulcer: Onset Date: 04/2024 Qualifiers: Gastric ulcer chronicity: acute Qualified Code(s): K25.1 - Acute gastric ulcer with perforation Code(s): K25.5 - Chronic or unspecified gastric ulcer with perforation Status: Acute Assessment and Plan: suspect secondary to NSAID use s/p exploratory laparotomy and repair of antral gastric ulcer with omental Clarence patch and placement of open gastrostomy tube (on 04/22) TPN discontinued bolus G-tube feedings with meals; continue oral feeding General Surgery following (5) Hematoma: Code(s): T14.8XXA - Other injury of unspecified body region, initial encounter Status: Acute Assessment and Plan: as noted by CT abdomen pelvis on 05/17/2024 likely a contributing component to anemia Lovenox on hold (6) Anemia: Code(s): D64.9 - Anemia, unspecified Status: Acute Assessment and Plan: noted acute drop (on 05/10, 05/11, and 05/12) requiring blood transfusion due to RIC, CKD, and acute illness along with CT scan findings on 05/17: Intramuscular hematoma of the right iliopsoas and psoas major muscles, with additional irregular hematoma extending to the posterior right retroperitoneum anemia studies also note iron deficiency PRBC transfusion per protocol on Epogen 3x/week (7) PAD (peripheral artery disease): Code(s): I73.9 - Peripheral vascular disease, unspecified Status: Acute Assessment and Plan: CTA of left lower extremity noted suspect acute on chronic issue was on anticoagulation but on hold due to #5 (8) Malnutrition following gastrointestinal surgery: Code(s): K91.2 - Postsurgical malabsorption, not elsewhere classified Status: Chronic Assessment and Plan: off TPN tube feeds ongoing with boluses attempting to transition to oral intake (but poor appetite noted) on appetite stimulant (9) HTN (hypertension): Code(s): I10 - Essential (primary) hypertension Status: Acute Assessment and Plan: reasonable control follow trend of hemodynamics (10) Generalized weakness: Code(s): R53.1 - Weakness Status: Acute Assessment and Plan: multifactorial PT/OT as tolerated Will continue to follow from a distance. Subjective Date/time seen: 05/29/24 11:25 Interval history: Follow-up for acute kidney injury/acute renal failure on chronic kidney disease. Chart reviewed since last seen -- tolerated IV albumin + IV bumex for diuresis for the past few days with good urine output noted; persistent bacteremia noted with MRSA; s/p recent psoas hematoma/abscess drain placement (with abscess culture growing Staph aureus); recent MRI also showed possible prevertebral abscess at the dens and possible discitis; given complex infectious disease issues, awaiting possible transfer to [facility]. Exam Narrative: General: elderly but WD/WN male in NAD Heart: normal S1 and S2; no rub Lungs: clear anteriorly; decreased at bases Abdomen: soft, nontender; some bowel sounds; +G-tube Extremities: no cyanosis or clubbing; trace edema Skin: warm and intact Objective Data Vital Signs Vital Signs: Vital Signs Temp Pulse Resp BP Pulse Ox O2 Del Method FiO2 05/29/24 11:00 98.4 F 77 20 163/58 H 94 05/29/24 08:59 92 Room Air 05/29/24 08:53 98.2 F 80 18 160/52 H 92 05/29/24 06:00 98.4 F 75 16 156/62 H 95 05/28/24 23:15 98.9 F 05/28/24 22:15 100.3 F H 05/28/24 21:16 100.4 F H 84 16 170/60 H 95 05/28/24 20:00 95 Room Air Intake/Output Intake/Output: Intake & Output 05/26/24 05/27/24 05/28/24 05/29/24 23:59 23:59 23:59 23:59 Intake Total 350 1030 1070 1690 Output Total 5000 3950 3100 1000 Balance -5589 -9155 -8694 690 Meds/Results Medications: Active Medications Generic Name Dose Route Start Last Admin Trade Name Freq PRN Reason Stop Dose Admin Acetaminophen 650 mg 04/26/24 22:19 04/26/24 22:57 Acetaminophen 650 Mg Suppository RECTAL 650 mg Q6H PRN Administration Mild Pain (1-3) or Fever Acetaminophen 650 mg 05/05/24 10:27 05/28/24 22:15 Acetaminophen Elixir 325 Mg/10.15 Ml Udc PO 650 mg Q6H PRN Administration Mild Pain (1-3) or Fever Alteplase, Recombinant 2 mg 05/22/24 21:26 05/22/24 21:57 Alteplase 2 Mg Vial (Cathflo) IV PUSH 2 mg ONCE PRN Administration Line Occlusion Amlodipine Besylate 5 mg 05/27/24 12:15 05/29/24 08:59 Amlodipine Besylate 5 Mg Tablet PO 5 mg DAILY ROSY Administration Artificial Tears 1 drop 04/27/24 08:37 05/29/24 15:35 Artificial Tears Ophth Soln 15 Ml Bottle EACH EYE 1 drop QID PRN Administration Dry Eye(s) Atorvastatin Calcium 20 mg 04/30/24 09:00 Atorvastatin 20 Mg Tablet BY MOUTH DAILY [facility] Benzocaine 1 lozenge 05/15/24 15:35 05/21/24 12:14 Benzocaine/Menthol (*Bkc) 18 Ea Lozenge PO 1 lozenge PRN PRN Administration Sore Throat Calcium Carbonate 500 mg 05/19/24 08:00 05/29/24 08:59 Calcium/Vitamin D 500 Mg/5 Mcg (200 I.U.) Tablet PO 500 mg DAILY@0800 [facility] Administration Clonidine HCl 1 patch 05/01/24 09:00 05/29/24 08:59 Clonidine 0.1 Mg/24 Hr Patch TRANSDERM 1 patch WEEKLY [facility] Administration Dextrose 12.5 gm 05/23/24 21:48 Dextrose 50% 25 Gm/50 Ml Syringe IV PUSH PRN PRN Hypoglycemia Protocol Dronabinol 2.5 mg 05/17/24 16:30 05/28/24 10:05 Dronabinol (*Crx) 2.5 Mg Capsule PO Not Given DAILY@1630 [facility] Enoxaparin Sodium 40 mg 05/25/24 09:00 05/26/24 09:47 Enoxaparin 40 Mg/0.4 Ml Syringe SUB-Q 40 mg DAILY [facility] Administration Epoetin Olu-epbx 10,000 units 05/14/24 11:05 05/28/24 08:46 Epoetin Olu-Epbx 10,000 Units/Ml Vial SUB-Q 10,000 units TUTHSA@09 [facility] Administration Glucagon 1 mg 05/23/24 21:48 Glucagon For Inj 1 Mg Vial IM PRN PRN Hypoglycemia Protocol Glucose 15 gm 05/23/24 21:48 Glucose Oral Gel 15 Gm Of Glucse In 37.5 Gm Tube PO PRN PRN Hypoglycemia Protocol Guaifenesin/Dextromethorphan 10 ml 05/15/24 10:07 05/22/24 01:23 Guaifenesin/Dextromethorphan 10 Ml Udc PO 10 ml Q4H PRN Administration Cough Hydralazine HCl 10 mg 04/25/24 08:00 05/26/24 21:42 Hydralazine Hcl 20 Mg/Ml Vial IV PUSH 10 mg Q4H PRN Administration Blood Pressure - High Vancomycin HCl 1,000 mg in 250 mls @ 250 mls/hr 05/25/24 06:00 05/29/24 06:23 Vancomycin 1,000 Mg/Ns 250 Ml IVPB Infused Q24H ROSY Infusion Ipratropium [place] 0.5 mg 05/04/24 09:32 05/17/24 10:11 Ipratropium Br 0.02% Inh Soln 0.5 Mg/2.5 Ml Vial INHALATION 0.5 mg Q6HRT PRN Administration Shortness Of Breath Levalbuterol HCl 0.63 mg 05/04/24 09:32 05/17/24 10:11 Levalbuterol Neb 1.25 Mg/3 Ml INHALATION 0.63 mg Q6HRT PRN Administration Shortness Of Breath Lidocaine 1 patch 05/18/24 09:00 05/29/24 09:00 Lidocaine 5% Patch TRANSDERM 1 patch DAILY ROSY Administration Lisinopril 40 mg 05/20/24 15:05 05/29/24 08:59 Lisinopril 20 Mg Tablet BY MOUTH 40 mg DAILY ROSY Administration Lorazepam 0.5 mg 05/16/24 13:48 05/22/24 09:54 Lorazepam (*Crx) 0.5 Mg Tablet PO 0.5 mg Q6H PRN Administration Anxiety Ondansetron HCl 4 mg 05/13/24 11:22 05/21/24 05:44 Ondansetron Inj 4 Mg/2 Ml Vial IV PUSH 4 mg Q6H PRN Administration Nausea And Vomiting Pantoprazole Sodium 40 mg 05/23/24 09:00 05/29/24 09:36 Pantoprazole 40 Mg Tablet PO Not Given QAM ROSY Sodium Chloride 10 ml 05/04/24 14:15 Central Line Flush IV PUSH PRN PRN with TPN bag changes Sodium Chloride 20 ml 05/04/24 14:15 05/25/24 04:29 Central Line Flush IV PUSH 20 ml PRN PRN Administration after blood draws Radiology Results: ITS Impressions Chest/Abdomen/Pelvis CTA 04/22/24 18:10 IMPRESSION: Perforated viscus with a large amount of free air and fluid, with mural thickening in the distal stomach and multiple punctate foci of extraluminal air in this area for which site of perforation is suspected. Renal Ultrasound 04/24/24 11:58 IMPRESSION: Simple cyst in the left kidney upper pole. Other appearances are unremarkable. Lower Extremity CTA 05/02/24 16:36 IMPRESSION: 1. Scattered atherosclerotic plaque in the arteries of the left lower limb as detailed above without a discrete hemodynamic significant stenosis. Runoff below the ankle in the left posterior tibial artery this supplies the foot. Atretic distal peroneal and anterior tibial arteries with intraluminal contrast becoming indiscernible at the level of the ankle and with no appreciable contrast in the dorsalis pedis artery. Upper GI Series 05/09/24 09:31 IMPRESSION: 1. Ulcer of the gastric antrum with contained extraluminal contrast similar to 04/28/2024. The extraluminal contrast distribution is worse than typically seen after Clarence patch repair. Abdomen CT 05/09/24 15:27 IMPRESSION: Redemonstration of a tract extending from the posterior superior margin of the antrum of the stomach only partially filled with oral contrast, perhaps demonstrating early healing. Abdomen/Pelvis CT 05/17/24 09:03 Impression: Persistent wall thickening of the gastric antrum/duodenum with surrounding haziness, compatible postoperative change. There is persistent irregular tract with small amount of fluid and external air extending from the gastric antrum superiorly/anteriorly, which could reflect abscess or persistent contained perforation. No extraluminal contrast seen, and no oral contrast seen within this collection. Intramuscular hematoma of the right iliopsoas and psoas major muscles, with additional irregular hematoma extending to the posterior right retroperitoneum. Bilateral fat-containing inguinal hernias. Small bilateral pleural effusions. Chest/Abdomen/Pelvis CT 05/22/24 14:37 IMPRESSION: Nodular opacities in the right upper lobe and right middle lobe, likely representing small infectious/inflammatory foci. Segmental bibasilar atelectasis/consolidation. Small bilateral simple pleural effusions. Cardiomegaly with trace pericardial fluid. Peritoneal gas anterior to the stomach secondary to antral perforation, with possible small adjacent abscess or fistulous tract. Nonfluid density peritoneal and psoas collections, may represent complex ascites from bowel content, blood, or phlegmon, or combination thereof. Significant body wall edema. Hand X-Ray 05/23/24 13:08 IMPRESSION: 1. No acute fracture. 2. Likely chronic malalignment at the wrist and carpus including 1 cm ulnar minus variance and disruption of the proximal carpal row which is most likely sequela of old trauma. 3. 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 4. Multiple subarticular lucencies at the wrist and carpus most likely degenerative subchondral cyst although differential includes chronic erosion such as in the setting of gout. Modified Barium Swallow 05/26/24 15:19 IMPRESSION: Oropharyngeal dysphagia with recurrent laryngeal penetration and aspiration. Please correlate with speech pathologist findings and specific feeding recommendations. Cervical Spine MRI 05/26/24 17:21 IMPRESSION: 1. Prevertebral/retropharyngeal soft tissue swelling anterior to the mid to upper cervical spine with peripheral enhancing fluid collection potentially a small abscess just right of midline at the level of the base of the dens. Findings were discussed with Dashawn Stevens, the nurse caring for the patient, at 6:18 PM. 2. Severe cervical spondylosis with no evident discitis or osteomyelitis. Thoracic Spine MRI 05/26/24 17:45 IMPRESSION: 1. Moderate thoracic spondylosis with no evident discitis or ostomy myelitis. 2. Small bilateral pleural effusions with dependent atelectasis versus pneumonia in the bilateral lower lobes. Lumbar Spine MRI 05/26/24 17:53 IMPRESSION: 1. Severe lumbar spondylosis with prominent increased disc signal at L1-L2 through L4-L5. Increased fluid signal is likely artifact of feculent phenomena which is seen at the same levels on locations on the prior CT although could not absent exclude discitis given the presence of a nearby complex loculated right psoas muscle fluid collection with increased T1 signal suggesting this is due to hematoma although this could potentially be secondarily infected. Bone marrow signal remains normal with no measurable enhancement along the endplates but no appreciable edema to more specifically elevated concern for discitis or osteomyelitis. Would consider percutaneous abscess drainage with Gram stain and culture of the right psoas fluid collection. Findings were discussed with Dashawn Stevens, the nurse caring for the patient, at 6:[address] 05/27/24 17:21 IMPRESSION: 1. Successful CT-guided right psoas muscle fluid collection drainage catheter placement. 2. 5 mL fluid was sent for aerobic and anaerobic cultures. 3. The catheter will be managed by Dr. Aguiar. Labs Labs: Laboratory Tests 05/29/24 04:40 05/29/24 04:40 Calcium 8.9 Magnesium 2.0 Total Bilirubin 0.6 AST 38 ALT 19 Alkaline Phosphatase 89 NT-Pro-B Natriuret Pep 1260 H Total Protein 7.0 Albumin 3.0 L Microbiology 05/26/24 09:33 Blood Blood Culture - Preliminary Staphylococcus aureus 05/27/24 16:26 Abscess Anaerobic Culture - Preliminary 05/27/24 16:26 Abscess Aerobic Culture - Preliminary Staphylococcus aureus 05/28/24 08:53 Blood Blood Culture - Preliminary 05/28/24 08:28 Blood Blood Culture - Preliminary
--- NOTE | 2024-05-29 11:34 | P.PNIM_ITS ---
Progress Note: A&P Assessment and Plan (1) Sepsis: Code(s): A41.9 - Sepsis, unspecified organism Status: Resolved Assessment and Plan: Meets SIRS criteria: Tachycardia, Febrile, Leukocytosis Blood culture positive x2 from 05/18 repeat blood culture 05/22 still negative and / positive for GPC in clusters Continue IV Vancomycin Cardiology noted that patient is not a candidate for EMPERATRIZ MRI showed possible prevertebral abscess at the dens and possible discitis s/p Psoas hematoma/abscess drainage Abscess culture pending awaiting transfer to [facility] (2) MRSA (methicillin resistant staph aureus) culture positive: Code(s): Z22.322 - Carrier or suspected carrier of Methicillin resistant Staphylococcus aureus Status: Acute Assessment and Plan: see above care (3) Bacteremia: Code(s): R78.81 - Bacteremia Status: Acute Assessment and Plan: MRSA bacteremia Blood culture still positive 05/24 continue above care Continue repeat blood cultures (4) Perforated abdominal viscus: Code(s): R19.8 - Other specified symptoms and signs involving the digestive system and abdomen Status: Acute Assessment and Plan: Septic shock from peritonitis with perforated gastric ulcer s/p laparotomy with repair repeat CT chest/AP nodular opacities in the right upper lobe and right middle lobe, peritoneal gas ant to stomach with possible small adjacent abscess or fistulous tract Surgery evaluated and noted not abscess is persistent finding not big enough for drainage Continue Peg Tube feeding for now. Gen surgery following (5) Pneumonia: Code(s): J18.9 - Pneumonia, unspecified organism Status: Acute Assessment and Plan: * Nodular opacities in the right upper lobe and right middle lobe, likely representing small infectious/inflammatory foci. 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 * Patient advanced to soft diet per General surgery recommendation * Continue to encourage po intake * Bolus tube feeding via G tube * add reglan and Marinol (7) Dysphagia: Code(s): R13.10 - Dysphagia, unspecified Status: Acute Assessment and Plan: * See plan above * continue tube feeding * Advance diet per Speech (8) Right wrist pain: Code(s): M25.531 - Pain in right wrist Status: Acute Assessment and Plan: * Patient started c/o of right wrist pain on 05/23 * Likely related to repeated blood culture attempts * XR hand RT 2V: No acute fracture. 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 Multiple subarticular lucencies at the wrist and carpus * Physical exam benign (9) Acute kidney injury superimposed on stage 3b chronic kidney disease: Code(s): N17.9 - Acute kidney failure, unspecified; N18.32 - Chronic kidney disease, stage 3b Status: Acute Assessment and Plan: * baseline creatinine most likely around 1.5 * Nephrology following * Renal ultrasound was unremarkable for any acute issues. * Restarted Lasix, holding IVF * Cr 4.03 -> 1.51 * Continue trending (10) Hematoma: Code(s): T14.8XXA - Other injury of unspecified body region, initial encounter Status: Acute Assessment and Plan: * CT abdomen pelvis on 05/17/2024 shows: Intramuscular hematoma of the right iliopsoas and psoas major muscles, with additional irregular hematoma extending to the posterior right retroperitoneum. * Spoke with surgery likely noninfective * Lidocaine patch * Lovenox on hold, no recent found for therapeutic Lovenox, when patient was placed back on Lovenox likely benefit from the 40 mg (11) Pleural effusion: Code(s): J90 - Pleural effusion, not elsewhere classified Status: Acute Assessment and Plan: * Seen on CT * Chest x-ray dated compare * Likely due to 3rd spacing * Stable (12) Anemia: Code(s): D64.9 - Anemia, unspecified Status: Acute Assessment and Plan: Iron deficiency anemia on acute loss Stable * Trend CBC. * transfuse if hgb <7.0, or symptomatic * Iron replacement * hb 8.9 (13) HTN (hypertension): Code(s): I10 - Essential (primary) hypertension Status: Acute Assessment and Plan: Controlled * Continue Clonidine patch and Hydralazine PRN. * Trend BP (14) Generalized weakness: Code(s): R53.1 - Weakness Status: Acute Assessment and Plan: * PT/OT-maxi move use for transfer * Patient will likely need placement * No changes to current plan (15) Hypokalemia: Code(s): E87.6 - Hypokalemia Status: Acute Assessment and Plan: Improved * Trend labs * Replace as indicated (16) Hypernatremia: Code(s): E87.0 - Hyperosmolality and hypernatremia Status: Acute Assessment and Plan: Resolved Daily BMP Plan Possible Discitis vs osteomyelitis MRI spine showed increased disc signal at L1-2 through l4-5 also increase T1 signal with adjacent complex loculated right psoas muscle fluid collection, hematoma vs abscess Continue abx as above and abscess culture positive for Staph aureus Awaiting transfer to [facility] Psoas muscle hematoma vs abscess MRI reviewed S/p drainage and culture positive for Staph Aureus, sensitivity pending continue abscess drainage continue above care DVT prophylaxis on Sq Lovenox Awaiting transfer to [facility] Subjective Date/time seen: 05/29/24 11:34 Interval history: Comfortable at bedside and awaiting transfer to [facility] Abscess is positive for Staph aureus Review of Systems Review of Systems: 12 systems were reviewed and are negativ e except for as per HPI. All systems reviewed & are unremarkable except as noted in HPI and below ROS unobtainable: Yes unobtainable due to endotracheal tube and unobtainable due to medical condition Exam Narrative: General: Ill appearing, appears stated age. HEENT: normocephalic, atraumatic. Mucous membranes moist. EOMI, PERRLA, bilateral sclera anicteric, no conjunctival injection. Respiratory: clear to ascultation bilaterally. No rales/rhonic/wheezes. Cardiovascular: Regular rate and rhythm, normal S1-S2 upon ascultation. No murmurs, rubs, or clicks. Capillary refill less than 3 second. Abdomen: Soft, round, no pulsatile masses, nondistended and nontender. No rebound, no guarding. Bowel sounds present to all four quadrants. No high pitch or tinkling sounds. Extremities: 2 + edema to both LE. No cyanosis, clubbing present. Pulses are palpable 2/2. Active ROM to all four extremities. Neuro: Alert and orientated x 4. PERRLA. Cranial nerves 2-12 intact without focal deficit. Skin: Warm, dry, and intact, without rash, erythema, or lesion. Psych: pleasant, cooperative, normal speech, normal affect, no hallucinations, no dysarthia Skin: G-tube site clean with G-tube in place and clamped. Gauze dressing in place in the right upper quadrant and left upper quadrant from previous ELSA drains, gauze dressing dry and intact. Const: General: comfortable, no acute distress and uncomfortable Other: Acutely ill-appearing, obese HENMT: Other: Mucous membranes are dry, head is normocephalic atraumatic, few missing teeth, bridge in the lower jaw Eyes: Other: Pupils are equal and reactive, no scleral icterus Neck: Other: No JVD, trachea midline Resp: Effort & Inspection: normal respiratory effort Auscultation: clear to auscultation bilaterally and diminished lung sounds Other: Cardio: Rate: regular rate Rhythm: regular rhythm Other: Telemetry SR 85. GI: Auscultation: normal bowel sounds Other: Gastrostomy tube in place with dry gauze dressing and skin around the G-tube without erythema or drainage. Incision dry with steri strips intact, no erythema. Slightly distended. : Other: Bowman catheter in place was a small amount of turbid yellow urine Urinary Catheter: Urinary Catheter: patent and draining Skin: Other: Generally cold to touch, 2nd cap refill, fingers and toes are cyanotic Neuro: Speech: normal speech Other: Pupils are reactive, equal Extrem: General: pedal edema bilaterally 2+ Other: 2+PP bilateral feet are warm. Psych: Mental Status: mental status grossly normal Affect: normal affect Other: Unable to assess due to patient condition Objective Data Vital Signs Vital Signs: Vital Signs - 24 hr 05/28/24 14:00 05/28/24 20:00 05/28/24 21:16 Temperature 98.2 F 100.4 F H Pulse Rate 88 84 Respiratory Rate 20 16 Blood Pressure 178/57 H 170/60 H Pulse Oximetry 95 95 95 Oxygen Delivery Room Air 05/28/24 22:15 05/28/24 23:15 05/29/24 06:00 Temperature 100.3 F H 98.9 F 98.4 F Pulse Rate 75 Respiratory Rate 16 Blood Pressure 156/62 H Pulse Oximetry 95 Oxygen Delivery 05/29/24 08:53 05/29/24 08:59 Temperature 98.2 F Pulse Rate 80 Respiratory Rate 18 Blood Pressure 160/52 H Pulse Oximetry 92 92 Oxygen Delivery Room Air Intake/Output Intake/Output: Intake & Output 05/26/24 05/27/24 05/28/24 05/29/24 23:59 23:59 23:59 23:59 Intake Total 350 1030 1070 1330 Output Total 5000 3950 3100 1000 Balance -9635 -3944 -9623 330 Meds/Results Medications: Active Medications Generic Name Dose Route Start Last Admin Trade Name Freq PRN Reason Stop Dose Admin Acetaminophen 650 mg 04/26/24 22:19 04/26/24 22:57 Acetaminophen 650 Mg Suppository RECTAL 650 mg Q6H PRN Administration Mild Pain (1-3) or Fever Acetaminophen 650 mg 05/05/24 10:27 05/28/24 22:15 Acetaminophen Elixir 325 Mg/10.15 Ml Udc PO 650 mg Q6H PRN Administration Mild Pain (1-3) or Fever Alteplase, Recombinant 2 mg 05/22/24 21:26 05/22/24 21:57 Alteplase 2 Mg Vial (Cathflo) IV PUSH 2 mg ONCE PRN Administration Line Occlusion Amlodipine Besylate 5 mg 05/27/24 12:15 05/29/24 08:59 Amlodipine Besylate 5 Mg Tablet PO 5 mg DAILY ROSY Administration Artificial Tears 1 drop 04/27/24 08:37 05/23/24 09:35 Artificial Tears Ophth Soln 15 Ml Bottle EACH EYE 1 drop QID PRN Administration Dry Eye(s) Atorvastatin Calcium 20 mg 04/30/24 09:00 Atorvastatin 20 Mg Tablet BY MOUTH DAILY ROSY Benzocaine 1 lozenge 05/15/24 15:35 05/21/24 12:14 Benzocaine/Menthol (*Bkc) 18 Ea Lozenge PO 1 lozenge PRN PRN Administration Sore Throat Calcium Carbonate 500 mg 05/19/24 08:00 05/29/24 08:59 Calcium/Vitamin D 500 Mg/5 Mcg (200 I.U.) Tablet PO 500 mg DAILY@0800 [facility] Administration Clonidine HCl 1 patch 05/01/24 09:00 05/29/24 08:59 Clonidine 0.1 Mg/24 Hr Patch TRANSDERM 1 patch WEEKLY ROSY Administration Dextrose 12.5 gm 05/23/24 21:48 Dextrose 50% 25 Gm/50 Ml Syringe IV PUSH PRN PRN Hypoglycemia Protocol Dronabinol 2.5 mg 05/17/24 16:30 05/28/24 10:05 Dronabinol (*Crx) 2.5 Mg Capsule PO Not Given DAILY@1630 [facility] Enoxaparin Sodium 40 mg 05/25/24 09:00 05/26/24 09:47 Enoxaparin 40 Mg/0.4 Ml Syringe SUB-Q 40 mg DAILY ROSY Administration Epoetin Olu-epbx 10,000 units 05/14/24 11:05 05/28/24 08:46 Epoetin Olu-Epbx 10,000 Units/Ml Vial SUB-Q 10,000 units TUTHSA@09 ROSY Administration Glucagon 1 mg 05/23/24 21:48 Glucagon For Inj 1 Mg Vial IM PRN PRN Hypoglycemia Protocol Glucose 15 gm 05/23/24 21:48 Glucose Oral Gel 15 Gm Of Glucse In 37.5 Gm Tube PO PRN PRN Hypoglycemia Protocol Guaifenesin/Dextromethorphan 10 ml 05/15/24 10:07 05/22/24 01:23 Guaifenesin/Dextromethorphan 10 Ml Udc PO 10 ml Q4H PRN Administration Cough Hydralazine HCl 10 mg 04/25/24 08:00 05/26/24 21:42 Hydralazine Hcl 20 Mg/Ml Vial IV PUSH 10 mg Q4H PRN Administration Blood Pressure - High Vancomycin HCl 1,000 mg in 250 mls @ 250 mls/hr 05/25/24 06:00 05/29/24 06:23 Vancomycin 1,000 Mg/Ns 250 Ml IVPB Infused Q24H ROSY Infusion Ipratropium [place] 0.5 mg 05/04/24 09:32 05/17/24 10:11 Ipratropium Br 0.02% Inh Soln 0.5 Mg/2.5 Ml Vial INHALATION 0.5 mg Q6HRT PRN Administration Shortness Of Breath Levalbuterol HCl 0.63 mg 05/04/24 09:32 05/17/24 10:11 Levalbuterol Neb 1.25 Mg/3 Ml INHALATION 0.63 mg Q6HRT PRN Administration Shortness Of Breath Lidocaine 1 patch 05/18/24 09:00 05/29/24 09:00 Lidocaine 5% Patch TRANSDERM 1 patch DAILY ROSY Administration Lisinopril 40 mg 05/20/24 15:05 05/29/24 08:59 Lisinopril 20 Mg Tablet BY MOUTH 40 mg DAILY ROSY Administration Lorazepam 0.5 mg 05/16/24 13:48 05/22/24 09:54 Lorazepam (*Crx) 0.5 Mg Tablet PO 0.5 mg Q6H PRN Administration Anxiety Ondansetron HCl 4 mg 05/13/24 11:22 05/21/24 05:44 Ondansetron Inj 4 Mg/2 Ml Vial IV PUSH 4 mg Q6H PRN Administration Nausea And Vomiting Pantoprazole Sodium 40 mg 05/23/24 09:00 05/29/24 09:36 Pantoprazole 40 Mg Tablet PO Not Given QAM ROSY Sodium Chloride 10 ml 05/04/24 14:15 Central Line Flush IV PUSH PRN PRN with TPN bag changes Sodium Chloride 20 ml 05/04/24 14:15 05/25/24 04:29 Central Line Flush IV PUSH 20 ml PRN PRN Administration after blood draws Radiology Results: ITS Impressions Chest/Abdomen/Pelvis CTA 04/22/24 18:10 IMPRESSION: Perforated viscus with a large amount of free air and fluid, with mural thickening in the distal stomach and multiple punctate foci of extraluminal air in this area for which site of perforation is suspected. Renal Ultrasound 04/24/24 11:58 IMPRESSION: Simple cyst in the left kidney upper pole. Other appearances are unremarkable. Lower Extremity CTA 05/02/24 16:36 IMPRESSION: 1. Scattered atherosclerotic plaque in the arteries of the left lower limb as detailed above without a discrete hemodynamic significant stenosis. Runoff below the ankle in the left posterior tibial artery this supplies the foot. Atretic distal peroneal and anterior tibial arteries with intraluminal contrast becoming indiscernible at the level of the ankle and with no appreciable contrast in the dorsalis pedis artery. Upper GI Series 05/09/24 09:31 IMPRESSION: 1. Ulcer of the gastric antrum with contained extraluminal contrast similar to 04/28/2024. The extraluminal contrast distribution is worse than typically seen after Clarence patch repair. Abdomen CT 05/09/24 15:27 IMPRESSION: Redemonstration of a tract extending from the posterior superior margin of the antrum of the stomach only partially filled with oral contrast, perhaps demonstrating early healing. Abdomen/Pelvis CT 05/17/24 09:03 Impression: Persistent wall thickening of the gastric antrum/duodenum with surrounding h aziness, compatible postoperative change. There is persistent irregular tract with small amount of fluid and external air extending from the gastric antrum superiorly/anteriorly, which could reflect abscess or persistent contained perforation. No extraluminal contrast seen, and no oral contrast seen within this collection. Intramuscular hematoma of the right iliopsoas and psoas major muscles, with additional irregular hematoma extending to the posterior right retroperitoneum. Bilateral fat-containing inguinal hernias. Small bilateral pleural effusions. Chest/Abdomen/Pelvis CT 05/22/24 14:37 IMPRESSION: Nodular opacities in the right upper lobe and right middle lobe, likely representing small infectious/inflammatory foci. Segmental bibasilar atelectasis/consolidation. Small bilateral simple pleural effusions. Cardiomegaly with trace pericardial fluid. Peritoneal gas anterior to the stomach secondary to antral perforation, with possible small adjacent abscess or fistulous tract. Nonfluid density peritoneal and psoas collections, may represent complex ascites from bowel content, blood, or phlegmon, or combination thereof. Significant body wall edema. Hand X-Ray 05/23/24 13:08 IMPRESSION: 1. No acute fracture. 2. Likely chronic malalignment at the wrist and carpus including 1 cm ulnar minus variance and disruption of the proximal carpal row which is most likely sequela of old trauma. 3. 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 4. Multiple subarticular lucencies at the wrist and carpus most likely degenerative subchondral cyst although differential includes chronic erosion such as in the setting of gout. Chest X-Ray 05/23/24 21:33 IMPRESSION: Left basilar atelectasis versus pneumonia. Cardiomegaly with congestive kristian and interstitial thickening which may indicate cardiac decompensation and pulmonary edema. Clinical correlation advised. Pneumonitis is not excluded. Modified Barium Swallow 05/26/24 15:19 IMPRESSION: Oropharyngeal dysphagia with recurrent laryngeal penetration and aspiration. Please correlate with speech pathologist findings and specific feeding recommendations. Cervical Spine MRI 05/26/24 17:21 IMPRESSION: 1. Prevertebral/retropharyngeal soft tissue swelling anterior to the mid to upper cervical spine with peripheral enhancing fluid collection potentially a small abscess just right of midline at the level of the base of the dens. Findings were discussed with Dashawn Stevens, the nurse caring for the patient, at 6:18 PM. 2. Severe cervical spondylosis with no evident discitis or osteomyelitis. Thoracic Spine MRI 05/26/24 17:45 IMPRESSION: 1. Moderate thoracic spondylosis with no evident discitis or ostomy myelitis. 2. Small bilateral pleural effusions with dependent atelectasis versus pneumonia in the bilateral lower lobes. Lumbar Spine MRI 05/26/24 17:53 IMPRESSION: 1. Severe lumbar spondylosis with prominent increased disc signal at L1-L2 through L4-L5. Increased fluid signal is likely artifact of feculent phenomena which is seen at the same levels on locations on the prior CT although could not absent exclude discitis given the presence of a nearby complex loculated right psoas muscle fluid collection with increased T1 signal suggesting this is due to hematoma although this could potentially be secondarily infected. Bone marrow signal remains normal with no measurable enhancement along the endplates but no appreciable edema to more specifically elevated concern for discitis or osteomyelitis. Would consider percutaneous abscess drainage with Gram stain and culture of the right psoas fluid collection. Findings were discussed with Dashawn Stevens, the nurse caring for the patient, at 6:[address] 05/27/24 17:21 IMPRESSION: 1. Successful CT-guided right psoas muscle fluid collection drainage catheter placement. 2. 5 mL fluid was sent for aerobic and anaerobic cultures. 3. The catheter will be managed by Dr. Aguiar. Labs Labs: Laboratory Results - last 24 hr 05/29/24 04:40 WBC 9.9 RBC 2.94 L Hgb 8.5 L Hct 28.8 L MCV 98.0 MCH 28.9 MCHC 29.5 L RDW 16.5 H Plt Count 236 MPV 11.6 H Immature Gran % (Auto) 1.1 H Neut % (Auto) 69.0 Lymph % (Auto) 17.7 L Holmes % (Auto) 8.1 Eos % (Auto) 3.7 Baso % (Auto) 0.4 Lymph # (Auto) 1.76 Holmes # (Auto) 0.8 H Eos # (Auto) 0.4 H Baso # (Auto) 0.0 Abs Immat Gran (auto) 0.11 H Absolute Neuts (auto) 6.9 H Absolute Nucleated RBC 0.000 Nucleated RBC % 0.0 Sodium 143 Potassium 3.4 Chloride 102 Carbon Dioxide 36 H Anion Gap 5 BUN 51 H Creatinine 1.73 H Estim Creat Clear Calc 46 Estimated GFR 39 L Glucose 123 H Calcium 8.9 Magnesium 2.0 Total Bilirubin 0.6 AST 38 ALT 19 Alkaline Phosphatase 89 NT-Pro-B Natriuret Pep 1260 H Total Protein 7.0 Albumin 3.0 L Quality VTE Prophylaxis VTE prophylaxis: mechanical ordered and pharmacologic ordered
--- NOTE | 2024-05-29 11:52 | P.PNGS_ITS ---
Progress Note: A&P Assessment and Plan (1) Perforated gastric ulcer: Onset Date: 04/2024 Qualifiers: Gastric ulcer chronicity: acute Qualified Code(s): K25.1 - Acute gastric ulcer with perforation Code(s): K25.5 - Chronic or unspecified gastric ulcer with perforation Status: Acute Assessment and Plan: * Tolerating G-tube feedings. (2) Psoas abscess, right: Code(s): K68.12 - Psoas muscle abscess Status: Acute Assessment and Plan: * Status post percutaneous drain placed 05/27/2024. Drain appears mostly to be old blood. * Cultures growing S. aureus. (3) MRSA bacteremia: Code(s): R78.81 - Bacteremia; B95.62 - Methicillin resistant Staphylococcus aureus infection as the cause of diseases classified elsewhere Status: Acute Assessment and Plan: * Repeat cultures negative so far. Multiple potential sources. (4) Abnormal MRI, neck: Code(s): R93.89 - Abnormal findings on diagnostic imaging of other specified body structures Status: Acute (5) Stage 3b chronic kidney disease: Code(s): N18.32 - Chronic kidney disease, stage 3b Status: Chronic (6) Malnutrition following gastrointestinal surgery: Code(s): K91.2 - Postsurgical malabsorption, not elsewhere classified Status: Chronic Subjective Subjective Date/Time Seen: 05/29/24 11:52 Interval history: No significant changes. Tolerating tube feeds. Exam GI: Inspection: non-distended and other (Psoas pigtail drain with dark bloody output) GI Palp: Yes Soft to palpation, No Tenderness to palpation present (GI) and No Guarding due to palpation present (GI) Objective Data Vital Signs Vital Signs: Vital Signs - 24 hr 05/28/24 14:00 05/28/24 20:00 05/28/24 21:16 Temperature 98.2 F 100.4 F H Pulse Rate 88 84 Respiratory Rate 20 16 Blood Pressure 178/57 H 170/60 H Pulse Oximetry 95 95 95 Oxygen Delivery Room Air 05/28/24 22:15 05/28/24 23:15 05/29/24 06:00 Temperature 100.3 F H 98.9 F 98.4 F Pulse Rate 75 Respiratory Rate 16 Blood Pressure 156/62 H Pulse Oximetry 95 Oxygen Delivery 05/29/24 08:53 04/20/25 08:59 Temperature 98.2 F Pulse Rate 80 Respiratory Rate 18 Blood Pressure 160/52 H Pulse Oximetry 92 92 Oxygen Delivery Room Air Intake/Output Intake/Output: Intake & Output 05/26/24 05/27/24 05/28/24 05/29/24 23:59 23:59 23:59 23:59 Intake Total 350 1030 1070 1330 Output Total 5000 3950 3100 1000 Balance -4878 -2069 -7253 330 Meds/Results Medications: Active Medications Generic Name Dose Route Start Last Admin Trade Name Freq PRN Reason Stop Dose Admin Acetaminophen 650 mg 04/26/24 22:19 04/26/24 22:57 Acetaminophen 650 Mg Suppository RECTAL 650 mg Q6H PRN Administration Mild Pain (1-3) or Fever Acetaminophen 650 mg 05/05/24 10:27 05/28/24 22:15 Acetaminophen Elixir 325 Mg/10.15 Ml Udc PO 650 mg Q6H PRN Administration Mild Pain (1-3) or Fever Alteplase, Recombinant 2 mg 05/22/24 21:26 05/22/24 21:57 Alteplase 2 Mg Vial (Cathflo) IV PUSH 2 mg ONCE PRN Administration Line Occlusion Amlodipine Besylate 5 mg 05/27/24 12:15 05/29/24 08:59 Amlodipine Besylate 5 Mg Tablet PO 5 mg DAILY ROSY Administration Artificial Tears 1 drop 04/27/24 08:37 05/23/24 09:35 Artificial Tears Ophth Soln 15 Ml Bottle EACH EYE 1 drop QID PRN Administration Dry Eye(s) Atorvastatin Calcium 20 mg 04/30/24 09:00 Atorvastatin 20 Mg Tablet BY MOUTH DAILY ROSY Benzocaine 1 lozenge 05/15/24 15:35 05/21/24 12:14 Benzocaine/Menthol (*Bkc) 18 Ea Lozenge PO 1 lozenge PRN PRN Administration Sore Throat Calcium Carbonate 500 mg 05/19/24 08:00 05/29/24 08:59 Calcium/Vitamin D 500 Mg/5 Mcg (200 I.U.) Tablet PO 500 mg DAILY@0800 ROSY Administration Clonidine HCl 1 patch 05/01/24 09:00 05/29/24 08:59 Clonidine 0.1 Mg/24 Hr Patch TRANSDERM 1 patch WEEKLY ROSY Administration Dextrose 12.5 gm 05/23/24 21:48 Dextrose 50% 25 Gm/50 Ml Syringe IV PUSH PRN PRN Hypoglycemia Protocol Dronabinol 2.5 mg 05/17/24 16:30 05/28/24 10:05 Dronabinol (*Crx) 2.5 Mg Capsule PO Not Given DAILY@1630 [facility] Enoxaparin Sodium 40 mg 05/25/24 09:00 05/26/24 09:47 Enoxaparin 40 Mg/0.4 Ml Syringe SUB-Q 40 mg DAILY [facility] Administration Epoetin Olu-epbx 10,000 units 05/14/24 11:05 05/28/24 08:46 Epoetin Olu-Epbx 10,000 Units/Ml Vial SUB-Q 10,000 units TUTHSA@09 [facility] Administration Glucagon 1 mg 05/23/24 21:48 Glucagon For Inj 1 Mg Vial IM PRN PRN Hypoglycemia Protocol Glucose 15 gm 05/23/24 21:48 Glucose Oral Gel 15 Gm Of Glucse In 37.5 Gm Tube PO PRN PRN Hypoglycemia Protocol Guaifenesin/Dextromethorphan 10 ml 05/15/24 10:07 05/22/24 01:23 Guaifenesin/Dextromethorphan 10 Ml Udc PO 10 ml Q4H PRN Administration Cough Hydralazine HCl 10 mg 04/25/24 08:00 05/26/24 21:42 Hydralazine Hcl 20 Mg/Ml Vial IV PUSH 10 mg Q4H PRN Administration Blood Pressure - High Vancomycin HCl 1,000 mg in 250 mls @ 250 mls/hr 05/25/24 06:00 05/29/24 06:23 Vancomycin 1,000 Mg/Ns 250 Ml IVPB Infused Q24H [facility] Infusion Ipratropium [place] 0.5 mg 05/04/24 09:32 05/17/24 10:11 Ipratropium Br 0.02% Inh Soln 0.5 Mg/2.5 Ml Vial INHALATION 0.5 mg Q6HRT PRN Administration Shortness Of Breath Levalbuterol HCl 0.63 mg 05/04/24 09:32 05/17/24 10:11 Levalbuterol Neb 1.25 Mg/3 Ml INHALATION 0.63 mg Q6HRT PRN Administration Shortness Of Breath Lidocaine 1 patch 05/18/24 09:00 05/29/24 09:00 Lidocaine 5% Patch TRANSDERM 1 patch DAILY ROSY Administration Lisinopril 40 mg 05/20/24 15:05 05/29/24 08:59 Lisinopril 20 Mg Tablet BY MOUTH 40 mg DAILY ROSY Administration Lorazepam 0.5 mg 05/16/24 13:48 05/22/24 09:54 Lorazepam (*Crx) 0.5 Mg Tablet PO 0.5 mg Q6H PRN Administration Anxiety Ondansetron HCl 4 mg 05/13/24 11:22 05/21/24 05:44 Ondansetron Inj 4 Mg/2 Ml Vial IV PUSH 4 mg Q6H PRN Administration Nausea And Vomiting Pantoprazole Sodium 40 mg 05/23/24 09:00 05/29/24 09:36 Pantoprazole 40 Mg Tablet PO Not Given QAM ROSY Sodium Chloride 10 ml 05/04/24 14:15 Central Line Flush IV PUSH PRN PRN with TPN bag changes Sodium Chloride 20 ml 05/04/24 14:15 05/25/24 04:29 Central Line Flush IV PUSH 20 ml PRN PRN Administration after blood draws Radiology Results: ITS Impressions Chest/Abdomen/Pelvis CTA 04/22/24 18:10 IMPRESSION: Perforated viscus with a large amount of free air and fluid, with mural thickening in the distal stomach and multiple punctate foci of extraluminal air in this area for which site of perforation is suspected. Renal Ultrasound 04/24/24 11:58 IMPRESSION: Simple cyst in the left kidney upper pole. Other appearances are unremarkable. Lower Extremity CTA 05/02/24 16:36 IMPRESSION: 1. Scattered atherosclerotic plaque in the arteries of the left lower limb as detailed above without a discrete hemodynamic significant stenosis. Runoff below the ankle in the left posterior tibial artery this supplies the foot. Atretic distal peroneal and anterior tibial arteries with intraluminal contrast becoming indiscernible at the level of the ankle and with no appreciable contrast in the dorsalis pedis artery. Upper GI Series 05/09/24 09:31 IMPRESSION: 1. Ulcer of the gastric antrum with contained extraluminal contrast similar to 04/28/2024. The extraluminal contrast distribution is worse than typically seen after [place] patch repair. Abdomen CT 05/09/24 15:27 IMPRESSION: Redemonstration of a tract extending from the posterior superior margin of the antrum of the stomach only partially filled with oral contrast, perhaps demonstrating early healing. Abdomen/Pelvis CT 05/17/24 09:03 Impression: Persistent wall thickening of the gastric antrum/duodenum with surrounding haziness, compatible postoperative change. There is persistent irregular tract with small amount of fluid and external air extending from the gastric antrum superiorly/anteriorly, which could reflect abscess or persistent contained perforation. No extraluminal contrast seen, and no oral contrast seen within this collection. Intramuscular hematoma of the right iliopsoas and psoas major muscles, with additional irregular hematoma extending to the posterior right retroperitoneum. Bilateral fat-containing inguinal hernias. Small bilateral pleural effusions. Chest/Abdomen/Pelvis CT 05/22/24 14:37 IMPRESSION: Nodular opacities in the right upper lobe and right middle lobe, likely representing small infectious/inflammatory foci. Segmental bibasilar atelectasis/consolidation. Small bilateral simple pleural effusions. Cardiomegaly with trace pericardial fluid. Peritoneal gas anterior to the stomach secondary to antral perforation, with possible small adjacent abscess or fistulous tract. Nonfluid density peritoneal and psoas collections, may represent complex ascites from bowel content, blood, or phlegmon, or combination thereof. Significant body wall edema. Hand X-Ray 05/23/24 13:08 IMPRESSION: 1. No acute fracture. 2. Likely chronic malalignment at the wrist and carpus including 1 cm ulnar minus variance and disruption of the proximal carpal row which is most likely sequela of old trauma. 3. 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 4. Multiple subarticular lucencies at the wrist and carpus most likely degenerative subchondral cyst although differential includes chronic erosion such as in the setting of gout. Chest X-Ray 05/23/24 21:33 IMPRESSION: Left basilar atelectasis versus pneumonia. Cardiomegaly with congestive kristian and interstitial thickening which may indicate cardiac decompensation and pulmonary edema. Clinical correlation advised. Pneumonitis is not excluded. Modified Barium Swallow 05/26/24 15:19 IMPRESSION: Oropharyngeal dysphagia with recurrent laryngeal penetration and aspiration. Please correlate with speech pathologist findings and specific feeding recommendations. Cervical Spine MRI 05/26/24 17:21 IMPRESSION: 1. Prevertebral/retropharyngeal soft tissue swelling anterior to the mid to upper cervical spine with peripheral enhancing fluid collection potentially a small abscess just right of midline at the level of the base of the dens. Findings were discussed with Dashawn Stevens, the nurse caring for the patient, at 6:18 PM. 2. Severe cervical spondylosis with no evident discitis or osteomyelitis. Thoracic Spine MRI 05/26/24 17:45 IMPRESSION: 1. Moderate thoracic spondylosis with no evident discitis or ostomy myelitis. 2. Small bilateral pleural effusions with dependent atelectasis versus pneumonia in the bilateral lower lobes. Lumbar Spine MRI 05/26/24 17:53 IMPRESSION: 1. Severe lumbar spondylosis with prominent increased disc signal at L1-L2 through L4-L5. Increased fluid signal is likely artifact of feculent phenomena which is seen at the same levels on locations on the prior CT although could not absent exclude discitis given the presence of a nearby complex loculated right psoas muscle fluid collection with increased T1 signal suggesting this is due to hematoma although this could potentially be secondarily infected. Bone marrow signal remains normal with no measurable enhancement along the endplates but no appreciable edema to more specifically elevated concern for discitis or osteomyelitis. Would consider percutaneous abscess drainage with Gram stain and culture of the right psoas fluid collection. Findings were discussed with Dashawn Stevens, the nurse caring for the patient, at 6:[address] 05/27/24 17:21 IMPRESSION: 1. Successful CT-guided right psoas muscle fluid collection drainage catheter placement. 2. 5 mL fluid was sent for aerobic and anaerobic cultures. 3. The catheter will be managed by Dr. Aguiar. Labs Labs: Laboratory Results - last 24 hr 05/29/24 04:40 WBC 9.9 RBC 2.94 L Hgb 8.5 L Hct 28.8 L MCV 98.0 MCH 28.9 MCHC 29.5 L RDW 16.5 H Plt Count 236 MPV 11.6 H Immature Gran % (Auto) 1.1 H Neut % (Auto) 69.0 Lymph % (Auto) 17.7 L [place] % (Auto) 8.1 Eos % (Auto) 3.7 Baso % (Auto) 0.4 Lymph # (Auto) 1.76 [place] # (Auto) 0.8 H Eos # (Auto) 0.4 H Baso # (Auto) 0.0 Abs Immat Gran (auto) 0.11 H Absolute Neuts (auto) 6.9 H Absolute Nucleated RBC 0.000 Nucleated RBC % 0.0 Sodium 143 Potassium 3.4 Chloride 102 Carbon Dioxide 36 H Anion Gap 5 BUN 51 H Creatinine 1.73 H Estim Creat Clear Calc 46 Estimated GFR 39 L Glucose 123 H Calcium 8.9 Magnesium 2.0 Total Bilirubin 0.6 AST 38 ALT 19 Alkaline Phosphatase 89 NT-Pro-B Natriuret Pep 1260 H Total Protein 7.0 Albumin 3.0 L
[2024-05-29] MEDS: ARTIFICIAL TEARS OPHTH SOLN 15 ML BOTTLE 1 DROP EACH EYE (15:35)
[2024-05-29] MEDS: IPRATROPIUM 0.5 MG/ALBUTEROL SULFATE 2.5 MG AMPUL.NEB 3 ML INHALATION (15:56)
[2024-05-29] MEDS: ACETAMINOPHEN ELIXIR 325 MG/10.15 ML UDC 650 MG PO (17:23)
[2024-05-30 05:09] LABS: Basophils Percent Auto 0.4 % (0.2-1.2); Eosinophils Absolute Auto 0.5 K/mm3 (0-0.3); Eosinophils Percent Auto 4.4 % (0-4.4); Hematocrit 29.3 % (42.0-52.0); Hemoglobin 8.6 g/dL (14.0-18.0); Immature Granulocyte Absolute 0.13 K/mm3 (0.00-0.031); Immature Granulocyte Percent A 1.2 % (0-0.5); Lymphocytes Absolute Auto 2.03 K/mm3 (0.9-3.2); Lymphocytes Percent Auto 19.5 % (18.3-44.2); Mean Corpuscular HGB Conc 29.4 g/dl (32-36); Mean Corpuscular Hemoglobin 28.9 pg (26-34); Mean Corpuscular Volume 98.3 fl (80-100); Mean Platelet Volume 11.2 fl (7.4-10.4); Monocytes Absolute Auto 0.9 K/mm3 (0.1-0.6); Monocytes Percent Auto 8.2 % (2.6-8.5); Neutrophils Absolute Auto 6.9 K/mm3 (1.3-6.7); Neutrophils Percent Auto 66.3 % (45.5-73.1); Platelet Count Result 245 k/mm3 (150-375); Red Blood Count 2.98 M/mm3 (4.6-6.20); Red Cell Distribution Width 16.4 % (11.5-14.5); White Blood Count 10.4 K/mm3 (4.5-10.0)
[2024-05-30] MEDS: hydrALAZINE HCL 20 MG/ML VIAL 10 MG IV PUSH ×2 (05:09→21:22)
[2024-05-30] MEDS: ACETAMINOPHEN ELIXIR 325 MG/10.15 ML UDC 650 MG PO ×2 (05:12→12:20)
[2024-05-30 05:18] LABS: Lactic Acid Reflex 0.8 mmol/L (0.7-2.0)
[2024-05-30 05:21] LABS: Alanine Aminotransferase 20 U/L (6-50); Alkaline Phosphatase 97 U/L (38-126); Anion Gap 7 mmol/L (4-12); Aspartate Amino Transferase 34 U/L (17-59); Bilirubin,Total 0.5 mg/dL (0.2-1.3); Blood Urea Nitrogen 50 mg/dL (9-20); Calcium 8.8 mg/dL (8.4-10.2); Carbon Dioxide 33 mmol/L (22-30); Chloride 103 mmol/L (98-107); Estimated CRCL calculation 54 ml/min; Estimated Glomerular Filt Rate 46; Glucose 111 mg/dL (65-110); Potassium 3.5 mmol/L (3.4-5.0); Sodium 143 mmol/L (137-145)
[2024-05-30 05:36] LABS: Vancomycin Trough 19.2 ug/mL (10.0-20.0)
[2024-05-30 05:45] VITALS: BP 185/59; PULSE 80; RESP 20; TEMP 36.7; O2SAT 96
[2024-05-30 05:58] LABS: Platelet Estimate Adequate (Adequate)
[2024-05-30 05:59] LABS: Hypochromasia 1+
[2024-05-30 06:00] LABS: Microcytosis 2+ (NORMAL); Schistocytes None Seen
[2024-05-30] MEDS: VANCOMYCIN 1,000 MG/NS 250 ML 1,000 MG/250 ML BAG 250 MG IVPB (06:11)
[2024-05-30 08:00] VITALS: BMI 10.0
[2024-05-30 09:08] VITALS: BP 157/74; PULSE 81; RESP 16; TEMP 36.7; O2SAT 97
[2024-05-30] MEDS: amLODIPine BESYLATE 5 MG TABLET PO (09:09)
[2024-05-30] MEDS: lisinopriL 20 MG TABLET 40 MG BY MOUTH (09:09)
[2024-05-30 09:10] VITALS: O2SAT 97
[2024-05-30] MEDS: CALCIUM/VITAMIN D 500 MG/5 MCG (200 I.U.) TABLET PO (09:10)
[2024-05-30] MEDS: LIDOCAINE 5% PATCH 1 PATCH TRANSDERM (09:10)
--- NOTE | 2024-05-30 10:57 | P.PNIM_ITS ---
Progress Note: A&P Assessment and Plan (1) Sepsis: Code(s): A41.9 - Sepsis, unspecified organism Status: Resolved Assessment and Plan: sepsis resolved From psoas and prevertebral abscess Continue Vancomycin while waiting for [facility] transfer (2) Bacteremia: Code(s): R78.81 - Bacteremia Status: Acute Assessment and Plan: MRSA bacteremia from Psoas and prevertebral abscess Blood culture still positive on 05/24 repeat blood culture today Continue IV Vanc awaiting placement (3) Perforated abdominal viscus: Code(s): R19.8 - Other specified symptoms and signs involving the digestive system and abdomen Status: Acute Assessment and Plan: Septic shock from peritonitis with perforated gastric ulcer s/p laparotomy with repair repeat CT chest/AP nodular opacities in the right upper lobe and right middle lobe, peritoneal gas ant to stomach with possible small adjacent abscess or fistulous tract Surgery evaluated and noted not abscess is persistent finding not big enough for drainage Continue Peg Tube feeding for now. Gen surgery following (4) Pneumonia: Code(s): J18.9 - Pneumonia, unspecified organism Status: Acute Assessment and Plan: * Nodular opacities in the right upper lobe and right middle lobe, likely representing small infectious/inflammatory foci. 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 * Patient advanced to soft diet per General surgery recommendation * Continue to encourage po intake * Bolus tube feeding via G tube * add reglan and Marinol (6) Dysphagia: Code(s): R13.10 - Dysphagia, unspecified Status: Acute Assessment and Plan: * See plan above * continue tube feeding * Advance diet per Speech (7) Right wrist pain: Code(s): M25.531 - Pain in right wrist Status: Acute Assessment and Plan: * Patient started c/o of right wrist pain on 05/23 * Likely related to repeated blood culture attempts * XR hand RT 2V: No acute fracture. 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 Multiple subarticular lucencies at the wrist and carpus * Physical exam benign (8) Acute kidney injury superimposed on stage 3b chronic kidney disease: Code(s): N17.9 - Acute kidney failure, unspecified; N18.32 - Chronic kidney disease, stage 3b Status: Acute Assessment and Plan: resolved Creatinine 1.48, which is baseline (9) Pleural effusion: Code(s): J90 - Pleural effusion, not elsewhere classified Status: Acute Assessment and Plan: * Seen on CT * Chest x-ray dated compare * Likely due to 3rd spacing * Stable (10) Anemia: Code(s): D64.9 - Anemia, unspecified Status: Acute Assessment and Plan: Iron deficiency anemia on acute loss Stable * Trend CBC. * transfuse if hgb <7.0, or symptomatic * Iron replacement * hb 8.6 (11) HTN (hypertension): Code(s): I10 - Essential (primary) hypertension Status: Acute Assessment and Plan: Controlled * Continue Clonidine patch and Hydralazine PRN. * Trend BP (12) Generalized weakness: Code(s): R53.1 - Weakness Status: Acute Assessment and Plan: * PT/OT-maxi move use for transfer * Patient will likely need placement * No changes to current plan (13) Hypokalemia: Code(s): E87.6 - Hypokalemia Status: Acute Assessment and Plan: Improved * Trend labs * Replace as indicated (14) Hypernatremia: Code(s): E87.0 - Hyperosmolality and hypernatremia Status: Acute Assessment and Plan: Resolved Daily BMP Plan Possible Discitis vs osteomyelitis MRI spine showed increased disc signal at L1-2 through l4-5 also increase T1 signal with adjacent complex loculated right psoas muscle fluid collection, hematoma vs abscess Continue abx as above and abscess culture positive for Staph aureus Awaiting transfer to [facility] Psoas muscle and prevertebral cervical abscess MRI reviewed ELSA drain to psoas abscess and culture positive for Staph Aureus, sensitivity pending continue abscess drainage Blood culture still positive as of 05/27 repeat culture continue Vancomycin MRSA bacteremia from the above continue above care FTT/protein energy malnutrition patient on tube feeding since patient is more awake today and following commands MBS ordered to to see if patient will be cleared for PO intake conitnue monitoring DVT prophylaxis on Sq Lovenox Awaiting transfer to [facility] Subjective Date/time seen: 05/30/24 10:57 Interval history: Patient is more awake today and will undergo repeat MBS for possible PO clear ance Review of Systems Review of Systems: 12 systems were reviewed and are negativ e except for as per HPI. All systems reviewed & are unremarkable except as noted in HPI and below ROS unobtainable: Yes unobtainable due to endotracheal tube and unobtainable due to medical condition Exam Narrative: General: Comfortable at bedside HEENT: normocephalic, atraumatic. Mucous membranes moist. EOMI, PERRLA, bilateral sclera anicteric, no conjunctival injection. Respiratory: clear to auscultation bilaterally. No rales/rhonic/wheezes. Cardiovascular: Regular rate and rhythm, normal S1-S2 upon auscultation. No murmurs, rubs, or clicks. Capillary refill less than 3 second. Abdomen: Soft, round, no pulsatile masses, nondistended and nontender. No rebound, no guarding. Bowel sounds present to all four quadrants. No high pitch or tinkling sounds. Extremities: 2 + edema to both LE. No cyanosis, clubbing present. Pulses are palpable 2/2. Active ROM to all four extremities. Neuro: Alert and orientated x 4. PERRLA. Cranial nerves 2-12 intact without focal deficit. Skin: Warm, dry, and intact, without rash, erythema, or lesion. Psych: pleasant, cooperative, normal speech, normal affect, no hallucinations, no dysarthria Skin: G-tube site clean with G-tube in place and clamped. Gauze dressing in place in the right upper quadrant and left upper quadrant from previous ELSA drains, gauze dressing dry and intact. Const: General: comfortable, no acute distress and uncomfortable Other: Acutely ill-appearing, obese HENMT: Other: Mucous membranes are dry, head is normocephalic atraumatic, few missing teeth, bridge in the lower jaw Eyes: Other: Pupils are equal and reactive, no scleral icterus Neck: Other: No JVD, trachea midline Resp: Effort & Inspection: normal respiratory effort Auscultation: clear to auscultation bilaterally and diminished lung sounds Other: Cardio: Rate: regular rate Rhythm: regular rhythm Other: Telemetry SR 85. GI: Auscultation: normal bowel sounds Other: Gastrostomy tube in place with dry gauze dressing and skin around the G-tube without erythema or drainage. Incision dry with steri strips intact, no erythema. Slightly distended. : Other: Bowman catheter in place was a small amount of turbid yellow urine Urinary Catheter: Urinary Catheter: patent and draining Skin: Other: Generally cold to touch, 2nd cap refill, fingers and toes are cyanotic Neuro: Speech: normal speech Other: Pupils are reactive, equal Extrem: General: pedal edema bilaterally 2+ Other: 2+PP bilateral feet are warm. Psych: Mental Status: mental status grossly normal Affect: normal affect Other: Unable to assess due to patient condition Objective Data Vital Signs Vital Signs: Vital Signs - 24 hr 05/29/24 14:00 05/29/24 15:56 05/29/24 15:56 Temperature 98.4 F Pulse Rate 77 81 Respiratory Rate 20 20 Blood Pressure 163/58 H Pulse Oximetry 94 98 Oxygen Delivery Room Air Fraction of Inspired Oxygen 21 05/29/24 16:04 05/29/24 19:48 05/29/24 21:14 Temperature 98.6 F Pulse Rate 82 75 Respiratory Rate 20 18 Blood Pressure 152/58 H Pulse Oximetry 95 Oxygen Delivery Room Air Fraction of Inspired Oxygen 05/30/24 05:45 05/30/24 09:08 05/30/24 09:10 Temperature 98.0 F 98.1 F Pulse Rate 80 81 Respiratory Rate 20 16 Blood Pressure 185/59 H 157/74 H Pulse Oximetry 96 97 97 Oxygen Delivery Room Air Fraction of Inspired Oxygen Intake/Output Intake/Output: Intake & Output 05/27/24 05/28/24 05/29/24 05/30/24 23:59 23:59 23:59 23:59 Intake Total 1030 1070 2050 360 Output Total 3950 3100 1700 730 Balance -2919 -2029 350 -370 Meds/Results Medications: Active Medications Generic Name Dose Route Start Last Admin Trade Name Freq PRN Reason Stop Dose Admin Acetaminophen 650 mg 04/26/24 22:19 04/26/24 22:57 Acetaminophen 650 Mg Suppository RECTAL 650 mg Q6H PRN Administration Mild Pain (1-3) or Fever Acetaminophen 650 mg 05/05/24 10:27 05/30/24 05:12 Acetaminophen Elixir 325 Mg/10.15 Ml Udc PO 650 mg Q6H PRN Administration Mild Pain (1-3) or Fever Alteplase, Recombinant 2 mg 05/22/24 21:26 05/22/24 21:57 Alteplase 2 Mg Vial (Cathflo) IV PUSH 2 mg ONCE PRN Administration Line Occlusion Amlodipine Besylate 5 mg 05/27/24 12:15 05/30/24 09:09 Amlodipine Besylate 5 Mg Tablet PO 5 mg DAILY ROSY Administration Artificial Tears 1 drop 04/27/24 08:37 05/29/24 15:35 Artificial Tears Ophth Soln 15 Ml Bottle EACH EYE 1 drop QID PRN Administration Dry Eye(s) Atorvastatin Calcium 20 mg 04/30/24 09:00 Atorvastatin 20 Mg Tablet BY MOUTH DAILY ROSY Benzocaine 1 lozenge 05/15/24 15:35 05/21/24 12:14 Benzocaine/Menthol (*Bkc) 18 Ea Lozenge PO 1 lozenge PRN PRN Administration Sore Throat Calcium Carbonate 500 mg 05/19/24 08:00 05/30/24 09:10 Calcium/Vitamin D 500 Mg/5 Mcg (200 I.U.) Tablet PO 500 mg DAILY@0800 [facility] Administration Clonidine HCl 1 patch 05/01/24 09:00 05/29/24 08:59 Clonidine 0.1 Mg/24 Hr Patch TRANSDERM 1 patch WEEKLY ROSY Administration Dextrose 12.5 gm 05/23/24 21:48 Dextrose 50% 25 Gm/50 Ml Syringe IV PUSH PRN PRN Hypoglycemia Protocol Dronabinol 2.5 mg 05/17/24 16:30 05/29/24 17:24 Dronabinol (*Crx) 2.5 Mg Capsule PO Not Given DAILY@1630 [facility] Enoxaparin Sodium 40 mg 05/25/24 09:00 05/26/24 09:47 Enoxaparin 40 Mg/0.4 Ml Syringe SUB-Q 40 mg DAILY ROSY Administration Epoetin Olu-epbx 10,000 units 05/14/24 11:05 05/28/24 08:46 Epoetin Olu-Epbx 10,000 Units/Ml Vial SUB-Q 10,000 units TUTHSA@09 [facility] Administration Glucagon 1 mg 05/23/24 21:48 Glucagon For Inj 1 Mg Vial IM PRN PRN Hypoglycemia Protocol Glucose 15 gm 05/23/24 21:48 Glucose Oral Gel 15 Gm Of Glucse In 37.5 Gm Tube PO PRN PRN Hypoglycemia Protocol Guaifenesin/Dextromethorphan 10 ml 05/15/24 10:07 05/22/24 01:23 Guaifenesin/Dextromethorphan 10 Ml Udc PO 10 ml Q4H PRN Administration Cough Hydralazine HCl 10 mg 04/25/24 08:00 05/30/24 05:09 Hydralazine Hcl 20 Mg/Ml Vial IV PUSH 10 mg Q4H PRN Administration Blood Pressure - High Vancomycin HCl 1,000 mg in 250 mls @ 250 mls/hr 05/25/24 06:00 05/30/24 06:11 Vancomycin 1,000 Mg/Ns 250 Ml IVPB 250 mls/hr Q24H ROSY Administration Ipratropium [place] 0.5 mg 05/04/24 09:32 05/17/24 10:11 Ipratropium Br 0.02% Inh Soln 0.5 Mg/2.5 Ml Vial INHALATION 0.5 mg Q6HRT PRN Administration Shortness Of Breath Levalbuterol HCl 0.63 mg 05/04/24 09:32 05/17/24 10:11 Levalbuterol Neb 1.25 Mg/3 Ml INHALATION 0.63 mg Q6HRT PRN Administration Shortness Of Breath Lidocaine 1 patch 05/18/24 09:00 05/30/24 09:10 Lidocaine 5% Patch TRANSDERM 1 patch DAILY ROSY Administration Lisinopril 40 mg 05/20/24 15:05 05/30/24 09:09 Lisinopril 20 Mg Tablet BY MOUTH 40 mg DAILY ROSY Administration Lorazepam 0.5 mg 05/16/24 13:48 05/22/24 09:54 Lorazepam (*Crx) 0.5 Mg Tablet PO 0.5 mg Q6H PRN Administration Anxiety Miscellaneous Information 0 each 05/30/24 00:01 Clonidine Patch Order Will Auto Stop Before The 05/31 Dose. Please Renew Order If This Is XX 06/29/24 00:00 CLARIFY ROSY Ondansetron HCl 4 mg 05/13/24 11:22 05/21/24 05:44 Ondansetron Inj 4 Mg/2 Ml Vial IV PUSH 4 mg Q6H PRN Administration Nausea And Vomiting Pantoprazole Sodium 40 mg 05/23/24 09:00 05/30/24 09:10 Pantoprazole 40 Mg Tablet PO Not Given QAM ROSY Sodium Chloride 10 ml 05/04/24 14:15 Central Line Flush IV PUSH PRN PRN with TPN bag changes Sodium Chloride 20 ml 05/04/24 14:15 05/25/24 04:29 Central Line Flush IV PUSH 20 ml PRN PRN Administration after blood draws Radiology Results: ITS Impressions Chest/Abdomen/Pelvis CTA 04/22/24 18:10 IMPRESSION: Perforated viscus with a large amount of free air and fluid, with mural thickening in the distal stomach and multiple punctate foci of extraluminal air in this area for which site of perforation is suspected. Renal Ultrasound 04/24/24 11:58 IMPRESSION: Simple cyst in the left kidney upper pole. Other appearances are unremarkable. Lower Extremity CTA 05/02/24 16:36 IMPRESSION: 1. Scattered atherosclerotic plaque in the arteries of the left lower limb as detailed above without a discrete hemodynamic significant stenosis. Runoff below the ankle in the left posterior tibial artery this supplies the foot. Atretic distal peroneal and anterior tibial arteries with intraluminal contrast becoming indiscernible at the level of the ankle and with no appreciable contrast in the dorsalis pedis artery. Upper GI Series 05/09/24 09:31 IMPRESSION: 1. Ulcer of the gastric antrum with contained extraluminal contrast similar to 04/28/2024. The extraluminal contrast distribution is worse than typically seen after Clarence patch repair. Abdomen CT 05/09/24 15:27 IMPRESSION: Redemonstration of a tract extending from the posterior superior margin of the antrum of the stomach only partially filled with oral contrast, perhaps demonstrating early healing. Abdomen/Pelvis CT 05/17/24 09:03 Impression: Persistent wall thickening of the gastric antrum/duodenum with surrounding haziness, compatible postoperative change. There is persistent irregular tract with small amount of fluid and external air extending from the gastric antrum superiorly/anteriorly, which could reflect abscess or persistent contained perforation. No extraluminal contrast seen, and no oral contrast seen within this collection. Intramuscular hematoma of the right iliopsoas and psoas major muscles, with additional irregular hematoma extending to the posterior right retroperitoneum. Bilateral fat-containing inguinal hernias. Small bilateral pleural effusions. Chest/Abdomen/Pelvis CT 05/22/24 14:37 IMPRESSION: Nodular opacities in the right upper lobe and right middle lobe, likely representing small infectious/inflammatory foci. Segmental bibasilar atelectasis/consolidation. Small bilateral simple pleural effusions. Cardiomegaly with trace pericardial fluid. Peritoneal gas anterior to the stomach secondary to antral perforation, with possible small adjacent abscess or fistulous tract. Nonfluid density peritoneal and psoas collections, may represent complex ascites from bowel content, blood, or phlegmon, or combination thereof. Significant body wall edema. Hand X-Ray 05/23/24 13:08 IMPRESSION: 1. No acute fracture. 2. Likely chronic malalignment at the wrist and carpus including 1 cm ulnar minus variance and disruption of the proximal carpal row which is most likely sequela of old trauma. 3. 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 4. Multiple subarticular lucencies at the wrist and carpus most likely degenerative subchondral cyst although differential includes chronic erosion such as in the setting of gout. Modified Barium Swallow 05/26/24 15:19 IMPRESSION: Oropharyngeal dysphagia with recurrent laryngeal penetration and aspiration. Please correlate with speech pathologist findings and specific feeding recommendations. Cervical Spine MRI 05/26/24 17:21 IMPRESSION: 1. Prevertebral/retropharyngeal soft tissue swelling anterior to the mid to upper cervical spine with peripheral enhancing fluid collection potentially a small abscess just right of midline at the level of the base of the dens. Findings were discussed with Dashawn Stevens, the nurse caring for the patient, at 6:18 PM. 2. Severe cervical spondylosis with no evident discitis or osteomyelitis. Thoracic Spine MRI 05/26/24 17:45 IMPRESSION: 1. Moderate thoracic spondylosis with no evident discitis or ostomy myelitis. 2. Small bilateral pleural effusions with dependent atelectasis versus pneumonia in the bilateral lower lobes. Lumbar Spine MRI 05/26/24 17:53 IMPRESSION: 1. Severe lumbar spondylosis with prominent increased disc signal at L1-L2 through L4-L5. Increased fluid signal is likely artifact of feculent phenomena which is seen at the same levels on locations on the prior CT although could not absent exclude discitis given the presence of a nearby complex loculated right psoas muscle fluid collection with increased T1 signal suggesting this is due to hematoma although this could potentially be secondarily infected. Bone marrow signal remains normal with no measurable enhancement along the endplates but no appreciable edema to more specifically elevated concern for discitis or osteomyelitis. Would consider percutaneous abscess drainage with Gram stain and culture of the right psoas fluid collection. Findings were discussed with Dashawn Stevens, the nurse caring for the patient, at 6:[address] 05/27/24 17:21 IMPRESSION: 1. Successful CT-guided right psoas muscle fluid collection drainage catheter placement. 2. 5 mL fluid was sent for aerobic and anaerobic cultures. 3. The catheter will be managed by Dr. Aguiar. Chest X-Ray 05/29/24 16:33 IMPRESSION: Mild pulmonary edema. Segmental left and subsegmental right basilar atelectasis/consolidation. Possible small bilateral pleural effusions. Labs Labs: Laboratory Results - last 24 hr 05/30/24 04:54 WBC 10.4 H RBC 2.98 L Hgb 8.6 L Hct 29.3 L MCV 98.3 MCH 28.9 MCHC 29.4 L RDW 16.4 H Plt Count 245 MPV 11.2 H Immature Gran % (Auto) 1.2 H Neut % (Auto) 66.3 Lymph % (Auto) 19.5 Tift % (Auto) 8.2 Eos % (Auto) 4.4 Baso % (Auto) 0.4 Lymph # (Auto) 2.03 Tift # (Auto) 0.9 H Eos # (Auto) 0.5 H Baso # (Auto) 0.0 Abs Immat Gran (auto) 0.13 H Absolute Neuts (auto) 6.9 H Absolute Nucleated RBC 0.000 Band Neutrophils % Not Reportable Nucleated RBC % 0.0 Platelet Estimate Adequate Hypochromasia 1+ Microcytosis 2+ Schistocytes None seen Sodium 143 Potassium 3.5 Chloride 103 Carbon Dioxide 33 H Anion Gap 7 BUN 50 H Creatinine 1.48 H Estim Creat Clear Calc 54 Estimated GFR 46 L Glucose 111 H Lactic Acid 0.8 Calcium 8.8 Magnesium 2.0 Total Bilirubin 0.5 AST 34 ALT 20 Alkaline Phosphatase 97 Total Protein 7.0 Albumin 3.0 L Vancomycin Trough 19.2 Quality VTE Prophylaxis VTE prophylaxis: mechanical ordered and pharmacologic ordered
--- NOTE | 2024-05-30 12:23 | P.PNINF_ITS ---
Pharmacy ID Consult Stewardship Interventions Pharmacy ID Note: Rejoined case more actively after conversation with Dr. Sims led to identification of abscesses See previous notes for complete details. CT scan showed two sets of abscesses one of which was drained on 05/27 - culture growing MRSA 05/26 blood culture did return MRSA 05/28 blood culture - no growth to date 05/29 blood culture - no growth to date 05/30 (today) blood culture - pending Looking at all positive MRSA strains this visit shows the patient potentially growing two different strains of MRSA as noted by different vancomycin THEODORA's (<= 0.5 vs 1) Unfortunately EMPERATRIZ has not yet been / cannot be done, and additional set of abscesses remain undrained. Transfer Pending to [facility] Old PICC line was pulled later last week. Patient remains on Vancomycin which is appropriate for both MRSA strains given THEODORA at or less than 1 mcg/mL and troughs have been therapeutic or supratheraeutic since 05/22. No end date at this time given continued bacteremia and lack of source control with transfer pending. Continue to look for sources. Recommend transfer to where source control can be obtained, to where infectious disease providers can assess patient. goal trough 15-20 mcg/mL or AUC:THEODORA 400-600:1 Rasheed Angel, PharmD Infectious Disease/Antimicrobial Stewardship Pharmacist 05/30/24; 1223 WBC 10.4 K/mm3 (4.5-10.0) H 05/30/24 04:54 Creatinine 1.48 mg/dL (0.7-1.3) H 05/30/24 04:54 Estim Creat Clear Calc 54 ml/min 05/30/24 04:54
--- NOTE | 2024-05-30 13:41 | PCDIET ---
Tube feeding flush recommendation: Increase flushes to 180ml q 4 hrs to provide 1080ml free water. Current tube feeding (Nepro 260ml bolus QID) providing 756ml free water. Total water intake with new rec for flushes is 1836ml over 24hrs
--- NOTE | 2024-05-30 13:57 | PCSTNOTE ---
Please refer to the Modified Barium Swallow (MBS) Evaluation in the EMR. (REPEAT MBS) Pt was seen for a repeat MBS as per nursing pt appears stronger as he is now tolerating sitting up in a chair. Pt was previously seen for an MBS on 05/26, which revealed severe dysphagia with recommendation of NPO. The patient has had a complicated hospital course. A PEG tube was placed even before any swallow evaluations. Upon the patient's entering x-ray it was noted that he appeared slightly more alert with a somewhat louder voice; upon repositioning pt in a more upright position, he grimaced due to back pain, but after just a few seconds, the pt appeared to tolerate the upright position and was seated for a lateral view. He was tested with thin liquids via a spoon and pudding consistency barium via a spoon. With the thin liquid trial, pt exhibited reduced tongue control as evidenced by premature loss/spill to the level of the pyriform sinus. No other oral stage dysfunction was noted with those consistencies; solids were not tested due to aspiration risk. During the pharyngeal stage, reduced tongue base retraction was exhibited as evidenced by (severe) vallecular residue, reduced laryngeal elevation as evidenced by laryngeal penetration during the swallow and pyriform sinus residue (mod). Pharyngeal residue spilled into the laryngeal vestibule after the swallow. The pt lacked laryngeal sensitivity as he required verbal cues to cough/throat clear and dry swallow to clear the penetration and residual, but aspiration did eventually occur after the swallow. Impression: severe dysphagia Recommendations: Continue non oral feedings via the peg tube; continue dysphagia therapy.
[2024-05-30 14:00] VITALS: BP 156/70; PULSE 75; RESP 18; TEMP 36.6; O2SAT 95
--- NOTE | 2024-05-30 14:31 | P.PNGS_ITS ---
Progress Note: A&P Assessment and Plan (1) Perforated gastric ulcer: Onset Date: 04/2024 Qualifiers: Gastric ulcer chronicity: acute Qualified Code(s): K25.1 - Acute gastric ulcer with perforation Code(s): K25.5 - Chronic or unspecified gastric ulcer with perforation Status: Acute Assessment and Plan: * Tolerating G-tube feedings. Failed modified barium swallow test again today. Continue tube feedings for now. Hopefully as he gains strength this can be re- evaluated in the future. He appears stronger and more alert today. He is working with PT/OT again and is up to the chair. (2) Psoas abscess, right: Code(s): K68.12 - Psoas muscle abscess Status: Acute Assessment and Plan: * Status post percutaneous drain placed 05/27/2024. Drain appears mostly to be old blood. * Cultures growing MRSA (3) MRSA bacteremia: Code(s): R78.81 - Bacteremia; B95.62 - Methicillin resistant Staphylococcus aureus infection as the cause of diseases classified elsewhere Status: Acute Assessment and Plan: * Repeat cultures on 05/28 and 05/29 negative so far. Multiple potential sources. * Awaiting transfer to [facility]. (4) Abnormal MRI, neck: Code(s): R93.89 - Abnormal findings on diagnostic imaging of other specified body structures Status: Acute (5) Stage 3b chronic kidney disease: Code(s): N18.32 - Chronic kidney disease, stage 3b Status: Chronic (6) Malnutrition following gastrointestinal surgery: Code(s): K91.2 - Postsurgical malabsorption, not elsewhere classified Status: Chronic Plan I have discussed the patient's case and plan of care with Dr. Aguiar. Subjective Subjective Date/Time Seen: 05/30/24 14:31 Patient reports: no new complaints Interval history: No significant changes. Tolerating tube feedings. Appears more alert and stronger today as he is sitting in a chair and able to talk more to me today. No abdominal pain or other issues. Failed his modified swallow study again today. Exam Const: General: comfortable and no acute distress Orientation/c onsciousness: patient oriented x3 GI: Inspection: non-distended and incision (well healed) GI Palp: Yes Soft to palpation, No Tenderness to palpation present (GI) and No Guarding due to palpation present (GI) Auscultation: normal bowel sounds Other: G-tube in place and clamped Objective Data Vital Signs Vital Signs: Vital Signs - 24 hr 05/29/24 15:56 05/29/24 15:56 05/29/24 16:04 Temperature Pulse Rate 81 82 Respiratory Rate 20 20 Blood Pressure Pulse Oximetry 98 Oxygen Delivery Room Air Fraction of Inspired Oxygen 05/29/24 19:48 05/29/24 21:14 05/30/24 05:45 Temperature 98.6 F 98.0 F Pulse Rate 75 80 Respiratory Rate 18 20 Blood Pressure 152/58 H 185/59 H Pulse Oximetry 95 96 Oxygen Delivery Room Air Fraction of Inspired Oxygen 05/30/24 09:08 05/30/24 09:10 05/30/24 14:00 Temperature 98.1 F 98 F Pulse Rate 81 75 Respiratory Rate 16 18 Blood Pressure 157/74 H 156/70 H Pulse Oximetry 97 97 95 Oxygen Delivery Room Air Fraction of Inspired Oxygen Intake/Output Intake/Output: Intake & Output 05/27/24 05/28/24 05/29/24 05/30/24 23:59 23:59 23:59 23:59 Intake Total 1030 1070 2050 720 Output Total 3950 3100 1700 730 Balance -[facility]0 -2029 350 -10 Meds/Results Medications: Active Medications Generic Name Dose Route Start Last Admin Trade Name Freq PRN Reason Stop Dose Admin Acetaminophen 650 mg 04/26/24 22:19 04/26/24 22:57 Acetaminophen 650 Mg Suppository RECTAL 650 mg Q6H PRN Administration Mild Pain (1-3) or Fever Acetaminophen 650 mg 05/05/24 10:27 05/30/24 12:20 Acetaminophen Elixir 325 Mg/10.15 Ml Udc PO 650 mg Q6H PRN Administration Mild Pain (1-3) or Fever Alteplase, Recombinant 2 mg 05/22/24 21:26 05/22/24 21:57 Alteplase 2 Mg Vial (Cathflo) IV PUSH 2 mg ONCE PRN Administration Line Occlusion Amlodipine Besylate 5 mg 05/27/24 12:15 05/30/24 09:09 Amlodipine Besylate 5 Mg Tablet PO 5 mg DAILY ROSY Administration Artificial Tears 1 drop 04/27/24 08:37 05/29/24 15:35 Artificial Tears Ophth Soln 15 Ml Bottle EACH EYE 1 drop QID PRN Administration Dry Eye(s) Atorvastatin Calcium 20 mg 04/30/24 09:00 Atorvastatin 20 Mg Tablet BY MOUTH DAILY ROSY Benzocaine 1 lozenge 05/15/24 15:35 05/21/24 12:14 Benzocaine/Menthol (*Bkc) 18 Ea Lozenge PO 1 lozenge PRN PRN Administration Sore Throat Calcium Carbonate 500 mg 05/19/24 08:00 05/30/24 09:10 Calcium/Vitamin D 500 Mg/5 Mcg (200 I.U.) Tablet PO 500 mg DAILY@0800 [facility] Administration Clonidine HCl 1 patch 05/01/24 09:00 05/29/24 08:59 Clonidine 0.1 Mg/24 Hr Patch TRANSDERM 1 patch WEEKLY [facility] Administration Dextrose 12.5 gm 05/23/24 21:48 Dextrose 50% 25 Gm/50 Ml Syringe IV PUSH PRN PRN Hypoglycemia Protocol Dronabinol 2.5 mg 05/17/24 16:30 05/29/24 17:24 Dronabinol (*Crx) 2.5 Mg Capsule PO Not Given DAILY@1630 [facility] Enoxaparin Sodium 40 mg 05/25/24 09:00 05/26/24 09:47 Enoxaparin 40 Mg/0.4 Ml Syringe SUB-Q 40 mg DAILY [facility] Administration Epoetin Olu-epbx 10,000 units 05/14/24 11:05 05/28/24 08:46 Epoetin Olu-Epbx 10,000 Units/Ml Vial SUB-Q 10,000 units TUTHSA@09 [facility] Administration Glucagon 1 mg 05/23/24 21:48 Glucagon For Inj 1 Mg Vial IM PRN PRN Hypoglycemia Protocol Glucose 15 gm 05/23/24 21:48 Glucose Oral Gel 15 Gm Of Glucse In 37.5 Gm Tube PO PRN PRN Hypoglycemia Protocol Guaifenesin/Dextromethorphan 10 ml 05/15/24 10:07 05/22/24 01:23 Guaifenesin/Dextromethorphan 10 Ml Udc PO 10 ml Q4H PRN Administration Cough Hydralazine HCl 10 mg 04/25/24 08:00 05/30/24 05:09 Hydralazine Hcl 20 Mg/Ml Vial IV PUSH 10 mg Q4H PRN Administration Blood Pressure - High Vancomycin HCl 1,000 mg in 250 mls @ 250 mls/hr 05/25/24 06:00 05/30/24 06:11 Vancomycin 1,000 Mg/Ns 250 Ml IVPB 250 mls/hr Q24H [facility] Administration Ipratropium Leupp 0.5 mg 05/04/24 09:32 05/17/24 10:11 Ipratropium Br 0.02% Inh Soln 0.5 Mg/2.5 Ml Vial INHALATION 0.5 mg Q6HRT PRN Administration Shortness Of Breath Levalbuterol HCl 0.63 mg 05/04/24 09:32 05/17/24 10:11 Levalbuterol Neb 1.25 Mg/3 Ml INHALATION 0.63 mg Q6HRT PRN Administration Shortness Of Breath Lidocaine 1 patch 05/18/24 09:00 05/30/24 09:10 Lidocaine 5% Patch TRANSDERM 1 patch DAILY [facility] Administration Lisinopril 40 mg 05/20/24 15:05 05/30/24 09:09 Lisinopril 20 Mg Tablet BY MOUTH 40 mg DAILY [facility] Administration Lorazepam 0.5 mg 05/16/24 13:48 05/22/24 09:54 Lorazepam (*Crx) 0.5 Mg Tablet PO 0.5 mg Q6H PRN Administration Anxiety Miscellaneous Information 0 each 05/30/24 00:01 Clonidine Patch Order Will Auto Stop Before The 05/31 Dose. Please Renew Order If This Is XX 06/29/24 00:00 CLARIFY ROSY Ondansetron HCl 4 mg 05/13/24 11:22 05/21/24 05:44 Ondansetron Inj 4 Mg/2 Ml Vial IV PUSH 4 mg Q6H PRN Administration Nausea And Vomiting Pantoprazole Sodium 40 mg 05/23/24 09:00 05/30/24 09:10 Pantoprazole 40 Mg Tablet PO Not Given QAM ROSY Sodium Chloride 10 ml 05/04/24 14:15 Central Line Flush IV PUSH PRN PRN with TPN bag changes Sodium Chloride 20 ml 05/04/24 14:15 05/25/24 04:29 Central Line Flush IV PUSH 20 ml PRN PRN Administration after blood draws Radiology Results: ITS Impressions Chest/Abdomen/Pelvis CTA 04/22/24 18:10 IMPRESSION: Perforated viscus with a large amount of free air and fluid, with mural thickening in the distal stomach and multiple punctate foci of extraluminal air in this area for which site of perforation is suspected. Renal Ultrasound 04/24/24 11:58 IMPRESSION: Simple cyst in the left kidney upper pole. Other appearances are unremarkable. Lower Extremity CTA 05/02/24 16:36 IMPRESSION: 1. Scattered atherosclerotic plaque in the arteries of the left lower limb as detailed above without a discrete hemodynamic significant stenosis. Runoff below the ankle in the left posterior tibial artery this supplies the foot. Atretic distal peroneal and anterior tibial arteries with intraluminal contrast becoming indiscernible at the level of the ankle and with no appreciable contrast in the dorsalis pedis artery. Upper GI Series 05/09/24 09:31 IMPRESSION: 1. Ulcer of the gastric antrum with contained extraluminal contrast similar to 04/28/2024. The extraluminal contrast distribution is worse than typically seen after [place] patch repair. Abdomen CT 05/09/24 15:27 IMPRESSION: Redemonstration of a tract extending from the posterior superior margin of the antrum of the stomach only partially filled with oral contrast, perhaps demonstrating early healing. Abdomen/Pelvis CT 05/17/24 09:03 Impression: Persistent wall thickening of the gastric antrum/duodenum with surrounding haziness, compatible postoperative change. There is persistent irregular tract with small amount of fluid and external air extending from the gastric antrum superiorly/anteriorly, which could reflect abscess or persistent contained pe rforation. No extraluminal contrast seen, and no oral contrast seen within this collection. Intramuscular hematoma of the right iliopsoas and psoas major muscles, with additional irregular hematoma extending to the posterior right retroperitoneum. Bilateral fat-containing inguinal hernias. Small bilateral pleural effusions. Chest/Abdomen/Pelvis CT 05/22/24 14:37 IMPRESSION: Nodular opacities in the right upper lobe and right middle lobe, likely represen ting small infectious/inflammatory foci. Segmental bibasilar atelectasis/consolidation. Small bilateral simple pleural effusions. Cardiomegaly with trace pericardial fluid. Peritoneal gas anterior to the stomach secondary to antral perforation, with possible small adjacent abscess or fistulous tract. Nonfluid density peritoneal and psoas collections, may represent complex ascites from bowel content, blood, or phlegmon, or combination thereof. Significant body wall edema. Hand X-Ray 05/23/24 13:08 IMPRESSION: 1. No acute fracture. 2. Likely chronic malalignment at the wrist and carpus including 1 cm ulnar minus variance and disruption of the proximal carpal row which is most likely sequela of old trauma. 3. 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 4. Multiple subarticular lucencies at the wrist and carpus most likely degenerative subchondral cyst although differential includes chronic erosion such as in the setting of gout. Cervical Spine MRI 05/26/24 17:21 IMPRESSION: 1. Prevertebral/retropharyngeal soft tissue swelling anterior to the mid to upper cervical spine with peripheral enhancing fluid collection potentially a small abscess just right of midline at the level of the base of the dens. Findings were discussed with Dashawn Stevens, the nurse caring for the patient, at 6:18 PM. 2. Severe cervical spondylosis with no evident discitis or osteomyelitis. Thoracic Spine MRI 05/26/24 17:45 IMPRESSION: 1. Moderate thoracic spondylosis with no evident discitis or ostomy myelitis. 2. Small bilateral pleural effusions with dependent atelectasis versus pneumonia in the bilateral lower lobes. Lumbar Spine MRI 05/26/24 17:53 IMPRESSION: 1. Severe lumbar spondylosis with prominent increased disc signal at L1-L2 through L4-L5. Increased fluid signal is likely artifact of feculent phenomena which is seen at the same levels on locations on the prior CT although could not absent exclude discitis given the presence of a nearby complex loculated right psoas muscle fluid collection with increased T1 signal suggesting this is due to hematoma although this could potentially be secondarily infected. Bone marrow signal remains normal with no measurable enhancement along the endplates but no appreciable edema to more specifically elevated concern for discitis or osteomyelitis. Would consider percutaneous abscess drainage with Gram stain and culture of the right psoas fluid collection. Findings were discussed with Dashawn Stevens, the nurse caring for the patient, at 6:[address] 05/27/24 17:21 IMPRESSION: 1. Successful CT-guided right psoas muscle fluid collection drainage catheter placement. 2. 5 mL fluid was sent for aerobic and anaerobic cultures. 3. The catheter will be managed by Dr. Aguiar. Chest X-Ray 05/29/24 16:33 IMPRESSION: Mild pulmonary edema. Segmental left and subsegmental right basilar atelectasis/consolidation. Possible small bilateral pleural effusions. Modified Barium Swallow 05/30/24 12:28 IMPRESSION: Oropharyngeal dysphagia with laryngeal penetration and silent aspiration. Please correlate with speech pathologist findings and specific feeding recommendations. Labs Labs: Laboratory Results - last 24 hr 05/30/24 04:54 WBC 10.4 H RBC 2.98 L Hgb 8.6 L Hct 29.3 L MCV 98.3 MCH 28.9 MCHC 29.4 L RDW 16.4 H Plt Count 245 MPV 11.2 H Immature Gran % (Auto) 1.2 H Neut % (Auto) 66.3 Lymph % (Auto) 19.5 [place] % (Auto) 8.2 Eos % (Auto) 4.4 Baso % (Auto) 0.4 Lymph # (Auto) 2.03 [place] # (Auto) 0.9 H Eos # (Auto) 0.5 H Baso # (Auto) 0.0 Abs Immat Gran (auto) 0.13 H Absolute Neuts (auto) 6.9 H Absolute Nucleated RBC 0.000 Band Neutrophils % Not Reportable Nucleated RBC % 0.0 Platelet Estimate Adequate Hypochromasia 1+ Microcytosis 2+ Schistocytes None seen Sodium 143 Potassium 3.5 Chloride 103 Carbon Dioxide 33 H Anion Gap 7 BUN 50 H Creatinine 1.48 H Estim Creat Clear Calc 54 Estimated GFR 46 L Glucose 111 H Lactic Acid 0.8 Calcium 8.8 Magnesium 2.0 Total Bilirubin 0.5 AST 34 ALT 20 Alkaline Phosphatase 97 Total Protein 7.0 Albumin 3.0 L Vancomycin Trough 19.2
[2024-05-30 20:05] VITALS: BP 179/66; PULSE 80; RESP 20; TEMP 36.7; O2SAT 97
[2024-05-31 03:27] VITALS: BP 158/71; PULSE 74; RESP 20; TEMP 36.8; O2SAT 95
[2024-05-31] MEDS: hydrALAZINE HCL 20 MG/ML VIAL 10 MG IV PUSH ×2 (04:34→13:17)
[2024-05-31] MEDS: VANCOMYCIN 1,000 MG/NS 250 ML 1,000 MG/250 ML BAG 250 MG IVPB (05:08)
[2024-05-31 05:21] LABS: Alanine Aminotransferase 18 U/L (6-50); Alkaline Phosphatase 91 U/L (38-126); Anion Gap 7 mmol/L (4-12); Aspartate Amino Transferase 33 U/L (17-59); Bilirubin,Total 0.7 mg/dL (0.2-1.3); Blood Urea Nitrogen 51 mg/dL (9-20); Calcium 8.8 mg/dL (8.4-10.2); Carbon Dioxide 30 mmol/L (22-30); Chloride 104 mmol/L (98-107); Estimated CRCL calculation 55 ml/min; Estimated Glomerular Filt Rate 48; Glucose 103 mg/dL (65-110); Magnesium 2.3 mg/dL (1.6-2.3); Sodium 141 mmol/L (137-145)
[2024-05-31 05:26] LABS: Basophils Absolute Auto 0.1 K/mm3 (0.0-0.1); Basophils Percent Auto 0.5 % (0.2-1.2); Eosinophils Absolute Auto 0.4 K/mm3 (0-0.3); Hemoglobin 8.8 g/dL (14.0-18.0); Immature Granulocyte Percent A 0.9 % (0-0.5); Lymphocytes Absolute Auto 2.01 K/mm3 (0.9-3.2); Lymphocytes Percent Auto 18.4 % (18.3-44.2); Mean Corpuscular HGB Conc 29.3 g/dl (32-36); Mean Corpuscular Hemoglobin 29.3 pg (26-34); Mean Platelet Volume 11.8 fl (7.4-10.4); Monocytes Absolute Auto 0.8 K/mm3 (0.1-0.6); Monocytes Percent Auto 7.5 % (2.6-8.5); Neutrophils Absolute Auto 7.5 K/mm3 (1.3-6.7); Neutrophils Percent Auto 68.7 % (45.5-73.1); Platelet Count Result 263 k/mm3 (150-375); Red Cell Distribution Width 16.6 % (11.5-14.5); White Blood Count 10.9 K/mm3 (4.5-10.0)
[2024-05-31 06:25] LABS: Anisocytosis 1+; Hypochromasia 1+; Platelet Estimate Adequate (Adequate)
[2024-05-31 06:26] LABS: Schistocytes None Seen
[2024-05-31 08:49] VITALS: BP 163/53; PULSE 77; RESP 20; TEMP 36.8; O2SAT 93
[2024-05-31] MEDS: ACETAMINOPHEN ELIXIR 325 MG/10.15 ML UDC 650 MG PO ×2 (08:51→15:56)
[2024-05-31] MEDS: LIDOCAINE 5% PATCH 1 PATCH TRANSDERM (08:51)
[2024-05-31] MEDS: EPOETIN ALFA-EPBX 10,000 UNITS/ML VIAL 10000 UNITS SUB-Q (08:52)
--- NOTE | 2024-05-31 08:52 | P.PNIM_ITS ---
Progress Note: A&P Assessment and Plan (1) Sepsis: Code(s): A41.9 - Sepsis, unspecified organism Status: Resolved Assessment and Plan: sepsis resolved From psoas and prevertebral abscess Continue Vancomycin while waiting for [facility] transfer (2) Bacteremia: Code(s): R78.81 - Bacteremia Status: Acute Assessment and Plan: MRSA bacteremia from Psoas and prevertebral abscess Blood culture still positive on 05/24 repeat blood culture today Continue IV Vanc awaiting placement (3) Perforated abdominal viscus: Code(s): R19.8 - Other specified symptoms and signs involving the digestive system and abdomen Status: Acute Assessment and Plan: Septic shock from peritonitis with perforated gastric ulcer s/p laparotomy with repair repeat CT chest/AP nodular opacities in the right upper lobe and right middle lobe, peritoneal gas ant to stomach with possible small adjacent abscess or fistulous tract Surgery evaluated and noted not abscess is persistent finding not big enough for drainage Continue Peg Tube feeding for now. Gen surgery following (4) Pneumonia: Code(s): J18.9 - Pneumonia, unspecified organism Status: Acute Assessment and Plan: * Nodular opacities in the right upper lobe and right middle lobe, likely representing small infectious/inflammatory foci. 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 * Patient advanced to soft diet per General surgery recommendation * Continue to encourage po intake * Bolus tube feeding via G tube * add reglan and Marinol (6) Dysphagia: Code(s): R13.10 - Dysphagia, unspecified Status: Acute Assessment and Plan: * See plan above * continue tube feeding * Advance diet per Speech (7) Right wrist pain: Code(s): M25.531 - Pain in right wrist Status: Acute Assessment and Plan: * Patient started c/o of right wrist pain on 05/23 * Likely related to repeated blood culture attempts * XR hand RT 2V: No acute fracture. 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 Multiple subarticular lucencies at the wrist and carpus * Physical exam benign (8) Acute kidney injury superimposed on stage 3b chronic kidney disease: Code(s): N17.9 - Acute kidney failure, unspecified; N18.32 - Chronic kidney disease, stage 3b Status: Acute Assessment and Plan: resolved Creatinine 1.48, which is baseline (9) Pleural effusion: Code(s): J90 - Pleural effusion, not elsewhere classified Status: Acute Assessment and Plan: * Seen on CT * Chest x-ray dated compare * Likely due to 3rd spacing * Stable (10) Anemia: Code(s): D64.9 - Anemia, unspecified Status: Acute Assessment and Plan: Iron deficiency anemia on acute loss Stable * Trend CBC. * transfuse if hgb <7.0, or symptomatic * Iron replacement * hb 8.6 (11) HTN (hypertension): Code(s): I10 - Essential (primary) hypertension Status: Acute Assessment and Plan: Controlled * Continue Clonidine patch and Hydralazine PRN. * Trend BP (12) Generalized weakness: Code(s): R53.1 - Weakness Status: Acute Assessment and Plan: * PT/OT-maxi move use for transfer * Patient will likely need placement * No changes to current plan (13) Hypokalemia: Code(s): E87.6 - Hypokalemia Status: Acute Assessment and Plan: Improved * Trend labs * Replace as indicated (14) Hypernatremia: Code(s): E87.0 - Hyperosmolality and hypernatremia Status: Acute Assessment and Plan: Resolved Daily BMP Plan Possible Discitis vs osteomyelitis MRI spine showed increased disc signal at L1-2 through l4-5 also increase T1 signal with adjacent complex loculated right psoas muscle fluid collection, hematoma vs abscess Continue abx as above and abscess culture positive for Staph aureus Awaiting transfer to [facility] Psoas muscle and prevertebral cervical abscess MRI reviewed ELSA drain to psoas abscess and culture positive for Staph Aureus, sensitivity pending continue abscess drainage Blood culture still positive as of 05/27 repeat culture continue Vancomycin MRSA bacteremia from the above continue above care FTT/protein energy malnutrition patient on tube feeding since patient is more awake today and following commands MBS ordered to to see if patient will be cleared for PO intake conitnue monitoring DVT prophylaxis on Sq Lovenox Awaiting transfer to [facility] Subjective Date/time seen: 05/31/24 08:52 Interval history: Patient was evaluated at the bedside along with his daughter. As per daughter patient had a ruptured appendix 2 years ago. Pending transfer to [facility] Review of Systems Review of Systems: 12 systems were reviewed and are negativ e except for as per HPI. All systems reviewed & are unremarkable except as noted in HPI and below ROS unobtainable: Yes unobtainable due to endotracheal tube and unobtainable due to medical condition Exam Narrative: General: Comfortable at bedside HEENT: normocephalic, atraumatic. Mucous membranes moist. EOMI, PERRLA, bilateral sclera anicteric, no conjunctival injection. Respiratory: clear to auscultation bilaterally. No rales/rhonic/wheezes. Cardiovascular: Regular rate and rhythm, normal S1-S2 upon auscultation. No murmurs, rubs, or clicks. Capillary refill less than 3 second. Abdomen: Soft, round, no pulsatile masses, nondistended and nontender. No rebound, no guarding. Bowel sounds present to all four quadrants. No high pitch or tinkling sounds. Extremities: 2 + edema to both LE. No cyanosis, clubbing present. Pulses are palpable 2/2. Active ROM to all four extremities. Neuro: Alert and orientated x 4. PERRLA. Cranial nerves 2-12 intact without focal deficit. Skin: Warm, dry, and intact, without rash, erythema, or lesion. Psych: pleasant, cooperative, normal speech, normal affect, no hallucinations, no dysarthria Skin: G-tube site clean with G-tube in place and clamped. Gauze dressing in jamia ce in the right upper quadrant and left upper quadrant from previous ELSA drains, gauze dressing dry and intact. Const: General: comfortable, no acute distress and uncomfortable Other: Acutely ill-appearing, obese HENMT: Other: Mucous membranes are dry, head is normocephalic atraumatic, few missing teeth, bridge in the lower jaw Eyes: Other: Pupils are equal and reactive, no scleral icterus Neck: Other: No JVD, trachea midline Resp: Effort & Inspection: normal respiratory effort Auscultation: clear to auscultation bilaterally and diminished lung sounds Other: Cardio: Rate: regular rate Rhythm: regular rhythm Other: Telemetry SR 85. GI: Auscultation: normal bowel sounds Other: Gastrostomy tube in place with dry gauze dressing and skin around the G-tube without erythema or drainage. Incision dry with steri strips intact, no erythema. Slightly distended. : Other: Bowman catheter in place was a small amount of turbid yellow urine Urinary Catheter: Urinary Catheter: patent and draining Skin: Other: Generally cold to touch, 2nd cap refill, fingers and toes are cyanotic Neuro: Speech: normal speech Other: Pupils are reactive, equal Extrem: General: pedal edema bilaterally 2+ Other: 2+PP bilateral feet are warm. Psych: Mental Status: mental status grossly normal Affect: normal affect Other: Unable to assess due to patient condition Objective Data Vital Signs Vital Signs: Vital Signs - 24 hr 05/30/24 09:08 05/30/24 09:10 05/30/24 14:00 Temperature 98.1 F 98 F Pulse Rate 81 75 Respiratory Rate 16 18 Blood Pressure 157/74 H 156/70 H Pulse Oximetry 97 97 95 Oxygen Delivery Room Air 04/21/25 20:00 05/30/24 20:05 05/31/24 03:27 Temperature 98.1 F 98.2 F Pulse Rate 80 74 Respiratory Rate 20 20 Blood Pressure 179/66 H 158/71 H Pulse Oximetry 97 95 Oxygen Delivery Room Air 05/31/24 08:49 Temperature 98.2 F Pulse Rate 77 Respiratory Rate 20 Blood Pressure 163/53 H Pulse Oximetry 93 Oxygen Delivery Intake/Output Intake/Output: Intake & Output 05/28/24 05/29/24 05/30/24 05/31/24 23:59 23:59 23:59 23:59 Intake Total 1070 2050 1590 250 Output Total 3100 1700 1455 450 Balance -2030 350 135 -200 Meds/Results Medications: Active Medications Generic Name Dose Route Start Last Admin Trade Name Freq PRN Reason Stop Dose Admin Acetaminophen 650 mg 04/26/24 22:19 04/26/24 22:57 Acetaminophen 650 Mg Suppository RECTAL 650 mg Q6H PRN Administration Mild Pain (1-3) or Fever Acetaminophen 650 mg 05/05/24 10:27 05/30/24 12:20 Acetaminophen Elixir 325 Mg/10.15 Ml Udc PO 650 mg Q6H PRN Administration Mild Pain (1-3) or Fever Alteplase, Recombinant 2 mg 05/22/24 21:26 05/22/24 21:57 Alteplase 2 Mg Vial (Cathflo) IV PUSH 2 mg ONCE PRN Administration Line Occlusion Amlodipine Besylate 5 mg 05/27/24 12:15 05/30/24 09:09 Amlodipine Besylate 5 Mg Tablet PO 5 mg DAILY ROSY Administration Artificial Tears 1 drop 04/27/24 08:37 05/29/24 15:35 Artificial Tears Ophth Soln 15 Ml Bottle EACH EYE 1 drop QID PRN Administration Dry Eye(s) Atorvastatin Calcium 20 mg 04/30/24 09:00 Atorvastatin 20 Mg Tablet BY MOUTH DAILY ROSY Benzocaine 1 lozenge 05/15/24 15:35 05/21/24 12:14 Benzocaine/Menthol (*Bkc) 18 Ea Lozenge PO 1 lozenge PRN PRN Administration Sore Throat Calcium Carbonate 500 mg 05/19/24 08:00 05/30/24 09:10 Calcium/Vitamin D 500 Mg/5 Mcg (200 I.U.) Tablet PO 500 mg DAILY@0800 [facility] Administration Clonidine HCl 1 patch 05/01/24 09:00 05/29/24 08:59 Clonidine 0.1 Mg/24 Hr Patch TRANSDERM 1 patch WEEKLY [facility] Administration Dextrose 12.5 gm 05/23/24 21:48 Dextrose 50% 25 Gm/50 Ml Syringe IV PUSH PRN PRN Hypoglycemia Protocol Dronabinol 2.5 mg 05/17/24 16:30 05/30/24 17:41 Dronabinol (*Crx) 2.5 Mg Capsule PO Not Given DAILY@1630 [facility] Enoxaparin Sodium 40 mg 05/25/24 09:00 05/26/24 09:47 Enoxaparin 40 Mg/0.4 Ml Syringe SUB-Q 40 mg DAILY [facility] Administration Epoetin Olu-epbx 10,000 units 05/14/24 11:05 05/28/24 08:46 Epoetin Olu-Epbx 10,000 Units/Ml Vial SUB-Q 10,000 units TUTHSA@09 [facility] Administration Glucagon 1 mg 05/23/24 21:48 Glucagon For Inj 1 Mg Vial IM PRN PRN Hypoglycemia Protocol Glucose 15 gm 05/23/24 21:48 Glucose Oral Gel 15 Gm Of Glucse In 37.5 Gm Tube PO PRN PRN Hypoglycemia Protocol Guaifenesin/Dextromethorphan 10 ml 05/15/24 10:07 05/22/24 01:23 Guaifenesin/Dextromethorphan 10 Ml Udc PO 10 ml Q4H PRN Administration Cough Hydralazine HCl 10 mg 04/25/24 08:00 05/31/24 04:34 Hydralazine Hcl 20 Mg/Ml Vial IV PUSH 10 mg Q4H PRN Administration Blood Pressure - High Vancomycin HCl 1,000 mg in 250 mls @ 250 mls/hr 05/25/24 06:00 05/31/24 06:08 Vancomycin 1,000 Mg/Ns 250 Ml IVPB Infused Q24H [facility] Infusion Ipratropium Dousman 0.5 mg 05/04/24 09:32 05/17/24 10:11 Ipratropium Br 0.02% Inh Soln 0.5 Mg/2.5 Ml Vial INHALATION 0.5 mg Q6HRT PRN Administration Shortness Of Breath Levalbuterol HCl 0.63 mg 05/04/24 09:32 05/17/24 10:11 Levalbuterol Neb 1.25 Mg/3 Ml INHALATION 0.63 mg Q6HRT PRN Administration Shortness Of Breath Lidocaine 1 patch 05/18/24 09:00 05/30/24 09:10 Lidocaine 5% Patch TRANSDERM 1 patch DAILY ROSY Administration Lisinopril 40 mg 05/20/24 15:05 05/30/24 09:09 Lisinopril 20 Mg Tablet BY MOUTH 40 mg DAILY ROSY Administration Lorazepam 0.5 mg 05/16/24 13:48 05/22/24 09:54 Lorazepam (*Crx) 0.5 Mg Tablet PO 0.5 mg Q6H PRN Administration Anxiety Miscellaneous Information 0 each 05/30/24 00:01 Clonidine Patch Order Will Auto Stop Before The 05/31 Dose. Please Renew Order If This Is XX 06/29/24 00:00 CLARIFY ROSY Ondansetron HCl 4 mg 05/13/24 11:22 05/21/24 05:44 Ondansetron Inj 4 Mg/2 Ml Vial IV PUSH 4 mg Q6H PRN Administration Nausea And Vomiting Pantoprazole Sodium 40 mg 05/23/24 09:00 05/30/24 09:10 Pantoprazole 40 Mg Tablet PO Not Given QAM ROSY Sodium Chloride 10 ml 05/04/24 14:15 Central Line Flush IV PUSH PRN PRN with TPN bag changes Sodium Chloride 20 ml 05/04/24 14:15 05/25/24 04:29 Central Line Flush IV PUSH 20 ml PRN PRN Administration after blood draws Radiology Results: ITS Impressions Chest/Abdomen/Pelvis CTA 04/22/24 18:10 IMPRESSION: Perforated viscus with a large amount of free air and fluid, with mural thickening in the distal stomach and multiple punctate foci of extraluminal air in this area for which site of perforation is suspected. Renal Ultrasound 04/24/24 11:58 IMPRESSION: Simple cyst in the left kidney upper pole. Other appearances are unremarkable. Lower Extremity CTA 05/02/24 16:36 IMPRESSION: 1. Scattered atherosclerotic plaque in the arteries of the left lower limb as detailed above without a discrete hemodynamic significant stenosis. Runoff below the ankle in the left posterior tibial artery this supplies the foot. Atretic distal peroneal and anterior tibial arteries with intraluminal contrast becoming indiscernible at the level of the ankle and with no appreciable contrast in the dorsalis pedis artery. Upper GI Series 05/09/24 09:31 IMPRESSION: 1. Ulcer of the gastric antrum with contained extraluminal contrast similar to 04/28/2024. The extraluminal contrast distribution is worse than typically seen after Clarence patch repair. Abdomen CT 05/09/24 15:27 IMPRESSION: Redemonstration of a tract extending from the posterior superior margin of the antrum of the stomach only partially filled with oral contrast, perhaps demonstrating early healing. Abdomen/Pelvis CT 05/17/24 09:03 Impression: Persistent wall thickening of the gastric antrum/duodenum with surrounding haziness, compatible postoperative change. There is persistent irregular tract with small amount of fluid and external air extending from the gastric antrum superiorly/anteriorly, which could reflect abscess or persistent contained perforation. No extraluminal contrast seen, and no oral contrast seen within this collection. Intramuscular hematoma of the right iliopsoas and psoas major muscles, with additional irregular hematoma extending to the posterior right retroperitoneum. Bilateral fat-containing inguinal hernias. Small bilateral pleural effusions. Chest/Abdomen/Pelvis CT 05/22/24 14:37 IMPRESSION: Nodular opacities in the right upper lobe and right middle lobe, likely representing small infectious/inflammatory foci. Segmental bibasilar atelectasis/consolidation. Small bilateral simple pleural effusions. Cardiomegaly with trace pericardial fluid. Peritoneal gas anterior to the stomach secondary to antral perforation, with possible small adjacent abscess or fistulous tract. Nonfluid density peritoneal and psoas collections, may represent complex ascites from bowel content, blood, or phlegmon, or combination thereof. Significant body wall edema. Hand X-Ray 05/23/24 13:08 IMPRESSION: 1. No acute fracture. 2. Likely chronic malalignment at the wrist and carpus including 1 cm ulnar minus variance and disruption of the proximal carpal row which is most likely sequela of old trauma. 3. 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 4. Multiple subarticular lucencies at the wrist and carpus most likely degenerative subchondral cyst although differential includes chronic erosion such as in the setting of gout. Cervical Spine MRI 05/26/24 17:21 IMPRESSION: 1. Prevertebral/retropharyngeal soft tissue swelling anterior to the mid to upper cervical spine with peripheral enhancing fluid collection potentially a small abscess just right of midline at the level of the base of the dens. Findings were discussed with Dashawn Stevens, the nurse caring for the patient, at 6:18 PM. 2. Severe cervical spondylosis with no evident discitis or osteomyelitis. Thoracic Spine MRI 05/26/24 17:45 IMPRESSION: 1. Moderate thoracic spondylosis with no evident discitis or ostomy myelitis. 2. Small bilateral pleural effusions with dependent atelectasis versus pneumonia in the bilateral lower lobes. Lumbar Spine MRI 05/26/24 17:53 IMPRESSION: 1. Severe lumbar spondylosis with prominent increased disc signal at L1-L2 through L4-L5. Increased fluid signal is likely artifact of feculent phenomena which is seen at the same levels on locations on the prior CT although could not absent exclude discitis given the presence of a nearby complex loculated right psoas muscle fluid collection with increased T1 signal suggesting this is due to hematoma although this could potentially be secondarily infected. Bone marrow signal remains normal with no measurable enhancement along the endplates but no appreciable edema to more specifically elevated concern for discitis or osteomyelitis. Would consider percutaneous abscess drainage with Gram stain and culture of the right psoas fluid collection. Findings were discussed with Dashawn Stevens, the nurse caring for the patient, at 6:[address] 05/27/24 17:21 IMPRESSION: 1. Successful CT-guided right psoas muscle fluid collection drainage catheter placement. 2. 5 mL fluid was sent for aerobic and anaerobic cultures. 3. The catheter will be managed by Dr. Aguiar. Chest X-Ray 05/29/24 16:33 IMPRESSION: Mild pulmonary edema. Segmental left and subsegmental right basilar atelectasis/consolidation. Possible small bilateral pleural effusions. Modified Barium Swallow 05/30/24 12:28 IMPRESSION: Oropharyngeal dysphagia with laryngeal penetration and silent aspiration. Please correlate with speech pathologist findings and specific feeding recommendations. Labs Labs: Laboratory Results - last 24 hr 05/31/24 04:02 WBC 10.9 H RBC 3.00 L Hgb 8.8 L Hct 30.0 L MCV 100.0 MCH 29.3 MCHC 29.3 L RDW 16.6 H Plt Count 263 MPV 11.8 H Immature Gran % (Auto) 0.9 H Neut % (Auto) 68.7 Lymph % (Auto) 18.4 Angelina % (Auto) 7.5 Eos % (Auto) 4.0 Baso % (Auto) 0.5 Lymph # (Auto) 2.01 Angelina # (Auto) 0.8 H Eos # (Auto) 0.4 H Baso # (Auto) 0.1 Abs Immat Gran (auto) 0.10 H Absolute Neuts (auto) 7.5 H Absolute Nucleated RBC 0.000 Band Neutrophils % Not Reportable Nucleated RBC % 0.0 Platelet Estimate Adequate Hypochromasia 1+ Anisocytosis 1+ Schistocytes None seen Sodium 141 Potassium 4.0 Chloride 104 Carbon Dioxide 30 Anion Gap 7 BUN 51 H Creatinine 1.43 H Estim Creat Clear Calc 55 Estimated GFR 48 L Glucose 103 Calcium 8.8 Magnesium 2.3 Total Bilirubin 0.7 AST 33 ALT 18 Alkaline Phosphatase 91 Total Protein 7.0 Albumin 3.0 L Quality VTE Prophylaxis VTE prophylaxis: mechanical ordered and pharmacologic ordered Hospitalist MIPS Advance Care Plan I have confirmed that the patient's Advanced Care Plan is present, code status is documented, or surrogate decision maker is listed in patient medical record.: Yes Medication Reconciliation I have utilized all available resources to obtain, update and review the patients current medications (includes all prescriptions, OTC, herbals, cannabis, and nutritional supplements).: Yes
[2024-05-31] MEDS: CALCIUM/VITAMIN D 500 MG/5 MCG (200 I.U.) TABLET PO (08:53)
[2024-05-31] MEDS: lisinopriL 20 MG TABLET 40 MG BY MOUTH (08:53)
[2024-05-31] MEDS: amLODIPine BESYLATE 5 MG TABLET PO (08:54)
--- NOTE | 2024-05-31 11:24 | PCNFU ---
Nutrition Follow-Up Complete: Inadequate oral intake related to altered GI function as evidenced by need for full TF goal: Meet estimated nutrition needs Goal: We will continue current goal. Pt current nutrition is Nepro 260 ml QID. Last recorded weight is 131 kg Bowel Motility: Last reported BM 05/30 Labs Reviewed: Cr 1.43, BUN 51, Alb 3.0 Meds Noted: Vancomycin Skin: G tube Additional Notes: MBS performed 05/30-failed. Patient remains on G tube feedings of Nepro 260 ml QID with 180 ml water flush QID. Total Nutrition: 1872 kcal/84 gm protein/756 ml water. Meeting 100% kcal needs at 15 kcal/kg and 88% protein needs at 0.8-1.0 gm/kg. Agree with diet orders. Monitoring tube feeding tolerance, GI function, plan of care, weights, labs, orders Follow up Thursday/Thursday
[2024-05-31 13:14] VITALS: BP 167/60; PULSE 72; RESP 18; TEMP 36.3; O2SAT 97
[2024-05-31 14:00] VITALS: BP 160/64; PULSE 74; RESP 19; TEMP 36.4; O2SAT 94
[2024-05-31 20:51] VITALS: BP 117/61; PULSE 84; RESP 20; TEMP 36.5; O2SAT 96
[2024-06-01 03:40] VITALS: BP 145/60; PULSE 77; RESP 20; TEMP 36.5; O2SAT 92
[2024-06-01] MEDS: ACETAMINOPHEN ELIXIR 325 MG/10.15 ML UDC 650 MG PO ×3 (03:42→22:38)
[2024-06-01] MEDS: VANCOMYCIN 1,000 MG/NS 250 ML 1,000 MG/250 ML BAG 250 MG IVPB (05:05)
[2024-06-01 05:44] LABS: Hemoglobin 9.2 g/dL (14.0-18.0); Mean Corpuscular HGB Conc 29.7 g/dl (32-36); Mean Corpuscular Volume 97.8 fl (80-100); Mean Platelet Volume 11.4 fl (7.4-10.4); Platelet Count Result 288 k/mm3 (150-375); Red Blood Count 3.17 M/mm3 (4.6-6.20); Red Cell Distribution Width 16.7 % (11.5-14.5); White Blood Count 9.3 K/mm3 (4.5-10.0)
[2024-06-01 06:20] LABS: Alanine Aminotransferase 18 U/L (6-50); Albumin Level 3.3 g/dL (3.5-5.1); Alkaline Phosphatase 105 U/L (38-126); Anion Gap 7 mmol/L (4-12); Aspartate Amino Transferase 27 U/L (17-59); Bilirubin,Total 0.4 mg/dL (0.2-1.3); Blood Urea Nitrogen 53 mg/dL (9-20); Carbon Dioxide 32 mmol/L (22-30); Chloride 104 mmol/L (98-107); Estimated CRCL calculation 56 ml/min; Estimated Glomerular Filt Rate 49; Glucose 109 mg/dL (65-110); Potassium 3.6 mmol/L (3.4-5.0); Sodium 143 mmol/L (137-145)
[2024-06-01] MEDS: LIDOCAINE 5% PATCH 1 PATCH TRANSDERM (08:40)
[2024-06-01] MEDS: PANTOPRAZOLE 40 MG TABLET PO (08:40)
--- NOTE | 2024-06-01 09:24 | P.PNIM_ITS ---
Progress Note: A&P Assessment and Plan (1) Sepsis: Code(s): A41.9 - Sepsis, unspecified organism Status: Resolved Assessment and Plan: sepsis resolved From psoas and prevertebral abscess Continue Vancomycin while waiting for [facility] transfer (2) Bacteremia: Code(s): R78.81 - Bacteremia Status: Acute Assessment and Plan: MRSA bacteremia from Psoas and prevertebral abscess Blood culture still positive on 05/24 repeat blood culture today Continue IV Vanc awaiting placement (3) Perforated abdominal viscus: Code(s): R19.8 - Other specified symptoms and signs involving the digestive system and abdomen Status: Acute Assessment and Plan: Septic shock from peritonitis with perforated gastric ulcer s/p laparotomy with repair repeat CT chest/AP nodular opacities in the right upper lobe and right middle lobe, peritoneal gas ant to stomach with possible small adjacent abscess or fistulous tract Surgery evaluated and noted not abscess is persistent finding not big enough for drainage Continue Peg Tube feeding for now. Gen surgery following (4) Pneumonia: Code(s): J18.9 - Pneumonia, unspecified organism Status: Acute Assessment and Plan: * Nodular opacities in the right upper lobe and right middle lobe, likely representing small infectious/inflammatory foci. 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 * Patient advanced to soft diet per General surgery recommendation * Continue to encourage po intake * Bolus tube feeding via G tube * add reglan and Marinol (6) Dysphagia: Code(s): R13.10 - Dysphagia, unspecified Status: Acute Assessment and Plan: * See plan above * continue tube feeding * Advance diet per Speech (7) Right wrist pain: Code(s): M25.531 - Pain in right wrist Status: Acute Assessment and Plan: * Patient started c/o of right wrist pain on 05/23 * Likely related to repeated blood culture attempts * XR hand RT 2V: No acute fracture. 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 Multiple subarticular lucencies at the wrist and carpus * Physical exam benign (8) Acute kidney injury superimposed on stage 3b chronic kidney disease: Code(s): N17.9 - Acute kidney failure, unspecified; N18.32 - Chronic kidney disease, stage 3b Status: Acute Assessment and Plan: resolved Creatinine 1.48, which is baseline (9) Pleural effusion: Code(s): J90 - Pleural effusion, not elsewhere classified Status: Acute Assessment and Plan: * Seen on CT * Chest x-ray dated compare * Likely due to 3rd spacing * Stable (10) Anemia: Code(s): D64.9 - Anemia, unspecified Status: Acute Assessment and Plan: Iron deficiency anemia on acute loss Stable * Trend CBC. * transfuse if hgb <7.0, or symptomatic * Iron replacement * hb 8.6 (11) HTN (hypertension): Code(s): I10 - Essential (primary) hypertension Status: Acute Assessment and Plan: Controlled * Continue Clonidine patch and Hydralazine PRN. * Trend BP (12) Generalized weakness: Code(s): R53.1 - Weakness Status: Acute Assessment and Plan: * PT/OT-maxi move use for transfer * Patient will likely need placement * No changes to current plan (13) Hypokalemia: Code(s): E87.6 - Hypokalemia Status: Acute Assessment and Plan: Improved * Trend labs * Replace as indicated (14) Hypernatremia: Code(s): E87.0 - Hyperosmolality and hypernatremia Status: Acute Assessment and Plan: Resolved Daily BMP Plan Possible Discitis vs osteomyelitis MRI spine showed increased disc signal at L1-2 through l4-5 also increase T1 signal with adjacent complex loculated right psoas muscle fluid collection, hematoma vs abscess Continue abx as above and abscess culture positive for Staph aureus Awaiting transfer to [facility] Psoas muscle and prevertebral cervical abscess MRI reviewed ELSA drain to psoas abscess and culture positive for Staph Aureus, sensitivity pending continue abscess drainage Blood culture still positive as of 05/27 repeat culture continue Vancomycin MRSA bacteremia from the above continue above care FTT/protein energy malnutrition patient on tube feeding since patient is more awake today and following commands Follow speech therapy continue monitoring DVT prophylaxis on Sq Lovenox Awaiting transfer to [facility] Subjective Date/time seen: 06/01/24 09:24 Interval history: Called [facility] and and spoke with the hospitalist who recommend transferring the patient to [place] due to complexity of case and to the benefit of patient. Explained to the family and aggress to wait until transfer to [place] . Accepted at [place] and pending transfer. Patient has prolonged hospitalization for more than 40 days. Brief hospital course: Post laparotomy with repair of large perforated gastric ulcer with omental Clarence patch.Gastrotomy tube was placed in OR during surgery since anaesthesia was not able to place NG tube. During the course of hospitalization patient had evidence of cold leg and underwent CTA on 05/02/24 and no evidence of sever occlusion and started on AC.Patient BC shows MRSA and was treated with Vancomycin. Eventually 05/26 performed MRI lumbar shows hematoma/abscess and Perc drain was placed. Review of Systems Review of Systems: 12 systems were reviewed and are negativ e except for as per HPI. All systems reviewed & are unremarkable except as noted in HPI and below ROS unobtainable: Yes unobtainable due to endotracheal tube and unobtainable due to medical condition Exam Narrative: General: Comfortable at bedside HEENT: normocephalic, atraumatic. Mucous membranes moist. EOMI, PERRLA, bilateral sclera anicteric, no conjunctival injection. Respiratory: clear to auscultation bilaterally. No rales/rhonic/wheezes. Cardiovascular: Regular rate and rhythm, normal S1-S2 upon auscultation. No murmurs, rubs, or clicks. Capillary refill less than 3 second. Abdomen: Soft, round, no pulsatile masses, nondistended and nontender. No rebound, no guarding. Bowel sounds present to all four quadrants. No high pitch or tinkling sounds. Extremities: 2 + edema to both LE. No cyanosis, clubbing present. Pulses are palpable 2/2. Active ROM to all four extremities. Neuro: Alert and orientated x 4. PERRLA. Cranial nerves 2-12 intact without focal deficit. Skin: Warm, dry, and intact, without rash, erythema, or lesion. Psych: pleasant, cooperative, normal speech, normal affect, no hallucinations, no dysarthria Skin: G-tube site clean with G-tube in place and clamped. Gauze dressing in place in the right upper quadrant and left upper quadrant from previous ELSA drains, gauze dressing dry and intact. Const: General: comfortable, no acute distress and uncomfortable Other: Acutely ill-appearing, obese HENMT: Other: Mucous membranes are dry, head is normocephalic atraumatic, few missing teeth, bridge in the lower jaw Eyes: Other: Pupils are equal and reactive, no scleral icterus Neck: Other: No JVD, trachea midline Resp: Effort & Inspection: normal respiratory effort Auscultation: clear to auscultation bilaterally and diminished lung sounds Other: Cardio: Rate: regular rate Rhythm: regular rhythm Other: Telemetry SR 85. GI: Auscultation: normal bowel sounds Other: Gastrostomy tube in place with dry gauze dressing and skin around the G-tube without erythema or drainage. Incision dry with steri strips intact, no erythema. Slightly distended. : Other: Bowman catheter in place was a small amount of turbid yellow urine Urinary Catheter: Urinary Catheter: patent and draining Skin: Other: Generally cold to touch, 2nd cap refill, fingers and toes are cyanotic Neuro: Speech: normal speech Other: Pupils are reactive, equal Extrem: General: pedal edema bilaterally 2+ Other: 2+PP bilateral feet are warm. Psych: Mental Status: mental status grossly normal Affect: normal affect Other: Unable to assess due to patient condition Objective Data Vital Signs Vital Signs: Vital Signs - 24 hr 05/31/24 13:14 05/31/24 14:00 05/31/24 20:51 Temperature 97.4 F L 97.6 F 97.7 F Pulse Rate 72 74 84 Respiratory Rate 18 19 20 Blood Pressure 167/60 H 160/64 H 117/61 Pulse Oximetry 97 94 96 Oxygen Delivery 05/31/24 22:30 06/01/24 03:40 Temperature 97.7 F Pulse Rate 77 Respiratory Rate 20 Blood Pressure 145/60 H Pulse Oximetry 92 Oxygen Delivery Room Air Intake/Output Intake/Output: Intake & Output 05/29/24 05/30/24 05/31/24 06/01/24 23:59 23:59 23:59 23:59 Intake Total 2050 1590 1570 0 Output Total 1700 1455 1250 400 Balance 350 135 320 -400 Meds/Results Medications: Active Medications Generic Name Dose Route Start Last Admin Trade Name Freq PRN Reason Stop Dose Admin Acetaminophen 650 mg 04/26/24 22:19 04/26/24 22:57 Acetaminophen 650 Mg Suppository RECTAL 650 mg Q6H PRN Administration Mild Pain (1-3) or Fever Acetaminophen 650 mg 05/05/24 10:27 06/01/24 03:42 Acetaminophen Elixir 325 Mg/10.15 Ml Udc PO 650 mg Q6H PRN Administration Mild Pain (1-3) or Fever Alteplase, Recombinant 2 mg 05/22/24 21:26 05/22/24 21:57 Alteplase 2 Mg Vial (Cathflo) IV PUSH 2 mg ONCE PRN Administration Line Occlusion Amlodipine Besylate 5 mg 05/27/24 12:15 05/31/24 08:54 Amlodipine Besylate 5 Mg Tablet PO 5 mg DAILY ROSY Administration Artificial Tears 1 drop 04/27/24 08:37 05/29/24 15:35 Artificial Tears Ophth Soln 15 Ml Bottle EACH EYE 1 drop QID PRN Administration Dry Eye(s) Atorvastatin Calcium 20 mg 04/30/24 09:00 Atorvastatin 20 Mg Tablet BY MOUTH DAILY ROSY Benzocaine 1 lozenge 05/15/24 15:35 05/21/24 12:14 Benzocaine/Menthol (*Bkc) 18 Ea Lozenge PO 1 lozenge PRN PRN Administration Sore Throat Calcium Carbonate 500 mg 05/19/24 08:00 05/31/24 08:53 Calcium/Vitamin D 500 Mg/5 Mcg (200 I.U.) Tablet PO 500 mg DAILY@0800 [facility] Administration Dextrose 12.5 gm 05/23/24 21:48 Dextrose 50% 25 Gm/50 Ml Syringe IV PUSH PRN PRN Hypoglycemia Protocol Dronabinol 2.5 mg 05/17/24 16:30 05/31/24 17:33 Dronabinol (*Crx) 2.5 Mg Capsule PO Not Given DAILY@1630 [facility] Enoxaparin Sodium 40 mg 05/25/24 09:00 05/26/24 09:47 Enoxaparin 40 Mg/0.4 Ml Syringe SUB-Q 40 mg DAILY [facility] Administration Epoetin Olu-epbx 10,000 units 05/14/24 11:05 05/31/24 08:52 Epoetin Olu-Epbx 10,000 Units/Ml Vial SUB-Q 10,000 units TUTHSA@09 [facility] Administration Glucagon 1 mg 05/23/24 21:48 Glucagon For Inj 1 Mg Vial IM PRN PRN Hypoglycemia Protocol Glucose 15 gm 05/23/24 21:48 Glucose Oral Gel 15 Gm Of Glucse In 37.5 Gm Tube PO PRN PRN Hypoglycemia Protocol Guaifenesin/Dextromethorphan 10 ml 05/15/24 10:07 05/22/24 01:23 Guaifenesin/Dextromethorphan 10 Ml Udc PO 10 ml Q4H PRN Administration Cough Hydralazine HCl 10 mg 04/25/24 08:00 05/31/24 13:17 Hydralazine Hcl 20 Mg/Ml Vial IV PUSH 10 mg Q4H PRN Administration Blood Pressure - High Vancomycin HCl 1,000 mg in 250 mls @ 250 mls/hr 05/25/24 06:00 06/01/24 05:05 Vancomycin 1,000 Mg/Ns 250 Ml IVPB 250 mls/hr Q24H [facility] Administration Ipratropium [place] 0.5 mg 05/04/24 09:32 05/17/24 10:11 Ipratropium Br 0.02% Inh Soln 0.5 Mg/2.5 Ml Vial INHALATION 0.5 mg Q6HRT PRN Administration Shortness Of Breath Levalbuterol HCl 0.63 mg 05/04/24 09:32 05/17/24 10:11 Levalbuterol Neb 1.25 Mg/3 Ml INHALATION 0.63 mg Q6HRT PRN Administration Shortness Of Breath Lidocaine 1 patch 05/18/24 09:00 06/01/24 08:40 Lidocaine 5% Patch TRANSDERM 1 patch DAILY ROS[facility] Administration Lisinopril 40 mg 05/20/24 15:05 05/31/24 08:53 Lisinopril 20 Mg Tablet BY MOUTH 40 mg DAILY [facility] Administration Lorazepam 0.5 mg 05/16/24 13:48 05/22/24 09:54 Lorazepam (*Crx) 0.5 Mg Tablet PO 0.5 mg Q6H PRN Administration Anxiety Miscellaneous Information 0 each 05/30/24 00:01 Clonidine Patch Order Will Auto Stop Before The 05/31 Dose. Please Renew Order If This Is XX 06/29/24 00:00 CLARIFY ROSY Ondansetron HCl 4 mg 05/13/24 11:22 05/21/24 05:44 Ondansetron Inj 4 Mg/2 Ml Vial IV PUSH 4 mg Q6H PRN Administration Nausea And Vomiting Pantoprazole Sodium 40 mg 05/23/24 09:00 06/01/24 08:40 Pantoprazole 40 Mg Tablet PO 40 mg QAM ROS[facility] Administration Sodium Chloride 10 ml 05/04/24 14:15 Central Line Flush IV PUSH PRN PRN with TPN bag changes Sodium Chloride 20 ml 05/04/24 14:15 05/25/24 04:29 Central Line Flush IV PUSH 20 ml PRN PRN Administration after blood draws Radiology Results: ITS Impressions Chest/Abdomen/Pelvis CTA 04/22/24 18:10 IMPRESSION: Perforated viscus with a large amount of free air and fluid, with mural thickening in the distal stomach and multiple punctate foci of extraluminal air in this area for which site of perforation is suspected. Renal Ultrasound 04/24/24 11:58 IMPRESSION: Simple cyst in the left kidney upper pole. Other appearances are unremarkable. Lower Extremity CTA 05/02/24 16:36 IMPRESSION: 1. Scattered atherosclerotic plaque in the arteries of the left lower limb as detailed above without a discrete hemodynamic significant stenosis. Runoff below the ankle in the left posterior tibial artery this supplies the foot. Atretic distal peroneal and anterior tibial arteries with intraluminal contrast becoming indiscernible at the level of the ankle and with no appreciable contrast in the dorsalis pedis artery. Upper GI Series 05/09/24 09:31 IMPRESSION: 1. Ulcer of the gastric antrum with contained extraluminal contrast similar to 04/28/2024. The extraluminal contrast distribution is worse than typically seen after Clarence patch repair. Abdomen CT 05/09/24 15:27 IMPRESSION: Redemonstration of a tract extending from the posterior superior margin of the antrum of the stomach only partially filled with oral contrast, perhaps demonstrating early healing. Abdomen/Pelvis CT 05/17/24 09:03 Impression: Persistent wall thickening of the gastric antrum/duodenum with surrounding haziness, compatible postoperative change. There is persistent irregular tract with small amount of fluid and external air extending from the gastric antrum superiorly/anteriorly, which could reflect abscess or persistent contained perforation. No extraluminal contrast seen, and no oral contrast seen within this collection. Intramuscular hematoma of the right iliopsoas and psoas major muscles, with additional irregular hematoma extending to the posterior right retroperitoneum. Bilateral fat-containing inguinal hernias. Small bilateral pleural effusions. Chest/Abdomen/Pelvis CT 05/22/24 14:37 IMPRESSION: Nodular opacities in the right upper lobe and right middle lobe, likely representing small infectious/inflammatory foci. Segmental bibasilar atelectasis/consolidation. Small bilateral simple pleural effusions. Cardiomegaly with trace pericardial fluid. Peritoneal gas anterior to the stomach secondary to antral perforation, with possible small adjacent abscess or fistulous tract. Nonfluid density peritoneal and psoas collections, may represent complex ascites from bowel content, blood, or phlegmon, or combination thereof. Significant body wall edema. Hand X-Ray 05/23/24 13:08 IMPRESSION: 1. No acute fracture. 2. Likely chronic malalignment at the wrist and carpus including 1 cm ulnar minus variance and disruption of the proximal carpal row which is most likely sequela of old trauma. 3. 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 4. Multiple subarticular lucencies at the wrist and carpus most likely degenerative subchondral cyst although differential includes chronic erosion such as in the setting of gout. Cervical Spine MRI 05/26/24 17:21 IMPRESSION: 1. Prevertebral/retropharyngeal soft tissue swelling anterior to the mid to upper cervical spine with peripheral enhancing fluid collection potentially a small abscess just right of midline at the level of the base of the dens. Findings were discussed with Dashawn Stevens, the nurse caring for the patient, at 6:18 PM. 2. Severe cervical spondylosis with no evident discitis or osteomyelitis. Thoracic Spine MRI 05/26/24 17:45 IMPRESSION: 1. Moderate thoracic spondylosis with no evident discitis or ostomy myelitis. 2. Small bilateral pleural effusions with dependent atelectasis versus pneumonia in the bilateral lower lobes. Lumbar Spine MRI 05/26/24 17:53 IMPRESSION: 1. Severe lumbar spondylosis with prominent increased disc signal at L1-L2 through L4-L5. Increased fluid signal is likely artifact of feculent phenomena which is seen at the same levels on locations on the prior CT although could not absent exclude discitis given the presence of a nearby complex loculated right psoas muscle fluid collection with increased T1 signal suggesting this is due to hematoma although this could potentially be secondarily infected. Bone marrow signal remains normal with no measurable enhancement along the endplates but no appreciable edema to more specifically elevated concern for discitis or osteom yelitis. Would consider percutaneous abscess drainage with Gram stain and culture of the right psoas fluid collection. Findings were discussed with Dashawn Stevens, the nurse caring for the patient, at 6:[address] 05/27/24 17:21 IMPRESSION: 1. Successful CT-guided right psoas muscle fluid collection drainage catheter placement. 2. 5 mL fluid was sent for aerobic and anaerobic cultures. 3. The catheter will be managed by Dr. Aguiar. Chest X-Ray 05/29/24 16:33 IMPRESSION: Mild pulmonary edema. Segmental left and subsegmental right basilar atelectasis/consolidation. Possible small bilateral pleural effusions. Modified Barium Swallow 05/30/24 12:28 IMPRESSION: Oropharyngeal dysphagia with laryngeal penetration and silent aspiration. Please correlate with speech pathologist findings and specific feeding recommendations. Labs Labs: Laboratory Results - last 24 hr 06/01/24 05:21 WBC 9.3 RBC 3.17 L Hgb 9.2 L Hct 31.0 L MCV 97.8 MCH 29.0 MCHC 29.7 L RDW 16.7 H Plt Count 288 MPV 11.4 H Sodium 143 Potassium 3.6 Chloride 104 Carbon Dioxide 32 H Anion Gap 7 BUN 53 H Creatinine 1.41 H Estim Creat Clear Calc 56 Estimated GFR 49 L Glucose 109 Calcium 9.0 Total Bilirubin 0.4 AST 27 ALT 18 Alkaline Phosphatase 105 Total Protein 7.0 Albumin 3.3 L Quality VTE Prophylaxis VTE prophylaxis: mechanical ordered and pharmacologic ordered Hospitalist [facility] Advance Care Plan I have confirmed that the patient's Advanced Care Plan is present, code status is documented, or surrogate decision maker is listed in patient medical record.: Yes Medication Reconciliation I have utilized all available resources to obtain, update and review the patients current medications (includes all prescriptions, OTC, herbals, cannabis, and nutritional supplements).: Yes
[2024-06-01] MEDS: CALCIUM/VITAMIN D 500 MG/5 MCG (200 I.U.) TABLET PO (10:40)
[2024-06-01] MEDS: amLODIPine BESYLATE 5 MG TABLET PO (10:41)
[2024-06-01] MEDS: lisinopriL 20 MG TABLET 40 MG BY MOUTH (10:41)
[2024-06-01 14:00] VITALS: BP 131/54; PULSE 75; RESP 20; TEMP 37; O2SAT 96
--- NOTE | 2024-06-01 16:40 | PM.PNGS ---
Progress Note: A&P Assessment and Plan (1) Perforated gastric ulcer: Onset Date: 04/2024 Qualifiers: Gastric ulcer chronicity: acute Qualified Code(s): K25.1 - Acute gastric ulcer with perforation Code(s): K25.5 - Chronic or unspecified gastric ulcer with perforation Status: Acute Assessment and Plan: Tolerating G-tube feedings. No acute surgical issues. (2) Psoas abscess, right: Code(s): K68.12 - Psoas muscle abscess Status: Acute Assessment and Plan: Status post percutaneous drain placed 05/27/2024. Drain appears mostly to be old blood. Cultures growing MRSA (3) MRSA bacteremia: Code(s): R78.81 - Bacteremia; B95.62 - Methicillin resistant Staphylococcus aureus infection as the cause of diseases classified elsewhere Status: Acute Assessment and Plan: Repeat cultures on 05/28 and 05/29 negative so far. Multiple potential sources. Accepted for transfer to [facility], but waiting for bed placement. Hospitalist attempting transfer to other tertiary care facilities. (4) Abnormal MRI, neck: Code(s): R93.89 - Abnormal findings on diagnostic imaging of other specified body structures Status: Acute (5) Stage 3b chronic kidney disease: Code(s): N18.32 - Chronic kidney disease, stage 3b Status: Chronic (6) Malnutrition following gastrointestinal surgery: Code(s): K91.2 - Postsurgical malabsorption, not elsewhere classified Status: Chronic Plan I have discussed the patient's case and plan of care with Dr. Moreno. Subjective Subjective Date/Time Seen: 06/01/24 16:40 Interval history: No acute changes. Tolerating tube feedings. Exam Const: General: comfortable and no acute distress GI: Inspection: non-distended, incision (well healed) and other (Psoas pigtail drain with dark bloody output) GI Palp: Yes Soft to palpation, No Tenderness to palpation present (GI), No Guarding due to palpation present (GI) and No Rebound tenderness present Auscultation: normal bowel sounds Other: G-tube in place and clamped Objective Data Vital Signs Vital Signs: Vital Signs - 24 hr 05/31/24 20:51 05/31/24 22:30 06/01/24 03:40 Temperature 97.7 F 97.7 F Pulse Rate 84 77 Respiratory Rate 20 20 Blood Pressure 117/61 145/60 H Pulse Oximetry 96 92 Oxygen Delivery Room Air 06/01/24 08:00 Temperature Pulse Rate Respiratory Rate Blood Pressure Pulse Oximetry Oxygen Delivery Room Air Intake/Output Intake/Output: Intake & Output 05/29/24 05/30/24 05/31/24 06/01/24 23:59 23:59 23:59 23:59 Intake Total 2050 1590 1570 250 Output Total 1700 1455 1250 400 Balance 350 135 320 -150 Meds/Results Medications: Active Medications Generic Name Dose Route Start Last Admin Trade Name Freq PRN Reason Stop Dose Admin Acetaminophen 650 mg 04/26/24 22:19 04/26/24 22:57 Acetaminophen 650 Mg Suppository RECTAL 650 mg Q6H PRN Administration Mild Pain (1-3) or Fever Acetaminophen 650 mg 05/05/24 10:27 06/01/24 13:30 Acetaminophen Elixir 325 Mg/10.15 Ml Udc PO 650 mg Q6H PRN Administration Mild Pain (1-3) or Fever Alteplase, Recombinant 2 mg 05/22/24 21:26 05/22/24 21:57 Alteplase 2 Mg Vial (Cathflo) IV PUSH 2 mg ONCE PRN Administration Line Occlusion Amlodipine Besylate 5 mg 05/27/24 12:15 06/01/24 10:41 Amlodipine Besylate 5 Mg Tablet PO 5 mg DAILY ROSY Administration Artificial Tears 1 drop 04/27/24 08:37 05/29/24 15:35 Artificial Tears Ophth Soln 15 Ml Bottle EACH EYE 1 drop QID PRN Administration Dry Eye(s) Atorvastatin Calcium 20 mg 04/30/24 09:00 Atorvastatin 20 Mg Tablet BY MOUTH DAILY ROSY Benzocaine 1 lozenge 05/15/24 15:35 05/21/24 12:14 Benzocaine/Menthol (*Bkc) 18 Ea Lozenge PO 1 lozenge PRN PRN Administration Sore Throat Calcium Carbonate 500 mg 05/19/24 08:00 06/01/24 10:40 Calcium/Vitamin D 500 Mg/5 Mcg (200 I.U.) Tablet PO 500 mg DAILY@0800 ROSY Administration Dextrose 12.5 gm 05/23/24 21:48 Dextrose 50% 25 Gm/50 Ml Syringe IV PUSH PRN PRN Hypoglycemia Protocol Dronabinol 2.5 mg 05/17/24 16:30 05/31/24 17:33 Dronabinol (*Crx) 2.5 Mg Capsule PO Not Given DAILY@1630 [facility] Enoxaparin Sodium 40 mg 05/25/24 09:00 05/26/24 09:47 Enoxaparin 40 Mg/0.4 Ml Syringe SUB-Q 40 mg DAILY ROSY Administration Epoetin Olu-epbx 10,000 units 05/14/24 11:05 05/31/24 08:52 Epoetin Olu-Epbx 10,000 Units/Ml Vial SUB-Q 10,000 units TUTHSA@09 [facility] Administration Glucagon 1 mg 05/23/24 21:48 Glucagon For Inj 1 Mg Vial IM PRN PRN Hypoglycemia Protocol Glucose 15 gm 05/23/24 21:48 Glucose Oral Gel 15 Gm Of Glucse In 37.5 Gm Tube PO PRN PRN Hypoglycemia Protocol Guaifenesin/Dextromethorphan 10 ml 05/15/24 10:07 05/22/24 01:23 Guaifenesin/Dextromethorphan 10 Ml Udc PO 10 ml Q4H PRN Administration Cough Hydralazine HCl 10 mg 04/25/24 08:00 05/31/24 13:17 Hydralazine Hcl 20 Mg/Ml Vial IV PUSH 10 mg Q4H PRN Administration Blood Pressure - High Vancomycin HCl 1,000 mg in 250 mls @ 250 mls/hr 05/25/24 06:00 06/01/24 06:05 Vancomycin 1,000 Mg/Ns 250 Ml IVPB Infused Q24H [facility] Infusion Ipratropium [place] 0.5 mg 05/04/24 09:32 05/17/24 10:11 Ipratropium Br 0.02% Inh Soln 0.5 Mg/2.5 Ml Vial INHALATION 0.5 mg Q6HRT PRN Administration Shortness Of Breath Levalbuterol HCl 0.63 mg 05/04/24 09:32 05/17/24 10:11 Levalbuterol Neb 1.25 Mg/3 Ml INHALATION 0.63 mg Q6HRT PRN Administration Shortness Of Breath Lidocaine 1 patch 05/18/24 09:00 06/01/24 08:40 Lidocaine 5% Patch TRANSDERM 1 patch DAILY [facility] Administration Lisinopril 40 mg 05/20/24 15:05 06/01/24 10:41 Lisinopril 20 Mg Tablet BY MOUTH 40 mg DAILY ROSY Administration Lorazepam 0.5 mg 05/16/24 13:48 05/22/24 09:54 Lorazepam (*Crx) 0.5 Mg Tablet PO 0.5 mg Q6H PRN Administration Anxiety Miscellaneous Information 0 each 05/30/24 00:01 Clonidine Patch Order Will Auto Stop Before The 05/31 Dose. Please Renew Order If This Is XX 06/29/24 00:00 CLARIFY ROSY Ondansetron HCl 4 mg 05/13/24 11:22 05/21/24 05:44 Ondansetron Inj 4 Mg/2 Ml Vial IV PUSH 4 mg Q6H PRN Administration Nausea And Vomiting Pantoprazole Sodium 40 mg 05/23/24 09:00 06/01/24 08:40 Pantoprazole 40 Mg Tablet PO 40 mg QAM ROSY Administration Sodium Chloride 10 ml 05/04/24 14:15 Central Line Flush IV PUSH PRN PRN with TPN bag changes Sodium Chloride 20 ml 05/04/24 14:15 05/25/24 04:29 Central Line Flush IV PUSH 20 ml PRN PRN Administration after blood draws Radiology Results: ITS Impressions Chest/Abdomen/Pelvis CTA 04/22/24 18:10 IMPRESSION: Perforated viscus with a large amount of free air and fluid, with mural thickening in the distal stomach and multiple punctate foci of extraluminal air in this area for which site of perforation is suspected. Renal Ultrasound 04/24/24 11:58 IMPRESSION: Simple cyst in the left kidney upper pole. Other appearances are unremarkable. Lower Extremity CTA 05/02/24 16:36 IMPRESSION: 1. Scattered atherosclerotic plaque in the arteries of the left lower limb as detailed above without a discrete hemodynamic significant stenosis. Runoff below the ankle in the left posterior tibial artery this supplies the foot. Atretic distal peroneal and anterior tibial arteries with intraluminal contrast becoming indiscernible at the level of the ankle and with no appreciable contrast in the dorsalis pedis artery. Upper GI Series 05/09/24 09:31 IMPRESSION: 1. Ulcer of the gastric antrum with contained extraluminal contrast similar to 04/28/2024. The extraluminal contrast distribution is worse than typically seen after [place] patch repair. Abdomen CT 05/09/24 15:27 IMPRESSION: Redemonstration of a tract extending from the posterior superior margin of the antrum of the stomach only partially filled with oral contrast, perhaps demonstrating early healing. Abdomen/Pelvis CT 05/17/24 09:03 Impression: Persistent wall thickening of the gastric antrum/duodenum with surrounding haziness, compatible postoperative change. There is persistent irregular tract with small amount of fluid and external air extending from the gastric antrum superiorly/anteriorly, which could reflect abscess or persistent contained perforation. No extraluminal contrast seen, and no oral contrast seen within this collection. Intramuscular hematoma of the right iliopsoas and psoas major muscles, with additional irregular hematoma extending to the posterior right retroperitoneum. Bilateral fat-containing inguinal hernias. Small bilateral pleural effusions. Chest/Abdomen/Pelvis CT 05/22/24 14:37 IMPRESSION: Nodular opacities in the right upper lobe and right middle lobe, likely representing small infectious/inflammatory foci. Segmental bibasilar atelectasis/consolidation. Small bilateral simple pleural effusions. Cardiomegaly with trace pericardial fluid. Peritoneal gas anterior to the stomach secondary to antral perforation, with possible small adjacent abscess or fistulous tract. Nonfluid density peritoneal and psoas collections, may represent complex ascites from bowel content, blood, or phlegmon, or combination thereof. Significant body wall edema. Hand X-Ray 05/23/24 13:08 IMPRESSION: 1. No acute fracture. 2. Likely chronic malalignment at the wrist and carpus including 1 cm ulnar minus variance and disruption of the proximal carpal row which is most likely sequela of old trauma. 3. 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 4. Multiple subarticular lucencies at the wrist and carpus most likely degenerative subchondral cyst although differential includes chronic erosion such as in the setting of gout. Cervical Spine MRI 05/26/24 17:21 IMPRESSION: 1. Prevertebral/retropharyngeal soft tissue swelling anterior to the mid to upper cervical spine with peripheral enhancing fluid collection potentially a small abscess just right of midline at the level of the base of the dens. Findings were discussed with Dashawn Stevens, the nurse caring for the patient, at 6:18 PM. 2. Severe cervical spondylosis with no evident discitis or osteomyelitis. Thoracic Spine MRI 05/26/24 17:45 IMPRESSION: 1. Moderate thoracic spondylosis with no evident discitis or ostomy myelitis. 2. Small bilateral pleural effusions with dependent atelectasis versus pneumonia in the bilateral lower lobes. Lumbar Spine MRI 05/26/24 17:53 IMPRESSION: 1. Severe lumbar spondylosis with prominent increased disc signal at L1-L2 through L4-L5. Increased fluid signal is likely artifact of feculent phenomena which is seen at the same levels on locations on the prior CT although could not absent exclude discitis given the presence of a nearby complex loculated right psoas muscle fluid collection with increased T1 signal suggesting this is due to hematoma although this could potentially be secondarily infected. Bone marrow signal remains normal with no measurable enhancement along the endplates but no appreciable edema to more specifically elevated concern for discitis or osteomyelitis. Would consider percutaneous abscess drainage with Gram stain and culture of the right psoas fluid collection. Findings were discussed with Dashawn Stevens, the nurse caring for the patient, at 6:[address] 05/27/24 17:21 IMPRESSION: 1. Successful CT-guided right psoas muscle fluid collection drainage catheter placement. 2. 5 mL fluid was sent for aerobic and anaerobic cultures. 3. The catheter will be managed by Dr. Aguiar. Chest X-Ray 05/29/24 16:33 IMPRESSION: Mild pulmonary edema. Segmental left and subsegmental right basilar atelectasis/consolidation. Possible small bilateral pleural effusions. Modified Barium Swallow 05/30/24 12:28 IMPRESSION: Oropharyngeal dysphagia with laryngeal penetration and silent aspiration. Please correlate with speech pathologist findings and specific feeding recommendations. Labs Labs: Laboratory Results - last 24 hr 06/01/24 05:21 WBC 9.3 RBC 3.17 L Hgb 9.2 L Hct 31.0 L MCV 97.8 MCH 29.0 MCHC 29.7 L RDW 16.7 H Plt Count 288 MPV 11.4 H Sodium 143 Potassium 3.6 Chloride 104 Carbon Dioxide 32 H Anion Gap 7 BUN 53 H Creatinine 1.41 H Estim Creat Clear Calc 56 Estimated GFR 49 L Glucose 109 Calcium 9.0 Total Bilirubin 0.4 AST 27 ALT 18 Alkaline Phosphatase 105 Total Protein 7.0 Albumin 3.3 L
[2024-06-01] MEDS: droNABinol (*CRX) 2.5 MG CAPSULE PO (17:19)
[2024-06-01 20:06] VITALS: BP 150/55; PULSE 71; RESP 20; TEMP 36.5; O2SAT 99
[2024-06-01 20:39] VITALS: PULSE 75; RESP 20; O2SAT 94
--- NOTE | 2024-06-01 23:24 | PC.NURSE ---
PT REQUESTING TURNING TO BE SET AT EVERY 3 MINUTES, STATES MY FAMILY TOLD DAY SHIFT TO PUT IT AT EVERY 30 MINUTES AND IM NOT COMFORTABLE
[2024-06-02 04:35] VITALS: BP 164/61; PULSE 76; RESP 20; TEMP 36.9; O2SAT 96
[2024-06-02 05:21] LABS: Hematocrit 28.8 % (42.0-52.0); Hemoglobin 8.5 g/dL (14.0-18.0); Mean Corpuscular HGB Conc 29.5 g/dl (32-36); Mean Corpuscular Hemoglobin 29.5 pg (26-34); Mean Platelet Volume 10.9 fl (7.4-10.4); Platelet Count Result 242 k/mm3 (150-375); Red Blood Count 2.88 M/mm3 (4.6-6.20); Red Cell Distribution Width 17.1 % (11.5-14.5); White Blood Count 7.6 K/mm3 (4.5-10.0)
[2024-06-02 05:31] LABS: Alanine Aminotransferase 16 U/L (6-50); Alkaline Phosphatase 102 U/L (38-126); Anion Gap 3 mmol/L (4-12); Aspartate Amino Transferase 31 U/L (17-59); Bilirubin,Total 0.5 mg/dL (0.2-1.3); Blood Urea Nitrogen 53 mg/dL (9-20); Calcium 8.6 mg/dL (8.4-10.2); Carbon Dioxide 35 mmol/L (22-30); Chloride 105 mmol/L (98-107); Estimated CRCL calculation 48 ml/min; Estimated Glomerular Filt Rate 41; Glucose 104 mg/dL (65-110); Potassium 3.7 mmol/L (3.4-5.0); Sodium 143 mmol/L (137-145)
[2024-06-02 06:04] LABS: Vancomycin Trough 19.2 ug/mL (10.0-20.0)
[2024-06-02] MEDS: VANCOMYCIN 1,000 MG/NS 250 ML 1,000 MG/250 ML BAG 250 MG IVPB (06:34)
--- NOTE | 2024-06-02 07:27 | P.PNIM_ITS ---
Progress Note: A&P Assessment and Plan (1) Sepsis: Code(s): A41.9 - Sepsis, unspecified organism Status: Resolved Assessment and Plan: sepsis resolved From psoas and prevertebral abscess Continue Vancomycin while waiting for [facility] transfer (2) Bacteremia: Code(s): R78.81 - Bacteremia Status: Acute Assessment and Plan: MRSA bacteremia from Psoas and prevertebral abscess Blood culture still positive on 05/24 repeat blood culture today Continue IV Vanc awaiting placement (3) Perforated abdominal viscus: Code(s): R19.8 - Other specified symptoms and signs involving the digestive system and abdomen Status: Acute Assessment and Plan: Septic shock from peritonitis with perforated gastric ulcer s/p laparotomy with repair repeat CT chest/AP nodular opacities in the right upper lobe and right middle lobe, peritoneal gas ant to stomach with possible small adjacent abscess or fistulous tract Surgery evaluated and noted not abscess is persistent finding not big enough for drainage Continue Peg Tube feeding for now. Gen surgery following (4) Pneumonia: Code(s): J18.9 - Pneumonia, unspecified organism Status: Acute Assessment and Plan: * Nodular opacities in the right upper lobe and right middle lobe, likely representing small infectious/inflammatory foci. 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 * Patient advanced to soft diet per General surgery recommendation * Continue to encourage po intake * Bolus tube feeding via G tube * add reglan and Marinol (6) Dysphagia: Code(s): R13.10 - Dysphagia, unspecified Status: Acute Assessment and Plan: * See plan above * continue tube feeding * Advance diet per Speech (7) Right wrist pain: Code(s): M25.531 - Pain in right wrist Status: Acute Assessment and Plan: * Patient started c/o of right wrist pain on 05/23 * Likely related to repeated blood culture attempts * XR hand RT 2V: No acute fracture. 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 Multiple subarticular lucencies at the wrist and carpus * Physical exam benign (8) Acute kidney injury superimposed on stage 3b chronic kidney disease: Code(s): N17.9 - Acute kidney failure, unspecified; N18.32 - Chronic kidney disease, stage 3b Status: Acute Assessment and Plan: resolved Creatinine 1.48, which is baseline (9) Pleural effusion: Code(s): J90 - Pleural effusion, not elsewhere classified Status: Acute Assessment and Plan: * Seen on CT * Chest x-ray dated compare * Likely due to 3rd spacing * Stable (10) Anemia: Code(s): D64.9 - Anemia, unspecified Status: Acute Assessment and Plan: Iron deficiency anemia on acute loss Stable * Trend CBC. * transfuse if hgb <7.0, or symptomatic * Iron replacement * hb 8.6 (11) HTN (hypertension): Code(s): I10 - Essential (primary) hypertension Status: Acute Assessment and Plan: Controlled * Continue Clonidine patch and Hydralazine PRN. * Trend BP (12) Generalized weakness: Code(s): R53.1 - Weakness Status: Acute Assessment and Plan: * PT/OT-maxi move use for transfer * Patient will likely need placement * No changes to current plan (13) Hypokalemia: Code(s): E87.6 - Hypokalemia Status: Acute Assessment and Plan: Improved * Trend labs * Replace as indicated (14) Hypernatremia: Code(s): E87.0 - Hyperosmolality and hypernatremia Status: Acute Assessment and Plan: Resolved Daily BMP Plan Possible Discitis vs osteomyelitis MRI spine showed increased disc signal at L1-2 through l4-5 also increase T1 signal with adjacent complex loculated right psoas muscle fluid collection, hematoma vs abscess Continue abx as above and abscess culture positive for Staph aureus Awaiting transfer to [facility] Psoas muscle and prevertebral cervical abscess MRI reviewed ELSA drain to psoas abscess and culture positive for Staph Aureus, sensitivity pending continue abscess drainage Blood culture still positive as of 05/27 repeat culture continue Vancomycin MRSA bacteremia from the above continue above care FTT/protein energy malnutrition patient on tube feeding since patient is more awake today and following commands Follow speech therapy continue monitoring DVT prophylaxis on Sq Lovenox Awaiting transfer to [facility] Subjective Date/time seen: 06/02/24 07:27 Interval history: As mentioned previously patient was denied transfer at [facility]. Recommended to transfer to [place] due to complexity of case .Doing well. Denies any sx. Review of Systems 2 Review of Systems: 12 systems were reviewed and are negativ e except for as per HPI. All systems reviewed & are unremarkable except as noted in HPI and below ROS unobtainable: Yes unobtainable due to endotracheal tube and unobtainable due to medical condition Exam Narrative: General: Comfortable at bedside HEENT: normocephalic, atraumatic. Mucous membranes moist. EOMI, PERRLA, bilateral sclera anicteric, no conjunctival injection. Respiratory: clear to auscultation bilaterally. No rales/rhonic/wheezes. Cardiovascular: Regular rate and rhythm, normal S1-S2 upon auscultation. No murmurs, rubs, or clicks. Capillary refill less than 3 second. Abdomen: Soft, round, no pulsatile masses, nondistended and nontender. No rebound, no guarding. Bowel sounds present to all four quadrants. No high pitch or tinkling sounds. Extremities: 2 + edema to both LE. No cyanosis, clubbing present. Pulses are palpable 2/2. Active ROM to all four extremities. Neuro: Alert and orientated x 4. PERRLA. Cranial nerves 2-12 intact without focal deficit. Skin: Warm, dry, and intact, without rash, erythema, or lesion. Psych: pleasant, cooperative, normal speech, normal affect, no hallucinations, no dysarthria Skin: G-tube site clean with G-tube in place and clamped. Gauze dressing in place in the right upper quadrant and left upper quadrant from previous ELSA drains, gauze dressing dry and intact. Const: General: comfortable, no acute distress and uncomfortable Other: Acutely ill-appearing, obese HENMT: Other: Mucous membranes are dry, head is normocephalic atraumatic, few missing teeth, bridge in the lower jaw Eyes: Other: Pupils are equal and reactive, no scleral icterus Neck: Other: No JVD, trachea midline Resp: Effort & Inspection: normal respiratory effort Auscultation: clear to auscultation bilaterally and diminished lung sounds Other: Cardio: Rate: regular rate Rhythm: regular rhythm Other: Telemetry SR 85. GI: Auscultation: normal bowel sounds Other: Gastrostomy tube in place with dry gauze dressing and skin around the G-tube without erythema or drainage. Incision dry with steri strips intact, no erythema. Slightly distended. : Other: Bowman catheter in place was a small amount of turbid yellow urine Urinary Catheter: Urinary Catheter: patent and draining Skin: Other: Generally cold to touch, 2nd cap refill, fingers and toes are cyanotic Neuro: Speech: normal speech Other: Pupils are reactive, equal Extrem: General: pedal edema bilaterally 2+ Other: 2+PP bilateral feet are warm. Psych: Mental Status: mental status grossly normal Affect: normal affect Other: Unable to assess due to patient condition Objective Data Vital Signs Vital Signs: Vital Signs - 24 hr 06/01/24 08:00 06/01/24 14:00 06/01/24 20:06 Temperature 98.6 F 97.7 F Pulse Rate 75 71 Respiratory Rate 20 20 Blood Pressure 131/54 L 150/55 H Pulse Oximetry 96 99 Oxygen Delivery Room Air Fraction of Inspired Oxygen 06/01/24 20:39 06/02/24 04:35 Temperature 98.5 F Pulse Rate 75 76 Respiratory Rate 20 20 Blood Pressure 164/61 H Pulse Oximetry 94 96 Oxygen Delivery Room Air Fraction of Inspired Oxygen 21 Intake/Output Intake/Output: Intake & Output 05/30/24 05/31/24 06/01/24 06/02/24 23:59 23:59 23:59 23:59 Intake Total 1590 1570 2100 880 Output Total 1455 1250 1000 550 Balance 658 255 2746 330 Meds/Results Medications: Active Medications Generic Name Dose Route Start Last Admin Trade Name Freq PRN Reason Stop Dose Admin Acetaminophen 650 mg 04/26/24 22:19 04/26/24 22:57 Acetaminophen 650 Mg Suppository RECTAL 650 mg Q6H PRN Administration Mild Pain (1-3) or Fever Acetaminophen 650 mg 05/05/24 10:27 06/01/24 22:38 Acetaminophen Elixir 325 Mg/10.15 Ml Udc PO 650 mg Q6H PRN Administration Mild Pain (1-3) or Fever Alteplase, Recombinant 2 mg 05/22/24 21:26 05/22/24 21:57 Alteplase 2 Mg Vial (Cathflo) IV PUSH 2 mg ONCE PRN Administration Line Occlusion Amlodipine Besylate 5 mg 05/27/24 12:15 06/01/24 10:41 Amlodipine Besylate 5 Mg Tablet PO 5 mg DAILY ROSY Administration Artificial Tears 1 drop 04/27/24 08:37 05/29/24 15:35 Artificial Tears Ophth Soln 15 Ml Bottle EACH EYE 1 drop QID PRN Administration Dry Eye(s) Atorvastatin Calcium 20 mg 04/30/24 09:00 Atorvastatin 20 Mg Tablet BY MOUTH DAILY [facility] Benzocaine 1 lozenge 05/15/24 15:35 05/21/24 12:14 Benzocaine/Menthol (*Bkc) 18 Ea Lozenge PO 1 lozenge PRN PRN Administration Sore Throat Calcium Carbonate 500 mg 05/19/24 08:00 06/01/24 10:40 Calcium/Vitamin D 500 Mg/5 Mcg (200 I.U.) Tablet PO 500 mg DAILY@0800 ROSY Administration Dextrose 12.5 gm 05/23/24 21:48 Dextrose 50% 25 Gm/50 Ml Syringe IV PUSH PRN PRN Hypoglycemia Protocol Dronabinol 2.5 mg 05/17/24 16:30 06/01/24 17:19 Dronabinol (*Crx) 2.5 Mg Capsule PO 2.5 mg DAILY@1630 ROSY Administration Enoxaparin Sodium 40 mg 05/25/24 09:00 05/26/24 09:47 Enoxaparin 40 Mg/0.4 Ml Syringe SUB-Q 40 mg DAILY ROSY Administration Epoetin Olu-epbx 10,000 units 05/14/24 11:05 05/31/24 08:52 Epoetin Olu-Epbx 10,000 Units/Ml Vial SUB-Q 10,000 units TUTHSA@09 ROSY Administration Glucagon 1 mg 05/23/24 21:48 Glucagon For Inj 1 Mg Vial IM PRN PRN Hypoglycemia Protocol Glucose 15 gm 05/23/24 21:48 Glucose Oral Gel 15 Gm Of Glucse In 37.5 Gm Tube PO PRN PRN Hypoglycemia Protocol Guaifenesin/Dextromethorphan 10 ml 05/15/24 10:07 05/22/24 01:23 Guaifenesin/Dextromethorphan 10 Ml Udc PO 10 ml Q4H PRN Administration Cough Hydralazine HCl 10 mg 04/25/24 08:00 05/31/24 13:17 Hydralazine Hcl 20 Mg/Ml Vial IV PUSH 10 mg Q4H PRN Administration Blood Pressure - High Vancomycin HCl 1,000 mg in 250 mls @ 250 mls/hr 05/25/24 06:00 06/02/24 06:34 Vancomycin 1,000 Mg/Ns 250 Ml IVPB 250 mls/hr Q24H ROSY Administration Ipratropium Snyder 0.5 mg 05/04/24 09:32 05/17/24 10:11 Ipratropium Br 0.02% Inh Soln 0.5 Mg/2.5 Ml Vial INHALATION 0.5 mg Q6HRT PRN Administration Shortness Of Breath Levalbuterol HCl 0.63 mg 05/04/24 09:32 05/17/24 10:11 Levalbuterol Neb 1.25 Mg/3 Ml INHALATION 0.63 mg Q6HRT PRN Administration Shortness Of Breath Lidocaine 1 patch 05/18/24 09:00 06/01/24 08:40 Lidocaine 5% Patch TRANSDERM 1 patch DAILY ROSY Administration Lisinopril 40 mg 05/20/24 15:05 06/01/24 10:41 Lisinopril 20 Mg Tablet BY MOUTH 40 mg DAILY ROSY Administration Lorazepam 0.5 mg 05/16/24 13:48 05/22/24 09:54 Lorazepam (*Crx) 0.5 Mg Tablet PO 0.5 mg Q6H PRN Administration Anxiety Miscellaneous Information 0 each 05/30/24 00:01 Clonidine Patch Order Will Auto Stop Before The 05/31 Dose. Please Renew Order If This Is XX 06/29/24 00:00 CLARIFY ROSY Ondansetron HCl 4 mg 05/13/24 11:22 05/21/24 05:44 Ondansetron Inj 4 Mg/2 Ml Vial IV PUSH 4 mg Q6H PRN Administration Nausea And Vomiting Pantoprazole Sodium 40 mg 05/23/24 09:00 06/01/24 08:40 Pantoprazole 40 Mg Tablet PO 40 mg QAM ROSY Administration Sodium Chloride 10 ml 05/04/24 14:15 Central Line Flush IV PUSH PRN PRN with TPN bag changes Sodium Chloride 20 ml 05/04/24 14:15 05/25/24 04:29 Central Line Flush IV PUSH 20 ml PRN PRN Administration after blood draws Radiology Results: ITS Impressions Chest/Abdomen/Pelvis CTA 04/22/24 18:10 IMPRESSION: Perforated viscus with a large amount of free air and fluid, with mural thickening in the distal stomach and multiple punctate foci of extraluminal air in this area for which site of perforation is suspected. Renal Ultrasound 04/24/24 11:58 IMPRESSION: Simple cyst in the left kidney upper pole. Other appearances are unremarkable. Lower Extremity CTA 05/02/24 16:36 IMPRESSION: 1. Scattered atherosclerotic plaque in the arteries of the left lower limb as detailed above without a discrete hemodynamic significant stenosis. Runoff below the ankle in the left posterior tibial artery this supplies the foot. Atretic distal peroneal and anterior tibial arteries with intraluminal contrast becoming indiscernible at the level of the ankle and with no appreciable contrast in the dorsalis pedis artery. Upper GI Series 05/09/24 09:31 IMPRESSION: 1. Ulcer of the gastric antrum with contained extraluminal contrast similar to 04/28/2024. The extraluminal contrast distribution is worse than typically seen after Clarence patch repair. Abdomen CT 05/09/24 15:27 IMPRESSION: Redemonstration of a tract extending from the posterior superior margin of the antrum of the stomach only partially filled with oral contrast, perhaps demonstrating early healing. Abdomen/Pelvis CT 05/17/24 09:03 Impression: Persistent wall thickening of the gastric antrum/duodenum with surrounding haziness, compatible postoperative change. There is persistent irregular tract with small amount of fluid and external air extending from the gastric antrum superiorly/anteriorly, which could reflect abscess or persistent contained perforation. No extraluminal contrast seen, and no oral contrast seen within this collection. Intramuscular hematoma of the right iliopsoas and psoas major muscles, with additional irregular hematoma extending to the posterior right retroperitoneum. Bilateral fat-containing inguinal hernias. Small bilateral pleural effusions. Chest/Abdomen/Pelvis CT 05/22/24 14:37 IMPRESSION: Nodular opacities in the right upper lobe and right middle lobe, likely representing small infectious/inflammatory foci. Segmental bibasilar atelectasis/consolidation. Small bilateral simple pleural effusions. Cardiomegaly with trace pericardial fluid. Peritoneal gas anterior to the stomach secondary to antral perforation, with possible small adjacent abscess or fistulous tract. Nonfluid density peritoneal and psoas collections, may represent complex ascites from bowel content, blood, or phlegmon, or combination thereof. Significant body wall edema. Hand X-Ray 05/23/24 13:08 IMPRESSION: 1. No acute fracture. 2. Likely chronic malalignment at the wrist and carpus including 1 cm ulnar minus variance and disruption of the proximal carpal row which is most likely sequela of old trauma. 3. 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 4. Multiple subarticular lucencies at the wrist and carpus most likely degenerative subchondral cyst although differential includes chronic erosion such as in the setting of gout. Cervical Spine MRI 05/26/24 17:21 IMPRESSION: 1. Prevertebral/retropharyngeal soft tissue swelling anterior to the mid to upper cervical spine with peripheral enhancing fluid collection potentially a s mall abscess just right of midline at the level of the base of the dens. Findings were discussed with Dashawn Stevens, the nurse caring for the patient, at 6:18 PM. 2. Severe cervical spondylosis with no evident discitis or osteomyelitis. Thoracic Spine MRI 05/26/24 17:45 IMPRESSION: 1. Moderate thoracic spondylosis with no evident discitis or ostomy myelitis. 2. Small bilateral pleural effusions with dependent atelectasis versus pneumonia in the bilateral lower lobes. Lumbar Spine MRI 05/26/24 17:53 IMPRESSION: 1. Severe lumbar spondylosis with prominent increased disc signal at L1-L2 through L4-L5. Increased fluid signal is likely artifact of feculent phenomena which is seen at the same levels on locations on the prior CT although could not absent exclude discitis given the presence of a nearby complex loculated right psoas muscle fluid collection with increased T1 signal suggesting this is due to hematoma although this could potentially be secondarily infected. Bone marrow signal remains normal with no measurable enhancement along the endplates but no appreciable edema to more specifically elevated concern for discitis or osteomyelitis. Would consider percutaneous abscess drainage with Gram stain and culture of the right psoas fluid collection. Findings were discussed with Dashawn Stevens, the nurse caring for the patient, at 6:[address] 05/27/24 17:21 IMPRESSION: 1. Successful CT-guided right psoas muscle fluid collection drainage catheter placement. 2. 5 mL fluid was sent for aerobic and anaerobic cultures. 3. The catheter will be managed by Dr. Aguiar. Chest X-Ray 05/29/24 16:33 IMPRESSION: Mild pulmonary edema. Segmental left and subsegmental right basilar atelectasis/consolidation. Possible small bilateral pleural effusions. Modified Barium Swallow 05/30/24 12:28 IMPRESSION: Oropharyngeal dysphagia with laryngeal penetration and silent aspiration. Please correlate with speech pathologist findings and specific feeding recommendations. Labs Labs: Laboratory Results - last 24 hr 06/02/24 05:15 WBC 7.6 RBC 2.88 L Hgb 8.5 L Hct 28.8 L MCV 100.0 MCH 29.5 MCHC 29.5 L RDW 17.1 H Plt Count 242 MPV 10.9 H Sodium 143 Potassium 3.7 Chloride 105 Carbon Dioxide 35 H Anion Gap 3 L BUN 53 H Creatinine 1.63 H Estim Creat Clear Calc 48 Estimated GFR 41 L Glucose 104 Calcium 8.6 Total Bilirubin 0.5 AST 31 ALT 16 Alkaline Phosphatase 102 Total Protein 7.0 Albumin 3.0 L Vancomycin Trough 19.2 Quality VTE Prophylaxis VTE prophylaxis: mechanical ordered and pharmacologic ordered Hospitalist [facility] Advance Care Plan I have confirmed that the patient's Advanced Care Plan is present, code status is documented, or surrogate decision maker is listed in patient medical record.: Yes Medication Reconciliation I have utilized all available resources to obtain, update and review the patients current medications (includes all prescriptions, OTC, herbals, cannabis, and nutritional supplements).: Yes
--- NOTE | 2024-06-02 08:52 | PCOTNOTE ---
The patient treatment was not able to be completed. Patient working with [employer]. Will plan to continue treatment per plan of care.
[2024-06-02] MEDS: LIDOCAINE 5% PATCH 1 PATCH TRANSDERM (09:45)
[2024-06-02] MEDS: CALCIUM/VITAMIN D 500 MG/5 MCG (200 I.U.) TABLET PO (09:46)
[2024-06-02] MEDS: lisinopriL 20 MG TABLET 40 MG BY MOUTH (09:46)
[2024-06-02] MEDS: amLODIPine BESYLATE 5 MG TABLET PO (09:46)
[2024-06-02] MEDS: EPOETIN ALFA-EPBX 10,000 UNITS/ML VIAL 10000 UNITS SUB-Q (10:02)
--- NOTE | 2024-06-02 10:50 | PM.PNGS ---
Progress Note: A&P Assessment and Plan (1) Perforated gastric ulcer: Onset Date: 04/2024 Qualifiers: Gastric ulcer chronicity: acute Qualified Code(s): K25.1 - Acute gastric ulcer with perforation Code(s): K25.5 - Chronic or unspecified gastric ulcer with perforation Status: Acute Assessment and Plan: Tolerating G-tube feedings. No acute surgical issues. (2) Psoas abscess, right: Code(s): K68.12 - Psoas muscle abscess Status: Acute Assessment and Plan: Status post percutaneous drain placed 05/27/2024. Drain appears mostly to be old blood. Cultures growing MRSA (3) MRSA bacteremia: Code(s): R78.81 - Bacteremia; B95.62 - Methicillin resistant Staphylococcus aureus infection as the cause of diseases classified elsewhere Status: Acute Assessment and Plan: Repeat cultures on 05/28 and 05/29 negative so far. Multiple potential sources. Accepted for transfer to [facility], but waiting for bed placement. Hospitalist attempting transfer to other tertiary care facilities. (4) Abnormal MRI, neck: Code(s): R93.89 - Abnormal findings on diagnostic imaging of other specified body structures Status: Acute (5) Stage 3b chronic kidney disease: Code(s): N18.32 - Chronic kidney disease, stage 3b Status: Chronic (6) Malnutrition following gastrointestinal surgery: Code(s): K91.2 - Postsurgical malabsorption, not elsewhere classified Status: Chronic (7) Oral candidiasis: Code(s): B37.0 - Candidal stomatitis Status: Acute Assessment and Plan: He appears to have thrush and this is his main complaint. Will start nystatin swabs. He is limited due to his inability to swallow, so will try to avoid the clotrimazole troches. Will have them swab the nystatin and he can spit but not swallow to see if this helps. Plan I have discussed the patient's case and plan of care with Dr. Moreno. Subjective Subjective Date/Time Seen: 06/02/24 10:50 Patient reports: no new complaints Interval history: No acute changes. Awaiting bed placement. Accepted at [facility] for transfer. patient's main complaint is his tongue. They have been doing a lot of mouth care due to his severe dry mouth and not having anything orally. Exam Const: General: comfortable and no acute distress Orientation/consciousness: patient oriented x3 HENMT: Other: Tongue with extensive white patches across the entire surface of the tongue consistent with oral candidiasis GI: Inspection: non-distended GI Palp: Yes Soft to palpation, No Tenderness to palpation present (GI) and No Guarding due to palpation present (GI) Auscultation: normal bowel sounds Other: G-tube in place and clamped Objective Data Vital Signs Vital Signs: Vital Signs - 24 hr 06/01/24 14:00 06/01/24 20:06 06/01/24 20:39 Temperature 98.6 F 97.7 F Pulse Rate 75 71 75 Respiratory Rate 20 20 20 Blood Pressure 131/54 L 150/55 H Pulse Oximetry 96 99 94 Oxygen Delivery Room Air Fraction of Inspired Oxygen 21 06/02/24 04:35 Temperature 98.5 F Pulse Rate 76 Respiratory Rate 20 Blood Pressure 164/61 H Pulse Oximetry 96 Oxygen Delivery Fraction of Inspired Oxygen Intake/Output Intake/Output: Intake & Output 05/30/24 05/31/24 06/01/24 06/02/24 23:59 23:59 23:59 23:59 Intake Total 1590 1570 2100 1130 Output Total 1455 1250 1000 550 Balance 492 375 3127 580 Meds/Results Medications: Active Medications Generic Name Dose Route Start Last Admin Trade Name Freq PRN Reason Stop Dose Admin Acetaminophen 650 mg 04/26/24 22:19 04/26/24 22:57 Acetaminophen 650 Mg Suppository RECTAL 650 mg Q6H PRN Administration Mild Pain (1-3) or Fever Acetaminophen 650 mg 05/05/24 10:27 06/01/24 22:38 Acetaminophen Elixir 325 Mg/10.15 Ml Udc PO 650 mg Q6H PRN Administration Mild Pain (1-3) or Fever Alteplase, Recombinant 2 mg 05/22/24 21:26 05/22/24 21:57 Alteplase 2 Mg Vial (Cathflo) IV PUSH 2 mg ONCE PRN Administration Line Occlusion Amlodipine Besylate 5 mg 05/27/24 12:15 06/02/24 09:46 Amlodipine Besylate 5 Mg Tablet PO 5 mg DAILY ROSY Administration Artificial Tears 1 drop 04/27/24 08:37 05/29/24 15:35 Artificial Tears Ophth Soln 15 Ml Bottle EACH EYE 1 drop QID PRN Administration Dry Eye(s) Atorvastatin Calcium 20 mg 04/30/24 09:00 Atorvastatin 20 Mg Tablet BY MOUTH DAILY [facility] Benzocaine 1 lozenge 05/15/24 15:35 05/21/24 12:14 Benzocaine/Menthol (*Bkc) 18 Ea Lozenge PO 1 lozenge PRN PRN Administration Sore Throat Calcium Carbonate 500 mg 05/19/24 08:00 06/02/24 09:46 Calcium/Vitamin D 500 Mg/5 Mcg (200 I.U.) Tablet PO 500 mg DAILY@0800 [facility] Administration Dextrose 12.5 gm 05/23/24 21:48 Dextrose 50% 25 Gm/50 Ml Syringe IV PUSH PRN PRN Hypoglycemia Protocol Dronabinol 2.5 mg 05/17/24 16:30 06/02/24 09:05 Dronabinol (*Crx) 2.5 Mg Capsule PO Not Given DAILY@1630 [facility] Enoxaparin Sodium 40 mg 05/25/24 09:00 05/26/24 09:47 Enoxaparin 40 Mg/0.4 Ml Syringe SUB-Q 40 mg DAILY [facility] Administration Epoetin Olu-epbx 10,000 units 05/14/24 11:05 06/02/24 10:02 Epoetin Olu-Epbx 10,000 Units/Ml Vial SUB-Q 10,000 units TUTHSA@09 [facility] Administration Glucagon 1 mg 05/23/24 21:48 Glucagon For Inj 1 Mg Vial IM PRN PRN Hypoglycemia Protocol Glucose 15 gm 05/23/24 21:48 Glucose Oral Gel 15 Gm Of Glucse In 37.5 Gm Tube PO PRN PRN Hypoglycemia Protocol Guaifenesin/Dextromethorphan 10 ml 05/15/24 10:07 05/22/24 01:23 Guaifenesin/Dextromethorphan 10 Ml Udc PO 10 ml Q4H PRN Administration Cough Hydralazine HCl 10 mg 04/25/24 08:00 05/31/24 13:17 Hydralazine Hcl 20 Mg/Ml Vial IV PUSH 10 mg Q4H PRN Administration Blood Pressure - High Vancomycin HCl 1,000 mg in 250 mls @ 250 mls/hr 05/25/24 06:00 06/02/24 07:34 Vancomycin 1,000 Mg/Ns 250 Ml IVPB Infused Q24H [facility] Infusion Ipratropium Zirconia 0.5 mg 05/04/24 09:32 05/17/24 10:11 Ipratropium Br 0.02% Inh Soln 0.5 Mg/2.5 Ml Vial INHALATION 0.5 mg Q6HRT PRN Administration Shortness Of Breath Levalbuterol HCl 0.63 mg 05/04/24 09:32 05/17/24 10:11 Levalbuterol Neb 1.25 Mg/3 Ml INHALATION 0.63 mg Q6HRT PRN Administration Shortness Of Breath Lidocaine 1 patch 05/18/24 09:00 06/02/24 09:45 Lidocaine 5% Patch TRANSDERM 1 patch DAILY ROSY Administration Lisinopril 40 mg 05/20/24 15:05 06/02/24 09:46 Lisinopril 20 Mg Tablet BY MOUTH 40 mg DAILY ROSY Administration Lorazepam 0.5 mg 05/16/24 13:48 05/22/24 09:54 Lorazepam (*Crx) 0.5 Mg Tablet PO 0.5 mg Q6H PRN Administration Anxiety Miscellaneous Information 0 each 05/30/24 00:01 06/02/24 08:42 Clonidine Patch Order Will Auto Stop Before The 05/31 Dose. Please Renew Order If This Is XX 06/29/24 00:00 Not Given CLARIFY ROSY Ondansetron HCl 4 mg 05/13/24 11:22 05/21/24 05:44 Ondansetron Inj 4 Mg/2 Ml Vial IV PUSH 4 mg Q6H PRN Administration Nausea And Vomiting Pantoprazole Sodium 40 mg 05/23/24 09:00 06/02/24 09:05 Pantoprazole 40 Mg Tablet PO Not Given QAM ROSY Sodium Chloride 10 ml 05/04/24 14:15 Central Line Flush IV PUSH PRN PRN with TPN bag changes Sodium Chloride 20 ml 05/04/24 14:15 05/25/24 04:29 Central Line Flush IV PUSH 20 ml PRN PRN Administration after blood draws Radiology Results: ITS Impressions Chest/Abdomen/Pelvis CTA 04/22/24 18:10 IMPRESSION: Perforated viscus with a large amount of free air and fluid, with mural thickening in the distal stomach and multiple punctate foci of extraluminal air in this area for which site of perforation is suspected. Renal Ultrasound 04/24/24 11:58 IMPRESSION: Simple cyst in the left kidney upper pole. Other appearances are unremarkable. Lower Extremity CTA 05/02/24 16:36 IMPRESSION: 1. Scattered atherosclerotic plaque in the arteries of the left lower limb as detailed above without a discrete hemodynamic significant stenosis. Runoff below the ankle in the left posterior tibial artery this supplies the foot. Atretic distal peroneal and anterior tibial arteries with intraluminal contrast becoming indiscernible at the level of the ankle and with no appreciable contrast in the dorsalis pedis artery. Upper GI Series 05/09/24 09:31 IMPRESSION: 1. Ulcer of the gastric antrum with contained extraluminal contrast similar to 04/28/2024. The extraluminal contrast distribution is worse than typically seen after [place] patch repair. Abdomen CT 05/09/24 15:27 IMPRESSION: Redemonstration of a tract extending from the posterior superior margin of the antrum of the stomach only partially filled with oral contrast, perhaps demonstrating early healing. Abdomen/Pelvis CT 05/17/24 09:03 Impression: Persistent wall thickening of the gastric antrum/duodenum with surrounding haziness, compatible postoperative change. There is persistent irregular tract with small amount of fluid and external air extending from the gastric antrum superiorly/anteriorly, which could reflect abscess or persistent contained perforation. No extraluminal contrast seen, and no oral contrast seen within this collection. Intramuscular hematoma of the right iliopsoas and psoas major muscles, with additional irregular hematoma extending to the posterior right retroperitoneum. Bilateral fat-containing inguinal hernias. Small bilateral pleural effusions. Chest/Abdomen/Pelvis CT 05/22/24 14:37 IMPRESSION: Nodular opacities in the right upper lobe and right middle lobe, likely representing small infectious/inflammatory foci. Segmental bibasilar atelectasis/consolidation. Small bilateral simple pleural effusions. Cardiomegaly with trace pericardial fluid. Peritoneal gas anterior to the stomach secondary to antral perforation, with possible small adjacent abscess or fistulous tract. Nonfluid density peritoneal and psoas collections, may represent complex ascites from bowel content, blood, or phlegmon, or combination thereof. Significant body wall edema. Hand X-Ray 05/23/24 13:08 IMPRESSION: 1. No acute fracture. 2. Likely chronic malalignment at the wrist and carpus including 1 cm ulnar minus variance and disruption of the proximal carpal row which is most likely sequela of old trauma. 3. 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 4. Multiple subarticular lucencies at the wrist and carpus most likely degenerative subchondral cyst although differential includes chronic erosion such as in the setting of gout. Cervical Spine MRI 05/26/24 17:21 IMPRESSION: 1. Prevertebral/retropharyngeal soft tissue swelling anterior to the mid to upper cervical spine with peripheral enhancing fluid collection potentially a small abscess just right of midline at the level of the base of the dens. Findings were discussed with Dashawn Stevens, the nurse caring for the patient, at 6:18 PM. 2. Severe cervical spondylosis with no evident discitis or osteomyelitis. Thoracic Spine MRI 05/26/24 17:45 IMPRESSION: 1. Moderate thoracic spondylosis with no evident discitis or ostomy myelitis. 2. Small bilateral pleural effusions with dependent atelectasis versus pneumonia in the bilateral lower lobes. Lumbar Spine MRI 05/26/24 17:53 IMPRESSION: 1. Severe lumbar spondylosis with prominent increased disc signal at L1-L2 through L4-L5. Increased fluid signal is likely artifact of feculent phenomena which is seen at the same levels on locations on the prior CT although could not absent exclude discitis given the presence of a nearby complex loculated right psoas muscle fluid collection with increased T1 signal suggesting this is due to hematoma although this could potentially be secondarily infected. Bone marrow signal remains normal with no measurable enhancement along the endplates but no appreciable edema to more specifically elevated concern for discitis or osteomyelitis. Would consider percutaneous abscess drainage with Gram stain and culture of the right psoas fluid collection. Findings were discussed with Dashawn Stevens, the nurse caring for the patient, at 6:[address] 05/27/24 17:21 IMPRESSION: 1. Successful CT-guided right psoas muscle fluid collection drainage catheter placement. 2. 5 mL fluid was sent for aerobic and anaerobic cultures. 3. The catheter will be managed by Dr. Aguiar. Chest X-Ray 05/29/24 16:33 IMPRESSION: Mild pulmonary edema. Segmental left and subsegmental right basilar atelectasis/consolidation. Possible small bilateral pleural effusions. Modified Barium Swallow 05/30/24 12:28 IMPRESSION: Oropharyngeal dysphagia with laryngeal penetration and silent aspiration. Please correlate with speech pathologist findings and specific feeding recommendations. Labs Labs: Laboratory Results - last 24 hr 06/02/24 05:15 WBC 7.6 RBC 2.88 L Hgb 8.5 L Hct 28.8 L MCV 100.0 MCH 29.5 MCHC 29.5 L RDW 17.1 H Plt Count 242 MPV 10.9 H Sodium 143 Potassium 3.7 Chloride 105 Carbon Dioxide 35 H Anion Gap 3 L BUN 53 H Creatinine 1.63 H Estim Creat Clear Calc 48 Estimated GFR 41 L Glucose 104 Calcium 8.6 Total Bilirubin 0.5 AST 31 ALT 16 Alkaline Phosphatase 102 Total Protein 7.0 Albumin 3.0 L Vancomycin Trough 19.2
[2024-06-02] MEDS: NYSTATIN 100,000 UNITS/ML SUSP 5 ML ORAL.SUSP PO ×3 (12:39→20:27)
[2024-06-02 14:00] VITALS: BP 151/59; PULSE 81; RESP 18; TEMP 37; O2SAT 95
[2024-06-02 19:35] VITALS: BP 174/58; PULSE 74; RESP 20; TEMP 36.8; O2SAT 97
[2024-06-02] MEDS: ACETAMINOPHEN ELIXIR 325 MG/10.15 ML UDC 650 MG PO (23:27)
[2024-06-03] MEDS: LORazepam (*CRX) 0.5 MG TABLET PO ×2 (02:52→21:26)
[2024-06-03 04:46] VITALS: BP 156/64; PULSE 70; RESP 20; TEMP 36.5; O2SAT 97
[2024-06-03] MEDS: VANCOMYCIN 1,000 MG/NS 250 ML 1,000 MG/250 ML BAG 250 MG IVPB (05:31)
--- NOTE | 2024-06-03 07:25 | P.PNIM_ITS ---
Progress Note: A&P Assessment and Plan (1) Sepsis: Code(s): A41.9 - Sepsis, unspecified organism Status: Resolved Assessment and Plan: sepsis resolved From psoas and prevertebral abscess Continue Vancomycin while waiting for [facility] transfer (2) Bacteremia: Code(s): R78.81 - Bacteremia Status: Acute Assessment and Plan: MRSA bacteremia from Psoas and prevertebral abscess Blood culture still positive on 05/24 repeat blood culture today Continue IV Vanc awaiting placement (3) Perforated abdominal viscus: Code(s): R19.8 - Other specified symptoms and signs involving the digestive system and abdomen Status: Acute Assessment and Plan: Septic shock from peritonitis with perforated gastric ulcer s/p laparotomy with repair repeat CT chest/AP nodular opacities in the right upper lobe and right middle lobe, peritoneal gas ant to stomach with possible small adjacent abscess or fistulous tract Surgery evaluated and noted not abscess is persistent finding not big enough for drainage Continue Peg Tube feeding for now. Gen surgery following (4) Pneumonia: Code(s): J18.9 - Pneumonia, unspecified organism Status: Acute Assessment and Plan: * Nodular opacities in the right upper lobe and right middle lobe, likely representing small infectious/inflammatory foci. 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 * Patient advanced to soft diet per General surgery recommendation * Continue to encourage po intake * Bolus tube feeding via G tube * add reglan and Marinol (6) Dysphagia: Code(s): R13.10 - Dysphagia, unspecified Status: Acute Assessment and Plan: * See plan above * continue tube feeding * Advance diet per Speech (7) Right wrist pain: Code(s): M25.531 - Pain in right wrist Status: Acute Assessment and Plan: * Patient started c/o of right wrist pain on 05/23 * Likely related to repeated blood culture attempts * XR hand RT 2V: No acute fracture. 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 Multiple subarticular lucencies at the wrist and carpus * Physical exam benign (8) Acute kidney injury superimposed on stage 3b chronic kidney disease: Code(s): N17.9 - Acute kidney failure, unspecified; N18.32 - Chronic kidney disease, stage 3b Status: Acute Assessment and Plan: resolved Creatinine 1.48, which is baseline (9) Pleural effusion: Code(s): J90 - Pleural effusion, not elsewhere classified Status: Acute Assessment and Plan: * Seen on CT * Chest x-ray dated compare * Likely due to 3rd spacing * Stable (10) Anemia: Code(s): D64.9 - Anemia, unspecified Status: Acute Assessment and Plan: Iron deficiency anemia on acute loss Stable * Trend CBC. * transfuse if hgb <7.0, or symptomatic * Iron replacement * hb 8.6 (11) HTN (hypertension): Code(s): I10 - Essential (primary) hypertension Status: Acute Assessment and Plan: Controlled * Continue Clonidine patch and Hydralazine PRN. * Trend BP (12) Generalized weakness: Code(s): R53.1 - Weakness Status: Acute Assessment and Plan: * PT/OT-maxi move use for transfer * Patient will likely need placement * No changes to current plan (13) Hypokalemia: Code(s): E87.6 - Hypokalemia Status: Acute Assessment and Plan: Improved * Trend labs * Replace as indicated (14) Hypernatremia: Code(s): E87.0 - Hyperosmolality and hypernatremia Status: Acute Assessment and Plan: Resolved Daily BMP Plan Possible Discitis vs osteomyelitis MRI spine showed increased disc signal at L1-2 through l4-5 also increase T1 signal with adjacent complex loculated right psoas muscle fluid collection, hematoma vs abscess Continue abx as above and abscess culture positive for Staph aureus Awaiting transfer to [facility] Psoas muscle and prevertebral cervical abscess MRI reviewed ELSA drain to psoas abscess and culture positive for Staph Aureus, sensitivity pending continue abscess drainage Blood culture still positive as of 05/27 repeat culture continue Vancomycin MRSA bacteremia from the above continue above care FTT/protein energy malnutrition patient on tube feeding since patient is more awake today and following commands Follow speech therapy continue monitoring DVT prophylaxis on Sq Lovenox Awaiting transfer to [facility] Subjective Date/time seen: 06/03/24 07:25 Interval history: Brief hospital course: Post laparotomy with repair of large perforated gastric ulcer with omental Clarence patch.Gastrotomy tube was placed in OR during surgery since anaesthesia was not able to place NG tube. During the course of hospitalization patient had evidence of cold leg and underwent CTA on 05/02/24 and no evidence of sever occlusion and started on AC.Patient BC shows MRSA and was treated with Vancomycin. Eventually 05/26 performed MRI lumbar shows hematoma/abscess and Perc drain was placed. 06/03:Due to mild rise in creatinine will hold Toprol and start hydralazine and titrate as needed. Review of Systems Review of Systems: 12 systems were reviewed and are negativ e except for as per HPI. All systems reviewed & are unremarkable except as noted in HPI and below ROS unobtainable: Yes unobtainable due to endotracheal tube and unobtainable due to medical condition Exam Narrative: General: Comfortable at bedside HEENT: normocephalic, atraumatic. Mucous membranes moist. EOMI, PERRLA, bilateral sclera anicteric, no conjunctival injection. Respiratory: clear to auscultation bilaterally. No rales/rhonic/wheezes. Cardiovascular: Regular rate and rhythm, normal S1-S2 upon auscultation. No murmurs, rubs, or clicks. Capillary refill less than 3 second. Abdomen: Soft, round, no pulsatile masses, nondistended and nontender. No rebound, no guarding. Bowel sounds present to all four quadrants. No high pitch or tinkling sounds. Extremities: 2 + edema to both LE. No cyanosis, clubbing present. Pulses are palpable 2/2. Active ROM to all four extremities. Neuro: Alert and orientated x 4. PERRLA. Cranial nerves 2-12 intact without focal deficit. Skin: Warm, dry, and intact, without rash, erythema, or lesion. Psych: pleasant, cooperative, normal speech, normal affect, no hallucinations, no dysarthria Skin: G-tube site clean with G-tube in place and clamped. Gauze dressing in place in the right upper quadrant and left upper quadrant from previous ELSA drains, gauze dressing dry and intact. Const: General: comfortable, no acute distress and uncomfortable Other: Acutely ill-appearing, obese HENMT: Other: Mucous membranes are dry, head is normocephalic atraumatic, few missing teeth, bridge in the lower jaw Eyes: Other: Pupils are equal and reactive, no scleral icterus Neck: Other: No JVD, trachea midline Resp: Effort & Inspection: normal respiratory effort Auscultation: clear to auscultation bilaterally and diminished lung sounds Other: Cardio: Rate: regular rate Rhythm: regular rhythm Other: Telemetry SR 85. GI: Auscultation: normal bowel sounds Other: Gastrostomy tube in place with dry gauze dressing and skin around the G-tube without erythema or drainage. Incision dry with steri strips intact, no erythema. Slightly distended. : Other: Bowman catheter in place was a small amount of turbid yellow urine Urinary Catheter: Urinary Catheter: patent and draining Skin: Other: Generally cold to touch, 2nd cap refill, fingers and toes are cyanotic Neuro: Speech: normal speech Other: Pupils are reactive, equal Extrem: General: pedal edema bilaterally 2+ Other: 2+PP bilateral feet are warm. Psych: Mental Status: mental status grossly normal Affect: normal affect Other: Unable to assess due to patient condition Objective Data Vital Signs Vital Signs: Vital Signs - 24 hr 06/02/24 14:00 06/02/24 19:35 06/03/24 04:46 Temperature 98.6 F 98.2 F 97.7 F Pulse Rate 81 74 70 Respiratory Rate 18 20 20 Blood Pressure 151/59 H 174/58 H 156/64 H Pulse Oximetry 95 97 97 Intake/Output Intake/Output: Intake & Output 05/31/24 06/01/24 06/02/24 06/03/24 23:59 23:59 23:59 23:59 Intake Total 1570 2100 1130 1190 Output Total 1250 5241 457 7487 Balance 320 1100 520 -260 Meds/Results Medications: Active Medications Generic Name Dose Route Start Last Admin Trade Name Freq PRN Reason Stop Dose Admin Acetaminophen 650 mg 04/26/24 22:19 04/26/24 22:57 Acetaminophen 650 Mg Suppository RECTAL 650 mg Q6H PRN Administration Mild Pain (1-3) or Fever Acetaminophen 650 mg 05/05/24 10:27 06/02/24 23:27 Acetaminophen Elixir 325 Mg/10.15 Ml Udc PO 650 mg Q6H PRN Administration Mild Pain (1-3) or Fever Alteplase, Recombinant 2 mg 05/22/24 21:26 05/22/24 21:57 Alteplase 2 Mg Vial (Cathflo) IV PUSH 2 mg ONCE PRN Administration Line Occlusion Amlodipine Besylate 5 mg 05/27/24 12:15 06/02/24 09:46 Amlodipine Besylate 5 Mg Tablet PO 5 mg DAILY ROSY Administration Artificial Tears 1 drop 04/27/24 08:37 05/29/24 15:35 Artificial Tears Ophth Soln 15 Ml Bottle EACH EYE 1 drop QID PRN Administration Dry Eye(s) Atorvastatin Calcium 20 mg 04/30/24 09:00 Atorvastatin 20 Mg Tablet BY MOUTH DAILY ROSY Benzocaine 1 lozenge 05/15/24 15:35 05/21/24 12:14 Benzocaine/Menthol (*Bkc) 18 Ea Lozenge PO 1 lozenge PRN PRN Administration Sore Throat Calcium Carbonate 500 mg 05/19/24 08:00 06/02/24 09:46 Calcium/Vitamin D 500 Mg/5 Mcg (200 I.U.) Tablet PO 500 mg DAILY@0800 [facility] Administration Dextrose 12.5 gm 05/23/24 21:48 Dextrose 50% 25 Gm/50 Ml Syringe IV PUSH PRN PRN Hypoglycemia Protocol Dronabinol 2.5 mg 05/17/24 16:30 06/02/24 09:05 Dronabinol (*Crx) 2.5 Mg Capsule PO Not Given DAILY@1630 [facility] Enoxaparin Sodium 40 mg 05/25/24 09:00 05/26/24 09:47 Enoxaparin 40 Mg/0.4 Ml Syringe SUB-Q 40 mg DAILY ROSY Administration Epoetin Olu-epbx 10,000 units 05/14/24 11:05 06/02/24 10:02 Epoetin Olu-Epbx 10,000 Units/Ml Vial SUB-Q 10,000 units TUTHSA@09 [facility] Administration Glucagon 1 mg 05/23/24 21:48 Glucagon For Inj 1 Mg Vial IM PRN PRN Hypoglycemia Protocol Glucose 15 gm 05/23/24 21:48 Glucose Oral Gel 15 Gm Of Glucse In 37.5 Gm Tube PO PRN PRN Hypoglycemia Protocol Guaifenesin/Dextromethorphan 10 ml 05/15/24 10:07 05/22/24 01:23 Guaifenesin/Dextromethorphan 10 Ml Udc PO 10 ml Q4H PRN Administration Cough Hydralazine HCl 10 mg 04/25/24 08:00 05/31/24 13:17 Hydralazine Hcl 20 Mg/Ml Vial IV PUSH 10 mg Q4H PRN Administration Blood Pressure - High Vancomycin HCl 1,000 mg in 250 mls @ 250 mls/hr 05/25/24 06:00 06/03/24 06:32 Vancomycin 1,000 Mg/Ns 250 Ml IVPB Infused Q24H [facility] Infusion Ipratropium [place] 0.5 mg 05/04/24 09:32 05/17/24 10:11 Ipratropium Br 0.02% Inh Soln 0.5 Mg/2.5 Ml Vial INHALATION 0.5 mg Q6HRT PRN Administration Shortness Of Breath Levalbuterol HCl 0.63 mg 05/04/24 09:32 05/17/24 10:11 Levalbuterol Neb 1.25 Mg/3 Ml INHALATION 0.63 mg Q6HRT PRN Administration Shortness Of Breath Lidocaine 1 patch 05/18/24 09:00 06/02/24 09:45 Lidocaine 5% Patch TRANSDERM 1 patch DAILY ROSY Administration Lisinopril 40 mg 05/20/24 15:05 06/02/24 09:46 Lisinopril 20 Mg Tablet BY MOUTH 40 mg DAILY ROSY Administration Lorazepam 0.5 mg 05/16/24 13:48 06/03/24 02:52 Lorazepam (*Crx) 0.5 Mg Tablet PO 0.5 mg Q6H PRN Administration Anxiety Miscellaneous Information 0 each 05/30/24 00:01 06/02/24 08:42 Clonidine Patch Order Will Auto Stop Before The 05/31 Dose. Please Renew Order If This Is XX 06/29/24 00:00 Not Given CLARIFY ROSY Nystatin 5 ml 06/02/24 13:00 06/02/24 20:27 Nystatin 100,000 Units/Ml Susp 5 Ml Oral.Susp PO 5 ml QID ROSY Administration Ondansetron HCl 4 mg 05/13/24 11:22 05/21/24 05:44 Ondansetron Inj 4 Mg/2 Ml Vial IV PUSH 4 mg Q6H PRN Administration Nausea And Vomiting Pantoprazole Sodium 40 mg 05/23/24 09:00 06/02/24 09:05 Pantoprazole 40 Mg Tablet PO Not Given QAM ROSY Sodium Chloride 10 ml 05/04/24 14:15 Central Line Flush IV PUSH PRN PRN with TPN bag changes Sodium Chloride 20 ml 05/04/24 14:15 05/25/24 04:29 Central Line Flush IV PUSH 20 ml PRN PRN Administration after blood draws Radiology Results: ITS Impressions Chest/Abdomen/Pelvis CTA 04/22/24 18:10 IMPRESSION: Perforated viscus with a large amount of free air and fluid, with mural thickening in the distal stomach and multiple punctate foci of extraluminal air in this area for which site of perforation is suspected. Renal Ultrasound 04/24/24 11:58 IMPRESSION: Simple cyst in the left kidney upper pole. Other appearances are unremarkable. Lower Extremity CTA 05/02/24 16:36 IMPRESSION: 1. Scattered atherosclerotic plaque in the arteries of the left lower limb as detailed above without a discrete hemodynamic significant stenosis. Runoff below the ankle in the left posterior tibial artery this supplies the foot. Atretic distal peroneal and anterior tibial arteries with intraluminal contrast becoming indiscernible at the level of the ankle and with no appreciable contrast in the dorsalis pedis artery. Upper GI Series 05/09/24 09:31 IMPRESSION: 1. Ulcer of the gastric antrum with contained extraluminal contrast similar to 04/28/2024. The extraluminal contrast distribution is worse than typically seen after Clarence patch repair. Abdomen CT 05/09/24 15:27 IMPRESSION: Redemonstration of a tract extending from the posterior superior margin of the antrum of the stomach only partially filled with oral contrast, perhaps demonstrating early healing. Abdomen/Pelvis CT 05/17/24 09:03 Impression: Persistent wall thickening of the gastric antrum/duodenum with surrounding h aziness, compatible postoperative change. There is persistent irregular tract with small amount of fluid and external air extending from the gastric antrum superiorly/anteriorly, which could reflect abscess or persistent contained perforation. No extraluminal contrast seen, and no oral contrast seen within this collection. Intramuscular hematoma of the right iliopsoas and psoas major muscles, with additional irregular hematoma extending to the posterior right retroperitoneum. Bilateral fat-containing inguinal hernias. Small bilateral pleural effusions. Chest/Abdomen/Pelvis CT 05/22/24 14:37 IMPRESSION: Nodular opacities in the right upper lobe and right middle lobe, likely representing small infectious/inflammatory foci. Segmental bibasilar atelectasis/consolidation. Small bilateral simple pleural effusions. Cardiomegaly with trace pericardial fluid. Peritoneal gas anterior to the stomach secondary to antral perforation, with possible small adjacent abscess or fistulous tract. Nonfluid density peritoneal and psoas collections, may represent complex ascites from bowel content, blood, or phlegmon, or combination thereof. Significant body wall edema. Hand X-Ray 05/23/24 13:08 IMPRESSION: 1. No acute fracture. 2. Likely chronic malalignment at the wrist and carpus including 1 cm ulnar minus variance and disruption of the proximal carpal row which is most likely sequela of old trauma. 3. 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 4. Multiple subarticular lucencies at the wrist and carpus most likely degenerative subchondral cyst although differential includes chronic erosion such as in the setting of gout. Cervical Spine MRI 05/26/24 17:21 IMPRESSION: 1. Prevertebral/retropharyngeal soft tissue swelling anterior to the mid to upper cervical spine with peripheral enhancing fluid collection potentially a small abscess just right of midline at the level of the base of the dens. Findings were discussed with Dashawn Stevens, the nurse caring for the patient, at 6:18 PM. 2. Severe cervical spondylosis with no evident discitis or osteomyelitis. Thoracic Spine MRI 05/26/24 17:45 IMPRESSION: 1. Moderate thoracic spondylosis with no evident discitis or ostomy myelitis. 2. Small bilateral pleural effusions with dependent atelectasis versus pneumonia in the bilateral lower lobes. Lumbar Spine MRI 05/26/24 17:53 IMPRESSION: 1. Severe lumbar spondylosis with prominent increased disc signal at L1-L2 through L4-L5. Increased fluid signal is likely artifact of feculent phenomena which is seen at the same levels on locations on the prior CT although could not absent exclude discitis given the presence of a nearby complex loculated right psoas muscle fluid collection with increased T1 signal suggesting this is due to hematoma although this could potentially be secondarily infected. Bone marrow signal remains normal with no measurable enhancement along the endplates but no appreciable edema to more specifically elevated concern for discitis or osteomyelitis. Would consider percutaneous abscess drainage with Gram stain and culture of the right psoas fluid collection. Findings were discussed with Dashawn Stevens, the nurse caring for the patient, at 6:[address] 05/27/24 17:21 IMPRESSION: 1. Successful CT-guided right psoas muscle fluid collection drainage catheter placement. 2. 5 mL fluid was sent for aerobic and anaerobic cultures. 3. The catheter will be managed by Dr. Aguiar. Chest X-Ray 05/29/24 16:33 IMPRESSION: Mild pulmonary edema. Segmental left and subsegmental right basilar atelectasis/consolidation. Possible small bilateral pleural effusions. Modified Barium Swallow 05/30/24 12:28 IMPRESSION: Oropharyngeal dysphagia with laryngeal penetration and silent aspiration. Please correlate with speech pathologist findings and specific feeding recommendations. Quality VTE Prophylaxis VTE prophylaxis: mechanical ordered and pharmacologic ordered Hospitalist [facility] Advance Care Plan I have confirmed that the patient's Advanced Care Plan is present, code status is documented, or surrogate decision maker is listed in patient medical record.: Yes Medication Reconciliation I have utilized all available resources to obtain, update and review the patients current medications (includes all prescriptions, OTC, herbals, cannabis, and nutritional supplements).: Yes
[2024-06-03 08:00] VITALS: BP 157/45; PULSE 63; RESP 18; TEMP 36.2; O2SAT 96
[2024-06-03 08:19] VITALS: BMI 10.0
[2024-06-03] MEDS: NYSTATIN 100,000 UNITS/ML SUSP 5 ML ORAL.SUSP PO ×4 (09:34→21:15)
[2024-06-03] MEDS: amLODIPine BESYLATE 5 MG TABLET PO (09:34)
[2024-06-03] MEDS: LIDOCAINE 5% PATCH 1 PATCH TRANSDERM (09:34)
[2024-06-03] MEDS: CALCIUM/VITAMIN D 500 MG/5 MCG (200 I.U.) TABLET PO (09:34)
[2024-06-03] MEDS: hydrALAZINE 10 MG TABLET PO ×4 (09:34→21:15)
[2024-06-03] MEDS: MORPHINE SULFATE (*CRX) 2 MG/ML INJ 1 MG IV PUSH (10:03)
--- NOTE | 2024-06-03 10:14 | PCNFU ---
Nutrition Follow-Up Complete: Inadequate oral intake related to altered GI function as evidenced by need for full TPN Goal:Meet estimated nutrition needs. Pt meeting goal vit Tube feeding Pt current nutrition is NPO, Tube feeding: Nepro bolus 260ml QID, 180ml q 4 hrs Nutrition recommendation: continue with current plan of care Last recorded weight is 129.4 kg. Bowel Motility: +BM 06/03 Labs Reviewed: Hgb:8.5, HCT:28.8, BUN:53, Cr:1.6 Meds Noted: Reglan Skin: WNL Additional Notes: Pt continues on tube feedings: Total Nutrition: 1872 kcal/84 gm protein/756 ml water. Meeting 100% kcal needs at 15 kcal/kg and 88% protein needs at 0.8-1.0 gm/kg. Tolerating well. Agree with diet orders. Monitoring TPN tolerance, GI function, plan of care, weights, labs, orders Follow up Thursday/Thursday
--- NOTE | 2024-06-03 11:43 | P.PN_ITS ---
Progress Note: A&P Assessment and Plan (1) Psoas abscess, right: Code(s): K68.12 - Psoas muscle abscess Status: Acute Assessment and Plan: Percutaneously drained. Culture showed MRSA. Minimal output from the drain now. He is getting vancomycin for the MRSA (2) Dysphagia: Code(s): R13.10 - Dysphagia, unspecified Status: Acute Assessment and Plan: Last swallow study still showed some aspiration. He continues to be NPO for now. Continue nutrition per G-tube bolus feedings. (3) Acute kidney injury: Code(s): N17.9 - Acute kidney failure, unspecified Status: Acute Assessment and Plan: Renal function is now returned to his baseline. (4) MRSA bacteremia: Code(s): R78.81 - Bacteremia; B95.62 - Methicillin resistant Staphylococcus aureus infection as the cause of diseases classified elsewhere Status: Acute Assessment and Plan: MRSA cultured out of his blood. PICC line has been changed. Right psoas muscle retroperitoneal abscess infected hematoma has been drained. Continue on IV vancomycin. (5) Abnormal MRI, neck: Code(s): R93.89 - Abnormal findings on diagnostic imaging of other specified body structures Status: Acute Assessment and Plan: MRI seemed to suggest possible diskitis in the lumbosacral region and then questionable paraspinal abscess in the cervical region. Await transfer to [facility] to be evaluated by Neurosurgery and Infectious Disease. Hopefully he will be transferred this weekend. Subjective Date/time seen: 06/03/24 11:43 Interval history: Patient clinically stable. No acute changes. 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 Continues on IV antibiotics for MRSA. Continues to get bolus tube feeds through his G-tube. Mental status seems to be better. He seems to be asking appropriate questions and wakes up easily and converses. Exam GI: Other: Abdomen is soft and nondistended nontender. Midline incision healing well. G- tube site is clean and dry. Objective Data Vital Signs Vital Signs: Vital Signs - 24 hr 06/02/24 14:00 06/02/24 19:35 06/03/24 04:46 Temperature 37.0 C 36.8 C 36.5 C Pulse Rate 81 74 70 Respiratory Rate 18 20 20 Blood Pressure 151/59 H 174/58 H 156/64 H Pulse Oximetry 95 97 97 06/03/24 08:00 Temperature 36.2 C L Pulse Rate 63 Respiratory Rate 18 Blood Pressure 157/45 H Pulse Oximetry 96 Intake/Output Intake/Output: Intake & Output 05/31/24 06/01/24 06/02/24 06/03/24 23:59 23:59 23:59 23:59 Intake Total 1570 2100 1130 1190 Output Total 1250 6235 473 1436 Balance 320 1100 520 -510 Meds/Results Medications: Active Medications Generic Name Dose Route Start Last Admin Trade Name Freq PRN Reason Stop Dose Admin Acetaminophen 650 mg 04/26/24 22:19 04/26/24 22:57 Acetaminophen 650 Mg Suppository RECTAL 650 mg Q6H PRN Administration Mild Pain (1-3) or Fever Acetaminophen 650 mg 05/05/24 10:27 06/02/24 23:27 Acetaminophen Elixir 325 Mg/10.15 Ml Udc PO 650 mg Q6H PRN Administration Mild Pain (1-3) or Fever Alteplase, Recombinant 2 mg 05/22/24 21:26 05/22/24 21:57 Alteplase 2 Mg Vial (Cathflo) IV PUSH 2 mg ONCE PRN Administration Line Occlusion Amlodipine Besylate 5 mg 05/27/24 12:15 06/03/24 09:34 Amlodipine Besylate 5 Mg Tablet PO 5 mg DAILY ROSY Administration Artificial Tears 1 drop 04/27/24 08:37 05/29/24 15:35 Artificial Tears Ophth Soln 15 Ml Bottle EACH EYE 1 drop QID PRN Administration Dry Eye(s) Atorvastatin Calcium 20 mg 04/30/24 09:00 Atorvastatin 20 Mg Tablet BY MOUTH DAILY [facility] Benzocaine 1 lozenge 05/15/24 15:35 05/21/24 12:14 Benzocaine/Menthol (*Bkc) 18 Ea Lozenge PO 1 lozenge PRN PRN Administration Sore Throat Calcium Carbonate 500 mg 05/19/24 08:00 06/03/24 09:34 Calcium/Vitamin D 500 Mg/5 Mcg (200 I.U.) Tablet PO 500 mg DAILY@0800 ROSY Administration Dextrose 12.5 gm 05/23/24 21:48 Dextrose 50% 25 Gm/50 Ml Syringe IV PUSH PRN PRN Hypoglycemia Protocol Dronabinol 2.5 mg 05/17/24 16:30 06/03/24 08:31 Dronabinol (*Crx) 2.5 Mg Capsule PO Not Given DAILY@1630 [facility] Enoxaparin Sodium 40 mg 05/25/24 09:00 05/26/24 09:47 Enoxaparin 40 Mg/0.4 Ml Syringe SUB-Q 40 mg DAILY ROSY Administration Epoetin Olu-epbx 10,000 units 05/14/24 11:05 06/02/24 10:02 Epoetin Olu-Epbx 10,000 Units/Ml Vial SUB-Q 10,000 units TUTHSA@09 [facility] Administration Glucagon 1 mg 05/23/24 21:48 Glucagon For Inj 1 Mg Vial IM PRN PRN Hypoglycemia Protocol Glucose 15 gm 05/23/24 21:48 Glucose Oral Gel 15 Gm Of Glucse In 37.5 Gm Tube PO PRN PRN Hypoglycemia Protocol Guaifenesin/Dextromethorphan 10 ml 05/15/24 10:07 05/22/24 01:23 Guaifenesin/Dextromethorphan 10 Ml Udc PO 10 ml Q4H PRN Administration Cough Hydralazine HCl 10 mg 04/25/24 08:00 05/31/24 13:17 Hydralazine Hcl 20 Mg/Ml Vial IV PUSH 10 mg Q4H PRN Administration Blood Pressure - High Hydralazine HCl 10 mg 06/03/24 09:00 06/03/24 09:34 Hydralazine 10 Mg Tablet PO 10 mg QID [facility] Administration Vancomycin HCl 1,000 mg in 250 mls @ 250 mls/hr 05/25/24 06:00 06/03/24 06:32 Vancomycin 1,000 Mg/Ns 250 Ml IVPB Infused Q24H [facility] Infusion Ipratropium [place] 0.5 mg 05/04/24 09:32 05/17/24 10:11 Ipratropium Br 0.02% Inh Soln 0.5 Mg/2.5 Ml Vial INHALATION 0.5 mg Q6HRT PRN Administration Shortness Of Breath Levalbuterol HCl 0.63 mg 05/04/24 09:32 05/17/24 10:11 Levalbuterol Neb 1.25 Mg/3 Ml INHALATION 0.63 mg Q6HRT PRN Administration Shortness Of Breath Lidocaine 1 patch 05/18/24 09:00 06/03/24 09:34 Lidocaine 5% Patch TRANSDERM 1 patch DAILY ROSY Administration Lisinopril 40 mg 05/20/24 15:05 06/02/24 09:46 Lisinopril 20 Mg Tablet BY MOUTH 40 mg DAILY ROSY Administration Lorazepam 0.5 mg 05/16/24 13:48 06/03/24 02:52 Lorazepam (*Crx) 0.5 Mg Tablet PO 0.5 mg Q6H PRN Administration Anxiety Miscellaneous Information 0 each 05/30/24 00:01 06/03/24 07:51 Clonidine Patch Order Will Auto Stop Before The 05/31 Dose. Please Renew Order If This Is XX 06/29/24 00:00 Not Given CLARIFY ROSY Miscellaneous Information 0 each 06/03/24 00:01 Please Renew Acetaminophen- Can Patient Take Tabs? XX 07/03/24 00:00 CLARIFY ROSY Nystatin 5 ml 06/02/24 13:00 06/03/24 09:34 Nystatin 100,000 Units/Ml Susp 5 Ml Oral.Susp PO 5 ml QID ROSY Administration Ondansetron HCl 4 mg 05/13/24 11:22 05/21/24 05:44 Ondansetron Inj 4 Mg/2 Ml Vial IV PUSH 4 mg Q6H PRN Administration Nausea And Vomiting Pantoprazole Sodium 40 mg 05/23/24 09:00 06/03/24 08:30 Pantoprazole 40 Mg Tablet PO Not Given QAM ROSY Sodium Chloride 10 ml 05/04/24 14:15 Central Line Flush IV PUSH PRN PRN with TPN bag changes Sodium Chloride 20 ml 05/04/24 14:15 05/25/24 04:29 Central Line Flush IV PUSH 20 ml PRN PRN Administration after blood draws Radiology Results: ITS Impressions Chest/Abdomen/Pelvis CTA 04/22/24 18:10 IMPRESSION: Perforated viscus with a large amount of free air and fluid, with mural thickening in the distal stomach and multiple punctate foci of extraluminal air in this area for which site of perforation is suspected. Renal Ultrasound 04/24/24 11:58 IMPRESSION: Simple cyst in the left kidney upper pole. Other appearances are unremarkable. Lower Extremity CTA 05/02/24 16:36 IMPRESSION: 1. Scattered atherosclerotic plaque in the arteries of the left lower limb as detailed above without a discrete hemodynamic significant stenosis. Runoff below the ankle in the left posterior tibial artery this supplies the foot. Atretic distal peroneal and anterior tibial arteries with intraluminal contrast becoming indiscernible at the level of the ankle and with no appreciable contrast in the dorsalis pedis artery. Upper GI Series 05/09/24 09:31 IMPRESSION: 1. Ulcer of the gastric antrum with contained extraluminal contrast similar to 04/28/2024. The extraluminal contrast distribution is worse than typically seen after Clarence patch repair. Abdomen CT 05/09/24 15:27 IMPRESSION: Redemonstration of a tract extending from the posterior superior margin of the antrum of the stomach only partially filled with oral contrast, perhaps demonstrating early healing. Abdomen/Pelvis CT 05/17/24 09:03 Impression: Persistent wall thickening of the gastric antrum/duodenum with surrounding haziness, compatible postoperative change. There is persistent irregular tract with small amount of fluid and external air extending from the gastric antrum superiorly/anteriorly, which could reflect abscess or persistent contained perforation. No extraluminal contrast seen, and no oral contrast seen within this collection. Intramuscular hematoma of the right iliopsoas and psoas major muscles, with additional irregular hematoma extending to the posterior right retroperitoneum. Bilateral fat-containing inguinal hernias. Small bilateral pleural effusions. Chest/Abdomen/Pelvis CT 05/22/24 14:37 IMPRESSION: Nodular opacities in the right upper lobe and right middle lobe, likely representing small infectious/inflammatory foci. Segmental bibasilar atelectasis/consolidation. Small bilateral simple pleural effusions. Cardiomegaly with trace pericardial fluid. Peritoneal gas anterior to the stomach secondary to antral perforation, with possible small adjacent abscess or fistulous tract. Nonfluid density peritoneal and psoas collections, may represent complex ascites from bowel content, blood, or phlegmon, or combination thereof. Significant body wall edema. Hand X-Ray 05/23/24 13:08 IMPRESSION: 1. No acute fracture. 2. Likely chronic malalignment at the wrist and carpus including 1 cm ulnar minus variance and disruption of the proximal carpal row which is most likely sequela of old trauma. 3. 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 4. Multiple subarticular lucencies at the wrist and carpus most likely degenerative subchondral cyst although differential includes chronic erosion such as in the setting of gout. Cervical Spine MRI 05/26/24 17:21 IMPRESSION: 1. Prevertebral/retropharyngeal soft tissue swelling anterior to the mid to upper cervical spine with peripheral enhancing fluid collection potentially a small abscess just right of midline at the level of the base of the dens. Findings were discussed with Dashawn Stevens, the nurse caring for the patient, at 6:18 PM. 2. Severe cervical spondylosis with no evident discitis or osteomyelitis. Thoracic Spine MRI 05/26/24 17:45 IMPRESSION: 1. Moderate thoracic spondylosis with no evident discitis or ostomy myelitis. 2. Small bilateral pleural effusions with dependent atelectasis versus pneumonia in the bilateral lower lobes. Lumbar Spine MRI 05/26/24 17:53 IMPRESSION: 1. Severe lumbar spondylosis with prominent increased disc signal at L1-L2 through L4-L5. Increased fluid signal is likely artifact of feculent phenomena which is seen at the same levels on locations on the prior CT although could not absent exclude discitis given the presence of a nearby complex loculated right psoas muscle fluid collection with increased T1 signal suggesting this is due to hematoma although this could potentially be secondarily infected. Bone marrow signal remains normal with no measurable enhancement along the endplates but no appreciable edema to more specifically elevated concern for discitis or osteomyelitis. Would consider percutaneous abscess drainage with Gram stain and culture of the right psoas fluid collection. Findings were discussed with Dashawn Stevens, the nurse caring for the patient, at 6:[address] 05/27/24 17:21 IMPRESSION: 1. Successful CT-guided right psoas muscle fluid collection drainage catheter placement. 2. 5 mL fluid was sent for aerobic and anaerobic cultures. 3. The catheter will be managed by Dr. Aguiar. Chest X-Ray 05/29/24 16:33 IMPRESSION: Mild pulmonary edema. Segmental left and subsegmental right basilar atelectasis/consolidation. Possible small bilateral pleural effusions. Modified Barium Swallow 05/30/24 12:28 IMPRESSION: Oropharyngeal dysphagia with laryngeal penetration and silent aspiration. Please correlate with speech pathologist findings and specific feeding recommendations.
--- NOTE | 2024-06-03 12:31 | P.PNINF_ITS ---
Pharmacy ID Consult Stewardship Interventions Pharmacy ID Note: See previous notes Spoke with provider Kale today - no additional source control - still pending transfer - patient actively participating with at least OT CT scan showed two sets of abscesses one of which was drained on 05/27 - culture growing MRSA 05/26 blood culture did return MRSA 05/28 blood culture - no growth --> Finalized 05/29 blood culture - no growth --> Finalized 05/30 blood culture - no growth to date Unfortunately EMPERATRIZ has not yet been / cannot be done, and additional set of abscesses remain undrained. Transfer Pending to [facility] Provider also may call [facility], will repeat MRI too Will continue to follow - continue vancomycin - likely looking at 6w from source control - patient has potential discitis and undrained abscesses. Promising that blood cultures have been NGTD. Rasheed Angel, PharmD Infectious Disease/Antimicrobial Stewardship Pharmacist 06/03/24; 1231 WBC 7.6 K/mm3 (4.5-10.0) 06/02/24 05:15 Creatinine 1.63 mg/dL (0.7-1.3) H 06/02/24 05:15 Estim Creat Clear Calc 48 ml/min 06/02/24 05:15 Previous Note Copied Below Rejoined case more actively after conversation with Dr. Sims led to identification of abscesses See previous notes for complete details. CT scan showed two sets of abscesses one of which was drained on 05/27 - culture growing MRSA 05/26 blood culture did return MRSA 05/28 blood culture - no growth to date 05/29 blood culture - no growth to date 05/30 (today) blood culture - pending Looking at all positive MRSA strains this visit shows the patient potentially growing two different strains of MRSA as noted by different vancomycin THEODORA's (<= 0.5 vs 1) Unfortunately EMPERATRIZ has not yet been / cannot be done, and additional set of abscesses remain undrained. Transfer Pending to [facility] Old PICC line was pulled later last week. Patient remains on Vancomycin which is appropriate for both MRSA strains given THEODORA at or less than 1 mcg/mL and troughs have been therapeutic or supratheraeutic since 05/22. No end date at this time given continued bacteremia and lack of source control with transfer pending. Continue to look for sources. Recommend transfer to where source control can be obtained, to where infectious disease providers can assess patient. goal trough 15-20 mcg/mL or AUC:THEODORA 400-600:1
[2024-06-03 14:00] VITALS: BP 152/61; PULSE 68; RESP 16; TEMP 36.3; O2SAT 97
[2024-06-03 19:38] VITALS: BP 156/68; PULSE 71; RESP 18; TEMP 36.6; O2SAT 98
[2024-06-04] MEDS: hydrALAZINE HCL 20 MG/ML VIAL 10 MG IV PUSH (03:43)
[2024-06-04 04:16] VITALS: BP 181/66; PULSE 69; RESP 18; TEMP 36.7; O2SAT 97
[2024-06-04 04:48] LABS: Hematocrit 31.1 % (42.0-52.0); Hemoglobin 9.3 g/dL (14.0-18.0); Mean Corpuscular HGB Conc 29.9 g/dl (32-36); Mean Corpuscular Hemoglobin 29.8 pg (26-34); Mean Corpuscular Volume 99.7 fl (80-100); Mean Platelet Volume 11.5 fl (7.4-10.4); Platelet Count Result 263 k/mm3 (150-375); Red Blood Count 3.12 M/mm3 (4.6-6.20); Red Cell Distribution Width 17.1 % (11.5-14.5)
[2024-06-04 05:03] LABS: Alanine Aminotransferase 16 U/L (6-50); Alkaline Phosphatase 106 U/L (38-126); Anion Gap 6 mmol/L (4-12); Aspartate Amino Transferase 26 U/L (17-59); Bilirubin,Total 0.3 mg/dL (0.2-1.3); Blood Urea Nitrogen 46 mg/dL (9-20); Calcium 8.7 mg/dL (8.4-10.2); Carbon Dioxide 32 mmol/L (22-30); Chloride 103 mmol/L (98-107); Estimated CRCL calculation 58 ml/min; Estimated Glomerular Filt Rate 52; Glucose 110 mg/dL (65-110); Potassium 3.8 mmol/L (3.4-5.0); Sodium 141 mmol/L (137-145)
[2024-06-04] MEDS: VANCOMYCIN 1,000 MG/NS 250 ML 1,000 MG/250 ML BAG 250 MG IVPB (06:13)
--- NOTE | 2024-06-04 08:41 | P.PNIM_ITS ---
Progress Note: A&P Assessment and Plan (1) Sepsis: Code(s): A41.9 - Sepsis, unspecified organism Status: Resolved Assessment and Plan: sepsis resolved From psoas and prevertebral abscess Continue Vancomycin while waiting for [facility] transfer (2) Bacteremia: Code(s): R78.81 - Bacteremia Status: Acute Assessment and Plan: MRSA bacteremia from Psoas and prevertebral abscess Blood culture still positive on 05/24 repeat blood culture today Continue IV Vanc awaiting placement (3) Perforated abdominal viscus: Code(s): R19.8 - Other specified symptoms and signs involving the digestive system and abdomen Status: Acute Assessment and Plan: Septic shock from peritonitis with perforated gastric ulcer s/p laparotomy with repair repeat CT chest/AP nodular opacities in the right upper lobe and right middle lobe, peritoneal gas ant to stomach with possible small adjacent abscess or fistulous tract Surgery evaluated and noted not abscess is persistent finding not big enough for drainage Continue Peg Tube feeding for now. Gen surgery following (4) Pneumonia: Code(s): J18.9 - Pneumonia, unspecified organism Status: Acute Assessment and Plan: * Nodular opacities in the right upper lobe and right middle lobe, likely representing small infectious/inflammatory foci. 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 * Patient advanced to soft diet per General surgery recommendation * Continue to encourage po intake * Bolus tube feeding via G tube * add reglan and Marinol (6) Dysphagia: Code(s): R13.10 - Dysphagia, unspecified Status: Acute Assessment and Plan: * See plan above * continue tube feeding * Advance diet per Speech (7) Right wrist pain: Code(s): M25.531 - Pain in right wrist Status: Acute Assessment and Plan: * Patient started c/o of right wrist pain on 05/23 * Likely related to repeated blood culture attempts * XR hand RT 2V: No acute fracture. 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 Multiple subarticular lucencies at the wrist and carpus * Physical exam benign (8) Acute kidney injury superimposed on stage 3b chronic kidney disease: Code(s): N17.9 - Acute kidney failure, unspecified; N18.32 - Chronic kidney disease, stage 3b Status: Acute Assessment and Plan: resolved Creatinine 1.48, which is baseline (9) Pleural effusion: Code(s): J90 - Pleural effusion, not elsewhere classified Status: Acute Assessment and Plan: * Seen on CT * Chest x-ray dated compare * Likely due to 3rd spacing * Stable (10) Anemia: Code(s): D64.9 - Anemia, unspecified Status: Acute Assessment and Plan: Iron deficiency anemia on acute loss Stable * Trend CBC. * transfuse if hgb <7.0, or symptomatic * Iron replacement * hb 8.6 (11) HTN (hypertension): Code(s): I10 - Essential (primary) hypertension Status: Acute Assessment and Plan: Controlled * Continue Clonidine patch and Hydralazine PRN. * Trend BP (12) Generalized weakness: Code(s): R53.1 - Weakness Status: Acute Assessment and Plan: * PT/OT-maxi move use for transfer * Patient will likely need placement * No changes to current plan (13) Hypokalemia: Code(s): E87.6 - Hypokalemia Status: Acute Assessment and Plan: Improved * Trend labs * Replace as indicated (14) Hypernatremia: Code(s): E87.0 - Hyperosmolality and hypernatremia Status: Acute Assessment and Plan: Resolved Daily BMP Plan Possible Discitis vs osteomyelitis MRI spine showed increased disc signal at L1-2 through l4-5 also increase T1 signal with adjacent complex loculated right psoas muscle fluid collection, hematoma vs abscess Continue abx as above and abscess culture positive for Staph aureus Awaiting transfer to [facility] Psoas muscle and prevertebral cervical abscess MRI reviewed ELSA drain to psoas abscess and culture positive for Staph Aureus, sensitivity pending continue abscess drainage Blood culture still positive as of 05/27 repeat culture continue Vancomycin MRSA bacteremia from the above continue above care FTT/protein energy malnutrition patient on tube feeding since patient is more awake today and following commands Follow speech therapy continue monitoring DVT prophylaxis on Sq Lovenox Awaiting transfer to [facility] Subjective Date/time seen: 06/04/24 08:41 Interval history: Interval history: Brief hospital course: On 04/23 Exploratory laparotomy with repair of antral gastric ulcer with omental Clarence patch.Placement of open gastrostomy tube.Gastrotomy tube was placed in OR during surgery since anaesthesia was not able to place NG tube. During the course of hospitalization patient had evidence of cold leg and underwent CTA on 05/02/24 and no evidence of sever occlusion and started on AC. On 05/26 blood culture did return MRSA. Patient started on vancomycin. Cardiology unable to perform EMPERATRIZ. Repeat blood culture on 05/28, 0 05/29, and 0 05/30 shows no growth to date. Patient BC shows MRSA and was treated with Vancomycin. Eventually 05/26 performed MRI lumbar shows hematoma/abscess and Perc drain was placed. Cervical spine MRI:1. Prevertebral/retropharyngeal soft tissue swelling anterior to the mid to upper cervical spine with peripheral enhancing fluid collection potentially a small abscess just right of midline at the level of the base of the dens. 2. Severe cervical spondylosis with no evident discitis or osteomyelitis. Thoracic spine MRI:1. Moderate thoracic spondylosis with no evident discitis or ostomy myelitis. 2. Small bilateral pleural effusions with dependent atelectasis versus pneumonia in the bilateral lower lobes. Lumbar MRI:1. Severe lumbar spondylosis with prominent increased disc signal at L1-L2 through L4-L5. Increased fluid signal is likely artifact of feculent phenomena which is seen at the same levels on locations on the prior CT although could not absent exclude discitis given the presence of a nearby complex loculated right psoas muscle fluid collection with increased T1 signal suggesting this is due to hematoma although this could potentially be secondarily infected. Bone marrow signal remains normal with no measurable enhancement along the endplates but no appreciable edema to more specifically elevated concern for discitis or osteomyelitis. Would consider percutaneous abscess drainage with Gram stain and culture of the right psoas fluid collection On 05/27 patient underwent 1. Successful CT-guided right psoas muscle fluid collection drainage catheter placement. 5 mL fluid was sent for aerobic and anaerobic cultures. The catheter will be managed by Dr. Cosme Gorman accepted the patient.[facility] denied transfer. [facility] accepted the patient by Review of Systems Review of Systems: 12 systems were reviewed and are negativ e except for as per HPI. All systems reviewed & are unremarkable except as noted in HPI and below ROS unobtainable: Yes unobtainable due to endotracheal tube and unobtainable due to medical condition Exam Narrative: General: Comfortable at bedside HEENT: normocephalic, atraumatic. Mucous membranes moist. EOMI, PERRLA, bilateral sclera anicteric, no conjunctival injection. Respiratory: clear to auscultation bilaterally. No rales/rhonic/wheezes. Cardiovascular: Regular rate and rhythm, normal S1-S2 upon auscultation. No murmurs, rubs, or clicks. Capillary refill less than 3 second. Abdomen: Soft, round, no pulsatile masses, nondistended and nontender. No rebound, no guarding. Bowel sounds present to all four quadrants. No high pitch or tinkling sounds. Extremities: 2 + edema to both LE. No cyanosis, clubbing present. Pulses are palpable 2/2. Active ROM to all four extremities. Neuro: Alert and orientated x 4. PERRLA. Cranial nerves 2-12 intact without focal deficit. Skin: Warm, dry, and intact, without rash, erythema, or lesion. Psych: pleasant, cooperative, normal speech, normal affect, no hallucinations, no dysarthria Skin: G-tube site clean with G-tube in place and clamped. Gauze dressing in place in the right upper quadrant and left upper quadrant from previous ELSA drains, gauze dressing dry and intact. Const: General: comfortable, no acute distress and uncomfortable Nutritional Appearance: obese, overweight and edematous Orientation/consciousness: oriented to person, oriented to place, patient oriented x3, No confusion, patient obtunded, lethargic and Other orientation findings (intubated) Other: Acutely ill-appearing, obese HENMT: Ears: TM's normal bilaterally Face/Nose/Sinus: Normal nares present Mouth: Yes moist mucous membranes Other: Mucous membranes are dry, head is normocephalic atraumatic, few missing teeth, bridge in the lower jaw Eyes: General: appearance normal, both eyes and all related structures Sclera: sclerae normal Pupils: Equal, round and reactive pupils present EOM: EOMs intact bilaterally Other: Pupils are equal and reactive, no scleral icterus Neck: Neck: supple and no JVD Other: No JVD, trachea midline Resp: Effort & Inspection: normal respiratory effort Auscultation: clear to auscultation bilaterally and diminished lung sounds Other: Cardio: Rate: regular rate Rhythm: regular rhythm Other: Telemetry SR 85. GI: Inspection: normal to inspection, Abdominal wall edema bilateral, non- distended, incision (well healed), obesity, no visible herniation and other (Psoas pigtail drain with dark bloody output) Auscultation: normal bowel sounds Other: Gastrostomy tube in place with dry gauze dressing and skin around the G-tube without erythema or drainage. Incision dry with steri strips intact, no erythema. Slightly distended. : Other: Bowman catheter in place was a small amount of turbid yellow urine Urinary Catheter: Urinary Catheter: patent and draining Skin: General skin exam: normal color and no rashes or lesions noted Other: Generally cold to touch, 2nd cap refill, fingers and toes are cyanotic Neuro: General: oriented to person, oriented to place, patient oriented x3, gait normal, moves all extremities, no focal motor deficits, No confusion and patient obtunded Cranial nerves: Yes Equal, round and reactive pupils present Speech: normal speech Motor exam (neuro): 5/5 motor strength present throughout Sensory Exam: normal sensation Other: Pupils are reactive, equal Extrem: General: pedal edema bilaterally 2+ Right upper extremity: normal capillary refill and edema Left upper extremity: normal capillary refill and edema Right lower extremity: edema Left lower extremity: edema Other: 2+PP bilateral feet are warm. Psych: Mental Status: mental status grossly normal Affect: normal affect Other: Unable to assess due to patient condition Objective Data Vital Signs Vital Signs: Vital Signs - 24 hr 06/03/24 14:00 06/03/24 19:38 06/04/24 04:16 Temperature 97.3 F L 97.8 F 98.0 F Pulse Rate 68 71 69 Respiratory Rate 16 18 18 Blood Pressure 152/61 H 156/68 H 181/66 H Pulse Oximetry 97 98 97 Intake/Output Intake/Output: Intake & Output 06/01/24 06/02/24 06/03/24 06/04/24 23:59 23:59 23:59 23:59 Intake Total 2100 1130 1440 1060 Output Total 1520 207 9618 700 Balance 1100 520 -610 360 Meds/Results Medications: Active Medications Generic Name Dose Route Start Last Admin Trade Name Freq PRN Reason Stop Dose Admin Acetaminophen 650 mg 04/26/24 22:19 04/26/24 22:57 Acetaminophen 650 Mg Suppository RECTAL 650 mg Q6H PRN Administration Mild Pain (1-3) or Fever Acetaminophen 650 mg 05/05/24 10:27 06/02/24 23:27 Acetaminophen Elixir 325 Mg/10.15 Ml Udc PO 07/03/24 23:59 650 mg Q6H PRN Administration Mild Pain (1-3) or Fever Alteplase, Recombinant 2 mg 05/22/24 21:26 05/22/24 21:57 Alteplase 2 Mg Vial (Cathflo) IV PUSH 2 mg ONCE PRN Administration Line Occlusion Amlodipine Besylate 5 mg 05/27/24 12:15 06/03/24 09:34 Amlodipine Besylate 5 Mg Tablet PO 5 mg DAILY ROSY Administration Artificial Tears 1 drop 04/27/24 08:37 05/29/24 15:35 Artificial Tears Ophth Soln 15 Ml Bottle EACH EYE 1 drop QID PRN Administration Dry Eye(s) Atorvastatin Calcium 20 mg 04/30/24 09:00 Atorvastatin 20 Mg Tablet BY MOUTH DAILY [facility] Benzocaine 1 lozenge 05/15/24 15:35 05/21/24 12:14 Benzocaine/Menthol (*Bkc) 18 Ea Lozenge PO 1 lozenge PRN PRN Administration Sore Throat Calcium Carbonate 500 mg 05/19/24 08:00 06/03/24 09:34 Calcium/Vitamin D 500 Mg/5 Mcg (200 I.U.) Tablet PO 500 mg DAILY@0800 [facility] Administration Dextrose 12.5 gm 05/23/24 21:48 Dextrose 50% 25 Gm/50 Ml Syringe IV PUSH PRN PRN Hypoglycemia Protocol Dronabinol 2.5 mg 05/17/24 16:30 06/03/24 08:31 Dronabinol (*Crx) 2.5 Mg Capsule PO Not Given DAILY@1630 [facility] Enoxaparin Sodium 40 mg 05/25/24 09:00 05/26/24 09:47 Enoxaparin 40 Mg/0.4 Ml Syringe SUB-Q 40 mg DAILY [facility] Administration Epoetin Olu-epbx 10,000 units 05/14/24 11:05 06/02/24 10:02 Epoetin Olu-Epbx 10,000 Units/Ml Vial SUB-Q 10,000 units TUTHSA@09 [facility] Administration Glucagon 1 mg 05/23/24 21:48 Glucagon For Inj 1 Mg Vial IM PRN PRN Hypoglycemia Protocol Glucose 15 gm 05/23/24 21:48 Glucose Oral Gel 15 Gm Of Glucse In 37.5 Gm Tube PO PRN PRN Hypoglycemia Protocol Guaifenesin/Dextromethorphan 10 ml 05/15/24 10:07 05/22/24 01:23 Guaifenesin/Dextromethorphan 10 Ml Udc PO 10 ml Q4H PRN Administration Cough Hydralazine HCl 10 mg 04/25/24 08:00 06/04/24 03:43 Hydralazine Hcl 20 Mg/Ml Vial IV PUSH 10 mg Q4H PRN Administration Blood Pressure - High Hydralazine HCl 25 mg 06/04/24 09:00 Hydralazine Hcl 25 Mg Tablet PO QID [facility] Vancomycin HCl 1,000 mg in 250 mls @ 250 mls/hr 05/25/24 06:00 06/04/24 06:13 Vancomycin 1,000 Mg/Ns 250 Ml IVPB 250 mls/hr Q24H ROSY Administration Ipratropium [place] 0.5 mg 05/04/24 09:32 05/17/24 10:11 Ipratropium Br 0.02% Inh Soln 0.5 Mg/2.5 Ml Vial INHALATION 0.5 mg Q6HRT PRN Administration Shortness Of Breath Levalbuterol HCl 0.63 mg 05/04/24 09:32 05/17/24 10:11 Levalbuterol Neb 1.25 Mg/3 Ml INHALATION 0.63 mg Q6HRT PRN Administration Shortness Of Breath Lidocaine 1 patch 05/18/24 09:00 06/03/24 09:34 Lidocaine 5% Patch TRANSDERM 1 patch DAILY ROSY Administration Lisinopril 40 mg 05/20/24 15:05 06/02/24 09:46 Lisinopril 20 Mg Tablet BY MOUTH 40 mg DAILY ROSY Administration Lorazepam 0.5 mg 05/16/24 13:48 06/03/24 21:26 Lorazepam (*Crx) 0.5 Mg Tablet PO 0.5 mg Q6H PRN Administration Anxiety Miscellaneous Information 0 each 05/30/24 00:01 06/04/24 07:14 Clonidine Patch Order Will Auto Stop Before The 05/31 Dose. Please Renew Order If This Is XX 06/29/24 00:00 Not Given CLARIFY ROSY Miscellaneous Information 0 each 06/04/24 00:01 06/04/24 08:04 Please Renew Dronabinal- 10 Day [employer] For Controlled Substance XX 07/04/24 00:00 Not Given CLARIFY ROSY Nystatin 5 ml 06/02/24 13:00 06/03/24 21:15 Nystatin 100,000 Units/Ml Susp 5 Ml Oral.Susp PO 5 ml QID ROSY Administration Ondansetron HCl 4 mg 05/13/24 11:22 05/21/24 05:44 Ondansetron Inj 4 Mg/2 Ml Vial IV PUSH 4 mg Q6H PRN Administration Nausea And Vomiting Pantoprazole Sodium 40 mg 05/23/24 09:00 06/03/24 08:30 Pantoprazole 40 Mg Tablet PO Not Given QAM ROSY Sodium Chloride 10 ml 05/04/24 14:15 Central Line Flush IV PUSH PRN PRN with TPN bag changes Sodium Chloride 20 ml 05/04/24 14:15 05/25/24 04:29 Central Line Flush IV PUSH 20 ml PRN PRN Administration after blood draws Radiology Results: ITS Impressions Chest/Abdomen/Pelvis CTA 04/22/24 18:10 IMPRESSION: Perforated viscus with a large amount of free air and fluid, with mural thickening in the distal stomach and multiple punctate foci of extraluminal air in this area for which site of perforation is suspected. Renal Ultrasound 04/24/24 11:58 IMPRESSION: Simple cyst in the left kidney upper pole. Other appearances are unremarkable. Lower Extremity CTA 05/02/24 16:36 IMPRESSION: 1. Scattered atherosclerotic plaque in the arteries of the left lower limb as detailed above without a discrete hemodynamic significant stenosis. Runoff below the ankle in the left posterior tibial artery this supplies the foot. Atretic distal peroneal and anterior tibial arteries with intraluminal contrast becoming indiscernible at the level of the ankle and with no appreciable contrast in the dorsalis pedis artery. Upper GI Series 05/09/24 09:31 IMPRESSION: 1. Ulcer of the gastric antrum with contained extraluminal contrast similar to 04/28/2024. The extraluminal contrast distribution is worse than typically seen after Clarence patch repair. Abdomen CT 05/09/24 15:27 IMPRESSION: Redemonstration of a tract extending from the posterior superior margin of the antrum of the stomach only partially filled with oral contrast, perhaps demonstrating early healing. Abdomen/Pelvis CT 05/17/24 09:03 Impression: Persistent wall thickening of the gastric antrum/duodenum with surrounding haziness, compatible postoperative change. There is persistent irregular tract with small amount of fluid and external air extending from the gastric antrum superiorly/anteriorly, which could reflect abscess or persistent contained perforation. No extraluminal contrast seen, and no oral contrast seen within this collection. Intramuscular hematoma of the right iliopsoas and psoas major muscles, with additional irregular hematoma extending to the posterior right retroperitoneum. Bilateral fat-containing inguinal hernias. Small bilateral pleural effusions. Chest/Abdomen/Pelvis CT 05/22/24 14:37 IMPRESSION: Nodular opacities in the right upper lobe and right middle lobe, likely representing small infectious/inflammatory foci. Segmental bibasilar atelectasis/consolidation. Small bilateral simple pleural effusions. Cardiomegaly with trace pericardial fluid. Peritoneal gas anterior to the stomach secondary to antral perforation, with possible small adjacent abscess or fistulous tract. Nonfluid density peritoneal and psoas collections, may represent complex ascites from bowel content, blood, or phlegmon, or combination thereof. Significant body wall edema. Hand X-Ray 05/23/24 13:08 IMPRESSION: 1. No acute fracture. 2. Likely chronic malalignment at the wrist and carpus including 1 cm ulnar minus variance and disruption of the proximal carpal row which is most likely sequela of old trauma. 3. 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 4. Multiple subarticular lucencies at the wrist and carpus most likely degenerative subchondral cyst although differential includes chronic erosion such as in the setting of gout. Cervical Spine MRI 05/26/24 17:21 IMPRESSION: 1. Prevertebral/retropharyngeal soft tissue swelling anterior to the mid to upper cervical spine with peripheral enhancing fluid collection potentially a small abscess just right of midline at the level of the base of the dens. Findings were discussed with Dashawn Stevens, the nurse caring for the patient, at 6:18 PM. 2. Severe cervical spondylosis with no evident discitis or osteomyelitis. Thoracic Spine MRI 05/26/24 17:45 IMPRESSION: 1. Moderate thoracic spondylosis with no evident discitis or ostomy myelitis. 2. Small bilateral pleural effusions with dependent atelectasis versus pneumonia in the bilateral lower lobes. Lumbar Spine MRI 05/26/24 17:53 IMPRESSION: 1. Severe lumbar spondylosis with prominent increased disc signal at L1-L2 through L4-L5. Increased fluid signal is likely artifact of feculent phenomena which is seen at the same levels on locations on the prior CT although could not absent exclude discitis given the presence of a nearby complex loculated right psoas muscle fluid collection with increased T1 signal suggesting this is due to hematoma although this could potentially be secondarily infected. Bone marrow signal remains normal with no measurable enhancement along the endplates but no appreciable edema to more specifically elevated concern for discitis or osteomyelitis. Would consider percutaneous abscess drainage with Gram stain and culture of the right psoas fluid collection. Findings were discussed with Dashawn Stevens, the nurse caring for the patient, at 6:[address] 05/27/24 17:21 IMPRESSION: 1. Successful CT-guided right psoas muscle fluid collection drainage catheter placement. 2. 5 mL fluid was sent for aerobic and anaerobic cultures. 3. The catheter will be managed by Dr. Aguiar. Chest X-Ray 05/29/24 16:33 IMPRESSION: Mild pulmonary edema. Segmental left and subsegmental right basilar atelectasis/consolidation. Possible small bilateral pleural effusions. Modified Barium Swallow 05/30/24 12:28 IMPRESSION: Oropharyngeal dysphagia with laryngeal penetration and silent aspiration. Please correlate with speech pathologist findings and specific feeding recommendations. Labs Labs: Laboratory Results - last 24 hr 06/04/24 04:29 WBC 8.0 RBC 3.12 L Hgb 9.3 L Hct 31.1 L MCV 99.7 MCH 29.8 MCHC 29.9 L RDW 17.1 H Plt Count 263 MPV 11.5 H Sodium 141 Potassium 3.8 Chloride 103 Carbon Dioxide 32 H Anion Gap 6 BUN 46 H Creatinine 1.34 H Estim Creat Clear Calc 58 Estimated GFR 52 L Glucose 110 Calcium 8.7 Total Bilirubin 0.3 AST 26 ALT 16 Alkaline Phosphatase 106 Total Protein 7.0 Albumin 3.0 L Quality VTE Prophylaxis VTE prophylaxis: mechanical ordered and pharmacologic ordered Hospitalist MIPS Advance Care Plan I have confirmed that the patient's Advanced Care Plan is present, code status is documented, or surrogate decision maker is listed in patient medical record.: Yes Medication Reconciliation I have utilized all available resources to obtain, update and review the patients current medications (includes all prescriptions, OTC, herbals, cannabis, and nutritional supplements).: Yes
[2024-06-04] MEDS: CALCIUM/VITAMIN D 500 MG/5 MCG (200 I.U.) TABLET PO (09:11)
[2024-06-04] MEDS: NYSTATIN 100,000 UNITS/ML SUSP 5 ML ORAL.SUSP PO ×2 (09:11→12:04)
[2024-06-04] MEDS: hydrALAZINE HCL 25 MG TABLET PO ×2 (09:11→12:05)
[2024-06-04] MEDS: amLODIPine BESYLATE 5 MG TABLET PO (09:11)
[2024-06-04] MEDS: LIDOCAINE 5% PATCH 1 PATCH TRANSDERM (09:11)
[2024-06-04] MEDS: EPOETIN ALFA-EPBX 10,000 UNITS/ML VIAL 10000 UNITS SUB-Q (09:18)
[2024-06-04] MEDS: ACETAMINOPHEN ELIXIR 325 MG/10.15 ML UDC 650 MG PO (12:04)
[2024-06-04] MEDS: LORazepam (*CRX) 0.5 MG TABLET PO (12:05)
--- NOTE | 2024-06-04 13:20 | PM.PNGS ---
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 Assessment and Plan: cont G tube bolous feeds for now (2) Psoas abscess, right: Code(s): K68.12 - Psoas muscle abscess Status: Acute Assessment and Plan: cont drain and abx (3) MRSA (methicillin resistant staph aureus) culture positive: Code(s): Z22.322 - Carrier or suspected carrier of Methicillin resistant Staphylococcus aureus Status: Acute Assessment and Plan: await transfer to tertiary care facility for eval by neurosurgery and ID Subjective Subjective Date/Time Seen: 06/04/24 13:20 Interval history: pt seen and examined, denies any acute issues Review of Systems Review of Systems: All systems reviewed & are unremarkable except as noted in HPI and below Exam Const: General: cooperative, no acute distress, ill appearing and uncomfortable Resp: Auscultation: diminished lung sounds Cardio: Rate: regular rate Rhythm: regular rhythm GI: Inspection: normal to inspection, distended and incision GI Palp: Yes abdominal tenderness Other: G tube - C/D/I drain - minimal drainage Objective Data Vital Signs Vital Signs: Vital Signs - 24 hr 06/03/24 14:00 06/03/24 19:38 06/04/24 04:16 Temperature 36.3 C L 36.6 C 36.7 C Pulse Rate 68 71 69 Respiratory Rate 16 18 18 Blood Pressure 152/61 H 156/68 H 181/66 H Pulse Oximetry 97 98 97 Intake/Output Intake/Output: Intake & Output 06/01/24 06/02/24 06/03/24 06/04/24 23:59 23:59 23:59 23:59 Intake Total 2100 1130 1440 1310 Output Total 4443 823 8365 700 Balance 1100 520 -610 610 Meds/Results Medications: Active Medications Generic Name Dose Route Start Last Admin Trade Name Freq PRN Reason Stop Dose Admin Acetaminophen 650 mg 04/26/24 22:19 04/26/24 22:57 Acetaminophen 650 Mg Suppository RECTAL 650 mg Q6H PRN Administration Mild Pain (1-3) or Fever Acetaminophen 650 mg 05/05/24 10:27 06/04/24 12:04 Acetaminophen Elixir 325 Mg/10.15 Ml Udc PO 07/03/24 23:59 650 mg Q6H PRN Administration Mild Pain (1-3) or Fever Alteplase, Recombinant 2 mg 05/22/24 21:26 05/22/24 21:57 Alteplase 2 Mg Vial (Cathflo) IV PUSH 2 mg ONCE PRN Administration Line Occlusion Amlodipine Besylate 5 mg 05/27/24 12:15 06/04/24 09:11 Amlodipine Besylate 5 Mg Tablet PO 5 mg DAILY ROSY Administration Artificial Tears 1 drop 04/27/24 08:37 05/29/24 15:35 Artificial Tears Ophth Soln 15 Ml Bottle EACH EYE 1 drop QID PRN Administration Dry Eye(s) Atorvastatin Calcium 20 mg 04/30/24 09:00 Atorvastatin 20 Mg Tablet BY MOUTH DAILY [facility] Benzocaine 1 lozenge 05/15/24 15:35 05/21/24 12:14 Benzocaine/Menthol (*Bkc) 18 Ea Lozenge PO 1 lozenge PRN PRN Administration Sore Throat Calcium Carbonate 500 mg 05/19/24 08:00 06/04/24 09:11 Calcium/Vitamin D 500 Mg/5 Mcg (200 I.U.) Tablet PO 500 mg DAILY@0800 [facility] Administration Dextrose 12.5 gm 05/23/24 21:48 Dextrose 50% 25 Gm/50 Ml Syringe IV PUSH PRN PRN Hypoglycemia Protocol Dronabinol 2.5 mg 05/17/24 16:30 06/04/24 10:23 Dronabinol (*Crx) 2.5 Mg Capsule PO Not Given DAILY@1630 [facility] Enoxaparin Sodium 40 mg 05/25/24 09:00 05/26/24 09:47 Enoxaparin 40 Mg/0.4 Ml Syringe SUB-Q 40 mg DAILY [facility] Administration Epoetin Olu-epbx 10,000 units 05/14/24 11:05 06/04/24 09:18 Epoetin Olu-Epbx 10,000 Units/Ml Vial SUB-Q 10,000 units TUTHSA@09 [facility] Administration Glucagon 1 mg 05/23/24 21:48 Glucagon For Inj 1 Mg Vial IM PRN PRN Hypoglycemia Protocol Glucose 15 gm 05/23/24 21:48 Glucose Oral Gel 15 Gm Of Glucse In 37.5 Gm Tube PO PRN PRN Hypoglycemia Protocol Guaifenesin/Dextromethorphan 10 ml 05/15/24 10:07 05/22/24 01:23 Guaifenesin/Dextromethorphan 10 Ml Udc PO 10 ml Q4H PRN Administration Cough Hydralazine HCl 10 mg 04/25/24 08:00 06/04/24 03:43 Hydralazine Hcl 20 Mg/Ml Vial IV PUSH 10 mg Q4H PRN Administration Blood Pressure - High Hydralazine HCl 25 mg 06/04/24 09:00 06/04/24 12:05 Hydralazine Hcl 25 Mg Tablet PO 25 mg QID ROSY Administration Vancomycin HCl 1,000 mg in 250 mls @ 250 mls/hr 05/25/24 06:00 06/04/24 07:13 Vancomycin 1,000 Mg/Ns 250 Ml IVPB Infused Q24H ROSY Infusion Ipratropium [place] 0.5 mg 05/04/24 09:32 05/17/24 10:11 Ipratropium Br 0.02% Inh Soln 0.5 Mg/2.5 Ml Vial INHALATION 0.5 mg Q6HRT PRN Administration Shortness Of Breath Levalbuterol HCl 0.63 mg 05/04/24 09:32 05/17/24 10:11 Levalbuterol Neb 1.25 Mg/3 Ml INHALATION 0.63 mg Q6HRT PRN Administration Shortness Of Breath Lidocaine 1 patch 05/18/24 09:00 06/04/24 09:11 Lidocaine 5% Patch TRANSDERM 1 patch DAILY ROSY Administration Lisinopril 40 mg 05/20/24 15:05 06/02/24 09:46 Lisinopril 20 Mg Tablet BY MOUTH 40 mg DAILY ROSY Administration Lorazepam 0.5 mg 05/16/24 13:48 06/04/24 12:05 Lorazepam (*Crx) 0.5 Mg Tablet PO 0.5 mg Q6H PRN Administration Anxiety Miscellaneous Information 0 each 05/30/24 00:01 06/04/24 07:14 Clonidine Patch Order Will Auto Stop Before The 05/31 Dose. Please Renew Order If This Is XX 06/29/24 00:00 Not Given CLARIFY ROSY Miscellaneous Information 0 each 06/04/24 00:01 06/04/24 08:04 Please Renew Dronabinal- 10 Day [employer] For Controlled Substance XX 07/04/24 00:00 Not Given CLARIFY ROSY Nystatin 5 ml 06/02/24 13:00 06/04/24 12:04 Nystatin 100,000 Units/Ml Susp 5 Ml Oral.Susp PO 5 ml QID ROSY Administration Ondansetron HCl 4 mg 05/13/24 11:22 05/21/24 05:44 Ondansetron Inj 4 Mg/2 Ml Vial IV PUSH 4 mg Q6H PRN Administration Nausea And Vomiting Pantoprazole Sodium 40 mg 05/23/24 09:00 06/04/24 09:11 Pantoprazole 40 Mg Tablet PO Not Given QAM ROSY Sodium Chloride 10 ml 05/04/24 14:15 Central Line Flush IV PUSH PRN PRN with TPN bag changes Sodium Chloride 20 ml 05/04/24 14:15 05/25/24 04:29 Central Line Flush IV PUSH 20 ml PRN PRN Administration after blood draws Radiology Results: ITS Impressions Chest/Abdomen/Pelvis CTA 04/22/24 18:10 IMPRESSION: Perforated viscus with a large amount of free air and fluid, with mural thickening in the distal stomach and multiple punctate foci of extraluminal air in this area for which site of perforation is suspected. Renal Ultrasound 04/24/24 11:58 IMPRESSION: Simple cyst in the left kidney upper pole. Other appearances are unremarkable. Lower Extremity CTA 05/02/24 16:36 IMPRESSION: 1. Scattered atherosclerotic plaque in the arteries of the left lower limb as detailed above without a discrete hemodynamic significant stenosis. Runoff below the ankle in the left posterior tibial artery this supplies the foot. Atretic distal peroneal and anterior tibial arteries with intraluminal contrast becoming indiscernible at the level of the ankle and with no appreciable contrast in the dorsalis pedis artery. Upper GI Series 05/09/24 09:31 IMPRESSION: 1. Ulcer of the gastric antrum with contained extraluminal contrast similar to 04/28/2024. The extraluminal contrast distribution is worse than typically seen after [place] patch repair. Abdomen CT 05/09/24 15:27 IMPRESSION: Redemonstration of a tract extending from the posterior superior margin of the antrum of the stomach only partially filled with oral contrast, perhaps demonstrating early healing. Abdomen/Pelvis CT 05/17/24 09:03 Impression: Persistent wall thickening of the gastric antrum/duodenum with surrounding haziness, compatible postoperative change. There is persistent irregular tract with small amount of fluid and external air extending from the gastric antrum superiorly/anteriorly, which could reflect abscess or persistent contained perforation. No extraluminal contrast seen, and no oral contrast seen within this collection. Intramuscular hematoma of the right iliopsoas and psoas major muscles, with additional irregular hematoma extending to the posterior right retroperitoneum. Bilateral fat-containing inguinal hernias. Small bilateral pleural effusions. Chest/Abdomen/Pelvis CT 05/22/24 14:37 IMPRESSION: Nodular opacities in the right upper lobe and right middle lobe, likely representing small infectious/inflammatory foci. Segmental bibasilar atelectasis/consolidation. Small bilateral simple pleural effusions. Cardiomegaly with trace pericardial fluid. Peritoneal gas anterior to the stomach secondary to antral perforation, with possible small adjacent abscess or fistulous tract. Nonfluid density peritoneal and psoas collections, may represent complex ascites from bowel content, blood, or phlegmon, or combination thereof. Significant body wall edema. Hand X-Ray 05/23/24 13:08 IMPRESSION: 1. No acute fracture. 2. Likely chronic malalignment at the wrist and carpus including 1 cm ulnar minus variance and disruption of the proximal carpal row which is most likely sequela of old trauma. 3. 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 4. Multiple subarticular lucencies at the wrist and carpus most likely degenerative subchondral cyst although differential includes chronic erosion such as in the setting of gout. Cervical Spine MRI 05/26/24 17:21 IMPRESSION: 1. Prevertebral/retropharyngeal soft tissue swelling anterior to the mid to upper cervical spine with peripheral enhancing fluid collection potentially a small abscess just right of midline at the level of the base of the dens. Findings were discussed with Dashawn Stevens, the nurse caring for the patient, at 6:18 PM. 2. Severe cervical spondylosis with no evident discitis or osteomyelitis. Thoracic Spine MRI 05/26/24 17:45 IMPRESSION: 1. Moderate thoracic spondylosis with no evident discitis or ostomy myelitis. 2. Small bilateral pleural effusions with dependent atelectasis versus pneumonia in the bilateral lower lobes. Lumbar Spine MRI 05/26/24 17:53 IMPRESSION: 1. Severe lumbar spondylosis with prominent increased disc signal at L1-L2 through L4-L5. Increased fluid signal is likely artifact of feculent phenomena which is seen at the same levels on locations on the prior CT although could not absent exclude discitis given the presence of a nearby complex loculated right psoas muscle fluid collection with increased T1 signal suggesting this is due to hematoma although this could potentially be secondarily infected. Bone marrow signal remains normal with no measurable enhancement along the endplates but no appreciable edema to more specifically elevated concern for discitis or osteomyelitis. Would consider percutaneous abscess drainage with Gram stain and culture of the right psoas fluid collection. Findings were discussed with Dashawn Stevens, the nurse caring for the patient, at 6:[address] 05/27/24 17:21 IMPRESSION: 1. Successful CT-guided right psoas muscle fluid collection drainage catheter placement. 2. 5 mL fluid was sent for aerobic and anaerobic cultures. 3. The catheter will be managed by Dr. Aguiar. Chest X-Ray 05/29/24 16:33 IMPRESSION: Mild pulmonary edema. Segmental left and subsegmental right basilar atelectasis/consolidation. Possible small bilateral pleural effusions. Modified Barium Swallow 05/30/24 12:28 IMPRESSION: Oropharyngeal dysphagia with laryngeal penetration and silent aspiration. Please correlate with speech pathologist findings and specific feeding recommendations. Labs Labs: Laboratory Results - last 24 hr 06/04/24 04:29 WBC 8.0 RBC 3.12 L Hgb 9.3 L Hct 31.1 L MCV 99.7 MCH 29.8 MCHC 29.9 L RDW 17.1 H Plt Count 263 MPV 11.5 H Sodium 141 Potassium 3.8 Chloride 103 Carbon Dioxide 32 H Anion Gap 6 BUN 46 H Creatinine 1.34 H Estim Creat Clear Calc 58 Estimated GFR 52 L Glucose 110 Calcium 8.7 Total Bilirubin 0.3 AST 26 ALT 16 Alkaline Phosphatase 106 Total Protein 7.0 Albumin 3.0 L
[2024-06-04 14:00] VITALS: BP 170/68; PULSE 74; RESP 17; TEMP 36.5; O2SAT 97
--- NOTE | 2024-06-04 18:42 | P.TS_ITS ---
Transfer Discharge Sum: Prov Provider Date of admission: 04/22/24 18:45 Primary care physician: Ibrahima Bird MD Admitting clinician: Cachorro Dick MD Consults: 04/22/24 Consult to Physician Routine Comment: Consulting Provider: Albert Tony Reason for consultation: Circulatory shock, perforated abdominal viscus Has provider been notified: Yes Consult to Physician Routine Comment: Consulting Provider: Demarcus Moreno Reason for consultation: Perforated abdominal viscus, shock Has provider been notified: Yes 04/24/24 08:48 Consult to Physician Routine Comment: Consulting Provider: Jonathan Felix process laboratory specialist/MD group to consult: Nephrology Reason for consultation: RIC Has provider been notified: Yes 04/25/24 10:46 Consult to Dietitian Routine Reason for Consult:: TPN 05/22/24 08:35 Consult Infectious Disease Pharmacist Routine Comment: 05/22/24 08:40 Consult to Physician Routine Comment: Called exchange @ 09:16am () Consulting Provider: Ángel Oconnor process laboratory specialist/MD group to consult: cardiology Reason for consultation: persistent bacteremia, EMPERATRIZ Has provider been notified: Yes 05/27/24 Consult to Physician Routine Comment: Consulting Provider: Tyler Hand process laboratory specialist/MD group to consult: IR Reason for consultation: Fluid drainage for culture Has provider been notified: Yes 05/30/24 12:54 Consult Infectious Disease Pharmacist Routine Comment: DS: Admitting Diagnosis Discharge Date 06/04/24 Admitting Diagnosis Abdominal pain DS: Discharge Diagnosis Discharge Diagnosis (1) Sepsis: Code(s): A41.9 - Sepsis, unspecified organism Status: Resolved Assessment and Plan: sepsis resolved From psoas and prevertebral abscess Continue Vancomycin while waiting for [facility] transfer (2) Bacteremia: Code(s): R78.81 - Bacteremia Status: Acute Assessment and Plan: MRSA bacteremia from Psoas and prevertebral abscess Blood culture still positive on 05/24 repeat blood culture today Continue IV Vanc awaiting placement (3) Perforated abdominal viscus: Code(s): R19.8 - Other specified symptoms and signs involving the digestive system and abdomen Status: Acute Assessment and Plan: Septic shock from peritonitis with perforated gastric ulcer s/p laparotomy with repair repeat CT chest/AP nodular opacities in the right upper lobe and right middle lo be, peritoneal gas ant to stomach with possible small adjacent abscess or fistulous tract Surgery evaluated and noted not abscess is persistent finding not big enough for drainage Continue Peg Tube feeding for now. Gen surgery following (4) Pneumonia: Code(s): J18.9 - Pneumonia, unspecified organism Status: Acute Assessment and Plan: * Nodular opacities in the right upper lobe and right middle lobe, likely representing small infectious/inflammatory foci. 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 * Patient advanced to soft diet per General surgery recommendation * Continue to encourage po intake * Bolus tube feeding via G tube * add reglan and Marinol (6) Dysphagia: Code(s): R13.10 - Dysphagia, unspecified Status: Acute Assessment and Plan: * See plan above * continue tube feeding * Advance diet per Speech (7) Right wrist pain: Code(s): M25.531 - Pain in right wrist Status: Acute Assessment and Plan: * Patient started c/o of right wrist pain on 05/23 * Likely related to repeated blood culture attempts * XR hand RT 2V: No acute fracture. 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 Multiple subarticular lucencies at the wrist and carpus * Physical exam benign (8) Acute kidney injury superimposed on stage 3b chronic kidney disease: Code(s): N17.9 - Acute kidney failure, unspecified; N18.32 - Chronic kidney disease, stage 3b Status: Acute Assessment and Plan: resolved Creatinine 1.48, which is baseline (9) Pleural effusion: Code(s): J90 - Pleural effusion, not elsewhere classified Status: Acute Assessment and Plan: * Seen on CT * Chest x-ray dated compare * Likely due to 3rd spacing * Stable (10) Anemia: Code(s): D64.9 - Anemia, unspecified Status: Acute Assessment and Plan: Iron deficiency anemia on acute loss Stable * Trend CBC. * transfuse if hgb <7.0, or symptomatic * Iron replacement * hb 8.6 (11) HTN (hypertension): Code(s): I10 - Essential (primary) hypertension Status: Acute Assessment and Plan: Controlled * Continue Clonidine patch and Hydralazine PRN. * Trend BP (12) Generalized weakness: Code(s): R53.1 - Weakness Status: Acute Assessment and Plan: * PT/OT-maxi move use for transfer * Patient will likely need placement * No changes to current plan (13) Hypokalemia: Code(s): E87.6 - Hypokalemia Status: Acute Assessment and Plan: Improved * Trend labs * Replace as indicated (14) Hypernatremia: Code(s): E87.0 - Hyperosmolality and hypernatremia Status: Acute Assessment and Plan: Resolved Daily BMP Plan Possible Discitis vs osteomyelitis MRI spine showed increased disc signal at L1-2 through l4-5 also increase T1 signal with adjacent complex loculated right psoas muscle fluid collection, hematoma vs abscess Continue abx as above and abscess culture positive for Staph aureus Awaiting transfer to [facility] Psoas muscle and prevertebral cervical abscess MRI reviewed ELSA drain to psoas abscess and culture positive for Staph Aureus, sensitivity pending continue abscess drainage Blood culture still positive as of 05/27 repeat culture continue Vancomycin MRSA bacteremia from the above continue above care FTT/protein energy malnutrition patient on tube feeding since patient is more awake today and following commands Follow speech therapy continue monitoring DVT prophylaxis on Sq Lovenox Awaiting transfer to [facility] Transfer Discharge Sum: Med Medications Active and Home Medications: Home Medications aspirin 325 mg tablet 325 mg PO DAILY PRN fever 09/13/21 [History Confirmed 04/24/24] fexofenadine 180 mg tablet 180 mg PO DAILY PRN contact dermititis 09/13/21 [History Confirmed 04/24/24] gabapentin 300 mg capsule 600 mg PO Q12H 12/20/21 [History Confirmed 04/24/24] hydrochlorothiazide 25 mg tablet 25 mg PO DAILY 07/23/23 [History Confirmed 04/24/24] lisinopril 40 mg tablet See Rx Instructions .Route .COMPLEX #90 tabs 11/09/23 [Rx Confirmed 04/23/24] furosemide 40 mg tablet 40 mg PO QAM #90 tabs 02/03/24 [Rx Confirmed 04/23/24] tramadol 50 mg tablet 50 mg PO Q4H PRN pain #90 tabs 02/08/24 [Rx Confirmed 04/23/24] diclofenac sodium 75 mg tablet,delayed release See Rx Instructions .Route .COMPLEX #180 tabs 02/16/24 [Rx Confirmed 04/23/24] atorvastatin 20 mg tablet See Rx Instructions .Route .COMPLEX #90 tabs 03/06/24 [Rx Confirmed 04/23/24] Transfer Discharge Sum: Hosp Hospital Course Hospital course: On 04/22 Ludin Menon is a 78 year old male with a past medical history of the osteoarthritis on chronic NSAID therapy, hyperlipidemia, hypertension, prior umbilical hernia repair, perforated appendix status post resection 2022 who presented to the ER via EMS with 3 days of sharp radiating abdominal pain. Initial blood pressure on EMS arrival to the scene was 104 systolic and blood sugar was 114. Patient was satting 90% on room air at home. On arrival to the ER the patient was markedly hypotensive with systolic blood pressures of 62/53. He had a normal white count but his % bands were 60%. BMP demonstrated acute kidney injury on chronic kidney disease creatinine increased from 1.4-4.15 and potassium of 6.3 with a serum bicarb slightly decreased at 21. His D-dimer was elevated. The patient's lactic acid was 5.4. He received a 30 mL/kilos bolus and 2 units of packed red blood cells in the ER and he was sent for stat CT of the chest abdomen and pelvis. CT demonstrated perforated viscus with large amount of free air and fluid with mural thickening of the distal stomach and multiple punctate foci of extraluminal air with suspected perforated ulcer. Patient was evaluated by the surgeon in the ER was taken directly to the OR. In the ER patient received 2.3 L of isotonic fluids and albumin. He was started on Levophed due to persistent hypotension arrived to the ICU on Levophed 5 mcg minute. Her repeat BMP was performed postoperatively and patient was found to be persistently hyperkalemic at that time he received amps of bicarb, calcium, insulin and glucose. His ABG in PACU demonstrated mild Ellik acidosis. The patient was on pressure support ventilation at the time with high volumes of 600 and rate of 12 with 100% FiO2. Patient arrived to the ICU not on sedation and not responsive to painful stimuli. He is intubated with ET tube at 25 at the [facility]. Anesthesiology reported that the patient had over 2 L of gastric contents within the peritoneal space. Operative note not available for review. Prolonged hospitalization from 04/23-06/04 I () assumed care on 05/31 Brief hospital course: On 04/23 Exploratory laparotomy with repair of antral gastric ulcer with omental Clarence patch.Placement of open gastrostomy tube.Gastrotomy tube was placed in OR during surgery since anaesthesia was not able to place NG tube. During the course of hospitalization patient had evidence of cold leg and underwent CTA on 05/02/24 and no evidence of sever occlusion and started on AC. On 05/26 blood culture did return MRSA. Patient started on vancomycin. Cardiol velasquez unable to perform EMPERATRIZ. Repeat blood culture on 05/28, 0 05/29, and 0 05/30 shows no growth to date. Patient BC shows MRSA and was treated with Vancomycin. Eventually 05/26 performed MRI lumbar shows hematoma/abscess and Perc drain was placed. Cervical spine MRI:1. Prevertebral/retropharyngeal soft tissue swelling anterior to the mid to upper cervical spine with peripheral enhancing fluid collection potentially a small abscess just right of midline at the level of the base of the dens. 2. Severe cervical spondylosis with no evident discitis or osteomyelitis. Thoracic spine MRI:1. Moderate thoracic spondylosis with no evident discitis or ostomy myelitis. 2. Small bilateral pleural effusions with dependent atelectasis versus pneumonia in the bilateral lower lobes. Lumbar MRI:1. Severe lumbar spondylosis with prominent increased disc signal at L1-L2 through L4-L5. Increased fluid signal is likely artifact of feculent phenomena which is seen at the same levels on locations on the prior CT although could not absent exclude discitis given the presence of a nearby complex loculated right psoas muscle fluid collection with increased T1 signal suggesting this is due to hematoma although this could potentially be secondarily infected. Bone marrow signal remains normal with no measurable enhancement along the endplates but no appreciable edema to more specifically elevated concern for discitis or osteomyelitis. Would consider percutaneous abscess drainage with Gram stain and culture of the right psoas fluid collection On 05/27 patient underwent 1. Successful CT-guided right psoas muscle fluid collection drainage catheter placement. 5 mL fluid was sent for aerobic and anaerobic cultures. The catheter will be managed by Dr. Cosme Gorman accepted the patient.[facility] denied transfer. [facility] accepted the patient by Time Spent with Patient Time attestation: Total time spent providing and/or coordinating transfer services:45 minutes Exam Narrative: General: Comfortable at bedside HEENT: normocephalic, atraumatic. Mucous membranes moist. EOMI, PERRLA, bilateral sclera anicteric, no conjunctival injection. Respiratory: clear to auscultation bilaterally. No rales/rhonic/wheezes. Cardiovascular: Regular rate and rhythm, normal S1-S2 upon auscultation. No murmurs, rubs, or clicks. Capillary refill less than 3 second. Abdomen: Soft, round, no pulsatile masses, nondistended and nontender. No rebound, no guarding. Bowel sounds present to all four quadrants. No high pitch or tinkling sounds. Extremities: 2 + edema to both LE. No cyanosis, clubbing present. Pulses are palpable 2/2. Active ROM to all four extremities. Neuro: Alert and orientated x 4. PERRLA. Cranial nerves 2-12 intact without focal deficit. Skin: Warm, dry, and intact, without rash, erythema, or lesion. Psych: pleasant, cooperative, normal speech, normal affect, no hallucinations, no dysarthria Skin: G-tube site clean with G-tube in place and clamped. Gauze dressing in place in the right upper quadrant and left upper quadrant from previous ELSA drains, gauze dressing dry and intact. Const: General: comfortable, no acute distress, lethargic, patient obtunded, uncomfortable, obese, overweight and edematous; No confusion Nutritional Appearance: obese, overweight and edematous Orientation/consciousness: oriented to person, oriented to place, patient oriented x3, No confusion, patient obtunded, lethargic and Other orientation findings (intubated) Other: Acutely ill-appearing, obese HENMT: Ears: TM's normal bilaterally Face/Nose/Sinus: Normal nares present Mouth: Yes moist mucous membranes Other: Mucous membranes are dry, head is normocephalic atraumatic, few missing teeth, bridge in the lower jaw Eyes: General: appearance normal, both eyes and all related structures Sclera: sclerae normal Pupils: Equal, round and reactive pupils present EOM: EOMs intact bilaterally Other: Pupils are equal and reactive, no scleral icterus Neck: Neck: supple and no JVD Other: No JVD, trachea midline Resp: Effort & Inspection: normal respiratory effort Auscultation: clear to auscultation bilaterally and diminished lung sounds Other: Cardio: Rate: regular rate Rhythm: regular rhythm Other: Telemetry SR 85. GI: Inspection: normal to inspection, Abdominal wall edema bilateral, non-distended, incision (well healed), obesity, no visible herniation and other (Psoas pigtail drain with dark bloody output) Auscultation: normal bowel sounds Other: Gastrostomy tube in place with dry gauze dressing and skin around the G-tube without erythema or drainage. Incision dry with steri strips intact, no erythema. Slightly distended. : Other: Bowman catheter in place was a small amount of turbid yellow urine Urinary Catheter: Urinary Catheter: patent and draining Skin: General skin exam: normal color and no rashes or lesions noted Other: Generally cold to touch, 2nd cap refill, fingers and toes are cyanotic Neuro: General: oriented to person, oriented to place, patient oriented x3, gait normal, moves all extremities, no focal motor deficits, No confusion and patient obtunded Cranial nerves: Yes Equal, round and reactive pupils present Speech: normal speech Motor exam (neuro): 5/5 motor strength present throughout Sensory Exam: normal sensation Other: Pupils are reactive, equal Extrem: General: pedal edema bilaterally 2+ Right upper extremity: normal capillary refill and edema Left upper extremity: normal capillary refill and edema Right lower extremity: edema Left lower extremity: edema Other: 2+PP bilateral feet are warm. Psych: Mental Status: mental status grossly normal Affect: normal affect Other: Unable to assess due to patient condition DS: Data Data Completed and Pending Labs on day of discharge: Labs from last 24 hours 06/04/24 04:29 WBC 8.0 RBC 3.12 L Hgb 9.3 L Hct 31.1 L MCV 99.7 MCH 29.8 MCHC 29.9 L RDW 17.1 H Plt Count 263 MPV 11.5 H Sodium 141 Potassium 3.8 Chloride 103 Carbon Dioxide 32 H Anion Gap 6 BUN 46 H Creatinine 1.34 H Estim Creat Clear Calc 58 Estimated GFR 52 L Glucose 110 Calcium 8.7 Total Bilirubin 0.3 AST 26 ALT 16 Alkaline Phosphatase 106 Total Protein 7.0 Albumin 3.0 L Preliminary micro results at discharge 05/30/24 12:40 Blood Culture - Preliminary Blood 05/30/24 11:27 Blood Culture - Preliminary Blood
== END 2024-06-04 16:15 | disposition short-term general hospital (02) | DRG 853 ==
LOC: ANHED 18:38 → ANHSURGERY 18:40 → ANHICU 18:57 → ANHIMU 04-27 05:47 → ANH2MED 05-01 22:21
PROVIDERS: Anesthesiology; General Practice; Internal Medicine; Internal Medicine Nephrology; Nurse Practitioner; Nurse Practitioner Acute Care; Nurse Practitioner Family; Nurse Practitioner Gerontology; Physician Assistant; Radiology Diagnostic Radiology; Surgery; Admitting Provider Hospitalist; Emergency Provider Student in an Organized Health Care Education/Training Program; PCP Family Medicine Adolescent Medicine; Visit Provider General Practice
PROC: 0D9600Z Drainage of Stomach with Drainage Device, Open Approach (ICD-10-PCS; CPT 49000; principal; 2024-04-22 19:30)
PROC: 0K9N30Z Drainage of Right Hip Muscle with Drainage Device, Percutaneous Approach (ICD-10-PCS; CPT 75989; principal; 2024-05-27 15:00)
DX: A41.9 Sepsis, unspecified organism (principal); G06.1 Intraspinal abscess and granuloma; J18.9 Pneumonia, unspecified organism; J96.00 Acute respiratory failure, unspecified whether with hypoxia or hypercapnia; K25.5 Chronic or unspecified gastric ulcer with perforation; K63.1 Perforation of intestine (nontraumatic); R57.8 Other shock; R65.21 Severe sepsis with septic shock; N17.0 Acute kidney failure with tubular necrosis; K65.8 Other peritonitis; K68.12 Psoas muscle abscess; K91.2 Postsurgical malabsorption, not elsewhere classified; E87.21 Acute metabolic acidosis; E87.0 Hyperosmolality and hypernatremia; T81.42XA Infection following a procedure, deep incisional surgical site, initial encounter; M96.841 Postprocedural hematoma of a musculoskeletal structure following other procedure; J90 Pleural effusion, not elsewhere classified; M46.26 Osteomyelitis of vertebra, lumbar region; R78.81 Bacteremia; I12.9 Hypertensive chronic kidney disease with stage 1 through stage 4 chronic kidney disease, or unspecified chronic kidney disease; T39.395A Adverse effect of other nonsteroidal anti-inflammatory drugs [NSAID], initial encounter; N18.32 Chronic kidney disease, stage 3b; E87.5 Hyperkalemia; E78.5 Hyperlipidemia, unspecified; I70.222 Atherosclerosis of native arteries of extremities with rest pain, left leg; M48.061 Spinal stenosis, lumbar region without neurogenic claudication; M19.90 Unspecified osteoarthritis, unspecified site; M70.61 Trochanteric bursitis, right hip; G57.00 Lesion of sciatic nerve, unspecified lower limb; Z90.49 Acquired absence of other specified parts of digestive tract; Z79.1 Long term (current) use of non-steroidal anti-inflammatories (NSAID); E66.9 Obesity, unspecified; Z68.37 Body mass index [BMI] 37.0-37.9, adult; D63.1 Anemia in chronic kidney disease; E87.6 Hypokalemia; D50.9 Iron deficiency anemia, unspecified; Z22.322 Carrier or suspected carrier of Methicillin resistant Staphylococcus aureus; R13.10 Dysphagia, unspecified; M25.531 Pain in right wrist; M46.46 Discitis, unspecified, lumbar region; B95.62 Methicillin resistant Staphylococcus aureus infection as the cause of diseases classified elsewhere
CPT/HCPCS: 36415; 36430; 36569; 36600; 71045; 71046; 71250; 71275; 72156; 72157; 72158; 73120; 73706; 74150; 74174; 74176; 74240; 75989; 76775; 80048; 80053; 80069; 80202; 81001; 82274; 82375; 82436; 82533; 82550; 82565; 82570; 82607; 82728; 82746; 82805; 82948; 83050; 83540; 83550; 83605; 83735; 83880; 84100; 84133; 84145; 84156; 84300; 84466; 84478; 84540; 85014; 85018; 85025; 85027; 85046; 85055; 85380; 85384; 85610; 85730; 85999; 86850; 86900; 86901; 86923; 87040; 87070; 87075; 87086; 87181; 87205; 87641; 92523; 92526; 92610; 92611; 93306; 93308; 94002; 94003; 94640; 94667; 96365; 96375; 97110; 97162; 97163; 97164; 97166; 97530; 97535; 99285; A9270; A9579; C1729; C1751; C1769; J0360; J0612; J0692; J1100; J1450; J1644; J1650; J1720; J1756; J1815; J1836; J1938; J1939; J1940; J1956; J2003; J2060; J2248; J2250; J2270; J2405; J2470; J2543; J2704; J2765; J2997; J3010; J3370; J3480; J7030; J7040; J7050; J7070; J7120; P9016; P9047; Q5105; Q9967

== ENCOUNTER 2024-06-30 18:04 | Emergency (ER) | payer MEDICARE, SELFPAY ==
[2024-06-30] VITALS (9 sets, daily range): BP systolic 125–152; BP diastolic 59–72; PULSE 80–96; RESP 16–23; TEMP 36.6–36.8; O2SAT 99–100
--- NOTE | ~2024-06-30 | XR_ITS ---
CHEST RADIOGRAPH CLINICAL HISTORY: verify existing PICC line . COMPARISON: 05/29/2024 TECHNIQUE: Single portable view of the chest. FINDINGS Right upper extremity PICC line identified with its tip projecting over the cavoatrial junction. The remainder of the cardiomediastinal silhouette is otherwise unremarkable. Elevation of the left hemidiaphragm with adjacent compressive atelectasis. Increased interstitial markings are identified bilaterally, findings suggesting mild pulmonary vascul ar congestion. The lungs are otherwise clear IMPRESSION: Mild pulmonary vascular congestion without focal infiltrate or effusion. Reviewed, dictated and finalized at location A.
[2024-06-30 18:37] LABS: Basophils Absolute Auto 0.1 K/mm3 (0.0-0.1); Basophils Percent Auto 0.4 % (0.2-1.2); Eosinophils Absolute Auto 1.2 K/mm3 (0-0.3); Eosinophils Percent Auto 10.5 % (0-4.4); Hemoglobin 9.3 g/dL (14.0-18.0); Immature Granulocyte Absolute 0.08 K/mm3 (0.00-0.031); Immature Granulocyte Percent A 0.7 % (0-0.5); Lymphocytes Absolute Auto 1.94 K/mm3 (0.9-3.2); Lymphocytes Percent Auto 16.7 % (18.3-44.2); Mean Corpuscular Hemoglobin 29.2 pg (26-34); Mean Platelet Volume 10.9 fl (7.4-10.4); Monocytes Absolute Auto 0.6 K/mm3 (0.1-0.6); Monocytes Percent Auto 5.4 % (2.6-8.5); Neutrophils Absolute Auto 7.7 K/mm3 (1.3-6.7); Neutrophils Percent Auto 66.3 % (45.5-73.1); Platelet Count Result 277 k/mm3 (150-375); Red Blood Count 3.19 M/mm3 (4.6-6.20); Red Cell Distribution Width 15.1 % (11.5-14.5); White Blood Count 11.6 K/mm3 (4.5-10.0)
[2024-06-30 18:46] LABS: Alanine Aminotransferase 14 U/L (6-50); Albumin Level 3.5 g/dL (3.5-5.1); Alkaline Phosphatase 110 U/L (38-126); Anion Gap 8 mmol/L (4-12); Aspartate Amino Transferase 20 U/L (17-59); Bilirubin,Total 0.3 mg/dL (0.2-1.3); Blood Urea Nitrogen 45 mg/dL (9-20); Calcium 8.7 mg/dL (8.4-10.2); Carbon Dioxide 26 mmol/L (22-30); Chloride 98 mmol/L (98-107); Estimated CRCL calculation 48 ml/min; Estimated Glomerular Filt Rate 43; Glucose 121 mg/dL (65-110); Potassium 4.7 mmol/L (3.4-5.0); Sodium 132 mmol/L (137-145)
--- NOTE | 2024-06-30 19:08 | ED.RECABL ---
HPI - Recheck/Abnormal Lab/Rx General Chief Complaint: Recheck/Abnormal Lab/Rx Stated Complaint: abn labs Time Seen by Provider: 06/30/24 19:06 Source: patient and family Mode of arrival: EMS Limitations: physical limitation History of Present Illness HPI narrative: Patient presents with concern for an abnormal lab. Patient had labs drawn outpatient at the rehab facility this morning and was told that the resulted with a potassium 6.2. Patient otherwise has no complaints. Family notes that he has been improving with rehab including getting movement in his left lower extremity as well as his right foot and common well in the emergency department seems to be getting some sensation back at the right thigh. He has had multiple procedures recently with multiple tubes/devices in place including a spinal abscess drainage with remaining drain collecting system, Bowman catheter, PICC line, and feeding tube. He originally had surgery on 04/22/2024. Location a perforated ulcer. He is currently on antibiotics including vancomycin for the spinal abscess infection which grew Staph/MRSA. Family has questions about the timing of the removal of a lot of these devices. Patient was sent due to the hyperkalemia especially given underlying renal dysfunction and concern for possible renal toxicity in the setting of vancomycin Related Data Home Medications ?Medication ?Instructions ?Recorded ?Confirmed ?Last Taken ?Type aspirin 325 mg tablet 325 mg PO DAILY PRN fever 09/13/21 06/30/24 06/30/24 History fexofenadine 180 mg tablet 180 mg PO DAILY PRN contact 09/13/21 04/24/24 Unknown History dermititis gabapentin 300 mg capsule 600 mg PO Q12H 12/20/21 04/24/24 Unknown History hydrochlorothiazide 25 mg tablet 25 mg PO DAILY 07/23/23 04/24/24 Unknown History amlodipine 10 mg tablet 10 mg PO DAILY 06/30/24 06/30/24 06/30/24 History benzonatate 200 mg capsule 200 mg PO TID 06/30/24 06/30/24 06/30/24 History Allergies Allergy/AdvReac Type Severity Reaction Status Date / Time cephalexin Allergy Severe Rash Verified 06/30/24 18:53 nickel Allergy Mild Other Verified 06/30/24 18:53 cetirizine (From Zyrtec) Allergy Unknown Unknown Verified 06/30/24 18:53 [facility] Past Medical History Medical History Uses feeding tube MRSA infection Perforated gastric ulcer (04/2024) Repair 05/03 PAD (peripheral artery disease) Acute perforated appendicitis Piriformis syndrome Trochanteric bursitis, right hip Lumbar stenosis Low Back Pain Arthritis Colon polyps (07/02/22) Umbilical hernia HTN (hypertension) Hypercholesterolemia Surgical History Surgical History History of abdominal surgery (04/2024) Repair perforated gastric ulcer History of appendectomy (06/2022) Perforated appemdix H/O Spinal surgery (1984) H/O umbilical hernia repair (2011) Hx of tonsillectomy Family History Family History Father Acute myocardial infarction Heart disease Alzheimer disease Mother Acute myocardial infarction Heart disease Alzheimer disease Social History Social History (Updated 06/30/24 @ 19:45 by Pamela Donald MD) Social History: Code status: Full code; POLST signed 06/14/24 Surrogate decision maker: Erika () Smoking status: Never smoker Second hand tobacco smoke exposure: Yes Alcohol intake: never Alcohol use details: Occasional Substance use: never Substance use type: does not use Lack of Transportation: No Lack of Food: Never True Current Housing: I Have Housing Concerned About Future Housing: No Difficulty Paying Gas/Electric Bills: No Difficulty Paying for Meds: No Currently Unemployed: No Education: Master's Degree or Higher Difficulty w/ Childcare or Family Care: No Living arrangements: intermediate Additional living arrangements comments: previously with family, currently rehab facility Occupation/Education: retired Gender identity (if verbalized by the patient): Male Spiritual care concerns: No Agree to blood products: Yes Exam Narrative: GENERAL: Well-appearing, well-nourished, and in no acute distress. HEAD: Normocephalic, atraumatic. EYES: Non injected, non icteric ENT: Nares clear, no rhinorrhea or epistaxis. Gross auditory acuity intact. NECK: Supple. No meningismus. CHEST: Speaking in full sentences. No respiratory distress. HEART: Regular rate and rhythm. . ABDOMEN: Soft, mildly distended. No rigidity or guarding. Not peritoneal. No tenderness to palpation. Feeding tube in place. EXTREMITIES: Bilateral lower extremity compartments soft. No erythema, palpable cord. PICC line right upper extremity. : Bowman draining appropriately colored urine SKIN: Warm, dry. BACK: Bloody drainage collection in bag from spine. NEURO: Alert and oriented. Answering questions. Following commands. Normal speech without aphasia or dysarthria. Sensation intact at bilateral thighs. PSYCH: Normal mood and affect. Course Vital Signs Vital signs: Vital Signs Pulse Rate 88 06/30/24 18:11 Respiratory Rate 20 06/30/24 18:11 Blood Pressure 143/69 H 06/30/24 18:11 Pulse Oximetry 100 06/30/24 18:11 Oxygen Delivery Room Air 06/30/24 18:11 Temperature 97.8 F 06/30/24 19:43 Pulse Rate 85 06/30/24 19:31 Respiratory Rate 16 06/30/24 19:43 Blood Pressure 150/72 H 06/30/24 19:43 Pulse Oximetry 100 06/30/24 19:43 Oxygen Delivery Room Air 06/30/24 18:11 MDM - Recheck/Abnormal Lab/Rx MDM Narrative Medical decision making narrative: Patient sent to the emergency department due to concern for outpatient labs which showed potassium of 6.2. In the emergency department he is afebrile (observed RN obtain) with acceptable vital signs, mild hypertension. Creatinine consistent with baseline CKD. Mild leukocytosis. Potassium normal here. Patient provided referral contact information for his original general surgeon who placed G-tube as well as for a urologist, the latter for trial of void. I encouraged patient and family to call for outpatient follow-up though indicated that these are not urgent. This at the time of patient to be discharged, heart rate was flagging in the 140s-160s though it does appear to be double counting T-waves. EKG ordered but normal as below. Thoroughly discussed the indication for sending patient to the emergency department and the concern but that lab was normal today. Family reassured. Stable for discharge. Will require EMS transportation back to rehab facility due to being essentially paralyzed in LEs. Lab Data Attestation: I reviewed the patient's lab results. 06/30/24 18:24 06/30/24 18:24 Labs: Lab Results 06/30/24 Range/Units 18:24 WBC 11.6 H (4.5-10.0) K/mm3 RBC 3.19 L (4.6-6.20) M/mm3 Hgb 9.3 L (14.0-18.0) g/dL Hct 30.0 L (42.0-52.0) % MCV 94.0 (80-100) fl MCH 29.2 (26-34) pg MCHC 31.0 L (32-36) g/dl RDW 15.1 H (11.5-14.5) % Plt Count 277 (150-375) k/mm3 MPV 10.9 H (7.4-10.4) fl Immature Gran % (Auto) 0.7 H (0-0.5) % Neut % (Auto) 66.3 (45.5-73.1) % Lymph % (Auto) 16.7 L (18.3-44.2) % [place] % (Auto) 5.4 (2.6-8.5) % Eos % (Auto) 10.5 H (0-4.4) % Baso % (Auto) 0.4 (0.2-1.2) % Lymph # (Auto) 1.94 (0.9-3.2) K/mm3 [place] # (Auto) 0.6 (0.1-0.6) K/mm3 Eos # (Auto) 1.2 H (0-0.3) K/mm3 Baso # (Auto) 0.1 (0.0-0.1) K/mm3 Abs Immat Gran (auto) 0.08 H (0.00-0.031) K/mm3 Absolute Neuts (auto) 7.7 H (1.3-6.7) K/mm3 Absolute Nucleated RBC 0.000 (0.0-0.012) K/mm3 Nucleated RBC % 0.0 (0.0-0.2) % Sodium 132 L (137-145) mmol/L Potassium 4.7 (3.4-5.0) mmol/L Chloride 98 (98-107) mmol/L Carbon Dioxide 26 (22-30) mmol/L Anion Gap 8 (4-12) mmol/L BUN 45 H (9-20) mg/dL Creatinine 1.57 H (0.7-1.3) mg/dL Estim Creat Clear Calc 48 ml/min Estimated GFR 43 L (59 - ) Glucose 121 H (65-110) mg/dL Calcium 8.7 (8.4-10.2) mg/dL Total Bilirubin 0.3 (0.2-1.3) mg/dL AST 20 (17-59) U/L ALT 14 (6-50) U/L Alkaline Phosphatase 110 (38-126) U/L Total Protein 7.0 (6.3-8.2) g/dL Albumin 3.5 (3.5-5.1) g/dL ECG Data EKG #1: Attestation: I personally reviewed and interpreted this ECG as follows: ECG completion date: 06/30/24 ECG completion time: 19:48 Interpretation: Normal sinus rhythm at a rate of 84 beats per minute. UT interval 172. QRS 101. QT/QTC 357/398. Good R-wave progression across the precordial leads. No T-wave inversions. T-waves are approximately the same level as QRS complexes in lateral precordial leads however otherwise appropriate, not peaked Discharge Plan Discharge Clinical Impression: CKD (chronic kidney disease), Pulmonary vascular congestion, Routine lab draw Patient Disposition: [facility] Skilled Nursing/Asst Living Condition: Stable Instructions: Antibiotic Form, Chronic Kidney Disease (ED), Chronic Kidney Disease Diet (DC) Additional Instructions: As we discussed, your potassium was normal, 4.7 here today and it might of been elevated for the reasons we discussed, hemolysis. There is concern because you are on an antibiotic and have underlying kidney dysfunction however his kidney function is stable from previous. Follow-up with your care team including the specialists. Return to the emergency department with new or worsening symptoms Patient Language: Czech Prescriptions: No Action fexofenadine 180 mg tablet 180 mg PO DAILY PRN (Reason: contact dermititis) aspirin 325 mg tablet 325 mg PO DAILY PRN (Reason: fever) gabapentin 300 mg capsule 600 mg PO Q12H hydrochlorothiazide 25 mg tablet 25 mg PO DAILY Dose Instruction: TAKE 1 TABLET BY MOUTH DAILY Rx Instructions: TAKE 1 TABLET BY MOUTH DAILY amlodipine 10 mg tablet 10 mg PO DAILY benzonatate 200 mg capsule 200 mg PO TID lisinopril 40 mg tablet See Rx Instructions .ROUTE .COMPLEX Qty: 90 2RF Dose Instruction: TAKE 1 TABLET BY MOUTH EVERY DAY Rx Instructions: TAKE 1 TABLET BY MOUTH EVERY DAY furosemide 40 mg tablet 40 mg PO QAM Qty: 90 2RF tramadol 50 mg tablet 50 mg PO Q4H PRN (Reason: pain) Qty: 90 2RF diclofenac sodium 75 mg tablet,delayed release (DR/EC) See Rx Instructions .ROUTE .COMPLEX Qty: 180 2RF Dose Instruction: TAKE 1 TABLET BY MOUTH TWICE DAILY Rx Instructions: TAKE 1 TABLET BY MOUTH TWICE DAILY atorvastatin 20 mg tablet See Rx Instructions .ROUTE .COMPLEX Qty: 90 2RF Dose Instruction: TAKE 1 TABLET BY MOUTH EVERY DAY Rx Instructions: TAKE 1 TABLET BY MOUTH EVERY DAY Follow-up/Referrals: Aleksander Peñaloza MD [Physician] - (urologist for follow up; trial of void) Demarcus Moreno MD [Physician] - (general surgeon who placed G tube) Ibrahima Bird MD [Primary Care Provider] - Stand Alone Forms: Assisted Discharge Time of Disposition: 19:56
--- NOTE | 2024-06-30 19:35 | PC.NURSE ---
Received report from KELBY Neal for cont. of care. Pt AOX4 lying on stretcher respirations even and unlabored. Pt updated on plan of care, appears in NAD.
--- NOTE | 2024-06-30 19:43 | ECG_ITS ---
Test Date: 2024-06-30 19:48:40 Measurements Intervals [place] Rate: 84 P: 30 WV: 172 QRS: -11 QRSD: 101 T: 46 QT: 357 QTc: 424 Interpretive Statements SINUS RHYTHM No previous ECG available for comparison Electronically Signed On 07-01-2024 12:40:35 CDT by Karmen Angel M.D.
--- OUTSIDE RECORDS SUMMARY | 2024-06-30 20:04 | XMS_ITS | Clinical Summary ---
Author Organization [facility] Address [address] [place] [address] Care Team Providers Care Road Supervisor Of Engines Name Role Phone Ibrahima Bird MD Primary Care Provider + Source Comments [facility],non-owned Affiliates and Associated Physician Practices is amultiple site organization consisting of ambulatory clinics and hospital sitesin [place], [place], [place] and [place]. This disclosure is being madepursuant to the Care Everywhere program and may not contain all information available regarding this patient. Last updated 17.[facility] Allergies Active Allergy Reactions Criticality Noted Date Comments Cephalexin Rash Medium 06/04/2024 Nickel Rash Medium 06/04/2024 Medications * Be aware that medications may not be up to date on this document. Alwaysverify current medications with the patient. aspirin (Aspirin) 325 MG tablet Take 1 (one) tablet by mouth once daily Active fexofenadine (Nury) 180 MG tablet Take 1 (one) tablet by mouth once daily as needed for Runny Nose or Allergies Active gabapentin (Neurontin) 300 MG capsule Take 2 (two) capsules by mouth 2 times daily Active hydroCHLOROthi azide (Hydrodiuril) 25 MG tablet Take 1 (one) tablet by mouth once daily Active lisinopril (Prinivil; Zestril) 40 MG tablet Take 1 (one) tablet by mouth once daily Active furosemide (Lasix) 40 MG tablet Take 1 (one) tablet by mouth once daily Active atorvastatin (Lipitor) 20 MG tablet Take 1 (one) tablet by mouth at bedtime Active ferrous sulfate 325 (65 FE) MG tablet Take 1 (one) tablet by mouth once daily after lunch 5 Active vancomycin 750 mg in NaCl IV 0.9 % 250 mL 750 (seven hundred fifty) mg by Intravenous route every 24 hours 5 Active oxyCODONE, immediate release, (Roxicodone) 5 MG tabletIndicati ons: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 May reapply a new patch 12 hours later. 5 Active amLODIPine (Norvasc) 5 MG tablet Take 1 (one) tablet by mouth once daily 5 06/15/19 25 Discontin ued(Clini mary jo Decision) Active Problems Problem Noted Date Diagnosed Date Hypoalbuminemia 06/14/2024 Normocytic anemia 06/14/2024 Dyslipidemia 06/14/2024 Acute osteomyelitis of cervical spine 06/14/2024 Assessment & Plan (06/14/2024 12:57 PM CDT): -OSH blood cx + for MRSA, last positive cultures 05/27 -Psoas culture also pos for MRSA -s/p OSH IR drain placement for psoas abscess -TTE negative, EMPERATRIZ not due to Gi risk factors. Unclear source, possible endocarditis as unable to perform EMPERATRIZ -b/l wrist CT and XR only with severe arthritic changes -Currently psoas drain draining well, f/u [facility] IR for drain maintenance. -Small c spine abscess seen on MRI 05/26 at OSH at base of dens -Possible L1-5 discitis/OM on MRI L sine 05/26 -Repeat MRI spine repeated (10 days after the OSH one) and didn't reveal any cervical abscess but with evidence of lumbar discitis and psoas abscess. Also chronic severe lumbar stenosis on L3/4 and L4/5. -ortho spine consulted: Due to ongoing infection didn't recommend any immediate intervention. Outpt f/u confirmed -PT/OT recs SNF Antibiotic therapy. Course duration: 6 weeks; end date: 07/21/2024. - Continue vancomycin 750 mg Q 24 hrs IV. Trough goal: 15-20 mg/L. - Serial laboratory monitoring of kidney function required while on vancomycin IV. Osteoarthritis of both wrists 06/07/2024 Assessment & Plan (06/14/2024 11:26 AM CDT): -wrist pain and swelling, xrays done. Low suspicion of septic wrist arthritis, bilateral wrist braces for comfort BUE WBAT. - bilateral pancarpal osteoarthritis of wrists , Assessment & Plan (06/13/2024 10:04 AM CDT): -wrist pain and swelling, xrays done. Low suspicion of septic wrist arthritis, bilateral wrist braces for comfort BUE WBAT. - bilateral pancarpal osteoarthritis of wrists , Assessment & Plan (06/12/2024 7:55 AM CDT): -wrist pain and swelling, xrays done. Low suspicion of septic wrist arthritis, bilateral wrist braces for comfort BUE WBAT. - bilateral pancarpal osteoarthritis of wrists , Assessment & Plan (06/11/2024 10:18 AM CDT): -wrist pain and swelling, xrays done. Low suspicion of septic wrist arthritis, bilateral wrist braces for comfort BUE WBAT. - bilateral pancarpal osteoarthritis of wrists , Assessment & Plan (06/10/2024 10:08 AM CDT): -wrist pain and swelling, xrays done. Low suspicion of septic wrist arthritis, bilateral wrist braces for comfort BUE WBAT. - bilateral pancarpal osteoarthritis of wrists , Assessment & Plan (06/09/2024 1:40 PM CDT): -wrist pain and swelling, xrays done. Low suspicion of septic wrist arthritis, bilateral wrist braces for comfort BUE WBAT. - bilateral pancarpal osteoarthritis of wrists , Assessment & Plan (06/08/2024 9:54 AM CDT): -wrist pain and swelling, xrays done. Low suspicion of septic wrist arthritis, bilateral wrist braces for comfort BUE WBAT. - bilateral pancarpal osteoarthritis of wrists , Assessment & Plan (06/07/2024 4:46 PM CDT): -wrist pain and swelling, xrays done. Low suspicion of septic wrist arthritis, bilateral wrist braces for comfort BUE WBAT. - bilateral pancarpal osteoarthritis of wrists , Urinary retention 06/07/2024 Assessment & Plan (06/14/2024 11:26 AM CDT): -b/l Cr 1.5, Stable -voiding trial since 06/06, had to straight cath pt, he was retaining over 500, unable to void since odom removal around 0500. 700cc recorded. -continues to retain, odom inserted-- voiding trial with [facility] urology appt confirmed. Assessment & Plan (06/13/2024 10:04 AM CDT): -b/l Cr 1.5, Stable -voiding trial since 06/06, had to straight cath pt, he was retaining over 500, unable to void since odom removal around 0500. 700cc recorded. -continues to retain, odom inserted-- voiding trial with [facility] urology appt confirmed. Assessment & Plan (06/12/2024 7:55 AM CDT): -b/l Cr 1.5, Stable -voiding trial since 06/06, had to straight cath pt, he was retaining over 500, unable to void since odom removal around 0500. 700cc recorded. -continues to retain, odom inserted-- voiding trial with [facility] urology appt confirmed. Assessment & Plan (06/11/2024 10:18 AM CDT): -b/l Cr 1.5, Stable -voiding trial since 06/06, had to straight cath pt, he was retaining over 500, unable to void since odom removal around 0500. 700cc recorded. -continues to retain, odom inserted-- voiding trial with [facility] urology appt confirmed. Assessment & Plan (06/10/2024 10:08 AM CDT): -b/l Cr 1.5, Stable -voiding trial since 06/06, had to straight cath pt, he was retaining over 500, unable to void since odom removal around 0500. 700cc recorded. -continues to retain, odom inserted-- will need voiding trial Assessment & Plan (06/09/2024 1:40 PM CDT): -b/l Cr 1.5, Stable -voiding trial since 06/06, had to straight cath pt, he was retaining over 500, unable to void since odom removal around 0500. 700cc recorded. -continues to retain, odom inserted Assessment & Plan (06/08/2024 1:56 PM CDT): -b/l Cr 1.5, Stable -voiding trial since 06/06, had to straight cath pt, he was retaining over 500, unable to void since odom removal around 0500. 700cc recorded. -continues to retain, return odom and needs voiding trial in urology clinic Assessment & Plan (06/07/2024 4:46 PM CDT): -b/l Cr 1.5, Stable -voiding trial since 06/06, had to straight cath pt, he was retaining over 500, unable to void since odom removal around 0500. 700cc recorded. -will continue attempt for another day. Moderate protein-calorie malnutrition 06/05/2024 Assessment & Plan (06/14/2024 11:26 AM CDT): Moderate Protein Calorie malnutrition in context of chronic disease was present on admission. Diagnosis is made in consultation with clinical nutrition who have implemented a care plan. -Nutrition consulted: supplements added Assessment & Plan (06/13/2024 10:04 AM CDT): Moderate Protein Calorie malnutrition in context of chronic disease was present on admission. Diagnosis is made in consultation with clinical nutrition who have implemented a care plan. -Nutrition consulted: supplements added Assessment & Plan (06/12/2024 7:55 AM CDT): Moderate Protein Calorie malnutrition in context of chronic disease was present on admission. Diagnosis is made in consultation with clinical nutrition who have implemented a care plan. -Nutrition consulted: supplements added Assessment & Plan (06/11/2024 10:18 AM CDT): Moderate Protein Calorie malnutrition in context of chronic disease was present on admission. Diagnosis is made in consultation with clinical nutrition who have implemented a care plan. -Nutrition consulted: supplements added Assessment & Plan (06/10/2024 10:08 AM CDT): Moderate Protein Calorie malnutrition in context of chronic disease was present on admission. Diagnosis is made in consultation with clinical nutrition who have implemented a care plan. -Nutrition consulted: supplements added Assessment & Plan (06/09/2024 1:40 PM CDT): Moderate Protein Calorie malnutrition in context of chronic disease was present on admission. Diagnosis is made in consultation with clinical nutrition who have implemented a care plan. -Nutrition consulted: supplements added Assessment & Plan (06/08/2024 9:54 AM CDT): Moderate Protein Calorie malnutrition in context of chronic disease was present on admission. Diagnosis is made in consultation with clinical nutrition who have implemented a care plan. -Nutrition consulted: supplements added Assessment & Plan (06/07/2024 4:46 PM CDT): Moderate Protein Calorie malnutrition in context of chronic disease was present on admission. Diagnosis is made in consultation with clinical nutrition who have implemented a care plan. -Nutrition consulted: supplements added Assessment & Plan (06/06/2024 9:53 AM CDT): Moderate Protein Calorie malnutrition in context of chronic disease was present on admission. Diagnosis is made in consultation with clinical nutrition who have implemented a care plan. -Nutrition consulted MRSA bacteremia 06/04/2024 Assessment & Plan (06/14/2024 12:57 PM CDT): -OSH blood cx + for MRSA, last positive cultures 05/27 -Psoas culture also pos for MRSA -s/p OSH IR drain placement for psoas abscess -TTE negative, EMPERATRIZ not due to Gi risk factors. Unclear source, possible endocarditis as unable to perform EMPERATRIZ -b/l wrist CT and XR only with severe arthritic changes -Currently psoas drain draining well, /[facility] IR for drain maintenance. -Small c spine abscess seen on MRI 05/26 at OSH at base of dens -Possible L1-5 discitis/OM on MRI L sine 05/26 -Repeat MRI spine repeated (10 days after the OSH one) and didn't reveal any cervical abscess but with evidence of lumbar discitis and psoas abscess. Also chronic severe lumbar stenosis on L3/4 and L4/5. -ortho spine consulted: Due to ongoing infection didn't recommend any immediate intervention. Outpt f/u confirmed -PT/OT recs SNF Antibiotic therapy. Course duration: 6 weeks; end date: 07/21/2024. - Continue vancomycin 750 mg Q 24 hrs IV. Trough goal: 15-20 mg/L. - Serial laboratory monitoring of kidney function required while on vancomycin IV. Assessment & Plan (06/13/2024 4:50 PM CDT): -OSH blood cx + for MRSA, last positive cultures 05/27 -Psoas culture also pos for MRSA -s/p OSH IR drain placement for psoas abscess -TTE negative, EMPERATRIZ not due to Gi risk factors. Unclear source, possible endocarditis as unable to perform EMPERATRIZ -b/l wrist CT and XR only with severe arthritic changes -Cont IV vanc (EOT as above) -Currently psoas drain draining well, [facility] IR for drain maintenance. Assessment & Plan (06/12/2024 7:55 AM CDT): -OSH blood cx + for MRSA, last positive cultures 05/27 -Psoas culture also pos for MRSA -s/p IR drain placement for psoas abscess -TTE negative, EMPERATRIZ not due to Gi risk factors. Unclear source, possible endocarditis as unable to perform EMPERATRIZ -b/l wrist CT and XR only with severe arthritic changes -Cont IV vanc (EOT as above) -Currently psoas drain draining well, /[facility] IR for drain maintenance. Assessment & Plan (06/11/2024 10:18 AM CDT): -OSH blood cx + for MRSA, last positive cultures 05/27 -Psoas culture also pos for MRSA -s/p IR drain placement for psoas abscess -TTE negative, EMPERATRIZ not due to Gi risk factors. Unclear source, possible endocarditis as unable to perform EMPERATRIZ -b/l wrist CT and XR only with severe arthritic changes -Cont IV vanc (EOT as above) -Currently psoas drain draining well, /[facility] IR for drain maintenance. Assessment & Plan (06/10/2024 10:08 AM CDT): -OSH blood cx + for MRSA, last positive cultures 05/27 -Psoas culture also pos for MRSA -s/p IR drain placement for psoas abscess -TTE negative, EMPERATRIZ not due to Gi risk factors. Unclear source, possible endocarditis as unable to perform EMPERATRIZ -b/l wrist CT and XR only with severe arthritic changes -Cont IV vanc (EOT as above) -Currently psoas drain draining well, /[facility] IR for drain maintenance. Assessment & Plan (06/09/2024 1:40 PM CDT): -OSH blood cx + for MRSA, last positive cultures 05/27 -Psoas culture also pos for MRSA -s/p IR drain placement for psoas abscess -TTE negative, EMPERATRIZ not due to Gi risk factors. Unclear source, possible endocarditis as unable to perform EMPERATRIZ -b/l wrist CT and XR only with severe arthritic changes -Cont IV vanc (EOT as above) -Currently psoas drain draining well, /[facility] IR for drain maintenance. Assessment & Plan (06/08/2024 1:56 PM CDT): -OSH blood cx + for MRSA, last positive cultures 05/27 -Psoas culture also pos for MRSA -s/p IR drain placement for psoas abscess -TTE negative, EMPERATRIZ not due to Gi risk factors. Unclear source, possible endocarditis as unable to perform EMPERATRIZ -b/l wrist CT and XR only with severe arthritic changes -Cont IV vanc (EOT as above) -Currently psoas drain draining well, [facility] IR for drain maintenance. Assessment & Plan (06/07/2024 4:46 PM CDT): -OSH blood cx + for MRSA, last positive cultures 05/27 -Psoas culture also pos for MRSA -s/p IR drain placement for psoas abscess -TTE negative, EMPERATRIZ not due to Gi risk factors. Unclear source, possible endocarditis as unable to perform EMPERATRIZ -b/l wrist CT and XR only with severe arthritic changes -Cont IV vanc (EOT as above) -Currently psoas drain draining well, /[facility] IR for drain maintenance. Assessment & Plan (06/06/2024 9:53 AM CDT): -OSH blood cx + for MRSA, last positive cultures 05/27 -Psoas culture also pos for MRSA -s/p IR drain placement for psoas abscess -TTE negative, EMPERATRIZ not due to Gi risk factors -Unclear source, possible endocarditis as unable to perform EMPERATRIZ -b/l wrist CT and XR only with severe arthritic changes PLAN -Cont IV vanc -ID consulted, appreciate rec's -Repeat Bcx pending -Currently psoas drain draining well, will hold off on IR consult Assessment & Plan (06/05/2024 11:03 AM CDT): -OSH blood cx + for MRSA, last positive cultures 05/27 -Psoas culture also pos for MRSA -s/p IR drain placement for psoas abscess -TTE negative, EMPERATRIZ not due to Gi risk factors -Unclear source, possible endocarditis as unable to perform EMPERATRIZ PLAN -Cont IV vanc -ID consulted, appreciate rec's -Repeat Bcx pending -Currently psoas drain draining well, will hold off on IR consult Assessment & Plan (06/04/2024 8:01 PM CDT): - Blood Cx + for MRSA (last + 05/27) - Psoas abscess cx also growing MRSA - TTE negative; unable to perform EMPERATRIZ at OSH given GI risk factors - Unclear source control - possibly from spinal abscess? > Cont IV Vancomycin (EOT TBD) > ID c/s in AM Acute gastric ulcer with perforation 06/04/2024 Assessment & Plan (06/14/2024 11:26 AM CDT): -s/p Ex-lap w/ repair at [facility] -G tube in place -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, no further intervention per OSH surgery -PPI -o/p f/u with [facility] surgery Assessment & Plan (06/13/2024 10:04 AM CDT): -s/p Ex-lap w/ repair at [facility] -G tube in place -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, no further intervention per OSH surgery -PPI -o/p f/u with [facility] surgery Assessment & Plan (06/12/2024 7:55 AM CDT): -s/p Ex-lap w/ repair at [facility] -G tube in place -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, no further intervention per OSH surgery -PPI -o/p f/u with [facility] surgery Assessment & Plan (06/11/2024 10:18 AM CDT): -s/p Ex-lap w/ repair at [facility] -G tube in place -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, no further intervention per OSH surgery -PPI -o/p f/u with [facility] surgery Assessment & Plan (06/10/2024 10:08 AM CDT): -s/p Ex-lap w/ repair at [facility] -G tube in place -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, no further intervention per OSH surgery -PPI -o/p f/u with [facility] Assessment & Plan (06/09/2024 1:40 PM CDT): -s/p Ex-lap w/ repair at [facility] -G tube in place -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, no further intervention per OSH surgery -PPI -o/p f/u with [facility] surgery Assessment & Plan (06/08/2024 1:56 PM CDT): -s/p Ex-lap w/ repair at [facility] -G tube in place -CT 05/22 w/ sequelae of perforation, no further intervention per OSH surgery -PPI -o/p f/u with [facility] surgery Assessment & Plan (06/07/2024 4:46 PM CDT): -s/p Ex-lap w/ repair at [facility] -G tube in place -CT 05/22 w/ sequelae of perforation, no further intervention per OSH surgery -PPI -o/p f/u with [place] surgery Assessment & Plan (06/06/2024 9:53 AM CDT): -s/p Ex-lap w/ repair at [facility] -G tube in place -CT 05/22 w/ sequelae of perforation, no further intervention per OSH surgery PLAN -PPI -o/p f/u with [facility] surgery -If concern for recurrent perf, will consult ACS Assessment & Plan (06/05/2024 11:03 AM CDT): -s/p Ex-lap w/ repair at [facility] -G tube in place -CT 05/22 w/ sequelae of perforation, no further intervention per OSH surgery PLAN -PPI -o/p f/u with [place] surgery -If concern for recurrent perf, will consult ACS Assessment & Plan (06/04/2024 8:01 PM CDT): - s/p Ex-Lap with Repair at [facility] - G-tube in place, receiving Tube-Feedings - Most recent CT on 05/22 showing sequelae of perforation. No further intervention per OSH surgery. Plan: > Cont PPI, avoid NSAIDs > Recommend OP f/u with OSH Surgery > Consider ACS c/s if any concerns RIC (acute kidney injury) 06/04/2024 Assessment & Plan (06/14/2024 11:26 AM CDT): -b/l Cr 1.5, Stable -voiding trial since 06/06, had to straight cath pt, he was retaining over 500, unable to void since odom removal around 0500. 700cc recorded. -continues to retain, odom inserted-- voiding trial with [facility] urology appt confirmed. Assessment & Plan (06/13/2024 10:04 AM CDT): -b/l Cr 1.5, Stable -voiding trial since 06/06, had to straight cath pt, he was retaining over 500, unable to void since odom removal around 0500. 700cc recorded. -continues to retain, odom inserted-- voiding trial with [facility] urology appt confirmed. Assessment & Plan (06/12/2024 7:55 AM CDT): -b/l Cr 1.5, Stable -voiding trial since 06/06, had to straight cath pt, he was retaining over 500, unable to void since odom removal around 0500. 700cc recorded. -continues to retain, odom inserted-- voiding trial with [facility] urology appt confirmed. Assessment & Plan (06/11/2024 10:18 AM CDT): -b/l Cr 1.5, Stable -voiding trial since 06/06, had to straight cath pt, he was retaining over 500, unable to void since odom removal around 0500. 700cc recorded. -continues to retain, odom inserted-- voiding trial with [facility] urology appt confirmed. Assessment & Plan (06/10/2024 10:08 AM CDT): -b/l Cr 1.5, Stable -voiding trial since 06/06, had to straight cath pt, he was retaining over 500, unable to void since odom removal around 0500. 700cc recorded. -continues to retain, odom inserted-- will need voiding trial Assessment & Plan (06/09/2024 1:40 PM CDT): -b/l Cr 1.5, Stable -voiding trial since 06/06, had to straight cath pt, he was retaining over 500, unable to void since odom removal around 0500. 700cc recorded. -continues to retain, odom inserted Assessment & Plan (06/08/2024 1:56 PM CDT): -b/l Cr 1.5, Stable -voiding trial since 06/06, had to straight cath pt, he was retaining over 500, unable to void since odom removal around 0500. 700cc recorded. -continues to retain, return odom and needs voiding trial in urology clinic Assessment & Plan (06/07/2024 4:46 PM CDT): -b/l Cr 1.5, Stable -voiding trial since 06/06, had to straight cath pt, he was retaining over 500, unable to void since odom removal around 0500. 700cc recorded. -will continue attempt for another day. Assessment & Plan (06/06/2024 9:53 AM CDT): -b/l Cr 1.5 -Stable -Has odom in place, likely voiding trial soon pending further surgical interventions Assessment & Plan (06/05/2024 11:03 AM CDT): -b/l Cr 1.5 -Stable -Has odom in place, likely voiding trial soon pending further surgical interventions Assessment & Plan (06/04/2024 7:19 PM CDT): - Most recent Cr 1.34, baseline ~1.5 per records - Pt has Odom cath in place; no complaints > Repeat Chem, avoid nephrotoxic agents > Consider TOV once post-surgery Psoas abscess, right 06/04/2024 Assessment & Plan (06/14/2024 12:57 PM CDT): -OSH blood cx + for MRSA, last positive cultures 05/27 -Psoas culture also pos for MRSA -s/p OSH IR drain placement for psoas abscess -TTE negative, EMPERATRIZ not due to Gi risk factors. Unclear source, possible endocarditis as unable to perform EMPERATRIZ -b/l wrist CT and XR only with severe arthritic changes -Currently psoas drain draining well, f/u [facility] IR for drain maintenance. -Small c spine abscess seen on MRI 05/26 at OSH at base of dens -Possible L1-5 discitis/OM on MRI L sine 05/26 -Repeat MRI spine repeated (10 days after the OSH one) and didn't reveal any cervical abscess but with evidence of lumbar discitis and psoas abscess. Also chronic severe lumbar stenosis on L3/4 and L4/5. -ortho spine consulted: Due to ongoing infection didn't recommend any immediate intervention. Outpt f/u confirmed -PT/OT recs SNF Antibiotic therapy. Course duration: 6 weeks; end date: 07/21/2024. - Continue vancomycin 750 mg Q 24 hrs IV. Trough goal: 15-20 mg/L. - Serial laboratory monitoring of kidney function required while on vancomycin IV. Assessment & Plan (06/13/2024 4:50 PM CDT): -OSH blood cx + for MRSA, last positive cultures 05/27 -Psoas culture also pos for MRSA -s/p OSH IR drain placement for psoas abscess -TTE negative, EMPERATRIZ not due to Gi risk factors. Unclear source, possible endocarditis as unable to perform EMPERATRIZ -b/l wrist CT and XR only with severe arthritic changes -Cont IV vanc (EOT as above) -Currently psoas drain draining well, /u [facility] IR for drain maintenance. Assessment & Plan (06/12/2024 7:55 AM CDT): -OSH blood cx + for MRSA, last positive cultures 05/27 -Psoas culture also pos for MRSA -s/p IR drain placement for psoas abscess -TTE negative, EMPERATRIZ not due to Gi risk factors. Unclear source, possible endocarditis as unable to perform EMPERATRIZ -b/l wrist CT and XR only with severe arthritic changes -Cont IV vanc (EOT as above) -Currently psoas drain draining well, /u [facility] IR for drain maintenance. Assessment & Plan (06/11/2024 10:18 AM CDT): -OSH blood cx + for MRSA, last positive cultures 05/27 -Psoas culture also pos for MRSA -s/p IR drain placement for psoas abscess -TTE negative, EMPERATRIZ not due to Gi risk factors. Unclear source, possible endocarditis as unable to perform EMPERATRIZ -b/l wrist CT and XR only with severe arthritic changes -Cont IV vanc (EOT as above) -Currently psoas drain draining well, [facility] [facility] IR for drain maintenance. Assessment & Plan (06/10/2024 10:08 AM CDT): -OSH blood cx + for MRSA, last positive cultures 05/27 -Psoas culture also pos for MRSA -s/p IR drain placement for psoas abscess -TTE negative, EMPERATRIZ not due to Gi risk factors. Unclear source, possible endocarditis as unable to perform EMPERATRIZ -b/l wrist CT and XR only with severe arthritic changes -Cont IV vanc (EOT as above) -Currently psoas drain draining well, [facility] IR for drain maintenance. Assessment & Plan (06/09/2024 1:40 PM CDT): -OSH blood cx + for MRSA, last positive cultures 05/27 -Psoas culture also pos for MRSA -s/p IR drain placement for psoas abscess -TTE negative, EMPERATRIZ not due to Gi risk factors. Unclear source, possible endocarditis as unable to perform EMPERATRIZ -b/l wrist CT and XR only with severe arthritic changes -Cont IV vanc (EOT as above) -Currently psoas drain draining well, [facility] IR for drain maintenance. Assessment & Plan (06/08/2024 1:56 PM CDT): -OSH blood cx + for MRSA, last positive cultures 05/27 -Psoas culture also pos for MRSA -s/p IR drain placement for psoas abscess -TTE negative, EMPERATRIZ not due to Gi risk factors. Unclear source, possible endocarditis as unable to perform EMPERATRIZ -b/l wrist CT and XR only with severe arthritic changes -Cont IV vanc (EOT as above) -Currently psoas drain draining well, [facility] IR for drain maintenance. Assessment & Plan (06/07/2024 4:46 PM CDT): -OSH blood cx + for MRSA, last positive cultures 05/27 -Psoas culture also pos for MRSA -s/p IR drain placement for psoas abscess -TTE negative, EMPERATRIZ not due to Gi risk factors. Unclear source, possible endocarditis as unable to perform EMPERATRIZ -b/l wrist CT and XR only with severe arthritic changes -Cont IV vanc (EOT as above) -Currently psoas drain draining well, f/u [facility] IR for drain maintenance. Assessment & Plan (06/06/2024 9:53 AM CDT): -OSH blood cx + for MRSA, last positive cultures 05/27 -Psoas culture also pos for MRSA -s/p IR drain placement for psoas abscess -TTE negative, EMPERATRIZ not due to Gi risk factors -Unclear source, possible endocarditis as unable to perform EMPERATRIZ -b/l wrist CT and XR only with severe arthritic changes PLAN -Cont IV vanc -ID consulted, appreciate rec's -Repeat Bcx pending -Currently psoas drain draining well, will hold off on IR consult Assessment & Plan (06/05/2024 11:03 AM CDT): -OSH blood cx + for MRSA, last positive cultures 05/27 -Psoas culture also pos for MRSA -s/p IR drain placement for psoas abscess -TTE negative, EMPERATRIZ not due to Gi risk factors -Unclear source, possible endocarditis as unable to perform EMPERATRIZ PLAN -Cont IV vanc -ID consulted, appreciate rec's -Repeat Bcx pending -Currently psoas drain draining well, will hold off on IR consult Assessment & Plan (06/04/2024 8:01 PM CDT): - s/p CT-guided drain placement on 05/27 - Cx growing MRSA - Drain remains in place Plan: > Cont IV Antibiotics as above > consult ACS vs IR in AM for assistance in drain management Oropharyngeal dysphagia 06/04/2024 Assessment & Plan (06/14/2024 11:26 AM CDT): -Had MBS at [facility], dx with dysphagia PEG inserted, started on TF -Speech consulted, no s/s oropharyngeal dysphagia on 06/05. Can tolerate diet. Repeat MBS 06/10 no sign of dysphagia. Stopped TF. -discuss with [facility] surgery about possible removal of PEG if no longer needed Assessment & Plan (06/13/2024 10:04 AM CDT): -Had MBS at [facility], dx with dysphagia PEG inserted, started on TF -Speech consulted, no s/s oropharyngeal dysphagia on 06/05. Can tolerate diet. Repeat MBS 06/10 no sign of dysphagia. Stopped TF. -discuss with [facility] surgery about possible removal of PEG if no longer needed Assessment & Plan (06/12/2024 7:55 AM CDT): -Had MBS at [facility], dx with dysphagia PEG inserted, started on TF -Speech consulted, no s/s oropharyngeal dysphagia on 06/05. Can tolerate diet. Repeat MBS 06/10 no sign of dysphagia. Stopped TF. -discuss with [facility] surgery about possible removal of PEG if no longer needed Assessment & Plan (06/11/2024 10:18 AM CDT): -Had MBS at [facility], dx with dysphagia PEG inserted, started on TF -Speech consulted, no s/s oropharyngeal dysphagia on 06/05. Can tolerate diet. Repeat MBS 06/10 no sign of dysphagia. Stopped TF. -discuss with [facility] surgery about possible removal of PEG if no longer needed Assessment & Plan (06/10/2024 10:08 AM CDT): -Had MBS at [facility] -Cont TF through Gtube -Speech consulted, no s/s oropharyngeal dysphagia on 06/05. Can tolerate diet. Per patient request start on pureed and advance as tolerated. -diet as tolerated. TF stopped Assessment & Plan (06/09/2024 1:40 PM CDT): -Had MBS at [facility] -Cont TF through Gtube -Speech consulted, no s/s oropharyngeal dysphagia on 06/05. Can tolerate diet. Per patient request start on pureed and advance as tolerated. -diet as tolerated. TF stopped Assessment & Plan (06/08/2024 9:54 AM CDT): -Had MBS at [facility] -Cont TF through Gtube -Speech consulted, no s/s oropharyngeal dysphagia on 06/05. Can tolerate diet. Per patient request start on pureed and advance as tolerated. -diet as tolerated. TF stopped Assessment & Plan (06/07/2024 4:46 PM CDT): -Had MBS at [facility] -Cont TF through Gtube -Speech consulted, no s/s oropharyngeal dysphagia on 06/05. Can tolerate diet. Per patient request start on pureed and advance as tolerated. -diet as tolerated. 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 No evidence of new target-organ dysfunction related to HTN. Past 24 hrs: Blood pressure control: adequate. Plan: Serial monitoring of blood pressure. Continue amlodipine 10 mg DAILY PO. Continue lisinopril 40 mg DAILY PO. Assessment & Plan (06/13/2024 10:04 AM CDT): -per dispense report was taking Lisinopril, HCTZ missed a refill -Amlodipine started [facility] -use both, if too controlled stop amlodipine Assessment & Plan (06/12/2024 7:55 AM CDT): -per dispense report was taking Lisinopril, HCTZ missed a refill -Amlodipine started OSH -use both, if too controlled stop amlodipine Assessment & Plan (06/11/2024 10:18 AM CDT): -per dispense report was taking Lisinopril, HCTZ missed a refill -Amlodipine started OSH -use both, if too controlled stop amlodipine Assessment & Plan (06/10/2024 10:08 AM CDT): -Cont amlodipine -Holding home zestril, not in formulary Assessment & Plan (06/09/2024 1:40 PM CDT): -Cont amlodipine -Holding home zestril, not in formulary Assessment & Plan (06/08/2024 9:54 AM CDT): -Cont amlodipine -Holding home zestril, not in formulary Assessment & Plan (06/06/2024 1:04 PM CDT): -Cont amlodipine -Holding home zestril, not in formulary Assessment & Plan (06/06/2024 9:53 AM CDT): -Cont amlodipine -Holding home zestril Assessment & Plan (06/05/2024 11:03 AM CDT): -Cont amlodipine -Holding home zestril Assessment & Plan (06/04/2024 7:11 PM CDT): - No longer septic - Cont Amlodipine; consider resuming zestril pending renal function Iron deficiency anemia due to chronic blood loss 06/04/2024 Assessment & Plan (06/14/2024 11:26 AM CDT): -Iron supplementation Assessment & Plan (06/13/2024 10:04 AM CDT): -Iron supplementation Assessment & Plan (06/12/2024 7:55 AM CDT): -Iron supplementation Assessment & Plan (06/11/2024 10:18 AM CDT): -Iron supplementation Assessment & Plan (06/10/2024 10:08 AM CDT): -Iron supplementation Assessment & Plan (06/09/2024 1:40 PM CDT): -Iron supplementation Assessment & Plan (06/08/2024 9:54 AM CDT): -Iron supplementation Assessment & Plan (06/06/2024 1:04 PM CDT): -Iron supplementation Assessment & Plan (06/06/2024 9:53 AM CDT): -Iron supplementation Assessment & Plan (06/05/2024 11:03 AM CDT): -Iron supplementation Assessment & Plan (06/04/2024 7:19 PM CDT): - Combination of iron deficiency and blood loss from perforation/surgery - Iron replacement Peripheral vascular disease 06/04/2024 Assessment & Plan (06/14/2024 11:26 AM CDT): -Had CT w/ runoff at [facility] showing patent vasculature, Currently low concern for acute occlusion -cont statin -PAULINO Non-compressible digit pressures on the right. Abnormal left lower extremity arterial physiologic study consistent with mild peripheral vascular disease measuring 0.7-0.9. Assessment & Plan (06/13/2024 10:04 AM CDT): -Had CT w/ runoff at [facility] showing patent vasculature, Currently low concern for acute occlusion -cont statin -PAULINO Non-compressible digit pressures on the right. Abnormal left lower extremity arterial physiologic study consistent with mild peripheral vascular disease measuring 0.7-0.9. Assessment & Plan (06/12/2024 7:55 AM CDT): -Had CT w/ runoff at [facility] showing patent vasculature, Currently low concern for acute occlusion -cont statin -PAULINO Non-compressible digit pressures on the right. Abnormal left lower extremity arterial physiologic study consistent with mild peripheral vascular disease measuring 0.7-0.9. Assessment & Plan (06/11/2024 10:18 AM CDT): -Had CT w/ runoff at [facility] showing patent vasculature, Currently low concern for acute occlusion -cont statin -PAULINO Non-compressible digit pressures on the right. Abnormal left lower extremity arterial physiologic study consistent with mild peripheral vascular disease measuring 0.7-0.9. Assessment & Plan (06/10/2024 10:08 AM CDT): -Had CT w/ runoff at [facility] showing patent vasculature, Currently low concern for acute occlusion -cont statin -PAULINO Non-compressible digit pressures on the right. Abnormal left lower extremity arterial physiologic study consistent with mild peripheral vascular disease measuring 0.7-0.9. Assessment & Plan (06/09/2024 1:40 PM CDT): -Had CT w/ runoff at [facility] showing patent vasculature, Currently low concern for acute occlusion -cont statin -PAULINO Non-compressible digit pressures on the right. Abnormal left lower extremity arterial physiologic study consistent with mild peripheral vascular disease measuring 0.7-0.9. Assessment & Plan (06/08/2024 9:54 AM CDT): -Had CT w/ runoff at [facility] showing patent vasculature, Currently low concern for acute occlusion -cont statin -PAULINO Non-compressible digit pressures on the right. Abnormal left lower extremity arterial physiologic study consistent with mild peripheral vascular disease measuring 0.7-0.9. Assessment & Plan (06/07/2024 4:46 PM CDT): -Had CT w/ runoff at [facility] showing patent vasculature, Currently low concern for acute occlusion -cont statin -PAULINO Non-compressible digit pressures on the right. Abnormal left lower extremity arterial physiologic study consistent with mild peripheral vascular disease measuring 0.7-0.9. Assessment & Plan (06/06/2024 9:53 AM CDT): -Had CT w/ runoff at [facility] showing patient vasculature -Currently low concern for acut eocclusion -cont statin -Neurovascular checks -PAULINO -Cont statin Assessment & Plan (06/05/2024 11:03 AM CDT): -Had CT w/ runoff at [facility] showing patient vasculature -Currently low concern for acut eocclusion -cont statin -Neurovascular checks -PAULINO -Cont statin Assessment & Plan (06/04/2024 8:05 PM CDT): - CT w/runoff at [facility] showing patent LE vasculature, although without contrast past ankle - Low c/f acute occlusion at this time. - Pt not started on antiplatelet at that time > Resume Statin > Neuro checks > PAULINO ordered Resolved Problems Problem Noted Date Diagnosed Date Resolved Date Feeding by G-tube 06/04/2024 06/10/2024 Assessment & Plan (06/10/2024 10:08 AM CDT): -Had MBS at [facility] -Cont TF through Gtube -Speech consulted, no s/s oropharyngeal dysphagia on 06/05. Can tolerate diet. Per patient request start on pureed and advance as tolerated. -diet as tolerated. TF stopped Assessment & Plan (06/09/2024 1:40 PM CDT): -Had MBS at [facility] -Cont TF through Gtube -Speech consulted, no s/s oropharyngeal dysphagia on 06/05. Can tolerate diet. Per patient request start on pureed and advance as tolerated. -diet as tolerated. TF stopped Assessment & Plan (06/08/2024 9:54 AM CDT): -Had MBS at [facility] -Cont TF through Gtube -Speech consulted, no s/s oropharyngeal dysphagia on 06/05. Can tolerate diet. Per patient request start on pureed and advance as tolerated. -diet as tolerated. TF stopped Assessment & Plan (06/07/2024 4:46 PM CDT): -Had MBS at [facility] -Cont TF through Gtube -Speech consulted, no s/s oropharyngeal dysphagia on 06/05. Can tolerate diet. Per patient request start on pureed and advance as tolerated. -diet as tolerated. 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 Assessment & Plan (06/05/2024 11:03 AM CDT): -Had MBS at [facility] -Cont TF through Gtube -[employer] FOUNDRY LABORER eval Encounters Date Type Department Care Team Description 06/24/2024 10:30 AM CDT Office Visit [facility] - [facility] [address] [place] [address] Renato Dorsey MD Arthritis of both wrists (Primary Dx) 06/24/2024 Travel 06/22/2024 [facility] [address] [place] [address] Thalia Pichardo PA-C Results 06/04/2024 4:58 PM CDT - 06/14/2024 1:09 PM CDT Hospital Encounter [facility] 8S ACUTE [address] [place] [address] Darion Beaver DO Kumar, Ashwath, MD Jain, Aman, DO Kent, Saida A, MD Neal, Prashanth Enrique MD Hospitalist Discharge Disposition: [facility] Facility 06/04/2024 Travel 06/04/2024 Telephone [facility] [address] [place] [address] Darion Beaver DO Abscess from Last 3 Months Social History Tobacco Use Types Packs/Day Years Used Date Smoking Tobacco: Never Smokeless Tobacco: Never Tobacco Cessation:Counseling Given: No Alcohol Use Standard Drinks/Week Comments Never 0 (1 standard drink = 0.6 oz pur e alcohol) AUDIT-C Answer Date Recorded Q1: How often do you have a drink containing alcohol? Never 06/04/2024 Q2: How many drinks containi ng alcohol do you have on a typical day when you are drinking? Patient does not drink Q3: How often do you have si x or more drinks on one occasion? Never 06/04/2024 Overall Financial Resource Strain (CARDIA) Answe r Date Recorded How hard is it for you to pa y for the very basics like food, housing, medical care, and heating? Not very hard 06/04/2024 [facility] [place] [facility] - Occupational Stress Questionnaire Answer Date Recorded Do you feel stress - tense, restless, nervous, or anxious, or unable to sleep at night because your mind is troubled all the time - these days? Not at all 06/04/2024 Hunger Vital Sign Answer Date Recorded Within the past 12 months, y ou worried that your food would run out before you got the money to buy more. Never true 06/05/19 25 Within the past 12 months, t he food you bought just didn't last and you didn't have money to get more. Never true 06/04/2024 PRAPARE - Transportation Answer Date Re corded In the past 12 months, has l ack of transportation kept you from medical appointments or from getting medications? No 05/11 In the past 12 months, has l ack of transportation kept you from meetings, work, or from getting things needed for daily living? No 06/04/2024 Housing Stability Vital Sign Answer [place] e Recorded In the last 12 months, was t here a time when you were not able to pay the mortgage or rent on time? No 06/04/2024 In the past 12 months, how m any times have you moved where you were living? 0 06/04/2024 At any time in the past 12 m [facility], were you homeless or living in a retirement (including now)? 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 Gender Identity Not on file Sexual Orientation Not on file Last Filed Vital Signs Vital Sign Reading Time Taken Comments Blood Pressure 145/72 06/14/2024 7:58 AM CDT Pulse 83 06/14/2024 7:58 AM CDT Temperature 37 C (98.6 F) 06/14/2024 5:15 AM CDT Respiratory Rate 18 06/14/2024 7:58 AM CDT Oxygen Saturation 97% 06/14/2024 7:58 AM CDT Inhaled Oxygen Concentration - - Weight 119.7 kg (264 lb) 06/04/2024 5:03 PM CDT Height 177.8 cm (5' 10 ) 06/04/2024 5:03 PM CDT Body Mass Index 37.88 06/04/2024 5:03 PM CDT Plan of Treatment Upcoming Encounters Date Type Department Care Team (Late st Contact Info) Description 07/06/2024 9:45 AM CDT Procedure visit [facility] - Urology [address] [place] [address] Brianna Triplett, DAY CARE CENTER DIRECTOR-DEVELOPER [employer] [address] [place] [address] [place] [address] 07/19/2024 5:30 PM CDT Appointment [facility] MRI [address] [place] [id number] Thalia Pichardo PAKellyC [address] [place] [id number] 07/21/2024 10:30 AM CDT Office Visit [facility] - Infectious Disease [address] [place] [address], [place] [address] Thalia Pichardo, PAKellyC [address] [place] [address] 07/26/2024 9:15 AM CDT Office Visit [facility] - Orthopedics [address] [place] [address], [place] [id number] Vish Antonio MD [address] [place] [id number] Health Maintenance Due Date Last Done Comments HEPATITIS C SCREENING 07/31/1965 DTAP/TDAP/TD VACCINES (1 - Tdap) 08/04/1966 PNEUMOCOCCAL VACCINE 50+ (1 of 1 - PCV) 08/04/1997 ZOSTER VACCINE (1 of 2) 08/04/1997 Respiratory Syncytial Virus (RSV) Vaccine Pt: or over 60 yrs (1 - 1-dose 75+ series) 08/04/2022 COVID-19 VACCINE ( season) 2023 06/07/2021, 11/30/2020, 04/24/2020, Additional history exists DEPRESSION SCREENING 02/10/2024 MEDICARE AWV CALENDAR YEAR 2024 INFLUENZA VACCINE Completed 11/04/2023, , 12/13/2021, Additional history exists HEPATITIS B VACCINE Aged Out No longe r eligible based on patient's age to complete this topic HIB VACCINE Aged Out No longer eligi ble based on patient's age to complete this topic HPV VACCINE Aged Out No longer eligi ble based on patient's age to complete this topic MENINGOCOCCAL (Group B) VACCINE SHARED DECISION-MAKING Aged Out No longer eligible based on patient's age to complete this topic MENINGOCOCCAL GROUPS A/C/Y/W VACCINE Aged Out No longer eligible based on patient's age to complete this topic Procedures Procedure Name Priority Date/Time Associated Diagnosis Comments RENAL FUNCTION PANEL AM Draw 06/14/2024 6:22 AM CDT RENAL FUNCTION PANEL AM Draw 06/13/2024 6:40 AM CDT RENAL FUNCTION PANEL AM Draw 06/12/2024 2:59 PM CDT MAGNESIUM BLOOD Timed 06/11/2024 11:52 AM CDT RENAL FUNCTION PANEL Timed 06/11/2024 11:52 AM CDT CBC W/O DIFFERENTIAL Timed 06/11/2024 11:51 AM CDT VANCOMYCIN LEVEL TROUGH Timed 06/11/2024 11:51 AM CDT VANCOMYCIN LEVEL PEAK Timed 06/10/2024 2:07 PM CDT BASIC METABOLIC PANEL (CALCIUM TOTAL) Routine 06/10/2024 2:07 PM CDT FL SWALLOWING FUNCTION STUDY Routine 06/09/2024 8:58 AM CDT 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) VANCOMYCIN LEVEL RANDOM Routine 06/09/2024 7:45 AM CDT BASIC METABOLIC PANEL (CALCIUM TOTAL) AM Draw 06/09/2024 7:45 AM CDT IR PICC LINE INSERT Routine 06/08/2024 5 :03 PM CDT 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) MRSA bacteremia Acute osteomyelitis of lumbar spine (HCC) XR LUMBAR SPINE 2 OR 3VW Routine 06/08/2024 11:53 AM CDT 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) MAGNESIUM BLOOD Routine 06/08/2024 7:04 AM CDT RENAL FUNCTION PANEL AM Draw 06/08/2024 7:04 AM CDT CBC W/O DIFFERENTIAL AM Draw 06/08/2024 7:04 AM CDT VANCOMYCIN LEVEL RANDOM Timed 06/08/2024 7:04 AM CDT CBC W AUTO DIFFERENTIAL AM Draw 06/07/2024 7:06 AM CDT PHOSPHORUS BLOOD AM Draw 06/07/2024 7:06 AM CDT MAGNESIUM BLOOD AM Draw 06/07/2024 7:06 AM CDT COMPREHENSIVE METABOLIC PANEL AM Draw 06/07/2024 7:06 AM CDT VANCOMYCIN LEVEL RANDOM Timed 06/06/2024 5:15 PM CDT XR KNEE LEFT 2VW OR LESS Routine 06/06/2024 3:11 PM CDT Acute pain of left knee VAS ARTERIAL ANKLE ARM INDEX Routine 06/06/2024 1:35 PM CDT Cold extremity without peripheral vascular disease URIC ACID BLOOD STAT 06/06/2024 6:48 AM CDT XR WRIST LEFT 3VW OR MORE STAT 06/06/2024 6:24 AM CDT Pain in both wrists XR WRIST RIGHT 3VW OR MORE STAT 06/06/2024 6:11 AM CDT Pain in both wrists CBC W AUTO DIFFERENTIAL AM Draw 06/06/2024 4:36 AM CDT PHOSPHORUS BLOOD AM Draw 06/06/2024 4:36 AM CDT MAGNESIUM BLOOD AM Draw 06/06/2024 4:36 AM CDT COMPREHENSIVE METABOLIC PANEL AM Draw 06/06/2024 4:36 AM CDT VANCOMYCIN LEVEL TROUGH Timed 06/06/2024 4:[address] WRIST RIGHT W CONTRAST Routine 06/05/2024 6:04 PM CDT 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) MRSA bacteremia CT WRIST LEFT W CONTRAST Routine 06/05/2024 6:04 PM CDT 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) MRSA bacteremia CT LUMBAR SPINE WO CONTRAST STAT 06/05/2024 6:04 PM CDT 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) CT THORACIC SPINE WO CONTRAST STAT 06/05/2024 6:04 PM CDT 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) CT CERVICAL SPINE WO CONTRAST STAT 06/05/2024 6:04 PM CDT 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) MRI LUMBAR SPINE WWO CONTRAST STAT 06/05/2024 5:38 PM CDT 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) MRI THORACIC SPINE WWO CONT STAT 06/05/2024 5:37 PM CDT 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) MRI CERVICAL SPINE WWO CONT STAT 06/05/2024 5:16 PM CDT 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) C-REACTIVE PROTEIN AM Draw 06/05/2024 9: 14 AM CDT PT-INR [facility] Routine 06/05/2024 9:14 AM CDT PHOSPHORUS BLOOD Routine 06/05/2024 9:14 AM CDT MAGNESIUM BLOOD Routine 06/05/2024 9:14 AM CDT COMPREHENSIVE METABOLIC PANEL Routine 06/05/2024 9:14 AM CDT CULTURE BLOOD STAT 06/05/2024 9:14 AM CDT CBC W AUTO DIFFERENTIAL STAT 06/05/2024 9:13 AM CDT VANCOMYCIN LEVEL PEAK Timed 06/05/2024 9:13 AM CDT ERYTHROCYTE SEDIMENTATION RATE AM Draw 06/05/2024 9:13 AM CDT CULTURE BLOOD STAT 06/04/2024 8:32 PM CDT EKG 12-LEAD Routine 06/04/2024 6:53 PM CDT 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 BUN 19 7 - 26 mg/dL 06/14/2024 7:04 AM CDT [facility] Creatinine 1.22(H) 0.71 - 1.16 mg/dL 06/14/2024 7:04 AM CDT [facility] Sodium 134(L) 136 - 145 mmol/L 06/14/2024 7:04 AM CDT [facility] Potassium 4.7(H) 3.5 - 4.5 mmol/L 06/14/2024 7:04 AM [facility] Chloride 102 98 - 107 mmol/L 06/14/2024 7:04 AM [facility] CO2 23 22 - 29 mmol/L 06/14/2024 7:04 AM [facility] Glucose 99 70 - 99 mg/dL 06/14/2024 7:04 AM [facility] Albumin 2.1(L) 3.4 - 5.0 g/dL 06/14/2024 7:04 AM [facility] Calcium 8.0(L) 8.4 - 10.2 mg/dL 06/14/2024 7:04 AM [facility] Phosphorus 3.9 2.8 - 5.1 mg/dL 06/14/2024 7:04 AM [facility] Anion Gap 9 6 - 16 06/14/2024 7:04 AM [facility] BUN/Creatinine Ratio 16 7 - 23 06/14/2024 7:04 AM [facility] Osmolality Calculated 280 275 - 295 mOsm/kg 06/14/2024 7:04 AM [facility] eGFR by CKD-EPI 61(L) >=90 mL/min/1.7 3 m2 06/14/2024 7:04 AM [facility] Blood BLOOD SPECIMEN / Unknown Venipuncture / Unknown 06/14/2024 6:22 AM CDT 06/14/2024 6:39 AM T us Darlene Sears MD LAB - CHEMISTRY ORDERABLES Final Result [facility] [address] [place] [address], [facility] [phone] * MAGNESIUM BLOOD (06/11/2024 11:52 AM T) Only the most recent of5 resultswithin the time period is included. Magnesium 1.8 1.6 - 2.6 mg/dL 06/11/2024 12:31 PM [facility] Blood BLOOD SPECIMEN / Unknown Lab Venipuncture / Unknown 06/11/2024 11:52 AM CDT 06/11/2024 12:05 PM CDT us Darlene Sears MD LAB - CHEMISTRY ORDERABLES Final Result [facility] [address] [place] [address], [facility] [phone] * (ABNORMAL) CBC W/O DIFFERENTIAL (06/11/2024 11:51 AM CDT) Only the most recent of2 resultswithin the time period is included. WBC 7.2 4.0 - 10.7 x10E9/L 06/11/2024 12:12 PM [facility] RBC Count 3.33(L) 4.30 - 5.80 x10E12/L 06/11/2024 12:12 PM [facility] Hemoglobin 9.8(L) 13.3 - 17.5 g/dL 06/11/2024 12:12 PM [facility] Hematocrit 31.3(L) 38.7 - 51.1 % 06/11/2024 12:12 PM [facility] MCV 94.0 80.0 - 98.0 fL 06/11/2024 12:12 PM [facility] MCH 29.4 26.7 - 33.6 pg 06/11/2024 12:12 PM [facility] MCHC 31.3(L) 31.7 - 36.3 g/dL 06/11/2024 12:12 PM [facility] RDW-CV 15.9(H) 11.3 - 14.8 % 06/11/2024 12:12 PM [facility] Platelet Count 309 150 - 420 x10E9/L 06/11/2024 12:12 PM [facility] MPV 11.3 7.8 - 11.4 fL 06/11/2024 12:12 PM [facility] Blood BLOOD SPECIMEN / Unknown Lab Venipuncture / Unknown 06/11/2024 11:51 AM CDT 06/11/2024 12:05 PM CDT us Darlene Sears MD LAB - HEMATOLOGY ORDERABLES Collette l Result Performing Organization Address [facility]/ZIP Co de Phone Number [address] [address], [facility] [phone] * VANCOMYCIN LEVEL TROUGH (06/11/2024 11:51 AM CDT) Only the most recent of2 resultswithin the time period is included. Pathologist [facility] [place] Vancomycin Trough 14.8 10.0 - 20.0 ug/mL 06/11/2024 12:35 PM CDT [facility] Blood BLOOD SPECIMEN / Unknown Lab Venipuncture / Unknown 06/11/2024 11:51 AM CDT 06/11/2024 11:59 AM CDT Narrative [facility] - 06/11/2024 12:35 PM CDT See institution protocol. us Darlene Sears MD LAB - CHEMISTRY ORDERABLES Final Result Performing Organization Address [facility] Co de Phone Number [address] [address], [facility] [phone] * (ABNORMAL) BASIC METABOLIC PANEL (CALCIUM TOTAL) (06/10/2024 2:07 PM CDT) Only the most recent of2 resultswithin the time period is included. Pathologist [facility] [place] BUN 28(H) 7 - 26 mg/dL 06/10/2024 2:51 PM CDT [facility] Creatinine 1.21(H) 0.71 - 1.16 mg/dL 06/10/2024 2:51 PM T [facility] Sodium 134(L) 136 - 145 mmol/L 06/10/2024 2:51 PM T [facility] Potassium 4.7(H) 3.5 - 4.5 mmol/L 06/10/2024 2:51 PM T [facility] Chloride 103 98 - 107 mmol/L 06/10/2024 2:51 PM T [facility] CO2 27 22 - 29 mmol/L 06/10/2024 2:51 PM T [facility] Glucose 107(H) 70 - 99 mg/dL 06/10/2024 2:51 PM CDT [facility] Calcium 8.2(L) 8.4 - 10.2 mg/dL 06/10/2024 2:51 PM T [facility] Anion Gap 4(L) 6 - 16 06/10/2024 2:51 PM CDT [facility] BUN/Creatinine Ratio 23 7 - 23 06/10/2024 2:51 PM T [facility] Osmolality Calculated 284 275 - 295 mOsm/kg 06/10/2024 2:51 PM T [facility] eGFR by CKD-EPI 62(L) >=90 mL/min/1.7 3 m2 06/10/2024 2:51 PM CDT [facility] Blood BLOOD SPECIMEN / Unknown Venipuncture / Unknown 06/10/2024 2:07 PM CDT 06/10/2024 2:17 PM CDT us Darlene Sears MD LAB - CHEMISTRY ORDERABLES Final Result Performing Organization Address [facility]/ZIP Co de Phone Number [address] [address], [place] [phone] * (ABNORMAL) VANCOMYCIN LEVEL PEAK (06/10/2024 2:07 PM CDT) Only the most recent of2 resultswithin the time period is included. Vancomycin Peak 24.8(L) 25.0 - 40.0 ug/mL 06/10/2024 2:42 PM CDT [facility] Blood BLOOD SPECIMEN / Unknown Venipuncture / Unknown 06/10/2024 2:07 PM CDT 06/10/2024 2:16 PM CDT Narrative [facility] - 06/10/2024 2:42 PM CDT See institution protocol. Data does not support the use of vancomycin peak concentration for efficacy. us Darlnee Sears MD LAB - CHEMISTRY ORDERABLES Final Result Performing Organization Address City/[facility]/ZIP Co de Phone Number [address] [address], [place] [phone] * FL SWALLOWING FUNCTION STUDY (06/09/2024 8:58 AM CDT) Anatomical Region Laterality Modality Chest Digital Radiogra phy 06/09/2024 9:49 AM CDT Narrative 06/10/2024 10:54 AM CDT PROCEDURE: FL SWALLOWING FUNCTION STUDY DATE/TIME OF EXAM: 06/09/2024 9:21 AM CLINICAL INFORMATION: None relevant/not provided if blank. 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 TECHNIQUE: Modified barium swallow fluoroscopy performed in conjunction with speech pathology staff. The speech pathologist administered varying thickness barium liquids and solids under direct Cine fluoroscopy. FINDINGS/IMPRESSION: Fluoroscopy provided for the purpose of speech pathology swallowing study. Please see speech pathology report for details. FLUOROSCOPY DOSE: 5.01 mGy Reference air kerma (ka,r). Report dictated by Fitz Roque MD, (Joint Setter). Ishaan Pérez MD have personally reviewed and interpreted this examination/study. > Interpreting Provider: Ishaan Blancas MD on 06/10/2024 10:54 AM Procedure Note Ishaan Blancas MD - 06/10/2024 PROCEDURE: FL SWALLOWING FUNCTION STUDY DATE/TIME OF EXAM: 06/09/2024 9:21 AM CLINICAL INFORMATION: None relevant/not provided if blank. 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 TECHNIQUE: Modified barium swallow fluoroscopy performed in conjunction with speech pathology staff. The speech pathologist administered varying thickness barium liquids and solids under direct Cine fluoroscopy. FINDINGS/IMPRESSION: Fluoroscopy provided for the purpose of speech pathology swallowingstudy. Please see speech pathology report for details. FLUOROSCOPY DOSE: 5.01 mGy Reference air kerma (ka,r). Report dictated by Fitz Roque MD, (Joint Setter). Ishaan Pérez MD have personally reviewed and interpreted this examination/study. > Interpreting Provider: Ishaan Blancas MD on 06/10/2024 10:54 AM us Darlene Sears MD FLUOROSCOPY ORDERABLES Final Res ult * VANCOMYCIN LEVEL RANDOM (06/09/2024 7:45 AM CDT) Only the most recent of3 resultswithin the time period is included. Vancomycin Random 16.0 Therapeutic Ranges not established for random specimens ug/mL 06/09/2024 8:47 AM CDT [facility] Blood BLOOD SPECIMEN / Unknown Lab Venipuncture / Unknown 06/09/2024 7:45 AM CDT 06/09/2024 7:55 AM CDT Narrative [facility] - 06/09/2024 8:47 AM CDT See institution protocol. us Darlene Sears MD LAB - CHEMISTRY ORDERABLES Final Result [facility] [address] [place] [phone], [facility] [phone] * IR Picc Line Insert (06/08/2024 5:03 PM CDT) Anatomical Region Laterality Modality Chest, Upper Extremity Other Narrative 06/08/2024 5:00 PM CDT Chandni Mathis MD 06/09/2024 11:45 AM Department of Interventional Radiology Procedure Note: PICC line placement History: Pt is a 78 year old male with a past medical history most notable for HTN, HLD, and prior perforated appendicitis who presented as transfer from [facility] for MRSA bacteremia, complicated by spinal abscess and need a higher level of care Indication: IV antibiotic therapy Theater Education Teacher: Raymond Palm RN PA- Procedures: 1. Limited extremity ultrasound to assess vascular patency 2. Ultrasound guided access of the Right brachial vein. 3. Placement of peripherally inserted central line with magnetic tracking and ECG tip positioning system (MedLink). Anesthesia: Local anesthesia with 4mL of 1% Lidocaine without epinephrine Procedure in detail: Type of line placed: Single Lumen Power PICC The risks and benefits of PICC placement were explained to Patient. The risks include discussed include pain, inadvertent arterial puncture, infection, blood clots, phlebitis, and cardiac arrhythmias. They were able to consent to the PICC insertion. Timeout and hand hygiene completed prior to procedure. Traffic was limited in the room during the procedure. Skin prepped with appropriate antibacterial solution prior to skin puncture. Maximum sterile barrier precautions were used including sterile gown and gloves, hat, mask, eye protection and a large sterile drape. Limited ultrasound of the the brachial vein demonstrated patent and compressible vein. A rodríguez scale image was documented. The patient was given local anesthesia with 4 milliliters of 1% Lidocaine without epinephrine. The brachial vein was accessed using a micropuncture needle. The needle entry was documented. A 0.018-inch guidewire was then advanced centrally. A small dermatotomy was made at the puncture site, and then the peel-away sheath was advanced into the vein. The length of the catheter was assessed with magnetic tracking and ECG tip positioning system. The PICC line pre-loaded with magnetic tip was then introduced through the peel-away sheath and advanced to the right atrium near the cavoatrial junction. The single lumen PICC was placed using the Seldinger technique with a Right brachialapproach without complication. There was dark, non-pulsatile blood return in all ports and they were easily flushed with saline. The tip of the catheter was guided by the magnetic tracking and ECG tip positioning system (Talkray), The peel-away sheath was removed, and the PICC was secured to the skin with a engineered securement device. An overlying dressing was placed. PICC tip position was verified by ultrasound ECG device. This showed PICC tip in good position in the distal SVC. Reposition of the PICC was not indicated. The patient tolerated the procedure well. Patient Guide Booklet and Fact Sheet for preventing infection placed in chart for discharge packet. Reviewed with: patient and RN Complications: none. All the ports were aspirated and flushed to assure patency. The patient tolerated this procedure without apparent immediate complication. Impression: Successful placement of 47 cm PICC Fr: 4 Fr single lumen power PICC via the Right brachial vein with tip in the cavo-atrial junction. The procedure was performed by Raymond Palm RN [place]-. The final image was reviewed by , Interventional Radiology Attending- IR Attending: Chandni Mathis MD The catheter can be used now. Darlene Sears MD IR ORDERABLES Final Result * XR Lumbar Spine 2 or 3Vw (06/08/2024 11:53 AM CDT) Anatomical Region Laterality Modality Spine Digital Radiogra phy 06/08/2024 3:54 PM CDT Impressions 06/08/2024 6:15 PM CDT IMPRESSION: Severe multilevel degenerative disc disease. No traumatic malalignment or definitive compression deformity within the constraints of this exam. Report dictated by Danilo Angel MD (founder president and ceo). Chantel Pérez MD have personally reviewed and interpreted this examination/study. 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 The lateral radiographs are suboptimal due to soft tissue artifact. Pigtail drain is partially imaged in the region of the right psoas musculature. No traumatic malalignment. Mild levoscoliosis of the lumbar spine. No compression deformity. Severe multilevel degenerative disc disease. Multilevel facet arthropathy. Bone density and texture are normal. Atherosclerotic calcification of the abdominal aorta. 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 The lateral radiographsare suboptimal due to soft tissue artifact. Pigtail drain is partially imaged in the region of the right psoas musculature. No traumatic malalignment. Mild levoscoliosis of the lumbar spine. No compression deformity. Severe multilevel degenerative disc disease. Multilevel facet arthropathy. Bone density and texture are normal. Atherosclerotic calcification of the abdominal aorta. IMPRESSION: Severe multilevel degenerative disc disease. No traumatic malalignmentor definitive compression deformity within the constraints of this exam. Report dictated by Danilo Angel MD (founder president and ceo). I, Chantel Ga MD have personally reviewed and interpreted this examination/study. > Interpreting Provider: Chantel Ga MD on 06/08/2024 6:15 PM Darlene Sears MD DIAGNOSTIC IMAGING ORDERABLES Fi nal Result * (ABNORMAL) CBC W AUTO DIFFERENTIAL (06/07/2024 7:06 AM T) Only the most recent of3 resultswithin the time period is included. WBC 7.8 4.0 - 10.7 x10E9/L 06/07/2024 7:43 AM [facility] RBC Count 3.05(L) 4.30 - 5.80 x10E12/L 06/07/2024 7:43 AM [facility] Hemoglobin 9.2(L) 13.3 - 17.5 g/dL 06/07/2024 7:43 AM [facility] Hematocrit 28.6(L) 38.7 - 51.1 % 06/07/2024 7:43 AM [facility] MCV 93.8 80.0 - 98.0 fL 06/07/2024 7:43 AM [facility] MCH 30.2 26.7 - 33.6 pg 06/07/2024 7:43 AM [facility] MCHC 32.2 31.7 - 36.3 g/dL 06/07/2024 7:43 AM [facility] RDW-CV 17.2(H) 11.3 - 14.8 % 06/07/2024 7:43 AM [facility] Platelet Count 295 150 - 420 x10E9/L 06/07/2024 7:43 AM [facility] MPV 12.0(H) 7.8 - 11.4 fL 06/07/2024 7:43 AM [facility] Neutrophil % 52.0 41.0 - 74.0 % 06/07/2024 7:43 AM [facility] Lymphocyte % 28.9 17.0 - 47.0 % 06/07/2024 7:43 AM [facility] Monocyte % 10.2 3.0 - 11.0 % 06/07/2024 7:43 AM [facility] Eosinophil % 7.5(H) 0.0 - 7.0 % 06/07/2024 7:43 AM [facility] Basophil % 0.6 0.0 - 1.6 % 06/07/2024 7:43 AM [facility] Immature Granulocytes % 0.8 0.0 - 1.0 % 06/07/2024 7:43 AM [facility] Neutrophil Absolute 4.05 1.60 - 7.50 x10E9/L 06/07/2024 7:43 AM [facility] Lymphocyte Absolute 2.25 1.00 - 4.40 x10E9/L 06/07/2024 7:43 AM [facility] Monocyte Absolute 0.79 0.15 - 1.00 x10E9/L 06/07/2024 7:43 AM [facility] Eosinophil Absolute 0.58 0.00 - 0.60 x10E9/L 06/07/2024 7:43 AM [facility] Basophil Absolute 0.05 0.00 - 0.13 x10E9/L 06/07/2024 7:43 AM [facility] Blood BLOOD SPECIMEN / Unknown Lab Venipuncture / Unknown 06/07/2024 7:06 AM CDT 06/07/2024 7:34 AM CDT us Danilo Don DO LAB - HEMATOLOGY ORDERABLES Collette l Result [address] [address], [facility] [phone] * (ABNORMAL) COMPREHENSIVE METABOLIC PANEL (06/07/2024 7:06 AM CDT) Only the most recent of3 resultswithin the time period is included. BUN 43(H) 7 - 26 mg/dL 06/07/2024 8:03 AM [facility] Creatinine 1.51(H) 0.71 - 1.16 mg/dL 06/07/2024 8:03 AM [facility] Sodium 138 136 - 145 mmol/L 06/07/2024 8:03 AM [facility] Potassium 4.2 3.5 - 4.5 mmol/L 06/07/2024 8:03 AM [facility] Chloride 103 98 - 107 mmol/L 06/07/2024 8:03 AM [facility] CO2 23 22 - 29 mmol/L 06/07/2024 8:03 AM [facility] Glucose 99 70 - 99 mg/dL 06/07/2024 8:03 AM [facility] Calcium 8.3(L) 8.4 - 10.2 mg/dL 06/07/2024 8:03 AM [facility] Protein Total 6.8 6.0 - 8.3 g/dL 06/07/2024 8:03 AM [facility] Albumin 2.4(L) 3.4 - 5.0 g/dL 06/07/2024 8:03 AM [facility] Bilirubin Total 0.4 0.2 - 1.2 mg/dL 06/07/2024 8:03 AM [facility] Alkaline Phosphatase 89 40 - 150 U/L 06/07/2024 8:03 AM [facility] ALT 11 5 - 55 U/L 06/07/2024 8:03 AM [facility] AST 20 5 - 34 U/L 06/07/2024 8:03 AM [facility] Anion Gap 12 6 - 16 06/07/2024 8:03 AM [facility] BUN/Creatinine Ratio 28(H) 7 - 23 06/07/2024 8:03 AM [facility] Osmolality Calculated 297(H) 275 - 295 mOsm/kg 06/07/2024 8:03 AM [facility] Albumin/Globulin Ratio 0.5(L) 1.1 - 2.3 06/07/2024 8:03 AM [facility] eGFR by CKD-EPI 48(L) >=90 mL/min/1.7 3 m2 06/07/2024 8:03 AM CDT [facility] Blood BLOOD SPECIMEN / Unknown Lab Venipuncture / Unknown 06/07/2024 7:06 AM CDT 06/07/2024 7:33 AM CDT us Daniloronald Alonzoin DO LAB - CHEMISTRY ORDERABLES Final Result [facility] [address] [place] [address], [place] [phone] * PHOSPHORUS BLOOD (06/07/2024 7:06 AM CDT) Only the most recent of3 resultswithin the time period is included. Phosphorus 3.9 2.8 - 5.1 mg/dL 06/07/2024 8:03 AM CDT [facility] Blood BLOOD SPECIMEN / Unknown Lab Venipuncture / Unknown 06/07/2024 7:06 AM CDT 06/07/2024 7:33 AM CDT us Daniloronald Alonzoin DO LAB - CHEMISTRY ORDERABLES Final Result [address] [address], [place] [phone] * XR Knee Left 2Vw or Less (06/06/2024 3:11 PM CDT) Anatomical Region Laterality Modality Lower Extremity Digital Radiogra phy 06/07/2024 12:3 5 AM CDT Impressions 06/07/2024 12:35 AM CDT IMPRESSION: There is severe medial compartment predominant tricompartmental left knee osteoarthritis. There is a moderate knee effusion. No acute fracture. Alignment is normal. > Interpreting Provider: Colten Henderson MD on 06/07/2024 12:35 AM Narrative 06/07/2024 12:35 AM CDT PROCEDURE: XR KNEE LEFT 2VW OR LESS DATE/TIME OF EXAM: 06/06/2024 3:13 PM CLINICAL INFORMATION: None relevant/not provided if blank. Indication: M25.562: Acute pain of left knee Additional History: COMPARISON: None. Procedure Note Colten Henderson MD - 06/07/2024 PROCEDURE: XR KNEE LEFT 2VW OR LESS DATE/TIME OF EXAM: 06/06/2024 3:13 PM CLINICAL INFORMATION: None relevant/not provided if blank. Indication: M25.562: Acute pain of left knee Additional History: COMPARISON: None. IMPRESSION: There is severe medial compartment predominant tricompartmental leftknee osteoarthritis. There is a moderate knee effusion. No acute fracture. Alignment is normal. > Interpreting Provider: Colten Henderson MD on 06/07/2024 12:35 AM [facility] DIRECTOR-DEVELOPER [employer] DIAGNOSTIC IMAGING ORDE RABLES Final Result * VAS ARTERIAL ANKLE ARM INDEX (06/06/2024 1:35 PM CDT) Anatomical Region Laterality Modality Ankle / Foot, Upper Extremity Ul trasound 06/06/2024 1:09 AM CDT Narrative Procedure Note Shoaib Jerome MD - 06/06/2024 Asmita Pearson MD VASCULAR LAB ORDERABLES Edited Result - Final * URIC ACID BLOOD (06/06/2024 6:48 AM CDT) Uric Acid 5.9 3.5 - 7.2 mg/dL 06/06/2024 7:17 AM CDT [facility] Blood BLOOD SPECIMEN / Unknown Venipuncture / Unknown 06/06/2024 6:48 AM CDT 06/06/2024 6:53 AM CDT Danilo Don DO LAB - CHEMISTRY ORDERABLES Final Result [facility] [address] [place] [address], [place] [phone] * XR Wrist Left 3Vw or More (06/06/2024 6:24 AM CDT) Anatomical Region Laterality Modality Wrist / Hand Digital Radiogra phy 06/06/2024 7:36 AM CDT Narrative 06/06/2024 8:30 AM CDT PROCEDURE: XR WRIST LEFT 3VW OR MORE, DATE/TIME OF EXAM: 06/06/2024 6:43 AM, LOCATION [facility] INDICATION: M25.531: Pain in both wrists M25.532: Pain in both wrists ADDITIONAL CLINICAL INFORMATION: Ordering Provider Reason For Exam: fx? COMPARISON: CT from 06/05/2024. FINDINGS/IMPRESSION: Severe arthritis of the radiocarpal, ulnocarpal, proximal and distal carpal bone joints with associated subchondral sclerosis, subchondral cyst, and joint space narrowing. Severe first carpometacarpal joint arthritis. Scapholunate widening secondary to advanced arthritis suggestive of scapholunate advanced collapse. No acute fracture or dislocation. These findings were better evaluated on CT. Report dictated by Fitz Roque MD, (Joint Setter). Chantel Pérez MD have personally reviewed and interpreted this examination/study. > Interpreting Provider: Chantel Ga MD on 06/06/2024 8:30 AM Procedure Note Chantel Ga MD - 06/06/2024 PROCEDURE: XR WRIST LEFT 3VW OR MORE, DATE/TIME OF EXAM: 56:43 AM, LOCATION [facility] INDICATION: M25.531: Pain in both wrists M25.532: Pain in both wrists ADDITIONAL CLINICAL INFORMATION: Ordering Provider Reason For Exam: fx? COMPARISON: CT from 06/05/2024. FINDINGS/IMPRESSION: Severe arthritis of the radiocarpal, ulnocarpal, proximal and distalcarpal bone joints with associated subchondral sclerosis, subchondral cyst, and joint space narrowing. Severe first carpometacarpal joint arthritis. Scapholunate widening secondary to advanced arthritis suggestive of scapholunate advanced collapse. No acute fracture or dislocation. These findings were better evaluated on CT. Report dictated by Fitz Roque MD, (Joint Setter). Chantel Pérez MD have personally reviewed and interpreted this examination/study. > Interpreting Provider: Chantel Ga MD on 06/06/2024 8:30 AM us Danilo Don DO DIAGNOSTIC IMAGING ORDERABLES Fi nal Result * XR Wrist Right 3Vw or More (06/06/2024 6:11 AM CDT) Anatomical Region Laterality Modality Wrist / Hand Digital Radiogra phy 06/06/2024 7:36 AM CDT Impressions 06/06/2024 8:42 AM CDT IMPRESSION: 1.No acute fracture or dislocation identified. 2.Advanced wrist arthritis. Report dictated by Danilo Angel MD (founder president and ceo). I, Chantel Ga MD have personally reviewed and interpreted this examination/study. > Interpreting Provider: Chantel Ga MD on 06/06/2024 8:42 AM Narrative 06/06/2024 8:42 AM CDT PROCEDURE: XR WRIST RIGHT 3VW OR MORE, DATE/TIME OF EXAM: 06/06/2024 6:42 AM, LOCATION [facility] INDICATION: M25.531: Pain in both wrists M25.532: Pain in both wrists ADDITIONAL CLINICAL INFORMATION: Ordering Provider Reason For Exam: fx? Technologist Note: Additional: COMPARISON: None. FINDINGS: No acute displaced fracture. Advanced arthritis of the radiocarpal, radioulnar, carpal, and first carpometacarpal joints characterized by joint space narrowing, subchondral sclerosis, and subchondral cysts. There is a large subchondral cyst within the distal radius. Lateral subluxation of the first metacarpal relative to the carpometacarpal joint, likely from sequela of degenerative changes. Widening of the scapholunate interval suggestive of scapholunate advanced collapse. Diffuse soft tissue swelling is present. These findings were better evaluated on prior CT. Procedure Note Chantel Ga MD - 06/06/2024 PROCEDURE: XR WRIST RIGHT 3VW OR MORE, DATE/TIME OF EXAM: 56:42 AM, LOCATION [facility] INDICATION: M25.531: Pain in both wrists M25.532: Pain in both wrists ADDITIONAL CLINICAL INFORMATION: Ordering Provider Reason For Exam: fx? Technologist Note: Additional: COMPARISON: None. FINDINGS: No acute displaced fracture. Advanced arthritis of the radiocarpal, radioulnar, carpal, and first carpometacarpal joints characterized byjoint space narrowing, subchondral sclerosis, and subchondral cysts. There rebekah large subchondral cyst within the distal radius. Lateral subluxation ofthe first metacarpal relative to the carpometacarpal joint, likely fromsequela of degenerative changes. Widening of the scapholunate intervalsuggestive of scapholunate advanced collapse. Diffuse soft tissue swelling ispresent. These findings were better evaluated on prior CT. IMPRESSION: 1.No acute fracture or dislocation identified. 2.Advanced wrist arthritis. Report dictated by Danilo Angel MD (founder president and ceo). I, Chantel Ga MD have personally reviewed and interpreted this examination/study. > Interpreting Provider: Chantel Ga MD on 06/06/2024 8:42 AM Danilo Don DO DIAGNOSTIC IMAGING ORDERABLES Fi nal Result * CT Wrist Left W Contrast (06/05/2024 6:04 PM CDT) Anatomical Region Laterality Modality Wrist / Hand Computed Tomogra phy 06/06/2024 7:32 AM CDT Impressions 06/06/2024 8:03 AM CDT IMPRESSION: Severe arthritis bilaterally. Report dictated by Lilian Campbell MD I, Stephen Huebner, MD have personally reviewed and interpreted this examination/study. 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 TECHNIQUE: Axial CT images of the left and right wrist after the administration of 100 mL of Isovue 370. Coronal and sagittal reformatted images were submitted. FINDINGS: Right wrist: Bones: Is some joint space, subchondral sclerosis, osteophytes and subchondral cysts and/or erosions. There is widening of the scapholunate interval and proximal migration of the capitate consistent with scapholunate advanced collapse. Soft tissues: There is no effusion or fluid collection. Left wrist: Bones: Is some joint space, subchondral sclerosis, osteophytes and subchondral cysts and/or erosions. There is widening of the scapholunate interval and proximal migration of the capitate consistent with scapholunate advanced collapse. Soft tissues: There is no effusion or fluid collection. 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 TECHNIQUE: Axial CT images of the left and right wrist after the administration of 100 mL of Isovue 370. Coronal and sagittal reformatted images were submitted. FINDINGS: Right wrist: Bones: Is some joint space, subchondral sclerosis, osteophytes and subchondral cysts and/or erosions. There is widening of the scapholunate interval and proximal migration of the capitate consistent with scapholunate advanced collapse. Soft tissues: There is no effusion or fluid collection. Left wrist: Bones: Is some joint space, subchondral sclerosis, osteophytes and subchondral cysts and/or erosions. There is widening of the scapholunate interval and proximal migration of the capitate consistent with scapholunate advanced collapse. Soft tissues: There is no effusion or fluid collection. IMPRESSION: Severe arthritis bilaterally. Report dictated by Lilian Campbell MD I, Kevin Kim MD have personally reviewed and interpreted this examination/study. > Interpreting Provider: Kevin Kim MD on 06/06/2024 8:03 AM us Danilo Don DO CT ORDERABLES Final Result * CT Wrist Right W Contrast (06/05/2024 6:04 PM CDT) Anatomical Region Laterality Modality Wrist / Hand Computed Tomogra phy 06/06/2024 7:32 AM CDT Impressions 06/06/2024 8:03 AM CDT IMPRESSION: Severe arthritis bilaterally. Report dictated by Lilian Campbell MD I, Kevin Kim MD have personally reviewed and interpreted this examination/study. 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 TECHNIQUE: Axial CT images of the left and right wrist after the administration of 100 mL of Isovue 370. Coronal and sagittal reformatted images were submitted. FINDINGS: Right wrist: Bones: Is some joint space, subchondral sclerosis, osteophytes and subchondral cysts and/or erosions. There is widening of the scapholunate interval and proximal migration of the capitate consistent with scapholunate advanced collapse. Soft tissues: There is no effusion or fluid collection. Left wrist: Bones: Is some joint space, subchondral sclerosis, osteophytes and subchondral cysts and/or erosions. There is widening of the scapholunate interval and proximal migration of the capitate consistent with scapholunate advanced collapse. Soft tissues: There is no effusion or fluid collection. 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 TECHNIQUE: Axial CT images of the left and right wrist after the administration of 100 mL of Isovue 370. Coronal and sagittal reformatted images were submitted. FINDINGS: Right wrist: Bones: Is some joint space, subchondral sclerosis, osteophytes and subchondral cysts and/or erosions. There is widening of the scapholunate interval and proximal migration of the capitate consistent with scapholunate advanced collapse. Soft tissues: There is no effusion or fluid collection. Left wrist: Bones: Is some joint space, subchondral sclerosis, osteophytes and subchondral cysts and/or erosions. There is widening of the scapholunate interval and proximal migration of the capitate consistent with scapholunate advanced collapse. Soft tissues: There is no effusion or fluid collection. IMPRESSION: Severe arthritis bilaterally. Report dictated by Lilian Campbell MD I, Kevin Kim MD have personally reviewed and interpreted this examination/study. > Interpreting Provider: Kevin Kim MD on 06/06/2024 8:03 AM us Daniloronald Don DO CT ORDERABLES Final Result * CT Lumbar Spine Wo Contrast (06/05/2024 6:04 PM CDT) Anatomical Region Laterality Modality Spine Computed Tomogra phy 06/05/2024 6:57 PM CDT Impressions 06/05/2024 7:37 PM CDT IMPRESSION: 1.No evidence of acute fracture in the cervical, thoracic, or lumbar spine. 2.There is sclerosis of the odontoid process, correlating with STIR hyperintensity and enhancement on the prior MRI. 3.Multilevel degenerative disc and joint disease of the cervical, thoracic, and lumbar spine as detailed above. 4.There is severe spinal canal stenosis at L4-L5 and the L3-L4. 5.Advanced osteoarthritis of the lumbar spine. 6.Odom catheter extending from the right psoas muscle posteriorly. The right psoas muscle appears enlarged as compared to the left. Evaluation of the soft tissues is limited on noncontrast CT. Please refer to the prior MRI for additional details. 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 Additional: Pt presented to [facility] hospital on 04/22 complaining of abdominal pain, hypotensive and tachycardic. Abdominal imaging concerning for perforated viscous. Pt underwent emil-lap + repair of large perforated gastric ulcer with omental Clarence patch and G-tube placement by general surgery. Pt then admitted to ICU for septic shock iso peritonitis. Blood cultures grew MRSA (last positive was 05/27). As part of MRSA work-up, TTE on 05/02 did not show signs of valvular disease. Given patient's vulnerable GI track, Cardiology at [facility] did not feel comfortable performing EMPERATRIZ (given risk of passing larger probe into esophagus). Instead, recommended treating presumptively for endocarditis and considering repeat Echo at end of treatment course. Most recent CT A/P on 05/22 concerning for small abscess/fistula adjacent to recent perforation, non-fluid density in peritoneum and psoas, and opacities in R lung. No further intervention per most recent surgery evaluation. Patient also underwent MRI spine sen-scan on 05/26 - showing prevertebral soft tissue swelling concerning for small abscess at base of the dens. No acute findings in T-spine. Increased disc signal at L1-L2 through L4-L5, possible discitis. Also concerning for loculated R psoas mm abscess. Pt underwent CT-guided R Psoas drain placement on 05/27. Cultures grew MRSA. Pt finished course of broad spectrum antibiotics (for presumed PNA) then narrowed to IV Vancomycin for MRSA. [facility] did not have ID and Spine Surgery available, so patient transferred to [facility] for further care. TECHNIQUE: CT of the cervical spine was performed without contrast according to standard protocol. Reformatted axial, sagittal, and coronal images of the thoracic and lumbar spine were obtained by the technologist from a concurrently performed body CT and sent to the workstation for review. CT dose reduction technique was used, including Automated Exposure Control. COMPARISON: MRI of the cervical, thoracic, and lumbar spine. FINDINGS: Cervical spine: There is gentle cervical kyphosis. Mild anterolisthesis of C2 on C3 and C3 on C4. The bones are diffusely osteopenic. There is sclerosis of the odontoid process correlating with STIR hyperintensity and enhancement on the prior MRI. The vertebral bodies are normal in height without evidence of acute fracture. Other than middle atlantoaxial joint osteoarthritis, the craniocervical junction appears normal. There is mild to advanced degenerative disc disease, worse at C5-C6 and C6-C7. No high-grade central canal stenosis is seen. There are varying degrees of advanced facet osteoarthritis. There are varying degrees of advanced uncovertebral joint osteoarthritis with the same degree of neural foraminal stenosis at these levels. There is atherosclerotic calcification of the carotid bifurcations. Numerous scattered small cervical lymph nodes are nonspecific. Thoracic spine: S-shaped curvature of the thoracic spine. Minimal anterolisthesis of T3 on T4 and T4 on T5. The alignment is otherwise maintained. The bones are mildly osteopenic. Vertebral bodies are normal in height without evidence of acute fracture. Schmorl's nodes are present at multiple levels. Mild multilevel central canal stenosis is seen. There is mild to moderate facet osteoarthritis at multiple levels. There are varying degrees of neural foraminal stenosis at multiple levels. Bilateral pleural effusions and adjacent atelectasis, left more than right. There is a adjacent left lower lobe consolidation. There is atherosclerotic calcification of the thoracic aorta and its branch vessels. Lumbar spine: S-shaped scoliosis of the lumbar spine. Minimal retrolisthesis of L3 on L4 and L5 on S1. Trace anterolisthesis of L4 on L5. Vertebral bodies are normal in height without evidence of acute fracture. There is advanced degenerative disc disease. Multilevel, severe central canal stenosis is seen at multiple levels, worst at L4-L5 and L3-L4, and to a lesser extent at the other levels.. There is advanced facet osteoarthritis at multiple levels. There are varying degrees of neural foraminal stenosis at multiple levels. A Odom catheter is seen in the right psoas muscle. The right psoas muscle appears enlarged as compared to the left. Evaluation of the soft tissues is limited on noncontrast CT. Please refer to the prior MRI for additional details. There is atherosclerotic calcification of the abdominal aorta and its branch vessels. There are degenerative changes of the SI joints. 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 Additional: Pt presented to [facility] on 04/22 complaining ofabdominal pain, hypotensive and tachycardic. Abdominal imaging concerning for perforated viscous. Pt underwent emil-lap + repair of large perforated gastric ulcer with omental Clarence patch and G-tube placement by general surgery. Pt then admitted to ICU for septic shock iso peritonitis. Blood cultures grew MRSA (last positive was 05/27). As part of MRSA work-up,TTE on 05/02 did not show signs of valvular disease. Given patient'svulnerable GI track, Cardiology at [facility] did not feel comfortable performing EMPERATRIZ(given risk of passing larger probe into esophagus). Instead, recommendedtreating presumptively for endocarditis and considering repeat Echo at end of treatment course. Most recent CT A/P on 05/22 concerning for small abscess/fistula adjacent to recent perforation, non-fluid density in peritoneum and psoas, and opacities in R lung. No further interventionper most recent surgery evaluation. Patient also underwent MRI spinepan-scan on 05/26 - showing prevertebral soft tissue swelling concerning for small abscess at base of the dens. No acute findings in T-spine. Increaseddisc signal at L1-L2 through L4-L5, possible discitis. Also concerning for loculated R psoas mm abscess. Pt underwent CT-guided R Psoas drain placement on 05/27. Cultures grew MRSA. Pt finished course of broadspectrum antibiotics (for presumed PNA) then narrowed to IV Vancomycin for MRSA.[facility] did not have ID and Spine Surgery available, so patient transferred [facility] for further care. TECHNIQUE: CT of the cervical spine was performed without contrast according to standard protocol. Reformatted axial, sagittal, and coronal images of the thoracic and lumbar spine were obtained by thetechnologist from a concurrently performed body CT and sent to the workstation for review. CT dose reduction technique was used, including AutomatedExposure Control. COMPARISON: MRI of the cervical, thoracic, and lumbar spine. FINDINGS: Cervical spine: There is gentle cervical kyphosis. Mild anterolisthesis of C2 on C3 andC3 on C4. The bones are diffusely osteopenic. There is sclerosis of the odontoid process correlating with STIR hyperintensity and enhancement on the prior MRI. The vertebral bodies are normal in height withoutevidence of acute fracture. Other than middle atlantoaxial joint osteoarthritis,the craniocervical junction appears normal. There is mild to advanced degenerative disc disease, worse at C5-C6 and C6-C7. No high-gradecentral canal stenosis is seen. There are varying degrees of advanced facet osteoarthritis. There are varying degrees of advanced uncovertebraljoint osteoarthritis with the same degree of neural foraminal stenosis atthese levels. There is atherosclerotic calcification of the carotidbifurcations. Numerous scattered small cervical lymph nodes are nonspecific. Thoracic spine: S-shaped curvature of the thoracic spine. Minimal anterolisthesis of T3on T4 and T4 on T5. The alignment is otherwise maintained. The bones are mildly osteopenic. Vertebral bodies are normal in height withoutevidence of acute fracture. Schmorl's nodes are present at multiple levels. Mild multilevel central canal stenosis is seen. There is mild to moderatefacet osteoarthritis at multiple levels. There are varying degrees of neural foraminal stenosis at multiple levels. Bilateral pleural effusions and adjacent atelectasis, left more than right. There is a adjacent leftlower lobe consolidation. There is atherosclerotic calcification of thethoracic aorta and its branch vessels. Lumbar spine: S-shaped scoliosis of the lumbar spine. Minimal retrolisthesis of L3 onL4 and L5 on S1. Trace anterolisthesis of L4 on L5. Vertebral bodies are normal in height without evidence of acute fracture. There is advanced degenerative disc disease. Multilevel, severe central canal stenosis is seen at multiple levels, worst at L4-L5 and L3-L4, and to a lesserextent at the other levels.. There is advanced facet osteoarthritis at multiple levels. There are varying degrees of neural foraminal stenosis atmultiple levels. A Odom catheter is seen in the right psoas muscle. The rightpsoas muscle appears enlarged as compared to the left. Evaluation of the soft tissues is limited on noncontrast CT. Please refer to the prior MRI for additional details. There is atherosclerotic calcification of theabdominal aorta and its branch vessels. There are degenerative changes of the SI joints. IMPRESSION: 1.No evidence of acute fracture in the cervical, thoracic, or lumbarspine. 2.There is sclerosis of the odontoid process, correlating with STIR hyperintensity and enhancement on the prior MRI. 3.Multilevel degenerative disc and joint disease of the cervical,thoracic, and lumbar spine as detailed above. 4.There is severe spinal canal stenosis at L4-L5 and the L3-L4. 5.Advanced osteoarthritis of the lumbar spine. 6.Odom catheter extending from the right psoas muscle posteriorly. The right psoas muscle appears enlarged as compared to the left. Evaluationof the soft tissues is limited on noncontrast CT. Please refer to the prior MRI for additional details. > Interpreting Provider: Lavon Giron MD on 06/05/2024 7:37 PM us Danilo Don DO CT ORDERABLES Final Result * CT Thoracic Spine Wo Contrast (06/05/2024 6:04 PM CDT) Anatomical Region Laterality Modality Spine Computed Tomogra phy 06/05/2024 6:57 PM CDT Impressions 06/05/2024 7:37 PM CDT IMPRESSION: 1.No evidence of acute fracture in the cervical, thoracic, or lumbar spine. 2.There is sclerosis of the odontoid process, correlating with STIR hyperintensity and enhancement on the prior MRI. 3.Multilevel degenerative disc and joint disease of the cervical, thoracic, and lumbar spine as detailed above. 4.There is severe spinal canal stenosis at L4-L5 and the L3-L4. 5.Advanced osteoarthritis of the lumbar spine. 6.Odom catheter extending from the right psoas muscle posteriorly. The right psoas muscle appears enlarged as compared to the left. Evaluation of the soft tissues is limited on noncontrast CT. Please refer to the prior MRI for additional details. 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 Additional: Pt presented to [facility] hospital on 04/22 complaining of abdominal pain, hypotensive and tachycardic. Abdominal imaging concerning for perforated viscous. Pt underwent emil-lap + repair of large perforated gastric ulcer with omental Clarence patch and G-tube placement by general surgery. Pt then admitted to ICU for septic shock iso peritonitis. Blood cultures grew MRSA (last positive was 05/27). As part of MRSA work-up, TTE on 05/02 did not show signs of valvular disease. Given patient's vulnerable GI track, Cardiology at [facility] did not feel comfortable performing EMPERATRIZ (given risk of passing larger probe into esophagus). Instead, recommended treating presumptively for endocarditis and considering repeat Echo at end of treatment course. Most recent CT A/P on 05/22 concerning for small abscess/fistula adjacent to recent perforation, non-fluid density in peritoneum and psoas, and opacities in R lung. No further intervention per most recent surgery evaluation. Patient also underwent MRI spine sen-scan on 05/26 - showing prevertebral soft tissue swelling concerning for small abscess at base of the dens. No acute findings in T-spine. Increased disc signal at L1-L2 through L4-L5, possible discitis. Also concerning for loculated R psoas mm abscess. Pt underwent CT-guided R Psoas drain placement on 05/27. Cultures grew MRSA. Pt finished course of broad spectrum antibiotics (for presumed PNA) then narrowed to IV Vancomycin for MRSA. [facility] did not have ID and Spine Surgery available, so patient transferred to [facility] for further care. TECHNIQUE: CT of the cervical spine was performed without contrast according to standard protocol. Reformatted axial, sagittal, and coronal images of the thoracic and lumbar spine were obtained by the technologist from a concurrently performed body CT and sent to the workstation for review. CT dose reduction technique was used, including Automated Exposure Control. COMPARISON: MRI of the cervical, thoracic, and lumbar spine. FINDINGS: Cervical spine: There is gentle cervical kyphosis. Mild anterolisthesis of C2 on C3 and C3 on C4. The bones are diffusely osteopenic. There is sclerosis of the odontoid process correlating with STIR hyperintensity and enhancement on the prior MRI. The vertebral bodies are normal in height without evidence of acute fracture. Other than middle atlantoaxial joint osteoarthritis, the craniocervical junction appears normal. There is mild to advanced degenerative disc disease, worse at C5-C6 and C6-C7. No high-grade central canal stenosis is seen. There are varying degrees of advanced facet osteoarthritis. There are varying degrees of advanced uncovertebral joint osteoarthritis with the same degree of neural foraminal stenosis at these levels. There is atherosclerotic calcification of the carotid bifurcations. Numerous scattered small cervical lymph nodes are nonspecific. Thoracic spine: S-shaped curvature of the thoracic spine. Minimal anterolisthesis of T3 on T4 and T4 on T5. The alignment is otherwise maintained. The bones are mildly osteopenic. Vertebral bodies are normal in height without evidence of acute fracture. Schmorl's nodes are present at multiple levels. Mild multilevel central canal stenosis is seen. There is mild to moderate facet osteoarthritis at multiple levels. There are varying degrees of neural foraminal stenosis at multiple levels. Bilateral pleural effusions and adjacent atelectasis, left more than right. There is a adjacent left lower lobe consolidation. There is atherosclerotic calcification of the thoracic aorta and its branch vessels. Lumbar spine: S-shaped scoliosis of the lumbar spine. Minimal retrolisthesis of L3 on L4 and L5 on S1. Trace anterolisthesis of L4 on L5. Vertebral bodies are normal in height without evidence of acute fracture. There is advanced degenerative disc disease. Multilevel, severe central canal stenosis is seen at multiple levels, worst at L4-L5 and L3-L4, and to a lesser extent at the other levels.. There is advanced facet osteoarthritis at multiple levels. There are varying degrees of neural foraminal stenosis at multiple levels. A Odom catheter is seen in the right psoas muscle. The right psoas muscle appears enlarged as compared to the left. Evaluation of the soft tissues is limited on noncontrast CT. Please refer to the prior MRI for additional details. There is atherosclerotic calcification of the abdominal aorta and its branch vessels. There are degenerative changes of the SI joints. 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 Additional: Pt presented to [facility] on 04/22 complaining ofabdominal pain, hypotensive and tachycardic. Abdominal imaging concerning for perforated viscous. Pt underwent emil-lap + repair of large perforated gastric ulcer with omental Clarence patch and G-tube placement by general surgery. Pt then admitted to ICU for septic shock iso peritonitis. Blood cultures grew MRSA (last positive was 05/27). As part of MRSA work-up,TTE on 05/02 did not show signs of valvular disease. Given patient'svulnerable GI track, Cardiology at [facility] did not feel comfortable performing EMPERATRIZ(given risk of passing larger probe into esophagus). Instead, recommendedtreating presumptively for endocarditis and considering repeat Echo at end of treatment course. Most recent CT A/P on 05/22 concerning for small abscess/fistula adjacent to recent perforation, non-fluid density in peritoneum and psoas, and opacities in R lung. No further interventionper most recent surgery evaluation. Patient also underwent MRI spinepan-scan on 05/26 - showing prevertebral soft tissue swelling concerning for small abscess at base of the dens. No acute findings in T-spine. Increaseddisc signal at L1-L2 through L4-L5, possible discitis. Also concerning for loculated R psoas mm abscess. Pt underwent CT-guided R Psoas drain placement on 05/27. Cultures grew MRSA. Pt finished course of broadspectrum antibiotics (for presumed PNA) then narrowed to IV Vancomycin for MRSA.[facility] did not have ID and Spine Surgery available, so patient transferred [facility] for further care. TECHNIQUE: CT of the cervical spine was performed without contrast according to standard protocol. Reformatted axial, sagittal, and coronal images of the thoracic and lumbar spine were obtained by thetechnologist from a concurrently performed body CT and sent to the workstation for review. CT dose reduction technique was used, including AutomatedExposure Control. COMPARISON: MRI of the cervical, thoracic, and lumbar spine. FINDINGS: Cervical spine: There is gentle cervical kyphosis. Mild anterolisthesis of C2 on C3 andC3 on C4. The bones are diffusely osteopenic. There is sclerosis of the odontoid process correlating with STIR hyperintensity and enhancement on the prior MRI. The vertebral bodies are normal in height withoutevidence of acute fracture. Other than middle atlantoaxial joint osteoarthritis,the craniocervical junction appears normal. There is mild to advanced degenerative disc disease, worse at C5-C6 and C6-C7. No high-gradecentral canal stenosis is seen. There are varying degrees of advanced facet osteoarthritis. There are varying degrees of advanced uncovertebraljoint osteoarthritis with the same degree of neural foraminal stenosis atthese levels. There is atherosclerotic calcification of the carotidbifurcations. Numerous scattered small cervical lymph nodes are nonspecific. Thoracic spine: S-shaped curvature of the thoracic spine. Minimal anterolisthesis of T3on T4 and T4 on T5. The alignment is otherwise maintained. The bones are mildly osteopenic. Vertebral bodies are normal in height withoutevidence of acute fracture. Schmorl's nodes are present at multiple levels. Mild multilevel central canal stenosis is seen. There is mild to moderatefacet osteoarthritis at multiple levels. There are varying degrees of neural foraminal stenosis at multiple levels. Bilateral pleural effusions and adjacent atelectasis, left more than right. There is a adjacent leftlower lobe consolidation. There is atherosclerotic calcification of thethoracic aorta and its branch vessels. Lumbar spine: S-shaped scoliosis of the lumbar spine. Minimal retrolisthesis of L3 onL4 and L5 on S1. Trace anterolisthesis of L4 on L5. Vertebral bodies are normal in height without evidence of acute fracture. There is advanced degenerative disc disease. Multilevel, severe central canal stenosis is seen at multiple levels, worst at L4-L5 and L3-L4, and to a lesserextent at the other levels.. There is advanced facet osteoarthritis at multiple levels. There are varying degrees of neural foraminal stenosis atmultiple levels. A Odom catheter is seen in the right psoas muscle. The rightpsoas muscle appears enlarged as compared to the left. Evaluation of the soft tissues is limited on noncontrast CT. Please refer to the prior MRI for additional details. There is atherosclerotic calcification of theabdominal aorta and its branch vessels. There are degenerative changes of the SI joints. IMPRESSION: 1.No evidence of acute fracture in the cervical, thoracic, or lumbarspine. 2.There is sclerosis of the odontoid process, correlating with STIR hyperintensity and enhancement on the prior MRI. 3.Multilevel degenerative disc and joint disease of the cervical,thoracic, and lumbar spine as detailed above. 4.There is severe spinal canal stenosis at L4-L5 and the L3-L4. 5.Advanced osteoarthritis of the lumbar spine. 6.Odom catheter extending from the right psoas muscle posteriorly. The right psoas muscle appears enlarged as compared to the left. Evaluationof the soft tissues is limited on noncontrast CT. Please refer to the prior MRI for additional details. > Interpreting Provider: Lavon Giron MD on 06/05/2024 7:37 PM us Danilo Don DO CT ORDERABLES Final Result * CT Cervical Spine Wo Contrast (06/05/2024 6:04 PM CDT) Anatomical Region Laterality Modality Spine Computed Tomogra phy 06/05/2024 6:57 PM CDT Impressions 06/05/2024 7:37 PM CDT IMPRESSION: 1.No evidence of acute fracture in the cervical, thoracic, or lumbar spine. 2.There is sclerosis of the odontoid process, correlating with STIR hyperintensity and enhancement on the prior MRI. 3.Multilevel degenerative disc and joint disease of the cervical, thoracic, and lumbar spine as detailed above. 4.There is severe spinal canal stenosis at L4-L5 and the L3-L4. 5.Advanced osteoarthritis of the lumbar spine. 6.Odom catheter extending from the right psoas muscle posteriorly. The right psoas muscle appears enlarged as compared to the left. Evaluation of the soft tissues is limited on noncontrast CT. Please refer to the prior MRI for additional details. 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 Additional: Pt presented to [facility] hospital on 04/22 complaining of abdominal pain, hypotensive and tachycardic. Abdominal imaging concerning for perforated viscous. Pt underwent emil-lap + repair of large perforated gastric ulcer with omental Clarence patch and G-tube placement by general surgery. Pt then admitted to ICU for septic shock iso peritonitis. Blood cultures grew MRSA (last positive was 05/27). As part of MRSA work-up, TTE on 05/02 did not show signs of valvular disease. Given patient's vulnerable GI track, Cardiology at [facility] did not feel comfortable performing EMPERATRIZ (given risk of passing larger probe into esophagus). Instead, recommended treating presumptively for endocarditis and considering repeat Echo at end of treatment course. Most recent CT A/P on 05/22 concerning for small abscess/fistula adjacent to recent perforation, non-fluid density in peritoneum and psoas, and opacities in R lung. No further intervention per most recent surgery evaluation. Patient also underwent MRI spine sen-scan on 05/26 - showing prevertebral soft tissue swelling concerning for small abscess at base of the dens. No acute findings in T-spine. Increased disc signal at L1-L2 through L4-L5, possible discitis. Also concerning for loculated R psoas mm abscess. Pt underwent CT-guided R Psoas drain placement on 05/27. Cultures grew MRSA. Pt finished course of broad spectrum antibiotics (for presumed PNA) then narrowed to IV Vancomycin for MRSA. [facility] did not have ID and Spine Surgery available, so patient transferred to [facility] for further care. TECHNIQUE: CT of the cervical spine was performed without contrast according to standard protocol. Reformatted axial, sagittal, and coronal images of the thoracic and lumbar spine were obtained by the technologist from a concurrently performed body CT and sent to the workstation for review. CT dose reduction technique was used, including Automated Exposure Control. COMPARISON: MRI of the cervical, thoracic, and lumbar spine. FINDINGS: Cervical spine: There is gentle cervical kyphosis. Mild anterolisthesis of C2 on C3 and C3 on C4. The bones are diffusely osteopenic. There is sclerosis of the odontoid process correlating with STIR hyperintensity and enhancement on the prior MRI. The vertebral bodies are normal in height without evidence of acute fracture. Other than middle atlantoaxial joint osteoarthritis, the craniocervical junction appears normal. There is mild to advanced degenerative disc disease, worse at C5-C6 and C6-C7. No high-grade central canal stenosis is seen. There are varying degrees of advanced facet osteoarthritis. There are varying degrees of advanced uncovertebral joint osteoarthritis with the same degree of neural foraminal stenosis at these levels. There is atherosclerotic calcification of the carotid bifurcations. Numerous scattered small cervical lymph nodes are nonspecific. Thoracic spine: S-shaped curvature of the thoracic spine. Minimal anterolisthesis of T3 on T4 and T4 on T5. The alignment is otherwise maintained. The bones are mildly osteopenic. Vertebral bodies are normal in height without evidence of acute fracture. Schmorl's nodes are present at multiple levels. Mild multilevel central canal stenosis is seen. There is mild to moderate facet osteoarthritis at multiple levels. There are varying degrees of neural foraminal stenosis at multiple levels. Bilateral pleural effusions and adjacent atelectasis, left more than right. There is a adjacent left lower lobe consolidation. There is atherosclerotic calcification of the thoracic aorta and its branch vessels. Lumbar spine: S-shaped scoliosis of the lumbar spine. Minimal retrolisthesis of L3 on L4 and L5 on S1. Trace anterolisthesis of L4 on L5. Vertebral bodies are normal in height without evidence of acute fracture. There is advanced degenerative disc disease. Multilevel, severe central canal stenosis is seen at multiple levels, worst at L4-L5 and L3-L4, and to a lesser extent at the other levels.. There is advanced facet osteoarthritis at multiple levels. There are varying degrees of neural foraminal stenosis at multiple levels. A Odom catheter is seen in the right psoas muscle. The right psoas muscle appears enlarged as compared to the left. Evaluation of the soft tissues is limited on noncontrast CT. Please refer to the prior MRI for additional details. There is atherosclerotic calcification of the abdominal aorta and its branch vessels. There are degenerative changes of the SI joints. 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 Additional: Pt presented to [facility] hospital on 04/22 complaining ofabdominal pain, hypotensive and tachycardic. Abdominal imaging concerning for perforated viscous. Pt underwent emil-lap + repair of large perforated gastric ulcer with omental Clarence patch and G-tube placement by general surgery. Pt then admitted to ICU for septic shock iso peritonitis. Blood cultures grew MRSA (last positive was 05/27). As part of MRSA work-up,TTE on 05/02 did not show signs of valvular disease. Given patient'svulnerable GI track, Cardiology at [facility] did not feel comfortable performing EMPERATRIZ(given risk of passing larger probe into esophagus). Instead, recommendedtreating presumptively for endocarditis and considering repeat Echo at end of treatment course. Most recent CT A/P on 05/22 concerning for small abscess/fistula adjacent to recent perforation, non-fluid density in peritoneum and psoas, and opacities in R lung. No further interventionper most recent surgery evaluation. Patient also underwent MRI spinepan-scan on 05/26 - showing prevertebral soft tissue swelling concerning for small abscess at base of the dens. No acute findings in T-spine. Increaseddisc signal at L1-L2 through L4-L5, possible discitis. Also concerning for loculated R psoas mm abscess. Pt underwent CT-guided R Psoas drain placement on 05/27. Cultures grew MRSA. Pt finished course of broadspectrum antibiotics (for presumed PNA) then narrowed to IV Vancomycin for MRSA.[facility] did not have ID and Spine Surgery available, so patient transferred [facility] for further care. TECHNIQUE: CT of the cervical spine was performed without contrast according to standard protocol. Reformatted axial, sagittal, and coronal images of the thoracic and lumbar spine were obtained by thetechnologist from a concurrently performed body CT and sent to the workstation for review. CT dose reduction technique was used, including AutomatedExposure Control. COMPARISON: MRI of the cervical, thoracic, and lumbar spine. FINDINGS: Cervical spine: There is gentle cervical kyphosis. Mild anterolisthesis of C2 on C3 andC3 on C4. The bones are diffusely osteopenic. There is sclerosis of the odontoid process correlating with STIR hyperintensity and enhancement on the prior MRI. The vertebral bodies are normal in height withoutevidence of acute fracture. Other than middle atlantoaxial joint osteoarthritis,the craniocervical junction appears normal. There is mild to advanced degenerative disc disease, worse at C5-C6 and C6-C7. No high-gradecentral canal stenosis is seen. There are varying degrees of advanced facet osteoarthritis. There are varying degrees of advanced uncovertebraljoint osteoarthritis with the same degree of neural foraminal stenosis atthese levels. There is atherosclerotic calcification of the carotidbifurcations. Numerous scattered small cervical lymph nodes are nonspecific. Thoracic spine: S-shaped curvature of the thoracic spine. Minimal anterolisthesis of T3on T4 and T4 on T5. The alignment is otherwise maintained. The bones are mildly osteopenic. Vertebral bodies are normal in height withoutevidence of acute fracture. Schmorl's nodes are present at multiple levels. Mild multilevel central canal stenosis is seen. There is mild to moderatefacet osteoarthritis at multiple levels. There are varying degrees of neural foraminal stenosis at multiple levels. Bilateral pleural effusions and adjacent atelectasis, left more than right. There is a adjacent leftlower lobe consolidation. There is atherosclerotic calcification of thethoracic aorta and its branch vessels. Lumbar spine: S-shaped scoliosis of the lumbar spine. Minimal retrolisthesis of L3 onL4 and L5 on S1. Trace anterolisthesis of L4 on L5. Vertebral bodies are normal in height without evidence of acute fracture. There is advanced degenerative disc disease. Multilevel, severe central canal stenosis is seen at multiple levels, worst at L4-L5 and L3-L4, and to a lesserextent at the other levels.. There is advanced facet osteoarthritis at multiple levels. There are varying degrees of neural foraminal stenosis atmultiple levels. A Odom catheter is seen in the right psoas muscle. The rightpsoas muscle appears enlarged as compared to the left. Evaluation of the soft tissues is limited on noncontrast CT. Please refer to the prior MRI for additional details. There is atherosclerotic calcification of theabdominal aorta and its branch vessels. There are degenerative changes of the SI joints. IMPRESSION: 1.No evidence of acute fracture in the cervical, thoracic, or lumbarspine. 2.There is sclerosis of the odontoid process, correlating with STIR hyperintensity and enhancement on the prior MRI. 3.Multilevel degenerative disc and joint disease of the cervical,thoracic, and lumbar spine as detailed above. 4.There is severe spinal canal stenosis at L4-L5 and the L3-L4. 5.Advanced osteoarthritis of the lumbar spine. 6.Odom catheter extending from the right psoas muscle posteriorly. The right psoas muscle appears enlarged as compared to the left. Evaluationof the soft tissues is limited on noncontrast CT. Please refer to the prior MRI for additional details. > Interpreting Provider: Lavon Giron MD on 06/05/2024 7:37 PM us Danilo Don DO CT ORDERABLES Final Result * MRI Lumbar Spine Wwo Contrast (06/05/2024 5:38 PM CDT) Anatomical Region Laterality Modality Spine Magnetic Resonan ce 06/06/2024 9:39 AM CDT Impressions 06/06/2024 1:32 PM CDT IMPRESSION: Cervical spine: 1.Abnormal signal and enhancement in the odontoid process is a nonspecific finding however could be seen in the setting of osteomyelitis, in the appropriate clinical setting. Clinical correlation is recommended. No epidural abscess and cervical spine. 2.Prevertebral soft tissue thickening and enhancement from skull base to the upper thoracic spine, possibly reactive/inflammatory/infectious. No peripherally enhancing prevertebral or retropharyngeal fluid collection is identified to suggest melly abscess formation. Thoracic spine: 1.No high-grade spinal canal stenosis, spinal cord signal abnormality or abnormal enhancement. Lumbar spine: 2.Severe multifocal spinal canal stenosis, worst at L3-4 and L4-5. 3.Right psoas abscess measuring approximately at least 5.4 x 5.6 cm but incompletely imaged. Surgical drainage catheter is in place. 4.Scattered regions of enhancement including the L2-3 and L3-4 intervertebral discs, with subtle adjacent meningeal enhancement and mildly increased fluid and enhancement associated with the right L3-4 and L4-5 facet joints. These findings are nonspecific, however concerning for underlying discitis-osteomyelitis, associated meningitis and septic arthritis in the setting of the right psoas abscess. Clinical correlation is recommended. The report is dictated by Evan Ornelas DO, (founder president and ceo) > Dictated by Evan Ornelas DO (Joint Setter) 06/06/2024 9:39 AM ILavon MD have personally reviewed and interpreted this examination/study. 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 Additional: None. EXAMINATION: Magnetic resonance imaging (MRI) of the cervical, thoracic, and lumbar spine without and with contrast TECHNIQUE: MRI of the cervical, thoracic, and lumbar spine was performed prior to and following the uneventful administration of 10 mL Gadavist intravenous contrast according to standard protocol. COMPARISON: CT of the cervical, thoracic and lumbar spine performed on 06/05/2024. FINDINGS: Cervical spine: There is mild anterolisthesis of C2 on C3, C3 on C4 and C4 on C5 with loss of the normal cervical lordosis and gentle cervical kyphosis. There is mild thickening and enhancement of the prevertebral soft tissues anterior to C1-C2, and also extending to the upper thoracic spine but no peripherally enhancing fluid collection. There is adjacent increased STIR signal intensity within the odontoid process and corresponding T1 signal hypointensity concerning for osteomyelitis. Vertebral bodies are normal in height without evidence of acute fracture. There are moderate degenerative endplate changes at multiple levels, and diffusely decreased bone marrow T1 and T2 signal intensity. Other than middle atlantoaxial joint osteoarthritis, the craniocervical junction appears normal. The spinal cord appears normal. No other regions of abnormal enhancement are identified. There is mild moderate multilevel degenerative disc disease with intervertebral disc height loss most pronounced at C4-5, C5-6 and C6-7 and moderate diffuse posterior disc bulges at these levels resulting in various degrees of moderate spinal canal stenosis. There are varying degrees of mild to moderate multiple facet osteoarthritis. There are varying degrees of mild to moderate multilevel uncovertebral joint osteoarthritis with the same degree of neural foraminal stenosis at these levels. Normal flow voids are identified in the vertebral arteries. No other soft tissue abnormality is identified. Thoracic spine: The alignment is normal. Vertebral bodies are normal in height without evidence of acute fracture. Diffuse mildly decreased bone marrow T1 and T2 signal intensity may be related to anemia. The thoracic spinal cord appears normal. No abnormal enhancement is identified. There is mild to moderate multilevel degenerative disc disease including Schmorl's nodes at multiple levels. There are scattered mild to moderate intervertebral disc bulges including right-sided subarticular disc protrusion at T10-11 resulting in [id number] spinal canal stenosis. There are varying degrees of mild to moderate multiple facet osteoarthritis. with the same degree of neural foraminal stenosis at these levels. Small left greater than right pleural effusions. Lumbar spine: There is mild retrolisthesis of L3 on L4 and L5 on S1. Vertebral bodies are normal in height without evidence of acute fracture. There are moderate degenerative endplate changes at multiple levels and diffusely decreased T1 and T2 bone marrow signal intensity. The conus medullaris terminates at the level of L1 and the distal spinal cord signal intensity is normal. There is enhancement of the intervertebral disc at L2-3, and also L3-4 with some degree of adjacent vertebral body endplate enhancement noticeable at L3-4. There is mildly increased fluid within the right L3-4 and L4-5 facet with associated meningeal enhancement and adjacent soft tissue enhancement which could represent septic arthritis. There is moderate to severe multilevel degenerative disc disease related to diffuse posterior disc bulge and ligamentum flavum hypertrophy resulting in severe multilevel spinal canal stenosis at L3-4 and L4-5. Moderate multilevel spinal canal stenosis is present at multiple levels. There are varying degrees of moderate to severe multiple facet osteoarthritis. with the same degree of neural foraminal stenosis at these levels. Fluid collection within the right psoas muscle with peripheral enhancement and a drainage catheter tubing in place, appears to measure approximately at least 5.4 x 5.6 cm, however is incompletely visualized on this exam. There is enhancement of the paraspinal musculature of the lumbar spine, but no discrete fluid collection is identified. 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 Additional: None. EXAMINATION: Magnetic resonance imaging (MRI) of the cervical, thoracic, and lumbar spine without and with contrast TECHNIQUE: MRI of the cervical, thoracic, and lumbar spine was performed prior to and following the uneventful administration of 10 mL Gadavist intravenous contrast according to standard protocol. COMPARISON: CT of the cervical, thoracic and lumbar spine performed on 06/05/2024. FINDINGS: Cervical spine: There is mild anterolisthesis of C2 on C3, C3 on C4 and C4 on C5 withloss of the normal cervical lordosis and gentle cervical kyphosis. There ismild thickening and enhancement of the prevertebral soft tissues anterior to C1-C2, and also extending to the upper thoracic spine but noperipherally enhancing fluid collection. There is adjacent increased STIR signal intensity within the odontoid process and corresponding T1 signal hypointensity concerning for osteomyelitis. Vertebral bodies are normal in height without evidence of acutefracture. There are moderate degenerative endplate changes at multiple levels, and diffusely decreased bone marrow T1 and T2 signal intensity. Other than middle atlantoaxial joint osteoarthritis, the craniocervical junction appears normal. The spinal cord appears normal. No other regions of abnormal enhancement are identified. There is mild moderate multilevel degenerative disc disease with intervertebral disc height loss most pronounced at C4-5, C5-6 and C6-7and moderate diffuse posterior disc bulges at these levels resulting invarious degrees of moderate spinal canal stenosis. There are varying degrees of mild to moderate multiple facet osteoarthritis. There are varyingdegrees of mild to moderate multilevel uncovertebral joint osteoarthritis withthe same degree of neural foraminal stenosis at these levels. Normal flow voids are identified in the vertebral arteries. No othersoft tissue abnormality is identified. Thoracic spine: The alignment is normal. Vertebral bodies are normal in height without evidence of acute fracture. Diffuse mildly decreased bone marrow T1 andT2 signal intensity may be related to anemia. The thoracic spinal cordappears normal. No abnormal enhancement is identified. There is mild to moderate multilevel degenerative disc disease including Schmorl's nodes at multiple levels. There are scattered mild to moderate intervertebral disc bulges including right-sided subarticular disc protrusion at T10-11 resulting in [id number] spinal canalstenosis. There are varying degrees of mild to moderate multiple facet osteoarthritis. with the same degree of neural foraminal stenosis atthese levels. Small left greater than right pleural effusions. Lumbar spine: There is mild retrolisthesis of L3 on L4 and L5 on S1. Vertebral bodiesare normal in height without evidence of acute fracture. There are moderate degenerative endplate changes at multiple levels and diffusely decreasedT1 and T2 bone marrow signal intensity. The conus medullaris terminates atthe level of L1 and the distal spinal cord signal intensity is normal. There is enhancement of the intervertebral disc at L2-3, and also L3-4with some degree of adjacent vertebral body endplate enhancement noticeableat L3-4. There is mildly increased fluid within the right L3-4 and L4-5facet with associated meningeal enhancement and adjacent soft tissueenhancement which could represent septic arthritis. There is moderate to severe multilevel degenerative disc disease relatedto diffuse posterior disc bulge and ligamentum flavum hypertrophy resultingin severe multilevel spinal canal stenosis at L3-4 and L4-5. Moderate multilevel spinal canal stenosis is present at multiple levels. Thereare varying degrees of moderate to severe multiple facet osteoarthritis.with the same degree of neural foraminal stenosis at these levels. Fluid collection within the right psoas muscle with peripheralenhancement and a drainage catheter tubing in place, appears to measureapproximately at least 5.4 x 5.6 cm, however is incompletely visualized on this exam. There is enhancement of the paraspinal musculature of the lumbar spine,but no discrete fluid collection is identified. IMPRESSION: Cervical spine: 1.Abnormal signal and enhancement in the odontoid process is anonspecific finding however could be seen in the setting of osteomyelitis, in the appropriate clinical setting. Clinical correlation is recommended. No epidural abscess and cervical spine. 2.Prevertebral soft tissue thickening and enhancement from skull base to the upper thoracic spine, possibly reactive/inflammatory/infectious. No peripherally enhancing prevertebral or retropharyngeal fluid collectionis identified to suggest melly abscess formation. Thoracic spine: 1.No high-grade spinal canal stenosis, spinal cord signal abnormality or abnormal enhancement. Lumbar spine: 2.Severe multifocal spinal canal stenosis, worst at L3-4 and L4-5. 3.Right psoas abscess measuring approximately at least 5.4 x 5.6 cm but incompletely imaged. Surgical drainage catheter is in place. 4.Scattered regions of enhancement including the L2-3 and L3-4 intervertebral discs, with subtle adjacent meningeal enhancement andmildly increased fluid and enhancement associated with the right L3-4 and L4-5 facet joints. These findings are nonspecific, however concerning for underlying discitis-osteomyelitis, associated meningitis and septic arthritis in the setting of the right psoas abscess. Clinicalcorrelation is recommended. The report is dictated by Evan Ornelas DO, (founder president and ceo) > Dictated by Evan Ornelas DO (Joint Setter) 06/06/2024 9:39 AM ILavon MD have personally reviewed and interpretedthis examination/study. > Interpreting Provider: Lavon Giron MD on 06/06/2024 1:32 PM Danilo Don DO MR ORDERABLES Final Result * MRI Thoracic Spine Wwo Cont (06/05/2024 5:37 PM CDT) Anatomical Region Laterality Modality Spine Magnetic Resonan ce 06/06/2024 9:39 AM CDT Impressions 06/06/2024 1:32 PM CDT IMPRESSION: Cervical spine: 1.Abnormal signal and enhancement in the odontoid process is a nonspecific finding however could be seen in the setting of osteomyelitis, in the appropriate clinical setting. Clinical correlation is recommended. No epidural abscess and cervical spine. 2.Prevertebral soft tissue thickening and enhancement from skull base to the upper thoracic spine, possibly reactive/inflammatory/infectious. No peripherally enhancing prevertebral or retropharyngeal fluid collection is identified to suggest melly abscess formation. Thoracic spine: 1.No high-grade spinal canal stenosis, spinal cord signal abnormality or abnormal enhancement. Lumbar spine: 2.Severe multifocal spinal canal stenosis, worst at L3-4 and L4-5. 3.Right psoas abscess measuring approximately at least 5.4 x 5.6 cm but incompletely imaged. Surgical drainage catheter is in place. 4.Scattered regions of enhancement including the L2-3 and L3-4 intervertebral discs, with subtle adjacent meningeal enhancement and mildly increased fluid and enhancement associated with the right L3-4 and L4-5 facet joints. These findings are nonspecific, however concerning for underlying discitis-osteomyelitis, associated meningitis and septic arthritis in the setting of the right psoas abscess. Clinical correlation is recommended. The report is dictated by Evan Ornelas DO, (founder president and ceo) > Dictated by Evan Ornelas DO (Joint Setter) 06/06/2024 9:39 AM Lavon Pérez MD have personally reviewed and interpreted this examination/study. 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 Additional: None. EXAMINATION: Magnetic resonance imaging (MRI) of the cervical, thoracic, and lumbar spine without and with contrast TECHNIQUE: MRI of the cervical, thoracic, and lumbar spine was performed prior to and following the uneventful administration of 10 mL Gadavist intravenous contrast according to standard protocol. COMPARISON: CT of the cervical, thoracic and lumbar spine performed on 06/05/2024. FINDINGS: Cervical spine: There is mild anterolisthesis of C2 on C3, C3 on C4 and C4 on C5 with loss of the normal cervical lordosis and gentle cervical kyphosis. There is mild thickening and enhancement of the prevertebral soft tissues anterior to C1-C2, and also extending to the upper thoracic spine but no peripherally enhancing fluid collection. There is adjacent increased STIR signal intensity within the odontoid process and corresponding T1 signal hypointensity concerning for osteomyelitis. Vertebral bodies are normal in height without evidence of acute fracture. There are moderate degenerative endplate changes at multiple levels, and diffusely decreased bone marrow T1 and T2 signal intensity. Other than middle atlantoaxial joint osteoarthritis, the craniocervical junction appears normal. The spinal cord appears normal. No other regions of abnormal enhancement are identified. There is mild moderate multilevel degenerative disc disease with intervertebral disc height loss most pronounced at C4-5, C5-6 and C6-7 and moderate diffuse posterior disc bulges at these levels resulting in various degrees of moderate spinal canal stenosis. There are varying degrees of mild to moderate multiple facet osteoarthritis. There are varying degrees of mild to moderate multilevel uncovertebral joint osteoarthritis with the same degree of neural foraminal stenosis at these levels. Normal flow voids are identified in the vertebral arteries. No other soft tissue abnormality is identified. Thoracic spine: The alignment is normal. Vertebral bodies are normal in height without evidence of acute fracture. Diffuse mildly decreased bone marrow T1 and T2 signal intensity may be related to anemia. The thoracic spinal cord appears normal. No abnormal enhancement is identified. There is mild to moderate multilevel degenerative disc disease including Schmorl's nodes at multiple levels. There are scattered mild to moderate intervertebral disc bulges including right-sided subarticular disc protrusion at T10-11 resulting in [id number]-ryumbbky spinal canal stenosis. There are varying degrees of mild to moderate multiple facet osteoarthritis. with the same degree of neural foraminal stenosis at these levels. Small left greater than right pleural effusions. Lumbar spine: There is mild retrolisthesis of L3 on L4 and L5 on S1. Vertebral bodies are normal in height without evidence of acute fracture. There are moderate degenerative endplate changes at multiple levels and diffusely decreased T1 and T2 bone marrow signal intensity. The conus medullaris terminates at the level of L1 and the distal spinal cord signal intensity is normal. There is enhancement of the intervertebral disc at L2-3, and also L3-4 with some degree of adjacent vertebral body endplate enhancement noticeable at L3-4. There is mildly increased fluid within the right L3-4 and L4-5 facet with associated meningeal enhancement and adjacent soft tissue enhancement which could represent septic arthritis. There is moderate to severe multilevel degenerative disc disease related to diffuse posterior disc bulge and ligamentum flavum hypertrophy resulting in severe multilevel spinal canal stenosis at L3-4 and L4-5. Moderate multilevel spinal canal stenosis is present at multiple levels. There are varying degrees of moderate to severe multiple facet osteoarthritis. with the same degree of neural foraminal stenosis at these levels. Fluid collection within the right psoas muscle with peripheral enhancement and a drainage catheter tubing in place, appears to measure approximately at least 5.4 x 5.6 cm, however is incompletely visualized on this exam. There is enhancement of the paraspinal musculature of the lumbar spine, but no discrete fluid collection is identified. 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 Additional: None. EXAMINATION: Magnetic resonance imaging (MRI) of the cervical, thoracic, and lumbar spine without and with contrast TECHNIQUE: MRI of the cervical, thoracic, and lumbar spine was performed prior to and following the uneventful administration of 10 mL Gadavist intravenous contrast according to standard protocol. COMPARISON: CT of the cervical, thoracic and lumbar spine performed on 06/05/2024. FINDINGS: Cervical spine: There is mild anterolisthesis of C2 on C3, C3 on C4 and C4 on C5 withloss of the normal cervical lordosis and gentle cervical kyphosis. There ismild thickening and enhancement of the prevertebral soft tissues anterior to C1-C2, and also extending to the upper thoracic spine but noperipherally enhancing fluid collection. There is adjacent increased STIR signal intensity within the odontoid process and corresponding T1 signal hypointensity concerning for osteomyelitis. Vertebral bodies are normal in height without evidence of acutefracture. There are moderate degenerative endplate changes at multiple levels, and diffusely decreased bone marrow T1 and T2 signal intensity. Other than middle atlantoaxial joint osteoarthritis, the craniocervical junction appears normal. The spinal cord appears normal. No other regions of abnormal enhancement are identified. There is mild moderate multilevel degenerative disc disease with intervertebral disc height loss most pronounced at C4-5, C5-6 and C6-7and moderate diffuse posterior disc bulges at these levels resulting invarious degrees of moderate spinal canal stenosis. There are varying degrees of mild to moderate multiple facet osteoarthritis. There are varyingdegrees of mild to moderate multilevel uncovertebral joint osteoarthritis withthe same degree of neural foraminal stenosis at these levels. Normal flow voids are identified in the vertebral arteries. No othersoft tissue abnormality is identified. Thoracic spine: The alignment is normal. Vertebral bodies are normal in height without evidence of acute fracture. Diffuse mildly decreased bone marrow T1 andT2 signal intensity may be related to anemia. The thoracic spinal cordappears normal. No abnormal enhancement is identified. There is mild to moderate multilevel degenerative disc disease including Schmorl's nodes at multiple levels. There are scattered mild to moderate intervertebral disc bulges including right-sided subarticular disc protrusion at T10-11 resulting in [id number] spinal canalstenosis. There are varying degrees of mild to moderate multiple facet osteoarthritis. with the same degree of neural foraminal stenosis atthese levels. Small left greater than right pleural effusions. Lumbar spine: There is mild retrolisthesis of L3 on L4 and L5 on S1. Vertebral bodiesare normal in height without evidence of acute fracture. There are moderate degenerative endplate changes at multiple levels and diffusely decreasedT1 and T2 bone marrow signal intensity. The conus medullaris terminates atthe level of L1 and the distal spinal cord signal intensity is normal. There is enhancement of the intervertebral disc at L2-3, and also L3-4with some degree of adjacent vertebral body endplate enhancement noticeableat L3-4. There is mildly increased fluid within the right L3-4 and L4-5facet with associated meningeal enhancement and adjacent soft tissueenhancement which could represent septic arthritis. There is moderate to severe multilevel degenerative disc disease relatedto diffuse posterior disc bulge and ligamentum flavum hypertrophy resultingin severe multilevel spinal canal stenosis at L3-4 and L4-5. Moderate multilevel spinal canal stenosis is present at multiple levels. Thereare varying degrees of moderate to severe multiple facet osteoarthritis.with the same degree of neural foraminal stenosis at these levels. Fluid collection within the right psoas muscle with peripheralenhancement and a drainage catheter tubing in place, appears to measureapproximately at least 5.4 x 5.6 cm, however is incompletely visualized on this exam. There is enhancement of the paraspinal musculature of the lumbar spine,but no discrete fluid collection is identified. IMPRESSION: Cervical spine: 1.Abnormal signal and enhancement in the odontoid process is anonspecific finding however could be seen in the setting of osteomyelitis, in the appropriate clinical setting. Clinical correlation is recommended. No epidural abscess and cervical spine. 2.Prevertebral soft tissue thickening and enhancement from skull base to the upper thoracic spine, possibly reactive/inflammatory/infectious. No peripherally enhancing prevertebral or retropharyngeal fluid collectionis identified to suggest melly abscess formation. Thoracic spine: 1.No high-grade spinal canal stenosis, spinal cord signal abnormality or abnormal enhancement. Lumbar spine: 2.Severe multifocal spinal canal stenosis, worst at L3-4 and L4-5. 3.Right psoas abscess measuring approximately at least 5.4 x 5.6 cm but incompletely imaged. Surgical drainage catheter is in place. 4.Scattered regions of enhancement including the L2-3 and L3-4 intervertebral discs, with subtle adjacent meningeal enhancement andmildly increased fluid and enhancement associated with the right L3-4 and L4-5 facet joints. These findings are nonspecific, however concerning for underlying discitis-osteomyelitis, associated meningitis and septic arthritis in the setting of the right psoas abscess. Clinicalcorrelation is recommended. The report is dictated by Evan Ornelas DO, (founder president and ceo) > Dictated by Evan Ornelas DO (Joint Setter) 06/06/2024 9:39 AM ILavon MD have personally reviewed and interpretedthis examination/study. > Interpreting Provider: Lavon Giron MD on 06/06/2024 1:32 PM Danilo Don DO MR ORDERABLES Final Result * MRI Cervical Spine Wwo Cont (06/05/2024 5:16 PM CDT) Anatomical Region Laterality Modality Spine Magnetic Resonan ce 06/06/2024 9:39 AM CDT Impressions 06/06/2024 1:32 PM CDT IMPRESSION: Cervical spine: 1.Abnormal signal and enhancement in the odontoid process is a nonspecific finding however could be seen in the setting of osteomyelitis, in the appropriate clinical setting. Clinical correlation is recommended. No epidural abscess and cervical spine. 2.Prevertebral soft tissue thickening and enhancement from skull base to the upper thoracic spine, possibly reactive/inflammatory/infectious. No peripherally enhancing prevertebral or retropharyngeal fluid collection is identified to suggest melly abscess formation. Thoracic spine: 1.No high-grade spinal canal stenosis, spinal cord signal abnormality or abnormal enhancement. Lumbar spine: 2.Severe multifocal spinal canal stenosis, worst at L3-4 and L4-5. 3.Right psoas abscess measuring approximately at least 5.4 x 5.6 cm but incompletely imaged. Surgical drainage catheter is in place. 4.Scattered regions of enhancement including the L2-3 and L3-4 intervertebral discs, with subtle adjacent meningeal enhancement and mildly increased fluid and enhancement associated with the right L3-4 and L4-5 facet joints. These findings are nonspecific, however concerning for underlying discitis-osteomyelitis, associated meningitis and septic arthritis in the setting of the right psoas abscess. Clinical correlation is recommended. The report is dictated by Evan Ornelas DO, (founder president and ceo) > Dictated by Evan Ornelas DO (Joint Setter) 06/06/2024 9:39 AM ILavon MD have personally reviewed and interpreted this examination/study. 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 Additional: None. EXAMINATION: Magnetic resonance imaging (MRI) of the cervical, thoracic, and lumbar spine without and with contrast TECHNIQUE: MRI of the cervical, thoracic, and lumbar spine was performed prior to and following the uneventful administration of 10 mL Gadavist intravenous contrast according to standard protocol. COMPARISON: CT of the cervical, thoracic and lumbar spine performed on 06/05/2024. FINDINGS: Cervical spine: There is mild anterolisthesis of C2 on C3, C3 on C4 and C4 on C5 with loss of the normal cervical lordosis and gentle cervical kyphosis. There is mild thickening and enhancement of the prevertebral soft tissues anterior to C1-C2, and also extending to the upper thoracic spine but no peripherally enhancing fluid collection. There is adjacent increased STIR signal intensity within the odontoid process and corresponding T1 signal hypointensity concerning for osteomyelitis. Vertebral bodies are normal in height without evidence of acute fracture. There are moderate degenerative endplate changes at multiple levels, and diffusely decreased bone marrow T1 and T2 signal intensity. Other than middle atlantoaxial joint osteoarthritis, the craniocervical junction appears normal. The spinal cord appears normal. No other regions of abnormal enhancement are identified. There is mild moderate multilevel degenerative disc disease with intervertebral disc height loss most pronounced at C4-5, C5-6 and C6-7 and moderate diffuse posterior disc bulges at these levels resulting in various degrees of moderate spinal canal stenosis. There are varying degrees of mild to moderate multiple facet osteoarthritis. There are varying degrees of mild to moderate multilevel uncovertebral joint osteoarthritis with the same degree of neural foraminal stenosis at these levels. Normal flow voids are identified in the vertebral arteries. No other soft tissue abnormality is identified. Thoracic spine: The alignment is normal. Vertebral bodies are normal in height without evidence of acute fracture. Diffuse mildly decreased bone marrow T1 and T2 signal intensity may be related to anemia. The thoracic spinal cord appears normal. No abnormal enhancement is identified. There is mild to moderate multilevel degenerative disc disease including Schmorl's nodes at multiple levels. There are scattered mild to moderate intervertebral disc bulges including right-sided subarticular disc protrusion at T10-11 resulting in ecgu-so-lobfdfxj spinal canal stenosis. There are varying degrees of mild to moderate multiple facet osteoarthritis. with the same degree of neural foraminal stenosis at these levels. Small left greater than right pleural effusions. Lumbar spine: There is mild retrolisthesis of L3 on L4 and L5 on S1. Vertebral bodies are normal in height without evidence of acute fracture. There are moderate degenerative endplate changes at multiple levels and diffusely decreased T1 and T2 bone marrow signal intensity. The conus medullaris terminates at the level of L1 and the distal spinal cord signal intensity is normal. There is enhancement of the intervertebral disc at L2-3, and also L3-4 with some degree of adjacent vertebral body endplate enhancement noticeable at L3-4. There is mildly increased fluid within the right L3-4 and L4-5 facet with associated meningeal enhancement and adjacent soft tissue enhancement which could represent septic arthritis. There is moderate to severe multilevel degenerative disc disease related to diffuse posterior disc bulge and ligamentum flavum hypertrophy resulting in severe multilevel spinal canal stenosis at L3-4 and L4-5. Moderate multilevel spinal canal stenosis is present at multiple levels. There are varying degrees of moderate to severe multiple facet osteoarthritis. with the same degree of neural foraminal stenosis at these levels. Fluid collection within the right psoas muscle with peripheral enhancement and a drainage catheter tubing in place, appears to measure approximately at least 5.4 x 5.6 cm, however is incompletely visualized on this exam. There is enhancement of the paraspinal musculature of the lumbar spine, but no discrete fluid collection is identified. 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 Additional: None. EXAMINATION: Magnetic resonance imaging (MRI) of the cervical, thoracic, and lumbar spine without and with contrast TECHNIQUE: MRI of the cervical, thoracic, and lumbar spine was performed prior to and following the uneventful administration of 10 mL Gadavist intravenous contrast according to standard protocol. COMPARISON: CT of the cervical, thoracic and lumbar spine performed on 06/05/2024. FINDINGS: Cervical spine: There is mild anterolisthesis of C2 on C3, C3 on C4 and C4 on C5 withloss of the normal cervical lordosis and gentle cervical kyphosis. There ismild thickening and enhancement of the prevertebral soft tissues anterior to C1-C2, and also extending to the upper thoracic spine but noperipherally enhancing fluid collection. There is adjacent increased STIR signal intensity within the odontoid process and corresponding T1 signal hypointensity concerning for osteomyelitis. Vertebral bodies are normal in height without evidence of acutefracture. There are moderate degenerative endplate changes at multiple levels, and diffusely decreased bone marrow T1 and T2 signal intensity. Other than middle atlantoaxial joint osteoarthritis, the craniocervical junction appears normal. The spinal cord appears normal. No other regions of abnormal enhancement are identified. There is mild moderate multilevel degenerative disc disease with intervertebral disc height loss most pronounced at C4-5, C5-6 and C6-7and moderate diffuse posterior disc bulges at these levels resulting invarious degrees of moderate spinal canal stenosis. There are varying degrees of mild to moderate multiple facet osteoarthritis. There are varyingdegrees of mild to moderate multilevel uncovertebral joint osteoarthritis withthe same degree of neural foraminal stenosis at these levels. Normal flow voids are identified in the vertebral arteries. No othersoft tissue abnormality is identified. Thoracic spine: The alignment is normal. Vertebral bodies are normal in height without evidence of acute fracture. Diffuse mildly decreased bone marrow T1 andT2 signal intensity may be related to anemia. The thoracic spinal cordappears normal. No abnormal enhancement is identified. There is mild to moderate multilevel degenerative disc disease including Schmorl's nodes at multiple levels. There are scattered mild to moderate intervertebral disc bulges including right-sided subarticular disc protrusion at T10-11 resulting in wntp-oo-pnzirpcn spinal canalstenosis. There are varying degrees of mild to moderate multiple facet osteoarthritis. with the same degree of neural foraminal stenosis atthese levels. Small left greater than right pleural effusions. Lumbar spine: There is mild retrolisthesis of L3 on L4 and L5 on S1. Vertebral bodiesare normal in height without evidence of acute fracture. There are moderate degenerative endplate changes at multiple levels and diffusely decreasedT1 and T2 bone marrow signal intensity. The conus medullaris terminates atthe level of L1 and the distal spinal cord signal intensity is normal. There is enhancement of the intervertebral disc at L2-3, and also L3-4with some degree of adjacent vertebral body endplate enhancement noticeableat L3-4. There is mildly increased fluid within the right L3-4 and L4-5facet with associated meningeal enhancement and adjacent soft tissueenhancement which could represent septic arthritis. There is moderate to severe multilevel degenerative disc disease relatedto diffuse posterior disc bulge and ligamentum flavum hypertrophy resultingin severe multilevel spinal canal stenosis at L3-4 and L4-5. Moderate multilevel spinal canal stenosis is present at multiple levels. Thereare varying degrees of moderate to severe multiple facet osteoarthritis.with the same degree of neural foraminal stenosis at these levels. Fluid collection within the right psoas muscle with peripheralenhancement and a drainage catheter tubing in place, appears to measureapproximately at least 5.4 x 5.6 cm, however is incompletely visualized on this exam. There is enhancement of the paraspinal musculature of the lumbar spine,but no discrete fluid collection is identified. IMPRESSION: Cervical spine: 1.Abnormal signal and enhancement in the odontoid process is anonspecific finding however could be seen in the setting of osteomyelitis, in the appropriate clinical setting. Clinical correlation is recommended. No epidural abscess and cervical spine. 2.Prevertebral soft tissue thickening and enhancement from skull base to the upper thoracic spine, possibly reactive/inflammatory/infectious. No peripherally enhancing prevertebral or retropharyngeal fluid collectionis identified to suggest melly abscess formation. Thoracic spine: 1.No high-grade spinal canal stenosis, spinal cord signal abnormality or abnormal enhancement. Lumbar spine: 2.Severe multifocal spinal canal stenosis, worst at L3-4 and L4-5. 3.Right psoas abscess measuring approximately at least 5.4 x 5.6 cm but incompletely imaged. Surgical drainage catheter is in place. 4.Scattered regions of enhancement including the L2-3 and L3-4 intervertebral discs, with subtle adjacent meningeal enhancement andmildly increased fluid and enhancement associated with the right L3-4 and L4-5 facet joints. These findings are nonspecific, however concerning for underlying discitis-osteomyelitis, associated meningitis and septic arthritis in the setting of the right psoas abscess. Clinicalcorrelation is recommended. The report is dictated by Evan Ornelas DO, (founder president and ceo) > Dictated by Evan Ornelas DO (Joint Setter) 06/06/2024 9:39 AM ILavon MD have personally reviewed and interpretedthis examination/study. > Interpreting Provider: Lavon Giron MD on 06/06/2024 1:32 PM us Danilo Don DO MR ORDERABLES Final Result * PT-INR [facility] (06/05/2024 9:14 AM CDT) PT 14.8 12.1 - 14.8 Seconds 06/05/2024 9:38 AM CDT [facility] INR 1.1 See Comment 06/05/2024 9:38 AM T [facility] Comment:The suggested therap eutic range for standard coumadin (warfarin) therapy is an INR of 2.0-3.0. For high-risk patients (Mechanical Mitral Valve Prosthesis, etc.), the suggested prophylactic therapeutic range is an INR of 2.5-3.5. Blood BLOOD SPECIMEN / Unknown Lab Venipuncture / Unknown 06/05/2024 9:14 AM CDT 06/05/2024 9:24 AM CDT us Asmita Pearson MD LAB - COAGULATION ORDERABLES Fi nal Result [facility] [address] [place] [address], [place] [phone] * (ABNORMAL) C-REACTIVE PROTEIN (06/05/2024 9:14 AM CDT) C-Reactive Protein 3.0(H) <=0.5 mg/dL 06/05/2024 9:49 AM CDT [facility] Blood BLOOD SPECIMEN / Unknown Lab Venipuncture / Unknown 06/05/2024 9:14 AM CDT 06/05/2024 9:24 AM CDT Asmita Pearson MD LAB - CHEMISTRY ORDERABLES Collette l Result [facility] [address] [place] [id number], [facility] [phone] * CULTURE BLOOD (06/05/2024 9:14 AM CDT) Only the most recent of2 resultswithin the time period is included. Pathologist [facility] [place] Culture No growth day 5 THE[place]A 06/10/2024 1:00 PM CDT [facility] Blood PERIPHERAL BLOOD / Unknown Lab Venipuncture / Unknown 06/05/2024 9:14 AM CDT 06/05/2024 9:23 AM CDT Asmita Pearson MD LAB - MICROBIOLOGY ORDERABLES F inal Result [facility] [address] [place] [address], [facility] [phone] * (ABNORMAL) ERYTHROCYTE SEDIMENTATION RATE (06/05/2024 9:13 AM CDT) Erythrocyte Sedimentation Rate Westergren 125(H) 0 - 20 MM/HR 06/05/2024 9:58 AM CDT [facility] Blood BLOOD SPECIMEN / Unknown Lab Venipuncture / Unknown 06/05/2024 9:13 AM CDT 06/05/2024 9:24 AM CDT Asmita Pearson MD LAB - HEMATOLOGY ORDERABLES Fin al Result [facility] [address] [place] [address], [facility] [phone] * EKG 12-LEAD (06/04/2024 6:53 PM CDT) Ventricular Rate 70 BPM [facility] Atrial Rate 70 BPM [facility] P-R Interval 158 ms [facility] QRS Duration ms 90 ms [facility] Q-T Interval ms 418 ms H MUSE QTC Calculation (Bezet) 451 ms [facility] Calculated P [place] 31 degrees [facility] Calculated R [place] -33 degrees [facility] Calculated T [place] 33 degrees [facility] Interpretation EKG NORMAL SINUS RHYTHM LEFT AXIS DEVIATION ABNORMAL ECG NO PREVIOUS ECGS AVAILABLE Confirmed by ELIEL MAN, BJORN ([id number]) on 06/07/2024 9:47:31 AM [facility] MUSE 06/04/2024 6:53 PM CDT 06/07/2024 9:47 AM CDT us Asmita Pearson MD ECG ORDERABLES Edited Result - Final Performing Organization Address City/[facility] Co de Phone Number [facility] ELIN from Last 3 Months Additional Health Concerns Infection Onset Date Last Indicated MRSA 06/07/2024 06/07/2024 Insurance [employer] MEDICARE ADV SELF PAY NO INSURANCE Member Subscriber Plan / Payer (Ef fective for All Dates) Name:Evan Menon Member ID:Not on file Relation to Subscriber:Not on file Name:EVAN MENON Subscriber ID:Not on file (Home) Address: [address] [place] [id number] Payer ID:Not on file Group ID:Not on file Type:Self Pay Address: [place], [place] Advance Directives * Full Code (Latest Code Status on File) Date Activated Date Inactivated Comments 06/04/2024 6:21 PM 06/14/2024 2:[address] Supervisor Of 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
--- OUTSIDE RECORDS SUMMARY | 2024-06-30 20:04 | XMS_ITS | Continuity of Care Document ---
Author Organization [facility] Main Address [address] [address] Insurance Providers Payer Plan Claims Address Claims Phone Policy Number Group Number Relation Employer Guarantor Name Guarantor Guarantor Address Guarantor Phone [facility] [id number] Self Ludin Menon 1945 [address] [place] [address] [facility] [id number] Self Ludin Menon [address] [place] [address] [facility] [address], [place] [address] tel:[phone] Self Ludin Menon [address] [place] [address] Problems Condition ICD9 code ICD10 code SNOMED code Start Date End Date S tatus Anemia, unspecified D64.9 Impaired fasting glucose R73.01 Results No Results Allergies, adverse reactions, alerts No known allergies and adverse reactions Medications No administered medications reported Vital Signs No vital signs reported Social History No smoking Hx information available
== END 2024-06-30 23:04 ==
PROVIDERS: Emergency Medicine; Emergency Provider Student in an Organized Health Care Education/Training Program; PCP Family Medicine Adolescent Medicine
DX: I12.9 Hypertensive chronic kidney disease with stage 1 through stage 4 chronic kidney disease, or unspecified chronic kidney disease (principal); N18.9 Chronic kidney disease, unspecified; R09.89 Other specified symptoms and signs involving the circulatory and respiratory systems; G06.1 Intraspinal abscess and granuloma; B95.62 Methicillin resistant Staphylococcus aureus infection as the cause of diseases classified elsewhere; G83.9 Paralytic syndrome, unspecified; I73.9 Peripheral vascular disease, unspecified; E78.00 Pure hypercholesterolemia, unspecified; M19.90 Unspecified osteoarthritis, unspecified site; Z93.1 Gastrostomy status; Z96.0 Presence of urogenital implants; Z95.828 Presence of other vascular implants and grafts; Z86.0100 Personal history of colon polyps, unspecified; Z77.22 Contact with and (suspected) exposure to environmental tobacco smoke (acute) (chronic); Z98.2 Presence of cerebrospinal fluid drainage device; Z79.899 Other long term (current) drug therapy; Z79.82 Long term (current) use of aspirin
CPT/HCPCS: 36415; 71045; 80053; 85025; 93005; 99283

== ENCOUNTER 2024-08-03 07:37 | Emergency (ER) | payer MEDICARE, SELFPAY ==
--- NOTE | ~2024-08-03 | CT_ITS ---
EXAM: CT abdomen pelvis w con - 08/03/2024 8:46 CDT History: 78 years old Male with vomiting, g-tube position TECHNIQUE: Multidetector CT of the abdomen and pelvis with intravenous contrast. Coronal and sagitta l reformats were also provided for review. Automatic exposure control was used for this study. CONTRAST: 100 cc of Optiray 350 was used for this study. COMPARISON: 05/22/2024. FINDINGS: VISUALIZED CHEST: Bibasilar linear atelectasis, left greater than right. ABDOMEN and PELVIS: LIVER: Within normal limits. GALLBLADDER: No calcified gallstones. BILE DUCTS: No dilatation. SPLEEN: Within normal limits. PANCREAS: Within normal limits. ADRENAL GLANDS: Within normal limits. KIDNEYS and URETERS: No hydronephrosis or hydroureter. No nephroureterolithiasis. Bilateral simple cy sts are unchanged. URINARY BLADDER: Bowman catheter is noted with small amount of intraluminal air. No abnormal thickenin g of the urinary bladder wall. STOMACH and BOWEL: Limited evaluation of the bowel due to lack of oral contrast. No bowel obstruction . Appendix is not visualized. No inflammatory stranding is seen in the right lower quadrant. Scattere d colonic diverticula without radiculitis. The balloon of the gastrostomy tube is in the third portion of the abdomen causing upstream obstructi on and likely the cause of patient's vomiting. REPRODUCTIVE ORGANS: Within normal limits. MESENTERY/PERITONEAL CAVITY: No free fluid or pneumoperitoneum. LYMPH NODES: No abdominal or pelvic lymphadenopathy. ABDOMINAL WALL: Bilateral fat-containing inguinal hernias. VASCULATURE: Within normal limits. MUSCULOSKELETAL: Multilevel degenerative changes of the spine. There is a drainage catheter in the ri ght psoas muscle without any residual fluid collection. IMPRESSION: 1. The balloon of the gastrostomy tube is in the third portion of the abdomen causing upstream obstr uction and likely the cause of patient's vomiting. Deflating the balloon and repositioning it over a wire in the stomach is recommended. 2. Drainage catheter in the right psoas muscle without any residual fluid collection. Reviewed, dictated and finalized at location A. IMPRESSION: 1. The balloon of the gastrostomy tube is in the third portion of the abdomen causing upstream obstruction and likely the cause of patient's vomiting. Deflat ing the balloon and repositioning it over a wire in the stomach is recommended. 2. Drainage catheter in the right psoas muscle without any residual fluid willa ection.
[2024-08-03 07:39] VITALS: BP 141/77; PULSE 74; RESP 16; TEMP 36.6; O2SAT 100
[2024-08-03 07:47] VITALS: BP 132/69; PULSE 73; RESP 18; TEMP 36.6; O2SAT 97
--- NOTE | 2024-08-03 07:57 | PC.NURSE ---
voided 100mls and repored he could not void anymore, post void residual >1626
[2024-08-03 08:16] VITALS: BP 117/66; PULSE 70; RESP 16; TEMP 36.6; O2SAT 98
--- NOTE | 2024-08-03 08:18 | PC.NURSE ---
denies nausea had zofran 4mg by EMS
[2024-08-03 08:20] LABS: Basophils Absolute Auto 0.1 K/mm3 (0.0-0.1); Basophils Percent Auto 0.6 % (0.2-1.2); Eosinophils Absolute Auto 0.2 K/mm3 (0-0.3); Eosinophils Percent Auto 2.3 % (0-4.4); Hematocrit 28.4 % (42.0-52.0); Hemoglobin 8.7 g/dL (14.0-18.0); Immature Granulocyte Absolute 0.05 K/mm3 (0.00-0.031); Immature Granulocyte Percent A 0.6 % (0-0.5); Lymphocytes Absolute Auto 0.68 K/mm3 (0.9-3.2); Lymphocytes Percent Auto 8.1 % (18.3-44.2); Mean Corpuscular HGB Conc 30.6 g/dl (32-36); Mean Corpuscular Hemoglobin 29.2 pg (26-34); Mean Corpuscular Volume 95.3 fl (80-100); Monocytes Absolute Auto 0.5 K/mm3 (0.1-0.6); Neutrophils Absolute Auto 6.9 K/mm3 (1.3-6.7); Neutrophils Percent Auto 82.4 % (45.5-73.1); Platelet Count Result 201 k/mm3 (150-375); Red Blood Count 2.98 M/mm3 (4.6-6.20); Red Cell Distribution Width 15.9 % (11.5-14.5); White Blood Count 8.4 K/mm3 (4.5-10.0)
[2024-08-03 08:33] LABS: Alanine Aminotransferase 11 U/L (6-50); Albumin Level 3.5 g/dL (3.5-5.1); Alkaline Phosphatase 83 U/L (38-126); Anion Gap 8 mmol/L (4-12); Aspartate Amino Transferase 19 U/L (17-59); Bilirubin,Total 0.2 mg/dL (0.2-1.3); Blood Urea Nitrogen 44 mg/dL (9-20); Calcium 9.3 mg/dL (8.4-10.2); Carbon Dioxide 27 mmol/L (22-30); Chloride 101 mmol/L (98-107); Estimated CRCL calculation 42 ml/min; Estimated Glomerular Filt Rate 42; Glucose 118 mg/dL (65-110); Lipase 100 U/L (23-300); Sodium 136 mmol/L (137-145); Total Protein 7.1 g/dL (6.3-8.2)
[2024-08-03 09:00] VITALS: BP 118/74; PULSE 70; RESP 16; TEMP 36.6; O2SAT 97
--- NOTE | 2024-08-03 09:41 | ED.NAVMDI ---
HPI - Nausea/Vomiting/Diarrhea General Chief complaint: Nausea/Vomiting/Diarrhea Stated complaint: abd pain, g tube issue, n/v Time Seen by Provider: 08/03/24 07:40 History of Present Illness HPI Narrative: Patient is a 78-year-old male who presents ER with nausea vomiting as well as abdominal pain. Patient reports sudden onset this morning. He has a feeding tube in his abdomen and reports that the feeding tube is now markedly shorter than had been previously. He has not use the feeding tube for over a month. He is supposed to have it removed tomorrow. No fevers or chills or sweats. No other complaints. Related Data Home Medications ?Medication ?Instructions ?Recorded ?Confirmed ?Last Taken ?Type aspirin 325 mg tablet 325 mg PO DAILY PRN fever 09/13/21 06/30/24 06/30/24 History fexofenadine 180 mg tablet 180 mg PO DAILY PRN contact 09/13/21 04/24/24 Unknown History dermititis gabapentin 300 mg capsule 600 mg PO Q12H 12/20/21 04/24/24 Unknown History hydrochlorothiazide 25 mg tablet 25 mg PO DAILY 07/23/23 04/24/24 Unknown History amlodipine 10 mg tablet 10 mg PO DAILY 06/30/24 06/30/24 06/30/24 History benzonatate 200 mg capsule 200 mg PO TID 06/30/24 06/30/24 06/30/24 History Allergies Allergy/AdvReac Type Severity Reaction Status Date / Time cephalexin Allergy Severe Rash Verified 06/30/24 18:53 nickel Allergy Mild Other Verified 06/30/24 18:53 cetirizine (From Zyrtec) Allergy Unknown Unknown Verified 06/30/24 18:53 Review of Systems Review of Systems: All systems reviewed & are unremarkable except as noted in HPI and below Constitutional: Constitutional: Reports no additional constitutional complaints Cardiovascular: Cardiovascular: Reports no additional cardiovascular complaints Respiratory: Respiratory: Reports no additional respiratory complaints Gastrointestinal: Gastrointestinal: Reports no additional gastrointestinal complaints Musculoskeletal: Musculoskeletal: Reports no additional musculoskeletal complaints [facility] Past Medical History Medical History Uses feeding tube MRSA infection Perforated gastric ulcer (04/2024) Repair 05/03 PAD (peripheral artery disease) Acute perforated appendicitis Piriformis syndrome Trochanteric bursitis, right hip Lumbar stenosis Low Back Pain Arthritis Colon polyps (07/02/22) Umbilical hernia HTN (hypertension) Hypercholesterolemia Surgical History Surgical History History of abdominal surgery (04/2024) Repair perforated gastric ulcer History of appendectomy (06/2022) Perforated appemdix H/O Spinal surgery (1984) H/O umbilical hernia repair (2011) Hx of tonsillectomy Family History Family History Father Acute myocardial infarction Heart disease Alzheimer disease Mother Acute myocardial infarction Heart disease Alzheimer disease Social History Social History (Updated 06/30/24 @ 19:45 by Pamela Donald MD) Social History: Code status: Full code; POLST signed 06/14/24 Surrogate decision maker: Erika () Smoking status: Never smoker Second hand tobacco smoke exposure: Yes Alcohol intake: never Alcohol use details: Occasional Substance use: never Substance use type: does not use Lack of Transportation: No Lack of Food: Never True Current Housing: I Have Housing Concerned About Future Housing: No Difficulty Paying Gas/Electric Bills: No Difficulty Paying for Meds: No Currently Unemployed: No Education: Master's Degree or Higher Difficulty w/ Childcare or Family Care: No Living arrangements: retirement Additional living arrangements comments: previously with family, currently rehab facility Occupation/Education: retired Gender identity (if verbalized by the patient): Male Spiritual care concerns: No Agree to blood products: Yes Exam Narrative: GENERAL: Well-appearing, well-nourished, and in no acute distress. HEAD: Normocephalic, atraumatic. ENT: Mucous membranes moist. CHEST: Clear to auscultation. No respiratory distress. HEART: Regular rate and rhythm. Normal peripheral pulses. ABDOMEN: Soft, nontender, nondistended. Feeding tube rubbed in left upper quadrant. EXTREMITIES: Normal strength upper extremities and left lower extremity. Chronically weak in the right lower extremity. 2+ edema. SKIN: Warm, dry, no rash. NEURO: Alert and oriented x3. PSYCH: Normal mood and affect. Course Course Emergency Course: Being to initially deflated and pulled back. CT still shows significant length and secondary obstruction in the abdomen. Discussed with Dr. Moreno. Because the patient has been having a normal diet and has no aspiration is okay to remove the feeding tube completely. This has been performed. He may follow-up with the general surgeon in 1 week. Patient does have a 2nd drain in place, him and his family have opted to continue to follow-up with general surgery tomorrow. Vital Signs Vital signs: Vital Signs Temperature 97.8 F 08/03/24 07:39 Pulse Rate 74 08/03/24 07:39 Respiratory Rate 16 08/03/24 07:39 Blood Pressure 141/77 H 08/03/24 07:39 Pulse Oximetry 100 08/03/24 07:39 Oxygen Delivery Room Air 08/03/24 07:39 Temperature 97.9 F 08/03/24 07:47 Pulse Rate 73 08/03/24 07:47 Respiratory Rate 18 08/03/24 07:47 Blood Pressure 132/69 08/03/24 07:47 Pulse Oximetry 97 08/03/24 07:47 Oxygen Delivery Room Air 08/03/24 07:39 MDM - Nausea/Vomiting/Diarrhea Lab Data 08/03/24 08:10 08/03/24 08:10 Labs: Lab Results 08/03/24 Range/Units 08:10 WBC 8.4 (4.5-10.0) K/mm3 RBC 2.98 L (4.6-6.20) M/mm3 Hgb 8.7 L (14.0-18.0) g/dL Hct 28.4 L (42.0-52.0) % MCV 95.3 (80-100) fl MCH 29.2 (26-34) pg MCHC 30.6 L (32-36) g/dl RDW 15.9 H (11.5-14.5) % Plt Count 201 (150-375) k/mm3 MPV 11.0 H (7.4-10.4) fl Immature Gran % (Auto) 0.6 H (0-0.5) % Neut % (Auto) 82.4 H (45.5-73.1) % Lymph % (Auto) 8.1 L (18.3-44.2) % [place] % (Auto) 6.0 (2.6-8.5) % Eos % (Auto) 2.3 (0-4.4) % Baso % (Auto) 0.6 (0.2-1.2) % Lymph # (Auto) 0.68 L (0.9-3.2) K/mm3 [place] # (Auto) 0.5 (0.1-0.6) K/mm3 Eos # (Auto) 0.2 (0-0.3) K/mm3 Baso # (Auto) 0.1 (0.0-0.1) K/mm3 Abs Immat Gran (auto) 0.05 H (0.00-0.031) K/mm3 Absolute Neuts (auto) 6.9 H (1.3-6.7) K/mm3 Absolute Nucleated RBC 0.000 (0.0-0.012) K/mm3 Nucleated RBC % 0.0 (0.0-0.2) % Sodium 136 L (137-145) mmol/L Potassium 5.0 (3.4-5.0) mmol/L Chloride 101 (98-107) mmol/L Carbon Dioxide 27 (22-30) mmol/L Anion Gap 8 (4-12) mmol/L BUN 44 H (9-20) mg/dL Creatinine 1.61 H (0.7-1.3) mg/dL Estim Creat Clear Calc 42 ml/min Estimated GFR 42 L (59 - ) Glucose 118 H (65-110) mg/dL Calcium 9.3 (8.4-10.2) mg/dL Total Bilirubin 0.2 (0.2-1.3) mg/dL AST 19 (17-59) U/L ALT 11 (6-50) U/L Alkaline Phosphatase 83 (38-126) U/L Total Protein 7.1 (6.3-8.2) g/dL Albumin 3.5 (3.5-5.1) g/dL Lipase 100 (23-300) U/L Imaging Data Radiologist's impression: ITS Impressions Abdomen/Pelvis CT 08/03/24 08:58 IMPRESSION: 1. The balloon of the gastrostomy tube is in the third portion of the abdomen causing upstream obstruction and likely the cause of patient's vomiting. Deflating the balloon and repositioning it over a wire in the stomach is recommended. 2. Drainage catheter in the right psoas muscle without any residual fluid collection. Discharge Plan Discharge Clinical Impression: Small bowel obstruction, Complication of feeding tube Patient Disposition: Home Condition: Stable Instructions: Bowel Obstruction (ED) Additional Instructions: Your feeding tube was obstructing her intestines, after removal everything should be normal. Return the ER if he cannot eat or drink, you lose consciousness, have severe abdominal pain, or you have additional concerns. Patient Language: Kyrgyz Prescriptions: No Action fexofenadine 180 mg tablet 180 mg PO DAILY PRN (Reason: contact dermititis) aspirin 325 mg tablet 325 mg PO DAILY PRN (Reason: fever) gabapentin 300 mg capsule 600 mg PO Q12H hydrochlorothiazide 25 mg tablet 25 mg PO DAILY Dose Instruction: TAKE 1 TABLET BY MOUTH DAILY Rx Instructions: TAKE 1 TABLET BY MOUTH DAILY amlodipine 10 mg tablet 10 mg PO DAILY benzonatate 200 mg capsule 200 mg PO TID lisinopril 40 mg tablet See Rx Instructions .ROUTE .COMPLEX Qty: 90 2RF Dose Instruction: TAKE 1 TABLET BY MOUTH EVERY DAY Rx Instructions: TAKE 1 TABLET BY MOUTH EVERY DAY furosemide 40 mg tablet 40 mg PO QAM Qty: 90 2RF tramadol 50 mg tablet 50 mg PO Q4H PRN (Reason: pain) Qty: 90 2RF diclofenac sodium 75 mg tablet,delayed release (DR/EC) See Rx Instructions .ROUTE .COMPLEX Qty: 180 2RF Dose Instruction: TAKE 1 TABLET BY MOUTH TWICE DAILY Rx Instructions: TAKE 1 TABLET BY MOUTH TWICE DAILY atorvastatin 20 mg tablet See Rx Instructions .ROUTE .COMPLEX Qty: 90 2RF Dose Instruction: TAKE 1 TABLET BY MOUTH EVERY DAY Rx Instructions: TAKE 1 TABLET BY MOUTH EVERY DAY Follow-up/Referrals: Demarcus Moreno MD [Physician] - 1 Day Ibrahima Bird MD [Primary Care Provider] -
[2024-08-03 09:58] VITALS: BP 146/66; PULSE 71; RESP 16; O2SAT 99
== END 2024-08-03 10:34 ==
PROVIDERS: Emergency Provider Emergency Medicine; PCP Family Medicine Adolescent Medicine
DX: K94.23 Gastrostomy malfunction (principal); K56.609 Unspecified intestinal obstruction, unspecified as to partial versus complete obstruction; I73.9 Peripheral vascular disease, unspecified; I10 Essential (primary) hypertension; E78.00 Pure hypercholesterolemia, unspecified; M19.90 Unspecified osteoarthritis, unspecified site; Z86.14 Personal history of Methicillin resistant Staphylococcus aureus infection; Z86.0100 Personal history of colon polyps, unspecified; Y83.3 Surgical operation with formation of external stoma as the cause of abnormal reaction of the patient, or of later complication, without mention of misadventure at the time of the procedure
CPT/HCPCS: 36415; 43762; 74177; 80053; 83690; 85025; 99284; Q9967

== ENCOUNTER 2024-08-12 09:23 | Emergency (ER) | payer MEDICARE, SELFPAY ==
--- NOTE | ~2024-08-12 | XR_ITS ---
CHEST RADIOGRAPH CLINICAL HISTORY: syncope . COMPARISON: 06/30/2024 TECHNIQUE: Single portable view of the chest. FINDINGS The cardiomediastinal silhouette is unremarkable. Platelike atelectasis within the left mid to lower lung field. The remainder of the lungs are clear. IMPRESSION: Platelike atelectasis within the left mid to lower lung field, without focal infiltrate or effusion. Reviewed, dictated and finalized at location A. IMPRESSION: Platelike atelectasis within the left mid to lower lung field, without focal in filtrate or effusion.
[2024-08-12 09:25] VITALS: BP 141/60; PULSE 72; RESP 20; TEMP 36.6; O2SAT 100
[2024-08-12 09:32] VITALS: BP 139/72; BP 148/61; PULSE 75; PULSE 80
--- NOTE | 2024-08-12 09:35 | ECG_ITS ---
Test Date: 2024-08-12 09:43:39 Measurements Intervals [place] Rate: 69 P: 24 [place]: 176 QRS: -19 QRSD: 98 T: 35 QT: 382 QTc: 411 Interpretive Statements SINUS RHYTHM Compared to ECG 06/30/2024 19:48:40 No significant changes Electronically Signed On 08-12-2024 12:52:55 CDT by Zak Corley M.D.
[2024-08-12 09:48] LABS: Hematocrit 29.7 % (42.0-52.0); Hemoglobin 9.0 g/dL (14.0-18.0); Immature Granulocyte Percent A 0.4 % (0-0.5); Lymphocytes Absolute Auto 1.10 K/mm3 (0.9-3.2); Mean Corpuscular HGB Conc 30.3 g/dl (32-36); Mean Corpuscular Hemoglobin 28.8 pg (26-34); Mean Corpuscular Volume 94.9 fl (80-100); Nucleated Red Blood Cells Absolute Auto 0.000 K/mm3 (0.0-0.012); Nucleated Red Blood Cells Perc 0.0 % (0.0-0.2); Platelet Count Result 209 k/mm3 (150-375); Red Blood Count 3.13 M/mm3 (4.6-6.20); White Blood Count 9.4 K/mm3 (4.5-10.0)
--- OUTSIDE RECORDS SUMMARY | 2024-08-12 09:57 | XMS_ITS | Encounter Summary ---
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 Threshing Machine Operator Name Role Phone Jayden Dykes DO Primary Care Provider [phone] Encounter Details Date Type Department Care Team (Latest Contact Info) Description 08/10/2024 2:50 PM CDT - 08/10/2024 11:59 PM CDT Hospital Encounter [facility] [address] [place] [address] Jayden Dykes DO [address] [place] [address] Discharge Disposition: Home or Self Care (Routine Discharge) Social History Tobacco Use Types Packs/Day Years Used Date Smoking Tobacco: Never Assessed Sex and Gender Information Value Date Recorded Sex Assigned at Male 06/17/2024 10:29 AM CDT Legal Sex Male 7:06 AM CDT Gender Identity Not on file Sexual Orientation Not on file documented as of this encounter Plan of Treatment Not on file documented as of this encounter Procedures Procedure Name Priority Date/Time Associated Diagnosis Comments SED RATE, ERYTHROCYTE (ESR) Routine 08/10/2024 1:20 PM CDT Abnormal blood chemistry Encounter for long-term (current) drug use COMPREHENSIVE METABOLIC PANEL Routine 08/10/2024 1:20 PM CDT Abnormal blood chemistry Encounter for long-term (current) drug use CKMB(MB FRACTION ONLY) Routine 1:20 PM CDT Abnormal blood chemistry Encounter for long-term (current) drug use C-REACTIVE PROTEIN, HIGH SENSI Routine 08/10/2024 1:20 PM CDT Abnormal blood chemistry Encounter for long-term (current) drug use C-REACTIVE PROTEIN Routine 08/10/2024 1: 20 PM CDT Abnormal blood chemistry Encounter for long-term (current) drug use CBC W/DIFF AUTOMATED Routine 08/10/2024 1:20 PM CDT Abnormal blood chemistry Encounter for long-term (current) drug use TROPONIN, QUANT Routine 08/10/2024 1:20 PM CDT Abnormal blood chemistry Encounter for long-term (current) drug use CK (CPK) Routine 08/10/2024 1:20 PM CDT Abnormal blood chemistry Encounter for long-term (current) drug use documented in this encounter Results * (ABNORMAL) COMPREHENSIVE METABOLIC PANEL (08/10/2024 1:20 PM CDT) [facility] GLUCOSE 118(H) 70 - 99 MG/DL 08/10/2024 3:46 PM CDT [facility] BUN 36(H) 7 - 18 MG/DL 08/10/2024 3:46 PM CDT [facility] CREATININE S/P/B 1.63(H) 0.7 - 1.3 MG/DL 08/10/2024 3:46 PM CDT [facility] SODIUM S/P/B 136 136 - 145 MMOL/L 08/10/2024 3:46 PM CDT [facility] POTASSIUM S/P/B 4.6 3.5 - 5.1 MMOL/L 08/10/2024 3:46 PM CDT [facility] CHLORIDE S/P/B 102 100 - 108 MMOL/L 08/10/2024 3:46 PM CDT [facility] CO2 27.8 21 - 32 MMOL/L 08/10/2024 3:46 PM CDT [facility] CALCIUM S/P/B 8.9 8.5 - 10.1 MG/DL 08/10/2024 3:46 PM [facility] BILIRUBIN TOTAL S/P/B 0.3 0.2 - 1.2 MG/DL 08/10/2024 3:46 PM [facility] TOTAL PROTEIN S/P/B 7.0 6.4 - 8.2 G/DL 08/10/2024 3:46 PM [facility] ALBUMIN S/P/B 3.1(L) 3.4 - 5.0 G/DL 08/10/2024 3:46 PM [facility] AST 15 15 - 37 U/L 08/10/2024 3:46 PM [facility] ALT 17 16 - 60 U/L 08/10/2024 3:46 PM [facility] ALKALINE PHOSPHATASE S/P/B 95 50 - 136 U/L 08/10/2024 3:46 PM [facility] ANION GAP 6.2 5 - 15 MMOL/L 08/10/2024 3:46 PM [facility] BUN CREATININE RATIO 22.1 6 - 26 08/10/2024 3:46 PM [facility] A/G RATIO 0.8(L) 1.0 - 2.0 RATIO 08/10/2024 3:46 PM [facility] GFR ESTIMATE 43(L) >90 ML/MIN/1.7 3 M2 08/10/2024 3:46 PM [facility] Comment: NOTE: eGFR is not calculated for patients <18 years of age. This is an estimated GFR calculation using the new CKD EPI creatinine equation without race and so does not require a correction factor for race. This estimated GFR should not be used for calculating drug doses. 08/10/2024 1:20 PM CDT us Jayden Dykes DO LABORATORY Final Result Performing Organization Address City/[facility]/ZIP Co de Phone Number [facility] [address] [place] [address], [place] [phone] * CK (CPK) (08/10/2024 1:20 PM CDT) CPK 106 39 - 308 U/L 08/10/2024 3:46 PM CDT [facility] 08/10/2024 1:20 PM CDT us Jayden Dykes DO LABORATORY Final Result Performing Organization Address [facility] de Phone Number [facility] [id number] [place] [address], [place] [phone] * CKMB(MB FRACTION ONLY) (08/10/2024 1:20 PM CDT) CK-MB 1.2 0.5 - 3.6 NG/ML 08/11/2024 4:56 PM CDT [facility] 08/10/2024 1:20 PM CDT us Jayden Dykes DO LABORATORY Final Result Performing Organization Address City/[facility] Co de Phone Number [facility] [address] [place] [address], [phone] * TROPONIN, QUANT (08/10/2024 1:20 PM CDT) TROPONIN I HIGH SENSITIVITY 5 0 - 75 ng/L 08/10/2024 3:50 PM CDT [facility] Comment: HIGH DOSES OF BIOTIN, TROPONIN-SPECIFIC AUTOANTIBODIES, AND ANTIBODY THERAPY CONTAINING HAMA MAY INTERFERE WITH THIS TEST RESULT. CORRELATION TO CLINICAL HISTORY AND PRESENTATION RECOMMENDED. 08/10/2024 1:20 PM CDT Jayden Dykes DO LABORATORY Final Result [facility] [address] [place] [phone], * (ABNORMAL) CBC W/DIFF AUTOMATED (08/10/2024 1:20 PM CDT) WBC 8.80 4.4 - 11.0 x10'3/uL 08/10/2024 3:36 PM CDT [facility] RBC 3.05(L) 4.50 - 5.90 x10'6/uL 08/10/2024 3:36 PM CDT [facility] HGB 9.2(L) 14.0 - 17.5 G/DL 08/10/2024 3:36 PM CDT [facility] HCT 29.1(L) 41.5 - 50.4 % 08/10/2024 3:36 PM CDT [facility] MCV 95.4 80.0 - 96.0 FL 08/10/2024 3:36 PM CDT [facility] MCH 30.2 26.5 - 31.4 PG 08/10/2024 3:36 PM CDT [facility] MCHC 31.6(L) 31.9 - 34.8 G/DL 08/10/2024 3:36 PM CDT [facility] RDW 15.9(H) 12.3 - 14.3 % 08/10/2024 3:36 PM CDT [facility] PLT 216 151 - 353 x10'3/uL 08/10/2024 3:36 PM CDT [facility] MPV 12.1(H) 9.7 - 11.9 FL 08/10/2024 3:36 PM CDT [facility] RBC MORPHOLOGY NORMAL 08/10/2024 3:36 PM CDT [facility] PLT MORPH. NORMAL 08/10/2024 3:36 PM CDT [facility] WBC MORPHOLOGY NORMAL 08/10/2024 3:36 PM CDT [facility] LYMPHOCYTES % 13.9(L) 15.8 - 45.0 % 08/10/2024 3:36 PM CDT [facility] NEUTROPHILS % 70.1 42.1 - 71.9 % 08/10/2024 3:36 PM CDT [facility] MONOCYTES % 7.4 5.7 - 12.5 % 08/10/2024 3:36 PM CDT [facility] EOSINOPHILS 7.5(H) 0.0 - 5.6 % 08/10/2024 3:36 PM CDT [facility] BASOPHILS 0.5 0.0 - 1.3 % 08/10/2024 3:36 PM CDT [facility] ABS. NEUTROPHILS 6.18(H) 1.40 - 6.00 x10'3/uL 08/10/2024 3:36 PM CDT [facility] IMMATURE GRANS % 0.6(H) 0.0 - 0.5 % 08/10/2024 3:36 PM CDT [facility] ABS. LYMPHOCYTES 1.22 0.80 - 4.70 x10'3/uL 08/10/2024 3:36 PM CDT [facility] 08/10/2024 1:20 PM CDT us Jayden Dykes DO LABORATORY Final Result [facility] [address] [place] [address], [place] [phone] * (ABNORMAL) SED RATE, ERYTHROCYTE (ESR) (08/10/2024 1:20 PM CDT) ESR 37(H) 0 - 20 MM/HR 08/10/2024 3:38 PM CDT [facility] 08/10/2024 1:20 PM CDT us Jayden Dykes DO LABORATORY Final Result [facility] [address] [place] [address], [place] [phone] * (ABNORMAL) C-REACTIVE PROTEIN (08/10/2024 1:20 PM CDT) C-REACTIVE PROTEIN 0.40(H) <0.29 mg/dL 08/10/2024 8:13 PM CDT [facility] 08/10/2024 1:20 PM CDT us Jayden Dykes DO LABORATORY Final Result Performing Organization Address City/[facility] Co de Phone Number [facility] [address] [place] [address], [place] [phone] * (ABNORMAL) C-REACTIVE PROTEIN, HIGH SENSI (08/10/2024 1:20 PM CDT) HS-CRP 0.40(H) <0.3 mg/dL 08/11/2024 5:41 AM CDT [facility] 08/10/2024 1:20 PM CDT us Jayden Dykes DO LABORATORY Final Result Performing Organization Address City/[facility]/ZIP Co de Phone Number [facility] [address] [place] [address], [place] [phone] documented in this encounter Visit Diagnoses Diagnosis Abnormal blood chemistry Other abnormal blood chemistry Encounter for long-term (current) drug use Encounter for long-term (current) use of other medications documented in this encounter Care Teams Stem Threshing Machine Operator Relationship Specialty Start Date End Date Jayden Dykes DO PCP - General INTERNAL MEDICINE 06/15/24 documented as of this encounter
--- OUTSIDE RECORDS SUMMARY | 2024-08-12 09:57 | XMS_ITS | Clinical Summary ---
Author Organization [facility] Address [address] [place] [id number] Care Team Providers Care Spray Maker Name Role Phone Jayden Dykes DO Primary Care Provider [phone] Encounters Date Type Department Care Team Description 08/10/2024 2:50 PM CDT - 08/10/2024 11:59 PM CDT Hospital Encounter [facility] [address] [place] [address] Jayden Dykes, Discharge Disposition: Home or Self Care (Routine Discharge) 08/10/[address] [facility] [address] [place] [address] Jayden Dykes DO 08/03/2024 7:13 AM CDT - 08/03/2024 11:59 PM CDT Hospital Encounter [facility] [address] [place] [place] [address] Jayden Dykes DO Discharge Disposition: Home or Self Care (Routine Discharge) 08/03/2024 Orders Only [facility] [address] [place] [place] [address] Jayden Dykes DO 07/28/2024 3:41 PM CDT - 07/28/2024 11:59 PM CDT Hospital Encounter [facility] [address] [place] [address] Jayden Dykes DO Discharge Disposition: Home or Self Care (Routine Discharge) 07/28/[address] [facility] [address] [place] [address] Jayden Dykes DO 07/27/2024 12:04 PM CDT - 07/27/2024 11:59 PM CDT Hospital Encounter [facility] [address] [place] [address] Jayden Dykes, DO Discharge Disposition: Home or Self Care (Routine Discharge) 07/27/[address] [facility] [address] [place] [address] Jayden Dykes DO 07/25/2024 12:08 PM CDT - 07/25/2024 11:59 PM CDT Hospital Encounter [facility] [address] [place] [address] Jayden Dykes, DO Discharge Disposition: Home or Self Care (Routine Discharge) 07/25/2024 Orders Only [facility] [address] [place] [address] Jayden Dykes DO 07/22/2024 3:10 PM CDT - 07/22/2024 11:59 PM CDT Hospital Encounter [facility] [address] [place] [address] Jayden Dykes, DO Discharge Disposition: Home or Self Care (Routine Discharge) 07/22/2024 Orders Only [facility] [address] [place] [address] Jayden Dykes DO 07/20/2024 11:32 AM CDT - 07/20/2024 11:59 PM CDT Hospital Encounter [facility] [address] [place] [address] Jayden Dykes, DO Discharge Disposition: Home or Self Care (Routine Discharge) 07/20/2024 Orders Only [facility] [address] [place] [address] Jayden Dykes DO 07/18/2024 10:42 AM CDT - 07/18/2024 11:59 PM CDT Hospital Encounter [facility] [address] [place] [address] Jayden Dykes, DO Discharge Disposition: Home or Self Care (Routine Discharge) 07/18/2024 Orders Only [facility] [address] [place] [address] Jayden Dykes DO 07/13/2024 3:21 PM CDT - 07/13/2024 11:59 PM CDT Hospital Encounter [facility] [address] [place], [place] [address] [address] Jayden Dykes, DO Discharge Disposition: Home or Self Care (Routine Discharge) 07/13/[address] [facility] [address] [place] [address] Jayden Dykes DO 07/06/2024 12:15 PM CDT - 07/06/2024 11:59 PM CDT Hospital Encounter [facility] [address] [place] [address] Jayden Dykes, DO Discharge Disposition: Home or Self Care (Routine Discharge) 07/06/2024 Orders Only [facility] [address] [place] [address] Jayden Dykes DO 06/30/2024 7:02 AM CDT - 06/30/2024 11:59 PM CDT Hospital Encounter [facility] [address] [place] [place] [address] Jayden Dykes, Discharge Disposition: Home or Self Care (Routine Discharge) 06/30/2024 Orders Only [facility] [address] [place] [address] Jayden Dykes, 06/29/2024 12:43 PM CDT - 06/29/2024 11:59 PM CDT Hospital Encounter [facility] [address] [place] [address] Jayden Dykes, Discharge Disposition: Home or Self Care (Routine Discharge) 06/29/[address] [facility] [address] [place] [address] Jayden Dykes DO 06/22/2024 11:16 AM CDT - 06/22/2024 11:59 PM CDT Hospital En[facility] [address] [place] [address] Jayden Dykes DO Discharge Disposition: Home or Self Care (Routine Discharge) 06/22/[address] [facility] [address] [place] [address] Jayden Dykes DO 06/18/2024 11:44 AM CDT - 06/18/2024 11:59 PM CDT Hospital Encounter [facility] [address] [facility] [place] [address] Jayden Dykes DO Discharge Disposition: Home or Self Care (Routine Discharge) 06/18/[address] [facility] [address] [place] [address] Jayden Dykes DO 06/15/2024 7:06 AM CDT - 06/15/2024 11:59 PM CDT Hospital Encounter [facility] [address] [place] [address] Jayden Dykes DO Discharge Disposition: Home or Self Care (Routine Discharge) 06/15/2024 Orders Only [facility] [address] [place] [address] Jayden Dykes DO from Last 3 Months Social History Tobacco Use Types Packs/Day Years Used Date Smoking Tobacco: Never Assessed Sex and Gender Information Value Date Recorded Sex Assigned at Male 06/17/2024 10:29 AM CDT Legal Sex Male 7:06 AM CDT Gender Identity Not on file Sexual Orientation Not on file Plan of Treatment Health Maintenance Due Date Last Done Comments Hepatitis C 08/04/1965 DTaP, Tdap and Td Vaccines ( 1 - Tdap) 08/04/1966 Pneumococcal Vaccine: 50+ Ye ars (1 of 1 - PCV) 08/04/1997 Zoster Vaccines (1 of 2) 08/04/1997 Annual Medicare Wellness Visit 08/04/2012 RSV Immunization or 60+ Years (1 - 1-dose 75+ series) 08/04/2022 COVID-19 Vaccine ( - 2023-2 5 season) 2023 Meningococcal B Vaccine Aged Out No l onger eligible based on patient's age to complete this topic Meningococcal Vaccine Aged Out No virginia andrea eligible based on patient's age to complete this topic RSV Immunizations Under 20 Months Aged Out No longer eligible based on patient's age to complete this topic Procedures Procedure Name Priority Date/Time Associated Diagnosis Comments COMPREHENSIVE METABOLIC PANEL Routine 08/10/2024 1:20 PM CDT Abnormal blood chemistry Encounter for long-term (current) drug use CK (CPK) Routine 08/10/2024 1:20 PM CDT Abnormal blood chemistry Encounter for long-term (current) drug use CKMB(MB FRACTION ONLY) Routine 08/10/2024 1:20 PM CDT Abnormal blood chemistry Encounter for long-term (current) drug use TROPONIN, QUANT Routine 08/10/2024 1:20 PM CDT Abnormal blood chemistry Encounter for long-term (current) drug use CBC W/DIFF AUTOMATED Routine 08/10/2024 1:20 PM CDT Abnormal blood chemistry Encounter for long-term (current) drug use SED RATE, ERYTHROCYTE (ESR) Routine 08/10/2024 1:20 PM CDT Abnormal blood chemistry Encounter for long-term (current) drug use C-REACTIVE PROTEIN Routine 08/10/2024 1: 20 PM CDT Abnormal blood chemistry Encounter for long-term (current) drug use C-REACTIVE PROTEIN, HIGH SENSI Routine 08/10/2024 1:20 PM CDT Abnormal blood chemistry Encounter for long-term (current) drug use COMPREHENSIVE METABOLIC PANEL Routine 08/03/2024 5:30 AM CDT MRSA (methicillin resistant staph aureus) culture positive CK (CPK) Routine 08/03/2024 5:30 AM CDT MRSA (methicillin resistant staph aureus) culture positive CKMB(MB FRACTION ONLY) Routine 08/03/2024 5:30 AM CDT MRSA (methicillin resistant staph aureus) culture positive TROPONIN, QUANT Routine 08/03/2024 5:30 AM CDT MRSA (methicillin resistant staph aureus) culture positive CBC W/DIFF AUTOMATED Routine 08/03/2024 5:30 AM CDT MRSA (methicillin resistant staph aureus) culture positive SED RATE, ERYTHROCYTE (ESR) Routine 08/03/2024 5:30 AM CDT MRSA (methicillin resistant staph aureus) culture positive C-REACTIVE PROTEIN Routine 08/03/2024 5: 30 AM CDT MRSA (methicillin resistant staph aureus) culture positive CK (CPK) Routine 07/28/2024 1:15 PM CDT Intraspinal abscess (HHS/HCC) MRSA (methicillin resistant Staphylococcus aureus) COMPREHENSIVE METABOLIC PANEL Routine 07/27/2024 10:45 AM CDT MRSA infection CBC W/DIFF AUTOMATED Routine 07/27/2024 10:45 AM CDT MRSA infection SED RATE, ERYTHROCYTE (ESR) Routine 07/27/2024 10:45 AM CDT MRSA infection C-REACTIVE PROTEIN, HIGH SENSI Routine 07/27/2024 10:45 AM CDT MRSA infection VANCOMYCIN TROUGH Routine 07/25/2024 11: 00 AM CDT Intraspinal abscess and granuloma (HHS/HCC) COMPREHENSIVE METABOLIC PANEL Routine 07/20/2024 10:30 AM CDT MRSA (methicillin resistant staph aureus) culture positive CBC W/DIFF AUTOMATED Routine 07/20/2024 10:30 AM CDT MRSA (methicillin resistant staph aureus) culture positive SED RATE, ERYTHROCYTE (ESR) Routine 07/20/2024 10:30 AM CDT MRSA (methicillin resistant staph aureus) culture positive C-REACTIVE PROTEIN, HIGH SENSI Routine 07/20/2024 10:30 AM CDT MRSA (methicillin resistant staph aureus) culture positive VANCOMYCIN TROUGH Routine 07/18/2024 9:3 0 AM CDT Abnormal blood chemistry MRSA infection VANCOMYCIN TROUGH STAT 07/13/2024 1:0 0 PM CDT COMPREHENSIVE METABOLIC PANEL Routine 07/13/2024 1:00 PM CDT MRSA infection CBC W/DIFF AUTOMATED Routine 07/13/2024 1:00 PM CDT MRSA infection SED RATE, ERYTHROCYTE (ESR) Routine 07/13/2024 1:00 PM CDT MRSA infection C-REACTIVE PROTEIN, HIGH SENSI Routine 07/13/2024 1:00 PM CDT MRSA infection COMPREHENSIVE METABOLIC PANEL Routine 07/06/2024 10:35 AM CDT Long-term current use of high risk medication other than anticoagulant C-REACTIVE PROTEIN, HIGH SENSI Routine 07/06/2024 10:35 AM CDT Long-term current use of high risk medication other than anticoagulant HC BLOOD COUNT MAN DIFF WBC Routine 07/06/2024 10:35 AM CDT Long-term current use of high risk medication other than anticoagulant SED RATE, ERYTHROCYTE (ESR) Routine 07/06/2024 10:35 AM CDT Long-term current use of high risk medication other than anticoagulant VANCOMYCIN TROUGH Routine 07/06/2024 10: 35 AM CDT Long-term current use of high risk medication other than anticoagulant WBC WI DIFFERENTIAL TIMED 06/30/2024 5 :40 AM CDT CBC W/DIFF AUTOMATED Routine 06/30/2024 5:40 AM CDT Intraspinal abscess (HHS/HCC) Long-term current use of high risk medication other than anticoagulant Routine general medical examination at a health care facility VANCOMYCIN TROUGH Routine 06/29/2024 10: 22 AM CDT Intraspinal abscess (HHS/HCC) VANCOMYCIN TROUGH Routine 06/22/2024 9:3 0 AM CDT Long-term current use of high risk medication other than anticoagulant Routine general medical examination at a [facility] care facility VANCOMYCIN TROUGH Routine 06/18/2024 10: 50 AM CDT Long-term current use of high risk medication other than anticoagulant COMPREHENSIVE METABOLIC PANEL Routine 06/15/2024 5:45 AM CDT Routine general medical examination at a [facility] facility LIPID PANEL Routine 06/15/2024 5:45 AM CDT Routine general medical examination at a [facility] facility CBC W/DIFF AUTOMATED Routine 06/15/2024 5:45 AM CDT Routine general medical examination at [facility] facility from Last 3 Months Results * (ABNORMAL) SED RATE, ERYTHROCYTE (ESR) (08/10/2024 1:20 PM CDT) Only the most recent of6 resultswithin the time period is included. ESR 37(H) 0 - 20 MM/HR 08/10/2024 3:38 PM CDT [facility] 08/10/2024 1:20 PM CDT us Jayden Dykes DO LABORATORY Final Result [facility] [address] [place] [address], [place] [phone] * (ABNORMAL) COMPREHENSIVE METABOLIC PANEL (08/10/2024 1:20 PM CDT) Only the most recent of7 resultswithin the time period is included. [facility] GLUCOSE 118(H) 70 - 99 MG/DL 08/10/2024 3:46 PM [facility] BUN 36(H) 7 - 18 MG/DL 08/10/2024 3:46 PM [facility] CREATININE S/P/B 1.63(H) 0.7 - 1.3 MG/DL 08/10/2024 3:46 PM [facility] SODIUM S/P/B 136 136 - 145 MMOL/L 08/10/2024 3:46 PM [facility] POTASSIUM S/P/B 4.6 3.5 - 5.1 MMOL/L 08/10/2024 3:46 PM [facility] CHLORIDE S/P/B 102 100 - 108 MMOL/L 08/10/2024 3:46 PM [facility] CO2 27.8 21 - 32 MMOL/L 08/10/2024 3:46 PM [facility] CALCIUM S/P/B 8.9 8.5 - 10.1 MG/DL 08/10/2024 3:46 PM [facility] BILIRUBIN TOTAL S/P/B 0.3 0.2 - 1.2 MG/DL 08/10/2024 3:46 PM [facility] TOTAL PROTEIN S/P/B 7.0 6.4 - 8.2 G/DL 08/10/2024 3:46 PM [facility] ALBUMIN S/P/B 3.1(L) 3.4 - 5.0 G/DL 08/10/2024 3:46 PM [facility] AST 15 15 - 37 U/L 08/10/2024 3:46 PM [facility] ALT 17 16 - 60 U/L 08/10/2024 3:46 PM CDT [facility] ALKALINE PHOSPHATASE S/P/B 95 50 - 136 U/L 08/10/2024 3:46 PM CDT [facility] ANION GAP 6.2 5 - 15 MMOL/L 08/10/2024 3:46 PM CDT [facility] BUN CREATININE RATIO 22.1 6 - 26 08/10/2024 3:46 PM CDT [facility] A/G RATIO 0.8(L) 1.0 - 2.0 RATIO 08/10/2024 3:46 PM CDT [facility] GFR ESTIMATE 43(L) >90 ML/MIN/1.7 3 M2 08/10/2024 3:46 PM CDT [facility] Comment: NOTE: eGFR is not [...] DO LABORATORY Final Result Performing Organization Address City/[facility]/ZIP Co de Phone Number [facility] [address] [place] [address], [place] [phone] * CKMB(MB FRACTION ONLY) (08/10/2024 1:20 PM CDT) Only the most recent of2 resultswithin the time period is included. CK-MB 1.2 0.5 - 3.6 NG/ML 08/11/2024 4:56 PM CDT [facility] 08/10/2024 1:20 PM CDT us Jayden Dykes DO LABORATORY Final Result [facility] [address] [place] [address], [id number] * (ABNORMAL) C-REACTIVE PROTEIN, HIGH SENSI (08/10/2024 1:20 PM CDT) Only the most recent of5 resultswithin the time period is included. HS-CRP 0.40(H) <0.3 mg/dL 08/11/2024 5:41 AM CDT [facility] 08/10/2024 1:20 PM CDT us Jayden Dykes DO LABORATORY Final Result [facility] [address] [place] [address], [place] [phone] * (ABNORMAL) C-REACTIVE PROTEIN (08/10/2024 1:20 PM CDT) Only the most recent of2 resultswithin the time period is included. C-REACTIVE PROTEIN 0.40(H) <0.29 mg/dL 08/10/2024 8:13 PM CDT [facility] 08/10/2024 1:20 PM CDT us Jayden Dykes DO LABORATORY Final Result [facility] [address] [place] [address], [place] [phone] * (ABNORMAL) CBC W/DIFF AUTOMATED (08/10/2024 1:20 PM CDT) Only the most recent of7 resultswithin the time period is included. WBC 8.80 4.4 - 11.0 x10'3/uL 08/10/2024 3:36 PM CDT [facility] RBC 3.05(L) 4.50 - 5.90 x10'6/uL [...] 151 - 353 x10'3/uL 08/10/2024 3:36 PM T [facility] MPV 12.1(H) 9.7 - 11.9 FL 08/10/2024 3:36 PM CDT [facility] RBC MORPHOLOGY NORMAL 08/10/2024 3:36 PM T [facility] PLT MORPH. NORMAL 08/10/2024 3:36 PM T [facility] WBC MORPHOLOGY NORMAL 08/10/2024 3:36 PM T [facility] LYMPHOCYTES % 13.9(L) 15.8 [...] DO LABORATORY Final Result [facility] [address] [place] [id number], [place] [phone] * TROPONIN, QUANT (08/10/2024 1:20 PM CDT) Only the most recent of2 resultswithin the time period is included. TROPONIN I HIGH SENSITIVITY 5 0 - 75 ng/L 08/10/2024 3:50 PM CDT [facility] Comment: HIGH DOSES OF BIOTIN, TROPONIN-SPECIFIC AUTOANTIBODIES, AND ANTIBODY THERAPY CONTAINING HAMA MAY INTERFERE WITH THIS TEST RESULT. CORRELATION TO CLINICAL HISTORY AND PRESENTATION RECOMMENDED. 08/10/2024 1:20 PM CDT us Jayden Dykes DO LABORATORY Final Result Performing Organization Address [facility] de Phone Number [facility] [address] [place] [address], [place] [phone] * CK (CPK) (08/10/2024 1:20 PM CDT) Only the most recent of3 resultswithin the time period is included. CPK 106 39 - 308 U/L 08/10/2024 3:46 PM CDT [facility] 08/10/2024 1:20 PM CDT us Jayden Dykes DO LABORATORY Final Result Performing Organization Address [facility] de Phone Number [facility] [address] [place] [address], [place] [phone] * VANCOMYCIN TROUGH (07/25/2024 11:00 AM CDT) Only the most recent of7 resultswithin the time period is included. VANCOMYCIN TROUGH 17.9 10 - 20 MCG/ML 07/25/2024 12:30 PM CDT [facility] Comment: THERAPEUTIC: 10.0-20.0 TOXIC: >25.0 07/25/2024 11:0 0 AM CDT us Jayden Dykes DO LABORATORY Final Result Performing Organization Address [facility] Co de Phone Number [facility] [address] [place] [address], [place] [phone] * (ABNORMAL) CBC, MANUAL DIFF (07/06/2024 10:35 AM CDT) WBC 8.10 4.4 - 11.0 x10'3/uL 07/06/2024 12:34 PM CDT [facility] RBC 2.95(L) 4.50 - 5.90 x10'6/uL 07/06/2024 12:34 PM CDT [facility] HGB 8.8(L) 14.0 - 17.5 G/DL 07/06/2024 12:34 PM T [facility] HCT 27.8(L) 41.5 - 50.4 % 07/06/2024 12:34 PM CDT [facility] MCV 94.2 80.0 - 96.0 FL 07/06/2024 12:34 PM CDT [facility] MCH 29.8 26.5 - 31.4 PG 07/06/2024 12:34 PM T [facility] MCHC 31.7(L) 31.9 - 34.8 G/DL 07/06/2024 12:34 PM T [facility] RDW 15.6(H) 12.3 - 14.3 % 07/06/2024 12:34 PM T [facility] PLT 268 151 - 353 x10'3/uL 07/06/2024 12:34 PM T [facility] MPV 11.9 9.7 - 11.9 FL 07/06/2024 12:34 PM T [facility] RBC MORPHOLOGY NORMAL 07/06/2024 12:34 PM T [facility] PLT MORPH. NORMAL 07/06/2024 12:34 PM T [facility] WBC MORPHOLOGY NORMAL 07/06/2024 12:34 PM T [facility] SEG NEUTROPHILS 63 42 - 72 % 12:46 PM T [facility] LYMPHOCYTES 22 15.8 - 45.0 % 07/06/2024 12:46 PM CDT [facility] MONOCYTES 6 5.7 - 12.5 % 07/06/2024 12:46 PM CDT [facility] EOSINOPHILS 9(H) 0 - 5.6 % 07/06/2024 12:46 PM CDT [facility] ABS. NEUTROPHILS 5.10 1.40 - 6.00 x10'3/uL 07/06/2024 12:46 PM CDT [facility] ABS. LYMPHOCYTES 1.78 0.80 - 4.70 x10'3/uL 07/06/2024 12:46 PM CDT [facility] 07/06/2024 10:3 5 AM CDT Jayden Dykes DO LABORATORY Final Result [facility] [address] [place] [address], * (ABNORMAL) WBC WI DIFFERENTIAL (06/30/2024 5:40 AM CDT) WBC 7.96 4.50 - 11.00 x10'3/uL 06/30/2024 7:30 AM CDT [facility] DIFFERENTIAL TYPE MANUAL DIFFERENTIAL 07/01/2024 6:21 AM CDT [facility] SEG NEUTROPHILS 71 % 12:03 PM CDT [facility] LYMPHOCYTES 21 % 06/30/2024 12:03 PM CDT [facility] EOSINOPHILS 6 % 06/30/2024 12:03 PM CDT [facility] BASOPHILS 2 % 06/30/2024 12:03 PM CDT [facility] ABS. NEUTROPHILS 5.65 1.80 - 7.70 x10'3/uL 06/30/2024 12:03 PM CDT [facility] ABS. LYMPHOCYTES 1.67 1.00 - 4.80 x10'3/uL 06/30/2024 12:03 PM CDT [facility] ABS. EOSINOPHILS 0.48 0.04 - 0.54 x10'3/uL 06/30/2024 12:03 PM CDT [facility] ABS. BASOPHILS 0.16(H) 0.01 - 0.08 x10'3/uL 06/30/2024 12:03 PM CDT [facility] RBC MORPHOLOGY RBC MORPHOLOGY APPEARS NORMAL. SLIDE REVIEWED. 06/30/2024 12:03 PM CDT [facility] PLT EST. ADEQUATE 06/30/2024 12:03 PM CDT [facility] 06/30/2024 5:40 AM CDT Jayden Dykes DO LABORATORY Final Result [facility] [address] [place] [address], [address] [place] [address], [place] * (ABNORMAL) LIPID PANEL (06/15/2024 5:45 AM CDT) CHOLESTEROL 75 <200 MG/DL 06/15/2024 3:17 PM CDT [facility] TRIGLYCERIDES 105 <150 MG/DL 06/15/2024 3:17 PM CDT [facility] HDL 25(L) >40.0 MG/DL 06/15/2024 3:17 PM CDT [facility] LDL (CALCULATED) 29 <100 MG/DL 06/16/19 3:17 PM CDT [facility] NON HDL CHOLESTEROL 50 <130 MG/DL 06/15 3:17 PM CDT [facility] CHOL/HDL RATIO 3.0 0.0 - 4.5 06/15/2024 3:17 PM CDT [facility] VLDL CALCULATION 21 5 - 55 MG/DL 06/15/2024 3:17 PM CDT [facility] LIPID INTERPRETATION 06/15/2024 3:17 PM CDT [facility] Comment: [facility] REPORT RECOMMENDATIONS: ADULT CHILD LOW RISK: CHOLESTEROL <200 <170 TRIGLYCERIDE <150 --- HDL >=60 --- LDL <100 <110 BORDERLINE: CHOLESTEROL 200-239 170-199 TRIGLYCERIDE 150-199 --- HDL 40-59 --- LDL 100-159 110-129 HIGH RISK: CHOLESTEROL >=240 >=200 TRIGLYCERIDE >=200 --- HDL <40 --- LDL >=160 >=130 06/15/2024 5:45 AM CDT us Jayden Dykes DO LABORATORY Final Result Performing Organization Address City/State/[facility] Co de Phone Number [facility] [address] [place] [phone], from Last 3 Months Insurance [employer] Care Teams Spray Maker Relationship Specialty Start Date End Date Jayden Dykes DO PCP - General INTERNAL MEDICINE 06/15/24
--- OUTSIDE RECORDS SUMMARY | 2024-08-12 09:57 | XMS_ITS | Patient Health Record ---
Author Organization [facility] Address [address] [place] [id number] Care Team Providers Care Museum Attendant Name Role Phone MICHELLE MOCTEZUMA Primary Care Provider GANESH HILL Unavailable [phone] Fariha Bullock Unavailable [phone] Allergies Allergen (clinical drug ingredient) Drug/Non Drug Allergy documented on EMR Reaction Allergy Type Onset Date Status Keflex Unknown Drug Allergy Active nickel Nickel Unknown Allergy Active Results Component Value Reference Range Notes Lipid Panel Reviewed date:06/15/2024 03:53:55 PM Interpretation: Performing Lab: Notes/Report: Comp. Metabolic Panel (14) Reviewed date:06/15/2024 08:57:53 AM Interpretation: Performing Lab: Notes/Report: CBC Reviewed date:06/15/2024 08:57:37 AM Interpretation: Performing Lab: Notes/Report: CBC Reviewed date:06/30/2024 10:15:53 AM Interpretation: Performing Lab: Notes/Report: Comp. Metabolic Panel (14) Reviewed date:06/30/2024 10:16:25 AM Interpretation: Performing Lab: Notes/Report: Sedimentation Rate-[place] Reviewed date:07/06/2024 02:36:46 PM Interpretation: Performing Lab: Notes/Report: Comp. Metabolic Panel (14) Reviewed date:07/06/2024 02:37:53 PM Interpretation: Performing Lab: Notes/Report: CBC Reviewed date:07/06/2024 02:37:05 PM Interpretation: Performing Lab: Notes/Report: Vancomycin Trough, Serum Reviewed date:07/06/2024 02:37:22 PM Interpretation: Performing Lab: Notes/Report: Reason For Referral No Information Medications Medication SIG (Take, Route, Frequency, Duration) Notes Start Date End Date Status Benzonatate 100 MG Capsule 1 capsule as needed Orally every 6 hours Active Vancomycin HCl 750 MG Solution Reconstituted 750 mg Intravenous once daily Active Aspirin 325 MG Tablet 1 tablet Orally On ce a day Active Tylenol 8 Hour 650 MG Tablet Extended Release 1 tablet Orally twice a day Active Atorvastatin Calcium 20 MG Tablet 1 tablet Orally Once a day Active oxyCODONE-Acetaminophen 5-32 5 MG Tablet 1 tablet at bedtime Orally once a day; Duration: 30 days 07/27/2024 08/26/2024 Active Lisinopril 40 MG Tablet 1 tablet Orally Once a day Active Saline Flush 0.9 % Solution 1 unit Intra venous twice daily Active amLODIPine Besylate 10 MG Tablet 1 tablet Orally Once a day Active Lasix 40 MG Tablet 1 tablet Orally Once a day Active Lidocaine 4 % Gel 1 application Externally once daily Active Heparin Lock Flush 100 UNIT/ML Solution 5 mL Injection once daily Active hydroCHLOROthiazide 25 MG Tablet 1 tablet in the morning Orally Once a day Active Ferrous Sulfate 325 (65 Fe) MG Tablet 1 tablet Orally once daily Active Gabapentin 300 MG Capsule 2 capsule Oral ly three times daily Active Social History Tobacco Use: Social History Observation Description Date Details (start date - stop date) Never Smoker NA - NA Social History Drug/Alcohol: Social Info Question Answer Notes Drugs Have you used drugs other than those for medical reasons in the past 12 months? No AUDIT-C (Standard) Did you have a drink containing alcohol in the past year? No Points 0 Interpretation Negative Tobacco Use: Social Info Question Answer Notes Tobacco Control (Standard) Tobacco use: Nonsmoker Problems Problem Type SNOMED Code ICD Code Onset Dates Problem Status W/U Status Risk Notes Problem Methicillin resistant Staphylococcus aureus infection (496239355) Methicillin resistant Staphylococcus aureus infection, unspecified site (A49.02) Active confirmed Problem Malnutrition of moderate degree (Louise: 60% to less than 75% of standard weight) (30862361) Moderate protein-calorie malnutrition (E44.0) Active confirmed Problem Localized, primary osteoarthritis of the wrist (447602233) Primary osteoarthritis, 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) Active confirmed Problem Oropharyngeal dysphagia (35693156) Dysphagia, oropharyngeal phase (R13.12) Active confirmed Problem Gastrostomy present (264997311) Gastrostomy status (Z93.1) Active confirmed Problem Essential hypertension (87152463) Essential (primary) hypertension (I10) Active confirmed Problem Peripheral vascular disease (285085192) Peripheral vascular disease (I73.9) Active confirmed Problem Physical deconditioning (22272129655054) Physical deconditioning (R53.81) Active confirmed Problem Odom catheter present (Z97.8) Active confirmed Problem Iron deficiency anemia due to chronic blood loss (252475259) Iron deficiency anemia due to chronic blood loss (D50.0) Active confirmed Vital Signs Heart Rate 77 /min 08/11/2024 Temperature 98.8 degrees Fahrenheit 08/11/2024 Respiratory Rate 16 /min 08/11/2024 Oximetry 97 % 08/11/2024 Blood pressure diastolic 78 mm Hg 08/11/2024 Blood pressure systolic 139 mm Hg 08/11/2024 Encounters Encounter Location Date Provider Diagnosis [address] [address] 06/22/2024 [place] [address] 06/29/2024 Fariha Bullock Methicillin resistan t Staphylococcus aureus infection, unspecified site A49.02 ; Essential (primary) hypertension I10 and Primary osteoarthritis, unspecified wrist M19.039 [place] [address] 07/07/2024 GANESH HILL Methicillin resistan t Staphylococcus aureus infection, unspecified site A49.02 ; Essential (primary) hypertension I10 ; Primary osteoarthritis, unspecified wrist M19.039 ; Abscess, psoas K68.12 ; Acute gastric ulcer with perforation K25.1 and Urinary retention R33.[address] [address] 07/14/2024 Fariha Bullock Methicillin resistan t Staphylococcus aureus infection, unspecified site A49.02 ; Essential (primary) hypertension I10 ; Primary osteoarthritis, unspecified wrist M19.039 ; Physical deconditioning R53.81 and Odom catheter present Z97.[address] [address] 07/28/2024 Fariha Bullock Methicillin resistan t Staphylococcus aureus infection, unspecified site A49.02 ; Essential (primary) hypertension I10 ; Primary osteoarthritis, unspecified wrist M19.039 ; Physical deconditioning R53.81 and Odom catheter present Z97.8 [facility] [address] [place] [address] 08/04/2024 Fariha Bullock Methicillin resistan t Staphylococcus aureus infection, unspecified site A49.02 ; Essential (primary) hypertension I10 ; Primary osteoarthritis, unspecified wrist M19.039 ; Physical deconditioning R53.81 and Odom catheter present Z97.8 [facility] [address] [place] [address] 08/11/2024 Fariha Bullock Methicillin resistan t Staphylococcus aureus infection, unspecified site A49.02 ; Essential (primary) hypertension I10 ; Primary osteoarthritis, unspecified wrist M19.039 ; Physical deconditioning R53.81 and Odom catheter present Z97.8 [facility] [address] [place] [address] 06/14/2024 MICHELLE JOSE ELIAS [facility] [address] [place] [address] 06/21/2024 MICHELLE MOCTEZUMA [facility] [address] [place] [address] 06/23/2024 Fariha Bullock [facility] [address] [place] [address] 06/28/20[facility] [address] [place] [address] 06/29/2024 [facility] [address] [place] [address] 07/06/2024 GANESH HILL [facility] [address] [place] [address] 07/14/2024 Fariha Bullock [facility] [address] [place] [address] 07/26/2024 Fariha Bullock [facility] [address] [place] [address] 07/27/2024 Fariha Bullock [facility] [address] 08/01/2024 [facility] [address] 08/03/2024 MICHELLE JOSE ELIAS [facility] [address] [address] 08/09/2024 Fariha Bullock Assessments Encounter Date Diagnosis (ICD Code) Assessment Notes Treatment Notes Treatment Clinical Notes Section Notes 06/29/2024 Methicillin resistant Staphylococcus aureus infection, unspecified site (ICD-10 - A49.02) continue physical therapy. Schedule Percocet 5/325 mg every night at bedtime. Schedule Tylenol 650 mg every day at 8 a.m. and 2 p.m. He will continue his vancomycin antibiotics through July 21. Follow-up with nfectious disease and infectious disease is drawing labs every Thursday for review. 06/29/2024 Essential (primary) hypertension (ICD-10 - I10) Stable with current management Continue current medication Report persistent BP elevated greater than 140/90 Report new or worsening symptoms of h/a, dizziness, chest pain, shortness of breath, new or worsening edema 07/07/2024 Methicillin resistant Staphylococcus aureus infection, unspecified site (ICD-10 - A49.02) He will continue his vancomycin antibiotics through July 21. Follow-up with infectious disease and infectious disease is drawing labs every Thursday for review. 07/07/2024 Essential (primary) hypertension (ICD-10 - I10) Stable with current management Continue current medication Report persistent BP elevated greater than 140/90 Report new or worsening symptoms of h/a, dizziness, chest pain, shortness of breath, new or worsening edema 07/14/2024 Methicillin resistant Staphylococcus aureus infection, unspecified site (ICD-10 - A49.02) Continue vancomycin IV as ordered by infectious disease Continue current medications for pain Follow-up with infectious disease and infectious disease. 07/14/2024 Essential (primary) hypertension (ICD-10 - I10) Stable with current management Continue current medication Report persistent BP elevated greater than 140/90 Report new or worsening symptoms of h/a, dizziness, chest pain, shortness of breath, new or worsening edema 07/28/2024 Methicillin resistant Staphylococcus aureus infection, unspecified site (ICD-10 - A49.02) Continue following with infectious disease, vancomycin being stopped and daptomycin being started every Q24 hours. Continue weekly labs per infectious disease order. 08/04/2024 Methicillin resistant Staphylococcus aureus infection, unspecified site (ICD-10 - A49.02) Continue following with infectious. Currently getting daptomycin. Continue weekly labs per infectious disease order. 08/11/2024 Methicillin resistant Staphylococcus aureus infection, unspecified site (ICD-10 - A49.02) Continue following with infectious. Currently getting daptomycin. Continue weekly labs per infectious disease order. Appt with ID 09/02 Abx scheduled to be DC'd 09/0308/11/2024 Essential (primary) hypertension (ICD-10 - I10) Stable with current management Continue current medication Report persistent BP elevated greater than 140/90 Report new or worsening symptoms of h/a, dizziness, chest pain, shortness of breath, new or worsening edema 08/11/2024 Primary osteoarthritis, unspecified wrist (ICD-10 - M19.039) continue sheduled pain medication 08/04/2024 Essential (primary) hypertension (ICD-10 - I10) Stable with current management Continue current medication Report persistent BP elevated greater than 140/90 Report new or worsening symptoms of h/a, dizziness, chest pain, shortness of breath, new or worsening edema 07/28/2024 Essential (primary) hypertension (ICD-10 - I10) Stable with current management Continue current medication Report persistent BP elevated greater than 140/90 Report new or worsening symptoms of h/a, dizziness, chest pain, shortness of breath, new or worsening edema 07/14/2024 Primary osteoarthritis, unspecified wrist (ICD-10 - M19.039) continue sheduled pain medication 07/07/2024 Primary osteoarthritis, unspecified wrist (ICD-10 - M19.039) 06/29/2024 Primary osteoarthritis, unspecified wrist (ICD-10 - M19.039) Scheduled pain medication 07/07/2024 Abscess, psoas (ICD-10 - K68.12) Patient reports previously followed by neurosurgery. Does have complaints of numbness and decrease sensation. I discussed with patient and family recommending scheduling neurosurgery follow-up mid to late July after completing antibiotics. 07/14/2024 Physical deconditioning (ICD-10 - R53.81) Continue working with therapy as directed Continue to assist with daily living activities as needed 07/28/2024 Primary osteoarthritis, unspecified wrist (ICD-10 - M19.039) continue sheduled pain medication 08/04/2024 Primary osteoarthritis, unspecified wrist (ICD-10 - M19.039) continue sheduled pain medication 08/11/2024 Physical deconditioning (ICD-10 - R53.81) Continue working with therapy as directed Continue to assist with daily living activities as needed 08/11/2024 Odom catheter present (ICD-10 - Z97.8) Change odom catheter monthly or as needed Monitor for urinary tract infection Catheter changed yesterday 08/04/2024 Physical deconditioning (ICD-10 - R53.81) Continue working with therapy as directed Continue to assist with daily living activities as needed 07/28/2024 Physical deconditioning (ICD-10 - R53.81) Continue working with therapy as directed Continue to assist with daily living activities as needed 07/14/2024 Odom catheter present (ICD-10 - Z97.8) Change odom catheter monthly or as needed Monitor for urinary tract infection 07/07/2024 Acute gastric ulcer with perforation (ICD-10 - K25.1) Patient with G tube in place. Currently not using G-tube for any nutrition. All nutrition taken po. Patient is questioning when G tube can be removed. He states he does have follow-up scheduled with GI. I discussed that GI would be able to advise patient when removal is appropriate. 07/07/2024 Urinary retention (ICD-10 - R33.9) Patient with Odom catheter in place. No complaints at this time. Urology follow-up scheduled. 07/28/2024 Odom catheter present (ICD-10 - Z97.8) Change odom catheter monthly or as needed Monitor for urinary tract infection 08/04/2024 Doom catheter present (ICD-10 - Z97.8) Change odom catheter monthly or as needed Monitor for urinary tract infection 06/29/2024 Other Follow up in 1 week Continue current meds. Continue current treatment. Educated on plan of care. Staffto monitor and report any changes. Patient education provided and questions/concer ns. Reviewed HIPAA Right to Privacy with patient/family/c aregiver. 07/07/2024 Other Continue current treatment plan. Staff to continue to monitor and report any changes. Patient education provided and questions/concer ns addressed. Follow up in 2-4 weeks unless necessary sooner. 07/14/2024 Other Continue current treatment plan. Staff to continue to monitor and report any changes. Patient education provided and questions/concer ns addressed. Follow up in one week unless necessary sooner. Reviewed HIPAA Right to Privacy Practices with patient/family/c aregiver. 07/28/2024 Other Continue current treatment plan. Staff to continue to monitor and report any changes. Patient education provided and questions/concer ns addressed. Follow up in one week unless necessary sooner. Reviewed HIPAA Right to Privacy Practices with patient/family/c aregiver. 08/04/2024 Other Continue current treatment plan. Staff to continue to monitor and report any changes. Patient education provided and questions/concer ns addressed. Follow up in one week unless necessary sooner. Reviewed HIPAA Right to Privacy Practices with patient/family/c aregiver. 08/11/2024 Other Continue current treatment plan. Staff to continue to monitor and report any changes. Patient education provided and questions/concer ns addressed. Follow up in one week unless necessary sooner. Reviewed HIPAA Right to Privacy Practices with patient/family/c aregiver. 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
--- OUTSIDE RECORDS SUMMARY | 2024-08-12 09:57 | XMS_ITS ---
Author Organization [facility] Address [address] [place] [id number] Care Team Providers Care Coding Auditor Name Role Phone MICHELLE MOCTEZUMA Primary Care Provider Fariha Bullock Unavailable [phone] Allergies Allergen (clinical drug ingredient) Drug/Non Drug Allergy documented on EMR Reaction Allergy Type Onset Date Status Keflex Unknown Drug Allergy Active nickel Nickel Unknown Allergy Active REASON FOR VISIT ACC, skilled f/u Medications Medication SIG (Take, Route, Frequency, Duration) Notes Start Date End Date Status Ferrous Sulfate 325 (65 Fe) MG Tablet 1 tablet Orally once daily Active Benzonatate 100 MG Capsule 1 capsule as needed Orally every 6 hours Active Aspirin 325 MG Tablet 1 tablet Orally On ce a day Active Atorvastatin Calcium 20 MG Tablet 1 tablet Orally Once a day Active amLODIPine Besylate 10 MG Tablet 1 tablet Orally Once a day Active Lasix 40 MG Tablet 1 tablet Orally Once a day Active Lidocaine 4 % Gel 1 application Externally once daily Active Heparin Lock Flush 100 UNIT/ML Solution 5 mL Injection once daily Active hydroCHLOROthiazide 25 MG Tablet 1 tablet in the morning Orally Once a day Active Gabapentin 300 MG Capsule 2 capsule Oral ly three times daily Active Vancomycin HCl 750 MG Solution Reconstituted 750 mg Intravenous once daily Active Tylenol 8 Hour 650 MG Tablet Extended Release 1 tablet Orally twice a day Active oxyCODONE-Acetaminophen 5-32 5 MG Tablet 1 tablet at bedtime Orally once a day; Duration: 30 days 07/27/2024 08/26/2024 Active Lisinopril 40 MG Tablet 1 tablet Orally Once a day Active Saline Flush 0.9 % Solution 1 unit Intra venous twice daily Active Social History Tobacco Use: Social History Observation Description Date Details (start date - stop date) Never Smoker NA - NA Social History Tobacco Use: Social Info Question Answer Notes Tobacco Control (Standard) Tobacco use: Nonsmoker Vital Signs Temperature 98.8 degrees Fahrenheit 08/12/19 25 Blood pressure systolic 139 mm Hg 08/12/19 25 Blood pressure diastolic 78 mm Hg 025 Heart Rate 77 /min 08/11/2024 Respiratory Rate 16 /min 08/11/2024 Oximetry 97 % 08/11/2024 Encounters Encounter Location Date Provider Diagnosis [address] [address] 08/11/2024 Fariha Bullock Methicillin resistan t Staphylococcus aureus infection, unspecified site A49.02 ; Essential (primary) hypertension I10 ; Primary osteoarthritis, unspecified wrist M19.039 ; Physical deconditioning R53.81 and Odom catheter present Z97.8 Assessments Encounter Date Diagnosis (ICD Code) Assessment Notes Treatment Notes Treatment Clinical Notes Section Notes 08/11/2024 Methicillin resistant Staphylococcus aureus infection, unspecified [...] for urinary tract infection Catheter changed yesterday 08/11/2024 Other Continue current treatment plan. Staff to continue to monitor and report any changes. Patient education provided and questions/conc erns addressed. Follow up in one week unless necessary sooner. Reviewed HIPAA Right to Privacy Practices with patient/family /caregiver. Plan Of Treatment Treatment Notes Assessment Notes Methicillin resistant Staphy lococcus aureus infection, unspecified site Continue following with infectious. Currently getting daptomycin. Continue weekly labs per infectious disease order. Appt with ID 09/02 Abx scheduled to be DC'd 09/03 Essential (primary) hypertension Stable with current management Continue current medication Report persistent BP elevated greater than 140/90 Report new or worsening symptoms of h/a, dizziness, chest pain, shortness of breath, new or worsening edema Primary osteoarthritis, unspecified wris t continue sheduled pain medication Physical deconditioning Continue working with therapy as directed Continue to assist with daily living activities as needed Odom catheter present Change odom catheter monthly or as needed Monitor for urinary tract infection Catheter changed yesterday Other Continue current treatment plan. Staff to continue to monitor and report any changes. Patient education provided and questions/concerns addressed. Follow up in one week unless necessary sooner. Reviewed HIPAA Right to Privacy Practices with patient/family/caregiver. Next Appt Details Follow Up: 1 Week, Reason: Provider Name:MICHELLE Ramon JOSE ELIAS, 08/16/2024 08:30:00 AM, [address] [place] [address], [id number], History and Physical Notes * Examination Category Sub-Category Detail Notes Category Not es General Examination General appearance: alert, p leasant, well-nourished and in no acute distress Head: normocephalic, atrau matic Ears: normal Nose: nares patent Heart: regular rate and rhy thm without murmurs, gallops, clicks or rubs, no jugular venous distention Lungs: clear to auscultatio n bilaterally, with good air movement and no rales, rhonchi or wheezes Abdomen: bowel sounds present Neurologic: alert, cooperative w ith exam, gait abnormal, abnormal upper and lower extremity motor strength and function Skin: skin is warm and dry , dressing to abdomen where g-tube was removed Extremities: 2+ bilateral pitting edema, no clubbing, cyanosis Musculoskeletal: no swelling, redness , warmth or tender joints use wheelchair, PICC line in right upper arm Male genitourinary: odom draining clear yellow urine Psych: alert and oriented, calm, follow commands, cooperative with exam. Oral cavity: normal, mucosa moist Progress Notes * Yovany LACEY:[birth year] (79 yo M)Acc No.[id number]:08/11/2024 Patient: Ludin Baker Provider: Mauri Bullock NP :[id number] A ge:79 Y S ex:Male Date:08/11/2024 Address:[address] [place], [place] [id number] Pcp:MICHELLE MOCTEZUMA Subjective: * Chief Complaints: * A CC, skilled f/u * HPI: T ransition of Care: Patient presents today for a skilled visit. Patient continues to follow with infectious disease. Recent labs indicate improvement in kidney function and infection. Patient sitting with family at bedside. In a pleasant mood. Odom catheter changed yesterday. Patient is scheduled to follow with ID on 09/02. He continues to recieve therapy. * ROS: G eneral / Constitutional: Patient denies f atigue, headache, lightheadedness, sleep disturbance, weight gain. P atient complains of w eakness. E NT: Patient denies e ar pain, hoarseness, nasal congestion, pain, sinus pain, sore throat. R espiratory: Patient denies c hest pain, cough, shortness of breath, sputum production. C ardiovascular: Patient denies c hest pain, chest pain with exertion, irregular heartbeat, palpitations, shortness of breath. G astrointestinal: Patient denies a bdominal pain, constipation, diarrhea, rectal bleeding, vomiting, weight loss, blood in stool. G enitourinary: Patient denies b lood in the urine, difficulty urinating, frequent urination, painful urination. M usculoskeletal: Patient denies a rthritis / arthralgia, back pain, back problems, painful joints. P atient complains of s wollen legs, PICC line in his right arm. C omments u se wheelchair. P eripheral Vascular: Patient denies c old extremities, decreased sensation in extremities, painful extremities. S kin: Patient denies d iscoloration, dry skin, rash, ulcerations, itching. N eurologic: Patient denies c onfusion, dizziness, tingling / numbness, tremor. P atient complains of g ait abnormality, loss of strength. P sychiatric: Patient denies a nxiety, depressed mood, loss of appetite, mood disorder, suicidal thoughts. * Medical History: Intraspinal abscess and granuloma Candidiasis Methicillin resistant Staphylococcus aureus infection, unspecified site Acute gastric ulcer with perforation Acute kidney failure, unspecified Psoas muscle abscess Gastrostomy status Dysphagia, oropharyngeal phase Iron deficiency anemia due to chronic blood loss Peripheral vascular disease Essential (primary) hypertension Moderate protein-calorie malnutrition Primary osteoarthritis, unspecified wrist Retention of urine * Surgical History: NO PREVIOUS SURGERIES * Family History: F ather: diagnosed with Hypertension. * Social History: T obacco Use: T obacco Control (Standard) T obacco use: N onsmoker. * Medications: T akingTylenol 8 Hour 650 MG Tablet Extended Release 1 tablet Orally twice a day Vancomycin HCl 750 MG Solution Reconstituted 750 mg Intravenous once daily Saline Flush 0.9 % Solution 1 unit Intravenous twice daily Lisinopril 40 MG Tablet 1 tablet Orally Once a day Lidocaine 4 % Gel 1 application Externally once daily Lasix 40 MG Tablet 1 tablet Orally Once a day hydroCHLOROthiazide 25 MG Tablet 1 tablet in the morning Orally Once a day Heparin Lock Flush 100 UNIT/ML Solution 5 mL Injection once daily Gabapentin 300 MG Capsule 2 capsule Orally three times daily Ferrous Sulfate 325 (65 Fe) MG Tablet 1 tablet Orally once daily Benzonatate 100 MG Capsule 1 capsule as needed Orally every 6 hours Atorvastatin Calcium 20 MG Tablet 1 tablet Orally Once a day Aspirin 325 MG Tablet 1 tablet Orally Once a day amLODIPine Besylate 10 MG Tablet 1 tablet Orally Once a day oxyCODONE-Acetaminophen 5-325 MG Tablet 1 tablet at bedtime Orally once a day , stop date 08/26/2024Taking Tylenol 8 Hour 650 MG Tablet Extended Release 1 tablet Orally twice a day Taking Vancomycin HCl 750 MG Solution Reconstituted 750 mg Intravenous once daily Taking Saline Flush 0.9 % Solution 1 unit Intravenous twice daily Taking Lisinopril 40 MG Tablet 1 tablet Orally Once a day Taking Lidocaine 4 % Gel 1 application Externally once daily Taking Lasix 40 MG Tablet 1 tablet Orally Once a day Taking hydroCHLOROthiazide 25 MG Tablet 1 tablet in the morning Orally Once a day Taking Heparin Lock Flush 100 UNIT/ML Solution 5 mL Injection once daily Taking Gabapentin 300 MG Capsule 2 capsule Orally three times daily Taking Ferrous Sulfate 325 (65 Fe) MG Tablet 1 tablet Orally once daily Taking Benzonatate 100 MG Capsule 1 capsule as needed Orally every 6 hours Taking Atorvastatin Calcium 20 MG Tablet 1 tablet Orally Once a day Taking Aspirin 325 MG Tablet 1 tablet Orally Once a day Taking amLODIPine Besylate 10 MG Tablet 1 tablet Orally Once a day Taking oxyCODONE-Acetaminophen 5-325 MG Tablet 1 tablet at bedtime Orally once a day , stop date 08/26/2024 * Allergies: K eflexNickel Objective: * Vitals: B P: 139/78 mm Hg, HR: 77 /min, RR: 16 /min, Temp: 98.8 F, Oxygen sat %: 97 %. * Examination: G eneral Examination: General appearance: a lert, pleasant, well-nourished and in no acute distress. Head: n ormocephalic, atraumatic. Ears: n ormal. Nose: n ajay patent. Oral cavity: n ormal, mucosa moist. Skin: s kin is warm and dry, dressing to abdomen where g-tube was removed. Heart: r egular rate and rhythm without murmurs, gallops, clicks or rubs, no jugular venous distention. Lungs: c lear to auscultation bilaterally, with good air movement and no rales, rhonchi or wheezes. Abdomen: b owel sounds present. Male genitourinary: f oley draining clear yellow urine.? Musculoskeletal: n o swelling, redness, warmth or tender joints use wheelchair, PICC line in right upper arm. Extremities: 2 + bilateral pitting edema, no clubbing, cyanosis. Neurologic: a lert, cooperative with exam, gait abnormal, abnormal upper and lower extremity motor strength and function. Psych: a lert and oriented, calm, follow commands, cooperative with exam. Assessment: * Assessment: 1. M ethicillin resistant Staphylococcus aureus infection, unspecified site - A49.02 (Primary)? 2. E ssential (primary) hypertension - I10 3 . P rimary osteoarthritis, unspecified wrist - M19.039 4 . P hysical deconditioning - R53.81 5. F oley catheter present - Z97.8 Plan: * Treatment: 2. E ssential (primary) hypertension Notes: Stable with current management Continue current medication Report persistent BP elevated greater than 140/90 Report new or worsening symptoms of h/a, dizziness, chest pain, shortness of breath, new or worsening edema 3. P rimary osteoarthritis, unspecified wrist Notes: continue sheduled pain medication 4. P hysical deconditioning Notes: Continue working with therapy as directed Continue to assist with daily living activities as needed 5. F oley catheter present Notes: Change odom catheter monthly or as needed Monitor for urinary tract infection Catheter changed yesterday 6. O thers Notes: Continue current treatment plan. Staff to continue to monitor and report any changes. Patient education provided and questions/concerns addressed. Follow up in one week unless necessary sooner. Reviewed HIPAA Right to Privacy Practices with patient/family/caregiver. * Procedure Codes: 9 9309 NURSING FAC CARE [id number] SYST BP GE 130 - 139MM HG * Follow Up: 1 Week Billing Information: * Procedure Codes: 22867 NURSING FAC CARE SUBSEQ. 3075F SYST BP GE 130 - 139MM HG. * Sign off status: Completed true * Provider: Mauri Bullock NP Date: 08/11/2024 Generated for Shelton Granados/Moses on: 08/12/2024 09:57 AM CDT
--- OUTSIDE RECORDS SUMMARY | 2024-08-12 09:57 | XMS_ITS | Clinical Summary ---
Author Organization [facility] [employer] Address [address] [place] [address] Care Team Providers Care Survey Technician Name Role Phone Ibrahima Bird MD Primary Care Provider + Source Comments [facility] [employer],non-owned Affiliates and Associated Physician Practices is amultiple site organization consisting of ambulatory clinics and hospital sitesin [place], [place], [place] and [place]. This disclosure is being madepursuant to the Care Everywhere program and may not contain all information available regarding this patient. 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 5 Active Active Problems Problem Noted Date Diagnosed Date [...] changes -Currently psoas drain draining well, f/u [facility] for drain maintenance. -Small c [...] arthritic changes -Currently psoas drain draining well, /u [facility] for drain maintenance. -Small c [...] as above) -Currently psoas drain draining well, /[facility] for drain maintenance. Assessment & Plan [...] above) -Currently psoas drain draining well, /u [facility] for drain maintenance. Assessment & [...] above) -Currently psoas drain draining well, f/u [facility] for drain maintenance. Assessment & Plan [...] above) -Currently psoas drain draining well, f/u [facility] for drain maintenance. Assessment & Plan [...] above) -Currently psoas drain draining well, f/u [facility] for drain maintenance. Assessment & Plan [...] above) -Currently psoas drain draining well, f/u [facility] for drain maintenance. Assessment & Plan [...] above) -Currently psoas drain draining well, f/u [facility] for drain maintenance. Assessment & [...] AM CDT): -s/p Ex-lap w/ repair at [facility] -G tube in place -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, no further intervention per [facility] surgery -PPI -o/p f/u with [facility] Assessment & Plan (06/13/2024 10:04 AM CDT): -s/p Ex-lap w/ repair at [facility] -G tube in place -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, no further intervention per [facility] surgery -PPI -o/p f/u with [facility] Assessment & Plan (06/12/2024 7:55 AM CDT): -s/p Ex-lap w/ repair at [facility] -G tube in place -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, no further intervention per [facility] surgery -PPI -o/p f/u with [facility] Assessment & Plan (06/11/2024 10:18 AM CDT): -s/p Ex-lap w/ repair at [facility] -G tube in place -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, no further intervention per [facility] surgery -PPI -o/p f/u with [facility] Assessment & Plan (06/10/2024 10:08 AM CDT): -s/p Ex-lap w/ repair at [facility] -G tube in place -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, no further intervention per [facility] surgery -PPI -o/p f/u with [facility] Assessment & Plan (06/09/2024 1:40 PM CDT): -s/p Ex-lap w/ repair at [facility] -G tube in place -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, no further intervention per [facility] surgery -PPI -o/p f/u with [facility] Assessment & Plan (06/08/2024 1:56 PM CDT): -s/p Ex-lap w/ repair at [facility] -G tube in place -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, no further intervention per [facility] surgery -PPI -o/p f/u with [facility] Assessment & Plan (06/07/2024 4:46 PM CDT): -s/p Ex-lap w/ repair at [facility] -G tube in place -CT 05/22 w/ sequelae of perforation, no further intervention per [facility] surgery -PPI -o/p f/u with [facility] Assessment & Plan (06/06/2024 9:53 AM CDT): -s/p Ex-lap w/ repair at [facility] -G tube in place -CT 05/22 w/ sequelae of perforation, no further intervention per [facility] surgery PLAN -PPI -o/p f/u with [facility] -If concern for recurrent perf, will consult [facility] Assessment & Plan (06/05/2024 11:03 AM CDT): -s/p Ex-lap w/ repair at [facility] -G tube in place -CT 05/22 w/ sequelae of perforation, no further intervention per [facility] surgery PLAN -PPI -o/p f/u with [facility] -If concern for recurrent perf, will consult [facility] Assessment & Plan (06/04/2024 8:01 PM CDT): - s/p Ex-Lap with Repair at [facility] - G-tube in place, receiving Tube-Feedings - [...] to retain, odom inserted-- voiding trial with [facility] urology appt confirmed. Assessment & Plan (06/13/2024 10:04 AM CDT): -b/l Cr 1.5, Stable -voiding trial since 06/06, had to straight cath pt, he was retaining over 500, unable to void since odom removal around 0500. 700cc recorded. -continues to retain, odom inserted-- voiding trial with [facility] urology appt confirmed. Assessment & Plan (06/12/2024 7:55 AM CDT): -b/l Cr 1.5, Stable -voiding trial since 06/06, had to straight cath pt, he was retaining over 500, unable to void since odom removal around 0500. 700cc recorded. -continues to retain, odom inserted-- voiding trial with [facility] urology appt confirmed. Assessment & Plan (06/11/2024 10:18 AM CDT): -b/l Cr 1.5, Stable -voiding trial since 06/06, had to straight cath pt, he was retaining over 500, unable to void since odom removal around 0500. 700cc recorded. -continues to retain, odom inserted-- voiding trial with [facility] urology appt confirmed. Assessment & Plan (06/10/2024 [...] changes -Currently psoas drain draining well, f/u [facility] for drain maintenance. -Small c [...] above) -Currently psoas drain draining well, f/u [facility] for drain maintenance. Assessment & [...] above) -Currently psoas drain draining well, f/u [facility] for drain maintenance. Assessment & [...] above) -Currently psoas drain draining well, f/u [facility] for drain maintenance. Assessment & [...] above) -Currently psoas drain draining well, f/u [facility] for drain maintenance. Assessment & Plan [...] above) -Currently psoas drain draining well, f/u [facility] for drain maintenance. Assessment & [...] above) -Currently psoas drain draining well, f/u [facility] for drain maintenance. Assessment & [...] above) -Currently psoas drain draining well, f/u [facility] for drain maintenance. Assessment & [...] on 06/05. Can tolerate diet. Repeat MBS 5/2 no sign of dysphagia. Stopped TF. -discuss with [facility] about possible removal of PEG if no longer needed Assessment & Plan (06/13/2024 10:04 AM CDT): -Had MBS at [facility], dx with dysphagia PEG inserted, started on TF -Speech consulted, no s/s oropharyngeal dysphagia on 06/05. Can tolerate diet. Repeat MBS 5/2 no sign of dysphagia. Stopped TF. -discuss [...] MBS at [facility] -Cont TF through Gtube -[facility]CH STRAIGHTENER eval Assessment & Plan (06/05/2024 11:03 AM CDT): -Had MBS at [facility] -Cont TF through Gtube -[facility] eval Assessment & Plan (06/04/2024 8:01 PM CDT): - Seen on [facility] MBS on 05/30 - Possibly 2/2 recent intubation, Pre-vertebral/Retropharyngeal Abscess? - Pt has G-tube in place since ex-lap for gastric perforation 04/22 > Cont NPO > TF (cont Nepro from prior hospital) > Nutrition consult > TORCH STRAIGHTENER eval - ADAT (was cleared to start [...] MBS at [facility] -Cont TF through Gtube -[facility] STRAIGHT[facility] eval Assessment & Plan (06/05/2024 11:03 AM CDT): -Had MBS at [facility] -Cont TF through Gtube -[facility] STRAIGHT[facility] eval Encounters Date Type Department Care Team Description 07/28/2024 Telephone [facility] - Infectious Disease [address] [place] [phone] Thalia Pichardo PA-C Follow-up 07/26/2024 9:15 AM CDT Office Visit [facility] - Orthopedics [address] [place] [phone] Vish Antonio MD Lumbar spine pain (Primary Dx) 07/26/2024 8:34 AM CDT - 07/26/2024 11:59 PM CDT Hospital Encounter [facility] DIAGNOSTIC RAD [address] [address] [place] [address] Vish Antonio MD Discharge Disposition: Home or Self Care 07/26/2024 Travel 07/21/2024 10:30 AM CDT Office Visit [facility] - Infectious Disease [address] [place] [phone] Thalia Pichardo PA-C Psoas abscess, right (HCC) (Primary Dx); MRSA bacteremia; Osteomyelitis of lumbar spine (HCC); Septic arthritis of lumbar spine 07/21/2024 Travel 07/19/2024 5:15 PM CDT - 07/19/2024 11:59 PM CDT Hospital Encounter [facility] MRI [address] [place] [phone] Thalia Pichardo PA-C Discharge Disposition: Home or Self Care 07/19/2024 Travel 07/06/2024 Telephone [facility] - Infectious Disease [address] [place] [phone] Thalia Pichardo PA-C LABS ONLY 07/06/2024 Orders Only [facility] PH[facility]Y [address] [place] [phone] Ely Santos, PharmD 07/01/2024 Telephone [facility] - Infectious Disease [facility], [place] [phone] Thalia Pichardo PA-C Results 06/24/2024 10:30 AM CDT Office Visit [facility] - Orthopedics [address] [facility] [place] [address] Renato Dorsey MD Arthritis of both wrists (Primary Dx) 06/24/2024 Travel 06/22/2024 Telephone [facility] - Infectious Disease [address] [facility] [place] [phone] Thalia Pcihardo PA-C Results 06/04/2024 4:58 PM CDT - 06/14/2024 1:09 PM CDT Hospital Encounter [facility] [address] ACUTE [address] [place] [phone] Darion Beaver DO Kumar, Ashwath, MD Jain, Aman, DO Kent, Saida A, MD Neal, Prashanth Enrique MD Hospitalist Discharge Disposition: [facility] Facility 06/04/2024 Travel 06/04/2024 Telephone [facility] INTERNAL MED [address] [place] [phone] Darion Beaver DO Abscess from Last 3 [...] care, and heating? Not very hard 06/04/2024 PHQ-2 Answer Date Recorded Patient Health Questionnaire-2 Score 0 07/21/2024 [place] [place] [facility] - Occupational Stress [...] any time in the past [address] [facility], were you homeless or living in a correction (including now)? No 06/04/2024 Sex and Gender Information Value Date Recorded Sex Assigned at Not on file Legal Sex Male 9:29 AM [employer] Gender Identity Not on file Sexual Orientation Not on file Last Filed Vital Signs Vital Sign Reading Time Taken Comments Blood Pressure 149/80 07/21/2024 10:24 AM CDT Pulse 77 07/21/2024 10:24 AM CDT Temperature 36.5 C (97.7 F) 07/21/2024 10:24 AM CDT Respiratory Rate 18 06/14/2024 7:58 AM CDT Oxygen Saturation 96% 07/21/2024 10:24 AM CDT Inhaled Oxygen Concentration - - Weight 119.7 kg (264 lb) 06/04/2024 5:03 PM CDT Height 177.8 cm (5' 10) 07/21/2024 10:24 AM CDT Body Mass Index 37.88 06/04/2024 5:03 PM CDT Plan of Treatment Upcoming Encounters Date Type Department Care Team (Late st Contact Info) Description 08/22/2024 2:00 PM CDT Appointment [facility] Imaging Services - MRI [address] [place] [address] Thalia Pichardo PA-C [address] [place] [phone] 08/30/2024 9:30 AM CDT Office Visit [facility] - Orthopedics [address] [place] [address], [place] [phone] Vish Antonio MD [address] [place] [phone] 09/01/2024 11:30 AM CDT Office Visit [facility] - Infectious Disease [address] [place] [address], [place] [phone] Thalia Pichardo PA-C [address] [place] [phone] Health Maintenance Due Date Last Done Comments HEPATITIS C SCREENING 07/31/1965 DTAP/TDAP/TD VACCINES (1 - Tdap) 08/04/1966 PNEUMOCOCCAL VACCINE 50+ (1 of 1 - PCV) 08/04/1997 ZOSTER VACCINE (1 of 2) 08/04/1997 Respiratory Syncytial Virus (RSV) Vaccine Pt: or over 60 yrs (1 - 1-dose 75+ series) 08/04/2022 COVID-19 VACCINE ( season) 2023 06/07/2021, 11/30/2020, 04/24/2020, Additional history exists MEDICARE AWV CALENDAR YEAR 2024 INFLUENZA VACCINE (#1) 2024 , 11/25/2022, 12/13/2021, Additional history exists DEPRESSION SCREENING Completed 07/21/2024 HEPATITIS B VACCINE Aged Out No longe [...] Procedure Name Priority Date/Time Associated Diagnosis Comments LAB RESULTS ORDER 08/10/2024 LAB RESULTS ORDER 07/28/2024 XR LUMBAR SPINE 2 OR 3VW Routine 07/26/2024 9:17 AM CDT Lumbar spine pain MRI LUMBAR SPINE WWO CONTRAST Routine 07/19/2024 6:05 PM CDT MRSA bacteremia Psoas abscess, right (HCC) Acute osteomyelitis of lumbar spine (HCC) LAB RESULTS ORDER 07/13/2024 RENAL FUNCTION PANEL AM Draw 06/14/2024 6:22 [...] Draw 06/05/2024 9: 14 AM CDT PT-INR [facility] Routine 06/05/2024 9:14 AM CDT PHOSPHORUS BLOOD [...] (HCC) from Last 3 Months Results * LAB RESULTS ORDER (08/10/2024) Only the most recent of3 resultswithin the time period is included. 08/10/2024 Narrative 08/10/2024 Ordered by an unspecified provider. us Scanned Document LAB - THERAPEUTIC DRUG MONITORI NG ORDERABLES Final Result * XR Lumbar Spine 2 or 3Vw (07/26/2024 9:17 AM CDT) Only the most recent of2 resultswithin the time period is included. Anatomical Region Laterality Modality Spine Computed Radiogr aphy 07/26/2024 9:49 AM CDT Impressions 07/26/2024 9:51 AM CDT IMPRESSION: Moderate to severe lumbar spondylosis. > Interpreting Provider: Kevin Kim MD on 07/26/2024 9:51 AM Narrative 07/26/2024 9:51 AM CDT PROCEDURE: XR LUMBAR SPINE 2 OR 3VW DATE/TIME OF EXAM: 07/26/2024 9:17 AM CLINICAL INFORMATION: None relevant/not provided if blank. Indication: M54.50: Lumbar spine pain Additional History: COMPARISON: 06/08/2024 FINDINGS: There is dextroscoliosis of the lower thoracic and upper lumbar spine and levoscoliosis of the lower lumbar spine. There is grade 1 anterolisthesis at L4-5. There is moderate to severe multilevel degenerative disc and joint disease. No fracture is seen. A pigtail catheter projects over the right lower quadrant, unchanged. Procedure Note Kevin Kim MD - 07/26/2024 PROCEDURE: XR LUMBAR SPINE 2 OR 3VW DATE/TIME OF EXAM: 07/26/2024 9:17 AM CLINICAL INFORMATION: None relevant/not provided if blank. Indication: M54.50: Lumbar spine pain Additional History: COMPARISON: 06/08/2024 FINDINGS: There is dextroscoliosis of the lower thoracic and upper lumbar spineand levoscoliosis of the lower lumbar spine. There is grade 1anterolisthesis at L4-5. There is moderate to severe multilevel degenerative disc andjoint disease. No fracture is seen. A pigtail catheter projects over the right lower quadrant, unchanged. IMPRESSION: Moderate to severe lumbar spondylosis. > Interpreting Provider: Kevin Kim MD on 07/26/2024 9:51 AM Vish Antonio MD DIAGNOSTIC IMAGING ORDERABLES Fi nal Result * MRI Lumbar Spine Wwo Contrast (07/19/2024 6:05 PM CDT) Only the most recent of2 resultswithin the time period is included. Anatomical Region Laterality Modality Spine Magnetic Resonan ce 07/29/2024 1:12 PM CDT Impressions 07/29/2024 4:55 PM CDT IMPRESSION: Please note that study is limited secondary to artifact/technique. 1.Interval decrease in size rim-enhancing fluid collection within the inferior right psoas muscle approximately measuring 4.8 x 3.4 cm, previously measured 5 x 6.1 cm when measured in a similar fashion.. Please note that this collection is partially visualized on this study, CT abdomen pelvis with contrast is more sensitive for evaluation of the residual abscess. 2.Interval increase in the enhancement and edema along the disc spaces through the levels of L2-L3 L3-L4 and L4-L5 compared to prior study. There is also mild interval increase in the edema and enhancement along the facet joints on the right side at the level of L3-L4 and L4-L5.No evidence of adjacent epidural collections or prevertebral soft tissue collections. These findings could be secondary to progressive degenerative changes versus findings more prominent on today's study secondary to differences in technique. However acute early osteomyelitis cannot be excluded, clinical correlation is recommended. 3.Unchanged chronic degenerative changes of the spine with severe central canal stenosis at the level of L3-L4 and L4-L5. The report is dictated by Fitz Roque MD, (Cane Piler) I, Luci Marques MD have personally reviewed and interpreted this examination/study. > Interpreting Provider: Luci Marques MD on 07/29/2024 4:55 PM Narrative 07/29/2024 4:55 PM CDT PROCEDURE: MRI LUMBAR SPINE WWO CONTRAST, DATE/TIME OF EXAM: 07/19/2024 6:06 PM, LOCATION [facility] INDICATION: R78.81: MRSA bacteremia B95.62: MRSA bacteremia K68.12: Psoas abscess, right (HCC) M46.26: Acute osteomyelitis of lumbar spine (HCC) ADDITIONAL CLINICAL INFORMATION: Ordering Provider Reason For Exam: Patient with right psoas abscess on prolonged IV antibiotic therapy, please evaluate EXAMINATION: Magnetic resonance imaging (MRI) of the lumbar spine without and with contrast TECHNIQUE: MRI of the lumbar spine was performed prior to and following the uneventful administration of [' mL Gadavist intravenous contrast according to standard protocol. CONTRAST: GADOBUTROL 1 MMOL/ML IV SSM SO:10 mL Comparison is made with a study from MRI of lumbar spine 06/05/2024 FINDINGS: Evaluation limited by artifact from patient's body habitus/technique. *Interval decrease in size rim-enhancing fluid collection within the right lower size musculature at the level of L4-L5, measuring approximately 4.2 x 3.8 cm with heterogeneous enhancement,, previously measured 5 x 6.1 cm cm. Pigtail drainage catheter is in place. Interval decrease in the size of right iliopsoas musculature compared to the prior study. Accurate evaluation of the size of the residual abscess is limited on this study. *Interval increase in the enhancement and edema along the disc spaces at the levels of L2-L3 L3-4 and L4-L5 compared to prior study. No adjacent fluid collections noted within the limits of the study. No epidural fluid collections noted.. * There is also increased enhancement at the at the level of L3-L4 and L4-L5 facet joints predominantly in the right side.. These findings are slightly more prominent compared to prior study could be secondary to differences in technique. Mild retrolisthesis of L3 on L4 and L5 on S1. Grade 1 anterolisthesis of L4 on L5 unchanged compared to prior study. Levocurvature of the spine at the level of L3-L4. Vertebral bodies are normal in height without evidence of acute fracture. Other than severe degenerative endplate changes at multiple levels, the bone marrow signal is normal. The conus medullaris terminates at the level of L1. Limited evaluation of the distal spinal cord signal. Mild interval increase in the height loss at the L2-L3 L3-L4 and L4-L5 disc spaces. Unchanged severe central canal stenosis at the levels of L3-L4 and L4-L5 secondary to ligamentum flavum hypertrophy and posterior disc osteophyte complexes. Mild to moderate central canal stenosis at other levels.. Moderate to severe facet arthropathy at the level of L4-L5. Moderate facet arthropathy at other levels. Severe right-sided neural foramina stenosis at the level of L3-L4 and L4-L5 and on the left-sided the level of L3-L4 and L2-L3. Moderate neural foramina stenosis at other levels. Procedure Note Luci Marques MD - 06/20/2025 PROCEDURE: MRI LUMBAR SPINE WWO CONTRAST, DATE/TIME OF EXAM: 07/19/2024 6:06 PM, LOCATION [facility] INDICATION: R78.81: MRSA bacteremia B95.62: MRSA bacteremia K68.12: Psoas abscess, right (HCC) M46.26: Acute osteomyelitis of lumbar spine (HCC) ADDITIONAL CLINICAL INFORMATION: Ordering Provider Reason For Exam: Patient with right psoas abscess on prolonged IV antibiotic therapy, please evaluate EXAMINATION: Magnetic resonance imaging (MRI) of the lumbar spinewithout and with contrast TECHNIQUE: MRI of the lumbar spine was performed prior to and followingthe uneventful administration of [' mL Gadavist intravenous contrastaccording to standard protocol. CONTRAST: GADOBUTROL 1 MMOL/ML IV SSM SO:10 mL Comparison is made with a study from MRI of lumbar spine 06/05/2024 FINDINGS: Evaluation limited by artifact from patient's body habitus/technique. *Interval decrease in size rim-enhancing fluid collection within theright lower size musculature at the level of L4-L5, measuring approximately 4.2x 3.8 cm with heterogeneous enhancement,, previously measured 5 x 6.1 cmcm. Pigtail drainage catheter is in place. Interval decrease in the size of right iliopsoas musculature compared to the prior study. Accurate evaluation of the size of the residual abscess is limited on this study. *Interval increase in the enhancement and edema along the disc spaces at the levels of L2-L3 L3-4 and L4-L5 compared to prior study. No adjacent fluid collections noted within the limits of the study. No epiduralfluid collections noted.. * There is also increased enhancement at the at the level of L3-L4 and L4-L5 facet joints predominantly in the right side.. These findings are slightly more prominent compared to prior study could be secondary to differences in technique. Mild retrolisthesis of L3 on L4 and L5 on S1. Grade 1 anterolisthesis ofL4 on L5 unchanged compared to prior study. Levocurvature of the spine atthe level of L3-L4. Vertebral bodies are normal in height without evidenceof acute fracture. Other than severe degenerative endplate changes atmultiple levels, the bone marrow signal is normal. The conus medullaristerminates at the level of L1. Limited evaluation of the distal spinal cord signal. Mild interval increase in the height loss at the L2-L3 L3-L4 and L4-L5disc spaces. Unchanged severe central canal stenosis at the levels of L3-L4 and L4-L5 secondary to ligamentum flavum hypertrophy and posterior disc osteophyte complexes. Mild to moderate central canal stenosis at other levels.. Moderate to severe facet arthropathy at the level of L4-L5. Moderatefacet arthropathy at other levels. Severe right-sided neural foramina stenosisat the level of L3-L4 and L4-L5 and on the left-sided the level of L3-L4and L2-L3. Moderate neural foramina stenosis at other levels. IMPRESSION: Please note that study is limited secondary to artifact/technique. 1.Interval decrease in size rim-enhancing fluid collection within the inferior right psoas muscle approximately measuring 4.8 x 3.4 cm, previously measured 5 x 6.1 cm when measured in a similar fashion..Please note that this collection is partially visualized on this study, CTabdomen pelvis with contrast is more sensitive for evaluation of the residual abscess. 2.Interval increase in the enhancement and edema along the disc spaces through the levels of L2-L3 L3-L4 and L4-L5 compared to prior study.There is also mild interval increase in the edema and enhancement along thefacet joints on the right side at the level of L3-L4 and L4-L5.No evidence of adjacent epidural collections or prevertebral soft tissue collections. These findings could be secondary to progressive degenerative changes versus findings more prominent on today's study secondary to differencesin technique. However acute early osteomyelitis cannot be excluded,clinical correlation is recommended. 3.Unchanged chronic degenerative changes of the spine with severecentral canal stenosis at the level of L3-L4 and L4-L5. The report is dictated by Fitz Roque MD, (Cane Piler) I, Luci Marques MD have personally reviewed and interpreted this examination/study. > Interpreting Provider: Luci Maqrues MD on 07/29/2024 4:55 PM us Thalia Pichardo PA-C MR ORDERABLES Final Result * (ABNORMAL) RENAL FUNCTION PANEL (06/14/2024 6:22 AM CDT) Only the most recent of5 resultswithin the time period is included. BUN 19 7 - 26 mg/dL 06/14/2024 7:04 AM [facility] [facility] Creatinine 1.22(H) 0.71 - 1.16 mg/dL 06/14/2024 7:04 AM [facility] Sodium 134(L) 136 - 145 mmol/L 06/14/2024 7:04 AM [facility] Potassium 4.7(H) 3.5 - 4.5 mmol/L 06/14/2024 7:04 AM [facility] Chloride 102 98 - 107 mmol/L 06/14/2024 7:04 AM [facility] CO2 23 22 - 29 mmol/L 06/14/2024 7:04 AM [facility] Glucose 99 70 - 99 mg/dL 06/14/2024 7:04 AM [facility] Albumin 2.1(L) 3.4 - 5.0 g/dL 06/14/2024 7:04 AM [facility] Calcium 8.0(L) 8.4 - 10.2 mg/dL 06/14/2024 7:04 AM [facility] Phosphorus 3.9 2.8 - 5.1 mg/dL 06/14/2024 7:04 AM [facility] Anion Gap 9 6 - 16 06/14/2024 7:04 AM [facility] BUN/Creatinine Ratio 16 7 - 23 06/14/2024 7:04 AM [facility] Osmolality Calculated 280 275 - 295 mOsm/kg 06/14/2024 7:04 AM [facility] eGFR by CKD-EPI 61(L) >=90 mL/min/1.7 3 m2 06/14/2024 7:04 AM [facility] Blood BLOOD SPECIMEN / Unknown Venipuncture / Unknown 06/14/2024 6:22 AM T 06/14/2024 6:39 AM [facility] us Darlene Sears MD LAB - CHEMISTRY ORDERABLES Final Result [facility] [address] [place] [address], [facility] [phone] * MAGNESIUM BLOOD (06/11/2024 11:52 AM CDT) Only the most recent of5 resultswithin the time period is included. Magnesium 1.8 1.6 - 2.6 mg/dL 06/11/2024 12:31 PM [facility] Blood BLOOD SPECIMEN / Unknown Lab Venipuncture / Unknown 06/11/2024 11:52 AM CDT 06/11/2024 12:05 PM CDT us Darlene Sears MD LAB - CHEMISTRY ORDERABLES Final Result [facility] [address] [place] [phone], [facility] [phone] * (ABNORMAL) CBC W/O DIFFERENTIAL (06/11/2024 11:51 AM CDT) Only the most recent of2 resultswithin the time period is included. Pathologist [facility] [place] WBC 7.2 4.0 - 10.7 x10E9/L 06/11/2024 12:12 PM [facility] RBC Count 3.33(L) 4.30 - 5.80 x10E12/L 06/11/2024 12:12 PM [facility] Hemoglobin 9.8(L) 13.3 - 17.5 g/dL 06/11/2024 12:12 PM [facility] Hematocrit 31.3(L) 38.7 - 51.1 % 06/11/2024 12:12 PM [facility] MCV 94.0 80.0 - 98.0 fL 06/11/2024 12:12 PM [facility] MCH 29.4 26.7 - 33.6 pg 06/11/2024 12:12 PM [facility] MCHC 31.3(L) 31.7 - 36.3 g/dL 06/11/2024 12:12 PM [facility] RDW-CV 15.9(H) 11.3 - 14.8 % 06/11/2024 12:12 PM [facility] Platelet Count 309 150 - 420 x10E9/L 06/11/2024 12:12 PM CDT [facility] MPV 11.3 7.8 - 11.4 fL 06/11/2024 12:12 PM CDT [facility] Blood BLOOD SPECIMEN / Unknown Lab Venipuncture / Unknown 06/11/2024 11:51 AM CDT 06/11/2024 12:05 PM CDT Darlene Sears MD LAB - HEMATOLOGY ORDERABLES Collette l Result Performing Organization Address [facility] Co de Phone Number [address] [phone], [facility] [phone] * VANCOMYCIN LEVEL TROUGH (06/11/2024 11:51 AM CDT) Only the most recent of2 resultswithin the time period is included. Vancomycin Trough 14.8 10.0 - 20.0 ug/mL 06/11/2024 12:35 PM CDT [facility] Blood BLOOD SPECIMEN / Unknown Lab Venipuncture / Unknown 06/11/2024 11:51 AM CDT 06/11/2024 11:59 AM CDT Narrative [facility] - 06/11/2024 12:35 PM CDT See institution protocol. us Darlene Sears MD LAB - CHEMISTRY ORDERABLES Final Result Performing Organization Address [facility] de Phone Number [address] [phone], [facility] [phone] * (ABNORMAL) BASIC METABOLIC PANEL (CALCIUM TOTAL) (06/10/2024 2:07 PM CDT) Only the most recent of2 resultswithin the time period is included. BUN 28(H) 7 - 26 mg/dL 06/10/2024 2:51 PM CDT [facility] Creatinine 1.21(H) 0.71 - 1.16 mg/dL 06/10/2024 2:51 PM CDT [facility] Sodium 134(L) 136 - 145 mmol/L 06/10/2024 2:51 PM CDT [facility] Potassium 4.7(H) 3.5 - 4.5 mmol/L 06/10/2024 2:51 PM T [facility] Chloride 103 98 - 107 mmol/L 06/10/2024 2:51 PM T [facility] CO2 27 22 - 29 mmol/L 06/10/2024 2:51 PM T [facility] Glucose 107(H) 70 - 99 mg/dL 06/10/2024 2:51 PM T [facility] Calcium 8.2(L) 8.4 - 10.2 mg/dL 06/10/2024 2:51 PM T [facility] Anion Gap 4(L) 6 - 16 06/10/2024 2:51 PM [facility] BUN/Creatinine Ratio 23 7 - 23 06/10/2024 2:51 PM T [facility] Osmolality Calculated 284 275 - 295 mOsm/kg 06/10/2024 2:51 PM [facility] eGFR by CKD-EPI 62(L) >=90 mL/min/1.7 3 m2 06/10/2024 2:51 PM [facility] Blood BLOOD SPECIMEN / Unknown Venipuncture / Unknown 06/10/2024 2:07 PM CDT 06/10/2024 2:17 PM CDT us Darlene Sears MD LAB - CHEMISTRY ORDERABLES Final Result [facility] [address] [place] [phone], [facility] [phone] * (ABNORMAL) VANCOMYCIN LEVEL PEAK (06/10/2024 2:07 PM CDT) Only the most recent of2 resultswithin the time period is included. Vancomycin Peak 24.8(L) 25.0 - 40.0 ug/mL 06/10/2024 2:42 PM T [facility] Blood BLOOD SPECIMEN / Unknown Venipuncture / Unknown 06/10/2024 2:07 PM CDT 06/10/2024 2:16 PM CDT Narrative [facility] - 06/10/2024 2:42 PM CDT See institution protocol. Data does not support the use of vancomycin peak concentration for efficacy. us Darlene Sears MD LAB - CHEMISTRY ORDERABLES Final Result [address] [address], [facility] [phone] * FL SWALLOWING FUNCTION STUDY (06/09/2024 8:58 [...] (ka,r). Report dictated by Fitz Roque MD, (Cane Piler). Ishaan Pérez MD have personally reviewed and [...] (ka,r). Report dictated by Fitz Roque MD, (Cane Piler). I, Ishaan Blancas MD have personally reviewed and interpreted this [...] 06/09/2024 8:47 AM CDT [facility] Blood BLOOD SPECIMEN / Unknown Lab Venipuncture / Unknown 06/09/2024 7:45 AM CDT 06/09/2024 7:55 AM CDT Narrative [facility] - 06/09/2024 8:47 AM CDT See institution protocol. us Darlene Sears MD LAB - CHEMISTRY ORDERABLES Final Result Performing Organization Address City/State/[facility] de Phone Number [facility] [address] [place] [phone], [facility] [phone] * IR Picc Line Insert (06/08/2024 5:03 [...] perforated appendicitis who presented as transfer from [facility] for MRSA bacteremia, complicated by spinal abscess and need a higher level of care Indication: IV antibiotic therapy Supervisor Instrument Maintenance: Raymond Palm RN MI- Procedures: 1. Limited extremity ultrasound to assess vascular patency 2. Ultrasound guided access of the Right brachial vein. 3. Placement of peripherally inserted central line with magnetic tracking and ECG tip positioning system ([employer]). Anesthesia: Local anesthesia with 4mL of 1% [...] magnetic tracking and ECG tip positioning system ([employer]), The peel-away sheath was removed, and the [...] cavo-atrial junction. The procedure was performed by KELBY Murillo-. The final image was reviewed by , Interventional Radiology Attending- IR Attending: Chandni Mathis MD The catheter can be used now. us Darlene Sears MD IR ORDERABLES Final Result * (ABNORMAL) CBC W AUTO DIFFERENTIAL (06/07/2024 7:06 AM [facility]) Only the most recent of3 resultswithin the time period is included. WBC 7.8 4.0 - 10.7 x10E9/L 06/07/2024 7:43 AM [facility] RBC Count 3.05(L) 4.30 - 5.80 x10E12/L 06/07/2024 7:43 AM [facility] Hemoglobin 9.2(L) 13.3 - 17.5 g/dL 06/07/2024 7:43 AM [facility] Hematocrit 28.6(L) 38.7 - 51.1 % 06/07/2024 7:43 AM [facility] MCV 93.8 80.0 - 98.0 fL 06/07/2024 7:43 AM [facility] MCH 30.2 26.7 - 33.6 pg 06/07/2024 7:43 AM [facility] MCHC 32.2 31.7 - 36.3 g/dL 06/07/2024 7:43 AM [facility] RDW-CV 17.2(H) 11.3 - 14.8 % 06/07/2024 7:43 AM [facility] Platelet Count 295 150 - 420 x10E9/L 06/07/2024 7:43 AM [facility] MPV 12.0(H) 7.8 - 11.4 fL 06/07/2024 7:43 AM [facility] Neutrophil % 52.0 41.0 - 74.0 % 06/07/2024 7:43 AM [facility] Lymphocyte % 28.9 17.0 - 47.0 % 06/07/2024 7:43 AM [facility] Monocyte % 10.2 3.0 - 11.0 % 06/07/2024 7:43 AM [facility] Eosinophil % 7.5(H) 0.0 - 7.0 % 06/07/2024 7:43 AM [facility] Basophil % 0.6 0.0 - 1.6 % 06/07/2024 7:43 AM [facility] Immature Granulocytes % 0.8 0.0 - 1.0 % 06/07/2024 7:43 AM [facility] Neutrophil Absolute 4.05 1.60 - 7.50 x10E9/L 06/07/2024 7:43 AM [facility] Lymphocyte Absolute 2.25 1.00 - 4.40 x10E9/L 06/07/2024 7:43 AM [facility] Monocyte Absolute 0.79 0.15 - 1.00 x10E9/L 06/07/2024 7:43 AM [facility] Eosinophil Absolute 0.58 0.00 - 0.60 x10E9/L 06/07/2024 7:43 AM [facility] Basophil Absolute 0.05 0.00 - 0.13 x10E9/L 06/07/2024 7:43 AM [facility] Blood BLOOD SPECIMEN / Unknown Lab Venipuncture / Unknown 06/07/2024 7:06 AM CDT 06/07/2024 7:34 AM CDT us Danilo Don DO LAB - HEMATOLOGY ORDERABLES Collette l Result Performing Organization Address [facility]/State/ZIP Co de Phone Number [facility] [address] [place] [phone], [facility] [phone] * (ABNORMAL) COMPREHENSIVE METABOLIC PANEL (06/07/2024 7:06 AM CDT) Only the most recent of3 resultswithin the time period is included. BUN 43(H) 7 - 26 mg/dL 06/07/2024 8:03 AM [facility] Creatinine 1.51(H) 0.71 - 1.16 mg/dL 06/07/2024 8:03 AM [facility] Sodium 138 136 - 145 mmol/L 06/07/2024 8:03 AM [facility] Potassium 4.2 3.5 - 4.5 mmol/L 06/07/2024 8:03 AM [facility] Chloride 103 98 - 107 mmol/L 06/07/2024 8:03 AM [facility] CO2 23 22 - 29 mmol/L 06/07/2024 8:03 AM [facility] Glucose 99 70 - 99 mg/dL 06/07/2024 8:03 AM [facility] Calcium 8.3(L) 8.4 - 10.2 mg/dL 06/07/2024 8:03 AM [facility] Protein Total 6.8 6.0 - 8.3 g/dL 06/07/2024 8:03 AM [facility] Albumin 2.4(L) 3.4 - 5.0 g/dL 06/07/2024 8:03 AM [facility] Bilirubin Total 0.4 0.2 - 1.2 mg/dL 06/07/2024 8:03 AM [facility] Alkaline Phosphatase 89 40 - 150 U/L 06/07/2024 8:03 AM [facility] ALT 11 5 - 55 U/L 06/07/2024 8:03 AM [facility] AST 20 5 - 34 U/L 06/07/2024 8:03 AM [facility] Anion Gap 12 6 - 16 06/07/2024 8:03 AM [facility] BUN/Creatinine Ratio 28(H) 7 - 23 06/07/2024 8:03 AM [facility] Osmolality Calculated 297(H) 275 - 295 mOsm/kg 06/07/2024 8:03 AM [facility] Albumin/Globulin Ratio 0.5(L) 1.1 - 2.3 06/07/2024 8:03 AM [facility] eGFR by CKD-EPI 48(L) >=90 mL/min/1.7 3 m2 06/07/2024 8:03 AM [facility] Blood BLOOD SPECIMEN / Unknown Lab Venipuncture / Unknown 06/07/2024 7:06 AM CDT 06/07/2024 7:33 AM [facility] us Danilo Don DO LAB - CHEMISTRY ORDERABLES Final Result Performing Organization Address City/[facility]/ZIP Co de Phone Number [facility] [address] [place] [address], [place] [phone] * PHOSPHORUS BLOOD (06/07/2024 7:06 AM CDT) Only the most recent of3 resultswithin the time period is included. Phosphorus 3.9 2.8 - 5.1 mg/dL 06/07/2024 8:03 AM CDT [facility] Blood BLOOD SPECIMEN / Unknown Lab Venipuncture / Unknown 06/07/2024 7:06 AM CDT 06/07/2024 7:33 AM CDT [employer] LAB - CHEMISTRY ORDERABLES Final Result Performing Organization Address [facility] Co de Phone Number [facility] [address] [place] [phone], [facility] [phone] * XR Knee Left 2Vw or Less [...] Henderson MD on 06/07/2024 12:35 AM Gretchen Dye Jadyn SUPERIOR COURT CLERK-WORLD HISTORY TEACHER DIAGNOSTIC IMAGING ORDE RABLES Final Result * [...] - 7.2 mg/dL 06/06/2024 7:17 AM CDT [facility] Blood BLOOD SPECIMEN / Unknown Venipuncture / Unknown 06/06/2024 6:48 AM CDT 06/06/2024 6:53 AM CDT Danilo Don DO LAB - CHEMISTRY ORDERABLES Final Result [address] [address], [facility] [phone] * XR Wrist Left 3Vw or More (06/06/2024 6:24 AM CDT) Anatomical Region Laterality Modality Wrist / Hand Digital Radiogra phy 06/06/2024 7:36 AM CDT Narrative 06/06/2024 8:30 AM CDT PROCEDURE: XR WRIST LEFT 3VW OR MORE, DATE/TIME OF EXAM: 06/06/2024 6:43 AM, LOCATION [facility] INDICATION: M25.531: Pain in both wrists M25.532: [...] CT. Report dictated by Fitz Roque MD, (Cane Piler). Chantel Pérez MD have personally reviewed and interpreted this examination/study. > Interpreting Provider: Chantel Ga MD on 06/06/2024 8:30 AM Procedure Note Chantel Ga MD - 06/06/2024 PROCEDURE: XR WRIST LEFT 3VW OR MORE, DATE/TIME OF EXAM: 56:43 AM, LOCATION [facility] INDICATION: M25.531: Pain in both wrists M25.532: [...] CT. Report dictated by Fitz Roque MD, (Cane Piler). Chantel Pérez MD have personally reviewed and [...] arthritis. Report dictated by Danilo Angel MD (radiology teacher). Chantel Pérez MD have personally reviewed and interpreted this examination/study. > Interpreting Provider: Chantel Ga MD on 06/06/2024 8:42 AM Narrative 06/06/2024 8:42 AM CDT PROCEDURE: XR WRIST RIGHT 3VW OR MORE, DATE/TIME OF EXAM: 06/06/2024 6:42 AM, LOCATION [facility] INDICATION: M25.531: Pain in both wrists M25.532: [...] MORE, DATE/TIME OF EXAM: 56:42 AM, LOCATION [facility] INDICATION: M25.531: Pain in both wrists M25.532: [...] arthritis. Report dictated by Danilo Angel MD (radiology teacher). Chantel Pérez MD have personally reviewed and interpreted this examination/study. > Interpreting Provider: Chantel Ga MD on 06/06/2024 8:42 AM us Danilo Don DO DIAGNOSTIC IMAGING [...] DATE/TIME OF EXAM: 06/05/2024 6:08 PM, LOCATION [facility] INDICATION:G06.1: Abscess in epidural space of cervical [...] CONTRAST,DATE/TIME OF EXAM: 06/05/2024 6:08 PM, LOCATION [facility] INDICATION:G06.1: Abscess in epidural space of cervical [...] MD on 06/06/2024 8:03 AM us Danilo Dno DO CT ORDERABLES Final Result * CT [...] DATE/TIME OF EXAM: 06/05/2024 6:08 PM, LOCATION [facility] INDICATION:G06.1: Abscess in epidural space of cervical [...] CONTRAST,DATE/TIME OF EXAM: 06/05/2024 6:08 PM, LOCATION [facility] INDICATION:G06.1: Abscess in epidural space of cervical spine ([facility]) R78.81: MRSA bacteremia B95.62: MRSA bacteremia ADDITIONAL [...] MD on 06/06/2024 8:03 AM us Danilo Alonzoin DO CT ORDERABLES Final Result * CT [...] DATE/TIME OF EXAM: 06/05/2024 6:08 PM, LOCATION [facility] INDICATION: 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 Additional: Pt presented to [facility] hospital on 04/22 complaining of [...] Given patient's vulnerable GI track, Cardiology at [facility] did not feel comfortable performing [...] then narrowed to IV Vancomycin for MRSA. [facility] did not have ID and Spine Surgery available, so patient transferred to [facility] for further care. 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 Additional: Pt presented to [facility] hospital on 04/22 complaining ofabdominal [...] disease. Given patient'svulnerable GI track, Cardiology at [facility] did not feel comfortable performing [...] PNA) then narrowed to IV Vancomycin for MRSA.[facility] did not have ID and Spine Surgery available, so patient transferred [facility] for further care. 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 Additional: Pt presented to [facility] on 04/22 complaining of abdominal pain, hypotensive [...] Given patient's vulnerable GI track, Cardiology at [facility] did not feel comfortable performing [...] then narrowed to IV Vancomycin for MRSA. [facility] did not have ID and Spine Surgery available, so patient transferred to [facility] for further care. 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 Additional: Pt presented to [facility] hospital on 04/22 complaining ofabdominal [...] PNA) then narrowed to IV Vancomycin for MRSA.[facility] did not have ID and Spine Surgery available, so patient transferred [facility] for further care. 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 Additional: Pt presented to [facility] on 3/14 complaining of abdominal pain, hypotensive and tachycardic. [...] Given patient's vulnerable GI track, Cardiology at [facility] did not feel comfortable performing EMPERATRIZ (given [...] then narrowed to IV Vancomycin for MRSA. [facility] did not have ID and Spine Surgery available, so patient transferred to [facility] for further care. 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 Additional: Pt presented to [facility] hospital on 04/22 complaining ofabdominal [...] disease. Given patient'svulnerable GI track, Cardiology at [facility] did not feel comfortable performing [...] PNA) then narrowed to IV Vancomycin for MRSA.[facility] did not have ID and Spine Surgery available, so patient transferred [facility] for further care. TECHNIQUE: CT of the [...] DO CT ORDERABLES Final Result * MRI Thoracic Spine [...] report is dictated by Evan Ornelas DO, (radiology teacher) > Dictated by Evan Ornelas DO (Cane Piler) 06/06/2024 9:39 AM ILavon MD have personally reviewed and interpreted this examination/study. > Interpreting Provider: Lavon Giron MD on 06/06/2024 1:32 PM Narrative 06/06/2024 1:32 PM CDT PROCEDURE: MRI CERVICAL SPINE WWO CONT, MRI LUMBAR SPINE WWO CONTRAST, MRI THORACIC SPINE WWO CONT, DATE/TIME OF EXAM: 06/05/2024 5:37 PM, LOCATION [facility] INDICATION: G06.1: Abscess in epidural space [...] subarticular disc protrusion at T10-11 resulting in ervk-vt-wumrzyut spinal canal stenosis. There are varying degrees [...] DATE/TIME OF EXAM: 06/05/2024 5:37 PM, LOCATION [facility] INDICATION: G06.1: Abscess in epidural space [...] subarticular disc protrusion at T10-11 resulting in wnek-ze-fkrzopyf spinal canalstenosis. There are varying degrees of [...] The report is dictated by Evan Ornelas DO (radiology teacher) > Dictated by Evan Ornelas DO (Cane Piler) 06/06/2024 9:39 AM Lavon Pérez MD have personally reviewed and interpretedthis examination/study. > Interpreting Provider: Lavon Giron MD on 06/06/2024 1:32 PM Danilo Arian MR ORDERABLES Final Result * MRI Cervical [...] The report is dictated by Evan Ornelas DO (radiology teacher) > Dictated by Evan Ornelas DO (Cane Piler) 06/06/2024 9:39 AM Lavon Pérez MD have personally reviewed and interpreted this examination/study. > Interpreting Provider: Lavon Giron MD on 06/06/2024 1:32 PM Narrative 06/06/2024 1:32 PM CDT PROCEDURE: MRI CERVICAL SPINE WWO CONT, MRI LUMBAR SPINE WWO CONTRAST, MRI THORACIC SPINE WWO CONT, DATE/TIME OF EXAM: 06/05/2024 5:37 PM, LOCATION [facility] INDICATION: G06.1: Abscess in epidural space [...] subarticular disc protrusion at T10-11 resulting in aixx-mj-hxwnkafl spinal canal stenosis. There are varying degrees [...] DATE/TIME OF EXAM: 06/05/2024 5:37 PM, LOCATION [facility] INDICATION: G06.1: Abscess in epidural space [...] subarticular disc protrusion at T10-11 resulting in yzei-zt-hxcbaicd spinal canalstenosis. There are varying degrees of [...] report is dictated by Evan Ornelas DO, (radiology teacher) > Dictated by Evan Ornelas DO (Cane Piler) 06/06/2024 9:39 AM ILavon MD have personally reviewed and interpretedthis examination/study. > Interpreting Provider: Lavon Giron MD on 06/06/2024 1:32 PM Danilo Don DO MR ORDERABLES Final Result * PT-INR [facility] (06/05/2024 9:14 AM CDT) PT 14.8 12.1 - 14.8 Seconds 06/05/2024 9:38 AM CDT [facility] LABORATORY [facility] INR 1.1 See Comment 06/05/2024 9:38 AM CDT [facility] Comment:The suggested therap eutic range for standard coumadin (warfarin) therapy is an INR of 2.0-3.0. For high-risk patients (Mechanical Mitral Valve Prosthesis, etc.), the suggested prophylactic therapeutic range is an INR of 2.5-3.5. Blood BLOOD SPECIMEN / Unknown Lab Venipuncture / Unknown 06/05/2024 9:14 AM CDT 06/05/2024 9:24 AM CDT Asmita Pearson MD LAB - COAGULATION ORDERABLES Fi nal Result [facility] [address] [place] [phone], [facility] [phone] * (ABNORMAL) C-REACTIVE PROTEIN (06/05/2024 9:14 AM CDT) C-Reactive Protein 3.0(H) <=0.5 mg/dL 06/05/2024 9:49 AM CDT [facility] Blood BLOOD SPECIMEN / Unknown Lab Venipuncture / Unknown 06/05/2024 9:14 AM CDT 06/05/2024 9:24 AM CDT Asmita Pearson MD LAB - CHEMISTRY ORDERABLES Collette l Result Performing Organization Address [facility] Co de Phone Number [facility] [address] [place] [address], [place] [phone] * CULTURE BLOOD (06/05/2024 9:14 AM CDT) Only the most recent of2 resultswithin the time period is included. Pathologist [facility] [place] Culture No growth day 5 [place] 06/10/2024 1:00 PM CDT [facility] Blood PERIPHERAL BLOOD / Unknown Lab Venipuncture / Unknown 06/05/2024 9:14 AM CDT 06/05/2024 9:23 AM CDT Asmita Pearson MD LAB - MICROBIOLOGY ORDERABLES F inal Result Performing Organization Address [facility] de Phone Number [facility] [address] [place] [address], [facility] [phone] * (ABNORMAL) ERYTHROCYTE SEDIMENTATION RATE (06/05/2024 9:13 AM CDT) [facility] Erythrocyte Sedimentation Rate Westergren 125(H) 0 - 20 MM/HR 06/05/2024 9:58 AM CDT [facility] Blood BLOOD SPECIMEN / Unknown Lab Venipuncture / Unknown 06/05/2024 9:13 AM CDT 06/05/2024 9:24 AM CDT Asmita Pearson MD LAB - HEMATOLOGY ORDERABLES Fin al Result Performing Organization Address [facility] Co de Phone Number [facility] [address] [place] [id number], [place] [phone] * EKG 12-LEAD (06/04/2024 6:53 PM CDT) Pathologist [facility] Ventricular Rate 70 BPM [facility] Atrial Rate 70 BPM [facility] P-R Interval 158 ms [facility] QRS Duration ms 90 ms [facility] Q-T Interval ms 418 ms [facility] QTC Calculation (Bezet) 451 ms [facility] Calculated P [place] 31 degrees [facility] Calculated R [place] -33 degrees [facility] Calculated T [place] 33 degrees [facility] Interpretation EKG NORMAL SINUS RHYTHM LEFT AXIS DEVIATION ABNORMAL ECG NO PREVIOUS ECGS AVAILABLE Confirmed by ELIEL MAN, BJORN ([id number]) on 06/07/2024 9:47:31 AM [facility] 06/04/2024 6:53 PM CDT 06/07/2024 9:47 AM CDT us Asmita Pearson MD ECG ORDERABLES Edited Result - Final [facility] M[facility] from Last 3 Months Additional Health Concerns Infection Onset Date Last Indicated MRSA 06/07/2024 06/07/2024 Insurance [employer] MEDICARE ADV SELF PAY NO INSURANCE Member Subscriber Plan / Payer (Ef fective for All Dates) Name:Evan Menon Member ID:Not on file Relation to Subscriber:Not on file Name:EVAN MENON Subscriber ID:Not on file (Home) Address: [address] [place] [id number] Payer ID:Not on file Group ID:Not on file Type:Self Pay Address: [place], [place] Advance Directives * Full Code (Latest Code Status on File) Date Activated Date Inactivated Comments 06/04/2024 6:21 PM 06/14/2024 2:19 PM Care Teams Survey Technician Relationship Specialty Start Date End Date Ibrahima Bird MD [address] [id number] PCP - General Family Medicine 06/24/24
[2024-08-12 10:00] VITALS: BP 143/73; PULSE 74; RESP 16; TEMP 36.6; O2SAT 100
[2024-08-12] MEDS: LORATADINE 10 MG TABLET PO (10:00)
[2024-08-12 10:07] LABS: Alanine Aminotransferase 11 U/L (6-50); Albumin Level 3.4 g/dL (3.5-5.1); Alkaline Phosphatase 80 U/L (38-126); Anion Gap 7 mmol/L (4-12); Aspartate Amino Transferase 20 U/L (17-59); Bilirubin,Total 0.2 mg/dL (0.2-1.3); Blood Urea Nitrogen 35 mg/dL (9-20); Calcium 9.1 mg/dL (8.4-10.2); Carbon Dioxide 26 mmol/L (22-30); Chloride 102 mmol/L (98-107); Estimated CRCL calculation 49 ml/min; Estimated Glomerular Filt Rate 46; Glucose 109 mg/dL (65-110); Potassium 4.4 mmol/L (3.4-5.0); Sodium 135 mmol/L (137-145); Total Protein 6.7 g/dL (6.3-8.2)
[2024-08-12 10:35] LABS: Magnesium 1.8 mg/dL (1.6-2.3)
[2024-08-12 10:48] LABS: Troponin I < 0.012 ng/mL (0.000-0.034)
[2024-08-12 10:53] LABS: Procalcitonin 0.1 ng/mL
[2024-08-12 10:55] VITALS: BP 156/78; PULSE 73; RESP 16; TEMP 36.6; O2SAT 100
--- NOTE | 2024-08-12 11:03 | ED_ITS ---
HPI - General Adult General Chief complaint: Syncope Stated complaint: syncopal episode Time Seen by Provider: 08/12/24 09:40 History of Present Illness HPI narrative: Patient is a 79-year-old gentleman presents emergency department with chief complaint of syncopal episode. Patient reports that he was at the halfway with been doing therapy and was sitting up the patient states that he started having sweating and the started feeling lightheaded the patient reports that he briefly passed out reports that now he is not having any chest pain shortness of breath reports that he does have is dermatitis that has developed on his upper extremities Related Data Home Medications ?Medication ?Instructions ?Recorded ?Confirmed ?Last Taken ?Type aspirin 325 mg tablet 325 mg PO DAILY PRN fever 09/13/21 08/10/24 06/30/24 History fexofenadine 180 mg tablet 180 mg PO DAILY PRN contact 09/13/21 08/10/24 Unknown History dermititis gabapentin 300 mg capsule 600 mg PO Q12H 12/20/21 08/10/24 Unknown History hydrochlorothiazide 25 mg tablet 25 mg PO DAILY 07/23/23 08/10/24 Unknown History amlodipine 10 mg tablet 10 mg PO DAILY 06/30/24 08/10/24 06/30/24 History benzonatate 200 mg capsule 200 mg PO TID 06/30/24 08/10/24 06/30/24 History daptomycin 350 mg intravenous 500 mg IV BID 08/09/24 08/10/24 Unknown History solution Allergies Allergy/AdvReac Type Severity Reaction Status Date / Time cephalexin Allergy Severe Rash Verified 08/09/24 10:54 nickel Allergy Mild Other Verified 08/09/24 10:54 cetirizine (From Zyrtec) Allergy Unknown Unknown Verified 08/09/24 10:54 Review of Systems 2 Review of Systems: A 10 system review of systems was completed on the patient and is negative except for what is stated in the HPI. Nursing and ancillary documentation was reviewed. [facility] Past Medical History Medical History Uses feeding tube MRSA infection Perforated gastric ulcer (04/2024) Repair 05/03 PAD (peripheral artery disease) Acute perforated appendicitis Piriformis syndrome Trochanteric bursitis, right hip Lumbar stenosis Low Back Pain Arthritis Colon polyps (05/24/23) Umbilical hernia HTN (hypertension) Hypercholesterolemia Surgical History Surgical History History of abdominal surgery (04/2024) Repair perforated gastric ulcer History of appendectomy (06/2022) Perforated appemdix H/O Spinal surgery (1984) H/O umbilical hernia repair (2011) Hx of tonsillectomy Family History Family History Father Acute myocardial infarction Heart disease Alzheimer disease Mother Acute myocardial infarction Heart disease Alzheimer disease Social History Social History Social History: Code status: Full code; POLST signed 06/14/24 Surrogate decision maker: Erika () Smoking status: Never smoker Second hand tobacco smoke exposure: Yes Alcohol intake: never Alcohol use details: Occasional Substance use: never Substance use type: does not use Lack of Transportation: No Lack of Food: Never True Current Housing: I Have Housing Concerned About Future Housing: No Difficulty Paying Gas/Electric Bills: No Difficulty Paying for Meds: No Currently Unemployed: No Education: Master's Degree or Higher Difficulty w/ Childcare or Family Care: No Living arrangements: halfway Additional living arrangements comments: previously with family, currently rehab facility Occupation/Education: retired Gender identity (if verbalized by the patient): Male Spiritual care concerns: No Agree to blood products: Yes Exam 2 Narrative: GENERAL: Well-appearing, well-nourished, and in no acute distress. HEAD: Normocephalic, atraumatic. EYES: PERRLA and EOMI. ENT: Nares clear, no rhinorrhea or epistaxis. Mucous membranes moist. NECK: Supple. CHEST: Clear to auscultation. No respiratory distress. HEART: Regular rate and rhythm. No murmur heard. Normal peripheral pulses. ABDOMEN: Soft, nontender, nondistended, normal active bowel sounds. The old G- tube site is healing nicely EXTREMITIES: Normal range of motion. No edema. SKIN: Warm, dry, no rash. Wound present in the right flank is well approximated healing NEURO: No focal deficits. Alert and oriented x3. PSYCH: Normal mood and affect. Course Vital Signs Vital signs: Vital Signs Temperature 36.6 C 08/12/24 09:25 Pulse Rate 72 08/12/24 09:25 Respiratory Rate 20 08/12/24 09:25 Blood Pressure 141/60 H 08/12/24 09:25 Pulse Oximetry 100 08/12/24 09:25 Oxygen Delivery Room Air 08/12/24 09:25 Temperature 36.6 C 08/12/24 10:55 Pulse Rate 73 08/12/24 10:55 Respiratory Rate 16 08/12/24 10:55 Blood Pressure 156/78 H 08/12/24 10:55 Pulse Oximetry 08/12/24 10:55 Oxygen Delivery Room Air 08/12/24 09:25 Medical Decision Making MDM Narrative Medical decision making narrative: Differential diagnosis includes vasovagal syncope, electrolyte abnormality, dehydration, dysrhythmia, pneumonia EKG showed no acute ischemic Changes no evidence dysrhythmia Electrolytes are within normal limits procalcitonin is normal creatinine is 1.49 is improved from his previous studies potassium was 4.4 magnesium was 1.8 CBC showed white count of 9.4 hemoglobin was 9.0 which is improved from the of last month for his a 0.7 Vital Signs Vital Signs: Vital Signs Temperature 36.6 C 08/12/24 09:25 Pulse Rate 72 08/12/24 09:25 Respiratory Rate 20 08/12/24 09:25 Blood Pressure 141/60 H 08/12/24 09:25 Pulse Oximetry 08/12/24 09:25 Oxygen Delivery Room Air 08/12/24 09:25 Temperature 36.6 C 08/12/24 10:55 Pulse Rate 73 08/12/24 10:55 Respiratory Rate 16 08/12/24 10:55 Blood Pressure 156/78 H 08/12/24 10:55 Pulse Oximetry 08/12/24 10:55 Oxygen Delivery Room Air 08/12/24 09:25 Lab Data 08/12/24 09:43 08/12/24 09:43 Labs: Lab Results 08/12/24 08/12/24 Range/Units 09:43 10:32 WBC 9.4 (4.5-10.0) K/mm3 RBC 3.13 L (4.6-6.20) M/mm3 Hgb 9.0 L (14.0-18.0) g/dL Hct 29.7 L (42.0-52.0) % MCV 94.9 (80-100) fl MCH 28.8 (26-34) pg MCHC 30.3 L (32-36) g/dl RDW 16.0 H (11.5-14.5) % Plt Count 209 (150-375) k/mm3 MPV 10.8 H (7.4-10.4) fl Immature Gran % (Auto) 0.4 (0-0.5) % Neut % (Auto) 74.5 H (45.5-73.1) % Lymph % (Auto) 11.7 L (18.3-44.2) % Nance % (Auto) 8.0 (2.6-8.5) % Eos % (Auto) 5.0 H (0-4.4) % Baso % (Auto) 0.4 (0.2-1.2) % Lymph # (Auto) 1.10 (0.9-3.2) K/mm3 Nance # (Auto) 0.8 H (0.1-0.6) K/mm3 Eos # (Auto) 0.5 H (0-0.3) K/mm3 Baso # (Auto) 0.0 (0.0-0.1) K/mm3 Abs Immat Gran (auto) 0.04 H (0.00-0.031) K/mm3 Absolute Neuts (auto) 7.0 H (1.3-6.7) K/mm3 Absolute Nucleated RBC 0.000 (0.0-0.012) K/mm3 Nucleated RBC % 0.0 (0.0-0.2) % Sodium 135 L (137-145) mmol/L Potassium 4.4 (3.4-5.0) mmol/L Chloride 102 (98-107) mmol/L Carbon Dioxide 26 (22-30) mmol/L Anion Gap 7 (4-12) mmol/L BUN 35 H (9-20) mg/dL Creatinine 1.49 H (0.7-1.3) mg/dL Estim Creat Clear Calc 49 ml/min Estimated GFR 46 L (59 - ) Glucose 109 (65-110) mg/dL Lactic Acid 0.8 (0.7-2.0) mmol/L Calcium 9.1 (8.4-10.2) mg/dL Magnesium 1.8 (1.6-2.3) mg/dL Total Bilirubin 0.2 (0.2-1.3) mg/dL AST 20 (17-59) U/L ALT 11 (6-50) U/L Alkaline Phosphatase 80 (38-126) U/L Troponin I < 0.012 (0.000-0.034) ng/mL Total Protein 6.7 (6.3-8.2) g/dL Albumin 3.4 L (3.5-5.1) g/dL Procalcitonin 0.1 ng/mL Discharge Plan Discharge Clinical Impression: Syncope, vasovagal Patient Disposition: [facility]Asst Living Condition: Stable Instructions: Antibiotic Form, Syncope (ED) Patient Language: [place] Prescriptions: No Action fexofenadine 180 mg tablet 180 mg PO DAILY PRN (Reason: contact dermititis) aspirin 325 mg tablet 325 mg PO DAILY PRN (Reason: fever) gabapentin 300 mg capsule 600 mg PO Q12H hydrochlorothiazide 25 mg tablet 25 mg PO DAILY Dose Instruction: TAKE 1 TABLET BY MOUTH DAILY Rx Instructions: TAKE 1 TABLET BY MOUTH DAILY daptomycin 350 mg recon soln 500 mg IV BID Rx Instructions: administer over 30 mins amlodipine 10 mg tablet 10 mg PO DAILY benzonatate 200 mg capsule 200 mg PO TID lisinopril 40 mg tablet See Rx Instructions .ROUTE .COMPLEX Qty: 90 2RF Dose Instruction: TAKE 1 TABLET BY MOUTH EVERY DAY Rx Instructions: TAKE 1 TABLET BY MOUTH EVERY DAY furosemide 40 mg tablet 40 mg PO QAM Qty: 90 2RF tramadol 50 mg tablet 50 mg PO Q4H PRN (Reason: pain) Qty: 90 2RF atorvastatin 20 mg tablet See Rx Instructions .ROUTE .COMPLEX Qty: 90 2RF Dose Instruction: TAKE 1 TABLET BY MOUTH EVERY DAY Rx Instructions: TAKE 1 TABLET BY MOUTH EVERY DAY Follow-up/Referrals: Ibrahima Bird MD [Primary Care Provider] - Time of Disposition: 11:51
[2024-08-12] MEDS: HYDROcodone/acetaminophen (*CRX) 5-325 MG TABLET 1 TAB PO (11:07)
[2024-08-12 11:45] VITALS: BP 151/71; PULSE 74; RESP 16; TEMP 36.6; O2SAT 98
== END 2024-08-12 14:40 ==
PROVIDERS: Emergency Provider Emergency Medicine; PCP Family Medicine Adolescent Medicine
DX: R55 Syncope and collapse (principal); Z79.82 Long term (current) use of aspirin; I73.9 Peripheral vascular disease, unspecified; I10 Essential (primary) hypertension; E78.00 Pure hypercholesterolemia, unspecified
CPT/HCPCS: 36415; 71045; 80053; 83605; 83735; 84145; 84484; 85025; 93005; 99284; A9270

== ENCOUNTER 2024-08-30 19:27 | Inpatient (IN) | payer MEDICARE, SELFPAY ==
--- OUTSIDE RECORDS SUMMARY | 2024-08-30 19:30 | XMS_ITS | Clinical Summary ---
Author Organization [facility] Address [address] [place] [address] Care Team Providers Care Field Traffic Investigator Name Role Phone Ibrahima Bird MD Primary Care Provider + Source Comments [facility],non-owned Affiliates and Associated Physician Practices is amultiple site organization consisting of ambulatory clinics and hospital sitesin [place], [place], [place] and [place]. This disclosure is being madepursuant to the Care Everywhere program and may not contain all information available regarding this patient. Last updated 17.[facility] Allergies Active Allergy Reactions Criticality Noted Date [...] changes -Currently psoas drain draining well, f/u [facility] IR for drain maintenance. -Small c spine [...] changes -Currently psoas drain draining well, /u [facility] IR for drain maintenance. -Small c spine [...] as above) -Currently psoas drain draining well, /[facility] IR for drain maintenance. Assessment & [...] above) -Currently psoas drain draining well, /u [facility] IR for drain maintenance. Assessment & [...] above) -Currently psoas drain draining well, f/u [facility] IR for drain maintenance. Assessment & [...] above) -Currently psoas drain draining well, f/u [facility] IR for drain maintenance. Assessment & [...] above) -Currently psoas drain draining well, f/u [facility] IR for drain maintenance. Assessment & [...] AM CDT): -s/p Ex-lap w/ repair at [facility] -G tube in place -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, no further intervention per OSH surgery -PPI -o/p f/u with [facility] surgery Assessment & Plan (06/13/2024 10:04 AM CDT): -s/p Ex-lap w/ repair at [facility] -G tube in place -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, no further intervention per OSH surgery -PPI -o/p f/u with [facility] surgery Assessment & Plan (06/12/2024 7:55 AM CDT): -s/p Ex-lap w/ repair at [facility] -G tube in place -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, no further intervention per OSH surgery -PPI -o/p f/u with [facility] surgery Assessment & Plan (06/11/2024 10:18 AM CDT): -s/p Ex-lap w/ repair at [facility] -G tube in place -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, no further intervention per OSH surgery -PPI -o/p f/u with [facility] surgery Assessment & Plan (06/10/2024 10:08 AM CDT): -s/p Ex-lap w/ repair at [facility] -G tube in place -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, no further intervention per OSH surgery -PPI -o/p f/u with [facility] surgery Assessment & Plan (06/09/2024 1:40 PM CDT): -s/p Ex-lap w/ repair at [facility] -G tube in place -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, no further intervention per OSH surgery -PPI -o/p f/u with [facility] surgery Assessment & Plan (06/08/2024 1:56 PM CDT): -s/p Ex-lap w/ repair at [facility] -G tube in place -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, no further intervention per OSH surgery -PPI -o/p f/u with [facility] surgery Assessment & Plan (06/07/2024 4:46 PM CDT): -s/p Ex-lap w/ repair at [facility] -G tube in place -CT 05/22 w/ sequelae of perforation, no further intervention per OSH surgery -PPI -o/p f/u with [facility] Assessment & Plan (06/06/2024 9:53 AM CDT): -s/p Ex-lap w/ repair at [facility] -G tube in place -CT 05/22 w/ sequelae of perforation, no further intervention per OSH surgery PLAN -PPI -o/p f/u with [facility] -If concern for recurrent perf, will consult [facility] Assessment & Plan (06/05/2024 11:03 AM CDT): -s/p Ex-lap w/ repair at [facility] -G tube in place -CT 05/22 w/ sequelae of perforation, no further intervention per OSH surgery PLAN -PPI -o/p f/u with [facility] surgery -If concern for recurrent perf, will consult [facility] Assessment & Plan (06/04/2024 8:01 PM CDT): - s/p Ex-Lap with Repair at [facility] - G-tube in place, receiving Tube-Feedings - [...] to retain, odom inserted-- voiding trial with [facility] urology appt confirmed. Assessment & Plan (06/13/2024 10:04 AM CDT): -b/l Cr 1.5, Stable -voiding trial since 06/06, had to straight cath pt, he was retaining over 500, unable to void since odom removal around 0500. 700cc recorded. -continues to retain, odom inserted-- voiding trial with [facility] urology appt confirmed. Assessment & Plan (06/12/2024 7:55 AM CDT): -b/l Cr 1.5, Stable -voiding trial since 06/06, had to straight cath pt, he was retaining over 500, unable to void since odom removal around 0500. 700cc recorded. -continues to retain, odom inserted-- voiding trial with [facility] urology appt confirmed. Assessment & Plan (06/11/2024 10:18 AM CDT): -b/l Cr 1.5, Stable -voiding trial since 06/06, had to straight cath pt, he was retaining over 500, unable to void since odom removal around 0500. 700cc recorded. -continues to retain, odom inserted-- voiding trial with [facility] urology appt confirmed. Assessment & Plan [...] changes -Currently psoas drain draining well, f/u [facility] IR for drain maintenance. -Small c spine [...] above) -Currently psoas drain draining well, f/u [facility] IR for drain maintenance. Assessment & [...] above) -Currently psoas drain draining well, f/u [facility] IR for drain maintenance. Assessment & [...] above) -Currently psoas drain draining well, f/u [facility] IR for drain maintenance. Assessment & [...] above) -Currently psoas drain draining well, f/u [facility] IR for drain maintenance. Assessment & [...] above) -Currently psoas drain draining well, f/u [facility] IR for drain maintenance. Assessment & [...] above) -Currently psoas drain draining well, f/u [facility] IR for drain maintenance. Assessment & [...] above) -Currently psoas drain draining well, f/u [facility] IR for drain maintenance. Assessment & [...] MBS at Osh -Cont TF through Gtube -TREE DRILLER eval Assessment & Plan (06/05/2024 11:03 AM CDT): -Had MBS at Osh -Cont TF through Gtube -TREE DRILLER eval Assessment & Plan (06/04/2024 8:01 PM CDT): - Seen on OSH MBS on 05/30 - Possibly 2/2 recent intubation, Pre-vertebral/Retropharyngeal Abscess? - Pt has G-tube in place since ex-lap for gastric perforation 04/22 > Cont NPO > TF (cont Nepro from prior hospital) > Nutrition consult > TREE DRILLER eval - ADAT (was cleared to start [...] MBS at Osh -Cont TF through Gtube -TREE DRILLER eval Assessment & Plan (06/05/2024 11:03 AM CDT): -Had MBS at Osh -Cont TF through Gtube -TREE DRILLER eval Encounters Date Type Department Care Team Description 08/30/2024 10:43 AM CDT Hospital Encounter [facility] LAB OP DRAW STATION [address] [place] [address] Vish Antonio MD 08/30/2024 9:30 AM CDT Office Visit [facility] - Orthopedics [address] [place] [address], [place] [address] Vish Antonio MD Arrived 08/30/2024 8:57 AM CDT Hospital Encounter [facility] DIAGNOSTIC RAD CSM [address] [place] [place] [address] Vish Antonio MD 08/30/2024 Telephone [facility] - Infectious Disease [address] [place] [phone] Thalia Pichardo PA-C Results 08/30/2024 Travel 08/29/2024 Orders Only [facility] Orthopedics [address] [place] [phone] Vish Antonio MD Lumbar spine pain 08/25/2024 Orders Only [facility] - Infectious Disease [address] [place] [phone] Thalia Pichardo PA-C Psoas abscess, right (HCC) ; MRSA bacteremia 08/23/2024 Telephone [facility]ious Disease [address] [place] [phone] Thalia Pichardo PA-C Follow-up 08/22/2024 1:17 PM CDT - 08/22/2024 11:59 PM CDT Hospital Encounter [facility] Health Imaging Services - MRI [address] [place] [address] Thalia Pichardo PA-C Discharge Disposition: Home or Self Care 07/28/2024 Telephone [facility] - Infectious Disease [address] [place] [address], [place] [address] Thalia Pichardo PA-C Follow-up 07/26/2024 9:15 AM CDT Office Visit [facility] - Orthopedics [address] [place] [phone] Vish Antonio MD Lumbar spine pain (Primary Dx) 07/26/2024 8:34 AM CDT - 07/26/2024 11:59 PM CDT Hospital Encounter [facility] DIAGNOSTIC RAD CSM [address] [facility] [place] [address] Vish Antonio MD Discharge Disposition: Home or Self Care 07/26/2024 Travel 07/21/2024 10:30 AM CDT Office Visit [facility] - Infectious Disease [address] [place] [phone] Thalia Pichardo PA-C Psoas abscess, right (HCC) (Primary Dx); MRSA bacteremia; Osteomyelitis of lumbar spine (HCC); Septic arthritis of lumbar spine 07/21/2024 Travel 07/19/2024 5:15 PM CDT - 07/19/2024 11:59 PM CDT Hospital Encounter [facility] MRI [address] [place] [address] Thalia Pichardo PA-C Discharge Disposition: Home or Self Care 07/19/2024 Travel 07/06/2024 Telephone [facility] - Infectious Disease [address] [place] [phone] Thalia Pichardo PA-C LABS ONLY 07/06/2024 Orders Only [facility] PH[facility]ACY [address] [place] [phone] Ely Santos, PharmD 07/01/2024 Telephone [facility] - Infectious Disease [address] [place] [phone] Thalia Pichardo PA-C Results 06/24/2024 10:30 AM CDT Office Visit [facility] - Orthopedics [address] [place] [address] Renato Dorsey MD Arthritis of both wrists (Primary Dx) 06/24/2024 Travel 06/22/2024 Telephone [facility] - Infectious Disease [address] [facility] [place] [address] Thalia Pichardo PA-C Results 06/04/2024 4:58 PM CDT - 06/14/2024 1:09 PM CDT Hospital Encounter [facility] 8S ACUTE [address] [place] [address] Darion Beaver DO Kumar, Ashwath, MD Jain, Aman, DO Kent, Saida A, MD Neal, Prashanth Enrique MD Hospitalist Discharge Disposition: Snf Facility 06/04/2024 Travel 06/04/2024 Telephone [facility] [address] [place] [phone] Darion Beaver DO Abscess from Last 3 Months Social History Tobacco Use Types Packs/Day Years Used Date Smoking Tobacco: Never Smokeless Tobacco: Never Tobacco Cessation:Counseling Given: Not Answered Alcohol Use Standard Drinks/Week Comments Never 0 [...] Recorded Patient Health Questionnaire-2 Score 0 07/21/2024 [facility] [place] [facility] Occupat ional Health - Occupational Stress [...] any time in the past 12 [facility], were you homeless or living in a fpc (including now)? No 06/04/2024 Sex and Gender Information Value Date Recorded Sex Assigned at Not on file Legal Sex Male 9:29 AM [employer] Gender Identity Not on file Sexual Orientation [...] 06/04/2024 5:03 PM CDT Plan of Treatment Health Maintenance Due Date Last Done Comments HEPATITIS C SCREENING 07/31/1965 DTAP/TDAP/TD VACCINES (1 - Tdap) 08/04/1966 PNEUMOCOCCAL VACCINE 50+ (1 of 1 - PCV) 08/04/1997 ZOSTER VACCINE (1 of 2) 08/04/1997 Respiratory Syncytial Virus (RSV) Vaccine Pt: or over 60 yrs (1 - 1-dose 75+ series) 08/04/2022 COVID-19 VACCINE (5 - season) 2023 06/07/2021, 11/30/2020, 04/24/2020, Additional history [...] Procedure Name Priority Date/Time Associated Diagnosis Comments C-REACTIVE PROTEIN Routine 08/30/2024 11 :08 AM CDT Psoas abscess, right (HCC) MRSA bacteremia ERYTHROCYTE SEDIMENTATION RATE Routine 08/30/2024 11:08 AM CDT Psoas abscess, right (HCC) MRSA bacteremia COMPREHENSIVE METABOLIC PANEL Routine 08/30/2024 11:08 AM CDT Psoas abscess, right (HCC) MRSA bacteremia CBC W AUTO DIFFERENTIAL Routine 08/30/2024 11:08 AM CDT Psoas abscess, right (HCC) MRSA bacteremia XR LUMBAR SPINE 2 OR 3VW Routine 08/30/2024 9:11 AM CDT Lumbar spine pain MRI PELVIS WWO CONTRAST Routine 08/22/2024 2:59 PM CDT Psoas abscess, right (HCC) LAB RESULTS ORDER 08/10/2024 LAB RESULTS ORDER [...] Draw 06/05/2024 9: 14 AM CDT PT-INR [facility] Routine 06/05/2024 9:14 AM CDT PHOSPHORUS BLOOD [...] from Last 3 Months Results * (ABNORMAL) C-REACTIVE PROTEIN (08/30/2024 11:08 AM CDT) Only the most recent of2 resultswithin the time period is included. C-Reactive Protein 8.6(H) <=0.5 mg/dL 08/30/2024 12:34 PM CDT [facility] Blood BLOOD SPECIMEN / Unknown Lab Venipuncture / Unknown 08/30/2024 11:08 AM CDT 08/30/2024 11:48 AM CDT us Thalia Pichardo PA-C LAB - CHEMISTRY ORDERABLES F inal Result [facility] LABORATORY [facility] [address] [place] [address], [facility] [phone] * (ABNORMAL) ERYTHROCYTE SEDIMENTATION RATE (08/30/2024 11:08 AM CDT) Only the most recent of2 resultswithin the time period is included. [facility] Erythrocyte Sedimentation Rate Westergren 105(H) 0 - 20 MM/HR 08/30/2024 12:19 PM [facility] Blood BLOOD SPECIMEN / Unknown Lab Venipuncture / Unknown 08/30/2024 11:08 AM CDT 08/30/2024 11:52 AM CDT us Thalia Pichardo PA-C LAB - HEMATOLOGY ORDERABLES Final Result [facility] [address] [place] [address], [facility] [phone] * (ABNORMAL) CBC W/ DIFFERENTIAL (08/30/2024 11:08 AM CDT) Only the most recent of4 resultswithin the time period is included. [facility] WBC 8.6 4.0 - 10.7 x10E9/L 08/30/2024 12:06 PM [facility] RBC Count 3.44(L) 4.30 - 5.80 x10E12/L 08/30/2024 12:06 PM [facility] Hemoglobin 10.1(L) 13.3 - 17.5 g/dL 08/30/2024 12:06 PM [facility] Hematocrit 31.4(L) 38.7 - 51.1 % 08/30/2024 12:06 PM [facility] MCV 91.3 80.0 - 98.0 fL 08/30/2024 12:06 PM [facility] MCH 29.4 26.7 - 33.6 pg 08/30/2024 12:06 PM [facility] MCHC 32.2 31.7 - 36.3 g/dL 08/30/2024 12:06 PM [facility] RDW-CV 15.1(H) 11.3 - 14.8 % 08/30/2024 12:06 PM [facility] Platelet Count 236 150 - 420 x10E9/L 08/30/2024 12:06 PM [facility] MPV 11.9(H) 7.8 - 11.4 fL 08/30/2024 12:06 PM [facility] Neutrophil % 70.4 41.0 - 74.0 % 08/30/2024 12:06 PM [facility] Lymphocyte % 12.6(L) 17.0 - 47.0 % 08/30/2024 12:06 PM [facility] Monocyte % 9.0 3.0 - 11.0 % 08/30/2024 12:06 PM [facility] Eosinophil % 6.9 0.0 - 7.0 % 08/30/2024 12:06 PM [facility] Basophil % 0.6 0.0 - 1.6 % 08/30/2024 12:06 PM [facility] Immature Granulocytes % 0.5 0.0 - 1.0 % 08/30/2024 12:06 PM [facility] Neutrophil Absolute 6.03 1.60 - 7.50 x10E9/L 08/30/2024 12:06 PM [facility] Lymphocyte Absolute 1.08 1.00 - 4.40 x10E9/L 08/30/2024 12:06 PM [facility] Monocyte Absolute 0.77 0.15 - 1.00 x10E9/L 08/30/2024 12:06 PM [facility] Eosinophil Absolute 0.59 0.00 - 0.60 x10E9/L 08/30/2024 12:06 PM [facility] Basophil Absolute 0.05 0.00 - 0.13 x10E9/L 08/30/2024 12:06 PM [facility] Blood BLOOD SPECIMEN / Unknown Lab Venipuncture / Unknown 08/30/2024 11:08 AM CDT 08/30/2024 11:52 AM T us Thalia Pichardo PA-C LAB - HEMATOLOGY ORDERABLES Final Result [facility] [address] [place] [address], [facility] [phone] * (ABNORMAL) COMPREHENSIVE METABOLIC PANEL (08/30/2024 11:08 AM [facility]) Only the most recent of4 resultswithin the time period is included. BUN 54(H) 7 - 26 mg/dL 08/30/2024 12:34 PM [facility] Creatinine 2.17(H) 0.71 - 1.16 mg/dL 08/30/2024 12:34 PM [facility] Sodium 133(L) 136 - 145 mmol/L 08/30/2024 12:34 PM [facility] Potassium 4.6(H) 3.5 - 4.5 mmol/L 08/30/2024 12:34 PM [facility] Chloride 102 98 - 107 mmol/L 08/30/2024 12:34 PM [facility] CO2 19(L) 22 - 29 mmol/L 08/30/2024 12:34 PM [facility] Glucose 96 70 - 99 mg/dL 08/30/2024 12:34 PM [facility] Calcium 9.6 8.4 - 10.2 mg/dL 08/30/2024 12:34 PM [facility] Protein Total 7.7 6.0 - 8.3 g/dL 08/30/2024 12:34 PM [facility] Albumin 3.7 3.4 - 5.0 g/dL 08/30/2024 12:34 PM [facility] Bilirubin Total 0.3 0.2 - 1.2 mg/dL 08/30/2024 12:34 PM [facility] Alkaline Phosphatase 95 40 - 150 U/L 08/30/2024 12:34 PM [facility] ALT 10 5 - 55 U/L 08/30/2024 12:34 PM [facility] AST 11 5 - 34 U/L 08/30/2024 12:34 PM [facility] Anion Gap 12 6 - 16 08/30/2024 12:34 PM [facility] BUN/Creatinine Ratio 25(H) 7 - 23 08/30/2024 12:34 PM CDT [facility] LABORATORY [facility] Osmolality Calculated 291 275 - 295 mOsm/kg 08/30/2024 12:34 PM CDT [facility] Albumin/Globulin Ratio 0.9(L) 1.1 - 2.3 08/30/2024 12:34 PM CDT [facility] eGFR by CKD-EPI 31(L) >=90 mL/min/1.7 3 m2 08/30/2024 12:34 PM CDT [facility] LABORATORY [facility] Comment:Estimated Glomerular Filtration Rate (eGFR) calculated using the CKD-EPI Creatinine Equation (2020), per the National Kidney Foundation and [place] [employer]ph[employer] recommendations. Blood BLOOD SPECIMEN / Unknown Lab Venipuncture / Unknown 08/30/2024 11:08 AM CDT 08/30/2024 11:48 AM CDT us Thalia Pichardo PA-C LAB - CHEMISTRY ORDERABLES F inal Result [facility] [address] [place] [address], [facility] [phone] * XR Lumbar Spine 2 or 3Vw (08/30/2024 9:11 AM CDT) Only the most recent of3 resultswithin the time period is included. Anatomical Region Laterality Modality Spine Computed Radiogr aphy 08/30/2024 10:0 9 AM CDT Impressions 08/30/2024 10:25 AM CDT IMPRESSION: Moderate to severe lumbar spondylosis again demonstrated. Report was dictated by John Marcano MD, ([facility] resident). I, Kevin Kim MD have personally reviewed and interpreted this examination/study. > Interpreting Provider: Kevin Kim MD on 08/30/2024 10:25 AM Narrative 08/30/2024 10:25 AM CDT PROCEDURE: XR LUMBAR SPINE 2 OR 3VW, DATE/TIME OF EXAM: 08/30/2024 9:11 AM, LOCATION [facility] INDICATION: M54.50: Lumbar spine pain ADDITIONAL CLINICAL INFORMATION: Ordering Provider Reason For Exam: LUMBAR SPINE PAIN COMPARISON: Lumbar radiographs 07/26/2024. FINDINGS: Interval removal of the right lower quadrant pigtail drainage catheter. There is mild S-shaped scoliosis of the lumbar spine. There is moderate to severe multilevel spondylosis with vacuum phenomenon of the L1-L2 and L4-L5 with severe anterior disc space narrowing of L3-L4. Moderate atherosclerotic calcification of the aorta and its branches. Procedure Note Kevin Kim MD - 08/30/2024 PROCEDURE: XR LUMBAR SPINE 2 OR 3VW, DATE/TIME OF EXAM: 08/30/2024 9:11 AM, LOCATION [facility] INDICATION: M54.50: Lumbar spine pain ADDITIONAL CLINICAL INFORMATION: Ordering Provider Reason For Exam: LUMBAR SPINE PAIN COMPARISON: Lumbar radiographs 07/26/2024. FINDINGS: Interval removal of the right lower quadrant pigtail drainage catheter. There is mild S-shaped scoliosis of the lumbar spine. There is moderateto severe multilevel spondylosis with vacuum phenomenon of the L1-L2 andL4-L5 with severe anterior disc space narrowing of L3-L4. Moderate atherosclerotic calcification of the aorta and its branches. IMPRESSION: Moderate to severe lumbar spondylosis again demonstrated. Report was dictated by John Marcano MD, ([facility] resident). I, Kevin Kim MD have personally reviewed and interpreted this examination/study. > Interpreting Provider: Kevin Kim MD on 08/30/2024 10:25 AM Vish Antonio MD DIAGNOSTIC IMAGING ORDERABLES Fi nal Result * MRI Pelvis Wwo Contrast (08/22/2024 2:59 PM CDT) Anatomical Region Laterality Modality Pelvis Magnetic Resonan ce 08/22/2024 3:29 PM CDT Narrative 08/22/2024 3:33 PM CDT Procedure: MRI PELVIS WWO CONTRAST Exam Date: 08/22/2024 3:00 PM Location: [facility] Indication: K68.12: Psoas abscess, right (HCC) COMPARISON: MRI of the lumbar spine from July 2024 TECHNIQUE: MRI of the pelvis was performed utilizing multiple pulse sequences in multiple planes with and without gadolinium. CONTRAST: GADOTERATE MEGLUMINE 0.5 MMOL/ML IV SSM SO:20 mL Findings/impression: There is a mild amount of fluid seen around the iliopsoas muscle on the right. This is slightly greater when compared to the left hip. However, there is no focal fluid collection. There is some stranding of the fat. Findings likely represent sequela from previous abscess. No abnormal contrast enhancement is identified. The right psoas muscle is somewhat smaller than the left. The bony structures are of normal signal. There is no bone marrow edema. The remaining musculature of the pelvis appears normal. The bladder is decompressed by a Odmo catheter. There is some mild bladder wall thickening. Please correlate clinically for cystitis. The prostate gland is normal in size. A scant amount of free fluid layers along the anterior aspect of the presacral region. There is no inguinal or pelvic adenopathy. The visualized bowel loops in the pelvis are unremarkable. > Interpreting Provider: Honorio Bartlett MD on 08/22/2024 3:33 PM Procedure Note Honorio Bartlett MD - 08/22/2024 Procedure: MRI PELVIS WWO CONTRAST Exam Date: 08/22/2024 3:00 PM Location: [facility] Indication: K68.12: Psoas abscess, right (HCC) COMPARISON: MRI of the lumbar spine from July 2024 TECHNIQUE: MRI of the pelvis was performed utilizing multiple pulse sequences in multiple planes with and without gadolinium. CONTRAST: GADOTERATE MEGLUMINE 0.5 MMOL/ML IV SSM SO:20 mL Findings/impression: There is a mild amount of fluid seen around the iliopsoas muscle on the right. This is slightly greater when compared to the left hip. However, there is no focal fluid collection. There is some stranding of the fat. Findings likely represent sequela from previous abscess. No abnormal contrast enhancement is identified. The right psoas muscle is somewhat smaller than the left. The bony structures are of normal signal. There is no bone marrow edema. The remaining musculature of the pelvis appears normal. The bladder is decompressed by a Odom catheter. There is some mildbladder wall thickening. Please correlate clinically for cystitis. The prostate gland is normal in size. A scant amount of free fluid layers along the anterior aspect of the presacral region. There is no inguinal or pelvic adenopathy. The visualized bowel loops in the pelvis are unremarkable. > Interpreting Provider: Honorio Bartlett MD on 08/22/2024 3:33 PM us Thalia Pichardo PA-C MR ORDERABLES Final Result * LAB RESULTS ORDER (08/10/2024) Only the most recent of3 resultswithin the time period is included. 08/10/2024 Narrative 08/10/2024 Ordered by an unspecified provider. us Scanned Document LAB - THERAPEUTIC DRUG MONITORI NG ORDERABLES Final Result * MRI Lumbar Spine [...] report is dictated by Fitz Roque MD, (Plastic Tile Layer) I, Luci Marques MD have personally reviewed and interpreted this examination/study. > Interpreting Provider: Luci Marques MD on 07/29/2024 4:55 PM Narrative 07/29/2024 4:55 PM CDT PROCEDURE: MRI LUMBAR SPINE WWO CONTRAST, DATE/TIME OF EXAM: 07/19/2024 6:06 PM, LOCATION [facility] INDICATION: R78.81: MRSA bacteremia B95.62: MRSA [...] stenosis at other levels. Procedure Note Luci Maruqes MD - 07/29/2024 PROCEDURE: MRI LUMBAR SPINE WWO CONTRAST, DATE/TIME OF EXAM: 07/19/2024 6:06 PM, LOCATION [facility] INDICATION: R78.81: MRSA bacteremia B95.62: MRSA [...] report is dictated by Fitz Roque MD, (Plastic Tile Layer) I, Luci Marques MD have personally reviewed and interpreted this examination/study. > Interpreting Provider: Luci Marques MD on 07/29/2024 4:55 PM Thalia Pichardo PASherrie MR ORDERABLES Final Result * (ABNORMAL) RENAL FUNCTION PANEL (06/14/2024 6:22 AM [facility] [place]) Only the most recent of5 resultswithin the [...] >=90 mL/min/1.7 3 m2 06/14/2024 7:04 AM CDT [facility] Blood BLOOD SPECIMEN / Unknown Venipuncture / Unknown 06/14/2024 6:22 AM CDT 06/14/2024 6:39 AM CDT us Darlene Sears MD LAB - CHEMISTRY ORDERABLES Final Result Performing Organization Address City/[facility]/ZIP Co de Phone Number [facility] [address] [place] [address], [place] [phone] * MAGNESIUM BLOOD (06/11/2024 11:52 AM CDT) Only the most recent of5 resultswithin the time period is included. Magnesium 1.8 1.6 - 2.6 mg/dL 06/11/2024 12:31 PM CDT [facility] Blood BLOOD SPECIMEN / Unknown Lab Venipuncture / Unknown 06/11/2024 11:52 AM CDT 06/11/2024 12:05 PM CDT us Darlene Sears MD LAB - CHEMISTRY ORDERABLES Final Result Performing Organization Address [facility] Co de Phone Number [address] [address], [place] [phone] * (ABNORMAL) CBC W/O DIFFERENTIAL (06/11/2024 11:51 AM CDT) Only the most recent of2 resultswithin the time period is included. WBC 7.2 4.0 - 10.7 x10E9/L 06/11/2024 12:12 PM T [facility] RBC Count 3.33(L) 4.30 - 5.80 x10E12/L 06/11/2024 12:12 PM T [facility] Hemoglobin 9.8(L) 13.3 - 17.5 g/dL 06/11/2024 12:12 PM T [facility] Hematocrit 31.3(L) 38.7 - 51.1 % 06/11/2024 12:12 PM CDT [facility] MCV 94.0 80.0 - 98.0 fL 06/11/2024 12:12 PM T [facility] MCH 29.4 26.7 - 33.6 pg 06/11/2024 12:12 PM T [facility] MCHC 31.3(L) 31.7 - 36.3 g/dL 06/11/2024 12:12 PM T [facility] RDW-CV 15.9(H) 11.3 - 14.8 % 06/11/2024 12:12 PM T [facility] Platelet Count 309 150 - 420 x10E9/L 06/11/2024 12:12 PM T [facility] MPV 11.3 7.8 - 11.4 fL 06/11/2024 12:12 PM [facility] Blood BLOOD SPECIMEN / Unknown Lab Venipuncture / Unknown 06/11/2024 11:51 AM CDT 06/11/2024 12:05 PM CDT us Darlene Sears MD LAB - HEMATOLOGY ORDERABLES Collette l Result [address] [address], [facility] [phone] * VANCOMYCIN LEVEL TROUGH (06/11/2024 11:51 AM CDT) Only the most recent of2 resultswithin the time period is included. Vancomycin Trough 14.8 10.0 - 20.0 ug/mL 06/11/2024 12:35 PM CDT [facility] Blood BLOOD SPECIMEN / Unknown Lab Venipuncture / Unknown 06/11/2024 11:51 AM CDT 06/11/2024 11:59 AM CDT Narrative [facility] - 06/11/2024 12:35 PM CDT See institution protocol. us Darlene Sears MD LAB - CHEMISTRY ORDERABLES Final Result [address] [address], [facility] [phone] * (ABNORMAL) BASIC METABOLIC PANEL (CALCIUM TOTAL) (06/10/2024 2:07 PM CDT) Only the most recent of2 resultswithin the time period is included. BUN 28(H) 7 - 26 mg/dL 06/10/2024 2:51 PM [facility] Creatinine 1.21(H) 0.71 - 1.16 mg/dL 06/10/2024 2:51 PM [facility] Sodium 134(L) 136 - 145 mmol/L 06/10/2024 2:51 PM [facility] Potassium 4.7(H) 3.5 - 4.5 mmol/L 06/10/2024 2:51 PM [facility] Chloride 103 98 - 107 mmol/L 06/10/2024 2:51 PM [facility] CO2 27 22 - 29 mmol/L 06/10/2024 2:51 PM [facility] Glucose 107(H) 70 - 99 mg/dL 06/10/2024 2:51 PM [facility] Calcium 8.2(L) 8.4 - 10.2 mg/dL 06/10/2024 2:51 PM [facility] Anion Gap 4(L) 6 - 16 06/10/2024 2:51 PM [facility] BUN/Creatinine Ratio 23 7 - 23 06/10/2024 2:51 PM [facility] Osmolality Calculated 284 275 - 295 mOsm/kg 06/10/2024 2:51 PM [facility] eGFR by CKD-EPI 62(L) >=90 mL/min/1.7 3 m2 06/10/2024 2:51 PM [facility] Blood BLOOD SPECIMEN / Unknown Venipuncture / Unknown 06/10/2024 2:07 PM CDT 06/10/2024 2:17 PM CDT us Darlene Sears MD LAB - CHEMISTRY ORDERABLES Final Result [facility] [address] [place] [address] [phone] * (ABNORMAL) VANCOMYCIN LEVEL PEAK (06/10/2024 2:07 PM CDT) Only the most recent of2 resultswithin the time period is included. Vancomycin Peak 24.8(L) 25.0 - 40.0 ug/mL 06/10/2024 2:42 PM CDT [facility] Blood BLOOD SPECIMEN / Unknown Venipuncture / Unknown 06/10/2024 2:07 PM CDT 06/10/2024 2:16 PM CDT Narrative [facility] - 06/10/2024 2:42 PM CDT See institution protocol. Data does not support the use of vancomycin peak concentration for efficacy. us Darlene Sears MD LAB - CHEMISTRY ORDERABLES Final Result Performing Organization Address City/State/[facility] Co de Phone Number [facility] [address] [place] [phone], [facility] [phone] * FL SWALLOWING FUNCTION STUDY (06/09/2024 8:58 [...] (ka,r). Report dictated by Fitz Roque MD, (Plastic Tile Layer). IIshaan MD have personally reviewed and interpreted this [...] (ka,r). Report dictated by Fitz Roque MD, (Plastic Tile Layer). I, Ishaan Blancas MD have personally reviewed [...] random specimens ug/mL 06/09/2024 8:47 AM CDT [facility] Blood BLOOD SPECIMEN / Unknown Lab Venipuncture / Unknown 06/09/2024 7:45 AM CDT 06/09/2024 7:55 AM CDT Narrative [facility] - 06/09/2024 8:47 AM CDT See institution protocol. us Darlene Sears MD LAB - CHEMISTRY ORDERABLES Final Result [address] [address], [facility] [phone] * IR Picc Line Insert (06/08/2024 5:03 [...] perforated appendicitis who presented as transfer from [facility] for MRSA bacteremia, complicated by spinal abscess and need a higher level of care Indication: IV antibiotic therapy Architectural Wood Model Maker: Raymond Palm RN [facility] Procedures: 1. Limited extremity ultrasound to assess vascular patency 2. Ultrasound guided access of the Right brachial vein. 3. Placement of peripherally inserted central line with magnetic tracking and ECG tip positioning system ([employer]). Anesthesia: Local anesthesia with 4mL of 1% [...] magnetic tracking and ECG tip positioning system ([employer]), The peel-away sheath was removed, and the [...] Sears MD IR ORDERABLES Final Result * PHOSPHORUS BLOOD (06/07/2024 7:06 AM CDT) Only the most recent of3 resultswithin the time period is included. Phosphorus 3.9 2.8 - 5.1 mg/dL 06/07/2024 8:03 AM CDT [facility] Blood BLOOD SPECIMEN / Unknown Lab Venipuncture / Unknown 06/07/2024 7:06 AM CDT 06/07/2024 7:33 AM CDT us Danilo Don DO LAB - CHEMISTRY ORDERABLES Final Result [address] [address], [facility] [phone] * XR Knee Left 2Vw or Less [...] MD on 06/07/2024 12:35 AM Gretchen Salamanca APRN-[facility] DIAGNOSTIC IMAGING [facility] Final Result * VAS ARTERIAL ANKLE ARM [...] - 7.2 mg/dL 06/06/2024 7:17 AM CDT [facility] Blood BLOOD SPECIMEN / Unknown Venipuncture / Unknown 06/06/2024 6:48 AM CDT 06/06/2024 6:53 AM CDT Danilo Don DO LAB - CHEMISTRY ORDERABLES Final Result [facility] [address] [place] [address], [facility] [phone] * XR Wrist Left 3Vw or More (06/06/2024 6:24 AM CDT) Anatomical Region Laterality Modality Wrist / Hand Digital Radiogra phy 06/06/2024 7:36 AM CDT Narrative 06/06/2024 8:30 AM CDT PROCEDURE: XR WRIST LEFT 3VW OR MORE, DATE/TIME OF EXAM: 06/06/2024 6:43 AM, LOCATION [facility] INDICATION: M25.531: Pain in both wrists [...] CT. Report dictated by Fitz Roque MD, (Plastic Tile Layer). IChantel MD have personally reviewed and interpreted this examination/study. > Interpreting Provider: Chantel Ga MD on 06/06/2024 8:30 AM Procedure Note Chantel Ga MD - 06/06/2024 PROCEDURE: XR WRIST LEFT 3VW OR MORE, DATE/TIME OF EXAM: 56:43 AM, LOCATION [facility] INDICATION: M25.531: Pain in both wrists [...] CT. Report dictated by Fitz Roque MD, (Plastic Tile Layer). Chantel Pérez MD have personally reviewed and interpreted this examination/study. > Interpreting Provider: Chantel Ga MD on 06/06/2024 8:30 AM Danilo Don DO DIAGNOSTIC IMAGING ORDERABLES Fi nal Result * XR Wrist Right 3Vw or More (06/06/2024 6:11 AM CDT) Anatomical Region Laterality Modality Wrist / Hand Digital Radiogra phy 06/06/2024 7:36 AM CDT Impressions 06/06/2024 8:42 AM CDT IMPRESSION: 1.No acute fracture or dislocation identified. 2.Advanced wrist arthritis. Report dictated by Danilo Angel MD (residential leasing agent). Chantel Pérez MD have personally reviewed and interpreted this examination/study. > Interpreting Provider: Chantel Ga MD on 06/06/2024 8:42 AM Narrative 06/06/2024 8:42 AM CDT PROCEDURE: XR WRIST RIGHT 3VW OR MORE, DATE/TIME OF EXAM: 06/06/2024 6:42 AM, LOCATION [facility] INDICATION: M25.531: Pain in both wrists [...] MORE, DATE/TIME OF EXAM: 56:42 AM, LOCATION [facility] INDICATION: M25.531: Pain in both wrists [...] arthritis. Report dictated by Danilo Angel MD (residential leasing agent). I, Chantel Ga MD have personally reviewed and interpreted this examination/study. 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 Additional: Pt presented to [facility] hospital on 04/22 complaining of [...] Given patient's vulnerable GI track, Cardiology at [facility] did not feel comfortable performing [...] then narrowed to IV Vancomycin for MRSA. [facility] did not have ID and Spine Surgery available, so patient transferred to [facility] for further care. 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 Additional: Pt presented to [facility] hospital on 04/22 complaining ofabdominal [...] PNA) then narrowed to IV Vancomycin for MRSA.[facility] did not have ID and Spine Surgery available, so patient transferred [facility] for further care. 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 Additional: Pt presented to [facility] hospital on 04/22 complaining of [...] Given patient's vulnerable GI track, Cardiology at [facility] did not feel comfortable performing EMPERATRIZ (given [...] then narrowed to IV Vancomycin for MRSA. [facility] did not have ID and Spine Surgery available, so patient transferred to [facility] for further care. 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 Additional: Pt presented to [facility] on 04/22 complaining ofabdominal pain, hypotensive and [...] disease. Given patient'svulnerable GI track, Cardiology at [facility] did not feel comfortable performing [...] PNA) then narrowed to IV Vancomycin for MRSA.[facility] did not have ID and Spine Surgery available, so patient transferred [facility] for further care. 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 Additional: Pt presented to [facility] on 04/22 complaining of abdominal pain, hypotensive [...] Given patient's vulnerable GI track, Cardiology at [facility] did not feel comfortable performing [...] then narrowed to IV Vancomycin for MRSA. [facility] did not have ID and Spine Surgery available, so patient transferred to [facility] for further care. 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 Additional: Pt presented to [facility] hospital on 04/22 complaining ofabdominal [...] disease. Given patient'svulnerable GI track, Cardiology at [facility] did not feel comfortable performing EMPERATRIZ(given risk [...] PNA) then narrowed to IV Vancomycin for MRSA.[facility] did not have ID and Spine Surgery available, so patient transferred [facility] for further care. TECHNIQUE: CT of [...] MRI for additional details. > Interpreting Provider: Lavno Giron MD on 06/05/2024 7:37 PM us [...] report is dictated by Evan Ornelas DO, (residential leasing agent) > Dictated by Evan Ornelas DO (Plastic Tile Layer) 06/06/2024 9:39 AM ILavon MD have personally reviewed and interpreted this examination/study. > Interpreting Provider: Lavon Giron MD on 06/06/2024 1:32 PM Narrative 06/06/2024 1:32 PM CDT PROCEDURE: MRI CERVICAL SPINE WWO CONT, MRI LUMBAR SPINE WWO CONTRAST, MRI THORACIC SPINE WWO CONT, DATE/TIME OF EXAM: 06/05/2024 5:37 PM, LOCATION [facility] INDICATION: G06.1: Abscess in epidural space [...] subarticular disc protrusion at T10-11 resulting in mofr-cs-vwmfqbsg spinal canal stenosis. There are varying degrees [...] DATE/TIME OF EXAM: 06/05/2024 5:37 PM, LOCATION [facility] INDICATION: G06.1: Abscess in epidural space [...] subarticular disc protrusion at T10-11 resulting in quef-iq-pvibbwzr spinal canalstenosis. There are varying degrees of [...] report is dictated by Evan Ornelas DO, (residential leasing agent) > Dictated by Evan Ornelas DO (Plastic Tile Layer) 06/06/2024 9:39 AM ILavon MD have personally [...] report is dictated by Evan Ornelas DO, (residential leasing agent) > Dictated by Evan Ornelas DO (Plastic Tile Layer) 06/06/2024 9:39 AM ILavon MD have personally reviewed and interpreted this examination/study. > Interpreting Provider: Lavon Giron MD on 06/06/2024 1:32 PM Narrative 06/06/2024 1:32 PM CDT PROCEDURE: MRI CERVICAL SPINE WWO CONT, MRI LUMBAR SPINE WWO CONTRAST, MRI THORACIC SPINE WWO CONT, DATE/TIME OF EXAM: 06/05/2024 5:37 PM, LOCATION [facility] INDICATION: G06.1: Abscess in epidural space [...] subarticular disc protrusion at T10-11 resulting in qxkg-ia-gfwaowcw spinal canal stenosis. There are varying degrees [...] DATE/TIME OF EXAM: 06/05/2024 5:37 PM, LOCATION [facility] INDICATION: G06.1: Abscess in epidural space [...] subarticular disc protrusion at T10-11 resulting in okjb-ip-mclpiibr spinal canalstenosis. There are varying degrees of [...] report is dictated by Evan Ornelas DO, (residential leasing agent) > Dictated by Evan Ornelas DO (Plastic Tile Layer) 06/06/2024 9:39 AM ILavon MD have personally reviewed and interpretedthis examination/study. > Interpreting Provider: Lavon Giron MD on 06/06/2024 1:32 PM Danilo Don DO MR ORDERABLES Final Result * PT-INR [facility] (06/05/2024 9:14 AM CDT) PT 14.8 12.1 - 14.8 Seconds 06/05/2024 9:38 AM CDT [facility] INR 1.1 See Comment 06/05/2024 9:38 AM [facility] Comment:The suggested therap eutic range for standard coumadin (warfarin) therapy is an INR of 2.0-3.0. For high-risk patients (Mechanical Mitral Valve Prosthesis, etc.), the suggested prophylactic therapeutic range is an INR of 2.5-3.5. Blood BLOOD SPECIMEN / Unknown Lab Venipuncture / Unknown 06/05/2024 9:14 AM CDT 06/05/2024 9:24 AM CDT Asmita Pearson MD LAB - COAGULATION ORDERABLES Fi nal Result Performing Organization Address City/[facility]/ZIP Co de Phone Number [facility]ORY [facility] [address] [place] [address], [facility] [phone] * CULTURE BLOOD (06/05/2024 9:14 AM CDT) Only the most recent of2 resultswithin the time period is included. Culture No growth day 5 [place] 06/10/2024 1:00 PM CDT [facility] MICROBIOLOGY Blood PERIPHERAL BLOOD / Unknown Lab Venipuncture / Unknown 06/05/2024 9:14 AM CDT 06/05/2024 9:23 AM CDT Asmita Pearson MD LAB - MICROBIOLOGY ORDERABLES F inal Result Performing Organization Address [facility] Co de Phone Number [facility] MICROBIOLOGY [address] [place] [address], [facility] [phone] * EKG 12-LEAD (06/04/2024 6:53 PM CDT) Ventricular Rate 70 BPM [facility] MUSE Atrial Rate 70 BPM [facility] MUSE P-R Interval 158 ms [facility] MUSE QRS Duration ms 90 ms [facility] MUSE Q-T Interval ms 418 ms [facility] MUSE QTC Calculation (Bezet) 451 ms [facility] MUSE Calculated P [place] 31 degrees [facility] MUSE Calculated R [place] -33 degrees [facility] MUSE Calculated T [place] 33 degrees H MUSE Interpretation EKG NORMAL SINUS RHYTHM LEFT AXIS DEVIATION ABNORMAL ECG NO PREVIOUS ECGS AVAILABLE Confirmed by ELIEL MAN, BJORN ([id number]) on 06/07/2024 9:47:31 AM [facility] MUSE 06/04/2024 6:53 PM CDT 06/07/2024 9:47 AM CDT Asmita Pearson MD ECG ORDERABLES Edited Result - Final Performing Organization Address [facility] Co de Phone Number [facility] MUSE from Last 3 Months Additional Health Concerns Infection Onset Date Last Indicated MRSA 06/07/2024 06/07/2024 Insurance [employer] MED[employer]ARE ADV SELF PAY NO INSURANCE Member Subscriber Plan / Payer (Ef fective for All Dates) Name:Evan Menon Member ID:Not on file Relation to Subscriber:Not on file Name:EMORYEVAN SHARPE Subscriber ID:Not on file (Home) Address: [address] [place] [id number] Payer ID:Not on file Group ID:Not on file Type:Self Pay Address: [place], [place] Advance Directives * Full Code (Latest Code Status on File) Date Activated Date Inactivated Comments 06/04/2024 6:21 PM 06/14/2024 2:19 PM Care Teams Field Traffic Investigator Relationship Specialty Start Date End Date Ibrahima Bird MD [address] [place] [id number] PCP - General Family Medicine 06/24/24
--- OUTSIDE RECORDS SUMMARY | 2024-08-30 19:30 | XMS_ITS ---
Author Organization [facility] Address [address] [id number] Care Team Providers Care Service Center Representative Name Role Phone MICHELLE MOCTEZUMA Primary Care Provider Allergies Allergen (clinical drug ingredient) Drug/Non Drug Allergy documented on EMR Reaction Allergy Type Onset Date Status Keflex Unknown Drug Allergy Active nickel Nickel Unknown Allergy Active REASON FOR VISIT chart prep Medications Medication SIG (Take, Route, Frequency, Duration) Notes Start Date End Date Status hydroCHLOROthiazide 25 MG Tablet 1 tablet in the morning Orally Once a day Active Gabapentin 300 MG Capsule 2 capsule Oral ly three times daily Active Benzonatate 100 MG Capsule 1 capsule as needed Orally every 6 hours Active Ferrous Sulfate 325 (65 Fe) MG Tablet 1 tablet Orally once daily Active Lasix 40 MG Tablet 1 tablet Orally Once a day Active Lidocaine 4 % Gel 1 application Externally once daily Active Lisinopril 40 MG Tablet 1 tablet Orally Once a day Active Aspirin 325 MG Tablet 1 tablet Orally On ce a day Active Tylenol 8 Hour 650 MG Tablet Extended Release 1 tablet Orally twice a day Active amLODIPine Besylate 10 MG Tablet 1 tablet Orally Once a day Active Percocet 5-325 MG Tablet 1 tablet as nee ded Orally at bedtime daily Active Atorvastatin Calcium 20 MG Tablet 1 tablet Orally Once a day Active Social History Tobacco Use: Social History Observation Description Date Details (start date - stop date) Never Smoker NA - NA Social History Tobacco Use: Social Info Question Answer Notes Tobacco Control (Standard) Tobacco use: Nonsmoker Encounters Encounter Location Date Provider Diagnosis [facility] [address] [place] [address] 08/30/2024 MICHELLE MOCTEZUMA Plan Of Treatment No Information Progress Notes * Yovany LAECY:[birth year] (79 yo M)Acc No.[id number]:08/30/2024 Patient: Ludin CORBETT :1945 A ge:79 Y S ex:Male Address:[address] [place] [address], [address] Subjective: * Chief Complaints: * C johnson prep * Medical History: Intraspinal abscess and granuloma Candidiasis Methicillin resistant Staphylococcus aureus infection, unspecified site Acute gastric ulcer with perforation Acute kidney failure, unspecified Psoas muscle abscess Gastrostomy status Dysphagia, oropharyngeal phase Iron deficiency anemia due to chronic blood loss Peripheral vascular disease Essential (primary) hypertension Moderate protein-calorie malnutrition Primary osteoarthritis, unspecified wrist Retention of urine * Surgical History: NO PREVIOUS SURGERIES Surgical History verified. * Family History: F ather: diagnosed with Hypertension. F amily History Verified.. * Social History: T obacco Use: T obacco Control (Standard) T obacco use: N onsmoker. Social History Verified. * Medications: T akingPercocet 5-325 MG Tablet 1 tablet as needed Orally at bedtime daily Tylenol 8 Hour 650 MG Tablet Extended Release 1 tablet Orally twice a day Lisinopril 40 MG Tablet 1 tablet Orally Once a day Lidocaine 4 % Gel 1 application Externally once daily Lasix 40 MG Tablet 1 tablet Orally Once a day hydroCHLOROthiazide 25 MG Tablet 1 tablet in the morning Orally Once a day Gabapentin 300 MG Capsule 2 capsule Orally [...] 1 tablet Orally Once a day Taking Percocet 5-325 MG Tablet 1 tablet as needed Orally at bedtime daily Taking Tylenol 8 Hour 650 MG Tablet Extended Release 1 tablet Orally twice a day Taking Lisinopril 40 MG Tablet 1 tablet Orally Once a day Taking Lidocaine 4 % Gel 1 application Externally once daily Taking Lasix 40 MG Tablet 1 tablet Orally Once a day Taking hydroCHLOROthiazide 25 MG Tablet 1 tablet in the morning Orally Once a day Taking Gabapentin 300 MG Capsule 2 capsule [...] Tablet 1 tablet Orally Once a day DiscontinuedhydrOXYzine HCl 25 MG Tablet 1 tablet as needed Orally every 8 hours Vancomycin HCl 750 MG Solution Reconstituted 750 mg Intravenous once daily Saline Flush 0.9 % Solution 1 unit Intravenous twice daily Heparin Lock Flush 100 UNIT/ML Solution 5 mL Injection once daily Discontinued hydrOXYzine HCl 25 MG Tablet 1 tablet as needed Orally every 8 hours Discontinued Vancomycin HCl 750 MG Solution Reconstituted 750 mg Intravenous once daily Discontinued Saline Flush 0.9 % Solution 1 unit Intravenous twice daily Discontinued Heparin Lock Flush 100 UNIT/ML Solution 5 mL Injection once daily * Allergies: Ronald Tongergies Verified. * true * Date: Generated for Shelton shell/Damián/Moses on: 0 08/30/2024 07:30 PM CDT
--- OUTSIDE RECORDS SUMMARY | 2024-08-30 19:31 | XMS_ITS | Encounter Summary ---
Author Organization [facility] Address [address] [facility] [place] [address] Care Team Providers Care Store Hand Name Role Phone Ibrahima Bird MD Primary Care Provider + Encounter Details Date Type Department Care Team (Late st Contact Info) Description 08/30/2024 10:43 AM CDT Hospital Encounter [facility] OP DRAW STATION [address] [place] [id number] Vish Antonio MD [address] [place] [address] Social History Tobacco Use Types Packs/Day Years Used Date Smoking Tobacco: Never Smokeless Tobacco: Never Alcohol Use Standard Drinks/Week Comments Never 0 [...] Recorded Patient Health Questionnaire-2 Score 0 07/21/2024 [facility] [place] of Occupat ional Health - Occupational Stress [...] any time in the past 12 m [facility], were you homeless or living in a retirement (including now)? 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 Answer Date of Assessment Author No 06/04/2024 5:14 PM Pam Monge RN * Is person blind or have serious difficulty seeing? Answer Date of Assessment Author No 06/04/2024 5:14 PM CDT Pam Lombardi RN * Does person have serious difficulty walking/climbing stairs? Answer Date of Assessment Author Yes 06/04/2024 5:14 PM Pam Monge RN * Does person have difficulty dressing/bathing? Answer Date of Assessment Author No 06/04/2024 5:14 PM Pam Monge RN * Does person have difficulty doing errands alone? Answer Date of Assessment Author No 06/04/2024 5:14 PM CDT Pam Dominguez RN documented as of this encounter Mental Status * Does person have difficulty concentrating/remembering/making decisions? Answer Entry Date Author No 06/04/2024 5:14 PM CDT Pam Lombardi RN documented in this encounter Plan of Treatment Not on [...] CDT Psoas abscess, right (HCC) MRSA bacteremia documented in this encounter Results * (ABNORMAL) C-REACTIVE PROTEIN (08/30/2024 11:08 AM CDT) C-Reactive Protein 8.6(H) <=0.5 mg/dL 08/30/2024 12:34 PM CDT [facility] Blood BLOOD SPECIMEN / Unknown Lab Venipuncture / Unknown 08/30/2024 11:08 AM CDT 08/30/2024 11:48 AM CDT us Thalia Pichardo PA-C LAB - CHEMISTRY ORDERABLES F inal Result [address] [address], [facility] [phone] * (ABNORMAL) ERYTHROCYTE SEDIMENTATION RATE (08/30/2024 11:08 AM CDT) Erythrocyte Sedimentation Rate Westergren 105(H) 0 - 20 MM/HR 08/30/2024 12:19 PM CDT [facility] Blood BLOOD SPECIMEN / Unknown Lab Venipuncture / Unknown 08/30/2024 11:08 AM CDT 08/30/2024 11:52 AM CDT Thalia Pichardo PA-C LAB - HEMATOLOGY ORDERABLES Final Result [facility] [address] [place] [address], [facility] [phone] * (ABNORMAL) COMPREHENSIVE METABOLIC PANEL (08/30/2024 11:08 AM CDT) BUN 54(H) 7 - 26 mg/dL 08/30/2024 [...] 25(H) 7 - 23 08/30/2024 12:34 PM [facility] Osmolality Calculated 291 275 - 295 mOsm/kg 08/30/2024 12:34 PM [facility] Albumin/Globulin Ratio 0.9(L) 1.1 - 2.3 08/30/2024 12:34 PM [facility] eGFR by CKD-EPI 31(L) >=90 mL/min/1.7 3 m2 08/30/2024 12:34 PM [facility] Comment:Estimated Glomerular Filtration Rate (eGFR) calculated using the CKD-EPI Creatinine Equation (2020), per the National Kidney Foundation and [place] [employer] of Nephrology recommendations. Blood BLOOD SPECIMEN / Unknown Lab Venipuncture / Unknown 08/30/2024 11:08 AM CDT 08/30/2024 11:48 AM T us Thalia Pichardo PA-C LAB - CHEMISTRY ORDERABLES F inal Result [facility] [address] [place] [address], [facility] [phone] * (ABNORMAL) CBC W/ DIFFERENTIAL (08/30/2024 11:08 AM CDT) WBC 8.6 4.0 - 10.7 x10E9/L 08/30/2024 [...] 0.00 - 0.13 x10E9/L 08/30/2024 12:06 PM CDT [facility] Blood BLOOD SPECIMEN / Unknown Lab Venipuncture / Unknown 08/30/2024 11:08 AM CDT 08/30/2024 11:52 AM CDT Thalia Pichardo PA-C LAB - HEMATOLOGY ORDERABLES Final Result Performing Organization Address [facility] Co de Phone Number [address] [address], [facility] [phone] documented in this encounter Visit Diagnoses Diagnosis Psoas abscess, right (HCC) Psoas muscle abscess MRSA bacteremia Bacteremia documented in this encounter Additional Health Concerns Infection Onset Date Last Indicated Resolved Time MRSA 06/07/2024 06/07/2024 documented as of this encounter Care Teams Store Hand Relationship Specialty Start Date End Date Ibrahima Bird MD [address] [place] [id number] PCP - General Family Medicine 06/24/24 documented as of this encounter
--- OUTSIDE RECORDS SUMMARY | 2024-08-30 19:31 | XMS_ITS | Encounter Summary ---
Author Organization [facility] Address [facility] [place] [address] Care Team Providers Care Manager Fiber Name Role Phone Jayden Dykes DO Primary Care Provider [phone] Encounter Details Date Type Department Care Team (Late st Contact Info) Description 08/28/2024 Orders Only [facility] [address] [place] [address] Jayden Dykes DO [address] [place] [address] Social History Tobacco Use Types Packs/Day Years Used Date Smoking Tobacco: Never Assessed Sex and Gender Information Value Date Recorded Sex Assigned at Male 06/17/2024 10:29 AM CDT Legal Sex Male 7:06 AM CDT Gender Identity Not on file Sexual Orientation Not on file documented as of this encounter Plan of Treatment Pending Results Name Type Priority Associated Diagnoses Date /Time URINE BACTERIA CULTURE Microbiology Routine Urinary tract infection 08/28/2024 4:30 AM CDT documented as of this encounter Results * (ABNORMAL) URINALYSIS, AUTO, COMPLETE (08/28/2024 4:30 AM CDT) COLOR (U) YELLOW 08/28/2024 10:16 AM CDT [facility] TRANSPARENCY TURBID 08/28/2024 10:16 AM CDT [facility] SPECIFIC GRAVITY (U) <1.005 1.000 - 1.030 08/28/2024 10:16 AM CDT [facility] U PH 8.0 5.0 - 9.0 08/28/2024 10:16 AM CDT [facility] LEUKOCYTES (U) 3+(A) NEGATIVE 08/28/2024 10:16 AM CDT [facility] NITRITES POSITIVE(A) NEGATIVE 08/28/2024 10:16 AM T [facility] PROTEIN RANDOM (U) 2+(A) NEGATIVE 08/28/2024 10:16 AM CDT [facility] GLUCOSE (U) NEGATIVE NEGATIVE 08/28/2024 10:16 AM CDT [facility] KETONES MG/DL (U) NEGATIVE NEGATIVE 08/28/2024 10:16 AM CDT [facility] BILIRUBIN (U) NEGATIVE NEGATIVE 08/28/2024 10:16 AM T [facility] BLOOD (U) 2+(A) NEGATIVE 08/28/2024 10:16 AM CDT [facility] WBC/HPF 25-50 0 - 5 /HPF 08/28/2024 10:16 AM CDT [facility] RBC/HPF 0-5 0 - 5 /HPF 08/28/2024 10:16 AM CDT [facility] EPI/HPF RARE /HPF 08/28/2024 10:16 AM T [facility] BACTERIA (U) MANY /HPF 08/28/2024 10:16 AM T [facility] URINE CABRERA WBC CLUMPS PRESENT 08/28/2024 10:16 AM T [facility] URINE SPECIMEN OBTAINED BY CLEAN CATCH PROCEDURE / Unknown 08/28/2024 4:30 AM CDT us Jayden Dykes DO URINE ORDERABLES Final Result [facility] [address] [place] [address], [place] [phone] documented in this encounter Visit Diagnoses Diagnosis Urinary tract infection- Primary Urinary tract infection, site not specified documented in this encounter Care Teams Manager Fiber Relationship Specialty Start Date End Date Jayden Dykes DO PCP - General INTERNAL MEDICINE 06/15/24 documented as of this encounter
--- OUTSIDE RECORDS SUMMARY | 2024-08-30 19:31 | XMS_ITS | Continuity of Care Document ---
Author Organization [facility] Address [address] [facility] [address] [place] [address] Insurance Providers Payer Plan Claims Address Claims Phone Policy Number Group Number Relation Employer Guarantor Name Guarantor Guarantor Address Guarantor Phone [facility] [id number] Self Ludin Menon 1945 [address] [place] [address] [facility] [id number] Self Ludin Menon 1945 [address] [place] [address] [facility] [address], [place] [address] tel:[phone] Self Ludin Menon 1945 [address] [place] [address] Problems Condition ICD9 code ICD10 code SNOMED code Start Date End Date S tatus Anemia, unspecified D64.9 Impaired fasting glucose R73.01 Results No Results Allergies, adverse reactions, alerts No known allergies and adverse reactions Medications No administered medications reported Vital Signs No vital signs reported Social History No smoking Hx information available
--- OUTSIDE RECORDS SUMMARY | 2024-08-30 19:31 | XMS_ITS | Encounter Summary ---
Author Organization [facility] Address [facility] [place] [address] Care Team Providers Care Adhesive Bandage Machine Operator Name Role Phone Jayden Dykes DO Primary Care Provider [phone] Encounter Details Date Type Department Care Team (Latest Contact Info) Description 08/28/2024 9:56 AM CDT - 08/28/2024 11:59 PM CDT Hospital Encounter [facility] [address] [place] [address] Jayden Dykes DO [address] [place] [address] Discharge Disposition: Home or Self Care (Routine [...] AM CDT documented as of this encounter Procedures Procedure Name Priority Date/Time Associated Diagnosis Comments URINE BACTERIA CULTURE Routine 08/28/2024 4:30 AM CDT Urinary tract infection URINALYSIS, AUTO, COMPLETE Routine 08/28/2024 4:30 AM CDT Urinary tract infection documented in this encounter Results * (ABNORMAL) URINALYSIS, AUTO, COMPLETE (08/28/2024 4:30 AM CDT) COLOR (U) YELLOW 08/28/2024 10:16 AM CDT [facility] (H[facility] TRANSPARENCY TURBID 08/28/2024 10:16 AM T [facility] SPECIFIC GRAVITY (U) <1.005 1.000 - 1.030 08/28/2024 10:16 AM [facility] U PH 8.0 5.0 - 9.0 08/28/2024 10:16 AM [facility] LEUKOCYTES (U) 3+(A) NEGATIVE 08/28/2024 10:16 AM T [facility] NITRITES POSITIVE(A) NEGATIVE 08/28/2024 10:16 AM [facility] PROTEIN RANDOM (U) 2+(A) NEGATIVE 08/28/2024 10:16 AM [facility] GLUCOSE (U) NEGATIVE NEGATIVE 08/28/2024 10:16 AM [facility] KETONES MG/DL (U) NEGATIVE NEGATIVE 08/28/2024 10:16 AM [facility] BILIRUBIN (U) NEGATIVE NEGATIVE 08/28/2024 10:16 AM [facility] BLOOD (U) 2+(A) NEGATIVE 08/28/2024 10:16 AM [facility] WBC/HPF 25-50 0 - 5 /HPF 08/28/2024 10:16 AM [facility] RBC/HPF 0-5 0 - 5 /HPF 08/28/2024 10:16 AM [facility] EPI/HPF RARE /HPF 08/28/2024 10:16 AM [facility] BACTERIA (U) MANY /HPF 08/28/2024 10:16 AM [facility] URINE CABRERA WBC CLUMPS PRESENT 08/28/2024 10:16 AM [facility] URINE SPECIMEN OBTAINED BY CLEAN CATCH PROCEDURE / Unknown 08/28/2024 4:30 AM CDT us Jayden Dykes DO URINE ORDERABLES Final Result Performing Organization Address City/State/[facility] Co de Phone Number [facility] [address] [place] [address], [place] [phone] documented in this encounter Visit Diagnoses Diagnosis Urinary tract infection Urinary tract infection, site not specified documented in this encounter Care Teams Adhesive Bandage Machine Operator Relationship Specialty Start Date End Date Jayden Dykes DO PCP - General INTERNAL MEDICINE 06/15/24 documented as of this encounter
--- OUTSIDE RECORDS SUMMARY | 2024-08-30 19:31 | XMS_ITS | Encounter Summary ---
Author Organization [facility] Address [address] [address] Care Team Providers Care Oil Pipe Inspector Helper Name Role Phone Ibrahima Bird MD Primary Care Provider + Encounter Details Date Type Department Care Team (Late st Contact Info) Description 08/30/2024 8:57 AM CDT Hospital Encounter [facility] DIAGNOSTIC RAD [facility] [address] [facility] [place] [address] Vish Antonio MD [address] [place], [place] [id number] Social History Tobacco Use Types Packs/Day Years [...] Recorded Patient Health Questionnaire-2 Score 0 07/21/2024 [facility] [place] of Occupat ional Health - Occupational Stress [...] any time in the past 12 m [facility], were you homeless or living in a longterm (including now)? 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 Answer Date of Assessment Author No 06/04/2024 5:14 PM JENNAT Pam Lombardi RN * Is person blind or have serious difficulty seeing? Answer Date of Assessment Author No 06/04/2024 5:14 PM CDT Pam Lombardi RN * Does person have serious difficulty walking/climbing stairs? Answer Date of Assessment Author Yes 06/04/2024 5:14 PM JENNAT Pam Lombardi RN * Does person have difficulty dressing/bathing? Answer Date of Assessment Author No 06/04/2024 5:14 PM JENNAT Pam Lombardi RN * Does person have difficulty doing errands alone? Answer Date of Assessment Author No 06/04/2024 5:14 PM CDT Pam Lombardi RN documented as of this encounter Mental Status * Does person have difficulty concentrating/remembering/making decisions? Answer Entry Date Author No 06/04/2024 5:14 PM CDT Pam Lombardi RN documented in this encounter Plan of Treatment Not on file documented as of this encounter Procedures Procedure Name Priority Date/Time Associated Diagnosis Comments XR LUMBAR SPINE 2 OR 3VW Routine 08/30/2024 9:11 AM CDT Lumbar spine pain documented in this encounter Results * XR Lumbar Spine 2 or 3Vw (08/30/2024 9:11 AM CDT) Anatomical Region Laterality Modality Spine Computed Radiogr [...] DATE/TIME OF EXAM: 08/30/2024 9:11 AM, LOCATION [facility] INDICATION: M54.50: Lumbar spine pain ADDITIONAL CLINICAL [...] DATE/TIME OF EXAM: 08/30/2024 9:11 AM, LOCATION [facility] INDICATION: M54.50: Lumbar spine pain ADDITIONAL CLINICAL [...] Kevin Kim MD on 08/30/2024 10:25 AM us Vish Antonio MD DIAGNOSTIC IMAGING ORDERABLES Fi nal Result documented in this encounter Visit Diagnoses Diagnosis Lumbar spine pain Lumbago documented in this encounter Additional Health Concerns Infection Onset Date Last Indicated Resolved Time MRSA 06/07/2024 06/07/2024 documented as of this encounter Care Teams Oil Pipe Inspector Helper Relationship Specialty Start Date End Date Ibrahima Bird MD [address] [address] PCP - General Family Medicine 06/24/24 documented as of this encounter
--- OUTSIDE RECORDS SUMMARY | 2024-08-30 19:31 | XMS_ITS | Encounter Summary ---
Author Organization [facility] Address [address] [facility] [place] [address] Care Team Providers Care Scrub Technician Name Role Phone Ibrahima Bird MD Primary Care Provider + Encounter Details Date Type Department Care Team (Latest Contact Info) Description 08/30/2024 Travel Social History Tobacco Use Types Packs/Day Years [...] Recorded Patient Health Questionnaire-2 Score 0 07/21/2024 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 Answer Date of Assessment Author No 06/04/2024 5:14 PM CDT Pam Lombardi RN * Is person blind [...] No 06/04/2024 5:14 PM Pam Monge RN documented as of this encounter Mental Status * Does person have difficulty concentrating/remembering/making decisions? Answer Entry Date Author No 06/04/2024 5:14 PM CDT Ghebremes kassie, Pam, RN documented in this encounter Plan of Treatment Not on file documented as of this encounter Visit Diagnoses Not on filedocumented in this encounter Additional Health Concerns Infection Onset Date Last Indicated Resolved Time MRSA 06/07/2024 06/07/2024 documented as of this encounter Care Teams Scrub Technician Relationship Specialty Start Date End Date Ibrahima Bird MD [address] [address] PCP - General Family Medicine 06/24/24 documented as of this encounter
--- OUTSIDE RECORDS SUMMARY | 2024-08-30 19:31 | XMS_ITS | Clinical Summary ---
Author Organization [facility] Address [address] [place] [address] Care Team Providers Care Weapons And Tactics Instructor Name Role Phone Jayden Dykes DO Primary Care Provider [phone] Encounters Date Type Department Care Team Description 08/28/2024 9:56 AM CDT - 08/28/2024 11:59 PM CDT Hospital Encounter [facility] [address] [place] [address] Jayden Dykes DO Discharge Disposition: Home or Self Care (Routine Discharge) 08/28/2024 Orders Only [facility] [address] [place] [id number] Jayden Dykes DO 08/17/2024 7:15 PM CDT - 08/17/2024 11:59 PM CDT Hospital Encounter [facility] [address] [place] [address] Jayden Dykes DO Discharge Disposition: Home or Self Care (Routine Discharge) 08/17/2024 Orders Only [facility] [address] [place] [address] Jayden Dykes DO 08/10/2024 2:50 PM CDT - 08/10/2024 11:59 PM CDT Hospital Encounter [facility] [address] [place] [address] Jayden Dykes DO Discharge Disposition: Home or Self Care (Routine Discharge) 08/10/2024 Orders Only [facility] [address] [place] [address] Jayden Dykes DO 08/03/2024 7:13 AM CDT - 08/03/2024 11:59 PM CDT Hospital Encounter [facility] [address] [place] [address] Jayden Dykes, DO Discharge Disposition: Home or Self Care (Routine Discharge) 08/03/2024 Orders Only [facility] [address] [place] [address] Jayden Dykes DO 07/28/2024 3:41 PM CDT - 07/28/2024 11:59 PM CDT Hospital Encounter [facility] [address] [place] [address] Jayden Dykes, DO Discharge Disposition: Home or Self Care (Routine Discharge) 07/28/2024 Orders Only [facility] [address] [place] [id number] Jayden Dykes DO 07/27/2024 12:04 PM CDT - 07/27/2024 11:59 PM CDT Hospital Encounter [facility] [address] [place] [address] Jayden Dykes, DO Discharge Disposition: Home or Self Care (Routine Discharge) 07/27/2024 Orders Only [facility] [address] [place] [phone] Jayden Dykes DO 07/25/2024 12:08 PM CDT - 07/25/2024 11:59 PM CDT [facility] [address] [place] [address] Jayden Dykes DO Discharge Disposition: Home or Self Care (Routine Discharge) 07/25/2024 Orders Only [facility] [address] [place] [id number] Jayden Dykes DO 07/22/2024 3:10 PM CDT - 07/22/2024 11:59 PM CDT Hospital Encounter [facility] [address] [place] [address] Jayden Dykes, DO Discharge Disposition: Home or Self Care (Routine Discharge) 07/22/2024 Orders Only [facility] [address] [place] [address] Jayden Dykes, 07/20/2024 11:32 AM CDT - 07/20/2024 11:59 PM CDT Hospital Encounter [facility] [address] [place] [address] Jayden Dykes, DO Discharge Disposition: Home or Self Care (Routine Discharge) 07/20/2024 Orders Only [facility] [address] [place] [address] Jayden Dykes, 07/18/2024 10:42 AM CDT - 07/18/2024 11:59 PM CDT Hospital En[facility] [address] [place] [address] Jayden Dykes, DO Discharge Disposition: Home or Self Care (Routine Discharge) 07/18/2024 Orders Only [facility] [address] [place] [address] Jayden Dykes, 07/13/2024 3:21 PM CDT - 07/13/2024 11:59 PM CDT Hospital Encounter [facility] [address] [place] [address] Jayden Dykes, DO Discharge Disposition: Home or Self Care (Routine Discharge) 07/13/2024 Orders Only [facility] [address] [place] [address] Jayden Dykes, 07/06/2024 12:15 PM CDT - 07/06/2024 11:59 PM CDT Hospital Encounter [facility] [address] [place] [address] Jayden Dykes, DO Discharge Disposition: Home or Self Care (Routine Discharge) 07/06/2024 Orders Only [facility] [address] [place] [address] Jayden Dykes, 06/30/2024 7:02 AM CDT - 06/30/2024 11:59 PM CDT Hospital Encounter [facility] [address] [place] [address] Jayden Dykes, DO Discharge Disposition: Home or Self Care (Routine Discharge) 06/30/2024 Orders Only [facility] [address] [place] [address] Jayden Dykes DO 06/29/2024 12:43 PM CDT - 06/29/2024 11:59 PM CDT Hospital Encounter [facility] [address] [place] [address] Jayden Dykes, DO Discharge Disposition: Home or Self Care (Routine Discharge) 06/29/2024 Orders Only [facility] [address] [place] [address] Jayden Dykes DO 06/22/2024 11:16 AM CDT - 06/22/2024 11:59 PM CDT Hospital Encounter [facility] [address] [place] [address] Jayden Dykes, DO Discharge Disposition: Home or Self Care (Routine Discharge) 06/22/2024 Orders Only [facility] [address] [place] [address] Jayden Dykes DO 06/18/2024 11:44 AM CDT - 06/18/2024 11:59 PM CDT Hospital Encounter [facility] [address] [place] [address] Jayden Dykes, Discharge Disposition: Home or Self Care (Routine Discharge) 06/18/2024 Orders Only [facility] [address] [place] [address] Jayden Dykes DO 06/15/2024 7:06 AM CDT - 06/15/2024 11:59 PM CDT Hospital Encounter [facility] [address] [place] [address] Jayden Dykes, DO Discharge Disposition: Home or Self Care (Routine Discharge) 06/15/2024 Orders Only [facility] [address] [place] [address] Jayden Dykse DO from Last 3 Months Social History [...] 08/28/2024 4:30 AM CDT Urinary tract infection COMPREHENSIVE METABOLIC PANEL Routine 08/17/2024 6:00 PM CDT MRSA (methicillin resistant staph aureus) culture positive Abnormal blood chemistry CK (CPK) Routine 08/17/2024 6:00 PM CDT MRSA (methicillin resistant staph aureus) culture positive Abnormal blood chemistry CBC W/DIFF AUTOMATED Routine 08/17/2024 6:00 PM CDT MRSA (methicillin resistant staph aureus) culture positive Abnormal blood chemistry SED RATE, ERYTHROCYTE (ESR) Routine 08/17/2024 6:00 PM CDT MRSA (methicillin resistant staph aureus) culture positive Abnormal blood chemistry HEMOGLOBIN, GLYCOSYLATED Routine 08/17/2024 6:00 PM CDT MRSA (methicillin resistant staph aureus) culture positive Abnormal blood chemistry C-REACTIVE PROTEIN Routine 08/17/2024 6: 00 PM CDT MRSA (methicillin resistant staph aureus) culture positive Abnormal blood chemistry C-REACTIVE PROTEIN, HIGH SENSI Routine 08/17/2024 6:00 PM CDT MRSA (methicillin resistant staph aureus) culture positive Abnormal blood chemistry COMPREHENSIVE METABOLIC PANEL Routine 08/10/2024 1:20 PM [...] anticoagulant Routine general medical examination at a [facility] VANCOMYCIN TROUGH Routine 06/29/2024 10: 22 AM CDT Intraspinal abscess (HHS/HCC) VANCOMYCIN TROUGH Routine 06/22/2024 9:3 0 AM CDT Long-term current use of high risk medication other than anticoagulant Routine general medical examination at a [facility] VANCOMYCIN TROUGH Routine 06/18/2024 10: 50 AM CDT Long-term current use of high risk medication other than anticoagulant COMPREHENSIVE METABOLIC PANEL Routine 06/15/2024 5:45 AM CDT Routine general medical examination at a [facility] LIPID PANEL Routine 06/15/2024 5:45 AM CDT Routine general medical examination at a [facility] facility CBC W/DIFF AUTOMATED Routine 06/15/2024 5:45 AM CDT Routine general medical examination at a [facility] from Last 3 Months Results * (ABNORMAL) URINALYSIS, AUTO, COMPLETE (08/28/2024 4:30 AM CDT) COLOR (U) YELLOW 08/28/2024 10:[address] [facility] TRANSPARENCY TURBID 08/28/2024 10:[address] [facility] SPECIFIC GRAVITY (U) <1.005 1.000 - 1.030 08/28/2024 10:[address] [facility] U PH 8.0 5.0 - 9.0 08/28/2024 10:[address] [facility] LEUKOCYTES (U) 3+(A) NEGATIVE 08/28/2024 10:[address] [facility] NITRITES POSITIVE(A) NEGATIVE 08/28/2024 10:[address] [facility] PROTEIN RANDOM (U) 2+(A) NEGATIVE 08/28/2024 10:[address] [facility] GLUCOSE (U) NEGATIVE NEGATIVE 08/28/2024 10:[address] [facility] KETONES MG/DL (U) NEGATIVE NEGATIVE 08/28/2024 10:[address] [facility] BILIRUBIN (U) NEGATIVE NEGATIVE 08/28/2024 10:[address] [facility] BLOOD (U) 2+(A) NEGATIVE 08/28/2024 10:[address] [facility] WBC/HPF 25-50 0 - 5 /HPF 08/28/2024 10:[address] [facility] RBC/HPF 0-5 0 - 5 /HPF 08/28/2024 10:[address] [facility] EPI/HPF RARE /HPF 08/28/2024 10:[address] [facility] BACTERIA (U) MANY /HPF 08/28/2024 10:[address] [facility] URINE CABRERA WBC CLUMPS PRESENT 08/28/2024 10:[address] [facility] URINE SPECIMEN OBTAINED BY CLEAN CATCH PROCEDURE / Unknown 08/28/2024 4:30 AM CDT us Jayden Dykes DO URINE ORDERABLES Final Result [facility] [address] [place] [address], [place] [phone] * (ABNORMAL) HEMOGLOBIN, GLYCOSYLATED (08/17/2024 6:00 PM CDT) HGB A1C 5.7(H) <5.7 % 08/17/2024 7:[address] [facility] Comment: INCREASED RISK OF DIABETES <5.7% NON-DIABETES 5.7-6.4% INCREASED RISK FOR FUTURE DIABETES > OR = 6.5 CONSISTENT WITH DIABETES STANDARDS OF MEDICAL CARE IN DIABETES-2010 DIABETES CARE, 33(SUPP 1): S1-S61,2010 ESTIMATED AVG GLUCOSE 117 mg/dL 08/17/2024 7:[address] [facility] 08/17/2024 6:00 PM CDT us Jayden Dykes DO LABORATORY Final Result Performing Organization Address City/[facility]/ZIP Co de Phone Number [facility] [address] [place] [address], [place] [phone] * (ABNORMAL) SED RATE, ERYTHROCYTE (ESR) (08/17/2024 6:00 PM CDT) Only the most recent of7 resultswithin the time period is included. ESR 58(H) 0 - 20 MM/HR 08/17/2024 7:[address] [facility] 08/17/2024 6:00 PM CDT us Jayden Dykes DO LABORATORY Final Result [facility] [address] [place] [address], [place] [phone] * (ABNORMAL) COMPREHENSIVE METABOLIC PANEL (08/17/2024 6:00 PM CDT) Only the most recent of8 resultswithin the time period is included. [facility] GLUCOSE 143(H) 70 - 99 MG/DL 08/17/2024 7:39 PM [facility] BUN 41(H) 7 - 18 MG/DL 08/17/2024 7:39 PM [facility] CREATININE S/P/B 1.76(H) 0.7 - 1.3 MG/DL 08/17/2024 7:39 PM [facility] SODIUM S/P/B 135(L) 136 - 145 MMOL/L 08/17/2024 7:39 PM [facility] POTASSIUM S/P/B 4.5 3.5 - 5.1 MMOL/L 08/17/2024 7:39 PM [facility] CHLORIDE S/P/B 100 100 - 108 MMOL/L 08/17/2024 7:39 PM [facility] CO2 30.3 21 - 32 MMOL/L 08/17/2024 7:39 PM [facility] CALCIUM S/P/B 9.0 8.5 - 10.1 MG/DL 08/17/2024 7:39 PM [facility] BILIRUBIN TOTAL S/P/B 0.2 0.2 - 1.2 MG/DL 08/17/2024 7:39 PM [facility] TOTAL PROTEIN S/P/B 7.7 6.4 - 8.2 G/DL 08/17/2024 7:39 PM [facility] ALBUMIN S/P/B 3.4 3.4 - 5.0 G/DL 08/17/2024 7:39 PM [facility] AST 17 15 - 37 U/L 08/17/2024 7:39 PM [facility] ALT 17 16 - 60 U/L 08/17/2024 7:[address] [facility] ALKALINE PHOSPHATASE S/P/B 114 50 - 136 U/L 08/17/2024 7:[address] [facility] ANION GAP 4.7(L) 5 - 15 MMOL/L 08/17/2024 7:[address] [facility] BUN CREATININE RATIO 23.3 6 - 26 08/17/2024 7:[address] [facility] A/G RATIO 0.8(L) 1.0 - 2.0 RATIO 08/17/2024 7:[address] [facility] GFR ESTIMATE 39(L) >90 ML/MIN/1.7 3 M2 08/17/2024 7:[address] [facility] Comment: NOTE: eGFR is not calculated for patients <18 years of age. This is an estimated GFR calculation using the new CKD EPI creatinine equation without race and so does not require a correction factor for race. This estimated GFR should not be used for calculating drug doses. 08/17/2024 6:00 PM CDT us Jayden Dykes DO LABORATORY Final Result Performing Organization Address City/[facility] Co de Phone Number [facility] [address] [place] [address], [place] [phone] * (ABNORMAL) C-REACTIVE PROTEIN, HIGH SENSI (08/17/2024 6:00 PM CDT) Only the most recent of6 resultswithin the time period is included. HS-CRP 0.93(H) <0.3 mg/dL 08/18/2024 1:00 PM CDT [facility] 08/17/2024 6:00 PM CDT us Jayden Dykes DO LABORATORY Final Result Performing Organization Address City/[facility]/ZIP Co de Phone Number [facility] [address] [place] [address], * (ABNORMAL) C-REACTIVE PROTEIN (08/17/2024 6:00 PM CDT) Only the most recent of3 resultswithin the time period is included. Pathologist [facility] C-REACTIVE PROTEIN 1.08(H) <0.29 mg/dL 08/18/2024 1:09 PM CDT [facility] 08/17/2024 6:00 PM CDT us Jayden Dykes DO LABORATORY Final Result [facility] [address] [place] [address], * (ABNORMAL) CBC W/DIFF AUTOMATED (08/17/2024 6:00 PM CDT) Only the most recent of8 resultswithin the time period is included. [facility] WBC 8.43 4.4 - 11.0 x10'3/uL 08/17/2024 7:[address] [facility] RBC 3.35(L) 4.50 - 5.90 x10'6/uL 08/17/2024 7:[address] [facility] HGB 10.1(L) 14.0 - 17.5 G/DL 08/17/2024 7:[address] [facility] HCT 31.5(L) 41.5 - 50.4 % 08/17/2024 7:[address] [facility] MCV 94.0 80.0 - 96.0 FL 08/17/2024 7:[address] [facility] MCH 30.1 26.5 - 31.4 PG 08/17/2024 7:[address] [facility] MCHC 32.1 31.9 - 34.8 G/DL 08/17/2024 7:[address] [facility] RDW 15.4(H) 12.3 - 14.3 % 08/17/2024 7:[address] [facility] PLT 268 151 - 353 x10'3/uL 08/17/2024 7:[address] [facility] MPV 11.9 9.7 - 11.9 FL 08/17/2024 7:[address] [facility] RBC MORPHOLOGY NORMAL 08/17/2024 7:[address] [facility] PLT MORPH. NORMAL 08/17/2024 7:[address] [facility] WBC MORPHOLOGY NORMAL 08/17/2024 7:[address] [facility] LYMPHOCYTES % 17.3 15.8 - 45.0 % 08/17/2024 7:[address] [facility] NEUTROPHILS % 62.9 42.1 - 71.9 % 08/17/2024 7:[address] [facility] MONOCYTES % 7.7 5.7 - 12.5 % 08/17/2024 7:[address] [facility] EOSINOPHILS 10.9(H) 0.0 - 5.6 % 08/17/2024 7:[address] [facility] BASOPHILS 0.8 0.0 - 1.3 % 08/17/2024 7:[address] [facility] ABS. NEUTROPHILS 5.30 1.40 - 6.00 x10'3/uL 08/17/2024 7:[address] [facility] IMMATURE GRANS % 0.4 0.0 - 0.5 % 08/17/2024 7:[address] [facility] ABS. LYMPHOCYTES 1.46 0.80 - 4.70 x10'3/uL 08/17/2024 7:[address] [facility] 08/17/2024 6:00 PM CDT us Jayden Dykes DO LABORATORY Final Result Performing Organization Address City/[facility]/ZIP Co de Phone Number [facility] [address] [place] [address], [place] [phone] * CK (CPK) (08/17/2024 6:00 PM CDT) Only the most recent of4 resultswithin the time period is included. CPK 133 39 - 308 U/L 08/17/2024 7:[address] [facility] 08/17/2024 6:00 PM CDT us Jayden Dykes DO LABORATORY Final Result Performing Organization Address [facility] Co de Phone Number [facility] [address] [place] [address], [place] [phone] * CKMB(MB FRACTION ONLY) (08/10/2024 1:20 PM CDT) Only the most recent of2 resultswithin the time period is included. CK-MB 1.2 0.5 - 3.6 NG/ML 08/11/2024 4:56 PM CDT [facility] 08/10/2024 1:20 PM CDT us Jayden Dykes DO LABORATORY Final Result Performing Organization Address City/[facility]/ZIP Co de Phone Number [facility] [address] [place] [address], [place] [phone] * TROPONIN, QUANT (08/10/2024 1:20 PM CDT) Only the most recent of2 resultswithin the time period is included. [facility] TROPONIN I HIGH SENSITIVITY 5 0 - 75 ng/L 08/10/2024 3:[address] [facility] Comment: HIGH DOSES OF BIOTIN, TROPONIN-SPECIFIC AUTOANTIBODIES, AND ANTIBODY THERAPY CONTAINING HAMA MAY INTERFERE WITH THIS TEST RESULT. CORRELATION TO CLINICAL HISTORY AND PRESENTATION RECOMMENDED. 08/10/2024 1:20 PM CDT us Jayden Dykes DO LABORATORY Final Result Performing Organization Address [facility] Co de Phone Number [facility] [address] [place] [address], [place] [phone] * VANCOMYCIN TROUGH (07/25/2024 11:00 AM CDT) Only the most recent of7 resultswithin the time period is included. [facility] VANCOMYCIN TROUGH 17.9 10 - 20 MCG/ML 07/25/2024 12:[address] [facility] Comment: THERAPEUTIC: 10.0-20.0 TOXIC: >25.0 07/25/2024 11:0 0 AM CDT us Jayden Dykes DO LABORATORY Final Result Performing Organization Address City/[facility]/ZIP Co de Phone Number [facility] [address] [place] [address], [place] [phone] * (ABNORMAL) CBC, MANUAL DIFF (07/06/2024 10:35 AM CDT) [facility] WBC 8.10 4.4 - 11.0 x10'3/uL 07/06/2024 12:[address] [facility] RBC 2.95(L) 4.50 - 5.90 x10'6/uL 07/06/2024 12:[address] [facility] HGB 8.8(L) 14.0 - 17.5 G/DL 07/06/2024 12:[address] [facility] HCT 27.8(L) 41.5 - 50.4 % 07/06/2024 12:[address] [facility] MCV 94.2 80.0 - 96.0 FL 07/06/2024 12:[address] [facility] MCH 29.8 26.5 - 31.4 PG 07/06/2024 12:[address] [facility] MCHC 31.7(L) 31.9 - 34.8 G/DL 07/06/2024 12:[address] [facility] RDW 15.6(H) 12.3 - 14.3 % 07/06/2024 12:[address] [facility] PLT 268 151 - 353 x10'3/uL 07/06/2024 12:[address] [facility] MPV 11.9 9.7 - 11.9 FL 07/06/2024 12:[address] [facility] RBC MORPHOLOGY NORMAL 07/06/2024 12:[address] [facility] PLT MORPH. NORMAL 07/06/2024 12:[address] [facility] WBC MORPHOLOGY NORMAL 07/06/2024 12:[address] [facility] SEG NEUTROPHILS 63 42 - 72 % 12:[address] [facility] LYMPHOCYTES 22 15.8 - 45.0 % 07/06/2024 12:[address] [facility] MONOCYTES 6 5.7 - 12.5 % 07/06/2024 12:[address] [facility] EOSINOPHILS 9(H) 0 - 5.6 % 07/06/2024 12:[address] [facility] ABS. NEUTROPHILS 5.10 1.40 - 6.00 x10'3/uL 07/06/2024 12:[address] [facility] ABS. LYMPHOCYTES 1.78 0.80 - 4.70 x10'3/uL 07/06/2024 12:[address] [facility] 07/06/2024 10:3 5 AM CDT Jayden Dykes DO LABORATORY Final Result [facility] [address] [place] [address], [place] [phone] * (ABNORMAL) WBC WI DIFFERENTIAL (06/30/2024 5:40 AM CDT) Pathologist [facility] WBC 7.96 4.50 - 11.00 x10'3/uL 06/30/2024 7:30 AM CDT [facility] DIFFERENTIAL TYPE MANUAL DIFFERENTIAL 07/01/2024 6:21 AM CDT [facility] SEG NEUTROPHILS 71 % 12:03 PM CDT [facility] LYMPHOCYTES 21 % 06/30/2024 12:03 PM CDT [facility] EOSINOPHILS 6 % 06/30/2024 12:03 PM CDT [facility] BASOPHILS 2 % 06/30/2024 12:03 PM CDT [facility] ABS. NEUTROPHILS 5.65 1.80 - 7.70 x10'3/uL 06/30/2024 12:03 PM CDT [facility] ABS. LYMPHOCYTES 1.67 1.00 - 4.80 x10'3/uL 06/30/2024 12:03 PM CDT [facility] ABS. EOSINOPHILS 0.48 0.04 - 0.54 x10'3/uL 06/30/2024 12:03 PM CDT [facility] ABS. BASOPHILS 0.16(H) 0.01 - 0.08 x10'3/uL 06/30/2024 12:03 PM CDT [facility] RBC MORPHOLOGY RBC MORPHOLOGY APPEARS NORMAL. SLIDE REVIEWED. 06/30/2024 12:03 PM CDT [facility] PLT EST. ADEQUATE 06/30/2024 12:03 PM CDT [facility] 06/30/2024 5:40 AM CDT Jayden Dykes DO LABORATORY Final Result [facility] [address] [place] [address], [address] [place] [address], [place] * (ABNORMAL) LIPID PANEL (06/15/2024 5:45 AM CDT) CHOLESTEROL 75 <200 MG/DL 06/15/2024 3:17 PM CDT [facility] TRIGLYCERIDES 105 <150 MG/DL 06/15/2024 3:17 PM CDT [facility] HDL 25(L) >40.0 MG/DL 06/15/2024 3:17 PM CDT [facility] LDL (CALCULATED) 29 <100 MG/DL 06/16/19 3:17 PM CDT [facility] NON HDL CHOLESTEROL 50 <130 MG/DL 06/15 3:17 PM CDT [facility] CHOL/HDL RATIO 3.0 0.0 - 4.5 06/15/2024 3:17 PM CDT [facility] VLDL CALCULATION 21 5 - 55 MG/DL 06/15/2024 3:17 PM CDT [facility] LIPID INTERPRETATION 06/15/2024 3:17 PM CDT [facility] Comment: [facility] REPORT RECOMMENDATIONS: ADULT CHILD LOW RISK: CHOLESTEROL <200 <170 TRIGLYCERIDE <150 --- HDL >=60 --- LDL <100 <110 BORDERLINE: CHOLESTEROL 200-239 170-199 TRIGLYCERIDE 150-199 --- HDL 40-59 --- LDL 100-159 110-129 HIGH RISK: CHOLESTEROL >=240 >=200 TRIGLYCERIDE >=200 --- HDL <40 --- LDL >=160 >=130 06/15/2024 5:45 AM CDT Jayden Dykes DO LABORATORY Final Result [facility] [address] [place] [address], [place] [phone] from Last 3 Months Insurance [facility] Care Teams Weapons [employer] Instructor Relationship Specialty Start Date End Date Jayden Dykes DO PCP - General INTERNAL MEDICINE 06/15/24
--- OUTSIDE RECORDS SUMMARY | 2024-08-30 19:31 | XMS_ITS | Encounter Summary ---
Author Organization [facility] Address [address] [place] [address] Care Team Providers Care Compliance Officer Name Role Phone Ibrahima Bird MD Primary Care Provider + Reason for Visit * Reason Onset Date Comments Results 08/30/2024 Encounter Details Date Type Department Care Team (Late st Contact Info) Description 08/30/2024 Telephone [facility]ious [facility] [address] [place] [phone] Thalia Pichardo PA-C [address] [place] [phone] Results Social History Tobacco Use Types Packs/Day Years [...] Recorded Patient Health Questionnaire-2 Score 0 07/21/2024 [facility] [place] of Occupat ional Health - Occupational Stress [...] any time in the past 12 m [facility], were you homeless or living in a fci (including now)? 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 Answer [...] Pam Lombardi RN documented in this encounter Miscellaneous Notes * Telephone Encounter - Thalia Pichardo PA-C - 08/30/2024 4:40 PM CDT Ludin Menon followed by ID for persistent MRSA bacteremia, psoas abscess, osteomyelitis discitis. Patient completed IV antibiotic therapy on 08/23/2024 after MRI pelvis showed resolution of psoas abscess. Had patient get repeat CBC w diff, CMP, ESR, CRP today 08/30/2024 (7 days off of antibiotics). Labs notable for : Creatinine 2.71 (baseline 1.7) GFR 31 BUN 54 CBC stable from previous with no leukocytosis. ESR 105 CRP 8.6 Spoke with Kathryn MCKEON) from [facility]. Advised that patient should got to local ER for evaluation of RIC. Kathryn reported that patient has symptoms of UTI. Chronic odom catheter removed on 08/27. Patient hadsymptoms of dysuria and urgency, UA with culture collected on 08/28, culture has not yet returned. Elevated ESR and CRP not likely related to spine. More likely related to Urine. Still advised ER for RIC and evaluation of urinary symptoms. Will have ID clinic staff fax this phone encounter with lab results to [phone], attarturo Peralta. KRISTYN Beck PA-C Division of Infectious Diseases Pager: [phone] ID Clinic ID Clinic documented in this encounter Plan of Treatment Not on file documented as of this encounter Visit Diagnoses Not on filedocumented in this encounter Additional Health Concerns Infection Onset Date Last Indicated Resolved Time MRSA 06/07/2024 06/07/2024 documented as of this encounter Care Teams Compliance Officer Relationship Specialty Start Date End Date Ibrahima Bird MD [address] [address] PCP - General Family Medicine 06/24/24 documented as of this encounter
--- OUTSIDE RECORDS SUMMARY | 2024-08-30 19:31 | XMS_ITS | Patient Health Record ---
Author Organization [facility] Address [address] [place] [phone] Care Team Providers Care Panel Edge Painter Name Role Phone MICHELLE MOCTEZUMA Primary Care Provider GANESH HILL Unavailable [phone] Fariha Bullock Unavailable [phone] Allergies Allergen (clinical drug ingredient) Drug/Non Drug Allergy documented on EMR Reaction Allergy Type Onset Date Status Keflex Unknown Drug Allergy Active nickel Nickel Unknown Allergy Active Results Component Value Reference Range Notes CBC Reviewed date:06/30/2024 10:15:53 AM Interpretation: Performing Lab: Notes/Report: Comp. Metabolic Panel (14) Reviewed date:06/30/2024 10:16:25 AM Interpretation: Performing Lab: Notes/Report: CBC Reviewed date:06/15/2024 08:57:37 AM Interpretation: Performing Lab: Notes/Report: Comp. Metabolic Panel (14) Reviewed date:06/15/2024 08:57:53 AM Interpretation: Performing Lab: Notes/Report: Vancomycin Trough, Serum Reviewed date:07/06/2024 02:37:22 PM Interpretation: Performing Lab: Notes/Report: CBC Reviewed date:07/06/2024 02:37:05 PM Interpretation: Performing Lab: Notes/Report: Comp. Metabolic Panel (14) Reviewed date:07/06/2024 02:37:53 PM Interpretation: Performing Lab: Notes/Report: Sedimentation Rate-[place] n Reviewed date:07/06/2024 02:36:46 PM Interpretation: Performing Lab: Notes/Report: Lipid Panel Reviewed date:06/15/2024 03:53:55 PM Interpretation: Performing Lab: Notes/Report: Reason For Referral No Information Medications Medication SIG (Take, Route, Frequency, Duration) Notes Start Date End Date Status Lasix 40 MG Tablet 1 tablet Orally Once a day Active Lidocaine 4 % Gel 1 application Externally once daily Active hydroCHLOROthiazide 25 MG Tablet 1 tablet in the morning Orally Once a day Active oxyCODONE-Acetaminophen 5-32 5 MG Tablet 1 tablet at bedtime Orally once a day 08/30/2024 Active Aspirin 325 MG Tablet 1 tablet Orally On ce a day Active Tylenol 8 Hour 650 MG Tablet Extended Release 1 tablet Orally twice a day Active Atorvastatin Calcium 20 MG Tablet 1 tablet Orally Once a day Active Lisinopril 40 MG Tablet 1 tablet Orally Once a day Active amLODIPine Besylate 10 MG Tablet 1 tablet Orally Once a day Active Gabapentin 300 MG Capsule 2 capsule Oral ly three times daily Active Benzonatate 100 MG Capsule 1 capsule as needed Orally every 6 hours Active Percocet 5-325 MG Tablet 1 tablet as nee ded Orally at bedtime daily Active Ferrous Sulfate 325 (65 Fe) MG Tablet 1 tablet Orally once daily Active Social History Tobacco Use: Social [...] Notes Problem Methicillin resistant Staphylococcus aureus infection (628470993) Methicillin resistant Staphylococcus aureus infection, unspecified site (A49.02) Active confirmed Problem Malnutrition of moderate degree (Louise: 60% to less than 75% of standard weight) (06260209) Moderate protein-calorie malnutrition (E44.0) Active confirmed Problem Localized, primary osteoarthritis of the wrist (365878892) Primary osteoarthritis, 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) Active confirmed Problem Osteomyelitis (04254664) Osteomyelitis, unspecified (M86.9) Active confirmed Problem Oropharyngeal dysphagia (81035799) Dysphagia, oropharyngeal phase (R13.12) Active confirmed Problem Gastrostomy present (653946119) Gastrostomy status (Z93.1) Active confirmed Problem Essential hypertension (80988875) Essential (primary) hypertension (I10) Active confirmed Problem Peripheral vascular disease (846477465) Peripheral vascular disease (I73.9) Active confirmed Problem Physical deconditioning (57556995909402) Physical deconditioning (R53.81) Active confirmed Problem Odom catheter present (Z97.8) Active confirmed Problem Iron deficiency anemia due to chronic blood loss (820449585) Iron deficiency anemia due to chronic blood loss (D50.0) Active confirmed Vital Signs Heart Rate 78 /min 08/25/2024 Temperature 97.5 degrees Fahrenheit 08/25/2024 Respiratory Rate 18 /min 08/25/2024 Oximetry 97 % 08/25/2024 Blood pressure diastolic 82 mm Hg 08/25/2024 Weight-kg 126.33 kg 08/16/2024 Blood pressure systolic 143 mm Hg 08/25/2024 Weight 278.5 lbs 08/16/2024 Encounters Encounter Location Date Provider Diagnosis [address] [address] 06/22/2024 [place] [address] 06/29/2024 Fariha Bullock Methicillin resistan t Staphylococcus aureus infection, unspecified site A49.02 ; Essential (primary) hypertension I10 and Primary osteoarthritis, unspecified wrist M19.[address] [address] 07/07/2024 GANESH HILL Methicillin resistan t Staphylococcus aureus infection, unspecified site A49.02 ; Essential (primary) hypertension I10 ; Primary osteoarthritis, unspecified wrist M19.039 ; Abscess, psoas K68.12 ; Acute gastric ulcer with perforation K25.1 and Urinary retention R33.[address] [address] 07/14/2024 Fariha Bullock Methicillin resistan t Staphylococcus aureus infection, unspecified site A49.02 ; Essential (primary) hypertension I10 ; Primary osteoarthritis, unspecified wrist M19.039 ; Physical deconditioning R53.81 and Odom catheter present Z97.[address] [address] 07/28/2024 Fariha Bullock Methicillin resistan t Staphylococcus aureus infection, unspecified site A49.02 ; Essential (primary) hypertension I10 ; Primary osteoarthritis, unspecified wrist M19.039 ; Physical deconditioning R53.81 and Odom catheter present Z97.[address] [address] 08/04/2024 Fariha Bullock Methicillin resistan t Staphylococcus aureus infection, unspecified site A49.02 ; Essential (primary) hypertension I10 ; Primary osteoarthritis, unspecified wrist M19.039 ; Physical deconditioning R53.81 and Odom catheter present Z97.[address] [address] 08/11/2024 Fariha Bullock Methicillin resistan t Staphylococcus aureus infection, unspecified site A49.02 ; Essential (primary) hypertension I10 ; Primary osteoarthritis, unspecified wrist M19.039 ; Physical deconditioning R53.81 and Odom catheter present Z97.[address] [address] 08/16/[address] [address] 08/25/2024 Fariha Bullock Methicillin resistan t Staphylococcus aureus infection, unspecified site A49.02 ; Essential (primary) hypertension I10 ; Primary osteoarthritis, unspecified wrist M19.039 ; Physical deconditioning R53.81 ; Odom catheter present Z97.8 and Osteomyelitis, unspecified M86.[address] [address] 06/14/[address] [address] 06/21/2024 MICHELLE MOCTEZUMA [address] [address] 06/23/[address] [address] 06/28/2024 Fariha Bullock [address] [address] 06/29/[address] [address] 07/06/2024 GANESH HILL [address] [address] 07/14/2024 Fariha Bullock [facility] [address] [place] [address] 07/26/2024 Fariha Bullock [facility] [address] [place] [address] 07/27/2024 Fariha Bullock [facility] [address] 08/01/2024 Fariha Bullock [facility] [address] [place] [address] 08/03/2024 MICHELLE MOCTEZUMA [facility] [address] [place] [address] 08/09/2024 Fariha Bullock [facility] [address] 08/16/2024 MICHELLE MOCTEZUMA [facility] [address] 08/23/2024 MICHELLE MOCTEZUMA [facility] [address] [id number] 08/27/2024 MICHELLE MOCTEZUMA [facility] [address] [place] [address] 08/29/2024 Fariha Bullock [facility] [address] 08/30/2024 MICHELLE MOCTEZUMA Assessments Encounter Date Diagnosis (ICD Code) Assessment [...] and infectious disease is drawing labs every Wednesday for review. 07/07/2024 Essential (primary) hypertension (ICD-10 [...] shortness of breath, new or worsening edema 08/25/2024 Methicillin resistant Staphylococcus aureus infection, unspecified site (ICD-10 - A49.02) Antibiotics complete. Follow with infectious disease next week at scheduled appointment 08/25/2024 Essential (primary) hypertension (ICD-10 - I10) Stable with current management Continue current medication Report persistent BP elevated greater than 140/90 Report new or worsening symptoms of h/a, dizziness, chest pain, shortness of breath, new or worsening edema 08/25/2024 Primary osteoarthritis, unspecified wrist (ICD-10 - M19.039) continue sheduled pain medication 08/11/2024 Primary osteoarthritis, unspecified wrist (ICD-10 - [...] assist with daily living activities as needed 08/25/2024 Physical deconditioning (ICD-10 - R53.81) Continue working with therapy as directed Continue to assist with daily living activities as needed 08/25/2024 Odom catheter present (ICD-10 - Z97.8) Voiding trial. Remove Odom catheter. If no urine within 6 hours, straight cath x 1. Try another 6 hours, if no voiding within the next 6 hours replace odom catheter. 08/11/2024 Odom catheter present (ICD-10 - Z97.8) [...] needed Monitor for urinary tract infection 08/04/2024 Odom catheter present (ICD-10 - Z97.8) Change odom catheter monthly or as needed Monitor for urinary tract infection 08/25/2024 Osteomyelitis, unspecified (ICD-10 - M86.9) PICC line, G tube removed. Antibiotics complete. Follow orthopedics and infectious disease scheduled appointment on August 30. 06/29/2024 Other Follow up in 1 week [...] Right to Privacy Practices with patient/family/c aregiver. 08/25/2024 Other Continue current treatment plan. Staff to continue to monitor and report any changes. Patient education provided and questions/concer ns addressed. Follow up in one week unless necessary sooner. Reviewed HIPAA Right to Privacy Practices with patient/family/c aregiver. Plan Of Treatment Next Appt Details Provider Name:Fariha Best rt, 08/30/2024 12:00:00 PM, [address] [place] [address], [phone], Insurance Providers Payer Name Payer Address Payer Phone Subscriber Number Group Number Insured Name Patient Relationship to Insured Coverage Start Date Coverage End Date [employer] Gold Advantage HMO [address] [place] [phone] [id number] Ludin Menon Self - patient is the [...]
--- OUTSIDE RECORDS SUMMARY | 2024-08-30 19:31 | XMS_ITS | Encounter Summary ---
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, were you homeless or living in a usp (including now)? No 06/04/2024 Sex and Gender Information Value Date Recorded Sex Assigned at Not on file Legal Sex Male 9:29 AM FULL TIME Gender Identity Not on file Sexual Orientation [...] on file documented as of this encounter Results * XR Lumbar Spine 2 or 3Vw (08/30/2024 9:11 AM CDT) Anatomical Region Laterality Modality Spine Computed Radiogr aphy 08/30/2024 10:0 9 AM CDT Impressions 08/30/2024 10:25 AM CDT IMPRESSION: Moderate to severe lumbar spondylosis again demonstrated. Report was dictated by John Marcano MD, ([facility] resident). I, Kevin Kim MD have personally reviewed and interpreted this examination/study. > Interpreting Provider: Kevin Kim MD on 08/30/2024 10:25 AM Narrative 08/30/2024 10:25 AM CDT PROCEDURE: XR LUMBAR SPINE 2 OR 3VW, DATE/TIME OF EXAM: 08/30/2024 9:11 AM, LOCATION [facility] INDICATION: M54.50: Lumbar spine pain ADDITIONAL CLINICAL [...] OF EXAM: 08/30/2024 9:11 AM, LOCATION [facility] INDICATION: M54.50: Lumbar spine pain ADDITIONAL CLINICAL [...] was dictated by John Marcano MD, ([facility] resident). I, Kevin Kim MD have personally reviewed and interpreted this examination/study. > Interpreting Provider: Kevin Kim MD on 08/30/2024 10:25 AM Vish Antonio MD DIAGNOSTIC IMAGING ORDERABLES Fi nal Result documented in this encounter Visit Diagnoses Diagnosis Lumbar spine pain- Primary Lumbago Lumbar spine pain Lumbago documented in this encounter Additional Health Concerns Infection Onset Date Last Indicated Resolved Time MRSA 06/07/2024 06/07/2024 documented as of this encounter Care Teams Metal Fitters And Machinists Relationship Specialty Start Date End Date Ibrahima Bird MD [address] [address] PCP - General Family Medicine 06/24/24 documented as of this encounter
--- OUTSIDE RECORDS SUMMARY | 2024-08-30 19:31 | XMS_ITS | Encounter Summary ---
Author Organization [facility] Address [address] [facility] [place] [address] Care Team Providers Care Care Asst Name Role Phone Ibrahima Bird MD Primary Care Provider + Reason for Visit * Reason Comments Low Back Pain right Encounter Details Date Type Department Care Team (Late st Contact Info) Description 08/30/2024 9:30 AM CDT Office Visit [facility] - Orthopedics [address] [place] [address], [facility] [place] [phone] Vish Antonio MD [address] [place] [phone] Arrived Social History Tobacco Use Types Packs/Day Years [...] Recorded Patient Health Questionnaire-2 Score 0 07/21/2024 [place] of Occupat ional Health - Occupational Stress [...] any time in the past 12 m [facility], were you homeless or living in a penitentiary (including now)? 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 Answer Date of Assessment Author No 06/04/2024 5:14 PM CDT Pam Lombardi RN documented as of this encounter Mental Status * Does person have difficulty concentrating/remembering/making decisions? Answer Entry Date Author No 06/04/2024 5:14 PM CDT Pam Lombardi RN documented in this encounter Patient Instructions * Patient Instructions* Lauren Andrade RN - 08/30/2024 10:28 AM CDT Ludin Menon 08/30/2024 Please contact our clinic call center at if you need to schedule or change an appointment. For medical emergencies please call 911. Please [address] Antonio's clinical specialist Fariha Moreira RN [phone] or through [employer] if you have any further questions or concerns. [facility] office contact information: [facility] [address] [place] [address], [place] [address] [facility] ([phone]) [address] [place] [id number] August 30, 2024 To Whom It May Concern: Please use this letter to document that Ludin Lynsey, : 1945, was in to see Vish Antonio MD on 08/30/2024. Thank you. Sincerely, Vish Antonio MD [facility] documented in this encounter Plan of Treatment Not on file documented as of this encounter Visit Diagnoses Not on filedocumented in this encounter Additional Health Concerns Infection Onset Date Last Indicated Resolved Time MRSA 06/07/2024 06/07/2024 documented as of this encounter Care Teams Care Asst Relationship Specialty Start Date End Date Ibrahima Bird MD [address] [place] [address] [address] [place] [address] PCP - General Family Medicine 06/24/24 documented as of this encounter
[2024-08-30 19:37] VITALS: BP 165/70; PULSE 85; RESP 21; TEMP 36.4; O2SAT 100
--- NOTE | 2024-08-30 19:39 | ED_ITS ---
HPI - Recheck/Abnormal Lab/Rx General Chief Complaint: Recheck/Abnormal Lab/Rx Stated Complaint: Abnormal Labs Time Seen by Provider: 08/30/24 19:29 History of Present Illness HPI narrative: 79-year-old male with history of chronic back pain, hypertension, hyperlipidemia, recent surgery for perforated abdominal viscus in April of this year requiring hospitalization and prolonged rehabilitation. Patient presents from his acute rehab [facility] for concerns of abnormal labs. Unclear the exact abnormal values but we were told by transport staff that he had ?renal failure? patient has a history of elevated creatinine and CKD here. Patient denies any complaints aside from some urinary issues. He states his Bowman catheter was removed several days ago and he has been having some burning with urination and a weak stream but denies any other complaints such as nausea, vomiting, abdominal pain, back pain, fever, chills, chest pain difficulty in breathing. He is doing well from a rehab standpoint states that he was actually going to be discharged over the weekend back home upon completion of his course. He had his PICC line removed last week and his Bowman catheter removed several days ago after he was completing all his antibiotics and treatment coarse. Patient denies any falls or injuries. Related Data Home Medications ?Medication ?Instructions ?Recorded ?Confirmed ?Last Taken ?Type aspirin 325 mg tablet 325 mg PO DAILY 09/13/21 08/30/24 08/30/24 History fexofenadine 180 mg tablet 180 mg PO DAILY PRN contact 09/13/21 08/31/24 Unknown History dermititis gabapentin 300 mg capsule 600 mg PO TID 12/20/21 08/30/24 08/30/24 History hydrochlorothiazide 25 mg tablet 25 mg PO DAILY 07/23/23 08/30/24 08/30/24 History amlodipine 10 mg tablet 10 mg PO DAILY 06/30/24 08/30/24 08/30/24 History benzonatate 200 mg capsule 200 mg PO TID 06/30/24 08/30/24 06/30/24 History ferrous sulfate 325 mg (65 mg 325 mg PO DAILY 08/30/24 08/30/24 08/30/24 History iron) tablet (Feosol) acetaminophen 325 mg tablet 650 mg PO BID 08/31/24 08/31/24 08/31/24 History (Tylenol) atorvastatin 20 mg tablet 20 mg PO QPM 08/31/24 08/30/24 08/29/24 History lidocaine 4 % topical cream 1 applic topical DAILY 08/31/24 08/31/24 08/31/24 History (Anecream) oxycodone-acetaminophen 5 mg-325 1 tablet PO QHS 08/31/24 08/31/24 08/30/24 History mg tablet (Percocet) Allergies Allergy/AdvReac Type Severity Reaction Status Date / Time cephalexin Allergy Severe Rash Verified 08/09/24 10:54 nickel Allergy Mild Other Verified 08/09/24 10:54 Review of Systems 2 Review of Systems: As reviewed above in HPI [facility] Past Medical History Medical History Uses feeding tube MRSA infection Perforated gastric ulcer (04/2024) Repair 05/03 PAD (peripheral artery disease) Acute perforated appendicitis Piriformis syndrome Trochanteric bursitis, right hip Lumbar stenosis Low Back Pain Arthritis Colon polyps (07/02/22) Umbilical hernia HTN (hypertension) Hypercholesterolemia Surgical History Surgical History History of abdominal surgery (04/2024) Repair perforated gastric ulcer History of appendectomy (06/2022) Perforated appemdix H/O Spinal surgery (1984) H/O umbilical hernia repair (2011) Hx of tonsillectomy Family History Family History Father Acute myocardial infarction Heart disease Alzheimer disease Mother Acute myocardial infarction Heart disease Alzheimer disease Social History Social History Social History: Code status: Full code; POLST signed 06/14/24 Surrogate decision maker: Erika () Smoking status: Never smoker Second hand tobacco smoke exposure: Yes Alcohol intake: former Alcohol use details: Occasional Substance use: never Substance use type: does not use Do You Feel Safe in your Home?: Yes Lack of Transportation: No Lack of Food: Never True Current Housing: I Have Housing Concerned About Future Housing: No Difficulty Paying Gas/Electric Bills: No Difficulty Paying for Meds: No Currently Unemployed: No Education: Master's Degree or Higher Difficulty w/ Childcare or Family Care: No Living arrangements: shelter Additional living arrangements comments: previously with family, currently rehab facility Occupation/Education: retired Gender identity (if verbalized by the patient): Male Spiritual care concerns: No Agree to blood products: Yes Exam 2 Narrative: GENERAL: [Well-appearing, well-nourished, and in no acute distress.] HEAD: [Normocephalic, atraumatic.] EYES: [PERRLA and EOMI.] ENT: Nares clear, no rhinorrhea or epistaxis. Mucous membranes moist. NECK: Supple. CHEST: [Clear to auscultation. No respiratory distress.] HEART: [Regular rate and rhythm]. No murmur heard. [Normal peripheral pulses.] ABDOMEN: [Soft, nondistended], [nontender], [No rigidity or guarding] EXTREMITIES: Normal range of motion. [No edema.] SKIN: Abdominal surgical scars otherwise warm dry and no rash NEURO: [No focal deficits]. Alert and oriented [x3.] PSYCH: [Normal mood and affect.] Course Vital Signs Vital signs: Vital Signs Temperature 36.4 C 08/30/24 19:37 Pulse Rate 85 08/30/24 19:37 Respiratory Rate 21 H 08/30/24 19:37 Blood Pressure 165/70 H 08/30/24 19:37 Pulse Oximetry 100 08/30/24 19:37 Oxygen Delivery Room Air 08/30/24 19:37 Temperature 36.6 C 08/31/24 06:00 Pulse Rate 67 08/31/24 06:00 Respiratory Rate 18 08/31/24 06:00 Blood Pressure 132/48 L 08/31/24 06:00 Pulse Oximetry 95 08/31/24 06:00 Oxygen Delivery Room Air 08/30/24 22:51 MDM - Recheck/Abnormal Lab/Rx MDM Narrative Medical decision making narrative: 79-year-old male with history of chronic back pain, hypertension, hyperlipidemia, recent surgery for perforated abdominal viscus in April of this year requiring hospitalization and prolonged rehabilitation. Patient presents from his acute rehab [facility] for concerns of abnormal labs. Unclear the exact abnormal values but we were told by transport staff that he had ?renal failure? patient has a history of elevated creatinine and CKD here. Patient denies any complaints aside from some urinary issues. He states his Bowman catheter was removed several days ago and he has been having some burning with urination and a weak stream but denies any other complaints such as nausea, vomiting, abdominal pain, back pain, fever, chills, chest pain difficulty in breathing. He is doing well from a rehab standpoint states that he was actually going to be discharged over the weekend back home upon completion of his course. He had his PICC line removed last week and his Bowman catheter removed several days ago after he was completing all his antibiotics and treatment coarse. Patient denies any falls or injuries. Patient is overall very well-appearing not any acute distress. No tachycardia, fever, hypoxia. Blood pressure mildly elevated but chronic. He has a soft nontender nondistended abdomen. Given concern for potential abnormal laboratory studies repeat labs were drawn here including CBC, CMP, magnesium and urinalysis ordered with his urinary peck complaints. Bladder scan ordered. Patient otherwise states he feels comfortable. Bowman catheter was inserted with relief of patient's urinary obstruction. Laboratory studies are normal without any leukocytosis or anemia worse than baseline. He does have evidence urinary tract infection given his allergy to Keflex he was started on ciprofloxacin. BUN and creatinine are elevated from baseline with acute kidney injury on chronic kidney disease. Elevated potassium but no urgent need to treat this as this is likely going to come down with fluid hydration which was provided. Repeat BMP obtained in the morning with improvement. Patient admitted to the hospitalist after I discussed with the patient and the family members the indications including acute on chronic kidney disease and urinary retention. Medical Records Attestation: I reviewed the patient's medical records. Lab Data Attestation: I reviewed the patient's lab results. 08/31/24 06:21 08/31/24 06:21 Labs: Lab Results 08/30/24 08/30/24 Range/Units 19:46 19:56 WBC 9.1 (4.5-10.0) K/mm3 RBC 3.31 L (4.6-6.20) M/mm3 Hgb 9.7 L (14.0-18.0) g/dL Hct 30.7 L (42.0-52.0) % MCV 92.7 (80-100) fl MCH 29.3 (26-34) pg MCHC 31.6 L (32-36) g/dl RDW 15.0 H (11.5-14.5) % Plt Count 239 (150-375) k/mm3 MPV 11.3 H (7.4-10.4) fl Immature Gran % (Auto) 0.4 (0-0.5) % Neut % (Auto) 67.1 (45.5-73.1) % Lymph % (Auto) 14.1 L (18.3-44.2) % [place] % (Auto) 10.0 H (2.6-8.5) % Eos % (Auto) 7.8 H (0-4.4) % Baso % (Auto) 0.6 (0.2-1.2) % Lymph # (Auto) 1.28 (0.9-3.2) K/mm3 [place] # (Auto) 0.9 H (0.1-0.6) K/mm3 Eos # (Auto) 0.7 H (0-0.3) K/mm3 Baso # (Auto) 0.1 (0.0-0.1) K/mm3 Abs Immat Gran (auto) 0.04 H (0.00-0.031) K/mm3 Absolute Neuts (auto) 6.1 (1.3-6.7) K/mm3 Absolute Nucleated RBC 0.000 (0.0-0.012) K/mm3 Nucleated RBC % 0.0 (0.0-0.2) % Sodium 133 L (137-145) mmol/L Potassium 5.1 H (3.4-5.0) mmol/L Chloride 97 L (98-107) mmol/L Carbon Dioxide 25 (22-30) mmol/L Anion Gap 11 (4-12) mmol/L BUN 58 H D (9-20) mg/dL Creatinine 2.51 H (0.7-1.3) mg/dL Estim Creat Clear Calc 27 ml/min Estimated GFR 25 L (59 - ) Glucose 89 (65-110) mg/dL Calcium 9.6 (8.4-10.2) mg/dL Magnesium 2.0 (1.6-2.3) mg/dL Total Bilirubin 0.2 (0.2-1.3) mg/dL AST 27 (17-59) U/L ALT 13 (6-50) U/L Alkaline Phosphatase 98 (38-126) U/L Total Protein 8.0 (6.3-8.2) g/dL Albumin 4.1 (3.5-5.1) g/dL Urine Color Yellow (Yellow) Urine Appearance Turbid H (Clear) Urine pH 8.0 (5.0-9.0) Ur Specific [place] 1.013 (1.001-1.035) Urine Protein 2+ H (Negative) mg/dL Urine Glucose (UA) Negative (Negative) mg/dL Urine Ketones Negative (Negative) mg/dL Ur Blood (Man) 1+ H (Negative) Urine Nitrate Positive H (Negative) Urine Bilirubin Negative (Negative) Urine Urobilinogen 0.2 (<2.0) mg/dL Leukocyte Esterase Rfl 3+ H (Negative) ELIZABETH/UL Urine RBC 3-5 H (0-2) /hpf Urine WBC >100 H (0-3) /hpf Ur Squamous Epith Cells None seen (Few) /hpf Urine Bacteria 4+ H /hpf Urine Casts 3-5 Discharge Plan Discharge Clinical Impression: Acute kidney injury superimposed on chronic kidney disease, Acute urinary retention, Acute dehydration Patient Disposition: Still a Patient Condition: Stable
[2024-08-30 19:42] VITALS: O2SAT 100
[2024-08-30] MEDS: ACETAMINOPHEN 500 MG TABLET 1000 MG PO (19:48)
[2024-08-30 19:51] LABS: Hematocrit 30.7 % (42.0-52.0); Hemoglobin 9.7 g/dL (14.0-18.0); Immature Granulocyte Percent A 0.4 % (0-0.5); Lymphocytes Absolute Auto 1.28 K/mm3 (0.9-3.2); Mean Corpuscular HGB Conc 31.6 g/dl (32-36); Mean Corpuscular Hemoglobin 29.3 pg (26-34); Mean Corpuscular Volume 92.7 fl (80-100); Nucleated Red Blood Cells Absolute Auto 0.000 K/mm3 (0.0-0.012); Nucleated Red Blood Cells Perc 0.0 % (0.0-0.2); Platelet Count Result 239 k/mm3 (150-375); Red Blood Count 3.31 M/mm3 (4.6-6.20); White Blood Count 9.1 K/mm3 (4.5-10.0)
[2024-08-30 20:04] LABS: Add Urine Microscopic? YES; Appearance Urine Turbid (Clear); Glucose Urine UA Negative (Negative); Leukocyte Esterase Ur 3+ LEU/UL (Negative); Nitrate Urine Positive (Negative); Specific Grav Ur 1.013 (1.001-1.035)
[2024-08-30 20:11] LABS: Alanine Aminotransferase 13 U/L (6-50); Albumin Level 4.1 g/dL (3.5-5.1); Alkaline Phosphatase 98 U/L (38-126); Anion Gap 11 mmol/L (4-12); Aspartate Amino Transferase 27 U/L (17-59); Bilirubin,Total 0.2 mg/dL (0.2-1.3); Blood Urea Nitrogen 58 mg/dL (9-20); Calcium 9.6 mg/dL (8.4-10.2); Carbon Dioxide 25 mmol/L (22-30); Chloride 97 mmol/L (98-107); Estimated CRCL calculation 27 ml/min; Estimated Glomerular Filt Rate 25; Glucose 89 mg/dL (65-110); Magnesium 2.0 mg/dL (1.6-2.3); Potassium 5.1 mmol/L (3.4-5.0); Sodium 133 mmol/L (137-145); Total Protein 8.0 g/dL (6.3-8.2)
[2024-08-30] MEDS: CIPROFLOXACIN 400 MG/D5W 200ML 200 ML 200 MG IVPB (21:44)
[2024-08-30] MEDS: LACTATED RINGERS 1,000 ML 999 ML IV CONT ×2 (21:44)
--- NOTE | 2024-08-30 21:44 | PC.NURSE ---
Per MD Araya we do not need to draw blood cultures before the start of IV antibiotics.
[2024-08-30 21:52] VITALS: BP 144/54; PULSE 83; RESP 18; O2SAT 98
[2024-08-30 22:45] VITALS: BP 122/48; PULSE 78; RESP 18; TEMP 36.6; O2SAT 97
[2024-08-30 22:51] VITALS: BMI 38.8
--- NOTE | 2024-08-30 23:06 | ADMGEN ---
This patient, Ludin Menon, was admitted to [facility] Surg Room 321-01. Patient/family oriented to hospital policies and general routines including ID bracelet, bed and alarms, visiting hours, pain management, procedures, bathroom and other care routines, personal items, smoking policy, room service/diet, and visiting hours. Information on how to activate the Rapid Response Team has been discussed. Patient/Family are encouraged to report perceived risks to care and to ask questions if they do not understand what they are told or what they should do.
[2024-08-30] MEDS: LACTATED RINGERS 1,000 ML 125 ML IV CONT (23:30)
[2024-08-31] VITALS (9 sets, daily range): BP systolic 112–132; BP diastolic 48–50; PULSE 67–113; RESP 16–18; TEMP 36.2–36.9; O2SAT 95–99
--- NOTE | 2024-08-31 06:08 | P.HP_ITS ---
H&P: HPI History of Present Illness Date/Time: 08/31/24 06:08 Chief Complaint: Abnormal renal function on labs Narrative: 79-year-old male with a past medical history of peripheral artery disease, chronic kidney disease stage IIIB, essential hypertension and complicated hospital stay April 2024 due to perforated viscus due to perforated gastric ulcer resulting in sepsis and bacteremia with secondary so as and prevertebral abscesses for which he was transferred to [facility] 06/06/2024 who presented to the ER from all home for a rehab center due to worsening renal function on outpatient labs. The patient had a Bowman catheter that was removed 3 or 4 days ago. Since the catheter had been removed he had been having difficulty with urination and was only voiding 30-50 mL at a time and was voiding frequently. In the ER postvoid residual was greater than 400. Bowman catheter was placed. UA was suspicious for UTI. Electrolyte panel confirmed acute on chronic kidney injury with mild hyperkalemia. Patient received 2 L IV fluid bolus and maintenance IV fluids and was admitted for further treatment. He was started on empiric antibiotic therapy with Cipro. Information was obtained from review of past medical records and ER physician report. The patient was only alert oriented to person, place and name of the current president. He thought the month was February and initially told me that the year was 1969 something then corrected himself to 2021. When prompted he he reported he felt better after catheter was placed. Otherwise patient fell asleep numerous times during my evaluation in did not provide much history. Review of Systems 2 Review of Systems: Limited to due to lethargy PMFSH Past Medical History Medical History Uses feeding tube MRSA infection Perforated gastric ulcer (04/2024) Repair 05/03 PAD (peripheral artery disease) Acute perforated appendicitis Piriformis syndrome Trochanteric bursitis, right hip Lumbar stenosis Low Back Pain Arthritis Colon polyps (07/02/22) Umbilical hernia HTN (hypertension) Hypercholesterolemia Surgical History Surgical History History of abdominal surgery (04/2024) Repair perforated gastric ulcer History of appendectomy (06/2022) Perforated appemdix H/O Spinal surgery (1984) H/O umbilical hernia repair (2011) Hx of tonsillectomy Family History Family History Father Acute myocardial infarction Heart disease Alzheimer disease Mother Acute myocardial infarction Heart disease Alzheimer disease Social History Social History Social History: Code status: Full code; POLST signed 06/14/24 Surrogate decision maker: Erika () Smoking status: Never smoker Second hand tobacco smoke exposure: Yes Alcohol intake: former Alcohol use details: Occasional Substance use: never Substance use type: does not use Do You Feel Safe in your Home?: Yes Lack of Transportation: No Lack of Food: Never True Current Housing: I Have Housing Concerned About Future Housing: No Difficulty Paying Gas/Electric Bills: No Difficulty Paying for Meds: No Currently Unemployed: No Education: Master's Degree or Higher Difficulty w/ Childcare or Family Care: No Living arrangements: custodial Additional living arrangements comments: previously with family, currently rehab facility Occupation/Education: retired Gender identity (if verbalized by the patient): Male Spiritual care concerns: No Agree to blood products: Yes Meds Home Medications and Allergies Home Medications ?Medication ?Instructions ?Recorded ?Confirmed ?Type aspirin 325 mg tablet 325 mg PO DAILY 09/13/21 08/30/24 History fexofenadine 180 mg tablet 180 mg PO DAILY PRN contact 09/13/21 08/31/24 History dermititis gabapentin 300 mg capsule 600 mg PO TID 12/20/21 08/30/24 History hydrochlorothiazide 25 mg tablet 25 mg PO DAILY 07/23/23 08/30/24 History lisinopril 40 mg tablet See Rx Instructions .Route 11/09/23 08/31/24 Rx .COMPLEX #90 tabs furosemide 40 mg tablet 40 mg PO QAM #90 tabs 02/03/24 08/30/24 Rx amlodipine 10 mg tablet 10 mg PO DAILY 06/30/24 08/30/24 History benzonatate 200 mg capsule 200 mg PO TID 06/30/24 08/30/24 History ferrous sulfate 325 mg (65 mg 325 mg PO DAILY 08/30/24 08/30/24 History iron) tablet (Feosol) acetaminophen 325 mg tablet 650 mg PO BID 08/31/24 08/31/24 History (Tylenol) atorvastatin 20 mg tablet 20 mg PO QPM 08/31/24 08/30/24 History lidocaine 4 % topical cream 1 applic topical DAILY 08/31/24 08/31/24 History (Anecream) oxycodone-acetaminophen 5 mg-325 1 tablet PO QHS 08/31/24 08/31/24 History mg tablet (Percocet) Allergies Allergy/AdvReac Type Severity Reaction Status Date / Time cephalexin Allergy Severe Rash Verified 08/09/24 10:54 nickel Allergy Mild Other Verified 08/09/24 10:54 Vital Signs Vital Signs - 24 hr 08/30/24 19:37 08/30/24 19:42 08/30/24 21:52 Temperature 97.6 F Pulse Rate 85 83 Respiratory Rate 21 H 18 Blood Pressure 165/70 H 144/54 H Pulse Oximetry 100 100 98 Oxygen Delivery Room Air 08/30/24 22:45 08/30/24 22:51 08/31/24 04:00 Temperature 97.8 F Pulse Rate 78 113 H Respiratory Rate 18 Blood Pressure 122/48 L Pulse Oximetry 97 Oxygen Delivery Room Air Exam 2 Narrative: Weight 122.8 kg BMI 38.8 H&P: Results Labs Labs: Laboratory Tests 08/30/24 19:46 08/30/24 19:46 08/30/24 08/30/24 19:46 19:56 WBC 9.1 RBC 3.31 L Hgb 9.7 L Hct 30.7 L MCV 92.7 MCH 29.3 MCHC 31.6 L RDW 15.0 H Plt Count 239 MPV 11.3 H Immature Gran % (Auto) 0.4 Neut % (Auto) 67.1 Lymph % (Auto) 14.1 L [place] % (Auto) 10.0 H Eos % (Auto) 7.8 H Baso % (Auto) 0.6 Lymph # (Auto) 1.28 [place] # (Auto) 0.9 H Eos # (Auto) 0.7 H Baso # (Auto) 0.1 Abs Immat Gran (auto) 0.04 H Absolute Neuts (auto) 6.1 Absolute Nucleated RBC 0.000 Nucleated RBC % 0.0 Sodium 133 L Potassium 5.1 H Chloride 97 L Carbon Dioxide 25 Anion Gap 11 BUN 58 H D Creatinine 2.51 H Estim Creat Clear Calc 27 Estimated GFR 25 L Glucose 89 Calcium 9.6 Magnesium 2.0 Total Bilirubin 0.2 AST 27 ALT 13 Alkaline Phosphatase 98 Total Protein 8.0 Albumin 4.1 Urine Color Yellow Urine Appearance Turbid H Urine pH 8.0 Ur Specific [place] 1.013 Urine Protein 2+ H Urine Glucose (UA) Negative Urine Ketones Negative Ur Blood (Man) 1+ H Urine Nitrate Positive H Urine Bilirubin Negative Urine Urobilinogen 0.2 Leukocyte Esterase Rfl 3+ H Urine RBC 3-5 H Urine WBC >100 H Ur Squamous Epith Cells None seen Urine Bacteria 4+ H Urine Casts 3-5 Assessment and Plan Assessment and plan (1) Acute kidney injury superimposed on stage 3b chronic kidney disease: Code(s): N17.9 - Acute kidney failure, unspecified; N18.32 - Chronic kidney disease, stage 3b Status: Acute (2) UTI (urinary tract infection): Qualifiers: Hematuria presence: without hematuria Urinary tract infection type: a cute cystitis Qualified Code(s): N30.00 - Acute cystitis without hematuria Code(s): N39.0 - Urinary tract infection, site not specified Status: Acute (3) Benign prostatic hyperplasia with incomplete bladder emptying: Code(s): N40.1 - Benign prostatic hyperplasia with lower urinary tract symptoms; R39.14 - Feeling of incomplete bladder emptying Status: Acute (4) Acute hyperkalemia: Code(s): E87.5 - Hyperkalemia Status: Acute Plan Patient has acute on chronic kidney injury likely due to bladder outlet obstruction with likely underlying BPH. Complicated by likely urinary tract infection. Will place patient on empiric antibiotic therapy with Cipro with pharmacy to dose due to patient's renal function. The the will continue IV fluid hydration and maintain Bowman catheter. Will start the patient on Flomax daily. Will hold the patient's hydrochlorothiazide and Lasix. Will repeat CBC and electrolyte panel in a.m.. Urine has been sent for culture and is pending. Patient's blood pressures are stable will continue patient's home amlodipine and lisinopril. Patient has been admitted as observation status. MEDICAL DECISION MAKING NARRATIVE -Spoke with the ED provider in detail regarding patient's evaluation, workup and management -Patient seen and examined at bedside -Collaborated with patient's nurse at the bedside in detail and addressed all concerns -Labs, electrolytes, radiology, investigations and test results reviewed -ED/Consult/Nursing/Ancilliary notes on the chart reviewed and appreciated -Spoke with patient at bedside. Quality VTE Prophylaxis VTE prophylaxis: pharmacologic ordered (Lovenox 30 mg subQ daily.) Hospitalist MIPS Advance Care Plan I have confirmed that the patient's Advanced Care Plan is present, code status is documented, or surrogate decision maker is listed in patient medical record.: Yes Medication Reconciliation I have utilized all available resources to obtain, update and review the patients current medications (includes all prescriptions, OTC, herbals, cannabis, and nutritional supplements).: Yes
[2024-08-31 06:30] LABS: Hematocrit 27.4 % (42.0-52.0); Hemoglobin 8.7 g/dL (14.0-18.0); Mean Corpuscular HGB Conc 31.8 g/dl (32-36); Mean Corpuscular Hemoglobin 29.6 pg (26-34); Mean Corpuscular Volume 93.2 fl (80-100); Platelet Count Result 193 k/mm3 (150-375); Red Blood Count 2.94 M/mm3 (4.6-6.20); White Blood Count 6.1 K/mm3 (4.5-10.0)
[2024-08-31 06:50] LABS: Anion Gap 6 mmol/L (4-12); Blood Urea Nitrogen 55 mg/dL (9-20); Calcium 9.0 mg/dL (8.4-10.2); Carbon Dioxide 23 mmol/L (22-30); Chloride 102 mmol/L (98-107); Estimated CRCL calculation 36 ml/min; Estimated Glomerular Filt Rate 31; Glucose 97 mg/dL (65-110); Magnesium 2.0 mg/dL (1.6-2.3); Potassium 4.5 mmol/L (3.4-5.0); Sodium 131 mmol/L (137-145)
[2024-08-31] MEDS: GABAPENTIN 300 MG CAPSULE 600 MG PO ×2 (09:05→16:49)
[2024-08-31] MEDS: FERROUS SULFATE 325 MG TABLET DR BY MOUTH (09:05)
[2024-08-31] MEDS: ACETAMINOPHEN 325 MG TABLET 650 MG PO ×2 (09:05→16:49)
[2024-08-31] MEDS: BENZONATATE 100 MG CAPSULE 200 MG PO (09:05)
[2024-08-31] MEDS: ASPIRIN 325 MG TABLET PO (09:05)
--- NOTE | 2024-08-31 09:23 | PM.IMPN ---
Progress Note: A&P Assessment and Plan (1) Acute kidney injury superimposed on stage 3b chronic kidney disease: Code(s): N17.9 - Acute kidney failure, unspecified; N18.32 - Chronic kidney disease, stage 3b Status: Acute (2) UTI (urinary tract infection): Qualifiers: Hematuria presence: without hematuria Urinary tract infection type: acute cystitis Qualified Code(s): N30.00 - Acute cystitis without hematuria Code(s): N39.0 - Urinary tract infection, site not specified Status: Acute (3) Benign prostatic hyperplasia with incomplete bladder emptying: Code(s): N40.1 - Benign prostatic hyperplasia with lower urinary tract symptoms; R39.14 - Feeling of incomplete bladder emptying Status: Acute (4) Acute hyperkalemia: Code(s): E87.5 - Hyperkalemia Status: Acute Plan RIC Patient has acute on chronic kidney injury likely due to bladder outlet obstruction with likely underlying BPH and your infection. The the will continue IV fluid hydration and maintain Bowman catheter. on Flomax daily. hold the patient's hydrochlorothiazide and Lasix. repeat CBC and electrolyte panel in a.m. Chronic trending down 2.0 7 today urine retention 800 mL urine drained out from the folic catheter initially Likely secondary to BPH Patient is on tamsulosin Consult urologist for evaluation treatment Hyponatremia Sodium trending down 131 Switch from night Ringer to normal saline IV 75 mL/hour complicated UTI empiric antibiotic therapy with Cipro with pharmacy to dose due to patient's renal function. . Urine has been sent for culture and is pending. Patient's blood pressures are stable will continue patient's home amlodipine and lisinopril. Patient has been admitted as observation status. In Subjective Date/time seen: 08/31/24 09:23 Interval history: Saw examined patient today Afebrile, blood pressure stable on the lower side No O2 desaturation Labs reviewed, creatinine is trending down, sodium a also trending down Objective Data Vital Signs Vital Signs: Vital Signs - 24 hr 08/30/24 19:37 08/30/24 19:42 08/30/24 21:52 Temperature 97.6 F Pulse Rate 85 83 Respiratory Rate 21 H 18 Blood Pressure 165/70 H 144/54 H Pulse Oximetry 100 100 98 Oxygen Delivery Room Air 08/30/24 22:45 08/30/24 22:51 08/31/24 00:00 Temperature 97.8 F Pulse Rate 78 113 H Respiratory Rate 18 Blood Pressure 122/48 L Pulse Oximetry 97 Oxygen Delivery Room Air 08/31/24 04:00 08/31/24 06:00 Temperature 97.8 F Pulse Rate 81 67 Respiratory Rate 18 Blood Pressure 132/48 L Pulse Oximetry 95 Oxygen Delivery Intake/Output Intake/Output: Intake & Output 08/28/24 08/29/24 08/30/24 08/31/24 23:59 23:59 23:59 23:59 Intake Total 200 100 Output Total 450 Balance 200 -350 Meds/Results Medications: Active Medications Generic Name Dose Route Start Last Admin Trade Name Freq PRN Reason Stop Dose Admin Acetaminophen 650 mg 08/30/24 21:40 Acetaminophen 325 Mg Tablet PO Q4H PRN Mild Pain (1-3) or Fever Acetaminophen 650 mg 08/31/24 09:00 08/31/24 09:05 Acetaminophen 325 Mg Tablet PO 650 mg BID ROSY Administration Amlodipine Besylate 10 mg 08/31/24 09:00 08/31/24 09:04 Amlodipine Besylate 10 Mg Tablet PO 10 mg DAILY ROSY Administration Aspirin 325 mg 08/31/24 09:00 08/31/24 09:05 Aspirin 325 Mg Tablet PO 325 mg DAILY ROSY Administration Atorvastatin Calcium 20 mg 08/31/24 18:00 Atorvastatin 20 Mg Tablet PO QPM ROSY Benzonatate 200 mg 08/31/24 09:00 08/31/24 09:05 Benzonatate 100 Mg Capsule PO 200 mg TID ROSY Administration Enoxaparin Sodium 40 mg 08/31/24 09:00 Enoxaparin 40 Mg/0.4 Ml Syringe SUB-Q DAILY [facility] Ferrous Sulfate 325 mg 08/31/24 09:00 08/31/24 09:05 Ferrous Sulfate [address] BY MOUTH 325 mg DAILY ROSY Administration Gabapentin 600 mg 08/31/24 09:00 08/31/24 09:05 Gabapentin 300 Mg Capsule PO 600 mg TID ROSY Administration Ciprofloxacin/Dextrose 200 mls @ 200 mls/hr 08/31/24 10:00 Cipro 400 Mg/D5w 200 Ml IVPB Q12H ROSY Lactated Ringer's 1,000 mls @ 125 mls/hr 08/30/24 21:40 08/30/24 23:30 Lr - Lactated Ringers Iv IV CONT 125 mls/hr .Q8H [facility] Administration Lisinopril 20 mg 08/31/24 09:00 08/31/24 09:05 Lisinopril 20 Mg Tablet PO 20 mg DAILY [facility] Administration Oxycodone/Acetaminophen 1 tablet 08/31/24 21:00 Oxycodone/Acetaminophen (*Crx) 5-325 Mg Tablet PO QHS [facility] Tamsulosin HCl 0.4 mg 08/31/24 09:00 Tamsulosin Hcl 0.4 Mg Capsule PO QAM [facility] Labs Labs: Laboratory Results - last 24 hr 08/30/24 08/30/24 08/31/24 19:46 19:56 06:21 WBC 9.1 6.1 RBC 3.31 L 2.94 L Hgb 9.7 L 8.7 L Hct 30.7 L 27.4 L MCV 92.7 93.2 MCH 29.3 29.6 MCHC 31.6 L 31.8 L RDW 15.0 H 15.1 H Plt Count 239 193 MPV 11.3 H 10.9 H Immature Gran % (Auto) 0.4 Neut % (Auto) 67.1 Lymph % (Auto) 14.1 L [place] % (Auto) 10.0 H Eos % (Auto) 7.8 H Baso % (Auto) 0.6 Lymph # (Auto) 1.28 [place] # (Auto) 0.9 H Eos # (Auto) 0.7 H Baso # (Auto) 0.1 Abs Immat Gran (auto) 0.04 H Absolute Neuts (auto) 6.1 Absolute Nucleated RBC 0.000 Nucleated RBC % 0.0 Sodium 133 L 131 L Potassium 5.1 H 4.5 Chloride 97 L 102 Carbon Dioxide 25 23 Anion Gap 11 6 BUN 58 H D 55 H Creatinine 2.51 H 2.07 H Estim Creat Clear Calc 27 36 Estimated GFR 25 L 31 L Glucose 89 97 Calcium 9.6 9.0 Magnesium 2.0 2.0 Total Bilirubin 0.2 AST 27 ALT 13 Alkaline Phosphatase 98 Total Protein 8.0 Albumin 4.1 Urine Color Yellow Urine Appearance Turbid H Urine pH 8.0 Ur Specific [place] 1.013 Urine Protein 2+ H Urine Glucose (UA) Negative Urine Ketones Negative Ur Blood (Man) 1+ H Urine Nitrate Positive H Urine Bilirubin Negative Urine Urobilinogen 0.2 Leukocyte Esterase Rfl 3+ H Urine RBC 3-5 H Urine WBC >100 H Ur Squamous Epith Cells None seen Urine Bacteria 4+ H Urine Casts 3-5
[2024-08-31] MEDS: CIPROFLOXACIN 400 MG/D5W 200ML 200 ML 200 MG IVPB (11:00)
[2024-08-31] MEDS: TAMSULOSIN HCL 0.4 MG CAPSULE PO (11:00)
[2024-08-31] MEDS: ENOXAPARIN 40 MG/0.4 ML SYRINGE SUB-Q (11:01)
[2024-08-31] MEDS: SODIUM CHLORIDE 0.9% IV 1,000 ML 125 ML IV CONT (11:01)
--- NOTE | 2024-08-31 16:46 | P.CONUR_ITS ---
Assessment and Plan Assessment and plan (1) Acute urinary retention: Code(s): R33.8 - Other retention of urine Status: Acute (2) UTI (urinary tract infection): Qualifiers: Urinary tract infection type: acute cystitis Hematuria presence: w ithout hematuria Qualified Code(s): N30.00 - Acute cystitis without hematuria Code(s): N39.0 - Urinary tract infection, site not specified Status: Acute (3) Benign prostatic hyperplasia with incomplete bladder emptying: Code(s): N40.1 - Benign prostatic hyperplasia with lower urinary tract symptoms; R39.14 - Feeling of incomplete bladder emptying Status: Acute Plan -cr is down to 2.07 which is down from 2.51 -wbc wnl -ua suspicious for infection. culture pending. culture driven antibiotic therapy per primary service. -maintain odom catheter. -he can be discharged with catheter and can have VT as outpatient. If he fails, then would do further workup such as UDS and possible cysto. -start tamsulosin if not already on it. Urology Consult Note HPI Date Seen: 08/31/24 Requesting Physician: Irma Reynoso DO Primary Care Provider: Ibrahima Bird MD Consult Narrative Narrative: Ludin Menon is a 79 year old male with a past medical history of peripheral artery disease, chronic kidney disease stage IIIB, essential hypertension and complicated hospital stay April 2024 due to perforated viscus due to perforated gastric ulcer resulting in sepsis and bacteremia with secondary so as and prevertebral abscesses for which he was transferred to [facility] [address] 06/06/2024 who presented to the ER from all home for a rehab center due to worsening renal function on outpatient labs. The patient had a Odom catheter that was removed 3 or 4 days ago. Since the catheter had been removed he had been having difficulty with urination and was only voiding 30-50 mL at a time and was voiding frequently. In the ER postvoid residual was greater than 400. Odom catheter was placed. UA was suspicious for UTI. Electrolyte panel confirmed acute on chronic kidney injury with mild hyperkalemia. Patient received 2 L IV fluid bolus and maintenance IV fluids and was admitted for further treatment. He was started on empiric antibiotic therapy with Cipro. Information was obtained from review of past medical records and ER physician report. The patient was only alert oriented to person, place and name of the current president. He thought the month was February and initially told me that the year was 1969 something then corrected himself to 2021. When prompted he he reported he felt better after catheter was placed. Otherwise patient fell asleep numerous times during my evaluation in did not provide much history. Review of Systems 2 Review of Systems: All systems reviewed & are unremarkable except as noted in HPI and below PMFSH Past Medical History Medical History Uses feeding tube MRSA infection Perforated gastric ulcer (04/2024) Repair 05/03 PAD (peripheral artery disease) Acute perforated appendicitis Piriformis syndrome Trochanteric bursitis, right hip Lumbar stenosis Low Back Pain Arthritis Colon polyps (07/02/22) Umbilical hernia HTN (hypertension) Hypercholesterolemia Surgical History Surgical History History of abdominal surgery (04/2024) Repair perforated gastric ulcer History of appendectomy (06/2022) Perforated appemdix H/O Spinal surgery (1984) H/O umbilical hernia repair (2011) Hx of tonsillectomy Family History Family History Father Acute myocardial infarction Heart disease Alzheimer disease Mother Acute myocardial infarction Heart disease Alzheimer disease Social History Social History Social History: Code status: Full code; POLST signed 06/14/24 Surrogate decision maker: Erika () Smoking status: Never smoker Second hand tobacco smoke exposure: Yes Alcohol intake: former Alcohol use details: Occasional Substance use: never Substance use type: does not use Do You Feel Safe in your Home?: Yes Lack of Transportation: No Lack of Food: Never True Current Housing: I Have Housing Concerned About Future Housing: No Difficulty Paying Gas/Electric Bills: No Difficulty Paying for Meds: No Currently Unemployed: No Education: Master's Degree or Higher Difficulty w/ Childcare or Family Care: No Living arrangements: long term Additional living arrangements comments: previously with family, currently rehab facility Occupation/Education: retired Gender identity (if verbalized by the patient): Male Spiritual care concerns: No Agree to blood products: Yes Meds Home Medications and Allergies Home Medications ?Medication ?Instructions ?Recorded ?Confirmed ?Type aspirin 325 mg tablet 325 mg PO DAILY 09/13/21 08/30/24 History fexofenadine 180 mg tablet 180 mg PO DAILY PRN contact 09/13/21 08/31/24 History dermititis gabapentin 300 mg capsule 600 mg PO TID 12/20/21 08/30/24 History hydrochlorothiazide 25 mg tablet 25 mg PO DAILY 07/23/23 08/30/24 History lisinopril 40 mg tablet See Rx Instructions .Route 11/09/23 08/31/24 Rx .COMPLEX #90 tabs furosemide 40 mg tablet 40 mg PO QAM #90 tabs 02/03/24 08/30/24 Rx amlodipine 10 mg tablet 10 mg PO DAILY 06/30/24 08/30/24 History benzonatate 200 mg capsule 200 mg PO TID 06/30/24 08/30/24 History ferrous sulfate 325 mg (65 mg 325 mg PO DAILY 08/30/24 08/30/24 History iron) tablet (Feosol) acetaminophen 325 mg tablet 650 mg PO BID 08/31/24 08/31/24 History (Tylenol) atorvastatin 20 mg tablet 20 mg PO QPM 08/31/24 08/30/24 History lidocaine 4 % topical cream 1 applic topical DAILY 08/31/24 08/31/24 History (Anecream) oxycodone-acetaminophen 5 mg-325 1 tablet PO QHS 08/31/24 08/31/24 History mg tablet (Percocet) Allergies Allergy/AdvReac Type Severity Reaction Status Date / Time cephalexin Allergy Severe Rash Verified 08/09/24 10:54 nickel Allergy Mild Other Verified 08/09/24 10:54 Vital Signs Vital Signs - 24 hr 08/30/24 19:37 08/30/24 19:42 08/30/24 21:52 Temperature 97.6 F Pulse Rate 85 83 Respiratory Rate 21 H 18 Blood Pressure 165/70 H 144/54 H Pulse Oximetry 100 100 98 Oxygen Delivery Room Air 08/30/24 22:45 08/30/24 22:51 08/31/24 00:00 Temperature 97.8 F Pulse Rate 78 113 H Respiratory Rate 18 Blood Pressure 122/48 L Pulse Oximetry 97 Oxygen Delivery Room Air 08/31/24 04:00 08/31/24 06:00 07/23/25 08:00 Temperature 97.8 F Pulse Rate 81 67 90 Respiratory Rate 18 Blood Pressure 132/48 L Pulse Oximetry 95 Oxygen Delivery 08/31/24 12:00 08/31/24 13:19 Temperature 97.1 F L Pulse Rate 73 74 Respiratory Rate 18 Blood Pressure 115/50 L Pulse Oximetry 99 Oxygen Delivery Exam 2 Const: General: comfortable and no acute distress Eyes: General: appearance normal, both eyes and all related structures Resp: Effort & Inspection: normal respiratory effort Urinary Catheter: Urinary Catheter: patent and draining and urine clear Skin: General skin exam: normal color Neuro: Speech: normal speech Results Labs 08/31/24 06:21 08/31/24 06:21 Labs: Short CBC 08/30/24 08/31/24 Range/Units 19:46 06:21 WBC 9.1 6.1 (4.5-10.0) K/mm3 Hgb 9.7 L 8.7 L (14.0-18.0) g/dL Hct 30.7 L 27.4 L (42.0-52.0) % Plt Count 239 193 (150-375) k/mm3 BMP 08/30/24 08/31/24 19:46 06:21 Sodium 133 L 131 L Potassium 5.1 H 4.5 Chloride 97 L 102 Carbon Dioxide 25 23 BUN 58 H D 55 H Creatinine 2.51 H 2.07 H Glucose 89 97 Calcium 9.6 9.0 Liver Function 08/30/24 Range/Units 19:46 Total Bilirubin 0.2 (0.2-1.3) mg/dL AST 27 (17-59) U/L ALT 13 (6-50) U/L Alkaline Phosphatase 98 (38-126) U/L Albumin 4.1 (3.5-5.1) g/dL Urine 08/30/24 Range/Units 19:56 Urine Color Yellow (Yellow) Urine Appearance Turbid H (Clear) Urine pH 8.0 (5.0-9.0) Ur Specific [place] 1.013 (1.001-1.035) Urine Protein 2+ H (Negative) mg/dL Urine Glucose (UA) Negative (Negative) mg/dL
[2024-08-31] MEDS: cefTRIAXone 2 GM in SODIUM CHLORIDE 0.9% IV 100 ML 200 ML IVPB (16:50)
[2024-08-31] MEDS: ATORVASTATIN 20 MG TABLET PO (16:50)
[2024-08-31] MEDS: oxyCODONE/ACETAMINOPHEN (*CRX) 5-325 MG TABLET 1 TABLET PO (20:39)
[2024-09-01] VITALS: PULSE 70
[2024-09-01 04:00] VITALS: PULSE 68
[2024-09-01] MEDS: SODIUM CHLORIDE 0.9% IV 1,000 ML 75 ML IV CONT (05:51)
[2024-09-01 05:57] VITALS: BP 121/49; PULSE 67; RESP 14; TEMP 36.5; O2SAT 97
[2024-09-01 08:00] VITALS: PULSE 78
[2024-09-01] MEDS: FERROUS SULFATE 325 MG TABLET DR BY MOUTH (08:31)
[2024-09-01] MEDS: ACETAMINOPHEN 325 MG TABLET 650 MG PO ×2 (08:31→18:19)
[2024-09-01] MEDS: ENOXAPARIN 40 MG/0.4 ML SYRINGE SUB-Q (08:31)
[2024-09-01] MEDS: ASPIRIN 325 MG TABLET PO (08:31)
[2024-09-01] MEDS: GABAPENTIN 300 MG CAPSULE 600 MG PO ×3 (08:31→18:18)
[2024-09-01] MEDS: TAMSULOSIN HCL 0.4 MG CAPSULE PO (08:31)
--- NOTE | 2024-09-01 10:14 | PM.IMPN ---
Progress Note: A&P Assessment and Plan (1) Acute kidney injury superimposed on stage 3b chronic kidney disease: Code(s): N17.9 - Acute kidney failure, unspecified; N18.32 - Chronic kidney disease, stage 3b Status: Acute (2) UTI (urinary tract infection): Qualifiers: Urinary tract infection type: acute cystitis Hematuria presence: without hematuria Qualified Code(s): N30.00 - Acute cystitis without hematuria Code(s): N39.0 - Urinary tract infection, site not specified Status: Acute (3) Benign prostatic hyperplasia with incomplete bladder emptying: Code(s): N40.1 - Benign prostatic hyperplasia with lower urinary tract symptoms; R39.14 - Feeling of incomplete bladder emptying Status: Acute (4) Acute hyperkalemia: Code(s): E87.5 - Hyperkalemia Status: Acute Plan # RIC Patient has acute on chronic kidney injury likely due to bladder outlet obstruction with likely underlying BPH and your infection. The the will continue IV fluid hydration and maintain Bowman catheter. on Flomax daily. hold the patient's hydrochlorothiazide and Lasix. Creatinine on admission 2.5. Baseline creatinine in mid 1s. Chronic trending down 2.0 7. # urine retention 800 mL urine drained out from the folic catheter initially Likely secondary to BPH Patient is on tamsulosin Consult urologist for evaluation treatment # Hyponatremia Sodium trending down 131 Switch from night Ringer to normal saline IV 75 mL/hour Repeat sodium today if improved will stop normal saline # complicated UTI empiric antibiotic therapy with Cipro with pharmacy to dose due to patient's renal function. . Urine has been sent for culture and is pending. Urine culture growing Proteus mirabilis. Sensitive to ceftriaxone and has been switched to ceftriaxone. No oral option will need ceftriaxone 2 g daily for 7 total days. Five more days. 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 He has been started on ceftriaxone since yesterday depending on the culture. He has chronic lower extremity edema no chest pain or shortness of breath. Review of Systems Review of Systems: All systems reviewed & are unremarkable except as noted in HPI and below Exam Narrative: GENERAL: [Well-appearing, well-nourished, and in no acute distress.] HEAD: [Normocephalic, atraumatic.] EYES: [PERRLA and EOMI.] ENT: Nares clear, no rhinorrhea or epistaxis. Mucous membranes moist. NECK: Supple. CHEST: [Clear to auscultation. No respiratory distress.] HEART: [Regular rate and rhythm]. No murmur heard. [Normal peripheral pulses.] ABDOMEN: [Soft, nondistended], [nontender], [No rigidity or guarding] EXTREMITIES: Normal range of motion. 1+ edema lower extremities SKIN: Abdominal surgical scars otherwise warm dry and no rash NEURO: [No focal deficits]. Alert and oriented [x3.] PSYCH: [Normal mood and affect.] Objective Data Vital Signs Vital Signs: Vital Signs - 24 hr 08/31/24 12:00 08/31/24 13:19 08/31/24 16:00 Temperature 97.1 F L Pulse Rate 73 74 74 Respiratory Rate 18 Blood Pressure 115/50 L Pulse Oximetry 99 Oxygen Delivery 08/31/24 20:00 08/31/24 20:00 08/31/24 21:31 Temperature 98.5 F Pulse Rate 75 75 Respiratory Rate 16 Blood Pressure 112/50 L Pulse Oximetry 99 Oxygen Delivery Room Air 09/01/24 00:00 09/01/24 04:00 09/01/24 05:57 Temperature 97.7 F Pulse Rate 70 68 67 Respiratory Rate 14 Blood Pressure 121/49 L Pulse Oximetry 97 Oxygen Delivery Intake/Output Intake/Output: Intake & Output 08/29/24 08/30/24 08/31/24 09/01/24 23:59 23:59 23:59 23:59 Intake Total 308 415 6834 Output Total 1750 1400 Balance 200 -820 100 Meds/Results Medications: Active Medications Generic Name Dose Route Start Last Admin Trade Name Freq PRN Reason Stop Dose Admin Acetaminophen 650 mg 08/30/24 21:40 Acetaminophen 325 Mg Tablet PO Q4H PRN Mild Pain (1-3) or Fever Acetaminophen 650 mg 08/31/24 09:00 09/01/24 08:31 Acetaminophen 325 Mg Tablet PO 650 mg BID ROSY Administration Amlodipine Besylate 10 mg 08/31/24 09:00 09/01/24 08:31 Amlodipine Besylate 10 Mg Tablet PO 10 mg DAILY ROSY Administration Aspirin 325 mg 08/31/24 09:00 09/01/24 08:31 Aspirin 325 Mg Tablet PO 325 mg DAILY ROSY Administration Atorvastatin Calcium 20 mg 08/31/24 18:00 08/31/24 16:50 Atorvastatin 20 Mg Tablet PO 20 mg QPM ROSY Administration Benzonatate 200 mg 08/31/24 14:42 Benzonatate 100 Mg Capsule PO TID PRN Cough Enoxaparin Sodium 40 mg 08/31/24 09:00 09/01/24 08:31 Enoxaparin 40 Mg/0.4 Ml Syringe SUB-Q 40 mg DAILY ROSY Administration Ferrous Sulfate 325 mg 08/31/24 09:00 09/01/24 08:31 Ferrous Sulfate [address] BY MOUTH 325 mg DAILY ROSY Administration Gabapentin 600 mg 08/31/24 09:00 09/01/24 08:31 Gabapentin 300 Mg Capsule PO 600 mg TID ROSY Administration Sodium Chloride 1,000 mls @ 75 mls/hr 08/31/24 09:30 09/01/24 05:51 Normal Saline Iv IV CONT 75 mls/hr .[id number] ROSY Administration Ceftriaxone Sodium 2 gm/ 100 mls @ 200 mls/hr 08/31/24 16:00 08/31/24 17:43 Sodium Chloride IVPB Infused Q24H ROSY Infusion Lisinopril 20 mg 08/31/24 09:00 09/01/24 08:31 Lisinopril 20 Mg Tablet PO 20 mg DAILY ROSY Administration Oxycodone/Acetaminophen 1 tablet 08/31/24 21:00 08/31/24 20:39 Oxycodone/Acetaminophen (*Crx) 5-325 Mg Tablet PO 1 tablet QHS ROSY Administration Tamsulosin HCl 0.4 mg 08/31/24 09:00 09/01/24 08:31 Tamsulosin Hcl 0.4 Mg Capsule PO 0.4 mg QAM ROSY Administration
[2024-09-01 10:34] LABS: Hematocrit 27.1 % (42.0-52.0); Hemoglobin 8.6 g/dL (14.0-18.0); Immature Granulocyte Percent A 0.4 % (0-0.5); Lymphocytes Absolute Auto 0.76 K/mm3 (0.9-3.2); Mean Corpuscular HGB Conc 31.7 g/dl (32-36); Mean Corpuscular Hemoglobin 29.8 pg (26-34); Mean Corpuscular Volume 93.8 fl (80-100); Nucleated Red Blood Cells Absolute Auto 0.000 K/mm3 (0.0-0.012); Nucleated Red Blood Cells Perc 0.0 % (0.0-0.2); Platelet Count Result 190 k/mm3 (150-375); Red Blood Count 2.89 M/mm3 (4.6-6.20); White Blood Count 5.6 K/mm3 (4.5-10.0)
[2024-09-01 11:03] LABS: Alanine Aminotransferase 10 U/L (6-50); Albumin Level 3.3 g/dL (3.5-5.1); Alkaline Phosphatase 81 U/L (38-126); Anion Gap 8 mmol/L (4-12); Aspartate Amino Transferase 22 U/L (17-59); Bilirubin,Total < 0.1 mg/dL (0.2-1.3); Blood Urea Nitrogen 44 mg/dL (9-20); Calcium 9.1 mg/dL (8.4-10.2); Carbon Dioxide 23 mmol/L (22-30); Chloride 103 mmol/L (98-107); Estimated CRCL calculation 39 ml/min; Estimated Glomerular Filt Rate 35; Glucose 103 mg/dL (65-110); Magnesium 1.9 mg/dL (1.6-2.3); Potassium 4.4 mmol/L (3.4-5.0); Sodium 134 mmol/L (137-145); Total Protein 6.6 g/dL (6.3-8.2)
[2024-09-01 14:00] VITALS: BP 115/50; PULSE 67; RESP 18; TEMP 36.5; O2SAT 97
[2024-09-01] MEDS: cefTRIAXone 2 GM in SODIUM CHLORIDE 0.9% IV 100 ML 200 ML IVPB (15:15)
--- NOTE | 2024-09-01 16:12 | P.PNUR_ITS ---
Progress Note: A&P Assessment and Plan (1) Acute urinary retention: Code(s): R33.8 - Other retention of urine Status: Acute (2) UTI (urinary tract infection): Qualifiers: Urinary tract infection type: acute cystitis Hematuria presence: without hematuria Qualified Code(s): N30.00 - Acute cystitis without hematuria Code(s): N39.0 - Urinary tract infection, site not specified Status: Acute (3) Benign prostatic hyperplasia with incomplete bladder emptying: Code(s): N40.1 - Benign prostatic hyperplasia with lower urinary tract symptoms; R39.14 - Feeling of incomplete bladder emptying Status: Acute Plan -cr is down to 1.89 which is down from 2.07 -wbc stable - culture driven antibiotic therapy per primary service. -maintain odom catheter. -he can be discharged with catheter and can have VT as outpatient. If he fails, then would do further workup such as UDS and possible cysto. -continue tamsulosin Subjective Subjective Date/Time Seen: 09/01/24 16:12 Interval history: no acute events overnight. he reports he is doing well. Review of Systems Review of Systems: All systems reviewed & are unremarkable except as noted in HPI and below Exam Const: General: comfortable and no acute distress Eyes: General: appearance normal, both eyes and all related structures Resp: Effort & Inspection: normal respiratory effort Urinary Catheter: Urinary Catheter: patent and draining and urine clear Skin: General skin exam: normal color Neuro: Speech: normal speech Objective Data Vital Signs Vital Signs: Vital Signs - 24 hr 08/31/24 20:00 08/31/24 20:00 08/31/24 21:31 Temperature 98.5 F Pulse Rate 75 75 Respiratory Rate 16 Blood Pressure 112/50 L Pulse Oximetry 99 Oxygen Delivery Room Air 09/01/24 00:00 09/01/24 04:00 09/01/24 05:57 Temperature 97.7 F Pulse Rate 70 68 67 Respiratory Rate 14 Blood Pressure 121/49 L Pulse Oximetry 97 Oxygen Delivery 09/01/24 08:00 09/01/24 11:19 09/01/24 14:00 Temperature 97.7 F Pulse Rate 78 67 Respiratory Rate 18 Blood Pressure 115/50 L Pulse Oximetry 97 Oxygen Delivery Room Air Intake/Output Intake/Output: Intake & Output 08/29/24 08/30/24 08/31/24 09/01/24 23:59 23:59 23:59 23:59 Intake Total 137 247 4973 Output Total 1750 1400 Balance 200 -820 340 Meds/Results Medications: Active Medications Generic Name Dose Route Start Last Admin Trade Name Freq PRN Reason Stop Dose Admin Acetaminophen 650 mg 08/30/24 21:40 Acetaminophen 325 Mg Tablet PO Q4H PRN Mild Pain (1-3) or Fever Acetaminophen 650 mg 08/31/24 09:00 09/01/24 08:31 Acetaminophen 325 Mg Tablet PO 650 mg BID ROSY Administration Amlodipine Besylate 10 mg 08/31/24 09:00 09/01/24 08:31 Amlodipine Besylate 10 Mg Tablet PO 10 mg DAILY ROSY Administration Aspirin 325 mg 08/31/24 09:00 09/01/24 08:31 Aspirin 325 Mg Tablet PO 325 mg DAILY ROSY Administration Atorvastatin Calcium 20 mg 08/31/24 18:00 08/31/24 16:50 Atorvastatin 20 Mg Tablet PO 20 mg QPM ROSY Administration Benzonatate 200 mg 08/31/24 14:42 Benzonatate 100 Mg Capsule PO TID PRN Cough Enoxaparin Sodium 40 mg 08/31/24 09:00 09/01/24 08:31 Enoxaparin 40 Mg/0.4 Ml Syringe SUB-Q 40 mg DAILY ROSY Administration Ferrous Sulfate 325 mg 08/31/24 09:00 09/01/24 08:31 Ferrous Sulfate [address] BY MOUTH 325 mg DAILY ROSY Administration Gabapentin 600 mg 08/31/24 09:00 09/01/24 15:22 Gabapentin 300 Mg Capsule PO 600 mg TID ROSY Administration Ceftriaxone Sodium 2 gm/ 100 mls @ 200 mls/hr 08/31/24 16:00 09/01/24 15:15 Sodium Chloride IVPB 200 mls/hr Q24H ROSY Administration Lisinopril 20 mg 08/31/24 09:00 09/01/24 08:31 Lisinopril 20 Mg Tablet PO 20 mg DAILY ROSY Administration Oxycodone/Acetaminophen 1 tablet 08/31/24 21:00 08/31/24 20:39 Oxycodone/Acetaminophen (*Crx) 5-325 Mg Tablet PO 1 tablet QHS ROSY Administration Tamsulosin HCl 0.4 mg 08/31/24 09:00 09/01/24 08:31 Tamsulosin Hcl 0.4 Mg Capsule PO 0.4 mg QAM ROSY Administration Labs Labs: Laboratory Results - last 24 hr 09/01/24 10:26 WBC 5.6 RBC 2.89 L Hgb 8.6 L Hct 27.1 L MCV 93.8 MCH 29.8 MCHC 31.7 L RDW 15.0 H Plt Count 190 MPV 11.2 H Immature Gran % (Auto) 0.4 Neut % (Auto) 65.9 Lymph % (Auto) 13.[address] [place] % (Auto) 13.0 H Eos % (Auto) 6.3 H Baso % (Auto) 0.7 Lymph # (Auto) 0.[address] [place] [place] # (Auto) 0.7 H Eos # (Auto) 0.4 H Baso # (Auto) 0.0 Abs Immat Gran (auto) 0.02 Absolute Neuts (auto) 3.7 Absolute Nucleated RBC 0.000 Nucleated RBC % 0.0 Sodium 134 L Potassium 4.4 Chloride 103 Carbon Dioxide 23 Anion Gap 8 BUN 44 H D Creatinine 1.89 H Estim Creat Clear Calc 39 Estimated GFR 35 L Glucose 103 Calcium 9.1 Magnesium 1.9 Total Bilirubin < 0.1 L AST 22 ALT 10 Alkaline Phosphatase 81 Total Protein 6.6 Albumin 3.3 L
[2024-09-01] MEDS: ATORVASTATIN 20 MG TABLET PO (18:18)
[2024-09-01 20:14] VITALS: BP 119/51; PULSE 73; RESP 18; TEMP 36.8; O2SAT 97
[2024-09-01] MEDS: oxyCODONE/ACETAMINOPHEN (*CRX) 5-325 MG TABLET 1 TABLET PO (20:57)
[2024-09-02 05:34] VITALS: BP 131/55; PULSE 66; RESP 18; TEMP 36.6; O2SAT 97
[2024-09-02] MEDS: TAMSULOSIN HCL 0.4 MG CAPSULE PO (08:40)
[2024-09-02] MEDS: ASPIRIN 325 MG TABLET PO (08:40)
[2024-09-02] MEDS: ACETAMINOPHEN 325 MG TABLET 650 MG PO ×2 (08:40→16:27)
[2024-09-02] MEDS: GABAPENTIN 300 MG CAPSULE 600 MG PO ×3 (08:41→16:27)
[2024-09-02] MEDS: FERROUS SULFATE 325 MG TABLET DR BY MOUTH (08:41)
[2024-09-02] MEDS: ENOXAPARIN 40 MG/0.4 ML SYRINGE SUB-Q (08:42)
--- NOTE | 2024-09-02 13:01 | PM.IMPN ---
Progress Note: A&P Assessment and Plan (1) Acute kidney injury superimposed on stage 3b chronic kidney disease: Code(s): N17.9 - Acute kidney failure, unspecified; N18.32 - Chronic kidney disease, stage 3b Status: Acute (2) UTI (urinary tract infection): Qualifiers: Urinary tract infection type: acute cystitis Hematuria presence: without hematuria Qualified Code(s): N30.00 - Acute cystitis without hematuria Code(s): N39.0 - Urinary tract infection, site not specified Status: Acute (3) Benign prostatic hyperplasia with incomplete bladder emptying: Code(s): N40.1 - Benign prostatic hyperplasia with lower urinary tract symptoms; R39.14 - Feeling of incomplete bladder emptying Status: Acute (4) Acute hyperkalemia: Code(s): E87.5 - Hyperkalemia Status: Acute Plan # RIC Patient has acute on chronic kidney injury likely due to bladder outlet obstruction with likely underlying BPH and your infection. The the will continue IV fluid hydration and maintain Bowman catheter. on Flomax daily. hold the patient's hydrochlorothiazide and Lasix. Creatinine on admission 2.5. Baseline creatinine in mid 1s. Chronic trending down 2.0 7. # urine retention 800 mL urine drained out from the folic catheter initially Likely secondary to BPH Patient is on tamsulosin Consult urologist for evaluation treatment # Hyponatremia Sodium trending down 131 Switch from night Ringer to normal saline IV 75 mL/hour Repeat sodium today if improved will stop normal saline # complicated UTI empiric antibiotic therapy with Cipro with pharmacy to dose due to patient's renal function. . Urine has been sent for culture and is pending. Urine culture growing Proteus mirabilis. Sensitive to ceftriaxone and has been switched to ceftriaxone. No oral option will need ceftriaxone 2 g daily for 7 total days. Five more days. 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 No new complaints. Insurance authorization tolerating IV antibiotics Review of Systems Review of Systems: All systems reviewed & are unremarkable except as noted in HPI and below Exam Narrative: GENERAL: [Well-appearing, well-nourished, and in no acute distress.] HEAD: [Normocephalic, atraumatic.] EYES: [PERRLA and EOMI.] ENT: Nares clear, no rhinorrhea or epistaxis. Mucous membranes moist. NECK: Supple. CHEST: [Clear to auscultation. No respiratory distress.] HEART: [Regular rate and rhythm]. No murmur heard. [Normal peripheral pulses.] ABDOMEN: [Soft, nondistended], [nontender], [No rigidity or guarding] EXTREMITIES: Normal range of motion. 1+ edema lower extremities SKIN: Abdominal surgical scars otherwise warm dry and no rash NEURO: [No focal deficits]. Alert and oriented [x3.] PSYCH: [Normal mood and affect.] Objective Data Vital Signs Vital Signs: Vital Signs - 24 hr 09/01/24 14:00 09/01/24 20:00 09/01/24 20:14 Temperature 97.7 F 98.3 F Pulse Rate 67 73 Respiratory Rate 18 18 Blood Pressure 115/50 L 119/51 L Pulse Oximetry 97 97 Oxygen Delivery Room Air 09/02/24 05:34 Temperature 97.8 F Pulse Rate 66 Respiratory Rate 18 Blood Pressure 131/55 L Pulse Oximetry 97 Oxygen Delivery Intake/Output Intake/Output: Intake & Output 08/30/24 08/31/24 09/01/24 09/02/24 23:59 23:59 23:59 23:59 Intake Total 259 716 8250 790 Output Total 1750 3100 1050 Balance 200 -820 -1140 -260 Meds/Results Medications: Active Medications Generic Name Dose Route Start Last Admin Trade Name Freq PRN Reason Stop Dose Admin Acetaminophen 650 mg 08/30/24 21:40 Acetaminophen 325 Mg Tablet PO Q4H PRN Mild Pain (1-3) or Fever Acetaminophen 650 mg 08/31/24 09:00 09/02/24 08:40 Acetaminophen 325 Mg Tablet PO 650 mg BID ROSY Administration Amlodipine Besylate 10 mg 08/31/24 09:00 09/02/24 08:41 Amlodipine Besylate 10 Mg Tablet PO 10 mg DAILY ROSY Administration Aspirin 325 mg 08/31/24 09:00 09/02/24 08:40 Aspirin 325 Mg Tablet PO 325 mg DAILY ROSY Administration Atorvastatin Calcium 20 mg 08/31/24 18:00 09/01/24 18:18 Atorvastatin 20 Mg Tablet PO 20 mg QPM ROSY Administration Benzonatate 200 mg 08/31/24 14:42 Benzonatate 100 Mg Capsule PO TID PRN Cough Enoxaparin Sodium 40 mg 08/31/24 09:00 09/02/24 08:42 Enoxaparin 40 Mg/0.4 Ml Syringe SUB-Q 40 mg DAILY ROSY Administration Ferrous Sulfate 325 mg 08/31/24 09:00 09/02/24 08:41 Ferrous Sulfate [address] BY MOUTH 325 mg DAILY ROSY Administration Gabapentin 600 mg 08/31/24 09:00 09/02/24 08:41 Gabapentin 300 Mg Capsule PO 600 mg TID [facility] Administration Ceftriaxone Sodium 2 gm/ 100 mls @ 200 mls/hr 08/31/24 16:00 09/01/24 15:45 Sodium Chloride IVPB Infused Q24H ROSY Infusion Lisinopril 20 mg 08/31/24 09:00 09/02/24 08:41 Lisinopril 20 Mg Tablet PO 20 mg DAILY ROSY Administration Oxycodone/Acetaminophen 1 tablet 08/31/24 21:00 09/01/24 20:57 Oxycodone/Acetaminophen (*Crx) 5-325 Mg Tablet PO 1 tablet QHS ROSY Administration Tamsulosin HCl 0.4 mg 08/31/24 09:00 09/02/24 08:40 Tamsulosin Hcl 0.4 Mg Capsule PO 0.4 mg QAM ROSY Administration
[2024-09-02 14:00] VITALS: BP 125/54; PULSE 75; RESP 16; TEMP 36.6; O2SAT 98
[2024-09-02] MEDS: LIDOCAINE 1% LOCAL INJ 2 ML AMPUL 5 ML INFILTRATE (15:30)
[2024-09-02] MEDS: cefTRIAXone 2 GM in SODIUM CHLORIDE 0.9% IV 100 ML 200 ML IVPB (16:25)
[2024-09-02] MEDS: ATORVASTATIN 20 MG TABLET PO (16:55)
--- NOTE | 2024-09-02 16:57 | PM.DS ---
DS: Admitting Diagnosis Discharge Date 09/02/2024 Admitting Diagnosis RIC DS: Discharge Diagnosis Discharge Diagnosis (1) Acute kidney injury superimposed on stage 3b chronic kidney disease: Code(s): N17.9 - Acute kidney failure, unspecified; N18.32 - Chronic kidney disease, stage 3b Status: Acute (2) UTI (urinary tract infection): Qualifiers: Urinary tract infection type: acute cystitis Hematuria presence: without hematuria Qualified Code(s): N30.00 - Acute cystitis without hematuria Code(s): N39.0 - Urinary tract infection, site not specified Status: Acute (3) Benign prostatic hyperplasia with incomplete bladder emptying: Code(s): N40.1 - Benign prostatic hyperplasia with lower urinary tract symptoms; R39.14 - Feeling of incomplete bladder emptying Status: Acute (4) Acute hyperkalemia: Code(s): E87.5 - Hyperkalemia Status: Acute DS: Summary Hospital Course Hospital Course: # RIC Patient has acute on chronic kidney injury likely due to bladder outlet obstruction with likely underlying BPH and your infection. The the will continue IV fluid hydration and maintain Bowman catheter. on Flomax daily. hold the patient's hydrochlorothiazide and Lasix. Creatinine on admission 2.5. Baseline creatinine in mid 1s. Chronic trending down 2.0 7. Down to 1.8 # urine retention 800 mL urine drained out from the folic catheter initially Likely secondary to BPH Patient is on tamsulosin Consult urologist for evaluation treatment Follow-up with urology a as an outpatient basis for void trial # Hyponatremia Sodium trending down 131 Switch from night Ringer to normal saline IV 75 mL/hour Repeat sodium improved Stop hydrochlorothiazide # complicated UTI empiric antibiotic therapy with Cipro with pharmacy to dose due to patient's renal function. . Urine has been sent for culture and is pending. Urine culture growing Proteus mirabilis. Sensitive to ceftriaxone and has been switched to ceftriaxone. No oral option will need ceftriaxone 2 g daily for 7 total days. Five more days. Midline placed and arrange for IV antibiotics in the nursing facility prior to discharge. 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 Mucous membranes moist. NECK: Supple. CHEST: [Clear to auscultation. No respiratory distress.] HEART: [Regular rate and rhythm]. No murmur heard. [Normal peripheral pulses.] ABDOMEN: [Soft, nondistended], [nontender], [No rigidity or guarding] EXTREMITIES: Normal range of motion. 1+ edema lower extremities SKIN: Abdominal surgical scars otherwise warm dry and no rash NEURO: [No focal deficits]. Alert and oriented [x3.] PSYCH: [Normal mood and affect.] DS: Data Data Completed and Pending Labs on day of discharge: Labs from last 24 hours 09/02/24 16:46 SARS-CoV-2 RNA (RT-PCR) Pending Preliminary micro results at discharge 08/30/24 19:56 - Preliminary Urine Clean Catch Proteus mirabilis/penneri Discharge Plan Discharge Attending physician on discharge: Nitesh Mckeon Consulting providers: Lauri Ortega Discharging Clinician: Nitesh Mckeon Anticipated Discharge Date/Time: 09/02/24 16:58 Patient Disposition: SNF Activity: as tolerated Diet: heart healthy Discharge Instructions: iv ceftriaxone until 09/07/2024 remove midline after iv antibiotics are complete Weight every day. Notify if weight gain more than 3 lb Recheck labs in 1 week. Continue Bowman catheter until follow-up with Urology next week. Patient Language: Maori Stand Alone Forms: General Discharge Information, Custodial Discharge Follow-up/Referrals: Lauri Ortega MD [Physician] - 1 Week Ibrahima Bird MD [Primary Care Provider] - 1 Week Discharge Medications: New lisinopril 20 mg Tablet 20 mg PO DAILY Qty: 30 0RF ceftriaxone 2 gram recon soln 2 g IV DAILY Qty: 5 0RF tamsulosin 0.4 mg Capsule 0.4 mg PO QAM Qty: 30 0RF Continued fexofenadine 180 mg tablet 180 mg PO DAILY PRN (Reason: contact dermititis) aspirin 325 mg tablet 325 mg PO DAILY gabapentin 300 mg capsule 600 mg PO TID amlodipine 10 mg tablet 10 mg PO DAILY benzonatate 200 mg capsule 200 mg PO TID ferrous sulfate [Feosol] 325 mg (65 mg iron) tablet 325 mg PO DAILY lidocaine [Anecream] 4 % cream 1 applic topical DAILY Rx Instructions: to Rt. knee oxycodone-acetaminophen [Percocet] 5-325 mg tablet 1 tablet PO QHS acetaminophen [Tylenol] 325 mg tablet 650 mg PO BID atorvastatin 20 mg tablet 20 mg PO QPM Changed furosemide 40 mg tablet 20 mg PO QAM Qty: 90 2RF Discontinued hydrochlorothiazide 25 mg tablet 25 mg PO DAILY Dose Instruction: TAKE 1 TABLET BY MOUTH DAILY Rx Instructions: TAKE 1 TABLET BY MOUTH DAILY lisinopril 40 mg tablet See Rx Instructions .ROUTE .COMPLEX Qty: 90 2RF Dose Instruction: TAKE 1 TABLET BY MOUTH EVERY DAY Rx Instructions: TAKE 1 TABLET BY MOUTH EVERY DAY Other Ambulatory Orders: Basic Metabolic Panel (Routine) Timeframe: 1 Week Location: Determined by Patient Ordered By: Nitesh Mckeon Complete Blood Count with Diff (Routine) Timeframe: 1 Week Location: Determined by Patient Ordered By: Nitesh Mckeon Date of admission: 08/31/24 10:42 Primary Care Provider: Ibrahima Bird Admitting Provider: Irma Reynoso Attending physician on admission: Irma Reynoso Condition: Stable
[2024-09-02 17:33] LABS: SARS-CoV-2 RNA PCR Negative (Negative)
[2024-09-02 20:00] VITALS: PULSE 75; RESP 16; O2SAT 98
[2024-09-02] MEDS: SALINE LOCK FLUSH 10 ML IV PUSH (20:36)
[2024-09-02] MEDS: oxyCODONE/ACETAMINOPHEN (*CRX) 5-325 MG TABLET 1 TABLET PO (20:36)
== END 2024-09-02 21:15 | DRG 683 ==
LOC: ANHED 19:43 → ANH3MEDSUR 22:21
PROVIDERS: Admitting Provider Internal Medicine; Emergency Provider Student in an Organized Health Care Education/Training Program; PCP Family Medicine Adolescent Medicine; Visit Provider Internal Medicine
DX: N17.9 Acute kidney failure, unspecified (principal); E87.1 Hypo-osmolality and hyponatremia; N39.0 Urinary tract infection, site not specified; B96.4 Proteus (mirabilis) (morganii) as the cause of diseases classified elsewhere; N40.1 Benign prostatic hyperplasia with lower urinary tract symptoms; R39.14 Feeling of incomplete bladder emptying; R33.8 Other retention of urine; N18.32 Chronic kidney disease, stage 3b; E87.5 Hyperkalemia; E78.5 Hyperlipidemia, unspecified; I73.9 Peripheral vascular disease, unspecified; E86.0 Dehydration; M48.061 Spinal stenosis, lumbar region without neurogenic claudication; Z90.49 Acquired absence of other specified parts of digestive tract
CPT/HCPCS: 36415; 36569; 80048; 80053; 81001; 83735; 85025; 85027; 87086; 87635; 96361; 96365; 97110; 97162; 97166; 97530; 97535; 99285; A9270; C1751; G0378; J0696; J0744; J1650; J2003; J7030; J7120

== ENCOUNTER 2024-09-29 15:45 | Outpatient (CLI) | payer MEDICARE, SELFPAY ==
--- OUTSIDE RECORDS SUMMARY | 2024-09-29 15:50 | XMS_ITS | Clinical Summary ---
Author Organization [facility] Address [address] [place] [id number] Care Team Providers Care Getter Welder Name Role Phone Jayden Dkyes DO Primary Care Provider [phone] Encounters Date Type Department Care Team Description 08/28/2024 9:56 AM CDT - 08/28/2024 11:59 PM CDT Hospital Encounter [facility] [address] [place] [address] Jayden Dykes DO Discharge Disposition: Home or Self Care (Routine Discharge) 08/28/2024 Orders Only [facility] [address] [place] [id number] Jayden Dykes DO 08/17/2024 7:15 PM CDT - 08/17/2024 11:59 PM CDT Hospital Encounter [facility] [address] [place] [id number] Jayden Dykes DO Discharge Disposition: Home or Self Care (Routine Discharge) 08/17/2024 Orders Only [facility] [address] [place] [address] Jayden Dykes DO 08/10/2024 2:50 PM CDT - 08/10/2024 11:59 PM CDT Hospital Encounter [facility] [address] [place] [address] Jayden Dykes DO Discharge Disposition: Home or Self Care (Routine Discharge) 08/10/2024 Orders Only [facility] [address] [place] [address] Jayden Dykes DO 08/03/2024 7:13 AM CDT - 08/03/2024 11:59 PM CDT Hospital Encounter [facility] [address] [place] [address] Jayden Dykes, DO Discharge Disposition: Home or Self Care (Routine Discharge) 08/03/2024 Orders Only [facility] [address] [place] [address] Jayden Dykes DO 07/28/2024 3:41 PM CDT - 07/28/2024 11:59 PM CDT Hospital Encounter [email or web address] [address] [place] [address] Jayden Dykes, DO Discharge Disposition: Home or Self Care (Routine Discharge) 07/28/2024 Orders Only [email or web address] [address] [place] [address] Jayden Dykes DO 07/27/2024 12:04 PM CDT - 07/27/2024 11:59 PM CDT Hospital Encounter [facility] [address] [place] [address] Jayden Dykes, DO Discharge Disposition: Home or Self Care (Routine Discharge) 07/27/2024 Orders Only [email or web address] [address] [place] [address] Jayden Dykes DO 07/25/2024 12:08 PM CDT - 07/25/2024 11:59 PM CDT [email or web address] [address] [place] [address] Jayden Dykes DO Discharge Disposition: Home or Self Care (Routine Discharge) 07/25/2024 Orders Only [email or web address] [address] [place] [id number] Jayden Dykes DO 07/22/2024 3:10 PM CDT - 07/22/2024 11:59 PM CDT Hospital Encounter [email or web address] [address] [place] [address] Jayden Dykes, DO Discharge Disposition: Home or Self Care (Routine Discharge) 07/22/2024 Orders Only [facility] [address] [place] [address] Jayden Dykes, 07/20/2024 11:32 AM CDT - 07/20/2024 11:59 PM CDT Hospital Encounter [facility] [address] [place] [address] Jayden Dykes, DO Discharge Disposition: Home or Self Care (Routine Discharge) 07/20/2024 Orders Only [facility] [address] [place] [address] Jayden Dykes, 07/18/2024 10:42 AM CDT - 07/18/2024 11:59 PM CDT Hospital En[facility] [address] [place] [address] Jayden Dykes, DO Discharge Disposition: Home or Self Care (Routine Discharge) 07/18/2024 Orders Only [facility] [address] [place] [address] Jayden Dykes, 07/13/2024 3:21 PM CDT - 07/13/2024 11:59 PM CDT Hospital Encounter [facility] [address] [place] [address] Jayden Dykes, DO Discharge Disposition: Home or Self Care (Routine Discharge) 07/13/2024 Orders Only [facility] [address] [place] [address] Jayden Dykes, 07/06/2024 12:15 PM CDT - 07/06/2024 11:59 PM CDT Hospital Encounter [facility] [address] [place] [address] Jayden Dykes, DO Discharge Disposition: Home or Self Care (Routine Discharge) 07/06/2024 Orders Only [facility] [address] [place] [address] Jayden Dykes, 06/30/2024 7:02 AM CDT - 06/30/2024 11:59 PM CDT Hospital Encounter [facility] [address] [place] [address] Jayden Dykes DO Discharge Disposition: Home or Self Care (Routine Discharge) 06/30/2024 Orders Only [facility] [address] [place] [address] Jayden Dykes DO 06/29/2024 12:43 PM CDT - 06/29/2024 11:59 PM CDT Hospital Encounter [facility] [address] [place] [address] Jayden Dykes DO Discharge Disposition: Home or Self Care (Routine Discharge) 06/29/2024 Orders Only [facility] [address] [place] [address] Jayden Dykes DO from Last 3 Months [...] anticoagulant Routine general medical examination at a [facility] VANCOMYCIN TROUGH Routine 06/29/2024 10: 22 AM CDT Intraspinal abscess (HHS/HCC) from Last 3 Months Results * (ABNORMAL) URINE BACTERIA CULTURE (08/28/2024 4:30 AM CDT) SPEC DESCRIPTION URINE CLEAN CATCH 08/28/2024 9:57 AM CDT [facility] SPECIAL REQUESTS NO SPECIAL REQUEST 08/28/2024 9:57 AM CDT [facility] CULTURE RESULT >100,000 COL/ML PROTEUS MIRABILIS (A) 08/31/2024 7:32 AM CDT [facility] URINE SPECIMEN OBTAINED BY CLEAN CATCH PROCEDURE / Unknown 08/28/2024 4:30 AM CDT 08/28/2024 9:59 AM CDT Narrative Organism Antibiotic Method Susceptibility Proteus mirabilis AMPICILLIN THEODORA (VITEK) >=32: Resistant Proteus mirabilis AMPICILLIN/SULBACTAM THEODORA (VITEK) 4: Sensitive Proteus mirabilis CEFTRIAXONE THEODORA (VITEK) <=1: Sensitive Proteus mirabilis CEFTAZIDIME THEODORA (VITEK) <=1: Sensitive Proteus mirabilis CEFAZOLIN THEODORA (VITEK) 8: Sensitive Proteus mirabilis NITROFURANTOIN THEODORA (VITEK) 128: Resistant Proteus mirabilis GENTAMICIN THEODORA (VITEK) <=1: Sensitive Proteus mirabilis LEVOFLOXACIN THEODORA (VITEK) >=8: Resistant Proteus mirabilis PIPERACILLIN/TAZOBACTAM THEODORA (VITEK) <=4: Sensitive Proteus mirabilis TRIMETH-SULFAMETH. THEODORA (VITEK) >=320: Resistant Jayden Dykes DO MICROBIOLOGY - GENERAL ORDERABLE S Final Result [facility] [address] [place] [address], [place] [phone] [facility] [address] [place] [address], [place] [phone] * (ABNORMAL) URINALYSIS, AUTO, COMPLETE (08/28/2024 4:30 AM CDT) COLOR (U) YELLOW 08/28/2024 10:16 AM CDT [facility] TRANSPARENCY TURBID 08/28/2024 10:16 AM CDT [facility] SPECIFIC GRAVITY (U) <1.005 1.000 - 1.030 08/28/2024 10:16 AM CDT [facility] U PH 8.0 5.0 - 9.0 08/28/2024 10:16 AM CDT [facility] LEUKOCYTES (U) 3+(A) NEGATIVE 08/28/2024 10:16 AM CDT [facility] NITRITES POSITIVE(A) NEGATIVE 08/28/2024 10:16 AM CDT [facility] PROTEIN RANDOM (U) 2+(A) NEGATIVE 08/28/2024 10:16 AM CDT [facility] GLUCOSE (U) NEGATIVE NEGATIVE 08/28/2024 10:16 AM T [facility] KETONES MG/DL (U) NEGATIVE NEGATIVE 08/28/2024 10:16 AM CDT [facility] BILIRUBIN (U) NEGATIVE NEGATIVE 08/28/2024 10:16 AM T [facility] BLOOD (U) 2+(A) NEGATIVE 08/28/2024 10:16 AM CDT [facility] WBC/HPF 25-50 0 - 5 /HPF 08/28/2024 10:16 AM CDT [facility] RBC/HPF 0-5 0 - 5 /HPF 08/28/2024 10:16 AM CDT [facility] EPI/HPF RARE /HPF 08/28/2024 10:16 AM T [facility] BACTERIA (U) MANY /HPF 08/28/2024 10:16 AM T [facility] URINE CABRERA WBC CLUMPS PRESENT 08/28/2024 10:16 AM T [facility] URINE SPECIMEN OBTAINED BY CLEAN CATCH PROCEDURE / Unknown 08/28/2024 4:30 AM CDT us Jayden Dykes DO URINE ORDERABLES Final Result [facility] [address] [place] [address], [place] [phone] * (ABNORMAL) HEMOGLOBIN, GLYCOSYLATED (08/17/2024 6:00 PM CDT) HGB A1C 5.7(H) <5.7 % 08/17/2024 7:40 PM CDT [facility] Comment: INCREASED RISK OF DIABETES <5.7% NON-DIABETES 5.7-6.4% INCREASED RISK FOR FUTURE DIABETES > OR = 6.5 CONSISTENT WITH DIABETES STANDARDS OF MEDICAL CARE IN DIABETES-2010 DIABETES CARE, 33(SUPP 1): S1-S61,2010 ESTIMATED AVG GLUCOSE 117 mg/dL 08/17/2024 7:40 PM CDT [facility] 08/17/2024 6:00 PM CDT us Jayden Dykes DO LABORATORY Final Result Performing Organization Address [facility] Co de Phone Number [facility] [address] [place] [address], [place] [phone] * (ABNORMAL) SED RATE, ERYTHROCYTE (ESR) (08/17/2024 6:00 PM CDT) Only the most recent of7 resultswithin the time period is included. ESR 58(H) 0 - 20 MM/HR 08/17/2024 7:28 PM CDT [facility] 08/17/2024 6:00 PM CDT us Jayden Dykes DO LABORATORY Final Result Performing Organization Address [facility] Co de Phone Number [facility] [address] [place] [address], [place] [phone] * (ABNORMAL) COMPREHENSIVE METABOLIC PANEL (08/17/2024 6:00 PM CDT) Only the most recent of7 resultswithin the time period is included. GLUCOSE 143(H) 70 - 99 MG/DL 08/17/2024 7:39 PM CDT [facility] BUN 41(H) 7 - 18 MG/DL 08/17/2024 7:39 PM [facility] CREATININE S/P/B 1.76(H) 0.7 - 1.3 MG/DL 08/17/2024 7:39 PM [facility] SODIUM S/P/B 135(L) 136 - 145 MMOL/L 08/17/2024 7:39 PM [facility] POTASSIUM S/P/B 4.5 3.5 - 5.1 MMOL/L 08/17/2024 7:39 PM [facility] CHLORIDE S/P/B 100 100 - 108 MMOL/L 08/17/2024 7:39 PM [facility] CO2 30.3 21 - 32 MMOL/L 08/17/2024 7:39 PM [facility] CALCIUM S/P/B 9.0 8.5 - 10.1 MG/DL 08/17/2024 7:39 PM [facility] BILIRUBIN TOTAL S/P/B 0.2 0.2 - 1.2 MG/DL 08/17/2024 7:39 PM [facility] TOTAL PROTEIN S/P/B 7.7 6.4 - 8.2 G/DL 08/17/2024 7:39 PM [facility] ALBUMIN S/P/B 3.4 3.4 - 5.0 G/DL 08/17/2024 7:39 PM [facility] AST 17 15 - 37 U/L 08/17/2024 7:39 PM [facility] ALT 17 16 - 60 U/L 08/17/2024 7:39 PM [facility] ALKALINE PHOSPHATASE S/P/B 114 50 - 136 U/L 08/17/2024 7:39 PM CDT [facility] ANION GAP 4.7(L) 5 - 15 MMOL/L 08/17/2024 7:39 PM CDT [facility] BUN CREATININE RATIO 23.3 6 - 26 08/17/2024 7:39 PM CDT [facility] A/G RATIO 0.8(L) 1.0 - 2.0 RATIO 08/17/2024 7:39 PM T [facility] GFR ESTIMATE 39(L) >90 ML/MIN/1.7 3 M2 08/17/2024 7:39 PM CDT [facility] Comment: NOTE: eGFR is not [...] DO LABORATORY Final Result Performing Organization Address City/[facility]/ZIP Co de Phone Number [facility] [address] [place] [address], [place] [phone] * (ABNORMAL) C-REACTIVE PROTEIN, HIGH SENSI (08/17/2024 6:00 PM CDT) Only the most recent of6 resultswithin the time period is included. HS-CRP 0.93(H) <0.3 mg/dL 08/18/2024 1:00 PM CDT [facility] 08/17/2024 6:00 PM CDT us Jayden Dykes DO LABORATORY Final Result [facility] [address] [place] [address], [place] [phone] * (ABNORMAL) C-REACTIVE PROTEIN (08/17/2024 6:00 PM CDT) Only the most recent of3 resultswithin the time period is included. [facility] C-REACTIVE PROTEIN 1.08(H) <0.29 mg/dL 08/18/2024 1:09 PM CDT [facility] 08/17/2024 6:00 PM CDT Jayden Dykes DO LABORATORY Final Result [facility] [address] [place] [address], [place] [phone] * (ABNORMAL) CBC W/DIFF AUTOMATED (08/17/2024 6:00 PM CDT) Only the most recent of7 resultswithin the time period is included. [facility] WBC 8.43 4.4 - 11.0 x10'3/uL 08/17/2024 7:26 PM CDT [facility] RBC 3.35(L) 4.50 - 5.90 x10'6/uL 08/17/2024 7:26 PM CDT [facility] HGB 10.1(L) 14.0 - 17.5 G/DL 08/17/2024 7:26 PM CDT [facility] HCT 31.5(L) 41.5 - 50.4 % 08/17/2024 7:26 PM CDT [facility] MCV 94.0 80.0 - 96.0 FL 08/17/2024 7:26 PM CDT [facility] MCH 30.1 26.5 - 31.4 PG 08/17/2024 7:26 PM CDT [facility] MCHC 32.1 31.9 - 34.8 G/DL 08/17/2024 7:26 PM CDT [facility] RDW 15.4(H) 12.3 - 14.3 % 08/17/2024 7:26 PM CDT [facility] PLT 268 151 - 353 x10'3/uL 08/17/2024 7:26 PM CDT [facility] MPV 11.9 9.7 - 11.9 FL 08/17/2024 7:26 PM CDT [facility] RBC MORPHOLOGY NORMAL 08/17/2024 7:26 PM T [facility] PLT MORPH. NORMAL 08/17/2024 7:26 PM T [facility] WBC MORPHOLOGY NORMAL 08/17/2024 7:26 PM T [facility] LYMPHOCYTES % 17.3 15.8 - 45.0 % 08/17/2024 7:26 PM T [facility] NEUTROPHILS % 62.9 42.1 - 71.9 % 08/17/2024 7:26 PM CDT [facility] MONOCYTES % 7.7 5.7 - 12.5 % 08/17/2024 7:26 PM T [facility] EOSINOPHILS 10.9(H) 0.0 - 5.6 % 08/17/2024 7:26 PM CDT [facility] BASOPHILS 0.8 0.0 - 1.3 % 08/17/2024 7:26 PM CDT [facility] ABS. NEUTROPHILS 5.30 1.40 - 6.00 x10'3/uL 08/17/2024 7:26 PM CDT [facility] IMMATURE GRANS % 0.4 0.0 - 0.5 % 08/17/2024 7:26 PM CDT [facility] ABS. LYMPHOCYTES 1.46 0.80 - 4.70 x10'3/uL 08/17/2024 7:26 PM CDT [facility] 08/17/2024 6:00 PM CDT us Jayden Dykes DO LABORATORY Final Result Performing Organization Address City/[facility] Co de Phone Number [facility] [address] [place] [address], [place] [phone] * CK (CPK) (08/17/2024 6:00 PM CDT) Only the most recent of4 resultswithin the time period is included. CPK 133 39 - 308 U/L 08/17/2024 7:39 PM CDT [facility] 08/17/2024 6:00 PM CDT us Jayden Dykes DO LABORATORY Final Result Performing Organization Address [facility] Co de Phone Number [facility] [address] [place] [address], [place] [phone] * CKMB(MB FRACTION ONLY) (08/10/2024 1:20 PM CDT) Only the most recent of2 resultswithin the time period is included. CK-MB 1.2 0.5 - 3.6 NG/ML 08/11/2024 4:56 PM CDT [facility] 08/10/2024 1:20 PM CDT us Jayden Dykes DO LABORATORY Final Result Performing Organization Address City/[facility] Co de Phone Number [facility] [address] [place] [address], [place] [phone] * TROPONIN, QUANT (08/10/2024 1:20 PM CDT) Only the most recent of2 resultswithin the time period is included. TROPONIN I HIGH SENSITIVITY 5 0 - 75 ng/L 08/10/2024 3:50 PM CDT [facility] Comment: HIGH DOSES OF BIOTIN, TROPONIN-SPECIFIC AUTOANTIBODIES, AND ANTIBODY THERAPY CONTAINING HAMA MAY INTERFERE WITH THIS TEST RESULT. CORRELATION TO CLINICAL HISTORY AND PRESENTATION RECOMMENDED. 08/10/2024 1:20 PM CDT us Jayden Dykes DO LABORATORY Final Result Performing Organization Address [facility] de Phone Number [facility] [address] [place] [address], [place] [phone] * VANCOMYCIN TROUGH (07/25/2024 11:00 AM CDT) Only the most recent of5 resultswithin the time period is included. [facility] VANCOMYCIN TROUGH 17.9 10 - 20 MCG/ML 07/25/2024 12:30 PM CDT [facility] Comment: THERAPEUTIC: 10.0-20.0 TOXIC: >25.0 07/25/2024 11:0 0 AM CDT us Jayden Dykes DO LABORATORY Final Result Performing Organization Address [facility] de Phone Number [facility] [address] [place] [address], [place] [phone] * (ABNORMAL) CBC, MANUAL DIFF (07/06/2024 10:35 AM CDT) [facility] WBC 8.10 4.4 - 11.0 x10'3/uL 07/06/2024 12:34 PM CDT [facility] RBC 2.95(L) 4.50 - 5.90 x10'6/uL 07/06/2024 12:34 PM CDT [facility] HGB 8.8(L) 14.0 - 17.5 G/DL 07/06/2024 12:34 PM [facility] HCT 27.8(L) 41.5 - 50.4 % 07/06/2024 12:34 PM T [facility] MCV 94.2 80.0 - 96.0 FL 07/06/2024 12:34 PM T [facility] MCH 29.8 26.5 - 31.4 PG 07/06/2024 12:34 PM T [facility] MCHC 31.7(L) 31.9 - 34.8 G/DL 07/06/2024 12:34 PM T [facility] RDW 15.6(H) 12.3 - 14.3 % 07/06/2024 12:34 PM [facility] PLT 268 151 - 353 x10'3/uL 07/06/2024 12:34 PM T [facility] MPV 11.9 9.7 - 11.9 FL 07/06/2024 12:34 PM T [facility] RBC MORPHOLOGY NORMAL 07/06/2024 12:34 PM [facility] PLT MORPH. NORMAL 07/06/2024 12:34 PM [facility] WBC MORPHOLOGY NORMAL 07/06/2024 12:34 PM T [facility] SEG NEUTROPHILS 63 42 - 72 % 12:46 PM T [facility] LYMPHOCYTES 22 15.8 - 45.0 % 07/06/2024 12:46 PM T [facility] MONOCYTES 6 5.7 - 12.5 % 07/06/2024 12:46 PM [facility] EOSINOPHILS 9(H) 0 - 5.6 % 07/06/2024 12:46 PM T [facility] ABS. NEUTROPHILS 5.10 1.40 - 6.00 x10'3/uL 07/06/2024 12:46 PM CDT [facility] ABS. LYMPHOCYTES 1.78 0.80 - 4.70 x10'3/uL 07/06/2024 12:46 PM CDT [facility] 07/06/2024 10:3 5 AM CDT Jayden Dykes DO LABORATORY Final Result [facility] [address] [place] [address], [place] [phone] * (ABNORMAL) WBC WI DIFFERENTIAL (06/30/2024 5:40 AM CDT) WBC 7.96 4.50 - 11.00 x10'3/uL 06/30/2024 7:30 AM CDT [facility] DIFFERENTIAL TYPE MANUAL DIFFERENTIAL 07/01/2024 6:21 AM CDT [facility] SEG NEUTROPHILS 71 % 12:03 PM CDT [facility] LYMPHOCYTES 21 % 06/30/2024 12:03 PM CDT [facility] EOSINOPHILS 6 % 06/30/2024 12:03 PM CDT [facility] BASOPHILS 2 % 06/30/2024 12:03 PM CDT [facility] ABS. NEUTROPHILS 5.65 1.80 - 7.70 x10'3/uL 06/30/2024 12:03 PM CDT [facility] ABS. LYMPHOCYTES 1.67 1.00 - 4.80 x10'3/uL 06/30/2024 12:03 PM CDT [facility] ABS. EOSINOPHILS 0.48 0.04 - 0.54 x10'3/uL 06/30/2024 12:03 PM CDT [facility] ABS. BASOPHILS 0.16(H) 0.01 - 0.08 x10'3/uL 06/30/2024 12:03 PM CDT [facility] RBC MORPHOLOGY RBC MORPHOLOGY APPEARS NORMAL. SLIDE REVIEWED. 06/30/2024 12:03 PM CDT [facility] PLT EST. ADEQUATE 06/30/2024 12:03 PM CDT [facility] 06/30/2024 5:40 AM CDT Jayden Dykes DO LABORATORY Final Result [facility] [address] [place] [address], [facility] [address] [facility] [place] [address], from Last 3 Months Insurance AET [facility] FACILITY Care Teams Getter Welder Relationship Specialty Start Date End Date Jayden Dykes DO PCP - General INTERNAL MEDICINE 06/15/24
--- OUTSIDE RECORDS SUMMARY | 2024-09-29 15:50 | XMS_ITS | Continuity of Care Document ---
Author Organization [facility] Address [address] [facility] [address] [place] [address] Insurance Providers Payer Plan Claims Address Claims Phone Policy Number Group Number Relation Employer Guarantor Name Guarantor Guarantor Address Guarantor Phone [facility] [id number] Self Ludin Menon 1945 [address] [place] [address] [facility] [id number] Self Ludin Menon 1945 [address] [place] [address] [facility] [address], [place] [address] tel:[phone] [id number] Self Ludin Menon 1945 [address] [place] [address] Problems Condition ICD9 code ICD10 code SNOMED code Start Date End Date S tatus Anemia, unspecified D64.9 Impaired fasting glucose R73.01 Results No Results Allergies, adverse reactions, alerts No known allergies and adverse reactions Medications No administered medications reported Vital Signs No vital signs reported Social History No smoking Hx information available
--- OUTSIDE RECORDS SUMMARY | 2024-09-29 15:50 | XMS_ITS | Encounter Summary ---
Author Organization [facility] Address [address] [place] [address] Care Team Providers Care Media Operator Name Role Phone Ibrahima Bird MD Primary Care Provider + Encounter Details Date Type Department Care Team (Late st Contact Info) Description 09/02/2024 Results Follow-Up [facility] - Infectious Disease [address] [id number] Thalia Pichardo PA-C [address] [place] [address] Social History Tobacco Use Types Packs/Day Years [...] Recorded Patient Health Questionnaire-2 Score 0 07/21/2024 [facility] [facility] Occupat ional Health - Occupational Stress [...] any time in the past 12 m [facility], were you homeless or living in a skilled nursing (including now)? 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
--- OUTSIDE RECORDS SUMMARY | 2024-09-29 15:50 | XMS_ITS | Clinical Summary ---
Author Organization [facility] [employer] Address [address] [place] [address] Care Team Providers Care Engraver Steel Plate Name Role Phone Ibrahima Bird MD Primary Care Provider + Source Comments [facility] [employer],non-owned Affiliates and Associated Physician Practices is amultiple site organization consisting of ambulatory clinics and hospital sitesin [place], [place], [place] and [place]. This disclosure is being madepursuant to the Care Everywhere program and may not contain all information available regarding this patient. Last updated 17.[facility] Allergies Active Allergy Reactions Criticality Noted Date [...] changes -Currently psoas drain draining well, f/u [facility] IR for drain maintenance. -Small c [...] changes -Currently psoas drain draining well, /u [facility] IR for drain maintenance. -Small c [...] as above) -Currently psoas drain draining well, /[facility] for drain maintenance. Assessment [...] above) -Currently psoas drain draining well, /u [facility] IR for drain maintenance. Assessment & [...] above) -Currently psoas drain draining well, f/u [facility] for drain maintenance. Assessment & [...] above) -Currently psoas drain draining well, f/u [facility] for drain maintenance. Assessment & [...] above) -Currently psoas drain draining well, f/u [facility] IR for drain maintenance. Assessment & [...] AM CDT): -s/p Ex-lap w/ repair at [facility] -G tube in place -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, no further intervention per OSH surgery -PPI -o/p f/u with [facility] surgery Assessment & Plan (06/13/2024 10:04 AM CDT): -s/p Ex-lap w/ repair at [facility] -G tube in place -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, no further intervention per OSH surgery -PPI -o/p f/u with [facility] surgery Assessment & Plan (06/12/2024 7:55 AM CDT): -s/p Ex-lap w/ repair at [facility] -G tube in place -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, no further intervention per OSH surgery -PPI -o/p f/u with [facility] surgery Assessment & Plan (06/11/2024 10:18 AM CDT): -s/p Ex-lap w/ repair at [facility] -G tube in place -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, no further intervention per OSH surgery -PPI -o/p f/u with [facility] surgery Assessment & Plan (06/10/2024 10:08 AM CDT): -s/p Ex-lap w/ repair at [facility] -G tube in place -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, no further intervention per OSH surgery -PPI -o/p f/u with [facility] surgery Assessment & Plan (06/09/2024 1:40 PM CDT): -s/p Ex-lap w/ repair at [facility] -G tube in place -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, no further intervention per OSH surgery -PPI -o/p f/u with [facility] surgery Assessment & Plan (06/08/2024 1:56 PM CDT): -s/p Ex-lap w/ repair at [facility] -G tube in place -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, no further intervention per OSH surgery -PPI -o/p f/u with [facility] surgery Assessment & Plan (06/07/2024 4:46 PM CDT): -s/p Ex-lap w/ repair at [facility] -G tube in place -CT 05/22 w/ sequelae of perforation, no further intervention per OSH surgery -PPI -o/p f/u with [facility] Assessment & Plan (06/06/2024 9:53 AM CDT): -s/p Ex-lap w/ repair at [facility] -G tube in place -CT 05/22 w/ sequelae of perforation, no further intervention per OSH surgery PLAN -PPI -o/p f/u with [facility] -If concern for recurrent perf, will consult [facility] Assessment & Plan (06/05/2024 11:03 AM CDT): -s/p Ex-lap w/ repair at [facility] -G tube in place -CT 05/22 w/ sequelae of perforation, no further intervention per OSH surgery PLAN -PPI -o/p f/u with [facility] -If concern for recurrent perf, will consult [facility] Assessment & Plan (06/04/2024 8:01 PM CDT): - s/p Ex-Lap with Repair at [facility] - G-tube in place, receiving [...] to retain, odom inserted-- voiding trial with [facility] urology appt confirmed. Assessment & Plan (06/13/2024 10:04 AM CDT): -b/l Cr 1.5, Stable -voiding trial since 06/06, had to straight cath pt, he was retaining over 500, unable to void since odom removal around 0500. 700cc recorded. -continues to retain, odom inserted-- voiding trial with [facility] urology appt confirmed. Assessment & Plan (06/12/2024 7:55 AM CDT): -b/l Cr 1.5, Stable -voiding trial since 06/06, had to straight cath pt, he was retaining over 500, unable to void since odom removal around 0500. 700cc recorded. -continues to retain, odom inserted-- voiding trial with [facility] urology appt confirmed. Assessment & Plan (06/11/2024 10:18 AM CDT): -b/l Cr 1.5, Stable -voiding trial since 06/06, had to straight cath pt, he was retaining over 500, unable to void since odom removal around 0500. 700cc recorded. -continues to retain, odom inserted-- voiding trial with [facility] urology appt confirmed. Assessment & Plan (06/10/2024 [...] AM CDT): -b/l Cr 1.5 -Stable -Has odmo in place, likely voiding trial soon pending [...] changes -Currently psoas drain draining well, f/u [facility] IR for drain maintenance. -Small c [...] above) -Currently psoas drain draining well, f/u [facility] IR for drain maintenance. Assessment & [...] above) -Currently psoas drain draining well, f/u [facility] IR for drain maintenance. Assessment & [...] above) -Currently psoas drain draining well, f/u [facility] IR for drain maintenance. Assessment & [...] above) -Currently psoas drain draining well, f/u [facility] for drain maintenance. Assessment & [...] above) -Currently psoas drain draining well, f/u [facility] IR for drain maintenance. Assessment & [...] above) -Currently psoas drain draining well, f/u [facility] IR for drain maintenance. Assessment & [...] above) -Currently psoas drain draining well, f/u [facility] IR for drain maintenance. 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 Assessment & Plan (06/05/2024 11:03 AM CDT): -Had MBS at Osh -Cont TF through Gtube -SOCIAL MEDIA EXECUTIVE eval Encounters Date Type Department Care Team Description 09/02/2024 Results Follow-Up [facility] - Infectious Disease [address] [place] [address], [place] [address] Thalia Pichardo PA-C 09/02/2024 Telephone [facility] - Orthopedics [address] [place] [phone] Vish Antonio MD Surgery Scheduling 08/31/2024 Orders Only [facility] - Orthopedics [address] [place] [phone] Fariha Moreira, RN Spinal stenosis of lumbar region with neurogenic claudication 08/30/2024 10:43 AM CDT - 08/30/2024 11:59 PM CDT Hospital Encounter [facility] LAB OP DRAW STATION [address] [place] [address] Vish Antonio MD Discharge Disposition: Home or Self Care 08/30/2024 9:30 AM CDT Office Visit [facility] - Orthopedics [address] [place] [phone] Vish Antonio MD Spinal stenosis of lumbar region with neurogenic claudication (Primary Dx) 08/30/2024 8:57 AM CDT - 08/30/2024 10:42 AM CDT Hospital Encounter [facility] DIAGNOSTIC RAD [address]SM [address] [facility] [place] [address] Vish Antonio MD Discharge Disposition: Home or Self Care 08/30/2024 Telephone [facility] - Infectious Disease [address] [place] [phone] Thalia Pichardo PA-C Results 08/30/2024 Travel 08/29/2024 Orders Only [facility] - Orthopedics [address] [place] [phone] Vish Antonio MD Lumbar spine pain 08/25/2024 Orders Only [facility] - Infectious Disease [address] [place] [phone] Thalia Pichardo PA-C Psoas abscess, right (HCC) ; MRSA bacteremia 08/23/2024 Telephone [facility] - Infectious Disease [address] [place] [phone] Thalia Pichardo PA-C Follow-up 08/22/2024 1:17 PM CDT - 08/22/2024 11:59 PM CDT Hospital Encounter [facility] - MRI [address] [place] [address] Thalia Pichardo PA-C Discharge Disposition: Home or Self Care 07/28/2024 Telephone [facility] - Infectious Disease [address] [place] [phone] Thalia Pichardo PA-C Follow-up 07/26/2024 9:15 AM CDT Office Visit [facility] - Orthopedics [address] [place] [phone] Vish Antonio MD Lumbar spine pain (Primary Dx) 07/26/2024 8:34 AM CDT - 07/26/2024 11:59 PM CDT Hospital Encounter [facility] DIAGNOSTIC RAD [address] [facility] [place] [address] Vish Antonio MD Discharge Disposition: Home or Self Care 07/26/2024 Travel 07/21/2024 10:30 AM CDT [facility] [address] [place] [phone] Thalia Pichardo PA-C Psoas abscess, right (HCC) (Primary Dx); MRSA bacteremia; Osteomyelitis of lumbar spine (HCC); Septic arthritis of lumbar spine 07/21/2024 Travel 07/19/2024 5:15 PM CDT - 07/19/2024 11:59 PM CDT Hospital Encounter [facility] MRI [address] [place] [address] Thalia Pichardo PA-C Discharge Disposition: Home or Self Care 07/19/2024 Travel 07/06/2024 Telephone [facility] - Infectious Disease [address] [facility], [place] [address] Thalia Pichardo PA-C LABS ONLY 07/06/2024 Orders Only [facility] [address] [place] [address] Ely Santos, PharmD 07/01/2024 Telephone [facility] - [facility]ious Disease [address] [place] [address] Thalia Pichardo PA-C Results from Last 3 Months Social History Tobacco [...] Recorded Patient Health Questionnaire-2 Score 0 07/21/2024 [facility] [place] [facility] - Occupational Stress [...] time in the past 12 m [facility], were you homeless or living in a intermediate (including now)? 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 Gender Identity Not on file Sexual [...] lumbar spine (HCC) LAB RESULTS ORDER 07/13/2024 from Last 3 Months Results * (ABNORMAL) C-REACTIVE PROTEIN (08/30/2024 11:08 AM CDT) Pathologist [facility] C-Reactive Protein 8.6(H) <=0.5 mg/dL 08/30/2024 12:34 PM CDT [facility] Blood BLOOD SPECIMEN / Unknown Lab Venipuncture / Unknown 08/30/2024 11:08 AM CDT 08/30/2024 11:48 AM CDT us Thalia Pichardo PA-C LAB - CHEMISTRY ORDERABLES F inal Result [address] [address], [facility] [phone] * (ABNORMAL) ERYTHROCYTE SEDIMENTATION RATE (08/30/2024 11:08 AM CDT) [facility] Erythrocyte Sedimentation Rate Westergren 105(H) 0 - 20 MM/HR 08/30/2024 12:19 PM CDT [facility] Blood BLOOD SPECIMEN / Unknown Lab Venipuncture / Unknown 08/30/2024 11:08 AM CDT 08/30/2024 11:52 AM CDT us Thalia Pichardo PA-C LAB - HEMATOLOGY ORDERABLES Final Result [address] [phone], [facility] [phone] * (ABNORMAL) CBC W/ DIFFERENTIAL (08/30/2024 11:08 AM CDT) Pathologist [facility] WBC 8.6 4.0 - 10.7 x10E9/L 08/30/2024 12:06 PM [facility] RBC Count 3.44(L) 4.30 - 5.80 x10E12/L 08/30/2024 12:06 PM [facility] Hemoglobin 10.1(L) 13.3 - 17.5 g/dL 08/30/2024 12:06 PM [facility] Hematocrit 31.4(L) 38.7 - 51.1 % 08/30/2024 12:06 PM [facility] MCV 91.3 80.0 - 98.0 fL 08/30/2024 12:06 PM [facility] MCH 29.4 26.7 - 33.6 pg 08/30/2024 12:06 PM [facility] MCHC 32.2 31.7 - 36.3 g/dL 08/30/2024 12:06 PM [facility] RDW-CV 15.1(H) 11.3 - 14.8 % 08/30/2024 12:06 PM [facility] Platelet Count 236 150 - 420 x10E9/L 08/30/2024 12:06 PM [facility] MPV 11.9(H) 7.8 - 11.4 fL 08/30/2024 12:06 PM [facility] Neutrophil % 70.4 41.0 - 74.0 % 08/30/2024 12:06 PM [facility] Lymphocyte % 12.6(L) 17.0 - 47.0 % 08/30/2024 12:06 PM [facility] Monocyte % 9.0 3.0 - 11.0 % 08/30/2024 12:06 PM [facility] Eosinophil % 6.9 0.0 - 7.0 % 08/30/2024 12:06 PM [facility] Basophil % 0.6 0.0 - 1.6 % 08/30/2024 12:06 PM [facility] Immature Granulocytes % 0.5 0.0 - 1.0 % 08/30/2024 12:06 PM [facility] Neutrophil Absolute 6.03 1.60 - 7.50 x10E9/L 08/30/2024 12:06 PM [facility] Lymphocyte Absolute 1.08 1.00 - 4.40 x10E9/L 08/30/2024 12:06 PM [facility] Monocyte Absolute 0.77 0.15 - 1.00 x10E9/L 08/30/2024 12:06 PM [facility] Eosinophil Absolute 0.59 0.00 - 0.60 x10E9/L 08/30/2024 12:06 PM [facility] Basophil Absolute 0.05 0.00 - 0.13 x10E9/L 08/30/2024 12:06 PM [facility] Blood BLOOD SPECIMEN / Unknown Lab Venipuncture / Unknown 08/30/2024 11:08 AM CDT 08/30/2024 11:52 AM CDT us Thalia Pichardo PA-C LAB - HEMATOLOGY ORDERABLES Final Result Performing Organization Address City/State/[facility] Co de Phone Number [facility] [address] [place] [phone], [facility] [phone] * (ABNORMAL) COMPREHENSIVE METABOLIC PANEL (08/30/2024 11:08 AM CDT) BUN 54(H) 7 - 26 mg/dL 08/30/2024 12:34 PM [facility] Creatinine 2.17(H) 0.71 - 1.16 mg/dL 08/30/2024 12:34 PM [facility] Sodium 133(L) 136 - 145 mmol/L 08/30/2024 12:34 PM [facility] Potassium 4.6(H) 3.5 - 4.5 mmol/L 08/30/2024 12:34 PM [facility] Chloride 102 98 - 107 mmol/L 08/30/2024 12:34 PM [facility] CO2 19(L) 22 - 29 mmol/L 08/30/2024 12:34 PM [facility] Glucose 96 70 - 99 mg/dL 08/30/2024 12:34 PM [facility] Calcium 9.6 8.4 - 10.2 mg/dL 08/30/2024 12:34 PM [facility] Protein Total 7.7 6.0 - 8.3 g/dL 08/30/2024 12:34 PM [facility] Albumin 3.7 3.4 - 5.0 g/dL 08/30/2024 12:34 PM [facility] Bilirubin Total 0.3 0.2 - 1.2 mg/dL 08/30/2024 12:34 PM [facility] Alkaline Phosphatase 95 40 - 150 U/L 08/30/2024 12:34 PM [facility] ALT 10 5 - 55 U/L 08/30/2024 12:34 PM [facility] AST 11 5 - 34 U/L 08/30/2024 12:34 PM [facility] Anion Gap 12 6 - 16 08/30/2024 12:34 PM [facility] BUN/Creatinine Ratio 25(H) 7 - 23 08/30/2024 12:34 PM [facility] Osmolality Calculated 291 275 - 295 mOsm/kg 08/30/2024 12:34 PM [facility] Albumin/Globulin Ratio 0.9(L) 1.1 - 2.3 08/30/2024 12:34 PM [facility] eGFR by CKD-EPI 31(L) >=90 mL/min/1.7 3 m2 08/30/2024 12:34 PM [facility] Comment:Estimated Glomerular Filtration Rate (eGFR) calculated using the CKD-EPI Creatinine Equation (2020), per the National Kidney Foundation and [place] [employer]ph[employer] recommendations. Blood BLOOD SPECIMEN / Unknown Lab Venipuncture / Unknown 08/30/2024 11:08 AM CDT 08/30/2024 11:48 AM CDT us Thalia Pichardo PA-C LAB - CHEMISTRY ORDERABLES F inal Result [facility] [address] [place] [address], [facility] [phone] * XR Lumbar Spine 2 or 3Vw (08/30/2024 9:11 AM CDT) Only the most recent of2 resultswithin the time period is included. Anatomical Region Laterality Modality Spine Computed Radiogr aphy 08/30/2024 10:0 9 AM CDT Impressions 08/30/2024 10:25 AM CDT IMPRESSION: Moderate to severe lumbar spondylosis again demonstrated. Report was dictated by John Marcano MD, (Integrated VIR resident). Kevin Pérez MD have personally reviewed and interpreted this examination/study. > Interpreting Provider: Kevin Kim MD on 08/30/2024 10:25 AM Narrative 08/30/2024 10:25 AM CDT PROCEDURE: XR LUMBAR SPINE 2 OR 3VW, DATE/TIME OF EXAM: 08/30/2024 9:11 AM, LOCATION [facility] INDICATION: M54.50: Lumbar spine pain ADDITIONAL CLINICAL [...] OF EXAM: 08/30/2024 9:11 AM, LOCATION [facility] INDICATION: M54.50: Lumbar spine pain ADDITIONAL CLINICAL [...] by John Marcano MD, (Integrated VIR resident). Kevin Pérez MD have personally reviewed and interpreted [...] CONTRAST Exam Date: 08/22/2024 3:00 PM Location: [facility] Indication: K68.12: Psoas abscess, right (HCC) COMPARISON: [...] by a Odom catheter. There is some mild bladder wall [...] CONTRAST Exam Date: 08/22/2024 3:00 PM Location: [facility] Indication: K68.12: Psoas abscess, right (HCC) COMPARISON: [...] Honorio Bartlett MD on 08/22/2024 3:33 PM Thalia Pichardo PA-C MR ORDERABLES Final Result * LAB RESULTS ORDER (08/10/2024) Only the most recent of3 resultswithin the time period is included. 08/10/2024 Narrative 08/10/2024 Ordered by an unspecified provider. us Scanned Document LAB - THERAPEUTIC DRUG MONITORI NG ORDERABLES Final Result * MRI Lumbar Spine Wwo Contrast (07/19/2024 6:05 PM CDT) Anatomical Region Laterality Modality Spine [...] report is dictated by Fitz Roque MD, (Solutions Sales Executive) I, Luci Marques MD have personally reviewed and interpreted this examination/study. > Interpreting Provider: Luci Marques MD on 07/29/2024 4:55 PM Narrative 07/29/2024 4:55 PM CDT PROCEDURE: MRI LUMBAR SPINE WWO CONTRAST, DATE/TIME OF EXAM: 07/19/2024 6:06 PM, LOCATION [facility] INDICATION: R78.81: MRSA bacteremia B95.62: MRSA bacteremia [...] levels. Procedure Note Luci Marques MD - 07/29/2024 PROCEDURE: MRI LUMBAR SPINE WWO CONTRAST, DATE/TIME OF EXAM: 07/19/2024 6:06 PM, LOCATION [facility] INDICATION: R78.81: MRSA bacteremia B95.62: MRSA bacteremia [...] report is dictated by Fitz Roque MD, (S[employer] Sales Executive) I, Luci Marques MD have personally reviewed and interpreted this examination/study. > Interpreting Provider: Luci Marques MD on 07/29/2024 4:55 PM us Thalia Pichardo PA-C MR ORDERABLES Final Result from Last 3 Months Additional Health Concerns Infection Onset Date Last Indicated MRSA 06/07/2024 06/07/2024 Insurance [employer] MED[employer]ARE ADV SELF PAY NO INSURANCE Member Subscriber Plan / Payer (Ef fective for All Dates) Name:Evan Lacey Member ID:Not on file Relation to Subscriber:Not on file Name:EVAN LACEY Subscriber ID:Not on file (Home) Address: [address] [place] [phone] Payer ID:Not on file Group ID:Not on file Type:Self Pay Address: [place], [place] Advance Directives * Full Code (Latest Code Status on File) Date Activated Date Inactivated Comments 06/04/2024 6:21 PM 06/14/2024 2:19 PM Care Teams Engraver Steel Plate Relationship Specialty Start Date End Date Ibrahima Bird MD [address] [address] PCP - General Family Medicine 06/24/24
[2024-09-29 16:51] LABS: Hematocrit 33.1 % (42.0-52.0); Hemoglobin 10.3 g/dL (14.0-18.0); Immature Granulocyte Percent A 0.3 % (0-0.5); Lymphocytes Absolute Auto 1.24 K/mm3 (0.9-3.2); Mean Corpuscular HGB Conc 31.1 g/dl (32-36); Mean Corpuscular Hemoglobin 29.2 pg (26-34); Mean Corpuscular Volume 93.8 fl (80-100); Nucleated Red Blood Cells Absolute Auto 0.000 K/mm3 (0.0-0.012); Nucleated Red Blood Cells Perc 0.0 % (0.0-0.2); Platelet Count Result 197 k/mm3 (150-375); Red Blood Count 3.53 M/mm3 (4.6-6.20); White Blood Count 7.5 K/mm3 (4.5-10.0)
[2024-09-29 17:07] LABS: Alanine Aminotransferase 13 U/L (6-50); Albumin Level 4.3 g/dL (3.5-5.1); Alkaline Phosphatase 108 U/L (38-126); Anion Gap 8 mmol/L (4-12); Aspartate Amino Transferase 24 U/L (17-59); Bilirubin,Total 0.3 mg/dL (0.2-1.3); Blood Urea Nitrogen 36 mg/dL (9-20); Calcium 9.7 mg/dL (8.4-10.2); Carbon Dioxide 27 mmol/L (22-30); Chloride 101 mmol/L (98-107); Estimated Glomerular Filt Rate 50; Glucose 105 mg/dL (65-110); Potassium 4.8 mmol/L (3.4-5.0); Sodium 136 mmol/L (137-145); Total Protein 7.9 g/dL (6.3-8.2)
--- OUTSIDE RECORDS SUMMARY | 2024-11-07 19:00 | XMS_ITS | Clinical Summary ---
Author Organization Unknown Care Team Providers Care Heel Attacher Wood Name Role Phone ALVAROJEANNA VAUGHN Unavailable Unavailable VEENA PHYSICAL THERAPIST, CHANG Unavailable Unavailable GILDA SPEECH THERAPIST, MS, CCC/HOTEL OPERATIONS MANAGER, GALILEA Un available Unavailable WALESKA INTERCELL CONNECTOR PLACER, JUANITO Unavail able Unavailable CHENTE REGISTERED NURSE CASING TRIMMER, LAISHA Thais vailable Unavailable VILLA OCCUPATIONAL THERAPIST, PAULETTE Unavailable Unavailable VALERIO HOME HEALTH AIDE, ARGENIS Unavailable U navailable Payers Payer Name Policy Type Policy Number Effective Date Expira tion Date [employer] MEDICARE ADVANTAGE - EPISODIC Problems Condition Name Condition Details Condition Category Status Onset Date Resolution Date Last Treatment Date Treating Clinician Comments SPINAL STENOSIS, LUMBAR REGION WITH NEUROGENIC CLAUDICATION Active 02-09 00:00: 00 ESSENTIAL (PRIMARY) HYPERTENSION Active 02-09 00:00: 00 ANEMIA, UNSPECIFIED Active 02-09 00:00: 00 OTHER FORMS OF SCOLIOSIS, THORACOLUMBA R REGION Active 02-09 00:00: 00 SPONDYLOLIST HESIS, LUMBAR REGION Active 02-09 00:00: 00 UNSP THORACIC, THORACOLUM AND LUMBOSACR INTVRT DISC DISORDER Active 02-09 00:00: 00 PERIPHERAL VASCULAR DISEASE, UNSPECIFIED Active 02-09 00:00: 00 ANXIETY DISORDER, UNSPECIFIED Active 02-09 00:00: 00 DYSPHAGIA, UNSPECIFIED Active 02-09 00:00: 00 ENCOUNTER FOR FITTING AND ADJUSTMENT OF URINARY DEVICE Active 02-09 00:00: 00 ORGANIZATIONAL DEVELOPMENT CONSULTANT (CURRENT) USE OF ASPIRIN Active 02-09 00:00: 00 HISTORY OF FALLING Active 02-09 00:00: 00 DYSPHAGIA, OROPHARYNGEA L PHASE Active 8-08 00:00: 00 Allergies, Adverse Reactions, Alerts Allergy Name Allergy Type Status Severity Reaction(s) Onset Date Inactive Date Treating Clinician Comments KEFLEX Propensity to adverse reactions Active 2024-08 12:09:2 7 NICKEL Propensity to adverse reactions Active 2024-08 12:09:3 8 Medications Ordered Medication Name Filled Medication Name Start Date Stop Date Current Medication? Ordering Clinician Indication Dosage Frequency Signature (SIG) Comments Components amlodipine 10 mg tablet 09-08 00:00: 00 Yes [id number] HIGH BLOOD PRESSURE 1 tablet ONCE DAILY 1 tablet ONCE DAILY (route: oral) Med Classific ation: Cardiovas cular Therapy Agents aspirin 81 mg tablet,zoe yed release 09-08 00:00: 00 Yes [id number] CIRCULATION 1 tablet ONCE DAILY 1 tablet ONCE DAILY (route: oral) Med Classific ation: Hematolog ical Agents atorvastati n 20 mg tablet 09-08 00:00: 00 Yes [id number] HIGH CHOLESTEROL 1 tablet ONCE DAILY 1 tablet ONCE DAILY (route: oral) Med Classific ation: Cardiovas cular Therapy Agents benzonatate 100 mg capsule 09-08 00:00: 00 Yes [id number] COUGH 1 capsule EVERY 6 HOURS 1 capsule EVERY 6 HOURS (route: oral) Med Classific ation: Respirato ry Therapy Agents finasteride 5 mg tablet 09-08 00:00: 00 Yes [id number] URINE RETENTION 1 tablet ONCE DAILY 1 tablet ONCE DAILY (route: oral) Med Classific ation: Genitouri nary Therapy gabapentin 600 mg tablet 09-08 00:00: 00 Yes [id number] NEUROPATHY 1 tablet ONCE DAILY 1 tablet ONCE DAILY (route: oral) Med Classific ation: Central Nervous System Agents hydroxyzine HCl 25 mg tablet 09-08 00:00: 00 Yes [id number] ITCHING/ANX IETY 1 tablet EVERY 8 HOURS 1 tablet EVERY 8 HOURS (route: oral) Med Classific ation: Central Nervous System Agents Lasix 20 mg tablet 09-08 00:00: 00 Yes [id number] FLUID RETENTION 1 tablet ONCE DAILY 1 tablet ONCE DAILY (route: oral) Med Classific ation: Cardiovas cular Therapy Agents lisinopril 20 mg tablet 09-08 00:00: 00 09-15 23:59 :00 No [id number] HIGH BLOOD PRESSURE 1 tablet ONCE DAILY 1 tablet ONCE DAILY (route: oral) Med Classific ation: Cardiovas cular Therapy Agents Percocet 5 mg-325 mg tablet 09-08 00:00: 00 Yes [id number] LOW BACK PAIN 1 tablet AT BEDTIME 1 tablet AT BEDTIME (route: oral) Med Classific ation: Analgesic , Anti-infl ammatory or Antipyret ic Tylenol Extra Strength 500 mg tablet 09-08 00:00: 00 Yes [id number] LOW BACK PAIN 2 tablet TWICE DAILY 2 tablet TWICE DAILY (route: oral) Med Classific ation: Analgesic , Anti-infl ammatory or Antipyret ic lisinopril 40 mg tablet 09-15 00:00: 00 Yes [id number] HYPERTENSIO N 1 tablet ONCE DAILY 1 tablet ONCE DAILY (route: oral) Med Classific ation: Cardiovas cular Therapy Agents Immunizations Ordered Immunization Name Filled Immunization Name Date Status Comments Refusal Reason COVID-19 MONOVALENT, MRNA 2023-11-10 00:00:00 INFLUENZA, TIV (INACTIVATED) 2023-11-10 00:00:00 PNEUMOCOCCAL (PPV), PPV 2021-12-27 00:00:00 Vital Signs Vital Name Observation Time Observation Value Commen ts Temperature 2024-09-27 15:31:00.000 97.8 [degF] Temperature 2024-09-27 09:40:46.000 97.2 [degF] Temperature 2024-09-23 12:10:00.000 97.7 [degF] Temperature 2024-09-23 11:12:00.000 97.7 [degF] Temperature 2024-09-23 08:58:06.000 97.5 [degF] Temperature 2024-09-20 15:28:00.000 97.9 [degF] Temperature 2024-09-16 10:33:00.000 97.8 [degF] Temperature 2024-09-13 15:18:00.000 97.4 [degF] Temperature 2024-09-13 14:18:18.000 97.4 [degF] Temperature 2024-09-12 10:59:00.000 98.5 [degF] Temperature 2024-09-10 13:46:00.000 97.9 [degF] BMI (%) 2024-09-10 13:46:00.000 36 kg/m2 Height 2024-09-10 13:46:00.000 70 [in_us] Pulse 2024-09-27 15:31:00.000 76 /min Pulse 2024-09-27 09:42:37.000 62 /min Pulse 2024-09-23 12:10:00.000 73 /min Pulse 2024-09-23 11:12:00.000 73 /min Pulse 2024-09-23 08:58:46.000 63 /min Pulse 2024-09-20 15:28:00.000 72 /min Pulse 2024-09-16 10:33:00.000 72 /min Pulse 2024-09-13 15:18:00.000 78 /min Pulse 2024-09-13 14:19:28.000 78 /min Pulse 2024-09-12 10:59:00.000 76 /min Pulse 2024-09-10 13:46:00.000 81 /min O2 Saturation (%) 2024-09-27 15:31:00.000 98 % O2 Saturation (%) 2024-09-23 12:10:00.000 97 % O2 Saturation (%) 2024-09-23 11:12:00.000 97 % O2 Saturation (%) 2024-09-20 15:28:00.000 97 % O2 Saturation (%) 2024-09-16 10:33:00.000 97 % O2 Saturation (%) 2024-09-13 15:18:00.000 98 % O2 Saturation (%) 2024-09-12 10:59:00.000 98 % O2 Saturation (%) 2024-09-10 13:46:00.000 97 % Respirations 2024-09-27 15:31:00.000 17 /min Respirations 2024-09-23 12:10:00.000 16 /min Respirations 2024-09-23 11:12:00.000 18 /min Respirations 2024-09-20 15:28:00.000 17 /min Respirations 2024-09-16 10:33:00.000 16 /min Respirations 2024-09-13 15:18:00.000 18 /min Respirations 2024-09-12 10:59:00.000 18 /min Respirations 2024-09-10 13:46:00.000 18 /min Weight (lbs) 2024-09-10 13:46:00.000 255 [lb_av] Systolic Blood Pressure 2024-09-27 15:31:00.000 138 mm [Hg] Systolic Blood Pressure 2024-09-27 09:41:34.000 142 mm [Hg] Systolic Blood Pressure 2024-09-23 12:10:00.000 152 mm [Hg] Systolic Blood Pressure 2024-09-23 11:51:00.000 140 mm [Hg] Systolic Blood Pressure 2024-09-23 11:12:00.000 152 mm [Hg] Systolic Blood Pressure 2024-09-23 09:03:37.000 142 mm [Hg] Systolic Blood Pressure 2024-09-20 15:28:00.000 136 mm [Hg] Systolic Blood Pressure 2024-09-16 10:33:00.000 122 mm [Hg] Systolic Blood Pressure 2024-09-13 15:50:00.000 180 mm [Hg] Systolic Blood Pressure 2024-09-13 14:18:35.000 174 mm [Hg] Systolic Blood Pressure 2024-09-12 10:59:00.000 144 mm [Hg] Systolic Blood Pressure 2024-09-10 13:46:00.000 140 mm [Hg] Diastolic Blood Pressure 2024-09-27 15:31:00.000 78 mm [Hg] Diastolic Blood Pressure 2024-09-27 09:41:34.000 68 mm [Hg] Diastolic Blood Pressure 2024-09-23 12:10:00.000 70 mm [Hg] Diastolic Blood Pressure 2024-09-23 11:51:00.000 68 mm [Hg] Diastolic Blood Pressure 2024-09-23 11:12:00.000 70 mm [Hg] Diastolic Blood Pressure 2024-09-23 09:03:37.000 64 mm [Hg] Diastolic Blood Pressure 2024-09-20 15:28:00.000 78 mm [Hg] Diastolic Blood Pressure 2024-09-16 10:33:00.000 62 mm [Hg] Diastolic Blood Pressure 2024-09-13 15:50:00.000 60 mm [Hg] Diastolic Blood Pressure 2024-09-13 14:18:35.000 70 mm [Hg] Diastolic Blood Pressure 2024-09-12 10:59:00.000 70 mm [Hg] Diastolic Blood Pressure 2024-09-10 13:46:00.000 58 mm [Hg] Plan of Treatment Planned Activity Planned Date Details Comments Future Scheduled Test SKILLED NU RSE TO INSTRUCT PATIENT/CAREGIVER ON WHAT IS HYPERTENSION, HOW TO CHECK HIS/HER BLOOD PRESSURE, AND STRATEGIES TO USE TO CONTROL BLOOD PRESSURE SUCH MONITORING BP, MONITORING WEIGHTS, ENGAGING IN PHYSICAL ACTIVITY AIMING FOR 150 MINUTES SPREAD THROUGHOUT THE WEEK. [code = SKILLED NURSE TO INSTRUCT PATIENT/CAREGIVER ON WHAT IS HYPERTENSION, HOW TO CHECK HIS/HER BLOOD PRESSURE, AND STRATEGIES TO USE TO CONTROL BLOOD PRESSURE SUCH MONITORING BP, MONITORING WEIGHTS, ENGAGING IN PHYSICAL ACTIVITY AIMING FOR 150 MINUTES SPREAD THROUGHOUT THE WEEK.] Future Scheduled Test HOME HEALT H NURSE WILL ASSESS FOR COMPLICATIONS RELATED TO ANEMIA AND INSTRUCT PATIENT/CAREGIVER ABOUT CAUSES, PRESCRIBED TREATMENT, AND SIGNS/SYMPTOMS TO REPORT. [code = HOME HEALTH NURSE WILL ASSESS FOR COMPLICATIONS RELATED TO ANEMIA AND INSTRUCT PATIENT/CAREGIVER ABOUT CAUSES, PRESCRIBED TREATMENT, AND SIGNS/SYMPTOMS TO REPORT.] Future Scheduled Test SKILLED NU RSE FOR MANAGEMENT OF INDWELLING MATHEWS URINARY CATHETER. MATHEWS CATHETER IS TO BE A 18 FR 10 ML BALLOON CATHETER TO BE CHANGED AT UROLOGY OFFICE MONTHLY. ORDERS ALSO INCLUDE THE NEED FOR MONTHLY MAINTANANCE ITEMS, INCLUDING LEG BAGS, DRAIN BAGS, LEG STRAPS, AND SECUREMENT DEVICES WELL 10 CC SYRINGES. SKILLED NURSE MAY ADD TWO PRN VISITS PER MONTH FOR CARE OR COMPLICATIONS SUCH IRRIGATION NEEDS, LEAKING, OR ACCIDENTAL DISLOGDEMENT. SKILLED NURSE MAY OBTAIN URINALYSIS PRN FOR SIGNS AND SYMPTOMS OF URINARY TRACT INFECTION WITH RESULTS FAXED TO PHYSICIAN. SKILLED NURSE MAY CHANGE OR REPLACE CATHETER NEEDED WHEN COMPLICATIONS OCCUR. ALL FOLLOWING CATHETER CHANGES WILL MAINTAIN ORDERED FREQUENCY. MAY FLUSH OR IRRIGATE PRN WITH 30 ? 60 ML STERILE WATER FOR OCCLUSION OR STOPPAGE. SN MAY OBTAIN UA WITH CULTURE AND SENSITIVITY FOR SIGNS OR SYMPTOMS OF A UTI. CATHETER MAY BE FLUSHED ON AN NEEDED BASIS FOR CLOGGED CATHETER. CLEANSE JUNCTION OF CATHETER TUBE AND DRAINAGE TUBE WITH ALCOHOL WIPE, DISCONNECT CATHETER FROM DRAINAGE TUBE AND CAP WITH STERILE CAP. USING A 60 ML SYRINGE, DRAW UP 30-40 ML NORMAL SALINE OR STERILE WATER AND GENTLY INSTILL INTO THE BLADDER. DISCONNECT SYRINGE AND ALLOW FLUID TO DRAIN INTO BASIN. MAY REPEAT IRRIGATION UNTIL DEBRIS IS CLEAR. WHEN FLUSHING IS COMPLETE, CLEANSE THE END OF THE CATHETER AND THE END OF THE TUBING WITH AN ALCOHOL WIPE AFTER REMOVING THE PROTECTIVE CAP. RECONNECT THE CATHETER AND TUBING. PATIENT/CAREGIVER MAY PERFORM IRRIGATION/FLUSHING PRN IN SKILLED NURSE ABSENCE AFTER APPROPRIATE RETURN DEMONSTRATION. [code = SKILLED NURSE FOR MANAGEMENT OF INDWELLING MATHEWS URINARY CATHETER. MATHEWS CATHETER IS TO BE A 18 FR 10 ML BALLOON CATHETER TO BE CHANGED AT UROLOGY OFFICE MONTHLY. ORDERS ALSO INCLUDE THE NEED FOR MONTHLY MAINTANANCE ITEMS, INCLUDING LEG BAGS, DRAIN BAGS, LEG STRAPS, AND SECUREMENT DEVICES WELL 10 CC SYRINGES. SKILLED NURSE MAY ADD TWO PRN VISITS PER MONTH FOR CARE OR COMPLICATIONS SUCH IRRIGATION NEEDS, LEAKING, OR ACCIDENTAL DISLOGDEMENT. SKILLED NURSE MAY OBTAIN URINALYSIS PRN FOR SIGNS AND SYMPTOMS OF URINARY TRACT INFECTION WITH RESULTS FAXED TO PHYSICIAN. SKILLED NURSE MAY CHANGE OR REPLACE CATHETER NEEDED WHEN COMPLICATIONS OCCUR. ALL FOLLOWING CATHETER CHANGES WILL MAINTAIN ORDERED FREQUENCY. MAY FLUSH OR IRRIGATE PRN WITH 30 ? 60 ML STERILE WATER FOR OCCLUSION OR STOPPAGE. SN MAY OBTAIN UA WITH CULTURE AND SENSITIVITY FOR SIGNS OR SYMPTOMS OF A UTI. CATHETER MAY BE FLUSHED ON AN NEEDED BASIS FOR CLOGGED CATHETER. CLEANSE JUNCTION OF CATHETER TUBE AND DRAINAGE TUBE WITH ALCOHOL WIPE, DISCONNECT CATHETER FROM DRAINAGE TUBE AND CAP WITH STERILE CAP. USING A 60 ML SYRINGE, DRAW UP 30-40 ML NORMAL SALINE OR STERILE WATER AND GENTLY INSTILL INTO THE BLADDER. DISCONNECT SYRINGE AND ALLOW FLUID TO DRAIN INTO BASIN. MAY REPEAT IRRIGATION UNTIL DEBRIS IS CLEAR. WHEN FLUSHING IS COMPLETE, CLEANSE THE END OF THE CATHETER AND THE END OF THE TUBING WITH AN ALCOHOL WIPE AFTER REMOVING THE PROTECTIVE CAP. RECONNECT THE CATHETER AND TUBING. PATIENT/CAREGIVER MAY PERFORM IRRIGATION/FLUSHING PRN IN SKILLED NURSE ABSENCE AFTER APPROPRIATE RETURN DEMONSTRATION.] Future Scheduled Test PHYSICAL T HERAPIST TO EVALUATE AND TREAT [code = PHYSICAL THERAPIST TO EVALUATE AND TREAT] Future Scheduled Test OCCUPATION AL THERAPIST TO EVALUATE AND TREAT [code = OCCUPATIONAL THERAPIST TO EVALUATE AND TREAT] Future Scheduled Test HOME HEALT H AIDE SERVICE FOR ASSISTANCE WITH PERSONAL CARE, HYGIENE AND ACTIVITIES OF DAILY LIVING. [code = HOME HEALTH AIDE SERVICE FOR ASSISTANCE WITH PERSONAL CARE, HYGIENE AND ACTIVITIES OF DAILY LIVING.] Future Scheduled Test SKILLED NU RSE TO ASSESS PATIENT WITH ANXIETY DISORDER AND TEACH SYMPTOMS OF ANXIETY. [code = SKILLED NURSE TO ASSESS PATIENT WITH ANXIETY DISORDER AND TEACH SYMPTOMS OF ANXIETY.] Future Scheduled Test SPEECH SHO GUAGE PATHOLOGIST TO EVALUATE AND TREAT. [code = SPEECH LANGUAGE PATHOLOGIST TO EVALUATE AND TREAT.] Future Scheduled Test EACH ORDER ED IN-HOME OR TELEHEALTH VISIT, THE SKILLED NURSE WILL CONDUCT A COMPREHENSIVE ASSESSMENT INCLUDING VITAL SIGNS, PAIN, SAFETY, MENTAL/COGNITIVE/PSYCHOSOCIAL STATUS, MED MANAGEMENT, NUTRITION, SKIN INTEGRITY, PRESSURE ULCER PREVENTION, AND PATIENT/CAREGIVER ABILITY TO SUPPORT ORDERED CARE. SKILLED NURSE WILL INSTRUCT ON DISEASE PROCESS, MED MGMT., FALL PREVENTION AND SAFETY, INFECTION CONTROL AND PREVENTION, WARNING SIGNS, ADDRESS RESULTS OUTSIDE OF ORDERED PARAMETERS LISTED ON CARE PLAN, AND COORDINATE DISCHARGE WITH THE TREATING PROVIDER. MAY ACCEPT ORDERS FROM THE FOLLOWING PROVIDER(S) WHO WILL BE CONSULTING ON THE CERTIFIED CARE PLAN: JENNIFER HANDLEY, TUNNEL DRIER OPERATOR; ANASTASIYA DENNEY NP; AND ANYONE COVERING IN THEIR ABSENCE. [code = EACH ORDERED IN-HOME OR TELEHEALTH VISIT, THE SKILLED NURSE WILL CONDUCT A COMPREHENSIVE ASSESSMENT INCLUDING VITAL SIGNS, PAIN, SAFETY, MENTAL/COGNITIVE/PSYCHOSOCIAL STATUS, MED MANAGEMENT, NUTRITION, SKIN INTEGRITY, PRESSURE ULCER PREVENTION, AND PATIENT/CAREGIVER ABILITY TO SUPPORT ORDERED CARE. SKILLED NURSE WILL INSTRUCT ON DISEASE PROCESS, MED MGMT., FALL PREVENTION AND SAFETY, INFECTION CONTROL AND PREVENTION, WARNING SIGNS, ADDRESS RESULTS OUTSIDE OF ORDERED PARAMETERS LISTED ON CARE PLAN, AND COORDINATE DISCHARGE WITH THE TREATING PROVIDER. MAY ACCEPT ORDERS FROM THE FOLLOWING PROVIDER(S) WHO WILL BE CONSULTING ON THE CERTIFIED CARE PLAN: JENNIFER HANDLEY, TUNNEL DRIER OPERATOR; ANASTASIYA DENNEY, RENAN; AND ANYONE COVERING IN THEIR ABSENCE. ] Future Scheduled Test [facility] TIFYING PHYSICIAN, ASSOCIATED PHYSICIAN, NPP OR PA WITHIN THE SAME GROUP MAY APPROVE AND SIGN THE ORDER (ON ANY PAGE) ATTESTING THAT THE COMPREHENSIVE OUTCOME ASSESSMENTS, EVALUATIONS, AND HOME HEALTH CERTIFICATION PLANS SUPPORT HOMEBOUND STATUS. HOME HEALTH WEB-PORTAL DOCUMENTATION ACCESSED BY THE PHYSICIAN MUST BE INCORPORATED INTO THE MEDICAL RECORD TO CORROBORATE THE PHYSICIAN, NPP, OR PAS F2F ENCOUNTER TO SUPPORT ELIGIBILITY FOR HOME HEALTH SERVICES. [code = THE CERTIFYING PHYSICIAN, ASSOCIATED PHYSICIAN, NPP OR PA WITHIN THE SAME GROUP MAY APPROVE AND SIGN THE ORDER (ON ANY PAGE) ATTESTING THAT THE COMPREHENSIVE OUTCOME ASSESSMENTS, EVALUATIONS, AND HOME HEALTH CERTIFICATION PLANS SUPPORT HOMEBOUND STATUS. HOME HEALTH WEB-PORTAL DOCUMENTATION ACCESSED BY THE PHYSICIAN MUST BE INCORPORATED INTO THE MEDICAL RECORD TO CORROBORATE THE PHYSICIAN, NPP, OR PAS F2F ENCOUNTER TO SUPPORT ELIGIBILITY FOR HOME HEALTH SERVICES.] Goal Patient Goal - S OC 09/10/24: TO WALK AGAIN. TO GET RID OF CATHETER. Goal Provider Goal - PATIENT/CAREGIVER WILL INDEPENDENTLY DEMONSTRATE HOW TO CHECK HIS/HER OWN BP AND VERBALIZE WHAT STRATEGIES CAN ASSIST TO CONTROL BLOOD PRESSURE. Goal Provider Goal - PATIENT/CAREGIVER WILL VERBALIZE UNDERSTANDING OF THE CAUSES OF ANEMIA, SIGNS/SYMPTOMS TO REPORT, AND ADHERENCE TO PRESCRIBED TREATMENT BY END OF HOME HEALTH SERVICES. Goal Provider Goal - PATIENT WILL VERBALIZE TOLERANCE OF CATHETER CHANGE ON ONGOING BASIS OR UNTIL DISCHARGE. PATIENT/CAREGIVER DEMONSTRATES APPROPRIATE CATHETER MAINTENANCE AND FLUSHING. Goal Provider Goal - Goal Provider Goal - Goal Provider Goal - PATIENT WILL RECEIVE ASSISTANCE WITH PERSONAL CARE AND HYGIENE AND OTHER ACTIVITIES OF DAILY LIVING NEEDED. Goal Provider Goal - PATIENT/CAREGIVER WILL VERBALIZE UNDERSTANDING OF THE CONTRIBUTING FACTORS AND SYMPTOMS OF ANXIETY. Goal Provider Goal - Goal Provider Goal - PATIENT WILL BE FREE OF FALLS AND HOSPITALIZATIONS THROUGHOUT EPISODE OF CARE. PATIENT/CAREGIVER WILL UNDERSTAND AND ADHERE TO ORDERED DIET. PATIENT/CAREGIVER WILL INDEPENDENTLY MANAGE MEDICATIONS, UNDERSTAND ANY CHANGES, SIDE EFFECTS TO REPORT BY EOE. PATIENT WILL BE FREE OF INFECTION AND UNDERSTAND MEASURES OF PREVENTION. PATIENT/CAREGIVER WILL COLLABORATE WITH SKILLED NURSE TO DEVELOP POC AT SOC AND ON AN ONGOING BASIS UPDATES ARE NEEDED. UNDERSTAND PROGRESS MADE/DISCHARGE PLANNING. ADDITIONAL ORDERS WILL BE RECEIVED FROM ALTERNATE PHYSICIANS IN A TIMELY MANNER. Goal Provider Goal - A PLAN OF CARE WILL BE ESTABLISHED THAT MEETS ALL PATIENT'S USP NEEDS AND COUNTER SIGNED BY PHYSICIAN. Encounters Start Date/Time End Date/Time Encounter Type Admission Type Attending Clinicians Care Facility Care Department Encounter ID Discharge Date Discharge Status Discharge Condition Discharge Reason Percent Goals Met 2024-09-10 00:00:00 2024-11-08 00:00:00 Outpatient NEW ADMISSION LAISHA ELDRIDGE [facility] [id number] 45.24
--- OUTSIDE RECORDS SUMMARY | 2024-11-07 19:00 | XMS_ITS | Clinical Summary ---
Author Organization Unknown Care Team Providers Care Breaker Boss Name Role Phone ALVAROJEANNA VAUGHN Unavailable Unavailable VEENA PHYSICAL THERAPIST, CHANG Unavailable Unavailable GILDA SPEECH THERAPIST, MS, CCC/RUM PROCESSING OPERATOR, GALILEA Un available Unavailable WALESKA CORE JAVA SOFTWARE ENGINEER, JUANITO Unavail able Unavailable CHENTE REGISTERED NURSE CHIEF PROJECTIONIST, LAISHA Thais vailable Unavailable VILLA OCCUPATIONAL THERAPIST, [...] OF URINARY DEVICE Active 02-09 00:00: 00 [employer] AIRCRAFT TECHNICIAN (CURRENT) USE OF ASPIRIN Active 02-09 00:00: [...] 10 mg tablet 09-08 00:00: 00 Yes [id number] HIGH BLOOD PRESSURE 1 tablet ONCE DAILY 1 tablet ONCE DAILY (route: oral) Med Classific ation: Cardiovas cular Therapy Agents aspirin 81 mg tablet,zoe yed release 09-08 00:00: 00 Yes [id number] CIRCULATION 1 tablet ONCE DAILY 1 tablet ONCE DAILY (route: oral) Med Classific ation: Hematolog ical Agents atorvastati n 20 mg tablet 09-08 00:00: 00 Yes [id number] HIGH CHOLESTEROL 1 tablet ONCE DAILY 1 tablet ONCE DAILY (route: oral) Med Classific ation: Cardiovas cular Therapy Agents benzonatate 100 mg capsule 09-08 00:00: 00 Yes [id number] COUGH 1 capsule EVERY 6 HOURS 1 capsule EVERY 6 HOURS (route: oral) Med Classific ation: Respirato ry Therapy Agents finasteride 5 mg tablet 09-08 00:00: 00 Yes [id number] URINE RETENTION 1 tablet ONCE DAILY 1 tablet ONCE DAILY (route: oral) Med Classific ation: Genitouri nary Therapy gabapentin 600 mg tablet 09-08 00:00: 00 Yes [id number] NEUROPATHY 1 tablet ONCE DAILY 1 tablet ONCE DAILY (route: oral) Med Classific ation: Central Nervous System Agents hydroxyzine HCl 25 mg tablet 09-08 00:00: 00 Yes [id number] ITCHING/ANX IETY 1 tablet EVERY 8 HOURS 1 tablet EVERY 8 HOURS (route: oral) Med Classific ation: Central Nervous System Agents Lasix 20 mg tablet 09-08 00:00: 00 Yes [id number] FLUID RETENTION 1 tablet ONCE DAILY 1 tablet ONCE DAILY (route: oral) Med Classific ation: Cardiovas cular Therapy Agents lisinopril 20 mg tablet 09-08 00:00: 00 09-15 23:59 :00 No [id number] HIGH BLOOD PRESSURE 1 tablet ONCE DAILY 1 tablet ONCE DAILY (route: oral) Med Classific ation: Cardiovas cular Therapy Agents Percocet 5 mg-325 mg tablet 09-08 00:00: 00 Yes [id number] LOW BACK PAIN 1 tablet AT BEDTIME 1 tablet AT BEDTIME (route: oral) Med Classific ation: Analgesic , Anti-infl ammatory or Antipyret ic Tylenol Extra Strength 500 mg tablet 09-08 00:00: 00 Yes [id number] LOW BACK PAIN 2 tablet TWICE DAILY 2 tablet TWICE DAILY (route: oral) Med Classific ation: Analgesic , Anti-infl ammatory or Antipyret ic lisinopril 40 mg tablet 09-15 00:00: 00 Yes [id number] HYPERTENSIO N 1 tablet ONCE DAILY 1 [...] FOR MANAGEMENT OF INDWELLING MATHEWS URINARY CATHETER. MTAHEWS CATHETER IS TO BE A 18 FR [...] ON THE CERTIFIED CARE PLAN: JENNIFER HANDLEY, FEEDER OPERATOR; ANASTASIYA DENNEY NP; AND ANYONE COVERING [...] ON THE CERTIFIED CARE PLAN: JENNIFER HANDLEY, FEEDER OPERATOR; ANASTASIYA DENNEY, RENAN; AND ANYONE COVERING IN THEIR ABSENCE. ] Future Scheduled Test [facility] TIFYING PHYSICIAN, ASSOCIATED PHYSICIAN, NPP OR [...] WILL BE ESTABLISHED THAT MEETS ALL PATIENT'S CUSTODIAL NEEDS AND COUNTER SIGNED BY PHYSICIAN. Encounters Start Date/Time End Date/Time Encounter Type Admission Type Attending Clinicians Care Facility Care Department Encounter ID Discharge Date Discharge Status Discharge Condition Discharge Reason Percent Goals Met 2024-09-10 00:00:00 2024-11-08 00:00:00 Outpatient NEW ADMISSION LAISHA ELDRIDGE [facility] [id number] 45.24
== END 2024-09-29 15:46 | disposition home or self-care (01) ==
PROVIDERS: PCP Family Medicine Adolescent Medicine; Visit Provider Family Medicine
DX: N18.32 Chronic kidney disease, stage 3b (principal); N17.9 Acute kidney failure, unspecified
CPT/HCPCS: 36415; 80053; 85025

== ENCOUNTER 2024-12-16 11:19 | Outpatient (CLI) | payer MEDICARE, SELFPAY ==
--- OUTSIDE RECORDS SUMMARY | 2024-12-16 11:59 | XMS_ITS | Clinical Summary ---
Author Organization [facility] Address [address] [place] [address] Care Team Providers Care Seed Trucker Name Role Phone Ibrahima Bird MD Primary Care Provider + Source Comments [facility],non-owned Affiliates and Associated Physician Practices is amultiple site organization consisting of ambulatory clinics and hospital sitesin [place], [place], [place]. This disclosure is being madepursuant to the Care Everywhere program and may not contain all information available regarding this patient. Last updated 17.[facility] Allergies Active Allergy Reactions Criticality Noted Date [...] changes -Currently psoas drain draining well, f/u [facility] IR for drain maintenance. -Small [...] changes -Currently psoas drain draining well, /u [facility] for drain maintenance. -Small [...] as above) -Currently psoas drain draining well, /[facility] for drain maintenance. [...] above) -Currently psoas drain draining well, /u [facility] IR for drain maintenance. Assessment [...] above) -Currently psoas drain draining well, f/u [facility] for drain maintenance. Assessment & [...] above) -Currently psoas drain draining well, f/u [facility] for drain maintenance. Assessment & [...] above) -Currently psoas drain draining well, f/u [facility] IR for drain maintenance. 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, no further intervention per OSH surgery -PPI -o/p f/u with [facility] surgery Assessment & Plan (06/11/2024 10:18 AM CDT): -s/p Ex-lap w/ repair at [facility] -G tube in place -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, no further intervention per OSH surgery -PPI -o/p f/u with [facility] surgery Assessment & Plan (06/10/2024 10:08 AM CDT): -s/p Ex-lap w/ repair at [facility] -G tube in place -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, no further intervention per OSH surgery -PPI -o/p f/u with [facility] surgery Assessment & Plan (06/09/2024 1:40 PM CDT): -s/p Ex-lap w/ repair at [facility] -G tube in place -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, no further intervention per OSH surgery -PPI -o/p f/u with [facility] surgery Assessment & Plan (06/08/2024 1:56 PM CDT): -s/p Ex-lap w/ repair at [facility] -G tube in place -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, no further intervention per OSH surgery -PPI -o/p f/u with [facility] surgery Assessment & Plan (06/07/2024 4:46 PM CDT): -s/p Ex-lap w/ repair at [facility] -G tube in place -CT 05/22 w/ sequelae of perforation, no further intervention per OSH surgery -PPI -o/p f/u with [facility] Assessment & Plan (06/06/2024 9:53 AM CDT): -s/p Ex-lap w/ repair at [facility] -G tube in place -CT 05/22 w/ sequelae of perforation, no further intervention per OSH surgery PLAN -PPI -o/p f/u with [facility] -If concern for recurrent perf, will consult [facility] Assessment & Plan (06/05/2024 11:03 AM CDT): -s/p Ex-lap w/ repair at [facility] -G tube in place -CT 05/22 w/ sequelae of perforation, no further intervention per OSH surgery PLAN -PPI -o/p f/u with [facility] -If concern for recurrent perf, will consult [facility] Assessment & Plan (06/04/2024 8:01 PM CDT): - s/p Ex-Lap with Repair at [facility] - G-tube in place, receiving Tube-Feedings [...] to retain, odom inserted-- voiding trial with [facility] urology appt confirmed. Assessment & Plan (06/13/2024 10:04 AM CDT): -b/l Cr 1.5, Stable -voiding trial since 06/06, had to straight cath pt, he was retaining over 500, unable to void since odom removal around 0500. 700cc recorded. -continues to retain, odom inserted-- voiding trial with [facility] urology appt confirmed. Assessment & Plan (06/12/2024 7:55 AM CDT): -b/l Cr 1.5, Stable -voiding trial since 06/06, had to straight cath pt, he was retaining over 500, unable to void since odom removal around 0500. 700cc recorded. -continues to retain, odom inserted-- voiding trial with [facility] urology appt confirmed. Assessment & Plan (06/11/2024 10:18 AM CDT): -b/l Cr 1.5, Stable -voiding trial since 06/06, had to straight cath pt, he was retaining over 500, unable to void since odom removal around 0500. 700cc recorded. -continues to retain, odom inserted-- voiding trial with [facility] urology appt confirmed. Assessment & Plan [...] changes -Currently psoas drain draining well, f/u [facility] IR for drain maintenance. -Small [...] above) -Currently psoas drain draining well, f/u [facility] IR for drain maintenance. Assessment [...] above) -Currently psoas drain draining well, f/u [facility] IR for drain maintenance. Assessment [...] above) -Currently psoas drain draining well, f/u [facility] IR for drain maintenance. Assessment [...] above) -Currently psoas drain draining well, f/u [facility] for drain maintenance. Assessment & [...] above) -Currently psoas drain draining well, f/u [facility] IR for drain maintenance. Assessment [...] above) -Currently psoas drain draining well, f/u [facility] IR for drain maintenance. Assessment [...] above) -Currently psoas drain draining well, f/u [facility] IR for drain maintenance. Assessment [...] MBS at Osh -Cont TF through Gtube -SPECIAL TESTER eval Assessment & Plan (06/05/2024 11:03 AM CDT): -Had MBS at Osh -Cont TF through Gtube -SPECIAL TESTER eval Assessment & Plan (06/04/2024 8:01 PM CDT): - Seen on OSH MBS on 05/30 - Possibly 2/2 recent intubation, Pre-vertebral/Retropharyngeal Abscess? - Pt has G-tube in place since ex-lap for gastric perforation 04/22 > Cont NPO > TF (cont Nepro from prior hospital) > Nutrition consult > SPECIAL TESTER eval - ADAT (was cleared to start [...] MBS at Osh -Cont TF through Gtube -SPECIAL TESTER eval Assessment & Plan (06/05/2024 11:03 AM CDT): -Had MBS at Osh -Cont TF through Gtube -SPECIAL TESTER eval Social History Tobacco Use Types Packs/Day Years [...] Recorded Patient Health Questionnaire-2 Score 0 07/21/2024 [facility] - Occupational Stress [...] any time in the past 12 m [facility], were you homeless or living in a custodial (including now)? 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 06/07/2024 Insurance AETNA MEDICARE ADV [facility] Care Address: [facility] [id number] [place] [phone] SELF PAY NO INSURANCE Member Subscriber Plan / Payer (Ef fective for All Dates) Name:Ludin Lacey Member ID:Not on file Relation to Subscriber:Not on file Name:LUDIN LACEY Subscriber ID:Not on file (Home) Address: [address] [place] [id number] Payer ID:Not on file Group ID:Not on file Type:Self Pay Address: [place], [place] Advance Directives * Full Code (Latest Code Status on File) Date Activated Date Inactivated Comments 06/04/2024 6:21 PM 06/14/2024 2:19 PM Care Teams Seed Trucker Relationship Specialty Start Date End Date Ibrahima Bird MD [address] [address] PCP - General Family Medicine 06/24/24
--- OUTSIDE RECORDS SUMMARY | 2024-12-16 12:00 | XMS_ITS | Clinical Summary ---
Author Organization [facility] Address [address] [place] [address] Care Team Providers Care Senior Qa Automation Engineer Name Role Phone Jayden Dykes Primary Care Provider [phone] Social History Tobacco Use Types Packs/Day Years [...] - 1-dose 75+ series) 08/04/2022 COVID-19 Vaccine (1 - 2024-2 6 season) 2024 Influenza Adult (#1) 2024 Hepatitis A Vaccines Aged Out No long er eligible based on patient's age to complete this topic Meningococcal B Vaccine Aged Out No l onger eligible based on patient's age to complete this topic Meningococcal Vaccine Aged Out No [place] eligible based on patient's age to complete this topic RSV Immunizations Under 20 Months Aged Out No longer eligible based on patient's age to complete this topic Insurance AETNA MEDICARE [facility] Care Teams Senior Qa Automation Engineer Relationship Specialty Start Date End Date Jayden Dykes DO PCP - General INTERNAL MEDICINE 06/15/24
[2024-12-16 12:06] LABS: Hematocrit 35.0 % (42.0-52.0); Hemoglobin 11.1 g/dL (14.0-18.0); Mean Corpuscular HGB Conc 31.7 g/dl (32-36); Mean Corpuscular Hemoglobin 30.4 pg (26-34); Mean Corpuscular Volume 95.9 fl (80-100); Platelet Count Result 179 k/mm3 (150-375); Red Blood Count 3.65 M/mm3 (4.6-6.20); White Blood Count 6.8 K/mm3 (4.5-10.0)
[2024-12-16 12:29] LABS: Alanine Aminotransferase 18 U/L (6-50); Albumin Level 4.1 g/dL (3.5-5.1); Alkaline Phosphatase 106 U/L (38-126); Anion Gap 9 mmol/L (4-12); Aspartate Amino Transferase 24 U/L (17-59); Bilirubin,Total 0.5 mg/dL (0.2-1.3); Blood Urea Nitrogen 38 mg/dL (9-20); Calcium 9.0 mg/dL (8.4-10.2); Carbon Dioxide 28 mmol/L (22-30); Chloride 99 mmol/L (98-107); Estimated Glomerular Filt Rate 43; Glucose 99 mg/dL (65-110); Potassium 4.5 mmol/L (3.4-5.0); Sodium 136 mmol/L (137-145); Total Protein 7.3 g/dL (6.3-8.2)
--- OUTSIDE RECORDS SUMMARY | 2025-01-06 18:00 | XMS_ITS | Clinical Summary ---
Author Organization Unknown Care Team Providers Care Landscape Architecture Professor Name Role Phone ALVAROJEANNA VAUGHN Unavailable Unavailable VEENA PHYSICAL THERAPIST, CHANG Unavailable Unavailable GILDA SPEECH THERAPIST, MS, CCC/REAL ESTATE TEACHER, GALILEA Un available Unavailable WALESKA RN DIABETES, JUANITO Unavail able Unavailable VILLA OCCUPATIONAL THERAPIST, PAULETTE Unavailable Unavailable VALERIO HOME HEALTH AIDE, ARGENIS Unavailable U senait GRAF REGISTERED NURSE, DONNIE Unavailable Unavailable Payers Payer Name Policy Type Policy Number [...] DISORDER, UNSPECIFIED Active 02-09 00:00: 00 DYSPHAGIA, OROPHARYNGEA L PHASE Active 02-09 00:00: 00 ENCOUNTER FOR FITTING AND ADJUSTMENT OF URINARY DEVICE Active 02-09 00:00: 00 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 (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) USE OF ASPIRIN Active 02-09 00:00: 00 HISTORY OF FALLING Active 02-09 00:00: 00 Allergies, Adverse Reactions, Alerts Allergy [...] amlodipine 10 mg tablet 09-08 00:00: 00 09-26 23:59 :00 No [id number] HIGH BLOOD PRESSURE 1 tablet ONCE DAILY 1 tablet ONCE DAILY (route: oral) Med Classific ation: Cardiovas cular Therapy Agents aspirin 81 mg tablet,zoe yed release 09-08 00:00: 00 Yes [id number] CIRCULATION 1 tablet ONCE DAILY 1 tablet ONCE DAILY (route: oral) Med Classific ation: Hematolog ical Agents atorvastati n 20 mg tablet 09-08 00:00: 00 Yes [id number] HIGH CHOLESTEROL 1 tablet ONCE DAILY 1 tablet ONCE DAILY (route: oral) Med Classific ation: Cardiovas cular Therapy Agents benzonatate 100 mg capsule 09-08 00:00: 00 Yes [id number] COUGH 1 capsule EVERY 6 HOURS 1 capsule EVERY 6 HOURS (route: oral) Med Classific ation: Respirato ry Therapy Agents finasteride 5 mg tablet 09-08 00:00: 00 Yes [id number] URINE RETENTION 1 tablet ONCE DAILY 1 tablet ONCE DAILY (route: oral) Med Classific ation: Genitouri nary Therapy gabapentin 600 mg tablet 09-08 00:00: 00 Yes [id number] NEUROPATHY 1 tablet ONCE DAILY 1 tablet ONCE DAILY (route: oral) Med Classific ation: Central Nervous System Agents hydroxyzine HCl 25 mg tablet 09-08 00:00: 00 Yes [id number] ITCHING/ANX IETY 1 tablet EVERY 8 HOURS 1 tablet EVERY 8 HOURS (route: oral) Med Classific ation: Central Nervous System Agents Lasix 20 mg tablet 09-08 00:00: 00 09-26 23:59 :00 No [id number] FLUID RETENTION 1 tablet ONCE DAILY 1 tablet ONCE DAILY (route: oral) Med Classific ation: Cardiovas cular Therapy Agents lisinopril 20 mg tablet 09-08 00:00: 00 09-15 23:59 :00 No [id number] HIGH BLOOD PRESSURE 1 tablet ONCE DAILY 1 tablet ONCE DAILY (route: oral) Med Classific ation: Cardiovas cular Therapy Agents Percocet 5 mg-325 mg tablet 09-08 00:00: 00 Yes [id number] LOW BACK PAIN 1 tablet AT BEDTIME 1 tablet AT BEDTIME (route: oral) Med Classific ation: Analgesic , Anti-infl ammatory or Antipyret ic Tylenol Extra Strength 500 mg tablet 09-08 00:00: 00 Yes [id number] LOW BACK PAIN 2 tablet TWICE DAILY 2 tablet TWICE DAILY (route: oral) Med Classific ation: Analgesic , Anti-infl ammatory or Antipyret ic lisinopril 40 mg tablet 09-15 00:00: 00 09-26 23:59 :00 No [id number] HYPERTENSIO N 1 tablet ONCE DAILY 1 tablet ONCE DAILY (route: oral) Med Classific ation: Cardiovas cular Therapy Agents furosemide 40 mg tablet 09-26 00:00: 00 Yes [id number] FLUID RETENTION 1 tablet ONCE DAILY 1 tablet ONCE DAILY (route: oral) Med Classific ation: Cardiovas cular Therapy Agents losartan 50 mg tablet 09-26 00:00: 00 10-25 23:59 :00 No [id number] HIGH BP 1 tablet ONCE DAILY 1 tablet ONCE DAILY (route: oral) Med Classific ation: Cardiovas cular Therapy Agents Lasix 40 mg tablet 09-26 00:00: 00 Yes [id number] FLUID RETENTION 1 tablet ONCE DAILY 1 tablet ONCE DAILY (route: oral) Med Classific ation: Cardiovas cular Therapy Agents losartan 50 mg tablet 09-26 00:00: 00 10-25 23:59 :00 No [id number] FLUID RETENTION 1 tablet ONCE DAILY 1 tablet ONCE DAILY (route: oral) Med Classific ation: Cardiovas cular Therapy Agents bethanechol chloride 25 mg tablet 2024-02 0 00:00: 00 Yes [id number] BLADDER EMPTYING 1 tablet TWICE DAILY 1 tablet TWICE DAILY (route: oral) Med Classific ation: Genitouri nary Therapy finasteride 5 mg tablet 2024-02 0 00:00: 00 Yes [id number] urinary symptoms 1 tablet ONCE DAILY 1 tablet ONCE DAILY (route: oral) Med Classific ation: Genitouri nary Therapy pantoprazol e 40 mg tablet,zoe yed release 2024-02 00:00: 00 01-12 23:59 :00 No [id number] ACID REFLUX 1 tablet EVERY PM 1 tablet EVERY PM (route: oral) Med Classific ation: Gastroint estinal Therapy Agents Immunizations Ordered Immunization Name Filled Immunization Name Date Status Comments Refusal Reason COVID-19 MONOVALENT, MRNA 2023-11-10 00:00:00 INFLUENZA, TIV (INACTIVATED) 2023-11-10 00:00:00 PNEUMOCOCCAL (PPV), PPV 2021-12-27 00:00:00 Vital Signs Vital Name Observation Time Observation Value Commen ts Temperature 2024-12-14 13:26:00.000 97.8 [degF] Temperature 2024-12-13 15:54:00.000 97.8 [degF] Temperature 2024-12-07 13:55:00.000 97.4 [degF] Temperature 2024-12-07 11:55:00.000 97.6 [degF] Temperature 2024-12-07 11:00:00.000 97.6 [degF] Temperature 2024-12-01 11:36:00.000 97.7 [degF] Temperature 2024-11-28 15:59:00.000 97.9 [degF] Temperature 2024-11-24 11:18:00.000 97.6 [degF] Temperature 2024-11-22 15:30:00.000 97.8 [degF] Temperature 2024-11-21 10:14:00.000 97.7 [degF] Temperature 2024-11-17 11:30:00.000 97.8 [degF] Temperature 2024-11-14 15:23:00.000 97.9 [degF] Pulse 2024-12-14 13:26:00.000 60 /min Pulse 2024-12-13 15:54:00.000 78 /min Pulse 2024-12-07 13:55:00.000 69 /min Pulse 2024-12-07 11:55:00.000 69 /min Pulse 2024-12-07 11:00:00.000 69 /min Pulse 2024-12-01 11:36:00.000 73 /min Pulse 2024-11-28 15:59:00.000 72 /min Pulse 2024-11-24 11:18:00.000 68 /min Pulse 2024-11-22 15:30:00.000 72 /min Pulse 2024-11-21 10:14:00.000 69 /min Pulse 2024-11-17 11:30:00.000 68 /min Pulse 2024-11-14 15:23:00.000 72 /min O2 Saturation (%) 2024-12-14 13:26:00.000 98 % O2 Saturation (%) 2024-12-13 15:54:00.000 96 % O2 Saturation (%) 2024-12-07 13:55:00.000 98 % O2 Saturation (%) 2024-12-07 11:55:00.000 98 % O2 Saturation (%) 2024-12-07 11:00:00.000 98 % O2 Saturation (%) 2024-12-01 11:36:00.000 96 % O2 Saturation (%) 2024-11-28 15:59:00.000 96 % O2 Saturation (%) 2024-11-24 11:18:00.000 96 % O2 Saturation (%) 2024-11-22 15:30:00.000 97 % O2 Saturation (%) 2024-11-21 10:14:00.000 95 % O2 Saturation (%) 2024-11-17 11:30:00.000 99 % O2 Saturation (%) 2024-11-14 15:23:00.000 98 % Respirations 2024-12-14 13:26:00.000 18 /min Respirations 2024-12-13 15:54:00.000 17 /min Respirations 2024-12-07 13:55:00.000 18 /min Respirations 2024-12-07 11:55:00.000 18 /min Respirations 2024-12-07 11:00:00.000 18 /min Respirations 2024-12-01 11:36:00.000 16 /min Respirations 2024-11-28 15:59:00.000 17 /min Respirations 2024-11-24 11:18:00.000 16 /min Respirations 2024-11-22 15:30:00.000 17 /min Respirations 2024-11-21 10:14:00.000 18 /min Respirations 2024-11-17 11:30:00.000 18 /min Respirations 2024-11-14 15:23:00.000 18 /min Systolic Blood Pressure 2024-12-14 13:26:00.000 132 mm [Hg] Systolic Blood Pressure 2024-12-13 15:54:00.000 136 mm [Hg] Systolic Blood Pressure 2024-12-07 13:55:00.000 138 mm [Hg] Systolic Blood Pressure 2024-12-07 11:55:00.000 142 mm [Hg] Systolic Blood Pressure 2024-12-07 11:00:00.000 142 mm [Hg] Systolic Blood Pressure 2024-12-01 11:36:00.000 122 mm [Hg] Systolic Blood Pressure 2024-11-28 15:59:00.000 136 mm [Hg] Systolic Blood Pressure 2024-11-24 11:18:00.000 126 mm [Hg] Systolic Blood Pressure 2024-11-22 15:30:00.000 138 mm [Hg] Systolic Blood Pressure 2024-11-21 10:14:00.000 130 mm [Hg] Systolic Blood Pressure 2024-11-17 11:30:00.000 130 mm [Hg] Systolic Blood Pressure 2024-11-14 15:23:00.000 140 mm [Hg] Diastolic Blood Pressure 2024-12-14 13:26:00.000 64 mm [Hg] Diastolic Blood Pressure 2024-12-13 15:54:00.000 74 mm [Hg] Diastolic Blood Pressure 2024-12-07 13:55:00.000 78 mm [Hg] Diastolic Blood Pressure 2024-12-07 11:55:00.000 74 mm [Hg] Diastolic Blood Pressure 2024-12-07 11:00:00.000 74 mm [Hg] Diastolic Blood Pressure 2024-12-01 11:36:00.000 58 mm [Hg] Diastolic Blood Pressure 2024-11-28 15:59:00.000 64 mm [Hg] Diastolic Blood Pressure 2024-11-24 11:18:00.000 70 mm [Hg] Diastolic Blood Pressure 2024-11-22 15:30:00.000 82 mm [Hg] Diastolic Blood Pressure 2024-11-21 10:14:00.000 58 mm [Hg] Diastolic Blood Pressure 2024-11-17 11:30:00.000 70 mm [Hg] Diastolic Blood Pressure 2024-11-14 15:23:00.000 72 mm [Hg] Plan of Treatment Planned Activity Planned Date Details Comments Future Scheduled Test SKILLED NU RSE TO INSTRUCT PATIENT/CAREGIVER ON WHAT IS HYPERTENSION, HOW TO CHECK HIS/HER BLOOD PRESSURE, AND STRATEGIES TO USE TO CONTROL BLOOD PRESSURE SUCH MONITORING BP, ENGAGING IN PHYSICAL ACTIVITY AIMING FOR 150 MINUTES SPREAD THROUGHOUT THE WEEK. [code = SKILLED NURSE TO INSTRUCT PATIENT/CAREGIVER ON WHAT IS HYPERTENSION, HOW TO CHECK HIS/HER BLOOD PRESSURE, AND STRATEGIES TO USE TO CONTROL BLOOD PRESSURE SUCH MONITORING BP, ENGAGING IN PHYSICAL ACTIVITY AIMING FOR 150 MINUTES SPREAD THROUGHOUT THE WEEK.] Future Scheduled Test SKILLED NU RSE FOR [...] FOLLOWING CATHETER CHANGES WILL MAINTAIN ORDERED FREQUENCY. [code = SKILLED NURSE FOR MANAGEMENT OF [...] ALL FOLLOWING CATHETER CHANGES WILL MAINTAIN ORDERED FREQUENCY.] Future Scheduled Test THE CER TIFYING PHYSICIAN, ASSOCIATED PHYSICIAN, NPP OR PA WITHIN THE SAME GROUP MAY APPROVE AND SIGN THE ORDER (ON ANY PAGE) ATTESTING THAT THE COMPREHENSIVE OUTCOME ASSESSMENTS, EVALUATIONS, AND HOME HEALTH CERTIFICATION PLANS SUPPORT HOMEBOUND STATUS. HOME HEALTH WEB-PORTAL DOCUMENTATION ACCESSED BY THE PHYSICIAN MUST BE INCORPORATED INTO THE MEDICAL RECORD TO CORROBORATE THE PHYSICIAN, NPP, OR PA S F2F ENCOUNTER TO SUPPORT ELIGIBILITY FOR HOME [...] RECORD TO CORROBORATE THE PHYSICIAN, NPP, OR PA S F2F ENCOUNTER TO SUPPORT ELIGIBILITY FOR HOME HEALTH SERVICES.] Future Scheduled Test EACH ORDER ED IN-HOME [...] BE CONSULTING ON THE CERTIFIED CARE PLAN: DR. JEANNA JOSE, JENNIFER KUMAR, RENAN; ANASTASIYA DENNEY NP, SANGITA SIMENTAL AND ANYONE COVERING IN THEIR ABSENCE. [code [...] BE CONSULTING ON THE CERTIFIED CARE PLAN: DR. JEANNA JOSE, JENNIFER KUMAR, LAMP SHADE ASSEMBLER; ANASTASIYA DENNEY, RENAN, MICHELLE MOCTEZUMA, SANGITA HAQUE AND ANYONE COVERING IN THEIR ABSENCE.] Goal 2024-11-04 Patient Goal - S OC 09/10/24: TO WALK AGAIN. TO GET RID OF CATHETER. Goal Patient Goal - S OC 09/10/24: TO WALK AGAIN. TO GET RID OF CATHETER. RECERT 11/04/24: NO UPDATES Goal Provider Goal - PATIENT/CAREGIVER WILL INDEPENDENTLY DEMONSTRATE HOW TO CHECK HIS/HER OWN BP AND VERBALIZE WHAT STRATEGIES CAN ASSIST TO CONTROL BLOOD PRESSURE. Goal Provider Goal - PATIENT WILL VERBALIZE TOLERANCE OF CATHETER CHANGE ON ONGOING BASIS OR UNTIL DISCHARGE. PATIENT/CAREGIVER DEMONSTRATES APPROPRIATE CATHETER MAINTENANCE AND FLUSHING. Goal Provider Goal - A PLAN OF CARE WILL BE ESTABLISHED THAT MEETS ALL PATIENT'S MCC NEEDS AND COUNTER SIGNED BY PHYSICIAN. Goal Provider Goal - PATIENT WILL BE [...] FROM ALTERNATE PHYSICIANS IN A TIMELY MANNER. Encounters Start Date/Time End Date/Time Encounter Type Admission Type Attending Clinicians Care Facility Care Department Encounter ID Discharge Date Discharge Status Discharge Condition Discharge Reason Percent Goals Met 2024-11-09 00:00:00 2025-01-07 00:00:00 Outpatient RECERTIFIC ATION [facility] [id number] 37.50
--- OUTSIDE RECORDS SUMMARY | 2025-01-06 18:00 | XMS_ITS | Clinical Summary ---
Author Organization Unknown Care Team Providers Care Caustic Operator Name Role Phone ALVAROJEANNA VAUGHN Unavailable Unavailable VEENA PHYSICAL THERAPIST, CHANG Unavailable Unavailable GILDA SPEECH THERAPIST, MS, CCC/ESTHETICS INSTRUCTOR, GALILEA Un available Unavailable WALESKA CAUSTIC OPERATOR, JUANITO Unavail able Unavailable VILLA OCCUPATIONAL THERAPIST, [...] OF URINARY DEVICE Active 02-09 00:00: 00 ORGANIC SECTION TECHNICAL LEAD (CURRENT) USE OF ASPIRIN Active 02-09 00:00: [...] 09-08 00:00: 00 09-26 23:59 :00 No [id number] HIGH BLOOD PRESSURE 1 tablet ONCE DAILY 1 tablet ONCE DAILY (route: oral) Med Classific ation: Cardiovas cular Therapy Agents aspirin 81 mg tablet,zoe yed release 09-08 00:00: 00 Yes [id number] CIRCULATION 1 tablet ONCE DAILY 1 tablet ONCE DAILY (route: oral) Med Classific ation: Hematolog ical Agents atorvastati n 20 mg tablet 09-08 00:00: 00 Yes [id number] HIGH CHOLESTEROL 1 tablet ONCE DAILY 1 tablet ONCE DAILY (route: oral) Med Classific ation: Cardiovas cular Therapy Agents benzonatate 100 mg capsule 09-08 00:00: 00 Yes [id number] COUGH 1 capsule EVERY 6 HOURS 1 capsule EVERY 6 HOURS (route: oral) Med Classific ation: Respirato ry Therapy Agents finasteride 5 mg tablet 09-08 00:00: 00 Yes [id number] URINE RETENTION 1 tablet ONCE DAILY 1 tablet ONCE DAILY (route: oral) Med Classific ation: Genitouri nary Therapy gabapentin 600 mg tablet 09-08 00:00: 00 Yes [id number] NEUROPATHY 1 tablet ONCE DAILY 1 tablet ONCE DAILY (route: oral) Med Classific ation: Central Nervous System Agents hydroxyzine HCl 25 mg tablet 09-08 00:00: 00 Yes [id number] ITCHING/ANX IETY 1 tablet EVERY 8 HOURS 1 tablet EVERY 8 HOURS (route: oral) Med Classific ation: Central Nervous System Agents Lasix 20 mg tablet 09-08 00:00: 00 09-26 23:59 :00 No [id number] FLUID RETENTION 1 tablet ONCE DAILY 1 tablet ONCE DAILY (route: oral) Med Classific ation: Cardiovas cular Therapy Agents lisinopril 20 mg tablet 09-08 00:00: 00 09-15 23:59 :00 No [id number] HIGH BLOOD PRESSURE 1 tablet ONCE DAILY 1 tablet ONCE DAILY (route: oral) Med Classific ation: Cardiovas cular Therapy Agents Percocet 5 mg-325 mg tablet 09-08 00:00: 00 Yes [id number] LOW BACK PAIN 1 tablet AT BEDTIME 1 tablet AT BEDTIME (route: oral) Med Classific ation: Analgesic , Anti-infl ammatory or Antipyret ic Tylenol Extra Strength 500 mg tablet 09-08 00:00: 00 Yes [id number] LOW BACK PAIN 2 tablet TWICE DAILY 2 tablet TWICE DAILY (route: oral) Med Classific ation: Analgesic , Anti-infl ammatory or Antipyret ic lisinopril 40 mg tablet 09-15 00:00: 00 09-26 23:59 :00 No [id number] HYPERTENSIO N 1 tablet ONCE DAILY 1 tablet ONCE DAILY (route: oral) Med Classific ation: Cardiovas cular Therapy Agents furosemide 40 mg tablet 09-26 00:00: 00 Yes [id number] FLUID RETENTION 1 tablet ONCE DAILY 1 tablet ONCE DAILY (route: oral) Med Classific ation: Cardiovas cular Therapy Agents losartan 50 mg tablet 09-26 00:00: 00 10-25 23:59 :00 No [id number] HIGH BP 1 tablet ONCE DAILY 1 tablet ONCE DAILY (route: oral) Med Classific ation: Cardiovas cular Therapy Agents Lasix 40 mg tablet 18 00:00: 00 Yes [id number] FLUID RETENTION 1 tablet ONCE DAILY 1 tablet ONCE DAILY (route: oral) Med Classific ation: Cardiovas cular Therapy Agents losartan 50 mg tablet 09-26 00:00: 00 10-25 23:59 :00 No [id number] FLUID RETENTION 1 tablet ONCE DAILY 1 tablet ONCE DAILY (route: oral) Med Classific ation: Cardiovas cular Therapy Agents bethanechol chloride 25 mg tablet 2024-02 0- 00:00: 00 Yes [id number] BLADDER EMPTYING 1 tablet TWICE DAILY 1 tablet TWICE DAILY (route: oral) Med Classific ation: Genitouri nary Therapy finasteride 5 mg tablet 2024-02 0 00:00: 00 Yes [id number] urinary symptoms 1 tablet ONCE DAILY 1 tablet ONCE DAILY (route: oral) Med Classific ation: Genitouri nary Therapy pantoprazol e 40 mg tablet,zoe yed release 2024-02 00:00: 00 01-12 23:59 :00 No [id number] ACID REFLUX 1 tablet EVERY PM 1 [...] CARE PLAN: DR. JEANNA JOSE, JENNIFER KUMAR, DONOR RELATIONS OFFICER; ANASTASIYA DENNEY, RENAN, MICHELLE MOCTEZUMA, SANGITA HAQUE [...] WILL BE ESTABLISHED THAT MEETS ALL PATIENT'S [facility] NEEDS AND COUNTER SIGNED BY PHYSICIAN. Goal [...] 2025-01-07 00:00:00 Outpatient RECERTIFIC ATION DONNIE GRAF [facility] [id number] 37.50
== END 2024-12-16 11:20 | disposition home or self-care (01) ==
LOC: ANHLAB 11:21
PROVIDERS: PCP Family Medicine Adolescent Medicine; Visit Provider Family Medicine Adolescent Medicine
DX: M54.50 Low back pain, unspecified (principal); I12.9 Hypertensive chronic kidney disease with stage 1 through stage 4 chronic kidney disease, or unspecified chronic kidney disease; N18.32 Chronic kidney disease, stage 3b
CPT/HCPCS: 36415; 80053; 85027